=== PATIENT | female | born 1990 | race Caucasian/White ===

== ENCOUNTER 2023-02-01 10:49 | Outpatient (OUT) | payer MEDICARE, MEDICAID, SELFPAY ==
--- NOTE | 2023-02-01 11:24 | PM.CN ---
Consult Note: HPI Data of Consult Patient: known to practice within the last 3 years Consult date: 02/01/23 Requesting Physician: ISELA MCLEOD NP Primary Care Provider: ISELA MCLEOD NP Consult Narrative Reason for consult: low back pain Narrative: Margaret is here for a f/u of low back pain. Had PE in 12/24. She is on Eliquis. Pain is bilat lower back worse with movement and standing. No radiculopathy. No new sensorimotor sx or bowel or bladder issues. No medication SE. We discussed the RFA procedure to lower area than done before. She would like to proceed with this. cc:: CC: ISELA MCLEOD NP Review of Systems ROS Status of ROS 10 or more systems reviewed and unremarkable except as noted in history and below Musculoskeletal Reports: back pain and limited range of motion Exam Constitutional: Common normals: no apparent distress, average body habitus, oriented x3, no limitations, healthy appearing, alert and well nourished General appearance: cooperative and comfortable Orientation/consciousness: Yes awake, Yes oriented to person, Yes oriented to place and Yes oriented to time Neck & C-Spine: Common normals: full ROM General: normal visual inspection Respiratory: Common normals: normal respiratory effort, no retractions and no use of accessory muscles Effort & inspection: able to speak in complete sentences Back & Pelvis: Common normals: thoracic and lumbar spine normal to inspection and straight leg raise negative bilaterally Thoracic spine/upper back: normal to inspection Lumbar spine/lower back: normal to inspection, paraspinal muscle tenderness, paraspinal muscle spasm and straight leg raise negative bilaterally Extremity: Common normals: normal to inspection, full ROM and normal capillary refill General: normal exam except as noted Other: positive facet loading bilat, positive yue bilat, muscle strength 5/5 bilat with intact sensation Psych: Common normals: mental status grossly normal Skin: Common normals: no rashes or lesions noted Assessment and Plan Assessment and Plan (1) Lumbar spondylosis: Plan schedule dx MBB bilat lumbar L4/5, L5/S1
== END 2023-02-01 10:50 ==
PROVIDERS: PCP Nurse Practitioner; Visit Provider Nurse Practitioner
DX: M47.816 Spondylosis without myelopathy or radiculopathy, lumbar region (principal)
CPT/HCPCS: G0463

== ENCOUNTER 2023-02-26 12:00 | Outpatient (OUT) | payer MEDICARE, MEDICAID, SELFPAY ==
--- NOTE | 2023-02-26 12:49 | PM.CN ---
Consult Note: HPI Data of Consult Patient: known to practice within the last 3 years Consult date: 02/26/23 Requesting Physician: Yancy Cancino MD Primary Care Provider: Yancy Cancino MD Consult Narrative Reason for consult: Low back pain Narrative: this is a pleasant 32-year-old female who presents for assessment. She has persistence of axial low back pain that is worsened with standing and walking. She previously had been scheduled for diagnostic bilateral L3, L4, L5 medial branch blocks, but she had a scheduling conflict, so this has not yet been completed. She utilizes Huntington 5 mg twice a day when necessary, and she previously was on gabapentin, which was helpful. She engages in provider directed home exercises. She otherwise denies adverse medication side effects or loss of bowel or bladder control. cc:: CC: Yancy Cancino MD Review of Systems ROS Status of ROS 10 or more systems reviewed and unremarkable except as noted in history and below PFSH PFS Medical History Surgical History Social History Smoking status: Current every day smoker Meds Home Medications and Allergies Home Medications Medication Instructions Recorded Confirmed Type apixaban 5 mg tablet (Eliquis) 5 mg PO BID 02/01/23 02/01/23 History atomoxetine 60 mg capsule 60 mg PO QDAY 02/01/23 02/01/23 History cyclobenzaprine 10 mg tablet 10 mg PO BID 02/01/23 02/01/23 History duloxetine 60 mg capsule,delayed 60 mg PO QDAY 02/01/23 02/01/23 History release (Cymbalta) gabapentin 300 mg capsule 300 mg PO BID 02/01/23 02/01/23 History hydrocodone 5 mg-acetaminophen 325 1 tab PO BID PRN pain 02/01/23 02/01/23 History mg tablet isosorbide mononitrate 10 mg tablet 15 mg PO QDAY 02/01/23 02/01/23 History lamotrigine 25 mg tablet (Lamictal) 25 mg PO QDAY 02/01/23 02/01/23 History metoprolol tartrate 50 mg tablet 50 mg PO BID 02/01/23 02/01/23 History (Lopressor) omeprazole 20 mg capsule,delayed 20 mg PO QDAY 02/01/23 02/01/23 History release pantoprazole 40 mg tablet,delayed 40 mg PO QDAY 02/01/23 02/01/23 History release (Protonix) prazosin 1 mg capsule (Minipress) 1 mg PO QDAY 02/01/23 02/01/23 History rimegepant 75 mg disintegrating 75 mg PO QDAY PRN migraine headache 02/01/23 02/01/23 History tablet (Nurtec ODT) spironolactone 25 mg tablet 25 mg PO QDAY 02/01/23 02/01/23 History sumatriptan succinate 50 mg tablet See Rx Instructions PO .COMPLEX 02/01/23 02/01/23 History Allergies Allergy/AdvReac Type Severity Reaction Status Date / Time amoxicillin Allergy Severe Unknown Verified 02/01/23 13:14 cefaclor [From Ceclor] Allergy Severe Unknown Verified 02/01/23 13:14 ciprofloxacin [From Cipro] Allergy Severe Hives Verified 02/01/23 13:14 Estrogens Allergy Severe Unknown Verified 02/01/23 13:14 Sulfa (Sulfonamide Allergy Severe Hives Verified 02/01/23 13:14 Antibiotics) tetanus and diphtheria Allergy Severe Unknown Verified 02/01/23 13:14 toxoids Exam Constitutional Common normals: no apparent distress, average body habitus, oriented x3, no limitations, healthy appearing, alert and well nourished General appearance: cooperative and comfortable Orientation/consciousness: Yes awake, Yes oriented to person, Yes oriented to place and Yes oriented to time Neck & C-Spine Common normals: full ROM General: normal visual inspection Respiratory Common normals: normal respiratory effort, no retractions and no use of accessory muscles Effort & inspection: able to speak in complete sentences Back & Pelvis Common normals: thoracic and lumbar spine normal to inspection and straight leg raise negative bilaterally Thoracic spine/upper back: normal to inspection Lumbar spine/lower back: normal to inspection, paraspinal muscle tenderness, paraspinal muscle spasm and straight leg raise negative bilaterally Other: tenderness to palpation throughout the lumbar spine and paraspinal muscular trip. Pain is elicited with flexion, extension, and lateral rotation of the lumbar spine. Facet loading maneuvers are positive bilaterally. Coordination remains intact. Gait remains nonantalgic. Extremity Common normals: normal to inspection, full ROM and normal capillary refill General: normal exam except as noted Other: positive facet loading bilat, positive yue bilat, muscle strength 5/5 bilat with intact sensation Psych Common normals: mental status grossly normal Assessment and Plan Assessment and Plan (1) Lumbar spondylosis: Plan this is a pleasant 32-year-old female who presents for assessment. She notes persistence of pain throughout her axial low backk that is worsened with standing and walking. She was previously scheduled for lumbar medial branch blocks, and we discussed that she should continue with this procedure. She is in agreement with this plan. Medications were reviewed. I agreed to prescribe Huntington 5 mg twice a day when necessary, and I will restart her on gabapentin 300 mg 3 times a day. She expressed understanding. She'll follow up after the procedure is completed.
== END 2023-02-26 12:01 | disposition home or self-care (01) ==
LOC: PM 12:00
PROVIDERS: PCP Anesthesiology; Visit Provider Anesthesiology
DX: M47.816 Spondylosis without myelopathy or radiculopathy, lumbar region (principal)
CPT/HCPCS: G0463

== ENCOUNTER 2023-03-12 06:36 | Day surgery (SDC) | payer MEDICARE, MEDICAID, SELFPAY ==
[2023-03-12 07:18] LABS: HCG Qualitative NEGATIVE (NEGATIVE)
[2023-03-12 07:42] VITALS: BP 148/91; PULSE 92; RESP 16; TEMP 36.2; O2SAT 97
[2023-03-12] MEDS: BUPIVACAINE HCL 0.25% PF 25 MG/10 ML VIAL INJ (08:22)
[2023-03-12] MEDS: LIDOCAINE HCL 2% PF 100 MG/5 ML VIAL INJ (08:23)
[2023-03-12] MEDS: TRIAMCINOLONE ACETONIDE 40 MG/ML VIAL INJ (08:23)
--- NOTE | 2023-03-12 08:26 | W.PM.PROCNOT ---
Date of procedure: 03/12/23 Pre-op diagnosis: Lumbosacral spondylosis Post-op diagnosis: same Procedure: Procedure: Bilateral L4-5, L5-S1 medial branch block Medications: Bupivacaine 0.25% 4cc The patient was seen and examined in the preoperative holding area.? An informed consent was obtained and placed on the chart.? The patient was brought to the medical procedure unit and placed in the prone position.? A timeout was completed verifying correct patient, procedure site, positioning, plan, and special equipment.? Using aseptic technique, the needle was placed at left L4. Under direct fluoroscopic visualization a Quincke-tipped spinal needle was advanced to the junction of the superior articulating process with the transverse process at the designated medial branch segment.? Preceded by negative aspiration, the above-mentioned injectate was placed in 1 mL aliquots.? The procedure was repeated at left L5, S1.? The needle was removed and insertion site was covered. The same procedure, at the same levels, was completed on the right side. The patient was taken to the postprocedural recovery area and monitored for an appropriate length of time before found suitable for discharge in the company of a responsible adult. Anesthesia: None Surgeon: Yancy Cancino Pathology: none sent Condition: stable Disposition: no change
[2023-03-12 09:17] VITALS: BP 152/75; BP 154/81; PULSE 88; RESP 18; O2SAT 97; O2SAT 98
== END 2023-03-12 08:30 | disposition home or self-care (01) ==
LOC: SURGOUT 06:37
PROVIDERS: PCP Anesthesiology; Visit Provider Anesthesiology
DX: M47.816 Spondylosis without myelopathy or radiculopathy, lumbar region (principal); R73.03 Prediabetes; E55.9 Vitamin D deficiency, unspecified
CPT/HCPCS: 36415; 64493; 64494; 80053; 80061; 82306; 83036; 83735; 84703; 85025

== ENCOUNTER 2023-03-12 06:37 | Outpatient (OUT) | payer MEDICARE, MEDICAID, SELFPAY ==
[2023-03-12 07:37] LABS: Alanine Aminotransferase 25 U/L (14-59); Albumin Globulin Ratio 0.6; Albumin Level 2.7 g/dL (3.4-5.0); Alkaline Phosphatase 71 U/L (46-116); Anion Gap 10.5; Aspartate Amino Transferase 11 U/L (15-37); BUN Creatinine Ratio 9.4; Bilirubin Total 0.2 mg/dL (0.2-1.0); Calcium 8.4 mg/dL (8.5-10.1); Carbon Dioxide 28.3 mmol/L (21.0-32.0); Chloride 104 mmol/L (98-107); Estimated GFR (African America >60 (>=60); Estimated GFR (Non-African Ame >60 (>=60); Globulin 4.4 g/dL; Glucose 122 mg/dL (74-106); Potassium 3.8 mmol/L (3.5-5.1); Sodium 139 mmol/L (136-145); Total Protein 7.1 g/dL (6.4-8.2)
[2023-03-12 09:30] LABS: Estimated Average Glucose 114 mg/dL; Glycohemoglobin A1C 5.6 % (4.5-6.2)
[2023-03-12 11:24] LABS: Chol HDL Ratio 5.7; Cholesterol 172 mg/dL (<=200); HDL Cholesterol 30 mg/dL (40-60); Magnesium 1.9 mg/dL (1.8-2.4); Triglycerides 136 mg/dL (<=150); VLDL CHOLESTEROL 27.2 mg/dL
[2023-03-12 11:33] LABS: Basophils Percent Auto 0.5 % (0.2-2.0); Eosinophils Absolute Auto 0.2 10^3/uL (0.0-0.7); Eosinophils Percent Auto 2.8 % (0.9-7.0); Hematocrit 42.6 % (36.0-48.0); Hemoglobin 13.4 g/dL (12.0-16.0); Immature Granulocytes Abs Auto 0.04 10^3/uL (0.00-0.03); Immature Granulocytes Pct Auto 0.5 % (0.0-0.5); Lymphocytes Absolute Auto 1.8 10^3/uL (1.2-3.8); Lymphocytes Percent Auto 22.8 % (20.5-60.0); Mean Corpuscular HGB Conc 31.5 g/dL (29.9-35.2); Mean Corpuscular Volume 79.5 fL (81.0-99.0); Mean Platelet Volume 9.6 fL (9.5-13.5); Monocytes Absolute Auto 0.5 10^3/uL (0.3-0.8); Monocytes Percent Auto 5.8 % (1.7-12.0); Neutrophils Absolute Auto 5.4 10^3/uL (1.4-6.5); Neutrophils Percent Auto 67.6 % (43.0-75.0); Platelet Count 337 10^3/uL (150-450); Red Blood Count 5.36 10^6/uL (4.20-5.40); Red Cell Distribution Width 14.9 % (11.0-15.0); White Blood Count 7.9 10^3/uL (4.0-11.0)
== END 2023-03-12 06:38 | disposition home or self-care (01) ==
LOC: LAB 06:40
PROVIDERS: PCP Nurse Practitioner Primary Care; Visit Provider Nurse Practitioner Primary Care
DX: R73.03 Prediabetes (principal); E55.9 Vitamin D deficiency, unspecified
CPT/HCPCS: 36415; 80053; 80061; 82306; 83036; 83735; 85025

== ENCOUNTER 2023-03-22 12:22 | Outpatient (OUT) | payer MEDICARE, MEDICAID, SELFPAY ==
--- NOTE | 2023-03-22 12:25 | PM.CN ---
Consult Note: HPI Data of Consult Patient: known to practice within the last 3 years Consult date: 03/22/23 Requesting Physician: ISELA MCLEOD NP Primary Care Provider: CHERRI THOMPSON Consult Narrative Narrative: Patient is here for f/u of initial bilateral lumbar MBB L3,4,5 mejia 03/12/23. She had 100% relief for several hours after procedure and increased fx. She would like to proceed with second dx MBB of same area with eventual RFA. She also resumed gabapentin and feels this is helping. Also seeing PCP and working on weight loss. Has had 20 pound intentional weight loss so far. Pain is bilat lumbar area with no radicular sx . Denies adverse SE of medications. Medication regimen assists patient with being better able to perform ADLS. No new sensorimotor or bowel or bladder issues. cc:: CC: ISELA MCLEOD NP Review of Systems ROS Status of ROS 10 or more systems reviewed and unremarkable except as noted in history and below Musculoskeletal Reports: back pain PFSH PFSH Medical History Surgical History Social History Smoking status: Current every day smoker Meds Home Medications and Allergies Home Medications Medication Instructions Recorded Confirmed Type apixaban 5 mg tablet (Eliquis) 5 mg PO BID 02/01/23 03/12/23 History atomoxetine 60 mg capsule 60 mg PO QDAY 02/01/23 03/12/23 History cyclobenzaprine 10 mg tablet 10 mg PO BID 02/01/23 02/01/23 History duloxetine 60 mg capsule,delayed 60 mg PO QDAY 02/01/23 03/12/23 History release (Cymbalta) gabapentin 300 mg capsule 300 mg PO Q8H 02/01/23 02/26/23 History hydrocodone 5 mg-acetaminophen 325 1 tab PO BID PRN pain 02/01/23 03/12/23 History mg tablet isosorbide mononitrate 10 mg tablet 15 mg PO QDAY 02/01/23 03/12/23 History lamotrigine 25 mg tablet (Lamictal) 25 mg PO QDAY 02/01/23 03/12/23 History metoprolol tartrate 50 mg tablet 50 mg PO BID 02/01/23 03/12/23 History (Lopressor) omeprazole 20 mg capsule,delayed 20 mg PO QDAY 02/01/23 02/01/23 History release pantoprazole 40 mg tablet,delayed 40 mg PO QDAY 02/01/23 03/12/23 History release (Protonix) prazosin 1 mg capsule (Minipress) 1 mg PO QDAY 02/01/23 03/12/23 History rimegepant 75 mg disintegrating 75 mg PO QDAY PRN migraine headache 02/01/23 02/01/23 History tablet (Nurtec ODT) spironolactone 25 mg tablet 25 mg PO QDAY 02/01/23 03/12/23 History sumatriptan succinate 50 mg tablet See Rx Instructions PO .COMPLEX 02/01/23 03/12/23 History Allergies Allergy/AdvReac Type Severity Reaction Status Date / Time amoxicillin Allergy Severe Unknown Verified 02/01/23 13:14 cefaclor [From Ceclor] Allergy Severe Unknown Verified 02/01/23 13:14 ciprofloxacin [From Cipro] Allergy Severe Hives Verified 02/01/23 13:14 Estrogens Allergy Severe Unknown Verified 02/01/23 13:14 Sulfa (Sulfonamide Allergy Severe Hives Verified 02/01/23 13:14 Antibiotics) tetanus and diphtheria Allergy Severe Unknown Verified 02/01/23 13:14 toxoids Exam Constitutional Documenting provider has reviewed patient's vital signs: yes Common normals: no apparent distress, oriented x3, no limitations, healthy appearing, alert and well nourished General appearance: cooperative, comfortable and well developed Nutritional appearance: overweight Orientation/consciousness: Yes awake, Yes oriented to person, Yes oriented to place and Yes oriented to time HENMT Common normals: normocephalic and moist oral mucous membranes Respiratory Common normals: normal respiratory effort, no retractions and no use of accessory muscles Effort & inspection: able to speak in complete sentences and symmetric chest movement Back & Pelvis Lumbar spine/lower back: normal to inspection, ROM limited, pain with ROM, paraspinal muscle tenderness, paraspinal muscle spasm and straight leg raise negative bilaterally Other: positive lumbar facet loading pain bilat muscle strength 5/5 bilat with intact sensation bilat LE Extremity Common normals: normal to inspection, full ROM, normal capillary refill, no joint enlargement and no pedal edema Assessment and Plan Assessment and Plan (1) Lumbar spondylosis: (2) Muscle spasm: Plan schedule for second dx lumbar MBB bilat L3,4,5 under fluoroscopy with ultimate progression to thermal RFA
== END 2023-03-22 12:23 | disposition home or self-care (01) ==
LOC: PM 12:22
PROVIDERS: PCP Nurse Practitioner Primary Care; Visit Provider Nurse Practitioner
DX: M47.816 Spondylosis without myelopathy or radiculopathy, lumbar region (principal); M62.838 Other muscle spasm
CPT/HCPCS: G0463

== ENCOUNTER 2023-05-28 06:05 | Day surgery (SDC) | payer MEDICARE, MEDICAID, SELFPAY ==
[2023-05-28 06:56] VITALS: BP 140/83; PULSE 90; RESP 16; TEMP 36; O2SAT 97
[2023-05-28 07:34] LABS: HCG Qualitative NEGATIVE (NEGATIVE)
[2023-05-28] MEDS: TRIAMCINOLONE ACETONIDE 40 MG/ML VIAL INJ (07:49)
[2023-05-28] MEDS: BUPIVACAINE HCL 0.25% PF 25 MG/10 ML VIAL INJ (07:49)
[2023-05-28] MEDS: LIDOCAINE HCL 2% PF 100 MG/5 ML VIAL INJ (07:49)
[2023-05-28 07:51] VITALS: BP 131/74; BP 139/76; PULSE 80; PULSE 85; RESP 18; O2SAT 97; O2SAT 98
--- NOTE | 2023-05-28 07:52 | W.PM.PROCNOT ---
Date of procedure: 05/28/23 Pre-op diagnosis: lumbar spondylosis Post-op diagnosis: same as pre-op Procedure: Procedure: Bilateral L4-5, L5-S1 medial branch block (bilateral L3, 4, 5) Medications: Bupivacaine 0.25% 4cc The patient was seen and examined in the preoperative holding area.? An informed consent was obtained and placed on the chart.? The patient was brought to the medical procedure unit and placed in the prone position.? A timeout was completed verifying correct patient, procedure site, positioning, plan, and special equipment.? Using aseptic technique, the needle was placed at left L4. Under direct fluoroscopic visualization a Quincke-tipped spinal needle was advanced to the junction of the superior articulating process with the transverse process at the designated medial branch segment.? Preceded by negative aspiration, the above-mentioned injectate was placed in 1 mL aliquots.? The procedure was repeated at left L5, S1.? The needle was removed and insertion site was covered. The same procedure, at the same levels, was completed on the right side. The patient was taken to the postprocedural recovery area and monitored for an appropriate length of time before found suitable for discharge in the company of a responsible adult. Anesthesia: Local Surgeon: Yancy Cancino Pathology: none sent Condition: stable Disposition: no change
== END 2023-05-28 07:56 | disposition home or self-care (01) ==
PROVIDERS: PCP Nurse Practitioner Primary Care; Visit Provider Anesthesiology
DX: M47.816 Spondylosis without myelopathy or radiculopathy, lumbar region (principal)
CPT/HCPCS: 36415; 64493; 64494; 84703

== ENCOUNTER 2023-06-13 12:04 | Outpatient (OUT) | payer MEDICARE, MEDICAID, SELFPAY ==
--- NOTE | 2023-06-13 12:07 | P.CN_ITS ---
Consult Note: HPI Data of Consult Requesting Physician: Brenda Gonzalez NP Primary Care Provider: ABBY BYNUM APRN-[employer]ING [employer] Consult Narrative Reason for consult: f/u Narrative: Margaret Grullon a pleasant 32 year old female presents for evaluation and management of chronic low back pain. Patient recently underwent bilateral L4-5 L5-S1 (L3, 4, 5) MBB #2 with 80-90% pain relief and functional improvement immediately following and 5-6 hours after the procedure. Today rating pain 8- 9/10 in low back. Patient would like to discuss proceeding with thermal RFA of bilateral L4-5 L5-S1. cc:: CC: Brenda Gonzalez NP Review of Systems ROS Status of ROS 10 or more systems reviewed and unremarkable except as noted in history and below Musculoskeletal Reports: back pain PFSH PFSH Medical History Surgical History H/O partial thyroidectomy ?E89.0 - Postprocedural hypothyroidism (ICD-10) History of appendectomy ?Z90.49 - Acquired absence of other specified parts of digestive tract (ICD- 10) Hx of cholecystectomy ?Z90.49 - Acquired absence of other specified parts of digestive tract (ICD- 10) Hx of tonsillectomy ?Z90.89 - Acquired absence of other organs (ICD-10) [place] teeth extracted ?K08.409 - Partial loss of teeth, unspecified cause, unspecified class (ICD- 10) Social History Smoking status: Current every day smoker Meds Home Medications and Allergies Home Medications Medication Instructions Recorded Confirmed Type apixaban 5 mg tablet (Eliquis) 5 mg PO BID 02/01/23 05/28/23 History atomoxetine 60 mg capsule 60 mg PO QDAY 02/01/23 05/28/23 History cyclobenzaprine 10 mg tablet 10 mg PO BID 02/01/23 05/28/23 History duloxetine 60 mg capsule,delayed 60 mg PO QDAY 02/01/23 05/28/23 History release (Cymbalta) gabapentin 300 mg capsule 300 mg PO Q8H 02/01/23 05/28/23 History hydrocodone 5 mg-acetaminophen 325 1 tab PO BID PRN pain 02/01/23 05/28/23 History mg tablet isosorbide mononitrate 10 mg tablet 15 mg PO QDAY 02/01/23 05/28/23 History lamotrigine 25 mg tablet (Lamictal) 25 mg PO QDAY 02/01/23 05/28/23 History metoprolol tartrate 50 mg tablet 50 mg PO BID 02/01/23 05/28/23 History (Lopressor) omeprazole 20 mg capsule,delayed 20 mg PO QDAY 02/01/23 05/28/23 History release prazosin 1 mg capsule (Minipress) 1 mg PO QDAY 02/01/23 05/28/23 History rimegepant 75 mg disintegrating 75 mg PO QDAY PRN migraine headache 02/01/23 05/28/23 History tablet (Nurtec ODT) spironolactone 25 mg tablet 25 mg PO QDAY 02/01/23 05/28/23 History sumatriptan succinate 50 mg tablet See Rx Instructions PO .COMPLEX 02/01/23 05/28/23 History Allergies Allergy/AdvReac Type Severity Reaction Status Date / Time amoxicillin Allergy Severe Unknown Verified 02/01/23 13:14 cefaclor [From Ceclor] Allergy Severe Unknown Verified 02/01/23 13:14 ciprofloxacin [From Cipro] Allergy Severe Hives Verified 02/01/23 13:14 Estrogens Allergy Severe Unknown Verified 02/01/23 13:14 Sulfa (Sulfonamide Allergy Severe Hives Verified 02/01/23 13:14 Antibiotics) tetanus and diphtheria Allergy Severe Unknown Verified 02/01/23 13:14 toxoids Exam Constitutional Documenting provider has reviewed patient's vital signs: yes Common normals: no apparent distress, oriented x3, no limitations, healthy appearing, alert and well nourished General appearance: cooperative, comfortable and well developed Nutritional appearance: obese Orientation/consciousness: Yes awake, Yes oriented to person, Yes oriented to place and Yes oriented to time HENMT Common normals: normocephalic and moist oral mucous membranes Respiratory Common normals: normal respiratory effort, no retractions and no use of accessory muscles Effort & inspection: able to speak in complete sentences and symmetric chest movement Back & Pelvis Lumbar spine/lower back: normal to inspection, ROM limited, pain with ROM, paraspinal muscle tenderness, paraspinal muscle spasm and straight leg raise negative bilaterally Other: positive lumbar facet loading pain bilat muscle strength 5/5 bilat with intact sensation bilat LE Extremity Common normals: normal to inspection, full ROM, normal capillary refill, no joint enlargement and no pedal edema Assessment and Plan Assessment and Plan (1) Lumbar spondylosis: Assessment and Plan: The patient has had over 3 months of moderate to severe low back pain with functional impairment and inadequate response to conservative care including NSAIDS (unless there are contraindication such as concurrent blood thinners), multiple oral or topical pain medications, and home exercise program/physical therapy.? Patient has completed >6 weeks of guided home exercise program and/or formal physical therapy program without relief of their symptoms.? We discussed the risks and benefits of the procedure with the patient, and we are NOT planning on using sedation as outlined in the guidelines from Medicare unless there is a documented reason that sedation would be strongly recommended.?? The procedure will be completed with fluoroscopic guidance.? (2) Muscle spasm: Plan proceed with bilateral thermal L3,4,5 RFA under fluoroscopy continue HEP continue current medication regimen f/u 1 month after RFA
== END 2023-06-13 12:05 | disposition home or self-care (01) ==
LOC: PM 12:04
PROVIDERS: PCP Nurse Practitioner Primary Care; Visit Provider Nurse Practitioner
DX: M47.816 Spondylosis without myelopathy or radiculopathy, lumbar region (principal); M62.838 Other muscle spasm
CPT/HCPCS: G0463

== ENCOUNTER 2023-06-25 07:11 | Day surgery (SDC) | payer MEDICARE, MEDICAID, SELFPAY ==
[2023-06-25 07:34] LABS: HCG Qualitative NEGATIVE (NEGATIVE)
[2023-06-25 07:58] VITALS: BP 170/89; PULSE 99; RESP 16; TEMP 36.1; O2SAT 97
[2023-06-25 08:46] VITALS: BP 179/80; PULSE 88; RESP 16; O2SAT 98
[2023-06-25] MEDS: BUPIVACAINE HCL 0.25% PF 25 MG/10 ML VIAL INJ (08:51)
[2023-06-25] MEDS: LIDOCAINE HCL 2% 400 MG/20 ML MDV 15 ML INJ (08:51)
[2023-06-25] MEDS: TRIAMCINOLONE ACETONIDE 40 MG/ML VIAL INJ (08:52)
[2023-06-25 08:53] VITALS: BP 174/89; PULSE 88; RESP 18; O2SAT 96
--- NOTE | 2023-06-25 09:02 | P.ON_ITS ---
Date of procedure: 06/25/23 Pre-op diagnosis: Lumbar spondylosis Post-op diagnosis: same as pre-op Procedure: Procedure: Bilateral L4-5, L5-S1 (bilateral L3, 4, 5) radiofrequency ablation Medications: Bupivacaine 0.25% 6cc, lidocaine 2% 5cc, kenalog 80mg The patient was seen and examined in the preoperative holding area.? The site was marked.? Written informed consent was obtained and placed on the chart.? The patient was brought to the medical procedure unit and placed in the prone position.? A timeout was completed verifying correct patient, procedure, positioning, and special requirements.? The skin overlying the target points, the designated medial branch, were prepped and draped in the usual sterile fashion.? The target point was achieved with a 20-gauge 15 cm with a 10 mm curved active tip radiofrequency cannula under direct fluoroscopic visualization.? The needle was inserted at level L4 on the right side. Needle tip position was confirmed with lateral fluoroscopic position.? Motor stimulation was carried out at 2 Hz up to 5 volts with the absence of extremity activity.? This was repeated at level L5, S1 on right side.?? Sensory stimulation was carried out.? Concordant pain was realized at the above- mentioned sites.? Then radiofrequency lesioning was carried out times 90 seconds at 80 degrees times 2 lesions at each level.? The radiofrequency probe was removed prior to cannula removal.? The above-mentioned injectate was placed in 1 mL increments.? The needle was removed. The same procedure, with the same steps, was then completed on the left side at the same levels. Insertion sites were covered.? The patient was taken to the postoperative recovery area and monitored for an appropriate length of time before being found suitable for discharge in the company of a responsible adult. Anesthesia: Local Surgeon: Yancy Cancino Pathology: none sent Condition: stable Disposition: no change
== END 2023-06-25 09:05 | disposition home or self-care (01) ==
PROVIDERS: PCP Nurse Practitioner Primary Care; Visit Provider Anesthesiology
DX: M47.816 Spondylosis without myelopathy or radiculopathy, lumbar region (principal)
CPT/HCPCS: 36415; 64635; 64636; 84703; J1100

== ENCOUNTER 2023-08-02 14:58 | Outpatient (OUT) | payer MEDICARE, MEDICAID, SELFPAY ==
--- NOTE | 2023-08-02 15:23 | P.CN_ITS ---
Consult Note: HPI Data of Consult Patient: known to practice within the last 3 years Requesting Physician: Brenda Gonzalez NP Primary Care Provider: ABBY BYNUM APRN-DAVID Consult Narrative Reason for consult: f/u Narrative: Margaret Grullon a pleasant 32 year old female presents for evaluation and management of chronic low back pain. Patient recently underwent bilateral L4-5 L5-S1 (L3, 4, 5) thermal RFA with 60% ongoing pain relief. Continues to have muscle tightness and superficial pain in low back today 02/10. Patient has not been able to tolerate taking medications regularly due to ongoing stomach issues (nausea/vomiting/reflux) cc:: CC: Brenda Gonzalez NP Review of Systems ROS Status of ROS 10 or more systems reviewed and unremarkable except as noted in history and below Gastrointestinal Reports: nausea, vomiting and heartburn Musculoskeletal Reports: back pain and muscle cramps PFSH PFSH Medical History Surgical History H/O partial thyroidectomy ?E89.0 - Postprocedural hypothyroidism (ICD-10) History of appendectomy ?Z90.49 - Acquired absence of other specified parts of digestive tract (ICD- 10) Hx of cholecystectomy ?Z90.49 - Acquired absence of other specified parts of digestive tract (ICD- 10) Hx of tonsillectomy ?Z90.89 - Acquired absence of other organs (ICD-10) [place] teeth extracted ?K08.409 - Partial loss of teeth, unspecified cause, unspecified class (ICD- 10) Social History Smoking status: Current every day smoker Meds Home Medications and Allergies Home Medications Medication Instructions Recorded Confirmed Type apixaban 5 mg tablet (Eliquis) 5 mg PO BID 02/01/23 06/25/23 History atomoxetine 60 mg capsule 60 mg PO QDAY 02/01/23 06/25/23 History cyclobenzaprine 10 mg tablet 10 mg PO BID 02/01/23 06/25/23 History duloxetine 60 mg capsule,delayed 60 mg PO QDAY 02/01/23 06/25/23 History release (Cymbalta) gabapentin 300 mg capsule 300 mg PO Q8H 02/01/23 06/25/23 History hydrocodone 5 mg-acetaminophen 325 1 tab PO BID PRN pain 02/01/23 06/25/23 History mg tablet isosorbide mononitrate 10 mg tablet 15 mg PO QDAY 02/01/23 06/25/23 History lamotrigine 25 mg tablet (Lamictal) 25 mg PO QDAY 02/01/23 06/25/23 History metoprolol tartrate 50 mg tablet 50 mg PO BID 02/01/23 06/25/23 History (Lopressor) omeprazole 20 mg capsule,delayed 20 mg PO QDAY 02/01/23 06/25/23 History release prazosin 1 mg capsule (Minipress) 1 mg PO QDAY 02/01/23 06/25/23 History rimegepant 75 mg disintegrating 75 mg PO QDAY PRN migraine headache 02/01/23 06/25/23 History tablet (Nurtec ODT) spironolactone 25 mg tablet 25 mg PO QDAY 02/01/23 06/25/23 History sumatriptan succinate 50 mg tablet See Rx Instructions PO .COMPLEX 02/01/23 06/25/23 History Allergies Allergy/AdvReac Type Severity Reaction Status Date / Time amoxicillin Allergy Severe Unknown Verified 06/25/23 08:05 cefaclor [From Ceclor] Allergy Severe Unknown Verified 06/25/23 08:05 ciprofloxacin [From Cipro] Allergy Severe Hives Verified 06/25/23 08:05 Estrogens Allergy Severe Unknown Verified 06/25/23 08:05 Sulfa (Sulfonamide Allergy Severe Hives Verified 06/25/23 08:05 Antibiotics) tetanus and diphtheria Allergy Severe Unknown Verified 06/25/23 08:05 toxoids Exam Constitutional Documenting provider has reviewed patient's vital signs: yes Common normals: no apparent distress, oriented x3, no limitations, healthy appearing, alert and well nourished General appearance: cooperative, comfortable and well developed Nutritional appearance: obese Orientation/consciousness: Yes awake, Yes oriented to person, Yes oriented to place and Yes oriented to time HENMT Common normals: normocephalic and moist oral mucous membranes Respiratory Common normals: normal respiratory effort, no retractions and no use of accessory muscles Effort & inspection: able to speak in complete sentences and symmetric chest movement Back & Pelvis Lumbar spine/lower back: normal to inspection, ROM limited, pain with ROM, paraspinal muscle tenderness and straight leg raise negative bilaterally Other: positive lumbar facet loading pain bilat muscle strength 5/5 bilat with intact sensation bilat LE Extremity Common normals: normal to inspection, full ROM, normal capillary refill, no joint enlargement and no pedal edema Assessment and Plan Assessment and Plan (1) Lumbar spondylosis: (2) Muscle spasm: Plan continue current medications as tolerated continue HEP start tens unit to low back f/u with GI specialist for ongoing issues f/u 1 month
== END 2023-08-02 14:59 | disposition home or self-care (01) ==
LOC: PM 15:01
PROVIDERS: PCP Nurse Practitioner Primary Care; Visit Provider Nurse Practitioner
DX: M47.816 Spondylosis without myelopathy or radiculopathy, lumbar region (principal); M62.838 Other muscle spasm
CPT/HCPCS: G0463

== ENCOUNTER 2023-09-06 10:59 | Outpatient (OUT) | payer MEDICARE, MEDICAID, SELFPAY ==
--- OUTSIDE RECORDS SUMMARY | 2023-09-06 11:07 | XMS_ITS | CCD ---
Author Name Unknown Address [address] [place] [address] Organization [facility] Care Team Providers Care Hair Blender Name Role Phone Elizabeth Terrell Primary Care Provider SANTIAGO HOLGUIN Admitting Unavailable ELIZABETH TERRELL Referring Unavailable ELIZABETH TERRELL Primary Care Unavailable SANTIAGO HOLGUIN Attending Unavailable ELIZABETH TERRELL Primary Care Unavailable SANTIAGO HOLGUIN Attending Unavailable MD John Mack Attending Provider [phone] BRIAN Flanagan Primary Care Provider DO Dominique Garrison Attending Provider [phone] Mack, John Attending Unavailable Pam Flanagan Primary Care Unavailable Mack, John Admitting Unavailable Mack, John Attending Unavailable Mack, John Admitting Unavailable Pam Flanagan Primary Care Unavailable Mack, John Attending Unavailable Mack, John Admitting Unavailable Pam Flanagan Primary Care Unavailable Mack, John Attending Unavailable Mack, John Admitting Unavailable Pam Flanagan Primary Care Unavailable Mack, John Admitting Unavailable Mack, John Attending Unavailable Pam Flanagan Primary Care Unavailable Mack, John Attending Unavailable Pam Flanagan Primary Care Unavailable Mack, John Admitting Unavailable Dominique Garrison Attending Unavailable Dominique Garrison Admitting Unavailable Pam Flanagan Primary Care Unavailable Mack, John Attending Unavailable Mack, John Admitting Unavailable Pam Flanagan Primary Care Unavailable Mack, John Attending Unavailable Pam Flanagan Primary Care Unavailable Mack, John Admitting Unavailable [facility] Primary Care Unava ilmello KAPOOR ., DR KACEY Gray Admitting Unavailable ANTWON ., DR KACEY Gray Consulting Unavailable ANTWON ., DR KACEY Gray Attending Unavailable KAPOOR ., DR KACEY Gray Admitting Unavailable CERVANTES ., ACE Consulting Unavailable [facility] Unavailable KAPOOR ., DR KACEY Gray Attending Unavailable [facility] Unavailable CERVANTES ., ACE Consulting Unavailable KAPOOR ., DR KACEY Gray Admitting Unavailable [place] ., DR KACEY Gray Attending Unavailable SHAMMO, WICHITA Primary Care Unavailable LAKSHMIPATHY ., NARENDRANATH Attending Norma vailable LAKSHMIPATHY ., NARENDRANATH Admitting Norma vailable KAPOOR ., DR KACEY Gray Admitting Unavailable SHAMMO, NIKOLAS Primary Care Unavailable CERVANTES ., ACE Consulting Unavailable [place] ., DR KACEY Gray Attending Unavailable SHAMMO, NIKOLAS Admitting Unavailable SHAMMO, WICHITA Primary Care Unavailable SHAMMO, NIKOLAS Attending Unavailable [facility] Unava ilable CERVANTES ., ACE Attending Unavailable CERVANTES ., ACE Admitting Unavailable WEST, DR KATYA Rabago Consulting Unavailable CERVANTES ., ACE Consulting Unavailable SHAMMO, NIKOLAS Admitting Unavailable SHAMMO, NIKOLAS Primary Care Unavailable SHAMMO, NIKOLAS Consulting Unavailable SHAMMO, NIKOLAS Attending Unavailable SHAMMO, NIKOLAS Primary Care Unavailable [place], [place] Consulting Unavailable [place] Attending Unavailable [place] Admitting Unavailable SHAMMO, NIKOLAS Primary Care Unavailable TRAN, DR NATHAN Linda Consulting Unavailabl e TRAN, DR NATHAN Linda Attending Unavailabl e TRAN, DR NATHAN Linda Admitting Unavailabl e DIANN, DR SANIA Khanna Consulting Unavailable MICHELE ., DELONTE Attending Unavailable [facility] Unava ilable MICHELE ., DELONTE Admitting Unavailable RANI .CHINYERE Consulting Unavailabl e DEREK MIRELES Consulting Unavailable K[place]OR ., DR KACEY Gray Attending Unavailable [facility] Unava ilable CERVANTES ., ACE Consulting Unavailable [place] ., DR KACEY Gray Admitting Unavailable Barak CORTES, Yancy Cunningham Attending Unavailable Barak CORTES, Yancy Cunningham Attending Unavailable Barak CORTES, Yancy Cunningham Attending Unavailable Barak CORTES, Yancy Cunningham Attending Unavailable Allergies Allergy Classification Reported Allergen(s) Allergy Type Date of Onset Reaction(s) Facility (4 sources) Allopurinol; Translations: [ALLOPURINOL] Drug Allergy 05-12-20 [facility] (7 sources) Amoxicillin; Translations: [AMOXICILLIN] Drug Allergy 02-29-20 16 Hives [facility] (7 sources) Cefaclor; Translations: [CEFACLOR] Drug Allergy 04-28-20 13 Hives, Other (See Comments) [facility] (2 sources) Ciprofloxacin; Translations: [CIPROFLOXACIN] Drug Allergy 06-03-20 [facility] (4 sources) Estrogens; Translations: [ESTROGENS] Drug Allergy 01-29-20 15 Other (See Comments) [facility] (2 sources) Penicillins; Translations: [PENICILLINS] Propensity to adverse reactions to drug 02-15-20 13 Hives, Rash [facility] (2 sources) Sulfonamides (Antibiotic); Translations: [SULFA (SULFONAMIDE ANTIBIOTICS)] Propensity to adverse reactions to drug 06-03-20 [facility] (5 sources) Sulfamethoxazole Drug Allergy 02-01-20 22 [facility] (5 sources) Trimethoprim Drug Allergy 02-01-20 [facility] (5 sources) DPT Allergy to substance 02-01-20 Redness of Skin [facility] (5 sources) surgical kory Allergy to substance 02-01-20 [facility] (5 sources) hormones Propensity to adverse reactions 02-01-20 will cause blood clots [facility] (2 sources) Amoxicillin Drug Allergy [facility] (2 sources) Cefaclor Drug Allergy [facility] (2 sources) Ciprofloxacin Drug Allergy 09-03-19 [facility] (2 sources) Sulfonamides (Antibiotic) Drug allergy (disorder) 09-03-19 [facility] Medications Current Medications Medication Drug Class(es) Dates Sig (Normalized) Sig (Original) acetaminophen 325 mg / HYDROcodone bitartrate 5 mg oral tablet (20 sources) Opioid Agonist Start: 04-10-2022 take 1 tablet by mouth every six hours Hydrocodone-Aceta minophen Active 1 TAB PO Q6H 30 03April 10, 2022 Start: 04-10-2022 take 1 tablet by christina th every six hours Hydrocodone-Acetaminophen Active 1 TAB P O Q6H 28 April 10, 2022 Start: 04-10-2022 take 1 tablet by christina th every six hours Hydrocodone-Acetaminophen Active 1 TAB P O Q6H 30 03April 10, 2022 Start: 02-13-2022 End: 04-10-2022 take 1 tablet by mouth every six hours Hydrocodone-Acetaminophen Discontinued 1 TAB PO Q6H 30 03March 13, 2022 April 10, 2022 12:38pm Start: 01-31-2022 take 1 tablet by christina th twice daily Hydrocodone-Acetaminophen Active 1 TAB P O Twice daily January 30, 2022 11:00pm Start: 07-20-2020 take 1 tablet by christina th twice daily as needed HYDROcodone-acetaminophen (NORCO) 5-325 mg per tablet TAKE 1 TABLET BY MOUTH TWICE DAILY NEEDED MUST LAST 30 DAYS 0 07/20/2020 Active atomoxetine 60 mg oral capsule (5 sources) Norepinephrine Reuptake Inhibitor Start: 01-31-2022 take 60 mg by mouth once daily in the morning Atomoxetine Active 60 MG PO Every morning January 30, 2022 11:00pm baclofen 10 mg oral tablet (5 sources) gamma-Aminobutyric Acid-ergic Agonist Start: 01-31-2022 take 10 mg by mouth once daily at bedtime Baclofen Active 10 MG PO Daily at bedtime January 30, 2022 11:00pm cholecalciferol 0.025 mg oral tablet (6 sources) Vitamin D Start: 01-31-2022 take 1 tablet by mouth once daily Cholecalciferol (Vitamin D3) (Vitamin D3) 25 mcg (1,000 unit) Tablet Active 25 MCG PO Daily January 30, 2022 11:00pm Start: 08-02-2020 End: 08-02-2021 take 1 capsule by mouth once daily cholecalciferol, vitamin D3, 25 mcg (1,000 unit) capsule Take 1 (one) capsule (1,000 Units total) by mouth daily . 30 capsule 11 08/02/2020 08/02/2021 Active ferrous sulfate 325 mg oral tablet (5 sources) Start: 01-31-2022 take 1 tablet by mouth once daily Ferrous Sulfate (Iron) 325 mg (65 mg iron) Tablet Active 325 MG PO Daily January 30, 2022 11:00pm gabapentin 300 mg oral capsule (5 sources) Anti-epilepti c Agent Start: 01-31-2022 take 600 mg by mouth once daily at bedtime Gabapentin Active 600 MG PO Daily at bedtime January 30, 2022 11:00pm hydroCHLOROthiazide 25 mg oral tablet (6 sources) Thiazide Diuretic Start: 01-31-2022 take 25 mg by mouth once daily in the morning Hydrochlorothiazide Active 25 MG PO Every morning January 30, 2022 11:00pm take 1 tablet by mouth once poncho y hydroCHLOROthiazide (HYDRODIURIL) 25 MG tablet Take 25 mg by mouth daily . 0 Active hydrOXYzine pamoate 25 mg oral capsule (5 sources) Antihistamine Start: 01-31-2022 take 25 mg by mouth four times daily Hydroxyzine Pamoate Active 25 MG PO Four times daily January 30, 2022 11:00pm 24 hr isosorbide mononitrate 30 mg extended release oral tablet (6 sources) Nitrate Vasodilator Start: 01-31-2022 take 15 mg by mouth once daily in the morning Isosorbide Mononitrate Active 15 MG PO Every morning January 30, 2022 11:00pm Start: 06-01-2020 take 1 tablet by christina th once daily, then take 2 tablets by mouth every twenty-four hours isosorbide mononitrate (IMDUR) 30 MG 24 hr tablet Take 15 mg by mouth daily . 0 06/01/2020 Active lidocaine hydrochloride 30 mg/ml topical cream (1 source) Antiarrhythmic, Amide Local Anesthetic Start: 06-21-2018 lidocaine HCL 3 % Crea APPLY TO THE AFFECTED AREA(S) BY TOPICAL ROUTE 2 TIMES PER DAY . 0 06/21/2018 Active metoprolol tartrate 25 mg oral tablet (6 sources) beta-Adrenergic Senthil Start: 01-31-2022 take 25 mg by mouth twice daily Metoprolol Tartrate Active 25 MG PO Twice daily January 30, 2022 11:00pm Start: 07-31-2016 take 1 tablet by christina th twice daily metoprolol tartrate (LOPRESSOR) 25 MG tablet Take 25 mg by mouth 2 (two) times a day . 0 07/31/2016 Active omeprazole 20 mg delayed release oral capsule (5 sources) Proton Pump Inhibitor Start: 01-31-2022 take 20 mg by mouth once daily in the morning Omeprazole Active 20 MG PO Every morning January 30, 2022 11:00pm rivaroxaban 20 mg oral tablet (5 sources) Factor Xa Inhibitor Start: 01-31-2022 take 1 tablet by mouth once daily Rivaroxaban (Xarelto) 20 mg tablet Active 20 MG PO Daily January 30, 2022 11:00pm spironolactone 25 mg oral tablet (6 sources) Aldosterone Antagonist Start: 01-31-2022 take 25 mg by mouth once daily in the morning Spironolactone Active 25 MG PO Every morning January 30, 2022 11:00pm Start: 05-12-2020 take 1 tablet by christina th once daily spironolactone (ALDACTONE) 25 MG tablet Take 25 mg by mouth daily . 0 05/12/2020 Active sucralfate 1000 mg oral tablet (6 sources) Aluminum Complex Start: 01-31-2022 take 1 g by mouth twice daily Sucralfate Active 1 GM PO Twice daily January 30, 2022 11:00pm take 1 tablet by mouth four time s daily sucralfate (CARAFATE) 1 gram tablet Take 1 g by mouth 4 (four) times a day . 0 Active Problems Active Problems Problem Classification Problem Date Documented Date Episodic/Chronic Anxiety disorders (1 source) Anxiety disorder, unspecified; Translations: [ANXIETY DISORDER UNSPECIFIED] Onset: 11-24-19 Chronic Cardiac dysrhythmias (4 sources) Tachycardia, unspecified; Translations: [TACHYCARDIA UNSPECIFIED] Onset: 11-23-19 Episodic Coagulation and hemorrhagic disorders (1 source) Activated protein C resistance; Translations: [ACTIVATED PROTEIN C RESISTANCE] Onset: 11-24-19 Chronic Complications of surgical procedures or medical care (1 source) Postprocedural hypothyroidism; Translations: [POSTPROCEDURAL HYPOTHYROIDISM] Onset: 11-24-19 Chronic Esophageal disorders (1 source) Gastro-esophageal reflux disease without esophagitis; Translations: [GERD WITHOUT ESOPHAGITIS] Onset: 11-24-19 Chronic Essential hypertension (1 source) Essential (primary) hypertension; Translations: [ESSENTIAL PRIMARY HYPERTENSION] Onset: 11-24-19 Chronic Fluid and electrolyte disorders (1 source) Hypokalemia; Translations: [HYPOKALEMIA] Onset: 11-24-19 Episodic Headache; including migraine (4 sources) Headache; including migraine; Translations: [HEADACHE UNSPECIFIED] Onset: 09-26-19 Heart valve disorders (1 source) Nonrheumatic mitral (valve) insufficiency; Translations: [NONRHEUMATIC MITRAL INSUFFICIENCY] Onset: 09-28-19 Chronic Immunizations and screening for infectious disease (2 sources) Encounter for screening for other viral diseases; Translations: [Encounter for screening for human immunodeficiency virus [HIV]] Onset: 10-24-19 Episodic Malaise and fatigue (2 sources) Fatigue; Translations: [Chronic fatigue] Onset: 08-02-2008-02-2020 Episodic Mood disorders (1 source) Mood disorders; Translations: [DEPRESSION UNSPECIFIED] Onset: 09-28-19 Nutritional deficiencies (2 sources) Vitamin D deficiency; Translations: [Vitamin D insufficiency] Onset: 08-02-2008-02-2020 Chronic Other aftercare (1 source) Other senior living (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 therapy; Translations: [OTH [facility] CURRENT DRUG THERAPY] Onset: 11-24-19 Episodic Other aftercare (1 source) retirement (current) use of anticoagulants; Translations: [BLUEPRINTER CURRNT USE ANTICOAGULANTS] Onset: 11-24-19 Episodic Other diseases of veins and lymphatics (1 source) Venous insufficiency (chronic) (peripheral); Translations: [VENOUS INSUFF CHRONIC PERIPHERAL] Onset: 11-24-19 Episodic Other inflammatory condition of skin (1 source) Lupus erythematosus; Translations: [Lupus (HCC)] Chronic Other lower respiratory disease (1 source) Personal history of pneumonia (recurrent); Translations: [PERSONAL HX OF PNEUMONIA RECURRENT] Onset: 11-24-19 Episodic Other nervous system disorders (5 sources) Chronic pain syndrome; Translations: [CHRONIC PAIN SYNDROME] Onset: 03-09-20 Chronic Other nervous system disorders (1 source) Other chronic pain; Translations: [OTHER CHRONIC PAIN] Onset: 10-02-19 Chronic Other nervous system disorders (5 sources) Acute postoperative pain; Translations: [Other acute postprocedural pain] 02-13-2022 Episodic Other nutritional; endocrine; and metabolic disorders (2 sources) Body mass index 40+ - severely obese; Translations: [Morbid obesity with BMI of 50.0-59.9, adult] Onset: 08-02-2008-02-2020 Chronic Other nutritional; endocrine; and metabolic disorders (1 source) Methylenetetrahydrofolate reductase deficiency; Translations: [MTHFR DEFICIENCY] Onset: 11-24-19 Chronic Other screening for suspected conditions (not mental disorders or infectious disease) (3 sources) Encounter for screening for cardiovascular disorders; Translations: [Encounter for screening for nutritional disorder] Onset: 10-24-19 Episodic Other skin disorders (2 sources) Hidradenitis suppurativa; Translations: [Suppurative hidradenitis] Onset: 08-02-20 20 08-02-2020 Episodic Pulmonary heart disease (1 source) Personal history of pulmonary embolism; Translations: [PERSONAL HISTORY PULMONARY EMBOLISM] Onset: 11-24-19 Episodic Residual codes; unclassified (2 sources) Obstructive sleep apnea syndrome; Translations: [YULY (obstructive sleep apnea)] Onset: 08-02-2008-02-2020 Chronic Residual codes; unclassified (1 source) Sleep apnea, unspecified; Translations: [SLEEP APNEA UNSPECIFIED] Onset: 11-24-19 Chronic Residual codes; unclassified (1 source) Acquired absence of other specified parts of digestive tract; Translations: [ACQ ABSENCE OTH PART DIGESTV TRACT] Onset: 11-24-19 Episodic Residual codes; unclassified (5 sources) Other amnesia; Translations: [OTHER AMNESIA] Onset: 10-23-19 Episodic Screening and history of mental health and substance abuse codes (1 source) Personal history of nicotine dependence; Translations: [PERSONAL HISTORY OF NICOTINE DEPEND] Onset: 11-24-19 Episodic Spondylosis; intervertebral disc disorders; other back problems (1 source) Other spondylosis with radiculopathy, lumbar region; Translations: [OTH SPONDYLS RADICULOPATHY LUMB RGN] Onset: 06-05-20 Chronic Spondylosis; intervertebral disc disorders; other back problems (14 sources) Cervicalgia; Translations: [Radiculopathy, cervical region] Onset: 06-01-20 Episodic Thyroid disorders (1 source) Autoimmune thyroiditis; Translations: [AUTOIMMUNE THYROIDITIS] Onset: 11-24-19 Chronic Unclassified (1 source) G89.18 - Other acute postprocedural pain; Translations: [G89.18 - Other acute postprocedural pain] Onset: 03-13-20 Unclassified (1 source) LOW BACK PAIN, UNSPECIFIED; Translations: [LOW BACK PAIN, UNSPECIFIED] Onset: 11-07-19 Past or Other Problems Problem Classification Problem Date Documented Date Episodic/Chronic Other nervous system disorders (1 source) Other acute postprocedural pain; Translations: [Other acute postprocedural pain] Onset: 04-10-2022 Episodic Other non-traumatic joint disorders (5 sources) Pain in right hip; Translations: [PAIN IN RIGHT HIP] Onset: 06-05-2022 Episodic Other non-traumatic joint disorders (1 source) Pain in left hip; Translations: [PAIN IN LEFT HIP] Onset: 03-09-2022 Episodic Results Test Name Value Interpretation Reference Range Facility CBC AUTO DIFFon 11-22-2022 BASO # 0.0 103/ul Normal 0.0-0.1 [facility] Comment on above: Performed By: #### H H #### [facility] [address] [address] [address] Ron Sims Basophils/100 WBC (Bld) 0.3 % Normal 0.2-2.0 [facility] Comment on above: Performed By: #### H H #### [facility] [address] [address] [address] Ron Sims EO # 0.1 103/ul Normal 0.0-0.7 [facility] Comment on above: Performed By: #### H H #### [facility] [address] [address] [address] Ron Sims Eosinophils/100 WBC (Bld) 0.8 % Critically low 0.9-7.0 [facility] Comment on above: Performed By: #### H H #### [facility] [address] [address] [address] Ron Sims Erythrocyte distribution width (RBC) [Ratio] 13.5 % Normal 11.0-15.0 [facility] Comment on above: Performed By: #### H H #### [facility] [address] [address] [address] Ron Sims Hematocrit (Bld) [Volume fraction] 42.3 % Normal 36.0-48.0 [facility] Comment on above: Performed By: #### H H #### [facility] [address] [address] [address] Ron Sims Hemoglobin (Bld) [Mass/Vol] 13.9 g/dL Normal 12.0-16.0 [facility] Comment on above: Performed By: #### H H #### [facility] [address] [place] [address] Dr. Ron Sims IG # 0.08 10e3/ul Critically high 0.00-0.03 [facility] Comment on above: Performed By: #### H H #### [facility] [address] [place] [address] Dr. Ron Sims IG % 0.9 % Critically high 0.0-0.5 [facility] Comment on above: Performed By: #### H H #### [facility] [address] [place] [address] Dr. Ron Sims LYMPH # 0.8 103/ul Critically low 1.2-3.8 [facility] Comment on above: Performed By: #### H H #### [facility] [address] [place] [address] Dr. Ron Sims Lymphocytes/100 WBC (Bld) 9.4 % Critically low 20.5-60.0 [facility] Comment on above: Performed By: #### H H #### [facility] [address] [place] [address] Dr. Ron Sims MANUAL DIFF REQ NO Normal [facility] Comment on above: Performed By: #### H H #### [facility] [address] [place] [address] Dr. Ron Sims MCH (RBC) [Entitic mass] 26.8 pg Normal 26.7-34.0 [facility] Comment on above: Performed By: #### H H #### [facility] [address] [place] [address] Dr. Ron Sims MCHC (RBC) [Mass/Vol] 32.9 g/dL Normal 29.9-35.2 [facility] Comment on above: Performed By: #### H H #### [facility] [address] [place] [address] Dr. Ron Sims MCV (RBC) [Entitic vol] 81.7 fL Normal 81.0-99.0 [facility] Comment on above: Performed By: #### H H #### [facility] [address] [address] [address] Ron Sims MONO # 0.6 103/ul Normal 0.3-0.8 [facility] Comment on above: Performed By: #### H H #### [facility] [address] [address] [address] Ron Sims Monocytes/100 WBC (Bld) 6.3 % Normal 1.7-12.0 [facility] Comment on above: Performed By: #### H H #### [facility] [address] [address] [address] Ron Sims NEUT # 7.2 103/ul Critically high 1.4-6.5 [facility] Comment on above: Performed By: #### H H #### [facility] [address] [place] [address] Dr. Ron Sims Neutrophils/100 WBC (Bld) 82.3 % Critically high 43.0-75.0 [facility] Comment on above: Performed By: #### H H #### [facility] [address] [place] [address] Dr. Ron Sims Platelet mean volume (Bld) [Entitic vol] 8.6 fL Critically low 9.5-13.5 [facility] Comment on above: Performed By: #### H H #### [facility] [address] [address] [address] Ron Sims PLT 323 103/ul Normal 150-450 [facility] Comment on above: Performed By: #### H H #### [facility] [address] [address] [address] Ron Sims RBC 5.18 106/ul Normal 4.20-5.40 [facility] Comment on above: Performed By: #### H H #### [facility] [address] [address] [address] Ron Sims WBC 8.8 103/ul Normal 4.0-11.0 [facility] Comment on above: Performed By: #### H H #### [facility] [address] [place], [place] [address] Dr. Ron Sims CULTURE BLOODon 11-22-2022 Microscopic examination of blood, culture Culture Observations: NO GROWTH AT 5 DAYS. Normal [facility] Comment on above: Performed By: #### H IV12 #### [facility] [address] [place], [place] [address] Dr. Ron Sims ECHO LIMITED STUDYon 023 ECHO LIMITED STUDY Patient: MARGARET PRIETO Exam Date: 11/22/2022 : 1990 Gender:F Ordering : DR NATHAN MAYFIELD D.O. Admission #: [id number] Family : Order #: [id number] CLICK HERE TO VIEW EXAM ECHOCARDIOGRAM REPORT PROCEDURE: CARDIO PULMONARY ECHO LIMITED STUDY INDICATIONS: Pulmonary embolism, Evaluate right heart function COMPARISON: None. DESCRIPTION: Limited ECHOCARDIOGRAM Real-time transthoracic echocardiography with 2D and M-mode performed. QUALITY: Technical quality was limited. LEFT VENTRICLE: Global left ventricular systolic function is normal. LV EF: Normal left ventricular ejection fraction, (>55%). LEFT ATRIUM: Normal chamber size. RIGHT ATRIUM: Normal chamber size. Echogenic density seen within the right atrium likely represents a prominent Eustachian valve vs the posterior right atrial wall vs mass. RIGHT VENTRICLE: Normal chamber size. Normal right ventricular systolic function. TRICUSPID VALVE: Normal mobility and thickness. Normal with trivial regurgitation. No evidence of pulmonary hypertension. RVSP 11mmHg MITRAL VALVE: Normal mobility and thickness. AORTIC VALVE: Normal aortic valve. AORTIC ROOT: Normal diameter and appearance. PULMONIC VALVE: Poorly seen. PERICARDIUM: Anterior free space; trivial effusion versus fat pad. IVC: Not well visualized. CONCLUSION: Global left ventricular systolic function is normal; visually estimated ejection fraction is 60 to 65%. No significant wall motion abnormalities. The right ventricle normal in size and systolic function. Echogenic density seen in the right atrium likely representing a prominent Eustachian valve versus the posterior right atrial wall versus a mass. Further imaging (e.g FABIO, cardiac CT, CMR) as clinically appropriate is recommended. Anterior free space; trivial effusion versus fat pad. Adult Echocardiography Procedure Report Left Ventricle LVEDD (3.7 - 5.6 cm): 3.36 cm LVESD (2.2 - 4.0 cm): 2.27 cm LVIVS thickness (0.6 - 1.2 cm): 1.14 cm LVPW thickness (0.5 - 1.0 cm): 1.27 cm Left Ventricular Ejection Fraction: 61.99 %, 61.99 % Left Atrium Left Atrium Systolic Dimension: 3.74 cm Mitral Valve Right Ventricle RV Internal Diastolic Dimension: 2.54 cm Aorta AO Root Diam: 2.18 cm Aortic Valve Tricuspid Valve Peak Velocity (Regurgitant Flow): 1.33 m/s, 1.42 m/s Pulmonic Valve Right Atrium Dictated by: Dago Aldridge M.D. on 11/22/2022 at 14:49 Approved by: Dago Aldridge M.D. on 11/22/2022 at 14:54 Normal [facility] LACTATE/LACTIC ACIDon 2022 Lactate [Moles/Vol] 1.5 mmol/L Normal 0.4-2.0 [facility] Comment on above: Performed By: #### L ACT #### [facility] [address] [address] [address] Ron Sims Lactate [Moles/Vol] 2.6 mmol/L Critically high 0.4-2.0 [facility] Comment on above: Performed By: #### L ACT #### [facility] [address] [address] [address] Ron Sims PROF CHEM 8 (BAS METB)on Anion gap [Moles/Vol] 16.8 mmol/L Normal [facility] Comment on above: Performed By: #### H H #### [facility] [address] [address] [address] Ron Sims Calcium [Mass/Vol] 8.9 mg/dL Normal 8.5-10.1 [facility] Comment on above: Performed By: #### H H #### [facility] [address] [address] [address] Ron Sims Chloride [Moles/Vol] 94 mmol/L Critically low 98-107 [facility] Comment on above: Performed By: #### H H #### [facility] [address] [address] [address] Ron Sims CO2 [Moles/Vol] 25.3 mmol/L Normal 21.0-32.0 [facility] Comment on above: Performed By: #### H H #### [facility] [address] [address] [address] Ron Sims Creatinine [Mass/Vol] 0.88 mg/dL Normal 0.55-1.02 [facility] Comment on above: Performed By: #### H H #### [facility] [address] [address] [address] Ron Sims EGFR-AF MICRONESIAN >60 Normal >=60 [facility] Comment on above: Performed By: #### H H #### [facility] [address] [place] [address] Dr. Ron Sims EGFR-NON AF MICRONESIAN >60 Normal >=60 [facility] Comment on above: Performed By: #### H H #### [facility] [address] [address] [address] Ron Sims Glucose [Mass/Vol] 112 mg/dL Critically high 74-106 T [facility] Comment on above: Performed By: #### H H #### [facility] [address] [address] [address] Ron Sims Potassium [Moles/Vol] 3.1 mmol/L Critically low 3.5-5.1 [facility] Comment on above: Performed By: #### H H #### [facility] [address] [address] [address] Ron Sims Sodium [Moles/Vol] 133 mmol/L Critically low 136-145 [facility] Comment on above: Performed By: #### H H #### [facility] [address] [place] [address] Dr. Ron Sims Urea nitrogen [Mass/Vol] 12.0 mg/dL Normal 7.0-18.0 [facility] Comment on above: Performed By: #### H H #### [facility] [address] [place] [address] Dr. Ron Sims Urea nitrogen/Creatinine [Mass ratio] 13.6 mg/mg Normal [facility] Comment on above: Performed By: #### H H #### [facility] [address] [address] [address] Ron Sims PROTIMEon 11-22-2022 INR Coag (PPP) [Relative time] 2.20 {INR} Normal [facility] Comment on above: Performed By: #### P T, PTT #### [facility] [address] [address] [address] Ron Sims INR GUIDELINES SEE BELOW Normal [facility] Comment on above: Result Comment: MICHELINE RED INR: 2.0 - 3.0 CONDITIONS NOT LISTED BELOW 2.5 - 3.5 FOR PROSTHETIC HEART VALVE REPLACEMENT 2.5 - 3.5 RECURRENT THROMBOSIS Performed By: #### P T, PTT #### [facility] [address] [place] [address] Dr. Ron Sims PT Coag (PPP) [Time] 22.3 s Critically high 9.0-11.6 [facility] Comment on above: Performed By: #### P T, PTT #### [facility] [address] [place], [place] [id number] Dr. Ron Sims PTTon 11-22-2022 aPTT Coag (Bld) [Time] 48.2 s Critically high 22.3-36. 2 [facility] Comment on above: Performed By: #### P T, PTT #### [facility] [address] [place] [address] Dr. Ron Sims XR CHEST 1 Von 11-22-2022 XR CHEST 1 V EXAMINATION: XR CHES T 1 V HISTORY: SHORTNESS OF BREATH COMPARISON: XR abdomen with PA chest 02/07/2021 FINDINGS: LUNGS: Underexpanded lungs. Small patchy opacity within lateral right lung base. VASCULATURE: No increased pulmonary vasculature. PLEURA: No pneumothorax, effusion, or pleural thickening. CARDIAC: No cardiomegaly or cardiac silhouette abnormality. MEDIASTINUM: No visible mass or adenopathy. BONES: No fracture or visible bone lesion. OTHER: Negative. IMPRESSION: 1. Low lung volume examination with mild right basilar infiltrates suspected. Follow-up imaging to document clearing is recommended. Electronically authenticated by: SANIA TIDWELL Date: 2022-11-22 12:16 Normal [facility] POLINA EIA W/REFLEX 9 BIOMARKER Son 10-24-2022 POLINA Direct Negative Normal Negative [facility] Comment on above: Performed By: #### H IV12 #### [facility] [address] [address] [address] Ron Sims HEPATITIS C AB CASCADE TO QU ANT PCR GENOon 10-24-2022 HCV AB Non-Reactive Normal Non Reactive [facility] Comment on above: Performed By: #### H EPCASC #### [facility] [address] [address] [address] Ron Sims Interpretation: Comment Normal [facility] Comment on above: Result Comment: Not infected with HCV unless early or acute infection is suspected (which may be delayed in an immunocompromised individual), or other evidence exists to indicate HCV infection. Performed By: #### H EPCASC #### [facility] [address] [address] [address] Ron Sims HIV 1 AND 2 WITH REFLEXon HIV Screen 4th Generation wRfx Non-Reactive Normal Non Reactive [facility] Comment on above: Result Comment: HIV Negative HIV-1/HIV-2 antibodies and HIV-1 p24 antigen were NOT detected. There is no laboratory evidence of HIV infection. Performed By: #### H IV12 #### [facility] [address] [place] [address] Dr. Ron Sims CPKon 10-23-2022 CK [Catalytic activity/Vol] 36 U/L Normal 26-192 [facility] Comment on above: Performed By: #### H H #### [facility] [address] [place] [address] Dr. Ron Sims GLYCOHEMOGLOBIN A1Con 2022 ADA RECOMMENDATION SEE BELOW Normal [facility] Comment on above: Result Comment: ADA RECOMMENDED LIMIT 4.0 - 6.0 ADA THERAPEUTIC TARGET < 7.0 ACTION SUGGESTED > 7.0 Performed By: #### A 1C #### [facility] [address] [place] [address] Dr. Ron Sims Glucose [Mass/Vol] 111 mg/dL Normal [facility] Comment on above: Performed By: #### A 1C #### [facility] [address] [place] [address] Dr. Ron Sims HbA1c (Bld) [Mass fraction] 5.5 % Normal 4.5-6.2 [facility] Comment on above: Performed By: #### A 1C #### [facility] [address] [place] [address] Dr. Ron Sims HEMOGRAM AND PLATELon 2022 Hematocrit (Bld) [Volume fraction] 38.4 % Normal 36.0-48.0 [facility] Comment on above: Performed By: #### H H #### [facility] [address] [place] [address] Dr. Ron Sims Hemoglobin (Bld) [Mass/Vol] 12.6 g/dL Normal 12.0-16.0 [facility] Comment on above: Performed By: #### H H #### [facility] [address] [place] [address] Dr. Ron Sims MCH (RBC) [Entitic mass] 27.0 pg Normal 26.7-34.0 [facility] Comment on above: Performed By: #### H H #### [facility] [address] [place] [address] Dr. Ron Sims MCHC (RBC) [Mass/Vol] 32.8 g/dL Normal 29.9-35.2 [facility] Comment on above: Performed By: #### H H #### [facility] [address] [place] [address] Dr. Ron Sims MCV (RBC) [Entitic vol] 82.2 fL Normal 81.0-99.0 [facility] Comment on above: Performed By: #### H H #### [facility] [address] [place] [address] Dr. Ron Sims PLT 337 103/ul Normal 150-450 [facility] Comment on above: Performed By: #### H H #### [facility] [address] [address] [address] Ron Sims RBC 4.67 106/ul Normal 4.20-5.40 [facility] Comment on above: Performed By: #### H H #### [facility] [address] [place] [address] Dr. Ron Sims WBC 9.7 103/ul Normal 4.0-11.0 [facility] Comment on above: Performed By: #### H H #### [facility] [address] [place] [address] Dr. Ron Sims MYOGLOBINon 10-23-2022 NOEMI 51 ng/mL Normal 9-82 [facility] Comment on above: Performed By: #### H H #### [facility] [address] [place] [address] Dr. Ron Sims PROF 14(COMP METB)on 023 Albumin [Mass/Vol] 3.1 g/dL Critically low 3.4-5.0 [facility] Comment on above: Performed By: #### P T, PTT #### [facility] [address] [place] [address] Dr. Ron Sims Albumin/Globulin [Mass ratio] 0.7 {ratio} Normal [facility] Comment on above: Performed By: #### P T, PTT #### [facility] [address] [place] [address] Dr. Ron Sims ALP [Catalytic activity/Vol] 79 U/L Normal 46-116 [facility] Comment on above: Performed By: #### P T, PTT #### [facility] [address] [place] [address] Dr. Ron Sims ALT [Catalytic activity/Vol] 28 U/L Normal 14-59 [facility] Comment on above: Performed By: #### P T, PTT #### [facility] [address] [place] [address] Dr. Ron Sims Anion gap [Moles/Vol] 12.2 mmol/L Normal [facility] Comment on above: Performed By: #### P T, PTT #### [facility] [address] [address] [address] Ron Sims AST [Catalytic activity/Vol] 17 U/L Normal 15-37 [facility] Comment on above: Performed By: #### P T, PTT #### [facility] [address] [place] [address] Dr. Ron Sims Bilirubin [Mass/Vol] 0.4 mg/dL Normal 0.2-1.0 [facility] Comment on above: Performed By: #### P T, PTT #### [facility] [address] [place] [address] Dr. Ron Sims Calcium [Mass/Vol] 9.0 mg/dL Normal 8.5-10.1 [facility] Comment on above: Performed By: #### P T, PTT #### [facility] [address] [place] [address] Dr. Ron Sims Chloride [Moles/Vol] 101 mmol/L Normal 98-107 [facility] Comment on above: Performed By: #### P T, PTT #### [facility] [address] [place] [address] Dr. Ron Sims CO2 [Moles/Vol] 28.5 mmol/L Normal 21.0-32.0 [facility] Comment on above: Performed By: #### P T, PTT #### [facility] [address] [place] [address] Dr. Ron Sims Creatinine [Mass/Vol] 0.88 mg/dL Normal 0.55-1.02 [facility] Comment on above: Performed By: #### P T, PTT #### [facility] [address] [place] [address] Dr. Ron Sims EGFR-AF MICRONESIAN >60 Normal >=60 [facility] Comment on above: Performed By: #### P T, PTT #### [facility] [address] [place] [address] Dr. Ron Sims EGFR-NON AF MICRONESIAN >60 Normal >=60 [facility] Comment on above: Performed By: #### P T, PTT #### [facility] [address] [place] [address] Dr. Ron Sims Globulin (S) [Mass/Vol] 4.6 g/dL Normal [facility] Comment on above: Performed By: #### P T, PTT #### [facility] [address] [address] [address] Ron Sims Glucose [Mass/Vol] 96 mg/dL Normal 74-106 [facility] Comment on above: Performed By: #### P T, PTT #### [facility] [address] [place] [address] Dr. Ron Sims Potassium [Moles/Vol] 3.7 mmol/L Normal 3.5-5.1 [facility] Comment on above: Performed By: #### P T, PTT #### [facility] [address] [place] [address] Dr. Ron Sims Protein [Mass/Vol] 7.7 g/dL Normal 6.4-8.2 [facility] Comment on above: Performed By: #### P T, PTT #### [facility] [address] [place] [address] Dr. Ron Sims Sodium [Moles/Vol] 138 mmol/L Normal 136-145 [facility] Comment on above: Performed By: #### P T, PTT #### [facility] [address] [place] [address] Dr. Ron Sims Urea nitrogen [Mass/Vol] 12.0 mg/dL Normal 7.0-18.0 [facility] Comment on above: Performed By: #### P T, PTT #### [facility] [address] [place] [address] Dr. Ron Sims Urea nitrogen/Creatinine [Mass ratio] 13.6 mg/mg Normal [facility] Comment on above: Performed By: #### P T, PTT #### [facility] [address] [place] [address] Dr. Ron Sims TSHon 10-23-2022 TSH 2.891 uIU/mL Normal 0.358-3.740 [facility] Comment on above: Performed By: #### P T, PTT #### [facility] [address] [place] [address] Dr. Ron Sims VITAMIN B12on 10-23-2022 Cobalamin (Vitamin B12) [Mass/Vol] 618.0 pg/mL Normal 193.0-986.0 [facility] Comment on above: Performed By: #### H H #### [facility] [address] [place] [address] Dr. Ron Sims VITAMIN D 25 OHon 10-23-2022 VIT D 25-OH 18.0 ng/mL Normal [facility] Comment on above: Performed By: #### H H #### [facility] [address] [place] [address] Dr. Ron Sims VIT D RANGES SEE BELOW Normal [facility] Comment on above: Result Comment: <20 ng/mL Vit D deficient 20 - <30 ng/mL Vit D insufficient 30 - 100 ng/mL Vit D sufficient >100 ng/mL Potential Toxicity Performed By: #### H H #### [facility] [address] [place] [address] Dr. Ron Sims CBC AUTO DIFFon 09-26-2022 BASO # 0.0 103/ul Normal 0.0-0.1 [facility] Comment on above: Performed By: #### H H #### [facility] [address] [place] [address] Dr. Ron Sims Basophils/100 WBC (Bld) 0.5 % Normal 0.2-2.0 [facility] Comment on above: Performed By: #### H H #### [facility] [address] [place] [address] Dr. Ron Sims EO # 0.1 103/ul Normal 0.0-0.7 [facility] Comment on above: Performed By: #### H H #### [facility] [address] [place] [address] Dr. Ron Sims Eosinophils/100 WBC (Bld) 1.5 % Normal 0.9-7.0 [facility] Comment on above: Performed By: #### H H #### [facility] [address] [place] [address] Dr. Ron Sims Erythrocyte distribution width (RBC) [Ratio] 13.3 % Normal 11.0-15.0 [facility] Comment on above: Performed By: #### H H #### [facility] [address] [place] [address] Dr. Ron Sims Hematocrit (Bld) [Volume fraction] 41.3 % Normal 36.0-48.0 [facility] Comment on above: Performed By: #### H H #### [facility] [address] [place] [address] Dr. Ron Sims Hemoglobin (Bld) [Mass/Vol] 13.6 g/dL Normal 12.0-16.0 [facility] Comment on above: Performed By: #### H H #### [facility] [address] [place] [address] Dr. Ron Sims IG # 0.03 10e3/ul Normal 0.00-0.03 [facility] Comment on above: Performed By: #### H H #### [facility] [address] [place] [address] Dr. Ron Sims IG % 0.3 % Normal 0.0-0.5 [facility] Comment on above: Performed By: #### H H #### [facility] [address] [place] [address] Dr. Ron Sims LYMPH # 1.5 103/ul Normal 1.2-3.8 [facility] Comment on above: Performed By: #### H H #### [facility] [address] [place] [address] Dr. Ron Sims Lymphocytes/100 WBC (Bld) 16.9 % Critically low 20.5-60.0 [facility] Comment on above: Performed By: #### H H #### [facility] [address] [place] [address] Dr. Ron Sims MANUAL DIFF REQ NO Normal [facility] Comment on above: Performed By: #### H H #### [facility] [address] [place] [address] Dr. Ron Sims MCH (RBC) [Entitic mass] 27.7 pg Normal 26.7-34.0 [facility] Comment on above: Performed By: #### H H #### [facility] [address] [place] [address] Dr. Ron Sims MCHC (RBC) [Mass/Vol] 32.9 g/dL Normal 29.9-35.2 [facility] Comment on above: Performed By: #### H H #### [facility] [address] [place] [address] Dr. Ron Sims MCV (RBC) [Entitic vol] 84.1 fL Normal 81.0-99.0 [facility] Comment on above: Performed By: #### H H #### [facility] [address] [place] [address] Dr. Ron Sims MONO # 0.5 103/ul Normal 0.3-0.8 [facility] Comment on above: Performed By: #### H H #### [facility] [address] [place] [address] Dr. Ron Sims Monocytes/100 WBC (Bld) 5.4 % Normal 1.7-12.0 [facility] Comment on above: Performed By: #### H H #### [facility] [address] [place] [address] Dr. Ron Sims NEUT # 6.5 103/ul Normal 1.4-6.5 [facility] Comment on above: Performed By: #### H H #### [facility] [address] [place] [address] Dr. Ron Sims Neutrophils/100 WBC (Bld) 75.4 % Critically high 43.0-75.0 [facility] Comment on above: Performed By: #### H H #### [facility] [address] [place] [address] Dr. Ron Sims Platelet mean volume (Bld) [Entitic vol] 9.0 fL Critically low 9.5-13.5 [facility] Comment on above: Performed By: #### H H #### [facility] [address] [place] [address] Dr. Ron Sims PLT 261 103/ul Normal 150-450 [facility] Comment on above: Performed By: #### H H #### [facility] [address] [address] [address] Ron Sims RBC 4.91 106/ul Normal 4.20-5.40 [facility] Comment on above: Performed By: #### H H #### [facility] [address] [address] [address] Ron Sims WBC 8.7 103/ul Normal 4.0-11.0 [facility] Comment on above: Performed By: #### H H #### [facility] [address] [address] [address] Ron Sims CRPon 09-26-2022 CRP 0.4 mg/dL Normal <=1.0 [facility] Comment on above: Performed By: #### P T, PTT #### [facility] [address] [place] [address] HEAD WO CONon 09-26-2022 CT HEAD WO CON EXAMINATION: CT HEAD WO CON HISTORY: Headache. TECHNIQUE: Axial CT scans through the head were obtained without IV contrast administration. Dose reduction techniques were achieved by using: automated exposure control and/or adjustment of mA and /or kV according to patient size and/or use of iterative reconstruction technique. COMPARISON: None. FINDINGS: The cerebral hemispheres have normal white and montoya matter and corticomedullary differentiation. To the limit of CT, the posterior fossa appears unremarkable. The ventricular system and cortical sulci are normal for the patient's age. No area of abnormal mass-effect or edema or intracranial hemorrhage. The visualized orbits show no abnormal mass. The visualized paranasal sinuses show no air-fluid level. Mastoid air cells are clear. IMPRESSION: No acute intracranial process. Electronically authenticated by: DEREK MIRELES Date: 2022-09-26 20:09 Normal [facility] CTA HEAD WO W CONon 09-26-19 CTA HEAD WO W CON EXAMINATION: CTA HEA D WO W CON, CTA NECK WO W CON HISTORY: Headache for 3 weeks. COMPARISON: Head CT on 09/26/2022. TECHNIQUE: Following IV administration of iodinated contrast, axial CT scans of the head and neck were obtained. MPR and MIP images images were obtained. Carotid stenosis is based on NASCET criteria. Dose reduction techniques were achieved by using automated exposure control and/or adjustment of mA and/or kV according to patient size and/or use of iterative reconstruction technique. FINDINGS: CTA OF THE HEAD: No major branch occlusion or significant intracranial stenosis. No aneurysm. Dural venous sinuses are patent. CTA OF THE NECK: No abnormal soft tissue mass in the neck. Left thyroidectomy is shown. No adenopathy in the neck. The visualized lungs are clear. Osseous structures are intact. Aortic arch shows no aneurysm. The great vessels of the aortic arch show no significant stenosis. Vertebral arteries show no significant stenosis or dissection. Common carotids and internal carotids show no significant stenosis or dissection. IMPRESSION: No large vessel occlusion or significant intracranial stenosis. No aneurysm. Dural venous sinuses are patent. Carotids and vertebral arteries show no dissection or significant stenosis. Electronically authenticated by: DEREK MIRELES Date: 2022-09-26 21:26 Normal [facility] PROF CHEM 8 (BAS METB)on Anion gap [Moles/Vol] 11.2 mmol/L Normal [facility] Comment on above: Performed By: #### P T, PTT #### [facility] [address] [address] [address] Ron Sims Calcium [Mass/Vol] 9.1 mg/dL Normal 8.5-10.1 [facility] Comment on above: Performed By: #### P T, PTT #### [facility] [address] [address] [address] Ron Sims Chloride [Moles/Vol] 101 mmol/L Normal 98-107 [facility] Comment on above: Performed By: #### P T, PTT #### [facility] [address] [address] [address] Ron Sims CO2 [Moles/Vol] 28.0 mmol/L Normal 21.0-32.0 [facility] Comment on above: Performed By: #### P T, PTT #### [facility] [address] [address] [address] Ron Sims Creatinine [Mass/Vol] 0.85 mg/dL Normal 0.55-1.02 [facility] Comment on above: Performed By: #### P T, PTT #### [facility] [address] [address] [address] Ron Sims EGFR-AF MICRONESIAN >60 Normal >=60 [facility] Comment on above: Performed By: #### P T, PTT #### [facility] [address] [address] [address] Ron Sims EGFR-NON AF MICRONESIAN >60 Normal >=60 [facility] Comment on above: Performed By: #### P T, PTT #### [facility] [address] [address] [address] Ron Sims Glucose [Mass/Vol] 106 mg/dL Normal 74-106 [facility] Comment on above: Performed By: #### P T, PTT #### [facility] [address] [place] [address] Dr. Ron Sims Potassium [Moles/Vol] 4.2 mmol/L Normal 3.5-5.1 [facility] Comment on above: Performed By: #### P T, PTT #### [facility] [address] [address] [address] Ron Sims Sodium [Moles/Vol] 136 mmol/L Normal 136-145 [facility] Comment on above: Performed By: #### P T, PTT #### [facility] [address] [address] [address] Ron Sims Urea nitrogen [Mass/Vol] 15.0 mg/dL Normal 7.0-18.0 [facility] Comment on above: Performed By: #### P T, PTT #### [facility] [address] [address] [address] Ron Sims Urea nitrogen/Creatinine [Mass ratio] 17.6 mg/mg Normal [facility] Comment on above: Performed By: #### P T, PTT #### [facility] [address] [address] [address] Ron Sims SED RATE WESTERGRENon 2022 SED RATE 58 mm/hr Critically high <=20 [facility] Comment on above: Performed By: #### S EDR #### [facility] [address] [place], [place] [address] Dr. Ron Sims PREG HCG QUALon 09-05-2022 , QUAL Negative Normal NEGATIVE [facility] Comment on above: Performed By: #### P REG #### [facility] [address] [place], [place] [address] Dr. Ron Sims ABO and Rh group post transf usion reaction Nom (Bld)Ordered By: John Mack on 04-11-2022 Microscopic observation Gram stain Nom (Unsp spec) [facility] Aerobic Cultureon 04-10-2022 Aerobic Culture Result Tab Codes Rare Normal Skin Keerthi 2 Days Anaerobic Culture Results No Anaerobes Isolated 3 Days Gram Stain Result No Bacteria Seen PERFORMED BY: [place] [address] PATHOLOGIST TECHNICAL SOLUTION ARCHITECT JACQUIE CRABTREE M.D. Normal [facility] Comment on above: Performed By: #### A ERC #### [facility] [address] [place] [address] HCG ( test) IA.rapi d Ql (U)Ordered By: Katya Vasques on 04-10-2022 HCG ( test) Ql (U) Negative [facility] HCG,Qualitative Serumon HCG,Qualitative Serum Negative Normal [facility] Comment on above: Result Comment: PERF ORMED BY: [place] [address] PATHOLOGIST TECHNICAL SOLUTION ARCHITECT JACQUIE CRABTREE M.D. Performed By: #### U HCG #### [facility] [address] [place], [place] [id number] [place] COVID-19 FRMCon 04-06-2022 SARS-CoV-2 (COVID-19) RNA EVARISTO+probe Ql (Unsp spec) Negative Normal Negative [facility] Comment on above: Order Comment: Healt hcare Worker?: N Result Comment: Testing for SARS-CoV-2 by RT-PCR This test was developed and its performance characteristics determined by [employer] and validated at the [facility]. This test has not been FDA cleared or approved. This test has been authorized by FDA under an Emergency Use Authorization (EUA). This test has been validated in accordance with the FDA's Guidance Document (Policy for Diagnostics Testing in Laboratories Certified to Perform High Complexity Testing under CLIA prior to Emergency Use Authorization for Coronavirus Disease-2019 during the Public Health Emergency) issued on December 04, 2019. This test is only authorized for the duration of time the declaration that circumstances exist justifying the authorization of the emergency use of in vitro diagnostic tests for detection of SARS-CoV-2 virus and/or diagnosis of COVID-19 infection under section 564(b)(1) of the Act, 21 U.S.C. 360bbb-3(b)(1), unless the authorization is terminated or revoked sooner. PERFORMED BY: [place] [address] PATHOLOGIST TECHNICAL SOLUTION ARCHITECT JACQUIE CRABTREE M.D. Performed By: #### U HCG #### [address] COVID-19 Positive/NegativeOr dered By: John Mack on 04-06-2022 SARS-CoV-2 (COVID-19) N gene EVARISTO+probe Ql (Resp) Negative Negative [facility] Comment on above: Testing for SARS-CoV -2 by RT-PCR This test was developed and its performance characteristics determined by [employer] ([employer]) and validated at the [facility]. This test has not been FDA cleared or approved. This test has been authorized by FDA under an Emergency Use Authorization (EUA). This test has been validated in accordance with the FDA's Guidance Document (Policy for Diagnostics Testing in Laboratories Certified to Perform High Complexity Testing under CLIA prior to Emergency Use Authorization for Coronavirus Disease-2019 during the Public Health Emergency) issued on December 04, 2019. This test is only authorized for the duration of time the declaration that circumstances exist justifying the authorization of the emergency use of in vitro diagnostic tests for detection of SARS-CoV-2 virus and/or diagnosis of COVID-19 infection under section 564(b)(1) of the Act, 21 U.S.C. 360bbb-3(b)(1), unless the authorization is terminated or revoked sooner. Albumin [Mass/volume] in Ser um or PlasmaOrdered By: Dominique Garrison on 03-30-2022 Albumin [Mass/Vol] 3.1 g/dL 3.2-5.5 [facility] Basophils Auto (Bld) [#/Vol] Ordered By: Dominique Garrison on 03-30-2022 Basophils (Bld) [#/Vol] 0.1 10*3/uL 0.0-0.2 [facility] Basophils/100 WBC Auto (Bld) Ordered By: Dominique Garrison on 03-30-2022 Basophils/100 WBC (Bld) 0.6 % . [facility] Blood hemoglobin measurement (mass/volume)Ordered By: Dominique Garrison on 03-30-2022 Hemoglobin (Bld) [Mass/Vol] 13.3 g/dL 11.8-15.4 [facility] Blood leukocytes automated c ount (number/volume)Ordered By: Dominique Garrison on 03-30-2022 WBC (Bld) [#/Vol] 10.7 10*3/uL 4.5-11.0 [facility] Complete Blood Count Auto Di ffon 03-30-2022 Basophils (Bld) [#/Vol] 0.1 10*3/uL Normal 0.0-0.2 [facility] Comment on above: Result Comment: PERF ORMED BY: [place] [address] PATHOLOGIST TECHNICAL SOLUTION ARCHITECT JACQUIE CRABTREE M.D. Performed By: #### C BC, CMP, T SPOT TB #### [facility] [address] [place] [address] [place] #### HCVCASCADE, HBSAB, HBCAB #### [facility] , Basophils/100 WBC (Bld) 0.6 % Normal . [facility] Comment on above: Performed By: #### C BC, CMP, T SPOT TB #### [facility] [address] [place] [address] [place] #### HCVCASCADE, HBSAB, HBCAB #### [facility] , Eosinophils (Bld) [#/Vol] 0.2 10*3/uL Normal 0.0-0.45 [facility] Comment on above: Performed By: #### C BC, CMP, T SPOT TB #### [facility] [address] [place] [address] #### HCVCASCADE, HBSAB, HBCAB #### [facility] , Eosinophils/100 WBC (Bld) 1.5 % Normal . [facility] Comment on above: Performed By: #### C BC, CMP, T SPOT TB #### [facility] [address] [place] [address] #### HCVCASCADE, HBSAB, HBCAB #### [facility] , Erythrocyte distribution width (RBC) [Ratio] 14.2 % Normal 11.9-15.3 [facility] Comment on above: Performed By: #### C BC, CMP, T SPOT TB #### [address] #### HCVCASCADE, HBSAB, HBCAB #### [facility] , Hematocrit (Bld) [Volume fraction] 39.6 % Normal 34.0-46.4 [facility] Comment on above: Performed By: #### C BC, CMP, T SPOT TB #### [facility] [address] [place] [address] [place] #### HCVCASCADE, HBSAB, HBCAB #### [facility] , Hemoglobin (Bld) [Mass/Vol] 13.3 g/dL Normal 11.8-15.4 [facility] Comment on above: Performed By: #### C BC, CMP, T SPOT TB #### [facility] [address] [place] [address] [place] #### HCVCASCADE, HBSAB, HBCAB #### [facility] , Lymphocytes (Bld) [#/Vol] 1.7 10*3/uL Normal 1.00-4.8 [facility] Comment on above: Performed By: #### C BC, CMP, T SPOT TB #### [facility] [address] [place] [address] #### HCVCASCADE, HBSAB, HBCAB #### [facility] , Lymphocytes/100 WBC (Bld) 16.0 % Normal . [facility] Comment on above: Performed By: #### C BC, CMP, T SPOT TB #### [address] #### HCVCASCADE, HBSAB, HBCAB #### [facility] , MCH (RBC) [Entitic mass] 26.8 pg Normal 24.7-34.3 [facility] Comment on above: Performed By: #### C BC, CMP, T SPOT TB #### [address] #### HCVCASCADE, HBSAB, HBCAB #### [facility] , MCV (RBC) [Entitic vol] 79.6 fL Low 80-100 [facility] Comment on above: Performed By: #### C BC, CMP, T SPOT TB #### [address] #### HCVCASCADE, HBSAB, HBCAB #### [facility] , Mean Corpuscular HGB Conc 33.7 g/dL Normal 32.0-35.0 [facility] Comment on above: Performed By: #### C BC, CMP, T SPOT TB #### [facility] [address] [place] [address] #### HCVCASCADE, HBSAB, HBCAB #### [facility] , Monocytes (Bld) [#/Vol] 0.7 10*3/uL Normal 0.0-0.8 [facility] Comment on above: Performed By: #### C BC, CMP, T SPOT TB #### [facility] [address] [place] [address] #### HCVCASCADE, HBSAB, HBCAB #### [facility] , Monocytes/100 WBC (Bld) 6.4 % Normal . [facility] Comment on above: Performed By: #### C BC, CMP, T SPOT TB #### [facility] [address] [place] [address] [place] #### HCVCASCADE, HBSAB, HBCAB #### [facility] , Neutrophils (Bld) [#/Vol] 8.0 10*3/uL High 1.8-7.7 [facility] Comment on above: Performed By: #### C BC, CMP, T SPOT TB #### [facility] [address] [place] [address] #### HCVCASCADE, HBSAB, HBCAB #### [facility] , Neutrophils/100 WBC (Bld) 75.5 % Normal . [facility] Comment on above: Performed By: #### C BC, CMP, T SPOT TB #### [facility] [address] [place] [address] #### HCVCASCADE, HBSAB, HBCAB #### [facility] , Nucleated RBC/100 WBC (Bld) [Ratio] 0.1 % Normal 0-0.5 [facility] Comment on above: Performed By: #### C BC, CMP, T SPOT TB #### [facility] [address] [place] [address] [place] #### HCVCASCADE, HBSAB, HBCAB #### [facility] , Platelet mean volume (Bld) [Entitic vol] 7.3 fL Normal 6.3-10.7 [facility] Comment on above: Performed By: #### C BC, CMP, T SPOT TB #### [facility] [address] [place] [address] [place] #### HCVCASCADE, HBSAB, HBCAB #### [facility] , Platelets (Bld) [#/Vol] 376 10*3/uL Normal 150-450 [facility] Comment on above: Performed By: #### C BC, CMP, T SPOT TB #### [facility] [address] [place] [address] #### HCVCASCADE, HBSAB, HBCAB #### [facility] , RBC (Bld) [#/Vol] 4.97 10*6/uL Normal 3.60-5.00 [facility] Comment on above: Performed By: #### C BC, CMP, T SPOT TB #### [facility] [address] [place] [address] #### HCVCASCADE, HBSAB, HBCAB #### [facility] , WBC (Bld) [#/Vol] 10.7 10*3/uL Normal 4.5-11.0 [facility] Comment on above: Performed By: #### C BC, CMP, T SPOT TB #### [address] #### HCVCASCADE, HBSAB, HBCAB #### [facility] , Comprehensive Metabolic Pane carol 03-30-2022 Albumin [Mass/Vol] 3.1 g/dL Low 3.2-5.5 [facility] Comment on above: Performed By: #### U HCG #### [facility] [address] [place] [address] Albumin/Globulin [Mass ratio] 0.8 {ratio} Normal [facility] Comment on above: Performed By: #### U HCG #### [address] ALP [Catalytic activity/Vol] 66 U/L Normal 32-92 [facility] Comment on above: Result Comment: PERF ORMED BY: [place] [address] PATHOLOGIST TECHNICAL SOLUTION ARCHITECT JACQUIE CRABTREE M.D. Performed By: #### U HCG #### [facility] [address] [place] [address] [place] ALT [Catalytic activity/Vol] 24 U/L Normal 10-60 [facility] Comment on above: Performed By: #### U HCG #### [address] AST [Catalytic activity/Vol] 20 U/L Normal 10-42 [facility] Comment on above: Performed By: #### U HCG #### [address] Bilirubin [Mass/Vol] 0.5 mg/dL Normal 0.3-1.2 [facility] Comment on above: Performed By: #### U HCG #### [address] Calcium [Mass/Vol] 8.5 mg/dL Normal 8.2-10.2 [facility] Comment on above: Performed By: #### U HCG #### [address] Chloride [Moles/Vol] 105 mmol/L Normal 95-114 [facility] Comment on above: Performed By: #### U HCG #### [address] CO2 [Moles/Vol] 23.0 mmol/L Normal 22.0-30.0 [facility] Comment on above: Performed By: #### U HCG #### [facility] [address] [place] [address] Creatinine [Mass/Vol] 0.74 mg/dL Normal 0.44-1.03 [facility] Comment on above: Performed By: #### U HCG #### [facility] [address] [place] [address] [place] Estimated GFR ( Vinh > 60 Normal [facility] Comment on above: Result Comment: GFR estimated reference range: According to KDOQI guidelines, <60 ml/min/1.73m2 is sufficient to diagnose a patient with chronic kidney disease. Performed By: #### U HCG #### [address] [place] [address] [place] Estimated GFR (Non- Am > 60 Normal [facility] Comment on above: Performed By: #### U HCG #### [facility] [address] Globulin (S) [Mass/Vol] 4.1 g/dL Normal [facility] Comment on above: Performed By: #### U HCG #### [address] Glucose [Mass/Vol] 97 mg/dL Normal 70-100 [facility] Comment on above: Result Comment: [facility] Glucose Reference Range is dependent on time and content of last meal. Glucose of more than 200 mg/dL in a nonstressed, ambulatory subject supports the diagnosis of Diabetes Mellitus. ADA recommended reference range Performed By: #### U HCG #### [address] Potassium [Moles/Vol] 3.8 mmol/L Normal 3.5-5.1 [facility] Comment on above: Performed By: #### U HCG #### [place] [address] [place] Protein [Mass/Vol] 7.2 g/dL Normal 6.1-7.9 [facility] Comment on above: Performed By: #### U HCG #### [place] [address] [place] Sodium [Moles/Vol] 136 mmol/L Normal 136-146 [facility] Comment on above: Performed By: #### U HCG #### [place] [address] [place] Urea nitrogen [Mass/Vol] 9 mg/dL Normal 9-23 [facility] Comment on above: Performed By: #### U HCG #### [place] [address] [place] Creatinine and Glomerular fi ltration rate.predicted panel (S/P/Bld)Ordered By: Dominique Garrison on 03-30-2022 Creatinine [Mass/Vol] 0.74 mg/dL 0.44-1.03 [facility] Eosinophils Auto (Bld) [#/Vo l]Ordered By: Dominique Garrison on 03-30-2022 Eosinophils (Bld) [#/Vol] 0.2 10*3/uL 0.0-0.45 [facility] Eosinophils/100 WBC Auto (Bl d)Ordered By: Dominique Garrison on 03-30-2022 Eosinophils/100 WBC (Bld) 1.5 % . [facility] Erythrocyte distribution wid th Auto (RBC) [Ratio]Ordered By: Dominique Garrison on 03-30-2022 Erythrocyte distribution width (RBC) [Ratio] 14.2 % 11.9-15.3 [facility] Estimated glomerular filtrat ion rate (GFR) non- AmericanOrdered By: Dominique Garrison on 03-30-2022 GFR/1.73 sq M.predicted among non-blacks MDRD (S/P/Bld) [Vol rate/Area] > 60 mL/Min [facility] Globulin Calc (S) [Mass/Vol] Ordered By: Dominique Garrison on 03-30-2022 Globulin (S) [Mass/Vol] 4.1 g/dL [facility] HCV Antibody Cascadeon 03-30 Hepatitis C Virus Antibody 0.2 Normal 0.0-0.9 [facility] Comment on above: Performed By: #### U HCG #### [facility] [address] Interpretation Hepatitis C Normal . [facility] Comment on above: Result Comment: Nega tive Not infected with HCV, unless recent infection is suspected or other evidence exists to indicate HCV infection. Performed By: #### U HCG #### [facility] [address] [place] [address] [place] Hematocrit Auto (Bld) [Volum e fraction]Ordered By: Dominique Garrison on 03-30-2022 Hematocrit (Bld) [Volume fraction] 39.6 % 34.0-46.4 [facility] Hepatitis B Core Antibodyon 03-30-2022 Hepatitis B Core Antibody Negative Normal Negative [facility] Comment on above: Result Comment: Perf ormed at: - [facility] [place] [id number] Gear Technician: Tarun Almanzar PhD, Phone: [phone] PERFORMED BY: [place] [address] PATHOLOGIST TECHNICAL SOLUTION ARCHITECT JACQUIE CRABTREE M.D. Performed By: #### U HCG #### [address] Hepatitis B Surface Antibody on 03-30-2022 Hepatitis B Surface Antibody Reactive Normal . [facility] Comment on above: Result Comment: Non Reactive: Inconsistent with immunity, less than 10 mIU/mL Reactive: Consistent with immunity, greater than 9.9 mIU/mL Performed By: #### U HCG #### [address] Hepatitis C virus RNA [Units /volume] (viral load) in Serum or Plasma by EVARISTO with probOrdered By: Dominique Garrison on 03-30-2022 HCV RNA EVARISTO+probe Qn N/A [facility] Hepatitis C virus RNA [log u nits/volume] (viral load) in Serum or Plasma by EVARISTO withOrdered By: Dominique Garrison on 03-30-2022 HCV RNA EVARISTO+probe [Log units/Vol] N/A [facility] Laboratory - Hematology and Cell countsOrdered By: Dominique Garrison on 03-30-2022 Nucleated RBC/100 WBC (Bld) [Ratio] 0.1 % 0-0.5 [facility] Lymphocytes Auto (Bld) [#/Vo l]Ordered By: Dominique Garrison on 03-30-2022 Lymphocytes (Bld) [#/Vol] 1.7 10*3/uL 1.00-4.8 [facility] Lymphocytes/100 WBC Auto (Bl d)Ordered By: Dominique Garrison on 03-30-2022 Lymphocytes/100 WBC (Bld) 16.0 % . [facility] MCH Auto (RBC) [Entitic mass ]Ordered By: Dominique Garrison on 03-30-2022 MCH (RBC) [Entitic mass] 26.8 pg 24.7-34.3 [facility] MCHC Auto (RBC) [Mass/Vol]Or dered By: Dominique Garrison on 03-30-2022 MCHC (RBC) [Mass/Vol] 33.7 g/dL 32.0-35.0 [facility] MCV Auto (RBC) [Entitic vol] Ordered By: Dominique Bladimir on 03-30-2022 MCV (RBC) [Entitic vol] 79.6 fL 80-100 [facility] Monocytes Auto (Bld) [#/Vol] Ordered By: Dominique Garrison on 03-30-2022 Monocytes (Bld) [#/Vol] 0.7 10*3/uL 0.0-0.8 [facility] Monocytes/100 WBC Auto (Bld) Ordered By: Dominique Garrison on 03-30-2022 Monocytes/100 WBC (Bld) 6.4 % . [facility] Neutrophils Auto (Bld) [#/Vo l]Ordered By: Dominique Garrison on 03-30-2022 Neutrophils (Bld) [#/Vol] 8.0 10*3/uL 1.8-7.7 [facility] Neutrophils/100 WBC Auto (Bl d)Ordered By: Dominique Garrison on 03-30-2022 Neutrophils/100 WBC (Bld) 75.5 % . [facility] No Panel InformationOrdered By: Dominique Garrison on 03-30-2022 Estimated GFR () > 60 mL/Min [facility] Comment on above: GFR estimated refere nce range: According to KDOQI guidelines, <60 ml/min/1.73m2 is sufficient to diagnose a patient with chronic kidney disease. Hepatitis B Core Total Antibody Negative Negative [facility] Comment on above: Performed at: - [address] [id number] Gear Technician: Tarun Almanzar PhD, Phone: [phone] Hepatitis C Interpretation See comment . [facility] Comment on above: Negative Not infected with HCV, unless recent infection is suspected or other evidence exists to indicate HCV infection. Hepatitis C RNA Quantitative N/A [facility] Creatinine Clearance (Chem N/A [facility] TB Test (T-Spot) . [facility] Comment on above: See report. Scanned copy available in EMR. Platelet mean volume Auto (B ld) [Entitic vol]Ordered By: Dominique Garrison on 03-30-2022 Platelet mean volume (Bld) [Entitic vol] 7.3 fL 6.3-10.7 [facility] Platelets Auto (Bld) [#/Vol] Ordered By: Dominique Garrison on 03-30-2022 Platelets (Bld) [#/Vol] 376 10*3/uL 150-450 [facility] Protein [Mass/volume] in Ser um or PlasmaOrdered By: Dominique Grarison on 03-30-2022 Protein [Mass/Vol] 7.2 g/dL 6.1-7.9 [facility] RBC Auto (Bld) [#/Vol]Ordere d By: Dominique Garrison on 03-30-2022 RBC (Bld) [#/Vol] 4.97 10*6/uL 3.60-5.00 [facility] Serum hepatitis B virus surf mary antibody detectionOrdered By: Dominique Garrison on 03-30-2022 HBV surface Ab Ql (S) Reactive . [facility] Comment on above: Non Reactive: Incons istent with immunity, less than 10 mIU/mL Reactive: Consistent with immunity, greater than 9.9 mIU/mL Serum or plasma alanine block otransferase measurement without P-5'-P (enzymatic activiOrdered By: Dominique Garrison on 03-30-2022 ALT No additional P-5'-P [Catalytic activity/Vol] 24 U/L 10-60 [facility] Serum or plasma albumin/glob ulin mass ratioOrdered By: Dominique Garrison on 03-30-2022 Albumin/Globulin [Mass ratio] 0.8 {ratio} [facility] Serum or plasma alkaline james sphatase measurement (enzymatic activity/volume)Ordered By: Dominique Garrison on 03-30-2022 ALP [Catalytic activity/Vol] 66 U/L 32-92 [facility] Serum or plasma aspartate am inotransferase measurement (enzymatic activity/volume)Ordered By: Dominique Garrison on 03-30-2022 AST [Catalytic activity/Vol] 20 U/L 10-42 [facility] Serum or plasma calcium seema urement (mass/volume)Ordered By: Dominique Garrison on 03-30-2022 Calcium [Mass/Vol] 8.5 mg/dL 8.2-10.2 [facility] Serum or plasma chloride laura surement (moles/volume)Ordered By: Dominique Garrison on 03-30-2022 Chloride [Moles/Vol] 105 mmol/L 95-114 [facility] Serum or plasma glucose seema urement (mass/volume)Ordered By: Dominique Garrison on 03-30-2022 Glucose [Mass/Vol] 97 mg/dL 70-100 [facility] Comment on above: ADA recommended refe rence range Random Glucose Reference Range is dependent on time and content of last meal. Glucose of more than 200 mg/dL in a nonstressed, ambulatory subject supports the diagnosis of Diabetes Mellitus. Serum or plasma hepatitis C virus antibody signal/cutoff ratio by immunoassay (relatiOrdered By: Dominique Garrison on 03-30-2022 HCV Ab Signal/Cutoff IA [Rel units/Vol] 0.2 s/co ratio 0.0-0.9 [facility] Serum or plasma potassium me asurement (moles/volume)Ordered By: Dominique Garrison on 03-30-2022 Potassium [Moles/Vol] 3.8 mmol/L 3.5-5.1 [facility] Serum or plasma sodium measu rement (moles/volume)Ordered By: Dominique Garrison on 03-30-2022 Sodium [Moles/Vol] 136 mmol/L 136-146 [facility] Serum or plasma total biliru bin measurement (mass/volume)Ordered By: Dominique Garrison on 03-30-2022 Bilirubin [Mass/Vol] 0.5 mg/dL 0.3-1.2 [facility] Serum or plasma total carbon dioxide measurement (moles/volume)Ordered By: Dominique Garrison on 03-30-2022 CO2 [Moles/Vol] 23.0 mmol/L 22.0-30.0 [facility] Serum or plasma urea nitroge n measurement (mass/volume)Ordered By: Dominique Garrison on 03-30-2022 Urea nitrogen [Mass/Vol] 9 mg/dL 9- [facility] T SPOT TB TESTon 03-30-2022 T SPOT TB TEST . Normal [facility] Comment on above: Result Comment: See report. Scanned copy available in EMR. PERFORMED BY: [place] [address] PATHOLOGIST TECHNICAL SOLUTION ARCHITECT JACQUIE CRABTREE M.D. Performed By: #### U HCG #### [address] Bacteria identified Anaer cx Nom (Unsp spec)Ordered By: John Mack on 03-29-2022 Anaerobic Culture Prevotella bivia F [facility] Bacteria identified Aer cx N om (Unsp spec)Ordered By: John Mack on 03-15-2022 Aerobic Culture Strep. agalactiae Grp B [facility] ABO and Rh group post transf usion reaction Nom (Bld)Ordered By: John Mack on 03-14-2022 Microscopic observation Gram stain Nom (Unsp spec) [facility] ANTIMICROBIAL SUSCEPT-ANAERO BEon 03-13-2022 FINAL REPORT SEE NOTE Normal [facility] Comment on above: Order Comment: Speci men Type: MICROBIAL ISOLATE Ordering Facility: [facility] Address: [address] [place] [id number] Result Comment: Prev otella bivia Organism identified by client INTERPRETIVE INFORMATION: Anaerobe Susceptibility Panel Units = ug/mL ANAMIC Meropenem 0.12 None Ampicillin/Sulbactam 2/1 None Piperacillin/Tazobactam <=1/4 None Penicillin 16 None Metronidazole 4 None Clindamycin >=32 None Interpretive Information See Note At the present time there are no CLSI guidelines for performance and/or interpretation of susceptibility testing for anaerobes other than Bacteroides fragilis group by the broth microdilution method. Unable to provide interpretation for MARY values. Susceptibility performed by non-standardized methodology. Interpret results with caution. Performed by [facility], [address] [place] [address] [email or web address], J Carlos Huynh MD, PHD, Lab. Director Performed By: #### S USANA #### [employer] [facility] CLIA [id number] [address] [place] [address] Aerobic Cultureon 03-13-2022 Aerobic Culture Comment Right Labial Abscess ORGANISM: Strep. agalactiae Grp B (O:B) Quantity of Growth Moderate Growth Comment Right Labial Abscess ORGANISM: Prevotella bivia (O:PREBIV) Comments Sent to [facility] for Testing Quantity of Growth Moderate Growth PREVOTELLA BIVIA (A) Testing done at [facility] Organism sent to [facility] for susceptibililty testing. Minimum inhibitory concentration (ug/ml) Meropenem 0.12 Ampicillin/Sulbactam 2/1 Piperacillin/Tazobactam <=1/4 Penicillin 16 Metronidazole 4 Clindamycin >=32 Interpretive information: See Note Note: At the present time there are no CLSI guidelines for performance and/or interpretation of susceptibility testing for anaerobes other than Bacteroides fragilis group by the broth microdilution method. Unable to provide interpretation for the MARY values. Susceptibility performed by non-standardized methology. Interpret results with caution. Testing performed [facility] Comment Right Labial Abscess Gram Stain Result 4+ White Blood Cells Rare Gram Positive Cocci PERFORMED BY: [place] [address] PATHOLOGIST TECHNICAL SOLUTION ARCHITECT JACQUIE CRABTREE M.D. Normal [facility] Comment on above: Performed By: #### C OVID 19 [facility] #### [address] Bacterial susceptibility john el MARY (Isol)on 03-13-2022 BLACT Positive Normal [facility] Comment on above: Order Comment: Speci men Type: MICROBIAL ISOLATE Ordering Facility: [facility] Address: [address] [place] [address] Performed By: #### 5 0545-3 #### [facility] CLIA [id number] [address] [place], [place] [address] [place] [address] [place] CULTURE, ORGANISM MARY RESULT [id number] Abnormal [facility] Comment on above: Order Comment: Speci men Type: MICROBIAL ISOLATE Ordering Facility: [facility] Address: [address] [place] [address] Result Comment: Prev otella bivia Performed By: #### 5 0545-3 #### [facility] [facility] CLIA [id number] [address] [facility] [id number] [id number] [place] Basic Metabolic Panelon 07 Calcium [Mass/Vol] 8.9 mg/dL Normal 8.2-10.2 [facility] Comment on above: Performed By: #### B MP #### [facility] [address] [place] [address] [place] Chloride [Moles/Vol] 98 mmol/L Normal 95-114 [facility] Comment on above: Performed By: #### B MP #### [facility] [address] CO2 [Moles/Vol] 24.4 mmol/L Normal 22.0-30.0 [facility] Comment on above: Performed By: #### B MP #### [facility] [address] Creatinine [Mass/Vol] 0.77 mg/dL Normal 0.44-1.03 [facility] Comment on above: Performed By: #### B MP #### [facility] [address] [place] [address] [place] Creatinine Clr Calc Pharmacy 159.38 [facility] Comment on above: Result Comment: PERF ORMED BY: [place] [address] PATHOLOGIST TECHNICAL SOLUTION ARCHITECT JACQUIE CRABTREE M.D. Performed By: #### B MP #### [facility] [address] Estimated GFR ( Vinh > 60 [facility] Comment on above: Result Comment: GFR estimated reference range: According to KDOQI guidelines, <60 ml/min/1.73m2 is sufficient to diagnose a patient with chronic kidney disease. Performed By: #### B MP #### [facility] [address] Estimated GFR (Non- Am > 60 [facility] Comment on above: Performed By: #### B MP #### [facility] [address] Glucose [Mass/Vol] 95 mg/dL Normal 70-100 [facility] Comment on above: Result Comment: [place] Glucose Reference Range is dependent on time and content of last meal. Glucose of more than 200 mg/dL in a nonstressed, ambulatory subject supports the diagnosis of Diabetes Mellitus. ADA recommended reference range Performed By: #### B MP #### [facility] [address] [place] [id number] [place] Potassium [Moles/Vol] 3.8 mmol/L Normal 3.5-5.1 [facility] Comment on above: Performed By: #### B MP #### [facility] [address] [place] [address] [place] Sodium [Moles/Vol] 133 mmol/L Low 136-146 [facility] Comment on above: Performed By: #### B MP #### [facility] [address] [place] [address] [place] Urea nitrogen [Mass/Vol] 7 mg/dL Low 9-23 [facility] Comment on above: Performed By: #### B MP #### [facility] [address] [place] [address] [place] Creatinine and Glomerular fi ltration rate.predicted panel (S/P/Bld)Ordered By: KATYA SIMENTAL on 03-13-2022 Creatinine [Mass/Vol] 0.77 mg/dL 0.44-1.03 [facility] Estimated glomerular filtrat ion rate (GFR) non- AmericanOrdered By: KATYA SIMENTAL on 03-13-2022 GFR/1.73 sq M.predicted among non-blacks MDRD (S/P/Bld) [Vol rate/Area] > 60 mL/Min [facility] HCG ( test) IA.rapi d Ql (U)Ordered By: KATYA SIMENTAL on 03-13-2022 HCG ( test) Ql (U) Negative [facility] HCG,Urineon 03-13-2022 Beta HCG ( test) Ql (U) Negative Normal [facility] Comment on above: Result Comment: PERF ORMED BY: [facility] [address] [facility] [address] [place] [address] PATHOLOGIST TECHNICAL SOLUTION ARCHITECT JACQUIE CRABTREE M.D. Performed By: #### U HCG #### [facility] [address] Microorganism identified Cx Nom (Unsp spec)on 03-13-2022 CULTURE, ORGANISM ID ANAEROBE [id number] Abnormal [facility] Comment on above: Order Comment: Speci men Type: MICROBIAL ISOLATE Ordering Facility: [facility] Address: [address] [place], [place] [phone] Result Comment: Prev otella bivia Performed By: #### 1 1475-1 #### [facility] CLIA [id number] [address] [place] [address] [place] No Panel InformationOrdered By: KATYA SIMENTAL on 03-13-2022 Estimated GFR () > 60 mL/Min [facility] Comment on above: GFR estimated refere nce range: According to KDOQI guidelines, <60 ml/min/1.73m2 is sufficient to diagnose a patient with chronic kidney disease. Pharmacy Creatinine Clearance (Chem 159.38 [facility] Serum or plasma calcium seema urement (mass/volume)Ordered By: KATYA SIMENTAL on 03-13-2022 Calcium [Mass/Vol] 8.9 mg/dL 8.2-10.2 [facility] Serum or plasma chloride laura surement (moles/volume)Ordered By: KATYA SIMENTAL on 03-13-2022 Chloride [Moles/Vol] 98 mmol/L 95-114 [facility] Serum or plasma glucose seema urement (mass/volume)Ordered By: KATYA SIMENTAL on 03-13-2022 Glucose [Mass/Vol] 95 mg/dL 70-100 [facility] Comment on above: ADA recommended refe rence range Random Glucose Reference Range is dependent on time and content of last meal. Glucose of more than 200 mg/dL in a nonstressed, ambulatory subject supports the diagnosis of Diabetes Mellitus. Serum or plasma potassium me asurement (moles/volume)Ordered By: KATYA SIMENTAL on 03-13-2022 Potassium [Moles/Vol] 3.8 mmol/L 3.5-5.1 [facility] Serum or plasma sodium measu rement (moles/volume)Ordered By: KATYA SIMENTAL on 03-13-2022 Sodium [Moles/Vol] 133 mmol/L 136-146 [facility] Serum or plasma total carbon dioxide measurement (moles/volume)Ordered By: KATYA SIMENTAL on 03-13-2022 CO2 [Moles/Vol] 24.4 mmol/L 22.0-30.0 [facility] Serum or plasma urea nitroge n measurement (mass/volume)Ordered By: KATYA SIMENTAL on 03-13-2022 Urea nitrogen [Mass/Vol] 7 mg/dL - [facility] COVID-19 FRon 03-09-2022 SARS-CoV-2 (COVID-19) RNA EVARISTO+probe Ql (Unsp spec) Negative Normal Negative [facility] Comment on above: Order Comment: Healt hcare Worker?: N Result Comment: Testing for SARS-CoV-2 by RT-PCR This test was developed and its performance characteristics determined by [employer] ([employer]) and validated at the [facility]. This test has not been FDA cleared or approved. This test has been authorized by FDA under an Emergency Use Authorization (EUA). This test has been validated in accordance with the FDA's Guidance Document (Policy for Diagnostics Testing in Laboratories Certified to Perform High Complexity Testing under CLIA prior to Emergency Use Authorization for Coronavirus Disease-2019 during the Public Health Emergency) issued on December 04, 2019. This test is only authorized for the duration of time the declaration that circumstances exist justifying the authorization of the emergency use of in vitro diagnostic tests for detection of SARS-CoV-2 virus and/or diagnosis of COVID-19 infection under section 564(b)(1) of the Act, 21 U.S.C. 360bbb-3(b)(1), unless the authorization is terminated or revoked sooner. PERFORMED BY: [place] [address] PATHOLOGIST TECHNICAL SOLUTION ARCHITECT JACQUIE CRABTREE M.D. Performed By: #### C OVID 19 [facility] #### [address] COVID-19 Positive/NegativeOr dered By: John Mack on 03-09-2022 SARS-CoV-2 (COVID-19) N gene EVARISTO+probe Ql (Resp) Negative Negative [facility] Comment on above: Testing for SARS-CoV -2 by RT-PCR This test was developed and its performance characteristics determined by [employer] ([employer]) and validated at the [facility]. This test has not been FDA cleared or approved. This test has been authorized by FDA under an Emergency Use Authorization (EUA). This test has been validated in accordance with the FDA's Guidance Document (Policy for Diagnostics Testing in Laboratories Certified to Perform High Complexity Testing under CLIA prior to Emergency Use Authorization for Coronavirus Disease-2019 during the Public Health Emergency) issued on December 04, 2019. This test is only authorized for the duration of time the declaration that circumstances exist justifying the authorization of the emergency use of in vitro diagnostic tests for detection of SARS-CoV-2 virus and/or diagnosis of COVID-19 infection under section 564(b)(1) of the Act, 21 U.S.C. 360bbb-3(b)(1), unless the authorization is terminated or revoked sooner. Bacteria identified Anaer cx Nom (Unsp spec)Ordered By: John Mack on 02-28-2022 Anaerobic Culture Prevotella bivia F [facility] Bacteria identified Aer cx N om (Unsp spec)Ordered By: John Mack on 02-15-2022 Aerobic Culture Escherichia coli [facility] Aerobic Culture Strep. agalactiae Grp B [facility] ABO and Rh group post transf usion reaction Nom (Bld)Ordered By: John Mack on 02-14-2022 Microscopic observation Gram stain Nom (Unsp spec) [facility] ANTIMICROBIAL SUSCEPT-ANAERO BEon 02-13-2022 FINAL REPORT SEE NOTE Normal [facility] Comment on above: Order Comment: Speci men Type: MICROBIAL ISOLATE Ordering Facility: [facility] Address: [address] [place] [phone] Result Comment: Prev otella bivia Organism identified by client INTERPRETIVE INFORMATION: Anaerobe Susceptibility Panel Units = ug/mL ANAMIC Meropenem 0.06 None Ampicillin/Sulbactam 2/1 None Piperacillin/Tazobactam <=1/4 None Penicillin 8 None Metronidazole 4 None Clindamycin >=32 None Interpretive Information See Note At the present time there are no CLSI guidelines for performance and/or interpretation of susceptibility testing for anaerobes other than Bacteroides fragilis group by the broth microdilution method. Unable to provide interpretation for MARY values. Susceptibility performed by non-standardized methodology. Interpret results with caution. Performed by [facility], [address] [place] [address] [email or web address], Kaity Eckert MD, Lab. Director Performed By: #### S [facility] #### [facility] CLIA [id number] [address] [place] [address] Aerobic Cultureon 02-13-2022 Aerobic Culture Comment R LABIAL LES ION DEEP WOUND CULTURE Light Normal Skin Keerthi 2 Days Comment R LABIAL LESION DEEP WOUND CULTURE No Anaerobes Isolated 3 Days Comment R LABIAL LESION DEEP WOUND CULTURE Gram Stain Result 3+ White Blood Cells No Bacteria Seen PERFORMED BY: [place] [address] PATHOLOGIST TECHNICAL SOLUTION ARCHITECT JACQUIE CRABTREE M.D. [facility] Comment on above: Performed By: #### A ERC #### [address] Aerobic Culture Comment R PUBIS LESI ON DEEP WOUND CULTURE ORGANISM: Escherichia coli (O:ESCCOL) Quantity of Growth Light Growth ORGANISM: Strep. agalactiae Grp B (O:B) Quantity of Growth Rare Growth Comment R PUBIS LESION DEEP WOUND CULTURE ORGANISM: Prevotella bivia (O:PREBIV) Comments Sent to [facility] for Sensitivity Testing Quantity of Growth Moderate Growth Beta lactamase - Positive Minimum inhibitory concentration (ug/ml) Meropenem 0.06 None Ampicillin/Sulbactam 2/1 None Piperacillin/Tazobactam <=1/4 None Penicillin 8 None Metronidazole 4 None Clindamycin >=32 None Interpretive information: See Note Note: At the present time there are no CLSI guidelines for performance and/or interpretation of susceptibility testing for anaerobes other than Bacteroides fragilis group by the broth microdilution method. Unable to provide interpretation for the MARY values. Susceptibility performed by non-standardized methology. Interpret results with caution. Testing performed [facility] Laboratories Comment R PUBIS LESION DEEP WOUND CULTURE Gram Stain Result 1+ White Blood Cells No Bacteria Seen Aerobic MARY Charge (NUC86) -- SUSCEPTIBILITY - ORGANISM: O:ESCCOL ANTIBIOTIC INTERPRETATION MARY Amikacin S <16 Ampicillin R >16 Ampicillin/Sulbactam S <8/4 Aztreonam S <4 Cefazolin S <2 Cefepime S <2 Ceftazidime S <1 Ceftazidime/Avibactam S <8 Ceftriaxone S <1 Ciprofloxacin S <1 Ertapenem S <0.5 Gentamicin S <4 Levofloxacin S <2 Meropenem S <1 Piperacillin/Tazobactam S <16 Tetracycline S <4 Tigecycline S <2 Tobramycin S <4 Trimethoprim/Sulfametho xazole R >2/38 S = SUSCEPTIBLE I = INTERMEDIATE R = RESISTANT BLANK = DATA NOT AVAILABLE, OR DRUG NOT ADVISABLE OR TESTED R* = RESISTANCE DUE TO EXTENDED SPECTRUM BETA-LACTAMASES ESBL = EXTENDED SPECTRUM BETA-LACTAMASE TFG = THYMIDINE-DEPENDENT STRAIN TOVA = BETA-LACTAMASE POSITIVE IB = INDUCIBLE BETA-LACTAMASE. APPEARS IN PLACE OF 'S' WITH SPECIES KNOWN TO POSSESS INDUCIBLE BETA-LACTAMASES. POTENTIALLY THEY MAY BECOME RESISTANT TO ALL B-LACTAM DRUGS. PERFORMED BY: [place] [address] PATHOLOGIST TECHNICAL SOLUTION ARCHITECT JACQUIE CRABTREE M.D. Normal [facility] Comment on above: Performed By: #### U HCG #### [address] Bacterial susceptibility john el MARY (Isol)on 02-13-2022 BLACT Positive Normal [facility] Comment on above: Order Comment: Speci men Type: MICROBIAL ISOLATE Ordering Facility: [facility] Address: [address] [place] [phone] Performed By: #### 5 0545-3 #### [facility] CLIA [id number] [address] [place] [address] [place] CULTURE, ORGANISM MARY RESULT [id number] Abnormal [facility] Comment on above: Order Comment: Speci men Type: MICROBIAL ISOLATE Ordering Facility: [facility] Address: [address] [place], [place] [phone] Result Comment: Prev otella bivia Performed By: #### 5 0545-3 #### [facility] CLIA [id number] [address] [place] [address] [place] [id number] [place] HCG ( test) IA.rapi d Ql (U)Ordered By: Dillon Miranda on 02-13-2022 HCG ( test) Ql (U) Negative [facility] HCG,Urineon 02-13-2022 Beta HCG ( test) Ql (U) Negative Normal [facility] Comment on above: Result Comment: PERF ORMED BY: [place] [address] PATHOLOGIST TECHNICAL SOLUTION ARCHITECT JACQUIE CRABTREE M.D. Performed By: #### U HCG #### [address] 02-13-2022 L --- Specimen: [id number] Received: 02/14/22 Status: OSCAR Woody Num: [id number] Spec Type: Surgical Subm Dr: John Mack MD Tissues: A Debridement-Skin/Other Than Skin (RT PUBIS) B Debridement-Skin/Other Than Skin (LT LABIAL) C Debridement-Skin/Other Than Skin (RT LABIAL) D Debridement-Skin/Other Than Skin (RT ABDOMINAL WALL) Procedures: HE Stain/4, Gross/Micro L3/4 Patient Age/Sex Location Account Attending Physician Margaret Prieto /F [place] [id number] John Mack MD SPEC NUM: [id number] RECD: 02/14/22 STATUS: OSCAR ALEGRELasha NUM: [id number] DANIEL: 02/13/22-[address] [facility] [address]: John Mack MD ENTERED: 02/14/22-0753 [facility] DR: BRODY TYPE: Surgical DEPT: S ORDERED: HE Stain/4, Gross/Micro L3/4 ORDERED: HE Stain/4, Gross/Micro L3/4 Pathological Diagnosis A. Skin and soft tissue, right pubis, debridement: Soft tissue with acute inflammation and granular granulation tissue. Dermis with edema, hemorrhage and chronic acute inflammation. Skin with reactive squamous hyperplasia. B. Skin and soft tissue, left labia, debridement: Soft tissue with dense chronic acute inflammation. Overlying skin with reactive hyperplasia. C. Skin and soft tissue, right leg, debridement: Soft tissue with chronic acute inflammation, granulation tissue and abscess formation. Overlying skin with reactive squamous hyperplasia. D. Skin and soft tissue, right abdominal wall, debridement: Soft tissue with dense chronic acute inflammation. Overlying skin with focal ulceration, fibrinopurulent exudate, and reactive hyperplasia. Clinical Information Multiple leg and groin lesions, hidradenitis Specimen: [id number] Received: 02/14/22 Status: OSCAR Mckay Num: [id number] Spec Type: Surgical Subm Dr: John Mack MD Tissues: A Debridement-Skin/Other Than Skin (RT PUBIS) B Debridement-Skin/Other Than Skin (LT LABIAL) C Debridement-Skin/Other Than Skin (RT LABIAL) D Debridement-Skin/Other Than Skin (RT ABDOMINAL WALL) Procedures: HE Stain/4, Gross/Micro L3/4 Patient: Margaret Prieto [id number] (Continued) Specimen: [id number] Received: 02/14/22 (Continued) Signed (signature on file) Santi Nichols MD (Michelle) 02/15/22 1722 Specimen: [id number] Received: 02/14/22 Status: OSCAR Mckay Num: [id number] Spec Type: Surgical Subm Dr: John Mack MD Tissues: A Debridement-Skin/Other Than Skin (RT PUBIS) B Debridement-Skin/Other Than Skin (LT LABIAL) C Debridement-Skin/Other Than Skin (RT LABIAL) D Debridement-Skin/Other Than Skin (RT ABDOMINAL WALL) Procedures: HE Stain/4, Gross/Micro L3/4 Patient: Margaret Prieto [id number] (Continued) Specimen: [id number] Received: 02/14/22 (Continued) Gross Description A. Received in formalin labeled with the patient's name, number and right pubis products of debridement is a 1.9 x 0.9 cm herrera-montoya, slightly wrinkled skin ellipse excised to a maximum depth of 0.6 cm. Sectioning reveals herrera-montoya to hyperemic and rubbery cut surfaces. Entirely submitted in one cassette labeled A1. Type of Fixative: 10% Neutral Buffered Formalin (SM/YJ) B. Received in formalin labeled with the patient's name, number and left labial products of debridement left labial products of debridement are 2 unoriented montoya-herrera, wrinkled skin fragments that measure 2.4 cm and 3 cm. Sectioning reveals herrera, hyperemic, rubbery and fibrotic cut surfaces. Entirely submitted in one cassette labeled B1. Type of Fixative: 10% Neutral Buffered Formalin (SM/YJ) C. Received in formalin labeled with the patient's name, number and right labial products of debridement are 2 unoriented herrera-montoya, wrinkled skin fragments that measure 1.5 cm and 1.9 cm. Sectioning reveals herrera, rubbery to slightly hyperemic and fibrotic cut surfaces. Entirely submitted in one cassette labeled C1. Type of Fixative: 10% Neutral Buffered Formalin (SM/YJ) D. Received in formalin labeled with the patient's (more content not included)... Normal [facility] Microorganism identified Cx Nom (Unsp spec)on 02-13-2022 CULTURE, ORGANISM ID ANAEROBE [id number] Abnormal [facility] Comment on above: Order Comment: Speci men Type: MICROBIAL ISOLATE Ordering Facility: [facility] Address: [address] [place] [phone] Result Comment: Prev otella bivia Performed By: #### 1 1475-1 #### [facility] CLIA [id number] [address] [place] [address] [place] COVID-19 [facility] [place] SARS-CoV-2 (COVID-19) RNA EVARISTO+probe Ql (Unsp spec) Negative Normal Negative [facility] Comment on above: Order Comment: Healt hcare Worker?: N Result Comment: Testing for SARS-CoV-2 by RT-PCR This test was developed and its performance characteristics determined by [employer] ([employer]) and validated at the [facility]. This test has not been FDA cleared or approved. This test has been authorized by FDA under an Emergency Use Authorization (EUA). This test has been validated in accordance with the FDA's Guidance Document (Policy for Diagnostics Testing in Laboratories Certified to Perform High Complexity Testing under CLIA prior to Emergency Use Authorization for Coronavirus Disease-2019 during the Public Health Emergency) issued on December 04, 2019. This test is only authorized for the duration of time the declaration that circumstances exist justifying the authorization of the emergency use of in vitro diagnostic tests for detection of SARS-CoV-2 virus and/or diagnosis of COVID-19 infection under section 564(b)(1) of the Act, 21 U.S.C. 360bbb-3(b)(1), unless the authorization is terminated or revoked sooner. PERFORMED BY: [place] [address] PATHOLOGIST TECHNICAL SOLUTION ARCHITECT JACQUIE CRABTREE M.D. Performed By: #### C OVID 19 [facility] #### [address] COVID-19 Positive/NegativeOr dered By: John Mack on 02-09-2022 SARS-CoV-2 (COVID-19) N gene EVARISTO+probe Ql (Resp) Negative Negative [facility] Comment on above: Testing for SARS-CoV -2 by RT-PCR This test was developed and its performance characteristics determined by [employer] ([employer]) and validated at the [facility]. This test has not been FDA cleared or approved. This test has been authorized by FDA under an Emergency Use Authorization (EUA). This test has been validated in accordance with the FDA's Guidance Document (Policy for Diagnostics Testing in Laboratories Certified to Perform High Complexity Testing under CLIA prior to Emergency Use Authorization for Coronavirus Disease-2019 during the Public Health Emergency) issued on December 04, 2019. This test is only authorized for the duration of time the declaration that circumstances exist justifying the authorization of the emergency use of in vitro diagnostic tests for detection of SARS-CoV-2 virus and/or diagnosis of COVID-19 infection under section 564(b)(1) of the Act, 21 U.S.C. 360bbb-3(b)(1), unless the authorization is terminated or revoked sooner. Basic Metabolic Panelon 05-3 Calcium [Mass/Vol] 8.9 mg/dL Normal 8.2-10.2 [facility] Comment on above: Result Comment: PERF ORMED BY: [place] [address] PATHOLOGIST TECHNICAL SOLUTION ARCHITECT JACQUIE CRABTREE M.D. Performed By: #### C BC, BMP #### [facility] [address] [place] [address] [place] Chloride [Moles/Vol] 99 mmol/L Normal 95-114 [facility] Comment on above: Performed By: #### C BC, BMP #### [place] [address] [place] CO2 [Moles/Vol] 26.3 mmol/L Normal 22.0-30.0 [facility] Comment on above: Performed By: #### C BC, BMP #### [address] Creatinine [Mass/Vol] 0.77 mg/dL Normal 0.44-1.03 [facility] Comment on above: Performed By: #### C BC, BMP #### [place] [address] [place] Estimated GFR ( Vinh > 60 [facility] Comment on above: Result Comment: GFR estimated reference range: According to KDOQI guidelines, <60 ml/min/1.73m2 is sufficient to diagnose a patient with chronic kidney disease. Performed By: #### C BC, BMP #### [address] Estimated GFR (Non- Am > 60 Normal [facility] Comment on above: Performed By: #### C BC, BMP #### [place] [address] [place] Glucose [Mass/Vol] 100 mg/dL Normal 70-100 [facility] Comment on above: Result Comment: [place] Glucose Reference Range is dependent on time and content of last meal. Glucose of more than 200 mg/dL in a nonstressed, ambulatory subject supports the diagnosis of Diabetes Mellitus. ADA recommended reference range Performed By: #### C BC, BMP #### [place] [address] [place] Potassium [Moles/Vol] 3.8 mmol/L Normal 3.5-5.1 [facility] Comment on above: Performed By: #### C BC, BMP #### [address] Sodium [Moles/Vol] 137 mmol/L Normal 136-146 [facility] Comment on above: Performed By: #### C BC, BMP #### [address] Urea nitrogen [Mass/Vol] 11 mg/dL Normal 9-23 [facility] Comment on above: Performed By: #### C BC, BMP #### [address] Complete Blood Count Auto Di ffon 01-31-2022 Basophils (Bld) [#/Vol] 0.1 10*3/uL Normal 0.0-0.2 [facility] Comment on above: Result Comment: PERF ORMED BY: [place] [address] PATHOLOGIST TECHNICAL SOLUTION ARCHITECT JACQUIE CRABTREE M.D. Performed By: #### C BC, BMP #### [address] Basophils/100 WBC (Bld) 0.7 % Normal . [facility] Comment on above: Performed By: #### C BC, BMP #### [address] Eosinophils (Bld) [#/Vol] 0.3 10*3/uL Normal 0.0-0.45 [facility] Comment on above: Performed By: #### C BC, BMP #### [place] [address] [place] Eosinophils/100 WBC (Bld) 2.7 % Normal . [facility] Comment on above: Performed By: #### C BC, BMP #### [address] Erythrocyte distribution width (RBC) [Ratio] 14.3 % Normal 11.9-15.3 [facility] Comment on above: Performed By: #### C BC, BMP #### [facility] [address] Hematocrit (Bld) [Volume fraction] 41.9 % Normal 34.0-46.4 [facility] Comment on above: Performed By: #### C BC, BMP #### [facility] [address] Hemoglobin (Bld) [Mass/Vol] 13.9 g/dL Normal 11.8-15.4 [facility] Comment on above: Performed By: #### C BC, BMP #### [facility] [address] Lymphocytes (Bld) [#/Vol] 2.0 10*3/uL Normal 1.00-4.8 [facility] Comment on above: Performed By: #### C BC, BMP #### [address] Lymphocytes/100 WBC (Bld) 15.9 % Normal . [facility] Comment on above: Performed By: #### C BC, BMP #### [facility] [address] MCH (RBC) [Entitic mass] 26.4 pg Normal 24.7-34.3 [facility] Comment on above: Performed By: #### C BC, BMP #### [facility] [address] MCV (RBC) [Entitic vol] 79.5 fL Low 80-100 [facility] Comment on above: Performed By: #### C BC, BMP #### [facility] [address] Mean Corpuscular HGB Conc 33.2 g/dL Normal 32.0-35.0 [facility] Comment on above: Performed By: #### C BC, BMP #### [address] Monocytes (Bld) [#/Vol] 0.8 10*3/uL Normal 0.0-0.8 [facility] Comment on above: Performed By: #### C BC, BMP #### [facility] [address] [place] [id number] [place] Monocytes/100 WBC (Bld) 6.7 % Normal . [facility] Comment on above: Performed By: #### C BC, BMP #### [facility] [address] [place] [address] [place] Neutrophils (Bld) [#/Vol] 9.2 10*3/uL High 1.8-7.7 [facility] Comment on above: Performed By: #### C BC, BMP #### [facility] [address] [place] [id number] [place] Neutrophils/100 WBC (Bld) 74.0 % Normal . [facility] Comment on above: Performed By: #### C BC, BMP #### [facility] [address] [place] [id number] [place] Nucleated RBC/100 WBC (Bld) [Ratio] 0.0 % Normal 0-0.5 [facility] Comment on above: Performed By: #### C BC, BMP #### [facility] [address] [place] [id number] [place] Platelet mean volume (Bld) [Entitic vol] 6.9 fL Normal 6.3-10.7 [facility] Comment on above: Performed By: #### C BC, BMP #### [facility] [address] [place] [id number] [place] Platelets (Bld) [#/Vol] 363 10*3/uL Normal 150-450 [facility] Comment on above: Performed By: #### C BC, BMP #### [facility] [address] [place] [address] [place] RBC (Bld) [#/Vol] 5.26 10*6/uL High 3.60-5.00 [facility] Comment on above: Performed By: #### C BC, BMP #### [facility] [address] [place] [id number] [place] WBC (Bld) [#/Vol] 12.5 10*3/uL High 4.5-11.0 [facility] Comment on above: Performed By: #### C BC, BMP #### [address] ECG 12 lead ECGon 01-31-2022 ECG 12 lead ECG [facility] [place] [address] [place] [address] Electrocardiograph Report Signed Patient: Margaret Prieto MR#: [id number] : 1990 Acct:[id number] Age/Sex: 31 / F ADM Date: 01/31/22 Loc: PS Room: Type: [facility] Attending Dr: John Mack MD Ordering Provider: John Mack MD Date of Service: 01/31/22 ECG/ECG 12 lead ECG: surgery 02/13/22 Copies to: Test Reason : Blood Pressure : / mmHG Vent. Rate : 086 BPM Atrial Rate : 086 BPM P-R Int : 176 ms QRS Dur : 096 ms QT Int : 390 ms P-R-T Axes : 050 062 033 degrees QTc Int : 466 ms Normal sinus rhythm Normal ECG No previous ECGs available Confirmed by SUSANNA RUIZ DO ([id number]) on 01/31/2022 6:47:57 PM Referred By: ALBA MACK Electronically Signed By:SUSANNA RUIZ DO Transcribed By: SHUN Signed By Susanna Ruiz DO 01/31 1848 [facility] CNPAnisha 10-28-2021 CNPN Telephone (HEMTSA) MARGARET PRIETO ([id number]) 1990 F Date Time Provider Department 10/28/21 MARCIN ZAYAS During your visit today, we recorded the following information about you: Marcin Zayas RN 10/28/2021 3:14 PM Signed Patient calls to notify that she was diagnosed with multiple pulmonary emboli and a left leg DVT. Her PCP placed her on Xarelto, today is day 3 (15 mg twice daily), she notes terrible pain in her left leg with swelling from her knee to her foot. Margaret became tearful and overwhelmed as she mentions she has multiple medical problems ranging from new memory loss (MRI pending) Obesity, poor vasculature, and is currently being treated for over fifty wounds over her ABD/pelvis. She essentially bed bound. She would like your opinion. She said she had a physician in the past that told her she should be on Heparin drip if this happened again. Please advise LENA Yanez MD 10/28/2021 3:47 PM Signed A little difficult for me to do just because I haven't seen her in a year - but Xarelto would be a fine choice. I'm so sorry she's going through so much. Macrin Zayas RN 10/28/2021 4:19 PM Signed Patient aware. She will continue the Xarelto as ordered and appreciates your input Marcin Zayas RN Allergies As of Date: 10/28/2021 Noted Allergy Reaction BACTRIM (SULFAMETHOXAZOLE-TRIME TH*07/01/2018 16 - Unknown CECLOR (CEFACLOR) 07/01/2018 16 - Unknown ESTROGENS 07/01/2018 16 - Unknown PENICILLINS 07/01/2018 2 - Rash AMOXICILLIN 04/28/2013 4 - Hives Date Reviewed: 10/28/2020 Reviewed by: Sharif Sal - Fully Assessed Reason for Visit: Patient Update [1234] Patient Question [4277] Prescriptions as of 10/28/2021 - tetracycline (SUMYCIN) 500 mg cap TAKE 1 CAPSULE BY MOUTH EVERY 12 HOURS ON AN EMPTY STOMACH - sucralfate (CARAFATE) 1 gram tablet Take 1 g by mouth. - spironolactone (ALDACTONE) 25 mg tablet - isosorbide mononitrate ER (IMDUR) 30 mg 24 hr tablet TAKE 1 2 (ONE HALF) TABLET BY MOUTH ONCE DAILY - hydroCHLOROthiazide (HYDRODIURIL, ESIDRIX) 25 mg tablet Take 25 mg by mouth once daily. - J11-cgcverucihcw calcium-B6 (FOLTX) 2-1.13-25 mg tab Take 1 tablet by mouth once daily. - acetaminophen (TYLENOL) 325 mg cap Take by mouth. - ferrous sulfate 325 mg (65 mg iron) tablet Take 1 tablet by mouth twice daily. - buPROPion XL (WELLBUTRIN XL) 150 mg 24 hr tablet Take 150 mg by mouth. - cetirizine (ZYRTEC) 10 mg tablet Take 10 mg by mouth. - Cholecalciferol, Vitamin D3, 10,000 unit cap 10,000 unit oral capsule once weekly - doxycycline hyclate (VIBRAMYCIN) 100 mg capsule Take 100 mg by mouth. - escitalopram oxalate (LEXAPRO) 5 mg tablet - FLUoxetine HCl (PROZAC) 40 mg capsule TAKE ONE CAPSULE BY MOUTH ONCE DAILY - levothyroxine (SYNTHROID) 50 mcg tablet TAKE ONE TABLET BY MOUTH ONCE DAILY - Lidocaine HCl 3 % crea - lisinopril (ZESTRIL, PRINIVIL) 10 mg tablet - loratadine (CLARITIN) 10 mg tablet - metoprolol tartrate, short acting, (LOPRESSOR) 25 mg tablet Take 12.5 mg by mouth. - mupirocin (BACTROBAN) 2 % ointment Apply 1 application to affected area. - triamcinolone acetonide (KENALOG) 0.5 % cream - guaifenesin/pseudoephed rne HCl (GUAIFENESIN 600/PSE 120 ORAL) Take by mouth. - omeprazole (PRILOSEC) 20 mg capsule Take 20 mg by mouth once daily. Problem List As Of Date 10/28/2021 Noted Resolved Factor V Leiden (HCC) [D68.51] 07/04/2018 Encounter Status:Closed by MARCIN ZAYAS on 10/28/21 Normal [facility] Physician Referralon 022 Physician Referral [id number] 206 [id number] D:127 Normal [facility] Physician Referralon 021 Physician Referral [id number] 105 [id number] D:127 Normal [facility] Vital Signs Date Time Vital Sign Value Performing Clinician Facility 05-05-2022 09:25-0400 Body temperature 97.9 [degF] MD John Mack Work Phone: [facility] 05-05-2022 09:25-0400 Diastolic blood pressure 93 mm[Hg] MD John Mack Work Phone: [facility] 05-05-2022 09:25-0400 Heart rate 78 /min MD John Mack Work Phone: [facility] 05-05-2022 09:25-0400 Respiratory rate 18 /min MD John Mack Work Phone: [facility] 05-05-2022 09:25-0400 SaO2% (BldA) [Mass fraction] 99 % MD John Mack Work Phone: [facility] 05-05-2022 09:25-0400 Systolic blood pressure 156 mm[Hg] MD John Mack Work Phone: [facility] 05-05-2022 09:24-0400 Body height 165.1 cm MD John Mack Work Phone: [facility] 05-05-2022 09:24-0400 Body weight 155.9 kg MD John Mack Work Phone: [facility] 04-21-2022 09:29-0400 Body temperature 98.2 [degF] MD John Mack Work Phone: [facility] 04-21-2022 09:29-0400 Diastolic blood pressure 59 mm[Hg] MD John Mack Work Phone: [facility] 04-21-2022 09:29-0400 Heart rate 74 /min MD John Mack Work Phone: [facility] 04-21-2022 09:29-0400 Systolic blood pressure 141 mm[Hg] MD John Mcak Work Phone: [facility] 04-21-2022 08:29-0400 Body height 165.1 cm MD John Mack Work Phone: [facility] 04-21-2022 08:29-0400 Body weight 155 kg MD John Mack Work Phone: [facility] 04-10-2022 14:46-0400 Body height 165.1 cm MD John Mack Work Phone: [facility] 04-10-2022 14:46-0400 Body mass index (BMI) [Ratio] 55.4 kg/m2 MD John Mack Work Phone: [facility] 04-10-2022 14:46-0400 Body weight 151.04 kg MD John Mack Work Phone: [facility] 04-10-2022 14:25-0400 Diastolic blood pressure 69 mm[Hg] MD John Mack Work Phone: [facility] 04-10-2022 14:25-0400 Heart rate 80 /min MD John Mack Work Phone: [facility] 04-10-2022 14:25-0400 Respiratory rate 16 /min MD John Mack Work Phone: [facility] 04-10-2022 14:25-0400 SaO2% (BldA) [Mass fraction] 100 % MD John Mack Work Phone: [facility] 04-10-2022 14:25-0400 Systolic blood pressure 119 mm[Hg] MD John Mack Work Phone: [facility] 04-10-2022 14:10-0400 Inhaled oxygen flow rate 4 L/min MD John Mack Work Phone: [facility] 04-10-2022 11:36-0400 Body temperature 97.9 [degF] MD John Mack Work Phone: [facility] 03-13-2022 19:00-0400 Diastolic blood pressure 92 mm[Hg] MD John Mack Work Phone: [facility] 03-13-2022 19:00-0400 Heart rate 84 /min MD John Mack Work Phone: [facility] 03-13-2022 19:00-0400 Respiratory rate 16 /min MD John Mack Work Phone: [facility] 03-13-2022 19:00-0400 SaO2% (BldA) [Mass fraction] 98 % MD John Mack Work Phone: [facility] 03-13-2022 19:00-0400 Systolic blood pressure 148 mm[Hg] MD John Mack Work Phone: [facility] 03-13-2022 18:03-0400 Body temperature 98 [degF] MD John Mack Work Phone: [facility] 03-13-2022 17:33-0400 Inhaled oxygen flow rate 6 L/min MD John Mack Work Phone: [facility] 03-13-2022 17:13-0400 Body height 165.1 cm MD John Mack Work Phone: [facility] 03-13-2022 17:13-0400 Body mass index (BMI) [Ratio] 56.9 kg/m2 MD John Mack Work Phone: [facility] 03-13-2022 17:13-0400 Body weight 155.12 kg MD John Mack Work Phone: [facility] 02-13-2022 17:05-0400 Diastolic blood pressure 81 mm[Hg] MD John Mack Work Phone: [facility] 02-13-2022 17:05-0400 Heart rate 76 /min MD John Mack Work Phone: [facility] 02-13-2022 17:05-0400 Respiratory rate 16 /min MD John Mack Work Phone: [facility] 02-13-2022 17:05-0400 SaO2% (BldA) [Mass fraction] 94 % MD John Mack Work Phone: [facility] 02-13-2022 17:05-0400 Systolic blood pressure 131 mm[Hg] MD John Mack Work Phone: [facility] 02-13-2022 15:44-0400 Body height 165.1 cm MD John Mack Work Phone: [facility] 02-13-2022 15:44-0400 Body mass index (BMI) [Ratio] 56.5 kg/m2 MD John Mack Work Phone: [facility] 02-13-2022 15:44-0400 Body weight 154 kg MD John Mack Work Phone: [facility] 02-13-2022 12:20-0400 Body temperature 97.9 [degF] MD John Mack Work Phone: [facility] 08-02-2020 13:24-0500 BMI (Body Mass Index) 58.74 kg/m2 [facility] 08-02-2020 13:24-0500 Body Temperature 98.4 [degF] [facility] 08-02-2020 13:24-0500 Body weight 160.12 kg [facility] 08-02-2020 13:24-0500 BP Diastolic 91 mm[Hg] [facility] 08-02-2020 13:24-0500 BP Systolic 150 mm[Hg] [facility] 08-02-2020 13:24-0500 Height 165.1 cm [facility] 08-02-2020 13:24-0500 Pulse (Heart Rate) 91 /min [facility] 08-02-2020 13:24-0500 Pulse Oximetry 97 % [facility] Encounters Encounter Date Encounter Type Care Provider Facility Start: 06-25-2023 End: 06-26-2023 ambulatory Yancy Cancino MD Facility:[facility] Start: 05-28-2023 End: 05-29-2023 ambulatory Yancy Cancino MD Facility:[facility] Start: 03-12-2023 End: 03-13-2023 ambulatory Yancy Cancino MD Facility:[facility] Start: 02-26-2023 End: 02-27-2023 ambulatory Yancy Cancino MD Facility:[facility] Start: 02-01-2023 ambulatory NIKOLAS SHAMMO Facility:[facility] Start: 12-05-2022 ambulatory NIKOLAS SHAMMO Facility:[facility] Start: 11-22-2022 End: 11-22-2022 ambulatory NIKOLAS SHAMMO Facility:[facility] Start: 11-02-2022 End: 11-03-[address] KACEY KAPOOR . Facility:[facility] Start: 10-24-2022 Encounter for [facility] l [facility]: 10-23-[facility]22 End: 10-24-2022 Encounter for general adult medical examination without abnormal findings NIKOLAS SHAMMO Facility:[facility] Start: 10-23-2022 End: 10-24-2022 ambulatory NIKOLAS SHAMMO Facility:[facility] Start: 09-28-2022 End: 09-29-[address] KACEY KAPOOR . Facility:[facility] Start: 09-26-2022 End: 09-26-2022 ambulatory DELONTE BAUTISTA . Facility:[facility] Start: 09-05-2022 End: 09-05-2022 ambulatory [facility] Facility:[facility] Start: 06-05-2022 End: 06-06-2022 ambulatory [facility] Facility:[facility] Start: 06-01-2022 End: 06-02-[address] KACEY KAPOOR . Facility:[facility] Start: 05-05-2022 End: 05-05-2022 ambulatory John Mack Facility:[facility] Start: 05-05-2022 Registered Recurring MD John Mack Work Phone: [facility]Infusion Therapy - O/P Start: 04-10-2022 End: 04-10-2022 ambulatory John Mack Facility:[facility] Start: 04-10-2022 End: 04-10-2022 Admission to same day surgery center MD John Mack Work Phone: [facility] [place] Start: 04-06-2022 End: 04-06-2022 ambulatory John Mack Facility:[facility] Start: 04-06-2022 End: 04-06-2022 Patient encounter procedure MD John Mack Work Phone: [facility]Surgical Testing Start: 03-30-2022 End: 03-30-2022 ambulatory Dominique Garrison Facility:[facility] Start: 03-30-2022 End: 03-30-2022 Patient encounter procedure MD John Mack Work Phone: [facility] [place] Start: 03-13-2022 End: 03-13-2022 ambulatory John Mack Facility:[facility] Start: 03-13-2022 End: 03-13-2022 Admission to same day [facility] [place] Start: 03-09-2022 End: 03-09-2022 ambulatory John Mack Facility:[facility] Start: 03-09-2022 End: 03-09-2022 Patient encounter procedure MD John Mack Work Phone: [facility] Start: 03-01-2022 End: 03-02-2022 ambulatory PAM FLANAGAN Facility: Start: 02-13-2022 End: 02-13-2022 ambulatory John Mack Facility:[facility] Start: 02-13-2022 End: 02-13-2022 Admission to same day surgery center MD John Mack Work Phone: [facility] [place] Start: 02-09-2022 End: 02-09-2022 ambulatory John Mack Facility:[facility] Start: 02-09-2022 End: 02-09-2022 Patient encounter procedure MD John Mack Work Phone: [facility] Start: 01-31-2022 End: 01-31-2022 ambulatory John Mack Facility:[facility] Start: 08-02-2020 End: 08-02-2020 Patient encounter procedure SANTIAGO HOLGUIN [facility] Start: 08-02-2020 End: 08-02-2020 Office outpatient new 60 minutes [facility] Holguin Work Phone: [facility] Rheumatology Comment on above: Lupus (HCC) (Primary Dx); Suppurative hidradenitis; Chronic fatigue; YULY (obstructive sleep apnea); Vitamin D insufficiency; Morbid obesity with BMI of 50.0-59.9, adult (HCC) Start: 06-03-2020 Patient encounter procedure ELIZABETH TERRELL [facility] Procedures Date Procedure Procedure Detail Performing Clinician Start: 04-10-2022 OR Wound Debridement/I&D/Hydradeniti s (Right) MD John Mack Work Phone: Start: 03-13-2022 OR Wound Debridement/I&D/Hydradeniti s (Not Applicable) MD John Mack Work Phone: Start: 02-13-2022 OR Wound Debridement/I&D/Hydradeniti s (Bilateral) MD John Mack Work Phone: Aerobic microbial culture MD John Mack Work Phone: Aerobic microbial culture MD John Mack Work Phone: Aerobic microbial culture MD John Mack Work Phone: Anaerobic microbial culture MD John Mack Work Phone: Anaerobic microbial culture MD John Mack Work Phone: Anaerobic microbial culture MD John Mack Work Phone: Investigation of transfusion reaction MD John Makc Work Phone: Investigation of transfusion reaction MD John Mack Work Phone: Investigation of transfusion reaction MD John Mack Work Phone: Plan of Treatment Date Care Activity Detail Author Start: 05-03-2022 Registered Recurring Registered Recu [facility] - O/P Start: 04-21-2022 Registered Recurring Registered Recu [facility] - O/P Start: 04-10-2022 [facility] Work Phone: Start: 04-10-2022 [facility] Work Phone: Start: 04-10-2022 OR Wound Debridement/I&D/Hydraden itis (Right) OR Wound Debridement/I&D/Hydrad enitis (Right) [facility] Start: 04-10-2022 End: 04-10-2022 Admission to same day surgery center Departed Surgical Day Care [facility] [place] Start: 04-06-2022 End: 04-06-2022 Patient encounter procedure Departed Clinical [facility] Start: 03-13-2022 End: 03-13-2022 [facility] Work Phone: Start: 02-13-2022 End: 02-13-2022 [facility] Work Phone: Start: 05-04-2020 Influenza vaccinatio n given Sequential Influenza Vaccine (#1) [facility] Start: 06-10-2019 Tetanus vaccination Tetanus: Every 1 0yrs [facility] Start: 11-17-2007 Hepatitis C antibody , confirmatory test Hepatitis C Screening [facility] Start: 2004 HIV screening HIV Screening [facility] Start: 2001 Adolescent depressio n screening assessment Depression Screening (PHQ9) [facility] Start: 1992 History and physical examination, annual for health maintenance Wellness Visit [facility] Start: 1989 Screening for malign ant neoplasm of cervix Pap Smear [facility] Patient Education [facility] Work Phone: Patient referral [facility] Work Phone: Immunizations Immunization Date Immunization Notes Care Provider Harriet lao 06-10-2009 meningococcal polysa ccharide (groups A, C, Y and W-135) diphtheria toxoid conjugate vaccine (MCV4P) [facility] 06-10-2009 tetanus toxoid, redu iam diphtheria toxoid, and acellular pertussis vaccine, adsorbed [facility] 06-09-2009 influenza, seasonal, injectable [facility] 06-15-2005 influenza, seasonal, injectable [facility] 12-14-2003 hepatitis B vaccine, pediatric or pediatric/adolescent dosage [facility] 08-26-2003 hepatitis B vaccine, pediatric or pediatric/adolescent dosage [facility] 03-30-2003 hepatitis B vaccine, pediatric or pediatric/adolescent dosage [facility] 02-22-1996 diphtheria, tetanus toxoids and acellular pertussis vaccine [facility] 12-24-1995 measles, mumps and r ubella virus vaccine [facility] 12-24-1995 poliovirus vaccine, inactivated [facility] 05-14-1991 diphtheria, tetanus toxoids and acellular pertussis vaccine [facility] 05-14-1991 haemophilus influenz ae type b vaccine, conjugate unspecified formulation [facility] 05-14-1991 poliovirus vaccine, inactivated [facility] 02-26-1991 measles, mumps and r ubella virus vaccine [facility] 12-18-1990 haemophilus influenz ae type b vaccine, conjugate unspecified formulation [facility] 07-01-1990 diphtheria, tetanus toxoids and acellular pertussis vaccine [facility] 04-29-1990 diphtheria, tetanus toxoids and acellular pertussis vaccine [facility] 04-29-1990 poliovirus vaccine, inactivated [facility] 02-27-1990 diphtheria, tetanus toxoids and acellular pertussis vaccine [facility] 02-27-1990 poliovirus vaccine, inactivated [facility] Payers Date Payer Category Payer Medicaid 2022 Medicare 2020 Medicaid [place] [id number] 2020-Present [id number] 2019 Medicare MEDICARE MEDICAR E PART A & B [id number] 2019-Present [place] [id number] 1989 Unknown [id number] 1989 Unknown [id number] 2.16.840.1.222718.3.579.2.593 1989 Unknown [id number] 2.16.840.1.372736.3.579.2.593 1989 Unknown [id number] 2.16.840.1.020908.3.579.2.593 1989 Unknown [id number] 2.16.840.1.171529.3.579.2.593 1989 Unknown [id number] 2.16.840.1.793638.3.579.2.593 1989 Unknown [id number] 2.16.840.1.460263.3.579.2.593 1989 Unknown [id number] 2.16.840.1.151925.3.579.2.593 1989 Unknown [id number] 2.16.840.1.049410.3.579.2.593 1989 Unknown [id number] 2.16.840.1.931541.3.579.2.593 1989 Unknown [id number] 2.16.840.1.869008.3.579.2.593 1989 Unknown [id number] 2.16.840.1.960053.3.579.2.593 1989 Unknown [id number] 2.16.840.1.555003.3.579.2.593 1989 Unknown [id number] 2.16.840.1.971760.3.579.2.196 1989 Unknown [id number] 2.16.840.1.027189.3.579.2.196 1989 Unknown [id number] 2.16.840.1.296488.3.579.2.196 1989 Unknown [id number] 2.16.840.1.435891.3.579.2.196 1959 Medicaid [id number] 1960 Medicare [id number] 1960 Self-pay [id number] Unknown [id number] Social History Date Type Detail Facility Start: 08-02-2020 End: 04-10-2022 Tobacco smoking status NHIS Former smoker [facility] Start: 08-02-2020 Cigarettes smoked current (pack per day) - Reported [facility] Start: 08-02-2020 Tobacco use and exposure Never used [facility] Start: 08-02-2020 Alcohol intake Lifetime non-d fabiola (finding) [facility] Start: 06-03-2020 History SDOH Alcohol Frequency 1 [facility] Sex Assigned At Not on file [facility] Exposure to SARS-CoV -2 (event) Not sure [facility] Start: 1989 Sex Assigned At Female F [facility] Goals Date Patient Goal Desired Activity /State Consultation note 11-02-2022 Note Date & Type Note Facility 11-02-2022 Note CONSULTATION CONSULTATION DATE: 11/02/2022 HISTORY: This is a 31-year-old female who returns to the clinic for a six week follow up for polyarthralgia, headache and cervicalgia. She was last seen on 09/28/2022 and, at that time, I referred her to a new PCP, as she thought her current PCP, was not addressing all of her concerns. She did present with neck pain at that time, and the goal was to re-evaluate her cervicalgia at this appointment today. Since her last appointment, he has established as a new patient with Nikolas Kovacs as her PCP. He is currently doing a workup for possibly autoimmune diseases. Today, she is complaining of polyarthralgia; knees, hips, elbows and shoulders. She describes her pain as sharp and rates it 7/10. She does see [facility] for her headaches and they have recently changed her medication to Nurtec 75 mg every other day. She has noted an improvement in her pain and feels that her Flexeril 10 mg at h.s. greatly helped with that as well. Other medications include Brooklyn 5/325 b.i.d., sumatriptan, gabapentin 300 mg b.i.d. and duloxetine 60 mg daily. Patient's REVIEW OF SYSTEMS / PAST MEDICAL HISTORY / ALLERGIES and IMAGES have been reviewed and noted on the chart. PHYSICAL EXAM: VITAL SIGNS: Blood pressure is 144/93. Heart rate is 79. Temperature is 97.3. She is 5'5 and weighs 159 kg. GENERAL IMPRESSION: Pleasant, appropriate, in no acute distress. FOCUSED EXAM - NECK: Range of motion is functional in lateral rotation and flexion/extension. Mild reproduction of spinal axial pain upon compression of C5, C6, C7 facets bilaterally. No radiating pain below the shoulders. MUSCULOSKELETAL: Upper and lower extremities motor is 5/5 bilaterally. No muscle weakness noted. NEUROLOGICALLY: Patient is neurologically intact. Bilateral brachioradialis, patellar and Achilles reflexes are 2/2. DIAGNOSIS: Chronic pain syndrome, cervicalgia and chronic lower back pain. PLAN: Her Flexeril will be increased to 20 mg q.h.s. as patient feels this gives her the most pain relief. We will continue with her Brooklyn 5/325 b.i.d. Education was given regarding stretches and exercises, and she is to continue working with her PCP on a rheumatology workup. We will see her in three months' time to maintain her pain medications. Patient agrees with this plan. [facility] Consultation note 09-28-2022 Note Date & Type Note Facility 09-28-2022 Note CONSULTATION CONSULTATION DATE: 09/28/2022 HISTORY OF PRESENT ILLNESS: This is a 31-year-old female who returns to the clinic for increased pain and for a three month follow up. The patient had a lumbar epidural steroid injection completed on 09/05/2022 and states she had significant relief to her lower back. Three days after the procedure, the patient felt she was declining, began having right sided facial pain and headaches. She does have a history of migraines naratriptan. She is also under the care of a neurologist. The patient went to her PCP. He thought it was right sided TMJ flare up. She subsequently went to the ER after her pain started traveling down her neck. She had a CT scan with and without contrast which was negative for any pathology. She has been placed, per the ER, on muscle relaxers and an oral steroid pack. Since then, the pain has greatly improved and she rates it 4/10 and dull at this time. She is not complaining of back pain today. Current medications include baclofen 10 mg q.h.s., gabapentin, Brooklyn 5/325 b.i.d., duloxetine, Remicade and Xarelto. The patient does have a history of blood clots. Activities that aggravate the pain are standing, walking, stairs and bending. She does use heat which decreases her pain. Patient's REVIEW OF SYSTEMS / PAST MEDICAL HISTORY / ALLERGIES and IMAGES have been reviewed and noted on the chart. PHYSICAL EXAM: VITAL SIGNS: Blood pressure 171/92, heart rate is 86. Temperature is 97.8. She is 5'5 , weighs 163 kg. GENERAL IMPRESSION: Pleasant, appropriate, in no acute distress. FOCUSED EXAM - NECK: Range of motion is functional in lateral rotation and flexion/extension. Mild reproduction of spinal axial pain upon deep compression along the C5, C6 and C7 and T1 facets. Pain does not radiate below the shoulders. MUSCULOSKELETAL: Bilateral upper extremities with motor 5/5. No motor weakness noted. No muscle atrophy noted. NEUROLOGICAL: Patchy hypoesthesia to bilateral fingertips. Brachioradialis and triceps reflexes are +2. DIAGNOSIS: Cervicalgia and chronic lower back pain. PLAN: I did recommend the patient to a new primary care provider here locally. Seeing that she is on oral steroids at this time, that prevents us from moving forward with any future procedures. She will be brought back to the clinic in four weeks' time for re-evaluation for her cervical pain. Patient is in agreement to this, and all question were answered today. [facility] Clinical Note 06-05-2022 Note Date & Type Note Facility 06-05-2022 Note PROCEDURE: XR HIP RT 2 3V W PELVIS COMPARISON: None. HISTORY: Pain in right hip joint FINDINGS: BONES:No fracture, acute abnormality, or significant arthropathy. SOFT TISSUES:Negative. No visible soft tissue swelling. EFFUSION:None visible. OTHER: Negative. IMPRESSION: No acute abnormality Electronically authenticated by: KATYA BECK Date: 2022-06-05 16:27 [facility] Consultation note 06-01-2022 Note Date & Type Note Facility 06-01-2022 Note CONSULTATION CONSULTATION DATE: 06/01/2022 HISTORY OF PRESENT ILLNESS: This is a pleasant, 29-year-old female, returning to the clinic for a three month follow up for her chronic lower back pain and radicular pain. She was last seen on 03/01/2022 which, at that time, she described her pain as 8/10 and throbbing. Patient has had some medication adjustments since her last appointment. She has recently started Remicade infusions q. 6 weeks, with her next appointment being tomorrow. She is on Rexulti, Brooklyn 5/325 b.i.d., gabapentin 300 mg b.i.d., Cymbalta, Lamictal, baclofen and Xarelto. The patient has a history of DVT, ADHD and bipolar. She feels that her symptoms are mostly well managed. She is having increased lower back pain today. Her recent imaging shows that she does have a herniated disc at L5-S1. She is complaining of bilateral radicular pain, left side, to the level of the tibial tuberosity; right to her first three toes. The pain is aggravated by twisting, pushing, pulling, standing, walking and housework. She did have a radiofrequency ablation series that was completed in November 2021. She denies any vasomotor weakness or new pain pattern. Patient's REVIEW OF SYSTEMS / PAST MEDICAL HISTORY / ALLERGIES and IMAGES have been reviewed and they are noted on the chart. PHYSICAL EXAM: VITAL SIGNS: Blood pressure 153/99. Heart rate is 91. Temperature is 97.7. She is 5'5, weighs 159.4 kg. GENERAL IMPRESSION: Pleasant, appropriate, no acute distress. FOCUSED EXAM - BACK: Range of motion is functional in lateral rotation and flexion/extension. Paravertebral muscles are non-spasmodic and non-tender to palpation. No reproduction of spinal axial pain to compression along the posterior elements of the lumbar facets of L3, L4, L5. Edgardo's point minimally tender to the right with no referral to the hip or groin. MUSCULOSKELETAL: Motor is 4/5 bilaterally. Weakness noted to the right anterior tibialis. Extensors are intact. Muscle tone is adequate. Right hip tenderness along the posterior elements of the joint. Bursa non-tender to deep palpation. Range of motion with adduction and abduction and lateral raises is intact. NEUROLOGICAL: Patchy hypoesthesia bilaterally to L5-S1 dermatome, right to the level of the toes. +1 patellar reflexes bilaterally. DIAGNOSIS: Lumbar degenerative disc, lumbar spondylosis, right hip pain and lumbar radiculitis. PLAN: We will move forward to authorize a lumbar epidural steroid injection at the level of L4. Her last hip x-ray was two years ago; therefore, we will obtain a new right hip and pelvis x-ray. Vitamin importance was discussed and patient is to start a multivitamin daily. Patient will be brought back to the clinic post procedure. She agrees to move forward. [facility] Consultation note 03-01-2022 Note Date & Type Note Facility 03-01-2022 Note CONSULTATION CONSULTATION DATE: 03/02/2022 This is a 31-year-old female returning to the clinic for a 3-month follow-up for her chronic pain syndrome and chronic lower back pain and bilateral hips. The patient does have hidradenitis suppurativia and is currently under the care of Dr. Mack in the [facility] in [place]. She has been having increasing amounts of boils which are causing a lot of pain. He has recently removed four wounds and has one that is deeply patched. It was found that she had a massive infection and is currently on Levaquin and Flagyl. Dr. Mack has placed her on Brooklyn 5/325 b.i.d. which is the same medication dose and frequency as our prescription. The patient has put our prescription on hold and is using the wound clinic only at this time. She is currently working with a technical agronomist in [place] and considering Remicade infusions. The patient does have chronic back and hip pain she describes as a level 8 today. It is not just isolated to those areas, just all over body aches and pain. It is exaggerated by walking, standing, lying, evening hours and physical activity. She does use heat on her back in the evening which is beneficial. In addition to the Brooklyn, she takes gabapentin 300 mg b.i.d., Baclofen 10 mg q.h.s., Tylenol and Xarelto. She will occasionally take a Naprosyn as needed. REVIEW OF SYSTEMS, PAST MEDICAL HISTORY, ALLERGIES AND IMAGES: Have been reviewed and noted in the chart. PHYSICAL EXAM: VITAL SIGNS: Blood pressure 132/86, heart rate is 101, temperature is 97.7. Height is 5'5 , weighs 154 kg. GENERAL APPEARANCE: The patient is in moderate discomfort, is pleasant and appropriate. FOCUSED EXAM: BACK: Range of motion is guarded but functional in lateral rotation and flexion extension. Reproduction of the patient's pain pattern to direct compression along the lower lumbar facets of L4, L5 bilaterally. Pain does radiate across bilateral buttocks to her hips. Edgardo's point is mildly tender bilaterally with mildly positive Mecca's and compression test. MUSCULOSKELETAL: Motor is intact, 5 out of 5 strength bilaterally. Walks with an antalgic gait and is not using an assistive device. NEUROLOGICAL: Patchy hypesthesia noted along right L4-L5 dermatomes that extend below the knee. DIAGNOSIS: Chronic pain syndrome, lumbar radiculitis, bilateral hip pain and lumbar degenerative disk. PLAN: At this time interventional procedures for her back are on hold while she is currently undergoing antibiotic therapy for her wound infections. The patient is becoming tearful as we talk and it feels that she is just in an all-over flare-up of pain. She will be placed on a five-day course of 40 mg of prednisone. I encouraged her to discuss with Dr. Mack at [place] regarding continuing the Brooklyn for her. We will see her in three months' time unless otherwise indicated, or if she prefers to stick with Dr. Mack at this time, that is fine as well. The patient agrees with the plan of care. [facility] Signed and Approved by: ACE CERVANTES . 03/09/2022 10:22:00 [facility] Evaluation note Note Date & Type Note Facility Evaluation note No assessment information availa [facility] Work Phone: Instructions * Patient Instructions* Corine Best MA - 08/02/2020 1:49 PM EST YOU DO NOT HAVE LUPUS START CPAP LOSE WEIGHT TAKE VITAMIN D3 1,000 UNITS DAILY documented in this encounter History of Present Illness * Santiago Holguin MD - 08/02/2020 1:32 PM EST I had the pleasure of seeing Margaret Prieto in consultation at [facility] [address] [place] [phone] for evaluation of lupus Elizabeth Terrell MD;Elizabeth Terrell MD HISTORY OF PRESENT ILLNESS: Margaret Prieto is a 29 y.o. female who presents for evaluation of possible lupus or any other autoimmune disease. This became a concern as patient has had recurrent boils/? Hidradenitis suppurativa and she was also found to have an elevated sedimentation rate of 56, CRP only 1.9. Rest of the rheumatological labs are negative, POLINA AKIRA negative. Wants to make sure that her infection is not relatedto bad immune system. On further questioning she denies any alopecia oral ulcers uveitis Raynaud's malar rash or any other photosensitive rashes. She does complain of significant fatigue but has newly diagnosed obstructive sleep apnea for which she is awaiting a CPAP machine. She also has struggledwith severely morbid obesity with BMI approaching 60. She is not able to exercise much on account of frequent boils infections. She also reports anxiety. As far as the? Boils are concerned, on further questioning patient reveals she was given a diagnosis of hidradenitis suppurativa in 2009 by a surgeon who also tried Humira injections but they were not effective and she continues to have these issues. She has lesions in the axillary region but predominantly in the groins and the lower half of the abdomen. She is really depressed about the situation. She gets Brooklyn on a as needed basis for pain.. She was also found to have slightly low vitamin D level at 19 but not taking any supplementation. 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 HYDROcodone-acetaminophen (NORCO) 5-325 mg per tablet TAKE 1 TABLET BY MOUTH TWICE DAILY NEEDED MUST LAST 30 DAYS isosorbide mononitrate (IMDUR) 30 MG 24 hr tablet Take 15 mg by mouth daily . metoprolol tartrate (LOPRESSOR) 25 MG tablet Take 25 mg by mouth 2 (two) times a day . spironolactone (ALDACTONE) 25 MG tablet Take 25 mg by mouth daily . sucralfate (CARAFATE) 1 gram tablet Take 1 g by mouth 4 (four) times a day . lidocaine HCL 3 % Crea APPLY TO THE AFFECTED AREA(S) BY TOPICAL ROUTE 2 TIMES PER DAY . No current facility-administered medications for this visit. Past Medical History: She Past Medical History: Diagnosis Date Acute recurrent frontal sinusitis Anxiety Bronchitis Chest pain Chronic headaches Depression Edema External otitis Factor V deficiency ([facility]) Factor V Leiden mutation ([facility]) GERD (gastroesophageal reflux disease) Shalom's disease Hidradenitis Hidradenitis suppurativa History of DVT (deep vein thrombosis) Hypercholesteremia Hypertension Morbid obesity with BMI of 50.0-59.9, adult ([facility]) Osteoarthritis Palpitations Perineal abscess Pilonidal cyst Pneumonia Pulmonary embolism ([facility]) Sebaceous cyst Shortness of breath Skin ulcer of groin with fat layer exposed ([facility]) Tachycardia Thrombophilia ([facility]) Type 2 diabetes mellitus ([facility]) Past Surgical History: She Past Surgical History: Procedure Laterality Date APPENDECTOMY CHOLECYSTECTOMY COLONOSCOPY PILONIDAL CYST DRAINAGE THYROIDECTOMY TONSILECTOMY, ADENOIDECTOMY, BILATERAL MYRINGOTOMY AND TUBES WISDOM TOOTH EXTRACTION Family History: Her Family History Problem Relation Age of Onset Hypertension Mother Diabetes Mother Heart disease Mother Heart attack Mother Lupus Mother Hyperlipidemia Father Hypertension Father Hypothyroidism Father Heart disease Sister Thrombosis Brother Thrombosis Maternal Aunt Thrombosis Maternal Uncle Heart disease Maternal Uncle Heart attack Maternal Uncle Heart disease Paternal Grandmother Cancer Paternal Grandfather COLON Macular degeneration Paternal Grandfather Social History: She Social History Socioeconomic History Marital status: Single Spouse name: Not on file Number of children: Not on file Years of education: Not on file Highest education level: Not on file Occupational History Not on file Social Needs Financial resource strain: Not on file Food insecurity Worry: Not on file Inability: Not on file Transportation needs Medical: Not on file Non-medical: Not on file Tobacco Use Smoking status: Former Smoker Packs/day: 2.00 Smokeless tobacco: Never Used Substance and Sexual Activity Alcohol use: Never Frequency: Never Drug use: Never Sexual activity: Not on file Lifestyle Physical activity Days per week: Not on file Minutes per session: Not on file Stress: Not on file Relationships Social connections Talks on phone: Not on file Gets together: Not on file Attends mormonism service: Not on file Active member of club or organization: Not on file Attends meetings of clubs or organizations: Not on file Relationship status: Not on file Other Topics Concern Not on file Social History Narrative Not on file ROS, SEE ATTESTED STAFF NOTE BP (!) 150/91 Pulse 91 Temp 98.4 F (36.9 C) Ht 5' 5 Wt (!) 160.1 kg (353 lb) SpO2 97% BMI 58.74 kg/m General appearance: :well developed, well nourished, alert, oriented in no acute distress, anxious Head: Normocephalic, without obvious abnormality, atraumatic, No alopecia, No parotid gland enlargement Eyes: conjunctivae/corneas clear. PERRL, EOM's intact. ,no uveitis Throat: Lips, mucosa, and tongue normal. Teeth and gums normal. No oral ulcers, Normal salivary pool Neck: supple, symmetrical, no adenopathy and no thyromegaly , no tenderness/mass/nodules Back: no kyphosis present, no scoliosis present, range of motion normal , positive lumbar paravertebral muscle tenderness Lungs: clear to auscultation bilaterally, no rales or crackles, Heart: regular rate and rhythm, S1, S2 normal, no murmur, click, rub or gallop Abdomen: soft, non-tender. Bowel sounds normal. No masses, no hepatosplenomegaly Extremities: No clubbing cyanosis , 1+ pitting edema , no varicosities, stasis dermatitis Pulses: 2+ and symmetric Skin: Skin color, texture, turgor normal. Scattered nodules/boils with scarring in the inguinal region as well as lower half of the abdomen and a few lesions bilateral axillary region. Lymph nodes: Cervical, supraclavicular, and axillary nodes normal. Neurologic: Alert and oriented X 3, normal strength and tone.. Normal coordination and gait Musculoskeletal: Reveals normal range of motion in all the joints, minor knee crepitus, no obvious synovitis in any of the joints, no obvious joint deformities, no subluxation or ulnar deviation. Muscle strength is normal in all the muscle groups.Multiple tender points of FMS /absent REVIEW OF DATA: Labs dated May 26/2020, rheumatoid factor negative, antidsDNA antibody negative, SSA SSB antibody negative Qureshi antibody negative, FLAT POLISHER antibody negative, antihistone antibodies borderline positive at 1.0, serum protein electrophoresis fine, no M spike, serum immunoglobulins levels normal, POLINA negative. Electrolytes normal, CRP only 1.9, sedimentation rate high at 56, 25 hydroxy vitamin D level slightly low at 19 IMPRESSION/PLAN 1. Lupus (HCC), there is no evidence for this diagnosis, no evidence for rheumatoid arthritis, no evidence for mixed connective tissue disease patient reassured 2. Suppurative hidradenitis, suboptimally treated and with poor response patient has failed medicalmanagement. She is in discussion with surgery about surgical intervention. I agree with it Patient does not have any association with lupus but could be more of an auto inflammatory disease.Sed rate could be elevated because of this. We can also be due to morbid obesity 3. Chronic fatigue, appears to be multifactorial to include repeated infections obstructive sleep apnea vitamin D insufficiency along with diet and exercise on these underlying disorders need to be treated and addressed 4. YULY (obstructive sleep apnea), awaiting CPAP machine encouraged to use regularly as it can help improve fatigue due to improvement in oxygenation 5. Vitamin D insufficiency, not on treatment prescription for vitamin D3 1000 units daily provided 6. Morbid obesity with BMI of 50.0-59.9, adult (HCC), contributing to a lot of bodily symptoms dietand exercise emphasized Because autoimmune disease is associated with increased risk of atherosclerosis, recommend careful attention to blood pressure and lipid control. I recommend using the preventive guidelines established for people with diabetes. Return if symptoms worsen or fail to improve. Note was not shared with patient: Patient/Proxy specifically declined release of this note. Not on my chart Santiago Holguin MD Rheumatology Note: This dictation was generated using [employer] voice recognition software. Please excuse any grammatical or spelling errors that may have occurred using the system. A * Corine Best MA - 08/02/2020 1:25 PM EST RAPID3 Composite Score MDHAQ (0-10): 7.0 Patient pain VAS (0-10): 8.0 Patient global assessment VAS (0-10): 10.0 RAPID3 Total Score: 25.0 Remission: <3 Low Disease Activity: <6 Moderate Disease Activity: >=6 and <=12 High Disease Activity: >12 Review of Systems CONSTITUTIONAL: Fever yes Fatigue yes Abnormal weight loss/gain no HEENT: Change of Vision yes Dry eyes no Painful eye no Dry Mouth yes Mouth sores/lesions no Hair loss no Difficulty swallowing yes Scalp Tenderness yes Jaw Pain no Swollen glands no CVS: Chest pain/ discomfort yes Palpitations yes RESPIRATORY: Shortness of breath no Difficulty breathing no Cough no Edema yes : Blood in urine yes Painful urination yes GI: Change in stool yes Black stool no Visible blood in stool no Abdominal pain yes Heartburn yes NEURO: Convulsions no Headache yes Dizziness yes Weakness yes Numbness yes INTEGUMENTARY: Rash, generalized no Rash, facial no Finger pain with discoloration (Raynaud s)no Digital ulcers no HEMATOLOGY: Easy bruisability no PSYCH: Anxiety yes Depression yes Problems with social activities no I reviewed the ROS as documented By my staff above and agree Santiago Holguin MD Note was not shared with patient: Patient/Proxy specifically declined release of this note. Not on my chart documented in this encounter Assessments Diagnosis Lupus (HCC)- Primary Systemic lupus erythematosus Suppurative hidradenitis Hidradenitis Chronic fatigue Other malaise and fatigue YULY (obstructive sleep apnea) Obstructive sleep apnea (adult) (pediatric) Vitamin D insufficiency Morbid obesity with BMI of 50.0-59.9, adult (HCC) Advance Directives Documents on File Type Date Recorded Patient Drive Tester Expl anation Advance Directives and Livin g Will 08/02/2020 1:15 PM Advance Directive Response Recorded Date/ Time Advance Directives No April 17, 2022 12:06pm Summary Purpose Family History Relationship Condition Age at Onset Recorded Date/T jose father Hyperthyroidism Unknown Hypertension Unknown Not Specified Myocardial infarction Unknown Diabetes mellitus Unknown Gout Unknown Hypotension Unknown Methylenetetrahydrof olate reductase (MTHFR) gene mutation Unknown Schizophrenia Unknown brother Factor V Leiden mutation Unknown Chief Complaint and Reason for Visit Chief Complaint Lesions of Groin and Legs Lesions of Groin and Legs Abscess Abscess L73.2 Right Thigh Abscess Right Thigh Abscess Hidradenitis supprativa. Groin/Abdomen lesions Chief Complaint Lesions of Groin and Legs Lesions of Groin and Legs Abscess Abscess L73.2 Right Thigh Abscess Right Thigh Abscess Hidradenitis supprativa. Additional Source Comments Reason for Visit (unrecogniz ed section and content) Reason Comments Consult LUPUS Status Reason Specialty Diagnoses / Procedures Referred By Contact Referred To Contact Closed Rheumatology Diagnoses Lupus (HCC) Elizabeth Terrell MD [address] [place] [address] [place] [address] Santiago Holguin MD [facility] [place] [address] INFORMATION SOURCE (unrecogn ized section and content) DATE CREATED AUTHOR 08/02/2020 [facility] DATE CREATED AUTHOR AUTHOR'S ORGANIZ ATION 10/30/2021 [facility] DATE CREATED AUTHOR AUTHOR'S ORGANIZ ATION 04/05/2022 [facility] DATE CREATED AUTHOR AUTHOR'S ORGANIZ ATION 10/07/2022 [facility] DATE CREATED AUTHOR AUTHOR'S ORGANIZ ATION 12/07/2022 [facility] DATE CREATED AUTHOR AUTHOR'S ORGANIZ ATION 07/03/2023 [facility] Care Teams (unrecognized sec tion and content) Team Status: Inactive Member Role Status Dates Pam Flanagan PA-C Primary Care Provider Activ e John Mack MD Attending Provider Active Team Status: Active Member Role Status Dates Pam Flanagan PA-C Primary Care Provider Activ e John Mack MD Attending Provider Active Team Status: Inactive Member Role Status Dates John Mack MD Attending Provider Active Pam Flanagan PA-C Primary Care Provider Activ e Team Status: Active Member Role Status Dates Pam Flanagan PA-C Primary Care Provider Activ e Dominique Garrison DO Attending Provider Active Team Status: Inactive Member Role Status Dates Pam Flanagan PA-C Primary Care Provider Activ e Dominique Garrison DO Attending Provider Active Team Status: Active Member Role Status Dates Pam Flanagan PA-C Primary Care Provider Activ e Goals (unrecognized section and content) Goals may be documented in a n alternate section FOR RECORDS PERTAINING TO PATIENTS WHO ARE OR HAVE BEEN ENROLLED IN A CHEMICAL DEPENDENCY/SUBSTANCEABUSE PROGRAM, SOME INFORMATION MAY BE OMITTED. This clinical summary was aggregated from multiple sources. Caution should be exercised in using it in the provision of clinical care. This summary normalizes information from multiple sources, and as a consequence, information in this document may materially change the coding, format and clinical context of patient data. In addition, data may be omitted in some cases. CLINICAL DECISIONS SHOULD BE BASED ON THE PRIMARY CLINICAL RECORDS. [facility] [email or web address] [facility]. provides no warranty or guarantee of the accuracy or completeness of information in this document.
--- NOTE | 2023-09-06 11:36 | P.CN_ITS ---
Consult Note: HPI Data of Consult Patient: known to practice within the last 3 years Requesting Physician: Brenda Gonzalez NP Primary Care Provider: ABBY BYNUM APRN-CORPORATE COMPLIANCE OFFICER Consult Narrative Reason for consult: f/u Narrative: Margaret Grullon a pleasant 32 year old female presents for evaluation and management of chronic low back pain. Patient recently underwent bilateral L4-5 L5-S1 (L3, 4, 5) thermal RFA with 60% ongoing pain relief. Continues to have muscle tightness and superficial pain in low back today 02/10. cc:: CC: Brenda Gonzalez NP Review of Systems ROS Status of ROS 10 or more systems reviewed and unremark able except as noted in history and below Musculoskeletal Reports: back pain, extremity swelling, joint pain and muscle weakness PFSH PFSH Medical History Hidradenitis suppurativa ?L73.2 - Hidradenitis suppurativa (ICD-10) Abscess ?L02.91 - Cutaneous abscess, unspecified (ICD-10) Loud snoring ?R06.83 - Snoring (ICD-10) Sleep apnea ?G47.30 - Sleep apnea, unspecified (ICD-10) Osteoarthritis ?M19.90 - Unspecified osteoarthritis, unspecified site (ICD-10) Dm-Schlatter's disease ?M92.529 - Juvenile osteochondrosis of tibia tubercle, unspecified leg (ICD- 10) Anemia ?D64.9 - Anemia, unspecified (ICD-10) Heartburn ?R12 - Heartburn (ICD-10) Anxiety ?F41.9 - Anxiety disorder, unspecified (ICD-10) Acid reflux ?K21.9 - Gastro-esophageal reflux disease without esophagitis (ICD-10) Factor V Leiden ?D68.51 - Activated protein C resistance (ICD-10) 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 - Autoimmune thyroiditis (ICD-10) Pulmonary embolism ?I26.99 - Other pulmonary embolism without acute cor pulmonale (ICD-10) High cholesterol ?E78.00 - Pure hypercholesterolemia, unspecified (ICD-10) Hypertension ?I10 - Essential (primary) hypertension (ICD-10) Irregular heart beat ?I49.9 - Cardiac arrhythmia, unspecified (ICD-10) Chest pain ?R07.9 - Chest pain, unspecified (ICD-10) Surgical History Hx of cholecystectomy ?Z90.49 - Acquired absence of other specified parts of digestive tract (ICD- 10) H/O partial thyroidectomy ?E89.0 - Postprocedural hypothyroidism (ICD-10) [place] teeth extracted ?K08.409 - Partial loss of teeth, unspecified cause, unspecified class (ICD- 10) Hx of tonsillectomy ?Z90.89 - Acquired absence of other organs (ICD-10) History of appendectomy ?Z90.49 - Acquired absence of other specified parts of digestive tract (ICD- 10) Social History Smoking status: Current every day smoker Meds Home Medications and Allergies Home Medications Medication Instructions Recorded Confirmed Type apixaban 5 mg tablet (Eliquis) 5 mg PO BID 02/01/23 06/25/23 History atomoxetine 60 mg capsule 60 mg PO QDAY 02/01/23 06/25/23 History cyclobenzaprine 10 mg tablet 10 mg PO BID 02/01/23 06/25/23 History duloxetine 60 mg capsule,delayed 60 mg PO QDAY 02/01/23 06/25/23 History release (Cymbalta) gabapentin 300 mg capsule 300 mg PO Q8H 02/01/23 06/25/23 History hydrocodone 5 mg-acetaminophen 325 1 tab PO BID PRN pain 02/01/23 06/25/23 History mg tablet isosorbide mononitrate 10 mg tablet 15 mg PO QDAY 02/01/23 06/25/23 History lamotrigine 25 mg tablet (Lamictal) 25 mg PO QDAY 02/01/23 06/25/23 History metoprolol tartrate 50 mg tablet 50 mg PO BID 02/01/23 06/25/23 History (Lopressor) omeprazole 20 mg capsule,delayed 20 mg PO QDAY 02/01/23 06/25/23 History release prazosin 1 mg capsule (Minipress) 1 mg PO QDAY 02/01/23 06/25/23 History rimegepant 75 mg disintegrating 75 mg PO QDAY PRN migraine headache 02/01/23 06/25/23 History tablet (Nurtec ODT) spironolactone 25 mg tablet 25 mg PO QDAY 02/01/23 06/25/23 History sumatriptan succinate 50 mg tablet See Rx Instructions PO .COMPLEX 02/01/23 06/25/23 History Allergies Allergy/AdvReac Type Severity Reaction Status Date / Time amoxicillin Allergy Severe Unknown Verified 06/25/23 08:05 cefaclor [From Ceclor] Allergy Severe Unknown Verified 06/25/23 08:05 ciprofloxacin [From Cipro] Allergy Severe Hives Verified 06/25/23 08:05 Estrogens Allergy Severe Unknown Verified 06/25/23 08:05 Sulfa (Sulfonamide Allergy Severe Hives Verified 06/25/23 08:05 Antibiotics) tetanus and diphtheria Allergy Severe Unknown Verified 06/25/23 08:05 toxoids Exam Constitutional Documenting provider has reviewed patient's vital signs: yes Common normals: no apparent distress, oriented x3, no limitations, healthy appearing, alert and well nourished General appearance: cooperative, comfortable and well developed Nutritional appearance: obese Orientation/consciousness: Yes awake, Yes oriented to person, Yes oriented to place and Yes oriented to time HENMT Common normals: normocephalic and moist oral mucous membranes Respiratory Common normals: normal respiratory effort, no retractions and no use of accessory muscles Effort & inspection: able to speak in complete sentences and symmetric chest movement Back & Pelvis Lumbar spine/lower back: normal to inspection, ROM limited and pain with ROM Other: positive lumbar facet loading pain bilat muscle strength 5/5 bilat with intact sensation bilat LE Extremity Common normals: normal capillary refill and no joint enlargement General: edema Neuro Common normals: oriented x3, CN's II-XII intact bilaterally, moves all extremities, no focal motor deficits, no sensory deficits noted and deep tendon reflexes 2+ bilaterally Gait (neuro): antalgic Assessment and Plan Assessment and Plan (1) Lumbar stenosis with neurogenic claudication: (2) Muscle spasm: (3) Lumbar spondylosis: (4) Chronic prescription opiate use: Assessment and Plan: I feel these medications are improving the patient's quality of life and allow them to tolerate activities of daily living as well as participate in recreational activity.? The patient does not report intolerable side effects. The patient is NOT opioid naive and non-pharmacologic and non-opioid treatment has failed to significantly relieve the patient's pain and improve functionality. The patient has a diagnosis that is related to a somatic or visceral pain etiology. ? ?? I reviewed with the patient the potential risks and side effects with the use of? opioid medications including but not limited to respiratory depression,? sedation, and even . I verified the patient has access to naloxone should? these effects occur. I advised the patient to avoid the use of any other? sedation substances including alcohol, THC, and benzodiazepines while? taking opioid medications due to the risk of compounding side effects and? detrimental outcomes. I reviewed the FLIGHT ATTENDANT/INFLIGHT MANAGER, pain treatment agreement, urine? drug screen, and opioid start talking forms. The patient was advised to let? their family know they had Naloxone in case they would need to administer? the medication.? ?? A drug screen was completed within the last year, and no aberrancies were noted regarding their use of controlled substances. The patient understands they are subject to the terms and conditions of the pain contract that they have signed. ? ?? I have checked an [facility] report on this patient today and there are no aberran cies noted in the prescribing history.? Plan update lumbar MRI to evaluate for injection therapy. Last MRI from 2021. Patient continues to have low back pain with radiculopathy and NC unresponsive to HEP/PT and medication therapy patient was dismissed from [facility] where she sees numerous providers and is experiencing a decline in her health, we called her PCP office and she can be seen up until 09/29/23 and take classes to be reinstated as a patient. Patient verbalized understanding and will call PCP to be seen and evaluated continue current medications, tolerating well without side effects f/u after MRI
== END 2023-09-06 11:00 | disposition home or self-care (01) ==
PROVIDERS: PCP Nurse Practitioner Primary Care; Visit Provider Nurse Practitioner
DX: M48.062 Spinal stenosis, lumbar region with neurogenic claudication (principal); M62.838 Other muscle spasm; M47.816 Spondylosis without myelopathy or radiculopathy, lumbar region; Z79.891 Long term (current) use of opiate analgesic
CPT/HCPCS: G0463

== ENCOUNTER 2023-09-12 10:19 | Outpatient (OUT) | payer MEDICARE, MEDICAID, SELFPAY ==
--- NOTE | 2023-09-12 10:22 | MR_ITS ---
The [address] [address] Patient Name: TERESSA PRIETO MRN: [id number] date: 1990 Sex: F Assigned Patient Location: MRI Current Patient Location: MRI Accession/Order Number: [id number] Exam Date: 09/12/2023 11:00 Report Date: 09/12/2023 12:02 At the request of: MIRTHA CALZADA Procedure: MR lumbar spine wo con MRI LUMBAR SPINE WITHOUT CONTRAST: 09/12/2023 11:00 AM EST History:lumbar stenosis . Comparison: 10/05/2020 . Sequences per routine unenhanced protocol. STUDY QUALITY: Modest motion artifact on sagittal T2 STIR NUMBERING SCHEME: There is a transitional vertebra at the lumbosacral junction. This will be labeled as a partially lumbarized S1. This same numbering scheme was utilized on the prior study. OSSEOUS: No marrow edema. No compression deformity. SPINAL CANAL SIZE: Developmentally is average in size. LOWER THORACIC LEVELS: No central stenosis at T11-T12 T12-L1: No HNP or central stenosis. Moderate to significant facet DJD L1-2: No HNP or central stenosis. Facet tropism. Moderate to significant facet DJD L2-3: No HNP or central stenosis. Facet tropism. Moderate to significant facet DJD. L3-4: No HNP or central stenosis. Moderate to significant facet DJD. L4-5: No HNP or central stenosis. Moderate to significant facet DJD. L5-S1: Modest loss of disc space height far posteriorly. Again, loss of water signal within the disc. Broad-based spondylosis and disc bulge is again present. Superimposed right-sided disc extrusion superior to disc space level slightly asymmetrically effaces the partially tapered sac.. This is unchanged. Severe facet DJD with overgrowth is again demonstrated.. Posterior ligaments are not prominent. There is some prominence of the posterior epidural fat mid L5 level extending some extension to the disc space. There is a modest central stenosis which is unchanged. Right L5 foramen is again moderately to significantly narrowed by protruding disc material greater than facet overgrowth. Effacement of the right L5 root in its foramen is unchanged. Left L5 foramen is moderately narrowed by protruding disc material and facet overgrowth. No change. Left L5 root is again mildly effaced.. SPINAL CORD: No evidence of myelomalacia. No syrinx is evident. CONAL TIP: Using this numbering scheme is low-lying at mid to lower L2. There is no lipomatous thickening of the filum terminale EXTRASPINAL SOFT TISSUES: No acute finding OTHER: None MR/MR lumbar spine wo con IMPRESSION: 1. No interval change. 2. Numbering scheme as described. If desired, further evaluation of numbering scheme using a combination of overlapping AP and lateral T and L-spine films at/or direct counting under fluoroscopy. 3. A modest central stenosis from mid L5 through the L5-S1 interspace is unchanged. This is secondary to degenerative changes and some abundant posterior epidural fat primarily superior to the disc space level.. 4. Disc extrusion to the right of midline at L5-S1 is predominantly superior to disc space level. It is unchanged. 5. Compromises of the right greater than left L5 foramina are unchanged.. 6. Multilevel facet DJD greater than expected for age of 32. Electronically authenticated by: SUSANNA DUNLAP Date: 09/12/2023 12:02
--- OUTSIDE RECORDS SUMMARY | 2023-09-12 10:23 | XMS_ITS | CCD ---
Author Name Unknown Address [address] [place] [address] Organization [facility] Care Team Providers Care Snow Technician Name Role Phone Elizabeth Terrell Primary Care Provider SANTIAGO HOLGUIN Admitting Unavailable ELIZABETH TERRELL Referring Unavailable ELIZABETH TERRELL Primary Care Unavailable SANTIAGO HOLGUIN Attending Unavailable ELIZABETH TERRELL Primary Care Unavailable SANTIAGO HOLGUIN Attending Unavailable MD John Mack Attending Provider BRIAN Flanagan Primary Care Provider DO Dominique Garrison Attending Provider Amck, John Attending Unavailable Pam Flanagan Primary Care [...] Primary Care Unavailable Mack, John Admitting Unavailable [facility] Primary Care Unava ilmello KAPOOR ., DR KACEY Gray Admitting Unavailable ANTWON ., DR KACEY Gray Consulting Unavailable ANTWON ., DR KACEY Gray Attending Unavailable [place] ., DR KACEY Gray Admitting Unavailable CERVANTES ., ACE Consulting Unavailable [facility] Unavailable [place] ., DR KACEY Gray Attending Unavailable [facility] Unavailable CERVANTES ., ACE Consulting Unavailable [place] ., DR KACEY Gray Admitting Unavailable [place] ., DR KACEY Gray Attending Unavailable SHAMMO, GUAYNABO Primary Care Unavailable LAKSHMIPATHY ., NARENDRANATH Attending Norma vailable LAKSHMIPATHY ., NARENDRANATH Admitting Norma vailable [facility] ., DR KACEY Gray Admitting Unavailable SHAMMO, NIKOLAS Primary Care Unavailable CERVANTES ., ACE Consulting Unavailable [place] ., DR KACEY Gray Attending Unavailable SHAMMO, NIKOLAS Admitting Unavailable SHAMMO, GUAYNABO Primary Care Unavailable SHAMMO, NIKOLAS Attending Unavailable [facility] Unava ilable CERVANTES ., ACE Attending [...] Consulting Unavailable MICHELE ., DELONTE Attending Unavailable [facility] Unava ilable MICHELE ., DELONTE Admitting Unavailable RANI .CHINYERE Consulting Unavailabl e DEREK MIRELES Consulting Unavailable [facility] ., DR KACEY Gray Attending Unavailable [facility] Unava ilable CERVANTES ., ACE Consulting Unavailable [place] ., DR KACEY Gray Admitting Unavailable Barak CORTES, Yancy Cunningham Attending Unavailable Barak CORTES, Yancy Cunningham Attending Unavailable Barak CORTES, Yancy Cunningham Attending Unavailable Barak CORTES, Yancy Cunningham Attending Unavailable Allergies Allergy Classification Reported Allergen(s) Allergy Type Date of Onset Reaction(s) Facility (4 sources) Allopurinol; Translations: [ALLOPURINOL] Drug Allergy 05-12-20 [facility] (7 sources) Amoxicillin; Translations: [AMOXICILLIN] Drug Allergy 02-29-20 16 Hives [facility] (7 sources) Cefaclor; Translations: [CEFACLOR] Drug Allergy 04-28-20 13 Hives, Other (See Comments) [facility] (2 sources) Ciprofloxacin; Translations: [CIPROFLOXACIN] Drug Allergy 06-03-20 [facility] (4 sources) Estrogens; Translations: [ESTROGENS] Drug Allergy 01-29-20 15 Other (See Comments) [facility] (2 sources) Penicillins; Translations: [PENICILLINS] Propensity to adverse reactions to drug 02-15-20 13 Hives, Rash [facility] (2 sources) Sulfonamides (Antibiotic); Translations: [SULFA (SULFONAMIDE ANTIBIOTICS)] Propensity to adverse reactions to drug 06-03-20 [facility] (5 sources) Sulfamethoxazole Drug Allergy 02-01-20 22 [facility] (5 sources) Trimethoprim Drug Allergy 02-01-20 [facility] (5 sources) DPT Allergy to substance 02-01-20 Redness of Skin [facility] (5 sources) surgical kory Allergy to substance 02-01-20 [facility] (5 sources) hormones Propensity to adverse reactions 02-01-20 will cause blood clots [facility] (2 sources) Amoxicillin Drug Allergy [facility] (2 sources) Cefaclor Drug Allergy [facility] (2 sources) Ciprofloxacin Drug Allergy 09-03-19 [facility] (2 sources) Sulfonamides (Antibiotic) Drug allergy (disorder) 09-03-19 [facility] Medications Current Medications Medication Drug Class(es) [...] 08-02-2008-02-2020 Chronic Other aftercare (1 source) Other intermediate (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 therapy; Translations: [OTH SHIFT SUPERINTENDENT CAUSTIC CRESYLATE CURRENT DRUG THERAPY] Onset: 11-24-19 Episodic Other aftercare (1 source) snf (current) use of anticoagulants; Translations: [SHIFT SUPERINTENDENT CAUSTIC CRESYLATE CURRNT USE ANTICOAGULANTS] Onset: 11-24-19 Episodic Other [...] 11-22-2022 BASO # 0.0 103/ul Normal 0.0-0.1 [facility] Comment on above: Performed By: #### H H #### [facility] [address] [address] [address] Ron Sims Basophils/100 WBC (Bld) 0.3 % Normal 0.2-2.0 [facility] Comment on above: Performed By: #### H H #### [facility] [address] [address] [address] Ron Sims EO # 0.1 103/ul Normal 0.0-0.7 [facility] Comment on above: Performed By: #### H H #### [facility] [address] [address] [address] Ron Sims Eosinophils/100 WBC (Bld) 0.8 % Critically low 0.9-7.0 [facility] Comment on above: Performed By: #### H H #### [facility] [address] [address] [address] Ron Sims Erythrocyte distribution width (RBC) [Ratio] 13.5 % Normal 11.0-15.0 [facility] Comment on above: Performed By: #### H H #### [facility] [address] [address] [address] Ron Sims Hematocrit (Bld) [Volume fraction] 42.3 % Normal 36.0-48.0 [facility] Comment on above: Performed By: #### H H #### [facility] [address] [address] [address] Ron Sims Hemoglobin (Bld) [Mass/Vol] 13.9 g/dL Normal 12.0-16.0 [facility] Comment on above: Performed By: #### H H #### [facility] [address] [place] [address] Dr. Ron Sims IG # 0.08 10e3/ul Critically high 0.00-0.03 [facility] Comment on above: Performed By: #### H H #### [facility] [address] [place] [address] Dr. Ron Sims IG % 0.9 % Critically high 0.0-0.5 [facility] Comment on above: Performed By: #### H H #### [facility] [address] [place] [address] Dr. Ron Sims LYMPH # 0.8 103/ul Critically low 1.2-3.8 [facility] Comment on above: Performed By: #### H H #### [facility] [address] [place] [address] Dr. Ron Sims Lymphocytes/100 WBC (Bld) 9.4 % Critically low 20.5-60.0 [facility] Comment on above: Performed By: #### H H #### [facility] [address] [place] [address] Dr. Ron Sims MANUAL DIFF REQ NO Normal [facility] Comment on above: Performed By: #### H H #### [facility] [address] [place] [address] Dr. Ron Sims MCH (RBC) [Entitic mass] 26.8 pg Normal 26.7-34.0 [facility] Comment on above: Performed By: #### H H #### [facility] [address] [place] [address] Dr. Ron Sims MCHC (RBC) [Mass/Vol] 32.9 g/dL Normal 29.9-35.2 [facility] Comment on above: Performed By: #### H H #### [facility] [address] [place] [address] Dr. Ron Sims MCV (RBC) [Entitic vol] 81.7 fL Normal 81.0-99.0 [facility] Comment on above: Performed By: #### H H #### [facility] [address] [address] [address] Ron Sims MONO # 0.6 103/ul Normal 0.3-0.8 [facility] Comment on above: Performed By: #### H H #### [facility] [address] [address] [address] Ron Sims Monocytes/100 WBC (Bld) 6.3 % Normal 1.7-12.0 [facility] Comment on above: Performed By: #### H H #### [facility] [address] [address] [address] Ron Sims NEUT # 7.2 103/ul Critically high 1.4-6.5 [facility] Comment on above: Performed By: #### H H #### [facility] [address] [place] [address] Dr. Ron Sims Neutrophils/100 WBC (Bld) 82.3 % Critically high 43.0-75.0 [facility] Comment on above: Performed By: #### H H #### [facility] [address] [place] [address] Dr. Ron Sims Platelet mean volume (Bld) [Entitic vol] 8.6 fL Critically low 9.5-13.5 [facility] Comment on above: Performed By: #### H H #### [facility] [address] [address] [address] Ron Sims PLT 323 103/ul Normal 150-450 [facility] Comment on above: Performed By: #### H H #### [facility] [address] [address] [address] Ron Sims RBC 5.18 106/ul Normal 4.20-5.40 [facility] Comment on above: Performed By: #### H H #### [facility] [address] [address] [address] Ron Sims WBC 8.8 103/ul Normal 4.0-11.0 [facility] Comment on above: Performed By: #### H H #### [facility] [address], [place] [address] Dr. Ron Sims CULTURE BLOODon 11-22-2022 Microscopic examination of blood, culture Culture Observations: NO GROWTH AT 5 DAYS. Normal [facility] Comment on above: Performed By: #### H IV12 #### [facility] [address], [place] [address] Dr. Ron Sims ECHO LIMITED STUDYon 023 ECHO LIMITED STUDY Patient: MARGARET PRIETO Exam Date: 11/22/2022 : 1990 Gender:F Ordering : DR NATHAN MAYFIELD D.O. Admission #: [id number] Family : Order #: [id number] CLICK HERE TO VIEW EXAM ECHOCARDIOGRAM REPORT [...] Aldridge M.D. on 11/22/2022 at 14:54 Normal [facility] LACTATE/LACTIC ACIDon 2022 Lactate [Moles/Vol] 1.5 mmol/L Normal 0.4-2.0 [facility] Comment on above: Performed By: #### L ACT #### [facility] [address] [address] [address] Ron Sims Lactate [Moles/Vol] 2.6 mmol/L Critically high 0.4-2.0 [facility] Comment on above: Performed By: #### L ACT #### [facility] [address] [address] [address] Ron Sims PROF CHEM 8 (BAS METB)on Anion gap [Moles/Vol] 16.8 mmol/L Normal [facility] Comment on above: Performed By: #### H H #### [facility] [address] [address] [address] Ron Sims Calcium [Mass/Vol] 8.9 mg/dL Normal 8.5-10.1 [facility] Comment on above: Performed By: #### H H #### [facility] [address] [address] [address] Ron Sims Chloride [Moles/Vol] 94 mmol/L Critically low 98-107 [facility] Comment on above: Performed By: #### H H #### [facility] [address] [address] [address] Ron Sims CO2 [Moles/Vol] 25.3 mmol/L Normal 21.0-32.0 [facility] Comment on above: Performed By: #### H H #### [facility] [address] [address] [address] Ron Sims Creatinine [Mass/Vol] 0.88 mg/dL Normal 0.55-1.02 [facility] Comment on above: Performed By: #### H H #### [facility] [address] [address] [address] Ron Sims EGFR-AF ARMENIAN >60 Normal >=60 [facility] Comment on above: Performed By: #### H H #### [facility] [address] [place] [address] Dr. Ron Sims EGFR-NON AF ARMENIAN >60 Normal >=60 [facility] Comment on above: Performed By: #### H H #### [facility] [address] [address] [address] Ron Sims Glucose [Mass/Vol] 112 mg/dL Critically high 74-106 [facility] Comment on above: Performed By: #### H H #### [facility] [address] [address] [address] Ron Sims Potassium [Moles/Vol] 3.1 mmol/L Critically low 3.5-5.1 [facility] Comment on above: Performed By: #### H H #### [facility] [address] [address] [address] Ron Sims Sodium [Moles/Vol] 133 mmol/L Critically low 136-145 [facility] Comment on above: Performed By: #### H H #### [facility] [address] [place] [address] Dr. Ron Sims Urea nitrogen [Mass/Vol] 12.0 mg/dL Normal 7.0-18.0 [facility] Comment on above: Performed By: #### H H #### [facility] [address] [place] [address] Dr. Ron Sims Urea nitrogen/Creatinine [Mass ratio] 13.6 mg/mg Normal [facility] Comment on above: Performed By: #### H H #### [facility] [address] [address] [address] Ron Sims PROTIMEon 11-22-2022 INR Coag (PPP) [Relative time] 2.20 {INR} Normal [facility] Comment on above: Performed By: #### P T, PTT #### [facility] [address] [address] [address] Ron Sims INR GUIDELINES SEE BELOW Normal [facility] Comment on above: Result Comment: MICHELINE RED INR: 2.0 - 3.0 CONDITIONS NOT LISTED BELOW 2.5 - 3.5 FOR PROSTHETIC HEART VALVE REPLACEMENT 2.5 - 3.5 RECURRENT THROMBOSIS Performed By: #### P T, PTT #### [facility] [address] [place] [address] Dr. Ron Sims PT Coag (PPP) [Time] 22.3 s Critically high 9.0-11.6 [facility] Comment on above: Performed By: #### P T, PTT #### [facility] [address] [place], [place] [id number] Dr. Ron Sims PTTon 11-22-2022 aPTT Coag (Bld) [Time] 48.2 s Critically high 22.3-36. 2 [facility] Comment on above: Performed By: #### P T, PTT #### [facility] [address] [place] [address] Dr. Ron Sims XR CHEST 1 Von [...] by: SANIA TIDWELL Date: 2022-11-22 12:16 Normal [facility] POLINA EIA W/REFLEX 9 BIOMARKER Son 10-24-2022 POLINA Direct Negative Normal Negative [facility] Comment on above: Performed By: #### H IV12 #### [facility] [address] [address] [address] Ron Sims HEPATITIS C AB CASCADE TO QU ANT PCR GENOon 10-24-2022 HCV AB Non-Reactive Normal Non Reactive [facility] Comment on above: Performed By: #### H EPCASC #### [facility] [address] [address] [address] Ron Sims Interpretation: Comment Normal [facility] Comment on above: Result Comment: Not infected with HCV unless early or acute infection is suspected (which may be delayed in an immunocompromised individual), or other evidence exists to indicate HCV infection. Performed By: #### H EPCASC #### [facility] [address] [address] [address] Ron Sims HIV 1 AND 2 WITH REFLEXon HIV Screen 4th Generation wRfx Non-Reactive Normal Non Reactive [facility] Comment on above: Result Comment: HIV Negative HIV-1/HIV-2 antibodies and HIV-1 p24 antigen were NOT detected. There is no laboratory evidence of HIV infection. Performed By: #### H IV12 #### [facility] [address] [place] [address] Dr. Ron Sims CPKon 10-23-2022 CK [Catalytic activity/Vol] 36 U/L Normal 26-192 [facility] Comment on above: Performed By: #### H H #### [facility] [address] [place] [address] Dr. Ron Sims GLYCOHEMOGLOBIN A1Con 2022 ADA RECOMMENDATION SEE BELOW Normal [facility] Comment on above: Result Comment: ADA RECOMMENDED LIMIT 4.0 - 6.0 ADA THERAPEUTIC TARGET < 7.0 ACTION SUGGESTED > 7.0 Performed By: #### A 1C #### [facility] [address] [place] [address] Dr. Ron Sims Glucose [Mass/Vol] 111 mg/dL Normal [facility] Comment on above: Performed By: #### A 1C #### [facility] [address] [place] [address] Dr. Ron Sims HbA1c (Bld) [Mass fraction] 5.5 % Normal 4.5-6.2 [facility] Comment on above: Performed By: #### A 1C #### [facility] [address] [place] [address] Dr. Ron Sims HEMOGRAM AND PLATELon 2022 Hematocrit (Bld) [Volume fraction] 38.4 % Normal 36.0-48.0 [facility] Comment on above: Performed By: #### H H #### [facility] [address] [place] [address] Dr. Ron Sims Hemoglobin (Bld) [Mass/Vol] 12.6 g/dL Normal 12.0-16.0 [facility] Comment on above: Performed By: #### H H #### [facility] [address] [place] [address] Dr. Ron Sims MCH (RBC) [Entitic mass] 27.0 pg Normal 26.7-34.0 [facility] Comment on above: Performed By: #### H H #### [facility] [address] [place] [address] Dr. Ron Sims MCHC (RBC) [Mass/Vol] 32.8 g/dL Normal 29.9-35.2 [facility] Comment on above: Performed By: #### H H #### [facility] [address] [place] [address] Dr. Ron Sims MCV (RBC) [Entitic vol] 82.2 fL Normal 81.0-99.0 [facility] Comment on above: Performed By: #### H H #### [facility] [address] [place] [address] Dr. Ron Sims PLT 337 103/ul Normal 150-450 [facility] Comment on above: Performed By: #### H H #### [facility] [address] [address] [address] Ron Sims RBC 4.67 106/ul Normal 4.20-5.40 [facility] Comment on above: Performed By: #### H H #### [facility] [address] [place] [address] Dr. Ron Sims WBC 9.7 103/ul Normal 4.0-11.0 [facility] Comment on above: Performed By: #### H H #### [facility] [address] [place] [address] Dr. Ron Sims MYOGLOBINon 10-23-2022 NOEMI 51 ng/mL Normal 9-82 [facility] Comment on above: Performed By: #### H H #### [facility] [address] [place] [address] Dr. Ron Sims PROF 14(COMP METB)on 023 Albumin [Mass/Vol] 3.1 g/dL Critically low 3.4-5.0 [facility] Comment on above: Performed By: #### P T, PTT #### [facility] [address] [place] [address] Dr. Ron Sims Albumin/Globulin [Mass ratio] 0.7 {ratio} Normal [facility] Comment on above: Performed By: #### P T, PTT #### [facility] [address] [place] [address] Dr. Ron Sims ALP [Catalytic activity/Vol] 79 U/L Normal 46-116 [facility] Comment on above: Performed By: #### P T, PTT #### [facility] [address] [place] [address] Dr. Ron Sims ALT [Catalytic activity/Vol] 28 U/L Normal 14-59 [facility] Comment on above: Performed By: #### P T, PTT #### [facility] [address] [place] [address] Dr. Ron Sims Anion gap [Moles/Vol] 12.2 mmol/L Normal [facility] Comment on above: Performed By: #### P T, PTT #### [facility] [address] [address] [address] Ron Sims AST [Catalytic activity/Vol] 17 U/L Normal 15-37 [facility] Comment on above: Performed By: #### P T, PTT #### [facility] [address] [place] [address] Dr. Ron Sims Bilirubin [Mass/Vol] 0.4 mg/dL Normal 0.2-1.0 [facility] Comment on above: Performed By: #### P T, PTT #### [facility] [address] [place] [address] Dr. Ron Sims Calcium [Mass/Vol] 9.0 mg/dL Normal 8.5-10.1 [facility] Comment on above: Performed By: #### P T, PTT #### [facility] [address] [place] [address] Dr. Ron Sims Chloride [Moles/Vol] 101 mmol/L Normal 98-107 [facility] Comment on above: Performed By: #### P T, PTT #### [facility] [address] [place] [address] Dr. Ron Sims CO2 [Moles/Vol] 28.5 mmol/L Normal 21.0-32.0 [facility] Comment on above: Performed By: #### P T, PTT #### [facility] [address] [place] [address] Dr. Ron Sims Creatinine [Mass/Vol] 0.88 mg/dL Normal 0.55-1.02 [facility] Comment on above: Performed By: #### P T, PTT #### [facility] [address] [place] [address] Dr. Ron Sims EGFR-AF ARMENIAN >60 Normal >=60 [facility] Comment on above: Performed By: #### P T, PTT #### [facility] [address] [place] [address] Dr. Ron Sims EGFR-NON AF ARMENIAN >60 Normal >=60 [facility] Comment on above: Performed By: #### P T, PTT #### [facility] [address] [place] [address] Dr. Ron Sims Globulin (S) [Mass/Vol] 4.6 g/dL Normal [facility] Comment on above: Performed By: #### P T, PTT #### [facility] [address] [address] [address] Ron Sims Glucose [Mass/Vol] 96 mg/dL Normal 74-106 [facility] Comment on above: Performed By: #### P T, PTT #### [facility] [address] [place] [address] Dr. Ron Sims Potassium [Moles/Vol] 3.7 mmol/L Normal 3.5-5.1 [facility] Comment on above: Performed By: #### P T, PTT #### [facility] [address] [place] [address] Dr. Ron Sims Protein [Mass/Vol] 7.7 g/dL Normal 6.4-8.2 [facility] Comment on above: Performed By: #### P T, PTT #### [facility] [address] [place] [address] Dr. Ron Sims Sodium [Moles/Vol] 138 mmol/L Normal 136-145 [facility] Comment on above: Performed By: #### P T, PTT #### [facility] [address] [place] [address] Dr. Ron Sims Urea nitrogen [Mass/Vol] 12.0 mg/dL Normal 7.0-18.0 [facility] Comment on above: Performed By: #### P T, PTT #### [facility] [address] [place] [address] Dr. Ron Sims Urea nitrogen/Creatinine [Mass ratio] 13.6 mg/mg Normal [facility] Comment on above: Performed By: #### P T, PTT #### [facility] [address] [place] [address] Dr. Ron Sims TSHon 10-23-2022 TSH 2.891 uIU/mL Normal 0.358-3.740 [facility] Comment on above: Performed By: #### P T, PTT #### [facility] [address] [place] [address] Dr. Ron Sims VITAMIN B12on 10-23-2022 Cobalamin (Vitamin B12) [Mass/Vol] 618.0 pg/mL Normal 193.0-986.0 [facility] Comment on above: Performed By: #### H H #### [facility] [address] [place] [address] Dr. Ron Sims VITAMIN D 25 OHon 10-23-2022 VIT D 25-OH 18.0 ng/mL Normal [facility] Comment on above: Performed By: #### H H #### [facility] [address] [place] [address] Dr. Ron Sims VIT D RANGES SEE BELOW Normal [facility] Comment on above: Result Comment: <20 ng/mL Vit D deficient 20 - <30 ng/mL Vit D insufficient 30 - 100 ng/mL Vit D sufficient >100 ng/mL Potential Toxicity Performed By: #### H H #### [facility] [address] [place] [address] Dr. Ron Sims CBC AUTO DIFFon 09-26-2022 BASO # 0.0 103/ul Normal 0.0-0.1 [facility] Comment on above: Performed By: #### H H #### [facility] [address] [place] [address] Dr. Ron Sims Basophils/100 WBC (Bld) 0.5 % Normal 0.2-2.0 [facility] Comment on above: Performed By: #### H H #### [facility] [address] [place] [address] Dr. Ron Sims EO # 0.1 103/ul Normal 0.0-0.7 [facility] Comment on above: Performed By: #### H H #### [facility] [address] [place] [address] Dr. Ron Sims Eosinophils/100 WBC (Bld) 1.5 % Normal 0.9-7.0 [facility] Comment on above: Performed By: #### H H #### [facility] [address] [place] [address] Dr. Ron Sims Erythrocyte distribution width (RBC) [Ratio] 13.3 % Normal 11.0-15.0 [facility] Comment on above: Performed By: #### H H #### [facility] [address] [place] [address] Dr. Ron Sims Hematocrit (Bld) [Volume fraction] 41.3 % Normal 36.0-48.0 [facility] Comment on above: Performed By: #### H H #### [facility] [address] [place] [address] Dr. Ron Sims Hemoglobin (Bld) [Mass/Vol] 13.6 g/dL Normal 12.0-16.0 [facility] Comment on above: Performed By: #### H H #### [facility] [address] [place] [address] Dr. Ron Sims IG # 0.03 10e3/ul Normal 0.00-0.03 [facility] Comment on above: Performed By: #### H H #### [facility] [address] [place] [address] Dr. Ron Sims IG % 0.3 % Normal 0.0-0.5 [facility] Comment on above: Performed By: #### H H #### [facility] [address] [place] [address] Dr. Ron Sims LYMPH # 1.5 103/ul Normal 1.2-3.8 [facility] Comment on above: Performed By: #### H H #### [facility] [address] [place] [address] Dr. Ron Sims Lymphocytes/100 WBC (Bld) 16.9 % Critically low 20.5-60.0 [facility] Comment on above: Performed By: #### H H #### [facility] [address] [place] [address] Dr. Ron Sims MANUAL DIFF REQ NO Normal [facility] Comment on above: Performed By: #### H H #### [facility] [address] [place] [address] Dr. Ron Sims MCH (RBC) [Entitic mass] 27.7 pg Normal 26.7-34.0 [facility] Comment on above: Performed By: #### H H #### [facility] [address] [place] [address] Dr. Ron Sims MCHC (RBC) [Mass/Vol] 32.9 g/dL Normal 29.9-35.2 [facility] Comment on above: Performed By: #### H H #### [facility] [address] [place] [address] Dr. Ron Sims MCV (RBC) [Entitic vol] 84.1 fL Normal 81.0-99.0 [facility] Comment on above: Performed By: #### H H #### [facility] [address] [place] [address] Dr. Ron Sims MONO # 0.5 103/ul Normal 0.3-0.8 [facility] Comment on above: Performed By: #### H H #### [facility] [address] [place] [address] Dr. Ron Sims Monocytes/100 WBC (Bld) 5.4 % Normal 1.7-12.0 [facility] Comment on above: Performed By: #### H H #### [facility] [address] [place] [address] Dr. Ron Sims NEUT # 6.5 103/ul Normal 1.4-6.5 [facility] Comment on above: Performed By: #### H H #### [facility] [address] [place] [address] Dr. Ron Sims Neutrophils/100 WBC (Bld) 75.4 % Critically high 43.0-75.0 [facility] Comment on above: Performed By: #### H H #### [facility] [address] [place] [address] Dr. Ron Sims Platelet mean volume (Bld) [Entitic vol] 9.0 fL Critically low 9.5-13.5 [facility] Comment on above: Performed By: #### H H #### [facility] [address] [place] [address] Dr. Ron Sims PLT 261 103/ul Normal 150-450 [facility] Comment on above: Performed By: #### H H #### [facility] [address] [address] [address] Ron Sims RBC 4.91 106/ul Normal 4.20-5.40 [facility] Comment on above: Performed By: #### H H #### [facility] [address] [address] [address] Ron Sims WBC 8.7 103/ul Normal 4.0-11.0 [facility] Comment on above: Performed By: #### H H #### [facility] [address] [address] [address] Ron Sims CRPon 09-26-2022 CRP 0.4 mg/dL Normal <=1.0 [facility] Comment on above: Performed By: #### P T, PTT #### [facility] [address] [place] [address] HEAD WO CONon [...] by: DEREK MIRELES Date: 2022-09-26 20:09 Normal [facility] CTA HEAD WO W CONon 09-26-19 CTA [...] by: DEREK MIRELES Date: 2022-09-26 21:26 Normal [facility] PROF CHEM 8 (BAS METB)on Anion gap [Moles/Vol] 11.2 mmol/L Normal [facility] Comment on above: Performed By: #### P T, PTT #### [facility] [address] [address] [address] Ron Sims Calcium [Mass/Vol] 9.1 mg/dL Normal 8.5-10.1 [facility] Comment on above: Performed By: #### P T, PTT #### [facility] [address] [address] [address] Ron Sims Chloride [Moles/Vol] 101 mmol/L Normal 98-107 [facility] Comment on above: Performed By: #### P T, PTT #### [facility] [address] [address] [address] Ron Sims CO2 [Moles/Vol] 28.0 mmol/L Normal 21.0-32.0 [facility] Comment on above: Performed By: #### P T, PTT #### [facility] [address] [address] [address] Ron Sims Creatinine [Mass/Vol] 0.85 mg/dL Normal 0.55-1.02 [facility] Comment on above: Performed By: #### P T, PTT #### [facility] [address] [address] [address] Ron Sims EGFR-AF ARMENIAN >60 Normal >=60 [facility] Comment on above: Performed By: #### P T, PTT #### [facility] [address] [address] [address] Ron Sims EGFR-NON AF ARMENIAN >60 Normal >=60 [facility] Comment on above: Performed By: #### P T, PTT #### [facility] [address] [address] [address] Ron Sims Glucose [Mass/Vol] 106 mg/dL Normal 74-106 [facility] Comment on above: Performed By: #### P T, PTT #### [facility] [address] [place] [address] Dr. Ron Sims Potassium [Moles/Vol] 4.2 mmol/L Normal 3.5-5.1 [facility] Comment on above: Performed By: #### P T, PTT #### [facility] [address] [address] [address] Ron Sims Sodium [Moles/Vol] 136 mmol/L Normal 136-145 [facility] Comment on above: Performed By: #### P T, PTT #### [facility] [address] [address] [address] Ron Sims Urea nitrogen [Mass/Vol] 15.0 mg/dL Normal 7.0-18.0 [facility] Comment on above: Performed By: #### P T, PTT #### [facility] [address] [address] [address] Ron Sims Urea nitrogen/Creatinine [Mass ratio] 17.6 mg/mg Normal [facility] Comment on above: Performed By: #### P T, PTT #### [facility] [address] [address] [address] Ron Sims SED RATE WESTERGRENon 2022 SED RATE 58 mm/hr Critically high <=20 [facility] Comment on above: Performed By: #### S EDR #### [facility] [address] [place], [place] [address] Dr. Ron Sims PREG HCG QUALon 09-05-2022 , QUAL Negative Normal NEGATIVE [facility] Comment on above: Performed By: #### P REG #### [facility] [address] [place], [place] [address] Dr. Ron Sims ABO and Rh group post transf usion reaction Nom (Bld)Ordered By: John Mack on 04-11-2022 Microscopic observation Gram stain Nom (Unsp spec) [facility] Aerobic Cultureon 04-10-2022 Aerobic Culture Result Tab Codes Rare Normal Skin Keerthi 2 Days Anaerobic Culture Results No Anaerobes Isolated 3 Days Gram Stain Result No Bacteria Seen PERFORMED BY: [place] [address] PATHOLOGIST HEALTH PROMOTION SPECIALIST JACQUIE CRABTREE M.D. Normal [facility] Comment on above: Performed By: #### A ERC #### [facility] [address] [place] [address] HCG ( test) IA.rapi d Ql (U)Ordered By: Katya Vasques on 04-10-2022 HCG ( test) Ql (U) Negative [facility] HCG,Qualitative Serumon HCG,Qualitative Serum Negative Normal [facility] Comment on above: Result Comment: PERF ORMED BY: [place] [address] PATHOLOGIST HEALTH PROMOTION SPECIALIST JACQUIE CRABTREE M.D. Performed By: #### U HCG #### [facility] [address] [place], [place] [id number] [place] COVID-19 FRMCon 04-06-2022 SARS-CoV-2 (COVID-19) RNA EVARISTO+probe Ql (Unsp spec) Negative Normal Negative [facility] Comment on above: Order Comment: Healt hcare Worker?: N Result Comment: Testing for SARS-CoV-2 by RT-PCR This test was developed and its performance characteristics determined by [employer] and validated at the [facility]. This test has not been FDA cleared [...] is terminated or revoked sooner. PERFORMED BY: [place] [address] PATHOLOGIST HEALTH PROMOTION SPECIALIST JACQUIE CRABTREE M.D. Performed By: #### U HCG #### [address] COVID-19 Positive/NegativeOr dered By: John Mack on 04-06-2022 SARS-CoV-2 (COVID-19) N gene EVARISTO+probe Ql (Resp) Negative Negative [facility] Comment on above: Testing for SARS-CoV -2 by RT-PCR This test was developed and its performance characteristics determined by [employer] and validated at the [facility]. This test has not been FDA cleared [...] on 03-30-2022 Albumin [Mass/Vol] 3.1 g/dL 3.2-5.5 [facility] Basophils Auto (Bld) [#/Vol] Ordered By: Dominique Garrison on 03-30-2022 Basophils (Bld) [#/Vol] 0.1 10*3/uL 0.0-0.2 [facility] Basophils/100 WBC Auto (Bld) Ordered By: Dominique Garrison on 03-30-2022 Basophils/100 WBC (Bld) 0.6 % . [facility] Blood hemoglobin measurement (mass/volume)Ordered By: Dominique Garrison on 03-30-2022 Hemoglobin (Bld) [Mass/Vol] 13.3 g/dL 11.8-15.4 [facility] Blood leukocytes automated c ount (number/volume)Ordered By: Dominique Garrison on 03-30-2022 WBC (Bld) [#/Vol] 10.7 10*3/uL 4.5-11.0 [facility] Complete Blood Count Auto Di ffon 03-30-2022 Basophils (Bld) [#/Vol] 0.1 10*3/uL Normal 0.0-0.2 [facility] Comment on above: Result Comment: PERF ORMED BY: [place] [address] PATHOLOGIST HEALTH PROMOTION SPECIALIST JACQUIE CRABTREE M.D. Performed By: #### C BC, CMP, T SPOT TB #### [facility] [address] [place] [address] [place] #### HCVCASCADE, HBSAB, HBCAB #### [facility] , Basophils/100 WBC (Bld) 0.6 % Normal . [facility] Comment on above: Performed By: #### C BC, CMP, T SPOT TB #### [facility] [address] [place] [address] [place] #### HCVCASCADE, HBSAB, HBCAB #### [facility] , Eosinophils (Bld) [#/Vol] 0.2 10*3/uL Normal 0.0-0.45 [facility] Comment on above: Performed By: #### C BC, CMP, T SPOT TB #### [facility] [address] [place] [address] #### HCVCASCADE, HBSAB, HBCAB #### [facility] , Eosinophils/100 WBC (Bld) 1.5 % Normal . [facility] Comment on above: Performed By: #### C BC, CMP, T SPOT TB #### [facility] [address] [place] [address] #### HCVCASCADE, HBSAB, HBCAB #### [facility] , Erythrocyte distribution width (RBC) [Ratio] 14.2 % Normal 11.9-15.3 [facility] Comment on above: Performed By: #### C BC, CMP, T SPOT TB #### [address] #### HCVCASCADE, HBSAB, HBCAB #### [facility] , Hematocrit (Bld) [Volume fraction] 39.6 % Normal 34.0-46.4 [facility] Comment on above: Performed By: #### C BC, CMP, T SPOT TB #### [facility] [address] [place] [address] [place] #### HCVCASCADE, HBSAB, HBCAB #### [facility] , Hemoglobin (Bld) [Mass/Vol] 13.3 g/dL Normal 11.8-15.4 [facility] Comment on above: Performed By: #### C BC, CMP, T SPOT TB #### [facility] [address] [place] [address] [place] #### HCVCASCADE, HBSAB, HBCAB #### [facility] , Lymphocytes (Bld) [#/Vol] 1.7 10*3/uL Normal 1.00-4.8 [facility] Comment on above: Performed By: #### C BC, CMP, T SPOT TB #### [facility] [address] [place] [address] #### HCVCASCADE, HBSAB, HBCAB #### [facility] , Lymphocytes/100 WBC (Bld) 16.0 % Normal . [facility] Comment on above: Performed By: #### C BC, CMP, T SPOT TB #### [address] #### HCVCASCADE, HBSAB, HBCAB #### [facility] , MCH (RBC) [Entitic mass] 26.8 pg Normal 24.7-34.3 [facility] Comment on above: Performed By: #### C BC, CMP, T SPOT TB #### [address] #### HCVCASCADE, HBSAB, HBCAB #### [facility] , MCV (RBC) [Entitic vol] 79.6 fL Low 80-100 [facility] Comment on above: Performed By: #### C BC, CMP, T SPOT TB #### [address] #### HCVCASCADE, HBSAB, HBCAB #### [facility] , Mean Corpuscular HGB Conc 33.7 g/dL Normal 32.0-35.0 [facility] Comment on above: Performed By: #### C BC, CMP, T SPOT TB #### [facility] [address] [place] [address] #### HCVCASCADE, HBSAB, HBCAB #### [facility] , Monocytes (Bld) [#/Vol] 0.7 10*3/uL Normal 0.0-0.8 [facility] Comment on above: Performed By: #### C BC, CMP, T SPOT TB #### [facility] [address] [place] [address] #### HCVCASCADE, HBSAB, HBCAB #### [facility] , Monocytes/100 WBC (Bld) 6.4 % Normal . [facility] Comment on above: Performed By: #### C BC, CMP, T SPOT TB #### [facility] [address] [place] [address] [place] #### HCVCASCADE, HBSAB, HBCAB #### [facility] , Neutrophils (Bld) [#/Vol] 8.0 10*3/uL High 1.8-7.7 [facility] Comment on above: Performed By: #### C BC, CMP, T SPOT TB #### [facility] [address] [place] [address] #### HCVCASCADE, HBSAB, HBCAB #### [facility] , Neutrophils/100 WBC (Bld) 75.5 % Normal . [facility] Comment on above: Performed By: #### C BC, CMP, T SPOT TB #### [facility] [address] [place] [address] #### HCVCASCADE, HBSAB, HBCAB #### [facility] , Nucleated RBC/100 WBC (Bld) [Ratio] 0.1 % Normal 0-0.5 [facility] Comment on above: Performed By: #### C BC, CMP, T SPOT TB #### [facility] [address] [place] [address] [place] #### HCVCASCADE, HBSAB, HBCAB #### [facility] , Platelet mean volume (Bld) [Entitic vol] 7.3 fL Normal 6.3-10.7 [facility] Comment on above: Performed By: #### C BC, CMP, T SPOT TB #### [facility] [address] [place] [address] [place] #### HCVCASCADE, HBSAB, HBCAB #### [facility] , Platelets (Bld) [#/Vol] 376 10*3/uL Normal 150-450 [facility] Comment on above: Performed By: #### C BC, CMP, T SPOT TB #### [facility] [address] [place] [address] #### HCVCASCADE, HBSAB, HBCAB #### [facility] , RBC (Bld) [#/Vol] 4.97 10*6/uL Normal 3.60-5.00 [facility] Comment on above: Performed By: #### C BC, CMP, T SPOT TB #### [facility] [address] [place] [address] #### HCVCASCADE, HBSAB, HBCAB #### [facility] , WBC (Bld) [#/Vol] 10.7 10*3/uL Normal 4.5-11.0 [facility] Comment on above: Performed By: #### C BC, CMP, T SPOT TB #### [address] #### HCVCASCADE, HBSAB, HBCAB #### [facility] , Comprehensive Metabolic Pane carol 03-30-2022 Albumin [Mass/Vol] 3.1 g/dL Low 3.2-5.5 [facility] Comment on above: Performed By: #### U HCG #### [facility] [address] [place] [address] Albumin/Globulin [Mass ratio] 0.8 {ratio} Normal [facility] Comment on above: Performed By: #### U HCG #### [address] ALP [Catalytic activity/Vol] 66 U/L Normal 32-92 [facility] Comment on above: Result Comment: PERF ORMED BY: [place] [address] PATHOLOGIST HEALTH PROMOTION SPECIALIST JACQUIE CRABTREE M.D. Performed By: #### U HCG #### [facility] [address] [place] [address] [place] ALT [Catalytic activity/Vol] 24 U/L Normal 10-60 [facility] Comment on above: Performed By: #### U HCG #### [address] AST [Catalytic activity/Vol] 20 U/L Normal 10-42 [facility] Comment on above: Performed By: #### U HCG #### [address] Bilirubin [Mass/Vol] 0.5 mg/dL Normal 0.3-1.2 [facility] Comment on above: Performed By: #### U HCG #### [address] Calcium [Mass/Vol] 8.5 mg/dL Normal 8.2-10.2 [facility] Comment on above: Performed By: #### U HCG #### [address] Chloride [Moles/Vol] 105 mmol/L Normal 95-114 [facility] Comment on above: Performed By: #### U HCG #### [address] CO2 [Moles/Vol] 23.0 mmol/L Normal 22.0-30.0 [facility] Comment on above: Performed By: #### U HCG #### [facility] [address] [place] [address] Creatinine [Mass/Vol] 0.74 mg/dL Normal 0.44-1.03 [facility] Comment on above: Performed By: #### U HCG #### [facility] [address] [place] [address] [place] Estimated GFR ( Vinh > 60 Normal [facility] Comment on above: Result Comment: GFR estimated reference range: According to KDOQI guidelines, <60 ml/min/1.73m2 is sufficient to diagnose a patient with chronic kidney disease. Performed By: #### U HCG #### [address] [place] [address] [place] Estimated GFR (Non- Am > 60 Normal [facility] Comment on above: Performed By: #### U HCG #### [place] [address] Globulin (S) [Mass/Vol] 4.1 g/dL Normal [facility] Comment on above: Performed By: #### U HCG #### [address] Glucose [Mass/Vol] 97 mg/dL Normal 70-100 [facility] Comment on above: Result Comment: [facility] Glucose Reference Range is dependent on time and content of last meal. Glucose of more than 200 mg/dL in a nonstressed, ambulatory subject supports the diagnosis of Diabetes Mellitus. ADA recommended reference range Performed By: #### U HCG #### [address] Potassium [Moles/Vol] 3.8 mmol/L Normal 3.5-5.1 [facility] Comment on above: Performed By: #### U HCG #### [place] [address] [place] Protein [Mass/Vol] 7.2 g/dL Normal 6.1-7.9 [facility] Comment on above: Performed By: #### U HCG #### [place] [address] [place] Sodium [Moles/Vol] 136 mmol/L Normal 136-146 [facility] Comment on above: Performed By: #### U HCG #### [place] [address] [place] Urea nitrogen [Mass/Vol] 9 mg/dL Normal 9-23 [facility] Comment on above: Performed By: #### U HCG #### [place] [address] [place] Creatinine and Glomerular fi ltration rate.predicted panel (S/P/Bld)Ordered By: Dominique Garrison on 03-30-2022 Creatinine [Mass/Vol] 0.74 mg/dL 0.44-1.03 [facility] Eosinophils Auto (Bld) [#/Vo l]Ordered By: Dominique Garrison on 03-30-2022 Eosinophils (Bld) [#/Vol] 0.2 10*3/uL 0.0-0.45 [facility] Eosinophils/100 WBC Auto (Bl d)Ordered By: Dominique Garrison on 03-30-2022 Eosinophils/100 WBC (Bld) 1.5 % . [facility] Erythrocyte distribution wid th Auto (RBC) [Ratio]Ordered By: Dominique Garrison on 03-30-2022 Erythrocyte distribution width (RBC) [Ratio] 14.2 % 11.9-15.3 [facility] Estimated glomerular filtrat ion rate (GFR) non- AmericanOrdered By: Dominique Garrison on 03-30-2022 GFR/1.73 sq M.predicted among non-blacks MDRD (S/P/Bld) [Vol rate/Area] > 60 mL/Min [facility] Globulin Calc (S) [Mass/Vol] Ordered By: Dominique Garrison on 03-30-2022 Globulin (S) [Mass/Vol] 4.1 g/dL [facility] HCV Antibody Cascadeon 03-30 Hepatitis C Virus Antibody 0.2 Normal 0.0-0.9 [facility] Comment on above: Performed By: #### U HCG #### [facility] [address] Interpretation Hepatitis C Normal . [facility] Comment on above: Result Comment: Nega tive Not infected with HCV, unless recent infection is suspected or other evidence exists to indicate HCV infection. Performed By: #### U HCG #### [facility] [address] [place] [address] [place] Hematocrit Auto (Bld) [Volum e fraction]Ordered By: Dominique Garrison on 03-30-2022 Hematocrit (Bld) [Volume fraction] 39.6 % 34.0-46.4 [facility] Hepatitis B Core Antibodyon 03-30-2022 Hepatitis B Core Antibody Negative Normal Negative [facility] Comment on above: Result Comment: Perf ormed at: - [facility] [place] [id number] [employer]: Tarun Almanzra PhD, Phone: [phone] PERFORMED BY: [place] [address] PATHOLOGIST HEALTH PROMOTION SPECIALIST JACQUIE CRABTREE M.D. Performed By: #### U HCG #### [address] Hepatitis B Surface Antibody on 03-30-2022 Hepatitis B Surface Antibody Reactive Normal . [facility] Comment on above: Result Comment: Non Reactive: Inconsistent with immunity, less than 10 mIU/mL Reactive: Consistent with immunity, greater than 9.9 mIU/mL Performed By: #### U HCG #### [address] Hepatitis C virus RNA [Units /volume] (viral load) in Serum or Plasma by EVARISTO with probOrdered By: Dominique Garrison on 03-30-2022 HCV RNA EVARISTO+probe Qn N/A [facility] Hepatitis C virus RNA [log u nits/volume] (viral load) in Serum or Plasma by EVARISTO withOrdered By: Dominique Garrison on 03-30-2022 HCV RNA EVARISTO+probe [Log units/Vol] N/A [facility] Laboratory - Hematology and Cell countsOrdered By: Dominique Garrison on 03-30-2022 Nucleated RBC/100 WBC (Bld) [Ratio] 0.1 % 0-0.5 [facility] Lymphocytes Auto (Bld) [#/Vo l]Ordered By: Dominique Garrison on 03-30-2022 Lymphocytes (Bld) [#/Vol] 1.7 10*3/uL 1.00-4.8 [facility] Lymphocytes/100 WBC Auto (Bl d)Ordered By: Dominique Garrison on 03-30-2022 Lymphocytes/100 WBC (Bld) 16.0 % . [facility] MCH Auto (RBC) [Entitic mass ]Ordered By: Dominique Garrison on 03-30-2022 MCH (RBC) [Entitic mass] 26.8 pg 24.7-34.3 [facility] MCHC Auto (RBC) [Mass/Vol]Or dered By: Dominique Garrison on 03-30-2022 MCHC (RBC) [Mass/Vol] 33.7 g/dL 32.0-35.0 [facility] MCV Auto (RBC) [Entitic vol] Ordered By: Dominique Bladimir on 03-30-2022 MCV (RBC) [Entitic vol] 79.6 fL 80-100 [facility] Monocytes Auto (Bld) [#/Vol] Ordered By: Dominique Garrison on 03-30-2022 Monocytes (Bld) [#/Vol] 0.7 10*3/uL 0.0-0.8 [facility] Monocytes/100 WBC Auto (Bld) Ordered By: Dominique Garrison on 03-30-2022 Monocytes/100 WBC (Bld) 6.4 % . [facility] Neutrophils Auto (Bld) [#/Vo l]Ordered By: Dominique Garrison on 03-30-2022 Neutrophils (Bld) [#/Vol] 8.0 10*3/uL 1.8-7.7 [facility] Neutrophils/100 WBC Auto (Bl d)Ordered By: Dominique Garrison on 03-30-2022 Neutrophils/100 WBC (Bld) 75.5 % . [facility] No Panel InformationOrdered By: Dominique Garrison on 03-30-2022 Estimated GFR () > 60 mL/Min [facility] Comment on above: GFR estimated refere nce range: According to KDOQI guidelines, <60 ml/min/1.73m2 is sufficient to diagnose a patient with chronic kidney disease. Hepatitis B Core Total Antibody Negative Negative [facility] Comment on above: Performed at: - [address] [id number] [employer] Line: Tarun Almanzar PhD, Phone: [phone] Hepatitis C Interpretation See comment . [facility] Comment on above: Negative Not infected with HCV, unless recent infection is suspected or other evidence exists to indicate HCV infection. Hepatitis C RNA Quantitative N/A [facility] Creatinine Clearance (Chem N/A [facility] TB Test (T-Spot) . [facility] Comment on above: See report. Scanned copy available in EMR. Platelet mean volume Auto (B ld) [Entitic vol]Ordered By: Dominique Garrison on 03-30-2022 Platelet mean volume (Bld) [Entitic vol] 7.3 fL 6.3-10.7 [facility] Platelets Auto (Bld) [#/Vol] Ordered By: Dominique Garrison on 03-30-2022 Platelets (Bld) [#/Vol] 376 10*3/uL 150-450 [facility] Protein [Mass/volume] in Ser um or PlasmaOrdered By: Dominique Garrison on 03-30-2022 Protein [Mass/Vol] 7.2 g/dL 6.1-7.9 [facility] RBC Auto (Bld) [#/Vol]Ordere d By: Dominique Garrison on 03-30-2022 RBC (Bld) [#/Vol] 4.97 10*6/uL 3.60-5.00 [facility] Serum hepatitis B virus surf mary antibody detectionOrdered By: Dominique Garrison on 03-30-2022 HBV surface Ab Ql (S) Reactive . [facility] Comment on above: Non Reactive: Incons istent with immunity, less than 10 mIU/mL Reactive: Consistent with immunity, greater than 9.9 mIU/mL Serum or plasma alanine block otransferase measurement without P-5'-P (enzymatic activiOrdered By: Dominique Garrison on 03-30-2022 ALT No additional P-5'-P [Catalytic activity/Vol] 24 U/L 10-60 [facility] Serum or plasma albumin/glob ulin mass ratioOrdered By: Dominique Garrison on 03-30-2022 Albumin/Globulin [Mass ratio] 0.8 {ratio} [facility] Serum or plasma alkaline james sphatase measurement (enzymatic activity/volume)Ordered By: Dominique Garrison on 03-30-2022 ALP [Catalytic activity/Vol] 66 U/L 32-92 [facility] Serum or plasma aspartate am inotransferase measurement (enzymatic activity/volume)Ordered By: Dominique Garrison on 03-30-2022 AST [Catalytic activity/Vol] 20 U/L 10-42 [facility] Serum or plasma calcium seema urement (mass/volume)Ordered By: Dominique Garrison on 03-30-2022 Calcium [Mass/Vol] 8.5 mg/dL 8.2-10.2 [facility] Serum or plasma chloride laura surement (moles/volume)Ordered By: Dominique Garrison on 03-30-2022 Chloride [Moles/Vol] 105 mmol/L 95-114 [facility] Serum or plasma glucose seema urement (mass/volume)Ordered By: Dominique Garrison on 03-30-2022 Glucose [Mass/Vol] 97 mg/dL 70-100 [facility] Comment on above: ADA recommended refe rence range Random Glucose Reference Range is dependent on time and content of last meal. Glucose of more than 200 mg/dL in a nonstressed, ambulatory subject supports the diagnosis of Diabetes Mellitus. Serum or plasma hepatitis C virus antibody signal/cutoff ratio by immunoassay (relatiOrdered By: Dmoinique Garrison on 03-30-2022 HCV Ab Signal/Cutoff IA [Rel units/Vol] 0.2 s/co ratio 0.0-0.9 [facility] Serum or plasma potassium me asurement (moles/volume)Ordered By: Dominique Garrison on 03-30-2022 Potassium [Moles/Vol] 3.8 mmol/L 3.5-5.1 [facility] Serum or plasma sodium measu rement (moles/volume)Ordered By: Dominique Garrison on 03-30-2022 Sodium [Moles/Vol] 136 mmol/L 136-146 [facility] Serum or plasma total biliru bin measurement (mass/volume)Ordered By: Dominique Garrison on 03-30-2022 Bilirubin [Mass/Vol] 0.5 mg/dL 0.3-1.2 [facility] Serum or plasma total carbon dioxide measurement (moles/volume)Ordered By: Dominique Garrison on 03-30-2022 CO2 [Moles/Vol] 23.0 mmol/L 22.0-30.0 [facility] Serum or plasma urea nitroge n measurement (mass/volume)Ordered By: Dominique Garrison on 03-30-2022 Urea nitrogen [Mass/Vol] 9 mg/dL 9- [facility] T SPOT TB TESTon 03-30-2022 T SPOT TB TEST . Normal [facility] Comment on above: Result Comment: See report. Scanned copy available in EMR. PERFORMED BY: [place] [address] PATHOLOGIST HEALTH PROMOTION SPECIALIST JACQUIE CRABTREE M.D. Performed By: #### U HCG #### [address] Bacteria identified Anaer cx Nom (Unsp spec)Ordered By: John Mack on 03-29-2022 Anaerobic Culture Prevotella bivia F [facility] Bacteria identified Aer cx N om (Unsp spec)Ordered By: John Mack on 03-15-2022 Aerobic Culture Strep. agalactiae Grp B [facility] ABO and Rh group post transf usion reaction Nom (Bld)Ordered By: John Mack on 03-14-2022 Microscopic observation Gram stain Nom (Unsp spec) [facility] ANTIMICROBIAL SUSCEPT-ANAERO BEon 03-13-2022 FINAL REPORT SEE NOTE Normal [facility] Comment on above: Order Comment: Speci men Type: MICROBIAL ISOLATE Ordering Facility: [facility] Address: [address] [place] [phone] Result Comment: Prev otella bivia Organism identified [...] methodology. Interpret results with caution. Performed by [facility], [address] [place] [address] [email or web address], J Carlos Huynh MD, PHD, Lab. Director Performed By: #### S USANA #### [facility] CLIA [id number] [address] [place] [address] Aerobic Cultureon 03-13-2022 Aerobic Culture Comment Right Labial Abscess ORGANISM: Strep. agalactiae Grp B (O:B) Quantity of Growth Moderate Growth Comment Right Labial Abscess ORGANISM: Prevotella bivia (O:PREBIV) Comments Sent to [facility] for Testing Quantity of Growth Moderate Growth PREVOTELLA BIVIA (A) Testing done at [facility] Organism sent to [facility] for susceptibililty testing. Minimum inhibitory concentration [...] Cells Rare Gram Positive Cocci PERFORMED BY: [place] [address] PATHOLOGIST HEALTH PROMOTION SPECIALIST JACQUIE CRABTREE M.D. Normal [facility] Comment on above: Performed By: #### C OVID 19 [facility] #### [address] Bacterial susceptibility john el MARY (Isol)on 03-13-2022 BLACT Positive Normal [facility] Comment on above: Order Comment: Speci men Type: MICROBIAL ISOLATE Ordering Facility: [facility] Address: [address] [place] [address] Performed By: #### 5 0545-3 #### [facility] CLIA [id number] [address] [place], [place] [address] [address] [place] CULTURE, ORGANISM MARY RESULT [id number] Abnormal [facility] Comment on above: Order Comment: Speci men Type: MICROBIAL ISOLATE Ordering Facility: [facility] Address: [address] [place] [address] Result Comment: Prev otella bivia Performed By: #### 5 0545-3 #### [facility] CLIA [id number] [address] [facility] [id number] [id number] [place] Basic Metabolic Panelon 07 Calcium [Mass/Vol] 8.9 mg/dL Normal 8.2-10.2 [facility] Comment on above: Performed By: #### B MP #### [facility] [address] [place] [address] [place] Chloride [Moles/Vol] 98 mmol/L Normal 95-114 [facility] Comment on above: Performed By: #### B MP #### [place] [address] CO2 [Moles/Vol] 24.4 mmol/L Normal 22.0-30.0 [facility] Comment on above: Performed By: #### B MP #### [place] [address] Creatinine [Mass/Vol] 0.77 mg/dL Normal 0.44-1.03 [facility] Comment on above: Performed By: #### B MP #### [place] [address] [place] [address] [place] Creatinine Clr Calc Pharmacy 159.38 [facility] Comment on above: Result Comment: PERF ORMED BY: [place] [address] PATHOLOGIST HEALTH PROMOTION SPECIALIST JACQUIE CRABTREE M.D. Performed By: #### B MP #### [place] [address] Estimated GFR ( Vinh > 60 [facility] Comment on above: Result Comment: GFR estimated reference range: According to KDOQI guidelines, <60 ml/min/1.73m2 is sufficient to diagnose a patient with chronic kidney disease. Performed By: #### B MP #### [place] [address] Estimated GFR (Non- Am > 60 [facility] Comment on above: Performed By: #### B MP #### [place] [address] Glucose [Mass/Vol] 95 mg/dL Normal 70-100 [facility] Comment on above: Result Comment: [place] Glucose Reference Range is dependent on time and content of last meal. Glucose of more than 200 mg/dL in a nonstressed, ambulatory subject supports the diagnosis of Diabetes Mellitus. ADA recommended reference range Performed By: #### B MP #### [facility] [address] [place] [id number] [place] Potassium [Moles/Vol] 3.8 mmol/L Normal 3.5-5.1 [facility] Comment on above: Performed By: #### B MP #### [facility] [address] [place] [address] [place] Sodium [Moles/Vol] 133 mmol/L Low 136-146 [facility] Comment on above: Performed By: #### B MP #### [facility] [address] [place] [address] [place] Urea nitrogen [Mass/Vol] 7 mg/dL Low 9-23 [facility] Comment on above: Performed By: #### B MP #### [facility] [address] [place] [address] [place] Creatinine and Glomerular fi ltration rate.predicted panel (S/P/Bld)Ordered By: KATYA SIMENTAL on 03-13-2022 Creatinine [Mass/Vol] 0.77 mg/dL 0.44-1.03 [facility] Estimated glomerular filtrat ion rate (GFR) non- AmericanOrdered By: KATYA SIMENTAL on 03-13-2022 GFR/1.73 sq M.predicted among non-blacks MDRD (S/P/Bld) [Vol rate/Area] > 60 mL/Min [facility] HCG ( test) IA.rapi d Ql (U)Ordered By: KATYA SIMENTAL on 03-13-2022 HCG ( test) Ql (U) Negative [facility] HCG,Urineon 03-13-2022 Beta HCG ( test) Ql (U) Negative Normal [facility] Comment on above: Result Comment: PERF ORMED BY: [facility] [address] [facility] [address] PATHOLOGIST HEALTH PROMOTION SPECIALIST JACQUIE CRABTREE M.D. Performed By: #### U HCG #### [place] [address] Microorganism identified Cx Nom (Unsp spec)on 03-13-2022 CULTURE, ORGANISM ID ANAEROBE [id number] Abnormal [facility] Comment on above: Order Comment: Speci men Type: MICROBIAL ISOLATE Ordering Facility: [facility] Address: [address] [place], [place] [phone] Result Comment: Prev otella bivia Performed By: #### 1 1475-1 #### [facility] CLIA [id number] [address] [place] [address] [place] No Panel InformationOrdered By: KATYA SIMENTAL on 03-13-2022 Estimated GFR () > 60 mL/Min [facility] Comment on above: GFR estimated refere nce range: According to KDOQI guidelines, <60 ml/min/1.73m2 is sufficient to diagnose a patient with chronic kidney disease. Pharmacy Creatinine Clearance (Chem 159.38 [facility] Serum or plasma calcium seema urement (mass/volume)Ordered By: KATYA SIMENTAL on 03-13-2022 Calcium [Mass/Vol] 8.9 mg/dL 8.2-10.2 [facility] Serum or plasma chloride laura surement (moles/volume)Ordered By: KATYA SIMENTAL on 03-13-2022 Chloride [Moles/Vol] 98 mmol/L 95-114 [facility] Serum or plasma glucose seema urement (mass/volume)Ordered By: KATYA SIMENTAL on 03-13-2022 Glucose [Mass/Vol] 95 mg/dL 70-100 [facility] Comment on above: ADA recommended refe rence range Random Glucose Reference Range is dependent on time and content of last meal. Glucose of more than 200 mg/dL in a nonstressed, ambulatory subject supports the diagnosis of Diabetes Mellitus. Serum or plasma potassium me asurement (moles/volume)Ordered By: KATYA SIMENTAL on 03-13-2022 Potassium [Moles/Vol] 3.8 mmol/L 3.5-5.1 [facility] Serum or plasma sodium measu rement (moles/volume)Ordered By: KATYA SIMENTAL on 03-13-2022 Sodium [Moles/Vol] 133 mmol/L 136-146 [facility] Serum or plasma total carbon dioxide measurement (moles/volume)Ordered By: KATYA SIMENTAL on 03-13-2022 CO2 [Moles/Vol] 24.4 mmol/L 22.0-30.0 [facility] Serum or plasma urea nitroge n measurement (mass/volume)Ordered By: KATYA SIMENTAL on 03-13-2022 Urea nitrogen [Mass/Vol] 7 mg/dL - [facility] COVID-19 FRon 03-09-2022 SARS-CoV-2 (COVID-19) RNA EVARISTO+probe Ql (Unsp spec) Negative Normal Negative [facility] Comment on above: Order Comment: Healt hcare Worker?: N Result Comment: Testing for SARS-CoV-2 by RT-PCR This test was developed and its performance characteristics determined by [employer] and validated at the [facility]. This test has not been FDA cleared [...] is terminated or revoked sooner. PERFORMED BY: [place] [address] PATHOLOGIST HEALTH PROMOTION SPECIALIST JACQUIE CRABTREE M.D. Performed By: #### C OVID 19 [facility] #### [address] COVID-19 Positive/NegativeOr dered By: John Mack on 03-09-2022 SARS-CoV-2 (COVID-19) N gene EVARISTO+probe Ql (Resp) Negative Negative [facility] Comment on above: Testing for SARS-CoV -2 by RT-PCR This test was developed and its performance characteristics determined by [employer] and validated at the [facility]. This test has not been FDA cleared [...] on 02-28-2022 Anaerobic Culture Prevotella bivia F [facility] Bacteria identified Aer cx N om (Unsp spec)Ordered By: John Mack on 02-15-2022 Aerobic Culture Escherichia coli [facility] Aerobic Culture Strep. agalactiae Grp B [facility] ABO and Rh group post transf usion reaction Nom (Bld)Ordered By: John Mack on 02-14-2022 Microscopic observation Gram stain Nom (Unsp spec) [facility] ANTIMICROBIAL SUSCEPT-ANAERO BEon 02-13-2022 FINAL REPORT SEE NOTE Normal [facility] Comment on above: Order Comment: Speci men Type: MICROBIAL ISOLATE Ordering Facility: [facility] Address: [address] [place] [phone] Result Comment: Prev otella bivia Organism identified [...] methodology. Interpret results with caution. Performed by [facility], [address] [place] [address] www.[employer], Kaity Eckert MD, Lab. Director Performed By: #### S [facility] #### [employer] [facility] CLIA [id number] [address] [place] [address] Aerobic Cultureon 02-13-2022 Aerobic Culture Comment R LABIAL LES ION DEEP WOUND CULTURE Light Normal Skin Keerthi 2 Days Comment R LABIAL LESION DEEP WOUND CULTURE No Anaerobes Isolated 3 Days Comment R LABIAL LESION DEEP WOUND CULTURE Gram Stain Result 3+ White Blood Cells No Bacteria Seen PERFORMED BY: [place] [address] PATHOLOGIST HEALTH PROMOTION SPECIALIST JACQUIE CRABTREE M.D. [facility] Comment on above: Performed By: #### A ERC #### [address] Aerobic Culture Comment R PUBIS LESI ON DEEP WOUND CULTURE ORGANISM: Escherichia coli (O:ESCCOL) Quantity of Growth Light Growth ORGANISM: Strep. agalactiae Grp B (O:B) Quantity of Growth Rare Growth Comment R PUBIS LESION DEEP WOUND CULTURE ORGANISM: Prevotella bivia (O:PREBIV) Comments Sent to [facility] for Sensitivity Testing Quantity of Growth [...] methology. Interpret results with caution. Testing performed [facility] Comment R PUBIS LESION DEEP [...] RESISTANT TO ALL B-LACTAM DRUGS. PERFORMED BY: [place] [address] PATHOLOGIST HEALTH PROMOTION SPECIALIST JACQUIE CRABTREE M.D. Normal [facility] Comment on above: Performed By: #### U HCG #### [address] Bacterial susceptibility john el MARY (Isol)on 02-13-2022 BLACT Positive Normal [facility] Comment on above: Order Comment: Speci men Type: MICROBIAL ISOLATE Ordering Facility: [facility] Address: [address] [place] [phone] Performed By: #### 5 0545-3 #### [facility] CLIA [id number] [address] [place] [address] [place] CULTURE, ORGANISM MARY RESULT [id number] Abnormal [facility] Comment on above: Order Comment: Speci men Type: MICROBIAL ISOLATE Ordering Facility: [facility] Address: [address] [place], [place] [phone] Result Comment: Prev otella bivia Performed By: #### 5 0545-3 #### [facility] CLIA [id number] [address] [place] [address] [place] [id number] [place] HCG ( test) IA.rapi d Ql (U)Ordered By: Dillon Miranda on 02-13-2022 HCG ( test) Ql (U) Negative [facility] HCG,Urineon 02-13-2022 Beta HCG ( test) Ql (U) Negative Normal [facility] Comment on above: Result Comment: PERF ORMED BY: [place] [address] PATHOLOGIST HEALTH PROMOTION SPECIALIST JACQUIE CRABTREE M.D. Performed By: #### U HCG #### [address] 02-13-2022 L --- Specimen: [id number] Received: 02/14/22 Status: OSCAR Woody Num: [id number] Spec Type: Surgical Subm Dr: John Mack MD Tissues: A Debridement-Skin/Other Than Skin (RT PUBIS) B Debridement-Skin/Other Than Skin (LT LABIAL) C Debridement-Skin/Other Than Skin (RT LABIAL) D Debridement-Skin/Other Than Skin (RT ABDOMINAL WALL) Procedures: HE Stain/4, Gross/Micro L3/4 Patient Age/Sex Location Account Attending Physician Margaret Prieto /F CO [id number] John Mack MD SPEC NUM: [id number] RECD: 02/14/22 STATUS: OSCAR ALEGRELasha NUM: [id number] DANIEL: 02/13/22-[address] [place] [address]: John Mack MD ENTERED: 02/14/22-[address] [facility] [address]: BRODY TYPE: Surgical DEPT: S ORDERED: [...] Multiple leg and groin lesions, hidradenitis Specimen: [id number] Received: 02/14/22 Status: OSCAR Mckay Num: [id number] Spec Type: Surgical Subm Dr: John Mack MD Tissues: A Debridement-Skin/Other Than Skin (RT PUBIS) B Debridement-Skin/Other Than Skin (LT LABIAL) C Debridement-Skin/Other Than Skin (RT LABIAL) D Debridement-Skin/Other Than Skin (RT ABDOMINAL WALL) Procedures: HE Stain/4, Gross/Micro L3/4 Patient: Margaret Prieto [id number] (Continued) Specimen: [id number] Received: 02/14/22 (Continued) Signed (signature on file) Santi Nichols MD (Michelle) 02/15/22 1722 Specimen: [id number] Received: 02/14/22 Status: OSCAR Mckay Num: [id number] Spec Type: Surgical Subm Dr: John Mack MD Tissues: A Debridement-Skin/Other Than Skin (RT PUBIS) B Debridement-Skin/Other Than Skin (LT LABIAL) C Debridement-Skin/Other Than Skin (RT LABIAL) D Debridement-Skin/Other Than Skin (RT ABDOMINAL WALL) Procedures: HE Stain/4, Gross/Micro L3/4 Patient: Margaret Prieto [id number] (Continued) Specimen: [id number] Received: 02/14/22 (Continued) Gross Description A. Received [...] the patient's (more content not included)... Normal [facility] Microorganism identified Cx Nom (Unsp spec)on 02-13-2022 CULTURE, ORGANISM ID ANAEROBE [id number] Abnormal [facility] Comment on above: Order Comment: Speci men Type: MICROBIAL ISOLATE Ordering Facility: [facility] Address: [address] [place] [phone] Result Comment: Prev otella bivia Performed By: #### 1 1475-1 #### [facility] CLIA [id number] [address] [place] [address] [place] COVID[facility] SARS-CoV-2 (COVID-19) RNA EVARISTO+probe Ql (Unsp spec) Negative Normal Negative [facility] Comment on above: Order Comment: Healt hcare Worker?: N Result Comment: Testing for SARS-CoV-2 by RT-PCR This test was developed and its performance characteristics determined by [employer] and validated at the [facility]. This test has not been FDA cleared [...] is terminated or revoked sooner. PERFORMED BY: [place] [address] PATHOLOGIST HEALTH PROMOTION SPECIALIST JACQUIE CRABTREE M.D. Performed By: #### C OVID 19 [facility] #### [address] COVID-19 Positive/NegativeOr dered By: John Mack on 02-09-2022 SARS-CoV-2 (COVID-19) N gene EVARISTO+probe Ql (Resp) Negative Negative [facility] Comment on above: Testing for SARS-CoV -2 by RT-PCR This test was developed and its performance characteristics determined by [employer] and validated at the [facility]. This test has not been FDA cleared [...] 05-3 Calcium [Mass/Vol] 8.9 mg/dL Normal 8.2-10.2 [facility] Comment on above: Result Comment: PERF ORMED BY: [place] [address] PATHOLOGIST HEALTH PROMOTION SPECIALIST JACQUIE CRABTREE M.D. Performed By: #### C BC, BMP #### [place] [address] [place] [address] [place] Chloride [Moles/Vol] 99 mmol/L Normal 95-114 [facility] Comment on above: Performed By: #### C BC, BMP #### [place] [address] [place] CO2 [Moles/Vol] 26.3 mmol/L Normal 22.0-30.0 [facility] Comment on above: Performed By: #### C BC, BMP #### [address] Creatinine [Mass/Vol] 0.77 mg/dL Normal 0.44-1.03 [facility] Comment on above: Performed By: #### C BC, BMP #### [place] [address] [place] Estimated GFR ( Vinh > 60 [facility] Comment on above: Result Comment: GFR estimated reference range: According to KDOQI guidelines, <60 ml/min/1.73m2 is sufficient to diagnose a patient with chronic kidney disease. Performed By: #### C BC, BMP #### [address] Estimated GFR (Non- Am > 60 Normal [facility] Comment on above: Performed By: #### C BC, BMP #### [place] [address] [place] Glucose [Mass/Vol] 100 mg/dL Normal 70-100 [facility] Comment on above: Result Comment: [place] Glucose Reference Range is dependent on time and content of last meal. Glucose of more than 200 mg/dL in a nonstressed, ambulatory subject supports the diagnosis of Diabetes Mellitus. ADA recommended reference range Performed By: #### C BC, BMP #### [place] [address] [place] Potassium [Moles/Vol] 3.8 mmol/L Normal 3.5-5.1 [facility] Comment on above: Performed By: #### C BC, BMP #### [address] Sodium [Moles/Vol] 137 mmol/L Normal 136-146 [facility] Comment on above: Performed By: #### C BC, BMP #### [address] Urea nitrogen [Mass/Vol] 11 mg/dL Normal 9-23 [facility] Comment on above: Performed By: #### C BC, BMP #### [address] Complete Blood Count Auto Di ffon 01-31-2022 Basophils (Bld) [#/Vol] 0.1 10*3/uL Normal 0.0-0.2 [facility] Comment on above: Result Comment: PERF ORMED BY: [place] [address] PATHOLOGIST HEALTH PROMOTION SPECIALIST JACQUIE CRABTREE M.D. Performed By: #### C BC, BMP #### [address] Basophils/100 WBC (Bld) 0.7 % Normal . [facility] Comment on above: Performed By: #### C BC, BMP #### [address] Eosinophils (Bld) [#/Vol] 0.3 10*3/uL Normal 0.0-0.45 [facility] Comment on above: Performed By: #### C BC, BMP #### [place] [address] [place] Eosinophils/100 WBC (Bld) 2.7 % Normal . [facility] Comment on above: Performed By: #### C BC, BMP #### [address] Erythrocyte distribution width (RBC) [Ratio] 14.3 % Normal 11.9-15.3 [facility] Comment on above: Performed By: #### C BC, BMP #### [place] [address] Hematocrit (Bld) [Volume fraction] 41.9 % Normal 34.0-46.4 [facility] Comment on above: Performed By: #### C BC, BMP #### [place] [address] Hemoglobin (Bld) [Mass/Vol] 13.9 g/dL Normal 11.8-15.4 [facility] Comment on above: Performed By: #### C BC, BMP #### [place] [address] Lymphocytes (Bld) [#/Vol] 2.0 10*3/uL Normal 1.00-4.8 [facility] Comment on above: Performed By: #### C BC, BMP #### [address] Lymphocytes/100 WBC (Bld) 15.9 % Normal . [facility] Comment on above: Performed By: #### C BC, BMP #### [place] [address] MCH (RBC) [Entitic mass] 26.4 pg Normal 24.7-34.3 [facility] Comment on above: Performed By: #### C BC, BMP #### [place] [address] MCV (RBC) [Entitic vol] 79.5 fL Low 80-100 [facility] Comment on above: Performed By: #### C BC, BMP #### [place] [address] Mean Corpuscular HGB Conc 33.2 g/dL Normal 32.0-35.0 [facility] Comment on above: Performed By: #### C BC, BMP #### [address] Monocytes (Bld) [#/Vol] 0.8 10*3/uL Normal 0.0-0.8 [facility] Comment on above: Performed By: #### C BC, BMP #### [facility] [address] [place] [id number] [place] Monocytes/100 WBC (Bld) 6.7 % Normal . [facility] Comment on above: Performed By: #### C BC, BMP #### [facility] [address] [place] [address] [place] Neutrophils (Bld) [#/Vol] 9.2 10*3/uL High 1.8-7.7 [facility] Comment on above: Performed By: #### C BC, BMP #### [facility] [address] [place] [id number] [place] Neutrophils/100 WBC (Bld) 74.0 % Normal . [facility] Comment on above: Performed By: #### C BC, BMP #### [facility] [address] [place] [id number] [place] Nucleated RBC/100 WBC (Bld) [Ratio] 0.0 % Normal 0-0.5 [facility] Comment on above: Performed By: #### C BC, BMP #### [facility] [address] [place] [id number] [place] Platelet mean volume (Bld) [Entitic vol] 6.9 fL Normal 6.3-10.7 [facility] Comment on above: Performed By: #### C BC, BMP #### [facility] [address] [place] [id number] [place] Platelets (Bld) [#/Vol] 363 10*3/uL Normal 150-450 [facility] Comment on above: Performed By: #### C BC, BMP #### [facility] [address] [place] [address] [place] RBC (Bld) [#/Vol] 5.26 10*6/uL High 3.60-5.00 [facility] Comment on above: Performed By: #### C BC, BMP #### [facility] [address] [place] [id number] [place] WBC (Bld) [#/Vol] 12.5 10*3/uL High 4.5-11.0 [facility] Comment on above: Performed By: #### C BC, BMP #### [address] ECG 12 lead ECGon 01-31-2022 ECG 12 lead ECG [facility] [place] [address] [place] [address] Electrocardiograph Report Signed Patient: Margaret Prieto MR#: [id number] : 1990 Acct:[id number] Age/Sex: 31 / F ADM Date: 01/31/22 Loc: PS Room: Type: [facility] Attending Dr: John Mack MD Ordering Provider: [...] Signed By Susanna Ruiz DO 01/31 1848 [facility] CNPAnisha 10-28-2021 CNPN Telephone (HEMTSA) MARGARET PRIETO ([id number]) 1990 F Date Time Provider Department 10/28/21 [...] so sorry she's going through so much. Marcin Zayas RN 10/28/2021 4:19 PM Signed Patient [...] for Visit: Patient Update [1234] Patient Question [0547] Prescriptions as of 10/28/2021 - tetracycline (SUMYCIN) [...] 25 mg by mouth once daily. - O42-fkivngmonvtx calcium-B6 (FOLTX) 2-1.13-25 mg tab Take 1 [...] Status:Closed by MARCIN ZAYAS on 10/28/21 Normal [facility] Physician Referralon 022 Physician Referral [id number] 206 [id number] D:127 Normal [facility] Physician Referralon 021 Physician Referral [id number] 105 [id number] D:127 Normal [facility] Vital Signs Date Time Vital Sign Value Performing Clinician Facility 05-05-2022 09:25-0400 Body temperature 97.9 [degF] MD John Mack Work Phone: [facility] 05-05-2022 09:25-0400 Diastolic blood pressure 93 mm[Hg] MD John Mack Work Phone: [facility] 05-05-2022 09:25-0400 Heart rate 78 /min MD John Mack Work Phone: [facility] 05-05-2022 09:25-0400 Respiratory rate 18 /min MD John Mack Work Phone: [facility] 05-05-2022 09:25-0400 SaO2% (BldA) [Mass fraction] 99 % MD John Mack Work Phone: [facility] 05-05-2022 09:25-0400 Systolic blood pressure 156 mm[Hg] MD John Mack Work Phone: [facility] 05-05-2022 09:24-0400 Body height 165.1 cm MD John Mack Work Phone: [facility] 05-05-2022 09:24-0400 Body weight 155.9 kg MD John Mack Work Phone: [facility] 04-21-2022 09:29-0400 Body temperature 98.2 [degF] MD John Mack Work Phone: [facility] 04-21-2022 09:29-0400 Diastolic blood pressure 59 mm[Hg] MD John Mack Work Phone: [facility] 04-21-2022 09:29-0400 Heart rate 74 /min MD John Mack Work Phone: [facility] 04-21-2022 09:29-0400 Systolic blood pressure 141 mm[Hg] MD John Mack Work Phone: [facility] 04-21-2022 08:29-0400 Body height 165.1 cm MD John Mack Work Phone: [facility] 04-21-2022 08:29-0400 Body weight 155 kg MD John Mack Work Phone: [facility] 04-10-2022 14:46-0400 Body height 165.1 cm MD John Mack Work Phone: [facility] 04-10-2022 14:46-0400 Body mass index (BMI) [Ratio] 55.4 kg/m2 MD John Mack Work Phone: [facility] 04-10-2022 14:46-0400 Body weight 151.04 kg MD John Mack Work Phone: [facility] 04-10-2022 14:25-0400 Diastolic blood pressure 69 mm[Hg] MD John Mack Work Phone: [facility] 04-10-2022 14:25-0400 Heart rate 80 /min MD John Mack Work Phone: [facility] 04-10-2022 14:25-0400 Respiratory rate 16 /min MD John Mack Work Phone: [facility] 04-10-2022 14:25-0400 SaO2% (BldA) [Mass fraction] 100 % MD John Mack Work Phone: [facility] 04-10-2022 14:25-0400 Systolic blood pressure 119 mm[Hg] MD John Mack Work Phone: [facility] 04-10-2022 14:10-0400 Inhaled oxygen flow rate 4 L/min MD John Mack Work Phone: [facility] 04-10-2022 11:36-0400 Body temperature 97.9 [degF] MD John Mack Work Phone: [facility] 03-13-2022 19:00-0400 Diastolic blood pressure 92 mm[Hg] MD John Mack Work Phone: [facility] 03-13-2022 19:00-0400 Heart rate 84 /min MD John Mack Work Phone: [facility] 03-13-2022 19:00-0400 Respiratory rate 16 /min MD John Mack Work Phone: [facility] 03-13-2022 19:00-0400 SaO2% (BldA) [Mass fraction] 98 % MD John Mack Work Phone: [facility] 03-13-2022 19:00-0400 Systolic blood pressure 148 mm[Hg] MD John Mack Work Phone: [facility] 03-13-2022 18:03-0400 Body temperature 98 [degF] MD John Mack Work Phone: [facility] 03-13-2022 17:33-0400 Inhaled oxygen flow rate 6 L/min MD John Mack Work Phone: [facility] 03-13-2022 17:13-0400 Body height 165.1 cm MD John Mack Work Phone: [facility] 03-13-2022 17:13-0400 Body mass index (BMI) [Ratio] 56.9 kg/m2 MD John Mack Work Phone: [facility] 03-13-2022 17:13-0400 Body weight 155.12 kg MD John Mack Work Phone: [facility] 02-13-2022 17:05-0400 Diastolic blood pressure 81 mm[Hg] MD John Mack Work Phone: [facility] 02-13-2022 17:05-0400 Heart rate 76 /min MD John Mack Work Phone: [facility] 02-13-2022 17:05-0400 Respiratory rate 16 /min MD John Mack Work Phone: [facility] 02-13-2022 17:05-0400 SaO2% (BldA) [Mass fraction] 94 % MD John Mack Work Phone: [facility] 02-13-2022 17:05-0400 Systolic blood pressure 131 mm[Hg] MD John Mack Work Phone: [facility] 02-13-2022 15:44-0400 Body height 165.1 cm MD John Mack Work Phone: [facility] 02-13-2022 15:44-0400 Body mass index (BMI) [Ratio] 56.5 kg/m2 MD John Mack Work Phone: [facility] 02-13-2022 15:44-0400 Body weight 154 kg MD John Mack Work Phone: [facility] 02-13-2022 12:20-0400 Body temperature 97.9 [degF] MD John Mack Work Phone: [facility] 08-02-2020 13:24-0500 BMI (Body Mass Index) 58.74 kg/m2 [facility] 08-02-2020 13:24-0500 Body Temperature 98.4 [degF] [facility] 08-02-2020 13:24-0500 Body weight 160.12 kg [facility] 08-02-2020 13:24-0500 BP Diastolic 91 mm[Hg] [facility] 08-02-2020 13:24-0500 BP Systolic 150 mm[Hg] [facility] 08-02-2020 13:24-0500 Height 165.1 cm [facility] 08-02-2020 13:24-0500 Pulse (Heart Rate) 91 /min [facility] 08-02-2020 13:24-0500 Pulse Oximetry 97 % [facility] Encounters Encounter Date Encounter Type Care Provider Facility Start: 06-25-2023 End: 06-26-2023 ambulatory Yancy Cancino MD Facility:[facility] Start: 05-28-2023 End: 05-29-2023 ambulatory Yancy Cancino MD Facility:[facility] Start: 03-12-2023 End: 03-13-2023 ambulatory Yancy Cancino MD Facility:[facility] Start: 02-26-2023 End: 02-27-2023 ambulatory Yancy Cancino MD Facility:[facility] Start: 02-01-2023 ambulatory NIKOLAS SHAMMO Facility:[facility] Start: 12-05-2022 ambulatory NIKOLAS SHAMMO Facility:[facility] Start: 11-22-2022 End: 11-22-2022 ambulatory NIKOLAS SHAMMO Facility:[facility] Start: 11-02-2022 End: 11-03-[address] KACEY KAPOOR . Facility:[facility] Start: 10-24-2022 Encounter for genera l adult medical examination without abnormal [facility] Start: 10-23-2022 End: 10-24-2022 Encounter for general adult medical examination without abnormal findings NIKOLAS SHAMMO Facility:[facility] Start: 10-23-2022 End: 10-24-2022 ambulatory NIKOLAS SHAMMO Facility:[facility] Start: 09-28-2022 End: 09-29-[address] KACEY KPAOOR . Facility:[facility] Start: 09-26-2022 End: 09-26-2022 ambulatory DELONTE BAUTISTA . Facility:[facility] Start: 09-05-2022 End: 09-05-2022 ambulatory [facility] Facility:[facility] Start: 06-05-2022 End: 06-06-2022 ambulatory [facility] Facility:[facility] Start: 06-01-2022 End: 06-02-[address] KACEY KAPOOR . Facility:[facility] Start: 05-05-2022 End: 05-05-2022 ambulatory John Mack Facility:[facility] Start: 05-05-2022 Registered Recurring MD John Mack Work Phone: [place] Start: 04-10-2022 End: 04-10-2022 ambulatory John Mack Facility:[facility] Start: 04-10-2022 End: 04-10-2022 Admission to same day surgery center MD John Mack Work Phone: [place] [place] Start: 04-06-2022 End: 04-06-2022 ambulatory John Mack Facility:[facility] Start: 04-06-2022 End: 04-06-2022 Patient encounter procedure MD John Mack Work Phone: [place] Start: 03-30-2022 End: 03-30-2022 ambulatory Dominique Garrison Facility:[facility] Start: 03-30-2022 End: 03-30-2022 Patient encounter procedure MD John Mack Work Phone: [place] [place] Start: 03-13-2022 End: 03-13-2022 ambulatory John Mack Facility:[facility] Start: 03-13-2022 End: 03-13-2022 Admission to same day surgery center MD John Mack [facility] [place] Start: 03-09-2022 End: 03-09-2022 ambulatory John Mack Facility:[facility] Start: 03-09-2022 End: 03-09-2022 Patient encounter procedure MD John Mack Work Phone: [place] Start: 03-01-2022 End: 03-02-2022 ambulatory PAM FLANAGAN Facility: Start: 02-13-2022 End: 02-13-2022 ambulatory John Mack Facility:[facility] Start: 02-13-2022 End: 02-13-2022 Admission to same day surgery center MD John Mack Work Phone: [place] [place] Start: 02-09-2022 End: 02-09-2022 ambulatory John Mack Facility:[facility] Start: 02-09-2022 End: 02-09-2022 Patient encounter procedure MD John Mack Work Phone: [place] Start: 01-31-2022 End: 01-31-2022 ambulatory John Mack Facility:[facility] Start: 08-02-2020 End: 08-02-2020 Patient encounter procedure SANTIAGO HOLGUIN [facility] Start: 08-02-2020 End: 08-02-2020 Office outpatient new 60 minutes [facility] Holguin Work Phone: [facility] Rheumatology Comment on above: Lupus (HCC) (Primary Dx); Suppurative hidradenitis; Chronic fatigue; YULY (obstructive sleep apnea); Vitamin D insufficiency; Morbid obesity with BMI of 50.0-59.9, adult (HCC) Start: 06-03-2020 Patient encounter procedure ELIZABETH TERRELL [facility] Procedures Date Procedure Procedure Detail Performing [...] Author Start: 05-03-2022 Registered Recurring Registered Recu [facility] Start: 04-21-2022 Registered Recurring Registered Recu [facility] Start: 04-10-2022 [facility] Work Phone: Start: 04-10-2022 [facility] Work Phone: Start: 04-10-2022 OR Wound Debridement/I&D/Hydraden itis (Right) OR Wound Debridement/I&D/Hydrad enitis (Right) [facility] Start: 04-10-2022 End: 04-10-2022 Admission to same day surgery center Departed Surgical Day Care [place] [place] Start: 04-06-2022 End: 04-06-2022 Patient encounter procedure Departed Clinical [place] Start: 03-13-2022 End: 03-13-2022 [place] Work Phone: Start: 02-13-2022 End: 02-13-2022 [facility] Work Phone: Start: 05-04-2020 Influenza vaccinatio n given Sequential Influenza Vaccine (#1) [facility] Start: 06-10-2019 Tetanus vaccination Tetanus: Every 1 0yrs [facility] Start: 11-17-2007 Hepatitis C antibody , confirmatory test Hepatitis C Screening [facility] Start: 2004 HIV screening HIV Screening [facility] Start: 2001 Adolescent depressio n screening assessment Depression Screening (PHQ9) [facility] Start: 1992 History and physical examination, annual for health maintenance Wellness Visit [facility] Start: 1989 Screening for malign ant neoplasm of cervix Pap Smear [facility] Patient Education [facility] Work Phone: Patient referral [facility] Work Phone: Immunizations Immunization Date Immunization Notes Care Provider Harriet lao 06-10-2009 meningococcal polysa ccharide (groups A, C, Y and W-135) diphtheria toxoid conjugate vaccine (MCV4P) [facility] 06-10-2009 tetanus toxoid, redu iam diphtheria toxoid, and acellular pertussis vaccine, adsorbed [facility] 06-09-2009 influenza, seasonal, injectable [facility] 06-15-2005 influenza, seasonal, injectable [facility] 12-14-2003 hepatitis B vaccine, pediatric or pediatric/adolescent dosage [facility] 08-26-2003 hepatitis B vaccine, pediatric or pediatric/adolescent dosage [facility] 03-30-2003 hepatitis B vaccine, pediatric or pediatric/adolescent dosage [facility] 02-22-1996 diphtheria, tetanus toxoids and acellular pertussis vaccine [facility] 12-24-1995 measles, mumps and r ubella virus vaccine [facility] 12-24-1995 poliovirus vaccine, inactivated [facility] 05-14-1991 diphtheria, tetanus toxoids and acellular pertussis vaccine [facility] 05-14-1991 haemophilus influenz ae type b vaccine, conjugate unspecified formulation [facility] 05-14-1991 poliovirus vaccine, inactivated [facility] 02-26-1991 measles, mumps and r ubella virus vaccine [facility] 12-18-1990 haemophilus influenz ae type b vaccine, conjugate unspecified formulation [facility] 07-01-1990 diphtheria, tetanus toxoids and acellular pertussis vaccine [facility] 04-29-1990 diphtheria, tetanus toxoids and acellular pertussis vaccine [facility] 04-29-1990 poliovirus vaccine, inactivated [facility] 02-27-1990 diphtheria, tetanus toxoids and acellular pertussis vaccine [facility] 02-27-1990 poliovirus vaccine, inactivated [facility] Payers Date Payer Category Payer Medicaid 2022 Medicare 2020 Medicaid [place] [id number] 2020-Present [id number] 2019 Medicare MEDICARE MEDICAR E PART A & B [id number] 2019-Present [place] [id number] 1989 Unknown [id number] [id number] 1989 Unknown [id number] [id number]3 1989 Unknown [id number] 2.16.840.1.528047.3.579.2.593 1989 Unknown [id number] 2.16.840.1.923100.3.579.2.593 1989 Unknown [id number] 2.16.840.1.751380.3.579.2.593 1989 Unknown [id number] 2.16.840.1.127483.3.579.2.593 1989 Unknown [id number] 2.16.840.1.444819.3.579.2.593 1989 Unknown [id number] 2.16.840.1.084713.3.579.2.593 1989 Unknown [id number] 2.16.840.1.060325.3.579.2.593 1989 Unknown [id number] 2.16.840.1.077199.3.579.2.593 1989 Unknown [id number] 2.16.840.1.658797.3.579.2.593 1989 Unknown [id number] 2.16.840.1.337044.3.579.2.593 1989 Unknown [id number] 2.16.840.1.790194.3.579.2.593 1989 Unknown [id number] 2.16.840.1.895937.3.579.2.196 1989 Unknown [id number] 2.16.840.1.514856.3.579.2.196 1989 Unknown [id number] 2.16.840.1.414869.3.579.2.196 1989 Unknown [id number] 2.16.840.1.675848.3.579.2.196 1960 Medicaid [id number] 1960 Medicare [id number] 1960 Self-pay [id number] Unknown [id number] [id number] Social History Date Type Detail Facility Start: 08-02-2020 End: 04-10-2022 Tobacco smoking status NHIS Former smoker [facility] Start: 08-02-2020 Cigarettes smoked current (pack per day) - Reported [facility] Start: 08-02-2020 Tobacco use and exposure Never used [facility] Start: 08-02-2020 Alcohol intake Lifetime non-d fabiola (finding) [facility] Start: 06-03-2020 History SDOH Alcohol Frequency 1 [facility] Sex Assigned At Not on file [facility] Exposure to SARS-CoV -2 (event) Not sure [facility] Start: 1989 Sex Assigned At Female F [facility] Goals Date Patient Goal Desired Activity [...] with that as well. Other medications include Newton 5/325 b.i.d., sumatriptan, gabapentin 300 mg b.i.d. [...] pain relief. We will continue with her Newton 5/325 b.i.d. Education was given regarding stretches and exercises, and she is to continue working with her PCP on a rheumatology workup. We will see her in three months' time to maintain her pain medications. Patient agrees with this plan. [facility] Consultation note 09-28-2022 Note Date & Type [...] medications include baclofen 10 mg q.h.s., gabapentin, Newton 5/325 b.i.d., duloxetine, Remicade and Xarelto. The [...] and all question were answered today. [facility] Clinical Note 06-05-2022 Note Date & Type Note Facility 06-05-2022 Note PROCEDURE: XR HIP RT 2 3V W PELVIS COMPARISON: None. HISTORY: Pain in right hip joint FINDINGS: BONES:No fracture, acute abnormality, or significant arthropathy. SOFT TISSUES:Negative. No visible soft tissue swelling. EFFUSION:None visible. OTHER: Negative. IMPRESSION: No acute abnormality Electronically authenticated by: KATYA BECK Date: 2022-06-05 16:27 [facility] Consultation note 06-01-2022 Note Date & Type [...] appointment being tomorrow. She is on Rexulti, Newton 5/325 b.i.d., gabapentin 300 mg b.i.d., Cymbalta, [...] procedure. She agrees to move forward. [facility] Consultation note 03-01-2022 Note Date & Type Note Facility 03-01-2022 Note CONSULTATION CONSULTATION DATE: 03/02/2022 This is a 31-year-old female returning to the clinic for a 3-month follow-up for her chronic pain syndrome and chronic lower back pain and bilateral hips. The patient does have hidradenitis suppurativia and is currently under the care of Dr. Mack in the [facility] in [place]. She has been having increasing amounts of boils which are causing a lot of pain. He has recently removed four wounds and has one that is deeply patched. It was found that she had a massive infection and is currently on Levaquin and Flagyl. Dr. Mack has placed her on Newton 5/325 b.i.d. which is the same medication dose and frequency as our prescription. The patient has put our prescription on hold and is using the wound clinic only at this time. 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 The patient does [...] which is beneficial. In addition to the Newton, she takes gabapentin 300 mg b.i.d., Baclofen [...] her to discuss with Dr. Mack at [place] regarding continuing the Newton for her. We will see her in three months' time unless otherwise indicated, or if she prefers to stick with Dr. Mack at this time, that is fine as well. The patient agrees with the plan of care. [facility] Signed and Approved by: ACE CERVANTES . 03/09/2022 10:22:00 [facility] Evaluation note Note Date & Type Note Facility Evaluation note No assessment information availa [facility] Work Phone: Instructions * Patient Instructions* Corine Best MA - 08/02/2020 1:49 PM EST YOU DO NOT HAVE LUPUS START CPAP LOSE WEIGHT TAKE VITAMIN D3 1,000 UNITS DAILY documented in this encounter History of Present Illness * Santiago Holguin MD - 08/02/2020 1:32 PM EST I had the pleasure of seeing Margaret Prieto in consultation at [facility] [address] [place] [id number] for evaluation of lupus Elizabeth Terrell [...] really depressed about the situation. She gets Newton on a as needed basis for pain.. [...] Depression Edema External otitis Factor V deficiency ([facility]) Factor V Leiden mutation ([facility]) GERD (gastroesophageal reflux disease) Shalom's disease Hidradenitis Hidradenitis suppurativa History of DVT (deep vein thrombosis) Hypercholesteremia Hypertension Morbid obesity with BMI of 50.0-59.9, adult ([facility]) Osteoarthritis Palpitations Perineal abscess Pilonidal cyst Pneumonia Pulmonary embolism ([facility]) Sebaceous cyst Shortness of breath Skin ulcer of groin with fat layer exposed ([facility]) Tachycardia Thrombophilia ([facility]) Type 2 diabetes mellitus ([facility]) Past Surgical History: She Past Surgical History: [...] file Gets together: Not on file Attends jain service: Not on file Active member of [...] antidsDNA antibody negative, SSA SSB antibody negative Qurehsi antibody negative, ENVIRONMENT COORDINATOR antibody negative, antihistone antibodies borderline positive at [...] Rheumatology Note: This dictation was generated using [employer] voice recognition software. 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 Advance Directives and Livin g [...] Diagnoses Lupus (HCC) Elizabeth Terrell MD [address] [facility] [address] [place] [address] Santiago Holguin MD [facility] [place] [address] INFORMATION SOURCE (unrecogn ized section and content) DATE CREATED AUTHOR 08/02/2020 [facility] DATE CREATED AUTHOR AUTHOR'S ORGANIZ ATION 10/30/2021 [facility] DATE CREATED AUTHOR AUTHOR'S ORGANIZ ATION 04/05/2022 [facility] DATE CREATED AUTHOR AUTHOR'S ORGANIZ ATION 10/07/2022 [facility] DATE CREATED AUTHOR AUTHOR'S ORGANIZ ATION 12/07/2022 [facility] DATE CREATED AUTHOR AUTHOR'S ORGANIZ ATION 07/03/2023 [facility] Care Teams (unrecognized sec tion and [...] BE BASED ON THE PRIMARY CLINICAL RECORDS. [facility] [employer] [facility] provides no warranty or guarantee of the accuracy or completeness of information in this document.
== END 2023-09-12 10:20 | disposition home or self-care (01) ==
LOC: MRI 10:19
PROVIDERS: PCP Nurse Practitioner Primary Care; Visit Provider Nurse Practitioner
DX: M48.061 Spinal stenosis, lumbar region without neurogenic claudication (principal)
CPT/HCPCS: 72148

== ENCOUNTER 2024-02-29 08:29 | Outpatient (OUT) | payer MEDICARE, MEDICAID, SELFPAY ==
--- NOTE | 2024-02-29 | US_ITS ---
The [address] [address] Patient Name: TERESSA PRIETO MRN: [id number] date: 1990 Sex: F Assigned Patient Location: US Current Patient Location: US Accession/Order Number: [id number] Exam Date: 02/29/2024 08:45 Report Date: 02/29/2024 09:36 At the request of: TREVOR JIMENEZ Procedure: US pelvis w/ transvaginal EXAMINATION: US pelvis w/ transvaginal HISTORY: PCOS COMPARISON: No relevant comparison available. FINDINGS: Transabdominal and transvaginal images The uterus is normal in size, contour and echotexture measuring 8.8 x 5.3 x 4.8 cm. No focal myometrial mass. The endometrium measures 10.3 mm, normal The right ovary is normal measuring 2.7 x 2.8 x 1.6 cm. Normal color Doppler flow The left ovary is normal measuring 2.6 x 2.0 x 1.5 cm. Normal color Doppler flow US/US pelvis w/ transvaginal IMPRESSION: Unremarkable exam. No evidence of polycystic ovarian morphology Electronically authenticated by: KATYA BECK Date: 02/29/2024 09:36
--- OUTSIDE RECORDS SUMMARY | 2024-02-29 08:50 | XMS_ITS | CCD ---
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 Name Role Phone Elizabeth Oneill Primary Care Provider [phone] SANTIAGO SHELL Admitting Unavailable ELIZABETH ONEILL Referring Unavailable ELIZABETH ONEILL Primary Care Unavailable SANTIAGO SHELL Attending Unavailable ELIZABETH ONEILL Primary Care Unavailable SANTIAGO SHELL Attending Unavailable MD John Carlson Attending Provider BRIAN Flanagan Primary Care Provider DO Dominique Garrison Attending Provider Carlson, John Attending Unavailable Pam Flanagan Primary Care Unavailable Carlson, John Admitting Unavailable Carlson, John Attending Unavailable Carlson, John Admitting Unavailable Pam Flanagan Primary Care Unavailable Carlson, John Attending Unavailable Carlson, John Admitting Unavailable Pam Flanagan Primary Care Unavailable Carlson, John Attending Unavailable Carlson, John Admitting Unavailable Pam Flanagan Primary Care Unavailable Carlson, John Admitting Unavailable Carlson, John Attending Unavailable Pam Flanagan Primary Care Unavailable Carlson, John Attending Unavailable Pam Flanagan Primary Care Unavailable Carlson, John Admitting Unavailable Dominique Garrison Attending Unavailable Dominique Garrison Admitting Unavailable Pam Flanagan Primary Care Unavailable Carlson, John Attending Unavailable Carlson, John Admitting Unavailable Pam Flanagan Primary Care Unavailable Carlson, John Attending Unavailable Pam Flanagan Primary Care Unavailable Carlson, John Admitting Unavailable [facility] Primary Care Unava ilmello KAPOOR ., DR KACEY Gray Admitting Unavailable ANTWON ., DR KACEY Gray Consulting Unavailable ANTWON ., DR KACEY Gray Attending Unavailable KAPOOR ., DR KACEY Gray Admitting Unavailable CERVANTES ., ACE Consulting Unavailable [facility] Unavailable KAPOOR ., DR KACEY Gray Attending Unavailable [facility] Unavailable CERVANTES ., ACE Consulting Unavailable KAPOOR ., DR KACEY Gray Admitting Unavailable KAPOOR ., DR KACEY Gray Attending Unavailable SHAMMO, [place] Primary Care Unavailable LAKSHMIPATHY ., NARENDRANATH Attending Norma vailable LAKSHMIPATHY ., NARENDMICHAELATH Admitting Norma vailable KAPOOR ., DR KACEY Gray Admitting Unavailable SHAMMO, NIKOLAS Primary Care Unavailable CERVANTES ., ACE Consulting Unavailable K[place]OOR ., DR KACEY Gray Attending Unavailable SHAMMO, NIKOLAS Admitting Unavailable SHAMMO, NIKOLAS Primary Care Unavailable SHAMMO, NIKOLAS Attending Unavailable [facility] Care Unava ilable CERVANTES ., ACE Attending Unavailable [...] Consulting Unavailable MICHELE ., DELONTE Attending Unavailable [facility] Primary Care Unava ilable MICHELE ., DELONTE Admitting Unavailable RANI .CHINYERE Consulting Unavailabl e DEREK MIRELES Consulting Unavailable KAPOOR ., DR KACEY Gray Attending Unavailable [facility] Care Unava ilable CERVANTES ., ACE Consulting Unavailable [place]OOR ., DR KACYE Gray Admitting Unavailable Barak CORTES, Yancy Cunningham Attending Unavailable Barak CORTES, Yancy Cunningham Attending Unavailable Barak CORTES, Yancy Cunningham Attending Unavailable Barak CORTES, Yancy Cunningham Attending Unavailable [facility] Provider CORINE CATHERINE Referring Unavailable THACKER, HARLEY Primary Care Unavailable Thacker, Harley Primary Care Provider THACKER, HARLEY Primary Care Unavailable THACKER, HARLEY Referring Unavailable ABHYANKAR SHARIF Attending Unavailable ABHYANKAR, SHARIF Attending Unavailable ABHYANKAR, SHARIF Referring Unavailable THACKER, HARLEY Primary Care Unavailable THACKER, HARLEY Primary Care Unavailable STEPHANI LUCAS Referring Unavai lable THACKER, HARLEY Primary Care Unavailable THACKER, HARLEY Primary Care Unavailable THACKER, HARLEY Referring Unavailable THACKER, HARLEY Primary Care Unavailable KATYA DENISE Attending Unavailable KATYA DENISE Referring Unavailable THACKER, HARLEY Primary Care Unavailable KATYA DENISE Referring Unavailable THACKER, HARLEY Primary Care Unavailable THACKER, HARLEY Referring Unavailable THACKER, HARLEY Primary Care Unavailable THACKER, HARLEY Referring Unavailable THACKER, HARLEY Primary Care Unavailable PAM MITTAL Attending Unavailable THACKER, HARLEY Referring Unavailable THACKER, HARLEY Primary Care Unavailable THACKER, HARLEY Referring Unavailable THACKER, HARLEY Primary Care Unavailable THACKER, HARLEY Referring Unavailable THACKER, HARLEY Primary Care Unavailable THACKER, HARLEY Referring Unavailable THACKER, HARLEY Primary Care Unavailable COLLINS MEJIA Admitting Unavailable COLLINS MEJIA Attending Unavailable COLLINS MEJIA Referring Unavailable THACKER, HARLEY Primary Care Unavailable COLLINS MEJIA Attending Unavailable COLLINS MEJIA Referring Unavailable THACKER, HARLEY Primary Care Unavailable MAYRA RAYA Attending Unavailable THACKER, HARLEY Primary Care Unavailable THACKER, HARLEY Referring Unavailable THACKER, HARLEY Primary Care Unavailable TALEBJOSED Attending Unavailable TALEB, MOHAMMAD Referring Unavailable THACKER, HARLEY Primary Care Unavailable CORINE CATHERINE Attending Unavailable THACKER, HARLEY Referring Unavailable THACKER, HARLEY Primary Care Unavailable CLARIBEL OLSON Attending Unavailable THACKER, HARLEY Referring Unavailable THACKER, HARLEY Primary Care Unavailable THACKER, HARLEY Attending Unavailable THACKER, HARLEY Referring Unavailable THACKER, HARLEY Primary Care Unavailable WHITNEY, CLARIBEL Attending Unavailable THACKER, HARLEY Referring Unavailable THACKER, HARLEY Primary Care Unavailable MI, YASHIRA M Attending Unavailable THACKER, HARLEY Referring Unavailable THACKER, HARLEY Primary Care Unavailable THACKER, HARLEY Attending Unavailable THACKER, HARLEY Referring Unavailable THACKER, HARLEY Primary Care Unavailable THACKER, HARLEY Attending Unavailable SHAMMO, NIKOLAS Referring Unavailable THACKER, HARLEY Primary Care Unavailable MI, YASHIRA M Attending Unavailable THACKER, HARLEY Referring Unavailable THACKER, HARLEY Primary Care Unavailable WHITNEY, CLARIBEL Attending Unavailable THACKER, HARLEY Referring Unavailable THACKER, HARLEY Primary Care Unavailable WHITNEY, CLARIBEL Attending Unavailable THACKER, HARLEY Referring Unavailable THACKER, HARLEY Primary Care Unavailable WHITNEY, CLARIBEL Attending Unavailable THACKER, HARLEY Referring Unavailable THACKER, HARLEY Primary Care Unavailable WHITNEY, CLARIBEL Attending Unavailable THACKER, HARLEY Referring Unavailable THACKER, HARLEY Primary Care Unavailable WHITNEY, CLARIBEL Attending Unavailable THACKER, HARLEY Referring Unavailable THACKER, HARLEY Primary Care Unavailable WHITNEY, CLARIBEL Attending Unavailable THACKER, HARLEY Referring Unavailable THACKER, HARLEY Primary Care Unavailable TREVOR JIMENEZ Attending Unavailable Allergies Allergy Classification Reported Allergen(s) Allergy Type Date of Onset Reaction(s) Facility (12 sources) Allopurinol; Translations: [ALLOPURINOL] Drug Allergy 05-12-20 20 [facility] (20 sources) Amoxicillin; Translations: [AMOXICILLIN] Drug Allergy 04-28-20 13 [facility] (20 sources) Cefaclor; Translations: [CEFACLOR] Drug Allergy 04-28-20 13 Hives, Other (See Comments), Rash, Unknown [facility] (20 sources) Ciprofloxacin; Translations: [CIPROFLOXACIN] Drug Allergy 09-03-19 20 [facility] (20 sources) Estrogens; Translations: [ESTROGENS] Drug Allergy 01-29-20 15 Other (See Comments), Unknown [facility] (20 sources) Penicillins; Translations: [PENICILLINS] Propensity to adverse reactions to drug 02-15-20 13 Hives, Rash [facility] (20 sources) Sulfonamides (Antibiotic); Translations: [SULFA (SULFONAMIDE ANTIBIOTICS)] Propensity to adverse reactions to drug 09-03-19 [facility] (5 sources) Sulfamethoxazole Drug Allergy 02-01-20 [facility] (9 sources) Trimethoprim; Translations: [TRIMETHOPRIM] Drug Allergy 02-01-20 [facility] (5 sources) DPT Allergy to substance 02-01-20 Redness of Skin [facility] (5 sources) surgical kory Allergy to substance 02-01-20 [facility] (5 sources) hormones Propensity to adverse reactions 02-01-20 will cause blood clots [facility] (2 sources) Amoxicillin Drug Allergy [facility] (2 sources) Cefaclor Drug Allergy [facility] (2 sources) Ciprofloxacin Drug Allergy 09-03-19 [facility] (2 sources) Sulfonamides (Antibiotic) Drug allergy (disorder) 09-03-19 [facility] (20 sources) Cephalosporins (Antibiotic); Translations: [CEPHALOSPORINS] Propensity to adverse reactions to drug 06-13-20 22 [facility] (20 sources) Sulfamethoxazole / Trimethoprim; Translations: [SULFAMETHOXAZOLE-T RIMETHOPRIM] Drug Allergy 06-16-20 16 Rash, Unknown [facility] (20 sources) Diphtheria,Pertussi s,Tetanus; Translations: [DIPHTHERIA,PERTUSS IS,TETANUS] Propensity to adverse reactions to drug 04-28-20 13 [facility] (20 sources) Other; Translations: [OTHER] Propensity to adverse reactions 02-29-20 16 Rash [facility] (20 sources) Pertussis Vaccines; Translations: [PERTUSSIS VACCINES] Propensity to adverse reactions to drug 04-24-20 18 Unknown [facility] (20 sources) Tetanus Vaccines And Toxoid; Translations: [TETANUS VACCINES AND TOXOID] Propensity to adverse reactions to drug 02-29-20 16 [facility] (4 sources) Tetanus And Diphtheria Toxoids; Translations: [TETANUS AND DIPHTHERIA TOXOIDS] Drug Allergy 06-25-20 23 Unknown [facility] Medications Current Medications Medication Drug Class(es) Dates [...] O Q6H 30 03April 10, 2022 Start: 04-10-2022 [...] MUST LAST 30 DAYS 0 07/20/2020 Active End: 11-28-2023 take 1 tablet by mouth once HYDROcodone-acetaminophen (NORCO) 5-325 mg per tablet Take 1 tablet by mouth. 0 Active Comment on above: Take 1 tablet by christina th. atomoxetine 60 mg oral capsule (20 sources) Norepinephrine Reuptake Inhibitor Start: End: take 60 mg by mouth once daily in the morning Atomoxetine Active 60 MG PO Every morning January 30, 2022 11:00pm Comment on above: Take 60 mg by mouth. baclofen 10 mg oral tablet (5 sources) gamma-Aminobutyric Acid-ergic Agonist Start: take 10 mg by mouth once daily at bedtime Baclofen Active 10 MG PO Daily at bedtime January 30, 2022 11:00pm cholecalciferol 0.025 mg oral tablet (9 sources) Vitamin D Start: take 1 tablet by mouth once daily Cholecalciferol (Vitamin D3) (Vitamin D3) 25 mcg (1,000 unit) Tablet Active 25 MCG PO Daily January 30, 2022 11:00pm Start: 08-02-2020 End: 08-02-2021 take 1 capsule by mouth once daily cholecalciferol, vitamin D3, 25 mcg (1,000 unit) capsule Take 1 (one) capsule (1,000 Units total) by mouth daily . 30 capsule 11 08/02/2020 08/02/2021 Active Start: 10-19-2017 Cholecalcifero l, Vitamin D3, 10,000 unit cap Start: 10-19-2017 take 1 capsule by mo [facility] every week Cholecalciferol, Vitamin D3, 10,000 unit cap 10,000 unit oral capsule once weekly 0 10/19/2017 Active Comment on above: 10,000 unit oral cap kyaw once weekly ferrous sulfate 325 mg oral tablet (20 sources) Start: 01-31-2022 End: 11-28-2023 take 1 tablet by mouth once daily Ferrous Sulfate (Iron) 325 mg (65 mg iron) Tablet Active 325 MG PO Daily January 30, 2022 11:00pm Start: 10-29-2019 take 1 tablet by christina twice daily ferrous sulfate 325 mg (65 mg iron) tablet Take 1 tablet by mouth twice daily. 60 tablet 5 10/29/2019 Active Comment on above: Take 1 tablet by christina twice daily. folic acid 2.5 mg / vitamin b12 2 mg / vitamin b6 25 mg oral tablet (4 sources) Vitamin B12 Start: 12-20-2023 End: 12-14-2024 take 1 tablet by mouth once daily folic acid-Vit B6-Vit B12 (FOLTX) 2.5-25-2 mg tab Indications: MTHFR mutation Take 1 tablet by mouth once daily. 90 tablet 3 12/20/2023 12/14/2024 Active Start: 10-28-2020 End: 12-20-2023 G80-hoympfkavdbx calcium-B6 (FOLTX) 2-1.13-25 mg tab Indications: Factor V Leiden (HCC) Take 1 tablet by mouth once daily. 90 tablet 3 10/28/2020 12/20/2023 Discontinued Start: 10-28-2020 E81-cabrbhavic te calcium-B6 (FOLTX) 2-1.13-25 mg tab Indications: Factor V Leiden (HCC) Take 1 tablet by mouth once daily. 90 tablet 3 10/28/2020 Active Comment on above: Take 1 tablet by christina th once daily. 0.8 ml fondaparinux sodium 12.5 mg/ml prefilled syringe (1 source) Factor Xa Inhibitor Start: 2023 End: 2023 inject 0.8 mL by subcutaneous injection every twenty-four hours fondaparinux (ARIXTRA) 10 mg/0.8 mL syrg Indications: Factor V Leiden (HCC) , MTHFR mutation , Primary hypercoagulable state (HCC) Inject 0.8 mL subcutaneously every 24 hours. 24 mL 3 12/20/2023 04/18/2024 Active Comment on above: Inject 0.8 mL subcut aneously every 24 hours. gabapentin 300 mg oral capsule (8 sources) Anti-epileptic Agent Start: 2021 take 600 mg by mouth once daily at bedtime Gabapentin Active 600 MG PO Daily at bedtime January 30, 2022 11:00pm End: 10-08-2023 gabapentin (NEURONTIN) 300 m g capsule Take 300 mg by mouth. 0 Active Comment on above: Take 300 mg by mouth . lamoTRIgine 25 mg oral tablet (18 sources) Mood Stabilizer, Anti-epileptic Agent Start: 04-13-2022 End: 10-18-2024 lamoTRIgine (LAMICTAL) 25 mg tablet Take 50 mg by mouth. 0 04/13/2022 10/18/2024 Active Start: 04-13-2022 End: 10-19-2023 take 1 tablet by mouth in the morning, then take 1 tablet by mouth at bedtime lamoTRIgine (LaMICtal) 25 mg tablet Take 1 tablet (25 mg total) by mouth in the morning and 1 tablet (25 mg total) before bedtime. 0 04/13/2022 10/19/2023 Discontinued (Dose adjustment) Comment on above: Take 50 mg by mouth. melatonin 10 mg oral tablet (5 sources) take 1 tablet by mouth in the morning melatonin 10 mg tablet Take 10 mg by mouth in the morning. 0 Active omeprazole 20 mg delayed release oral capsule (18 sources) Proton Pump Inhibitor Start: 2 End: take 20 mg by mouth once daily in the morning Omeprazole Active 20 MG PO Every morning January 30, 2022 11:00pm Comment on above: Take 20 mg by mouth once daily. rivaroxaban 20 mg oral tablet (5 sources) Factor Xa Inhibitor Start: 2 take 1 tablet by mouth once daily Rivaroxaban (Xarelto) 20 mg tablet Active 20 MG PO Daily January 30, 2022 11:00pm sucralfate 1000 mg oral tablet (9 sources) Aluminum Complex Start: 2 take 1 g by mouth twice daily Sucralfate Active 1 GM PO Twice daily January 30, 2022 11:00pm take 1 tablet by mouth four time s daily sucralfate (CARAFATE) 1 gram tablet Take 1 g by mouth 4 (four) times a day . 0 Active Comment on above: Take 1 g by mouth. Completed/Discontinued Medications Medication Drug Class(es) Dates Sig (Normalized) Sig (Original) acetaminophen 325 mg oral capsule (3 sources) acetaminophen (TYLENOL) 325 mg cap Take by mouth. 0 Active Comment on above: Take by mouth. apixaban 5 mg oral tablet (18 sources) Factor Xa Inhibitor Start: 12-29-2022 End: 12-20-2023 apixaban (ELIQUIS) 5 mg tab(s) Take 5 mg by mouth. 0 12/29/2022 12/20/2023 Discontinued Comment on above: Take 5 mg by mouth. ARIPiprazole 10 mg oral tablet (18 sources) Atypical Antipsychotic Start: 10-19-2023 End: 11-28-2023 take 1 tablet by mouth in the morning ARIPiprazole (ABILIFY) 10 mg tablet Take 1 tablet (10 mg total) by mouth in the morning. 30 tablet 1 10/19/2023 11/28/2023 Discontinued Start: 05-29-2022 End: 10-19-2023 ARIPiprazole (ABILIFY) 5 mg tablet Take 5 mg by mouth. 0 10/19/2023 Active Comment on above: Take 10 mg by mouth. Take 5 mg by mouth. 24 hr buPROPion hydrochloride 150 mg extended release oral tablet (3 sources) Aminoketone Start : 05-03 take 1 tablet by mouth every twenty-four hours buPROPion XL (WELLBUTRIN XL) 150 mg 24 hr tablet Take 150 mg by mouth. 0 05/03/2017 Active Comment on above: Take 150 mg by mouth . busPIRone hydrochloride 15 mg oral tablet (2 sources) Start : 04-16 busPIRone (BUSPAR) 15 mg tablet cetirizine hydrochloride 10 mg oral tablet (3 sources) Histamine-1 Receptor Antagonist Start : 01-20 cetirizine (ZYRTEC) 10 mg tablet Take 10 mg by mouth. 0 01/21/2016 Active Comment on above: Take 10 mg by mouth. cyclobenzaprine (2 sources) Muscle Relaxant Start : 02-01 cyclobenzaprine HCl (CYCLOBENZAPRINE ORAL) Take by mouth. 0 02/01/2023 Active Comment on above: Take by mouth. doxycycline hyclate 100 mg oral capsule (3 sources) Tetracycline-class Drug Start : 04-24 doxycycline hyclate (VIBRAMYCIN) 100 mg capsule Take 100 mg by mouth. 0 04/24/2018 Active Comment on above: Take 100 mg by mouth . DULoxetine 60 mg delayed release oral capsule (17 sources) Serotonin and Norepinephrine Reuptake Inhibitor Start : 05-29 End: 11-27 DULoxetine (CYMBALTA) 60 mg capsule Take 60 mg by mouth. 0 05/29/2022 Active Comment on above: Take 60 mg by mouth. escitalopram 5 mg oral tablet (3 sources) Serotonin Reuptake Inhibitor Start : 06-13 escitalopram oxalate (LEXAPRO) 5 mg tablet esomeprazole 20 mg granules for oral suspension (12 sources) Proton Pump Inhibitor Start : 11-13 Esomeprazole Magnesium 20 mg packet Take 40 mg by mouth. 0 11/14/2023 Active Comment on above: Take 40 mg by mouth. FLUoxetine 40 mg oral capsule (3 sources) Serotonin Reuptake Inhibitor Start : 06-16 FLUoxetine HCl (PROZAC) 40 mg capsule Comment on above: TAKE ONE CAPSULE BY MOUTH ONCE DAILY guaifenesin/pseudoephedrn e HCl (GUAIFENESIN 600/PSE 120 ORAL) (3 sources) guaifenesin/pseu doephedr ne HCl (GUAIFENESIN 600/PSE 120 ORAL) Take by mouth. 0 Active Comment on above: Take by mouth. hydroCHLOROthiazide 25 mg oral tablet (20 sources) Thiazide Diuretic Start : 10-11 End: 11-27 take 1 tablet by mouth once daily hydroCHLOROthiazide (HYDRODIURIL, ESIDRIX) 25 mg tablet Take 25 mg by mouth once daily. 0 10/11/2020 Active take 1 tablet by mouth once poncho y hydroCHLOROthiazide (HYDRODIURIL) 25 MG tablet Take 25 mg by mouth daily . 0 Active Comment on above: Take 25 mg by mouth once daily. hydrOXYzine pamoate 50 mg oral capsule (20 sources) Antihistamine Start: 05-27-2022 End: 11-28-2023 hydrOXYzine pamoate (VISTARIL) 50 mg capsule Take 50 mg by mouth. 0 05/27/2022 Active Start: 01-31-2022 take 25 mg by mouth four times daily Hydroxyzine Pamoate Active 25 MG PO Four times daily January 30, 2022 11:00pm Comment on above: Take 50 mg by mouth. 24 hr isosorbide mononitrate 30 mg extended release oral tablet (10 sources) Nitrate Vasodilator Start: 09-01-2020 isosorbide mononitrate ER (IMDUR) 30 mg 24 hr tablet Start: 09-01-2020 take 15 mg by mouth once daily in the morning Isosorbide Mononitrate Active 15 MG PO Every morning January 30, 2022 11:00pm Start: 06-01-2020 take 1 tablet by christina th once daily, then take 2 tablets by mouth every twenty-four hours isosorbide mononitrate (IMDUR) 30 MG 24 hr tablet Take 15 mg by mouth daily . 0 06/01/2020 Active End: 10-08-2023 take 0.5 tablet by mouth once daily isosorbide mononitrate (IMDUR) 30 mg 24 hr tablet Take 0.5 tablets (15 mg total) by mouth daily. 0 10/08/2023 Discontinued (Therapy completed) Comment on above: TAKE 1 2 (ONE HALF) TABLET BY MOUTH ONCE DAILY lansoprazole 3 mg/mL in sodium bicarbonate (1 source) Start: 11-14-19 End: 11-14-19 24 take 10 mL by mouth in the morning lansoprazole 3 mg/mL in sodium bicarbonate Take 10 mL (30 mg total) by mouth in the morning. 300 mL 2 11/14/2023 11/14/2023 Discontinued (Alternate therapy) levothyroxine sodium 0.05 mg oral tablet (3 sources) l-Thyroxine Start: 08-14-20 16 levothyroxine (SYNTHROID) 50 mcg tablet Comment on above: TAKE ONE TABLET BY M OUTH ONCE DAILY lidocaine hydrochloride 30 mg/ml topical cream (4 sources) Antiarrhythmic, Amide Local Anesthetic Start: 06-21-20 Lidocaine HCl 3 % crea Start: 06-21-2018 lidocaine HCL 3 % Crea APPLY TO THE AFFECTED AREA(S) BY TOPICAL ROUTE 2 TIMES PER DAY . 0 06/21/2018 Active 3 ml liraglutide 6 mg/ml pen injector (18 sources) GLP-1 Receptor Agonist Start: 10-13-2023 End: 11-28-2023 liraglutide (VICTOZA 2-ALFIE) 0.6 mg/0.1 mL (18 mg/3 mL) pen injector Indications: History of insulin resistance , Prediabetes Inject 0.1 mL (0.6 mg total) under the skin in the morning. 3 mL 1 10/13/2023 11/28/2023 Discontinued Start: 03-14-2023 liraglutide (V ICTOZA) 0.6 mg/ 0.1 ml subcutaneous pen injector Inject 0.6 mg subcutaneously. 0 03/14/2023 Active Start: 03-14-2023 End: 10-13-2023 liraglutide (VICTOZA 2-ALFIE) 0.6 mg/0.1 mL (18 mg/3 mL) pen injector Inject 0.3 mL (1.8 mg total) under the skin in the morning. 0 03/14/2023 10/13/2023 Discontinued (Reorder) Comment on above: Inject 0.6 mg subcut aneously. lisinopril 10 mg oral tablet (3 sources) Angiotensin Converting Enzyme Inhibitor Start: lisinopril (ZESTRIL, PRINIVIL) 10 mg tablet loratadine 10 mg oral tablet (3 sources) Start: loratadine (CLARITIN) 10 mg tablet metoclopramide 10 mg oral tablet (1 source) Dopamine-2 Receptor Antagonist Start: metoclopramide HCl (REGLAN) 10 mg tablet metoprolol tartrate 50 mg oral tablet (20 sources) beta-Adrenergic Senthil Start: End: take 1 tablet by mouth in the morning, then take 1 tablet by mouth at bedtime metoprolol tartrate (LOPRESSOR) 50 mg tablet Indications: Essential hypertension Take 1 tablet (50 mg total) by mouth in the morning and 1 tablet (50 mg total) before bedtime. 180 tablet 1 10/09/2022 11/28/2023 Discontinued Start: 01-31-2022 take 25 mg by mouth twice poncho y Metoprolol Tartrate Active 25 MG PO Twice daily January 30, 2022 11:00pm Start: 07-31-2016 metoprolol tar trate, short acting, (LOPRESSOR) 25 mg tablet Take 12.5 mg by mouth. 0 07/31/2016 Active Start: 07-31-2016 take 1 tablet by christina th twice daily metoprolol tartrate (LOPRESSOR) 25 MG tablet Take 25 mg by mouth 2 (two) times a day . 0 07/31/2016 Active Comment on above: Take 12.5 mg by mout h. mupirocin 0.02 mg/mg topical ointment (3 sources) RNA Synthetase Inhibitor Antibacterial Start: 03-14-2017 mupirocin (BACTROBAN) 2 % ointment Apply 1 application to affected area. 0 03/14/2017 Active Comment on above: Apply 1 application to affected area. prazosin 2 mg oral capsule (18 sources) alpha-Adrenergic Senthil Start: 10-19-2023 End: 11-28-2023 prazosin (MINIPRESS) 2 mg cap Take 2 mg by mouth. 0 10/19/2023 Active Start: 05-29-2022 End: 10-19-2023 take 1 capsule by mouth once daily at bedtime prazosin (MINIPRESS) 1 mg capsule Take 1 capsule (1 mg total) by mouth once daily at bedtime. 0 05/29/2022 10/19/2023 Discontinued (Dose adjustment) Comment on above: Take 2 mg by mouth. rimegepant 75 mg disintegrating oral tablet (9 sources) Start: 04-04-2022 End: 11-07-2023 NURTEC ODT 75 mg disintegrating tablet spironolactone 25 mg oral tablet (20 sources) Aldosterone Antagonist Start: 05-12-2020 End: 11-28-2023 spironolactone (ALDACTONE) 25 mg tablet SUMAtriptan 50 mg oral tablet (1 source) Serotonin-1b and Serotonin-1d Receptor Agonist Start: 03-24-2022 End: 10-13-2023 SUMAtriptan (IMITREX) 50 mg tablet Take 1 tablet (50 mg total) by mouth as needed for migraine. 0 03/24/2022 10/13/2023 Discontinued (Therapy completed) tetracycline hydrochloride 500 mg oral capsule (3 sources) Tetracycline-class Antimicrobial Start: 09-29-2020 tetracycline (SUMYCIN) 500 mg cap Comment on above: TAKE 1 CAPSULE BY [facility] EVERY 12 HOURS ON AN EMPTY STOMACH triamcinolone acetonide 5 mg/ml topical cream (3 sources) Corticosteroid Start: 04-03-2017 triamcinolone acetonide (KENALOG) 0.5 % cream Problems Active Problems Problem Classification Problem Date Documented Date Episodic/Chronic Anxiety disorders (20 sources) Anxiety disorder, unspecified; Translations: [Mixed anxiety and depressive disorder] Onset: 015 03-14-2017 Chronic Attention-deficit, conduct, and disruptive behavior disorders (2 sources) Attention deficit hyperactivity disorder, combined type; Translations: [Attention-deficit hyperactivity disorder, combined type] 10-19-2023 Chronic Attention-deficit, conduct, and disruptive behavior disorders (1 source) Attention-deficit hyperactivity disorder, combined type; Translations: [Attention-deficit hyperactivity disorder, combined type] Onset: Chronic Coagulation and hemorrhagic disorders (20 sources) Activated protein C resistance; Translations: [Heterozygous Factor V Leiden mutation] Onset: 013 Resolve d: 023 10-08-2023 Chronic Complications of surgical procedures or medical care (19 sources) Postprocedural hypothyroidism; Translations: [History of subtotal thyroidectomy] Onset: 015 01-13-2022 Chronic Deficiency and other anemia (2 sources) Iron deficiency anemia; Translations: [Iron deficiency anemia, unspecified] 11-29-2023 Episodic Diabetes mellitus without complication (20 sources) Diabetes mellitus; Translations: [Type 2 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 complications] Onset: 022 01-13-2022 Chronic Esophageal disorders (20 sources) Gastro-esophageal reflux disease without esophagitis; Translations: [Gastroesophageal reflux disease] Onset: 017 10-08-2023 Chronic Essential hypertension (20 sources) Essential (primary) hypertension; Translations: [Essential hypertension] Onset: 07-08-0411-24-2022 Chronic Fluid and electrolyte disorders (1 source) Hypokalemia; Translations: [HYPOKALEMIA] Onset: Episodic Gastrointestinal hemorrhage (1 source) Gastrointestinal hemorrhage; Translations: [Gastrointestinal hemorrhage, unspecified] 11-29-2023 Episodic Headache; including migraine (2 sources) Migraine without aura, not refractory ; Translations: [Migraine without aura, not intractable, without status migrainosus] Onset: 10-08-2023 Chronic Headache; including migraine (4 sources) Headache; including migraine; Translations: [HEADACHE UNSPECIFIED] Onset: Heart valve disorders (1 source) Nonrheumatic mitral (valve) insufficiency; Translations: [NONRHEUMATIC MITRAL INSUFFICIENCY] Onset: Chronic Immunizations and screening for infectious disease (2 sources) Encounter for screening for other viral diseases; Translations: [Encounter for screening for human immunodeficiency virus [HIV]] Onset: Episodic Mood disorders (20 sources) Bipolar I disorder; Translations: [Bipolar disorder, unspecified] Onset: 10-08-2023 Chronic Nutritional deficiencies (20 sources) Vitamin D deficiency; Translations: [Vitamin D deficiency, unspecified] Onset: 017 08-02-2020 Chronic Other aftercare (1 source) Other half-way (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 therapy; Translations: [OTH RETREAD BUILDER CURRENT DRUG THERAPY] Onset: Episodic Other aftercare (1 source) 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; Translations: [DETENTION CURRNT USE ANTICOAGULANTS] Onset: Episodic Other and ill-defined heart disease (1 source) Mass of thoracic structure; Translations: [Other ill-defined heart diseases] 11-14-2023 Chronic Other and ill-defined heart disease (2 sources) Other ill-defined heart diseases; Translations: [Other ill-defined heart diseases] Onset: Chronic Other diseases of veins and lymphatics (1 source) Venous insufficiency (chronic) (peripheral); Translations: [VENOUS INSUFF CHRONIC PERIPHERAL] Onset: Episodic Other inflammatory condition of skin (1 source) Lupus erythematosus; Translations: [Lupus (HCC)] Chronic Other lower respiratory disease (1 source) Personal history of pneumonia (recurrent); Translations: [PERSONAL HX OF PNEUMONIA RECURRENT] Onset: Episodic Other lower respiratory disease (1 source) Dyspnea; Translations: [Shortness of breath] 11-14-2023 Episodic Other nervous system disorders (5 sources) Chronic pain syndrome; Translations: [CHRONIC PAIN SYNDROME] Onset: Chronic Other nervous system disorders (1 source) Other chronic pain; Translations: [OTHER CHRONIC PAIN] Onset: Chronic Other nervous system disorders (18 sources) Chronic pain; Translations: [Other chronic pain] Onset: 021 01-13-2022 Chronic Other nervous system disorders (5 sources) Acute postoperative pain; Translations: [Other acute postprocedural pain] 02-13-2022 Episodic Other nutritional; endocrine; and metabolic disorders (20 sources) Body mass index 40+ - severely obese; Translations: [Morbid (severe) obesity due to excess calories] Onset: 015 08-02-2020 Chronic Other nutritional; endocrine; and metabolic disorders (3 sources) Methylenetetrahydrofolate reductase deficiency; Translations: [MTHFR DEFICIENCY] Onset: Chronic Other nutritional; endocrine; and metabolic disorders (20 sources) Methylene THF reductase deficiency AND homocystinuria; Translations: [Methylenetetrahydrofolate reductase deficiency] Onset: 017 10-08-2023 Chronic Other nutritional; endocrine; and metabolic disorders (19 sources) Insulin resistance; Translations: [Insulin resistance] Onset: 014 10-08-2023 Chronic Other nutritional; endocrine; and metabolic disorders (18 sources) Metabolic disease; Translations: [Metabolic disorder, unspecified] Onset: 014 03-14-2017 Chronic Other nutritional; endocrine; and metabolic disorders (2 sources) Morbid obesity; Translations: [Morbid (severe) obesity due to excess calories] 11-07-2023 Chronic Other nutritional; endocrine; and metabolic disorders (2 sources) Homocystinuria; Translations: [Homocystinuria] Onset: Chronic Other nutritional; endocrine; and metabolic disorders (1 source) Body mass index (BMI) 60.0-69.9, adult; Translations: [Body mass index (BMI) 60.0-69.9, adult] Onset: Chronic Other nutritional; endocrine; and metabolic disorders (1 source) Morbid (severe) obesity due to excess calories; Translations: [Morbid (severe) obesity due to excess calories] Onset: Chronic Other nutritional; endocrine; and metabolic disorders (2 sources) H/O: endocrine disorder; Translations: [Personal history of other endocrine, nutritional and metabolic disease] 10-08-2023 Episodic Other screening for suspected conditions (not mental disorders or infectious disease) (10 sources) Encounter for screening for cardiovascular disorders; Translations: [Encounter for screening for nutritional disorder] Onset: 11-13-2023 Episodic Other skin disorders (20 sources) Hidradenitis suppurativa; Translations: [Hidradenitis suppurativa] Onset: 014 08-02-2020 Episodic Residual codes; unclassified (20 sources) Obstructive sleep apnea syndrome; Translations: [Obstructive sleep apnea (adult) (pediatric)] Onset: 020 08-02-2020 Chronic Residual codes; unclassified (1 source) Sleep apnea, unspecified; Translations: [SLEEP APNEA UNSPECIFIED] Onset: Chronic Residual codes; unclassified (1 source) Acquired absence of other specified parts of digestive tract; Translations: [ACQ ABSENCE OTH PART DIGESTV TRACT] Onset: Episodic Residual codes; unclassified (5 sources) Other amnesia; Translations: [OTHER AMNESIA] Onset: Episodic Residual codes; unclassified (20 sources) Hereditary disorder of endocrine system; Translations: [Genetic susceptibility to other disease] Onset: Resolve d: 017 03-15-2017 Episodic Screening and history of mental health and substance abuse codes (1 source) Personal history of nicotine dependence; Translations: [PERSONAL HISTORY OF NICOTINE DEPEND] Onset: Episodic Spondylosis; intervertebral disc disorders; other back problems (19 sources) Other spondylosis with radiculopathy, lumbar region; Translations: [Spondylosis] Onset: 01-13-2022 Chronic Spondylosis; intervertebral disc disorders; other back problems (14 sources) Cervicalgia; Translations: [Radiculopathy, cervical region] Onset: Episodic Thyroid disorders (20 sources) Autoimmune thyroiditis; Translations: [Autoimmune thyroiditis] Onset: 014 Resolve d: 017 03-14-2017 Chronic Unclassified (1 source) G89.18 - Other acute postprocedural pain; Translations: [G89.18 - Other acute postprocedural pain] Onset: 022 Unclassified (1 source) LOW BACK PAIN, UNSPECIFIED; Translations: [LOW BACK PAIN, UNSPECIFIED] Onset: 023 Unclassified (1 source) gastroesophageal reflux, nausea, vomiting Onset: 024 Unclassified (1 source) wellness Onset: 024 Unclassified (1 source) Pre-op Exam Onset: 024 Unclassified (1 source) New Patient Onset: 024 Unclassified (1 source) Insulin resistance, unspecified; Translations: [Insulin resistance, unspecified] Onset: 022 Unclassified (1 source) Establish Care Onset: 024 Past or Other Problems Problem Classification Problem Date Documented Da te Episodic/Chronic Administrative/social admission (18 sources) Referral statuses; Translations: [Persons encountering health services in other specified circumstances] Onset: 08-23-2017 08-23-2017 Episodic Cardiac dysrhythmias (20 sources) Tachycardia, unspecified; Translations: [Tachycardia] Onset: 04-09-2015 Episodic Diabetes mellitus without complication (19 sources) Prediabetes; Translations: [Prediabetes] Onset: 01-21-2016 10-08-2023 Episodic Inflammatory diseases of female pelvic organs (18 sources) Bacterial vaginosis; Translations: [Acute vaginitis] Onset: 07-11-2017 07-11-2017 Episodic Malaise and fatigue (20 sources) Fatigue; Translations: [Other fatigue] Onset: 03-14-2017 08-02-2020 Episodic Mood disorders (19 sources) Mood disorders; Translations: [DEPRESSION UNSPECIFIED] Onset: 09-28-2022 10-08-2023 Nausea and vomiting (4 sources) Nausea and vomiting; Translations: [Nausea with vomiting, unspecified] Onset: 11-07-2023 10-08-2023 Episodic Nonspecific chest pain (3 sources) Chest discomfort; Translations: [Other chest pain] Onset: 11-14-2023 11-14-2023 Episodic Other female genital disorders (18 sources) Vaginal odor; Translations: [Other specified noninflammatory disorders of vagina] Onset: 07-11-2017 07-11-2017 Episodic Other gastrointestinal disorders (19 sources) Diarrhea; Translations: [Diarrhea, unspecified] Onset: 02-15-2021 01-13-2022 Episodic Other gastrointestinal disorders (2 sources) Diarrhea, unspecified; Translations: [Diarrhea, unspecified] Onset: 01-13-2022 Episodic Other gastrointestinal disorders (1 source) Heartburn Onset: 11-07-2023 Episodic Other lower respiratory disease (2 sources) Shortness of breath; Translations: [Shortness of breath] Onset: 11-14-2023 Episodic Other nervous system disorders (1 source) Other acute postprocedural pain; Translations: [Other acute postprocedural pain] Onset: 04-10-2022 Episodic Other non-traumatic joint disorders (5 sources) Pain in right hip; Translations: [PAIN IN RIGHT HIP] Onset: 06-05-2022 Episodic Other non-traumatic joint disorders (1 source) Pain in left hip; Translations: [PAIN IN LEFT HIP] Onset: 03-09-2022 Episodic Other nutritional; endocrine; and metabolic disorders (18 sources) History of diabetes mellitus type 2; Translations: [Personal history of other endocrine, nutritional and metabolic disease] Onset: 03-15-2017 03-15-2017 Episodic Other nutritional; endocrine; and metabolic disorders (18 sources) H/O: thyroid disorder; Translations: [Personal history of other endocrine, nutritional and metabolic disease] Onset: 09-13-2017 09-13-2017 Episodic Other nutritional; endocrine; and metabolic disorders (1 source) Personal history of other endocrine, nutritional and metabolic disease; Translations: [Personal history of other endocrine, nutritional and metabolic disease] Onset: 10-08-2023 Episodic Other skin disorders (2 sources) Hidradenitis suppurativa; Translations: [Hidradenitis suppurativa] Onset: 01-13-2022 Episodic Other upper respiratory disease (18 sources) Hoarse; Translations: [Dysphonia] Onset: 09-25-2018 09-25-2018 Episodic Other upper respiratory infections (20 sources) Sore throat symptom; Translations: [Acute pharyngitis, unspecified] Onset: 07-11-2017 07-11-2017 Episodic Otitis media and related conditions (18 sources) Otitis media; Translations: [Unspecified nonsuppurative otitis media, bilateral] Onset: 07-11-2017 07-11-2017 Episodic Phlebitis; thrombophlebitis and thromboembolism (20 sources) H/O: Deep vein thrombosis; Translations: [Personal history of other venous thrombosis and embolism] Onset: 01-04-2023 10-08-2023 Episodic Pneumonia (except that caused by tuberculosis or sexually transmitted disease) (20 sources) Community acquired pneumonia; Translations: [Pneumonia, unspecified organism] Onset: 11-23-2022 11-23-2022 Episodic Pulmonary heart disease (20 sources) Personal history of pulmonary embolism; Translations: [Pulmonary thromboembolism] Onset: Resolved: 01-04-2023 10-08-2023 Episodic Residual codes; unclassified (1 source) Personal history of other specified conditions; Translations: [Personal history of other specified conditions] Onset: 10-08-2023 Episodic Skin and subcutaneous tissue infections (20 sources) Abscess of groin; Translations: [Cutaneous abscess of groin] Onset: 03-14-2017 Resolved: 05-03-2017 05-03-2017 Episodic Urinary tract infections (18 sources) Acute cystitis; Translations: [Acute cystitis without hematuria] Onset: 04-01-2017 Resolved: 05-03-2017 05-03-2017 Episodic Viral infection (18 sources) Disease caused by 2019-nCoV; Translations: [COVID-19] Onset: 07-01-2021 01-13-2022 Episodic Results Test Name Value Interpretation Reference Range Facility BLOOD TB SCREENon 12-20-2023 M. tuberculosis tuberculin stim IFN-g Ql (Bld) Negative Normal [facility] Comment on above: Order Comment: Speci men Type: BLOOD SPECIMEN Ordering Facility: [facility] Address: [address] [place] [id number] Performed By: #### 2 276-4, 2132-9, 71346-0, 2284-8 #### [facility] CLIA [id number] [address] [place] [address] [place] MITOGEN MINUS NIL >9.99 Normal >=0.50 [facility] Comment on above: Order Comment: Speci men Type: BLOOD SPECIMEN Ordering Facility: [facility] Address: [address] [place] [address] Performed By: #### 2 276-4, 2131-9, 53606-0, 2283-8 #### [facility] CLIA [id number] [address] [place] [address] [place] TB GAMMA INTERPRETATION Infection with M. tuberculosis complex is unlikely. If latent tuberculosis infection is highly suspected, a negative result does not rule out the infection. Specimens from immunocompromised patients and those <5 years of age may show false negative results. In case of a contact investigation, please repeat 8-12 weeks after a known exposure. Normal [facility] Comment on above: Order Comment: Brodyi gilberto Type: BLOOD SPECIMEN Ordering Facility: [facility] Address: [address] [place] [address] Performed By: #### 2 276-4, 2131-9, 13136-7, 2283-8 #### [facility] CLIA [id number] [address] [place] [address] [place] TB NIL 0.01 IU/mL Normal <=8.00 [facility] Comment on above: Order Comment: Speci men Type: BLOOD SPECIMEN Ordering Facility: [facility] Address: [address] [place] [address] Performed By: #### 2 276-4, 2131-9, 07148-7, 2283-8 #### [facility] CLIA [id number] [address] [place] [address] [place] TB1 AG MINUS NIL 0.00 IU/mL Normal <0.35 [facility] Comment on above: Order Comment: Speci men Type: BLOOD SPECIMEN Ordering Facility: [facility] Address: [address] [place] [address] Performed By: #### 2 276-4, 2132-9, 02233-0, 8 #### [facility] CLIA [id number] [address] [place] [address] [place] TB2 AG MINUS NIL 0.00 IU/mL Normal <0.35 [facility] Comment on above: Order Comment: Speci men Type: BLOOD SPECIMEN Ordering Facility: [facility] Address: [address] [place] [address] Performed By: #### 2 276-4, 2131-9, 55217-4, 8 #### [facility] CLIA [id number] [address] [place] [address] [place] CBC W Auto Differential pane l (Bld)on 12-20-2023 Basophils (Bld) [#/Vol] 0.05 10*3/uL Normal <0.11 [facility] Comment on above: Order Comment: Speci men Type: BLOOD SPECIMEN Ordering Facility: [facility] Address: [address] [place] [address] Performed By: #### 2 276-4, 9, 04327-3, 8 #### [facility] CLIA [id number] [address] [place] [address] [place] Basophils/100 WBC (Bld) 0.5 % Normal [facility] Comment on above: Order Comment: Speci men Type: BLOOD SPECIMEN Ordering Facility: [facility] Address: [address] [place] [address] Performed By: #### 2 276-4, 2131-9, 30102-3, 8 #### [facility] CLIA [id number] [address] [place] [address] [place] Differential cell count method Nom (Bld) Auto Normal [facility] Comment on above: Order Comment: Speci men Type: BLOOD SPECIMEN Ordering Facility: [facility] Address: [address] [place] [address] Performed By: #### 2 276-4, 2131-9, 17970-1, 2284-8 #### [facility] CLIA [id number] [address] [place] [address] [place] Eosinophils (Bld) [#/Vol] 0.26 10*3/uL Normal <0.46 [facility] Comment on above: Order Comment: Speci men Type: BLOOD SPECIMEN Ordering Facility: [facility] Address: [address] [place] [address] Performed By: #### 2 276-4, 2131-9, 29041-4, 2284-8 #### [facility] CLIA [id number] [address] [place] [address] [place] Eosinophils/100 WBC (Bld) 2.6 % Normal [facility] Comment on above: Order Comment: Speci men Type: BLOOD SPECIMEN Ordering Facility: [facility] Address: [address] [place] [address] Performed By: #### 2 276-4, 2131-9, 69064-1, 2284-8 #### [facility] CLIA [id number] [address] [place] [address] [place] Erythrocyte distribution width (RBC) [Ratio] 14.6 % Normal 11.5-15.0 [facility] Comment on above: Order Comment: Speci men Type: BLOOD SPECIMEN Ordering Facility: [facility] Address: [address] [place] [address] Performed By: #### 2 276-4, 2131-9, 60034-2, 2284-8 #### [facility] CLIA [id number] [address] [place] [address] [place] Hematocrit (Bld) [Volume fraction] 40.9 % Normal 36.0-46.0 [facility] Comment on above: Order Comment: Speci men Type: BLOOD SPECIMEN Ordering Facility: [facility] Address: [address] [place] [address] Performed By: #### 2 276-4, 2131-9, 47436-6, 2284-8 #### [facility] CLIA [id number] [address] [place] [address] [place] Hemoglobin (Bld) [Mass/Vol] 13.1 g/dL Normal 11.5-15.5 [facility] Comment on above: Order Comment: Speci men Type: BLOOD SPECIMEN Ordering Facility: [facility] Address: [address] [place] [address] Performed By: #### 2 276-4, 2131-9, 42016-3, 2284-8 #### [facility] CLIA [id number] [address] [place] [address] [place] Immature granulocytes (Bld) [#/Vol] 0.04 10*3/uL Normal <0.10 [facility] Comment on above: Order Comment: Speci men Type: BLOOD SPECIMEN Ordering Facility: [facility] Address: [address] [place] [address] Performed By: #### 2 276-4, 2131-9, 48639-6, 4-8 #### [facility] CLIA [id number] [address] [place] [address] [place] Immature granulocytes/100 WBC (Bld) 0.4 % Normal [facility] Comment on above: Order Comment: Speci men Type: BLOOD SPECIMEN Ordering Facility: [facility] Address: [address] [place] [address] Performed By: #### 2 276-4, 2131-9, 54475-1, 2284-8 #### [facility] CLIA [id number] [address] [place] [address] [place] Lymphocytes (Bld) [#/Vol] 1.75 10*3/uL Normal 1.00-4.00 [facility] Comment on above: Order Comment: Speci men Type: BLOOD SPECIMEN Ordering Facility: [facility] Address: [address] [place] [address] Performed By: #### 2 276-4, 2131-9, 31822-4, 2283-8 #### [facility] CLIA [id number] [address] [place] [address] [place] Lymphocytes/100 WBC (Bld) 17.4 % Normal [facility] Comment on above: Order Comment: Speci men Type: BLOOD SPECIMEN Ordering Facility: [facility] Address: [address] [place] [address] Performed By: #### 2 276-4, 2131-9, 08354-8, 2283-8 #### [facility] CLIA [id number] [address] [place] [address] [place] MCH (RBC) [Entitic mass] 25.6 pg Low 26.0-34.0 [facility] Comment on above: Order Comment: Speci men Type: BLOOD SPECIMEN Ordering Facility: [facility] Address: [address] [place] [address] Performed By: #### 2 276-4, 2131-9, 97884-0, 2283-8 #### [facility] CLIA [id number] [address] [place] [address] [place] MCHC (RBC) [Mass/Vol] 32.0 g/dL Normal 30.5-36.0 [facility] Comment on above: Order Comment: Speci men Type: BLOOD SPECIMEN Ordering Facility: [facility] Address: [address] [place] [address] Performed By: #### 2 276-4, 2131-9, 17971-2, 2283-8 #### [facility] CLIA [id number] [address] [place] [address] [place] MCV (RBC) [Entitic vol] 79.9 fL Low 80.0-100.0 [facility] Comment on above: Order Comment: Speci men Type: BLOOD SPECIMEN Ordering Facility: [facility] Address: [address] [place], [place] [id number] Performed By: #### 2 276-4, 2131-9, 13929-5, 228-8 #### [facility] CLIA [id number] [address] [place], [place] [id number] [place] Monocytes (Bld) [#/Vol] 0.57 10*3/uL Normal <0.87 [facility] Comment on above: Order Comment: Speci men Type: BLOOD SPECIMEN Ordering Facility: [facility] Address: [address] [place] [address] Performed By: #### 2 276-4, 2131-9, 13448-5, 2283-8 #### [facility] CLIA [id number] [address] [place] [address] [place] Monocytes/100 WBC (Bld) 5.7 % Normal [facility] Comment on above: Order Comment: Speci men Type: BLOOD SPECIMEN Ordering Facility: [facility] Address: [address] [place] [address] Performed By: #### 2 276-4, 2131-9, 29241-6, 2283-8 #### [facility] CLIA [id number] [address] [place] [address] [place] Neutrophils (Bld) [#/Vol] 7.41 10*3/uL Normal 1.45-7.50 [facility] Comment on above: Order Comment: Speci men Type: BLOOD SPECIMEN Ordering Facility: [facility] Address: [address] [place] [address] Performed By: #### 2 276-4, 2131-9, 07450-9, 2283-8 #### [facility] CLIA [id number] [address] [place] [address] [place] Neutrophils/100 WBC (Bld) 73.4 % Normal [facility] Comment on above: Order Comment: Speci men Type: BLOOD SPECIMEN Ordering Facility: [facility] Address: [address] [place] [address] Performed By: #### 2 276-4, 2131-9, 30694-8, 2284-8 #### [facility] CLIA [id number] [address] [place] [address] [place] Nucleated RBC (Bld) [#/Vol] 10*3/uL Normal <0.01 [facility] Comment on above: Order Comment: Speci men Type: BLOOD SPECIMEN Ordering Facility: [facility] Address: [address] [place] [address] Performed By: #### 2 276-4, 2131-9, 31816-3, 2283-8 #### [facility] CLIA [id number] [address] [place] [address] [place] Nucleated RBC/100 WBC (Bld) [Ratio] 0.0 /100 WBC Normal [facility] Comment on above: Order Comment: Speci men Type: BLOOD SPECIMEN Ordering Facility: [facility] Address: [address] [place] [address] Performed By: #### 2 276-4, 2131-9, 28894-0, 2283-8 #### [facility] CLIA [id number] [address] [place] [address] [place] Platelet mean volume (Bld) [Entitic vol] 8.8 fL Low 9.0-12.7 [facility] Comment on above: Order Comment: Speci men Type: BLOOD SPECIMEN Ordering Facility: [facility] Address: [address] [place] [address] Performed By: #### 2 276-4, 2131-9, 70436-8, 2283-8 #### [facility] CLIA [id number] [address] [place] [address] [place] Platelets (Bld) [#/Vol] 327 10*3/uL Normal 150-400 [facility] Comment on above: Order Comment: Speci men Type: BLOOD SPECIMEN Ordering Facility: [facility] Address: [address] [place] [address] Performed By: #### 2 276-4, 2131-9, 68446-7, 2284-8 #### [facility] CLIA [id number] [address] [place] [address] [place] RBC (Bld) [#/Vol] 5.12 10*6/uL Normal 3.90-5.20 [facility] Comment on above: Order Comment: Brodyi gilberto Type: BLOOD SPECIMEN Ordering Facility: [facility] Address: [address] [place] [address] Performed By: #### 2 276-4, 2131-9, 00525-2, 2284-8 #### [facility] CLIA [id number] [address] [place] [address] [place] WBC (Bld) [#/Vol] 10.08 10*3/uL Normal 3.70-11.00 [facility] Comment on above: Order Comment: Nima macias Type: BLOOD SPECIMEN Ordering Facility: [facility] Address: [address] [place] [address] Performed By: #### 2 276-4, 2131-9, 70418-3, 2284-8 #### [facility] CLIA [id number] [address] [place] [address] [place] CNOVSPon 12-20-2023 CNOVSP Visit (SP) Office (HEMASA) ---- MARGARET PRIETO ([id number]) 1990 F Date Time Provider Department 12/20/23 10:00 AM ABHYANKAR, SHARIF HEMASA During your visit today, we recorded the following information about you: Temperature Pulse Respiration Blood pressure 97.7 degrees 98/minute 16/minute 154/90 Weight 171.1 kg Sharif Joseph MD 12/22/2023 6:44 AM Signed NAME: Margaret Prieto CLINIC NO.: [id number] DATE OF SERVICE: December 20, 2023 (Jonelle) Some elements in this clinic note that are critical to medical decision making have been carefully reviewed and included from a prior clinic note dated: November 29, 2023 (Jonelle) Referring Provider: Harley Thacker APRN-UNHAIRING MACHINE OPERATOR Additional Clinicians involved in Margaret Prieto's care: DIAGNOSIS: Hypercoag state. ASSESSMENT: Pulmonary embolus - semi-provoked - few weeks after cholecystectomy in a period. Very strong family history with Leiden factor V heterozygosity. Stopped her blood thinner in September 2017 Recommended lifelong in July 2018. Patient continued through summer and stopped secondary to multiple other issues including multiple medications and bleeding complications of hidradenitis and personal issues Considering severe obesity and hidradenitis which had been very limiting to her quality of life I had offered her referral to consider for gastric bypass surgery. Likely iron deficiency based on microcytosis. Her ferrous sulfate 325 mg by mouth every other day. In late November 2023, she returned more than 3 years later to re-establish care. She had been off of her anticoagulation despite prior recommendations for life-long anticoagulation and also did not improve any mitigating factors (weight and sleep apnea). However, she is being investigated for GI loss of blood and had endoscopy completed recently (December 2023), which was benign. She is therefore, safe to resume anticoagulation with Arixtra. PLAN: RTC in 3 months Labs same day Start Arixtra 10mg daily Resume Foltx Resume iron tablets ___- HPI: CASE HISTORY: Reverse Chronological Order 12/10/2023 - Endoscopy: Antrum biopsy: - Fragments of gastric mucosa with no significant histopathologic abnormality Distal esophagus biopsy: - Fragment of gastric mucosa with reactive changes suggestive of mild chronic reflux-related changes - Squamous mucosa, dysplasia, or intestinal metaplasia is not identified 2023 - CTA Chest: Normal CTA chest. Resolution of the bilateral lower lobe pulmonary emboli described on the previous examination dated 11/23/2022. 11/23/2022 - CTA Chest: Almost complete resolution of right lower lobe and left lower lobe subsegmental pulmonary emboli since 11/11/2022. There is no new pulmonary embolus. Interval development of large area of airspace disease with air bronchograms in the right lower lobe may be pulmonary infarct. Due to development of small right hilar lymph nodes, an infectious etiology, such as pneumonia, cannot be excluded. Please correlate clinically 11/13/2022 - ECHO: LVEF: 60-65% 11/11/2022 - CTA Chest: Acute pulmonary emboli as described. No right heart strain. Small left pleural effusion. 11/11/2022-11/19/19 - Admitted for pulmonary embolism 10/30/2021 - [facility] RIGHT: NO EVIDENCE of deep or superficial vein thrombosis of the lower extremity. LEFT: ACUTE deep tibioperoneal vein thrombosis (DVT). NO EVIDENCE of superficial vein thrombosis of the lower extremity. 08/29/2021 - [facility] BILATERAL: NO EVIDENCE of deep vein thrombosis (DVT) of the lower extremity. 2014 - Pulmonary embolism Updated Visit, December 20, 2023: Margaret returns today. EGD on 12/09 revealed benign findings. She endorses abnormal coughing, so will be following with pulmonology. She will be starting on Cosentyx for hidradenitis. Stop Eliquis, start Arixtra. I would also like her to resume Foltx and iron tablets. Updated Visit, November 29, 2023: Reestablish Care Margaret Prieto presents today to reestablish her care. She is a 33 year old female who has a prior history of heterozygous Factor V Leiden mutation and MTHFR mutation. She denies current clots. She has been having difficulty taking oral medications due to a burning sensation so she is not currently taking a blood thinner. She would like to start on an anticoagulation injection, instead of an oral medication. Her ankles are swollen bilaterally. Reports a having a headache for about a week - likely related to her blood pressure. She has not been using her CPAP due to claustrophobia. She also reports a worsening cough. From my perspective she is safe to proceed with scopes. After scopes, we will consider anticoagulation injecti (more content not included)... Normal [facility] Comprehensive metabolic 2000 panelon 12-20-2023 Albumin [Mass/Vol] 3.7 g/dL Low 3.9-4.9 [facility] Comment on above: Order Comment: Speci men Type: BLOOD SPECIMEN Ordering Facility: [facility] Address: [address] [place] [address] Performed By: #### 2 276-4, 2131-9, 54382-2, 2283-8 #### [facility] CLIA [id number] [address] [place] [address] [place] ALP [Catalytic activity/Vol] 85 U/L Normal 34-123 [facility] Comment on above: Order Comment: Speci men Type: BLOOD SPECIMEN Ordering Facility: [facility] Address: [address] [place] [address] Performed By: #### 2 276-4, 2131-9, 63594-0, 2283-8 #### [facility] CLIA [id number] [address] [place] [address] [place] ALT [Catalytic activity/Vol] 30 U/L Normal 7-38 [facility] Comment on above: Order Comment: Speci men Type: BLOOD SPECIMEN Ordering Facility: [facility] Address: [address] [place] [address] Performed By: #### 2 276-4, 2131-9, 69199-3, 2283-8 #### [facility] CLIA [id number] [address] [place] [address] [place] Anion gap [Moles/Vol] 13 mmol/L Normal 9-18 [facility] Comment on above: Order Comment: Speci men Type: BLOOD SPECIMEN Ordering Facility: [facility] Address: [address] [place] [address] Performed By: #### 2 276-4, 2131-9, 40107-9, 2284-8 #### [facility] CLIA [id number] [address] [place] [address] [place] AST [Catalytic activity/Vol] 18 U/L Normal 13-35 [facility] Comment on above: Order Comment: Speci men Type: BLOOD SPECIMEN Ordering Facility: [facility] Address: [address] [place] [address] Performed By: #### 2 276-4, 2131-9, 60729-8, 2283-8 #### [facility] CLIA [id number] [address] [place] [address] [place] Bilirubin [Mass/Vol] 0.3 mg/dL Normal 0.2-1.3 [facility] Comment on above: Order Comment: Speci men Type: BLOOD SPECIMEN Ordering Facility: [facility] Address: [address] [place] [address] Performed By: #### 2 276-4, 2131-9, 84698-8, 2283-8 #### [facility] CLIA [id number] [address] [place] [address] [place] Calcium [Mass/Vol] 9.4 mg/dL Normal 8.5-10.2 [facility] Comment on above: Order Comment: Speci men Type: BLOOD SPECIMEN Ordering Facility: [facility] Address: [address] [place] [address] Performed By: #### 2 276-4, 2131-9, 57918-5, 2283-8 #### [facility] CLIA [id number] [address] [place] [address] [place] Chloride [Moles/Vol] 106 mmol/L High 97-105 [facility] Comment on above: Order Comment: Speci men Type: BLOOD SPECIMEN Ordering Facility: [facility] Address: [address] [place], [place] [address] Performed By: #### 2 276-4, 2131-9, 92866-0, 2283-8 #### [facility] CLIA [id number] [address] [place], [place] [address] [place] CO2 [Moles/Vol] 23 mmol/L Normal 22-30 [facility] Comment on above: Order Comment: Speci men Type: BLOOD SPECIMEN Ordering Facility: [facility] Address: [address] [place] [address] Performed By: #### 2 276-4, 2131-9, 50236-5, 2283-8 #### [facility] CLIA [id number] [address] [place] [address] [place] Creatinine [Mass/Vol] 0.81 mg/dL Normal 0.58-0.96 [facility] Comment on above: Order Comment: Speci men Type: BLOOD SPECIMEN Ordering Facility: [facility] Address: [address] [place] [address] Performed By: #### 2 276-4, 9, 16341-0, 8 #### [facility] CLIA [id number] [address] [place] [address] [place] Creatinine and Glomerular filtration rate.predicted panel (S/P/Bld) 98 mL/min/1.73m??? Normal >=[address] [facility] Comment on above: Order Comment: Speci men Type: BLOOD SPECIMEN Ordering Facility: [facility] Address: [address] [place] [address] Result Comment: Faye mated Glomerular Filtration Rate (eGFR) is calculated using the 2020 CKD-EPI creatinine equation. This equation utilizes serum creatinine, sex, and age as parameters. The creatinine assay has traceable calibration to isotope dilution-mass spectrometry. Refer to KDIGO guidelines for clinical interpretation. In patients with unstable renal function, e.g. those with acute kidney injury, the eGFR may not accurately reflect actual GFR. Performed By: #### 2 276-4, 2131-9, 58463-8, 8 #### [facility] CLIA [id number] [address] [place] [address] [place] Glucose [Mass/Vol] 114 mg/dL High 74-99 [facility] Comment on above: Order Comment: Speci men Type: BLOOD SPECIMEN Ordering Facility: [facility] Address: [address] [place] [address] Result Comment: The [place] Diabetes Association (ADA) provides guidance for cutoff values for fasting glucose and random glucose. The ADA defines fasting as no caloric intake for at least 8 hours. Fasting plasma glucose results between 100 to 125 mg/dL indicate increased risk for diabetes (prediabetes). Fasting plasma glucose results greater than or equal to 126 mg/dL meet the criteria for diagnosis of diabetes. In the absence of unequivocal hyperglycemia, results should be confirmed by repeat testing. In a patient with classic symptoms of hyperglycemia or hyperglycemic crisis, random plasma glucose results greater than or equal to 200 mg/dL meet the criteria for diagnosis of diabetes. Reference: Standards of Medical Care in Diabetes 2016, [place] Diabetes Association. Diabetes Care. 2016.39(Suppl 1). Performed By: #### 2 276-4, 2131-9, 58431-7, 8 #### [facility] CLIA [id number] [address] [place] [address] [place] Potassium [Moles/Vol] 4.3 mmol/L Normal 3.7-5.1 [facility] Comment on above: Order Comment: Speci men Type: BLOOD SPECIMEN Ordering Facility: [facility] Address: [address] [place] [address] Performed By: #### 2 276-4, 2131-9, 05811-0, 2284-04 #### [facility] CLIA [id number] [address] [place] [address] [place] Protein [Mass/Vol] 7.9 g/dL Normal 6.3-8.0 [facility] Comment on above: Order Comment: Speci men Type: BLOOD SPECIMEN Ordering Facility: [facility] Address: [address] [place] [address] Performed By: #### 2 276-4, 2131-9, 93953-0, 2283-8 #### [facility] CLIA [id number] [address] [place] [address] [place] Sodium [Moles/Vol] 142 mmol/L Normal 136-144 [facility] Comment on above: Order Comment: Speci men Type: BLOOD SPECIMEN Ordering Facility: [facility] Address: [address] [place] [address] Performed By: #### 2 276-4, 2131-9, 58518-1, 2283-8 #### [facility] CLIA [id number] [address] [place] [address] [place] Urea nitrogen [Mass/Vol] 13 mg/dL Normal 7-21 [facility] Comment on above: Order Comment: Speci men Type: BLOOD SPECIMEN Ordering Facility: [facility] Address: [address] [place] [address] Performed By: #### 2 276-4, 2131-9, 65957-0, 8 #### [facility] CLIA [id number] [address] [place] [address] [place] Ferritin SerPl-mCncon 2023 Ferritin [Mass/Vol] 63.7 ng/mL Normal 14.7-205.1 [facility] Comment on above: Order Comment: Speci men Type: BLOOD SPECIMEN Ordering Facility: [facility] Address: [address] [place] [address] Performed By: #### 2 4331-1 #### [facility] CLIA [id number] [address] [place] [address] [place] [facility] CLIA [id number] [address] [place] [address] #### 2276-4, 33869-2 #### [facility] CLIA [id number] [address] [place] [address] [place] Folate SerPl-mCncon 12-20-19 Folate [Mass/Vol] 13.9 ng/mL Normal >4.7 [facility] Comment on above: Order Comment: Speci men Type: BLOOD SPECIMEN Ordering Facility: [facility] Address: [address] [place] [address] Performed By: #### 2 132-9, 2284-8 #### [facility] CLIA [id number] [address] [place] [address] [place] HBV surface Ag Ser Qlon 12-02 HBV surface Ag Ql (S) Negative Normal Negative [facility] Comment on above: Order Comment: Speci men Type: BLOOD SPECIMEN Ordering Facility: [facility] Address: [address] [place] [address] Performed By: #### 2 276-4, 2132-9, 11425-4, 2284-8 #### [facility] [place] [id number] [address] [place] [address] [place] HCV Ab Ser Qlon 12-20-2023 HCV Ab Ql (S) Negative Normal Negative [facility] Comment on above: Order Comment: Speci gilberto Type: BLOOD SPECIMEN Ordering Facility: [facility] Address: [address] [place] [address], [address], [place] [address] Result Comment: The result suggests no evidence of active infection with Hepatitis C virus. Should recent infection be suspected, repeat testing may be considered 4-6 weeks after this draw. Performed By: #### 1 6128-1 #### [facility] CLIA [id number] [address] [place] [address] [place] Hcys SerPl-sCncon 12-20-2023 Homocysteine [Moles/Vol] 7.4 umol/L Normal <15.1 [facility] Comment on above: Order Comment: Speci men Type: BLOOD SPECIMEN Ordering Facility: [facility] Address: [address] [place] [address] Performed By: #### 2 276-4, 2132-9, 28814-3, 2284-8 #### [facility] CLIA [id number] [address] [place] [address] [place] Iron and Iron binding capaci ty panelon 12-20-2023 Iron [Mass/Vol] 35 ug/dL Low 41-186 [facility] Comment on above: Order Comment: Speci men Type: BLOOD SPECIMEN Ordering Facility: [facility] Address: [address] [place] [address] Performed By: #### 2 4331-1 #### [facility] CLIA [id number] [address] [place] [address] [place] [facility] CLIA [id number] [address] [place] [address] #### 2276-4, 39959-6 #### [facility] CLIA [id number] [address] [place] [address] [place] Iron binding capacity [Mass/Vol] 339 ug/dL Normal 232-386 [facility] Comment on above: Order Comment: Speci men Type: BLOOD SPECIMEN Ordering Facility: [facility] Address: [address] [place] [address] Performed By: #### 2 4331-1 #### [facility] CLIA [id number] [address] [place] [address] [place] [facility] CLIA [id number] [address] [place] [address] #### 2276-4, 69042-7 #### [facility] CLIA [id number] [address] [place] [address] [place] Iron/TIBC [Molar ratio] 10.3 % Low 15.0-57.0 [facility] Comment on above: Order Comment: Speci men Type: BLOOD SPECIMEN Ordering Facility: [facility] Address: [address] [place], [place] [address] Performed By: #### 2 4331-1 #### [facility] CLIA [id number] [address] [place] [address] [facility] CLIA [id number] [address] [place] [address] #### 2276-4, 86935-4 #### [facility] CLIA [id number] [address] [place] [address] [place] Lipid 1996 panelon 4 Cholesterol [Mass/Vol] 173 mg/dL Normal <200 [facility] Comment on above: Order Comment: Speci men Type: BLOOD SPECIMEN [facility]ing [facility] Address: [address] [place] [address], [address], [place] [address] Result Comment: <200 mg/dL, Desirable 200-239 mg/dL, Borderline high >239 mg/dL, High Performed By: #### 2 4331-1 #### [facility] CLIA [id number] [address] [place] [address] OF [facility] CLIA [id number] [address] [place] [address] #### 2276-4, 65592-0 #### [facility] CLIA [id number] [address] [place] [address] [place] Cholesterol in HDL [Mass/Vol] 32 mg/dL Low >39 [facility] Comment on above: Order Comment: Speci men Type: BLOOD SPECIMEN Ordering Facility: [facility] Address: [address] [facility], [address], [place] [address] Result Comment: 40-5 9 mg/dL, Acceptable >59 mg/dL, High: Negative risk factor for coronary heart disease <40 mg/dL, Low: Positive risk factor for coronary heart disease Performed By: #### 2 4331-1 #### [facility] CLIA [id number] [facility] [address] [facility] CLIA [id number] [address] [place] [address] #### 2276-4, 67999-3 #### [facility] CLIA [id number] [address] [place] [address] Cholesterol in LDL [Mass/Vol] 116 mg/dL High <100 [facility] Comment on above: Order Comment: Speci men Type: BLOOD SPECIMEN Ordering Facility: [facility] Address: [address] [place] [address], [address], [place] [address] Result Comment: <100 mg/dL, Optimal 100-129 mg/dL, Near optimal/above optimal 130-159 mg/dL, Borderline high 160-189 mg/dL, High >189 mg/dL, Very high Secondary prevention optimal LDL Cholesterol levels are recommended to be < 70 mg/dL Performed By: #### 2 4331-1 #### [facility] CLIA [id number] [address] [place] [address] LAB CLIA [id number] [address] [place] [address] #### 2276-4, 94594-5 #### [facility] CLIA [id number] [address] [place] [address] Cholesterol in LDL/Cholesterol in HDL [Mass ratio] 3.63 {ratio} High <2.54 [facility] Comment on above: Order Comment: Nima macias Type: BLOOD SPECIMEN Ordering Facility: [facility] Address: [address] [place] [address], [address], [place] [address] Result Comment: Refe rence: 1. National Cholesterol Education Program ATP III Guideline At-A-Glance Quick Desk Reference: National Heart, Lung, and Blood [place]. National Institutes of Health. 2001: NIH Publication No. 01-3305. 2. An International Atherosclerosis Society position paper: global recommendations for the management of dyslipidemia: executive summary, Atherosclerosis. 2014: 232(2):410-413. Performed By: #### 2 4331-1 #### [facility] CLIA [id number] [address] [facility] CLIA [id number] [address] [place] [address] #### 2276-4, 58242-1 #### [facility] CLIA [id number] [address] [place], [place] [address] [place] Cholesterol in VLDL [Mass/Vol] 25 mg/dL Normal <30 [facility] Comment on above: Order Comment: Speci gilberto Type: BLOOD SPECIMEN Ordering Facility: [facility] Address: [address] [place] [address], [address], [place] [id number] Performed By: #### 2 4331-1 #### [facility] CLIA [id number] [address] [facility] CLIA [id number] [address] [place] [address] #### 2276-4, 90140-2 #### [facility] CLIA [id number] [address] [place] [address] [place] Cholesterol non HDL [Mass/Vol] 141 mg/dL High <130 [facility] Comment on above: Order Comment: Nima macias Type: BLOOD SPECIMEN Ordering Facility: [facility] Address: [address] [place] [address], [address], [place] [id number] Result Comment: <130 mg/dL, Optimal 130-159 mg/dL, Near optimal/above optimal 160-189 mg/dL, Borderline high 190-219 mg/dL, High >219 mg/dL, Very high Secondary prevention optimal non HDL Cholesterol levels are recommended to be <100 mg/dL Performed By: #### 2 4331-1 #### [facility] CLIA [id number] [address] [place] [address] [place] [facility] CLIA [id number] [address] [place] [address] #### 2276-4, 01974-8 #### [facility] CLIA [id number] [address] [place] [address] [place] Cholesterol.total/Cho lesterol in HDL [Mass ratio] 5.41 {ratio} High <5.10 [facility] Comment on above: Order Comment: Speci men Type: BLOOD SPECIMEN Ordering Facility: [facility] Address: [address] [place] [address], [address] [place] [address] Performed By: #### 2 4331-1 #### [facility] CLIA [id number] [address] [place] [address] [place] [facility] CLIA [id number] [address] [place] [address] #### 2276-4, 53415-3 #### [facility] CLIA [id number] [address] [place] [address] [place] FASTING TIME 12 hrs [facility] Comment on above: Order Comment: Speci men Type: BLOOD SPECIMEN Ordering Facility: [facility] Address: [address] [place] [address], [address] [address] Performed By: #### 2 4331-1 #### [facility] CLIA [id number] [address] [place] [address] [place] [facility] CLIA [id number] [address] [place] [address] #### 2276-4, 18126-8 #### [facility] CLIA [id number] [address] [place] [address] [place] Triglyceride [Mass/Vol] 126 mg/dL Normal <150 [facility] Comment on above: Order Comment: Speci men Type: BLOOD SPECIMEN Ordering Facility: [facility] Address: [address] [place] [address], [address], [place] [id number] Result Comment: <150 mg/dL, Normal 150-199 mg/dL, Borderline high 200-499 mg/dL, High >499 mg/dL, Very high Performed By: #### 2 4331-1 #### [facility] CLIA [id number] [address] [place] [address] [place] [facility] CLIA [id number] [address] [place] [address] #### 2276-4, 17780-7 #### [facility] CLIA [id number] [address] [place] [address] [place] Vit B12 [facility] 024 Cobalamin (Vitamin B12) [Mass/Vol] 738 pg/mL Normal 232-1245 [facility] Comment on above: Order Comment: Speci men Type: BLOOD SPECIMEN Ordering Facility: [facility] Address: [address] [place] [address] Performed By: #### 2 132-9, 2284-8 #### [facility] CLIA [id number] [address] [place] [address] [place] XR CHEST 2 VWSon 12-12-2023 XR CHEST 2 VWS XR CHEST 2 VWS PA and lateral chest: HISTORY: Shortness of breath. 2 views of the chest are obtained. Lungs are clear. There is no consolidation or effusion. No pneumothorax. Osseous appear intact. Cardiac and mediastinal contours are unremarkable. IMPRESSION: No acute findings. 4 Finalized by Tarun Rodríguez MD on 12/12/2023 2:25 PM Normal [facility] H PYLORI SCREENon 12-10-2023 H. pylori Org specific cx Ql (Roland fld) Negative Normal NEG [facility] Comment on above: Performed By: #### 4 4015-6 #### [facility] ([id number]) [address] [place] [address], [address] [place] [address] HCG ( test) Ql (U)o n 12-10-2023 Beta HCG ( test) Ql (U) Negative Normal NEG [facility] Comment on above: Performed By: #### P INR, 64396-6 #### [facility] ([id number]) [address] [facility], [place] [address] #### BMP #### [facility] ([id number]) [address] [place] [address], [address] [place] [address] Surgical Pathologyon 024 Surgical Pathology Normal [facility] Comment on above: Result Comment: [facility] [address] [place] [address] Surgical Pathology Consultation Patient Name:MARGARET PRIETO:1990 (Age: 33)Gender:FTaken:4Reported:12/18/2023hysician(s):Collins Mejia D.O. ([phone])Copy To: Rec. #:[id number]: #[id number] Final Pathologic Diagnosis 1. Antrum biopsy: Fragments of gastric mucosa with no significant histopathologic abnormality 2. Distal esophagus biopsy: Fragment of gastric cardia mucosa with reactive changes suggestive of mild chronic reflux-related changes Squamous mucosa, dysplasia or intestinal metaplasia is not identified Report Electronically Signed Out jossk/12/18/2023Halina Fraga MD Interpretation performed at [facility], [address] [place] [address], License number: [id number]. Clinical History Gastroesophageal reflux, nausea, vomiting. Gross Description 1. Received in formalin labeled, MORHART, antrum are 2 pale-herrera delicate soft tissue fragments, each 0.4 cm in greatest dimension. The specimens are filtered and submitted in a single cassette. (1, ns, [id number], m4) TB 2. Received in formalin labeled, CONNER, distal esophagus is a pale-herrera delicate soft tissue bit, 0.3 cm in greatest dimension. The specimen is filtered and submitted in a single cassette. (1, ns, [id number], m4) TB tgb/12/11/2023NSK Specimen(s) Received 1: Antrum biopsy 2: Distal esophagus biopsy Fee Codes(s): 1; 88535 2; 02692 Cytologyon 12-07-2023 Cytology Normal [facility] Comment on above: Result Comment: [facility] [employer] [facility] [address] [place] [address] Gynecologic Cytology Consultation Patient Name:MARGARET PRIETO:1990 (Age: 33)Gender:FTaken:4Reported:4Physician(s):Milady CarrenoNMichellePMichelle ([phone])Copy To: Rec. #:[id number]: #[id number] Final Cytologic Interpretation ThinPrep Pap Test (Vaginal/Cervical): Satisfactory for evaluation. A transformazion zone component is not identified via imaging-assisted review, using [employer] Thin Prep Imaging System, within 22 microscopic chan of view. NEGATIVE FOR INTRAEPITHELIAL LESION OR MALIGNANCY. [facility] [place] Interpretation performed at [facility], [address] [place] [address], License number: [id number]. 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) Fee Code(s): G0145 HGB A1C (GLYCO-HGB)on 2023 Glucose [Mass/Vol] 123 mg/dL Normal [facility] Comment on above: Performed By: #### T SHR #### [facility] ([id number]) [address] [place] [address], [address] [place] [address] HbA1c (Bld) [Mass fraction] 5.9 % High 4.4-5.6 [facility] Comment on above: Result Comment: NOTE ADA Guidelines Result HgbA1c Normal : less than 5.7 % Prediabetes : 5.7 % to 6.4 % Diabetes : > 6.4 % Use with caution in patients with abnormal hemoglobin variants as the half-life of red blood cells and in vivo glycation rates are affected. Performed By: #### T SHR #### [facility] ([id number]) [address] [place] [address], [address] [place] [address] HIGH RISK HPV W/GENOon 12-06 HPV 31+33+35+39+45+51+52+ 56+58+59+66+68 DNA EVARISTO+probe Ql (Cvx) HPV SPECIMEN TYPE ThinPrep HPV 16 Negative (qualifier value) HPV 18 Negative (qualifier value) OTHER HIGH RISK HPV Negative (qualifier value) HPV types 31,33,35,39,45,52,5 6,58,59,66 and 68 DNA were undetectable. Normal [facility] Comment on above: Performed By: #### 7 1431-1 #### [facility] ([id number]) [address] [place] [address], [place] [address] [facility] ([id number]) [address] [place] [address], [address] [place] [address] Hemoglobin A1con 12-07-2023 Average glucose Estimated from glycated hemoglobin (Bld) [Mass/Vol] 123 mg/dL [facility] HbA1c (Bld) [Mass fraction] 5.9 % High 4.4 - 5.6 % [facility] Comment on above: NOTE ADA Guidelines Result HgbA1c Normal : less than 5.7 % Prediabetes : 5.7 % to 6.4 % Diabetes : > 6.4 % Use with caution in patients with abnormal hemoglobin variants as the half-life of red blood cells and in vivo glycation rates are affected. Interpretation and review of laboratory results Abnormal [facility] TSH WITH REFLEXon 12-07-2023 TSH 3.01 uIU/mL Normal 0.49-4.67 [facility] Comment on above: Performed By: #### T [facility] #### [facility] ([id number]) [address] [place] [address] TSH with Reflexon 12-07-2023 TSH Qn 3.01 m[IU]/L [facility] FERRITIN BLDon 11-30-2023 Ferritin [Mass/Vol] 72.5 ng/mL 14.7 - 2 05.1 ng/mL [facility] FOLATE SERUMon 11-30-2023 Folate [Mass/Vol] 12.6 ng/mL >4.7 ng/mL [facility] Iron and Iron binding capaci ty panelon 11-30-2023 Iron [Mass/Vol] 34 ug/dL Low 41 - 186 ug/dL [facility] Iron binding capacity [Mass/Vol] 375 ug/dL 232 - 386 ug/dL [facility] Iron/TIBC [Molar ratio] 9.1 % Low 15.0 - 57.0 % [facility] VITAMIN B12 BLOODon 11-30-19 Cobalamin (Vitamin B12) [Mass/Vol] 740 pg/mL 232 - 1,245 pg/mL [facility] CBC W Auto Differential pane l (Bld)on 11-29-2023 Basophils (Bld) [#/Vol] 0.06 10*3/uL Normal <0.11 [facility] Comment on above: Order Comment: Speci men Type: BLOOD SPECIMEN Ordering Facility: [facility] Address: [address] [place] [address] Performed By: #### 2 276-4, 2132-9, 68134-6, 8 #### [facility] CLIA [id number] [address] [place] [address] [place] Basophils/100 WBC (Bld) 0.5 % Normal [facility] Comment on above: Order Comment: Speci men Type: BLOOD SPECIMEN Ordering Facility: [facility] Address: [address] [place] [address] Performed By: #### 2 276-4, 9, 64977-8, 2284-04 #### [facility] CLIA [id number] [address] [place] [address] [place] Differential cell count method Nom (Bld) Auto Normal [facility] Comment on above: Order Comment: Speci men Type: BLOOD SPECIMEN Ordering Facility: [facility] Address: [address] [place] [address] Performed By: #### 2 276-4, 9, 49719-6, 2284-04 #### [facility] CLIA [id number] [address] [place] [address] [place] Eosinophils (Bld) [#/Vol] 0.30 10*3/uL Normal <0.46 [facility] Comment on above: Order Comment: Speci men Type: BLOOD SPECIMEN Ordering Facility: [facility] Address: [address] [place] [address] Performed By: #### 2 276-4, 9, 64517-6, 2284-04 #### [facility] CLIA [id number] [address] [place] [address] [place] Eosinophils/100 WBC (Bld) 2.4 % Normal [facility] Comment on above: Order Comment: Speci men Type: BLOOD SPECIMEN Ordering Facility: [facility] Address: [address] [place] [address] Performed By: #### 2 276-4, 2131-9, 61930-5, 8 #### [facility] CLIA [id number] [address] [place] [address] [place] Erythrocyte distribution width (RBC) [Ratio] 14.7 % Normal 11.5-15.0 [facility] Comment on above: Order Comment: Speci men Type: BLOOD SPECIMEN Ordering Facility: [facility] Address: [address] [place] [address] Performed By: #### 2 276-4, 2131-9, 63809-9, 2283-8 #### [facility] CLIA [id number] [address] [place] [address] [place] Hematocrit (Bld) [Volume fraction] 41.9 % Normal 36.0-46.0 [facility] Comment on above: Order Comment: Speci men Type: BLOOD SPECIMEN Ordering Facility: [facility] Address: [address] [place] [address] Performed By: #### 2 276-4, 2131-9, 83929-5, 2283-8 #### [facility] CLIA [id number] [address] [place] [address] [place] Hemoglobin (Bld) [Mass/Vol] 13.6 g/dL Normal 11.5-15.5 [facility] Comment on above: Order Comment: Speci men Type: BLOOD SPECIMEN Ordering Facility: [facility] Address: [address] [place] [address] Performed By: #### 2 276-4, 2131-9, 43748-9, 2283-8 #### [facility] CLIA [id number] [address] [place] [address] [place] Immature granulocytes (Bld) [#/Vol] 0.05 10*3/uL Normal <0.10 [facility] Comment on above: Order Comment: Speci men Type: BLOOD SPECIMEN Ordering Facility: [facility] Address: [address] [place] [address] Performed By: #### 2 276-4, 2131-9, 36420-7, 8 #### [facility] CLIA [id number] [address] [place] [address] [place] Immature granulocytes/100 WBC (Bld) 0.4 % Normal [facility] Comment on above: Order Comment: Speci men Type: BLOOD SPECIMEN Ordering Facility: [facility] Address: [address] [place] [address] Performed By: #### 2 276-4, 2131-9, 22427-5, 8 #### [facility] CLIA [id number] [address] [place] [address] [place] Lymphocytes (Bld) [#/Vol] 1.86 10*3/uL Normal 1.00-4.00 [facility] Comment on above: Order Comment: Speci men Type: BLOOD SPECIMEN Ordering Facility: [facility] Address: [address] [place] [address] Performed By: #### 2 276-4, 2131-9, 75427-5, 8 #### [facility] CLIA [id number] [address] [place] [address] [place] Lymphocytes/100 WBC (Bld) 15.1 % Normal [facility] Comment on above: Order Comment: Speci men Type: BLOOD SPECIMEN Ordering Facility: [facility] Address: [address] [place] [address] Performed By: #### 2 276-4, 2131-9, 44785-5, 2284-04 #### [facility] CLIA [id number] [address] [place], [place] [address] [place] MCH (RBC) [Entitic mass] 25.9 pg Low 26.0-34.0 [facility] Comment on above: Order Comment: Speci men Type: BLOOD SPECIMEN Ordering Facility: [facility] Address: [address] [place] [address] Performed By: #### 2 276-4, 2131-9, 70819-1, 8 #### [facility] CLIA [id number] [address] [place], [place] [address] [place] MCHC (RBC) [Mass/Vol] 32.5 g/dL Normal 30.5-36.0 [facility] Comment on above: Order Comment: Speci men Type: BLOOD SPECIMEN Ordering Facility: [facility] Address: [address] [place] [address] Performed By: #### 2 276-4, 9, 15053-6, 2284-04 #### [facility] CLIA [id number] [address] [place] [address] [place] MCV (RBC) [Entitic vol] 79.8 fL Low 80.0-100.0 [facility] Comment on above: Order Comment: Speci men Type: BLOOD SPECIMEN Ordering Facility: [facility] Address: [address] [place] [address] Performed By: #### 2 276-4, 9, 39559-0, 8 #### [facility] CLIA [id number] [address] [place] [address] [place] Monocytes (Bld) [#/Vol] 0.74 10*3/uL Normal <0.87 [facility] Comment on above: Order Comment: Speci men Type: BLOOD SPECIMEN Ordering Facility: [facility] Address: [address] [place] [address] Performed By: #### 2 276-4, 9, 05913-4, 8 #### [facility] CLIA [id number] [address] [place] [address] [place] Monocytes/100 WBC (Bld) 6.0 % Normal [facility] Comment on above: Order Comment: Speci men Type: BLOOD SPECIMEN Ordering Facility: [facility] Address: [address] [place] [address] Performed By: #### 2 276-4, 2131-9, 95116-4, 8 #### [facility] CLIA [id number] [address] [place] [address] [place] Neutrophils (Bld) [#/Vol] 9.33 10*3/uL High 1.45-7.50 [facility] Comment on above: Order Comment: Speci men Type: BLOOD SPECIMEN Ordering Facility: [facility] Address: [address] [place] [address] Performed By: #### 2 276-4, 9, 45716-1, 8 #### [facility] CLIA [id number] [address] [place] [address] [place] Neutrophils/100 WBC (Bld) 75.6 % Normal [facility] Comment on above: Order Comment: Speci men Type: BLOOD SPECIMEN Ordering Facility: [facility] Address: [address] [place] [address] Performed By: #### 2 276-4, 9, 64687-0, 2284-04 #### [facility] CLIA [id number] [address] [place] [address] [place] Nucleated RBC (Bld) [#/Vol] 10*3/uL Normal <0.01 [facility] Comment on above: Order Comment: Speci men Type: BLOOD SPECIMEN Ordering Facility: [facility] Address: [address] [place] [address] Performed By: #### 2 276-4, 9, 43386-6, 2284-04 #### [facility] CLIA [id number] [address] [place] [address] [place] Nucleated RBC/100 WBC (Bld) [Ratio] 0.0 /100 WBC Normal [facility] Comment on above: Order Comment: Speci men Type: BLOOD SPECIMEN Ordering Facility: [facility] Address: [address] [place] [address] Performed By: #### 2 276-4, 9, 20983-3, 2283-8 #### [facility] CLIA [id number] [address] [place] [address] [place] Platelet mean volume (Bld) [Entitic vol] 8.9 fL Low 9.0-12.7 [facility] Comment on above: Order Comment: Speci men Type: BLOOD SPECIMEN Ordering Facility: [facility] Address: [address] [place] [address] Performed By: #### 2 276-4, 2131-9, 75515-5, 2283-8 #### [facility] CLIA [id number] [address] [place] [address] [place] Platelets (Bld) [#/Vol] 387 10*3/uL Normal 150-400 [facility] Comment on above: Order Comment: Speci men Type: BLOOD SPECIMEN Ordering Facility: [facility] Address: [address] [place] [address] Performed By: #### 2 276-4, 2131-9, 64254-5, 2283-8 #### [facility] CLIA [id number] [address] [place] [address] [place] RBC (Bld) [#/Vol] 5.25 10*6/uL High 3.90-5.20 [facility] Comment on above: Order Comment: Speci men Type: BLOOD SPECIMEN Ordering Facility: [facility] Address: [address] [place] [address] Performed By: #### 2 276-4, 2131-9, 57106-4, 2283-8 #### [facility] CLIA [id number] [address] [place] [address] [place] WBC (Bld) [#/Vol] 12.34 10*3/uL High 3.70-11.00 [facility] Comment on above: Order Comment: Speci men Type: BLOOD SPECIMEN Ordering Facility: [facility] Address: [address] [place] [address] Performed By: #### 2 276-4, 2132-9, 66198-0, 2284-8 #### [facility] CLIA [id number] [address] [place] [address] [place] Basophils (Bld) [#/Vol] 0.06 10*3/uL <0.11 k/uL [facility] Basophils/100 WBC (Bld) 0.5 % [facility] Differential cell count method Nom (Bld) Auto [facility] Eosinophils (Bld) [#/Vol] 0.30 10*3/uL <0.46 k/uL [facility] Eosinophils/100 WBC (Bld) 2.4 % [facility] Erythrocyte distribution width (RBC) [Ratio] 14.7 % 11.5 - 15.0 % [facility] Hematocrit (Bld) [Volume fraction] 41.9 % 36.0 - 46.0 % [facility] ic Hemoglobin (Bld) [Mass/Vol] 13.6 g/dL 11.5 - 15.5 g/dL [facility] Immature granulocytes (Bld) [#/Vol] 0.05 10*3/uL <0.10 k/uL [facility] Immature granulocytes/100 WBC (Bld) 0.4 % [facility] Lymphocytes (Bld) [#/Vol] 1.86 10*3/uL 1.00 - 4.00 k/uL [facility] Lymphocytes/100 WBC (Bld) 15.1 % [facility] MCH (RBC) [Entitic mass] 25.9 pg Low 26.0 - 34.0 pg [facility] MCHC (RBC) [Mass/Vol] 32.5 g/dL 30.5 - 36.0 g/dL [facility] MCV (RBC) [Entitic vol] 79.8 fL Low 80.0 - 100.0 fL [facility] Monocytes (Bld) [#/Vol] 0.74 10*3/uL <0.87 k/uL [facility] Monocytes/100 WBC (Bld) 6.0 % [facility] Neutrophils (Bld) [#/Vol] 9.33 10*3/uL High 1.45 - 7.50 k/uL [facility] Neutrophils/100 WBC (Bld) 75.6 % [facility] Nucleated RBC (Bld) [#/Vol] <0.01 k/uL [facility] Nucleated RBC/100 WBC (Bld) [Ratio] 0.0 /100 WBC [facility] Platelet mean volume (Bld) [Entitic vol] 8.9 fL Low 9.0 - 12.7 fL [facility] inic Platelets (Bld) [#/Vol] 387 10*3/uL 150 - 400 k/uL [facility] RBC (Bld) [#/Vol] 5.25 10*6/uL High 3.90 - 5.2 0 m/uL [facility] WBC (Bld) [#/Vol] 12.34 10*3/uL High 3.70 - 11 .00 k/uL [facility] CNOVSPon 11-29-2023 CNOVSP Visit (SP) Office ([place]) ---- CARLMARGARET Arrieta ([id number]) 1990 F Date Time Provider Department 11/29/23 11:15 AM SHARIF JOSEPH During your visit today, we recorded the following information about you: Temperature Pulse Respiration Blood pressure 97.6 degrees 98/minute 16/minute 159/100 Weight Height 172.8 kg 1.651 m Sharif Joseph MD 12/05/2023 9:50 AM Signed NAME: Margaret Prieto [facility] NO.: [id number] DATE OF SERVICE: November 29, 2023 (Jonelle) Referring Provider: CHERRI Pelaez Consultation requested by CHERRI Pelaez for an opinion regarding Ms. Margaret Prieto, and my final recommendations will be communicated back to the requesting physician by way of shared medical record or letter via US mail. Additional Clinicians involved in Margaret Prieto's care: DIAGNOSIS: ASSESSMENT: Pulmonary embolus - semi-provoked - few weeks after cholecystectomy in a period. Very strong family history with Leiden factor V heterozygosity. Stopped her blood thinner in September 2017 Recommended lifelong in July 2018. Patient continued through summer and stopped secondary to multiple other issues including multiple medications and bleeding complications of hidradenitis and personal issues Considering severe obesity and hidradenitis which had been very limiting to her quality of life I had offered her referral to consider for gastric bypass surgery. Likely iron deficiency based on microcytosis. Her ferrous sulfate 325 mg by mouth every other day. She returns more than 3 years later to re-establish care. PLAN: Labs today RTC after endoscopy which I agree is appropriate at this time, especially while she is off of blood thinners Clear from my perspective to proceed with endoscopy with Dr. Mejia At return, repeat labs and will discuss resuming Foltx and resuming anticoagulation (will consider Arixtra 10mg daily) ___- HPI: CASE HISTORY: Reverse Chronological Order 2023 - CTA Chest: Normal CTA chest. Resolution of the bilateral lower lobe pulmonary emboli described on the previous examination dated 11/23/2022. 11/23/2022 - CTA Chest: Almost complete resolution of right lower lobe and left lower lobe subsegmental pulmonary emboli since 11/11/2022. There is no new pulmonary embolus. Interval development of large area of airspace disease with air bronchograms in the right lower lobe may be pulmonary infarct. Due to development of small right hilar lymph nodes, an infectious etiology, such as pneumonia, cannot be excluded. Please correlate clinically 11/13/2022 - ECHO: LVEF: 60-65% 11/11/2022 - CTA Chest: Acute pulmonary emboli as described. No right heart strain. Small left pleural effusion. 11/11/2022-11/19/19 23 - Admitted for pulmonary embolism 10/30/2021 - [facility] Ven[facility] RIGHT: NO EVIDENCE of deep or superficial vein thrombosis of the lower extremity. LEFT: ACUTE deep tibioperoneal vein thrombosis (DVT). NO EVIDENCE of superficial vein thrombosis of the lower extremity. 08/29/2021 - [facility] BILATERAL: NO EVIDENCE of deep vein thrombosis (DVT) of the lower extremity. 2014 - Pulmonary embolism Updated Visit, November 29, 2023: Reestablish Care Margaret Prieto presents today to reestablish her care. She is a 33 year old female who has a prior history of heterozygous Factor V Leiden mutation and MTHFR mutation. She denies current clots. She has been having difficulty taking oral medications due to a burning sensation so she is not currently taking a blood thinner. She would like to start on an anticoagulation injection, instead of an oral medication. Her ankles are swollen bilaterally. Reports a having a headache for about a week - likely related to her blood pressure. She has not been using her CPAP due to claustrophobia. She also reports a worsening cough. From my perspective she is safe to proceed with scopes. After scopes, we will consider anticoagulation injections with Arixtra and Foltx. From [facility] Progress Note on 11/14/2023: Assessment/Plan: Previous results reviewed, including ECHO from 11/13/2022 and 11/23/2023 from [facility] which states -Echogenic density seen wihin the right atrium, likely represents a prominent Eustachian valve vs. Posterior right atrial wall vs. Mass. This has not been re-evaluated. ECHO ordered. Also, CTA chest ordered d/t this abnormal ECHO stating possible mass. Margaret also has hx of PE, and reports she has occasional chest heaviness and shortness of breath. She also has not been on anticoagulation and has not followed with hematology. Recent labs completed 11/09/2023 ordered by anesthesiology- CBC, INR/PT, APTT- WNL. Chest Xray orde (more content not included)... Normal [facility] Comprehensive metabolic 2000 panelon 11-29-2023 Albumin [Mass/Vol] 3.8 g/dL Low 3.9-4.9 [facility] Comment on above: Order Comment: Speci men Type: BLOOD SPECIMEN Ordering Facility: [facility] Address: [facility] [place] [address] Performed By: #### 2 276-4, 2314-9, 37694-4, 2283-8 #### [facility] CLIA [id number] [address] [place] [address] [place] ALP [Catalytic activity/Vol] 91 U/L Normal 34-123 [facility] Comment on above: Order Comment: Speci men Type: BLOOD SPECIMEN Ordering Facility: [facility] Address: [address] [place] [address] Performed By: #### 2 276-4, 9, 37961-6, 8 #### [facility] CLIA [id number] [address] [place] [address] [place] ALT [Catalytic activity/Vol] 22 U/L Normal 7-38 [facility] Comment on above: Order Comment: Speci men Type: BLOOD SPECIMEN Ordering Facility: [facility] Address: [address] [place] [address] Performed By: #### 2 276-4, 9, 49909-9, 8 #### [facility] CLIA [id number] [address] [place] [address] [place] Anion gap [Moles/Vol] 11 mmol/L Normal 9-18 [facility] Comment on above: Order Comment: Speci men Type: BLOOD SPECIMEN Ordering Facility: [facility] Address: [address] [place] [address] Performed By: #### 2 276-4, 9, 45809-5, 8 #### [facility] CLIA [id number] [address] [place] [address] [place] AST [Catalytic activity/Vol] 17 U/L Normal 13-35 [facility] Comment on above: Order Comment: Speci men Type: BLOOD SPECIMEN Ordering Facility: [facility] Address: [address] [place] [address] Performed By: #### 2 276-4, 2131-9, 71835-1, 2284-8 #### [facility] CLIA [id number] [address] [place] [address] [place] Bilirubin [Mass/Vol] 0.3 mg/dL Normal 0.2-1.3 [facility] Comment on above: Order Comment: Speci men Type: BLOOD SPECIMEN Ordering Facility: [facility] Address: [address] [place] [address] Performed By: #### 2 276-4, 9, 50639-6, 8 #### [facility] CLIA [id number] [address] [place] [address] [place] Calcium [Mass/Vol] 9.4 mg/dL Normal 8.5-10.2 [facility] Comment on above: Order Comment: Speci men Type: BLOOD SPECIMEN Ordering Facility: [facility] Address: [address] [place] [address] Performed By: #### 2 276-4, 9, 11652-7, 8 #### [facility] CLIA [id number] [address] [place] [address] [place] Chloride [Moles/Vol] 105 mmol/L Normal 97-105 [facility] Comment on above: Order Comment: Speci men Type: BLOOD SPECIMEN Ordering Facility: [facility] Address: [address] [place] [address] Performed By: #### 2 276-4, 9, 50355-0, 8 #### [facility] CLIA [id number] [address] [place] [address] [place] CO2 [Moles/Vol] 24 mmol/L Normal 22-30 [facility] Comment on above: Order Comment: Speci men Type: BLOOD SPECIMEN Ordering Facility: [facility] Address: [address] [place] [address] Performed By: #### 2 276-4, 2131-9, 77808-7, 2284-8 #### [facility] CLIA [id number] [address] [place], [place] [address] [place] Creatinine [Mass/Vol] 0.83 mg/dL Normal 0.58-0.96 [facility] Comment on above: Order Comment: Nima macias Type: BLOOD SPECIMEN Ordering Facility: [facility] Address: [address] [place] [address] Performed By: #### 2 276-4, 2131-9, 60897-4, 8 #### [facility] CLIA [id number] [address] [place] [address] [place] Creatinine and Glomerular filtration rate.predicted panel (S/P/Bld) 95 mL/min/1.73m??? Normal >=[address] [facility] Comment on above: Order Comment: Nima macias Type: BLOOD SPECIMEN Ordering Facility: [facility] Address: [address] [place] [address] Result Comment: Faye mated Glomerular Filtration Rate (eGFR) is calculated using the 2020 CKD-EPI creatinine equation. This equation utilizes serum creatinine, sex, and age as parameters. The creatinine assay has traceable calibration to isotope dilution-mass spectrometry. Refer to KDIGO guidelines for clinical interpretation. In patients with unstable renal function, e.g. those with acute kidney injury, the eGFR may not accurately reflect actual GFR. Performed By: #### 2 276-4, 2131-9, 69753-2, 8 #### [facility] CLIA [id number] [address] [place], [place] [address] [place] Glucose [Mass/Vol] 117 mg/dL High 74-99 [facility] Comment on above: Order Comment: Nima macias Type: BLOOD SPECIMEN Ordering Facility: [facility] Address: [address] [place] [address] Result Comment: The [place] Diabetes Association (ADA) provides guidance for cutoff values for fasting glucose and random glucose. The ADA defines fasting as no caloric intake for at least 8 hours. Fasting plasma glucose results between 100 to 125 mg/dL indicate increased risk for diabetes (prediabetes). Fasting plasma glucose results greater than or equal to 126 mg/dL meet the criteria for diagnosis of diabetes. In the absence of unequivocal hyperglycemia, results should be confirmed by repeat testing. In a patient with classic symptoms of hyperglycemia or hyperglycemic crisis, random plasma glucose results greater than or equal to 200 mg/dL meet the criteria for diagnosis of diabetes. Reference: Standards of Medical Care in Diabetes 2016, [place] [employer] Association. Diabetes Care. 2016.39(Suppl 1). Performed By: #### 2 276-4, 9, 81451-5, 2284-04 #### [facility] CLIA [id number] [address] [place] [address] [place] Potassium [Moles/Vol] 4.4 mmol/L Normal 3.7-5.1 [facility] Comment on above: Order Comment: Nima macias Type: BLOOD SPECIMEN Ordering Facility: [facility] Address: [address] [place] [address] Performed By: #### 2 276-4, 9, 95998-1, 2284-04 #### [facility] CLIA [id number] [address] [place] [address] [place] Protein [Mass/Vol] 8.1 g/dL High 6.3-8.0 [facility] Comment on above: Order Comment: Nima macias Type: BLOOD SPECIMEN Ordering Facility: [facility] Address: [address] [place] [address] Performed By: #### 2 276-4, 9, 26654-0, 2284-04 #### [facility] CLIA [id number] [address] [place] [address] [place] Sodium [Moles/Vol] 140 mmol/L Normal 136-144 [facility] Comment on above: Order Comment: Brodyi men Type: BLOOD SPECIMEN Ordering Facility: [facility] Address: [address] [place] [address] Performed By: #### 2 276-4, 9, 42990-9, 8 #### [facility] CLIA [id number] [address] [place] [address] [place] Urea nitrogen [Mass/Vol] 10 mg/dL Normal 7-21 [facility] Comment on above: Order Comment: Speci men Type: BLOOD SPECIMEN Ordering Facility: [facility] Address: [address] [place] [address] Performed By: #### 2 276-4, 2132-9, 50192-4, 8 #### [facility] CLIA [id number] [address] [place] [address] [place] Albumin [Mass/Vol] 3.8 g/dL Low 3.9 - 4.9 g/dL [facility] ALP [Catalytic activity/Vol] 91 U/L 34 - 123 U/L [facility] ALT [Catalytic activity/Vol] 22 U/L 7 - 38 U/L [facility] Anion gap [Moles/Vol] 11 mmol/L 9 - 18 mmol/L [facility] AST [Catalytic activity/Vol] 17 U/L 13 - 35 U/L [facility] Bilirubin [Mass/Vol] 0.3 mg/dL 0.2 - 1 .3 mg/dL [facility] Calcium [Mass/Vol] 9.4 mg/dL 8.5 - 10. 2 mg/dL [facility] Chloride [Moles/Vol] 105 mmol/L 97 - 10 5 mmol/L [facility] CO2 [Moles/Vol] 24 mmol/L 22 - 30 mmol/L [facility] Creatinine [Mass/Vol] 0.83 mg/dL 0.58 - 0.96 mg/dL [facility] Estimated Glomerular Filtration Rate 95 mL/min/1.73m >=60 mL/min/1.73m [facility] Glucose [Mass/Vol] 117 mg/dL High 74 - 99 mg/dL [facility] Potassium [Moles/Vol] 4.4 mmol/L 3.7 - 5.1 mmol/L [facility] Protein [Mass/Vol] 8.1 g/dL High 6.3 - 8.0 g/dL [facility] Sodium [Moles/Vol] 140 mmol/L 136 - 144 mmol/L [facility] Urea nitrogen [Mass/Vol] 10 mg/dL 7 - 21 mg/dL [facility] Ferritin [Mass/Vol] 72.5 ng/mL Normal 14.7-205.1 [facility] Comment on above: Order Comment: Speci men Type: BLOOD SPECIMEN Ordering Facility: [facility] Address: [address] [place] [address] Performed By: #### 2 276-4, 2131-9, 29037-9, 2283-8 #### [facility] CLIA [id number] [address] [place] [address] [place] [facility] Folate [Mass/Vol] 12.6 ng/mL Normal >4.7 [facility] Comment on above: Order Comment: Speci men Type: BLOOD SPECIMEN Ordering Facility: [facility] Address: [address] [place] [address] Performed By: #### 2 276-4, 2131-9, 20671-3, 2283-8 #### [facility] CLIA [id number] [address] [place] [address] [place] Iron and Iron binding capaci panelon 11-29-2023 Iron [Mass/Vol] 34 ug/dL Low 41-186 [facility] Comment on above: Order Comment: Speci men Type: BLOOD SPECIMEN Ordering Facility: [facility] Address: [address] [place] [address] Performed By: #### 2 276-4, 2131-9, 46948-2, 2283-8 #### [facility] CLIA [id number] [address] [place] [address] [place] Iron binding capacity [Mass/Vol] 375 ug/dL Normal 232-386 [facility] Comment on above: Order Comment: Speci men Type: BLOOD SPECIMEN Ordering Facility: [facility] Address: [address] [place] [address] Performed By: #### 2 276-4, 2132-9, 78791-2, 2284-8 #### [facility] CLIA [id number] [address] [place] [address] [place] Iron/TIBC [Molar ratio] 9.1 % Low 15.0-57.0 [facility] Comment on above: Order Comment: Speci men Type: BLOOD SPECIMEN Ordering Facility: [facility] Address: [address] [place] [address] Performed By: #### 2 276-4, 2132-9, 00313-4, 2283-8 #### [facility] CLIA [id number] [address] [place] [address] [place] Vit B12 SerPl-ncon 28-2 024 Cobalamin (Vitamin B12) [Mass/Vol] 740 pg/mL Normal 232-1245 [facility] Comment on above: Order Comment: Speci men Type: BLOOD SPECIMEN Ordering Facility: [facility] Address: [address] [place] [address] Performed By: #### 2 276-4, 2131-9, 24499-1, 2283-8 #### [facility] CLIA [id number] [address] [place] [address] [place] CTA CHESTon 11-18-[address] CTA CHEST Clinical history: Pulmonary embolism. Vascular mass. Technique: CT angiography of the pulmonary arteries was performed following the intravenous administration of contrast material. Multidetector CT angiogram performed through the pulmonary arteries without complication, including source images and maximum intensity projection 3-D images displayed and reviewed on a PACS workstation by the radiologist. Automated exposure control was utilized. Comparison: 11/23/2022 Findings: The bilateral lower lobe pulmonary emboli seen on the previous examination are no longer demonstrated. Currently, no acute pulmonary emboli are seen. The thoracic aorta is normal in caliber throughout its course. No hilar or mediastinal masses or adenopathy are seen. The right lower lobe atelectasis seen on the previous examination is no longer demonstrated. There is minimal left basilar atelectasis. The lung chan are otherwise clear for an active process. Impression: Normal CTA chest. Resolution of the bilateral lower lobe pulmonary emboli described on the previous examination dated 11/23/2022. All CT scans at this facility use dose modulation, iterative reconstruction, and/or weight based dosing when appropriate to reduce radiation dose to as low as reasonably achievable 2 Finalized by Katya Perry MD on 11/18/2023 10:30 AM Normal [facility] XR CHEST 2 VWSon 11-15-2023 XR CHEST 2 VWS XR CHEST 2 VWS PA and lateral chest: HISTORY: Preoperative exam. Anesthesia clearance. 2 views of the chest were obtained. Cardiac and mediastinal contours are within normal limits. Lungs are clear. There is no vascular congestion, effusion, or pneumothorax. Osseous structures appear intact. IMPRESSION: No acute findings. 4 Finalized by Tarun Rodríguez MD on 11/15/2023 9:26 AM Normal [facility] APTTon 11-09-2023 aPTT Coag (PPP) [Time] 30 s [facility] Comment on above: NEW REFERENCE RANGE BASIC METABOLIC PANLon 11-08 Anion gap [Moles/Vol] 9 mmol/L Normal 5-15 [facility] Comment on above: Performed By: #### P INR, 15207-9 #### [facility] ([id number]) [address] [place] [address] #### BMP #### [facility] ([id number]) [address], [address] [place] [address] Calcium [Mass/Vol] 8.8 mg/dL Normal 8.5-10.5 [facility] Comment on above: Performed By: #### P INR, 73594-3 #### [facility] ([id number]) [address] [place] [address] #### BMP #### [facility] ([id number]) [address], [address] [place] [address] Chloride [Moles/Vol] 103 mmol/L Normal 98-109 [facility] Comment on above: Performed By: #### P INR, 35456-5 #### [facility] ([id number]) [address] [place] [address] #### BMP #### [facility] ([id number]) [address] [place] [address] CO2 [Moles/Vol] 27 mmol/L Normal 22-32 [facility] Comment on above: Performed By: #### P INR, 03932-6 #### [facility] ([id number]) [address] [place] [address] #### BMP #### [facility] ([id number]) [address] [place] [address] Creatinine [Mass/Vol] 0.70 mg/dL Normal 0.40-1.00 [facility] Comment on above: Result Comment: METH OD TRACEABLE TO IDMS STANDARD Performed By: #### P INR, 39101-7 #### [facility] ([id number]) [address] [place] [address] #### BMP #### [facility] ([id number]) [address], [address] [place] [address] eGFR (CKD-EPI) NON-RACE DEPENDENT >90 Normal >59 [facility] Comment on above: Result Comment: Reported eGFR is based on the CKD-EPI 2020 equation that does not use a race coefficient. Performed By: #### P INR, 43370-9 #### [facility] ([id number]) [address] [place] [address] #### BMP #### [facility] ([id number]) [address] [place] [address] Glucose [Mass/Vol] 116 mg/dL High 65-99 [facility] Comment on above: Performed By: #### P INR, 69930-8 #### [facility] ([id number]) [address] [place] [address] #### BMP #### [facility] ([id number]) [address] [place] [address] Potassium [Moles/Vol] 3.9 mmol/L Normal 3.5-5.0 [facility] Comment on above: Performed By: #### P INR, 49742-0 #### [facility] ([id number]) [address] [place] [address] #### BMP #### [facility] ([id number]) [address] [place] [address] Sodium [Moles/Vol] 139 mmol/L Normal 134-146 [facility] Comment on above: Performed By: #### P INR, 38383-0 #### [facility] ([id number]) [address] [place] [address] #### BMP #### [facility] ([id number]) [address] [place] [address] Urea nitrogen [Mass/Vol] 13 mg/dL Normal 5-23 [facility] Comment on above: Performed By: #### P INR, 58557-7 #### [facility] ([id number]) [address] [place] [address] #### BMP #### [facility] ([id number]) [address] [place] [address] Basic Metabolic Panelon 03-0 Anion gap [Moles/Vol] 9 mmol/L 5 - 15 mmol/L [facility] Calcium [Mass/Vol] 8.8 mg/dL 8.5 - 10. 5 mg/dL [facility] Chloride [Moles/Vol] 103 mmol/L 98 - 10 9 mmol/L [facility] CO2 [Moles/Vol] 27 mmol/L 22 - 32 mmol/L [facility] Creatinine [Mass/Vol] 0.70 mg/dL 0.40 - 1.00 mg/dL [facility] Comment on above: METHOD TRACEABLE TO IDUT STANDARD eGFR (CKD-EPI)non-race dependent - PINF [facility] Comment on above: Reported eGFR is based on the CKD-EPI 2020 equation that does not use a race coefficient. Glucose [Mass/Vol] 116 mg/dL High 65 - 99 mg/dL [facility] Interpretation and review of laboratory results Abnormal [facility] Potassium [Moles/Vol] 3.9 mmol/L 3.5 - 5.0 mmol/L [facility] Sodium [Moles/Vol] 139 mmol/L 134 - 146 mmol/L [facility] Urea nitrogen [Mass/Vol] 13 mg/dL 5 - 23 mg/dL [facility] ECG 12 leadon 11-09-2023 TRACEMASTERVUE [facility] No Panel Informationon 11-08 [facility] PROTIME AND INRon 11-09-2023 INR Coag (PPP) [Relative time] 1.0 {INR} Normal 0.8-1.1 [facility] Comment on above: Performed By: #### P INR, 34186-6 #### [facility] ([id number]) [address] [place] [address] #### BMP #### [facility] ([id number]) [address] [place] [address] PT Coag (PPP) [Time] 12.2 s Normal 9.8-13.2 [facility] Comment on above: Result Comment: NEW REFERENCE RANGE Performed By: #### P INR, 76069-1 #### [facility] ([id number]) [address] [place] [address] #### BMP #### [facility] ([id number]) [address], [address] [place] [address] Protime & INRon 11-09-2023 INR Coag (PPP) [Relative time] 1.0 {INR} [facility] PT Coag (PPP) [Time] 12.2 s [facility] Comment on above: NEW REFERENCE RANGE aPTT Coag (PPP) [Time]on aPTT Coag (Bld) [Time] 30 s Normal 26-37 [facility] Comment on above: Result Comment: NEW REFERENCE RANGE Performed By: #### P INR, 86915-8 #### [facility] ([id number]) [address] [place] [address], [place] [address] #### BMP #### [facility] ([id number]) [address], [address] [place] [address] C. difficile toxin genes EVARISTO +probe Ql (Stl)on 11-08-2023 [facility] Gastrointestinal pathogens D NA and RNA panel EVARISTO+non-probe (Stl)on 11-08-2023 Adenovirus 40+41 DNA EVARISTO+non-probe Ql (Stl) Not detected Not Detected^Not Detected [facility] Astrovirus subtypes 1-8 RNA EVARISTO+non-probe Ql (Stl) Not detected Not Detected^Not Detected [facility] C. cayetanensis DNA EVARISTO+non-probe Ql (Stl) Not detected Not Detected^Not Detected [facility] C. coli+jejuni+upsaliens is DNA EVARISTO+non-probe Ql (Stl) Not detected Not Detected^Not Detected [facility] Cryptosporidium sp DNA EVARISTO+non-probe Ql (Stl) Not detected Not Detected^Not Detected [facility] E. coli enteroaggregative Jeevan plasmid aggR+aatA genes EVARISTO+non-probe Ql (Stl) Not detected Not Detected^Not Detected [facility] E. coli enteropathogenic eae gene EVARISTO+non-probe Ql (Stl) Not detected Not Detected^Not Detected [facility] E. coli enterotoxigenic ltA+st1a+st1b genes EVARISTO+non-probe Ql (Stl) Not detected Not Detected^Not Detected [facility] E. coli stx1+stx2 genes EVARISTO+non-probe Ql (Stl) Not detected Not Detected^Not Detected [facility] E. histolytica DNA EVARISTO+non-probe Ql (Stl) Not detected Not Detected^Not Detected [facility] G. lamblia DNA EVARISTO+non-probe Ql (Stl) Not detected Not Detected^Not Detected [facility] Norovirus genogroup I+II RNA EVARISTO+non-probe Ql (Stl) Not detected Not Detected^Not Detected [facility] P. shigelloides DNA EVARISTO+non-probe Ql (Stl) Not detected Not Detected^Not Detected [facility] Rotavirus A RNA EVARISTO+non-probe Ql (Stl) Not detected Not Detected^Not Detected [facility] S. enterica+bongori DNA EVARISTO+non-probe Ql (Stl) Not detected Not Detected^Not Detected [facility] Sapovirus genogroups I+II+IV+V RNA EVARISTO+non-probe Ql (Stl) Not detected Not Detected^Not Detected [facility] Shigella species+EIEC invasion plasmid antigen H ipaH gene EVARISTO+non-probe Ql (Stl) Not detected Not Detected^Not Detected [facility] Specimen source Nom (Body fld) STOOL [facility] V. cholerae DNA EVARISTO+non-probe Ql (Stl) Not detected Not Detected^Not Detected [facility] V. cholerae+parahaemolyt icus+vulnificus DNA EVARISTO+non-probe Ql (Stl) Not detected Not Detected^Not Detected [facility] Y. enterocolitica DNA EVARISTO+non-probe Ql (Stl) Not detected Not Detected^Not Detected [facility] - Microbiology an d Antimicrobial susceptibilityon 11-08-2023 C. difficile toxin genes EVARISTO+probe Ql (Stl) Negative Presumptive Negative^Pres umptive Negative [facility] C DIFFICILE BY PCRon 024 C. difficile toxin genes EVARISTO+probe Ql (Stl) TOXIGENIC C DIFF Negative (qualifier value) 027 NAP1 Negative (qualifier value) Normal PRNEG [facility] Comment on above: Performed By: #### 5 4067-4, 98093-3, 89629-1 #### [facility] ([id number]) [address] [place] [address], [address] [place] [address] Calprotectin (Stl) [Mass/Mas s]on 11-07-2023 CALPROTECTIN STOOL See Below Normal [facility] Comment on above: Result Comment: NOTE TEST RESULT FLAG UNIT REF.RANGE ------ CALPROTECTIN, FECAL QUANTITATIVE 11.9 ug/g <50 CALPROTECTIN, FECAL INTERP Normal Normal On January 23, 2023, [facility] [employer] implemented a new fecal calprotectin method, the [employer] Calprotectin assay. For assistance with interpretation of results in patients undergoing serial monitoring, contact Client Services at [phone] or [phone] to discuss options, preferably within 7 days of issuing this report. Interpretation: <50.0 ug/g: Normal 50.0 ug/g - 120.0 ug/g: Borderline elevated. Re-evaluation in 4-6 weeks is recommended if clinically indicated. >120.0 ug/g: Elevated Test Performed By: [facility] [employer] [address] [place] [address] Cable Installer Repairer: John Kaiser III, M.D. CLLUCY #[id number] Performed By: #### 5 4067-4, 53962-5, 42976-0 #### [facility] ([id number]) [address] [place] [address], [address] [place] [address] GI PANELon 11-07-2023 Gastrointestinal pathogens DNA and RNA panel EVARISTO+non-probe (Stl) SPECIMEN SOURCE STOOL CAMPYLOBACTER Not detected (qualifier value) PLESIOMONAS Not detected (qualifier value) SALMONELLA Not detected (qualifier value) VIBRIO Not detected (qualifier value) VIBRIO CHOLERAE Not detected (qualifier value) Y. ENTEROCOLITICA Not detected (qualifier value) AGGREGATIVE E COLI Not detected (qualifier value) PATHOGENIC E COLI Not detected (qualifier value) TOXIGENIC E COLI Not detected (qualifier value) SHIGA TOXIN E COLI Not detected (qualifier value) SHIGELLA-E COLI Not detected (qualifier value) CRYPTOSPORIDIUM Not detected (qualifier value) CYCLOSPORA Not detected (qualifier value) E HISTOLYTICA Not detected (qualifier value) GIARDIA LAMBLIA Not detected (qualifier value) ADENOVIRUS Not detected (qualifier value) ASTROVIRUS Not detected (qualifier value) NOROVIRUS Not detected (qualifier value) ROTAVIRUS A Not detected (qualifier value) SAPOVIRUS Not detected (qualifier value) Normal NDET [facility] Comment on above: Performed By: #### 5 4067-4, 24998-7, 30380-8 #### [facility] ([id number]) [address] [place] [address], [address] [place] [address] POCT Glucose Fingerstickon 0 10-08-2023 Glucose [Mass/Vol] 119 mg/dL Abnormal 65 - 99 mg/dL [facility] Interpretation and review of laboratory results Abnormal [facility] CBC AUTO DIFFon 11-22-2022 BASO # 0.0 103/ul Normal 0.0-0.1 [facility] Comment on above: Performed By: #### H H #### [facility] [address] [place] [address] Dr. Ron Sims Basophils/100 WBC (Bld) 0.3 % Normal 0.2-2.0 [facility] Comment on above: Performed By: #### H H #### [facility] [address] [address] [address] Ron Sims EO # 0.1 103/ul Normal 0.0-0.7 [facility] Comment on above: Performed By: #### H H #### [facility] [address] [place] [address] Dr. Ron Sims Eosinophils/100 WBC (Bld) 0.8 % Critically low 0.9-7.0 [facility] Comment on above: Performed By: #### H H #### [facility] [address] [address] [address] Ron Sims Erythrocyte distribution width (RBC) [Ratio] 13.5 % Normal 11.0-15.0 [facility] Comment on above: Performed By: #### H H #### [facility] [address] [address] [address] Ron Sims Hematocrit (Bld) [Volume fraction] 42.3 % Normal 36.0-48.0 [facility] Comment on above: Performed By: #### H H #### [facility] [address] [address] [address] Ron Sims Hemoglobin (Bld) [Mass/Vol] 13.9 g/dL Normal 12.0-16.0 [facility] Comment on above: Performed By: #### H H #### [facility] [address] [address] [address] Ron Sims IG # 0.08 10e3/ul Critically high 0.00-0.[address] [facility] Comment on above: Performed By: #### H H #### [facility] [address] [address] [address] Ron Sims IG % 0.9 % Critically high 0.0-0.5 [facility] Comment on above: Performed By: #### H H #### [facility] [address] [address] [address] Ron Sims LYMPH # 0.8 103/ul Critically low 1.2-3.8 [facility] Comment on above: Performed By: #### H H #### [facility] [address] [address] [address] Ron Sims Lymphocytes/100 WBC (Bld) 9.4 % Critically low 20.5-60.0 [facility] Comment on above: Performed By: #### H H #### [facility] [address] [address] [address] Ron Sims MANUAL DIFF REQ NO Normal [facility] Comment on above: Performed By: #### H H #### [facility] [address] [address] [address] Ron Sims MCH (RBC) [Entitic mass] 26.8 pg Normal 26.7-34.0 [facility] Comment on above: Performed By: #### H H #### [facility] [address] [address] [address] Ron Sims MCHC (RBC) [Mass/Vol] 32.9 g/dL Normal 29.9-35.2 [facility] Comment on above: Performed By: #### H H #### [facility] [address] [address] [address] Ron Sims MCV (RBC) [Entitic vol] 81.7 fL Normal 81.0-99.0 [facility] Comment on above: Performed By: #### H H #### [facility] [address] [place] [address] Dr. Ron Sims MONO # 0.6 103/ul Normal 0.3-0.8 [facility] Comment on above: Performed By: #### H H #### [facility] [address] [place] [address] Dr. Ron Sims Monocytes/100 WBC (Bld) 6.3 % Normal 1.7-12.0 [facility] Comment on above: Performed By: #### H H #### [facility] [address] [place] [address] Dr. Ron Sims NEUT # 7.2 103/ul Critically high 1.4-6.5 [facility] Comment on above: Performed By: #### H H #### [facility] [address] [place] [address] Dr. Ron Sims Neutrophils/100 WBC (Bld) 82.3 % Critically high 43.0-75.0 [facility] Comment on above: Performed By: #### H H #### [facility] [address] [place] [address] Dr. Ron Sims Platelet mean volume (Bld) [Entitic vol] 8.6 fL Critically low 9.5-13.5 [facility] Comment on above: Performed By: #### H H #### [facility] [address] [place], [place] [address] Dr. Ron Sims PLT 323 103/ul Normal 150-450 [facility] Comment on above: Performed By: #### H H #### [facility] [id number] Ron Sims RBC 5.18 106/ul Normal 4.20-5.40 [facility] Comment on above: Performed By: #### H H #### [facility] [address] [address] [address] Ron Sims WBC 8.8 103/ul Normal 4.0-11.0 [facility] Comment on above: Performed By: #### H H #### [facility] [address] [address] [address] Ron Sims CULTURE BLOODon 11-22-2022 Microscopic examination of blood, culture Culture Observations: NO GROWTH AT 5 DAYS. Normal [facility] Comment on above: Performed By: #### H IV12 #### [facility] [address] [address] [address] Ron Sims ECHO LIMITED STUDYon 023 ECHO LIMITED STUDY Patient: MARGARET PRIETO Exam Date: 11/22/2022 : 1990 Gender:F Ordering : DR NATHAN MAYFIELD D.O. Admission #: [id number] Family : Order #: [id number] CLICK HERE TO VIEW EXAM ECHOCARDIOGRAM REPORT [...] Aldridge M.D. on 11/22/2022 at 14:54 Normal [facility] LACTATE/LACTIC ACIDon 2022 Lactate [Moles/Vol] 1.5 mmol/L Normal 0.4-2.0 [facility] Comment on above: Performed By: #### L ACT #### [facility] [address] [address] [address] Ron Sims Lactate [Moles/Vol] 2.6 mmol/L Critically high 0.4-2.0 [facility] Comment on above: Performed By: #### L ACT #### [facility] [address] [address] [address] Ron Sims PROF CHEM 8 (BAS METB)on Anion gap [Moles/Vol] 16.8 mmol/L Normal [facility] Comment on above: Performed By: #### H H #### [facility] [address] [address] [address] Ron Sims Calcium [Mass/Vol] 8.9 mg/dL Normal 8.5-10.1 [facility] Comment on above: Performed By: #### H H #### [facility] [address] [address] [address] Ron Sims Chloride [Moles/Vol] 94 mmol/L Critically low 98-107 [facility] Comment on above: Performed By: #### H H #### [facility] [address] [place] [address] Dr. Ron Sims CO2 [Moles/Vol] 25.3 mmol/L Normal 21.0-32.0 [facility] Comment on above: Performed By: #### H H #### [facility] [address] [place] [address] Dr. Ron Sims Creatinine [Mass/Vol] 0.88 mg/dL Normal 0.55-1.02 [facility] Comment on above: Performed By: #### H H #### [facility] [address] [place] [address] Dr. Ron Sims EGFR-AF BERMUDIAN >60 Normal >=60 [facility] Comment on above: Performed By: #### H H #### [facility] [address] [address] [address] Ron Sims EGFR-NON AF BERMUDIAN >60 Normal >=60 [facility] Comment on above: Performed By: #### H H #### [facility] [address] [address] [address] Ron Sims Glucose [Mass/Vol] 112 mg/dL Critically high 74-106 [facility] Comment on above: Performed By: #### H H #### [facility] [address] [place] [address] Dr. Ron Sims Potassium [Moles/Vol] 3.1 mmol/L Critically low 3.5-5.1 [facility] Comment on above: Performed By: #### H H #### [facility] [address] [place] [address] Dr. Ron Sims Sodium [Moles/Vol] 133 mmol/L Critically low 136-145 [facility] Comment on above: Performed By: #### H H #### [facility] [address] [place] [address] Dr. Ron Sims Urea nitrogen [Mass/Vol] 12.0 mg/dL Normal 7.0-18.0 [facility] Comment on above: Performed By: #### H H #### [facility] [address] [place] [address] Dr. Ron Sims Urea nitrogen/Creatinine [Mass ratio] 13.6 mg/mg Normal [facility] Comment on above: Performed By: #### H H #### [facility] [address] [place] [address] Dr. Ron Sims PROTIMEon 11-22-2022 INR Coag (PPP) [Relative time] 2.20 {INR} Normal [facility] Comment on above: Performed By: #### P T, PTT #### [facility] [address] [place] [address] Dr. Ron Sims INR GUIDELINES SEE BELOW Normal [facility] Comment on above: Result Comment: MICHELINE RED INR: 2.0 - 3.0 CONDITIONS NOT LISTED BELOW 2.5 - 3.5 FOR PROSTHETIC HEART VALVE REPLACEMENT 2.5 - 3.5 RECURRENT THROMBOSIS Performed By: #### P T, PTT #### [facility] [address] [place] [address] Dr. Ron Sims PT Coag (PPP) [Time] 22.3 s Critically high 9.0-11.6 [facility] Comment on above: Performed By: #### P T, PTT #### [facility] [address] [place] [address] Dr. Ron Sims PTTon 11-22-2022 aPTT Coag (Bld) [Time] 48.2 s Critically high 22.3-36.2 [facility] Comment on above: Performed By: #### P T, PTT #### [facility] [address] [address] [address] Ron Sims XR CHEST 1 Von 11-22-2022 XR CHEST 1 V EXAMINATION: XR CHEST 1 V HISTORY: SHORTNESS OF BREATH COMPARISON: [...] by: SANIA TIDWELL Date: 2022-11-22 12:16 Normal [facility] POLINA EIA W/REFLEX 9 BIOMARKER Son 10-24-2022 POLINA Direct Negative Normal Negative [facility] Comment on above: Performed By: #### H IV12 #### [facility] [address] [address] [address] Ron Sims HEPATITIS C AB CASCADE TO QU ANT PCR GENOon 10-24-2022 HCV AB Non-Reactive Normal Non Reactive [facility] Comment on above: Performed By: #### H EPCASC #### [facility] [address] [address] [address] Ron Sims Interpretation: Comment Normal [facility] Comment on above: Result Comment: Not infected with HCV unless early or acute infection is suspected (which may be delayed in an immunocompromised individual), or other evidence exists to indicate HCV infection. Performed By: #### H EPCASC #### [facility] [address] [address] [address] Ron Sims HIV 1 AND 2 WITH REFLEXon HIV Screen 4th Generation wRfx Non-Reactive Normal Non Reactive [facility] Comment on above: Result Comment: HIV Negative HIV-1/HIV-2 antibodies and HIV-1 p24 antigen were NOT detected. There is no laboratory evidence of HIV infection. Performed By: #### H IV12 #### [facility] [address] [place] [address] Dr. Ron Sims CPKon 10-23-2022 CK [Catalytic activity/Vol] 36 U/L Normal 26-192 [facility] Comment on above: Performed By: #### H H #### [facility] [address] [place] [address] Dr. Ron Sims GLYCOHEMOGLOBIN A1Con 2022 ADA RECOMMENDATION SEE BELOW Normal [facility] Comment on above: Result Comment: ADA RECOMMENDED LIMIT 4.0 - 6.0 ADA THERAPEUTIC TARGET < 7.0 ACTION SUGGESTED > 7.0 Performed By: #### A 1C #### [facility] [address] [place] [address] Dr. Ron Sims Glucose [Mass/Vol] 111 mg/dL Normal [facility] Comment on above: Performed By: #### A 1C #### [facility] [address] [place] [address] Dr. Ron Sims HbA1c (Bld) [Mass fraction] 5.5 % Normal 4.5-6.2 [facility] Comment on above: Performed By: #### A 1C #### [facility] [address] [place] [address] Dr. Ron Sims HEMOGRAM AND PLATELon 2022 Hematocrit (Bld) [Volume fraction] 38.4 % Normal 36.0-48.0 [facility] Comment on above: Performed By: #### H H #### [facility] [address] [place] [address] Dr. Ron Sims Hemoglobin (Bld) [Mass/Vol] 12.6 g/dL Normal 12.0-16.0 [facility] Comment on above: Performed By: #### H H #### [facility] [address] [place] [address] Dr. Ron Sims MCH (RBC) [Entitic mass] 27.0 pg Normal 26.7-34.0 [facility] Comment on above: Performed By: #### H H #### [facility] [address] [place] [address] Dr. Ron Sims MCHC (RBC) [Mass/Vol] 32.8 g/dL Normal 29.9-35.2 [facility] Comment on above: Performed By: #### H H #### [facility] [address] [place] [address] Dr. Ron Sims MCV (RBC) [Entitic vol] 82.2 fL Normal 81.0-99.0 [facility] Comment on above: Performed By: #### H H #### [facility] [address] [place] [address] Dr. Ron Sims PLT 337 103/ul Normal 150-450 [facility] Comment on above: Performed By: #### H H #### [facility] [address] [place] [address] Dr. Ron Sims RBC 4.67 106/ul Normal 4.20-5.40 [facility] Comment on above: Performed By: #### H H #### [facility] [address] [place] [address] Dr. Ron Sims WBC 9.7 103/ul Normal 4.0-11.0 [facility] Comment on above: Performed By: #### H H #### [facility] [address] [place] [address] Dr. Ron Sims MYOGLOBINon 10-23-2022 NOEMI 51 ng/mL Normal 9-82 [facility] Comment on above: Performed By: #### H H #### [facility] [address] [place] [address] Dr. Rno Sims PROF 14(COMP METB)on 023 Albumin [Mass/Vol] 3.1 g/dL Critically low 3.4-5.0 [facility] Comment on above: Performed By: #### P T, PTT #### [facility] [address] [place] [address] Dr. Ron Sims Albumin/Globulin [Mass ratio] 0.7 {ratio} Normal [facility] Comment on above: Performed By: #### P T, PTT #### [facility] [address] [place] [address] Dr. Ron Sims ALP [Catalytic activity/Vol] 79 U/L Normal 46-116 [facility] Comment on above: Performed By: #### P T, PTT #### [facility] [address] [address] [address] Ron Sims ALT [Catalytic activity/Vol] 28 U/L Normal 14-59 [facility] Comment on above: Performed By: #### P T, PTT #### [facility] [address] [address] [address] Ron Sims Anion gap [Moles/Vol] 12.2 mmol/L Normal [facility] Comment on above: Performed By: #### P T, PTT #### [facility] [address] [place] [address] Dr. Ron Sims AST [Catalytic activity/Vol] 17 U/L Normal 15-37 [facility] Comment on above: Performed By: #### P T, PTT #### [facility] [address] [address] [address] Ron Sims Bilirubin [Mass/Vol] 0.4 mg/dL Normal 0.2-1.0 [facility] Comment on above: Performed By: #### P T, PTT #### [facility] [address] [place] [address] Dr. Ron Sims Calcium [Mass/Vol] 9.0 mg/dL Normal 8.5-10.1 [facility] Comment on above: Performed By: #### P T, PTT #### [facility] [address] [address] [address] Ron Sims Chloride [Moles/Vol] 101 mmol/L Normal 98-107 [facility] Comment on above: Performed By: #### P T, PTT #### [facility] [address] [address] [address] Ron Sims CO2 [Moles/Vol] 28.5 mmol/L Normal 21.0-32.0 [facility] Comment on above: Performed By: #### P T, PTT #### [facility] [address] [place] [address] Dr. Ron Sims Creatinine [Mass/Vol] 0.88 mg/dL Normal 0.55-1.02 [facility] Comment on above: Performed By: #### P T, PTT #### [facility] [address] [place] [address] Dr. Ron Sims EGFR-AF BERMUDIAN >60 Normal >=60 [facility] Comment on above: Performed By: #### P T, PTT #### [facility] [address] [address] [address] Ron Sims EGFR-NON AF BERMUDIAN >60 Normal >=60 [facility] Comment on above: Performed By: #### P T, PTT #### [facility] [address] [place] [address] Dr. Ron Sims Globulin (S) [Mass/Vol] 4.6 g/dL Normal [facility] Comment on above: Performed By: #### P T, PTT #### [facility] [address] [place] [address] Dr. Ron Sims Glucose [Mass/Vol] 96 mg/dL Normal 74-106 [facility] Comment on above: Performed By: #### P T, PTT #### [facility] [address] [place] [address] Dr. Ron Sims Potassium [Moles/Vol] 3.7 mmol/L Normal 3.5-5.1 [facility] Comment on above: Performed By: #### P T, PTT #### [facility] [address] [place] [address] Dr. Ron Sims Protein [Mass/Vol] 7.7 g/dL Normal 6.4-8.2 [facility] Comment on above: Performed By: #### P T, PTT #### [facility] [address] [place] [address] Dr. Ron Sims Sodium [Moles/Vol] 138 mmol/L Normal 136-145 [facility] Comment on above: Performed By: #### P T, PTT #### [facility] [address] [place] [address] Dr. Ron Sims Urea nitrogen [Mass/Vol] 12.0 mg/dL Normal 7.0-18.0 [facility] Comment on above: Performed By: #### P T, PTT #### [facility] [address] [place] [address] Dr. Ron Sims Urea nitrogen/Creatinine [Mass ratio] 13.6 mg/mg Normal [facility] Comment on above: Performed By: #### P T, PTT #### [facility] [address] [place] [address] Dr. Ron Sims TSHon 10-23-2022 TSH 2.891 uIU/mL Normal 0.358-3.740 [facility] Comment on above: Performed By: #### P T, PTT #### [facility] [address] [place] [address] Dr. Ron Sims VITAMIN B12on 10-23-2022 Cobalamin (Vitamin B12) [Mass/Vol] 618.0 pg/mL Normal 193.0-986.0 [facility] Comment on above: Performed By: #### H H #### [facility] [address] [place] [address] Dr. Ron Sims VITAMIN D 25 OHon 10-23-2022 VIT D 25-OH 18.0 ng/mL Normal [facility] Comment on above: Performed By: #### H H #### [facility] [address] [place] [address] Dr. Ron Sims VIT D RANGES SEE BELOW Normal [facility] Comment on above: Result Comment: <20 ng/mL Vit D deficient 20 - <30 ng/mL Vit D insufficient 30 - 100 ng/mL Vit D sufficient >100 ng/mL Potential Toxicity Performed By: #### H H #### [facility] [address] [place] [address] Dr. Ron Sims CBC AUTO DIFFon 09-26-2022 BASO # 0.0 103/ul Normal 0.0-0.1 [facility] Comment on above: Performed By: #### H H #### [facility] [address] [place] [address] Dr. Ron Sims Basophils/100 WBC (Bld) 0.5 % Normal 0.2-2.0 [facility] Comment on above: Performed By: #### H H #### [facility] [address] [place] [address] Dr. Ron Sims EO # 0.1 103/ul Normal 0.0-0.7 [facility] Comment on above: Performed By: #### H H #### [facility] [address] [place] [address] Dr. Ron Sims Eosinophils/100 WBC (Bld) 1.5 % Normal 0.9-7.0 [facility] Comment on above: Performed By: #### H H #### [facility] [address] [place] [address] Dr. Ron Sims Erythrocyte distribution width (RBC) [Ratio] 13.3 % Normal 11.0-15.0 [facility] Comment on above: Performed By: #### H H #### [facility] [address] [place] [address] Dr. Ron Sims Hematocrit (Bld) [Volume fraction] 41.3 % Normal 36.0-48.0 [facility] Comment on above: Performed By: #### H H #### [facility] [address] [place] [address] Dr. Ron Sims Hemoglobin (Bld) [Mass/Vol] 13.6 g/dL Normal 12.0-16.0 [facility] Comment on above: Performed By: #### H H #### [facility] [address] [place] [address] Dr. Ron Sims IG # 0.03 10e3/ul Normal 0.00-0.03 [facility] Comment on above: Performed By: #### H H #### [facility] [address] [place] [address] Dr. Ron Sims IG % 0.3 % Normal 0.0-0.5 [facility] Comment on above: Performed By: #### H H #### [facility] [address] [place] [address] Dr. Ron Sims LYMPH # 1.5 103/ul Normal 1.2-3.8 [facility] Comment on above: Performed By: #### H H #### [facility] [address] [place] [address] Dr. Ron Sims Lymphocytes/100 WBC (Bld) 16.9 % Critically low 20.5-60.0 [facility] Comment on above: Performed By: #### H H #### [facility] [address] [place] [address] Dr. Ron Sims MANUAL DIFF REQ NO Normal [facility] Comment on above: Performed By: #### H H #### [facility] [address] [place] [address] Dr. Ron Sims MCH (RBC) [Entitic mass] 27.7 pg Normal 26.7-34.0 [facility] Comment on above: Performed By: #### H H #### [facility] [address] [place] [address] Dr. Ron Sims MCHC (RBC) [Mass/Vol] 32.9 g/dL Normal 29.9-35.2 [facility] Comment on above: Performed By: #### H H #### [facility] [address] [place] [address] Dr. Ron Sims MCV (RBC) [Entitic vol] 84.1 fL Normal 81.0-99.0 [facility] Comment on above: Performed By: #### H H #### [facility] [address] [place] [address] Dr. Ron Sims MONO # 0.5 103/ul Normal 0.3-0.8 [facility] Comment on above: Performed By: #### H H #### [facility] [address] [place] [address] Dr. Ron Sims Monocytes/100 WBC (Bld) 5.4 % Normal 1.7-12.0 [facility] Comment on above: Performed By: #### H H #### [facility] [address] [place] [address] Dr. Ron Sims NEUT # 6.5 103/ul Normal 1.4-6.5 [facility] Comment on above: Performed By: #### H H #### [facility] [address] [address] [address] Ron Sims Neutrophils/100 WBC (Bld) 75.4 % Critically high 43.0-75.0 [facility] Comment on above: Performed By: #### H H #### [facility] [address] [place] [address] Dr. Ron Sims Platelet mean volume (Bld) [Entitic vol] 9.0 fL Critically low 9.5-13.5 [facility] Comment on above: Performed By: #### H H #### [facility] [address] [place] [address] Dr. Ron Sims PLT 261 103/ul Normal 150-450 [facility] Comment on above: Performed By: #### H H #### [facility] [address] [place] [address] Dr. Ron Sims RBC 4.91 106/ul Normal 4.20-5.40 [facility] Comment on above: Performed By: #### H H #### [facility] [address] [place] [address] Dr. Ron Sims WBC 8.7 103/ul Normal 4.0-11.0 [facility] Comment on above: Performed By: #### H H #### [facility] [address] [place] [address] Dr. Ron Sims CRPon 09-26-2022 CRP 0.4 mg/dL Normal <=1.0 [facility] Comment on above: Performed By: #### P T, PTT #### [facility] [address] [place] [address] HEAD WO CONon [...] by: DEREK MIRELES Date: 2022-09-26 20:09 Normal [facility] CTA HEAD WO W CONon 09-26-19 23 CTA HEAD WO W CON EXAMINATION: CTA HEAD WO W CON, CTA NECK WO W [...] by: DEREK MIRELES Date: 2022-09-26 21:26 Normal [facility] PROF CHEM 8 (BAS METB)on Anion gap [Moles/Vol] 11.2 mmol/L Normal [facility] Comment on above: Performed By: #### P T, PTT #### [facility] [address] [place] [address] Dr. Ron Sims Calcium [Mass/Vol] 9.1 mg/dL Normal 8.5-10.1 [facility] Comment on above: Performed By: #### P T, PTT #### [facility] [address] [address] [address] Ron Sims Chloride [Moles/Vol] 101 mmol/L Normal 98-107 [facility] Comment on above: Performed By: #### P T, PTT #### [facility] [address] [address] [address] Ron Sims CO2 [Moles/Vol] 28.0 mmol/L Normal 21.0-32.0 [facility] Comment on above: Performed By: #### P T, PTT #### [facility] [address] [address] [address] Ron Sims Creatinine [Mass/Vol] 0.85 mg/dL Normal 0.55-1.02 [facility] Comment on above: Performed By: #### P T, PTT #### [facility] [address] [place] [address] Dr. Ron Sims EGFR-AF BERMUDIAN >60 Normal >=60 [facility] Comment on above: Performed By: #### P T, PTT #### [facility] [address] [address] [address] Ron Sims EGFR-NON AF BERMUDIAN >60 Normal >=60 [facility] Comment on above: Performed By: #### P T, PTT #### [facility] [address] [place] [address] Dr. Ron Sims Glucose [Mass/Vol] 106 mg/dL Normal 74-106 [facility] Comment on above: Performed By: #### P T, PTT #### [facility] [address] [address] [address] Ron Sims Potassium [Moles/Vol] 4.2 mmol/L Normal 3.5-5.1 [facility] Comment on above: Performed By: #### P T, PTT #### [facility] [address] [address] [address] Ron Sims Sodium [Moles/Vol] 136 mmol/L Normal 136-145 [facility] Comment on above: Performed By: #### P T, PTT #### [facility] [address] [address] [address] Ron Sims Urea nitrogen [Mass/Vol] 15.0 mg/dL Normal 7.0-18.0 [facility] Comment on above: Performed By: #### P T, PTT #### [facility] [address] [address] [address] Ron Sims Urea nitrogen/Creatinine [Mass ratio] 17.6 mg/mg Normal [facility] Comment on above: Performed By: #### P T, PTT #### [facility] [address] [address] [address] Ron Sims SED RATE [place] 2022 SED RATE 58 mm/hr Critically high <=20 [facility] Comment on above: Performed By: #### S EDR #### [facility] [address] [place] [address] Dr. Ron Sims PREG HCG QUALon 09-05-2022 , QUAL Negative Normal NEGATIVE [facility] Comment on above: Performed By: #### P REG #### [facility] [address] [place] [address] Dr. Ron Sims ABO and Rh group post transf usion reaction Nom (Bld)Ordered By: John Carlson on 04-11-2022 Microscopic observation Gram stain Nom (Unsp spec) [facility] Aerobic Cultureon 04-10-2022 Aerobic Culture Result Tab Codes Rare Normal Skin Keerthi 2 Days Anaerobic Culture Results No Anaerobes Isolated 3 Days Gram Stain Result No Bacteria Seen PERFORMED BY: [place] [address] PATHOLOGIST PLASMA CUTTING MACHINE OPERATOR JACQUIE CRABTREE M.D. Normal [facility] Comment on above: Performed By: #### A ERC #### [place] [address] [place] HCG ( test) IAsusyi d Ql (U)Ordered By: Katya Vasques on 04-10-2022 HCG ( test) Ql (U) Negative [facility] HCG,Qualitative Serumon HCG,Qualitative Serum Negative Normal [facility] Comment on above: Result Comment: PERF ORMED BY: [place] [address] PATHOLOGIST PLASMA CUTTING MACHINE OPERATOR JACQUIE CRABTREE M.D. Performed By: #### U HCG #### [address] [place] [id number] [facility] COVID-19 FRMCon 04-06-2022 SARS-CoV-2 (COVID-19) RNA EVARISTO+probe Ql (Unsp spec) Negative Normal Negative [facility] Comment on above: Order Comment: Healt hcare Worker?: N Result Comment: Testing for SARS-CoV-2 by RT-PCR This test was developed and its performance characteristics determined by [employer]) and validated at the [facility]. This test has not been FDA [...] is terminated or revoked sooner. PERFORMED BY: [place] [address] PATHOLOGIST PLASMA CUTTING MACHINE OPERATOR JACQUIE CRABTREE M.D. Performed By: #### U HCG #### [facility] [address] [place] [id number] [facility] COVID-19 Positive/NegativeOr dered By: John Carlson on 04-06-2022 SARS-CoV-2 (COVID-19) N gene EVARISTO+probe Ql (Resp) Negative Negative [facility] Comment on above: Testing for SARS-CoV -2 by RT-PCR This test was developed and its performance characteristics determined by [employer] ([employer]) and validated at the [facility]. This test has not been FDA [...] on 03-30-2022 Albumin [Mass/Vol] 3.1 g/dL 3.2-5.5 [facility] Basophils Auto (Bld) [#/Vol] Ordered By: Dominique Garrison on 03-30-2022 Basophils (Bld) [#/Vol] 0.1 10*3/uL 0.0-0.2 [facility] Basophils/100 WBC Auto (Bld) Ordered By: Dominique Garrison on 03-30-2022 Basophils/100 WBC (Bld) 0.6 % . [facility] Blood hemoglobin measurement (mass/volume)Ordered By: Dominique Garrison on 03-30-2022 Hemoglobin (Bld) [Mass/Vol] 13.3 g/dL 11.8-15.4 [facility] Blood leukocytes automated c ount (number/volume)Ordered By: Dominique Garrison on 03-30-2022 WBC (Bld) [#/Vol] 10.7 10*3/uL 4.5-11.0 [facility] Complete Blood Count Auto Di ffon 03-30-2022 Basophils (Bld) [#/Vol] 0.1 10*3/uL Normal 0.0-0.2 [facility] Comment on above: Result Comment: PERF ORMED BY: [facility] [place] [address] PATHOLOGIST PLASMA CUTTING MACHINE OPERATOR JACQUIE CRABTREE M.D. Performed By: #### C BC, CMP, T SPOT TB #### [address] #### HCVCASCADE, HBSAB, HBCAB #### [facility] , Basophils/100 WBC (Bld) 0.6 % Normal . [facility] Comment on above: Performed By: #### C BC, CMP, T SPOT TB #### [address] #### HCVCASCADE, HBSAB, HBCAB #### [facility] , Eosinophils (Bld) [#/Vol] 0.2 10*3/uL Normal 0.0-0.45 [facility] Comment on above: Performed By: #### C BC, CMP, T SPOT TB #### [address] #### HCVCASCADE, HBSAB, HBCAB #### [facility] , Eosinophils/100 WBC (Bld) 1.5 % Normal . [facility] Comment on above: Performed By: #### C BC, CMP, T SPOT TB #### [address] #### HCVCASCADE, HBSAB, HBCAB #### [facility] , Erythrocyte distribution width (RBC) [Ratio] 14.2 % Normal 11.9-15.3 [facility] Comment on above: Performed By: #### C BC, CMP, T SPOT TB #### [address] #### HCVCASCADE, HBSAB, HBCAB #### [facility] , Hematocrit (Bld) [Volume fraction] 39.6 % Normal 34.0-46.4 [facility] Comment on above: Performed By: #### C BC, CMP, T SPOT TB #### [facility] [address] [place] [address] [place] #### HCVCASCADE, HBSAB, HBCAB #### [facility] , Hemoglobin (Bld) [Mass/Vol] 13.3 g/dL Normal 11.8-15.4 [facility] Comment on above: Performed By: #### C BC, CMP, T SPOT TB #### [facility] [address] [place] [address] #### HCVCASCADE, HBSAB, HBCAB #### [facility] , Lymphocytes (Bld) [#/Vol] 1.7 10*3/uL Normal 1.00-4.8 [facility] Comment on above: Performed By: #### C BC, CMP, T SPOT TB #### [address] #### HCVCASCADE, HBSAB, HBCAB #### [facility] , Lymphocytes/100 WBC (Bld) 16.0 % Normal . [facility] Comment on above: Performed By: #### C BC, CMP, T SPOT TB #### [address] #### HCVCASCADE, HBSAB, HBCAB #### [facility] , MCH (RBC) [Entitic mass] 26.8 pg Normal 24.7-34.3 [facility] Comment on above: Performed By: #### C BC, CMP, T SPOT TB #### [address] #### HCVCASCADE, HBSAB, HBCAB #### [facility] , MCV (RBC) [Entitic vol] 79.6 fL Low 80-100 [facility] Comment on above: Performed By: #### C BC, CMP, T SPOT TB #### [place] [address] [place] #### HCVCASCADE, HBSAB, HBCAB #### [facility] , Mean Corpuscular HGB Conc 33.7 g/dL Normal 32.0-35.0 [facility] Comment on above: Performed By: #### C BC, CMP, T SPOT TB #### [facility] [address] [place] [address] #### HCVCASCADE, HBSAB, HBCAB #### [facility] , Monocytes (Bld) [#/Vol] 0.7 10*3/uL Normal 0.0-0.8 [facility] Comment on above: Performed By: #### C BC, CMP, T SPOT TB #### [facility] [address] [place] [address] #### HCVCASCADE, HBSAB, HBCAB #### [facility] , Monocytes/100 WBC (Bld) 6.4 % Normal . [facility] Comment on above: Performed By: #### C BC, CMP, T SPOT TB #### [facility] [address] [place] [address] #### HCVCASCADE, HBSAB, HBCAB #### [facility] , Neutrophils (Bld) [#/Vol] 8.0 10*3/uL High 1.8-7.7 [facility] Comment on above: Performed By: #### C BC, CMP, T SPOT TB #### [facility] [address] [place] [address] [place] #### HCVCASCADE, HBSAB, HBCAB #### [facility] , Neutrophils/100 WBC (Bld) 75.5 % Normal . [facility] Comment on above: Performed By: #### C BC, CMP, T SPOT TB #### [facility] [address] [place] [address] [place] #### HCVCASCADE, HBSAB, HBCAB #### [facility] , Nucleated RBC/100 WBC (Bld) [Ratio] 0.1 % Normal 0-0.5 [facility] Comment on above: Performed By: #### C BC, CMP, T SPOT TB #### [facility] [address] [place] [address] #### HCVCASCADE, HBSAB, HBCAB #### [facility] , Platelet mean volume (Bld) [Entitic vol] 7.3 fL Normal 6.3-10.7 [facility] Comment on above: Performed By: #### C BC, CMP, T SPOT TB #### [address] #### HCVCASCADE, HBSAB, HBCAB #### [facility] , Platelets (Bld) [#/Vol] 376 10*3/uL Normal 150-450 [facility] Comment on above: Performed By: #### C BC, CMP, T SPOT TB #### [address] #### HCVCASCADE, HBSAB, HBCAB #### [facility] , RBC (Bld) [#/Vol] 4.97 10*6/uL Normal 3.60-5.00 [facility] Comment on above: Performed By: #### C BC, CMP, T SPOT TB #### [address] #### HCVCASCADE, HBSAB, HBCAB #### [facility] , WBC (Bld) [#/Vol] 10.7 10*3/uL Normal 4.5-11.0 [facility] Comment on above: Performed By: #### C BC, CMP, T SPOT TB #### [address] #### HCVCASCADE, HBSAB, HBCAB #### [facility] , Comprehensive Metabolic Pane mikey 03-30-2022 Albumin [Mass/Vol] 3.1 g/dL Low 3.2-5.5 [facility] Comment on above: Performed By: #### U HCG #### [facility] [address] [place] [address] Albumin/Globulin [Mass ratio] 0.8 {ratio} Normal [facility] Comment on above: Performed By: #### U HCG #### [address] ALP [Catalytic activity/Vol] 66 U/L Normal 32-92 [facility] Comment on above: Result Comment: PERF ORMED BY: [place] [address] PATHOLOGIST PLASMA CUTTING MACHINE OPERATOR JACQUIE CRABTREE M.D. Performed By: #### U HCG #### [address] ALT [Catalytic activity/Vol] 24 U/L Normal 10-60 [facility] Comment on above: Performed By: #### U HCG #### [facility] [address] [place] [address] AST [Catalytic activity/Vol] 20 U/L Normal 10-42 [facility] Comment on above: Performed By: #### U HCG #### [facility] [address] [place] [address] Bilirubin [Mass/Vol] 0.5 mg/dL Normal 0.3-1.2 [facility] Comment on above: Performed By: #### U HCG #### [facility] [address] [place] [address] [place] Calcium [Mass/Vol] 8.5 mg/dL Normal 8.2-10.2 [facility] Comment on above: Performed By: #### U HCG #### [facility] [address] [place] [address] [place] Chloride [Moles/Vol] 105 mmol/L Normal 95-114 [facility] Comment on above: Performed By: #### U HCG #### [facility] [address] [place] [address] [place] CO2 [Moles/Vol] 23.0 mmol/L Normal 22.0-30.0 [facility] Comment on above: Performed By: #### U HCG #### [address] Creatinine [Mass/Vol] 0.74 mg/dL Normal 0.44-1.03 [facility] Comment on above: Performed By: #### U HCG #### [address] Estimated GFR ( Vinh > 60 Normal [facility] Comment on above: Result Comment: GFR estimated reference range: According to KDOQI guidelines, <60 ml/min/1.73m2 is sufficient to diagnose a patient with chronic kidney disease. Performed By: #### U HCG #### [address] Estimated GFR (Non- Am > 60 Normal [facility] Comment on above: Performed By: #### U HCG #### [address] Globulin (S) [Mass/Vol] 4.1 g/dL Normal [facility] Comment on above: Performed By: #### U HCG #### [address] Glucose [Mass/Vol] 97 mg/dL Normal 70-100 [facility] Comment on above: Result Comment: [place] Glucose Reference Range is dependent on time and content of last meal. Glucose of more than 200 mg/dL in a nonstressed, ambulatory subject supports the diagnosis of Diabetes Mellitus. ADA recommended reference range Performed By: #### U HCG #### [address] Potassium [Moles/Vol] 3.8 mmol/L Normal 3.5-5.1 [facility] Comment on above: Performed By: #### U HCG #### [address] Protein [Mass/Vol] 7.2 g/dL Normal 6.1-7.9 [facility] Comment on above: Performed By: #### U HCG #### [address] [place] [address] [place] Sodium [Moles/Vol] 136 mmol/L Normal 136-146 [facility] Comment on above: Performed By: #### U HCG #### [facility] [address] [place] [address] [place] Urea nitrogen [Mass/Vol] 9 mg/dL Normal 9-23 [facility] Comment on above: Performed By: #### U HCG #### [facility] [address] Creatinine and Glomerular fi ltration rate.predicted panel (S/P/Bld)Ordered By: Dominique Garrison on 03-30-2022 Creatinine [Mass/Vol] 0.74 mg/dL 0.44-1.03 [facility] Eosinophils Auto (Bld) [#/Vo l]Ordered By: Dominique Garrison on 03-30-2022 Eosinophils (Bld) [#/Vol] 0.2 10*3/uL 0.0-0.45 [facility] Eosinophils/100 WBC Auto (Bl d)Ordered By: Dominique Garrison on 03-30-2022 Eosinophils/100 WBC (Bld) 1.5 % . [facility] Erythrocyte distribution wid th Auto (RBC) [Ratio]Ordered By: Dominique Garrison on 03-30-2022 Erythrocyte distribution width (RBC) [Ratio] 14.2 % 11.9-15.3 [facility] Estimated glomerular filtrat ion rate (GFR) non- AmericanOrdered By: Dominique Garrison on 03-30-2022 GFR/1.73 sq M.predicted among non-blacks MDRD (S/P/Bld) [Vol rate/Area] > 60 mL/Min [facility] Globulin Calc (S) [Mass/Vol] Ordered By: Dominique Garrison on 03-30-2022 Globulin (S) [Mass/Vol] 4.1 g/dL [facility] HCV Antibody Cascadeon 03-30 Hepatitis C Virus Antibody 0.2 Normal 0.0-0.9 [facility] Comment on above: Performed By: #### U HCG #### [facility] [address] Interpretation Hepatitis C Normal . [facility] Comment on above: Result Comment: Adan colunga Not infected with HCV, unless recent infection is suspected or other evidence exists to indicate HCV infection. Performed By: #### U HCG #### [address] Hematocrit Auto (Bld) [Volum e fraction]Ordered By: Dominique Garrison on 03-30-2022 Hematocrit (Bld) [Volume fraction] 39.6 % 34.0-46.4 [facility] Hepatitis B Core Antibodyon 03-30-2022 Hepatitis B Core Antibody Negative Normal Negative [facility] Comment on above: Result Comment: Perf ormed at: - [facility] [address] [id number] Auto Mechanic Apprentice: Tarun Almanzar PhD, Phone: [phone] PERFORMED BY: [place] [address] PATHOLOGIST PLASMA CUTTING MACHINE OPERATOR JACQUIE CRABTREE M.D. Performed By: #### U HCG #### [address] Hepatitis B Surface Antibody on 03-30-2022 Hepatitis B Surface Antibody Reactive Normal . [facility] Comment on above: Result Comment: Non Reactive: Inconsistent with immunity, less than 10 mIU/mL Reactive: Consistent with immunity, greater than 9.9 mIU/mL Performed By: #### U HCG #### [address] Hepatitis C virus RNA [Units /volume] (viral load) in Serum or Plasma by EVARISTO with probOrdered By: Dominique Garrison on 03-30-2022 HCV RNA EVARISTO+probe Qn N/A [facility] Hepatitis C virus RNA [log u nits/volume] (viral load) in Serum or Plasma by EVARISTO withOrdered By: Dominique Garrison on 03-30-2022 HCV RNA EVARISTO+probe [Log units/Vol] N/A [facility] - Hematology and Cell countsOrdered By: Dominique Garrison on 03-30-2022 Nucleated RBC/100 WBC (Bld) [Ratio] 0.1 % 0-0.5 [facility] Lymphocytes Auto (Bld) [#/Vo l]Ordered By: Dominique Garrison on 03-30-2022 Lymphocytes (Bld) [#/Vol] 1.7 10*3/uL 1.00-4.8 [facility] Lymphocytes/100 WBC Auto (Bl d)Ordered By: Dominique Garrison on 03-30-2022 Lymphocytes/100 WBC (Bld) 16.0 % . [facility] MCH Auto (RBC) [Entitic mass ]Ordered By: Dominique Garrison on 03-30-2022 MCH (RBC) [Entitic mass] 26.8 pg 24.7-34.3 [facility] MCHC Auto (RBC) [Mass/Vol]Or dered By: Dominique Garrison on 03-30-2022 MCHC (RBC) [Mass/Vol] 33.7 g/dL 32.0-35.0 [facility] MCV Auto (RBC) [Entitic vol] Ordered By: Dominique Garrison on 03-30-2022 MCV (RBC) [Entitic vol] 79.6 fL 80-100 [facility] Monocytes Auto (Bld) [#/Vol] Ordered By: Dominique Garrison on 03-30-2022 Monocytes (Bld) [#/Vol] 0.7 10*3/uL 0.0-0.8 [facility] Monocytes/100 WBC Auto (Bld) Ordered By: Dominique Garrison on 03-30-2022 Monocytes/100 WBC (Bld) 6.4 % . [facility] Neutrophils Auto (Bld) [#/Vo l]Ordered By: Dominique Garrison on 03-30-2022 Neutrophils (Bld) [#/Vol] 8.0 10*3/uL 1.8-7.7 [facility] Neutrophils/100 WBC Auto (Bl d)Ordered By: Dominique Garrison on 03-30-2022 Neutrophils/100 WBC (Bld) 75.5 % . [facility] No Panel InformationOrdered By: Dominique Garrison on 03-30-2022 Estimated GFR () > 60 mL/Min [facility] Comment on above: GFR estimated refere nce range: According to KDOQI guidelines, <60 ml/min/1.73m2 is sufficient to diagnose a patient with chronic kidney disease. Hepatitis B Core Total Antibody Negative Negative [facility] Comment on above: Performed at: [address] [id number] [employer] Apprentice: Tarun Almanzar PhD, Phone: [phone] Hepatitis C Interpretation See comment . [facility] Comment on above: Negative Not infected with HCV, unless recent infection is suspected or other evidence exists to indicate HCV infection. Hepatitis C RNA Quantitative N/A [facility] Creatinine Clearance (Chem N/A [facility] TB Test (T-Spot) . [facility] Comment on above: See report. Scanned copy available in EMR. Platelet mean volume Auto (B ld) [Entitic vol]Ordered By: Dominique Garrison on 03-30-2022 Platelet mean volume (Bld) [Entitic vol] 7.3 fL 6.3-10.7 [facility] Platelets Auto (Bld) [#/Vol] Ordered By: Dominique Garrison on 03-30-2022 Platelets (Bld) [#/Vol] 376 10*3/uL 150-450 [facility] Protein [Mass/volume] in Ser um or PlasmaOrdered By: Dominique Garrison on 03-30-2022 Protein [Mass/Vol] 7.2 g/dL 6.1-7.9 [facility] RBC Auto (Bld) [#/Vol]Ordere d By: Dominique Garrison on 03-30-2022 RBC (Bld) [#/Vol] 4.97 10*6/uL 3.60-5.00 [facility] Serum hepatitis B virus surf mary antibody detectionOrdered By: Dominique Garrison on 03-30-2022 HBV surface Ab Ql (S) Reactive . [facility] Comment on above: Non Reactive: Incons istent with immunity, less than 10 mIU/mL Reactive: Consistent with immunity, greater than 9.9 mIU/mL Serum or plasma alanine block otransferase measurement without P-5'-P (enzymatic activiOrdered By: Dominique Garrison on 03-30-2022 ALT No additional P-5'-P [Catalytic activity/Vol] 24 U/L 10-60 [facility] Serum or plasma albumin/glob ulin mass ratioOrdered By: Dominique Garrison on 03-30-2022 Albumin/Globulin [Mass ratio] 0.8 {ratio} [facility] Serum or plasma alkaline james sphatase measurement (enzymatic activity/volume)Ordered By: Dominique Garrison on 03-30-2022 ALP [Catalytic activity/Vol] 66 U/L 32-92 [facility] Serum or plasma aspartate am inotransferase measurement (enzymatic activity/volume)Ordered By: Dominique Garrison on 03-30-2022 AST [Catalytic activity/Vol] 20 U/L 10-42 [facility] Serum or plasma calcium seema urement (mass/volume)Ordered By: Dominique Garrison on 03-30-2022 Calcium [Mass/Vol] 8.5 mg/dL 8.2-10.2 [facility] Serum or plasma chloride laura surement (moles/volume)Ordered By: Dominique Garrison on 03-30-2022 Chloride [Moles/Vol] 105 mmol/L 95-114 [facility] Serum or plasma glucose seema urement (mass/volume)Ordered By: Dominique Garrison on 03-30-2022 Glucose [Mass/Vol] 97 mg/dL 70-100 [facility] Comment on above: ADA recommended refe [...] IA [Rel units/Vol] 0.2 s/co ratio 0.0-0.9 [facility] Serum or plasma potassium me asurement (moles/volume)Ordered By: Dominique Garrison on 03-30-2022 Potassium [Moles/Vol] 3.8 mmol/L 3.5-5.1 [facility] Serum or plasma sodium measu rement (moles/volume)Ordered By: Dominique Garrison on 03-30-2022 Sodium [Moles/Vol] 136 mmol/L 136-146 [facility] Serum or plasma total biliru bin measurement (mass/volume)Ordered By: Dominique Henry on 03-30-2022 Bilirubin [Mass/Vol] 0.5 mg/dL 0.3-1.2 [facility] Serum or plasma total carbon dioxide measurement (moles/volume)Ordered By: Dominique Garrison on 03-30-2022 CO2 [Moles/Vol] 23.0 mmol/L 22.0-30.0 [facility] Serum or plasma urea nitroge n measurement (mass/volume)Ordered By: Dominique Garrison on 03-30-2022 Urea nitrogen [Mass/Vol] 9 mg/dL 05-26 [facility] T SPOT TB TESTon 03-30-2022 T SPOT TB TEST . Normal [facility] Comment on above: Result Comment: See report. Scanned copy available in EMR. PERFORMED BY: [place] [address] PATHOLOGIST PLASMA CUTTING MACHINE OPERATOR JACQUIE CRABTREE M.D. Performed By: #### U HCG #### [facility] [address] [place] [address] Bacteria identified Anaer cx Nom (Unsp spec)Ordered By: John Carlson on 03-29-2022 Anaerobic Culture Prevotella bivia F [facility] Bacteria identified Aer cx N om (Unsp spec)Ordered By: John Carlson on 03-15-2022 Aerobic Culture Strep. agalactiae Grp B [facility] ABO and Rh group post transf usion reaction Nom (Bld)Ordered By: John Carlson on 03-14-2022 Microscopic observation Gram stain Nom (Unsp spec) [facility] Aerobic Cultureon 03-13-2022 Aerobic Culture Comment Right Labial Abscess ORGANISM: Strep. agalactiae Grp B (O:B) Quantity of Growth Moderate Growth Comment Right Labial Abscess ORGANISM: Prevotella bivia (O:PREBIV) Comments Sent to [facility] for Testing Quantity of Growth Moderate Growth PREVOTELLA BIVIA (A) Testing done at [facility] Organism sent to [facility] for susceptibililty testing. Minimum inhibitory concentration (ug/ml) Meropenem 0.12 Ampicillin/Sulbacta m 2/1 Piperacillin/Tazoba ctam <=1/4 Penicillin 16 Metronidazole 4 Clindamycin >=32 Interpretive information: See Note Note: At the present time there are no CLSI guidelines for performance and/or interpretation of susceptibility testing for anaerobes other than Bacteroides fragilis group by the broth microdilution method. Unable to provide interpretation for the MARY values. Susceptibility performed by non-standardized methology. Interpret results with caution. Testing performed [facility] [employer] Comment Right Labial Abscess Gram Stain Result 4+ White Blood Cells Rare Gram Positive Cocci PERFORMED BY: [place] [address] PATHOLOGIST PLASMA CUTTING MACHINE OPERATOR JACQUIE CRABTREE M.D. [facility] Comment on above: Performed By: #### C OVID 19 [facility] #### [address] Basic Metabolic Panelon 03-03 Calcium [Mass/Vol] 8.9 mg/dL Normal 8.2-10.2 [facility] Comment on above: Performed By: #### B MP #### [facility] [address] [place] [address] [place] Chloride [Moles/Vol] 98 mmol/L Normal 95-114 [facility] Comment on above: Performed By: #### B MP #### [address] CO2 [Moles/Vol] 24.4 mmol/L Normal 22.0-30.0 [facility] Comment on above: Performed By: #### B MP #### [place] [id number] [facility] Creatinine [Mass/Vol] 0.77 mg/dL Normal 0.44-1.03 [facility] Comment on above: Performed By: #### B MP #### [place] [address] [place] Creatinine Clr Calc Pharmacy 159.38 [facility] Comment on above: Result Comment: PERF ORMED BY: [place] [address] PATHOLOGIST PLASMA CUTTING MACHINE OPERATOR JACQUIE CRABTREE M.D. Performed By: #### B MP #### [address] Estimated GFR ( Vinh > 60 Normal [facility] Comment on above: Result Comment: GFR estimated reference range: According to KDOQI guidelines, <60 ml/min/1.73m2 is sufficient to diagnose a patient with chronic kidney disease. Performed By: #### B MP #### [facility] [address] [place] [address] [place] Estimated GFR (Non- Am > 60 Normal [facility] Comment on above: Performed By: #### B MP #### [address] Glucose [Mass/Vol] 95 mg/dL Normal 70-100 [facility] Comment on above: Result Comment: [place] Glucose Reference Range is dependent on time and content of last meal. Glucose of more than 200 mg/dL in a nonstressed, ambulatory subject supports the diagnosis of Diabetes Mellitus. ADA recommended reference range Performed By: #### B MP #### [address] Potassium [Moles/Vol] 3.8 mmol/L Normal 3.5-5.1 [facility] Comment on above: Performed By: #### B MP #### [place] [address] [place] Sodium [Moles/Vol] 133 mmol/L Low 136-146 [facility] Comment on above: Performed By: #### B MP #### [place] [address] [place] Urea nitrogen [Mass/Vol] 7 mg/dL Low 9-23 [facility] Comment on above: Performed By: #### B MP #### [place] [address] [place] Creatinine and Glomerular fi ltration rate.predicted panel (S/P/Bld)Ordered By: KATYA SIMENTAL on 03-13-2022 Creatinine [Mass/Vol] 0.77 mg/dL 0.44-1.03 [facility] Estimated glomerular filtrat ion rate (GFR) non- AmericanOrdered By: KATYA SIMENTAL on 03-13-2022 GFR/1.73 sq M.predicted among non-blacks MDRD (S/P/Bld) [Vol rate/Area] > 60 mL/Min [facility] HCG ( test) IA.rapi d Ql (U)Ordered By: KATYA SIMENTAL on 03-13-2022 HCG ( test) Ql (U) Negative [facility] HCG,Urineon 03-13-2022 Beta HCG ( test) Ql (U) Negative Normal [facility] Comment on above: Result Comment: PERF ORMED BY: [place] [address] PATHOLOGIST PLASMA CUTTING MACHINE OPERATOR JACQUIE CRABTREE M.D. Performed By: #### U HCG #### [address] No Panel InformationOrdered By: KATYA SIMENTAL on 03-13-2022 Estimated GFR () > 60 mL/Min [facility] Comment on above: GFR estimated refere nce range: According to KDOQI guidelines, <60 ml/min/1.73m2 is sufficient to diagnose a patient with chronic kidney disease. Pharmacy Creatinine Clearance (Chem 159.38 [facility] Serum or plasma calcium semea urement (mass/volume)Ordered By: KATYA SIMENTAL on 03-13-2022 Calcium [Mass/Vol] 8.9 mg/dL 8.2-10.2 [facility] Serum or plasma chloride laura surement (moles/volume)Ordered By: KATYA SIMENTAL on 03-13-2022 Chloride [Moles/Vol] 98 mmol/L 95-114 [facility] Serum or plasma glucose seema urement (mass/volume)Ordered By: KATYA SIMENTAL on 03-13-2022 Glucose [Mass/Vol] 95 mg/dL 70-100 [facility] Comment on above: ADA recommended refe rence range Random Glucose Reference Range is dependent on time and content of last meal. Glucose of more than 200 mg/dL in a nonstressed, ambulatory subject supports the diagnosis of Diabetes Mellitus. Serum or plasma potassium me asurement (moles/volume)Ordered By: KATYA SIMENTAL on 03-13-2022 Potassium [Moles/Vol] 3.8 mmol/L 3.5-5.1 [facility] Serum or plasma sodium measu rement (moles/volume)Ordered By: KATYA SIMENTAL on 03-13-2022 Sodium [Moles/Vol] 133 mmol/L 136-146 [facility] Serum or plasma total carbon dioxide measurement (moles/volume)Ordered By: KATYA SIMENTAL on 03-13-2022 CO2 [Moles/Vol] 24.4 mmol/L 22.0-30.0 [facility] Serum or plasma urea nitroge n measurement (mass/volume)Ordered By: KATYA SIMENTAL on 03-13-2022 Urea nitrogen [Mass/Vol] 7 mg/dL 9- [facility] COVID-19 FRon 03-09-2022 SARS-CoV-2 (COVID-19) RNA EVARISTO+probe Ql (Unsp spec) Negative Normal Negative [facility] Comment on above: Order Comment: Healt hcare Worker?: N Result Comment: Testing for SARS-CoV-2 by RT-PCR This test was developed and its performance characteristics determined by [employer] ([employer]) and validated at the [facility]. This test has not been FDA [...] is terminated or revoked sooner. PERFORMED BY: [facility] Aw[place] [address] PATHOLOGIST PLASMA CUTTING MACHINE OPERATOR JACQUIE CRABTREE M.D. Performed By: #### C OVID 19 [facility] #### [facility] [address] [place] [id number] [facility] COVID-19 Positive/NegativeOr dered By: John Carlson on 03-09-2022 SARS-CoV-2 (COVID-19) N gene EVARISTO+probe Ql (Resp) Negative Negative [facility] Comment on above: Testing for SARS-CoV -2 by RT-PCR This test was developed and its performance characteristics determined by [employer] ([employer]) and validated at the [facility]. This test has not been FDA [...] Anaer cx Nom (Unsp spec)Ordered By: John Carlson on 02-28-2022 Anaerobic Culture Prevotella bivia F [facility] Bacteria identified Aer cx N om (Unsp spec)Ordered By: John Carlson on 02-15-2022 Aerobic Culture Escherichia coli [facility] Aerobic Culture Strep. agalactiae Grp B [facility] ABO and Rh group post transf usion reaction Nom (Bld)Ordered By: John Carlson on 02-14-2022 Microscopic observation Gram stain Nom (Unsp spec) [facility] Aerobic Cultureon 02-13-2022 Aerobic Culture Comment R LABIAL LESION DEEP WOUND CULTURE Light Normal Skin Keerthi 2 Days Comment R LABIAL LESION DEEP WOUND CULTURE No Anaerobes Isolated 3 Days Comment R LABIAL LESION DEEP WOUND CULTURE Gram Stain Result 3+ White Blood Cells No Bacteria Seen PERFORMED BY: [facility] [address] [place] [address] PATHOLOGIST PLASMA CUTTING MACHINE OPERATOR JACQUIE CRABTREE M.D. [facility] Comment on above: Performed By: #### A ERC #### [facility] [address] Aerobic Culture Comment R PUBIS LESION DEEP WOUND CULTURE ORGANISM: Escherichia coli (O:ESCCOL) Quantity of Growth Light Growth ORGANISM: Strep. agalactiae Grp B (O:B) Quantity of Growth Rare Growth Comment R PUBIS LESION DEEP WOUND CULTURE ORGANISM: Prevotella bivia (O:PREBIV) Comments Sent to [facility] for Sensitivity Testing Quantity of Growth Moderate Growth Beta lactamase - Positive Minimum inhibitory concentration (ug/ml) Meropenem 0.06 None Ampicillin/Sulbacta m 2/1 None Piperacillin/Tazoba ctam <=1/4 None Penicillin 8 None Metronidazole 4 [...] with caution. Testing performed [facility] Comment R PUBIS LESION DEEP WOUND CULTURE Gram Stain Result 1+ White Blood Cells No Bacteria Seen Aerobic MARY Charge (NUC86) ------ SUSCEPTIBILITY ----- ORGANISM: O:ESCCOL ANTIBIOTIC INTERPRETATION MRAY Amikacin S <16 Ampicillin R >16 Ampicillin/Sulbacta m S <8/4 Aztreonam S <4 Cefazolin S <2 Cefepime S <2 Ceftazidime S <1 Ceftazidime/Avibact am S <8 Ceftriaxone S <1 Ciprofloxacin S <1 Ertapenem S <0.5 Gentamicin S <4 Levofloxacin S <2 Meropenem S <1 Piperacillin/Tazoba ctam S <16 Tetracycline S <4 Tigecycline S <2 Tobramycin S <4 Trimethoprim/Sulfam ethoxazole R > S = SUSCEPTIBLE I = INTERMEDIATE R [...] RESISTANT TO ALL B-LACTAM DRUGS. PERFORMED BY: [place] [address] PATHOLOGIST PLASMA CUTTING MACHINE OPERATOR JACQUIE CRABTREE M.D. Normal [facility] Comment on above: Performed By: #### U HCG #### [facility] [address] [place] [address] HCG ( test) IA.rapi d Ql (U)Ordered By: Dillon Miranda on 02-13-2022 HCG ( test) Ql (U) Negative [facility] HCG,Urineon 02-13-2022 Beta HCG ( test) Ql (U) Negative Normal [facility] Comment on above: Result Comment: PERF ORMED BY: [place] [address] PATHOLOGIST PLASMA CUTTING MACHINE OPERATOR JACQUIE CRABTREE M.D. Performed By: #### U HCG #### [place] [id number] [facility] Mikey 02-13-2022 L Specimen: [id number] Received: 02/14/22 Status: OSCAR [place] Num: [id number] Spec Type: Surgical Subm Dr: John Carlson MD Tissues: A Debridement-Skin/Ot her Than Skin (RT PUBIS) B Debridement-Skin/Ot her Than Skin (LT LABIAL) C Debridement-Skin/Ot her Than Skin (RT LABIAL) D Debridement-Skin/Ot her Than Skin (RT ABDOMINAL WALL) Procedures: HE Stain/4, Gross/Micro L3/4 Patient Age/Sex Location Account Attending Physician Margaret Prieto 31/F [place] [id number] John Carlson MD SPEC NUM: [id number] RECD: 02/14/22 STATUS: OSCAR REJI NUM: [id number] DANIEL: 02/13/22-[address] [facility] [address]: John Carlson MD ENTERED: 02/14/[address] [facility] [address]: BRODY TYPE: Surgical DEPT: S [...] Multiple leg and groin lesions, hidradenitis Specimen: [id number] Received: 02/14/22 Status: OSCAR [place] Num: [id number] Spec Type: Surgical Subm Dr: John Carlson MD Tissues: A Debridement-Skin/Ot her Than Skin (RT PUBIS) B Debridement-Skin/Ot her Than Skin (LT LABIAL) C Debridement-Skin/Ot her Than Skin (RT LABIAL) D Debridement-Skin/Ot her Than Skin (RT ABDOMINAL WALL) Procedures: HE Stain/4, Gross/Micro L3/4 Patient: Margaret Prieto [id number] (Continued) Specimen: [id number] Received: 02/14/22 (Continued) Signed (signatur e on file) Santi Nichols MD (Michelle) 02/15/22 1722 Specimen: Received: 02/14/22 Status: OSCAR [place] Num: [id number] Spec Type: Surgical Subm Dr: John Carlson MD Tissues: A Debridement-Skin/Ot her Than Skin (RT PUBIS) B Debridement-Skin/Ot her Than Skin (LT LABIAL) C Debridement-Skin/Ot her Than Skin (RT LABIAL) D Debridement-Skin/Ot her Than Skin (RT ABDOMINAL WALL) Procedures: HE Stain/4, Gross/Micro L3/4 Patient: CarlmeenakshiMargaret [id number] (Continued) Specimen: Received: 02/14/22 (Continued) Gross Description A. Received [...] the patient's (more content not included)... Normal [facility] SARS-CoV-2 (COVID-19) RNA EVARISTO+probe Ql (Unsp spec) Negative Normal Negative [facility] Comment on above: Order Comment: Healt hcare Worker?: N Result Comment: Testing for SARS-CoV-2 by RT-PCR This test was developed and its performance characteristics determined by [employer] ([employer]) and validated at the [facility]. This test has not been FDA [...] is terminated or revoked sooner. PERFORMED BY: [place] [id number] PATHOLOGIST PLASMA CUTTING MACHINE OPERATOR JACQUIE CRABTREE M.D. Performed By: #### C OVID 19 [facility] #### [address] COVID-19 Positive/NegativeOr dered By: John Carlson on 02-09-2022 SARS-CoV-2 (COVID-19) N gene EVARISTO+probe Ql (Resp) Negative Negative [facility] Comment on above: Testing for SARS-CoV -2 by RT-PCR This test was developed and its performance characteristics determined by [employer] ([employer]) and validated at the [facility]. This test has not been FDA [...] terminated or revoked sooner. Basic Metabolic Panelon 01-03 Calcium [Mass/Vol] 8.9 mg/dL Normal 8.2-10.2 [facility] Comment on above: Result Comment: PERF ORMED BY: [address] [id number] PATHOLOGIST PLASMA CUTTING MACHINE OPERATOR JACQUIE CRABTREE M.D. Performed By: #### C , [facility] #### [place] [id number] [place] Chloride [Moles/Vol] 99 mmol/L Normal 95-114 [facility] Comment on above: Performed By: #### C BC, BMP #### [facility] [address] CO2 [Moles/Vol] 26.3 mmol/L Normal 22.0-30.0 [facility] Comment on above: Performed By: #### C BC, BMP #### [address] Creatinine [Mass/Vol] 0.77 mg/dL Normal 0.44-1.03 [facility] Comment on above: Performed By: #### C BC, BMP #### [address] Estimated GFR ( Vinh > 60 [facility] Comment on above: Result Comment: GFR estimated reference range: According to KDOQI guidelines, <60 ml/min/1.73m2 is sufficient to diagnose a patient with chronic kidney disease. Performed By: #### C BC, BMP #### [address] Estimated GFR (Non- Am > 60 [facility] Comment on above: Performed By: #### C BC, BMP #### [address] Glucose [Mass/Vol] 100 mg/dL Normal 70-100 [facility] Comment on above: Result Comment: [place] Glucose Reference Range is dependent on time and content of last meal. Glucose of more than 200 mg/dL in a nonstressed, ambulatory subject supports the diagnosis of Diabetes Mellitus. ADA recommended reference range Performed By: #### C BC, BMP #### [address] Potassium [Moles/Vol] 3.8 mmol/L Normal 3.5-5.1 [facility] Comment on above: Performed By: #### C BC, BMP #### [place] [address] [place] Sodium [Moles/Vol] 137 mmol/L Normal 136-146 [facility] Comment on above: Performed By: #### C BC, BMP #### [facility] [address] Urea nitrogen [Mass/Vol] 11 mg/dL Normal 9-23 [facility] Comment on above: Performed By: #### C BC, BMP #### [facility] [address] Complete Blood Count Auto Di ffon 01-31-2022 Basophils (Bld) [#/Vol] 0.1 10*3/uL Normal 0.0-0.2 [facility] Comment on above: Result Comment: PERF ORMED BY: [place] [address] PATHOLOGIST PLASMA CUTTING MACHINE OPERATOR JACQUIE CRABTREE M.D. Performed By: #### C BC, BMP #### [address] Basophils/100 WBC (Bld) 0.7 % Normal . [facility] Comment on above: Performed By: #### C BC, BMP #### [facility] [address] Eosinophils (Bld) [#/Vol] 0.3 10*3/uL Normal 0.0-0.45 [facility] Comment on above: Performed By: #### C BC, BMP #### [address] Eosinophils/100 WBC (Bld) 2.7 % Normal . [facility] Comment on above: Performed By: #### C BC, BMP #### [address] Erythrocyte distribution width (RBC) [Ratio] 14.3 % Normal 11.9-15.3 [facility] Comment on above: Performed By: #### C BC, BMP #### [address] Hematocrit (Bld) [Volume fraction] 41.9 % Normal 34.0-46.4 [facility] Comment on above: Performed By: #### C BC, BMP #### [facility] [address] [place] [address] [place] Hemoglobin (Bld) [Mass/Vol] 13.9 g/dL Normal 11.8-15.4 [facility] Comment on above: Performed By: #### C BC, BMP #### [facility] [address] Lymphocytes (Bld) [#/Vol] 2.0 10*3/uL Normal 1.00-4.8 [facility] Comment on above: Performed By: #### C BC, BMP #### [facility] [address] Lymphocytes/100 WBC (Bld) 15.9 % Normal . [facility] Comment on above: Performed By: #### C BC, BMP #### [facility] [address] MCH (RBC) [Entitic mass] 26.4 pg Normal 24.7-34.3 [facility] Comment on above: Performed By: #### C BC, BMP #### [address] MCV (RBC) [Entitic vol] 79.5 fL Low 80-100 [facility] Comment on above: Performed By: #### C BC, BMP #### [address] Mean Corpuscular HGB Conc 33.2 g/dL Normal 32.0-35.0 [facility] Comment on above: Performed By: #### C BC, BMP #### [facility] [address] [place] [address] [place] Monocytes (Bld) [#/Vol] 0.8 10*3/uL Normal 0.0-0.8 [facility] Comment on above: Performed By: #### C BC, BMP #### [facility] [address] [place] [address] [place] Monocytes/100 WBC (Bld) 6.7 % Normal . [facility] Comment on above: Performed By: #### C BC, BMP #### [facility] [address] [place] [address] [place] Neutrophils (Bld) [#/Vol] 9.2 10*3/uL High 1.8-7.7 [facility] Comment on above: Performed By: #### C BC, BMP #### [facility] [address] [place] [id number] [place] Neutrophils/100 WBC (Bld) 74.0 % Normal . [facility] Comment on above: Performed By: #### C FABY, BMP #### [facility] [address] [place] [address] [place] Nucleated RBC/100 WBC (Bld) [Ratio] 0.0 % Normal 0-0.5 [facility] Comment on above: Performed By: #### C FABY, BMP #### [facility] [address] Platelet mean volume (Bld) [Entitic vol] 6.9 fL Normal 6.3-10.7 [facility] Comment on above: Performed By: #### C FABY, BMP #### [facility] [address] [place] [address] [place] Platelets (Bld) [#/Vol] 363 10*3/uL Normal 150-450 [facility] Comment on above: Performed By: #### C BC, BMP #### [facility] [address] [place] [address] [place] RBC (Bld) [#/Vol] 5.26 10*6/uL High 3.60-5.00 [facility] Comment on above: Performed By: #### C BC, BMP #### [facility] [address] [place] [address] [place] WBC (Bld) [#/Vol] 12.5 10*3/uL High 4.5-11.0 [facility] Comment on above: Performed By: #### C BC, BMP #### [facility] [address] [place] [address] [place] ECG 12 lead ECGon 01-31-2022 ECG 12 lead ECG [facility] [place] [address] [place] [address] Electrocardiograph Report Signed Patient: Margaret Prieto MR#: [id number] : 1990 Acct:[id number] Age/Sex: 31 / F ADM Date: 01/31/22 Loc: [place] Room: Type: [facility] Attending Dr: John Carlson MD Ordering Provider: John Carlson MD Date of Service: 01/31/22 ECG/ECG 12 [...] on 01/31/2022 6:47:57 PM Referred By: ALBA CARLSON Electronically Signed By:SUSANNA RUIZ DO Transcribed By: MUS Signed By uSsanna Ruiz DO 01/31 1848 Normal [facility] Physician Referralon 022 Physician Referral [id number]:127 Normal [facility] Physician Referralon 021 Physician Referral [id number]:127 Normal [facility] Vital Signs Date Time Vital Sign Value Performing Clinician Facility 12-20-2023 10:16040 Body temperature 97.7 [degF] Sharif Joseph MD Work Phone: [facility] 12-20-2023 10:16-040 Body weight 171.1 kg Sharif Joseph MD Work Phone: [facility] 12-20-2023 10:16-0400 Diastolic blood pressure 90 mm[Hg] Sharif Joseph MD Work Phone: [facility] 12-20-2023 10:16-0400 Heart rate 98 /min Sharif Joseph MD Work Phone: [facility] 12-20-2023 10:16-0400 Respiratory rate 16 /min Sharif Joseph MD Work Phone: [facility] 12-20-2023 10:16-0400 SaO2% (BldA) [Mass fraction] 97 % Sharif Joseph MD Work Phone: [facility] 12-20-2023 10:16-0400 Systolic blood pressure 154 mm[Hg] Sharif Joseph MD Work Phone: [facility] 12-07-2023 11:05-0400 Body height 165.1 cm Harley Thacker ELECTRICIAN AIRCRAFT-UNHAIRING MACHINE OPERATOR Work Phone: [facility] 12-07-2023 11:05-0400 Body mass index (BMI) [Ratio] 64.23 kg/m2 Harley Thacker ELECTRICIAN AIRCRAFT-UNHAIRING MACHINE OPERATOR Work Phone: [facility] 12-07-2023 11:05-0400 Body temperature 98.01 [degF] Harley Thacker ELECTRICIAN AIRCRAFT-UNHAIRING MACHINE OPERATOR Work Phone: [facility] 12-07-2023 11:05-0400 Body weight 175.09 kg Harley Thacker ELECTRICIAN AIRCRAFT-UNHAIRING MACHINE OPERATOR Work Phone: [facility] 12-07-2023 11:05-0400 Diastolic blood pressure 76 mm[Hg] Harley Thacker ELECTRICIAN AIRCRAFT-UNHAIRING MACHINE OPERATOR Work Phone: [facility] 12-07-2023 11:05-0400 Heart rate 97 /min Harley Thacker ELECTRICIAN AIRCRAFT-UNHAIRING MACHINE OPERATOR Work Phone: [facility] 12-07-2023 11:05-0400 SaO2% (BldA) [Mass fraction] 94 % Harley Thacker ELECTRICIAN AIRCRAFT-UNHAIRING MACHINE OPERATOR Work Phone: [facility] 12-07-2023 11:05-0400 Systolic blood pressure 136 mm[Hg] Harley Thacker ELECTRICIAN AIRCRAFT-UNHAIRING MACHINE OPERATOR Work Phone: [facility] 11-29-2023 10:42-0400 Body height 165.1 cm Sharif Joseph MD Work Phone: [facility] 11-29-2023 10:42-0400 Body temperature 97.59 [degF] Sharif Joseph MD Work Phone: [facility] 11-29-2023 10:42-0400 Body weight 172.8 kg Sharif Joseph MD Work Phone: [facility] 11-29-2023 10:42-0400 Diastolic blood pressure 100 mm[Hg] Sharif Joseph MD Work Phone: [facility] 11-29-2023 10:42-0400 Heart rate 98 /min Sharif Joseph MD Work Phone: [facility] 11-29-2023 10:42-0400 Respiratory rate 16 /min Sharif Joseph MD Work Phone: [facility] 11-29-2023 10:42-0400 SaO2% (BldA) [Mass fraction] 98 % Sharif Joseph MD Work Phone: [facility] 11-29-2023 10:42-0400 Systolic blood pressure 159 mm[Hg] Sharif Joseph MD Work Phone: [facility] 11-28-2023 09:58-0400 Body height 165.1 cm Pam Mittal MD Work Phone: [facility] 11-28-2023 09:58-0400 Body mass index (BMI) [Ratio] 63.73 kg/m2 Pam Mittal MD Work Phone: [facility] 11-28-2023 09:58-0400 Body weight 173.73 kg Pam Mittal MD Work Phone: [facility] 11-28-2023 09:58-0400 Diastolic blood pressure 96 mm[Hg] Pam Mittal MD Work Phone: [facility] 11-28-2023 09:58-0400 Heart rate 95 /min Pam Mittal MD Work Phone: [facility] 11-28-2023 09:58-0400 SaO2% (BldA) [Mass fraction] 98 % Pam Mittal MD Work Phone: [facility] 11-28-2023 09:58-0400 Systolic blood pressure 140 mm[Hg] Pam Mittal MD Work Phone: [facility] 11-14-2023 15:25-0400 Body height 165.1 cm Harley Thacker ELECTRICIAN AIRCRAFT-UNHAIRING MACHINE OPERATOR Work Phone: [facility] 11-14-2023 15:25-0400 Body mass index (BMI) [Ratio] 63.5 kg/m2 Harley Thacker ELECTRICIAN AIRCRAFT-UNHAIRING MACHINE OPERATOR Work Phone: [facility] 11-14-2023 15:25-0400 Body temperature 98.6 [degF] Harley Thacker ELECTRICIAN AIRCRAFT-UNHAIRING MACHINE OPERATOR Work Phone: [facility] 11-14-2023 15:25-0400 Body weight 173.09 kg Harley Thacker ELECTRICIAN AIRCRAFT-UNHAIRING MACHINE OPERATOR Work Phone: [facility] 11-14-2023 15:25-0400 Diastolic blood pressure 80 mm[Hg] Harley Thacker ELECTRICIAN AIRCRAFT-UNHAIRING MACHINE OPERATOR Work Phone: [facility] 11-14-2023 15:25-0400 Heart rate 98 /min Harley Thacker ELECTRICIAN AIRCRAFT-UNHAIRING MACHINE OPERATOR Work Phone: [facility] 11-14-2023 15:25-0400 SaO2% (BldA) [Mass fraction] 97 % Harley Thacker ELECTRICIAN AIRCRAFT-UNHAIRING MACHINE OPERATOR Work Phone: [facility] 11-14-2023 15:25-0400 Systolic blood pressure 132 mm[Hg] Harley Thacker ELECTRICIAN AIRCRAFT-UNHAIRING MACHINE OPERATOR Work Phone: [facility] 11-07-2023 10:01-0500 Body height 165.1 cm Corine Catherine ELECTRICIAN AIRCRAFT-UNHAIRING MACHINE OPERATOR Work Phone: [facility] 11-07-2023 10:01-0500 Body mass index (BMI) [Ratio] 63.77 kg/m2 Corine Catherine ELECTRICIAN AIRCRAFT-UNHAIRING MACHINE OPERATOR Work Phone: [facility] 11-07-2023 10:01-0500 Body weight 173.82 kg Corine Catherine ELECTR[employer]IAN [employer]FT-UNHAIRING MACHINE OPERATOR Work Phone: [facility] 11-07-2023 10:01-0500 Diastolic blood pressure 89 mm[Hg] Corine Catherine ELECTRICIAN AIRCRAFT-UNHAIRING MACHINE OPERATOR Work Phone: [facility] 11-07-2023 10:01-0500 Heart rate 95 /min Corine Catherine ELECTRICIAN [employer]UNHAIRING MACHINE OPERATOR Work Phone: [facility] [facility] 11-07-2023 10:01-0500 Systolic blood pressure 175 mm[Hg] Corine Catherine ELECTRICIAN AIRCRAFT-UNHAIRING MACHINE OPERATOR Work Phone: [facility] 10-19-2023 10:15-0500 Body mass index (BMI) [Ratio] 63.5 kg/m2 Yashira Mi [employer]IAN AIRCRAFT-UNHAIRING MACHINE OPERATOR Work Phone: [facility] 10-19-2023 10:15-0500 Body weight 173.09 kg Yashira Mi E[employer]IAN AIRCRAFT-UNHAIRING MACHINE OPERATOR Work Phone: [facility] 10-19-2023 10:15-0500 Diastolic blood pressure 96 mm[Hg] Yashira Mi ELECTR[employer]IAN AIRCRAFT-UNHAIRING MACHINE OPERATOR Work Phone: [facility] 10-19-2023 10:15-0500 Heart rate 82 /min Yashira Mi ELECTRICIAN AIRCRAFT-UNHAIRING MACHINE OPERATOR Work Phone: [facility] 10-19-2023 10:15-0500 Systolic blood pressure 142 mm[Hg] Yashira Mi ELECTRICIAN AIRCRAFT-UNHAIRING MACHINE OPERATOR Work Phone: [facility] 10-08-2023 09:12-0500 Body height 165.1 cm Harley Thacker ELECTRICIAN AIRCRAFT-UNHAIRING MACHINE OPERATOR Work Phone: [facility] 10-08-2023 09:12-0500 Body mass index (BMI) [Ratio] 63.24 kg/m2 Harley Thacker ELECTRICIAN AIRCRAFT-UNHAIRING MACHINE OPERATOR Work Phone: [facility] 10-08-2023 09:12-0500 Body temperature 98.01 [degF] Harley Thacker ELECTRICIAN AIRCRAFT-UNHAIRING MACHINE OPERATOR Work Phone: [facility] 10-08-2023 09:12-0500 Body weight 172.37 kg Harley Thacker ELECTRICIAN AIRCRAFT-UNHAIRING MACHINE OPERATOR Work Phone: [facility] 10-08-2023 09:12-0500 Diastolic blood pressure 90 mm[Hg] Harley Thacker ELECTRICIAN AIRCRAFT-UNHAIRING MACHINE OPERATOR Work Phone: [facility] 10-08-2023 09:12-0500 Heart rate 86 /min Harley Thacker ELECTRICIAN AIRCRAFT-UNHAIRING MACHINE OPERATOR Work Phone: [facility] 10-08-2023 09:12-0500 SaO2% (BldA) [Mass fraction] 97 % Harley Thacker ELECTRICIAN AIRCRAFT-UNHAIRING MACHINE OPERATOR Work Phone: [facility] 10-08-2023 09:12-0500 Systolic blood pressure 132 mm[Hg] Harley Thacker ELECTRICIAN AIRCRAFT-UNHAIRING MACHINE OPERATOR Work Phone: [facility] 05-05-2022 09:25-0400 Body temperature 97.9 [degF] MD John Carlson Work Phone: [facility] 05-05-2022 09:25-0400 Diastolic blood pressure 93 mm[Hg] MD John Carlson Work Phone: [facility] 05-05-2022 09:25-0400 Heart rate 78 /min MD John Carlson Work Phone: [facility] 05-05-2022 09:25-0400 Respiratory rate 18 /min MD John Carlson Work Phone: [facility] 05-05-2022 09:25-0400 SaO2% (BldA) [Mass fraction] 99 % MD John Carlson Work Phone: [facility] 05-05-2022 09:25-0400 Systolic blood pressure 156 mm[Hg] MD John Carlson Work Phone: [facility] 05-05-2022 09:24-0400 Body height 165.1 cm MD John Carlson Work Phone: [facility] 05-05-2022 09:24-0400 Body weight 155.9 kg MD John Carlson Work Phone: [facility] 04-21-2022 09:29-0400 Body temperature 98.2 [degF] MD John Carlson Work Phone: [facility] 04-21-2022 09:29-0400 Diastolic blood pressure 59 mm[Hg] MD John Carlson Work Phone: [facility] 04-21-2022 09:29-0400 Heart rate 74 /min MD John Carlson Work Phone: [facility] 04-21-2022 09:29-0400 Systolic blood pressure 141 mm[Hg] MD John Carlson Work Phone: [facility] 04-21-2022 08:29-0400 Body height 165.1 cm MD John Carlson Work Phone: [facility] 04-21-2022 08:29-0400 Body weight 155 kg MD John Carlson Work Phone: [facility] 04-10-2022 14:46-0400 Body height 165.1 cm MD John Carlson Work Phone: [facility] 04-10-2022 14:46-0400 Body mass index (BMI) [Ratio] 55.4 kg/m2 MD John Carlson Work Phone: [facility] 04-10-2022 14:46-0400 Body weight 151.04 kg MD John Carlson Work Phone: [facility] 04-10-2022 14:25-0400 Diastolic blood pressure 69 mm[Hg] MD John Carlson Work Phone: [facility] 04-10-2022 14:25-0400 Heart rate 80 /min MD John Carlson Work Phone: [facility] 04-10-2022 14:25-0400 Respiratory rate 16 /min MD John Carlson Work Phone: [facility] 04-10-2022 14:25-0400 SaO2% (BldA) [Mass fraction] 100 % MD John Carlson Work Phone: [facility] 04-10-2022 14:25-0400 Systolic blood pressure 119 mm[Hg] MD John Carlson Work Phone: [facility] 04-10-2022 14:10-0400 Inhaled oxygen flow rate 4 L/min MD John Carlson Work Phone: [facility] 04-10-2022 11:36-0400 Body temperature 97.9 [degF] MD John Carlson Work Phone: [facility] 03-13-2022 19:00-0400 Diastolic blood pressure 92 mm[Hg] MD John Carlson Work Phone: [facility] 03-13-2022 19:00-0400 Heart rate 84 /min MD John Carlson Work Phone: [facility] 03-13-2022 19:00-0400 Respiratory rate 16 /min MD John Carlson Work Phone: [facility] 03-13-2022 19:00-0400 SaO2% (BldA) [Mass fraction] 98 % MD John Carlson Work Phone: [facility] 03-13-2022 19:00-0400 Systolic blood pressure 148 mm[Hg] MD John Carlson Work Phone: [facility] 03-13-2022 18:03-0400 Body temperature 98 [degF] MD John Carlson Work Phone: [facility] 03-13-2022 17:33-0400 Inhaled oxygen flow rate 6 L/min MD John Carlson Work Phone: [facility] 03-13-2022 17:13-0400 Body height 165.1 cm MD John Carlson Work Phone: [facility] 03-13-2022 17:13-0400 Body mass index (BMI) [Ratio] 56.9 kg/m2 MD John Carlson Work Phone: [facility] 03-13-2022 17:13-0400 Body weight 155.12 kg MD John Carlson Work Phone: [facility] 02-13-2022 17:05-0400 Diastolic blood pressure 81 mm[Hg] MD John Carlson Work Phone: [facility] 02-13-2022 17:05-0400 Heart rate 76 /min MD John Carlson Work Phone: [facility] 02-13-2022 17:05-0400 Respiratory rate 16 /min MD John Carlson Work Phone: [facility] 02-13-2022 17:05-0400 SaO2% (BldA) [Mass fraction] 94 % MD John Carlson Work Phone: [facility] 02-13-2022 17:05-0400 Systolic blood pressure 131 mm[Hg] MD John Carlson Work Phone: [facility] 02-13-2022 15:44-0400 Body height 165.1 cm MD John Carlson Work Phone: [facility] 02-13-2022 15:44-0400 Body mass index (BMI) [Ratio] 56.5 kg/m2 MD oJhn Carlson Work Phone: [facility] 02-13-2022 15:44-0400 Body weight 154 kg MD John Carlson Work Phone: [facility] 02-13-2022 12:20-0400 Body temperature 97.9 [degF] MD John Carlson Work Phone: [facility] 08-02-2020 13:24-0500 BMI (Body Mass Index) 58.74 kg/m2 [facility] 08-02-2020 13:24-0500 Body Temperature 98.4 [degF] [facility] 08-02-2020 13:24-0500 Body weight 160.12 kg [facility] 08-02-2020 13:24-0500 BP Diastolic 91 mm[Hg] [facility] 08-02-2020 13:24-0500 BP Systolic 150 mm[Hg] [facility] 08-02-2020 13:24-0500 Height 165.1 cm [facility] 08-02-2020 13:24-0500 Pulse (Heart Rate) 91 /min [facility] 08-02-2020 13:24-0500 Pulse Oximetry 97 % [facility] Encounters Encounter Date Encounter Type Care Provider Facility Start: 02-27-2024 End: 02-27-2024 ambulatory TREVOR JIMENEZ Not Available Start: 02-13-2024 End: 02-13-2024 ambulatory [facility] Start: 01-23-2024 End: 01-23-2024 ambulatory [facility] Start: 01-10-2024 End: 01-10-2024 ambulatory [facility] Start: 12-25-2023 End: 12-25-2023 ambulatory [facility] Start: 12-20-2023 End: 12-20-2023 ambulatory SHARIF JOSEPH Facility:[facility] Start: 12-20-2023 End: 12-20-2023 Office outpatient visit 25 minutes Sharif Joseph MD Work Phone: Hematology/Oncology Comment on above: Primary hypercoagula ble state (HCC) (Primary Dx); Factor V Leiden (HCC); MTHFR mutation; Iron deficiency anemia, unspecified iron deficiency anemia type; Factor V deficiency (HCC) Start: 12-12-2023 End: 12-13-2023 ambulatory [facility] ERBing [facility] Start: 12-12-2023 End: 12-12-2023 ambulatory [facility] Start: 12-11-2023 End: 12-11-2023 ambulatory [facility] Start: 12-11-2023 End: 12-11-2023 Evaluation and management of inpatient MAYRA Smart RAYA [facility] Start: 12-10-2023 End: 12-11-2023 [facility] Start: 12-07-2023 End: 12-08-2023 ambulatory [facility] Start: 12-07-2023 Encounter for genera l adult medical examination without abnormal findings [facility] Start: 12-07-2023 End: 12-07-2023 Patient encounter status Harley Bettencourtjas ELECTRICIAN AIRCRAFT-UNHAIRING MACHINE OPERATOR Work Phone: [email or web address] Work Phone: Start: 12-07-2023 End: 12-07-2023 Periodic preventive med est patient 18-39 yrs Harley Thacker ELECTRICIAN AIRCRAFT-UNHAIRING MACHINE OPERATOR Work Phone: [facility] Comment on above: Wellness examination (Primary Dx); Shalom's disease; Controlled type 2 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 complication, without long-term current use of insulin ([facility]-HCC); Encounter for Papanicolaou smear for cervical cancer screening; Hidradenitis suppurativa Start: 12-07-2023 End: 12-07-2023 ambulatory [facility] Start: 12-07-2023 Encounter for genera l adult medical examination without abnormal findings [facility] Start: 12-07-2023 End: 12-07-2023 ambulatory [facility] Start: 12-06-2023 Orders Only Harley Bettencourtja nikki ELECTRICIAN AIRCRAFT-UNHAIRING MACHINE OPERATOR Work Phone: [facility] Start: 12-05-2023 End: 12-05-2023 ambulatory [facility] Pat Phone Call Provider 1 [facility] - Pre Ad[facility] Start: 12-03-2023 Telephone encounter Gwen Peterson [facility] Start: 11-29-2023 End: 11-29-2023 ambulatory [facility] Facility:[facility] Start: 11-29-2023 End: 11-29-2023 Office outpatient new 45 minutes Sharif Joseph MD Work Phone: Hematology/Oncology Comment on above: Factor V Leiden (HCC ) (Primary Dx); Gastrointestinal hemorrhage, unspecified gastrointestinal hemorrhage type; Iron deficiency anemia, unspecified iron deficiency anemia type; MTHFR mutation; Primary hypercoagulable state (HCC); History of pulmonary embolism Start: 11-28-2023 End: 11-28-2023 ambulatory PAM MITTAL [facility] Start: 11-28-2023 End: 11-28-2023 Office outpatient visit 15 minutes Pam Mittal MD Work Phone: [facility] Comment on above: Essential hypertensi on (Primary Dx) Start: 11-27-2023 Chart abstracting Sharif clarke MD Work Phone: Hematology/Oncology Start: 11-27-2023 Telephone encounter Claribel Myers CMA [facility] Start: 11-27-2023 End: 11-27-2023 Office outpatient visit 15 minutes Yashira M Mi ELECTRICIAN AIRCRAFT-UNHAIRING MACHINE OPERATOR Work Phone: [facility] Comment on above: Bipolar depression ( [facility]-HCC) (Primary Dx); Post traumatic stress disorder (PTSD); Generalized anxiety disorder; Attention deficit hyperactivity disorder, combined type Start: 11-27-2023 End: 11-27-2023 ambulatory [facility] Start: 11-27-2023 End: 11-27-2023 ambulatory [facility] Start: 11-15-2023 End: 2023 ambulatory [facility] Start: 11-14-2023 End: 11-14-2023 ambulatory [facility] Start: 11-14-2023 Encounter for other preprocedural examination [facility] Start: 11-14-2023 End: 11-14-2023 Office outpatient visit 15 minutes [facility] ELECTRICIAN AIRCRAFT-UNHAIRING MACHINE OPERATOR Work Phone: [facility] Comment on above: Preoperative clearan ce (Primary Dx); Abnormal echocardiogram; History of DVT (deep vein thrombosis); History of pulmonary embolism; Factor 5 Leiden mutation, heterozygous ([facility]-HCC); 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 ([facility]-HCC); Chest discomfort; Shortness of breath; Atrial mass; Gastroesophageal reflux disease, unspecified whether esophagitis present Start: 11-14-2023 End: 11-14-2023 Preoperative state [facility] ELECTRICIAN AIRCRAFT-UNHAIRING MACHINE OPERATOR Work Phone: [facility] [employer] Work Phone: Start: 11-14-2023 End: 11-14-2023 ambulatory [facility] Start: 11-12-2023 Telephone encounter Bruna Plasencia CMA [facility] Start: 11-09-2023 End: 11-10-2023 ambulatory KATYA DENISE [facility] Start: 11-09-2023 Encounter for other preprocedural examination [facility] Start: 11-09-2023 End: 11-09-2023 Patient encounter procedure [facility] Pre-Admission Testing 1 [facility] - Pre Ad[facility] Comment on above: Preop examination (P rimary Dx); MTHFR (methylene THF reductase) deficiency and homocystinuria ([facility]-HCC); BMI 60.0-69.9, adult ([facility]-HCC); Hypertension, unspecified type; Blood clotting disorder ([facility]-H[facility]) Start: 11-09-2023 End: 11-09-2023 Preprocedural examination done [facility] 1 [facility] Start: 11-08-2023 End: 11-08-2023 ambulatory [facility] Start: 11-07-2023 End: 11-07-2023 Office outpatient new 45 minutes Corine Dunlap Catherine ELECTRICIAN AIRCRAFT-UNHAIRING MACHINE OPERATOR Work Phone: [facility] Comment on above: Gastroesophageal ref lux disease, unspecified whether esophagitis present (Primary Dx); Nausea and vomiting, unspecified vomiting type; Diarrhea, unspecified type; Morbid obesity ([facility]) Start: 11-07-2023 End: 11-07-2023 ambulatory [facility] Start: 10-30-2023 End: 10-30-2023 ambulatory [facility] Start: 10-23-2023 Refill Susana Rizvi [facility] Start: 10-22-2023 Telephone encounter [facility] Start: 10-19-2023 End: 10-19-2023 ambulatory YASHIRA MI [facility] Start: 10-08-2023 End: 10-08-2023 Office outpatient new 45 minutes Harley Thacker ELECTRICIAN AIRCRAFTAlandia Communication SystemsUNHAIRING MACHINE OPERATOR Work Phone: [facility] Comment on above: PE (pulmonary thromb oembolism) ([facility]-HCC) (Primary Dx); History of pulmonary embolism; History of DVT (deep vein thrombosis); Factor 5 Leiden mutation, heterozygous ([facility]-H[facility]); 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 ([facility]-HCC); Bipolar 1 disorder ([facility]); Insulin resistance; History of prediabetes; History of insulin resistance; Gastroesophageal reflux disease, unspecified whether esophagitis present; Nausea and vomiting, unspecified vomiting type; Hidradenitis suppurativa; Migraine without aura and without status migrainosus, not intractable; Prediabetes Start: 10-08-2023 End: 10-08-2023 ambulatory [facility] Start: 06-25-2023 End: 06-26-2023 ambulatory Yancy Cancino MD Facility:[facility] Start: 05-28-2023 End: 05-29-2023 ambulatory Yancy Cancino MD Facility:[facility] Start: 03-12-2023 End: 03-13-2023 ambulatory Yancy Cancino MD Facility:[facility] Start: 02-26-2023 End: 02-27-2023 ambulatory Yancy Cancino MD Facility:[facility] Start: 02-01-2023 ambulatory NIKOLAS SHAMMO Facility:[facility] Start: 12-05-2022 ambulatory NIKOLAS SHAMMO Facility:[facility] Start: 11-22-2022 End: 11-22-2022 ambulatory NIKOLAS SHAMMO Facility:[facility] Start: 11-02-2022 End: 11-03-[address] KACEY KAPOOR . Facility:[facility] Start: 10-24-2022 Encounter for genera l adult medical examination [facility] Start: 10-23-2022 End: 10-24-2022 Encounter for general adult medical examination without abnormal findings NIKOLAS SHAMMO Facility:[facility] Start: 10-23-2022 End: 10-24-2022 ambulatory NIKOLAS SHAMMO Facility:[facility] Start: 09-28-2022 End: 09-29-[address] KACEY KAPOOR . Facility:[facility] Start: 09-26-2022 End: 09-26-2022 ambulatory DELONTE BAUTISTA . Facility:[facility] Start: 09-05-2022 End: 09-05-2022 ambulatory [facility] Facility:[facility] Start: 06-05-2022 End: 06-06-2022 ambulatory [facility] Facility:[facility] Start: 06-01-2022 End: 06-02-[address] KACEY Martinez Facility:[facility] Start: 05-05-2022 End: 05-05-2022 ambulatory John Carlson Facility:[facility] Start: 05-05-2022 Registered Recurring MD John Carlson Work Phone: [facility] - [facility]/P Start: 04-10-2022 End: 04-10-2022 ambulatory John Carlson Facility:[facility] Start: 04-10-2022 End: 04-10-2022 Admission to same day surgery center MD John Carlson Work Phone: [facility] [place] Start: 04-06-2022 End: 04-06-2022 ambulatory John Cralson Facility:[facility] Start: 04-06-2022 End: 04-06-2022 Patient encounter procedure MD John Carlson Work Phone: [facility]sk[facility] Testing Start: 03-30-2022 End: 03-30-2022 ambulatory Dominique Garrison Facility:[facility] Start: 03-30-2022 End: 03-30-2022 Patient encounter procedure MD John Carlson Work Phone: [facility] [place] Start: 03-13-2022 End: 03-13-2022 ambulatory John Carlson Facility:[facility] Start: 03-13-2022 End: 03-13-2022 Admission to same day surgery center MD John Carlson Work Phone: [facility] [place] Start: 03-09-2022 End: 03-09-2022 ambulatory John Carlson Facility:[facility] Start: 03-09-2022 End: 03-09-2022 Patient encounter procedure MD John Carlson Work Phone: [facility] [employer] Testing Start: 03-01-2022 End: 03-02-2022 ambulatory PAM FLANAGAN Facility: Start: 02-13-2022 End: 02-13-2022 ambulatory John Carlson Facility:[facility] Start: 02-13-2022 End: 02-13-2022 Admission to same day surgery center MD John Carlson Work Phone: [facility] [place] Start: 02-09-2022 End: 02-09-2022 ambulatory John Carlson Facility:[facility] Start: 02-09-2022 End: 02-09-2022 Patient encounter procedure MD John Carlson Work Phone: [facility] Start: 01-31-2022 End: 01-31-2022 ambulatory John Carlson Facility:[facility] Start: 08-02-2020 End: 08-02-2020 Patient encounter procedure SANTIAGO SHELL [facility] Start: 08-02-2020 End: 08-02-2020 Office outpatient new 60 minutes Santiago Shell Work Phone: [facility] Rheumat[facility] Comment on above: Lupus (HCC) (Primary Dx); Suppurative hidradenitis; Chronic fatigue; YULY (obstructive sleep apnea); Vitamin D insufficiency; Morbid obesity with BMI of 50.0-59.9, adult (HCC) Start: 06-03-2020 Patient encounter procedure ELIZABETH MAI [facility] Procedures Date Procedure Procedure Detail Performing Clinician Start: 11-28-2023 Follow-up visit Follow-up PAM MITTAL Start: 11-27-2023 End: 11-27-2023 Psychotherapy w/patient 60 minutes Generalized anxiety disorder Claribel ZARATE Work Phone: Comment on above: Generalized anxiety disorder (Primary Dx) Start: 11-14-2023 End: 11-14-2023 Psychotherapy w/patient 60 minutes Post traumatic stress disorder (PTSD) Claribel ZARATE Work Phone: Comment on above: Post traumatic stres s disorder (PTSD) (Primary Dx); Generalized anxiety disorder Start: 10-30-2023 End: 10-30-2023 Psychiatric diagnostic evaluation Post traumatic stress disorder (PTSD) Claribel ZARATE Work Phone: Comment on above: Post traumatic stres s disorder (PTSD) (Primary Dx) Start: 10-19-2023 End: 10-19-2023 Psychiatric diagnostic eval w/medical services Bipolar depression ([facility]-HCC) Yashira Mi ELECTRICIAN AIRCRAFT-UNHAIRING MACHINE OPERATOR Work Phone: Comment on above: Generalized anxiety disorder (Primary Dx); Bipolar depression ([facility]-HCC); Post traumatic stress disorder (PTSD); Attention deficit hyperactivity disorder, combined type Start: 10-08-2023 Gluc bld gluc mntr d ev cleared fda spec home use Harley Thacker ELECTRICIAN AIRCRAFTAlandia Communication SystemsUNHAIRING MACHINE OPERATOR Work Phone: Start: 10-08-2023 Adult depression screening assessment Harley Thacker ELECTRICIAN AIRCRAFTAlandia Communication SystemsUNHAIRING MACHINE OPERATOR Work Phone: Start: 04-10-2022 OR Wound Debridement/I&D/Hydraden itis (Right) MD John Carlson Work Phone: Start: 03-13-2022 OR Wound Debridement/I&D/Hydraden itis (Not Applicable) MD John Carlson Work Phone: Start: 02-13-2022 OR Wound Debridement/I&D/Hydraden itis (Bilateral) MD John Carlson Work Phone: Aerobic microbial culture MD John Carlson Work Phone: Aerobic microbial culture MD John Carlson Work Phone: Aerobic microbial culture MD John Carlson Work Phone: Anaerobic microbial culture MD John Carlson Work Phone: Anaerobic microbial culture MD John Carlson Work Phone: Anaerobic microbial culture MD John Carlson Work Phone: Investigation of transfusion reaction MD John Carlson Work Phone: Investigation of transfusion reaction MD John Carlson Work Phone: Investigation of transfusion reaction MD John Carlson Work Phone: Plan of Treatment Date Care Activity Detail Author Start: 12-06-2024 Adult BMI Screening Adult BMI Screening [facility] Start: 12-06-2024 Diabetic foot examination Diabetic Foot Exam [facility] Start: 12-06-2024 Tobacco Screening Tobacco Screening [facility] Start: 11-27-2024 Adult BMI Screening Adult BMI Screening [facility] Start: 11-27-2024 Tobacco Screening Tobacco Screening [facility] Start: 11-13-2024 Adult BMI Screening Adult BMI Screening [facility] Start: 11-13-2024 Tobacco Screening Tobacco Screening [facility] Start: 11-11-2024 Tobacco Screening Tobacco Screening [facility] Start: 11-08-2024 Tobacco Screening Tobacco Screening [facility] Start: 11-06-2024 Adult BMI Screening Adult BMI Screening [facility] Start: 11-06-2024 Tobacco Screening Tobacco Screening [facility] Start: 10-19-2024 Adult BMI Screening Adult BMI Screening [facility] Start: 10-19-2024 Tobacco Screening Tobacco Screening [facility] Start: 10-08-2024 Adult BMI Screening Adult BMI Screening [facility] Start: 10-08-2024 Depression Screening Depression Screening [facility] Start: 10-08-2024 Tobacco Screening Tobacco Screening [facility] Start: 05-04-2024 Influenza vaccination [facility] Start: 03-20-2024 End: 12-19-2024 CBC W Auto Differential panel - Blood COMPLETE BLOOD COUNT AND DIFFERENTIAL Lab Routine Factor V Leiden (HCC) MTHFR mutation Primary hypercoagulable state (HCC) Iron deficiency anemia, unspecified iron deficiency anemia type Expected: 03/20/2024 (Approximate), Expires: 12/19/2024 [facility] Work Phone: Comment on above: Expected: 03/20/2024 (Approximate), Expi res: 12/19/2024 Start: 03-20-2024 End: 12-19-2024 Cobalamin (Vitamin B12) [Mass/volume] in Serum or Plasma VITAMIN B12 Lab Routine Factor V Leiden (HCC) MTHFR mutation Primary hypercoagulable state (HCC) Iron deficiency anemia, unspecified iron deficiency anemia type Expected: 03/20/2024 (Approximate), Expires: 12/19/2024 [facility] Work Phone: Comment on above: Expected: 03/20/2024 (Approximate), Expi res: 12/19/2024 Start: 03-20-2024 End: 12-19-2024 Comprehensive metabolic 2000 panel - Serum or Plasma COMPREHENSIVE METABOLIC PANEL Lab Routine Factor V Leiden (HCC) MTHFR mutation Primary hypercoagulable state (HCC) Iron deficiency anemia, unspecified iron deficiency anemia type Expected: 03/20/2024 (Approximate), Expires: 12/19/2024 [facility] Work Phone: Comment on above: Expected: 03/20/2024 (Approximate), Expi res: 12/19/2024 Start: 03-20-2024 End: 12-19-2024 Ferritin [Mass/volume] in Serum or Plasma FERRITIN Lab Routine Factor V Leiden (HCC) MTHFR mutation Primary hypercoagulable state (HCC) Iron deficiency anemia, unspecified iron deficiency anemia type Expected: 03/20/2024 (Approximate), Expires: 12/19/2024 [facility] Work Phone: Comment on above: Expected: 03/20/2024 (Approximate), Expi res: 12/19/2024 Start: 03-20-2024 End: 12-19-2024 Folate [Mass/volume] in Serum or Plasma FOLATE, SERUM Lab Routine Factor V Leiden (HCC) MTHFR mutation Primary hypercoagulable state (HCC) Iron deficiency anemia, unspecified iron deficiency anemia type Expected: 03/20/2024 (Approximate), Expires: 12/19/2024 [facility] Work Phone: Comment on above: Expected: 03/20/2024 (Approximate), Expi res: 12/19/2024 Start: 03-20-2024 End: 12-19-2024 Iron and Iron binding capacity panel - Serum or Plasma IRON AND TIBC Lab Routine Factor V Leiden (HCC) MTHFR mutation Primary hypercoagulable state (HCC) Iron deficiency anemia, unspecified iron deficiency anemia type Expected: 03/20/2024 (Approximate), Expires: 12/19/2024 [facility] Work Phone: Comment on above: Expected: 03/20/2024 (Approximate), Expi res: 12/19/2024 Start: 01-02-2024 End: 04-02-2024 Homocysteine [Moles/volume] in Serum or Plasma HOMOCYSTEINE Lab Routine Factor V Leiden (HCC) Gastrointestinal hemorrhage, unspecified gastrointestinal hemorrhage type Iron deficiency anemia, unspecified iron deficiency anemia type MTHFR mutation Primary hypercoagulable state (HCC) History of pulmonary embolism Expected: 01/02/2024 (Approximate), Expires: 04/02/2024 [facility] Work Phone: Comment on above: Expected: 01/02/2024 (Approximate), Expi res: 04/02/2024 Start: 12-25-2023 End: 12-25-2023 Patient encounter procedure 12/25/2023 9:30 AM EDT Off ice Visit [facility] [address] [place] [address] Claribel Olson LISW [address] [place] [address] [facility] Start: 12-12-2023 End: 12-12-2023 Patient encounter procedure 12/12/2023 9:30 AM EDT Appointment [facility] [address] [place] [address] [facility] Start: 12-11-2023 End: 12-11-2023 Patient encounter procedure 12/11/2023 9:30 AM EDT Off ice Visit [facility] [address] [place] [address] Claribel Olson LISW [address] [place] [address] [facility] Start: 12-10-2023 End: 12-10-2023 Admission to same day surgery center 12/10/2023 12:30 PM EDT - 12/10/2023 1:00 PM EDT Surgery [facility] [address] [place] [phone] Collins Mejia, DO [address] [place], [place] [id number] ESOPHAGOGASTRODUODENOSCOPY DIAGNOSTIC [87783 (CPT )] [facility] Comment on above: ESOPHAGOGASTRODUODENOSCOPY DIAGNOSTIC [4 3235 (CPT )] Start: 12-10-2023 End: 12-10-2023 Esophagogastroduodenoscopy transoral diagnostic ESOPHAGOGASTRODUODENOSCOPY DIAGNOSTIC gastroesophageal reflux, nausea, vomiting 12/10/2023 12:30 PM EDT [facility] Start: 12-10-2023 Subsequent hospital visit by physician 12/10/2023 12:30 PM EDT Hospital Encounter [facility] [address] [place] [address] [phone] Collins Mejia, DO [address] [place], [place] [phone] [facility] Start: 12-10-2023 End: 12-10-2023 Admission to same day surgery center 12/10/2023 7:30 AM EDT - 12/10/2023 8:00 AM EDT Surgery [facility] [address] [place] [address] Collins Mejia, DO [address] [place], [place] [id number] ESOPHAGOGASTRODUODENOSCOPY DIAGNOSTIC [39485 (CPT )] [facility] Comment on above: ESOPHAGOGASTRODUODENOSCOPY DIAGNOSTIC [4 3235 (CPT )] Start: 12-10-2023 End: 12-10-2023 Esophagogastroduodenoscopy transoral diagnostic ESOPHAGOGASTRODUODENOSCOPY DIAGNOSTIC gastroesophageal reflux, nausea, vomiting 12/10/2023 7:30 AM EDT [facility] Start: 12-10-2023 Subsequent hospital visit by physician 12/10/2023 7:30 AM EDT Hospital Encounter [facility] [address] [place] [phone] Collins Mejia DO [address] [place] [address] [facility] Start: 12-07-2023 End: 12-07-2023 Patient encounter procedure 12/07/2023 11:00 AM EDT Office Visit [facility] [address] [place] [address] [place] [address] Harley Thacker APRN-UNHAIRING MACHINE OPERATOR [address] [place] [address], [facility] [address] [facility] Start: 11-28-2023 End: 11-28-2023 Patient encounter procedure 11/28/2023 10:15 AM EDT Office Visit [facility] [address] [phone] Pam Mittal MD [address] [place] [address] [facility] Start: 11-27-2023 End: 11-27-2023 Patient encounter procedure [facility] Start: 11-21-2023 End: 11-12-2024 Echo complete W/O contrast Echo complete W/O contrast Echocardiography Routine Preoperative clearance Abnormal echocardiogram History of pulmonary embolism Atrial mass Expected: 11/21/2023 (Approximate), Expires: 11/12/2024 [facility] Comment on above: Expected: 11/21/2023 (Approximate), Expi res: 11/12/2024 Start: 11-19-2023 End: 11-19-2023 Admission to same day surgery center 11/19/2023 12:15 PM EDT - 11/19/2023 12:45 PM EDT Surgery [facility] [address] [place] [phone] Collins Mejia, DO [address] [place] [address] ESOPHAGOGASTRODUODENOSCOPY DIAGNOSTIC [44950 (CPT )] [facility] Comment on above: ESOPHAGOGASTRODUODENOSCOPY DIAGNOSTIC [4 3235 (CPT )] Start: 11-19-2023 End: 11-19-2023 Anesthesia consultation 11/19/2023 12:15 PM EDT Anesthesia Event [facility] [address] [facility] [phone] Mayra Raya, DO [address] [facility], [place] [id number] [facility] Start: 11-19-2023 End: 11-19-2023 Esophagogastroduodenoscopy transoral diagnostic ESOPHAGOGASTRODUODENOSCOPY DIAGNOSTIC gastroesophageal reflux, nausea, vomiting 11/19/2023 12:15 PM EDT [facility] Start: 11-19-2023 Subsequent hospital visit by physician [facility] Start: 11-15-2023 End: 11-12-2024 XR Chest PA and Lateral X-ray chest 2 views Imaging Routine Preoperative clearance Expected: 11/15/2023 (Approximate), Expires: 11/12/2024 [employer] Work Phone: Comment on above: Expected: 11/15/2023 (Approximate), Expi res: 11/12/2024 Start: 11-15-2023 End: 11-15-2023 Patient encounter procedure 11/15/2023 10:30 AM EDT Appointment [facility] [address] [place] [phone] [facility] Start: 11-14-2023 End: 11-14-2023 Patient encounter procedure 11/14/2023 3:15 PM EDT Off ice Visit [facility] [address] 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 [address] [place] [address] Claribel Olson LISW [address] [place] [address] [facility] Start: 11-09-2023 End: 11-09-2023 Patient encounter procedure 11/09/2023 9:45 AM EST Procedure visit [facility] - Pre Admit [address] [place] [phone] [facility] Start: 11-07-2023 End: 11-07-2023 Anesthesia consultation 11/07/2023 11:59 PM EST Anesthesia Event [facility] [address] [facility] [phone] Mayra Raya, DO [address] [place] [address] [facility] Start: 11-07-2023 End: 11-07-2023 Patient encounter procedure 11/07/2023 10:00 AM EST Office Visit [facility] [address] [place] [address] Corine Catherine, ELECTRICIAN AIRCRAFT-UNHAIRING MACHINE OPERATOR [address] [place] [address] [facility] Start: 10-30-2023 End: 10-30-2023 Patient encounter procedure 10/30/2023 9:30 AM EST Off ice Visit [facility] [address] [place] [phone] Claribel Olson LISW [address] [place] [address] [facility] Start: 10-19-2023 End: 10-19-2023 Patient encounter procedure 10/19/2023 10:00 AM EST Office Visit [facility] [address] [place] [phone] Yashira Mi, ELECTRICIAN AIRCRAFT-UNHAIRING MACHINE OPERATOR [address] [place] [address] [facility] Start: 09-03-2023 Behavioral Health Screening Behavioral Health Screening [facility] Start: 09-03-2023 Depression Assessment Depression Assessment [facility] Start: 05-04-2023 Covid-19 Vaccine () Covid-19 Vaccine () [facility] Start: 05-04-2023 Influenza vaccination [facility] Start: 05-03-2022 Registered Recurring Registered Recurring [facility]Infusion Therapy - O/P Start: 04-21-2022 Registered Recurring Registered Recurring [facility]-Infusion Therapy - O/P Start: 04-10-2022 [facility] Work Phone: Start: 04-10-2022 [facility] Work Phone: Start: 04-10-2022 OR Wound Debridement/I&D/Hydradenitis (Right) OR Wound Debridement/I&D/Hydradenitis (Right) [facility] Start: 04-10-2022 End: 04-10-2022 Admission to same day surgery center Departed Surgical Day Care [facility] [place] Start: 04-06-2022 End: 04-06-2022 Patient encounter procedure Departed Clinical [facility]-Pre-Surgical Testing Start: 03-13-2022 End: 03-13-2022 [facility] Work Phone: Start: 02-13-2022 End: 02-13-2022 [facility] Work Phone: Start: 05-04-2020 Influenza vaccination given Sequential Influenza Vacci ne (#1) [facility] Start: 11-17-2019 Screening for malignant neoplasm of cervix HPV Testing [facility] Start: 09-03-2019 DTaP,Tdap and Td Vaccines (8 - Td or Tdap) DTaP,Tdap and Td Vaccines (8 - Td or Tdap) [facility] Start: 09-03-2019 Urine microalbumin profile DTaP,Tdap,Td Vaccine (8 - T d or Tdap) [facility] Start: 06-10-2019 Tetanus vaccination Tetanus: Every 10yrs [facility] Start: 2010 Screening for malignant neoplasm of cervix [facility] Start: 11-17-2007 Adult BMI Follow Up Plan Adult BMI Follow Up Plan [facility] Start: 11-17-2007 Hepatitis C antibody, confirmatory test Hepatitis C Screening [facility] Start: 11-17-2007 Hepatitis C screening Hepatitis C Screening [facility] Start: 11-17-2007 HIV screening HIV Screening [facility] Start: 2004 HIV screening HIV Screening [facility] Start: 2001 Adolescent depression screening assessment Depression Screening (PHQ9) [facility] Start: 1992 History and physical examination, annual for health maintenance Wellness Visit [facility] Start: 1989 Glaucoma screening Diabetic Ophthalmology Exam [employer] [facility] Start: 1989 Screening for malignant neoplasm of cervix Pap Smear [facility] Calprotectin [Mass/m ass] in Stool Calprotectin stool Lab Routine Diarrhea, unspecified type 11/07/2023 10:[address] [facility] [employer] [facility] End: 11-06-2024 Calprotectin stool Calprotectin stool Lab Routine Diarrhea, unspecified type 1 Occurrences starting 11/07/2023 until 11/06/2024 [facility] Comment on above: 1 Occurrences starting 11/07/2023 until 11/06/2024 End: 11-28-2024 CBC W Auto Differential panel - Blood CBC + DIFF Lab Routine Factor V Leiden (HCC) Gastrointestinal hemorrhage, unspecified gastrointestinal hemorrhage type Iron deficiency anemia, unspecified iron deficiency anemia type Every 3 weeks for 6 Occurrences starting 11/29/2023 until 11/28/2024 [facility] Work Phone: Comment on above: Every 3 weeks for 6 Occurrences starting 11/29/2023 until 11/28/2024 End: 11-28-2024 Cobalamin (Vitamin B12) [Mass/volume] in Serum or Plasma VITAMIN B12 BLOOD Lab Routine Factor V Leiden (HCC) Gastrointestinal hemorrhage, unspecified gastrointestinal hemorrhage type Iron deficiency anemia, unspecified iron deficiency anemia type Every 3 weeks for 6 Occurrences starting 11/29/2023 until 11/28/2024 [facility] Work Phone: Comment on above: Every 3 weeks for 6 Occurrences starting 11/29/2023 until 11/28/2024 End: 11-28-2024 Comprehensive metabolic 2000 panel - Serum or Plasma COMP METABOLIC PANEL Lab Routine Factor V Leiden (HCC) Gastrointestinal hemorrhage, unspecified gastrointestinal hemorrhage type Iron deficiency anemia, unspecified iron deficiency anemia type Every 3 weeks for 6 Occurrences starting 11/29/2023 until 11/28/2024 [facility] Work Phone: Comment on above: Every 3 weeks for 6 Occurrences starting 11/29/2023 until 11/28/2024 End: 12-06-2024 Cytopathology procedure, preparation of smear, genital source Pap Smear Pathology and Cytology Routine Wellness examination Encounter for Papanicolaou smear for cervical cancer screening 1 Occurrences starting 12/07/2023 until 12/06/2024 [employer] Work Phone: Comment on above: 1 Occurrences starting 12/07/2023 until 12/06/2024 End: 11-06-2024 Esophagogastroduodenoscopy EGD GI Routine Gastroesophageal reflux disease, unspecified whether esophagitis present Nausea and vomiting, unspecified vomiting type 1 Occurrences starting 11/07/2023 until 11/06/2024 [employer] Work Phone: Comment on above: 1 Occurrences starting 11/07/2023 until 11/06/2024 Esophagogastroduoden oscopy transoral diagnostic ESOPHAGOGASTRODUODENOSCOPY DIAGNOSTIC gastroesophageal reflux, nausea, [facility] End: 11-28-2024 Ferritin [Mass/volume] in Serum or Plasma FERRITIN BLD Lab Routine Factor V Leiden (HCC) Gastrointestinal hemorrhage, unspecified gastrointestinal hemorrhage type Iron deficiency anemia, unspecified iron deficiency anemia type Every 3 weeks for 6 Occurrences starting 11/29/2023 until 11/28/2024 [facility] Work Phone: Comment on above: Every 3 weeks for 6 Occurrences starting 11/29/2023 until 11/28/2024 End: 11-28-2024 Folate [Mass/volume] in Serum or Plasma FOLATE SERUM Lab Routine Factor V Leiden (HCC) Gastrointestinal hemorrhage, unspecified gastrointestinal hemorrhage type Iron deficiency anemia, unspecified iron deficiency anemia type Every 3 weeks for 6 Occurrences starting 11/29/2023 until 11/28/2024 [facility] Work Phone: Comment on above: Every 3 weeks for 6 Occurrences starting 11/29/2023 until 11/28/2024 End: 12-06-2024 High risk HPV w/yoshi High risk HPV w/yoshi Lab Routine Wellness examination Encounter for Papanicolaou smear for cervical cancer screening 1 Occurrences starting 12/07/2023 until 12/06/2024 [employer] Comment on above: 1 Occurrences starting 12/07/2023 until 12/06/2024 End: 11-28-2024 Iron and Iron binding capacity panel - Serum or Plasma IRON + TIBC Lab Routine Factor V Leiden (HCC) Gastrointestinal hemorrhage, unspecified gastrointestinal hemorrhage type Iron deficiency anemia, unspecified iron deficiency anemia type Every 3 weeks for 6 Occurrences starting 11/29/2023 until 11/28/2024 [facility] Work Phone: Comment on above: Every 3 weeks for 6 Occurrences starting 11/29/2023 until 11/28/2024 Patient Education [facility] Work Phone: Patient referral [facility] Work Phone: [facility] Immunizations Immunization Date Immunization Notes Care Provider Harriet lao 06-15-2014 influenza, seasonal, injectable Harley Thacker ELECTRICIAN AIRCRAFT-UNHAIRING MACHINE OPERATOR Work Phone: [facility] 06-15-2014 influenza virus vacc ine, unspecified formulation Harley Thacker ELECTRICIAN AIRCRAFT-UNHAIRING MACHINE OPERATOR Work Phone: [facility] 09-03-2009 diphtheria and tetan us toxoids, adsorbed for pediatric use Harley Thacker ELECTRICIAN AIRCRAFT-UNHAIRING MACHINE OPERATOR Work Phone: [facility] 06-10-2009 meningococcal polysaccharide (groups A, C, Y and W-135) diphtheria toxoid conjugate vaccine ([id number]) [facility] 06-10-2009 tetanus toxoid, redu iam diphtheria toxoid, and acellular pertussis vaccine, adsorbed [facility] 06-09-2009 influenza virus vacc ine, whole virus Harley Thacker ELECTRICIAN AIRCRAFT-UNHAIRING MACHINE OPERATOR Work Phone: [facility] 06-09-2009 influenza, seasonal, injectable [facility] 06-15-2005 influenza virus vacc ine, whole virus Harley Thacker ELECTRICIAN AIRCRAFT-UNHAIRING MACHINE OPERATOR Work Phone: [facility] 06-15-2005 influenza, seasonal, injectable [facility] 12-14-2003 hepatitis B vaccine, pediatric or pediatric/adolescent dosage [facility] 12-14-2003 hepatitis B vaccine, unspecified formulation Sharif Joseph MD Work Phone: [facility] 08-26-2003 hepatitis B vaccine, pediatric or pediatric/adolescent dosage [facility] 08-26-2003 hepatitis B vaccine, unspecified formulation Sharif Joseph MD Work Phone: [facility] 03-30-2003 hepatitis B vaccine, pediatric or pediatric/adolescent dosage [facility] 03-30-2003 hepatitis B vaccine, unspecified formulation Sharif Joseph MD Work Phone: [facility] 02-22-1996 diphtheria, tetanus toxoids and acellular pertussis vaccine [facility] 02-22-1996 diphtheria, tetanus toxoids and acellular pertussis vaccine, unspecified formulation Harley Thacker ELECTRICIAN AIRCRAFT-UNHAIRING MACHINE OPERATOR Work Phone: [facility] 12-24-1995 measles, mumps and rubella virus vaccine [facility] 12-24-1995 poliovirus vaccine, inactivated [facility] 12-24-1995 trivalent poliovirus vaccine, live, oral Harley Thacker ELECTRICIAN AIRCRAFT-UNHAIRING MACHINE OPERATOR Work Phone: [facility] 05-14-1991 diphtheria, tetanus toxoids and acellular pertussis vaccine [facility] 05-14-1991 diphtheria, tetanus toxoids and pertussis vaccine Harley Thacker ELECTRICIAN AIRCRAFT-UNHAIRING MACHINE OPERATOR Work Phone: [facility] 05-14-1991 haemophilus influenz ae type b vaccine, conjugate unspecified formulation [facility] 05-14-1991 poliovirus vaccine, inactivated [facility] 05-14-1991 trivalent poliovirus vaccine, live, oral Harley Thacker ELECTRICIAN AIRCRAFT-UNHAIRING MACHINE OPERATOR Work Phone: [facility] 02-26-1991 measles, mumps and rubella virus vaccine [facility] 12-18-1990 haemophilus influenz ae type b vaccine, conjugate unspecified formulation [facility] 07-01-1990 diphtheria, tetanus toxoids and acellular pertussis vaccine [facility] 07-01-1990 diphtheria, tetanus toxoids and pertussis vaccine Harley Thacker ELECTRICIAN AIRCRAFT-UNHAIRING MACHINE OPERATOR Work Phone: [facility] 04-29-1990 diphtheria, tetanus toxoids and acellular pertussis vaccine [facility] 04-29-1990 diphtheria, tetanus toxoids and pertussis vaccine Harley Thacker ELECTRICIAN AIRCRAFT-UNHAIRING MACHINE OPERATOR Work Phone: [facility] 04-29-1990 poliovirus vaccine, inactivated [facility] 04-29-1990 trivalent poliovirus vaccine, live, oral Harley Thacker ELECTRICIAN AIRCRAFT-UNHAIRING MACHINE OPERATOR Work Phone: [facility] 02-27-1990 diphtheria, tetanus toxoids and acellular pertussis vaccine [facility] 02-27-1990 diphtheria, tetanus toxoids and pertussis vaccine Harley Thacker ELECTRICIAN AIRCRAFT-UNHAIRING MACHINE OPERATOR Work Phone: [facility] 02-27-1990 poliovirus vaccine, inactivated [facility] 02-27-1990 trivalent poliovirus vaccine, live, oral Harley Thacker ELECTRICIAN AIRCRAFT-UNHAIRING MACHINE OPERATOR Work Phone: [facility] Payers Date Payer Category Payer Medicaid [place] [id number] 2020-Present [id number] 2019 Medicaid 2019 Medicare MEDICARE MEDICAR E PART A & B [id number] 2019-Present [place] [id number] 2019 Medicare 1989 Unknown [id number] 2.16.840.1.920256.3.579.2.903 1989 Unknown [id number] 2.16.840.1.869101.3.579.2.593 1989 Unknown [id number] 2.16.840.1.111872.3.579.2.593 1989 Unknown [id number] 2.16.840.1.874761.3.579.2.593 1989 Unknown [id number] 2.16.840.1.209543.3.579.2.593 1989 Unknown [id number] 2.16.840.1.707001.3.579.2.593 1989 Unknown [id number] 2.16.840.1.629771.3.579.2.593 1989 Unknown [id number] 2.16.840.1.319661.3.579.2.593 1989 Unknown [id number] 2.16.840.1.189122.3.579.2.593 1989 Unknown [id number] 2.16.840.1.608471.3.579.2.593 1989 Unknown [id number] 2.16.840.1.791700.3.579.2.593 1989 Unknown [id number] 2.16.840.1.255001.3.579.2.593 1989 Unknown [id number] 2.16.840.1.262290.3.579.2.593 1989 Unknown [id number] 2.16.840.1.689127.3.579.2.196 1989 Unknown [id number] 2.16.840.1.401981.3.579.2.196 1989 Unknown [id number] 2.16.840.1.930459.3.579.2.196 1989 Unknown [id number] 2.16.840.1.928336.3.579.2.196 1989 Unknown [id number] 2.16.840.1.330911.3.579.2.1285 1989 Unknown [id number] 2.16.840.1.639921.3.579.2.1285 1989 Unknown [id number] 2.16.840.1.910959.3.579.2.1285 1989 Unknown [id number] 2.16.840.1.021606.3.579.2.1285 1989 Unknown [id number] 2.16.840.1.830306.3.579.2.1285 1989 Unknown [id number] 2.16.840.1.188671.3.579.2.1285 1989 Unknown [id number] 2.16.840.1.555448.3.579.2.1285 1989 Unknown [id number] 2.16.840.1.492842.3.579.2.1285 1989 Unknown [id number] 2.16.840.1.465867.3.579.2.1285 1989 Unknown [id number] 2.16.840.1.879413.3.579.2.1285 1989 Unknown [id number] 2.16.840.1.982787.3.579.2.1285 1989 Unknown [id number] [id number] 1989 Unknown [id number] 2.16.840.1.101118.3.579.2.1285 1989 Unknown [id number] 2.16.840.1.202255.3.579.2.1285 1989 Unknown [id number] 2.16.840.1.347671.3.579.2.1285 1989 Unknown [id number] 2.16.840.1.789095.3.579.2.1285 1989 Unknown [id number] 2.16.840.1.148976.3.579.2.1285 1989 Unknown [id number] 2.16.840.1.144683.3.579.2.1285 1989 Unknown [id number] 2.16.840.1.659137.3.579.2.1285 1989 Unknown [id number] 2.16.840.1.865284.3.579.2.1285 1989 Unknown [id number] 2.16.840.1.113984.3.579.2.1285 1989 Unknown [id number] 2.16.840.1.407240.3.579.2.1285 1989 Unknown [id number] 2.16.840.1.673676.3.579.2.1285 1989 Unknown [id number] 2.16.840.1.458994.3.579.2.1285 1989 Unknown [id number] 2.16.840.1.190031.3.579.2.1285 1989 Unknown [id number] 2.16.840.1.523069.3.579.2.1285 1989 Unknown [id number] 2.16.840.1.362273.3.579.2.1285 1989 Unknown [id number] 2.16.840.1.960182.3.579.2.1285 1989 Unknown [id number] 2.16.840.1.037748.3.579.2.1285 1989 Unknown [id number] 2.16.840.1.747108.3.579.2.1285 1989 Unknown [id number] 2.16.840.1.144366.3.579.2.1259 1960 Medicaid [id number] 1960 Medicare [id number] 1960 Self-pay [id number] Unknown [id number] [id number]1 Social History Date Type Detail Facility Start: 08-02-2020 End: 11-27-2023 Tobacco smoking status NHIS Former smoker [facility] Start: 08-02-2020 End: 11-29-2023 Cigarettes smoked current (pack per day) - Reported [facility] Start: 08-02-2020 End: 11-27-2023 Tobacco use and exposure Never used [facility] Start: 08-02-2020 Alcohol intake Lifetime non-drinker (finding) [facility] Start: 06-03-2020 History SDOH Alcohol Frequency 1 [facility] Start: 1990 Sex Assigned At Not on file [facility] Exposure to SARS-CoV -2 (event) Not sure [facility] Start: 1990 Sex Assigned At Female [facility] End: 09-03-2013 History of tobacco use Current smoker [facility] End: 09-03-2013 History of tobacco use Cigarette Smoker [facility] Start: 10-13-2023 End: 11-27-2023 Alcohol intake Current non-drinker of alcohol (finding) [facility] Start: 10-08-2023 End: 11-29-2023 Tobacco use panel [facility] How hard is it for y ou to pay for the very basics like food, housing, medical care, and heating Somewhat hard [facility] Adolescent depressio n screening assessment 14 [facility] Start: 11-11-2022 Gender identity Identifies as female gender (finding) [facility] Start: 11-11-2022 Sexual orientation Heterosexual (finding) [facility] History of tobacco use Passive smoker [facility] Goals Date Patient Goal Desired Activity /State Clinical Notes 03-01-2022 to 12-20-2023 Patient InstructionsAbSharif vides MD - 12/20/2023 10:00 AM CHERRI Pizarro - 12/07/2023 11:00 AM EDTPerioperative Nursing Note - Berkley Lake RN - 12/05/2023 2:30 PM EDT Note Date & Type Note Facility 12-20-2023 Note HNO ID: [id number] Author: SHARIF JOSEPH MD Service: ? Author Type: Physician Type: Progress Notes Filed: 12/22/2023 06:44 Note Text: NAME: Margaret Prieto CLINIC NO.: [id number] DATE OF SERVICE: December 20, 2023 (angelikasc) Some elements in this clinic note that are critical to medical decision making have been carefully reviewed and included from a prior clinic note dated: November 29, 2023 (Jonelle) Referring Provider: Harley Thacker APRN-UNHAIRING MACHINE OPERATOR Additional Clinicians involved in Margaret Prieto's care: DIAGNOSIS: Hypercoag state. ASSESSMENT: Pulmonary embolus - semi-provoked - few weeks after cholecystectomy in a period. Very strong family history with Leiden factor V heterozygosity. Stopped her blood thinner in September 2017 Recommended lifelong in July 2018. Patient continued through summer and stopped secondary to multiple other issues including multiple medications and bleeding complications of hidradenitis and personal issues Considering severe obesity and hidradenitis which had been very limiting to her quality of life I had offered her referral to consider for gastric bypass surgery. Likely iron deficiency based on microcytosis. Her ferrous sulfate 325 mg by mouth every other day. In late November 2023, she returned more than 3 years later to re-establish care. She had been off of her anticoagulation despite prior recommendations for life-long anticoagulation and also did not improve any mitigating factors (weight and sleep apnea). However, she is being investigated for GI loss of blood and had endoscopy completed recently (December 2023), which was benign. She is therefore, safe to resume anticoagulation with Arixtra. PLAN: RTC in 3 months Labs same day Start Arixtra 10mg daily Resume Foltx Resume iron tablets HPI: CASE HISTORY: Reverse Chronological Order 12/10/2023 - Endoscopy: Antrum biopsy: - Fragments of gastric mucosa with no significant histopathologic abnormality Distal esophagus biopsy: - Fragment of gastric mucosa with reactive changes suggestive of mild chronic reflux-related changes - Squamous mucosa, dysplasia, or intestinal metaplasia is not identified 2023 - CTA Chest: Normal CTA chest. Resolution of the bilateral lower lobe pulmonary emboli described on the previous examination dated 11/23/2022. 11/23/2022 - CTA Chest: Almost complete resolution of right lower lobe and left lower lobe subsegmental pulmonary emboli since 11/11/2022. There is no new pulmonary embolus. Interval development of large area of airspace disease with air bronchograms in the right lower lobe may be pulmonary infarct. Due to development of small right hilar lymph nodes, an infectious etiology, such as pneumonia, cannot be excluded. Please correlate clinically 11/13/2022 - ECHO: LVEF: 60-65% 11/11/2022 - CTA Chest: Acute pulmonary emboli as described. No right heart strain. Small left pleural effusion. 11/11/2022-11/18/2022 - Admitted for pulmonary embolism 10/30/2021 - US Venous Incompetency [facility] RIGHT: NO EVIDENCE of deep or superficial vein thrombosis of the lower extremity. LEFT: ACUTE deep tibioperoneal vein thrombosis (DVT). NO EVIDENCE of superficial vein thrombosis of the lower extremity. 08/29/2021 - US Venous Incompetency [facility] BILATERAL: NO EVIDENCE of deep vein thrombosis (DVT) of the lower extremity. 2014 - Pulmonary embolism Updated Visit, December 20, 2023: Margaret returns today. EGD on 12/09 revealed benign findings. She endorses abnormal coughing, so will be following with pulmonology. She will be starting on Cosentyx for hidradenitis. Stop Eliquis, start Arixtra. I would also like her to resume Foltx and iron tablets. Updated Visit, November 29, 2023: Reestablish Care Margaret Prieto presents today to reestablish her care. She is a 33 year old female who has a prior history of heterozygous Factor V Leiden mutation and MTHFR mutation. She denies current clots. She has been having difficulty taking oral medications due to a burning sensation so she is not currently taking a blood thinner. She would like to start on an anticoagulation injection, instead of an oral medication. Her ankles are swollen bilaterally. Reports a having a headache for about a week - likely related to her blood pressure. She has not been using her CPAP due to claustrophobia. She also reports a worsening cough. From my perspective she is safe to proceed with scopes. After scopes, we will consider anticoagulation injections with Arixtra and Foltx. From Harley Thacker's Progress Note on 11/14/2023: Assessment/Plan: Previous results reviewed, including ECHO from 11/13/2022 and 11/23/2023 from [facility] which states -Echogenic density seen wihin the right atrium, likely represents a prominent Eustachian valve (more content not included)... [facility] 12-20-2023 Instructions Harley Toro - 12/20/2023 10:37 AM EDT RTC in 3 months Labs same day Start Arixtra 10mg daily Resume Foltx Resume iron tablets documented in this encounter [facility] 12-20-2023 History of Present illness Narrative Images from the original note were not included. NAME: Margaret Prieto [facility] NO.: [id number] DATE OF SERVICE: December 20, 2023 ([facility]) Some elements in this clinic note that are critical to medical decision making have been carefully reviewed and included from a prior clinic note dated: November 29, 2023 (Jonelle) Referring Provider: Harley Thacker APRN-UNHAIRING MACHINE OPERATOR Additional Clinicians involved in Margaret Prieto's care: DIAGNOSIS: Hypercoag state. ASSESSMENT: Pulmonary embolus - semi-provoked - few weeks after cholecystectomy in a period. Very strong family history with Leiden factor V heterozygosity. Stopped her blood thinner in September 2017 Recommended lifelong in July 2018. Patient continued through summer and stopped secondary to multiple other issues including multiple medications and bleeding complications of hidradenitis and personal issues Considering severe obesity and hidradenitis which had been very limiting to her quality of life I had offered her referral to consider for gastric bypass surgery. Likely iron deficiency based on microcytosis. Her ferrous sulfate 325 mg by mouth every other day. In late November 2023, she returned more than 3 years later to re-establish care. She had been off of her anticoagulation despite prior recommendations for life-long anticoagulation and also did not improve any mitigating factors (weight and sleep apnea). However, she is being investigated for GI loss of blood and had endoscopy completed recently (December 2023), which was benign. She is therefore, safe to resume anticoagulation with Arixtra. PLAN: RTC in 3 months Labs same day Start Arixtra 10mg daily Resume Foltx Resume iron tablets HPI: CASE HISTORY: Reverse Chronological Order 12/10/2023 - Endoscopy: Antrum biopsy: - Fragments of gastric mucosa with no significant histopathologic abnormality Distal esophagus biopsy: - Fragment of gastric mucosa with reactive changes suggestive of mild chronic reflux-related changes - Squamous mucosa, dysplasia, or intestinal metaplasia is not identified 2023 - CTA Chest: Normal CTA chest. Resolution of the bilateral lower lobe pulmonary emboli described on the previous examination dated 11/23/2022. 11/23/2022 - CTA Chest: Almost complete resolution of right lower lobe and left lower lobe subsegmental pulmonary emboli since 11/11/2022. There is no new pulmonary embolus. Interval development of large area of airspace disease with air bronchograms in the right lower lobe may be pulmonary infarct. Due to development of small right hilar lymph nodes, an infectious etiology, such as pneumonia, cannot be excluded. Please correlate clinically 11/13/2022 - ECHO: LVEF: 60-65% 11/11/2022 - CTA Chest: Acute pulmonary emboli as described. No right heart strain. Small left pleural effusion. 11/11/2022-11/18/2022 - Admitted for pulmonary embolism 10/30/2021 - US Venous Incompetency [facility] RIGHT: NO EVIDENCE of deep or superficial vein thrombosis of the lower extremity. LEFT: ACUTE deep tibioperoneal vein thrombosis (DVT). NO EVIDENCE of superficial vein thrombosis of the lower extremity. 08/29/2021 - US Venous Incompetency [facility] BILATERAL: NO EVIDENCE of deep vein thrombosis (DVT) of the lower extremity. 2014 - Pulmonary embolism Updated Visit, December 20, 2023: Margaret returns today. EGD on 12/09 revealed benign findings. She endorses abnormal coughing, so will be following with pulmonology. She will be starting on Cosentyx for hidradenitis. Stop Eliquis, start Arixtra. I would also like her to resume Foltx and iron tablets. Updated Visit, November 29, 2023: Reestablish Care Margaret Prieto presents today to reestablish her care. She is a 33 year old female who has a prior history of heterozygous Factor V Leiden mutation and MTHFR mutation. She denies current clots. She has been having difficulty taking oral medications due to a burning sensation so she is not currently taking a blood thinner. She would like to start on an anticoagulation injection, instead of an oral medication. Her ankles are swollen bilaterally. Reports a having a headache for about a week - likely related to her blood pressure. She has not been using her CPAP due to claustrophobia. She also reports a worsening cough. From my perspective she is safe to proceed with scopes. After scopes, we will consider anticoagulation injections with Arixtra and Foltx. From Harley Thacker's Progress Note on 11/14/2023: Assessment/Plan: Previous results reviewed, including ECHO from 11/13/2022 and 11/23/2023 from [facility] which states -Echogenic density seen wihin the right atrium, likely represents a prominent Eustachian valve vs. Posterior right atrial wall vs. Mass. This has not been re-evaluated. ECHO ordered. Also, CTA chest ordered d/t this abnormal ECHO stating possible mass. Margaret also has hx of PE, and reports she has occasional chest heaviness and shortness of breath. She also has not been on anticoagulation and has not followed with hematology. Recent labs completed 11/09/2023 ordered by anesthesiology- CBC, INR/PT, APTT- WNL. Chest Xray ordered as well for surgical clearance. Pending Chest xray, ECHO, and cardiology input and hematology anticoagulation recommendations. Margaret cannot be cleared for procedure at this time. Patient encouraged to follow up with hematology for Factor 5 Leidien mutation, MTHFR mutation and follow up with cardiology for hx of PE, recurrent DVT, and possible abnormal ECHO. Updated Visit, October 28, 2020: Margaret is 29 yo and presents in transition of care as her previous oncologist had left. She complains of right leg pain. Hidradenitis supurtiva is controlled but still irritating. Not on anticoag for THFR also not on foltx Heterozygous FVL - Had heart problems last year - she is being followed by PCP and Cardiology. Trying to lose weight - Updated Visit, October 29, 2019: with Dr. Peoples Had 1 episode of pneumonia this year and her INR was out of the normal range at the time. She was on Xarelto. She quit sometime in the summer. She has a history of hidradenitis and currently trying to get this under better control he had a golf ball sized wounds in her groin also in legs under her armpit. Initial Visit, July 04, 2018: with Dr. Peoples She has heavy periods anyway. Prior History by Dr. Peoples: Past medical history includes hypothyroidism, history of partial thyroidectomy, Leiden factor V. Also HIDRADadenitis, hypertension, depression, anxiety. Outpatient medications include omeprazole. No history of clotting prior to her first . She had very high risk family history and was placed on lovenox for most of her , partly because of her own insistence. She had extensive testing at that time and confirmed Leiden V heterozygosity. uneventful, she was transitioned to heparin in 3rd trimester. In 2012 she had normal TSH, protein S, protein C, MT HFR, anticardiolipin antibodies, lupus anticoagulant, dilute Thierry viper venom, homocystine, Antithrombin III, Protein S, Protein S antigen. Prothrombin mutation was negative. Leiden factor V was heterozygous.She had some extra bleeding at 10/14/2013 but otherwise uneventful. Discharged and 2 or 3 mos later went back in with abd pain determined to be cholecystitis. Her cholecystectomy went ok but a few weeks later noted shortness of breath and chest pain, mostly in L side. She had a few ER visits before diagnosed with PE. She was placed on coumadin for about 2 years. In 2016 she was changed to xarelto per her request. She has previously seen Dr. Ashley carlson [facility]. She has been on Xarelto since April 2017. She stopped her xarelto in about Sep 2017 on her own without her physician recommendation. She did this after a conversation with a pharmacist made her nervous to continue this medication. She is going to consider starting Humira for Hiradenitis from [facility]. A CTA of the chest from February 2016 shows no findings to suggest pulmonary emboli. Possibility of pneumonia. Allergic to amoxicillin, estrogens, Bactrim, Her younger brother also had a massive pulmonary embolus. Mother had two miscarriages and multiple heart attaches. She has a half sister without clotting history. Father has no history of clotting, is hemophiliac. REVIEW OF SYSTEMS Per HPI and otherwise negative by full review of organ systems. ECOG PERFORMANCE STATUS: 0 PHYSICAL EXAMINATION: Vitals: BP 154/90 Pulse 98 Temp (Src) 97.7 (Temporal) Resp 16 Wt 377 lb 3.3 oz (171.1kg) SpO2 97% Body surface area is 2.8 meters squared. Exam limited to gross visualization where appropriate. obese Gen.: This is an age-appropriate patient in no acute distress. Head: Appears atraumatic with no visible lesions. Eyes: Pupils equally round and reactive to light, extraocular muscles are intact. Neck: Supple. Respiratory: Appears to be respiring comfortably. Neurologic: Nonfocal to gross visualization. Alert and oriented 3. Psychiatric: No evidence of inappropriate anxiety or depression. Skin: Visible areas of skin without rash, lesions, wounds or petechiae. Extremities: Ankles swollen bilaterally. ALLERGIES: ALLERGIES Allergen Reactions Ciprofloxacin Hives Other Reaction(s): Unknown Sulfa (Sulfonamide * Hives Other Reaction(s): Unknown Tetanus And Diphthe* Unknown Bactrim [Sulfametho* Unknown Ceclor [Cefaclor] Unknown Estrogens Unknown Penicillins Rash Pertussis Vaccines Unknown Other Reaction(s): Unknown Trimethoprim Hives Amoxicillin Hives MEDICATIONS: metoclopramide HCl (REGLAN) 10 mg tablet Esomeprazole Magnesium 20 mg packet Take 40 mg by mouth. fondaparinux (ARIXTRA) 10 mg/0.8 mL syrg Inject 0.8 mL subcutaneously every 24 hours. folic acid-Vit B6-Vit B12 (FOLTX) 2.5-25-2 mg tab Take 1 tablet by mouth once daily. NURTEC ODT 75 mg disintegrating tablet busPIRone (BUSPAR) 15 mg tablet gabapentin (NEURONTIN) 300 mg capsule Take 300 mg by mouth. cyclobenzaprine HCl (CYCLOBENZAPRINE ORAL) Take by mouth. ARIPiprazole (ABILIFY) 5 mg tablet Take 5 mg by mouth. atomoxetine (STRATTERA) 60 mg capsule Take 60 mg by mouth. DULoxetine (CYMBALTA) 60 mg capsule Take 60 mg by mouth. HYDROcodone-acetaminophen (NORCO) 5-325 mg per tablet Take 1 tablet by mouth. hydrOXYzine pamoate (VISTARIL) 50 mg capsule Take 50 mg by mouth. lamoTRIgine (LAMICTAL) 25 mg tablet Take 50 mg by mouth. liraglutide (VICTOZA) 0.6 mg/ 0.1 ml subcutaneous pen injector Inject 0.6 mg subcutaneously. prazosin (MINIPRESS) 2 mg cap Take 2 mg by mouth. tetracycline (SUMYCIN) 500 mg cap sucralfate (CARAFATE) 1 gram tablet Take 1 g by mouth. spironolactone (ALDACTONE) 25 mg tablet isosorbide mononitrate ER (IMDUR) 30 mg 24 hr tablet hydroCHLOROthiazide (HYDRODIURIL, ESIDRIX) 25 mg tablet Take 25 mg by mouth once daily. acetaminophen (TYLENOL) 325 mg cap Take by mouth. ferrous sulfate 325 mg (65 mg iron) tablet Take 1 tablet by mouth twice daily. buPROPion XL (WELLBUTRIN XL) 150 mg 24 hr tablet Take 150 mg by mouth. cetirizine (ZYRTEC) 10 mg tablet Take 10 mg by mouth. Cholecalciferol, Vitamin D3, 10,000 unit cap doxycycline hyclate (VIBRAMYCIN) 100 mg capsule Take 100 mg by mouth. escitalopram oxalate (LEXAPRO) 5 mg tablet FLUoxetine HCl (PROZAC) 40 mg capsule levothyroxine (SYNTHROID) 50 mcg tablet Lidocaine HCl 3 % crea lisinopril (ZESTRIL, PRINIVIL) 10 mg tablet loratadine (CLARITIN) 10 mg tablet metoprolol tartrate, short acting, (LOPRESSOR) 25 mg tablet Take 12.5 mg by mouth. mupirocin (BACTROBAN) 2 % ointment Apply 1 application to affected area. triamcinolone acetonide (KENALOG) 0.5 % cream guaifenesin/pseudoephedrne HCl (GUAIFENESIN 600/PSE 120 ORAL) Take by mouth. omeprazole (PRILOSEC) 20 mg capsule Take 20 mg by mouth once daily. LABORATORY VALUES: WBC (k/uL) Date Value 12/20/2023 10.08 RBC (m/uL) Date Value 12/20/2023 5.12 Hemoglobin (g/dL) Date Value 12/20/2023 13.1 Hematocrit (%) Date Value 12/20/2023 40.9 MCV (fL) Date Value 12/20/2023 79.9 (L) MCH (pg) Date Value 12/20/2023 25.6 (L) MCHC (g/dL) Date Value 12/20/2023 32.0 RDW-CV (%) Date Value 12/20/2023 14.6 Platelet Count (k/uL) Date Value 12/20/2023 327 MPV (fL) Date Value 12/20/2023 8.8 (L) Glucose (mg/dL) Date Value 12/20/2023 114 (H) BUN (mg/dL) Date Value 12/20/2023 13 Creatinine (mg/dL) Date Value 12/20/2023 0.81 Sodium (mmol/L) Date Value 12/20/2023 142 Potassium (mmol/L) Date Value 12/20/2023 4.3 Chloride (mmol/L) Date Value 12/20/2023 106 (H) CO2 (mmol/L) Date Value 12/20/2023 23 Protein, Total (g/dL) Date Value 12/20/2023 7.9 Albumin (g/dL) Date Value 12/20/2023 3.7 (L) Calcium, Total (mg/dL) Date Value 12/20/2023 9.4 Alkaline Phosphatase (U/L) Date Value 12/20/2023 85 Bilirubin, Total (mg/dL) Date Value 12/20/2023 0.3 AST (U/L) Date Value 12/20/2023 18 ALT (U/L) Date Value 12/20/2023 30 Cholesterol, Total (mg/dL) Date Value 12/20/2023 173 Triglyceride (mg/dL) Date Value 12/20/2023 126 DIAGNOSIS: (D68.59) Primary hypercoagulable state (HCC) (primary encounter diagnosis) Plan: fondaparinux (ARIXTRA) 10 mg/0.8 mL syrg, COMPLETE BLOOD COUNT AND DIFFERENTIAL, COMPREHENSIVE METABOLIC PANEL, IRON AND TIBC, FERRITIN, VITAMIN B12, FOLATE, SERUM (D68.51) Factor V Leiden (HCC) Plan: fondaparinux (ARIXTRA) 10 mg/0.8 mL syrg, COMPLETE BLOOD COUNT AND DIFFERENTIAL, COMPREHENSIVE METABOLIC PANEL, IRON AND TIBC, FERRITIN, VITAMIN B12, FOLATE, SERUM (Z15.89) MTHFR mutation Plan: fondaparinux (ARIXTRA) 10 mg/0.8 mL syrg, folic acid-Vit B6-Vit B12 (FOLTX) 2.5-25-2 mg tab, COMPLETE BLOOD COUNT AND DIFFERENTIAL, COMPREHENSIVE METABOLIC PANEL, IRON AND TIBC, FERRITIN, VITAMIN B12, FOLATE, SERUM (D50.9) Iron deficiency anemia, unspecified iron deficiency anemia type Plan: COMPLETE BLOOD COUNT AND DIFFERENTIAL, COMPREHENSIVE METABOLIC PANEL, IRON AND TIBC, FERRITIN, VITAMIN B12, FOLATE, SERUM PAST MEDICAL HISTORY Diagnosis Date Anemia Anxiety Arthritis Autoimmune thyroiditis Bipolar affective disorder (HCC) Depression Factor V deficiency (HCC) GERD (gastroesophageal reflux disease) Shalom's disease History of DVT (deep vein thrombosis) Hypercholesterolemia Hypertension Hypothyroidism 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) YULY (obstructive sleep apnea) PTSD (post-traumatic stress disorder) Pulmonary embolism (HCC) Tachycardia Thyroid disease PAST SURGICAL HISTORY Procedure Laterality Date APPENDECTOMY HX CHOLECYSTECTOMY HX COLONOSCOPY PILONIDAL CYST/SINUS EXCISION THYROIDECTOMY TOTAL/COMPLETE TONSILLECTOMY HX Social History Tobacco Use Smoking status: Former Packs/day: 2 Types: Cigarettes Passive exposure: Past Smokeless tobacco: Never Substance Use Topics Alcohol use: No Drug use: No FAMILY HISTORY Problem Relation Age of Onset Diabetes Mother Hypertension Mother other (Factor V Leiden) Mother Clotting Disorder Mother Hyperlipidemia Father Hypertension Father other (Hemophilia) Father Heart disease Sister other (other) Brother Diabetes Maternal Grandfather Colon Cancer Paternal Grandfather I spent a total of 30 minutes on the date of the service which included preparing to see the patient, [id number] patient care, completing clinical documentation, obtaining and/or reviewing separately obtained history, performing a medically appropriate examination, counseling and educating the patient/family/caregiver, ordering medications, tests, or procedures, independently interpreting results (not separately reported), communicating results to the patient/family/caregiver, and care coordination (not separately reported). Sharif Joseph MD, CPE [facility] On[facility] Provided at: [place], [place] Scribe Attestation: This note was scribed by Harley Toro on December 20, 2023 under the direction and supervision of Dr. Sharif Joseph. I attest that all of the information documented is correct to the best of my knowledge. Provider Attestation: I, Sharif Joseph MD, attest that all information documented by the above scribe is correct, and was supervised by me and under my direction. CC: Harley Thacker [address] [facility] 1 [facility] [id number] documented in this encounter [facility] 12-07-2023 History of Present illness Narrative Images from the original note were not included. Subjective Patient ID: Margaret Prieto is a 33 y.o. female. REBECA Robles presents to the office today for wellness with PAP. She reports it has been a long time since last PAP and she is overdue. She reports she has had a history of abnormal PAP in the past, but repeat PAP was normal. She has EGD scheduled for Saturday 12/[address] Mejia. She has been cleared by cardiology and hematology. She followed with [facility] hematology and reports although she was recommended in July 2018 for lifelong anticoagulation, she stopped medication on her own. However, they feel it is acceptable for her to continue without anticoagulation medication at this time to allow her to have EGD. She will return to hematology after EGD and discuss resuming of anticoagulation. Margaret denies chest pain, shortness of breath, blood in urine or stool, fever, myalgias. She reports her hidradenitis suppurativa is exacerbated at this time and she has multiple boils all over that are painful. She reports she has appointment with dermatology next Sunday. She reports she finished menstrual cycle 3 days ago. The following portions of the patient's history were reviewed and updated as appropriate: allergies, current medications, past family history, past medical history, past social history, past surgical history, problem list, and medication reconciliation was completed including current medication and post discharge medication. Review of Systems Constitutional: Negative for chills, diaphoresis, fatigue, fever and unexpected weight change. HENT: Negative. Respiratory: Negative for choking, shortness of breath and wheezing. Cardiovascular: Negative for chest pain, palpitations and leg swelling. Gastrointestinal: Positive for diarrhea, nausea and vomiting. Negative for blood in stool and constipation. Genitourinary: Negative for dysuria and hematuria. Musculoskeletal: Positive for arthralgias and back pain. Following with pain management Skin: Multiple Boils Neurological: Positive for numbness and headaches. Negative for dizziness, syncope, weakness and light-headedness. Numbness down bilateral lower extremities D/t pinched nerves Psychiatric/Behavioral: Negative for self-injury and suicidal ideas. The patient is nervous/anxious. Objective Physical Exam Vitals and nursing note reviewed. Exam conducted with a infant caregiver present (susana BARRIOS). Constitutional: General: She is not in acute distress. Appearance: Normal appearance. She is well-developed. She is not ill-appearing. HENT: Head: Normocephalic and atraumatic. Right Ear: External ear normal. Left Ear: External ear normal. Nose: Nose normal. Mouth/Throat: Mouth: Mucous membranes are moist. Pharynx: Oropharynx is clear. Eyes: Extraocular Movements: Extraocular movements intact. Conjunctiva/sclera: Conjunctivae normal. Pupils: Pupils are equal, round, and reactive to light. Neck: Vascular: No carotid bruit. Cardiovascular: Rate and Rhythm: Normal rate and regular rhythm. Pulses: Dorsalis pedis pulses are 2+ on the right side and 2+ on the left side. Heart sounds: Normal heart sounds. No murmur heard. Pulmonary: Effort: Pulmonary effort is normal. No respiratory distress. Breath sounds: Normal breath sounds. No stridor. No wheezing, rhonchi or rales. Chest: Chest wall: No mass, lacerations, deformity, swelling, tenderness, crepitus or edema. There is no dullness to percussion. Breasts: Right: Normal. No swelling, bleeding, inverted nipple, mass, nipple discharge, skin change or tenderness. Left: Normal. No swelling, bleeding, inverted nipple, mass, nipple discharge, skin change or tenderness. Abdominal: General: Bowel sounds are normal. Palpations: Abdomen is soft. Genitourinary: Exam position: Lithotomy position. Comments: She has excoriation to vaginal area. Polyp was visualized in vaginal canal, on left side. She has boils from HS. Musculoskeletal: General: Normal range of motion. Cervical back: Normal range of motion and neck supple. No rigidity or tenderness. Right lower le+ Edema present. Left lower le+ Edema present. Feet: Right foot: Protective Sensation: 8 sites tested. 8 sites sensed. Left foot: Protective Sensation: 8 sites tested. 8 sites sensed. Lymphadenopathy: Cervical: No cervical adenopathy. Upper Body: Right upper body: No supraclavicular, axillary or pectoral adenopathy. Left upper body: No supraclavicular, axillary or pectoral adenopathy. Skin: General: Skin is warm and dry. Capillary Refill: Capillary refill takes less than 2 seconds. Findings: No rash. Neurological: Mental Status: She is alert and oriented to person, place, and time. Motor: No weakness. Gait: Gait normal. Psychiatric: Behavior: Behavior normal. Thought Content: Thought content normal. Diabetic foot exam: Left: Filament test present Right: Filament test present Assessment/Plan PAP completed today and polyp was visible in vaginal canal. Discussed with patient if she would like polyp removed she will need to follow with women's health. Discussed with patient if PAP returns abnormal, I will have to send referral to women's health. Manual breast exam completed today and is normal. Diabetic foot exam completed today and is normal. She has had multiple labs completed, but she is due for TSH and HgbA1c, ordered. She is due for eye exam, she will schedule. Dentist exam is due, she will schedule. She will keep specialist appointments, cardiology, hematology, dermatology, and pain management. She has EGD to be completed on Sunday. She has been cleared by cardiology and hematology. I will clear her as well. FU 3 months for DM and to follow up on GERD symptoms and see if she is ready to restart oral medications. Margaret was seen today for wellness. Diagnoses and all orders for this visit: Wellness examination - TSH with Reflex; Future - Hemoglobin A1c; Future - Pap Smear; Future - High risk HPV w/yoshi; Future Shalom's disease - TSH with Reflex; Future Controlled type 2 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 complication, without long-term current use of insulin ([facility]) - Hemoglobin A1c; Future - Diabetic foot exam performed Encounter for Papanicolaou smear for cervical cancer screening - Pap Smear; Future - High risk HPV w/yoshi; Future Hidradenitis suppurativa Harley Mirandas, [employer]LECT[employer]IAN [employer]CRAFT[employer]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 Bring a photo ID and your insurance card with you the day of surgery. You will check in at the main lobby of the [facility]- registration desk is straight ahead as soon as you walk in. Tell them you are here for surgery. 2. If you have a Living Will/Durable Power of Stage Electrician Helper for Health Care that is not on file here, please bring a copy the day of surgery. 3. Please shower/bathe the night before surgery with the provided soap or wipes. Do not shower the morning of surgery- you will do use wipes when you arrive here at the hospital before getting into your surgical gown. Do not shave the area of your procedure for 2 days prior to your surgery. 4. NO powder, lotion, perfume/cologne, aftershave, make-up, deodorant, or hair products after you have bathed. 5. NO nail equatorial guinean/acrylic on at least one finger. If you are having a hand, wrist or foot surgery then all nail equatorial guinean and artificial/acrylic nails must be removed from that hand or foot. 6. Avoid ALL Aspirin and non-steroidal anti-inflammatory drugs and certain vitamins (Ibuprofen, Advil, Aleve, Excedrin, Meloxicam, Celebrex, fish/krill oil, etc.) for 7 days prior to surgery as instructed by your surgeon and/or your prescribing doctor. Tylenol IS ALLOWED. If you are on Ticlid, Xarelto, Eliquis, Pradaxa, Plavix or Coumadin, please check with your prescribing doctor for instructions for when to stop them. 7. If you use an inhaler, continue to use it routinely. 8. Nothing to eat or drink (not even water, gum, mints, or hard candy!) AFTER midnight prior to your surgery. 9. Take only medications that you are instructed to on the morning of surgery with a TINY SIP OF WATER. 10. Choose a responsible adult that will be able to drive you home when you are discharged from your hospital stay for your surgery and can stay with you in your home for 24 hours after your procedure. You must NOT drive any vehicle or operate any machinery for 24 hours after surgery. 11. When you dress for your appointment, please wear loose fitting clothing that is appropriate to accommodate your surgical area procedure. BRING WITH YOU ANY DEVICES YOU MAY NEED: ROXANNE hose, ice machine, sling/swath, brace or special shoe, oversized zip-up or button up shirt, CPAP machine if staying overnight. 12. Do NOT wear jewelry, watches, or any piercings or metal for surgery- leave these valuables and money at home. 13. Do NOT wear contact lenses for surgery- glasses are okay if needed. 14. The anesthesiologist will talk with you the day of surgery and will ask you to sign a Consent Form. 15. Refrain from smoking or any type of tobacco use for at least 8 hours and marijuana for 24 hours prior to arrival for your surgery. 16. If a GREEN BLOOD band is given to you, please bring it with you for the day of surgery. 17. Notify your surgeon if you develop any illness before your surgery. 18. If you are staying overnight, please DO NOT BRING your home medications with you. 19. If you have any questions prior to surgery, please call the Preadmission Testing office at [phone], Mon.-Fri. 7 a.m.-3 p.m. Leave a voicemail if needed. Pre-Surgery Instructions: Medication Instructions esomeprazole (NexIUM) 20 mg packet Take last dose day before procedure melatonin 10 mg tablet Take last dose day before procedure documented in this encounter [facility] 12-05-2023 Nurse Note Preoperative Education Checklist- General Surgery date: 12/10/23 Surgery time: 1230 Arrival time: 1030 1. Bring a photo ID and your insurance card with you the day of surgery. You will check in at the main lobby of the [facility]- registration desk is straight ahead as soon as you walk in. Tell them you are here for surgery. 2. If you have a Living Will/Durable Power of Stage Electrician Helper for Health Care that is not on file here, please bring a copy the day of surgery. 3. Please shower/bathe the night before surgery with the provided soap or wipes. Do not shower the morning of surgery- you will do use wipes when you arrive here at the hospital before getting into your surgical gown. Do not shave the area of your procedure for 2 days prior to your surgery. 4. NO powder, lotion, perfume/cologne, aftershave, make-up, deodorant, or hair products after you have bathed. 5. NO nail equatorial guinean/acrylic on at least one finger. If you are having a hand, wrist or foot surgery then all nail equatorial guinean and artificial/acrylic nails must be removed from that hand or foot. 6. Avoid ALL Aspirin and non-steroidal anti-inflammatory drugs and certain vitamins (Ibuprofen, Advil, Aleve, Excedrin, Meloxicam, Celebrex, fish/krill oil, etc.) for 7 days prior to surgery as instructed by your surgeon and/or your prescribing doctor. Tylenol IS ALLOWED. If you are on Ticlid, Xarelto, Eliquis, Pradaxa, Plavix or Coumadin, please check with your prescribing doctor for instructions for when to stop them. 7. If you use an inhaler, continue to use it routinely. 8. Nothing to eat or drink (not even water, gum, mints, or hard candy!) AFTER midnight prior to your surgery. 9. Take only medications that you are instructed to on the morning of surgery with a TINY SIP OF WATER. 10. Choose a responsible adult that will be able to drive you home when you are discharged from your hospital stay for your surgery and can stay with you in your home for 24 hours after your procedure. You must NOT drive any vehicle or operate any machinery for 24 hours after surgery. 11. When you dress for your appointment, please wear loose fitting clothing that is appropriate to accommodate your surgical area procedure. BRING WITH YOU ANY DEVICES YOU MAY NEED: ROXANNE hose, ice machine, sling/swath, brace or special shoe, oversized zip-up or button up shirt, CPAP machine if staying overnight. 12. Do NOT wear jewelry, watches, or any piercings or metal for surgery- leave these valuables and money at home. 13. Do NOT wear contact lenses for surgery- glasses are okay if needed. 14. The anesthesiologist will talk with you the day of surgery and will ask you to sign a Consent Form. 15. Refrain from smoking or any type of tobacco use for at least 8 hours and marijuana for 24 hours prior to arrival for your surgery. 16. If a GREEN BLOOD band is given to you, please bring it with you for the day of surgery. 17. Notify your surgeon if you develop any illness before your surgery. 18. If you are staying overnight, please DO NOT BRING your home medications with you. 19. If you have any questions prior to surgery, please call the Preadmission Testing office at [phone], Mon.-Fri. 7 a.m.-3 p.m. Leave a voicemail if needed. Pre-Surgery Instructions: Medication Instructions esomeprazole (NexIUM) 20 mg packet Take last dose day before procedure melatonin 10 mg tablet Take last dose day before procedure [facility]23 Miscellaneous Notes I called Margaret but couldn't leave a voicemail - it's full. I called her emergency contact and left a message to contact her to call me to schedule her EGD. The medical clearance was received by cardiac / Dr. Mittal. Margaret returned by call & was scheduled on 12/10/23 for an EGD. documented [facility] 12-03-2023 Telephone encounter Note I called Margaret but couldn't leave a voicemail - it's full. I called her emergency contact and left a message to contact her to call me to schedule her EGD. The medical clearance was received by cardiac / Dr. Mittal. [facility] 12-03-2023 Telephone encounter Note Margaret returned by call & was scheduled on 12/10/23 for an EGD. [facility] 11-29-2023 Note HNO ID: [id number] Author: SHARIF JOSEPH MD Service: ? Author Type: Physician Type: Progress Notes Filed: 12/05/2023 09:50 Note Text: NAME: Margaret Prieto CLINIC NO.: [id number] DATE OF SERVICE: November 29, 2023 ([place]elle) Referring Provider: CHERRI Pelaez Consultation requested by CHERRI Pelaez for an opinion regarding Ms. Margaret Prieto, and my final recommendations will be communicated back to the requesting physician by way of shared medical record or letter via [place] mail. Additional Clinicians involved in Margaret Prieto's care: DIAGNOSIS: ASSESSMENT: Pulmonary embolus - semi-provoked - few weeks after cholecystectomy in a period. Very strong family history with Leiden factor V heterozygosity. Stopped her blood thinner in September 2017 Recommended lifelong in July 2018. Patient continued through summer and stopped secondary to multiple other issues including multiple medications and bleeding complications of hidradenitis and personal issues Considering severe obesity and hidradenitis which had been very limiting to her quality of life I had offered her referral to consider for gastric bypass surgery. Likely iron deficiency based on microcytosis. Her ferrous sulfate 325 mg by mouth every other day. She returns more than 3 years later to re-establish care. PLAN: Labs today RTC after endoscopy which I agree is appropriate at this time, especially while she is off of blood thinners Clear from my perspective to proceed with endoscopy with Dr. Mejia At return, repeat labs and will discuss resuming Foltx and resuming anticoagulation (will consider Arixtra 10mg daily) HPI: CASE HISTORY: Reverse Chronological Order 2023 - CTA Chest: Normal CTA chest. Resolution of the bilateral lower lobe pulmonary emboli described on the previous examination dated 11/23/2022. 11/23/2022 - CTA Chest: Almost complete resolution of right lower lobe and left lower lobe subsegmental pulmonary emboli since 11/11/2022. There is no new pulmonary embolus. Interval development of large area of airspace disease with air bronchograms in the right lower lobe may be pulmonary infarct. Due to development of small right hilar lymph nodes, an infectious etiology, such as pneumonia, cannot be excluded. Please correlate clinically 11/13/2022 - ECHO: LVEF: 60-65% 11/11/2022 - CTA Chest: Acute pulmonary emboli as described. No right heart strain. Small left pleural effusion. 11/11/2022-11/18/2022 - Admitted for pulmonary embolism 10/30/2021 - [facility] Venous Incomp[facility]ency [facility] RIGHT: NO EVIDENCE of deep or superficial vein thrombosis of the lower extremity. LEFT: ACUTE deep tibioperoneal vein thrombosis (DVT). NO EVIDENCE of superficial vein thrombosis of the lower extremity. 08/29/2021 - [facility] Ven[facility] Incomp[facility] BILATERAL: NO EVIDENCE of deep vein thrombosis (DVT) of the lower extremity. 2013 - Pulmonary embolism Updated Visit, November 29, 2023: Reestablish Care Margaret Prieto presents today to reestablish her care. She is a 33 year old female who has a prior history of heterozygous Factor V Leiden mutation and MTHFR mutation. She denies current clots. She has been having difficulty taking oral medications due to a burning sensation so she is not currently taking a blood thinner. She would like to start on an anticoagulation injection, instead of an oral medication. Her ankles are swollen bilaterally. Reports a having a headache for about a week - likely related to her blood pressure. She has not been using her CPAP due to claustrophobia. She also reports a worsening cough. From my perspective she is safe to proceed with scopes. After scopes, we will consider anticoagulation injections with Arixtra and Foltx. From Harley Thacker's Progress Note on 11/14/2023: Assessment/Plan: Previous results reviewed, including ECHO from 11/13/2022 and 11/23/2023 from [facility] which states -Echogenic density seen wihin the right atrium, likely represents a prominent Eustachian valve vs. Posterior right atrial wall vs. Mass. This has not been re-evaluated. ECHO ordered. Also, CTA chest ordered d/t this abnormal ECHO stating possible mass. Margaret also has hx of PE, and reports she has occasional chest heaviness and shortness of breath. She also has not been on anticoagulation and has not followed with hematology. Recent labs completed 11/09/2023 ordered by anesthesiology- CBC, INR/PT, APTT- WNL. Chest Xray ordered as well for surgical clearance. Pending Chest xray, ECHO, and cardiology input and hematology anticoagulation recommendations. Margaret cannot be cleared for procedure at this time. Patient encouraged to follow up with hematology for Factor 5 Leidien mutation, MTHFR mutation and follow up with cardiology for hx (more content not included)... [facility] 11-29-2023 Instructions Harley Toro - 11/29/2023 11:51 AM EDT Labs today RTC after endoscopy which I agree is appropriate at this time, especially while she is off of blood thinners Clear from my perspective to proceed with endoscopy with Dr. Mejia At return, repeat labs and will discuss resuming Foltx and resuming anticoagulation (will consider Arixtra 10mg daily) documented in this encounter [facility] 11-29-2023 History of Present illness Narrative Images from the original note were not included. NAME: Margaret Prieto [facility] NO.: [id number] DATE OF SERVICE: November 29, 2023 ([place]) Referring Provider: CHERRI Pelaez Consultation requested by CHERRI Pelaez for an opinion regarding Ms. Margaret Prieto, and my final recommendations will be communicated back to the requesting physician by way of shared medical record or letter via [place] mail. Additional Clinicians involved in Margaret Prieto's care: DIAGNOSIS: ASSESSMENT: Pulmonary embolus - semi-provoked - few weeks after cholecystectomy in a period. Very strong family history with Leiden factor V heterozygosity. Stopped her blood thinner in September 2017 Recommended lifelong in July 2018. Patient continued through summer and stopped secondary to multiple other issues including multiple medications and bleeding complications of hidradenitis and personal issues Considering severe obesity and hidradenitis which had been very limiting to her quality of life I had offered her referral to consider for gastric bypass surgery. Likely iron deficiency based on microcytosis. Her ferrous sulfate 325 mg by mouth every other day. She returns more than 3 years later to re-establish care. PLAN: Labs today RTC after endoscopy which I agree is appropriate at this time, especially while she is off of blood thinners Clear from my perspective to proceed with endoscopy with Dr. Mejia At return, repeat labs and will discuss resuming Foltx and resuming anticoagulation (will consider Arixtra 10mg daily) HPI: CASE HISTORY: Reverse Chronological Order 2023 - CTA Chest: Normal CTA chest. Resolution of the bilateral lower lobe pulmonary emboli described on the previous examination dated 11/23/2022. 11/23/2022 - CTA Chest: Almost complete resolution of right lower lobe and left lower lobe subsegmental pulmonary emboli since 11/11/2022. There is no new pulmonary embolus. Interval development of large area of airspace disease with air bronchograms in the right lower lobe may be pulmonary infarct. Due to development of small right hilar lymph nodes, an infectious etiology, such as pneumonia, cannot be excluded. Please correlate clinically 11/13/2022 - ECHO: LVEF: 60-65% 11/11/2022 - CTA Chest: Acute pulmonary emboli as described. No right heart strain. Small left pleural effusion. 11/11/2022-11/18/2022 - Admitted for pulmonary embolism 10/30/2021 - [facility] Venous Incompetency [facility] RIGHT: NO EVIDENCE of deep or superficial vein thrombosis of the lower extremity. LEFT: ACUTE deep tibioperoneal vein thrombosis (DVT). NO EVIDENCE of superficial vein thrombosis of the lower extremity. 08/29/2021 - [facility] Venous Incompetency [facility] BILATERAL: NO EVIDENCE of deep vein thrombosis (DVT) of the lower extremity. 2013 - Pulmonary embolism Updated Visit, November 29, 2023: Reestablish Care Margaret Prieto presents today to reestablish her care. She is a 33 year old female who has a prior history of heterozygous Factor V Leiden mutation and MTHFR mutation. She denies current clots. She has been having difficulty taking oral medications due to a burning sensation so she is not currently taking a blood thinner. She would like to start on an anticoagulation injection, instead of an oral medication. Her ankles are swollen bilaterally. Reports a having a headache for about a week - likely related to her blood pressure. She has not been using her CPAP due to claustrophobia. She also reports a worsening cough. From my perspective she is safe to proceed with scopes. After scopes, we will consider anticoagulation injections with Arixtra and Foltx. From Harley Thacker's Progress Note on 11/14/2023: Assessment/Plan: Previous results reviewed, including ECHO from 11/13/2022 and 11/23/2023 from [facility] which states -Echogenic density seen wihin the right atrium, likely represents a prominent Eustachian valve vs. Posterior right atrial wall vs. Mass. This has not been re-evaluated. ECHO ordered. Also, CTA chest ordered d/t this abnormal ECHO stating possible mass. Margaret also has hx of PE, and reports she has occasional chest heaviness and shortness of breath. She also has not been on anticoagulation and has not followed with hematology. Recent labs completed 11/09/2023 ordered by anesthesiology- CBC, INR/PT, APTT- WNL. Chest Xray ordered as well for surgical clearance. Pending Chest xray, ECHO, and cardiology input and hematology anticoagulation recommendations. Margaret cannot be cleared for procedure at this time. Patient encouraged to follow up with hematology for Factor 5 Leidien mutation, MTHFR mutation and follow up with cardiology for hx of PE, recurrent DVT, and possible abnormal ECHO. Updated Visit, October 28, 2020: Margaret is 29 yo and presents in transition of care as her previous oncologist had left. She complains of right leg pain. Hidradenitis supurtiva is controlled but still irritating. Not on anticoag for THFR also not on foltx Heterozygous FVL - Had heart problems last year - she is being followed by PCP and Cardiology. Trying to lose weight - Updated Visit, October 29, 2019: with Dr. Peoples Had 1 episode of pneumonia this year and her INR was out of the normal range at the time. She was on Xarelto. She quit sometime in the summer. She has a history of hidradenitis and currently trying to get this under better control he had a golf ball sized wounds in her groin also in legs under her armpit. Initial Visit, July 04, 2018: with Dr. Peoples She has heavy periods anyway. Prior History by Dr. Peoples: Past medical history includes hypothyroidism, history of partial thyroidectomy, Leiden factor V. Also HIDRADadenitis, hypertension, depression, anxiety. Outpatient medications include omeprazole. No history of clotting prior to her first . She had very high risk family history and was placed on lovenox for most of her , partly because of her own insistence. She had extensive testing at that time and confirmed Leiden V heterozygosity. uneventful, she was transitioned to heparin in 3rd trimester. In 2012 she had normal TSH, protein S, protein C, MT HFR, anticardiolipin antibodies, lupus anticoagulant, dilute Thierry viper venom, homocystine, Antithrombin III, Protein S, Protein S antigen. Prothrombin mutation was negative. Leiden factor V was heterozygous.She had some extra bleeding at 10/14/2013 but otherwise uneventful. Discharged and 2 or 3 mos later went back in with abd pain determined to be cholecystitis. Her cholecystectomy went ok but a few weeks later noted shortness of breath and chest pain, mostly in L side. She had a few ER visits before diagnosed with PE. She was placed on coumadin for about 2 years. In 2016 she was changed to xarelto per her request. She has previously seen Dr. Ashley toribio. She has been on Xarelto since April 2017. She stopped her xarelto in about Sep 2017 on her own without her physician recommendation. She did this after a conversation with a pharmacist made her nervous to continue this medication. She is going to consider starting Humira for Hiradenitis from [facility]. A CTA of the chest from February 2016 shows no findings to suggest pulmonary emboli. Possibility of pneumonia. Allergic to amoxicillin, estrogens, Bactrim, Her younger brother also had a massive pulmonary embolus. Mother had two miscarriages and multiple heart attaches. She has a half sister without clotting history. Father has no history of clotting, is hemophiliac. REVIEW OF SYSTEMS Per HPI and otherwise negative by full review of organ systems. ECOG PERFORMANCE STATUS: 0 PHYSICAL EXAMINATION: Vitals: BP 159/100 Pulse 98 Temp (Src) 97.6 (Temporal) Resp 16 Ht 5' 5 (1.65m) Wt 380 lb 15.3 oz (172.8kg) SpO2 98% BMI 63.39 kg/(m^2). Body surface area is 2.82 meters squared. Exam limited to gross visualization where appropriate. obese Gen.: This is an age-appropriate patient in no acute distress. Head: Appears atraumatic with no visible lesions. Eyes: Pupils equally round and reactive to light, extraocular muscles are intact. Neck: Supple. Respiratory: Appears to be respiring comfortably. Neurologic: Nonfocal to gross visualization. Alert and oriented 3. Psychiatric: No evidence of inappropriate anxiety or depression. Skin: Visible areas of skin without rash, lesions, wounds or petechiae. Extremities: Ankles swollen bilaterally. ALLERGIES: ALLERGIES Allergen Reactions Ciprofloxacin Hives Other Reaction(s): Unknown Sulfa (Sulfonamide * Hives Other Reaction(s): Unknown Tetanus And Diphthe* Unknown Bactrim [Sulfametho* Unknown Ceclor [Cefaclor] Unknown Estrogens Unknown Penicillins Rash Pertussis Vaccines Unknown Other Reaction(s): Unknown Trimethoprim Hives Amoxicillin Hives MEDICATIONS: busPIRone (BUSPAR) 15 mg tablet cyclobenzaprine HCl (CYCLOBENZAPRINE ORAL) Take by mouth. NURTEC ODT 75 mg disintegrating tablet gabapentin (NEURONTIN) 300 mg capsule Take 300 mg by mouth. apixaban (ELIQUIS) 5 mg tab(s) Take 5 mg by mouth. ARIPiprazole (ABILIFY) 5 mg tablet Take 5 mg by mouth. atomoxetine (STRATTERA) 60 mg capsule Take 60 mg by mouth. DULoxetine (CYMBALTA) 60 mg capsule Take 60 mg by mouth. Esomeprazole Magnesium 20 mg packet Take 40 mg by mouth. HYDROcodone-acetaminophen (NORCO) 5-325 mg per tablet Take 1 tablet by mouth. hydrOXYzine pamoate (VISTARIL) 50 mg capsule Take 50 mg by mouth. lamoTRIgine (LAMICTAL) 25 mg tablet Take 50 mg by mouth. liraglutide (VICTOZA) 0.6 mg/ 0.1 ml subcutaneous pen injector Inject 0.6 mg subcutaneously. prazosin (MINIPRESS) 2 mg cap Take 2 mg by mouth. tetracycline (SUMYCIN) 500 mg cap sucralfate (CARAFATE) 1 gram tablet Take 1 g by mouth. spironolactone (ALDACTONE) 25 mg tablet isosorbide mononitrate ER (IMDUR) 30 mg 24 hr tablet hydroCHLOROthiazide (HYDRODIURIL, ESIDRIX) 25 mg tablet Take 25 mg by mouth once daily. [id number] calcium-B6 (FOLTX) 2-1.13-25 mg tab Take 1 tablet by mouth once daily. acetaminophen (TYLENOL) 325 mg cap Take by mouth. ferrous sulfate 325 mg (65 mg iron) tablet Take 1 tablet by mouth twice daily. buPROPion XL (WELLBUTRIN XL) 150 mg 24 hr tablet Take 150 mg by mouth. cetirizine (ZYRTEC) 10 mg tablet Take 10 mg by mouth. Cholecalciferol, Vitamin D3, 10,000 unit cap doxycycline hyclate (VIBRAMYCIN) 100 mg capsule Take 100 mg by mouth. escitalopram oxalate (LEXAPRO) 5 mg tablet FLUoxetine HCl (PROZAC) 40 mg capsule levothyroxine (SYNTHROID) 50 mcg tablet Lidocaine HCl 3 % crea lisinopril (ZESTRIL, PRINIVIL) 10 mg tablet loratadine (CLARITIN) 10 mg tablet metoprolol tartrate, short acting, (LOPRESSOR) 25 mg tablet Take 12.5 mg by mouth. mupirocin (BACTROBAN) 2 % ointment Apply 1 application to affected area. triamcinolone acetonide (KENALOG) 0.5 % cream guaifenesin/pseudoephedrne HCl (GUAIFENESIN 600/PSE 120 ORAL) Take by mouth. omeprazole (PRILOSEC) 20 mg capsule Take 20 mg by mouth once daily. LABORATORY VALUES: WBC (k/uL) Date Value 11/29/2023 12.34 (H) RBC (m/uL) Date Value 11/29/2023 5.25 (H) Hemoglobin (g/dL) Date Value 11/29/2023 13.6 Hematocrit (%) Date Value 11/29/2023 41.9 MCV (fL) Date Value 11/29/2023 79.8 (L) MCH (pg) Date Value 11/29/2023 25.9 (L) MCHC (g/dL) Date Value 11/29/2023 32.5 RDW-CV (%) Date Value 11/29/2023 14.7 Platelet Count (k/uL) Date Value 11/29/2023 387 MPV (fL) Date Value 11/29/2023 8.9 (L) Glucose (mg/dL) Date Value 11/29/2023 117 (H) BUN (mg/dL) Date Value 11/29/2023 10 Creatinine (mg/dL) Date Value 11/29/2023 0.83 Sodium (mmol/L) Date Value 11/29/2023 140 Potassium (mmol/L) Date Value 11/29/2023 4.4 Chloride (mmol/L) Date Value 11/29/2023 105 CO2 (mmol/L) Date Value 11/29/2023 24 Protein, Total (g/dL) Date Value 11/29/2023 8.1 (H) Albumin (g/dL) Date Value 11/29/2023 3.8 (L) Calcium, Total (mg/dL) Date Value 11/29/2023 9.4 Alkaline Phosphatase (U/L) Date Value 11/29/2023 91 Bilirubin, Total (mg/dL) Date Value 11/29/2023 0.3 AST (U/L) Date Value 11/29/2023 17 ALT (U/L) Date Value 11/29/2023 22 DIAGNOSIS: (D68.51) Factor V Leiden (HCC) (primary encounter diagnosis) Plan: CBC + DIFF, COMP METABOLIC PANEL, IRON + TIBC, FERRITIN BLD, VITAMIN B12 BLOOD, FOLATE SERUM, CBC + DIFF, COMP METABOLIC PANEL, IRON + TIBC, FERRITIN BLD, VITAMIN B12 BLOOD, FOLATE SERUM, HOMOCYSTEINE (K92.2) Gastrointestinal hemorrhage, unspecified gastrointestinal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 anxiety from a 8 to a 3, with 10 as the highest form of anxiety Tools: CBT and ACT in order to reframe cognitive processes, accept emotional experiences, and find a balance between the two for functional improvement. Summary of Session: Client presents with appropriate affect. Therapist had client review since last appointment and identify feelings they have experienced. Therapist helped client process through these feelings and the events that caused them. Client reports ongoing chronic health problems which negatively affect her anxiety and depression. Support provided. Client has started reviewing therapeutic assignments and plans to continue to work on them. Therapist and client discussed healthy boundaries, coping strategies, and self-care to promote their emotional wellbeing. Therapist provided client with curiosity questioning, active listening, validation and empathy throughout session. Goals worked on this session: To decrease anxiety Interventions Used: Acceptance and Commitment Therapy (ACT) to provide client with a safe space to express and process emotions. help client process feelings and the events that caused them. Client Progress: improving as evidenced by Client working on therapeutic assignments between sessions. MSE: Client denied current thoughts, plans, or intent to harm self or others. Affective: Predominant Mood: Pleasant and Calm Range of Affect: Congruent Behavioral: Appearance: Neat Movement/Behavior: Unremarkable Speech: Understandable Attention/Manner: Attentive, Cooperative, and Open Cognitive: Thought Process: Coherent Orientation: Person, Place, Time, and Event Memory: Adequate Judgment/Insight: Denies problems Diagnosis/problem addressed at this session: ICD-10-CM 1. Generalized anxiety disorder F41.1 Medication Compliant: not taking medications as prescribed as she states all medications are upsetting her stomach. She is following up with specialist to address stomach concerns. Plan: Client will be seen for a follow up session on 12/11/23. Electronic Signature: ELLIOT Baxter documented in this encounter [facility] 11-27-2023 Progress note Formatting of t his note is different from the original. Outpatient Behavioral Health Progress Note Start Time: 835am Stop Time: 934am Minutes: 59 Type of session: individual Client Location: Home Video Visit Consent Statement: I discussed risks, benefits, and alternatives of a real-time synchronous audiovisual consultation with the patient (and any accompanying persons) including the risks that the patient's personal health details and medical records will be discussed over real-time, synchronous, interactive video/audio/telecommunication technology, the visit will not be recorded without the express consent of both the provider and the patient, and that there are some limitations compared to [id number] evaluations. Problem Statement #1: Anxiety Goal: To decrease anxiety Objective: through coping, behavioral activation, and reframing their thoughts Measure: as evidenced by decreasing their anxiety from a 8 to a 3, with 10 as the highest form of anxiety Tools: CBT and ACT in order to reframe cognitive processes, accept emotional experiences, and find a balance between the two for functional improvement. Summary of Session: Client presents with appropriate affect. Therapist had client review since last appointment and identify feelings they have experienced. Therapist helped client process through these feelings and the events that caused them. Client reports ongoing chronic health problems which negatively affect her anxiety and depression. Support provided. Client has started reviewing therapeutic assignments and plans to continue to work on them. Therapist and client discussed healthy boundaries, coping strategies, and self-care to promote their emotional wellbeing. Therapist provided client with curiosity questioning, active listening, validation and empathy throughout session. Goals worked on this session: To decrease anxiety Interventions Used: Acceptance and Commitment Therapy (ACT) to provide client with a safe space to express and process emotions. help client process feelings and the events that caused them. Client Progress: improving as evidenced by Client working on therapeutic assignments between sessions. MSE: Client denied current thoughts, plans, or intent to harm self or others. Affective: Predominant Mood: Pleasant and Calm Range of Affect: Congruent Behavioral: Appearance: Neat Movement/Behavior: Unremarkable Speech: Understandable Attention/Manner: Attentive, Cooperative, and Open Cognitive: Thought Process: Coherent Orientation: Person, Place, Time, and Event Memory: Adequate Judgment/Insight: Denies problems Diagnosis/problem addressed at this session: ICD-10-CM 1. Generalized anxiety disorder F41.1 Medication Compliant: not taking medications as prescribed as she states all medications are upsetting her stomach. She is following up with specialist to address stomach concerns. Plan: Client will be seen for a follow up session on 12/11/23. Electronic Signature: ELLIOT Baxter [facility] 11-14-2023 History of Present illness Narrative Subjective Patient ID: Margaret Prieto is a 32 y.o. female. HPI Patient is scheduled to have EGD done on 11/19/[address] Mejia and is presenting to the office today for surgical clearance. 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 She followed with hematology in the past, but states that they attempted to stop her eliquis in the past, and DVT would reoccur. Referral was placed to hematology at last visit, however she has not followed with hematology, but she has not been taking the eliquis d/t GI distress. New referral sent today at patient request for Hematology at [facility] locally. She also has history of tachycardia, hypertension, YULY, prediabetes, autoimmune thyroiditis, anemia, and pneumonia in which she was to follow with pulmonology. She has not had follow up. Encouraged to do so. Recent labs completed 11/09/2023 ordered by anesthesiology- CBC, INR/PT, APTT- WNL Echo 11/13/2022- EF 60-65%, There is mild concentric increased wall thickness/hypertrophy. Otherwise normal. Upon review of echocardiogram done in November [address] Sinclair noticed that she had a reverberation artifact in her left atrium, no obvious masses noted. However, patient reported having an echo done prior to visit 01/2023 at [facility] was told that she has a mass in her left atrium. Dr. Nascimento recommended possible repeat ECHO. She is due for cardiology FU in 01/2024. ECHO 11/23/2023- EF 60-65%- Echogenic density seen wihin the right atrium, likely represents a prominent Eustachian valve vs. Posterior right atrial wall vs. Mass. EKG 11/09/2023- NSR- with borderline T abnormality in anterior leads. Follow-up ECHO ordered to update patient current cardiovascular status. Follow-up with Cardiology on 11/28/23. PFT 11/2022- Normal spirometry without any significant obstructive or restrictive impairment. Lung volumes are normal. Isolated mild reduction in gas transfer may be related to underlying anemia, pulmonary vascular disease, pulmonary hypertension, interstitial lung disease. Patient reports occasional black, tarry stools and vomiting blood due to possible gastrointestinal ulcer. However, she admits this is not actively occurring. She reports this has occurred in the past. She reports recent stool study was negative for blood. Discussed liquid PPI with patient as she states she is unable to tolerate any pills at this time, patient agreeable to take. Margaret reports a productive cough upon waking every morning accompanied with chest discomfort. She reports she has not taken her medications for the past 6 months due to dysphagia and inability to tolerate medications d/t GI upset. She reports some shortness of breath as well, and wonders if she could have another PE, as she has not been on blood thinner in about 5-6 months. Patient follows with Yashira Mi CNP from Psychiatry, next appointment on 11/27/23. Patient also has counseling every 2 weeks. For mental health, as she understands she has been going through a lot of increased stress. The following portions of the patient's history were reviewed and updated as appropriate: allergies, current medications, past family history, past medical history, past social history, past surgical history, problem list, and medication reconciliation was completed including current medication and post discharge medication. Review of Systems Constitutional: Positive for fatigue and unexpected weight change. Negative for chills, diaphoresis and fever. Gaining weight HENT: Positive for sore throat, trouble swallowing and voice change. Eyes: Negative. Respiratory: Positive for chest tightness and shortness of breath. pain to right and left lower lung Cardiovascular: Positive for chest pain. Chest lauren, heaviness Gastrointestinal: Positive for abdominal pain, blood in stool, constipation and diarrhea. Epigastric burning, and pain to right and left lower lungs. Not currently having black tarry stools. Not currently vomiting blood, but states she has. She reports eating anything, even taking liquids, she has trouble swallowing. She reports she cannot tolerate pills at this time and therefore has not been taking any medications. She reports she has had blood in her stools, but reports it may be due to hemorrhoids or boil to rectum. Endocrine: Negative. Genitourinary: Negative. Musculoskeletal: Negative. Skin: Boils from HS Allergic/Immunologic: Negative. Neurological: Negative. Hematological: Negative. Psychiatric/Behavioral: Positive for sleep disturbance. Negative for self-injury and suicidal ideas. Objective Physical Exam Vitals and nursing note reviewed. Exam conducted with a infant caregiver present. Constitutional: Appearance: Normal appearance. HENT: Head: Normocephalic and atraumatic. Right Ear: Tympanic membrane, ear canal and external ear normal. Left Ear: Tympanic membrane, ear canal and external ear normal. Nose: Nose normal. Mouth/Throat: Mouth: Mucous membranes are moist. Pharynx: Oropharynx is clear. Eyes: Extraocular Movements: Extraocular movements intact. Conjunctiva/sclera: Conjunctivae normal. Pupils: Pupils are equal, round, and reactive to light. Cardiovascular: Rate and Rhythm: Normal rate and regular rhythm. Pulses: Normal pulses. Heart sounds: Normal heart sounds. Pulmonary: Effort: Pulmonary effort is normal. Breath sounds: Normal breath sounds. Abdominal: General: Abdomen is flat. Palpations: Abdomen is soft. Musculoskeletal: General: Normal range of motion. Cervical back: Normal range of motion and neck supple. Skin: General: Skin is warm and dry. Capillary Refill: Capillary refill takes less than 2 seconds. Neurological: General: No focal deficit present. Mental Status: She is alert and oriented to person, place, and time. Psychiatric: Mood and Affect: Mood normal. Behavior: Behavior normal. Thought Content: Thought content normal. Judgment: Judgment normal. Assessment/Plan Previous results reviewed, including ECHO from 11/13/2022 and 11/23/2023 from [facility] which states -Echogenic density seen wihin the right atrium, likely represents a prominent Eustachian valve vs. Posterior right atrial wall vs. Mass. This has not been re-evaluated. ECHO ordered. Also, CTA chest ordered d/t this abnormal ECHO stating possible mass. Margaret also has hx of PE, and reports she has occasional chest heaviness and shortness of breath. She also has not been on anticoagulation and has not followed with hematology. Recent labs completed 11/09/2023 ordered by anesthesiology- CBC, INR/PT, APTT- WNL. Chest Xray ordered as well for surgical clearance. Pending Chest xray, ECHO, and cardiology input and hematology anticoagulation recommendations. Margaret cannot be cleared for procedure at this time. Patient encouraged to follow up with hematology for Factor 5 Leidien mutation, MTHFR mutation and follow up with cardiology for hx of PE, recurrent DVT, and possible abnormal ECHO. 1.) Hematology consult placed at [facility] per pt request. 2.) Encouraged to follow up with sleep medicine for YULY. 3.) keep cardiology FU 4.)Follow-up ECHO order placed. 5.) CT Angiogram Chest order placed. 6.) X-Ray Chest ordered. 7.) liquid PPI sent since she is unable to tolerate pills for GERD symptoms in the meantime. 8.) she will need new pre-operative exam after she follows with specialists. 9.) Keep specialist appointments. Margaret was seen today for pre-op exam. Diagnoses and all orders for this visit: Preoperative clearance - X-ray chest 2 views; Future - Echo complete W/O contrast; Future Abnormal echocardiogram - Echo complete W/O contrast; Future - CT angiogram chest; Future History of DVT (deep vein thrombosis) - Ambulatory referral to Hematology (Non-[facility]); Future - CT angiogram chest; Future History of pulmonary embolism - Echo complete W/O contrast; Future - Ambulatory referral to Hematology (Non-[facility]); Future - CT angiogram chest; Future Factor 5 Leiden mutation, heterozygous (CMS-HCC) - Ambulatory referral to Hematology (Non-[facility]); Future - CT angiogram chest; Future 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 CHERRI Pelaez 11/14/23 [id number] CHERRI Pelaez 11/14/23 [id number] documented in this encounter [facility] YouTube [facility] 11-14-2023 Miscellaneous Notes Outpatient Behavioral Health Progress Note Start Time: 934am Stop Time: 1030am Minutes: 56 Type of session: individual Client Location: Home Video Visit Consent Statement: I discussed risks, benefits, and alternatives of a real-time synchronous audiovisual consultation with the patient (and any accompanying persons) including the risks that the patient's personal health details and medical records will be discussed over real-time, synchronous, interactive video/audio/telecommunication technology, the visit will not be recorded without the express consent of both the provider and the patient, and that there are some limitations compared to [id number] evaluations. Problem Statement #1: Anxiety Goal: To decrease anxiety Objective: through coping, behavioral activation, and reframing their thoughts Measure: as evidenced by decreasing their anxiety from a 8 to a 3, with 10 as the highest form of anxiety Tools: CBT and ACT in order to reframe cognitive processes, accept emotional experiences, and find a balance between the two for functional improvement. Summary of Session: Therapist used principles of motivational interviewing to assist client in identifying their personal strengths and coping skills while empowering client to make positive changes in their life. Client participated in the development of initial treatment plan. Therapist and client discussed history of mood presentation, triggers to worsening mood symptoms. Client reports current anxiety is a 7/8 out of 10 with 10 being the highest. Client reports she worries about her children, her health and relationship. Client interested in therapeutic assignments to work on between sessions. Homework provided including psycho education on ACT (Acceptance and Commitment Therapy). Therapist provided therapeutic assignments via [employer] for Client to review. Goals worked on this session: To decrease anxiety Interventions Used: Acceptance and Commitment Therapy (ACT) and Motivational Interviewing to provide client with psycho education. provide active listening, mirroring and validation. Client Progress: improving as evidenced by Client open to psychoeducation and therapeutic assignments between sessions. MSE: Client denied current thoughts, plans, or intent to harm self or others. Affective: Predominant Mood: Pleasant and Calm Range of Affect: Congruent Behavioral: Appearance: Neat Movement/Behavior: Unremarkable Speech: Understandable Attention/Manner: Attentive, Cooperative, and Open Cognitive: Thought Process: Coherent Orientation: Person, Place, Time, and Event Memory: Adequate Judgment/Insight: Denies problems Diagnosis/problem addressed at this session: ICD-10-CM 1. Post traumatic stress disorder (PTSD) F43.10 2. Generalized anxiety disorder F41.1 Medication Compliant: not taking medications as prescribed as she states all medications are upsetting her stomach. She is following up with specialist to address stomach concerns. Plan: Client will be seen for a follow up session on 11/27/23. Electronic Signature: ELLIOT Baxter documented in this encounter [facility] 11-14-2023 Progress note Formatting of t his note is different from the original. Outpatient Behavioral Health Progress Note Start Time: 934am Stop Time: 1030am Minutes: 56 Type of session: individual Client Location: Home Video Visit Consent Statement: I discussed risks, benefits, and alternatives of a real-time synchronous audiovisual consultation with the patient (and any accompanying persons) including the risks that the patient's personal health details and medical records will be discussed over real-time, synchronous, interactive video/audio/telecommunication technology, the visit will not be recorded without the express consent of both the provider and the patient, and that there are some limitations compared to [id number] evaluations. Problem Statement #1: Anxiety Goal: To decrease anxiety Objective: through coping, behavioral activation, and reframing their thoughts Measure: as evidenced by decreasing their anxiety from a 8 to a 3, with 10 as the highest form of anxiety Tools: CBT and ACT in order to reframe cognitive processes, accept emotional experiences, and find a balance between the two for functional improvement. Summary of Session: Therapist used principles of motivational interviewing to assist client in identifying their personal strengths and coping skills while empowering client to make positive changes in their life. Client participated in the development of initial treatment plan. Therapist and client discussed history of mood presentation, triggers to worsening mood symptoms. Client reports current anxiety is a 7/8 out of 10 with 10 being the highest. Client reports she worries about her children, her health and relationship. Client interested in therapeutic assignments to work on between sessions. Homework provided including psycho education on ACT (Acceptance and Commitment Therapy). Therapist provided therapeutic assignments via [employer] for Client to review. Goals worked on this session: To decrease anxiety Interventions Used: Acceptance and Commitment Therapy (ACT) and Motivational Interviewing to provide client with psycho education. provide active listening, mirroring and validation. Client Progress: improving as evidenced by Client open to psychoeducation and therapeutic assignments between sessions. MSE: Client denied current thoughts, plans, or intent to harm self or others. Affective: Predominant Mood: Pleasant and Calm Range of Affect: Congruent Behavioral: Appearance: Neat Movement/Behavior: Unremarkable Speech: Understandable Attention/Manner: Attentive, Cooperative, and Open Cognitive: Thought Process: Coherent Orientation: Person, Place, Time, and Event Memory: Adequate Judgment/Insight: Denies problems Diagnosis/problem addressed at this session: ICD-10-CM 1. Post traumatic stress disorder (PTSD) F43.10 2. Generalized anxiety disorder F41.1 Medication Compliant: not taking medications as prescribed as she states all medications are upsetting her stomach. She is following up with specialist to address stomach concerns. Plan: Client will be seen for a follow up session on 11/27/23. Electronic Signature: ELLIOT Baxter [facility] YouTube [facility] 11-12-2023 Miscellaneous Notes ----- Message from CHERRI Sandoval sent at 11/12/2023 12:41 PM EDT ----- Regarding: Results Please let patient know all stool tests were negative. There is no infection or inflammation in her intestines. Have her incorporate more fiber into her diet and take a fiber supplement OTC. Thank you, Corine ----- Message ----- From: Interface - Lab Results/Orders In Sent: 11/08/2023 12:29 AM EDT To: CHERRI Sandoval Spoke with patient regarding stool culture results. Patient verbally understood with no further questions. documented in this encounter [facility] 11-12-2023 Telephone encounter Note ----- Message from CHERRI Sandoval sent at 11/12/2023 12:41 PM EDT ----- Regarding: Results Please let patient know all stool tests were negative. There is no infection or inflammation in her intestines. Have her incorporate more fiber into her diet and take a fiber supplement OTC. Thank you, Corine ----- Message ----- From: Interface - Lab Results/Orders In Sent: 11/08/2023 12:29 AM EDT To: CHERRI Sandoval [facility] 11-12-2023 Telephone encounter Note Spoke with patient regarding stool culture results. Patient verbally understood with no further questions. [facility] 11-09-2023 Nurse Note Pt states during PAT appointment that she has been off of her blood thinner for a couple months due to the nausea/vomiting issues she's been having. She states that Dr. Rivera is unaware of her being off meds. Anesthesia requesting hematology clearance for EGD due to lapse in anticoagulants. [facility] 11-09-2023 Miscellaneous Notes Pt states during PAT appointment that she has been off of her blood thinner for a couple months due to the nausea/vomiting issues she's been having. She states that Dr. Rivera is unaware of her being off meds. Anesthesia requesting hematology clearance for EGD due to lapse in anticoagulants. Dr. Denise in to assess patient during PAT appointment. documented in this encounter [facility] 11-09-[address] Denise in to assess patient during PAT appointment. [facility] 11-09-2023 Instructions Laine Carroll RN - 11/09/2023 9:45 AM EST Preoperative Education Checklist- General Surgery date: 11/19/23 Surgery time: 1215p Arrival time: 1015a 1. Bring a photo ID and your insurance card with you the day of surgery. You will check in at the main lobby of the [facility]- registration desk is straight ahead as soon as you walk in. Tell them you are here for surgery. 2. If you have a Living Will/Durable Power of Stage Electrician Helper for Health Care that is not on file here, please bring a copy the day of surgery. 3. Please shower/bathe the night before surgery with the provided soap or wipes. Do not shower the morning of surgery- you will do use wipes when you arrive here at the hospital before getting into your surgical gown. Do not shave the area of your procedure for 2 days prior to your surgery. 4. NO powder, lotion, perfume/cologne, aftershave, make-up, deodorant, or hair products after you have bathed. 5. NO nail equatorial guinean/acrylic on at least one finger. If you are having a hand, wrist or foot surgery then all nail equatorial guinean and artificial/acrylic nails must be removed from that hand or foot. 6. Avoid ALL Aspirin and non-steroidal anti-inflammatory drugs and certain vitamins (Ibuprofen, Advil, Aleve, Excedrin, Meloxicam, Celebrex, fish/krill oil, etc.) for 7 days prior to surgery as instructed by your surgeon and/or your prescribing doctor. Tylenol IS ALLOWED. If you are on Ticlid, Xarelto, Eliquis, Pradaxa, Plavix or Coumadin, please check with your prescribing doctor for instructions for when to stop them. 7. If you use an inhaler, continue to use it routinely. 8. Nothing to eat or drink (not even water, gum, mints, or hard candy!) AFTER midnight prior to your surgery. 9. Take only medications that you are instructed to on the morning of surgery with a TINY SIP OF WATER. 10. Choose a responsible adult that will be able to drive you home when you are discharged from your hospital stay for your surgery and can stay with you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 Paternal Grandfather The following portions of the patient's history were reviewed and updated as appropriate: allergies, current medications, past family history, past medical history, past social history, past surgical history, and problem list. Review of Systems Constitutional: Negative for chills, diaphoresis, fatigue, fever and unexpected weight change. HENT: Negative. Respiratory: Negative for choking, shortness of breath and wheezing. Cardiovascular: Negative for chest pain, palpitations and leg swelling. Gastrointestinal: Positive for diarrhea, nausea and vomiting. Negative for blood in stool and constipation. Genitourinary: Negative for dysuria and hematuria. Musculoskeletal: Positive for arthralgias and back pain. Skin: Boils Neurological: Positive for headaches. Negative for dizziness, syncope, weakness and light-headedness. Psychiatric/Behavioral: Negative for self-injury and suicidal ideas. The patient is nervous/anxious. Objective Physical Exam Vitals and nursing note reviewed. Constitutional: General: She is not in acute distress. Appearance: Normal appearance. She is well-developed. She is not ill-appearing. HENT: Head: Normocephalic and atraumatic. Right Ear: External ear normal. Left Ear: External ear normal. Nose: Nose normal. Mouth/Throat: Mouth: Mucous membranes are moist. Pharynx: Oropharynx is clear. Eyes: Extraocular Movements: Extraocular movements intact. Conjunctiva/sclera: Conjunctivae normal. Pupils: Pupils are equal, round, and reactive to light. Neck: Vascular: No carotid bruit. Cardiovascular: Rate and Rhythm: Normal rate and regular rhythm. Heart sounds: Normal heart sounds. No murmur heard. Pulmonary: Effort: Pulmonary effort is normal. Breath sounds: Normal breath sounds. Abdominal: General: Bowel sounds are normal. Palpations: Abdomen is soft. Musculoskeletal: General: Normal range of motion. Cervical back: Normal range of motion and neck supple. No rigidity or tenderness. Right lower le+ Edema present. Left lower le+ Edema present. Lymphadenopathy: Cervical: No cervical adenopathy. Skin: General: Skin is warm and dry. Capillary Refill: Capillary refill takes less than 2 seconds. Findings: No rash. Neurological: Mental Status: She is alert and oriented to person, place, and time. Motor: No weakness. Gait: Gait normal. Psychiatric: Behavior: Behavior normal. Thought Content: Thought content normal. Assessment/Plan Sign release of records- Collins Stein, for EGD. I think she would benefit to have referral to have repeat EGD. Referral to psychiatry for management of bipolar. Referral to dermatology for hydradenitis suppurativa. Referral to hematology for management of anticoagulant for history of Factor 5 Leiden mutation, PE, and DVT. Refill on eliquis today. Last labs completed about a year ago. She would like Victoza, she has not been checking BS, check random glucose today. Restart medications. She is due for wellness. Closely monitor GERD, migraines, glucose, hypertension, anticoagulant. Please keep FU with specialists. If we cannot keep migraines under control, we will refer her back to neurology. Margaret was seen today for establish care. 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 ([facility]) - [facility] [place] [place]; Future Bipolar 1 disorder ([facility]) - Ambulatory referral to Psychiatry; Future Insulin resistance - Cancel: Glucose random or fasting; Future - POCT Glucose Fingerstick History of prediabetes - Cancel: Glucose random or fasting; Future History of insulin resistance - Cancel: Glucose random or fasting; Future - liraglutide (VICTOZA 2-ALFIE) 0.6 mg/0.1 mL (18 mg/3 mL) pen injector; Inject 0.1 mL (0.6 mg total) under the skin in the morning. Gastroesophageal reflux disease, unspecified whether esophagitis present - [facility] [place], [place]; Future Nausea and vomiting, unspecified vomiting type - [place], [place]; Future Hidradenitis suppurativa - Ambulatory referral to Dermatology; Future Migraine without aura and without status migrainosus, not intractable - [facility] ODT 75 mg tablet,disintegrating; Dissolve 75 mg on tongue every other day for 30 days. Prediabetes - Cancel: Glucose random or fasting; Future - POCT Glucose Fingerstick - liraglutide (VICTOZA 2-ALFIE) 0.6 mg/0.1 mL (18 mg/3 mL) pen injector; Inject 0.1 mL (0.6 mg total) under the skin in the morning. Other orders - apixaban (ELIQUIS) 5 mg tablet; Take 1 tablet (5 mg total) by mouth in the morning and 1 tablet (5 mg total) before bedtime. - spironolactone (ALDACTONE) 25 mg tablet; Take 1 tablet (25 mg total) by mouth in the morning. - hydroCHLOROthiazide (HYDRODIURIL) 25 mg tablet; Take 1 tablet (25 mg total) by mouth daily. CHERRI Pelaez 10/13/232021 documented in this encounter [facility] 11-02-2022 Note CONSULTATION CONSULTATION DATE: 11/02/2022 HISTORY: [...] with that as well. Other medications include Hillview 5/325 b.i.d., sumatriptan, gabapentin 300 mg b.i.d. [...] pain relief. We will continue with her Hillview 5/325 b.i.d. Education was given regarding stretches and exercises, and she is to continue working with her PCP on a rheumatology workup. We will see her in three months' time to maintain her pain medications. Patient agrees with this plan. [facility] 09-28-2022 Note CONSULTATION CONSULTATION DATE: 09/28/2022 HISTORY [...] medications include baclofen 10 mg q.h.s., gabapentin, Hillview 5/325 b.i.d., duloxetine, Remicade and Xarelto. The [...] and all question were answered today. [facility] 06-05-2022 Note PROCEDURE: XR HIP RT 2 3V W PELVIS COMPARISON: None. HISTORY: Pain in right hip joint FINDINGS: BONES:No fracture, acute abnormality, or significant arthropathy. SOFT TISSUES:Negative. No visible soft tissue swelling. EFFUSION:None visible. OTHER: Negative. IMPRESSION: No acute abnormality Electronically authenticated by: KATYA BECK Date: 2022-06-05 16:27 [facility] 06-01-2022 Note CONSULTATION CONSULTATION DATE: 06/01/2022 HISTORY [...] appointment being tomorrow. She is on Rexulti, Hillview 5/325 b.i.d., gabapentin 300 mg b.i.d., Cymbalta, [...] procedure. She agrees to move forward. [facility] 03-01-2022 Note CONSULTATION CONSULTATION DATE: 03/02/2022 This is a 31-year-old female returning to the clinic for a 3-month follow-up for her chronic pain syndrome and chronic lower back pain and bilateral hips. The patient does have hidradenitis suppurativia and is currently under the care of Dr. Carlson in the [facility] in [place]. She has been having increasing amounts of boils which are causing a lot of pain. He has recently removed four wounds and has one that is deeply patched. It was found that she had a massive infection and is currently on Levaquin and Flagyl. Dr. Carlson has placed her on Hillview 5/325 b.i.d. which is the same medication dose and frequency as our prescription. The patient has put our prescription on hold and is using the wound clinic only at this time. She is currently working with a computer designer in [place] and considering Remicade infusions. The patient does [...] which is beneficial. In addition to the Hillview, she takes gabapentin 300 mg b.i.d., Baclofen [...] I encouraged her to discuss with Dr. Carlson at [place] regarding continuing the Hillview for her. We will see her in three months' time unless otherwise indicated, or if she prefers to stick with Dr. Carlson at this time, that is fine as well. The patient agrees with the plan of care. [facility] Signed and Approved by: ACE CERVANTES . 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 ([facility]) Bipolar 1 disorder ([facility]) Insulin resistance Other abnormal glucose History of prediabetes History of insulin resistance Gastroesophageal reflux disease, unspecified whether esophagitis present Nausea and vomiting, unspecified vomiting type Hidradenitis suppurativa Hidradenitis Migraine without aura and without status migrainosus, not intractable Prediabetes Other abnormal glucose documented in this encounter [facility]* Diagnosis Generalized anxiety disorder- Primary Bipolar depression ([facility]) Bipolar I disorder, most recent episode (or current) depressed, unspecified Post traumatic stress disorder (PTSD) Attention deficit hyperactivity disorder, combined type Attention deficit disorder with hyperactivity [facility] Diagnosis Post traumatic stress disorder (PTSD)- Primary [facility] this [facility] Diagnosis Gastroesophageal reflux disease, unspecified whether esophagitis present- Primary Nausea and vomiting, unspecified vomiting type Diarrhea, unspecified type Morbid obesity ([facility]) Morbid obesity Preop examination- Primary Unspecified pre-operative examination MTHFR (methylene THF reductase) deficiency and homocystinuria ([facility]) Disturbances of sulphur-bearing amino-acid metabolism BMI 60.0-69.9, adult ([facility]) Hypertension, unspecified type Blood clotting disorder ([facility]) Other and unspecified coagulation defects documented in this encounter [facility]* Diagnosis Preop examination- Primary Unspecified pre-operative examination MTHFR (methylene THF reductase) deficiency and homocystinuria ([facility]) Disturbances of sulphur-bearing amino-acid metabolism BMI 60.0-69.9, adult ([facility]) Hypertension, unspecified type Blood clotting disorder ([facility]) Other and unspecified coagulation defects Preop examination Unspecified pre-operative examination MTHFR (methylene THF reductase) deficiency and homocystinuria ([facility]) Disturbances of sulphur-bearing amino-acid metabolism BMI 60.0-69.9, adult ([facility]) Hypertension, unspecified type documented in this encounter [facility]* Diagnosis Preoperative clearance- Primary Unspecified pre-operative examination Abnormal echocardiogram Nonspecific (abnormal) findings on radiological and other examination of other intrathoracic organs History of DVT (deep vein thrombosis) History of pulmonary embolism Personal history of venous thrombosis and embolism Factor 5 Leiden mutation, heterozygous ([facility]) 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 ([facility]) Chest discomfort Other chest pain Shortness of breath Atrial mass Swelling, mass, or lump in chest Gastroesophageal reflux disease, unspecified whether esophagitis present documented in this encounter [facility] Diagnosis Post traumatic stress disorder (PTSD)- Primary Generalized anxiety disorder documented in this encounter [facility]* Diagnosis Bipolar depression ([facility])- Primary Bipolar I disorder, most recent episode (or current) depressed, unspecified Post traumatic stress disorder (PTSD) Generalized anxiety disorder Attention deficit hyperactivity disorder, combined type Attention deficit disorder with hyperactivity documented in this encounter [facility] System[facility]* Diagnosis Generalized anxiety disorder- Primary documented in this encounter [facility] System[facility] note* Diagnosis Essential hypertension- Primary Unspecified essential hypertension documented in this encounter [facility] System[facility]* Diagnosis Factor V Leiden (HCC)- Primary Primary hypercoagulable state Gastrointestinal hemorrhage, unspecified gastrointestinal hemorrhage type Iron deficiency anemia, unspecified iron deficiency anemia type MTHFR mutation Disturbances of sulphur-bearing amino-acid metabolism Primary hypercoagulable state (HCC) Primary hypercoagulable state History of pulmonary embolism Personal history of pulmonary embolism documented [facility] this encounter [facility] Diagnosis Wellness examination- Primary Shalom's disease Chronic lymphocytic thyroiditis Controlled type 2 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 complication, without long-term current use of insulin ([facility]) Encounter for Papanicolaou smear for cervical cancer screening Hidradenitis suppurativa Hidradenitis documented in this encounter [facility]* Diagnosis Primary hypercoagulable state (HCC)- Primary Primary hypercoagulable state Factor V Leiden (HCC) Primary hypercoagulable state MTHFR mutation Disturbances of sulphur-bearing amino-acid metabolism Iron deficiency anemia, unspecified iron deficiency anemia type 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 * Bleeding Precautions (Yoruba) documented in [facility] SystemInstructionsNot on file documented in this encounterProMedica Health SystemInstructionsNot on file documented in this encounterProMedica Health SystemInstructionsNot on file documented in this encounterProMedica Health SystemInstructionsNot on file documented in this encounterProMedica Health SystemInstructionsNot on file documented in this encounterProMedica Health SystemInstructionsNot on file documented in this encounterProMedica Health SystemInstructionsNot on file documented in this encounterProMedide Health SystemInstructionsNot on file documented in this encounterProMedica Health SystemInstructionsNot on file documented in this encounterProMediEli Nutrition Health SystemInstructionsNot on file documented in this encounterProMediEli Nutrition Health SystemInstructionsNot on file documented in this encounterProWood [facility] [email or web address] SystemInstructionsNot on file documented in this encounterProWood County [email or web address] System Instructions * Patient Instructions* Corine Best MA - 08/02/2020 1:49 PM EST YOU DO NOT HAVE LUPUS START CPAP LOSE WEIGHT TAKE VITAMIN D3 1,000 UNITS DAILY documented in this encounter History of Present Illness * Santiago Shell MD - 08/02/2020 1:32 PM EST I had the pleasure of seeing Margaret Prieto in consultation at [facility] [address] [place] [phone] for evaluation of lupus Elizabeth Oneill MD;Elizabeth Oneill MD HISTORY OF PRESENT ILLNESS: Margaret Prieto [...] really depressed about the situation. She gets [facility] on a as needed basis for pain.. [...] Depression Edema External otitis Factor V deficiency (HCC) Factor V Leiden mutation (HCC) GERD (gastroesophageal reflux disease) Shalom's disease Hidradenitis Hidradenitis suppurativa History of DVT (deep vein thrombosis) Hypercholesteremia Hypertension Morbid obesity with BMI of 50.0-59.9, adult (HCC) Osteoarthritis Palpitations Perineal abscess Pilonidal cyst Pneumonia Pulmonary embolism (HCC) Sebaceous cyst Shortness of breath Skin ulcer of groin with fat layer exposed (HCC) Tachycardia Thrombophilia (HCC) Type 2 diabetes mellitus (HCC) Past Surgical History: She Past Surgical History: [...] file Gets together: Not on file Attends buddhist service: Not on file Active member of [...] SSA SSB antibody negative Qureshi antibody negative, [employer] antibody negative, antihistone antibodies borderline positive at [...] this note. Not on my chart Santiago Shell MD Rheumatology Note: This dictation was generated using [employer] voice recognition software. Please excuse any grammatical or spelling errors that may have occurred using the system. * Corine Best MA - 08/02/2020 1:25 [...] By my staff above and agree Santiago Shell MD Note was not shared with patient: Patient/Proxy specifically declined release of this note. 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 Advance Directives and Livin g Will 08/02/2020 1:15 PM Advance Directive Response Recorded Date/ Time Advance Directives No April 17, 2022 12:06pm Latest Code Status on File Code Status Date Activated Date Inactivated Comments Full Code 11/23/2022 7:38 PM 11/27/2022 6:48 PM Code Status History Code Status Date Activated Date Inactivated Comments Full Code 11/11/2022 7:59 PM 11/18/2022 12:49 PM Full Code 10/28/2021 10:56 PM 10/31/2021 1:52 PM Latest Code Status on File Code Status Date Activated Date Inactivated Comments Full Code 11/23/2022 7:38 PM 11/27/2022 6:48 PM Code Status History Code Status Date Activated Date Inactivated Comments Full Code 11/11/2022 7:59 PM 11/18/2022 12:49 PM Full Code 10/28/2021 10:56 PM 10/31/2021 1:52 PM Summary Purpose Family History No Family History Records Found Relationship Condition Age at Onset Recorded Date/T [...] Thigh Abscess Right Thigh Abscess Hidradenitis supprativa. Reason for Referral Specialty Diagnoses / Procedures Referred By Toyin t Referred To Contact Diagnoses Migraine without aura and without status migrainosus, not intractable Selena Thackerra [facility] [address] [place] [phone] Referral ID Status Reason Start Date Expiration Date Visits Re quested Visits Authorized [id number] Closed 1 1 Specialty Diagnoses / Procedures Referred By Contac t Referred To Contact Dermatology Diagnoses Hidradenitis suppurativa Uyen Thackerdenver [facility] [address] [place] [phone] Stephani Lucas MD [address], [address] [address] Referral ID Status Reason Start Date Expiration Date Visits Requested Visits Authorized [id number] Pending Review Specialty Services Required 10/08/2023 10/07/2024 1 1 Specialty Diagnoses / Procedures Referred By Contac t Referred To Contact General Surgery Diagnoses Gastroesophageal reflux disease, unspecified whether esophagitis present Nausea and vomiting, unspecified vomiting type ThackerHarley hinton [facility] [address] [place] [phone] [facility] Gen Surg Grillis Stuart [address] [place] [address] Referral ID Status Reason Start Date Expiration Date Visits Requested Visits Authorized [id number] Authorized Specialty Services Required 10/08/2023 10/07/2024 1 1 Specialty Diagnoses / Procedures Referred By Contac t Referred To Contact Psychiatry Diagnoses Bipolar 1 disorder ([facility]) ThackerHarley hinton [facility] [address] [place] [phone] Yashira Mi, ELECTRICIAN AIRCRAFT-UNHAIRING MACHINE OPERATOR [address] [facility] [address] [place] [address] Referral ID Status Reason Start Date Expiration Date Visits Requested Visits Authorized [id number] Pending Review Specialty Services Required 10/08/2023 10/07/2024 1 1 Specialty Diagnoses / Procedures Referred By Contac t Referred To Contact Medical Oncology / Hematology and Oncology Diagnoses History of pulmonary embolism History of DVT (deep vein thrombosis) Factor 5 Leiden mutation, heterozygous ([facility]) 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) Harley Thacker [facility] [address] [place] [phone] [facility] Hem Onc [address] [place] [address] Referral ID Status Reason Start Date Expiration Date Visits Requested Visits Authorized [id number] Pending Review Specialty Services Required 10/08/2023 10/07/2024 1 1 Specialty Diagnoses / Procedures Referred By Contac t Referred To Contact Diagnoses Preop examination MTHFR (methylene THF reductase) deficiency and homocystinuria (CMS-HCC) BMI 60.0-69.9, adult (CMS-HCC) Hypertension, unspecified type Procedures ECG 12 lead Katya Denise MD [address] [place] [address] Referral ID Status Reason Start Date Expiration Date V isits Requested Visits Authorized [id number] Pending Review 11/07/2023 11/06/2024 1 1 Specialty Diagnoses / Procedures Referred By Contac t Referred To Contact Radiology Diagnoses Abnormal echocardiogram History of DVT (deep vein thrombosis) History of pulmonary embolism Factor 5 Leiden mutation, heterozygous (CMS-HCC) 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) Chest discomfort Shortness of breath Atrial mass Procedures CT angiogram chest Harley Thacker APRN-[facility] [address] [place] [phone] Referral ID Status Reason Start Date Expiration Date V isits Requested Visits Authorized [id number] Pending Review 11/14/2023 11/13/2024 1 1 Specialty Diagnoses / Procedures Referred By Contac t Referred To Contact Hematology Diagnoses History of DVT (deep vein thrombosis) History of pulmonary embolism Factor 5 Leiden mutation, heterozygous ([facility]) 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 ([facility]) Harley Thacker APRN-UNHAIRING MACHINE OPERATOR [address] [place] [phone] Sharif Joseph MD [address] [place] [address] [place] [address] Referral ID Status Reason Start Date Expiration Date Visits Requested Visits Authorized [id number] Pending Review Specialty Services Required 11/14/2023 11/13/2024 1 1 Specialty Diagnoses / Procedures Referred By Contac t Referred To Contact Diagnoses Preoperative clearance Abnormal echocardiogram History of pulmonary embolism Atrial mass Procedures Echo complete W/O contrast Harley Thacker [facility] [address] [place] [phone] [facility] [address] [place] [address] Phone: [phone] Referral ID Status Reason Start Date Expiration Date V isits Requested Visits Authorized [id number] Pending Review 11/14/2023 11/13/2024 1 1 Additional Source Comments Reason for Visit (unrecogniz ed section and content) Reason Comments Consult LUPUS Status Reason Specialty Diagnoses / Procedures Referred By Contact Referred To Contact Closed Rheumatology Diagnoses Lupus ([facility]) Elizabeth Oneill MD [address] [facility] [place] [address] [place] [address] Santiago Shell MD [address] [place] [phone] Reason Comments Establish Care Reason Comments New Patient Specialty Diagnoses / Procedures Referred By Contac t Referred To Contact Psychiatry Diagnoses Bipolar 1 disorder ([facility]) Harley Thacker APRN-UNHAIRING MACHINE OPERATOR [address] [place] [phone] Yashira Mi, ELECTRICIAN AIRCRAFT-UNHAIRING MACHINE OPERATOR [address] [facility] [address] [place] [address] Referral ID Status Reason Start Date Expiration Date Visits Requested Visits Authorized [id number] Pending Review Specialty Services Required 10/08/2023 10/07/2024 1 1 Reason Onset Date Comments Med Refill 10/23/2023 Reason Comments Heartburn GERD, vomiting, diar luis, blood in stool, nausea, referred by Harley Thacker CNP Specialty Diagnoses / Procedures Referred By Toyin arrieta Referred To Contact General Surgery Diagnoses Gastroesophageal reflux disease, unspecified whether esophagitis present Nausea and vomiting, unspecified vomiting type Harley Thacker APRN-[facility] [address] [place], [place] [address] [place] [address] [facility] Gen Surg Grillis Stuart [address] [place] [address] Referral ID Status Reason Start Date Expiration Date V isits Requested Visits Authorized [id number] Closed Specialty Services Required 10/08/2023 10/07/2024 1 1 Reason Comments Pre-op Exam Surgery scheduled fo r November 19, 2023. Reason Comments PTSD Reason Comments Anxiety Reason Comments Follow-up EST PT F/U EARLY SWE LLING, COUGH SCHED VIA MY CHART L/S MS Reason Comments wellness INFORMATION SOURCE (unrecogn ized section and content) DATE CREATED AUTHOR 08/02/2020 [facility] DATE CREATED AUTHOR AUTHOR'S ORGANIZ ATION 10/30/2021 [facility] DATE CREATED AUTHOR AUTHOR'S ORGANIZ ATION 10/07/2022 [facility] DATE CREATED AUTHOR AUTHOR'S ORGANIZ ATION 12/07/2022 [facility] DATE CREATED AUTHOR AUTHOR'S ORGANIZ ATION 07/03/2023 [facility] DATE CREATED AUTHOR AUTHOR'S ORGANIZ ATION 11/11/2023 [facility] DATE CREATED AUTHOR AUTHOR'S ORGANIZ ATION 12/23/2023 [facility] DATE CREATED AUTHOR AUTHOR'S ORGANIZ ATION 12/25/2023 [facility] DATE CREATED AUTHOR AUTHOR'S ORGANIZ ATION 02/14/2024 [facility] DATE CREATED AUTHOR AUTHOR'S ORGANIZ ATION 02/28/2024 [facility] EPIC Care Teams (unrecognized sec tion and content) Team Status: Inactive Member Role Status Dates Pam Flanagan PA-C Primary Care Provider Activ e John Carlson MD Attending Provider Active Team Status: Active Member Role Status Dates Pam Flanagan PA-C Primary Care Provider Activ e John Carlson MD Attending Provider Active Team Status: Inactive Member Role Status Dates John Carlson MD Attending Provider Active Pam Flanagan PA-C [...] Flanagan PA-C Primary Care Provider Activ e Hot Stick Worker Relationship Specialty Start Date End Date Harley Thacker APRN-CNP [address] [place] [address] [place] [phone] PCP - General Nurse Practitioner 10/08/23 Nikolas Parrish CNP Nurse Practitioner Family Medicine 11/24/22 Hot Stick Worker Relationship Specialty Start Date End Date Harley Thacker APRN-CNP [address] [place] [address] [place] [phone] PCP - General Nurse Practitioner 10/08/23 Nikolas Parrish CNP Nurse Practitioner Family Medicine 11/24/22 Hot Stick Worker Relationship Specialty Start Date End Date Harley Thacker APRN-CNP [address] [place] [address] [place] [phone] PCP - General Nurse Practitioner 10/08/23 Nikolaskurt Acunao UNHAIRING MACHINE OPERATOR Nurse Practitioner Family Medicine 11/24/22 Hot Stick Worker Relationship Specialty Start Date End Date Harley Thacker APRN-UNHAIRING MACHINE OPERATOR [address] [place] [address], [facility] Bing [facility] [place] [phone] PCP - General Nurse Practitioner 10/08/23 Nikolas Shamo UNHAIRING MACHINE OPERATOR Nurse Practitioner Family Medicine 11/24/22 Hot Stick Worker Relationship Specialty Start Date End Date Harley Thacker APRN-UNHAIRING MACHINE OPERATOR [address] [place] [address], [facility] [place] [phone] PCP - General Nurse Practitioner 10/08/23 Nikolaskurt Acunao UNHAIRING MACHINE OPERATOR Nurse Practitioner Family Medicine 11/24/22 Hot Stick Worker Relationship Specialty Start Date End Date Harley Thacker APRN-UNHAIRING MACHINE OPERATOR [address] [place] [address], [facility] [place] [phone] PCP - General Nurse Practitioner 10/08/23 Nikolasukrt Acunao UNHAIRING MACHINE OPERATOR Nurse Practitioner Family Medicine 11/24/22 Hot Stick Worker Relationship Specialty Start Date End Date Harley Thacker ELECTRICIAN AIRCRAFT-UNHAIRING MACHINE OPERATOR [address] [place] [address], [facility] [place] [phone] PCP - General Nurse Practitioner 10/08/23 Nikolaskurt Acunao UNHAIRING MACHINE OPERATOR Nurse Practitioner Family Medicine 11/24/22 Hot Stick Worker Relationship Specialty Start Date End Date Harley Thacker APRN-UNHAIRING MACHINE OPERATOR [address] [place] [address], [place] [phone] PCP - General Nurse Practitioner 10/08/23 Nikolas Shamo UNHAIRING MACHINE OPERATOR Nurse Practitioner Family Medicine 11/24/22 Hot Stick Worker Relationship Specialty Start Date End Date Harley Thacker APRN-UNHAIRING MACHINE OPERATOR [address] [place] [phone] PCP - General Nurse Practitioner 10/08/23 Nikolas Parrish UNHAIRING MACHINE OPERATOR Nurse Practitioner Family Medicine 11/24/22 Hot Stick Worker Relationship Specialty Start Date End Date Harley ThackerRICKYN-UNHAIRING MACHINE OPERATOR [address] [place] [address], [place] [phone] PCP - General Nurse Practitioner 10/08/23 Nikolas Parrish UNHAIRING MACHINE OPERATOR Nurse Practitioner Family Medicine 11/24/22 Hot Stick Worker Relationship Specialty Start Date End Date ThackerHarley hinton [address] [address] PCP - General Family Medicine 11/16/23 Hot Stick Worker Relationship Specialty Start Date End Date Thacker HarleyRICKYN-[facility] [address] [place] [address], [place] [phone] PCP - General Nurse Practitioner 10/08/23 Nikolas Parrish CNP Nurse Practitioner Family Medicine 11/24/22 Hot Stick Worker Relationship Specialty Start Date End Date Harley Thacker [address] [address] PCP - General Family Medicine 11/16/23 Hot Stick Worker Relationship Specialty Start Date End Date ThackerHarley APRN-UNHAIRING MACHINE OPERATOR [address] [place] [phone] PCP - General Nurse Practitioner 10/08/23 Nikolas Parrish UNHAIRING MACHINE OPERATOR Nurse Practitioner Family Medicine 11/24/22 Hot Stick Worker Relationship Specialty Start Date End Date Harley Thacker APRN-UNHAIRING MACHINE OPERATOR [address] [place], [facility] [address] [facility] [phone] PCP - General Nurse Practitioner 10/08/23 Nikolaskurt Acunajolene UNHAIRING MACHINE OPERATOR Nurse Practitioner Family Medicine 11/24/22 Hot Stick Worker Relationship Specialty Start Date End Date Harley Thacker APRN-UNHAIRING MACHINE OPERATOR [address] [place], [facility] [place] [phone] PCP - General Nurse Practitioner 10/08/23 Nikolas Acunajolene UNHAIRING MACHINE OPERATOR Nurse Practitioner Family Medicine 11/24/22 Hot Stick Worker Relationship Specialty Start Date End Date Harley Thacker [address] [facility] [address] [place], [place] [phone] PCP - General Family Medicine 11/16/23 Goals (unrecognized section and content) Goals may be documented in a n alternate sectionNot on filedocumented as of this encounterNot on filedocumented as of this encounterNot on filedocumented as of this encounterNot on filedocumented as of this encounterNot on filedocumented as of this encounterNot on filedocumented as of this encounterNot on filedocumented as of this encounterNot on filedocumented as of this encounterNot on filedocumented as of this encounterNot on filedocumented as of this encounterNot on filedocumented as of this encounterNot on filedocumented as of this encounterNot on filedocumented as of this encounterNot on filedocumented as of this encounterNot on filedocumented as of this encounterNot on filedocumented as of this encounterNot on filedocumented as of this encounterNot on filedocumented as of this encounter Source Comments (unrecognize d section and content) In the event this informatio n is protected by the Federal Confidentiality of Alcohol and Drug Abuse Patient Records regulations: The Federal rules restrict any use of the information to criminally investigate or prosecute any alcohol or drug abuse patient.[facility] the event this information is protected by the Federal Confidentiality of Alcohol and Drug Abuse Patient Records regulations: The Federal rules restrict any use of the information to criminally investigate or prosecute any alcohol or drug abuse patient.[facility] HospitalIn the event this information is protected by the Federal Confidentiality of Alcohol and Drug Abuse Patient Records regulations: The Federal rules restrict any use of the information to criminally investigate or prosecute any alcohol or drug abuse patient.[facility] FOR RECORDS PERTAINING TO PATIENTS WHO ARE [...] BE BASED ON THE PRIMARY CLINICAL RECORDS. [facility]. provides no warranty or guarantee of the accuracy or completeness of information in this document.
[2024-02-29 09:56] LABS: Estimated Average Glucose 117 mg/dL; Glycohemoglobin A1C 5.7 % (4.5-6.2)
[2024-02-29 10:05] LABS: Basophils Absolute Auto 0.1 10^3/uL (0.0-0.1); Basophils Percent Auto 0.6 % (0.2-2.0); Eosinophils Absolute Auto 0.3 10^3/uL (0.0-0.7); Eosinophils Percent Auto 2.3 % (0.9-7.0); Hematocrit 41.2 % (36.0-48.0); Immature Granulocytes Abs Auto 0.06 10^3/uL (0.00-0.03); Immature Granulocytes Pct Auto 0.5 % (0.0-0.5); Lymphocytes Absolute Auto 2.1 10^3/uL (1.2-3.8); Lymphocytes Percent Auto 16.9 % (20.5-60.0); Mean Corpuscular HGB Conc 31.6 g/dL (29.9-35.2); Mean Corpuscular Hemoglobin 25.5 pg (26.7-34.0); Mean Corpuscular Volume 80.9 fL (81.0-99.0); Mean Platelet Volume 9.3 fL (9.5-13.5); Monocytes Absolute Auto 0.8 10^3/uL (0.3-0.8); Monocytes Percent Auto 6.2 % (1.7-12.0); Neutrophils Percent Auto 73.5 % (43.0-75.0); Platelet Count 356 10^3/uL (150-450); Red Blood Count 5.09 10^6/uL (4.20-5.40); Red Cell Distribution Width 14.6 % (11.0-15.0); White Blood Count 12.2 10^3/uL (4.0-11.0)
[2024-02-29 11:12] LABS: Thyroid Stimulating Hormone 8.498 uIU/mL (0.358-3.740)
[2024-02-29 11:15] LABS: HCG Quantitative <1 mIU/mL
[2024-02-29 11:33] LABS: Free T4 1.07 ng/dL (0.76-1.46)
[2024-03-01 04:07] LABS: DHEA-Sulfate 28.1 ug/dL (84.8-378.0); FSH 6.4 mIU/mL (.); Luteinizing Hormone(LH) 19.1 mIU/mL (.)
== END 2024-02-29 08:30 | disposition home or self-care (01) ==
LOC: US 08:32
PROVIDERS: PCP Nurse Practitioner Primary Care; Visit Provider Obstetrics & Gynecology
DX: E28.2 Polycystic ovarian syndrome (principal); N92.0 Excessive and frequent menstruation with regular cycle; L73.2 Hidradenitis suppurativa
CPT/HCPCS: 36415; 76830; 76856; 82626; 82627; 83001; 83002; 83036; 84439; 84443; 84702; 85025

== ENCOUNTER 2024-03-10 12:42 | Outpatient (OUT) | payer MEDICARE, MEDICAID, SELFPAY ==
--- NOTE | 2024-03-10 13:20 | PM.CN ---
Consult Note: HPI Data of Consult Patient: known to practice within the last 3 years Consult date: 03/10/24 Requesting Physician: Yancy Cancino MD Primary Care Provider: Nikolas Kovacs NP Consult Narrative Reason for consult: low back, bilateral leg pain Narrative: 33yof who presents for assessment. continues to have worsening low back and bilateral leg pain and weakness. imaging reviewed, which is significant for multilevel stenosis, worst noted at l5-s1. continues to engage in a series of provider directed home exercises, which have not helped >6 weeks. uses norco, gabapentin, flexeril. denies adverse med side effects, though does note norco makes her sleepy. cc:: CC: Yancy Cancino MD Review of Systems ROS Status of ROS 10 or more systems reviewed and unremarkable except as noted in history and below [facility] Medical History Hidradenitis suppurativa ?L73.2 - Hidradenitis suppurativa (ICD-10) Abscess ?L02.91 - Cutaneous abscess, unspecified (ICD-10) Loud snoring ?R06.83 - Snoring (ICD-10) Sleep apnea ?G47.30 - Sleep apnea, unspecified (ICD-10) Osteoarthritis ?M19.90 - Unspecified osteoarthritis, unspecified site (ICD-10) [place]-Schlatter's disease ?M92.529 - Juvenile osteochondrosis of tibia tubercle, unspecified leg (ICD-10) Anemia ?D64.9 - Anemia, unspecified (ICD-10) Heartburn ?R12 - Heartburn (ICD-10) Anxiety ?F41.9 - Anxiety disorder, unspecified (ICD-10) Acid reflux ?K21.9 - Gastro-esophageal reflux disease without esophagitis (ICD-10) Factor V Leiden ?D68.51 - Activated protein C resistance (ICD-10) 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 - Autoimmune thyroiditis (ICD-10) Pulmonary embolism ?I26.99 - Other pulmonary embolism without acute cor pulmonale (ICD-10) High cholesterol ?E78.00 - Pure hypercholesterolemia, unspecified (ICD-10) Hypertension ?I10 - Essential (primary) hypertension (ICD-10) Irregular heart beat ?I49.9 - Cardiac arrhythmia, unspecified (ICD-10) Chest pain ?R07.9 - Chest pain, unspecified (ICD-10) Surgical History Hx of cholecystectomy ?Z90.49 - Acquired absence of other specified parts of digestive tract (ICD-10) H/O partial thyroidectomy ?E89.0 - Postprocedural hypothyroidism (ICD-10) [place] teeth extracted ?K08.409 - Partial loss of teeth, unspecified cause, unspecified class (ICD-10) Hx of tonsillectomy ?Z90.89 - Acquired absence of other organs (ICD-10) History of appendectomy ?Z90.49 - Acquired absence of other specified parts of digestive tract (ICD-10) Social History Smoking status: Current every day smoker Meds Home Medications and Allergies Home Medications ?Medication ?Instructions ?Recorded ?Confirmed ?Type atomoxetine 60 mg capsule 60 mg PO QDAY 02/01/23 06/25/23 History cyclobenzaprine 10 mg tablet 10 mg PO BID 02/01/23 06/25/23 History duloxetine 60 mg capsule,delayed 60 mg PO QDAY 02/01/23 06/25/23 History release (Cymbalta) gabapentin 300 mg capsule 300 mg PO Q8H 02/01/23 06/25/23 History isosorbide mononitrate 10 mg tablet 15 mg PO QDAY 02/01/23 06/25/23 History lamotrigine 25 mg tablet (Lamictal) 25 mg PO QDAY 02/01/23 06/25/23 History metoprolol tartrate 50 mg tablet 50 mg PO BID 02/01/23 06/25/23 History (Lopressor) omeprazole 20 mg capsule,delayed 20 mg PO QDAY 02/01/23 06/25/23 History release prazosin 1 mg capsule (Minipress) 1 mg PO QDAY 02/01/23 06/25/23 History rimegepant 75 mg disintegrating 75 mg PO QDAY PRN migraine headache 02/01/23 06/25/23 History tablet (Nurtec ODT) spironolactone 25 mg tablet 25 mg PO QDAY 02/01/23 06/25/23 History sumatriptan succinate 50 mg tablet See Rx Instructions PO .COMPLEX 02/01/23 06/25/23 History Allergies Allergy/AdvReac Type Severity Reaction Status Date / Time amoxicillin Allergy Severe Unknown Verified 06/25/23 08:05 cefaclor [From Ceclor] Allergy Severe Unknown Verified 06/25/23 08:05 ciprofloxacin [From Cipro] Allergy Severe Hives Verified 06/25/23 08:05 Estrogens Allergy Severe Unknown Verified 06/25/23 08:05 Sulfa (Sulfonamide Allergy Severe Hives Verified 06/25/23 08:05 Antibiotics) tetanus and diphtheria Allergy Severe Unknown Verified 06/25/23 08:05 toxoids Exam Narrative Exam Narrative: Psych-alert and oriented x 3. Attentive and appropriate, constitutionally normal, displays normal mood and affect per situation. There are no obvious deficits in memory, reasoning, or intellect.? Skin-no obvious rashes, bruising, erythema noted to the patient's area of pain.? Extremities- extremities are warm with minimal edema and palpable pulses. Lumbar-tenderness to palpation noted in the lumbar spine and paraspinal musculature. Pain is elicited with flexion, extension, and lateral rotation of the lumbar spine. Range of motion is diminished with these motions. Facet loading maneuvers are positive. Strength-noted to be unremarkable with the exception of decreased strength rated at 4 out of 5 in bilateral quadriceps femoris, anterior tibialis. Sensory-no notable sensory deficits in the bilateral lower extremities to touch or pinprick in all dermatomal distributions with the exception to decreased sensation to the bilateral L4, 5 dermatomal distribution Coordination remains intact.? Gait remains non-antalgic. Assessment and Plan Assessment and Plan (1) Lumbar stenosis with neurogenic claudication: (2) Lumbar spondylosis: Plan 33yof who presents for assessment. failed conservative measures, as noted. imaging reviewed, as noted. given symptoms and imaging, prudent to attempt bilateral l5-s1 transforaminal epidural steroid injection under fluoroscopic guidance. she is in agreement. meds reviewed. will discontinue norco and trial t#3 bid prn. also refilled flexeril 10mg bid prn. follow up after procedure.
== END 2024-03-10 12:43 | disposition home or self-care (01) ==
PROVIDERS: PCP Nurse Practitioner Primary Care; Visit Provider Anesthesiology
DX: M48.062 Spinal stenosis, lumbar region with neurogenic claudication (principal); M47.816 Spondylosis without myelopathy or radiculopathy, lumbar region
CPT/HCPCS: G0463

== ENCOUNTER 2024-03-24 08:59 | Day surgery (SDC) | payer MEDICARE, MEDICAID, SELFPAY ==
[2024-03-24 09:32] LABS: HCG Qualitative NEGATIVE (NEGATIVE); Internal Control Within Normal Limits
[2024-03-24 10:28] VITALS: BP 144/91; PULSE 88; TEMP 36.6; O2SAT 100
[2024-03-24 10:59] VITALS: BP 151/72; BP 162/78; PULSE 89; PULSE 94; O2SAT 96; O2SAT 97
--- NOTE | 2024-03-24 11:04 | W.PM.PROCNOT ---
Date of procedure: 03/24/24 Pre-op diagnosis: Pain due to lumbar stenosis with neurogenic claudication Post-op diagnosis: same as pre-op Procedure: Procedure: Bilateral L5 selective nerve root block Medications: Bupivacaine 0.25% 2cc, lidocaine 2% 1cc, kenalog 80mg The patient was seen and examined in the preoperative holding area.? Informed consent was obtained and placed on the chart.? Patient was brought to the medical procedure unit and placed in the prone position where a timeout was completed verifying the correct patient, procedure site, position, and planned special equipment using sterile aseptic technique.? Under direct fluoroscopic visualization a 25-gauge Quincke tipped spinal needle was advanced at level left L5-S1 to the designated neural foramen where contrast dye was injected to show adequate spread.? There was no evidence of vascular or adverse uptake.? Epidural spread was appreciated.? The above-mentioned injectate was then placed in a 1.5 mL aliquot preceded by negative aspiration.? The needle was removed. The same procedure, at the same level, was completed on the opposite side. ? Patient was taken to the postprocedural recovery area and monitored for an appropriate length of time before found suitable for discharge in the accompaniment of a responsible adult. Anesthesia: Local Surgeon: Yancy Cancino Pathology: none sent Condition: stable Disposition: no change
[2024-03-24] MEDS: BUPIVACAINE HCL 0.25% PF 25 MG/10 ML VIAL INJ (11:05)
[2024-03-24] MEDS: 0.9 % SODIUM CHLORIDE 10 ML SYRINGE - SALINE FLUSH INJ (11:05)
[2024-03-24] MEDS: IOHEXOL 240 MG/ML - 10 ML VIAL 24 MG INJ (11:06)
[2024-03-24] MEDS: TRIAMCINOLONE ACETONIDE 40 MG/ML VIAL 80 MG INJ (11:06)
[2024-03-24] MEDS: LIDOCAINE HCL 2% 400 MG/20 ML MDV 3 ML INJ (11:06)
== END 2024-03-24 11:49 | disposition home or self-care (01) ==
PROVIDERS: PCP Nurse Practitioner Primary Care; Visit Provider Anesthesiology
DX: M48.062 Spinal stenosis, lumbar region with neurogenic claudication (principal); R52 Pain, unspecified
CPT/HCPCS: 36415; 64483; 84703; J0665; J3301; Q9966

== ENCOUNTER 2024-04-03 13:22 | Outpatient (OUT) | payer MEDICARE, MEDICAID, SELFPAY ==
--- OUTSIDE RECORDS SUMMARY | 2024-04-03 13:37 | XMS_ITS | CCD ---
Author Organization [facility] Care Team Providers Care Food Service Steward Name Role Phone Mai Elizabeth Primary Care Provider [phone] SANTIAGO SHELL Admitting Unavailable SHEMARTrev ELIZABETH Referring Unavailable SHEMARTrev ELIZABETH Primary Care Unavailable SANTIAGO SHELL Attending Unavailable MAI ELIZABETH Primary Care Unavailable SANTIAGO SHELL Attending Unavailable MD John Carlson Attending Provider BRIAN Flanagan Primary Care Provider DO Dominique Garrison Attending Provider Carlson, John Attending Unavailable Pam Flanagan Primary Care Unavailable Carlson, John Admitting Unavailable Carlson, John Attending Unavailable Carlson, John Admitting Unavailable Pam Flanagan Juan Primary Care Unavailable Carlson, John Attending Unavailable Carlson, John Admitting Unavailable Pam Flanagan Juan Primary Care Unavailable Carlson, John Attending Unavailable [...] Care Unavailable Carlson, John Attending Unavailable Pam Flanaganw Primary Care Unavailable Carlson, John Admitting Unavailable [facility] Primary Care Unava ilable ANTWON ., DR KACEY Jordan Admitting Unavailable ANTWON ., DR KACEY Jordan Consulting Unavailable ANTWON ., DR KACEY Jordan Attending Unavailable KAPOOR ., DR KACEY Joradn Admitting Unavailable CERVANTES ., ACE Consulting Unavailable PSYCH[facility]ATRIC Primary Care Unavailable KAPOOR ., DR KACEY Jordan Attending Unavailable [facility] Unavailable CERVANTES ., ACE Consulting Unavailable KAPOOR ., DR KACEY Jordan Admitting Unavailable KAPOOR ., DR KACEY Jordan Attending Unavailable SHAMMO, [place] Primary Care Unavailable LAKSHMIPATHY ., NARSAMMATH Attending Norma vailable LAKSHMIPATHY ., NETTE Admitting Norma vailable KAPOOR ., DR KACEY Jordan Admitting Unavailable SHAMMO, NIKOLAS Primary Care Unavailable CERVANTES ., ACE Consulting Unavailable KAPOOR ., DR KACEY Jordan Attending Unavailable SHAMMO, NIKOLAS Admitting Unavailable SHAMMO, [place] Primary Care Unavailable SHAMMO, NIKOLAS Attending Unavailable [facility] Unava ilable CERVANTES ., ACE Attending [...] TRAN, DR NATHAN Linda Admitting Unavailabl e SAEEBATILIO, DR SANIA Khanna Consulting Unavailable MICHELE ., DELONTE Attending Unavailable [facility] Unava ilable MICHELE ., DELONTE Admitting Unavailable RANI ., CHINYERE MONSALVE Consulting Unavailabl e DEREK MIRELES Consulting Unavailable KAPOOR ., DR KACEY Jordan Attending Unavailable [facility] Primary Care Unava ilable CERVANTES ., ACE Consulting Unavailable KAPOOR ., DR KACEY Jordan Admitting Unavailable [facility] Provider CORINE CATHERINE Referring Unavailable [facility] Primary Care Unavailable [facility] Primary Care Provider [facility] Primary Care Unavailable [facility] Referring Unavailable ABHYANKARBRIGETTEEK Attending Unavailable ABHYANKAR, SHARIF Attending Unavailable ABHYANKAR, [...] Referring Unavailable THACKER, HARLEY Primary Care Unavailable MATTHEW PITTMAN Attending Unavailable FAHADEBMATTHEW Referring Unavailable THACKER, HARLEY Primary Care Unavailable TREVOR JIMENEZ Attending Unavailable Thacker [facility], Harley Billie Primary Care Provid er CORINE CATHERINE Attending Unavailable THACKER, HARLEY Referring [...] Referring Unavailable THACKER, HARLEY Primary Care Unavailable Giedraitis MD, Andrius Vytautkurt Attending Unavailable Giedraitis MD, Andrius Vytautas Attending Unavailable Giedraitis MD, Andrius Vytautas Attending Unavailable Giedraitis MD, Andrius Vytautas Attending Unavailable Allergies Allergy Classification Reported Allergen(s) Allergy Type Date of Onset Reaction(s) Facility (12 sources) Allopurinol; Translations: [ALLOPURINOL] Drug Allergy 05-12-20 [facility] (20 sources) Amoxicillin; Translations: [AMOXICILLIN] Drug Allergy 04-28-20 13 [facility] (20 sources) Cefaclor; Translations: [CEFACLOR] Drug Allergy 04-28-20 13 Hives, Other (See Comments), Rash, Unknown [facility] (20 sources) Ciprofloxacin; Translations: [CIPROFLOXACIN] Drug Allergy 09-03-19 20 [facility] (20 sources) Estrogens; Translations: [ESTROGENS] Drug Allergy 01-29-20 15 Other (See Comments), Unknown [facility] (20 sources) Penicillins; Translations: [PENICILLINS] Propensity to adverse reactions to drug 02-15-20 13 Hives, Rash [facility] (20 sources) Sulfonamides (Antibiotic); Translations: [SULFA (SULFONAMIDE ANTIBIOTICS)] Propensity to adverse reactions to drug 09-03-19 [facility] (5 sources) Sulfamethoxazole Drug Allergy 02-01-20 [facility] (11 sources) Trimethoprim; Translations: [TRIMETHOPRIM] Drug Allergy 02-01-20 [facility] (5 sources) DPT Allergy to substance 02-01-20 Redness of Skin [facility] (5 sources) surgical kory Allergy to substance 02-01-20 [facility] (5 sources) hormones Propensity to adverse reactions 02-01-20 will cause blood clots [facility] (2 sources) Amoxicillin Drug Allergy [facility] (2 sources) Cefaclor Drug Allergy [facility] (2 sources) Ciprofloxacin Drug Allergy 09-03-19 [facility] (2 sources) Sulfonamides (Antibiotic) Drug allergy (disorder) 09-03-19 [facility] (20 sources) Cephalosporins (Antibiotic); Translations: [CEPHALOSPORINS] Propensity to adverse reactions to drug 06-13-20 [facility] (20 sources) Sulfamethoxazole / Trimethoprim; Translations: [SULFAMETHOXAZOLE-T RIMETHOPRIM] Drug Allergy 06-16-20 16 Rash, Unknown [facility] (20 sources) Diphtheria,Pertussi s,Tetanus; Translations: [DIPHTHERIA,PERTUSS IS,TETANUS] Propensity to adverse reactions to drug 04-28-20 13 [facility] (20 sources) Other; Translations: [OTHER] Propensity to adverse reactions 02-29-20 16 Rash [facility] (20 sources) Pertussis Vaccines; Translations: [PERTUSSIS VACCINES] Propensity to adverse reactions to drug 04-24-20 18 Unknown [facility] (20 sources) Tetanus Vaccines And Toxoid; Translations: [TETANUS VACCINES AND TOXOID] Propensity to adverse reactions to drug 02-29-20 16 [employer] (6 sources) Tetanus And Diphtheria Toxoids; Translations: [TETANUS AND DIPHTHERIA TOXOIDS] Drug Allergy 06-25-20 23 Unknown [facility] Medications Current Medications Medication Drug Class(es) Dates Sig (Normalized) Sig (Original) acetaminophen 325 mg oral capsule (5 sources) acetaminophen (TYLENOL) 325 mg cap Take by mouth. 0 Active Comment on above: Take by mouth. acetaminophen 325 mg / HYDROcodone bitartrate 5 mg oral tablet (20 sources) Opioid Agonist Start: 04-10-2022 take 1 tablet by mouth every six hours Hydrocodone-Acetami nophen Active 1 TAB PO Q6H 28 April 10, 2022 Start: 04-10-2022 take 1 tablet by christina th every six hours Hydrocodone-Acetaminophen Active 1 TAB P O Q6H 28 April 10, 2022 Start: 04-10-2022 take 1 tablet by christina th every six hours Hydrocodone-Acetaminophen Active 1 TAB P O Q6H 28 April 10, 2022 Start: 02-13-2022 End: 04-10-2022 take 1 tablet by mouth every six hours Hydrocodone-Acetaminophen Discontinued 1 TAB PO Q6H 28 March 13, 2022 April 10, 2022 12:38pm Start: [...] above: Take 1 tablet by christina th. ARIPiprazole 5 mg oral tablet (20 sources) Atypical Antipsychotic Start: 10-19-19 End: 11-28-19 take 1 tablet by mouth in the morning ARIPiprazole (ABILIFY) 10 mg tablet Take 1 tablet (10 mg total) by mouth in the morning. 30 tablet 1 10/19/2023 11/28/2023 Discontinued Start: 05-29-2022 End: 10-19-2023 ARIPiprazole (ABILIFY) 5 mg tablet Take 5 mg by mouth. 0 10/19/2023 Active Comment on above: Take 10 mg by mouth. Take 5 mg by mouth. atomoxetine 60 mg oral capsule (20 sources) Norepinephrine Reuptake Inhibitor Start: End: 024 take 60 mg by mouth once daily in the morning Atomoxetine Active 60 MG PO Every morning January 30, 2022 11:00pm Comment on above: Take 60 mg by mouth. baclofen 10 mg oral tablet (5 sources) gamma-Aminobutyric Acid-ergic Agonist Start: take 10 mg by mouth once daily at bedtime Baclofen Active 10 MG PO Daily at bedtime January 30, 2022 11:00pm 24 hr buPROPion hydrochloride 150 mg extended release oral tablet (5 sources) Aminoketone Start: take 1 tablet by mouth every twenty-four hours buPROPion XL (WELLBUTRIN XL) 150 mg 24 hr tablet Take 150 mg by mouth. 0 05/03/2017 Active Comment on above: Take 150 mg by mouth . busPIRone hydrochloride 15 mg oral tablet (4 sources) Start: 023 busPIRone (BUSPAR) 15 mg tablet cetirizine hydrochloride 10 mg oral tablet (5 sources) Histamine-1 Receptor Antagonist Start: 016 cetirizine (ZYRTEC) 10 mg tablet Take 10 mg by mouth. 0 01/21/2016 Active Comment on above: Take 10 mg by mouth. cholecalciferol 0.025 mg oral tablet (11 sources) Vitamin D Start: take 1 tablet [...] cap Start: 10-19-2017 [facility] Cholecalciferol, Vitamin D3, 10,000 unit cap 10,000 unit oral capsule once weekly 0 10/19/2017 Active Comment on above: 10,000 unit oral cap kyaw once weekly cyclobenzaprine (4 sources) Muscle Relaxant Start: 023 cyclobenzaprine HCl (CYCLOBENZAPRINE ORAL) Take by mouth. 0 02/01/2023 Active Comment on above: Take by mouth. doxycycline hyclate 100 mg oral capsule (5 sources) Tetracycline-class Drug Start: doxycycline hyclate (VIBRAMYCIN) 100 mg capsule Take 100 mg by mouth. 0 04/24/2018 Active Comment on above: Take 100 mg by mouth . DULoxetine 60 mg delayed release oral capsule (19 sources) Serotonin and Norepinephrine Reuptake Inhibitor Start: End: DULoxetine (CYMBALTA) 60 mg capsule Take 60 mg by mouth. 0 05/29/2022 Active Comment on above: Take 60 mg by mouth. escitalopram 5 mg oral tablet (5 sources) Serotonin Reuptake Inhibitor Start: escitalopram oxalate (LEXAPRO) 5 mg tablet esomeprazole 20 mg granules for oral suspension (14 sources) Proton Pump Inhibitor Start: Esomeprazole Magnesium 20 mg packet Take 40 mg by mouth. 0 11/14/2023 Active Comment on above: Take 40 mg by mouth. ferrous sulfate 325 mg oral tablet (20 sources) Start: End: take 1 tablet by mouth once daily Ferrous Sulfate (Iron) 325 mg (65 mg iron) Tablet Active 325 MG PO Daily January 30, 2022 11:00pm Start: 10-29-2019 [facility] ferrous sulfate 325 mg (65 mg iron) tablet Take 1 tablet by mouth twice daily. 60 tablet 5 10/29/2019 Active Comment on above: Take [address] [facility] twice daily. FLUoxetine 40 mg oral capsule (5 sources) Serotonin Reuptake Inhibitor Start: 06-16-2016 FLUoxetine HCl (PROZAC) 40 mg capsule Comment on above: TAKE ONE CAPSULE BY MOUTH ONCE DAILY folic acid 2.5 mg / vitamin b12 2 mg / vitamin b6 25 mg oral tablet (6 sources) Vitamin B12 Start: 12-20-2023 End: 12-14-2024 take 1 tablet by mouth once daily folic acid-Vit B6-Vit B12 (FOLTX) 2.5-25-2 mg tab Indications: MTHFR mutation Take 1 tablet by mouth once daily. 90 tablet 3 12/20/2023 12/14/2024 Active Start: 10-28-2020 End: 12-20-2023 [id number] calcium-B6 (FOLTX) 2-1.13-25 mg tab Indications: Factor V Leiden (HCC) Take 1 tablet by mouth once daily. 90 tablet 3 10/28/2020 12/20/2023 Discontinued Start: 10-28-2020 [id number]-oblvvbgmop te calcium-B6 (FOLTX) 2-1.13-25 mg tab Indications: Factor V Leiden (HCC) Take 1 tablet by mouth once daily. 90 tablet 3 10/28/2020 Active Comment on above: Take 1 tablet by christina th once daily. 0.8 ml fondaparinux sodium 12.5 mg/ml prefilled syringe (3 sources) Factor Xa Inhibitor Start: 2023 End: 2023 [...] 24 hours. gabapentin 300 mg oral capsule (10 sources) Anti-epileptic Agent Start: 2021 take 600 mg by mouth once daily at bedtime Gabapentin Active 600 MG PO Daily at bedtime January 30, 2022 11:00pm End: 10-08-2023 gabapentin (NEURONTIN) 300 m g capsule Take 300 mg by mouth. 0 Active Comment on above: Take 300 mg by mouth . guaifenesin/pseudoephedrne HCl (GUAIFENESIN 600/PSE 120 ORAL) (5 sources) guaifenesin/pseu doephedrn e HCl (GUAIFENESIN 600/PSE 120 ORAL) Take by mouth. 0 Active Comment on above: Take by mouth. hydroCHLOROthiazide 25 mg oral tablet (20 sources) Thiazide Diuretic Start: End: take 1 tablet by mouth once daily [...] mononitrate 30 mg extended release oral tablet (12 sources) Nitrate Vasodilator Start: 09-01-2020 isosorbide mononitrate [...] (ONE HALF) TABLET BY MOUTH ONCE DAILY lamoTRIgine 25 mg oral tablet (20 sources) Mood Stabilizer, Anti-epileptic Agent Start: 04-13-2022 [...] on above: Take 50 mg by mouth. levothyroxine sodium 0.05 mg oral tablet (5 sources) l-Thyroxine Start: 08-14-2016 levothyroxine (SYNTHROID) 50 mcg tablet Comment on above: TAKE ONE TABLET BY M OUTH ONCE DAILY lidocaine hydrochloride 30 mg/ml topical cream (6 sources) Antiarrhythmic, Amide Local Anesthetic Start: 06-21-2018 Lidocaine HCl 3 % crea Start: 06-21-2018 lidocaine HCL 3 % Crea APPLY TO THE AFFECTED AREA(S) BY TOPICAL ROUTE 2 TIMES PER DAY . 0 06/21/2018 Active lisinopril 10 mg oral tablet (5 sources) Angiotensin Converting Enzyme Inhibitor Start: 06-13-2018 lisinopril (ZESTRIL, PRINIVIL) 10 mg tablet loratadine 10 mg oral tablet (5 sources) Start: 04-25-2018 loratadine (CLARITIN) 10 mg tablet melatonin 10 mg oral tablet (5 sources) take 1 tablet by mouth in the morning melatonin 10 mg tablet Take 10 mg by mouth in the morning. 0 Active metoclopramide 10 mg oral tablet (3 sources) Dopamine-2 Receptor Antagonist Start: 12-10-2023 metoclopramide HCl (REGLAN) 10 mg tablet mupirocin 0.02 mg/mg topical ointment (5 sources) RNA Synthetase Inhibitor Antibacterial Start: 03-14-2017 mupirocin (BACTROBAN) 2 % ointment Apply 1 application to affected area. 0 03/14/2017 Active Comment on above: Apply 1 application to affected area. omeprazole 20 mg delayed release oral capsule (20 sources) Proton Pump Inhibitor Start: 01-31-2022 End: 11-14-2023 take 20 mg by mouth once daily in the morning Omeprazole Active 20 MG PO Every morning January 30, 2022 11:00pm Comment on above: Take 20 mg by mouth once daily. prazosin 2 mg oral capsule (20 sources) alpha-Adrenergic Senthil Start: 10-19-2023 End: 11-28-2023 [...] mouth. rimegepant 75 mg disintegrating oral tablet (11 sources) Start: 04-04-20 End: 11-07-19 NURTEC ODT 75 mg disintegrating tablet rivaroxaban 20 mg oral tablet (5 sources) Factor Xa Inhibitor Start: 02-01-20 take 1 tablet by mouth once daily Rivaroxaban (Xarelto) 20 mg tablet Active 20 MG PO Daily January 30, 2022 11:00pm spironolactone 25 mg oral tablet (20 sources) Aldosterone Antagonist Start: 05-12-20 End: 11-28-19 spironolactone (ALDACTONE) 25 mg tablet sucralfate 1000 mg oral tablet (11 sources) Aluminum Complex Start: 02-01-20 take 1 g by mouth twice daily Sucralfate Active 1 GM PO Twice daily January 30, 2022 11:00pm take 1 tablet by mouth four time s daily sucralfate (CARAFATE) 1 gram tablet Take 1 g by mouth 4 (four) times a day . 0 Active Comment on above: Take 1 g by mouth. tetracycline hydrochloride 500 mg oral capsule (5 sources) Tetracycline-class Antimicrobial Start: 09-29-2020 tetracycline (SUMYCIN) 500 mg cap Comment on above: TAKE 1 CAPSULE BY [facility] EVERY 12 HOURS ON AN EMPTY STOMACH triamcinolone acetonide 5 mg/ml topical cream (5 sources) Corticosteroid Start: 04-03-2017 triamcinolone acetonide (KENALOG) 0.5 % cream Completed/Discontinued Medications Medication Drug Class(es) Dates Sig (Normalized) Sig (Original) apixaban 5 mg oral tablet (18 sources) Factor Xa Inhibitor Start: 12-29-2022 End: 12-20-2023 apixaban (ELIQUIS) 5 mg tab(s) Take 5 mg by mouth. 0 12/29/2022 12/20/2023 Discontinued Comment on above: Take 5 mg by mouth. lansoprazole 3 mg/mL in sodium bicarbonate (1 source) Start: 11-14-2023 End: 11-14-2023 take 10 mL by mouth in the morning lansoprazole 3 mg/mL in sodium bicarbonate Take 10 mL (30 mg total) by mouth in the morning. 300 mL 2 11/14/2023 11/14/2023 Discontinued (Alternate therapy) 3 ml liraglutide 6 mg/ml pen injector (20 sources) GLP-1 Receptor Agonist Start: 10-13-2023 End: [...] on above: Inject 0.6 mg subcut aneously. metoprolol tartrate 50 mg oral tablet (20 sources) beta-Adrenergic Senthil Start: 10-09-19 End: 11-28-19 take 1 tablet by mouth in the [...] above: Take 12.5 mg by mout h. SUMAtriptan 50 mg oral tablet (1 source) Serotonin-1b and Serotonin-1d Receptor Agonist Start: 03-24-2022 End: 10-13-2023 SUMAtriptan (IMITREX) 50 mg tablet Take 1 tablet (50 mg total) by mouth as needed for migraine. 0 03/24/2022 10/13/2023 Discontinued (Therapy completed) Problems Active Problems Problem Classification Problem Date [...] Translations: [Attention-deficit hyperactivity disorder, combined type] Onset: 024 Chronic Coagulation and hemorrhagic disorders (20 sources) [...] without esophagitis; Translations: [Gastroesophageal reflux disease] Onset: 10-08-2023 Chronic Essential hypertension (20 sources) Essential (primary) hypertension; Translations: [Essential hypertension] Onset: 11-24-2022 Chronic Fluid and electrolyte disorders (1 source) [...] deficiency; Translations: [Vitamin D deficiency, unspecified] Onset: 08-02-2020 Chronic Other aftercare (1 source) 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 child welfare consultant (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 therapy; Translations: [OTH MEDICATION RECONCILIATION TECHNICIAN CURRENT DRUG THERAPY] Onset: Episodic Other aftercare (1 source) [facility] (current) use of anticoagulants; Translations: [GROUP HOME CURRNT USE ANTICOAGULANTS] Onset: Episodic Other and ill-defined heart disease (1 source) Mass of thoracic structure; Translations: [Other ill-defined heart diseases] 11-14-2023 Chronic Other and ill-defined heart disease (2 sources) Other ill-defined heart diseases; Translations: [Other ill-defined heart diseases] Onset: 03-13-2 024 Chronic Other diseases of veins and lymphatics [...] nutritional and metabolic disease] 10-08-2023 Episodic Other skin disorders (20 sources) Hidradenitis [...] Translations: [Genetic susceptibility to other disease] Onset: 017 Resolve d: 017 03-15-2017 Episodic Screening and history of mental health and substance abuse codes (1 source) Personal history of nicotine dependence; Translations: [PERSONAL HISTORY OF NICOTINE DEPEND] Onset: Episodic Spondylosis; intervertebral disc disorders; other back problems (19 sources) Other spondylosis with radiculopathy, lumbar region; Translations: [Spondylosis] Onset: 021 01-13-2022 Chronic Spondylosis; intervertebral disc disorders; other [...] and metabolic disease] Onset: 10-08-2023 Episodic Other screening for suspected conditions (not mental disorders or infectious disease) (10 sources) Encounter for screening for cardiovascular disorders; Translations: [Encounter for screening for nutritional disorder] Onset: 10-24-2022 11-13-2023 Episodic Other skin disorders (2 sources) Hidradenitis [...] tuberculin stim IFN-g Ql (Bld) Negative Normal [facility] Comment on above: Order Comment: Speci men Type: BLOOD SPECIMEN Ordering Facility: [facility] Address: [address] [place] [address] Performed By: #### 2 276-4, 2131-9, 01954-4, 2283-8 #### [facility] CLIA [id number] [address] [place] [address] [place] MITOGEN MINUS NIL >9.99 Normal >=0.50 [facility] Comment on above: Order Comment: Speci men Type: BLOOD SPECIMEN Ordering Facility: [facility] Address: [address] [place] [address] Performed By: #### 2 276-4, 9, 23281-3, 8 #### [facility] CLIA [id number] [address] [place] [address] [place] TB GAMMA INTERPRETATION Infection with M. tuberculosis complex is unlikely. If latent tuberculosis infection is highly suspected, a negative result does not rule out the infection. Specimens from immunocompromised patients and those <5 years of age may show false negative results. In case of a contact investigation, please repeat 8-12 weeks after a known exposure. Normal [facility] Comment on above: Order Comment: Husseini gilberto Type: BLOOD SPECIMEN Ordering Facility: [facility] Address: [address] [place] [address] Performed By: #### 2 276-4, 9, 07352-4, 8 #### [facility] CLIA [id number] [address] [place] [address] [place] TB NIL 0.01 IU/mL Normal <=8.00 [facility] Comment on above: Order Comment: Husseini men Type: BLOOD SPECIMEN Ordering Facility: [facility] Address: [address] [place] [address] Performed By: #### 2 276-4, 2131-9, 13593-9, 2283-8 #### [facility] CLIA [id number] [address] [place] [address] [place] TB1 AG MINUS NIL 0.00 IU/mL Normal <0.35 [facility] Comment on above: Order Comment: Speci men Type: BLOOD SPECIMEN Ordering Facility: [facility] Address: [address] [place] [address] Performed By: #### 2 276-4, 2131-9, 53823-9, 2283-8 #### [facility] CLIA [id number] [address] [place] [address] [place] TB2 AG MINUS NIL 0.00 IU/mL Normal <0.35 [facility] Comment on above: Order Comment: Speci men Type: BLOOD SPECIMEN Ordering Facility: [facility] Address: [address] [place] [address] Performed By: #### 2 276-4, 9, 49704-6, 8 #### [facility] CLIA [id number] [address] [place] [address] [place] CBC W Auto Differential pane l (Bld)on 12-20-2023 Basophils (Bld) [#/Vol] 0.05 10*3/uL Normal <0.11 [facility] Comment on above: Order Comment: Speci men Type: BLOOD SPECIMEN Ordering Facility: [facility] Address: [address] [place] [address] Performed By: #### 2 276-4, 9, 59100-7, 8 #### [facility] CLIA [id number] [address] [place] [address] [place] Basophils/100 WBC (Bld) 0.5 % Normal [facility] Comment on above: Order Comment: Speci men Type: BLOOD SPECIMEN Ordering Facility: [facility] Address: [address] [place] [address] Performed By: #### 2 276-4, 2131-9, 09259-3, 2283-8 #### [facility] CLIA [id number] [address] [place] [address] [place] Differential cell count method Nom (Bld) Auto Normal [facility] Comment on above: Order Comment: Speci men Type: BLOOD SPECIMEN Ordering Facility: [facility] Address: [address] [place] [address] Performed By: #### 2 276-4, 2131-9, 85095-3, 2283-8 #### [facility] CLIA [id number] [address] [place] [address] [place] Eosinophils (Bld) [#/Vol] 0.26 10*3/uL Normal <0.46 [facility] Comment on above: Order Comment: Speci men Type: BLOOD SPECIMEN Ordering Facility: [facility] Address: [address] [place] [address] Performed By: #### 2 276-4, 2131-9, 43572-3, 2283-8 #### [facility] CLIA [id number] [address] [place] [address] [place] Eosinophils/100 WBC (Bld) 2.6 % Normal [facility] Comment on above: Order Comment: Speci men Type: BLOOD SPECIMEN Ordering Facility: [facility] Address: [address] [place] [address] Performed By: #### 2 276-4, 2131-9, 04749-0, 2283-8 #### [facility] CLIA [id number] [address] [place] [address] [place] Erythrocyte distribution width (RBC) [Ratio] 14.6 % Normal 11.5-15.0 [facility] Comment on above: Order Comment: Speci men Type: BLOOD SPECIMEN Ordering Facility: [facility] Address: [address] [place] [address] Performed By: #### 2 276-4, 2131-9, 66014-4, 228-8 #### [facility] CLIA [id number] [address] [place] [address] [place] Hematocrit (Bld) [Volume fraction] 40.9 % Normal 36.0-46.0 [facility] Comment on above: Order Comment: Speci men Type: BLOOD SPECIMEN Ordering Facility: [facility] Address: [address] [place] [address] Performed By: #### 2 276-4, 2131-9, 31200-6, 2283-8 #### [facility] CLIA [id number] [address] [place] [address] [place] Hemoglobin (Bld) [Mass/Vol] 13.1 g/dL Normal 11.5-15.5 [facility] Comment on above: Order Comment: Speci men Type: BLOOD SPECIMEN Ordering Facility: [facility] Address: [address] [place] [address] Performed By: #### 2 276-4, 2131-9, 55060-1, 2283-8 #### [facility] CLIA [id number] [address] [place] [address] [place] Immature granulocytes (Bld) [#/Vol] 0.04 10*3/uL Normal <0.10 [facility] Comment on above: Order Comment: Speci men Type: BLOOD SPECIMEN Ordering Facility: [facility] Address: [address] [place] [address] Performed By: #### 2 276-4, 2131-9, 74255-0, 2283-8 #### [facility] CLIA [id number] [address] [place] [address] [place] Immature granulocytes/100 WBC (Bld) 0.4 % Normal [facility] Comment on above: Order Comment: Speci men Type: BLOOD SPECIMEN Ordering Facility: [facility] Address: [address] [place] [address] Performed By: #### 2 276-4, 2131-9, 24381-2, 2283-8 #### [facility] CLIA [id number] [address] [place] [address] [place] Lymphocytes (Bld) [#/Vol] 1.75 10*3/uL Normal 1.00-4.00 [facility] Comment on above: Order Comment: Speci men Type: BLOOD SPECIMEN Ordering Facility: [facility] Address: [address] [place] [address] Performed By: #### 2 276-4, 2131-9, 51548-1, 2283-8 #### [facility] CLIA [id number] [address] [place] [address] [place] Lymphocytes/100 WBC (Bld) 17.4 % Normal [facility] Comment on above: Order Comment: Speci men Type: BLOOD SPECIMEN Ordering Facility: [facility] Address: [address] [place] [address] Performed By: #### 2 276-4, 2131-9, 68164-1, 2283-8 #### [facility] CLIA [id number] [address] [place] [address] [place] MCH (RBC) [Entitic mass] 25.6 pg Low 26.0-34.0 [facility] Comment on above: Order Comment: Speci men Type: BLOOD SPECIMEN Ordering Facility: [facility] Address: [address] [place] [address] Performed By: #### 2 276-4, 9, 99866-5, 2283-8 #### [facility] CLIA [id number] [address] [place], [place] [address] [place] MCHC (RBC) [Mass/Vol] 32.0 g/dL Normal 30.5-36.0 [facility] Comment on above: Order Comment: Speci men Type: BLOOD SPECIMEN Ordering Facility: [facility] Address: [address] [place] [address] Performed By: #### 2 276-4, 2131-9, 41054-4, 2283-8 #### [facility] CLIA [id number] [address] [place] [address] [place] MCV (RBC) [Entitic vol] 79.9 fL Low 80.0-100.0 [facility] Comment on above: Order Comment: Speci men Type: BLOOD SPECIMEN Ordering Facility: [facility] Address: [address] [place] [address] Performed By: #### 2 276-4, 2131-9, 67589-7, 2283-8 #### [facility] CLIA [id number] [address] [place] [address] [place] Monocytes (Bld) [#/Vol] 0.57 10*3/uL Normal <0.87 [facility] Comment on above: Order Comment: Speci men Type: BLOOD SPECIMEN Ordering Facility: [facility] Address: [address] [place] [address] Performed By: #### 2 276-4, 2131-9, 89937-7, 2283-8 #### [facility] CLIA [id number] [address] [place] [address] [place] Monocytes/100 WBC (Bld) 5.7 % Normal [facility] Comment on above: Order Comment: Speci men Type: BLOOD SPECIMEN Ordering Facility: [facility] Address: [address] [place] [address] Performed By: #### 2 276-4, 2131-9, 68049-2, 2283-8 #### [facility] CLIA [id number] [address] [place] [address] [place] Neutrophils (Bld) [#/Vol] 7.41 10*3/uL Normal 1.45-7.50 [facility] Comment on above: Order Comment: Speci men Type: BLOOD SPECIMEN Ordering Facility: [facility] Address: [address] [place] [address] Performed By: #### 2 276-4, 2131-9, 28028-1, 2283-8 #### [facility] CLIA [id number] [address] [place] [address] [place] Neutrophils/100 WBC (Bld) 73.4 % Normal [facility] Comment on above: Order Comment: Speci men Type: BLOOD SPECIMEN Ordering Facility: [facility] Address: [address] [place] [address] Performed By: #### 2 276-4, 2132-9, 35923-6, 2283-8 #### [facility] CLIA [id number] [address] [place] [address] [place] Nucleated RBC (Bld) [#/Vol] 10*3/uL Normal <0.01 [facility] Comment on above: Order Comment: Speci men Type: BLOOD SPECIMEN Ordering Facility: [facility] Address: [address] [place] [address] Performed By: #### 2 276-4, 2131-9, 98491-5, 2283-8 #### [facility] CLIA [id number] [address] [place] [address] [place] Nucleated RBC/100 WBC (Bld) [Ratio] 0.0 /100 WBC Normal [facility] Comment on above: Order Comment: Speci men Type: BLOOD SPECIMEN Ordering Facility: [facility] Address: [address] [place] [address] Performed By: #### 2 276-4, 2131-9, 20559-4, 2283-8 #### [facility] CLIA [id number] [address] [place], [place] [address] [place] Platelet mean volume (Bld) [Entitic vol] 8.8 fL Low 9.0-12.7 [facility] Comment on above: Order Comment: Speci men Type: BLOOD SPECIMEN Ordering Facility: [facility] Address: [address] [place] [address] Performed By: #### 2 276-4, 2131-9, 77932-6, 2283-8 #### [facility] CLIA [id number] [address] [place] [address] [place] Platelets (Bld) [#/Vol] 327 10*3/uL Normal 150-400 [facility] Comment on above: Order Comment: Speci men Type: BLOOD SPECIMEN Ordering Facility: [facility] Address: [address] [place] [address] Performed By: #### 2 276-4, 2132-9, 46141-4, 2284-8 #### [facility] CLIA [id number] [address] [place] [address] [place] RBC (Bld) [#/Vol] 5.12 10*6/uL Normal 3.90-5.20 [facility] Comment on above: Order Comment: Speci men Type: BLOOD SPECIMEN Ordering Facility: [facility] Address: [address] [place] [address] Performed By: #### 2 276-4, 2132-9, 26280-2, 2284-8 #### [facility] CLIA [id number] [address] [place] [address] [place] WBC (Bld) [#/Vol] 10.08 10*3/uL Normal 3.70-11.00 [facility] Comment on above: Order Comment: Speci men Type: BLOOD SPECIMEN Ordering Facility: [facility] Address: [address] [place] [address] Performed By: #### 2 276-4, 2132-9, 75904-2, 2284-8 #### [facility] CLIA [id number] [address] [place] [address] [place] CNOVSPon 12-20-2023 CNOVSP Visit (SP) Office ([place]) ---- MARGARET PRIETO ([id number]) 1990 F Date Time Provider Department 12/20/23 10:00 AM SHARIF JOSEPH During your visit today, we recorded the following information about you: Temperature Pulse Respiration Blood pressure 97.7 degrees 98/minute 16/minute 154/90 Weight 171.1 kg Sharif Joseph MD 12/22/2023 6:44 AM Signed NAME: Margaret Prieto CLINIC NO.: [id number] DATE OF SERVICE: December 20, 2023 (Jonelle) Some elements in this clinic note that are critical to medical decision making have been carefully reviewed and included from a prior clinic note dated: November 29, 2023 (Jonelle) Referring Provider: Harley Thacker APRN-LINKING MACHINE OPERATOR Additional Clinicians involved in Margaret [...] anticoagulation injecti (more content not included)... Normal [facility] Comprehensive metabolic 2000 panelon 12-20-2023 Albumin [Mass/Vol] 3.7 g/dL Low 3.9-4.9 [facility] Comment on above: Order Comment: Speci men Type: BLOOD SPECIMEN Ordering Facility: [facility] Address: [address] [place] [address] Performed By: #### 2 276-4, 9, 17885-2, 8 #### [facility] CLIA [id number] [address] [place] [address] [place] ALP [Catalytic activity/Vol] 85 U/L Normal 34-123 [facility] Comment on above: Order Comment: Speci men Type: BLOOD SPECIMEN Ordering Facility: [facility] Address: [address] [place] [address] Performed By: #### 2 276-4, 9, 62738-0, 8 #### [facility] CLIA [id number] [address] [place] [address] [place] ALT [Catalytic activity/Vol] 30 U/L Normal 7-38 [facility] Comment on above: Order Comment: Speci men Type: BLOOD SPECIMEN Ordering Facility: [facility] Address: [address] [place] [address] Performed By: #### 2 276-4, 2131-9, 86867-8, 8 #### [facility] CLIA [id number] [address] [place], [place] [address] [place] Anion gap [Moles/Vol] 13 mmol/L Normal 9-18 [facility] Comment on above: Order Comment: Speci men Type: BLOOD SPECIMEN Ordering Facility: [facility] Address: [address] [place] [address] Performed By: #### 2 276-4, 2131-9, 84311-2, 228-8 #### [facility] CLIA [id number] [address] [place] [address] [place] AST [Catalytic activity/Vol] 18 U/L Normal 13-35 [facility] Comment on above: Order Comment: Speci men Type: BLOOD SPECIMEN Ordering Facility: [facility] Address: [address] [place] [address] Performed By: #### 2 276-4, 2131-9, 29825-6, 2283-8 #### [facility] CLIA [id number] [address] [place] [address] [place] Bilirubin [Mass/Vol] 0.3 mg/dL Normal 0.2-1.3 [facility] Comment on above: Order Comment: Speci men Type: BLOOD SPECIMEN Ordering Facility: [facility] Address: [address] [place] [address] Performed By: #### 2 276-4, 2131-9, 88531-5, 2283-8 #### [facility] CLIA [id number] [address] [place], [place] [address] [place] Calcium [Mass/Vol] 9.4 mg/dL Normal 8.5-10.2 [facility] Comment on above: Order Comment: Speci men Type: BLOOD SPECIMEN Ordering Facility: [facility] Address: [address] [place] [address] Performed By: #### 2 276-4, 2131-9, 97297-8, 2283-8 #### [facility] CLIA [id number] [address] [place] [address] [place] Chloride [Moles/Vol] 106 mmol/L High 97-105 [facility] Comment on above: Order Comment: Speci men Type: BLOOD SPECIMEN Ordering Facility: [facility] Address: [address] [place] [address] Performed By: #### 2 276-4, 2131-9, 36180-1, 2284-8 #### [facility] CLIA [id number] [address] [place] [address] [place] CO2 [Moles/Vol] 23 mmol/L Normal 22-30 [facility] Comment on above: Order Comment: Speci men Type: BLOOD SPECIMEN Ordering Facility: [facility] Address: [address] [place] [address] Performed By: #### 2 276-4, 2131-9, 07869-7, 2284-8 #### [facility] CLIA [id number] [address] [place] [address] [place] Creatinine [Mass/Vol] 0.81 mg/dL Normal 0.58-0.96 [facility] Comment on above: Order Comment: Speci men Type: BLOOD SPECIMEN Ordering Facility: [facility] Address: [address] [place] [address] Performed By: #### 2 276-4, 2131-9, 19515-2, 2284-8 #### [facility] CLIA [id number] [address] [place] [address] [place] Creatinine and Glomerular filtration rate.predicted panel (S/P/Bld) 98 mL/min/1.73m??? Normal >=60 [facility] Comment on above: Order Comment: Speci men Type: BLOOD SPECIMEN Ordering Facility: [facility] Address: [address] [place] [address] Result Comment: Faye mated Glomerular Filtration Rate [...] actual GFR. Performed By: #### 2 276-4, 9, 11440-6, 8 #### [facility] CLIA [id number] [address] [place] [address] [place] Glucose [Mass/Vol] 114 mg/dL High 74-99 [facility] Comment on above: Order Comment: Nima macias Type: BLOOD SPECIMEN Ordering Facility: [facility] Address: [address] [place] [address] Result Comment: The Stateless Diabetes Association (ADA) provides guidance for cutoff [...] Standards of Medical Care in Diabetes 2016, Stateless Diabetes Association. Diabetes Care. 2016.39(Suppl 1). Performed By: #### 2 276-4, 9, 01147-8, 2284-04 #### [facility] CLIA [id number] [address] [place] [address] [place] Potassium [Moles/Vol] 4.3 mmol/L Normal 3.7-5.1 [facility] Comment on above: Order Comment: Nima macias Type: BLOOD SPECIMEN Ordering Facility: [facility] Address: [address] [address] Performed By: #### 2 276-4, 9, 40899-4, 2284-04 #### [facility] CLIA [id number] [address] [place] [address] [place] Protein [Mass/Vol] 7.9 g/dL Normal 6.3-8.0 [facility] Comment on above: Order Comment: Speci men Type: BLOOD SPECIMEN Ordering Facility: [facility] Address: [address] [place] [address] Performed By: #### 2 276-4, 2131-9, 50566-5, 2284-8 #### [facility] CLIA [id number] [address] [place] [address] [place] Sodium [Moles/Vol] 142 mmol/L Normal 136-144 [facility] Comment on above: Order Comment: Speci men Type: BLOOD SPECIMEN Ordering Facility: [facility] Address: [address] [place] [address] Performed By: #### 2 276-4, 2131-9, 49087-6, 4-8 #### [facility] CLIA [id number] [address] [place] [address] [place] Urea nitrogen [Mass/Vol] 13 mg/dL Normal 7-21 [facility] Comment on above: Order Comment: Speci men Type: BLOOD SPECIMEN Ordering Facility: [facility] Address: [address] [place] [address] Performed By: #### 2 276-4, 2131-9, 69601-2, 2284-8 #### [facility] CLIA [id number] [address] [place], [place] [address] [place] Ferritin SerPl-mCncon 2023 Ferritin [Mass/Vol] 63.7 ng/mL Normal 14.7-205.1 [facility] Comment on above: Order Comment: Speci men Type: BLOOD SPECIMEN Ordering Facility: [facility] Address: [address] [place] [address] Performed By: #### 2 4331-1 #### [facility] CLIA [id number] [address] [place] [address] [place] [facility] CLIA [id number] [address] [place] [address] #### 2276-4, 91993-1 #### [facility] CLIA [id number] [address] [place] [address] [place] Folate SerPl-mCncon 12-20-19 24 Folate [Mass/Vol] 13.9 ng/mL Normal >4.7 [facility] Comment on above: Order Comment: Speci men Type: BLOOD SPECIMEN Ordering Facility: [facility] Address: [address] [place] [address] Performed By: #### 2 132-9, 2284-8 #### [facility] CLIA [id number] [address] [place] [address] [place] HBV surface Ag Ser Qlon 12-02 HBV surface Ag Ql (S) Negative Normal Negative [facility] Comment on above: Order Comment: Speci men Type: BLOOD SPECIMEN Ordering Facility: [facility] Address: [address] [place] [address] Performed By: #### 2 276-4, 2132-9, 06860-9, 2284-8 #### [facility] CLIA [id number] [address] [place] [address] [place] HCV Ab Ser Qlon 12-20-2023 HCV Ab Ql (S) Negative Normal Negative [facility] Comment on above: Order Comment: Speci men Type: BLOOD SPECIMEN Ordering Facility: [facility] Address: [address] [place] [address], [address], [place] [address] Result Comment: The result suggests no evidence of active infection with Hepatitis C virus. Should recent infection be suspected, repeat testing may be considered 4-6 weeks after this draw. Performed By: #### 1 6128-1 #### [facility] CLIA [id number] [address] [place] [address] [place] Hcys SerPl-sCncon 12-20-2023 Homocysteine [Moles/Vol] 7.4 umol/L Normal <15.1 [facility] Comment on above: Order Comment: Speci men Type: BLOOD SPECIMEN Ordering Facility: [facility] Address: [address] [place] [address] Performed By: #### 2 276-4, 2132-9, 28777-2, 2284-8 #### [facility] CLIA [id number] [address] [place] [address] [place] Iron and Iron binding capaci ty panelon 12-20-2023 Iron [Mass/Vol] 35 ug/dL Low 41-186 [facility] Comment on above: Order Comment: Speci men Type: BLOOD SPECIMEN Ordering Facility: [facility] Address: [address] [place] [address] Performed By: #### 2 4331-1 #### [facility] CLIA [id number] [address] [place] [address] [place] [facility] CLIA [id number] [address] [place] [address] #### 2276-4, 38686-3 #### [facility] CLIA [id number] [address] [place] [address] [place] Iron binding capacity [Mass/Vol] 339 ug/dL Normal 232-386 [facility] Comment on above: Order Comment: Speci men Type: BLOOD SPECIMEN Ordering Facility: [facility] Address: [address] [place] [address] Performed By: #### 2 4331-1 #### [facility] CLIA [id number] [address] [place] [address] [place] [facility] CLIA [id number] [address] [place] [address] #### 2276-4, 19783-7 #### [facility] CLIA [id number] [address] [place] [address] [place] Iron/TIBC [Molar ratio] 10.3 % Low 15.0-57.0 [facility] Comment on above: Order Comment: Speci men Type: BLOOD SPECIMEN Ordering Facility: [facility] Address: [address] [place] [address] Performed By: #### 2 4331-1 #### [facility] CLIA [id number] [address] [place] [address] [place] [facility] CLIA [id number] [address] [place] [address] #### 2276-4, 44857-0 #### [facility] CLIA [id number] [address] [place] [address] [place] Lipid 1996 panelon 4 Cholesterol [Mass/Vol] 173 mg/dL Normal <200 [facility] Comment on above: Order Comment: Speci men Type: BLOOD SPECIMEN Ordering Facility: [facility] Address: [address] [place] [address], [address], [place] [id number] Result Comment: <200 mg/dL, Desirable 200-239 mg/dL, Borderline high >239 mg/dL, High Performed By: #### 2 4331-1 #### [facility] CLIA [id number] [address] [place] [address] [place] [facility] CLIA [id number] [address] [place] [address] #### 2276-4, 14070-8 #### [facility] CLIA [id number] [address] [place] [address] [place] Cholesterol in HDL [Mass/Vol] 32 mg/dL Low >39 [facility] Comment on above: Order Comment: Speci men Type: BLOOD SPECIMEN Ordering Facility: [facility] Address: [address] [place] [address], [address], [place] [id number] Result Comment: 40-5 9 mg/dL, Acceptable >59 mg/dL, High: Negative risk factor for coronary heart disease <40 mg/dL, Low: Positive risk factor for coronary heart disease Performed By: #### 2 4331-1 #### [facility] CLIA [id number] [address] [place] [address] LAB CLIA [id number] [address] [place] [address] #### 2276-4, 34384-5 #### [facility] CLIA [id number] [address] [place] [address] [place] Cholesterol in LDL [Mass/Vol] 116 mg/dL High <100 [facility] Comment on above: Order Comment: Nima men Type: BLOOD SPECIMEN [facility] Address: [address] [place] [address], [address] [address] Result Comment: <100 mg/dL, Optimal 100-129 mg/dL, Near optimal/above optimal 130-159 mg/dL, Borderline high 160-189 mg/dL, High >189 mg/dL, Very high Secondary prevention optimal LDL Cholesterol levels are recommended to be < 70 mg/dL Performed By: #### 2 4331-1 #### [facility] CLIA [id number] [address] [place] [address] [facility] CLIA [id number] [address] [place] [address] #### 2276-4, [id number] #### [facility] CLIA [id number] [address] [place] [address] [place] Cholesterol in LDL/Cholesterol in HDL [Mass ratio] 3.63 {ratio} High <2.54 [facility] Comment on above: Order Comment: Nima men Type: BLOOD SPECIMEN Ordering Facility: Dermatology [facility] Address: [address] [place] [address], [address], [place] [address] Result Comment: Radha alvarez: 1. National Cholesterol Education Program ATP III Guideline At-A-Glance Quick Desk Reference: National Heart, Lung, and Blood Melissa. National Institutes of Health. 2001: NIH Publication No. 01-3305. 2. An International Atherosclerosis Society position paper: global recommendations for the management of dyslipidemia: executive summary, Atherosclerosis. 2014: 232(2):410-413. Performed By: #### 2 4331-1 #### [facility] CLIA [id number] 9500 [facility] [address] [facility] CLIA [id number] [address] [place] [address] #### 2276-4, 09984-3 #### [facility] CLIA [id number] [address] [place], [place] [address] [address] [place] Cholesterol in VLDL [Mass/Vol] 25 mg/dL Normal <30 [facility] Comment on above: Order Comment: Speci men Type: BLOOD SPECIMEN Ordering Facility: Dermatology [facility] Address: [address] [place] [address], [address], [place] [id number] Performed By: #### 2 4331-1 #### [facility] CLIA [id number] [address] [facility] CLIA [id number] [address] [place] [address] #### 2276-4, 51091-0 #### [facility] CLIA [id number] [address] [place] [address] [place] Cholesterol non HDL [Mass/Vol] 141 mg/dL High <130 [facility] Comment on above: Order Comment: Speci men Type: BLOOD SPECIMEN Ordering Facility: Dermatology [facility] Address: [address] [place] [address], [address], [place] [id number] Result Comment: <130 mg/dL, Optimal 130-159 mg/dL, Near optimal/above optimal 160-189 mg/dL, Borderline high 190-219 mg/dL, High >219 mg/dL, Very high Secondary prevention optimal non HDL Cholesterol levels are recommended to be <100 mg/dL Performed By: #### 2 4331-1 #### [facility] CLIA [id number] [facility] [place] [address] [place] [facility] CLIA [id number] [address] [place] [address] #### 2276-4, 49449-4 #### [facility] CLIA [id number] [address] [place] [address] [place] Cholesterol.total/Cho lesterol in HDL [Mass ratio] 5.41 {ratio} High <5.10 [facility] Comment on above: Order Comment: Speci men Type: BLOOD SPECIMEN Ordering Facility: Dermatology [facility] Address: [address] [place] [address], [address], [place] [address] Performed By: #### 2 4331-1 #### [facility] CLIA [id number] [address] [place] [address] OF [facility] CLIA [id number] [address] [place] [address] #### 2276-4, 28259-7 #### [facility] CLIA [id number] [address] [place] [address] [place] FASTING TIME 12 hrs Normal [facility] Comment on above: Order Comment: Speci men Type: BLOOD SPECIMEN Ordering Facility: Dermatology [facility] Address: [address] [place] [address], [address], [place] [phone] Performed By: #### 2 4331-1 #### [facility] CLIA [id number] [address] [place] [address] [place] [facility] CLIA [id number] [address] [place] [address] #### 2276-4, 73649-2 #### [facility] CLIA [id number] [address] [place] [address] [place] Triglyceride [Mass/Vol] 126 mg/dL Normal <150 [facility] Comment on above: Order Comment: Speci men Type: BLOOD SPECIMEN Ordering Facility: Dermatology [facility] Address: [address] [place] [address], [address], [place] [address] Result Comment: <150 mg/dL, Normal 150-199 mg/dL, Borderline high 200-499 mg/dL, High >499 mg/dL, Very high Performed By: #### 2 4331-1 #### [facility] CLIA [id number] [address] [place] [address] [place] [facility] CLIA [id number] [address] [place] [address] #### 2276-4, 66212-2 #### [facility] CLIA [id number] [address] [place] [address] [place] Vit B12 [facility] 024 Cobalamin (Vitamin B12) [Mass/Vol] 738 pg/mL Normal 232-1245 [facility] Comment on above: Order Comment: Speci men Type: BLOOD SPECIMEN Ordering Facility: [facility] Address: [address] [place] [address] Performed By: #### 2 132-9, 2284-8 #### [facility] CLIA [id number] [address] [place] [address] [place] X[place] CHEST 2 [...] Rodríguez MD on 12/12/2023 2:25 PM Normal [facility] H PYLORI SCREENon 12-10-2023 H. pylori Org specific cx Ql (Roland fld) Negative Normal NEG [facility] Comment on above: Performed By: #### 4 4015-6 #### [facility] ([id number]) [address] [place] [address], [address] [place] [address] HCG ( test) Ql (U)o n 12-10-2023 Beta HCG ( test) Ql (U) Negative Normal NEG [facility] Comment on above: Performed By: #### P INR, 30915-4 #### [facility] ([id number]) [address] [place] [address], [place] [address] #### BMP #### [facility] ([id number]) [address] [place] [address], [address] [place] [address] Surgical Pathologyon 024 Surgical Pathology Normal [facility] Comment on above: Result Comment: [facility] [address] [place] [address] Surgical Pathology Consultation Patient Name:MARGARET PRIETO:1990 (Age: 33)Gender:FTaken:4Reported:12/18/2023hysician(s):Collins Mejia D.O. ([phone])Copy To: Rec. #:[id number]: #[id number] Final Pathologic Diagnosis 1. Antrum biopsy: Fragments of gastric mucosa with no significant histopathologic abnormality 2. Distal esophagus biopsy: Fragment of gastric cardia mucosa with reactive changes suggestive of mild chronic reflux-related changes Squamous mucosa, dysplasia or intestinal metaplasia is not identified Report Electronically Signed Out jossk/12/18/2023Halina Fraga MD Interpretation performed at [facility], [address] [place] [address], License number: [id number]. Clinical History Gastroesophageal reflux, nausea, vomiting. Gross Description 1. Received in formalin labeled, BRIANHART, antrum are 2 pale-herrera delicate soft tissue fragments, each 0.4 cm in greatest dimension. The specimens are filtered and submitted in a single cassette. (1, ns, [id number], m4) TB 2. Received in formalin labeled, MORHART, distal esophagus is a pale-herrera delicate soft tissue bit, 0.3 cm in greatest dimension. The specimen is filtered and submitted in a single cassette. (1, ns, [id number], m4) TB tgb/12/11/2023NSK Specimen(s) Received 1: Antrum biopsy 2: Distal esophagus biopsy Fee Codes(s): 1; 38247 2; 77559 Cytologyon 12-07-2023 Cytology Normal [facility] Comment on above: Result Comment: [facility] [address] [place] [address] Gynecologic Cytology Consultation Patient Name:MARGARET PRIETO:1990 (Age: 33)Gender:FTaken:4Reported:4Physician(s):Brandon Thacker C.N.P. ([phone])Copy To: Rec. #:[id number]: #[id number] Final Cytologic Interpretation ThinPrep Pap Test (Vaginal/Cervical): Satisfactory for evaluation. A transformazion zone component is not identified via imaging-assisted review, using Lingua.ly Thin Prep Imaging System, within 22 microscopic chan of view. NEGATIVE FOR INTRAEPITHELIAL LESION OR MALIGNANCY. [facility]/12/24/2023 [place]ation [place] [address], License number: [id number]. 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 ([employer] AND POWERPLANT MECH[employer]IC) Fee Code(s): G0145 HGB A1C (GLYCO-HGB)on 2023 Glucose [Mass/Vol] 123 mg/dL Normal [facility] Comment on above: Performed By: #### T SHR #### [facility] ([id number]) [address] [place] [address], [address] [place] [address] HbA1c (Bld) [Mass fraction] 5.9 % High 4.4-5.6 [facility] Comment on above: Result Comment: NOTE ADA Guidelines Result HgbA1c Normal : less than 5.7 % Prediabetes : 5.7 % to 6.4 % Diabetes : > 6.4 % Use with caution in patients with abnormal hemoglobin variants as the half-life of red blood cells and in vivo glycation rates are affected. Performed By: #### T SHR #### [facility] ([id number]) [address] [place] [address], [address] [address] HIGH RISK HPV W/GENOon 12-06 HPV 31+33+35+39+45+51+52+ 56+58+59+66+68 DNA EVARISTO+probe Ql (Cvx) HPV SPECIMEN TYPE ThinPrep HPV 16 Negative (qualifier value) HPV 18 Negative (qualifier value) OTHER HIGH RISK HPV Negative (qualifier value) HPV types 31,33,35,39,45,52,5 6,58,59,66 and 68 DNA were undetectable. Normal [facility] Comment on above: Performed By: #### 7 1431-1 #### [facility] ([id number]) [address] [place] [address], [place] [address] [facility] ([id number]) [address] [place] [address], [address] [place] [address] Hemoglobin A1con 12-07-2023 Average glucose Estimated from glycated hemoglobin (Bld) [Mass/Vol] 123 mg/dL [facility] HbA1c (Bld) [Mass fraction] 5.9 % High 4.4 - 5.6 % [facility] Comment on above: NOTE ADA Guidelines Result HgbA1c Normal : less than 5.7 % Prediabetes : 5.7 % to 6.4 % Diabetes : > 6.4 % Use with caution in patients with abnormal hemoglobin variants as the half-life of red blood cells and in vivo glycation rates are affected. Interpretation and review of laboratory results Abnormal [facility] TSH WITH REFLEXon 12-07-2023 TSH 3.01 uIU/mL Normal 0.49-4.67 [facility] Comment on above: Performed By: #### T SHR #### [facility] ([id number]) [address] [facility], [address] [place] [address] TSH with Reflexon 12-07-2023 TSH Qn 3.01 m[IU]/L [facility] FERRITIN BLDon 11-30-2023 Ferritin [Mass/Vol] 72.5 ng/mL 14.7 - 2 05.1 ng/mL [facility] FOLATE SERUMon 11-30-2023 Folate [Mass/Vol] 12.6 ng/mL >4.7 ng/mL [facility] Iron and Iron binding capaci ty panelon 11-30-2023 Iron [Mass/Vol] 34 ug/dL Low 41 - 186 ug/dL [facility] Iron binding capacity [Mass/Vol] 375 ug/dL 232 - 386 ug/dL [facility] Iron/TIBC [Molar ratio] 9.1 % Low 15.0 - 57.0 % [facility] VITAMIN B12 BLOODon 11-30-19 Cobalamin (Vitamin B12) [Mass/Vol] 740 pg/mL 232 - 1,245 pg/mL [facility] CBC W Auto Differential pane l (Bld)on 11-29-2023 Basophils (Bld) [#/Vol] 0.06 10*3/uL Normal <0.11 [facility] Comment on above: Order Comment: Speci men Type: BLOOD SPECIMEN Ordering Facility: [facility] Address: [address] [place] [address] Performed By: #### 2 276-4, 9, 66432-5, 2284-04 #### [facility] CLIA [id number] [address] [place] [address] [place] Basophils/100 WBC (Bld) 0.5 % Normal [facility] Comment on above: Order Comment: Speci men Type: BLOOD SPECIMEN Ordering Facility: [facility] Address: [address] [place] [address] Performed By: #### 2 276-4, 2132-05, 82253-7, 2284-04 #### [facility] CLIA [id number] [address] [place] [address] [place] Differential cell count method Nom (Bld) Auto Normal [facility] Comment on above: Order Comment: Speci men Type: BLOOD SPECIMEN Ordering Facility: [facility] Address: [address] [place] [address] Performed By: #### 2 276-4, 2132-05, 86593-9, 2284-04 #### [facility] CLIA [id number] [address] [place] [address] [place] Eosinophils (Bld) [#/Vol] 0.30 10*3/uL Normal <0.46 [facility] Comment on above: Order Comment: Speci men Type: BLOOD SPECIMEN Ordering Facility: [facility] Address: [address] [place] [address] Performed By: #### 2 276-4, 2132-05, 95372-9, 2284-04 #### [facility] CLIA [id number] [address] [place] [address] [place] Eosinophils/100 WBC (Bld) 2.4 % Normal [facility] Comment on above: Order Comment: Speci men Type: BLOOD SPECIMEN Ordering Facility: [facility] Address: [address] [place] [address] Performed By: #### 2 276-4, 9, 75507-1, 8 #### [facility] CLIA [id number] [address] [place] [address] [place] Erythrocyte distribution width (RBC) [Ratio] 14.7 % Normal 11.5-15.0 [facility] Comment on above: Order Comment: Speci men Type: BLOOD SPECIMEN Ordering Facility: [facility] Address: [address] [place] [address] Performed By: #### 2 276-4, 2131-9, 36017-0, 8 #### [facility] CLIA [id number] [address] [place] [address] [place] Hematocrit (Bld) [Volume fraction] 41.9 % Normal 36.0-46.0 [facility] Comment on above: Order Comment: Speci men Type: BLOOD SPECIMEN Ordering Facility: [facility] Address: [address] [place] [address] Performed By: #### 2 276-4, 9, 56398-5, 8 #### [facility] CLIA [id number] [address] [place] [address] [place] Hemoglobin (Bld) [Mass/Vol] 13.6 g/dL Normal 11.5-15.5 [facility] Comment on above: Order Comment: Speci men Type: BLOOD SPECIMEN Ordering Facility: [facility] Address: [address] [place] [address] Performed By: #### 2 276-4, 2131-9, 01004-2, 8 #### [facility] CLIA [id number] [address] [place] [address] [place] Immature granulocytes (Bld) [#/Vol] 0.05 10*3/uL Normal <0.10 [facility] Comment on above: Order Comment: Speci men Type: BLOOD SPECIMEN Ordering Facility: [facility] Address: [address] [place] [address] Performed By: #### 2 276-4, 2132-05, 64792-5, 2284-04 #### [facility] CLIA [id number] [address] [place] [address] [place] Immature granulocytes/100 WBC (Bld) 0.4 % Normal [facility] Comment on above: Order Comment: Speci men Type: BLOOD SPECIMEN Ordering Facility: [facility] Address: [address] [place] [address] Performed By: #### 2 276-4, 2132-05, 75922-2, 2284-04 #### [facility] CLIA [id number] [address] [place] [address] [place] Lymphocytes (Bld) [#/Vol] 1.86 10*3/uL Normal 1.00-4.00 [facility] Comment on above: Order Comment: Speci men Type: BLOOD SPECIMEN Ordering Facility: [facility] Address: [address] [place] [address] Performed By: #### 2 276-4, 2132-05, 76614-9, 2284-04 #### [facility] CLIA [id number] [address] [place] [address] [place] Lymphocytes/100 WBC (Bld) 15.1 % Normal [facility] Comment on above: Order Comment: Speci men Type: BLOOD SPECIMEN Ordering Facility: [facility] Address: [address] [place] [address] Performed By: #### 2 276-4, 9, 99342-9, 2284-04 #### [facility] CLIA [id number] [address] [place] [address] [place] MCH (RBC) [Entitic mass] 25.9 pg Low 26.0-34.0 [facility] Comment on above: Order Comment: Speci men Type: BLOOD SPECIMEN Ordering Facility: [facility] Address: [address] [place] [address] Performed By: #### 2 276-4, 9, 76192-8, 8 #### [facility] CLIA [id number] [address] [place] [address] [place] MCHC (RBC) [Mass/Vol] 32.5 g/dL Normal 30.5-36.0 [facility] Comment on above: Order Comment: Speci men Type: BLOOD SPECIMEN Ordering Facility: [facility] Address: [address] [place] [address] Performed By: #### 2 276-4, 9, 97108-2, 8 #### [facility] CLIA [id number] [address] [place] [address] [place] MCV (RBC) [Entitic vol] 79.8 fL Low 80.0-100.0 [facility] Comment on above: Order Comment: Speci men Type: BLOOD SPECIMEN Ordering Facility: [facility] Address: [address] [place] [address] Performed By: #### 2 276-4, 9, 61801-0, 8 #### [facility] CLIA [id number] [address] [place] [address] [place] Monocytes (Bld) [#/Vol] 0.74 10*3/uL Normal <0.87 [facility] Comment on above: Order Comment: Speci men Type: BLOOD SPECIMEN Ordering Facility: [facility] Address: [address] [place] [address] Performed By: #### 2 276-4, 2131-9, 36330-3, 2284-04 #### [facility] CLIA [id number] [address] [place] [address] [place] Monocytes/100 WBC (Bld) 6.0 % Normal [facility] Comment on above: Order Comment: Speci men Type: BLOOD SPECIMEN Ordering Facility: [facility] Address: [address] [place] [address] Performed By: #### 2 276-4, 9, 74399-4, 8 #### [facility] CLIA [id number] [address] [place] [address] [place] Neutrophils (Bld) [#/Vol] 9.33 10*3/uL High 1.45-7.50 [facility] Comment on above: Order Comment: Speci men Type: BLOOD SPECIMEN Ordering Facility: [facility] Address: [address] [place] [address] Performed By: #### 2 276-4, 9, 20257-8, 8 #### [facility] CLIA [id number] [address] [place] [address] [place] Neutrophils/100 WBC (Bld) 75.6 % Normal [facility] Comment on above: Order Comment: Speci men Type: BLOOD SPECIMEN Ordering Facility: [facility] Address: [address] [place] [address] Performed By: #### 2 276-4, 9, 68086-7, 8 #### [facility] CLIA [id number] [address] [place] [address] [place] Nucleated RBC (Bld) [#/Vol] 10*3/uL Normal <0.01 [facility] Comment on above: Order Comment: Speci men Type: BLOOD SPECIMEN Ordering Facility: [facility] Address: [address] [place] [address] Performed By: #### 2 276-4, 9, 40060-2, 8 #### [facility] CLIA [id number] [address] [place] [address] [place] Nucleated RBC/100 WBC (Bld) [Ratio] 0.0 /100 WBC Normal [facility] Comment on above: Order Comment: Speci men Type: BLOOD SPECIMEN Ordering Facility: [facility] Address: [address] [place] [address] Performed By: #### 2 276-4, 2131-9, 59862-9, 228-8 #### [facility] CLIA [id number] [address] [place] [address] [place] Platelet mean volume (Bld) [Entitic vol] 8.9 fL Low 9.0-12.7 [facility] Comment on above: Order Comment: Speci men Type: BLOOD SPECIMEN Ordering Facility: [facility] Address: [address] [place] [address] Performed By: #### 2 276-4, 2131-9, 02997-7, 2283-8 #### [facility] CLIA [id number] [address] [place] [address] [place] Platelets (Bld) [#/Vol] 387 10*3/uL Normal 150-400 [facility] Comment on above: Order Comment: Speci men Type: BLOOD SPECIMEN Ordering Facility: [facility] Address: [address] [place] [address] Performed By: #### 2 276-4, 2131-9, 64509-8, 2283-8 #### [facility] CLIA [id number] [address] [place] [address] [place] RBC (Bld) [#/Vol] 5.25 10*6/uL High 3.90-5.20 [facility] Comment on above: Order Comment: Speci men Type: BLOOD SPECIMEN Ordering Facility: [facility] Address: [address] [place] [address] Performed By: #### 2 276-4, 2131-9, 14417-6, 228-8 #### [facility] CLIA [id number] [address] [id number] [address] [place] WBC (Bld) [#/Vol] 12.34 10*3/uL High 3.70-11.00 [facility] Comment on above: Order Comment: Speci men Type: BLOOD SPECIMEN Ordering Facility: [facility] Address: [address] [place] [address] Performed By: #### 2 276-4, 2132-9, 30000-8, 2284-8 #### [facility] CLIA [id number] [address] [place], [place] [address] [place] [address] [place] Basophils (Bld) [#/Vol] 0.06 10*3/uL <0.11 k/uL [facility] Basophils/100 WBC (Bld) 0.5 % [facility] Differential cell count method Nom (Bld) Auto [facility] Eosinophils (Bld) [#/Vol] 0.30 10*3/uL <0.46 k/uL [facility] Eosinophils/100 WBC (Bld) 2.4 % [facility] Erythrocyte distribution width (RBC) [Ratio] 14.7 % 11.5 - 15.0 % [facility] Hematocrit (Bld) [Volume fraction] 41.9 % 36.0 - 46.0 % [facility] ic Hemoglobin (Bld) [Mass/Vol] 13.6 g/dL 11.5 - 15.5 g/dL [facility] Immature granulocytes (Bld) [#/Vol] 0.05 10*3/uL <0.10 k/uL [facility] Immature granulocytes/100 WBC (Bld) 0.4 % [facility] Lymphocytes (Bld) [#/Vol] 1.86 10*3/uL 1.00 - 4.00 k/uL [facility] Lymphocytes/100 WBC (Bld) 15.1 % [facility] MCH (RBC) [Entitic mass] 25.9 pg Low 26.0 - 34.0 pg [facility] MCHC (RBC) [Mass/Vol] 32.5 g/dL 30.5 - 36.0 g/dL [facility] MCV (RBC) [Entitic vol] 79.8 fL Low 80.0 - 100.0 fL [facility] Monocytes (Bld) [#/Vol] 0.74 10*3/uL <0.87 k/uL [facility] Monocytes/100 WBC (Bld) 6.0 % [facility] Neutrophils (Bld) [#/Vol] 9.33 10*3/uL High 1.45 - 7.50 k/uL [facility] Neutrophils/100 WBC (Bld) 75.6 % [facility] Nucleated RBC (Bld) [#/Vol] <0.01 k/uL [facility] Nucleated RBC/100 WBC (Bld) [Ratio] 0.0 /100 WBC [facility] Platelet mean volume (Bld) [Entitic vol] 8.9 fL Low 9.0 - 12.7 fL [facility] inic Platelets (Bld) [#/Vol] 387 10*3/uL 150 - 400 k/uL [facility] RBC (Bld) [#/Vol] 5.25 10*6/uL High 3.90 - 5.2 0 m/uL [facility] WBC (Bld) [#/Vol] 12.34 10*3/uL High 3.70 - 11 .00 k/uL [facility] CNOVSPon 11-29-2023 CNOVSP Visit (SP) Office ([place]) ---- MARGARET PRIETO ([id number]) 1990 F Date Time Provider Department 11/29/23 11:15 AM SHARIF JOSEPH During your visit today, we recorded the following information about you: Temperature Pulse Respiration Blood pressure 97.6 degrees 98/minute 16/minute 159/100 Weight Height 172.8 kg 1.651 m Sharif Joseph MD 12/05/2023 9:50 AM Signed NAME: Margaret Prieto CLINIC NO.: [id number] DATE OF SERVICE: November 29, 2023 ([facility]) Referring Provider: CHERRI Pelaez Consultation requested by CHERRI Pelaez for an opinion regarding Ms. Margaret Morhart, and my final recommendations will be communicated [...] including ECHO from 11/13/2022 and 11/23/2023 from [facility] which states -Echogenic density seen wihin the [...] Xray orde (more content not included)... Normal [facility] Comprehensive metabolic 2000 panelon 11-29-2023 Albumin [Mass/Vol] 3.8 g/dL Low 3.9-4.9 [facility] Comment on above: Order Comment: Speci men Type: BLOOD SPECIMEN Ordering Facility: [facility] Address: [address] [place] [address] Performed By: #### 2 276-4, 9, 84975-6, 8 #### [facility] CLIA [id number] [address] [place] [address] [place] ALP [Catalytic activity/Vol] 91 U/L Normal 34-123 [facility] Comment on above: Order Comment: Speci men Type: BLOOD SPECIMEN Ordering Facility: [facility] Address: [address] [place] [address] Performed By: #### 2 276-4, 9, 30533-6, 8 #### [facility] CLIA [id number] [address] [place] [address] [place] ALT [Catalytic activity/Vol] 22 U/L Normal 7-38 [facility] Comment on above: Order Comment: Speci men Type: BLOOD SPECIMEN Ordering Facility: [facility] Address: [address] [place] [address] Performed By: #### 2 276-4, 2131-9, 25687-7, 8 #### [facility] CLIA [id number] [address] [place] [address] [place] Anion gap [Moles/Vol] 11 mmol/L Normal 9-18 [facility] Comment on above: Order Comment: Speci men Type: BLOOD SPECIMEN Ordering Facility: [facility] Address: [address] [place] [address] Performed By: #### 2 276-4, 2131-9, 69907-8, 2283-8 #### [facility] CLIA [id number] [address] [place] [address] [place] AST [Catalytic activity/Vol] 17 U/L Normal 13-35 [facility] Comment on above: Order Comment: Speci men Type: BLOOD SPECIMEN Ordering Facility: [facility] Address: [address] [place] [address] Performed By: #### 2 276-4, 9, 25839-3, 8 #### [facility] CLIA [id number] [address] [place] [address] [place] Bilirubin [Mass/Vol] 0.3 mg/dL Normal 0.2-1.3 [facility] Comment on above: Order Comment: Speci men Type: BLOOD SPECIMEN Ordering Facility: [facility] Address: [address] [place] [address] Performed By: #### 2 276-4, 9, 96614-4, 8 #### [facility] CLIA [id number] [address] [place] [address] [place] Calcium [Mass/Vol] 9.4 mg/dL Normal 8.5-10.2 [facility] Comment on above: Order Comment: Speci men Type: BLOOD SPECIMEN Ordering Facility: [facility] Address: [address] [place] [address] Performed By: #### 2 276-4, 9, 08925-3, 8 #### [facility] CLIA [id number] [address] [place] [address] [place] Chloride [Moles/Vol] 105 mmol/L Normal 97-105 [facility] Comment on above: Order Comment: Speci men Type: BLOOD SPECIMEN Ordering Facility: [facility] Address: [address] [place] [address] Performed By: #### 2 276-4, 9, 58410-6, 8 #### [facility] CLIA [id number] [address] [place] [address] [place] CO2 [Moles/Vol] 24 mmol/L Normal 22-30 [facility] Comment on above: Order Comment: Nima macais Type: BLOOD SPECIMEN Ordering Facility: [facility] Address: [address] [place] [address] Performed By: #### 2 276-4, 9, 71275-9, 8 #### [facility] CLIA [id number] [address] [place] [address] [place] Creatinine [Mass/Vol] 0.83 mg/dL Normal 0.58-0.96 [facility] Comment on above: Order Comment: Husseini men Type: BLOOD SPECIMEN Ordering Facility: [facility] Address: [address] [place] [address] Performed By: #### 2 276-4, 9, 44260-2, 2284-04 #### [facility] CLIA [id number] [address] [place] [address] [place] Creatinine and Glomerular filtration rate.predicted panel (S/P/Bld) 95 mL/min/1.73m??? Normal >=60 [facility] Comment on above: Order Comment: Nima macias Type: BLOOD SPECIMEN Ordering Facility: [facility] Address: [address] [place] [address] Result Comment: Faye mated Glomerular Filtration Rate [...] GFR. Performed By: #### 2 276-4, 2131-9, 84426-5, 2284-04 #### [facility] CLIA [id number] [address] [place] [address] [place] Glucose [Mass/Vol] 117 mg/dL High 74-99 [facility] Comment on above: Order Comment: Nima macias Type: BLOOD SPECIMEN Ordering Facility: [facility] Address: [address] [place] [address] Result Comment: The Stateless Diabetes Association (ADA) provides guidance for cutoff [...] Standards of Medical Care in Diabetes 2016, Stateless Diabetes Association. Diabetes Care. 2016.39(Suppl 1). Performed By: #### 2 276-4, 9, 03113-2, 2284-04 #### [facility] CLIA [id number] [address] [place] [address] [place] Potassium [Moles/Vol] 4.4 mmol/L Normal 3.7-5.1 [facility] Comment on above: Order Comment: Speci men Type: BLOOD SPECIMEN Ordering Facility: [facility] Address: [address] [place] [address] Performed By: #### 2 276-4, 2132-05, 46984-6, 2284-04 #### [facility] CLIA [id number] [address] [place] [address] [place] Protein [Mass/Vol] 8.1 g/dL High 6.3-8.0 [facility] Comment on above: Order Comment: Speci men Type: BLOOD SPECIMEN Ordering Facility: [facility] Address: [address] [place] [address] Performed By: #### 2 276-4, 9, 15584-0, 2284-04 #### [facility] CLIA [id number] [address] [place] [address] [place] Sodium [Moles/Vol] 140 mmol/L Normal 136-144 [facility] Comment on above: Order Comment: Speci men Type: BLOOD SPECIMEN Ordering Facility: [facility] Address: [address] [place] [address] Performed By: #### 2 276-4, 2-9, 91862-0, 2284-8 #### [facility] CLIA [id number] [address] [place] [address] [place] Urea nitrogen [Mass/Vol] 10 mg/dL Normal 7-21 [facility] Comment on above: Order Comment: Speci men Type: BLOOD SPECIMEN Ordering Facility: [facility] Address: [address] [place] [address] Performed By: #### 2 276-4, 2131-9, 61008-3, 2284-8 #### [facility] CLIA [id number] [address] [place] [address] [place] Albumin [Mass/Vol] 3.8 g/dL Low 3.9 - 4.9 g/dL [facility] ALP [Catalytic activity/Vol] 91 U/L 34 - 123 U/L [facility] ALT [Catalytic activity/Vol] 22 U/L 7 - 38 U/L [facility] Anion gap [Moles/Vol] 11 mmol/L 9 - 18 mmol/L [facility] AST [Catalytic activity/Vol] 17 U/L 13 - 35 U/L [facility] Bilirubin [Mass/Vol] 0.3 mg/dL 0.2 - 1 .3 mg/dL [facility] Calcium [Mass/Vol] 9.4 mg/dL 8.5 - 10. 2 mg/dL [facility] Chloride [Moles/Vol] 105 mmol/L 97 - 10 5 mmol/L [facility] CO2 [Moles/Vol] 24 mmol/L 22 - 30 mmol/L [facility] Creatinine [Mass/Vol] 0.83 mg/dL 0.58 - 0.96 mg/dL [facility] Estimated Glomerular Filtration Rate 95 mL/min/1.73m >=60 mL/min/1.73m [facility] Glucose [Mass/Vol] 117 mg/dL High 74 - 99 mg/dL [facility] Potassium [Moles/Vol] 4.4 mmol/L 3.7 - 5.1 mmol/L [facility] Protein [Mass/Vol] 8.1 g/dL High 6.3 - 8.0 g/dL [facility] Sodium [Moles/Vol] 140 mmol/L 136 - 144 mmol/L [facility] Urea nitrogen [Mass/Vol] 10 mg/dL 7 - 21 mg/dL [facility] Ferritin SerPl-ncon 2023 Ferritin [Mass/Vol] 72.5 ng/mL Normal 14.7-205.1 [facility] Comment on above: Order Comment: Speci men Type: BLOOD SPECIMEN Ordering Facility: [facility] Address: [address] [place] [address] Performed By: #### 2 276-4, 2131-9, 88942-1, 2283-8 #### [facility] CLIA [id number] [address] [place] [address] [place] Folate [facility] Folate [Mass/Vol] 12.6 ng/mL Normal >4.7 [facility] Comment on above: Order Comment: Speci men Type: BLOOD SPECIMEN Ordering Facility: [facility] Address: [address] [place] [address] Performed By: #### 2 276-4, 2131-9, 65941-9, 2283-8 #### [facility] CLIA [id number] [address] [place] [address] [place] Iron and Iron binding capaci ty panelon 11-29-2023 Iron [Mass/Vol] 34 ug/dL Low 41-186 [facility] Comment on above: Order Comment: Speci men Type: BLOOD SPECIMEN Ordering Facility: [facility] Address: [address] [place] [address] Performed By: #### 2 276-4, 2131-9, 08479-7, 228-8 #### [facility] CLIA [id number] [address] [place], [place] [address] [place] Iron binding capacity [Mass/Vol] 375 ug/dL Normal 232-386 [facility] Comment on above: Order Comment: Nima macias Type: BLOOD SPECIMEN Ordering Facility: [facility] Address: [address] [place] [address] Performed By: #### 2 276-4, 2-9, 82316-0, 2283-8 #### [facility] CLIA [id number] [address] [place] [address] [place] Iron/TIBC [Molar ratio] 9.1 % Low 15.0-57.0 [facility] Comment on above: Order Comment: Nima macias Type: BLOOD SPECIMEN Ordering Facility: [facility] Address: [address] [place] [address] Performed By: #### 2 276-4, 2131-9, 36092-0, 2283-8 #### [facility] CLIA [id number] [address] [place] [address] [place] Vit B12 [facility] 024 Cobalamin (Vitamin B12) [Mass/Vol] 740 pg/mL Normal 232-1245 [facility] Comment on above: Order Comment: Nima macias Type: BLOOD SPECIMEN Ordering Facility: [facility] Address: [address] [place] [address] Performed By: #### 2 276-4, 2131-9, 22968-4, 2283-8 #### [facility] CLIA [id number] [address] [place] [address] [place] CTA CHESTon [...] Perry MD on 11/18/2023 10:30 AM Normal [facility] XR CHEST 2 VWSon 11-15-2023 XR [...] Rodríguez MD on 11/15/2023 9:26 AM Normal [facility] APTTon 11-09-2023 aPTT Coag (PPP) [Time] 30 s [facility] Comment on above: NEW REFERENCE RANGE BASIC METABOLIC PANLon 11-08 Anion gap [Moles/Vol] 9 mmol/L Normal 5-15 [facility] Comment on above: Performed By: #### P INR, 36811-0 #### [facility] ([id number]) [address], [place] [address] #### BMP #### [facility] ([id number]) [address] [place] [address], [address] [place] [address] Calcium [Mass/Vol] 8.8 mg/dL Normal 8.5-10.5 [facility] Comment on above: Performed By: #### P INR, 24988-0 #### [facility] ([id number]) [address] [place] [address] #### BMP #### [facility] ([id number]) [address], [address] [place] [address] Chloride [Moles/Vol] 103 mmol/L Normal 98-109 [facility] Comment on above: Performed By: #### P INR, 63244-9 #### [facility] ([id number]) [address] [place] [address] #### BMP #### [facility] ([id number]) [address] [address], [address] [place] [address] CO2 [Moles/Vol] 27 mmol/L Normal 22-32 [facility] Comment on above: Performed By: #### P INR, 74674-4 #### [facility] ([id number]) [address] [place] [address] #### BMP #### [facility] ([id number]) [address], [address] [place] [address] Creatinine [Mass/Vol] 0.70 mg/dL Normal 0.40-1.00 [facility] Comment on above: Result Comment: METH OD TRACEABLE TO IDMS STANDARD Performed By: #### P INR, 46193-2 #### [facility] ([id number]) [address] [place] [address] #### BMP #### [facility] ([id number]) [address], [address] [place] [address] eGFR (CKD-EPI) NON-RACE DEPENDENT >90 Normal >59 [facility] Comment on above: Result Comment: Reported eGFR is based on the CKD-EPI 2020 equation that does not use a race coefficient. Performed By: #### P INR, 49774-2 #### [facility] ([id number]) [address] [place] [address] #### BMP #### [facility] ([id number]) [address], [address] [place] [address] Glucose [Mass/Vol] 116 mg/dL High 65-99 [facility] Comment on above: Performed By: #### P INR, 08071-4 #### [facility] ([id number]) [address] [place] [address] #### BMP #### [facility] ([id number]) [address] [place] [address] Potassium [Moles/Vol] 3.9 mmol/L Normal 3.5-5.0 [facility] Comment on above: Performed By: #### P INR, 97350-9 #### [facility] ([id number]) [address] [place] [address] #### BMP #### [facility] ([id number]) [address], [address] [place] [address] Sodium [Moles/Vol] 139 mmol/L Normal 134-146 [facility] Comment on above: Performed By: #### P INR, 34407-6 #### [facility] ([id number]) [address] [place] [address] #### BMP #### [facility] ([id number]) [address], [address] [place] [address] Urea nitrogen [Mass/Vol] 13 mg/dL Normal 5-23 [facility] Comment on above: Performed By: #### P INR, 02050-5 #### [facility] ([id number]) [address] [place] [address] #### BMP #### [facility] ([id number]) [address] [place] [address] Basic Metabolic Panelon 03- Anion gap [Moles/Vol] 9 mmol/L 5 - 15 mmol/L [facility] Calcium [Mass/Vol] 8.8 mg/dL 8.5 - 10. 5 mg/dL [facility] Chloride [Moles/Vol] 103 mmol/L 98 - 10 9 mmol/L [facility] CO2 [Moles/Vol] 27 mmol/L 22 - 32 mmol/L [facility] Creatinine [Mass/Vol] 0.70 mg/dL 0.40 - 1.00 mg/dL [facility] Comment on above: METHOD TRACEABLE TO IDCA STANDARD eGFR (CKD-EPI)non-race dependent - PINF [facility] Comment on above: Reported eGFR is based on the CKD-EPI 2020 equation that does not use a race coefficient. Glucose [Mass/Vol] 116 mg/dL High 65 - 99 mg/dL [facility] Interpretation and review of laboratory results Abnormal [facility] Potassium [Moles/Vol] 3.9 mmol/L 3.5 - 5.0 mmol/L [facility] Sodium [Moles/Vol] 139 mmol/L 134 - 146 mmol/L [facility] Urea nitrogen [Mass/Vol] 13 mg/dL 5 - 23 mg/dL [facility] ECG 12 leadon 11-09-2023 TRACEMASTERVUE [facility] No Panel Informationon 11-08 [facility] PROTIME AND INRon 11-09-2023 INR Coag (PPP) [Relative time] 1.0 {INR} Normal 0.8-1.1 [facility] Comment on above: Performed By: #### P INR, 99597-1 #### [facility] ([id number]) [address] [place] [address], [place] [address] #### BMP #### [facility] ([id number]) [address], [address] [place] [address] PT Coag (PPP) [Time] 12.2 s Normal 9.8-13.2 [facility] Comment on above: Result Comment: NEW REFERENCE RANGE Performed By: #### P INR, 78906-1 #### [facility] ([id number]) [address] [place] [address] #### BMP #### [facility] ([id number]) [address], [address] [place] [address] Protime & INRon 11-09-2023 INR Coag (PPP) [Relative time] 1.0 {INR} [facility] PT Coag (PPP) [Time] 12.2 s [facility] Comment on above: NEW REFERENCE RANGE aPTT Coag (PPP) [Time]on aPTT Coag (Bld) [Time] 30 s Normal 26-37 [facility] Comment on above: Result Comment: NEW REFERENCE RANGE Performed By: #### P INR, 44451-1 #### [facility] ([id number]) [address] [place] [address] #### BMP #### [facility] ([id number]) [address], [address] [place] [address] C. difficile toxin genes EVARISTO +probe Ql (Stl)on 11-08-2023 [facility] Gastrointestinal pathogens D NA and RNA panel EVARISTO+non-probe (Stl)on 11-08-2023 Adenovirus 40+41 DNA EVARISTO+non-probe Ql (Stl) Not detected Not Detected^Not Detected [facility] Astrovirus subtypes 1-8 RNA EVARISTO+non-probe Ql (Stl) Not detected Not Detected^Not Detected [facility] C. cayetanensis DNA EVARISTO+non-probe Ql (Stl) Not detected Not Detected^Not Detected [facility] C. coli+jejuni+upsaliens is DNA EVARISTO+non-probe Ql (Stl) Not detected Not Detected^Not Detected [facility] Cryptosporidium sp DNA EVARISTO+non-probe Ql (Stl) Not detected Not Detected^Not Detected [facility] E. coli enteroaggregative Jeevan plasmid aggR+aatA genes EVARISTO+non-probe Ql (Stl) Not detected Not Detected^Not Detected [facility] E. coli enteropathogenic eae gene EVARISTO+non-probe Ql (Stl) Not detected Not Detected^Not Detected [facility] E. coli enterotoxigenic ltA+st1a+st1b genes EVARISTO+non-probe Ql (Stl) Not detected Not Detected^Not Detected [facility] E. coli stx1+stx2 genes EVARISTO+non-probe Ql (Stl) Not detected Not Detected^Not Detected [facility] E. histolytica DNA EVARISTO+non-probe Ql (Stl) Not detected Not Detected^Not Detected [facility] G. lamblia DNA EVARISTO+non-probe Ql (Stl) Not detected Not Detected^Not Detected [facility] Norovirus genogroup I+II RNA EVARISTO+non-probe Ql (Stl) Not detected Not Detected^Not Detected [facility] P. shigelloides DNA EVARISTO+non-probe Ql (Stl) Not detected Not Detected^Not Detected [facility] Rotavirus A RNA EVARISTO+non-probe Ql (Stl) Not detected Not Detected^Not Detected [facility] S. enterica+bongori DNA EVARISTO+non-probe Ql (Stl) Not detected Not Detected^Not Detected [facility] Sapovirus genogroups I+II+IV+V RNA EVARISTO+non-probe Ql (Stl) Not detected Not Detected^Not Detected [facility] Shigella species+EIEC invasion plasmid antigen H ipaH gene EVARISTO+non-probe Ql (Stl) Not detected Not Detected^Not Detected [facility] Specimen source Nom (Body fld) STOOL [facility] V. cholerae DNA EVARISTO+non-probe Ql (Stl) Not detected Not Detected^Not Detected [facility] V. cholerae+parahaemolyt icus+vulnificus DNA EVARISTO+non-probe Ql (Stl) Not detected Not Detected^Not Detected [facility] Y. enterocolitica DNA EVARISTO+non-probe Ql (Stl) Not detected Not Detected^Not Detected [facility] - Microbiology an d Antimicrobial susceptibilityon 11-08-2023 C. difficile toxin genes EVARISTO+probe Ql (Stl) Negative Presumptive Negative^Pres umptive Negative [facility] C DIFFICILE BY PCRon 024 C. difficile toxin genes EVARISTO+probe Ql (Stl) TOXIGENIC C DIFF Negative (qualifier value) 027 NAP1 Negative (qualifier value) Normal PRNEG [facility] Comment on above: Performed By: #### 5 4067-4, 99425-5, 06303-0 #### [facility] ([id number]) [address] [place] [address], [address] [place] [address] Calprotectin (Stl) [Mass/Mas s]on 11-07-2023 CALPROTECTIN STOOL See Below Normal [facility] Comment on above: Result Comment: NOTE TEST RESULT FLAG UNIT REF.RANGE ------ CALPROTECTIN, FECAL QUANTITATIVE 11.9 ug/g <50 CALPROTECTIN, FECAL INTERP Normal Normal On January 23, 2023, [facility] implemented a new fecal calprotectin method, the [employer] Calprotectin assay. For assistance with interpretation of results in patients undergoing serial monitoring, contact Client Services at [phone] or [phone] to discuss options, preferably within 7 days of issuing this report. Interpretation: <50.0 ug/g: Normal 50.0 ug/g - 120.0 ug/g: Borderline elevated. Re-evaluation in 4-6 weeks is recommended if clinically indicated. >120.0 ug/g: Elevated Test Performed By: [facility] [address] [place] [address] Saloon Keeper: Britney Herrera III #[id number] Performed By: #### 5 4067-4, 49398-4, 41323-4 #### [facility] ([id number]) [address] [place] [address], [address] [place] [address] GI PANELon 11-07-2023 Gastrointestinal pathogens DNA and [...] SAPOVIRUS Not detected (qualifier value) Normal NDET [facility] Comment on above: Performed By: #### 5 4067-4, 19525-4, 26723-8 #### [facility] ([id number]) [address] [place] [address], [address] [place] [address] POCT Glucose Fingerstickon 0 10-08-2023 Glucose [Mass/Vol] 119 mg/dL Abnormal 65 - 99 mg/dL [facility] Interpretation and review of laboratory results Abnormal [facility] CBC AUTO DIFFon 11-22-2022 BASO # 0.0 103/ul Normal 0.0-0.1 [facility] Comment on above: Performed By: #### H H #### [facility] [address] [address] Dr. Ron Sims Basophils/100 WBC (Bld) 0.3 % Normal 0.2-2.0 [facility] Comment on above: Performed By: #### H H #### [facility] [address] [address] [address] Ron Sims EO # 0.1 103/ul Normal 0.0-0.7 [facility] Comment on above: Performed By: #### H H #### [facility] [address] [address] [address] Ron Sims Eosinophils/100 WBC (Bld) 0.8 % Critically low 0.9-7.0 [facility] Comment on above: Performed By: #### H H #### [facility] [address] [address] [address] Ron Sims Erythrocyte distribution width (RBC) [Ratio] 13.5 % Normal 11.0-15.0 [facility] Comment on above: Performed By: #### H H #### [facility] [address] [address] [address] Ron Sims Hematocrit (Bld) [Volume fraction] 42.3 % Normal 36.0-48.0 [facility] Comment on above: Performed By: #### H H #### [facility] [address] [place] [address] Dr. Ron Sims Hemoglobin (Bld) [Mass/Vol] 13.9 g/dL Normal 12.0-16.0 [facility] Comment on above: Performed By: #### H H #### [facility] [address] [address] [address] Ron Sims IG # 0.08 10e3/ul Critically high 0.00-0.03 [facility] Comment on above: Performed By: #### H H #### [facility] [address] [address] [address] Ron Sims IG % 0.9 % Critically high 0.0-0.5 [facility] Comment on above: Performed By: #### H H #### [facility] [address] [address] [address] Ron Sims LYMPH # 0.8 103/ul Critically low 1.2-3.8 [facility] Comment on above: Performed By: #### H H #### [facility] [address] [place] [address] Dr. Ron Sims Lymphocytes/100 WBC (Bld) 9.4 % Critically low 20.5-60.0 [facility] Comment on above: Performed By: #### H H #### [facility] [address] [address] [address] Ron Sims MANUAL DIFF REQ NO Normal [facility] Comment on above: Performed By: #### H H #### [facility] [address] [address] [address] Ron Sims MCH (RBC) [Entitic mass] 26.8 pg Normal 26.7-34.0 [facility] Comment on above: Performed By: #### H H #### [facility] [address] [place] [address] Dr. Ron Sims MCHC (RBC) [Mass/Vol] 32.9 g/dL Normal 29.9-35.2 [facility] Comment on above: Performed By: #### H H #### [facility] [address] [place] [address] Dr. Ron Sims MCV (RBC) [Entitic vol] 81.7 fL Normal 81.0-99.0 [facility] Comment on above: Performed By: #### H H #### [facility] [address] [place] [address] Dr. Ron Sims MONO # 0.6 103/ul Normal 0.3-0.8 [facility] Comment on above: Performed By: #### H H #### [facility] [address] [place] [address] Dr. Ron Sims Monocytes/100 WBC (Bld) 6.3 % Normal 1.7-12.0 [facility] Comment on above: Performed By: #### H H #### [facility] [address] [place] [address] Dr. Ron Sims NEUT # 7.2 103/ul Critically high 1.4-6.5 [facility] Comment on above: Performed By: #### H H #### [facility] [address] [place] [address] Dr. Ron Sims Neutrophils/100 WBC (Bld) 82.3 % Critically high 43.0-75.0 [facility] Comment on above: Performed By: #### H H #### [facility] [address] [address] [address] Ron Sims Platelet mean volume (Bld) [Entitic vol] 8.6 fL Critically low 9.5-13.5 [facility] Comment on above: Performed By: #### H H #### [facility] [address] [address] [address] Ron Sims PLT 323 103/ul Normal 150-450 [facility] Comment on above: Performed By: #### H H #### [facility] [address] [address] [address] Ron Sims RBC 5.18 106/ul Normal 4.20-5.40 [facility] Comment on above: Performed By: #### H H #### [facility] [address] [address] [address] Ron Sims WBC 8.8 103/ul Normal 4.0-11.0 [facility] Comment on above: Performed By: #### H H #### [facility] [address] [address] [address] Ron Sims CULTURE BLOODon 11-22-2022 Microscopic examination of blood, culture Culture Observations: NO GROWTH AT 5 DAYS. Normal [facility] Comment on above: Performed By: #### H IV12 #### [facility] [address] [address] [address] Ron Sims ECHO LIMITED STUDYon 023 ECHO LIMITED STUDY Patient: MARGARET PRIETO Exam Date: 11/22/2022 : 1990 Gender:F Ordering : DR NATHAN MAYFIELD D.O. Admission #: [id number] Family : Order #: [id number] CLICK HERE TO VIEW EXAM ECHOCARDIOGRAM REPORT [...] M.D. on 11/22/2022 at 14:54 Normal [facility] LACTATE/LACTIC ACIDon 2022 Lactate [Moles/Vol] 1.5 mmol/L Normal 0.4-2.0 [facility] Comment on above: Performed By: #### L ACT #### [facility] [address] [place] [address] Dr. Ron Sims Lactate [Moles/Vol] 2.6 mmol/L Critically high 0.4-2.0 [facility] Comment on above: Performed By: #### L ACT #### [facility] [address] [place] [address] Dr. Ron Sims PROF CHEM 8 (BAS METB)on Anion gap [Moles/Vol] 16.8 mmol/L Normal [facility] Comment on above: Performed By: #### H H #### [facility] [address] [place] [address] Dr. Ron Sims Calcium [Mass/Vol] 8.9 mg/dL Normal 8.5-10.1 [facility] Comment on above: Performed By: #### H H #### [facility] [address] [place] [address] Dr. Ron Sims Chloride [Moles/Vol] 94 mmol/L Critically low 98-107 [facility] Comment on above: Performed By: #### H H #### [facility] [address] [place] [address] Dr. Ron Sims CO2 [Moles/Vol] 25.3 mmol/L Normal 21.0-32.0 [facility] Comment on above: Performed By: #### H H #### [facility] [address] [place] [address] Dr. Ron Sims Creatinine [Mass/Vol] 0.88 mg/dL Normal 0.55-1.02 [facility] Comment on above: Performed By: #### H H #### [facility] [address] [place] [address] Dr. Ron Sims EGFR-AF ARGENTINE >60 Normal >=60 [facility] Comment on above: Performed By: #### H H #### [facility] [address] [place] [address] Dr. Ron Sims EGFR-NON AF ARGENTINE >60 Normal >=60 [facility] Comment on above: Performed By: #### H H #### [facility] [address] [place] [address] Dr. Ron Sims Glucose [Mass/Vol] 112 mg/dL Critically high 74-106 [facility] Comment on above: Performed By: #### H H #### [facility] [address] [place] [address] Dr. Ron Sims Potassium [Moles/Vol] 3.1 mmol/L Critically low 3.5-5.1 [facility] Comment on above: Performed By: #### H H #### [facility] [address] [place] [address] Dr. Ron Sims Sodium [Moles/Vol] 133 mmol/L Critically low 136-145 [facility] Comment on above: Performed By: #### H H #### [facility] [address] [place] [address] Dr. Ron Sims Urea nitrogen [Mass/Vol] 12.0 mg/dL Normal 7.0-18.0 [facility] Comment on above: Performed By: #### H H #### [facility] [address] [place] [address] Dr. Ron Sims Urea nitrogen/Creatinine [Mass ratio] 13.6 mg/mg Normal [facility] Comment on above: Performed By: #### H H #### [facility] [address] [place] [address] Dr. Ron Sims PROTIMEon 11-22-2022 INR Coag (PPP) [Relative time] 2.20 {INR} Normal [facility] Comment on above: Performed By: #### P T, PTT #### [facility] [address] [place] [address] Dr. Ron Sims INR GUIDELINES SEE BELOW Normal [facility] Comment on above: Result Comment: MICHELINE RED INR: 2.0 - 3.0 CONDITIONS NOT LISTED BELOW 2.5 - 3.5 FOR PROSTHETIC HEART VALVE REPLACEMENT 2.5 - 3.5 RECURRENT THROMBOSIS Performed By: #### P T, PTT #### [facility] [address] [place] [address] Dr. Ron Sims PT Coag (PPP) [Time] 22.3 s Critically high 9.0-11.6 [facility] Comment on above: Performed By: #### P T, PTT #### [facility] [address] [address] [address] Ron Sims PTTon 11-22-2022 aPTT Coag (Bld) [Time] 48.2 s Critically high 22.3-36.2 [facility] Comment on above: Performed By: #### P T, PTT #### [facility] [address] [address] [address] Ron Sims XR CHEST 1 Von [...] SANIA TIDWELL Date: 2022-11-22 12:16 Normal [facility] POLINA EIA W/REFLEX 9 BIOMARKER Son 10-24-2022 POLINA Direct Negative Normal Negative [facility] Comment on above: Performed By: #### H IV12 #### [facility] [address] [address] [address] Ron Sims HEPATITIS C AB CASCADE TO QU ANT PCR GENOon 10-24-2022 HCV AB Non-Reactive Normal Non Reactive [facility] Comment on above: Performed By: #### H EPCASC #### [facility] [address] [address] [address] Ron Sims Interpretation: Comment Normal [facility] Comment on above: Result Comment: Not infected with HCV unless early or acute infection is suspected (which may be delayed in an immunocompromised individual), or other evidence exists to indicate HCV infection. Performed By: #### H EPCASC #### [facility] [address] [address] [address] Ron Sims HIV 1 AND 2 WITH REFLEXon HIV Screen 4th Generation wRfx Non-Reactive Normal Non Reactive [facility] Comment on above: Result Comment: HIV Negative HIV-1/HIV-2 antibodies and HIV-1 p24 antigen were NOT detected. There is no laboratory evidence of HIV infection. Performed By: #### H IV12 #### [facility] [address] [place] [address] Dr. Ron Sims CPKon 10-23-2022 CK [Catalytic activity/Vol] 36 U/L Normal 26-192 [facility] Comment on above: Performed By: #### H H #### [facility] [address] [place] [address] Dr. Ron Sims GLYCOHEMOGLOBIN A1Con 2022 ADA RECOMMENDATION SEE BELOW Normal [facility] Comment on above: Result Comment: ADA RECOMMENDED LIMIT 4.0 - 6.0 ADA THERAPEUTIC TARGET < 7.0 ACTION SUGGESTED > 7.0 Performed By: #### A 1C #### [facility] [address] [place] [address] Dr. Ron Sims Glucose [Mass/Vol] 111 mg/dL Normal [facility] Comment on above: Performed By: #### A 1C #### [facility] [address] [place] [address] Dr. Ron Sims HbA1c (Bld) [Mass fraction] 5.5 % Normal 4.5-6.2 [facility] Comment on above: Performed By: #### A 1C #### [facility] [address] [place] [address] Dr. Ron Sims HEMOGRAM AND PLATELon 2022 Hematocrit (Bld) [Volume fraction] 38.4 % Normal 36.0-48.0 [facility] Comment on above: Performed By: #### H H #### [facility] [address] [place] [address] Dr. Ron Sims Hemoglobin (Bld) [Mass/Vol] 12.6 g/dL Normal 12.0-16.0 [facility] Comment on above: Performed By: #### H H #### [facility] [address] [place] [address] Dr. Ron Sims MCH (RBC) [Entitic mass] 27.0 pg Normal 26.7-34.0 [facility] Comment on above: Performed By: #### H H #### [facility] [address] [place] [address] Dr. Ron Sims MCHC (RBC) [Mass/Vol] 32.8 g/dL Normal 29.9-35.2 [facility] Comment on above: Performed By: #### H H #### [facility] [address] [place] [address] Dr. Ron Sims MCV (RBC) [Entitic vol] 82.2 fL Normal 81.0-99.0 [facility] Comment on above: Performed By: #### H H #### [facility] [address] [place] [address] Dr. Ron Sims PLT 337 103/ul Normal 150-450 [facility] Comment on above: Performed By: #### H H #### [facility] [address] [place] [address] Dr. Ron Sims RBC 4.67 106/ul Normal 4.20-5.40 [facility] Comment on above: Performed By: #### H H #### [facility] [address] [place] [address] Dr. Ron Sims WBC 9.7 103/ul Normal 4.0-11.0 [facility] Comment on above: Performed By: #### H H #### [facility] [address] [place] [address] Dr. Ron Sims MYOGLOBINon 10-23-2022 NOEMI 51 ng/mL Normal 9-82 [facility] Comment on above: Performed By: #### H H #### [facility] [address] [place] [address] Dr. Ron Sims PROF 14(COMP METB)on 023 Albumin [Mass/Vol] 3.1 g/dL Critically low 3.4-5.0 [facility] Comment on above: Performed By: #### P T, PTT #### [facility] [address] [place] [address] Dr. Ron Sims Albumin/Globulin [Mass ratio] 0.7 {ratio} Normal [facility] Comment on above: Performed By: #### P T, PTT #### [facility] [address] [place] [address] Dr. Ron Sims ALP [Catalytic activity/Vol] 79 U/L Normal 46-116 [facility] Comment on above: Performed By: #### P T, PTT #### [facility] [address] [place] [address] Dr. Ron Sims ALT [Catalytic activity/Vol] 28 U/L Normal 14-59 [facility] Comment on above: Performed By: #### P T, PTT #### [facility] [address] [place] [address] Dr. Ron Sims Anion gap [Moles/Vol] 12.2 mmol/L Normal [facility] Comment on above: Performed By: #### P T, PTT #### [facility] [address] [place] [address] Dr. Ron Sims AST [Catalytic activity/Vol] 17 U/L Normal 15-37 [facility] Comment on above: Performed By: #### P T, PTT #### [facility] [address] [place] [address] Dr. Ron Sims Bilirubin [Mass/Vol] 0.4 mg/dL Normal 0.2-1.0 [facility] Comment on above: Performed By: #### P T, PTT #### [facility] [address] [place] [address] Dr. Ron Sims Calcium [Mass/Vol] 9.0 mg/dL Normal 8.5-10.1 [facility] Comment on above: Performed By: #### P T, PTT #### [facility] [address] [place] [address] Dr. Ron Sims Chloride [Moles/Vol] 101 mmol/L Normal 98-107 [facility] Comment on above: Performed By: #### P T, PTT #### [facility] [address] [place] [address] Dr. Ron Sims CO2 [Moles/Vol] 28.5 mmol/L Normal 21.0-32.0 [facility] Comment on above: Performed By: #### P T, PTT #### [facility] [address] [place] [address] Dr. Ron Sims Creatinine [Mass/Vol] 0.88 mg/dL Normal 0.55-1.02 [facility] Comment on above: Performed By: #### P T, PTT #### [facility] [address] [place] [address] Dr. Ron Sims EGFR-AF ARGENTINE >60 Normal >=60 [facility] Comment on above: Performed By: #### P T, PTT #### [facility] [address] [place] [address] Dr. Ron Sims EGFR-NON AF ARGENTINE >60 Normal >=60 [facility] Comment on above: Performed By: #### P T, PTT #### [facility] [address] [place] [address] Dr. Ron Sims Globulin (S) [Mass/Vol] 4.6 g/dL Normal [facility] Comment on above: Performed By: #### P T, PTT #### [facility] [address] [place] [address] Dr. Ron Sims Glucose [Mass/Vol] 96 mg/dL Normal 74-106 [facility] Comment on above: Performed By: #### P T, PTT #### [facility] [address] [place] [address] Dr. Ron Sims Potassium [Moles/Vol] 3.7 mmol/L Normal 3.5-5.1 [facility] Comment on above: Performed By: #### P T, PTT #### [facility] [address] [place] [address] Dr. Ron Sims Protein [Mass/Vol] 7.7 g/dL Normal 6.4-8.2 [facility] Comment on above: Performed By: #### P T, PTT #### [facility] [address] [place] [address] Dr. Ron Sims Sodium [Moles/Vol] 138 mmol/L Normal 136-145 [facility] Comment on above: Performed By: #### P T, PTT #### [facility] [address] [place] [address] Dr. Ron Sims Urea nitrogen [Mass/Vol] 12.0 mg/dL Normal 7.0-18.0 [facility] Comment on above: Performed By: #### P T, PTT #### [facility] [address] [place] [address] Dr. Ron Sims Urea nitrogen/Creatinine [Mass ratio] 13.6 mg/mg Normal [facility] Comment on above: Performed By: #### P T, PTT #### [facility] [address] [place] [address] Dr. Ron Sims TSHon 10-23-2022 TSH 2.891 uIU/mL Normal 0.358-3.740 [facility] Comment on above: Performed By: #### P T, PTT #### [facility] [address] [place] [address] Dr. Ron Sims VITAMIN B12on 10-23-2022 Cobalamin (Vitamin B12) [Mass/Vol] 618.0 pg/mL Normal 193.0-986.0 [facility] Comment on above: Performed By: #### H H #### [facility] [address] [place] [address] Dr. Ron Sims VITAMIN D 25 OHon 10-23-2022 VIT D 25-OH 18.0 ng/mL Normal [facility] Comment on above: Performed By: #### H H #### [facility] [address] [place] [address] Dr. Ron Sims VIT D RANGES SEE BELOW Normal [facility] Comment on above: Result Comment: <20 ng/mL Vit D deficient 20 - <30 ng/mL Vit D insufficient 30 - 100 ng/mL Vit D sufficient >100 ng/mL Potential Toxicity Performed By: #### H H #### [facility] [address] [place] [address] Dr. Ron Sims CBC AUTO DIFFon 09-26-2022 BASO # 0.0 103/ul Normal 0.0-0.1 [facility] Comment on above: Performed By: #### H H #### [facility] [address] [place] [address] Dr. Ron Sims Basophils/100 WBC (Bld) 0.5 % Normal 0.2-2.0 [facility] Comment on above: Performed By: #### H H #### [facility] [address] [place] [address] Dr. Ron Sims EO # 0.1 103/ul Normal 0.0-0.7 [facility] Comment on above: Performed By: #### H H #### [facility] [address] [place] [address] Dr. Ron Sims Eosinophils/100 WBC (Bld) 1.5 % Normal 0.9-7.0 [facility] Comment on above: Performed By: #### H H #### [facility] [address] [place] [address] Dr. Ron Sims Erythrocyte distribution width (RBC) [Ratio] 13.3 % Normal 11.0-15.0 [facility] Comment on above: Performed By: #### H H #### [facility] [address] [place] [address] Dr. Ron Sims Hematocrit (Bld) [Volume fraction] 41.3 % Normal 36.0-48.0 [facility] Comment on above: Performed By: #### H H #### [facility] [address] [place] [address] Dr. Ron Sims Hemoglobin (Bld) [Mass/Vol] 13.6 g/dL Normal 12.0-16.0 [facility] Comment on above: Performed By: #### H H #### [facility] [address] [place] [address] Dr. Ron Sims IG # 0.03 10e3/ul Normal 0.00-0.03 [facility] Comment on above: Performed By: #### H H #### [facility] [address] [place] [address] Dr. Ron Sims IG % 0.3 % Normal 0.0-0.5 [facility] Comment on above: Performed By: #### H H #### [facility] [address] [place] [address] Dr. Ron Sims LYMPH # 1.5 103/ul Normal 1.2-3.8 [facility] Comment on above: Performed By: #### H H #### [facility] [address] [place] [address] Dr. Ron Sims Lymphocytes/100 WBC (Bld) 16.9 % Critically low 20.5-60.0 [facility] Comment on above: Performed By: #### H H #### [facility] [address] [place] [address] Dr. Ron Sims MANUAL DIFF REQ NO Normal [facility] Comment on above: Performed By: #### H H #### [facility] [address] [place] [address] Dr. Ron Sims MCH (RBC) [Entitic mass] 27.7 pg Normal 26.7-34.0 [facility] Comment on above: Performed By: #### H H #### [facility] [address] [place] [address] Dr. Ron Sims MCHC (RBC) [Mass/Vol] 32.9 g/dL Normal 29.9-35.2 [facility] Comment on above: Performed By: #### H H #### [facility] [address] [place] [address] Dr. Ron Sims MCV (RBC) [Entitic vol] 84.1 fL Normal 81.0-99.0 [facility] Comment on above: Performed By: #### H H #### [facility] [address] [place] [address] Dr. Ron Sims MONO # 0.5 103/ul Normal 0.3-0.8 [facility] Comment on above: Performed By: #### H H #### [facility] [address] [place] [address] Dr. Ron Sims Monocytes/100 WBC (Bld) 5.4 % Normal 1.7-12.0 [facility] Comment on above: Performed By: #### H H #### [facility] [address] [place] [address] Dr. Ron Sims NEUT # 6.5 103/ul Normal 1.4-6.5 [facility] Comment on above: Performed By: #### H H #### [facility] [address] [place] [address] Dr. Ron Sims Neutrophils/100 WBC (Bld) 75.4 % Critically high 43.0-75.0 [facility] Comment on above: Performed By: #### H H #### [facility] [address] [place] [address] Dr. Ron Sims Platelet mean volume (Bld) [Entitic vol] 9.0 fL Critically low 9.5-13.5 [facility] Comment on above: Performed By: #### H H #### [facility] [address] [place] [address] Dr. Ron Sims PLT 261 103/ul Normal 150-450 [facility] Comment on above: Performed By: #### H H #### [facility] [address] [place] [address] Dr. Ron Sims RBC 4.91 106/ul Normal 4.20-5.40 [facility] Comment on above: Performed By: #### H H #### [facility] [address] [place] [address] Dr. Ron Sims WBC 8.7 103/ul Normal 4.0-11.0 [facility] Comment on above: Performed By: #### H H #### [facility] [address] [place] [address] Dr. Ron Sims CRPon 09-26-2022 CRP 0.4 mg/dL Normal <=1.0 [facility] Comment on above: Performed By: #### P T, PTT #### [facility] [address] [place] [address] HEAD WO CONon [...] by: DEREK MIRELES Date: 2022-09-26 20:09 Normal [facility] CTA HEAD WO W CONon 09-26-19 [...] by: DEREK MIRELES Date: 2022-09-26 21:26 Normal [facility] PROF CHEM 8 (BAS METB)on Anion gap [Moles/Vol] 11.2 mmol/L Normal [facility] Comment on above: Performed By: #### P T, PTT #### [facility] [address] [address] [address] Ron Sims Calcium [Mass/Vol] 9.1 mg/dL Normal 8.5-10.1 [facility] Comment on above: Performed By: #### P T, PTT #### [facility] [address] [address] [address] Ron Sims Chloride [Moles/Vol] 101 mmol/L Normal 98-107 [facility] Comment on above: Performed By: #### P T, PTT #### [facility] [address] [address] [address] Ron Sims CO2 [Moles/Vol] 28.0 mmol/L Normal 21.0-32.0 [facility] Comment on above: Performed By: #### P T, PTT #### [facility] [address] [place] [address] Dr. Ron Sims Creatinine [Mass/Vol] 0.85 mg/dL Normal 0.55-1.02 [facility] Comment on above: Performed By: #### P T, PTT #### [facility] [address] [address] [address] Ron Sims EGFR-AF ARGENTINE >60 Normal >=60 [facility] Comment on above: Performed By: #### P T, PTT #### [facility] [address] [address] [address] Ron Sims EGFR-NON AF ARGENTINE >60 Normal >=60 [facility] Comment on above: Performed By: #### P T, PTT #### [facility] [address] [address] [address] Ron Sims Glucose [Mass/Vol] 106 mg/dL Normal 74-106 [facility] Comment on above: Performed By: #### P T, PTT #### [facility] [address] [address] [address] Ron Sims Potassium [Moles/Vol] 4.2 mmol/L Normal 3.5-5.1 [facility] Comment on above: Performed By: #### P T, PTT #### [facility] [address] [address] [address] Ron Sims Sodium [Moles/Vol] 136 mmol/L Normal 136-145 [facility] Comment on above: Performed By: #### P T, PTT #### [facility] [address] [address] [address] Ron Sims Urea nitrogen [Mass/Vol] 15.0 mg/dL Normal 7.0-18.0 [facility] Comment on above: Performed By: #### P T, PTT #### [facility] [address] [address] [address] Ron Sims Urea nitrogen/Creatinine [Mass ratio] 17.6 mg/mg Normal [facility] Comment on above: Performed By: #### P T, PTT #### [facility] [address] [address] [address] [facility] mm/hr Critically high <=20 [facility] Comment on above: Performed By: #### S EDR #### [facility] [address] [address] [address] Ron Sims PREG HCG QUALon 09-05-2022 , QUAL Negative Normal NEGATIVE [facility] Comment on above: Performed By: #### P REG #### [facility] [address] [address] [address] Ron Sims ABO and Rh group post transf usion reaction Nom (Bld)Ordered By: John Carlson on 04-11-2022 Microscopic observation Gram stain Nom (Unsp spec) [facility] Aerobic Cultureon 04-10-2022 Aerobic Culture Result Tab Codes Rare Normal Skin Keerthi 2 Days Anaerobic Culture Results No Anaerobes Isolated 3 Days Gram Stain Result No Bacteria Seen PERFORMED BY: [place] [address] PATHOLOGIST [employer] JACQUIE CRABTREE M.D. Normal [facility] Comment on above: Performed By: #### A ERC #### [address] HCG ( test) IA.rapi d Ql (U)Ordered By: Katya Vasques on 04-10-2022 HCG ( test) Ql (U) Negative [facility] HCG,Qualitative Serumon HCG,Qualitative Serum Negative Normal [facility] Comment on above: Result Comment: PERF ORMED BY: [place] [address] PATHOLOGIST [employer] JACQUIE CRABTREE M.D. Performed By: #### U HCG #### [facility] [address] [place], [place] [id number] [facility] COVID-19 FRMCon 04-06-2022 SARS-CoV-2 (COVID-19) RNA EVARISTO+probe Ql (Unsp spec) Negative Normal Negative [facility] Comment on above: Order Comment: Healt hcare Worker?: N Result Comment: Testing for SARS-CoV-2 by RT-PCR This test was developed and its performance characteristics determined by [employer] ([employer]) and validated at the [facility]. This test has not been FDA [...] is terminated or revoked sooner. PERFORMED BY: [place] [address] PATHOLOGIST [employer]EM[employer] JACQUIE CRABTREE M.D. Performed By: #### U HCG #### [address] [address] [facility] COVID-19 Positive/NegativeOr dered By: John Carlson on 04-06-2022 SARS-CoV-2 (COVID-19) N gene EVARISTO+probe Ql (Resp) Negative Negative [facility] Comment on above: Testing for SARS-CoV -2 by RT-PCR This test was developed and its performance characteristics determined by [employer] ([employer]) and validated at the [facility]. This test has not been FDA [...] on 03-30-2022 Albumin [Mass/Vol] 3.1 g/dL 3.2-5.5 [facility] Basophils Auto (Bld) [#/Vol] Ordered By: Dominique Garrison on 03-30-2022 Basophils (Bld) [#/Vol] 0.1 10*3/uL 0.0-0.2 [facility] Basophils/100 WBC Auto (Bld) Ordered By: Dominique Garrison on 03-30-2022 Basophils/100 WBC (Bld) 0.6 % . [facility] Blood hemoglobin measurement (mass/volume)Ordered By: Dominique Garrison on 03-30-2022 Hemoglobin (Bld) [Mass/Vol] 13.3 g/dL 11.8-15.4 [facility] Blood leukocytes automated c ount (number/volume)Ordered By: Dominique Garrison on 03-30-2022 WBC (Bld) [#/Vol] 10.7 10*3/uL 4.5-11.0 [facility] Complete Blood Count Auto Di ffon 03-30-2022 Basophils (Bld) [#/Vol] 0.1 10*3/uL Normal 0.0-0.2 [facility] Comment on above: Result Comment: PERF ORMED BY: [place] [address] PATHOLOGIST [employer] JACQUIE CRABTREE M.D. Performed By: #### C BC, CMP, T SPOT TB #### [address] #### HCVCASCADE, HBSAB, HBCAB #### [facility] , Basophils/100 WBC (Bld) 0.6 % Normal . [facility] Comment on above: Performed By: #### C BC, CMP, T SPOT TB #### [address] #### HCVCASCADE, HBSAB, HBCAB #### [facility] , Eosinophils (Bld) [#/Vol] 0.2 10*3/uL Normal 0.0-0.45 [facility] Comment on above: Performed By: #### C BC, CMP, T SPOT TB #### [address] #### HCVCASCADE, HBSAB, HBCAB #### [facility] , Eosinophils/100 WBC (Bld) 1.5 % Normal . [facility] Comment on above: Performed By: #### C BC, CMP, T SPOT TB #### [place] [address] [place] #### HCVCASCADE, HBSAB, HBCAB #### [facility] , Erythrocyte distribution width (RBC) [Ratio] 14.2 % Normal 11.9-15.3 [facility] Comment on above: Performed By: #### C BC, CMP, T SPOT TB #### [place] [address] [place] #### HCVCASCADE, HBSAB, HBCAB #### [facility] , Hematocrit (Bld) [Volume fraction] 39.6 % Normal 34.0-46.4 [facility] Comment on above: Performed By: #### C BC, CMP, T SPOT TB #### [address] #### HCVCASCADE, HBSAB, HBCAB #### [facility] , Hemoglobin (Bld) [Mass/Vol] 13.3 g/dL Normal 11.8-15.4 [facility] Comment on above: Performed By: #### C BC, CMP, T SPOT TB #### [address] #### HCVCASCADE, HBSAB, HBCAB #### [facility] , Lymphocytes (Bld) [#/Vol] 1.7 10*3/uL Normal 1.00-4.8 [facility] Comment on above: Performed By: #### C BC, CMP, T SPOT TB #### [address] #### HCVCASCADE, HBSAB, HBCAB #### [facility] , Lymphocytes/100 WBC (Bld) 16.0 % Normal . [facility] Comment on above: Performed By: #### C BC, CMP, T SPOT TB #### [facility] [address] [place] [address] #### HCVCASCADE, HBSAB, HBCAB #### [facility] , MCH (RBC) [Entitic mass] 26.8 pg Normal 24.7-34.3 [facility] Comment on above: Performed By: #### C BC, CMP, T SPOT TB #### [address] #### HCVCASCADE, HBSAB, HBCAB #### [facility] , MCV (RBC) [Entitic vol] 79.6 fL Low 80-100 [facility] Comment on above: Performed By: #### C BC, CMP, T SPOT TB #### [facility] [address] [place] [address] [place] #### HCVCASCADE, HBSAB, HBCAB #### [facility] , Mean Corpuscular HGB Conc 33.7 g/dL Normal 32.0-35.0 [facility] Comment on above: Performed By: #### C BC, CMP, T SPOT TB #### [facility] [address] [place] [address] #### HCVCASCADE, HBSAB, HBCAB #### [facility] , Monocytes (Bld) [#/Vol] 0.7 10*3/uL Normal 0.0-0.8 [facility] Comment on above: Performed By: #### C BC, CMP, T SPOT TB #### [address] #### HCVCASCADE, HBSAB, HBCAB #### [facility] , Monocytes/100 WBC (Bld) 6.4 % Normal . [facility] Comment on above: Performed By: #### C BC, CMP, T SPOT TB #### [address] #### HCVCASCADE, HBSAB, HBCAB #### [facility] , Neutrophils (Bld) [#/Vol] 8.0 10*3/uL High 1.8-7.7 [facility] Comment on above: Performed By: #### C BC, CMP, T SPOT TB #### [facility] [address] [place] [address] [place] #### HCVCASCADE, HBSAB, HBCAB #### [facility] , Neutrophils/100 WBC (Bld) 75.5 % Normal . [facility] Comment on above: Performed By: #### C BC, CMP, T SPOT TB #### [facility] [address] [place] [address] #### HCVCASCADE, HBSAB, HBCAB #### [facility] , Nucleated RBC/100 WBC (Bld) [Ratio] 0.1 % Normal 0-0.5 [facility] Comment on above: Performed By: #### C BC, CMP, T SPOT TB #### [facility] [address] [place] [address] #### HCVCASCADE, HBSAB, HBCAB #### [facility] , Platelet mean volume (Bld) [Entitic vol] 7.3 fL Normal 6.3-10.7 [facility] Comment on above: Performed By: #### C BC, CMP, T SPOT TB #### [address] #### HCVCASCADE, HBSAB, HBCAB #### [facility] , Platelets (Bld) [#/Vol] 376 10*3/uL Normal 150-450 [facility] Comment on above: Performed By: #### C BC, CMP, T SPOT TB #### [address] #### HCVCASCADE, HBSAB, HBCAB #### [facility] , RBC (Bld) [#/Vol] 4.97 10*6/uL Normal 3.60-5.00 [facility] Comment on above: Performed By: #### C BC, CMP, T SPOT TB #### [place] [address] [place] #### HCVCASCADE, HBSAB, HBCAB #### [facility] , WBC (Bld) [#/Vol] 10.7 10*3/uL Normal 4.5-11.0 [facility] Comment on above: Performed By: #### C BC, CMP, T SPOT TB #### [facility] [address] [place] [address] #### HCVCASCADE, HBSAB, HBCAB #### [facility] , Comprehensive Metabolic Pane mikey 03-30-2022 Albumin [Mass/Vol] 3.1 g/dL Low 3.2-5.5 [facility] Comment on above: Performed By: #### U HCG #### [facility] [address] [place] [address] Albumin/Globulin [Mass ratio] 0.8 {ratio} Normal [facility] Comment on above: Performed By: #### U HCG #### [address] ALP [Catalytic activity/Vol] 66 U/L Normal 32-92 [facility] Comment on above: Result Comment: PERF ORMED BY: [place] [address] PATHOLOGIST [employer] JACQUIE CRABTREE M.D. Performed By: #### U HCG #### [address] ALT [Catalytic activity/Vol] 24 U/L Normal 10-60 [facility] Comment on above: Performed By: #### U HCG #### [address] AST [Catalytic activity/Vol] 20 U/L Normal 10-42 [facility] Comment on above: Performed By: #### U HCG #### [facility] [address] [place] [address] [place] Bilirubin [Mass/Vol] 0.5 mg/dL Normal 0.3-1.2 [facility] Comment on above: Performed By: #### U HCG #### [facility] [address] [place] [address] [place] Calcium [Mass/Vol] 8.5 mg/dL Normal 8.2-10.2 [facility] Comment on above: Performed By: #### U HCG #### [facility] [address] [place] [address] [place] Chloride [Moles/Vol] 105 mmol/L Normal 95-114 [facility] Comment on above: Performed By: #### U HCG #### [facility] [address] CO2 [Moles/Vol] 23.0 mmol/L Normal 22.0-30.0 [facility] Comment on above: Performed By: #### U HCG #### [facility] [address] Creatinine [Mass/Vol] 0.74 mg/dL Normal 0.44-1.03 [facility] Comment on above: Performed By: #### U HCG #### [address] Estimated GFR ( Vinh > 60 [facility] Comment on above: Result Comment: GFR estimated reference range: According to KDOQI guidelines, <60 ml/min/1.73m2 is sufficient to diagnose a patient with chronic kidney disease. Performed By: #### U HCG #### [address] Estimated GFR (Non- Am > 60 [facility] Comment on above: Performed By: #### U HCG #### [address] Globulin (S) [Mass/Vol] 4.1 g/dL Normal [facility] Comment on above: Performed By: #### U HCG #### [address] Glucose [Mass/Vol] 97 mg/dL Normal 70-100 [facility] Comment on above: Result Comment: [place] Glucose Reference Range is dependent on time and content of last meal. Glucose of more than 200 mg/dL in a nonstressed, ambulatory subject supports the diagnosis of Diabetes Mellitus. ADA recommended reference range Performed By: #### U HCG #### [address] Potassium [Moles/Vol] 3.8 mmol/L Normal 3.5-5.1 [facility] Comment on above: Performed By: #### U HCG #### [facility] [address] [place] [address] [place] Protein [Mass/Vol] 7.2 g/dL Normal 6.1-7.9 [facility] Comment on above: Performed By: #### U HCG #### [facility] [address] [place] [address] [place] Sodium [Moles/Vol] 136 mmol/L Normal 136-146 [facility] Comment on above: Performed By: #### U HCG #### [facility] [address] [place] [address] [place] Urea nitrogen [Mass/Vol] 9 mg/dL Normal 9-23 [facility] Comment on above: Performed By: #### U HCG #### [facility] [address] [place] [address] [place] Creatinine and Glomerular fi ltration rate.predicted panel (S/P/Bld)Ordered By: Dominique Garrison on 03-30-2022 Creatinine [Mass/Vol] 0.74 mg/dL 0.44-1.03 [facility] Eosinophils Auto (Bld) [#/Vo l]Ordered By: Dominique Garrison on 03-30-2022 Eosinophils (Bld) [#/Vol] 0.2 10*3/uL 0.0-0.45 [facility] Eosinophils/100 WBC Auto (Bl d)Ordered By: Dominique Garrison on 03-30-2022 Eosinophils/100 WBC (Bld) 1.5 % . [facility] Erythrocyte distribution wid th Auto (RBC) [Ratio]Ordered By: Dominique Garrison on 03-30-2022 Erythrocyte distribution width (RBC) [Ratio] 14.2 % 11.9-15.3 [facility] Estimated glomerular filtrat ion rate (GFR) non- AmericanOrdered By: Dominique Garrison on 03-30-2022 GFR/1.73 sq M.predicted among non-blacks MDRD (S/P/Bld) [Vol rate/Area] > 60 mL/Min [facility] Globulin Calc (S) [Mass/Vol] Ordered By: Domiinque Garrison on 03-30-2022 Globulin (S) [Mass/Vol] 4.1 g/dL [facility] HCV Antibody Cascadeon 03-30 Hepatitis C Virus Antibody 0.2 Normal 0.0-0.9 [facility] Comment on above: Performed By: #### U HCG #### [address] Interpretation Hepatitis C Normal . [facility] Comment on above: Result Comment: Nega tive Not infected with HCV, unless recent infection is suspected or other evidence exists to indicate HCV infection. Performed By: #### U HCG #### [address] Hematocrit Auto (Bld) [Volum e fraction]Ordered By: Dominique Garrison on 03-30-2022 Hematocrit (Bld) [Volume fraction] 39.6 % 34.0-46.4 [facility] Hepatitis B Core Antibodyon 03-30-2022 Hepatitis B Core Antibody Negative Normal Negative [facility] Comment on above: Result Comment: Perf ormed at: CB - [facility] [address] [id number] Behavioral Therapy Coordinator: Tarun Almanzar PhD, Phone: [phone] PERFORMED BY: [place] [address] PATHOLOGIST [employer] JACQUIE CRABTREE M.D. Performed By: #### U HCG #### [address] Hepatitis B Surface Antibody on 03-30-2022 Hepatitis B Surface Antibody Reactive Normal . [facility] Comment on above: Result Comment: Non Reactive: Inconsistent with immunity, less than 10 mIU/mL Reactive: Consistent with immunity, greater than 9.9 mIU/mL Performed By: #### U HCG #### [address] Hepatitis C virus RNA [Units /volume] (viral load) in Serum or Plasma by EVARISTO with probOrdered By: Dominique Garrison on 03-30-2022 HCV RNA EVARISTO+probe Qn N/A [facility] Hepatitis C virus RNA [log u nits/volume] (viral load) in Serum or Plasma by EVARISTO withOrdered By: Dominique Garrison on 03-30-2022 HCV RNA EVARISTO+probe [Log units/Vol] N/A [facility] - Hematology and Cell countsOrdered By: Dominique Garrison on 03-30-2022 Nucleated RBC/100 WBC (Bld) [Ratio] 0.1 % 0-0.5 [facility] Lymphocytes Auto (Bld) [#/Vo l]Ordered By: Dominique Garrison on 03-30-2022 Lymphocytes (Bld) [#/Vol] 1.7 10*3/uL 1.00-4.8 [facility] Lymphocytes/100 WBC Auto (Bl d)Ordered By: Dominique Garrison on 03-30-2022 Lymphocytes/100 WBC (Bld) 16.0 % . [facility] MCH Auto (RBC) [Entitic mass ]Ordered By: Dominique Garrison on 03-30-2022 MCH (RBC) [Entitic mass] 26.8 pg 24.7-34.3 [facility] MCHC Auto (RBC) [Mass/Vol]Or dered By: Dominique Garrison on 03-30-2022 MCHC (RBC) [Mass/Vol] 33.7 g/dL 32.0-35.0 [facility] MCV Auto (RBC) [Entitic vol] Ordered By: Dominique Garrison on 03-30-2022 MCV (RBC) [Entitic vol] 79.6 fL 80-100 [facility] Monocytes Auto (Bld) [#/Vol] Ordered By: Dominique Garrison on 03-30-2022 Monocytes (Bld) [#/Vol] 0.7 10*3/uL 0.0-0.8 [facility] Monocytes/100 WBC Auto (Bld) Ordered By: Dominique Garrison on 03-30-2022 Monocytes/100 WBC (Bld) 6.4 % . [facility] Neutrophils Auto (Bld) [#/Vo l]Ordered By: Dominique Garrison on 03-30-2022 Neutrophils (Bld) [#/Vol] 8.0 10*3/uL 1.8-7.7 [facility] Neutrophils/100 WBC Auto (Bl d)Ordered By: Dominique Garrison on 03-30-2022 Neutrophils/100 WBC (Bld) 75.5 % . [facility] No Panel InformationOrdered By: Dominique Garrison on 03-30-2022 Estimated GFR () > 60 mL/Min [facility] Comment on above: GFR estimated refere nce range: According to KDOQI guidelines, <60 ml/min/1.73m2 is sufficient to diagnose a patient with chronic kidney disease. Hepatitis B Core Total Antibody Negative Negative [facility] Comment on above: Performed at: [address] [id number] Behavioral Therapy Coordinator: Tarun Almanzar PhD, Phone: [phone] Hepatitis C Interpretation See comment . [facility] Comment on above: Negative Not infected with HCV, unless recent infection is suspected or other evidence exists to indicate HCV infection. Hepatitis C RNA Quantitative N/A [facility] Creatinine Clearance (Chem N/A [facility] TB Test (T-Spot) . [facility] Comment on above: See report. Scanned copy available in EMR. Platelet mean volume Auto (B ld) [Entitic vol]Ordered By: Dominique Garrison on 03-30-2022 Platelet mean volume (Bld) [Entitic vol] 7.3 fL 6.3-10.7 [facility] Platelets Auto (Bld) [#/Vol] Ordered By: Dominique Garrison on 03-30-2022 Platelets (Bld) [#/Vol] 376 10*3/uL 150-450 [facility] Protein [Mass/volume] in Ser um or PlasmaOrdered By: Dominique Garrison on 03-30-2022 Protein [Mass/Vol] 7.2 g/dL 6.1-7.9 [facility] RBC Auto (Bld) [#/Vol]Ordere d By: Dominique Garrison on 03-30-2022 RBC (Bld) [#/Vol] 4.97 10*6/uL 3.60-5.00 [facility] Serum hepatitis B virus surf mary antibody detectionOrdered By: Dominique Garrison on 03-30-2022 HBV surface Ab Ql (S) Reactive . [facility] Comment on above: Non Reactive: Incons istent with immunity, less than 10 mIU/mL Reactive: Consistent with immunity, greater than 9.9 mIU/mL Serum or plasma alanine block otransferase measurement without P-5'-P (enzymatic activiOrdered By: Dominique Garrison on 03-30-2022 ALT No additional P-5'-P [Catalytic activity/Vol] 24 U/L 10-60 [facility] Serum or plasma albumin/glob ulin mass ratioOrdered By: Dominique Garrison on 03-30-2022 Albumin/Globulin [Mass ratio] 0.8 {ratio} [facility] Serum or plasma alkaline james sphatase measurement (enzymatic activity/volume)Ordered By: Dominique Garrison on 03-30-2022 ALP [Catalytic activity/Vol] 66 U/L 32-92 [facility] Serum or plasma aspartate am inotransferase measurement (enzymatic activity/volume)Ordered By: Dominique Garrison on 03-30-2022 AST [Catalytic activity/Vol] 20 U/L 10-42 [facility] Serum or plasma calcium seema urement (mass/volume)Ordered By: Dominique Garrison on 03-30-2022 Calcium [Mass/Vol] 8.5 mg/dL 8.2-10.2 [facility] Serum or plasma chloride laura surement (moles/volume)Ordered By: Dominique Garrison on 03-30-2022 Chloride [Moles/Vol] 105 mmol/L 95-114 [facility] Serum or plasma glucose seema urement (mass/volume)Ordered By: Dominique Garrison on 03-30-2022 Glucose [Mass/Vol] 97 mg/dL 70-100 [facility] Comment on above: ADA recommended refe [...] IA [Rel units/Vol] 0.2 s/co ratio 0.0-0.9 [facility] Serum or plasma potassium me asurement (moles/volume)Ordered By: Dominique Garrison on 03-30-2022 Potassium [Moles/Vol] 3.8 mmol/L 3.5-5.1 [facility] Serum or plasma sodium measu rement (moles/volume)Ordered By: Dominique Garrison on 03-30-2022 Sodium [Moles/Vol] 136 mmol/L 136-146 [facility] Serum or plasma total biliru bin measurement (mass/volume)Ordered By: Dominique Bladimir on 03-30-2022 Bilirubin [Mass/Vol] 0.5 mg/dL 0.3-1.2 [facility] Serum or plasma total carbon dioxide measurement (moles/volume)Ordered By: Dominique Garrison on 03-30-2022 CO2 [Moles/Vol] 23.0 mmol/L 22.0-30.0 [facility] Serum or plasma urea nitroge n measurement (mass/volume)Ordered By: Dominique Garrison on 03-30-2022 Urea nitrogen [Mass/Vol] 9 mg/dL 9- [facility] T SPOT TB TESTon 03-30-2022 T SPOT TB TEST . Normal [facility] Comment on above: Result Comment: See report. Scanned copy available in EMR. PERFORMED BY: [place] [address] PATHOLOGIST [employer] JACQUIE CRABTREE M.D. Performed By: #### U HCG #### [address] Bacteria identified Anaer cx Nom (Unsp spec)Ordered By: John Carlson on 03-29-2022 Anaerobic Culture Prevotella bivia F [facility] Bacteria identified Aer cx N om (Unsp spec)Ordered By: John Carlson on 03-15-2022 Aerobic Culture Strep. agalactiae Grp B [facility] ABO and Rh group post transf usion reaction Nom (Bld)Ordered By: John Carlson on 03-14-2022 Microscopic observation Gram stain Nom (Unsp spec) [facility] Aerobic Cultureon 03-13-2022 Aerobic Culture Comment Right Labial Abscess ORGANISM: Strep. agalactiae Grp B (O:B) Quantity of Growth Moderate Growth Comment Right Labial Abscess ORGANISM: Prevotella bivia (O:PREBIV) Comments Sent to [facility] for Testing Quantity of Growth Moderate Growth PREVOTELLA BIVIA (A) [facility] [facility] sent to [facility] for susceptibililty testing. Minimum inhibitory concentration (ug/ml) [...] methology. Interpret results with caution. Testing performed [facility] Comment Right Labial Abscess Gram Stain Result 4+ White Blood Cells Rare Gram Positive Cocci PERFORMED BY: [place] [address] PATHOLOGIST COLLECTION SYSTEMS FOREMAN JACQUIE CRABTREE M.D. Normal [facility] Comment on above: Performed By: #### C OVID 19 [facility] #### [facility] [address] Basic Metabolic Panelon 07- Calcium [Mass/Vol] 8.9 mg/dL Normal 8.2-10.2 [facility] Comment on above: Performed By: #### B MP #### [facility] [address] [place] [address] [place] Chloride [Moles/Vol] 98 mmol/L Normal 95-114 [facility] Comment on above: Performed By: #### B MP #### [facility] [address] [place] [address] [place] CO2 [Moles/Vol] 24.4 mmol/L Normal 22.0-30.0 [facility] Comment on above: Performed By: #### B MP #### [facility] [address] [place] [address] [place] Creatinine [Mass/Vol] 0.77 mg/dL Normal 0.44-1.03 [facility] Comment on above: Performed By: #### B MP #### [place] [address] [place] Creatinine Clr Calc Pharmacy 159.38 [facility] Comment on above: Result Comment: PERF ORMED BY: [place] [address] PATHOLOGIST COLLECTION SYSTEMS FOREMAN JACQUIE CRABTREE M.D. Performed By: #### B MP #### [address] Estimated GFR ( Vinh > 60 [facility] Comment on above: Result Comment: GFR estimated reference range: According to KDOQI guidelines, <60 ml/min/1.73m2 is sufficient to diagnose a patient with chronic kidney disease. Performed By: #### B MP #### [address] Estimated GFR (Non- Am > 60 [facility] Comment on above: Performed By: #### B MP #### [address] Glucose [Mass/Vol] 95 mg/dL Normal 70-100 [facility] Comment on above: Result Comment: [place] Glucose Reference Range is dependent on time and content of last meal. Glucose of more than 200 mg/dL in a nonstressed, ambulatory subject supports the diagnosis of Diabetes Mellitus. ADA recommended reference range Performed By: #### B MP #### [address] Potassium [Moles/Vol] 3.8 mmol/L Normal 3.5-5.1 [facility] Comment on above: Performed By: #### B MP #### [place] [address] [place] Sodium [Moles/Vol] 133 mmol/L Low 136-146 [facility] Comment on above: Performed By: #### B MP #### [address] Urea nitrogen [Mass/Vol] 7 mg/dL Low 9-23 [facility] Comment on above: Performed By: #### B MP #### [facility] [address] Creatinine and Glomerular fi ltration rate.predicted panel (S/P/Bld)Ordered By: KATYA SIMENTAL on 03-13-2022 Creatinine [Mass/Vol] 0.77 mg/dL 0.44-1.03 [facility] Estimated glomerular filtrat ion rate (GFR) non- AmericanOrdered By: KATYA SIMENTAL on 03-13-2022 GFR/1.73 sq M.predicted among non-blacks MDRD (S/P/Bld) [Vol rate/Area] > 60 mL/Min [facility] HCG ( test) IA.rapi d Ql (U)Ordered By: KATYA SIMENTAL on 03-13-2022 HCG ( test) Ql (U) Negative [facility] HCG,Urineon 03-13-2022 Beta HCG ( test) Ql (U) Negative Normal [facility] Comment on above: Result Comment: PERF ORMED BY: [place] [address] PATHOLOGIST COLLECTION SYSTEMS FOREMAN JACQUIE CRABTREE M.D. Performed By: #### U HCG #### [facility] [address] [place] [address] No Panel InformationOrdered By: KATYA SIMENTAL on 03-13-2022 Estimated GFR () > 60 mL/Min [facility] Comment on above: GFR estimated refere nce range: According to KDOQI guidelines, <60 ml/min/1.73m2 is sufficient to diagnose a patient with chronic kidney disease. Pharmacy Creatinine Clearance (Chem 159.38 [facility] Serum or plasma calcium seema urement (mass/volume)Ordered By: KATYA SIMENTAL on 03-13-2022 Calcium [Mass/Vol] 8.9 mg/dL 8.2-10.2 [facility] Serum or plasma chloride laura surement (moles/volume)Ordered By: KATYA SIMENTAL on 03-13-2022 Chloride [Moles/Vol] 98 mmol/L 95-114 [facility] Serum or plasma glucose seema urement (mass/volume)Ordered By: KATYA SIMENTAL on 03-13-2022 Glucose [Mass/Vol] 95 mg/dL 70-100 [facility] Comment on above: ADA recommended refe rence range Random Glucose Reference Range is dependent on time and content of last meal. Glucose of more than 200 mg/dL in a nonstressed, ambulatory subject supports the diagnosis of Diabetes Mellitus. Serum or plasma potassium me asurement (moles/volume)Ordered By: KATYA SIMENTAL on 03-13-2022 Potassium [Moles/Vol] 3.8 mmol/L 3.5-5.1 [facility] Serum or plasma sodium measu rement (moles/volume)Ordered By: KATYA SIMENTAL on 03-13-2022 Sodium [Moles/Vol] 133 mmol/L 136-146 [facility] Serum or plasma total carbon dioxide measurement (moles/volume)Ordered By: KATYA SIMENTAL on 03-13-2022 CO2 [Moles/Vol] 24.4 mmol/L 22.0-30.0 [facility] Serum or plasma urea nitroge n measurement (mass/volume)Ordered By: KATYA SIMENTAL on 03-13-2022 Urea nitrogen [Mass/Vol] 7 mg/dL 9- [facility] COVID-19 FRMCon 03-09-2022 SARS-CoV-2 (COVID-19) RNA EVARISTO+probe Ql (Unsp spec) Negative Normal Negative [facility] Comment on above: Order Comment: Healt hcare Worker?: N Result Comment: Testing for SARS-CoV-2 by RT-PCR This test was developed and its performance characteristics determined by [employer], [employer] ([employer]) and validated at the [facility]. This test has not been FDA [...] is terminated or revoked sooner. PERFORMED BY: [place] [address] PATHOLOGIST COLLECTION SYSTEMS FOREMAN JACQUIE CRABTREE M.D. Performed By: #### C OVID 19 [facility] #### [address] COVID-19 Positive/NegativeOr dered By: John Carlson on 03-09-2022 SARS-CoV-2 (COVID-19) N gene EVARISTO+probe Ql (Resp) Negative Negative [facility] Comment on above: Testing for SARS-CoV -2 by RT-PCR This test was developed and its performance characteristics determined by [employer] ([employer]) and validated at the [facility]. This test has not been FDA [...] on 02-28-2022 Anaerobic Culture Prevotella bivia F [facility] Bacteria identified Aer cx N om (Unsp spec)Ordered By: John Carlson on 02-15-2022 Aerobic Culture Escherichia coli Fir [facility] Aerobic Culture Strep. agalactiae Grp B [facility] ABO and Rh group post transf usion reaction Nom (Bld)Ordered By: John Carlson on 02-14-2022 Microscopic observation Gram stain Nom (Unsp spec) [facility] Aerobic Cultureon 02-13-2022 Aerobic Culture Comment R LABIAL LESION DEEP WOUND CULTURE Light Normal Skin Keerthi 2 Days Comment R LABIAL LESION DEEP WOUND CULTURE No Anaerobes Isolated 3 Days Comment R LABIAL LESION DEEP WOUND CULTURE Gram Stain Result 3+ White Blood Cells No Bacteria Seen PERFORMED BY: [facility] [address] [place] [address] PATHOLOGIST COLLECTION SYSTEMS FOREMAN JAQCUIE CRABTREE M.D. Normal [facility] Comment on above: Performed By: #### A ERC #### [facility] [address] Aerobic Culture Comment R PUBIS LESION DEEP WOUND CULTURE ORGANISM: Escherichia coli (O:ESCCOL) Quantity of Growth Light Growth ORGANISM: Strep. agalactiae Grp B (O:B) Quantity of Growth Rare Growth Comment R PUBIS LESION DEEP WOUND CULTURE ORGANISM: Prevotella bivia (O:PREBIV) Comments Sent to [facility] for Sensitivity Testing Quantity of Growth Moderate [...] ------ SUSCEPTIBILITY ----- ORGANISM: O:ESCCOL ANTIBIOTIC INTERPRETATION MARY Amikacin S <16 Ampicillin R >16 Ampicillin/Sulbacta [...] RESISTANT TO ALL B-LACTAM DRUGS. PERFORMED BY: [place] [address] PATHOLOGIST COLLECTION SYSTEMS FOREMAN JACQUIE CRABTREE M.D. Normal [facility] Comment on above: Performed By: #### U HCG #### [facility] [address] [place] [address] HCG ( test) IA.rapi d Ql (U)Ordered By: Dillon Miranda on 02-13-2022 HCG ( test) Ql (U) Negative [facility] HCG,Urineon 02-13-2022 Beta HCG ( test) Ql (U) Negative [facility] Comment on above: Result Comment: PERF ORMED BY: [place] [address] PATHOLOGIST COLLECTION SYSTEMS FOREMAN JACQUIE CRABTREE M.D. Performed By: #### U HCG #### [facility] [address] [place], [place] [id number] [place] Mikey 02-13-2022 L Specimen: [id number] Received: 02/14/22 Status: OSCAR Mendoza Num: [id number] Spec Type: Surgical Subm Dr: John Carlson MD Tissues: A Debridement-Skin/Ot her Than Skin (RT PUBIS) B Debridement-Skin/Ot her Than Skin (LT LABIAL) C Debridement-Skin/Ot her Than Skin (RT LABIAL) D Debridement-Skin/Ot her Than Skin (RT ABDOMINAL WALL) Procedures: HE Stain/4, Gross/Micro L3/4 Patient Age/Sex Location Account Attending Physician Margaret Prieto 31/F [place] [id number] John Carlson MD SPEC NUM: [id number] RECD: 02/14/22 STATUS: OSCAR MENDOZA NUM: [id number] DANIEL: 02/13/22-[address]: John Carlson MD ENTERED: 02/14/22-[address]: SPEC TYPE: Surgical DEPT: S ORDERED: HE Stain/4, [...] Multiple leg and groin lesions, hidradenitis Specimen: [id number] Received: 02/14/22 Status: OSCAR Mendoza Num: [id number] Spec Type: Surgical Subm Dr: John Carlson MD Tissues: A Debridement-Skin/Ot her Than Skin (RT PUBIS) B Debridement-Skin/Ot her Than Skin (LT LABIAL) C Debridement-Skin/Ot her Than Skin (RT LABIAL) D Debridement-Skin/Ot her Than Skin (RT ABDOMINAL WALL) Procedures: HE Stain/4, Gross/Micro L3/4 Patient: Margaret Prieto [id number] (Continued) Specimen: [id number] Received: 02/14/22 (Continued) Signed (signatur e on file) Santi Nichols MD (Michelle) 02/15/22 1722 Specimen: [id number] Received: 02/14/22 Status: OSCAR Woody Num: [id number] Spec Type: Surgical Subm Dr: John Carlson MD Tissues: A Debridement-Skin/Ot her Than Skin (RT PUBIS) B Debridement-Skin/Ot her Than Skin (LT LABIAL) C Debridement-Skin/Ot her Than Skin (RT LABIAL) D Debridement-Skin/Ot her Than Skin (RT ABDOMINAL WALL) Procedures: STEPHON Stain/4, Gross/Micro L3/4 Patient: Margaret Prieto [id number] (Continued) Specimen: [id number] Received: 02/14/22 (Continued) Gross Description A. Received [...] the patient's (more content not included)... Normal [facility] SARS-CoV-2 (COVID-19) RNA EVARISTO+probe Ql (Unsp spec) Negative Normal Negative [facility] Comment on above: Order Comment: Healt hcare Worker?: N Result Comment: Testing for SARS-CoV-2 by RT-PCR This test was developed and its performance characteristics determined by [employer] ([employer]) and validated at the [facility]. This test has not been FDA [...] is terminated or revoked sooner. PERFORMED BY: [place] [address] PATHOLOGIST COLLECTION SYSTEMS FOREMAN JACQUIE CRABTREE M.D. Performed By: #### C OVID 19 [facility] #### [address] COVID-19 Positive/NegativeOr dered By: John Carlson on 02-09-2022 SARS-CoV-2 (COVID-19) N gene EVARISTO+probe Ql (Resp) Negative Negative [facility] Comment on above: Testing for SARS-CoV -2 by RT-PCR This test was developed and its performance characteristics determined by [employer] ([employer]) and validated at the [facility]. This test has not been FDA [...] 05-3 Calcium [Mass/Vol] 8.9 mg/dL Normal 8.2-10.2 [facility] Comment on above: Result Comment: PERF ORMED BY: [place] [address] PATHOLOGIST COLLECTION SYSTEMS FOREMAN JACQUIE CRABTREE M.D. Performed By: #### C BC, BMP #### [place] [address] [place] Chloride [Moles/Vol] 99 mmol/L Normal 95-114 [facility] Comment on above: Performed By: #### C BC, BMP #### [place] [address] [place] CO2 [Moles/Vol] 26.3 mmol/L Normal 22.0-30.0 [facility] Comment on above: Performed By: #### C BC, BMP #### [address] Creatinine [Mass/Vol] 0.77 mg/dL Normal 0.44-1.03 [facility] Comment on above: Performed By: #### C BC, BMP #### [place] [address] [place] Estimated GFR ( Vinh > 60 [facility] Comment on above: Result Comment: GFR estimated reference range: According to KDOQI guidelines, <60 ml/min/1.73m2 is sufficient to diagnose a patient with chronic kidney disease. Performed By: #### C BC, BMP #### [address] Estimated GFR (Non- Am > 60 [facility] Comment on above: Performed By: #### C BC, BMP #### [place] [address] [place] Glucose [Mass/Vol] 100 mg/dL Normal 70-100 [facility] Comment on above: Result Comment: [place] Glucose Reference Range is dependent on time and content of last meal. Glucose of more than 200 mg/dL in a nonstressed, ambulatory subject supports the diagnosis of Diabetes Mellitus. ADA recommended reference range Performed By: #### C BC, BMP #### [place] [address] [place] Potassium [Moles/Vol] 3.8 mmol/L Normal 3.5-5.1 [facility] Comment on above: Performed By: #### C BC, BMP #### [address] Sodium [Moles/Vol] 137 mmol/L Normal 136-146 [facility] Comment on above: Performed By: #### C BC, BMP #### [address] Urea nitrogen [Mass/Vol] 11 mg/dL Normal 9-23 [facility] Comment on above: Performed By: #### C BC, BMP #### [address] Complete Blood Count Auto Di ffon 01-31-2022 Basophils (Bld) [#/Vol] 0.1 10*3/uL Normal 0.0-0.2 [facility] Comment on above: Result Comment: PERF ORMED BY: [place] [address] PATHOLOGIST COLLECTION SYSTEMS FOREMAN JACQUIE CRABTREE M.D. Performed By: #### C BC, BMP #### [address] Basophils/100 WBC (Bld) 0.7 % Normal . [facility] Comment on above: Performed By: #### C BC, BMP #### [place] [address] [place] Eosinophils (Bld) [#/Vol] 0.3 10*3/uL Normal 0.0-0.45 [facility] Comment on above: Performed By: #### C BC, BMP #### [place] [address] [place] Eosinophils/100 WBC (Bld) 2.7 % Normal . [facility] Comment on above: Performed By: #### C BC, BMP #### [address] Erythrocyte distribution width (RBC) [Ratio] 14.3 % Normal 11.9-15.3 [facility] Comment on above: Performed By: #### C BC, BMP #### [facility] [address] Hematocrit (Bld) [Volume fraction] 41.9 % Normal 34.0-46.4 [facility] Comment on above: Performed By: #### C BC, BMP #### [facility] [address] Hemoglobin (Bld) [Mass/Vol] 13.9 g/dL Normal 11.8-15.4 [facility] Comment on above: Performed By: #### C BC, BMP #### [facility] [address] Lymphocytes (Bld) [#/Vol] 2.0 10*3/uL Normal 1.00-4.8 [facility] Comment on above: Performed By: #### C BC, BMP #### [facility] [address] Lymphocytes/100 WBC (Bld) 15.9 % Normal . [facility] Comment on above: Performed By: #### C BC, BMP #### [facility] [address] MCH (RBC) [Entitic mass] 26.4 pg Normal 24.7-34.3 [facility] Comment on above: Performed By: #### C BC, BMP #### [facility] [address] MCV (RBC) [Entitic vol] 79.5 fL Low 80-100 [facility] Comment on above: Performed By: #### C BC, BMP #### [facility] [address] Mean Corpuscular HGB Conc 33.2 g/dL Normal 32.0-35.0 [facility] Comment on above: Performed By: #### C BC, BMP #### [facility] [address] Monocytes (Bld) [#/Vol] 0.8 10*3/uL Normal 0.0-0.8 [facility] Comment on above: Performed By: #### C BC, BMP #### [facility] [address] [place] [id number] [place] Monocytes/100 WBC (Bld) 6.7 % Normal . [facility] Comment on above: Performed By: #### C BC, BMP #### [facility] [address] [place] [address] [place] Neutrophils (Bld) [#/Vol] 9.2 10*3/uL High 1.8-7.7 [facility] Comment on above: Performed By: #### C BC, BMP #### [facility] [address] [place] [address] [place] Neutrophils/100 WBC (Bld) 74.0 % Normal . [facility] Comment on above: Performed By: #### C BC, BMP #### [facility] [address] [place] [id number] [place] Nucleated RBC/100 WBC (Bld) [Ratio] 0.0 % Normal 0-0.5 [facility] Comment on above: Performed By: #### C BC, BMP #### [facility] [address] [place] [id number] [place] Platelet mean volume (Bld) [Entitic vol] 6.9 fL Normal 6.3-10.7 [facility] Comment on above: Performed By: #### C BC, BMP #### [facility] [address] [place] [address] [place] Platelets (Bld) [#/Vol] 363 10*3/uL Normal 150-450 [facility] Comment on above: Performed By: #### C BC, BMP #### [facility] [address] [place] [address] [place] RBC (Bld) [#/Vol] 5.26 10*6/uL High 3.60-5.00 [facility] Comment on above: Performed By: #### C BC, BMP #### [facility] [address] [place] [id number] [place] WBC (Bld) [#/Vol] 12.5 10*3/uL High 4.5-11.0 [facility] Comment on above: Performed By: #### C BC, BMP #### [facility] [address] ECG 12 lead ECGon 01-31-2022 ECG 12 lead ECG [facility] [place] [address] [place] [address] Electrocardiograph Report Signed Patient: Margaret Prieto MR#: [id number] : 1990 Acct:[id number] Age/Sex: 31 / F ADM Date: 01/31/22 Loc: PS Room: Type: [facility] Attending Dr: John Carlson MD Ordering Provider: [...] Signed By Susanna Ruiz DO 01/31 1848 [facility] Physician Referralon 022 Physician Referral [id number]:127 Normal [facility] Physician Referralon 021 Physician Referral [id number]:127 Normal [facility] Vital Signs Date Time Vital Sign Value Performing Clinician Facility 12-20-2023 10:16040 Body temperature 97.7 [degF] Sharif Joseph MD Work Phone: [facility] 12-20-2023 10:16040 Body weight 171.1 kg Sharif Joseph MD Work Phone: [facility] 12-20-2023 10:16-0400 Diastolic blood pressure 90 mm[Hg] Sharif Joseph MD Work Phone: [facility] 12-20-2023 10:16-0400 Heart rate 98 /min Sharif Joseph MD Work Phone: [facility] 12-20-2023 10:16-0400 Respiratory rate 16 /min Sharif Joseph MD Work Phone: [facility] 12-20-2023 10:16-0400 SaO2% (BldA) [Mass fraction] 97 % Sharif Joseph MD Work Phone: [facility] 12-20-2023 10:16-0400 Systolic blood pressure 154 mm[Hg] Sharif Joseph MD Work Phone: [facility] 12-07-2023 11:05-0400 Body height 165.1 cm Harley Thacker RUG INSPECTOR-LINKING MACHINE OPERATOR Work Phone: [facility] 12-07-2023 11:05-0400 Body mass index (BMI) [Ratio] 64.23 kg/m2 Harley Thacker RUG INSPECTOR-LINKING MACHINE OPERATOR Work Phone: [facility] 12-07-2023 11:05-0400 Body temperature 98.01 [degF] Harley Thacker RUG INSPECTOR-LINKING MACHINE OPERATOR Work Phone: [facility] 12-07-2023 11:05-0400 Body weight 175.09 kg Harley Thacker RUG INSPECTOR-LINKING MACHINE OPERATOR Work Phone: [facility] 12-07-2023 11:05-0400 Diastolic blood pressure 76 mm[Hg] Harley Thacker RUG INSPECTOR-LINKING MACHINE OPERATOR Work Phone: [facility] 12-07-2023 11:05-0400 Heart rate 97 /min Harley Thacker RUG INSPECTOR-LINKING MACHINE OPERATOR Work Phone: [facility] 12-07-2023 11:05-0400 SaO2% (BldA) [Mass fraction] 94 % Harley Thacker RUG INSPECTOR-LINKING MACHINE OPERATOR Work Phone: [facility] 12-07-2023 11:05-0400 Systolic blood pressure 136 mm[Hg] Harley Thacker RUG INSPECTOR-LINKING MACHINE OPERATOR Work Phone: [facility] 11-29-2023 10:42-0400 Body height 165.1 cm Sharif Joseph MD Work Phone: [facility] 11-29-2023 10:42-0400 Body temperature 97.59 [degF] Sharif Joseph MD Work Phone: [facility] 11-29-2023 10:42-0400 Body weight 172.8 kg Sharif Joseph MD Work Phone: [facility] 11-29-2023 10:42-0400 Diastolic blood pressure 100 mm[Hg] Sharif Joseph MD Work Phone: [facility] 11-29-2023 10:42-0400 Heart rate 98 /min Sharif Joseph MD Work Phone: [facility] 11-29-2023 10:42-0400 Respiratory rate 16 /min Sharif Joseph MD Work Phone: [facility] 11-29-2023 10:42-0400 SaO2% (BldA) [Mass fraction] 98 % Sharif Joseph MD Work Phone: [facility] 11-29-2023 10:42-0400 Systolic blood pressure 159 mm[Hg] Sharif Joseph MD Work Phone: [facility] 11-28-2023 09:58-0400 Body height 165.1 cm Pam Mittal MD Work Phone: [facility] 11-28-2023 09:58-0400 Body mass index (BMI) [Ratio] 63.73 kg/m2 Pam Mittal MD Work Phone: [facility] 11-28-2023 09:58-0400 Body weight 173.73 kg Pam Mittal MD Work Phone: [facility] 11-28-2023 09:58-0400 Diastolic blood pressure 96 mm[Hg] Pam Mittal MD Work Phone: [facility] 11-28-2023 09:58-0400 Heart rate 95 /min Pam Mittal MD Work Phone: [facility] 11-28-2023 09:58-0400 SaO2% (BldA) [Mass fraction] 98 % Pam Mittal MD Work Phone: [facility] 11-28-2023 09:58-0400 Systolic blood pressure 140 mm[Hg] Pam Mittal MD Work Phone: [facility] 11-14-2023 15:25-0400 Body height 165.1 cm Harley Thacker RUG INSPECTOR-LINKING MACHINE OPERATOR Work Phone: [facility] 11-14-2023 15:25-0400 Body mass index (BMI) [Ratio] 63.5 kg/m2 Harley Thacker RUG INSPECTOR-LINKING MACHINE OPERATOR Work Phone: [facility] 11-14-2023 15:25-0400 Body temperature 98.6 [degF] Harley Thacker RUG INSPECTOR-LINKING MACHINE OPERATOR Work Phone: [facility] 11-14-2023 15:25-0400 Body weight 173.09 kg Harley Thacker RUG INSPECTOR-LINKING MACHINE OPERATOR Work Phone: [facility] 11-14-2023 15:25-0400 Diastolic blood pressure 80 mm[Hg] Harley Thacker RUG INSPECTOR-LINKING MACHINE OPERATOR Work Phone: [facility] 11-14-2023 15:25-0400 Heart rate 98 /min Harley Thacker RUG INSPECTOR-LINKING MACHINE OPERATOR Work Phone: [facility] 11-14-2023 15:25-0400 SaO2% (BldA) [Mass fraction] 97 % Harley Thacker RUG INSPECTOR-LINKING MACHINE OPERATOR Work Phone: [facility] 11-14-2023 15:25-0400 Systolic blood pressure 132 mm[Hg] Harley Thacker RUG INSPECTOR-LINKING MACHINE OPERATOR Work Phone: [facility] 11-07-2023 10:01-0500 Body height 165.1 cm Corine Catherine RUG INSPECTOR-LINKING MACHINE OPERATOR Work Phone: [facility] 11-07-2023 10:01-0500 Body mass index (BMI) [Ratio] 63.77 kg/m2 Corine Catherine RUG INSPECTOR-LINKING MACHINE OPERATOR Work Phone: [facility] 11-07-2023 10:01-0500 Body weight 173.82 kg Corine Catherine RUG INSPECTOR-LINKING MACHINE OPERATOR Work Phone: [facility] 11-07-2023 10:01-0500 Diastolic blood pressure 89 mm[Hg] Corine Catherine RUG INSPECTOR-LINKING MACHINE OPERATOR Work Phone: [facility] 11-07-2023 10:01-0500 Heart rate 95 /min Corine Catherine RUG INSPECTOR-LINKING MACHINE OPERATOR Work Phone: [facility] 11-07-2023 10:01-0500 Systolic blood pressure 175 mm[Hg] Corine Catherine RUG INSPECTOR-LINKING MACHINE OPERATOR Work Phone: [facility] 10-19-2023 10:15-0500 Body mass index (BMI) [Ratio] 63.5 kg/m2 Yashira Mi RUG INSPECTOR-LINKING MACHINE OPERATOR Work Phone: [facility] 10-19-2023 10:15-0500 Body weight 173.09 kg Yashira Mi RUG INSPECTOR-LINKING MACHINE OPERATOR Work Phone: [facility] 10-19-2023 10:15-0500 Diastolic blood pressure 96 mm[Hg] Yashira Mi RUG INSPECTOR-LINKING MACHINE OPERATOR Work Phone: [facility] 10-19-2023 10:15-0500 Heart rate 82 /min Yashira Mi RUG INSPECTOR-LINKING MACHINE OPERATOR Work Phone: [facility] 10-19-2023 10:15-0500 Systolic blood pressure 142 mm[Hg] Yashira Mi RUG INSPECTOR-LINKING MACHINE OPERATOR Work Phone: [facility] 10-08-2023 09:12-0500 Body height 165.1 cm Harley Thacker RUG INSPECTOR-LINKING MACHINE OPERATOR Work Phone: [facility] 10-08-2023 09:12-0500 Body mass index (BMI) [Ratio] 63.24 kg/m2 Harley Thacker RUG INSPECTOR-LINKING MACHINE OPERATOR Work Phone: [facility] 10-08-2023 09:12-0500 Body temperature 98.01 [degF] Harley Thacker RUG INSPECTOR-LINKING MACHINE OPERATOR Work Phone: [facility] 10-08-2023 09:12-0500 Body weight 172.37 kg Harley Thacker RUG INSPECTOR-LINKING MACHINE OPERATOR Work Phone: [facility] 10-08-2023 09:12-0500 Diastolic blood pressure 90 mm[Hg] Harley Thacker RUG INSPECTOR-LINKING MACHINE OPERATOR Work Phone: [facility] 10-08-2023 09:12-0500 Heart rate 86 /min Harley Thacker RUG INSPECTOR-LINKING MACHINE OPERATOR Work Phone: [facility] 10-08-2023 09:12-0500 SaO2% (BldA) [Mass fraction] 97 % Harley Thacker RUG INSPECTOR-LINKING MACHINE OPERATOR Work Phone: [facility] 10-08-2023 09:12-0500 Systolic blood pressure 132 mm[Hg] Harley Thacker RUG INSPECTOR-LINKING MACHINE OPERATOR Work Phone: [facility] 05-05-2022 09:25-0400 Body temperature 97.9 [degF] MD John Carlson Work Phone: [facility] 05-05-2022 09:25-0400 Diastolic blood pressure 93 mm[Hg] MD John Carlson Work Phone: [facility] 05-05-2022 09:25-0400 Heart rate 78 /min MD John Carlson Work Phone: [facility] 05-05-2022 09:25-0400 Respiratory rate 18 /min MD John Carlson Work Phone: [facility] 05-05-2022 09:25-0400 SaO2% (BldA) [Mass fraction] 99 % MD John Carlson Work Phone: [facility] 05-05-2022 09:25-0400 Systolic blood pressure 156 mm[Hg] MD John Carlson Work Phone: [facility] 05-05-2022 09:24-0400 Body height 165.1 cm MD John aCrlson Work Phone: [facility] 05-05-2022 09:24-0400 Body weight 155.9 kg MD John Carlson Work Phone: [facility] 04-21-2022 09:29-0400 Body temperature 98.2 [degF] MD John Carlson Work Phone: [facility] 04-21-2022 09:29-0400 Diastolic blood pressure 59 mm[Hg] MD John Carlson Work Phone: [facility] 04-21-2022 09:29-0400 Heart rate 74 /min MD John Carlson Work Phone: [facility] 04-21-2022 09:29-0400 Systolic blood pressure 141 mm[Hg] MD John Carlson Work Phone: [facility] 04-21-2022 08:29-0400 Body height 165.1 cm MD John Carlson Work Phone: [facility] 04-21-2022 08:29-0400 Body weight 155 kg MD John Carlson Work Phone: [facility] 04-10-2022 14:46-0400 Body height 165.1 cm MD John Carlson Work Phone: [facility] 04-10-2022 14:46-0400 Body mass index (BMI) [Ratio] 55.4 kg/m2 MD John Carlson Work Phone: [facility] 04-10-2022 14:46-0400 Body weight 151.04 kg MD John Carlson Work Phone: [facility] 04-10-2022 14:25-0400 Diastolic blood pressure 69 mm[Hg] MD John Carlson Work Phone: [facility] 04-10-2022 14:25-0400 Heart rate 80 /min MD John Carlson Work Phone: [facility] 04-10-2022 14:25-0400 Respiratory rate 16 /min MD John Carlson Work Phone: [facility] 04-10-2022 14:25-0400 SaO2% (BldA) [Mass fraction] 100 % MD John Carlson Work Phone: [facility] 04-10-2022 14:25-0400 Systolic blood pressure 119 mm[Hg] MD John Carlson Work Phone: [facility] 04-10-2022 14:10-0400 Inhaled oxygen flow rate 4 L/min MD John Carlson Work Phone: [facility] 04-10-2022 11:36-0400 Body temperature 97.9 [degF] MD John Carlson Work Phone: [facility] 03-13-2022 19:00-0400 Diastolic blood pressure 92 mm[Hg] MD John Carlson Work Phone: [facility] 03-13-2022 19:00-0400 Heart rate 84 /min MD John Carlson Work Phone: [facility] 03-13-2022 19:00-0400 Respiratory rate 16 /min MD John Carlson Work Phone: [facility] 03-13-2022 19:00-0400 SaO2% (BldA) [Mass fraction] 98 % MD John Carlson Work Phone: [facility] 03-13-2022 19:00-0400 Systolic blood pressure 148 mm[Hg] MD John Carlson Work Phone: [facility] 03-13-2022 18:03-0400 Body temperature 98 [degF] MD John Carlson Work Phone: [facility] 03-13-2022 17:33-0400 Inhaled oxygen flow rate 6 L/min MD John Carlson Work Phone: [facility] 03-13-2022 17:13-0400 Body height 165.1 cm MD John Carlson Work Phone: [facility] 03-13-2022 17:13-0400 Body mass index (BMI) [Ratio] 56.9 kg/m2 MD John Carlson Work Phone: [facility] 03-13-2022 17:13-0400 Body weight 155.12 kg MD John Carlson Work Phone: [facility] 02-13-2022 17:05-0400 Diastolic blood pressure 81 mm[Hg] MD John Carlson Work Phone: [facility] 02-13-2022 17:05-0400 Heart rate 76 /min MD John Carlson Work Phone: [facility] 02-13-2022 17:05-0400 Respiratory rate 16 /min MD John Carlson Work Phone: [facility] 02-13-2022 17:05-0400 SaO2% (BldA) [Mass fraction] 94 % MD John Carlson Work Phone: [facility] 02-13-2022 17:05-0400 Systolic blood pressure 131 mm[Hg] MD John Carlson Work Phone: [facility] 02-13-2022 15:44-0400 Body height 165.1 cm MD John Carlson Work Phone: [facility] 02-13-2022 15:44-0400 Body mass index (BMI) [Ratio] 56.5 kg/m2 MD John Carlson Work Phone: [facility] 02-13-2022 15:44-0400 Body weight 154 kg MD John Carlson Work Phone: [facility] 02-13-2022 12:20-0400 Body temperature 97.9 [degF] MD John Carlson Work Phone: [facility] 08-02-2020 13:24-0500 BMI (Body Mass Index) 58.74 kg/m2 [facility] 08-02-2020 13:24-0500 Body Temperature 98.4 [degF] [facility] 08-02-2020 13:24-0500 Body weight 160.12 kg [facility] 08-02-2020 13:24-0500 BP Diastolic 91 mm[Hg] [facility] 08-02-2020 13:24-0500 BP Systolic 150 mm[Hg] [facility] 08-02-2020 13:24-0500 Height 165.1 cm [facility] 08-02-2020 13:24-0500 Pulse (Heart Rate) 91 /min [facility] 08-02-2020 13:24-0500 Pulse Oximetry 97 % [facility] Encounters Encounter Date Encounter Type Care Provider Facility Start: 04-01-2024 ambulatory Sharif khanna MD Work Phone: Hematology/Oncology Comment on above: Hidradenitis support efren Start: 03-26-2024 End: 03-26-2024 ambulatory [facility] Start: 03-24-2024 End: 03-24-2024 ambulatory Yancy Cancino MD Facility:[facility] Start: 03-20-2024 ambulatory Sharif khanna MD Work Phone: Hematology/Oncology Comment on above: Victolauren and diamondxtra Start: 03-12-2024 End: 03-12-2024 ambulatory [facility] Start: 03-10-2024 End: 03-10-2024 ambulatory Yancy Cancino MD Facility:[facility] Start: 02-27-2024 End: 02-27-2024 ambulatory TREVOR JIMENEZ Not Available Start: 02-13-2024 End: 02-13-2024 ambulatory [facility] Start: 01-23-2024 End: 01-23-2024 ambulatory [facility] Start: 01-10-2024 End: 01-10-2024 ambulatory [facility] Start: 12-25-2023 End: 12-25-2023 ambulatory [facility] Start: 12-20-2023 End: 12-20-2023 ambulatory SHARIF JOSEPH Facility:[facility] Start: 12-20-2023 End: 12-20-2023 Office outpatient visit 25 minutes Sharif Joseph MD Work Phone: Hematology/Oncology Comment on above: Primary hypercoagula ble state (HCC) (Primary Dx); Factor V Leiden (HCC); MTHFR mutation; Iron deficiency anemia, unspecified iron deficiency anemia type; Factor V deficiency (HCC) Start: 12-12-2023 End: 12-13-2023 ambulatory [facility] Start: 12-12-2023 End: 12-12-2023 ambulatory [facility] Start: 12-11-2023 End: 12-11-2023 ambulatory CLARIBEL OLSON [facility] Start: 12-11-2023 End: 12-11-2023 Evaluation and management of inpatient MAYRA RAYA [facility] Start: 12-10-2023 End: 12-11-2023 Evaluation and management of inpatient COLLINS MEJIA [facility] Start: 12-07-2023 End: 12-08-2023 ambulatory [facility] Start: 12-07-2023 Encounter for genera l adult medical examination without abnormal findings [facility] Start: 12-07-2023 End: 12-07-2023 Patient encounter status Harley Thacker RUG INSPECTOR-LINKING MACHINE OPERATOR Work Phone: [facility] Work Phone: Start: 12-07-2023 End: 12-07-2023 Periodic preventive med est patient 18-39 yrs Harley Thacker RUG INSPECTOR-LINKING MACHINE OPERATOR Work Phone: [facility] Comment on above: Wellness examination (Primary Dx); Shalom's disease; Controlled type 2 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 complication, without long-term current use of insulin ([facility]); Encounter for Papanicolaou smear for cervical cancer screening; Hidradenitis suppurativa Start: 12-07-2023 End: 12-07-2023 ambulatory [facility] Start: 12-07-2023 Encounter for genera l adult medical examination without abnormal findings [facility] Start: 12-07-2023 End: 12-07-2023 ambulatory [facility] Start: 12-06-2023 Orders Only Harley jordan RUG INSPECTOR-LINKING MACHINE OPERATOR Work Phone: [facility] Start: 12-05-2023 End: 12-05-2023 ambulatory [facility] Pat Phone Call Provider [facility] Start: 12-03-2023 Telephone encounter Gwen Peterson [facility] Start: 11-29-2023 End: 11-29-2023 ambulatory [facility] Facility:[facility] Start: 11-29-2023 End: 11-29-2023 Office outpatient new 45 minutes Sharif Joseph MD Work Phone: Hematology/Oncology Comment on above: Factor V Leiden (HCC ) (Primary Dx); Gastrointestinal hemorrhage, unspecified gastrointestinal hemorrhage type; Iron deficiency anemia, unspecified iron deficiency anemia type; MTHFR mutation; Primary hypercoagulable state (HCC); History of pulmonary embolism Start: 11-28-2023 End: 11-28-2023 ambulatory [facility] Start: 11-28-2023 End: 11-28-2023 Office outpatient visit 15 minutes Pam Mittal MD Work Phone: [facility] Comment on above: Essential hypertensi on (Primary Dx) Start: 11-27-2023 Chart abstracting Sharif clarke MD Work Phone: Hematology/Oncology Start: 11-27-2023 Telephone encounter Claribel Myers [facility] Start: 11-27-2023 End: 11-27-2023 Office outpatient visit 15 minutes Yashira [facility] RUG INSPECTOR-LINKING MACHINE OPERATOR Work Phone: [facility] Comment on above: Bipolar depression ( CMS-HCC) (Primary Dx); Post traumatic stress disorder (PTSD); Generalized anxiety disorder; Attention deficit hyperactivity disorder, combined type Start: 11-27-2023 End: 11-27-2023 ambulatory [facility] Start: 11-27-2023 End: 11-27-2023 ambulatory [facility] WHITNEY [facility] Start: 11-15-2023 End: 2023 ambulatory [facility] Start: 11-14-2023 End: 11-14-2023 ambulatory [facility] Start: 11-14-2023 Encounter for other preprocedural examination [facility] Start: 11-14-2023 End: 11-14-2023 Office outpatient visit 15 minutes Harley Bettencourtjas RUG INSPECTORLegalJump Work Phone: [facility] Family Medicine Comment on above: Preoperative clearan ce (Primary Dx); Abnormal echocardiogram; History of DVT (deep vein thrombosis); History of pulmonary embolism; Factor 5 Leiden mutation, heterozygous ([facility]); 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 ([facility]); Chest discomfort; Shortness of breath; Atrial mass; Gastroesophageal reflux disease, unspecified whether esophagitis present Start: 11-14-2023 End: 11-14-2023 Preoperative state [facility] RUG INSPECTORLegalJump Work Phone: [facility] Work Phone: Start: 11-14-2023 End: 11-14-2023 ambulatory [facility] Start: 11-12-2023 Telephone encounter Bruna Plasencia CMA [facility] General [facility] Start: 11-09-2023 End: 11-10-2023 ambulatory KATYA DENISE [facility] Start: 11-09-2023 Encounter for other preprocedural examination [facility] Start: 11-09-2023 End: 11-09-2023 Patient encounter procedure [facility] Pre-Admission Testing [facility] Pre [facility] Comment on above: Preop examination (P rimary Dx); MTHFR (methylene THF reductase) deficiency and homocystinuria ([facility]); BMI 60.0-69.9, adult ([facility]); Hypertension, unspecified type; Blood clotting disorder ([facility]) Start: 11-09-2023 End: 11-09-2023 Preprocedural examination done [facility] 1 [facility] Kymab [facility] Start: 11-08-2023 End: 11-08-2023 ambulatory [facility] Start: 11-07-2023 End: 11-07-2023 Office outpatient new 45 minutes Corine Catherine RUG INSPECTORLegalJump Work Phone: [facility] General Surgery Comment on above: Gastroesophageal ref lux disease, unspecified whether esophagitis present (Primary Dx); Nausea and vomiting, unspecified vomiting type; Diarrhea, unspecified type; Morbid obesity ([facility]) Start: 11-07-2023 End: 11-07-2023 ambulatory CORINE CATHERINE [facility] Start: 10-30-2023 End: 10-30-2023 ambulatory CLARIBEL OLSON [facility] Start: 10-23-2023 Refill Susana Rizvi [facility] Family [facility] Start: 10-22-2023 Telephone encounter Lauryn Fry [facility] Start: 10-19-2023 End: 10-19-2023 ambulatory YASHIRA MI [facility] Start: 10-08-2023 End: 10-08-2023 Office outpatient new 45 minutes Harley Thacker APRN-LINKING MACHINE OPERATOR Work Phone: [facility] Comment on above: PE (pulmonary thromb oembolism) ([facility]) (Primary Dx); History of pulmonary embolism; History of DVT (deep vein thrombosis); Factor 5 Leiden mutation, heterozygous ([facility]); 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 ([facility]); Bipolar 1 disorder ([facility]); Insulin resistance; History of prediabetes; History of insulin resistance; Gastroesophageal reflux disease, unspecified whether esophagitis present; Nausea and vomiting, unspecified vomiting type; Hidradenitis suppurativa; Migraine without aura and without status migrainosus, not intractable; Prediabetes Start: 10-08-2023 End: 10-08-2023 ambulatory [facility] Start: 06-25-2023 End: 06-25-2023 ambulatory Yancy Cancino MD Facility:[facility] Start: 05-28-2023 End: 05-28-2023 ambulatory Yancy Cancino MD Facility:[facility] Start: 02-01-2023 ambulatory NIKOLAS SHAMMO Facility:[facility] Start: 12-05-2022 ambulatory NIKOLAS SHAMMO Facility:[facility] Start: 11-22-2022 End: 11-22-2022 ambulatory NIKOLAS SHAMMO Facility: Start: 11-02-2022 End: 11-03-[address] KACEY KAPOOR . Facility:[facility] Start: 10-24-2022 Encounter for genera l adult medical examination without abnormal findings NIKOLAS KOVACS [facility] Start: 10-23-2022 End: 10-24-2022 Encounter for general adult medical examination without abnormal findings NIKOLAS KOVACS Facility:[facility] Start: 10-23-2022 End: 10-24-2022 ambulatory NIKOLAS KOVACS Facility:[facility] Start: 09-28-2022 End: 09-29-[address] KACEY KAPOOR . Facility:[facility] Start: 09-26-2022 End: 09-26-2022 ambulatory DELONTE BAUTISTA . Facility:[facility] Start: 09-05-2022 End: 09-05-2022 ambulatory [facility] BY [facility] Facility:[facility] Start: 06-05-2022 End: 06-06-2022 ambulatory REPLACED BY [facility] Facility:[facility] Start: 06-01-2022 End: 06-02-[address] KACEY KAPOOR . Facility:[facility] Start: 05-05-2022 End: 05-05-2022 ambulatory John Carlson Facility:[facility] Start: 05-05-2022 Registered Recurring MD John Carlson Work Phone: [facility] Start: 04-10-2022 End: 04-10-2022 ambulatory John Carlson Facility:[facility] Start: 04-10-2022 End: 04-10-2022 Admission to same day surgery center MD John Carlson Work Phone: [facility] [place] Start: 04-06-2022 End: 04-06-2022 ambulatory John Carlson Facility:[facility] Start: 04-06-2022 End: 04-06-2022 Patient encounter procedure MD John Carlson Work Phone: [facility] Start: 03-30-2022 End: 03-30-2022 ambulatory Dominique Garrison Facility:[facility] Start: 03-30-2022 End: 03-30-2022 Patient encounter procedure MD John Carlson Work Phone: [facility] [place] Start: 03-13-2022 End: 03-13-2022 ambulatory John Carlson Facility:[facility] Start: 03-13-2022 End: 03-13-2022 Admission to same day surgery center MD John Carlson Work Phone: [facility] [place] Start: 03-09-2022 End: 03-09-2022 ambulatory John Carlson Facility:[facility] Start: 03-09-2022 End: 03-09-2022 Patient encounter procedure MD John Carlson Work Phone: [facility] Start: 03-01-2022 End: 03-02-2022 ambulatory PAM FLANAGAN Facility: Start: 02-13-2022 End: 02-13-2022 ambulatory John Carlson Facility:[facility] Start: 02-13-2022 End: 02-13-2022 Admission to same day surgery center MD John Carlson Work Phone: [facility] [place] Start: 02-09-2022 End: 02-09-2022 ambulatory John Carlson Facility:[facility] Start: 02-09-2022 End: 02-09-2022 Patient encounter procedure MD John Carlson Work Phone: [facility] Start: 01-31-2022 End: 01-31-2022 ambulatory John Carlson Facility:[facility] Start: 08-02-2020 End: 08-02-2020 Patient encounter procedure SANTIAGO SHELL [facility] Start: 08-02-2020 End: 08-02-2020 Office outpatient new 60 minutes [facility] Sumaya Work Phone: [facility] Comment on above: Lupus (HCC) (Primary Dx); Suppurative hidradenitis; Chronic fatigue; YULY (obstructive sleep apnea); Vitamin D insufficiency; Morbid obesity with BMI of 50.0-59.9, adult (HCC) Start: 06-03-2020 Patient encounter procedure ELIZABETH ONEILL [facility] Procedures Date Procedure Procedure Detail Performing Clinician Start: 11-28-2023 Follow-up visit Follow-up PAM MITTAL Start: 11-27-2023 End: 11-27-2023 Psychotherapy w/patient 60 minutes Generalized anxiety disorder Claribelbarbie KUMARW Work Phone: Comment on above: Generalized anxiety disorder (Primary Dx) Start: 11-14-2023 End: 11-14-2023 Psychotherapy w/patient 60 minutes Post traumatic stress disorder (PTSD) Claribel Olson anchor.travel Work Phone: Comment on above: Post traumatic stres s disorder (PTSD) (Primary Dx); Generalized anxiety disorder Start: 10-30-2023 End: 10-30-2023 Psychiatric diagnostic evaluation Post traumatic stress disorder (PTSD) Claribel Reed [employer] Work Phone: Comment on above: Post traumatic stres s disorder (PTSD) (Primary Dx) Start: 10-19-2023 End: 10-19-2023 Psychiatric diagnostic eval w/medical services Bipolar depression ([facility]) Yashira Mi RUG INSPECTOR-LINKING MACHINE OPERATOR Work Phone: Comment on above: Generalized anxiety disorder (Primary Dx); Bipolar depression ([facility]); Post traumatic stress disorder (PTSD); Attention deficit hyperactivity disorder, combined type Start: 10-08-2023 Gluc bld gluc mntr d ev cleared fda spec home use Harley Thacker RUG INSPECTOR-LINKING MACHINE OPERATOR Work Phone: Start: 10-08-2023 Adult depression screening assessment Harley Thacker RUG INSPECTOR-LINKING MACHINE OPERATOR Work Phone: Start: 04-10-2022 OR [...] 12-06-2024 Adult BMI Screening Adult BMI Screening [facility] Start: 12-06-2024 Diabetic foot examination Diabetic Foot Exam [facility] Start: 12-06-2024 Tobacco Screening Tobacco Screening [facility] Start: 11-27-2024 Adult BMI Screening Adult BMI Screening [facility] Start: 11-27-2024 Tobacco Screening Tobacco Screening [facility] Start: 11-13-2024 Adult BMI Screening Adult BMI Screening [facility] Start: 11-13-2024 Tobacco Screening Tobacco Screening [facility] Start: 11-11-2024 Tobacco Screening Tobacco Screening [facility] Start: 11-08-2024 Tobacco Screening Tobacco Screening [facility] Start: 11-06-2024 Adult BMI Screening Adult BMI Screening [facility] Start: 11-06-2024 Tobacco Screening Tobacco Screening [facility] Start: 10-19-2024 Adult BMI Screening Adult BMI Screening [facility] Start: 10-19-2024 Tobacco Screening Tobacco Screening [facility] Start: 10-08-2024 Adult BMI Screening Adult BMI Screening [facility] Start: 10-08-2024 Depression Screening Depression Screening [facility] Start: 10-08-2024 Tobacco Screening Tobacco Screening [facility] Start: 05-04-2024 Influenza vaccination [facility] Start: 04-18-2024 End: 04-18-2024 Follow-up encounter 04/18/2024 11:30 AM EDT [place] ([place]) Office Hematology/Oncology [address] [place] [address] Sharif Joseph MD [address] [place] [address] 3 month follow up lab Hematology/Oncolo gy Comment on above: 3 month follow up lab Start: 04-18-2024 End: 04-18-2024 Patient encounter procedure 04/18/2024 11:15 AM EDT Office Visit [facility] [address] [place] [address] 3 month follow up lab [facility] Comment on above: 3 month follow up lab Start: 03-20-2024 End: 12-19-2024 CBC W Auto Differential panel - Blood COMPLETE BLOOD COUNT AND DIFFERENTIAL Lab Routine Factor V Leiden (HCC) MTHFR mutation Primary hypercoagulable state (HCC) Iron deficiency anemia, unspecified iron deficiency anemia type Expected: 03/20/2024 (Approximate), Expires: 12/19/2024 [facility] Work Phone: Comment on above: Expected: 03/20/2024 (Approximate), Expi res: 12/19/2024 Start: 03-20-2024 End: 12-19-2024 Cobalamin (Vitamin B12) [Mass/volume] in Serum or Plasma VITAMIN B12 Lab Routine Factor V Leiden (HCC) MTHFR mutation Primary hypercoagulable state (HCC) Iron deficiency anemia, unspecified iron deficiency anemia type Expected: 03/20/2024 (Approximate), Expires: 12/19/2024 [facility] [facility] Work Phone: Comment on above: Expected: 03/20/2024 (Approximate), Expi res: 12/19/2024 Start: 03-20-2024 End: 12-19-2024 Comprehensive metabolic 2000 panel - Serum or Plasma COMPREHENSIVE METABOLIC PANEL Lab Routine Factor V Leiden (HCC) MTHFR mutation Primary hypercoagulable state (HCC) Iron deficiency anemia, unspecified iron deficiency anemia type Expected: 03/20/2024 (Approximate), Expires: 12/19/2024 [facility] Work Phone: Comment on above: Expected: 03/20/2024 (Approximate), Expi res: 12/19/2024 Start: 03-20-2024 End: 12-19-2024 Ferritin [Mass/volume] in Serum or Plasma FERRITIN Lab Routine Factor V Leiden (HCC) MTHFR mutation Primary hypercoagulable state (HCC) Iron deficiency anemia, unspecified iron deficiency anemia type Expected: 03/20/2024 (Approximate), Expires: 12/19/2024 [facility] Work Phone: Comment on above: Expected: 03/20/2024 (Approximate), Expi res: 12/19/2024 Start: 03-20-2024 End: 12-19-2024 Folate [Mass/volume] in Serum or Plasma FOLATE, SERUM Lab Routine Factor V Leiden (HCC) MTHFR mutation Primary hypercoagulable state (HCC) Iron deficiency anemia, unspecified iron deficiency anemia type Expected: 03/20/2024 (Approximate), Expires: 12/19/2024 [facility] Work Phone: Comment on above: Expected: 03/20/2024 (Approximate), Expi res: 12/19/2024 Start: 03-20-2024 End: 12-19-2024 Iron and Iron binding capacity panel - Serum or Plasma IRON AND TIBC Lab Routine Factor V Leiden (HCC) MTHFR mutation Primary hypercoagulable state (HCC) Iron deficiency anemia, unspecified iron deficiency anemia type Expected: 03/20/2024 (Approximate), Expires: 12/19/2024 [facility] Work Phone: Comment on above: Expected: 03/20/2024 (Approximate), Expi res: 12/19/2024 Start: 01-02-2024 End: 04-02-2024 Homocysteine [Moles/volume] in Serum or Plasma HOMOCYSTEINE Lab Routine Factor V Leiden (HCC) Gastrointestinal hemorrhage, unspecified gastrointestinal hemorrhage type Iron deficiency anemia, unspecified iron deficiency anemia type MTHFR mutation Primary hypercoagulable state (HCC) History of pulmonary embolism Expected: 01/02/2024 (Approximate), Expires: 04/02/2024 [facility] Work Phone: Comment on above: Expected: 01/02/2024 (Approximate), Expi res: 04/02/2024 Start: 12-25-2023 End: 12-25-2023 Patient encounter procedure 12/25/2023 9:30 AM EDT Off ice Visit [facility] [address] [place] [phone] Claribel Olson LISW [address] [place] [address] [facility] Start: 12-12-2023 End: 12-12-2023 Patient encounter procedure 12/12/2023 9:30 AM EDT Appointment [facility] [address] [place] [phone] [facility] Start: 12-11-2023 End: 12-11-2023 Patient encounter procedure 12/11/2023 9:30 AM EDT Off [facility] Visit [facility] [address] [phone] Claribel Olson LISW [address] [place] [phone] [facility] Start: 12-10-2023 End: 12-10-2023 Admission to same day surgery center 12/10/2023 12:30 PM EDT - 12/10/2023 1:00 PM EDT Surgery [facility] [address] [place] [phone] Collins Mejia, [address] [place] [address] [id number] ESOPHAGOGASTRODUODENOSCOPY DIAGNOSTIC [79763 (CPT )] [facility] Comment on above: ESOPHAGOGASTRODUODENOSCOPY DIAGNOSTIC [4 3235 (CPT )] Start: 12-10-2023 End: 12-10-2023 Esophagogastroduodenoscopy transoral diagnostic ESOPHAGOGASTRODUODENOSCOPY DIAGNOSTIC gastroesophageal reflux, nausea, vomiting 12/10/2023 12:30 PM EDT [facility] Start: 12-10-2023 Subsequent hospital visit by physician 12/10/2023 12:30 PM EDT Hospital Encounter [facility] [address] [place] [phone] Collins Mejia, DO [address] [place] [address] [phone] [facility] Start: 12-10-2023 End: 12-10-2023 Admission to same day surgery center 12/10/2023 7:30 AM EDT - 12/10/2023 8:00 AM EDT Surgery [facility] [address] [place] [phone] Collins Mejia, DO [address] [place] [address] [phone] ESOPHAGOGASTRODUODENOSCOPY DIAGNOSTIC [65091 (CPT )] [facility] Comment on above: ESOPHAGOGASTRODUODENOSCOPY DIAGNOSTIC [4 3235 (CPT )] Start: 12-10-2023 End: 12-10-2023 Esophagogastroduodenoscopy transoral diagnostic ESOPHAGOGASTRODUODENOSCOPY DIAGNOSTIC gastroesophageal reflux, nausea, vomiting 12/10/2023 7:30 AM EDT [facility] Start: 12-10-2023 Subsequent hospital visit by physician 12/10/2023 7:30 AM EDT Hospital Encounter [facility] [address] [place] [phone] Collins Mejia, DO [address] [place], [place] [phone] [facility] Start: 12-07-2023 End: 12-07-2023 Patient encounter procedure 12/07/2023 11:00 AM EDT Office Visit [facility] [address] [place] [address] [phone] Harley Thacker, RUG INSPECTOR-LINKING MACHINE OPERATOR [address], [place] [phone] [facility] Start: 11-28-2023 End: 11-28-2023 Patient encounter procedure 11/28/2023 10:15 AM EDT Office Visit [facility] [address] [phone] Pam Mittal MD [address] [place] [facility] [place] [phone] [facility] Start: 11-27-2023 End: 11-27-2023 Patient encounter procedure [facility] Start: 11-21-2023 End: 11-12-2024 Echo complete W/O contrast Echo complete W/O contrast Echocardiography Routine Preoperative clearance Abnormal echocardiogram History of pulmonary embolism Atrial mass Expected: 11/21/2023 (Approximate), Expires: 11/12/2024 [facility] Comment on above: Expected: 11/21/2023 (Approximate), Expi res: 11/12/2024 Start: 11-19-2023 End: 11-19-2023 Admission to same day surgery center 11/19/2023 12:15 PM EDT - 11/19/2023 12:45 PM EDT Surgery [facility] [address] [place] [address] Collins Mejia, [address] [place] [address] ESOPHAGOGASTRODUODENOSCOPY DIAGNOSTIC [74936 (CPT )] [facility] Comment on above: ESOPHAGOGASTRODUODENOSCOPY DIAGNOSTIC [4 7276 (CPT )] Start: 11-19-2023 End: 11-19-2023 Anesthesia consultation 11/19/2023 12:15 PM EDT Anesthesia Event [facility] [address] [facility] [place] [address] Mayra Raya, DO [address] [place] [address] [facility] Start: 11-19-2023 End: 11-19-2023 Esophagogastroduodenoscopy transoral diagnostic ESOPHAGOGASTRODUODENOSCOPY DIAGNOSTIC gastroesophageal reflux, nausea, vomiting 11/19/2023 12:15 PM EDT [facility] Start: 11-19-2023 Subsequent hospital visit by physician [facility] Start: 11-15-2023 End: 11-12-2024 XR Chest PA and Lateral X-ray chest 2 views Imaging Routine Preoperative clearance Expected: 11/15/2023 (Approximate), Expires: 11[facility]12/2024 [facility] Comment on above: Expected: 11/15/2023 (Approximate), Expi res: 11/12/2024 Start: 11-15-2023 End: 11-15-2023 Patient encounter procedure 11/15/2023 10:30 AM EDT Appointment [facility] [address] [place] [address] [facility] Start: 11-14-2023 End: 11-14-2023 Patient encounter procedure 11/14/2023 3:15 PM EDT Off ice Visit [facility] [address] [place] [address] [place] [address] Harley Thacker APRN-LINKING MACHINE OPERATOR [address] [place] [address], [place] [phone] [facility] Start: 11-14-2023 End: 11-13-2024 CT Chest WO and CT angiogram Coronary arteries W contrast IV CT angiogram chest Imaging Routine Abnormal echocardiogram History of DVT (deep vein thrombosis) History of pulmonary embolism Factor 5 Leiden mutation, heterozygous (CMS-HCC) 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 ([facility]-HCC) Chest discomfort Shortness of breath Atrial mass Expected: 11/14/2023, Expires: 11/13/2024 [facility] Comment on above: Expected: 11/14/2023, Expires: Start: 11-14-2023 End: 11-14-2023 Telemedicine consultation with patient 11/14/2023 9:30 AM EDT Telemedicine [facility] [address] [place] [phone] Claribel Olson LISW [address] [place] [address] [facility] Start: 11-09-2023 End: 11-09-2023 Patient encounter procedure 11/09/2023 9:45 AM EST Procedure visit [facility] [address] [place] [phone] [facility] Start: 11-07-2023 End: 11-07-2023 Anesthesia consultation 11/07/2023 11:59 PM EST Anesthesia Event [facility] [address] [place] [phone] Mayra Raya, DO [address] [place] [address] [facility] Start: 11-07-2023 End: 11-07-2023 Patient encounter procedure 11/07/2023 10:00 AM EST Office Visit [facility] [address] [place] [phone] Corine Catherine RUG INSPECTOR-LINKING MACHINE OPERATOR [address] [place] [address] [facility] Start: 10-30-2023 End: 10-30-2023 Patient encounter procedure 10/30/2023 9:30 AM EST Off ice Visit [facility] [address] [place] [phone] Claribel Olson LISW [address] [place] [phone] [facility] Start: 10-19-2023 End: 10-19-2023 Patient encounter procedure 10/19/2023 10:00 AM EST Office Visit [facility] [address] [place] [phone] Yashira Mi, RUG INSPECTOR-[address] [address] [facility] Start: 09-03-2023 Behavioral Health Screening Behavioral Health Screening [facility] Start: 09-03-2023 Depression Assessment Depression Assessment [facility] Start: 05-04-2023 Covid-19 Vaccine ( season) Covid-19 Vaccine ( season) [facility] Start: 05-04-2023 Influenza vaccination [facility] Start: 05-03-2022 Registered Recurring Registered Recurring [facility] - O/P Start: 04-21-2022 Registered Recurring Registered Recurring [facility] - O/P Start: 04-10-2022 [facility] Work Phone: Start: 04-10-2022 [facility] Work Phone: Start: 04-10-2022 OR Wound Debridement/I&D/Hydradenitis (Right) OR Wound Debridement/I&D/Hydradenitis (Right) [facility] Start: 04-10-2022 End: 04-10-2022 Admission to same day surgery center Departed Surgical Day Care [facility] [place] Start: 04-06-2022 End: 04-06-2022 Patient encounter procedure Departed Clinical [facility] Start: 03-13-2022 End: 03-13-2022 [facility] Work Phone: Start: 02-13-2022 End: 02-13-2022 [facility] Work Phone: Start: 05-04-2020 Influenza vaccination given Sequential Influenza Vacci ne (#1) [facility] Start: 11-17-2019 Screening for malignant neoplasm of cervix HPV Testing [facility] Start: 09-03-2019 DTaP,Tdap and Td Vaccines (8 - Td or Tdap) DTaP,Tdap and Td Vaccines (8 - Td or Tdap) [facility] Start: 09-03-2019 Urine microalbumin profile DTaP,Tdap,Td Vaccine (8 - T d or Tdap) [facility] Start: 06-10-2019 Tetanus vaccination Tetanus: Every 10yrs [facility] Start: 2010 Screening for malignant neoplasm of cervix [facility] Start: 11-17-2007 Adult BMI Follow Up Plan Adult BMI Follow Up Plan [facility] Start: 11-17-2007 Anxiety Screening Anxiety Screening [facility] Start: 11-17-2007 Depression Screening Depression Screening [facility] Start: 11-17-2007 Hepatitis C antibody, confirmatory test Hepatitis C Screening [facility] Start: 11-17-2007 Hepatitis C screening Hepatitis C Screening [facility] Start: 11-17-2007 HIV screening HIV Screening [facility] Start: 2004 HIV screening HIV Screening [facility] Start: 2001 Adolescent depression screening assessment Depression Screening (PHQ9) [facility] Start: 1992 History and physical examination, annual for health maintenance Wellness Visit [facility] Start: 1989 Glaucoma screening Diabetic Ophthalmology Exam [facility] Start: 1989 Screening for malignant neoplasm of cervix Pap Smear [facility] Calprotectin [Mass/m ass] in Stool Calprotectin stool Lab Routine Diarrhea, unspecified type 11/07/2023 10:38 PM EST [facility] End: 11-06-2024 Calprotectin stool Calprotectin stool Lab Routine Diarrhea, unspecified type 1 Occurrences starting 11/07/2023 until 11/06/2024 [facility] Comment on above: 1 Occurrences starting 11/07/2023 until 11/06/2024 End: 11-28-2024 CBC W Auto Differential panel - Blood CBC + DIFF Lab Routine Factor V Leiden (HCC) Gastrointestinal hemorrhage, unspecified gastrointestinal hemorrhage type Iron deficiency anemia, unspecified iron deficiency anemia type Every 3 weeks for 6 Occurrences starting 11/29/2023 until 11/28/2024 [facility] Work Phone: Comment on above: Every 3 weeks for 6 Occurrences starting 11/29/2023 until 11/28/2024 End: 11-28-2024 Cobalamin (Vitamin B12) [Mass/volume] in Serum or Plasma VITAMIN B12 BLOOD Lab Routine Factor V Leiden (HCC) Gastrointestinal hemorrhage, unspecified gastrointestinal hemorrhage type Iron deficiency anemia, unspecified iron deficiency anemia type Every 3 weeks for 6 Occurrences starting 11/29/2023 until 11/28/2024 [facility] Work Phone: Comment on above: Every 3 weeks for 6 Occurrences starting 11/29/2023 until 11/28/2024 End: 11-28-2024 Comprehensive metabolic 2000 panel - Serum or Plasma COMP METABOLIC PANEL Lab Routine Factor V Leiden (HCC) Gastrointestinal hemorrhage, unspecified gastrointestinal hemorrhage type Iron deficiency anemia, unspecified iron deficiency anemia type Every 3 weeks for 6 Occurrences starting 11/29/2023 until 11/28/2024 [facility] Work Phone: Comment on above: Every 3 weeks for 6 Occurrences starting 11/29/2023 until 11/28/2024 End: 12-06-2024 Cytopathology procedure, preparation of smear, genital source Pap Smear Pathology and Cytology Routine Wellness examination Encounter for Papanicolaou smear for cervical cancer screening 1 Occurrences starting 12/07/2023 until 12/06/2024 [facility] Work Phone: Comment on above: 1 Occurrences starting 12/07/2023 until 12/06/2024 End: 11-06-2024 Esophagogastroduodenoscopy EGD GI Routine Gastroesophageal reflux disease, unspecified whether esophagitis present Nausea and vomiting, unspecified vomiting type 1 Occurrences starting 11/07/2023 until 11/06/2024 [facility] Work Phone: Comment on above: 1 Occurrences starting 11/07/2023 until 11/06/2024 Esophagogastroduoden oscopy transoral diagnostic ESOPHAGOGASTRODUODENOSCOPY DIAGNOSTIC gastroesophageal reflux, nausea, vomiting [facility] End: 11-28-2024 Ferritin [Mass/volume] in Serum or Plasma FERRITIN BLD Lab Routine Factor V Leiden (HCC) Gastrointestinal hemorrhage, unspecified gastrointestinal hemorrhage type Iron deficiency anemia, unspecified iron deficiency anemia type Every 3 weeks for 6 Occurrences starting 11/29/2023 until 11/28/2024 [facility] Work Phone: Comment on above: Every 3 weeks for 6 Occurrences starting 11/29/2023 until 11/28/2024 End: 11-28-2024 Folate [Mass/volume] in Serum or Plasma FOLATE SERUM Lab Routine Factor V Leiden (HCC) Gastrointestinal hemorrhage, unspecified gastrointestinal hemorrhage type Iron deficiency anemia, unspecified iron deficiency anemia type Every 3 weeks for 6 Occurrences starting 11/29/2023 until 11/28/2024 [facility] Work Phone: Comment on above: Every 3 weeks for 6 Occurrences starting 11/29/2023 until 11/28/2024 End: 12-06-2024 High risk HPV w/yoshi High risk HPV w/yoshi Lab Routine Wellness examination Encounter for Papanicolaou smear for cervical cancer screening 1 Occurrences starting 12/07/2023 until 12/06/2024 [employer] Comment on above: 1 Occurrences starting 12/07/2023 until 12/06/2024 End: 11-28-2024 Iron and Iron binding capacity panel - Serum or Plasma IRON + TIBC Lab Routine Factor V Leiden (HCC) Gastrointestinal hemorrhage, unspecified gastrointestinal hemorrhage type Iron deficiency anemia, unspecified iron deficiency anemia type Every 3 weeks for 6 Occurrences starting 11/29/2023 until 11/28/2024 [facility] Work Phone: Comment on above: Every 3 weeks for 6 Occurrences starting 11/29/2023 until 11/28/2024 Patient Education [facility] Work Phone: Patient referral [facility] Work Phone: [facility] Immunizations Immunization Date Immunization Notes Care Provider Harriet lao 06-15-2014 influenza, seasonal, injectable Harley Thacker RUG INSPECTOR-LINKING MACHINE OPERATOR Work Phone: [facility] 06-15-2014 influenza virus vacc ine, unspecified formulation Harley Thacker RUG INSPECTOR-LINKING MACHINE OPERATOR Work Phone: [facility] 09-03-2009 diphtheria and tetan us toxoids, adsorbed for pediatric use Harley Thacker RUG INSPECTOR-LINKING MACHINE OPERATOR Work Phone: [facility] 06-10-2009 meningococcal polysaccharide (groups A, C, Y and W-135) diphtheria toxoid conjugate vaccine (MCV4P) [facility] 06-10-2009 tetanus toxoid, redu iam diphtheria toxoid, and acellular pertussis vaccine, adsorbed [facility] 06-09-2009 influenza virus vacc ine, whole virus Harley Thacker RUG INSPECTOR-LINKING MACHINE OPERATOR Work Phone: [facility] 06-09-2009 influenza, seasonal, injectable [facility] 06-15-2005 influenza virus vacc ine, whole virus Harley Thacker RUG INSPECTOR-LINKING MACHINE OPERATOR Work Phone: [facility] 06-15-2005 influenza, seasonal, injectable [facility] 12-14-2003 hepatitis B vaccine, pediatric or pediatric/adolescent dosage [facility] 12-14-2003 hepatitis B vaccine, unspecified formulation Sharif Joseph MD Work Phone: [facility] 08-26-2003 hepatitis B vaccine, pediatric or pediatric/adolescent dosage [facility] 08-26-2003 hepatitis B vaccine, unspecified formulation Sharif Joseph MD Work Phone: [facility] 03-30-2003 hepatitis B vaccine, pediatric or pediatric/adolescent dosage [facility] 03-30-2003 hepatitis B vaccine, unspecified formulation Sharif Joseph MD Work Phone: [facility] 02-22-1996 diphtheria, tetanus toxoids and acellular pertussis vaccine [facility] 02-22-1996 diphtheria, tetanus toxoids and acellular pertussis vaccine, unspecified formulation Harley Thacker RUG INSPECTOR-LINKING MACHINE OPERATOR Work Phone: [facility] 12-24-1995 measles, mumps and rubella virus vaccine [facility] 12-24-1995 poliovirus vaccine, inactivated [facility] 12-24-1995 trivalent poliovirus vaccine, live, oral Harley Thacker RUG INSPECTOR-LINKING MACHINE OPERATOR Work Phone: [facility] 05-14-1991 diphtheria, tetanus toxoids and acellular pertussis vaccine [facility] 05-14-1991 diphtheria, tetanus toxoids and pertussis vaccine Harley Thacker RUG INSPECTOR-LINKING MACHINE OPERATOR Work Phone: [facility] 05-14-1991 haemophilus influenz ae type b vaccine, conjugate unspecified formulation [facility] 05-14-1991 poliovirus vaccine, inactivated [facility] 05-14-1991 trivalent poliovirus vaccine, live, oral Harley Thacker RUG INSPECTOR-LINKING MACHINE OPERATOR Work Phone: [facility] 02-26-1991 measles, mumps and rubella virus vaccine [facility] 12-18-1990 haemophilus influenz ae type b vaccine, conjugate unspecified formulation [facility] 07-01-1990 diphtheria, tetanus toxoids and acellular pertussis vaccine [facility] 07-01-1990 diphtheria, tetanus toxoids and pertussis vaccine Harley Thacker RUG INSPECTOR-LINKING MACHINE OPERATOR Work Phone: [facility] 04-29-1990 diphtheria, tetanus toxoids and acellular pertussis vaccine [facility] 04-29-1990 diphtheria, tetanus toxoids and pertussis vaccine Harley Thacker RUG INSPECTOR-LINKING MACHINE OPERATOR Work Phone: [facility] 04-29-1990 poliovirus vaccine, inactivated [facility] 04-29-1990 trivalent poliovirus vaccine, live, oral Harley Thacker RUG INSPECTOR-LINKING MACHINE OPERATOR Work Phone: [facility] 02-27-1990 diphtheria, tetanus toxoids and acellular pertussis vaccine [facility] 02-27-1990 diphtheria, tetanus toxoids and pertussis vaccine Harley Thacker RUG INSPECTOR-LINKING MACHINE OPERATOR Work Phone: [facility] 02-27-1990 poliovirus vaccine, inactivated [facility] 02-27-1990 trivalent poliovirus vaccine, live, oral Harley Thacker RUG INSPECTOR-LINKING MACHINE OPERATOR Work Phone: [facility] Payers Date Payer Category Payer Medicaid [facility]ICAID [facility] [id number] 2020-Present [id number] 2019 Medicaid [id number] 2019 Medicare MEDICARE MEDICAR E PART A & B [id number] 2019-Present [place] [id number] 2019 Medicare [id number] [id number] 1989 Unknown [id number] 2.16.840.1.209043.3.579.2.903 1989 Unknown [id number] 2.16.840.1.485890.3.579.2.593 1989 Unknown [id number] 2.16.840.1.760082.3.579.2.593 1989 Unknown [id number] 2.16.840.1.477740.3.579.2.593 1989 Unknown [id number] 2.16.840.1.693914.3.579.2.593 1989 Unknown [id number] 2.16.840.1.853040.3.579.2.593 1989 Unknown [id number] 2.16.840.1.754384.3.579.2.593 1989 Unknown [id number] 2.16.840.1.972073.3.579.2.593 1989 Unknown [id number] .840.1.281826.3.579.2.593 1989 Unknown [id number] 2.16.840.1.636057.3.579.2.593 1989 Unknown [id number] 2.16.840.1.598202.3.579.2.593 1989 Unknown [id number] 2.16.840.1.070069.3.579.2.593 1989 Unknown [id number] .840.1.811515.3.579.2.593 1989 Unknown [id number] 2.16.840.1.769797.3.579.2.1286 1989 Unknown [id number] 2.16.840.1.923316.3.579.2.128 1989 Unknown [id number] 2.16.840.1.418800.3.579.2.1286 1989 Unknown [id number] 2.16.840.1.203050.3.579.2.1286 1989 Unknown [id number] 2.16.840.1.049978.3.579.2.1285 1989 Unknown [id number] 2.16.840.1.367688.3.579.2.1285 1989 Unknown [id number] 2.16.840.1.529199.3.579.2.1285 1989 Unknown [id number] 2.16.840.1.255915.3.579.2.1285 1989 Unknown [id number] 2.16.840.1.760576.3.579.2.1285 1989 Unknown [id number] 2.16.840.1.615929.3.579.2.1285 1989 Unknown [id number] 2.16.840.1.313808.3.579.2.1285 1989 Unknown [id number] 2.16.840.1.889991.3.579.2.1285 1989 Unknown [id number] 2.16.840.1.002266.3.579.2.1285 1989 Unknown [id number] 2.16.840.1.002806.3.579.2.1285 1989 Unknown [id number] 2.16.840.1.366609.3.579.2.1285 1989 Unknown [id number] 2.16.840.1.250291.3.579.2.1285 1989 Unknown [id number] 2.16.840.1.453040.3.579.2.1258 1989 Unknown [id number] 2.16.840.1.844483.3.579.2.1285 1989 Unknown [id number] 2.16.840.1.538241.3.579.2.1285 1989 Unknown [id number] [id number] 1989 Unknown [id number] 2.16.840.1.403215.3.579.2.1285 1989 Unknown [id number] 2.16.840.1.925772.3.579.2.1285 1989 Unknown [id number] 2.16.840.1.913872.3.579.2.1285 1989 Unknown [id number] 2.16.840.1.227815.3.579.2.1285 1989 Unknown [id number] 2.16.840.1.816063.3.579.2.1285 1989 Unknown [id number] 2.16.840.1.348019.3.579.2.1285 1989 Unknown [id number] 2..840.1.516771.3.579.2.1285 1989 Unknown [id number] 2.840.1.866230.3.579.2.1285 1989 Unknown [id number] 2..840.1.647994.3.579.2.1285 1989 Unknown [id number] 2.16.840.1.009188.3.579.2.1285 1989 Unknown [id number] 2.16.840.1.514161.3.579.2.1285 1989 Unknown [id number] 2.16.840.1.984091.3.579.2.1285 1989 Unknown [id number] 2.16.840.1.220345.3.579.2.1285 1989 Unknown [id number] 2.16.840.1.522366.3.579.2. 1989 Unknown [id number] 2.16.840.1.834785.3.579.2. 1989 Unknown [id number] 2.16.840.1.330334.3.579.2.196 1989 Unknown [id number] 2.16.840.1.705197.3.579.2.196 1960 Medicaid [id number] 1960 Medicare [id number] 1960 Self-pay [id number] Unknown [id number] 2.16.840.1.694572.3.579.2.531 Social History Date Type Detail Facility Start: 08-02-2020 End: 11-27-2023 Tobacco smoking status NHIS Former smoker [facility] Start: 08-02-2020 End: 11-29-2023 Cigarettes smoked current (pack per day) - Reported [facility] Start: 08-02-2020 End: 11-27-2023 Tobacco use and exposure Never used [facility] Start: 08-02-2020 Alcohol intake Lifetime non-drinker (finding) [facility] Start: 06-03-2020 History SDOH Alcohol Frequency 1 [facility] Start: 1990 Sex Assigned At Not on file [facility] Exposure to SARS-CoV -2 (event) Not sure [facility] Start: 1990 Sex Assigned At Female [facility] End: 09-03-2013 History of tobacco use Current smoker [facility] End: 09-03-2013 History of tobacco use Cigarette Smoker [facility] Start: 10-13-2023 End: 11-27-2023 Alcohol intake Current non-drinker of alcohol (finding) [facility] Start: 10-08-2023 End: 11-29-2023 Tobacco use panel [facility] How hard is it for y ou to pay for the very basics like food, housing, medical care, and heating Somewhat hard [facility] Adolescent depressio n screening assessment 14 [facility] Start: 11-11-2022 Gender identity Identifies as female gender (finding) [facility] Start: 11-11-2022 Sexual orientation Heterosexual (finding) [facility] History of tobacco use Passive smoker [facility] Goals Date Patient Goal Desired Activity /State Clinical Notes 03-01-2022 to 12-20-2023 Patient InstructionsAbSharif vides MD - 12/20/2023 10:00 AM CHERRI Pizarro - 12/07/2023 11:00 AM EDTPerioperative Nursing Note - Berkley Lake RN - 12/05/2023 2:30 PM EDT Note Date & Type Note Facility 12-20-2023 Note HNO ID: [id number] Author: SHARIF JOSEPH MD Service: ? Author Type: Physician Type: Progress Notes Filed: 12/22/2023 06:44 Note Text: NAME: Margaret Prieto CLINIC NO.: [id number] DATE OF SERVICE: December 20, 2023 (Jonelle) Some elements in this clinic note that are critical to medical decision making have been carefully reviewed and included from a prior clinic note dated: November 29, 2023 (Jonelle) Referring Provider: CHERRI Pelaez Additional Clinicians involved in Margaret Prieto's care: [...] extremity. 2013 - Pulmonary embolism Updated Visit, December 20, [...] including ECHO from 11/13/2022 and 11/23/2023 from [facility] which states -Echogenic density seen wihin the right atrium, likely represents a prominent Eustachian valve (more content not included)... [facility] 12-20-2023 Instructions Harley Toro - 12/20/2023 10:37 AM EDT RTC in 3 months Labs same day Start Arixtra 10mg daily Resume Foltx Resume iron tablets documented in this encounter [facility] 12-20-2023 History of Present illness Narrative Images from the original note were not included. NAME: Margaret Prieto CLINIC NO.: [id number] DATE OF SERVICE: December 20, 2023 (bhavanahi) Some elements in this clinic note that are critical to medical decision making have been carefully reviewed and included from a prior clinic note dated: November 29, 2023 (Jonelle) Referring Provider: Harley Thacker APRN-LINKING MACHINE OPERATOR Additional Clinicians involved in Margaret [...] including ECHO from 11/13/2022 and 11/23/2023 from [facility] which states -Echogenic density seen wihin the [...] on coumadin for about 2 years. In 2017 she was changed to xarelto per her [...] to consider starting Humira for Hiradenitis from [facility]. A CTA of the chest from [...] which included preparing to see the patient, aauk-et-ramx patient care, completing clinical documentation, obtaining and/or reviewing separately obtained history, performing a medically appropriate examination, counseling and educating the patient/family/caregiver, ordering medications, tests, or procedures, independently interpreting results (not separately reported), communicating results to the patient/family/caregiver, and care coordination (not separately reported). Sharif Joseph MD, CPE Hematology and Oncology Services Provided at: [place], [place] Scribe Attestation: This note was scribed [...] under my direction. CC: Harley Thacker [address] [address] documented in this encounter [facility] 12-07-2023 History of Present illness Narrative Images [...] by cardiology and hematology. She followed with [facility] hematology and reports although she was recommended [...] nursing note reviewed. Exam conducted with a agency legal counsel present (susana BARRIOS). Constitutional: General: She is [...] complication, without long-term current use of insulin ([facility]) - Hemoglobin A1c; Future - Diabetic foot exam performed Encounter for Papanicolaou smear for cervical cancer screening - Pap Smear; Future - High risk HPV w/yoshi; Future Hidradenitis suppurativa CHERRI Pelaez 12/07/23 1212 documented in this encounter [facility] 12-05-2023 Miscellaneous Notes Preoperative Education Checklist- General Surgery date: 12/10/23 Surgery time: 1230 Arrival time: 1030 1. Bring a photo ID and your insurance card with you the day of surgery. You will check in at the main lobby of the [facility]- registration desk is straight ahead as soon as you walk in. Tell them you are here for surgery. 2. If you have a Living Will/Durable Power of Toll Repairer [facility] that is not on [...] after you have bathed. 5. NO nail puerto rican/acrylic on at least one finger. If you are having a hand, wrist or foot surgery then all nail puerto rican and artificial/acrylic nails must be removed from [...] please call the Preadmission Testing office at [phone], Mon.-Fri. 7 a.m.-3 p.m. Leave a voicemail if needed. Pre-Surgery Instructions: Medication Instructions esomeprazole (NexIUM) 20 mg packet Take last dose day before procedure melatonin 10 mg tablet Take last dose day before procedure [facility] Nurse Note Preoperative Education Checklist- General Surgery date: 12/10/23 Surgery time: 1230 Arrival time: 1030 1. Bring a photo ID and your insurance card with you the day of surgery. You will check in at the main lobby of the [facility]- registration desk is straight ahead as soon as you walk in. Tell them you are here for surgery. 2. If you have a Living Will/Durable Power of Toll Repairer [facility] that is not on [...] after you have bathed. 5. NO nail puerto rican/acrylic on at least one finger. If you are having a hand, wrist or foot surgery then all nail puerto rican and artificial/acrylic nails must be removed from [...] please call the Preadmission Testing office at [phone], Mon.-Fri. 7 a.m.-3 p.m. Leave a voicemail if needed. Pre-Surgery Instructions: Medication Instructions esomeprazole (NexIUM) 20 mg packet Take last dose day before procedure melatonin 10 mg tablet Take last dose day before procedure [facility] 12-03-2023 Miscellaneous Notes I called Margaret but couldn't leave a voicemail - it's full. I called her emergency contact and left a message to contact her to call me to schedule her EGD. The medical clearance was received by cardiac / Dr. Mittal. Margaret returned by call & was scheduled on 12/10/23 for an EGD. documented in this encounter [facility] 12-03-2023 Telephone encounter Note I called Margaret but couldn't leave a voicemail - it's full. I called her emergency contact and left a message to contact her to call me to schedule her EGD. The medical clearance was received by cardiac / Dr. Mittal. [facility] 12-03-2023 Telephone encounter Note Margaret returned by call & was scheduled on 12/10/23 for an EGD. [facility] 11-29-2023 Note HNO ID: [id number] Author: SHARIF JOSEPH MD Service: ? Author Type: Physician Type: Progress Notes Filed: 12/05/2023 09:50 Note Text: NAME: Margaret Prieto CLINIC NO.: [id number] DATE OF SERVICE: November 29, 2023 (Jonelle) [...] including ECHO from 11/13/2022 and 11/23/2023 from [facility] which states -Echogenic density seen wihin the [...] cardiology for hx (more content not included)... [facility] 11-29-2023 Instructions Harley Toro - 11/29/2023 11:51 AM EDT Labs today RTC after endoscopy which I agree is appropriate at this time, especially while she is off of blood thinners Clear from my perspective to proceed with endoscopy with Dr. Mejia At return, repeat labs and will discuss resuming Foltx and resuming anticoagulation (will consider Arixtra 10mg daily) documented in this encounter [facility] 11-29-2023 History of Present illness Narrative Images from the original note were not included. NAME: Margaret Prieto [facility] NO.: [id number] DATE OF SERVICE: November 29, 2023 (Jonelle) [...] including ECHO from 11/13/2022 and 11/23/2023 from [facility] which states -Echogenic density seen wihin the [...] on coumadin for about 2 years. In 2017 she was changed to xarelto per her [...] to consider starting Humira for Hiradenitis from [facility]. A CTA of the chest from [...] Take 25 mg by mouth once daily. L92-zdosfohwzydx calcium-B6 (FOLTX) 2-1.13-25 mg tab Take 1 [...] which included preparing to see the patient, prpk-ur-pfpg patient care, completing clinical documentation, obtaining and/or reviewing separately obtained history, performing a medically appropriate examination, counseling and educating the patient/family/caregiver, ordering medications, tests, or procedures, independently interpreting results (not separately reported), communicating results to the patient/family/caregiver, and care coordination (not separately reported). Sharif Joseph MD, CPE Hematology and Oncology Services Provided at: [place], [place] Scribe Attestation: This note was scribed [...] under my direction. CC: Harley Thacker [address] [facility] [address] [facility] [id number] documented in this encounter [facility] 11-28-2023 History of Present illness Narrative Margaret Prieto Date of visit: 11/28/2023 Date of : 1990 Age: 33 y.o. 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[facility]) Pulmonary embolism ([facility]) Tachycardia Morbid obesity with BMI of 50.0-59.9, adult ([facility]) Gastroesophageal reflux disease Fatigue Essential hypertension Depression with anxiety History of diabetes mellitus, type II History of pulmonary embolism Familial hidradenitis suppurativa type 2 Factor V deficiency ([facility]) Vitamin D deficiency Vaginal odor Sore throat Bacterial vaginosis Upper respiratory infection, acute Bilateral otitis media with effusion Referral of patient History of thyroid nodule Hoarseness PE (pulmonary thromboembolism) ([facility]) Activated protein C resistance ([facility]) Anxiety Chronic pain COVID Diarrhea H/O partial thyroidectomy YULY (obstructive sleep apnea) Spondylosis Anxiety, generalized Depression Morbid obesity with BMI of 50.0-59.9, adult ([facility]) Factor 5 Leiden mutation, heterozygous ([facility]) Hidradenitis suppurativa Autoimmune thyroiditis Shalom's disease Hypothyroidism MTHFR (methylene THF reductase) deficiency and homocystinuria ([facility]) Diabetes mellitus ([facility]) Insulin resistance Pulmonary embolism ([facility]) Vitamin D insufficiency Acute pulmonary embolism ([facility]) Community acquired pneumonia, unspecified laterality Human metapneumovirus (hMPV) pneumonia Recurrent acute deep vein thrombosis (DVT) of lower extremity ([facility]) Hypercoagulable state ([facility]) History of DVT (deep vein thrombosis) Allergies [...] Anxiety Arthritis Back pain Bipolar affective disorder ([facility]) Depression DVT (deep venous thrombosis) ([facility]) Factor V deficiency ([facility]) MTHFR GERD (gastroesophageal reflux disease) LEE (headache) Shalom's disease Hidradenitis suppurativa HL (hearing loss) Hypercholesteremia Hypertension Hypothyroidism Migraine MTHFR mutation Obesity Pneumonia I get it off an on Psychiatric problem PTSD (post-traumatic stress disorder) Pulmonary emboli ([facility]) Pulmonary embolism ([facility]) Visual impairment No data recorded No data [...] FOLLOW UP No follow-ups on file. PCP: Harley Thacker, RUG INSPECTOR-LINKING MACHINE OPERATOR Referring Physician: Harley Thacker, ANDREW-LINKING MACHINE OPERATOR [address] [place] [address], [place] [address] documented in this encounter [facility] 11-27-2023 Miscellaneous Notes ATTEMPTED TO PHONE PT TO REMIND OF APPT SCHEDULED FOR 11/28/2023, DENNY FULL. documented in this encounter [facility] 11-27-2023 Telephone encounter Note ATTEMPTED TO PHONE PT TO REMIND OF APPT SCHEDULED FOR 11/28/2023, DENNY FULL. [facility] 11-27-2023 Miscellaneous Notes Progress notes: Chief Complaint: [...] Visit via Real-time Synchronous Audiovisual Provider Location: [facility] [address] [address] Patient Location: Patient's home Video Visit Consent [...] that there are some limitations compared to iciq-qk-qvvr evaluations. The patient consented to the presence of additional virtual and/or in-person participants. We elected to proceed. Goals, Objectives & Interventions Goals, Objectives, Interventions CHERRI Martinez 11/27/23 1019 documented in this encounter [employer] [facility] 11-27-2023 Progress note Formatting of t his [...] Visit via Real-time Synchronous Audiovisual Provider Location: [facility] [address] [address] Patient Location: Patient's home Video [...] that there are some limitations compared to saxs-tx-jeny evaluations. The patient consented to the presence of additional virtual and/or in-person participants. We elected to proceed. Goals, Objectives & Interventions Goals, Objectives, Interventions CHERRI Martinez 11/27/23 1019 [employer] 11-27-2023 Miscellaneous Notes Outpatient Behavioral Health Progress [...] that there are some limitations compared to qlbl-qy-colj evaluations. Problem Statement #1: Anxiety Goal: To [...] Signature: ELLIOT Baxter documented in this encounter [employer] [facility] 11-27-2023 Progress note Formatting of t his [...] that there are some limitations compared to qzub-xw-szmz evaluations. Problem Statement #1: Anxiety Goal: To [...] session on 12/11/23. Electronic Signature: ELLIOT Baxter [facility] 11-14-2023 History of Present illness Narrative [...] today at patient request for Hematology at [facility] locally. She also has history of tachycardia, [...] echo done prior to visit 01/2023 at [facility] was told that she has a mass [...] nursing note reviewed. Exam conducted with a agency legal counsel present. Constitutional: Appearance: Normal appearance. HENT: Head: [...] including ECHO from 11/13/2022 and 11/23/2023 from [facility] which states -Echogenic density seen wihin the [...] abnormal ECHO. 1.) Hematology consult placed at [facility] per pt request. 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 swelling. EFFUSION:None visible. OTHER: Negative. IMPRESSION: No acute abnormality Electronically authenticated by: KATYA BECK Date: 2022-06-05 16:27 [facility] 06-01-2022 Note CONSULTATION CONSULTATION DATE: 06/01/2022 HISTORY [...] appointment being tomorrow. She is on Rexulti, Baltimore 5/325 b.i.d., gabapentin 300 mg b.i.d., Cymbalta, [...] procedure. She agrees to move forward. [facility] 03-01-2022 Note CONSULTATION CONSULTATION DATE: 03/02/2022 This is a 31-year-old female returning to the clinic for a 3-month follow-up for her chronic pain syndrome and chronic lower back pain and bilateral hips. The patient does have hidradenitis suppurativia and is currently under the care of Dr. Carlson in the [facility] in [place]. She has been having increasing amounts of boils which are causing a lot of pain. He has recently removed four wounds and has one that is deeply patched. It was found that she had a massive infection and is currently on Levaquin and Flagyl. Dr. Carlson has placed her on Baltimore 5/325 b.i.d. which is the same medication dose and frequency as our prescription. The patient has put our prescription on hold and is using the wound clinic only at this time. She is currently working with a popped corn oven attendant in [place] and considering Remicade infusions. The patient does [...] which is beneficial. In addition to the Baltimore, she takes gabapentin 300 mg b.i.d., Baclofen [...] her to discuss with Dr. Carlson at [place] regarding continuing the [place] for her. We will see her in three months' time unless otherwise indicated, or if she prefers to stick with Dr. Carlson at this time, that is fine as well. The patient agrees with the plan of care. [facility] Signed and Approved by: ACE CERVANTES . 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 ([facility]) Bipolar 1 disorder ([facility]) Insulin resistance Other abnormal glucose History of prediabetes History of insulin resistance Gastroesophageal reflux disease, unspecified whether esophagitis present Nausea and vomiting, unspecified vomiting type Hidradenitis suppurativa Hidradenitis Migraine without aura and without status migrainosus, not intractable Prediabetes Other abnormal glucose [facility] Generalized anxiety disorder- Primary Bipolar depression ([facility]) Bipolar I disorder, most recent episode (or current) depressed, unspecified Post traumatic stress disorder (PTSD) Attention deficit hyperactivity disorder, combined type Attention deficit disorder with hyperactivity [facility] Diagnosis Post traumatic stress disorder (PTSD)- Primary [facility] Diagnosis Gastroesophageal reflux disease, unspecified whether esophagitis present- Primary Nausea and vomiting, unspecified vomiting type Diarrhea, unspecified type Morbid obesity ([facility]) Morbid obesity Preop examination- Primary Unspecified pre-operative examination MTHFR (methylene THF reductase) deficiency and homocystinuria ([facility]) Disturbances of sulphur-bearing amino-acid metabolism BMI 60.0-69.9, adult ([facility]) Hypertension, unspecified type Blood clotting disorder ([facility]) Other and unspecified coagulation defects [facility] Diagnosis Preop examination- Primary Unspecified pre-operative examination MTHFR (methylene THF reductase) deficiency and homocystinuria ([facility]) Disturbances of sulphur-bearing amino-acid metabolism BMI 60.0-69.9, adult ([facility]) Hypertension, unspecified type Blood clotting disorder ([facility]) Other and unspecified coagulation defects Preop examination Unspecified pre-operative examination MTHFR (methylene THF reductase) deficiency and homocystinuria ([facility]) Disturbances of sulphur-bearing amino-acid metabolism BMI 60.0-69.9, adult ([facility]) Hypertension, unspecified type [facility] Diagnosis Preoperative clearance- Primary Unspecified pre-operative examination Abnormal echocardiogram Nonspecific (abnormal) findings on radiological and other examination of other intrathoracic organs History of DVT (deep vein thrombosis) History of pulmonary embolism Personal history of venous thrombosis and embolism Factor 5 Leiden mutation, heterozygous ([facility]) 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 ([facility]) Chest discomfort Other chest pain Shortness of breath Atrial mass Swelling, mass, or lump in chest Gastroesophageal reflux disease, unspecified whether esophagitis present [facility] Diagnosis Post traumatic stress disorder (PTSD)- Primary Generalized anxiety disorder documented [facility] Diagnosis Bipolar depression ([facility])- Primary Bipolar I disorder, most recent episode (or current) depressed, unspecified Post traumatic stress disorder (PTSD) Generalized anxiety disorder Attention deficit hyperactivity disorder, combined type Attention deficit disorder with hyperactivity documented [facility] encounter [facility] Diagnosis Generalized anxiety disorder- Primary documented [facility] Diagnosis Essential hypertension- Primary Unspecified essential hypertension documented [facility] encounter [facility]* Diagnosis Factor V Leiden (HCC)- Primary Primary hypercoagulable state Gastrointestinal hemorrhage, unspecified gastrointestinal hemorrhage type Iron deficiency anemia, unspecified iron deficiency anemia type MTHFR mutation Disturbances of sulphur-bearing amino-acid metabolism Primary hypercoagulable state (HCC) Primary hypercoagulable state History of pulmonary embolism Personal history of pulmonary embolism [facility] Diagnosis Wellness examination- Primary Shalom's disease Chronic lymphocytic thyroiditis Controlled type 2 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 complication, without long-term current use of insulin ([facility]) Encounter for Papanicolaou smear for cervical cancer screening Hidradenitis suppurativa Hidradenitis documented [facility] this encounter [facility]* Diagnosis Primary hypercoagulable state (HCC)- Primary Primary hypercoagulable state Factor V Leiden (HCC) Primary hypercoagulable state MTHFR mutation Disturbances of sulphur-bearing amino-acid metabolism Iron deficiency anemia, unspecified iron deficiency anemia type 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 documented [facility] this encounter [facility]* Attachments The following attachments cannot be sent through Care Everywhere. * Bleeding Precautions (Nauruan) documented in this [facility] SystemInstructionsNot on file documented in this encounterProRussell[facility] SystemInstructionsNot on file documented in this encounterProMedine Health SystemInstructionsNot on file documented in this encounterProMedieleni Health SystemInstructionsNot on file documented in this encounterProMedieleni Health SystemInstructionsNot on file documented in this encounterProMedieleni Health SystemInstructionsNot on file documented in this encounterProRiverside Methodist Hospitaleleni Health SystemInstructionsNot on file documented in this encounterProRiverside Methodist Hospitaleleni Health SystemInstructionsNot on file documented in this encounterProRiverside Methodist Hospitaleleni Health SystemInstructionsNot on file documented in this encounterProRiverside Methodist Hospitaleleni Health SystemInstructionsNot on file documented in this encounterProRiverside Methodist Hospitaleleni Health SystemInstructionsNot on file documented in this encounterTwin City HospitalShopflick SystemInstructionsNot on file documented in this encounterTwin City HospitalShopflick System Instructions * Patient Instructions* Corine Best MA - 08/02/2020 1:49 PM EST YOU DO NOT HAVE LUPUS START CPAP LOSE WEIGHT TAKE VITAMIN D3 1,000 UNITS DAILY documented in this encounter History of Present Illness * Santiago Shell MD - 08/02/2020 1:32 PM EST I had the pleasure of seeing Margaret Prieto in consultation at [facility] [address] [place] [phone] for evaluation of lupus Elizabeth Oneill MD;Elizabeth [...] really depressed about the situation. She gets [place] on a as needed basis for pain.. [...] file Gets together: Not on file Attends restorationism service: Not on file Active member of [...] SSA SSB antibody negative Qureshi antibody negative, RECEIVING INSPECTOR antibody negative, antihistone antibodies borderline positive at [...] Rheumatology Note: This dictation was generated using [employer] voice recognition software. 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 Advance Directives and Livin g [...] 10/31/2021 1:52 PM Summary Purpose Family History Relationship Condition Age [...] without status migrainosus, not intractable Selena Thackerra [facility] [address] [place] [address], [place] [address] Referral ID Status Reason Start Date Expiration Date Visits Re quested Visits Authorized [id number] Closed 1 1 Specialty Diagnoses / Procedures Referred By Jenyac t Referred To Contact Dermatology Diagnoses Hidradenitis suppurativa Uyen Thackerdenver [facility] [address] [place] [address], [place] [address] Stephani Lucas MD [address] [facility] [place], [address] [address] Referral ID Status Reason Start Date Expiration Date Visits Requested Visits Authorized [id number] Pending Review Specialty Services Required 10/08/2023 10/07/2024 1 1 Specialty Diagnoses / Procedures Referred By Jenyac t Referred To Contact General Surgery Diagnoses Gastroesophageal reflux disease, unspecified whether esophagitis present Nausea and vomiting, unspecified vomiting type ThackerHarley [facility] [address] [place] [address], [place] [address] [facility] Gen Surg Grillis Stuart [address] [place] [address] Referral ID Status Reason Start Date Expiration Date Visits Requested Visits Authorized [id number] Authorized Specialty Services Required 10/08/2023 10/07/2024 1 1 Specialty Diagnoses / Procedures Referred By Contac t Referred To Contact Psychiatry Diagnoses Bipolar 1 disorder ([facility]) Thacker, Harley, [facility] [address] [place] [address], [place] [address] Yashira Mi, RUG INSPECTOR-LINKING MACHINE OPERATOR [address] [facility] [address] [place] [address] [place] [address] Referral ID Status Reason Start Date Expiration Date Visits Requested Visits Authorized [id number] Pending Review Specialty Services Required 10/08/2023 10/07/2024 1 1 Specialty Diagnoses / Procedures Referred By Contac t Referred To Contact Medical Oncology / Hematology and Oncology Diagnoses History of pulmonary embolism History of DVT (deep vein thrombosis) Factor 5 Leiden mutation, heterozygous (CMS-HCC) 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) Harley Thacker APRN-LINKING MACHINE OPERATOR [address] [place] [phone] [facility] [place] [address] [place] [phone] Referral ID Status Reason Start Date Expiration Date Visits Requested Visits Authorized [id number] Pending Review Specialty Services Required 10/08/2023 10/07/2024 1 1 Specialty Diagnoses / Procedures Referred By Contac t Referred To Contact Diagnoses Preop examination MTHFR (methylene THF reductase) deficiency and homocystinuria (CMS-HCC) BMI 60.0-69.9, adult (CMS-HCC) Hypertension, unspecified type Procedures ECG 12 lead Katya Denise MD [address] [place] [phone] Referral ID Status Reason Start Date Expiration Date V isits Requested Visits Authorized [id number] Pending Review 11/07/2023 11/06/2024 1 1 Specialty Diagnoses / Procedures Referred By Contac t Referred To Contact Radiology Diagnoses Abnormal echocardiogram History of DVT (deep vein thrombosis) History of pulmonary embolism Factor 5 Leiden mutation, heterozygous (CMS-HCC) 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) Chest discomfort Shortness of breath Atrial mass Procedures CT angiogram chest Harley Thacker APRN-LINKING MACHINE OPERATOR [address] [place] [phone] Referral ID Status Reason Start Date Expiration Date V isits Requested Visits Authorized [id number] Pending Review 11/14/2023 11/13/2024 1 1 Specialty Diagnoses / Procedures Referred By Contac t Referred To Contact Hematology Diagnoses History of DVT (deep vein thrombosis) History of pulmonary embolism Factor 5 Leiden mutation, heterozygous ([facility]) 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 ([facility]) Harley Thacker APRN-[facility] [address] [place] [phone] Sharif Joseph MD [address] [place] [address] [place] [address] Referral ID Status Reason Start Date Expiration Date Visits Requested Visits Authorized [id number] Pending Review Specialty Services Required 11/14/2023 11/13/2024 1 1 Specialty Diagnoses / Procedures Referred By Contac t Referred To Contact Diagnoses Preoperative clearance Abnormal echocardiogram History of pulmonary embolism Atrial mass Procedures Echo complete W/O contrast Harley Thacker APRN-[facility] [address] [place] [phone] [facility] [address] [place] [address] Phone: [phone] Referral ID Status Reason Start Date Expiration Date V isits Requested Visits Authorized [id number] Pending Review 11/14/2023 11/13/2024 1 1 Additional Source Comments Reason for Visit (unrecogniz ed section and content) Reason Comments Consult LUPUS Status Reason Specialty Diagnoses / Procedures Referred By Contact Referred To Contact Closed Rheumatology Diagnoses Lupus ([facility]) Elizabeth Oneill MD [address] [facility] [place] [address] [place] [address] Santiago Shell MD [address] [place] [phone] Reason Comments Establish Care Reason Comments New Patient Specialty Diagnoses / Procedures Referred By Contac t Referred To Contact Psychiatry Diagnoses Bipolar 1 disorder ([facility]) Harley Thacker APRN-[facility] [address] [place] [phone] Yashira Mi RUG INSPECTOR-LINKING MACHINE OPERATOR [address] [facility] [address] [place] [address] Referral ID Status Reason Start Date Expiration Date Visits Requested Visits Authorized [id number] Pending Review Specialty Services Required 10/08/2023 10/07/2024 1 1 Reason Onset Date Comments Med Refill 10/23/2023 Reason Comments Heartburn GERD, vomiting, diar luis, blood in stool, nausea, referred by Harley Thacker CNP Specialty Diagnoses / Procedures Referred By Toyin arrieta Referred To Contact General Surgery Diagnoses Gastroesophageal reflux disease, unspecified whether esophagitis present Nausea and vomiting, unspecified vomiting type Harley Thacker APRN-LINKING MACHINE OPERATOR [address] [place] [phone] [facility] Grillis Stuart [address] [place] [address] Referral ID Status Reason Start Date Expiration Date V isits Requested Visits Authorized [id number] Closed Specialty Services Required 10/08/2023 10/07/2024 1 1 Reason Comments Pre-op Exam Surgery scheduled fo r November 19, 2023. Reason Comments PTSD Reason Comments Anxiety Reason Comments Follow-up EST PT F/U EARLY SWE LLING, COUGH SCHED VIA MY CHART L/S MS Reason Comments wellness INFORMATION SOURCE (unrecogn ized section and content) DATE CREATED AUTHOR 08/02/2020 [facility] DATE CREATED AUTHOR AUTHOR'S ORGANIZ ATION 10/30/2021 [facility] DATE CREATED AUTHOR AUTHOR'S ORGANIZ ATION 10/07/2022 [facility] DATE CREATED AUTHOR AUTHOR'S ORGANIZ ATION 12/07/2022 [facility] DATE CREATED AUTHOR AUTHOR'S ORGANIZ ATION 11/11/2023 [facility] DATE CREATED AUTHOR AUTHOR'S ORGANIZ ATION 12/23/2023 [facility] DATE CREATED AUTHOR AUTHOR'S ORGANIZ ATION 12/25/2023 [facility] DATE CREATED AUTHOR AUTHOR'S ORGANIZ ATION 02/28/2024 [facility] EPIC DATE CREATED AUTHOR AUTHOR'S ORGANIZ ATION 03/28/2024 [facility] DATE CREATED AUTHOR AUTHOR'S ORGANIZ ATION 03/29/2024 [facility] Care Teams (unrecognized sec tion and content) [...] Flanagan PA-C Primary Care Provider Activ e Food Service Steward Relationship Specialty Start Date End Date Harley Thacker APRN-[facility] [address] [place] [phone] PCP - General Nurse Practitioner 10/08/23 Nikolas Parrish CNP Nurse Practitioner Family Medicine 11/24/22 Food Service Steward Relationship Specialty Start Date End Date [facility] [address] [place] [phone] PCP - General Nurse Practitioner 10/08/23 Nikolas Parrish CNP Nurse Practitioner Family Medicine 11/24/22 Food Service Steward Relationship Specialty Start Date End Date Harley Thakcer APRN-LINKING MACHINE OPERATOR [address] [place], [place] [phone] PCP - General Nurse Practitioner 10/08/23 Nikolas Shamo LINKING MACHINE OPERATOR Nurse Practitioner Family Medicine 11/24/22 Food Service Steward Relationship Specialty Start Date End Date Harley Thacker APRN-LINKING MACHINE OPERATOR [address] [place] [address], [place] [facility] [place] [phone] PCP - General Nurse Practitioner 10/08/23 Nikolas Shamo LINKING MACHINE OPERATOR Nurse Practitioner Family Medicine 11/24/22 Food Service Steward Relationship Specialty Start Date End Date Harley Tahcker APRN-LINKING MACHINE OPERATOR [address] [place] [address], [place] [phone] PCP - General Nurse Practitioner 10/08/23 Nikolas Shamo LINKING MACHINE OPERATOR Nurse Practitioner Family Medicine 11/24/22 Food Service Steward Relationship Specialty Start Date End Date Kedar Harley RUG INSPECTOR-[facility] [address] [place] [address], [place] [phone] PCP - General Nurse Practitioner 10/08/23 Nikolas Sham LINKING MACHINE OPERATOR Nurse Practitioner Family Medicine 11/24/22 Food Service Steward Relationship Specialty Start Date End Date Kedar Harley RUG INSPECTOR-LINKING MACHINE OPERATOR [address] [place] [place], [place] [phone] PCP - General Nurse Practitioner 10/08/23 Nikolas Shamo LINKING MACHINE OPERATOR Nurse Practitioner Family Medicine 11/24/22 Food Service Steward Relationship Specialty Start Date End Date Harley Thacker RUG INSPECTOR-LINKING MACHINE OPERATOR [address] [place], [place] [phone] PCP - General Nurse Practitioner 10/08/23 Nikolaskurt Acunajolene LINKING MACHINE OPERATOR Nurse Practitioner Family Medicine 11/24/22 Food Service Steward Relationship Specialty Start Date End Date Kedar RICKY SandovalN-LINKING MACHINE OPERATOR [address] [place] [address], [facility] [place] [phone] PCP - General Nurse Practitioner 10/08/23 [facility] Nurse Practitioner Family Medicine 11/24/22 Food Service Steward Relationship Specialty Start Date End Date KedarUyenHarley, RUG INSPECTOR-[facility] [address] [place] [address], [facility] [place] [phone] PCP - General Nurse Practitioner 10/08/23 Nikolas Kalpanajolene LINKING MACHINE OPERATOR Nurse Practitioner Family Medicine 11/24/22 Food Service Steward Relationship Specialty Start Date End Date Thacker, Harley [address] [address] PCP - General Family Medicine 11/16/23 Food Service Steward Relationship Specialty Start Date End Date KedarUyenHarley RUG INSPECTOR-[facility] [address] [place] [address], [facility] [place] [place] [phone] PCP - General Nurse Practitioner 10/08/23 [facility]olaskurt [facility] Nurse Practitioner Family Medicine 11/24/22 Food Service Steward Relationship Specialty Start Date End Date Harley Thacker [address] [address] PCP - General Family Medicine 11/16/23 Food Service Steward Relationship Specialty Start Date End Date ThackerUyenHarley RUG INSPECTOR-LINKING MACHINE OPERATOR [address] [place], [place] [phone] PCP - General Nurse Practitioner 10/08/23 Nikolas Parrish LINKING MACHINE OPERATOR Nurse Practitioner Family Medicine 11/24/22 Food Service Steward Relationship Specialty Start Date End Date Kedar RICKY SandovalN-LINKING MACHINE OPERATOR [address] [place] [phone] PCP - General Nurse Practitioner 10/08/23 Nikolas Parrish LINKING MACHINE OPERATOR Nurse Practitioner Family Medicine 11/24/22 Food Service Steward Relationship Specialty Start Date End Date Harley Thacker APRN-LINKING MACHINE OPERATOR [address] [place] [place], [place] [address] PCP - General Nurse Practitioner 10/08/23 Nikolas Parrish CNP Nurse Practitioner Family Medicine 11/24/22 Food Service Steward Relationship Specialty Start Date End Date Kedar Harley [address] [place] [phone] PCP - General Family Medicine 11/16/23 Food Service Steward Relationship Specialty Start Date End Date Thacker Harleydenver Wise CNP PCP - General Family Medicine 11/16/23 Food Service Steward Relationship Specialty Start Date End Date ThackerHarley CNP PCP - General Family Medicine 11/16/23 Goals [...] or prosecute any alcohol or drug abuse patient.[facility] CenterIn the event this information is protected by the Federal Confidentiality of Alcohol and Drug Abuse Patient Records regulations: The Federal rules restrict any use of the information to criminally investigate or prosecute any alcohol or drug abuse patient.[facility] CenterIn the event this information is protected by the Federal Confidentiality of Alcohol and Drug Abuse Patient Records regulations: The Federal rules restrict any use of the information to criminally investigate or prosecute any alcohol or drug abuse patient.[facility] CenterIn the event this information is protected by the Federal Confidentiality of Alcohol and Drug Abuse Patient Records regulations: The Federal rules restrict any use of the information to criminally investigate or prosecute any alcohol or drug abuse patient.[facility] CenterIn the event this information is protected by the Federal Confidentiality of Alcohol and Drug Abuse Patient Records regulations: The Federal rules restrict any use of the information to criminally investigate or prosecute any alcohol or drug abuse patient.[facility] FOR RECORDS PERTAINING TO PATIENTS WHO ARE [...] BE BASED ON THE PRIMARY CLINICAL RECORDS. [facility]. provides no warranty or guarantee of the accuracy or completeness of information in this document.
--- NOTE | 2024-04-03 13:51 | PM.CN ---
Consult Note: HPI Data of Consult Patient: known to practice within the last 3 years Consult date: 03/10/24 Requesting Physician: Brenda Gonzalez NP Primary Care Provider: Nikolas Kovacs NP Consult Narrative Reason for consult: low back, bilateral leg pain Narrative: 33yof who presents for assessment. continues to have worsening low back and bilateral leg pain and weakness. imaging reviewed, which is significant for multilevel stenosis, worst noted at l5-s1. continues to engage in a series of provider directed home exercises, which have not helped >6 weeks. uses Tylenol #3 gabapentin, flexeril. denies adverse med side effects. recent bilateral l5 SNRB provided >80% improvement for 1-2 weeks and less than 50% improvement ongoing cc:: CC: Brenda Gonzalez NP Review of Systems ROS Status of ROS 10 or more systems reviewed and unremarkable except as noted in history and below Musculoskeletal Reports: back pain and extremity pain PFSH [facility] Medical History Hidradenitis suppurativa ?L73.2 - Hidradenitis suppurativa (ICD-10) Abscess ?L02.91 - Cutaneous abscess, unspecified (ICD-10) Loud snoring ?R06.83 - Snoring (ICD-10) Sleep apnea ?G47.30 - Sleep apnea, unspecified (ICD-10) Osteoarthritis ?M19.90 - Unspecified osteoarthritis, unspecified site (ICD-10) [place]-Schlatter's disease ?M92.529 - Juvenile osteochondrosis of tibia tubercle, unspecified leg (ICD-10) Anemia ?D64.9 - Anemia, unspecified (ICD-10) Heartburn ?R12 - Heartburn (ICD-10) Anxiety ?F41.9 - Anxiety disorder, unspecified (ICD-10) Acid reflux ?K21.9 - Gastro-esophageal reflux disease without esophagitis (ICD-10) Factor V Leiden ?D68.51 - Activated protein C resistance (ICD-10) 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 - Autoimmune thyroiditis (ICD-10) Pulmonary embolism ?I26.99 - Other pulmonary embolism without acute cor pulmonale (ICD-10) High cholesterol ?E78.00 - Pure hypercholesterolemia, unspecified (ICD-10) Hypertension ?I10 - Essential (primary) hypertension (ICD-10) Irregular heart beat ?I49.9 - Cardiac arrhythmia, unspecified (ICD-10) Chest pain ?R07.9 - Chest pain, unspecified (ICD-10) Surgical History Hx of cholecystectomy ?Z90.49 - Acquired absence of other specified parts of digestive tract (ICD-10) H/O partial thyroidectomy ?E89.0 - Postprocedural hypothyroidism (ICD-10) Joanna teeth extracted ?K08.409 - Partial loss of teeth, unspecified cause, unspecified class (ICD-10) Hx of tonsillectomy ?Z90.89 - Acquired absence of other organs (ICD-10) History of appendectomy ?Z90.49 - Acquired absence of other specified parts of digestive tract (ICD-10) Social History Smoking status: Current every day smoker Meds Home Medications and Allergies Home Medications ?Medication ?Instructions ?Recorded ?Confirmed ?Type atomoxetine 60 mg capsule 60 mg PO QDAY 02/01/23 03/24/24 History gabapentin 300 mg capsule 300 mg PO Q8H 02/01/23 03/24/24 History isosorbide mononitrate 10 mg tablet 15 mg PO QDAY 02/01/23 03/24/24 History metoprolol tartrate 50 mg tablet 50 mg PO BID 02/01/23 03/24/24 History (Lopressor) omeprazole 20 mg capsule,delayed 20 mg PO BID 02/01/23 03/24/24 History release rimegepant 75 mg disintegrating 75 mg PO QDAY PRN migraine headache 02/01/23 03/24/24 History tablet (Nurtec ODT) spironolactone 25 mg tablet 25 mg PO QDAY 02/01/23 03/24/24 History acetaminophen 300 mg-codeine 30 mg 1 tab PO BID PRN pain #60 tabs 03/10/24 03/24/24 Rx tablet cyclobenzaprine 10 mg tablet 10 mg PO TID PRN muscle spasm #90 03/10/24 03/24/24 Rx tabs ferrous sulfate 325 mg (65 mg 325 mg PO DAILY 03/10/24 03/24/24 History iron) tablet (Feosol) fondaparinux 10 mg/0.8 mL 10 mg subcut DAILY 03/10/24 03/24/24 History subcutaneous solution syringe hydrochlorothiazide 25 mg tablet 25 mg PO DAILY 03/10/24 03/24/24 History secukinumab 150 mg/mL subcutaneous 300 mg subcut .QMONTH 03/10/24 03/24/24 History syringe (Cosentyx 300 mg/2 Syringes () Allergies Allergy/AdvReac Type Severity Reaction Status Date / Time amoxicillin Allergy Severe Unknown Verified 03/24/24 10:25 cefaclor [From Ceclor] Allergy Severe Unknown Verified 03/24/24 10:25 ciprofloxacin [From Cipro] Allergy Severe Hives Verified 03/24/24 10:25 Estrogens Allergy Severe Unknown Verified 03/24/24 10:25 Sulfa (Sulfonamide Allergy Severe Hives Verified 03/24/24 10:25 Antibiotics) tetanus and diphtheria Allergy Severe Unknown Verified 03/24/24 10:25 toxoids Exam Narrative Exam Narrative: Psych-alert and oriented x 3. Attentive and appropriate, constitutionally normal, displays normal mood and affect per situation. There are no obvious deficits in memory, reasoning, or intellect.? Skin-no obvious rashes, bruising, erythema noted to the patient's area of pain.? Extremities- extremities are warm with minimal edema and palpable pulses. Lumbar-tenderness to palpation noted in the lumbar spine and paraspinal musculature. Pain is elicited with flexion, extension, and lateral rotation of the lumbar spine. Range of motion is diminished with these motions. Facet loading maneuvers are positive. Strength-noted to be unremarkable with the exception of decreased strength rated at 4 out of 5 in bilateral quadriceps femoris, anterior tibialis. Sensory-no notable sensory deficits in the bilateral lower extremities to touch or pinprick in all dermatomal distributions with the exception to decreased sensation to the bilateral L4, 5 dermatomal distribution Coordination remains intact.? Gait remains non-antalgic. Assessment and Plan Assessment and Plan (1) Lumbar stenosis with neurogenic claudication: (2) Lumbar spondylosis: Plan bilateral L5 SNRB #2, first injection provided >80% improvement for 1-2 weeks and less than 50% improvement ongoing continue current medications tolerating well without side effects UDS today f/u after injection
== END 2024-04-03 13:23 | disposition home or self-care (01) ==
LOC: PM 13:22
PROVIDERS: PCP Nurse Practitioner Primary Care; Visit Provider Nurse Practitioner
DX: M48.062 Spinal stenosis, lumbar region with neurogenic claudication (principal); M47.816 Spondylosis without myelopathy or radiculopathy, lumbar region
CPT/HCPCS: G0463

== ENCOUNTER 2024-04-08 12:20 | Outpatient (REF) | payer MEDICARE, MEDICAID, SELFPAY ==
--- OUTSIDE RECORDS SUMMARY | 2024-04-24 12:43 | XMS_ITS | CCD ---
Author Organization [facility] Care Team Providers Care Sweep Molder Name Role Phone MaiElizabeth Primary Care Provider SANTIAGO SHELL Admitting Unavailable MAI ELIZABETH Referring Unavailable SHEMARTrev ELIZABETH Primary Care Unavailable SANTIAGO SHELL Attending Unavailable SHEMARTrev ELIZABETH Primary Care Unavailable SANTIAGO SHELL Attending Unavailable MD John Carlson Attending Provider [phone] BRIAN Flanagan Primary Care Provider DO Dominique Garrison Attending Provider [facility] Primary Care Unava ilable KAPOOR ., DR KACEY Jordan Admitting Unavailable KAPOOR ., DR KACEY Jordan Consulting Unavailable KAPOOR ., DR KACEY Jordan Attending Unavailable KAPOOR ., DR KACEY Jordan Admitting Unavailable CERVANTES ., ACE Consulting Unavailable [facility] [place] Unavailable KAPOOR ., DR KACEY Jordan Attending Unavailable [facility] [place] Unavailable CERVANTES ., ACE Consulting Unavailable KAPOOR ., DR KACEY Jordan Admitting Unavailable KAPOOR ., DR KACEY Jordan Attending Unavailable SHAMMO, NIKOLAS Primary Care Unavailable LAKSHMIPATHY ., NETTE Attending Norma vailable LAKSHMIPATHY ., NETTE Admitting Norma vailable KAPOOR ., DR KACEY Jordan Admitting Unavailable SHAMMO, NIOKLAS Primary Care Unavailable CERVANTES ., ACE Consulting Unavailable KAPOOR ., DR KACEY Jordan Attending Unavailable SHAMMO, NIKOLAS Admitting Unavailable SHAMMO, NIKOLAS Primary Care Unavailable SHAMMO, NIKOLAS Attending Unavailable [facility] Care Unava ilable CERVANTES ., ACE Attending Unavailable CERVANTES ., ACE Admitting Unavailable DR KATYA BECK V Consulting Unavailable CERVANTES ., ACE Consulting Unavailable SHAMMO, NIKOLAS Admitting Unavailable SHAMMO, NIKOLAS Primary Care Unavailable SHAMMO, NIKOLAS Consulting Unavailable SHAMMO, NIKOLAS Attending Unavailable SHAMMO, NIKOLAS Primary Care Unavailable [place] SCANLON Consulting Unavailable [place], [place] Attending Unavailable [place], [place] Admitting Unavailable SHAMMO, NIKOLAS Primary Care Unavailable TRAN, DR NATHAN Hickey Consulting Unavailabl e REINECK, DR NATHAN Hickey Attending Unavailabl e REINECK, DR NATHAN Hickey Admitting Unavailabl e ZIEBER, DR SANIA Khanna Consulting Unavailable MICHELE ., DELONTE Attending Unavailable [facility] Unava ilable MICHELE ., DELONTE Admitting Unavailable RANI ., CHINYERE MONSALVE Consulting Unavailabl e MIRELES, DEREK Consulting Unavailable ANTWON ., DR KACEY Jordan Attending Unavailable [facility] Unava ilable CERVANTES ., ACE Consulting Unavailable ANTWON ., DR KACEY Jordan Admitting Unavailable [facility] Provider CORINE CATHERINE Referring Unavailable THACKER, HARLEY Primary Care Unavailable Thacker, Harley Primary Care Provider [phone] THACKER, HARLEY Referring Unavailable THACKER, HARLEY Primary [...] Referring Unavailable THACKER, HARLEY Primary Care Unavailable JOSE PITTMAND Attending Unavailable TALEB, MOHAMMAD Referring Unavailable THACKER, HARLEY Primary Care Unavailable Thacker SYNTHETIC PLASTERER, Harley Kendell Primary Care [facility]ak CORTES, Andrius Cunningham Attending Unavailable Barak CORTES, Andrius Cunningham Attending Unavailable Barak CORTES, Hailerius Cunningham Attending Unavailable Barak CORTES, Andrius Cunningham Attending Unavailable DO Dannie Dickinson Attending Provider DANNIE DICKINSON Attending Unavailable DANNIE DICKINSON Attending Unavailable DANNIE DICKINSON Attending Unavailable CORINE CATHERINE Attending Unavailable THACKER, HARLEY [...] Referring Unavailable THACKER, HARLEY Primary Care Unavailable WHITNEY CLARIBEL Attending Unavailable THACKER, HARLEY Referring Unavailable THACKER, HARLEY Primary Care Unavailable WHITNEY CLARIBEL Attending Unavailable THACKER, HARLEY Referring Unavailable THACKER, HARLEY Primary Care Unavailable WHITNEY CLARIBEL Attending Unavailable THACKER, HARLEY Referring Unavailable THACKER, HARLEY Primary Care Unavailable WHITNEY CLARIBEL Attending Unavailable THACKER, HARLEY Referring Unavailable THACKER, HARLEY Primary Care Unavailable WHITNEY CLARIBEL Attending Unavailable THACKER, HARLEY Referring Unavailable THACKER, HARLEY Primary Care Unavailable WHITNEY CLARIBEL Attending Unavailable THACKER, HARLEY Referring Unavailable THACKER, HARLEY Primary Care Unavailable THACKER, HARLEY Attending Unavailable THACKER, HARLEY Referring Unavailable THACKER, HARLEY Primary Care Unavailable WHITNEY, CLARIBEL Attending Unavailable THACKER, HARLEY Referring Unavailable THACKER, HARLEY Primary Care Unavailable THACKER, HARLEY Attending Unavailable SHAMMONIKOLAS Referring Unavailable THACKER, HARLEY Primary Care Unavailable YASHIRA MI Attending Unavailable THACKER, HARLEY Referring Unavailable THACKER, HARLYE Primary Care Unavailable WHITNEYCLARIBEL Attending Unavailable THACKER, HARLEY Referring Unavailable THACKER, HARLEY Primary Care Unavailable TeenaJonoy Attending Unavailable Teena, Dannie Admitting Unavailable THACKER, HARLEY KENDELL Primary Care Unavail able THACKER, HARLEY KENDELL Primary Care Unavail able STEPHANI LUCAS Referring Unavai lable THACKER, HARLEY KENDELL Primary Care Unavail able ABHYANKAR, SHARIF Referring Unavailable ABHYANKAR, SHARIF Attending Unavailable THACKER, HARLEY KENDELL Primary Care Unavail able THACKER, HARLEY KENDELL Primary Care Unavail able ABHYANKAR, SHARIF Referring Unavailable ABHYANKAR, SHARIF Attending Unavailable THACKER, HARLEY KENDELL Referring Unavail able THACKER, HARLEY KENDELL Primary Care Unavail able ABHYANKAR, SHARIF Attending Unavailable THACKER, HARLEY KENDELL Primary Care Unavail able Allergies Allergy Classification Reported Allergen(s) Allergy Type Date of Onset Reaction(s) Facility (12 sources) Allopurinol; Translations: [ALLOPURINOL] Drug Allergy 05-12-20 20 [facility] (20 sources) Amoxicillin; Translations: [AMOXICILLIN] Drug Allergy 04-28-20 13 [facility] (20 sources) Cefaclor; Translations: [CEFACLOR] Drug Allergy 04-28-20 13 Hives, Other (See Comments), Rash, Unknown [facility] (20 sources) Ciprofloxacin; Translations: [CIPROFLOXACIN] Drug Allergy 09-03-19 20 [facility] (20 sources) Estrogens; Translations: [ESTROGENS] Drug Allergy 01-29-20 15 Other (See Comments), Unknown [facility] (20 sources) Penicillins; Translations: [PENICILLINS] Propensity to adverse reactions to drug 02-15-20 13 Hives, Rash [facility] (20 sources) Sulfonamides (Antibiotic); Translations: [SULFA (SULFONAMIDE ANTIBIOTICS)] Propensity to adverse reactions to drug 09-03-19 [facility] (6 sources) Sulfamethoxazole Drug Allergy 02-01-[address] [facility] (17 sources) Trimethoprim; Translations: [TRIMETHOPRIM] Drug Allergy 02-01-[address] [facility] (6 sources) DPT Allergy to substance 02-01-20 Redness of Skin [facility] (6 sources) surgical kory Allergy to substance 02-01-[address] [facility] (6 sources) hormones Propensity to adverse reactions 02-01-20 will cause blood clots [facility] (2 sources) Amoxicillin Drug Allergy [facility] (2 sources) Cefaclor Drug Allergy [facility] (2 sources) Ciprofloxacin Drug Allergy 09-03-19 [facility] (2 sources) Sulfonamides (Antibiotic) Drug allergy (disorder) 09-03-19 [facility] (20 sources) Cephalosporins (Antibiotic); Translations: [CEPHALOSPORINS] Propensity to adverse reactions to drug 06-13-20 22 [facility] (20 sources) Sulfamethoxazole / Trimethoprim; Translations: [SULFAMETHOXAZOLE-T RIMETHOPRIM] Drug Allergy 06-16-20 16 Rash, Unknown [facility] (20 sources) Diphtheria,Pertussi s,Tetanus; Translations: [DIPHTHERIA,PERTUSS IS,TETANUS] Propensity to adverse reactions to drug 04-28-20 13 [facility] (20 sources) Other; Translations: [OTHER] Propensity to adverse reactions 02-29-20 16 Rash [facility] (20 sources) Pertussis Vaccines; Translations: [PERTUSSIS VACCINES] Propensity to adverse reactions to drug 04-24-20 18 Unknown [facility] (20 sources) Tetanus Vaccines And Toxoid; Translations: [TETANUS VACCINES AND TOXOID] Propensity to adverse reactions to drug 02-29-20 16 [facility] (11 sources) Tetanus And Diphtheria Toxoids; Translations: [TETANUS AND DIPHTHERIA TOXOIDS] Drug Allergy 06-25-20 23 Unknown [facility] Medications Current Medications Medication Drug Class(es) Dates Sig (Normalized) Sig (Original) acetaminophen 325 mg oral capsule (10 sources) acetaminophen (TYLENOL) 325 mg cap Take by mouth. Active Comment on above: Take by mouth. acetaminophen 300 mg / codeine phosphate 30 mg oral tablet (2 sources) Opioid Agonist acetaminophen-co dei ne (TYLENOL-COD #3) 300-30 mg per tablet Take 1 tablet by mouth. Active acetaminophen 325 mg / HYDROcodone bitartrate 5 [...] 30 03March 13, 2022 April 10, 2022 1:38pm Start: [...] per tablet Take 1 tablet by mouth. Active Comment on above: Take 1 tablet [...] mg tablet Take 5 mg by mouth. 10/19/2023 Active Comment on above: Take 10 [...] hydrochloride 150 mg extended release oral tablet (10 sources) Aminoketone Start: take 1 tablet by mouth every twenty-four hours buPROPion XL (WELLBUTRIN XL) 150 mg 24 hr tablet Take 150 mg by mouth. 05/03/2017 Active Comment on above: Take 150 mg by mouth . busPIRone hydrochloride 15 mg oral tablet (9 sources) Start: 023 busPIRone (BUSPAR) 15 mg tablet 04/16/2023 Active cetirizine hydrochloride 10 mg oral tablet (10 sources) Histamine-1 Receptor Antagonist Start: 016 cetirizine (ZYRTEC) 10 mg tablet Take 10 mg by mouth. 01/21/2016 Active Comment on above: Take 10 mg by mouth. cholecalciferol 0.025 mg oral tablet (17 sources) Vitamin D Start: take 1 tablet [...] Cholecalcifero l, Vitamin D3, 10,000 unit cap 10/19/2017 Active Start: 10-19-2017 take 1 capsule by [facility] every week Cholecalciferol, Vitamin D3, 10,000 unit cap 10,000 unit oral capsule once weekly 0 10/19/2017 Active Comment on above: 10,000 unit oral cap kyaw once weekly cyclobenzaprine (9 sources) Muscle Relaxant Start: 02-01-2023 cyclobenzaprine HCl (CYCLOBENZAPRINE ORAL) Take by mouth. 02/01/2023 Active Start: 02-01-2023 cyclobenzaprin e HCl (CYCLOBENZAPRINE ORAL) Take by mouth. 0 02/01/2023 Active Comment on above: Take by mouth. doxycycline hyclate 100 mg oral capsule (10 sources) Tetracycline-class Drug Start: 04-24-20 doxycycline hyclate (VIBRAMYCIN) 100 mg capsule Take 100 mg by mouth. 04/24/2018 Active Comment on above: Take 100 mg by mouth . DULoxetine 60 mg delayed release oral capsule (20 sources) Serotonin and Norepinephrine Reuptake Inhibitor Start: 05-29-20 End: 11-28-19 DULoxetine (CYMBALTA) 60 mg capsule Take 60 mg by mouth. 05/29/2022 Active Comment on above: Take 60 mg by mouth. escitalopram 5 mg oral tablet (10 sources) Serotonin Reuptake Inhibitor Start: 06-13-20 18 escitalopram oxalate (LEXAPRO) 5 mg tablet 06/13/2018 Active esomeprazole 20 mg granules for oral suspension (19 sources) Proton Pump Inhibitor Start: 11-14-19 Esomeprazole Magnesium 20 mg packet Take 40 mg by mouth. 11/14/2023 Active Comment on above: Take 40 mg by mouth. ferrous sulfate 325 mg oral tablet (20 sources) Start: 02-01-20 End: 11-28-19 take 1 tablet by mouth once daily Ferrous Sulfate (Iron) 325 mg (65 mg iron) Tablet Active 325 MG PO Daily January 31, 2022 12:00am Start: 10-29-2019 take 1 tablet by christina th twice daily ferrous sulfate 325 mg (65 mg iron) tablet Take 1 tablet by mouth twice daily. 60 tablet 5 10/29/2019 Active Comment on above: Take 1 tablet by christina th twice daily. FLUoxetine 40 mg oral capsule (10 sources) Serotonin Reuptake Inhibitor Start: 06-16-2016 FLUoxetine HCl (PROZAC) 40 mg capsule 06/16/2016 Active Comment on above: TAKE ONE CAPSULE BY MOUTH ONCE DAILY Folic Acid (2 sources) FOLIC ACID ORAL Take by mouth. Active folic acid 2.5 mg / vitamin b12 2 mg / vitamin b6 25 mg oral tablet (11 sources) Vitamin B12 Start: 12-20-2023 End: 12-14-2024 take 1 tablet by mouth once daily folic acid-Vit B6-Vit B12 (FOLTX) 2.5-25-2 mg tab Indications: MTHFR mutation Take 1 tablet by mouth once daily. 90 tablet 3 12/20/2023 12/14/2024 Active Start: 10-28-2020 End: 12-20-2023 H55-fwfsvioahgso calcium-B6 (FOLTX) 2-1.13-25 mg tab Indications: Factor V Leiden (HCC) Take 1 tablet by mouth once daily. 90 tablet 3 10/28/2020 12/20/2023 Discontinued Start: 10-28-2020 Z25-tkgcahqhro te calcium-B6 (FOLTX) 2-1.13-25 mg tab Indications: Factor V Leiden (HCC) Take 1 tablet by mouth once daily. 90 tablet 3 10/28/2020 Active Comment on above: Take 1 tablet by christina th once daily. gabapentin 300 mg oral capsule (16 sources) Anti-epileptic Agent Start: 01-31-2022 take 600 mg by mouth once daily at bedtime Gabapentin Active 600 MG PO Daily at bedtime January 31, 2022 12:00am End: 10-08-2023 gabapentin (NEURONTIN) 300 m g capsule Take 300 mg by mouth. Active Comment on above: Take 300 mg by mouth . guaifenesin/pseudoephedrne H Cl (GUAIFENESIN 600/PSE 120 ORAL) (10 sources) guaifenesin/pseu doephedrne HCl (GUAIFENESIN 600/PSE 120 ORAL) Take by mouth. Active guaifenesin/pseu doephedrne HCl (GUAIFENESIN 600/PSE 120 ORAL) Take by mouth. 0 Active Comment on above: Take by mouth. hydroCHLOROthiazide 25 mg oral tablet (20 sources) Thiazide Diuretic Start: End: 024 take 1 tablet by mouth once daily hydroCHLOROthiazide (HYDRODIURIL, ESIDRIX) 25 mg tablet Take 25 mg by mouth once daily. 10/11/2020 Active take 1 tablet by mouth once poncho y hydroCHLOROthiazide (HYDRODIURIL) 25 MG tablet Take 25 mg by mouth daily . 0 Active Comment on above: Take 25 mg by mouth once daily. hydrOXYzine pamoate 50 mg oral capsule (20 sources) Antihistamine Start: 05-27-2022 End: 11-28-2023 hydrOXYzine pamoate (VISTARIL) 50 mg capsule Take 50 mg by mouth. 05/27/2022 Active Start: 01-31-2022 take 25 mg by mouth four times daily Hydroxyzine Pamoate Active 25 MG PO Four times daily January 31, 2022 12:00am Comment on above: Take 50 mg by mouth. 24 hr isosorbide mononitrate 30 mg extended release oral tablet (18 sources) Nitrate Vasodilator Start: 09-01-2020 isosorbide mononitrate ER (IMDUR) 30 mg 24 hr tablet 09/01/2020 Active Start: 09-01-2020 take 15 mg by mouth [...] (ONE HALF) TABLET BY MOUTH ONCE DAILY isosorbide dinitrate 30 mg oral tablet (2 sources) Nitrate Vasodilator Start: 02-22-2024 isosorbide dinitrate (ISORDIL) 30 mg tablet 02/22/2024 Active lamoTRIgine 25 mg oral tablet (20 sources) Mood Stabilizer, Anti-epileptic Agent Start: 04-13-2022 End: 10-18-2024 lamoTRIgine (LAMICTAL) 25 mg tablet Take 50 mg by mouth. 04/13/2022 10/18/2024 Active Start: 04-13-2022 End: 10-19-2023 [...] mouth. levothyroxine sodium 0.05 mg oral tablet (10 sources) l-Thyroxine Start: 08-14-2016 levothyroxine (SYNTHROID) 50 mcg tablet 08/14/2016 Active Comment on above: TAKE ONE TABLET BY M OUT ONCE DAILY lidocaine hydrochloride 30 mg/ml topical cream (11 sources) Antiarrhythmic, Amide Local Anesthetic Start: 06-21-2018 Lidocaine HCl 3 % crea 06/21/2018 Active Start: 06-21-2018 lidocaine HCL 3 % Crea APPLY TO THE AFFECTED AREA(S) BY TOPICAL ROUTE 2 TIMES PER DAY . 0 06/21/2018 Active lisinopril 10 mg oral tablet (10 sources) Angiotensin Converting Enzyme Inhibitor Start: 06-13-2018 lisinopril (ZESTRIL, PRINIVIL) 10 mg tablet 06/13/2018 Active loratadine 10 mg oral tablet (10 sources) Start: 04-25-2018 loratadine (CLARITIN) 10 mg tablet 04/25/2018 Active melatonin 10 mg oral tablet (7 sources) melatonin 10 mg tab Take 10 mg by mouth. Active metoclopramide 10 mg oral tablet (8 sources) Dopamine-2 Receptor Antagonist Start: 12-10-2023 metoclopramide HCl (REGLAN) 10 mg tablet 12/10/2023 Active mupirocin 0.02 mg/mg topical ointment (10 sources) RNA Synthetase Inhibitor Antibacterial Start: 03-14-2017 mupirocin (BACTROBAN) 2 % ointment Apply 1 application to affected area. 03/14/2017 Active Comment on above: Apply 1 application to affected area. omeprazole 20 mg delayed release oral capsule (20 sources) Proton Pump Inhibitor Start: 01-31-2022 End: 11-14-2023 take 20 mg by mouth once daily in the morning Omeprazole Active 20 MG PO Every morning January 31, 2022 12:00am Comment on above: Take 20 mg by mouth once daily. OZEMPIC 0.25 mg or 0.5 mg (2 mg/3 mL) pen (2 sources) Start: 03-20-2024 OZEMPIC 0.25 mg or 0.5 mg (2 mg/3 mL) pen Inject 0.25 mg subcutaneously one time a week. 03/20/2024 Active prazosin 2 mg oral capsule (20 sources) alpha-Adrenergic Senthil Start: 10-19-2023 End: 11-28-2023 prazosin (MINIPRESS) 2 mg cap Take 2 mg by mouth. 10/19/2023 Active Start: 05-29-2022 End: 10-19-2023 take 1 capsule by mouth once daily at bedtime prazosin (MINIPRESS) 1 mg capsule Take 1 capsule (1 mg total) by mouth once daily at bedtime. 0 05/29/2022 10/19/2023 Discontinued (Dose adjustment) Comment on above: Take 2 mg by mouth. rimegepant 75 mg disintegrating oral tablet (16 sources) Start: End: NURTEC ODT 75 mg disintegrating tablet 10/08/2023 Active rivaroxaban 20 mg oral tablet (6 sources) Factor Xa Inhibitor Start: take 1 tablet by mouth once daily Rivaroxaban (Xarelto) 20 mg tablet Active 20 MG PO Daily January 31, 2022 12:00am 1 ml secukinumab 150 mg/ml prefilled syringe (2 sources) Interleukin-17A Antagonist inject 150 mg by subcutaneous injection once secukinumab (COSENTYX) 150 mg/mL injection Inject subcutaneously one time only. Active spironolactone 25 mg oral tablet (20 sources) Aldosterone Antagonist Start: End: spironolactone (ALDACTONE) 25 mg tablet 09/20/2020 Active sucralfate 1000 mg oral tablet (17 sources) Aluminum Complex Start: take 1 g by mouth twice daily Sucralfate Active 1 GM PO Twice daily January 31, 2022 12:00am take 1 tablet by mouth four time s daily sucralfate (CARAFATE) 1 gram tablet Take 1 g by mouth 4 (four) times a day . 0 Active Comment on above: Take 1 g by mouth. tetracycline hydrochloride 500 mg oral capsule (10 sources) Tetracycline-class Antimicrobial Start: 09-29-2020 tetracycline (SUMYCIN) 500 mg cap 09/29/2020 Active Comment on above: TAKE 1 CAPSULE BY [facility] EVERY 12 HOURS ON AN EMPTY STOMACH triamcinolone acetonide 5 mg/ml topical cream (10 sources) Corticosteroid Start: 04-03-2017 triamcinolone acetonide (KENALOG) 0.5 % cream 04/03/2017 Active vitamin b12 1 mg oral tablet (2 sources) Vitamin B12 Start: 02-22-2024 cyanocobalamin (VITAMIN B-12) 1,000 mcg tab 02/22/2024 Active Completed/Discontinued Medications Medication Drug Class(es) Dates Sig (Normalized) Sig (Original) apixaban 5 mg oral tablet (18 sources) Factor Xa Inhibitor Start: 12-29-2022 End: 12-20-2023 apixaban (ELIQUIS) 5 mg tab(s) Take 5 mg by mouth. 0 12/29/2022 12/20/2023 Discontinued Comment on above: Take 5 mg by mouth. 0.8 ml fondaparinux sodium 12.5 mg/ml prefilled syringe (7 sources) Factor Xa Inhibitor Start: 12-20-2023 End: 04-18-2024 inject 0.8 mL by subcutaneous injection every twenty-four hours fondaparinux (ARIXTRA) 10 mg/0.8 mL syrg Indications: Factor V Leiden (HCC) , MTHFR mutation , Primary hypercoagulable state (HCC) Inject 0.8 mL subcutaneously every 24 hours. 24 mL 3 12/20/2023 04/18/2024 Comment on above: Inject 0.8 mL subcut aneously every 24 hours. lansoprazole 3 mg/mL in sodium bicarbonate (1 [...] subcutaneous pen injector Inject 0.6 mg subcutaneously. 03/14/2023 Active Start: 03-14-2023 End: 10-13-2023 liraglutide (VICTOZA 2-ALFIE) 0.6 mg/0.1 mL (18 mg/3 mL) pen injector Inject 0.3 mL (1.8 mg total) under the skin in the morning. 0 03/14/2023 10/13/2023 Discontinued (Reorder) Comment on above: Inject 0.6 mg subcut aneously. metoprolol tartrate 50 mg oral tablet (20 sources) beta-Adrenergic Senthil Start: 10-09-19 End: 11-28-19 24 take 1 tablet by mouth in the [...] mg tablet Take 12.5 mg by mouth. 07/31/2016 Active Start: 07-31-2016 take 1 tablet [...] Translations: [Heterozygous Factor V Leiden mutation] Onset: Resolve d: 10-08-2023 Chronic Complications of surgical procedures or medical care (19 sources) Postprocedural hypothyroidism; Translations: [History of subtotal thyroidectomy] Onset: 015 01-13-2022 Chronic Deficiency and other anemia (5 sources) Iron deficiency anemia; Translations: [Iron deficiency anemia, unspecified] Onset: 024 11-29-2023 Episodic Diabetes mellitus without complication (20 sources) Diabetes mellitus; Translations: [Type 2 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 complications] Onset: 022 01-13-2022 Chronic Esophageal disorders (20 sources) Gastro-esophageal reflux disease without esophagitis; Translations: [Gastroesophageal reflux disease] Onset: 017 10-08-2023 Chronic Essential hypertension (20 sources) Essential (primary) hypertension; Translations: [Essential hypertension] Onset: 017 11-24-2022 Chronic Fluid and electrolyte disorders (1 source) Hypokalemia; Translations: [HYPOKALEMIA] Onset: Episodic Gastrointestinal hemorrhage (1 source) Gastrointestinal hemorrhage; Translations: [Gastrointestinal hemorrhage, unspecified] 11-29-2023 Episodic Headache; including migraine (2 sources) Migraine without aura, not refractory ; Translations: [Migraine without aura, not intractable, without status migrainosus] Onset: 024 10-08-2023 Chronic Headache; including migraine (4 sources) [...] I disorder; Translations: [Bipolar disorder, unspecified] Onset: 021 10-08-2023 Chronic Nutritional deficiencies (20 sources) Vitamin D deficiency; Translations: [Vitamin D deficiency, unspecified] Onset: 08-02-2020 Chronic Other aftercare (1 source) 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; Translations: [OTH TRIAGE CLINICIAN CURRENT DRUG THERAPY] Onset: Episodic Other aftercare (1 source) 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; Translations: [TRIAGE CLINICIAN CURRNT USE ANTICOAGULANTS] Onset: Episodic Other and [...] susceptibility to other disease] Onset: Resolve d: 03-15-2017 Episodic Screening and history of mental health and substance abuse codes (1 source) Personal history of nicotine dependence; Translations: [PERSONAL HISTORY OF NICOTINE DEPEND] Onset: Episodic Spondylosis; intervertebral disc disorders; other back problems (19 sources) Other spondylosis with radiculopathy, lumbar region; Translations: [Spondylosis] Onset: 021 01-13-2022 Chronic Spondylosis; intervertebral disc disorders; other back problems (14 sources) Cervicalgia; Translations: [Radiculopathy, cervical region] Onset: 022 Episodic Thyroid disorders (20 sources) Autoimmune thyroiditis; Translations: [Autoimmune thyroiditis] Onset: 014 Resolve d: 017 03-14-2017 Chronic Unclassified (1 source) LOW BACK PAIN, UNSPECIFIED; Translations: [LOW BACK PAIN, UNSPECIFIED] Onset: 023 Unclassified (1 source) gastroesophageal reflux, nausea, vomiting Onset: 024 Unclassified (1 source) wellness Onset: 024 Unclassified (1 source) Pre-op Exam Onset: 024 Unclassified (1 source) New Patient Onset: 02-16-2 024 Unclassified (1 source) Insulin resistance, unspecified; Translations: [Insulin resistance, unspecified] Onset: Unclassified (1 source) Establish Care Onset: Past [...] [Shortness of breath] Onset: 11-14-2023 Episodic Other non-traumatic joint disorders (5 sources) [...] Test Name Value Interpretation Reference Range Facility [facility] 04-22[facility]2024 [facility] Telephone (HEMASA) MARGARET PRIETO ([id number]) 1990 F Date Time Provider Department 04/22/24 AMARILYS ROBLES During your visit today, we recorded the following information about you: Amarilys Robles LSW 04/22/2024 11:21 AM Signed Unable To Reach Patient Patient appears on the PRO [facility] report for a PHQ-9 score of 23 and a NCCN score of 10. SW called Patient to follow up. Her VM was full, no message could be left. JUANITA James Allergies As of Date: 04/22/2024 Noted Allergy Reaction CIPROFLOXACIN 09/03/2019 4 - [...] AMOXICILLIN 04/28/2013 4 - Hives Date Reviewed: 04/18/2024 Reviewed by: Radha Tavera MA - Fully Assessed Prescriptions as of 04/22/2024 - cyanocobalamin (VITAMIN B-12) 1,000 mcg tab - FOLIC ACID ORAL Take by mouth. - secukinumab (COSENTYX) 150 mg/mL injection Inject subcutaneously one time only. - acetaminophen-codeine (TYLENOL-COD #3) 300-30 mg per tablet Take 1 tablet by mouth. - OZEMPIC 0.25 mg or 0.5 mg (2 mg/3 mL) pen Inject 0.25 mg subcutaneously one time a week. - melatonin 10 mg tab Take 10 mg by mouth. - isosorbide dinitrate (ISORDIL) 30 mg tablet - metoclopramide HCl (REGLAN) 10 mg tablet - folic acid-Vit B6-Vit B12 (FOLTX) 2.5-25-2 [...] once daily. Problem List As Of Date 04/22/2024 Noted Resolved Factor V Leiden (HCC) [D68.51] 07/04/2018 Factor V deficiency (HCC) [D68.2] 12/22/2023 Primary hypercoagulable state (HCC) [D68.59] 04/18/2024 MTHFR mutation [Z15.89] 04/18/2024 Iron deficiency anemia [D50.9] 04/18/2024 Encounter Status:Closed by AMARILYS ROBLES on 04/22/24 Normal [facility] CBC W Auto Differential pane l (Bld)on 04-18-2024 Basophils (Bld) [#/Vol] 0.06 10*3/uL Normal <0.11 [facility] Comment on above: Order Comment: Speci men Type: BLOOD SPECIMEN Ordering Facility: [facility] Address: [address] [place] [address] Performed By: #### 5 7021-8 #### [facility] CLIA [id number] [address] [place] [address]691 Basophils/100 WBC (Bld) 0.3 % Normal [facility] Comment on above: Order Comment: Speci men Type: BLOOD SPECIMEN Ordering Facility: [facility] Address: [address] [place] [address] Performed By: #### 5 7021-8 #### [facility] CLIA [id number] [address] [place] [address] Differential cell count method Nom (Bld) Auto Normal [facility] Comment on above: Order Comment: Speci men Type: BLOOD SPECIMEN Ordering Facility: [facility] Address: [address] [place] [address] Performed By: #### 5 7021-8 #### [facility] CLIA [id number] [address] [place] [address]353 Eosinophils (Bld) [#/Vol] 0.13 10*3/uL Normal <0.46 [facility] Comment on above: Order Comment: Speci men Type: BLOOD SPECIMEN Ordering Facility: [facility] Address: [address] [place] [address] Performed By: #### 5 7021-8 #### [facility] CLIA [id number] [address] [place] [address]79[address] Eosinophils/100 WBC (Bld) 0.8 % Normal [facility] Comment on above: Order Comment: Speci men Type: BLOOD SPECIMEN Ordering Facility: [facility] Address: [address] [place] [address] Performed By: #### 5 7021-8 #### [facility] CLIA [id number] [address] [place] [address] Erythrocyte distribution width (RBC) [Ratio] 15.6 % High 11.5-15.0 [facility] Comment on above: Order Comment: Speci men Type: BLOOD SPECIMEN Ordering Facility: [facility] Address: [address] [place] [address] Performed By: #### 5 7021-8 #### [facility] CLIA [id number] [address] [place] [address] Hematocrit (Bld) [Volume fraction] 41.3 % Normal 36.0-46.0 [facility] Comment on above: Order Comment: Speci men Type: BLOOD SPECIMEN Ordering Facility: [facility] Address: [address] [place] [address] Performed By: #### 5 7021-8 #### [facility] CLIA [id number] [address] [place] [address]2517 Hemoglobin (Bld) [Mass/Vol] 13.8 g/dL Normal 11.5-15.5 [facility] Comment on above: Order Comment: Speci men Type: BLOOD SPECIMEN Ordering Facility: [facility] Address: [address] [place] [address] Performed By: #### 5 7021-8 #### [facility] CLIA [id number] [address] [place] [address]93 Immature granulocytes (Bld) [#/Vol] 0.11 10*3/uL High <0.10 [facility] Comment on above: Order Comment: Speci men Type: BLOOD SPECIMEN Ordering Facility: [facility] Address: [address] [place] [address] Performed By: #### 5 7021-8 #### [facility] CLIA [id number] [address] [place] [address] 42385 Immature granulocytes/100 WBC (Bld) 0.6 % Normal [facility] Comment on above: Order Comment: Speci men Type: BLOOD SPECIMEN Ordering Facility: [facility] Address: [address] [place] [address] Performed By: #### 5 7021-8 #### [facility] CLIA [id number] [address] [place] [address]1782 Lymphocytes (Bld) [#/Vol] 2.66 10*3/uL Normal 1.00-4.00 [facility] Comment on above: Order Comment: Speci men Type: BLOOD SPECIMEN Ordering Facility: [facility] Address: [address] [place] [address] Performed By: #### 5 7021-8 #### [facility] CLIA [id number] [address] [place] [address] Lymphocytes/100 WBC (Bld) 15.4 % Normal [facility] Comment on above: Order Comment: Speci men Type: BLOOD SPECIMEN Ordering Facility: [facility] Address: [address] [place] [address] Performed By: #### 5 7021-8 #### [facility] CLIA [id number] [address] [place] [address]2678 MCH (RBC) [Entitic mass] 27.4 pg Normal 26.0-34.0 [facility] Comment on above: Order Comment: Speci men Type: BLOOD SPECIMEN Ordering Facility: [facility] Address: [address] [place] [address] Performed By: #### 5 7021-8 #### [facility] CLIA [id number] [address] [place] [address]150 MCHC (RBC) [Mass/Vol] 33.4 g/dL Normal 30.5-36.0 [facility] Comment on above: Order Comment: Speci men Type: BLOOD SPECIMEN Ordering Facility: [facility] Address: [address] [place] [address] Performed By: #### 5 7021-8 #### [facility] CLIA [id number] [address] [place] [address] 94219 MCV (RBC) [Entitic vol] 82.1 fL Normal 80.0-100.0 [facility] Comment on above: Order Comment: Speci men Type: BLOOD SPECIMEN Ordering Facility: [facility] Address: [address] [id number] Performed By: #### 5 7021-8 #### [facility] CLIA [id number] [address] [place] [address] 31593 Monocytes (Bld) [#/Vol] 1.20 10*3/uL High <0.87 [facility] Comment on above: Order Comment: Speci men Type: BLOOD SPECIMEN Ordering Facility: [facility] Address: [address] [place] [address] Performed By: #### 5 7021-8 #### [facility] CLIA [id number] [address] [place] [address] 13882 Monocytes/100 WBC (Bld) 6.9 % Normal [facility] Comment on above: Order Comment: Speci men Type: BLOOD SPECIMEN Ordering Facility: [facility] Address: [address] [place] [address] Performed By: #### 5 7021-8 #### [facility] CLIA [id number] [address] [place] [address] 46530 Neutrophils (Bld) [#/Vol] 13.11 10*3/uL High 1.45-7.50 [facility] Comment on above: Order Comment: Speci men Type: BLOOD SPECIMEN Ordering Facility: [facility] Address: [address] [place] [address] Performed By: #### 5 7021-8 #### [facility] CLIA [id number] [address] [place] [address] 98967 Neutrophils/100 WBC (Bld) 76.0 % Normal [facility] Comment on above: Order Comment: Speci men Type: BLOOD SPECIMEN Ordering Facility: [facility] Address: [address] [place] [address] Performed By: #### 5 7021-8 #### [facility] CLIA [id number] [address] [place] [address] Nucleated RBC (Bld) [#/Vol] 10*3/uL Normal <0.01 [facility] Comment on above: Order Comment: Speci men Type: BLOOD SPECIMEN Ordering Facility: [facility] Address: [address] [place] [address] Performed By: #### 5 7021-8 #### [facility] CLIA [id number] [address] [place] [address] Nucleated RBC/100 WBC (Bld) [Ratio] 0.0 /100 WBC Normal [facility] Comment on above: Order Comment: Speci men Type: BLOOD SPECIMEN Ordering Facility: [facility] Address: [address] [place] [address] Performed By: #### 5 7021-8 #### [facility] CLIA [id number] [address] [place] [address] 67264 Platelet mean volume (Bld) [Entitic vol] 8.6 fL Low 9.0-12.7 [facility] Comment on above: Order Comment: Speci men Type: BLOOD SPECIMEN Ordering Facility: [facility] Address: [address] [place] [address] Performed By: #### 5 7021-8 #### [facility] CLIA [id number] [address] [place] [address] 36409 Platelets (Bld) [#/Vol] 329 10*3/uL Normal 150-400 [facility] Comment on above: Order Comment: Speci men Type: BLOOD SPECIMEN Ordering Facility: [facility] Address: [address] [place] [address] Performed By: #### 5 7021-8 #### [facility] CLIA [id number] [address] [place] [address] 65122 RBC (Bld) [#/Vol] 5.03 10*6/uL Normal 3.90-5.20 [facility] Comment on above: Order Comment: Speci men Type: BLOOD SPECIMEN Ordering Facility: [facility] Address: [address] [place] [address] Performed By: #### 5 7021-8 #### [facility] CLIA [id number] [address] [place] [address] 17257 WBC (Bld) [#/Vol] 17.27 10*3/uL High 3.70-11.00 [facility] Comment on above: Order Comment: Speci men Type: BLOOD SPECIMEN Ordering Facility: [facility] Address: [address] [place] [address] Performed By: #### 5 7021-8 #### [facility] CLIA [id number] [address] [place] [address] CNOVSPon 04-18-2024 CNOVSP Visit (SP) Office (HEMASA) MARGARET PRIETO ([id number]) 1990 F Date Time Provider Department 04/18/24 11:30 AM SHARIF JOSEPH HEMBOB During your visit today, we recorded the following information about you: Temperature Pulse Respiration Blood pressure 97 degrees 75/minute 18/minute 155/76 Weight Last Period 165.8 kg 04/04/24 Sharif Joseph MD 04/19/2024 2:40 PM Signed NAME: Margaret Prieto CLINIC NO.: [id number] DATE OF SERVICE: April 18, 2024 (Jonelle) Some elements in this clinic note that are critical to medical decision making have been carefully reviewed and included from a prior clinic note dated: December 20, 2023 (Jonelle) Referring Provider: Harley Thacker APRN-SYNTHETIC PLASTERER Additional Clinicians involved in Margaret Mgtonimeenakshi's care: DIAGNOSIS: Hypercoag state. ASSESSMENT: Pulmonary embolus [...] resume anticoagulation with Arixtra. PLAN: RTC in 6 months Labs same day Continue Arixtra 10mg daily Continue Foltx or folic acid supplements Continue iron tablets - HPI: CASE HISTORY: Reverse [...] extremity. 2014 - Pulmonary embolism Updated Visit, April 18, 2024: Margaret returns today for a follow up. She brought up a concern regarding possible MGUS because of some family members that may have had similar findings and symptoms. She endorses neuropathic symptoms and thyroid dysfunction, however I do believe her symptoms are related to another inflammatory process given her history. Will not test for an M-protein at this time. She endorses constipation with iron supplement - recommended a schedule of 2 days on/1 day off. She would like to begin Ozempic - safe from my perspective. Her brother had a stroke last week, despite being on Arixtra but he was taking testosterone shots. He lost function of the left side of his body and had slurred speech. He is recovering now with heparin. Updated Visit, December 20, 2023: Margaret returns today. EGD on 12/09 revealed benign findings. She endorses abnormal coughing, so will be following with pulmonology. She will be starting on Cosentyx for hidradenitis. Stop Eliquis, start Arixtra. I would also like her to resume (more content not included)... Normal [facility] Comprehensive metabolic 2000 panelon 04-18-2024 Albumin [Mass/Vol] 3.8 g/dL Low 3.9-4.9 [facility] Comment on above: Order Comment: Speci men Type: BLOOD SPECIMEN Ordering Facility: [facility] Address: [address] [place] [address], [address], [place] [address] Performed By: #### I NFTBP #### [facility] CLIA [id number] [address] [id number] [place] ALP [Catalytic activity/Vol] 95 U/L Normal 34-123 [facility] Comment on above: Order Comment: Speci men Type: BLOOD SPECIMEN Ordering Facility: [facility] Address: [address] [place] [address], [address] [address] Performed By: #### I NFTBP #### [facility] CLIA [id number] [address] [place] [address] [place] ALT [Catalytic activity/Vol] 22 U/L Normal 7-38 [facility] Comment on above: Order Comment: Speci men Type: BLOOD SPECIMEN Ordering Facility: [facility] [facility] Address: [address] [place] [address], [address] [address] Performed By: #### I NFTBP #### [facility] CLIA [id number] [address] [place] [address] [place] Anion gap [Moles/Vol] 8 mmol/L Normal 8-15 [facility] Comment on above: Order Comment: Speci men Type: BLOOD SPECIMEN Ordering Facility: [facility] [facility] [facility] Address: [address] [place] [address], [address] [id number] Performed By: #### I NFTBP #### [facility] CLIA [id number] [address] [place] [address] [place] AST [Catalytic activity/Vol] 12 U/L Low 13-35 [facility] Comment on above: Order Comment: Speci men Type: BLOOD SPECIMEN Ordering Facility: [facility] [facility] Address: [address] [place] [address], [address], [place] [address] Performed By: #### I NFTBP #### [facility] CLIA [id number] [address] [id number] [place] Bilirubin [Mass/Vol] 0.3 mg/dL Normal 0.2-1.3 [facility] Comment on above: Order Comment: Speci men Type: BLOOD SPECIMEN Ordering Facility: [facility] [facility] Address: [address] [place] [address], [address], [place] [address] Performed By: #### I NFTBP #### [facility] CLIA [id number] [address] [address] [place] Calcium [Mass/Vol] 9.2 mg/dL Normal 8.5-10.2 [facility] Comment on above: Order Comment: Speci men Type: BLOOD SPECIMEN Ordering Facility: [facility] [facility] [facility] Address: [address] [place] [address], [address], [place] [address] Performed By: #### I NFTBP #### [facility] CLIA [id number] [address] [place] [address] [place] Chloride [Moles/Vol] 103 mmol/L Normal 98-107 [facility] Comment on above: Order Comment: Speci men Type: BLOOD SPECIMEN Ordering Facility: [facility] [facility] [facility] Address: [address] [place] [address], [address], [place] [address] Performed By: #### I NFTBP #### [facility] CLIA [id number] [address] [place], [place] [address] [place] CO2 [Moles/Vol] 27 mmol/L Normal 22-30 [facility] Comment on above: Order Comment: Speci men Type: BLOOD SPECIMEN [facility] Address: [address] [place] [address], [address], [place] [address] Performed By: #### I NFTBP #### [facility] CLIA [id number] [address] [place], [place] [address] [place] Creatinine [Mass/Vol] 0.86 mg/dL Normal 0.58-0.96 [facility] Comment on above: Order Comment: Speci men Type: BLOOD SPECIMEN [facility] Address: [address] [place] [address], [address] [address] Performed By: #### I NFTBP #### [facility] CLIA [id number] [address] [place] [address] [place] Creatinine and Glomerular filtration rate.predicted panel (S/P/Bld) 91 mL/min/1.73m??? Normal >=60 [facility] Comment on above: Order Comment: Nima macias Type: BLOOD SPECIMEN [facility]ing Facility: [facility] Address: [address] [place] [address], [address] [place] [address] Result Comment: Faye mated Glomerular Filtration Rate [...] accurately reflect actual GFR. Performed By: #### I NFTBP #### [facility] CLIA [id number] [address] [place] [address] [place] Glucose [Mass/Vol] 108 mg/dL High 74-99 [facility] Comment on above: Order Comment: Nima macias Type: BLOOD SPECIMEN Ordering Facility: [facility] Address: [address] [place] [address], [address] [place] [address] Result Comment: The [place] Diabetes Association (ADA) provides guidance for cutoff [...] Standards of Medical Care in Diabetes 2016, [place] Diabetes Association. Diabetes Care. 2016.39(Suppl 1). Performed By: #### I NFTBP #### [facility] CLIA [id number] [address] [address] [place] Potassium [Moles/Vol] 4.5 mmol/L Normal 3.7-5.1 [facility] Comment on above: Order Comment: Speci men Type: BLOOD SPECIMEN Ordering Facility: [facility] Address: [address] [place] [address], [address], [place] [address] Performed By: #### I NFTBP #### [facility] CLIA [id number] [address] [place], [place] [address] [place] Protein [Mass/Vol] 7.6 g/dL Normal 6.3-8.0 [facility] Comment on above: Order Comment: Speci men Type: BLOOD SPECIMEN Ordering Facility: [facility] Address: [address] [place] [address], [address], [place] [address] Performed By: #### I NFTBP #### [facility] [place] [id number] [address] [place], [place] [address] [place] Sodium [Moles/Vol] 138 mmol/L Normal 136-144 [facility] Comment on above: Order Comment: Speci men Type: BLOOD SPECIMEN Ordering Facility: [facility] Address: [address] [place] [address], [address], [place] [address] Performed By: #### I NFTBP #### [facility] CLIA [id number] [address] [place] [address] [place] Urea nitrogen [Mass/Vol] 18 mg/dL Normal 7-21 [facility] Comment on above: Order Comment: Speci men Type: BLOOD SPECIMEN [facility] Address: [address] [place] [address], [address], [place] [address] Performed By: #### I NFTBP #### [facility] [place] [id number] [address] [place], [place] [address] [place] Ferritin SerPl-mCncon 2023 Ferritin [Mass/Vol] 59.3 ng/mL Normal 14.7-205.1 [facility] Comment on above: Order Comment: Speci men Type: BLOOD SPECIMEN Ordering Facility: [facility] Address: [address] [place] [address], [address], [place] [address] Performed By: #### I NFTBP #### [facility] CLIA [id number] [address] [place] [address] [place] Folate SerPl-mCncon 04-18-20 24 Folate [Mass/Vol] 16.8 ng/mL Normal >4.7 [facility] Comment on above: Order Comment: Speci men Type: BLOOD SPECIMEN Ordering Facility: [facility] Address: [address] [place] [address], [address] [address] Performed By: #### I NFTBP #### [facility] CLIA [id number] [address] [place] [address] [place] Iron and Iron binding capaci ty panelon 04-18-2024 Iron [Mass/Vol] 57 ug/dL Normal 41-186 [facility] Comment on above: Order Comment: Speci men Type: BLOOD SPECIMEN Ordering Facility: [facility] Address: [address] [place] [address], [address], [place] [address] Performed By: #### I NFTBP #### [facility] CLIA [id number] [address] [place] [address] [place] Iron binding capacity [Mass/Vol] 390 ug/dL High 232-386 [facility] Comment on above: Order Comment: Speci men Type: BLOOD SPECIMEN Ordering Facility: [facility] Address: [address] [place] [address], [address] [address] Performed By: #### I NFTBP #### [facility] CLIA [id number] [address] [place] [address] [place] Iron/TIBC [Molar ratio] 14.6 % Low 15.0-57.0 [facility] Comment on above: Order Comment: Speci men Type: BLOOD SPECIMEN Ordering Facility: [facility] Address: [address] [place] [address], [place] [address] Performed By: #### I NFTBP #### [facility] CLIA [id number] [address] [place] [address] [place] Vit [facility] Cobalamin (Vitamin B12) [Mass/Vol] 802 pg/mL Normal 232-1245 [facility] Comment on above: Order Comment: Nima macias Type: BLOOD SPECIMEN Ordering Facility: [facility] Address: [address] [place] [address], [place] [address] Performed By: #### I NFTBP #### [facility] CLIA [id number] [address] [place] [address] [place] CNPNon 04-08-2024 CNPN Telephone (HEMASA) MARGARET PRIETO ([id number]) 1990 F Date Time Provider Department 04/08/24 BELLO SUE During your visit today, we recorded the following information about you: Bello Sue RN 04/08/2024 2:22 PM Signed Letter of medical clearance and for pt to hold anticoagulation for minimum of 3 day (prefers 7) prior to surgery and resume day after. Pt scheduled to have a tubal ligation with endometrial ablation 04/25/24, with Dr Dickinson. Leonard: pt resumed Arixtra 10 mg 12/20/23, after not taking for > 3 years per note. Letter pended to review and sign, if agreeable. LENA Post Natalie, RN 04/10/2024 1:15 PM Signed Letter reviewed, signed and faxed to Dr Dickinson's office Bello Sue RN Allergies As of Date: 04/08/2024 Noted Allergy Reaction CIPROFLOXACIN 09/03/2019 4 - [...] Mary Carmen Salvador MA - Fully Assessed Reason for Visit: letter of medical clearance [Other] Prescriptions as of 04/10/2024 - metoclopramide HCl (REGLAN) 10 mg tablet [...] once daily. Problem List As Of Date 04/08/2024 Noted Resolved Factor V Leiden (HCC) [D68.51] 07/04/2018 Factor V deficiency (HCC) [D68.2] 12/22/2023 Letter Text Encounter Status:Closed by BELLO SUE on 04/10/24 Normal [facility] 04-02-2024 CNPN Telephone (HEMASA) MARGARET PRIETO ([id number]) 1990 F Date Time Provider Department 04/02/24 BELLO SUE HEMASA During your visit today, we recorded [...] Also i recently had labs done at [facility] and [facility] in [place] my thyroid is really off they did an ultrasound of my thyroid as well that hasnt come back yet. [facility] -[place]: Please obtain labs ([facility]) and US ([facility]) for Leonard to review. [facility] 04/02/2024 10:38 AM Signed Records are in. [facility] records pulled through Care Everywhere. Bello Sue RN 04/02/2024 10:43 AM Addendum Leonard: Please review and advise (Pt lab/OV 04/18/24) LENA Post Vivek, MD 04/13/2024 8:41 PM Addendum I would not mccloud for a diagnosis of MGUS as it is usually a clinically silent issue and more a result of other underlying concerns. ([facility]) We can talk more at your next appointment. I assume your PCP or set up inspector is managing your TSH / thyroid? Bello Sue RN 04/15/2024 9:16 AM Signed Responded via [employer] Bello Sue RN Allergies As of Date: [...] MA - Fully Assessed Prescriptions as of 04/15/2024 - metoclopramide HCl (REGLAN) 10 mg tablet [...] Status:Closed by BELLO SUE on 04/07/24 Normal [facility] BLOOD TB SCREENon 12-20-2023 M. tuberculosis tuberculin stim IFN-g Ql (Bld) Negative Normal [facility] Comment on above: Order Comment: Speci men Type: BLOOD SPECIMEN Ordering Facility: [facility] Address: [address] [place] [address], [address] [address] Performed By: #### I NFTBP #### [facility] CLIA [id number] [address] [place] [address] [place] MITOGEN MINUS NIL >9.99 Normal >=0.50 [facility] Comment on above: Order Comment: Speci men Type: BLOOD SPECIMEN Ordering Facility: [facility] [employer] [facility] Address: [address] [place] [address], [address], [place] [address] Performed By: #### I NFTBP #### [facility] CLIA [id number] [address] [place] [address] OF [place] TB GAMMA INTERPRETATION Infection with M. tuberculosis complex is unlikely. If latent tuberculosis infection is highly suspected, a negative result does not rule out the infection. Specimens from immunocompromised patients and those <5 years of age may show false negative results. In case of a contact investigation, please repeat 8-12 weeks after a known exposure. Normal [facility] Comment on above: Order Comment: Speci men Type: BLOOD SPECIMEN Ordering Facility: [facility] [employer] [facility] Address: [address] [place] [address], [address] [place] [address] Performed By: #### I NFTBP #### [facility] CLIA [id number] [address] [place] [address] TB NIL 0.01 IU/mL Normal <=8.00 [facility] Comment on above: Order Comment: Speci men Type: BLOOD SPECIMEN [facility] Address: [address] [place] [address], [address] [address] Performed By: #### I NFTBP #### [facility] CLIA [id number] [address] [place] [address] OF [place]IN[place] TB1 AG MINUS NIL 0.00 IU/mL Normal <0.35 [facility] Comment on above: Order Comment: Speci men Type: BLOOD SPECIMEN [facility] Address: [address] [place] [address], [address], [place] [address] Performed By: #### I NFTBP #### [facility] CLIA [id number] [address] [place] [address] [place] TB2 AG MINUS NIL 0.00 IU/mL Normal <0.35 [facility] Comment on above: Order Comment: Speci men Type: BLOOD SPECIMEN Ordering Facility: [facility] [employer] [facility] Address: [address] [place] [address], [address] [address] Performed By: #### I NFTBP #### [facility] CLIA [id number] [address] [place] [address] [place] CBC W Auto Differential pane l (Bld)on 12-20-2023 Basophils (Bld) [#/Vol] 0.05 10*3/uL Normal <0.11 [facility] Comment on above: Order Comment: Speci men Type: BLOOD SPECIMENOrdering Facility: [facility] Address: [address] [place] [address] Performed By: #### 5 7021-8 ####[facility] [id number] [place] [id number] Basophils/100 WBC (Bld) 0.5 % Normal [facility] Comment on above: Order Comment: Speci men Type: BLOOD SPECIMENOrdering Facility: [facility] Address: [address] [place] [address] Performed By: #### 5 7021-8 ####[facility] LAB[facility]IA [id number] [place] [address] Differential cell count method Nom (Bld) Auto Normal [facility] Comment on above: Order Comment: Speci men Type: BLOOD SPECIMENOrdering Facility: [facility] Address: [address] [place] [address] Performed By: #### 5 7021-8 ####[facility] LABCLIA [id number] [place] [address] Eosinophils (Bld) [#/Vol] 0.26 10*3/uL Normal <0.46 [facility] Comment on above: Order Comment: Speci men Type: BLOOD SPECIMENOrdering Facility: [facility] Address: [address] [place] [address] Performed By: #### 5 7021-8 ####[facility] LABCLIA [id number] [place] [address] Eosinophils/100 WBC (Bld) 2.6 % Normal [facility] Comment on above: Order Comment: Speci men Type: BLOOD SPECIMENOrdering Facility: [facility] Address: [address] [place] [address] Performed By: #### 5 7021-8 ####[facility] LABCLIA [id number] [place] [address] Erythrocyte distribution width (RBC) [Ratio] 14.6 % Normal 11.5-15.0 [facility] Comment on above: Order Comment: Speci men Type: BLOOD SPECIMENOrdering Facility: [facility] Address: [address] [place] [address] Performed By: #### 5 7021-8 ####[facility] LABCLIA [id number] [place] [address] Hematocrit (Bld) [Volume fraction] 40.9 % Normal 36.0-46.0 [facility] Comment on above: Order Comment: Speci men Type: BLOOD SPECIMENOrdering Facility: [facility] Address: [address] [place] [address] Performed By: #### 5 7021-8 ####[facility] LABCLIA [id number] [place] [address] Hemoglobin (Bld) [Mass/Vol] 13.1 g/dL Normal 11.5-15.5 [facility] Comment on above: Order Comment: Speci men Type: BLOOD SPECIMENOrdering Facility: [facility] Address: [address] [place] [address] Performed By: #### 5 7021-8 ####[facility] LABCLIA [id number] [place] [address] Immature granulocytes (Bld) [#/Vol] 0.04 10*3/uL Normal <0.10 [facility] Comment on above: Order Comment: Speci men Type: BLOOD SPECIMENOrdering Facility: [facility] Address: [address] [place] [address] Performed By: #### 5 7021-8 ####[facility] LABCLIA [id number] [place] [address] Immature granulocytes/100 WBC (Bld) 0.4 % Normal [facility] Comment on above: Order Comment: Speci men Type: BLOOD SPECIMENOrdering Facility: [facility] Address: [address] [place] [address] Performed By: #### 5 7021-8 ####[facility] LABCLIA [id number] [place] [address] Lymphocytes (Bld) [#/Vol] 1.75 10*3/uL Normal 1.00-4.00 [facility] Comment on above: Order Comment: Speci men Type: BLOOD SPECIMENOrdering Facility: [facility] Address: [address] [place] [address] Performed By: #### 5 7021-8 ####[facility] LABCLIA [id number] [place] [address] Lymphocytes/100 WBC (Bld) 17.4 % Normal [facility] Comment on above: Order Comment: Speci men Type: BLOOD SPECIMENOrdering Facility: [facility] Address: [address] [place] [address] Performed By: #### 5 7021-8 ####[facility] LABCLIA [id number] [place] [address] MCH (RBC) [Entitic mass] 25.6 pg Low 26.0-34.0 [facility] Comment on above: Order Comment: Speci men Type: BLOOD SPECIMENOrdering Facility: [facility] Address: [address] [place] [address] Performed By: #### 5 7021-8 ####[facility] LABCLIA [id number] [place] [address] MCHC (RBC) [Mass/Vol] 32.0 g/dL Normal 30.5-36.0 [facility] Comment on above: Order Comment: Speci men Type: BLOOD SPECIMENOrdering Facility: [facility] Address: [address] [place] [address] Performed By: #### 5 7021-8 ####[facility] LABCLIA [id number] [place] [address] MCV (RBC) [Entitic vol] 79.9 fL Low 80.0-100.0 [facility] Comment on above: Order Comment: Speci men Type: BLOOD SPECIMENOrdering Facility: [facility] Address: [address] [place] [address] Performed By: #### 5 7021-8 ####[facility]IA [id number] [place] [address] Monocytes (Bld) [#/Vol] 0.57 10*3/uL Normal <0.87 [facility] Comment on above: Order Comment: Speci men Type: BLOOD SPECIMENOrdering Facility: [facility] Address: [address] [place] [address] Performed By: #### 5 7021-8 ####[facility]IA [id number] [place] [address] Monocytes/100 WBC (Bld) 5.7 % Normal [facility] Comment on above: Order Comment: Speci men Type: BLOOD SPECIMENOrdering Facility: [facility] Address: [address] [place] [address] Performed By: #### 5 7021-8 ####[facility] LABCLIA [id number] [place] [address] Neutrophils (Bld) [#/Vol] 7.41 10*3/uL Normal 1.45-7.50 [facility] Comment on above: Order Comment: Speci men Type: BLOOD SPECIMENOrdering Facility: [facility] Address: [address] [place] [address] Performed By: #### 5 7021-8 ####[facility] LABCLIA [id number] [place] [address] Neutrophils/100 WBC (Bld) 73.4 % Normal [facility] Comment on above: Order Comment: Speci men Type: BLOOD SPECIMENOrdering Facility: [facility] Address: [address] [place] [address] Performed By: #### 5 7021-8 ####[facility] LABCLIA [id number] [place] [address] Nucleated RBC (Bld) [#/Vol] 10*3/uL Normal <0.01 [facility] Comment on above: Order Comment: Speci men Type: BLOOD SPECIMENOrdering Facility: [facility] Address: [address] [place] [address] Performed By: #### 5 7021-8 ####[facility] LABCLIA [id number] [place] [address] Nucleated RBC/100 WBC (Bld) [Ratio] 0.0 /100 WBC Normal [facility] Comment on above: Order Comment: Speci men Type: BLOOD SPECIMENOrdering Facility: [facility] Address: [address] [place] [address] Performed By: #### 5 7021-8 ####[facility]IA [id number] [place] [address] Platelet mean volume (Bld) [Entitic vol] 8.8 fL Low 9.0-12.7 [facility] Comment on above: Order Comment: Speci men Type: BLOOD SPECIMENOrdering Facility: [facility] Address: [address] [place] [address] Performed By: #### 5 7021-8 ####[facility]IA [id number] [place] [address] Platelets (Bld) [#/Vol] 327 10*3/uL Normal 150-400 [facility] Comment on above: Order Comment: Speci men Type: BLOOD SPECIMENOrdering Facility: [facility] Address: [address] [place] [address] Performed By: #### 5 7021-8 ####[facility]IA [id number] [place] [address] RBC (Bld) [#/Vol] 5.12 10*6/uL Normal 3.90-5.20 [facility] Comment on above: Order Comment: Speci men Type: BLOOD SPECIMENOrdering Facility: [facility] Address: [address] [place] [address] Performed By: #### 5 7021-8 ####[facility]IA [id number] [place] [address] WBC (Bld) [#/Vol] 10.08 10*3/uL Normal 3.70-11.00 [facility] Comment on above: Order Comment: Speci men Type: BLOOD SPECIMENOrdering Facility: [facility] Address: [address] [place] [address] Performed By: #### 5 7021-8 ####[facility]IA [id number] [place] [address] CNOVSPon 12-20-2023 CNOVS Visit (SP) Office ([facility]) MARGARET PRIETO ([id number]) 1990 F Date Time Provider Department 12/20/23 10:00 AM SHARIF JOSEPH During your visit today, we recorded the following information about you: Temperature Pulse Respiration Blood pressure 97.7 degrees 98/minute 16/minute 154/90 Weight 171.1 kg Sharif Joseph MD 12/22/2023 6:44 AM Signed NAME: Margaret Prieto CLINIC NO.: [id number] DATE OF SERVICE: December 20, 2023 (Jonelle) [...] anticoagulation injecti (more content not included)... Normal [facility] Comprehensive metabolic 2000 panelon 12-20-2023 Albumin [Mass/Vol] 3.7 g/dL Low 3.9-4.9 [facility] Comment on above: Order Comment: Nima macias Type: BLOOD SPECIMEN Ordering Facility: [employer] [facility] Address: [address] [place] [address], [address] [id number] Performed By: #### I NFTBP #### [facility] CLIA [id number] [address] [place] [address] [place] ALP [Catalytic activity/Vol] 85 U/L Normal 34-123 [facility] Comment on above: Order Comment: Nima macias Type: BLOOD SPECIMEN Ordering Facility: [employer] [facility] Address: [address] [place] [address], [address] [address] Performed By: #### I NFTBP #### [facility] CLIA [id number] [address] [place] [address] [place] ALT [Catalytic activity/Vol] 30 U/L Normal 7-38 [facility] Comment on above: Order Comment: Nima macias Type: BLOOD SPECIMEN Ordering Facility: [facility] [employer] [facility] Address: [address] [place] [address], [address] [id number] Performed By: #### I NFTBP #### [facility] CLIA [id number] [address] [place] [address] [place] Anion gap [Moles/Vol] 13 mmol/L Normal 9-18 [facility] Comment on above: Order Comment: Speci men Type: BLOOD SPECIMEN Ordering Facility: [facility] [employer] [facility] Address: [address] [place] [address], [address], [place] [address] Performed By: #### I NFTBP #### [facility] CLIA [id number] [address] [place] [address] [place] AST [Catalytic activity/Vol] 18 U/L Normal 13-35 [facility] Comment on above: Order Comment: Speci men Type: BLOOD SPECIMEN Ordering Facility: [facility] [employer] [facility] Address: [address] [place] [address], [address], [place] [address] Performed By: #### I NFTBP #### [facility] CLIA [id number] [address] [place] [address] [place] Bilirubin [Mass/Vol] 0.3 mg/dL Normal 0.2-1.3 [facility] Comment on above: Order Comment: Speci men Type: BLOOD SPECIMEN [facility] Address: [address] [place] [address], [address] [address] Performed By: #### I NFTBP #### [facility] CLIA [id number] [address] [place] [address] [place] Calcium [Mass/Vol] 9.4 mg/dL Normal 8.5-10.2 [facility] Comment on above: Order Comment: Speci men Type: BLOOD SPECIMEN [facility] Address: [address] [place] [address], [address], [place] [address] Performed By: #### I NFTBP #### [facility] CLIA [id number] [address] [place] [address] [place] Chloride [Moles/Vol] 106 mmol/L High 97-105 [facility] Comment on above: Order Comment: Speci men Type: BLOOD SPECIMEN [facility] Address: [address] [place] [address], [address] [id number] Performed By: #### I NFTBP #### [facility] [place] [id number] [address] [place] [address] [place] CO2 [Moles/Vol] 23 mmol/L Normal 22-30 [facility] Comment on above: Order Comment: Speci men Type: BLOOD SPECIMEN [facility]ing Facility: [facility] Address: [address] [place] [address], [address] [address] Performed By: #### I NFTBP #### [facility] [place] [id number] [address] [place] [address] [place] Creatinine [Mass/Vol] 0.81 mg/dL Normal 0.58-0.96 [facility] Comment on above: Order Comment: Speci men Type: BLOOD SPECIMEN Ordering Facility: [facility] Address: [address] [place] [address], [address], [place] [address] Performed By: #### I NFTBP #### [facility] [place] [id number] [address] [place] [address] OF [place]INH Creatinine and Glomerular filtration rate.predicted panel (S/P/Bld) 98 mL/min/1.73m??? Normal >=60 [facility] Comment on above: Order Comment: Speci men Type: BLOOD SPECIMEN Ordering Facility: [facility] Address: [address] [place] [address], [address] [place] [address] Result Comment: Faye mated Glomerular Filtration Rate [...] accurately reflect actual GFR. Performed By: #### I NFTBP #### [facility] [place] [id number] [address] [place] [address] [place] Glucose [Mass/Vol] 114 mg/dL High 74-99 [facility] Comment on above: Order Comment: Specfrancisco macias Type: BLOOD SPECIMEN Ordering Facility: [facility] Address: [address] [place] [address], [address] [address] Result Comment: The [place] Diabetes Association (ADA) provides guidance for cutoff [...] Standards of Medical Care in Diabetes 2016, [place] Diabetes Association. Diabetes Care. 2016.39(Suppl 1). Performed By: #### I NFTBP #### [facility] CLIA [id number] [address] [place] [address] [place] Potassium [Moles/Vol] 4.3 mmol/L Normal 3.7-5.1 [facility] Comment on above: Order Comment: Nima macias Type: BLOOD SPECIMEN Ordering Facility: [facility] Address: [address] [place] [address], [address] [address] Performed By: #### I NFTBP #### [facility] CLIA [id number] [address] [place] [address] [place] Protein [Mass/Vol] 7.9 g/dL Normal 6.3-8.0 [facility] Comment on above: Order Comment: Nima macias Type: BLOOD SPECIMEN Ordering Facility: [facility] Address: [address] [place] [address], [address], [place] [address] Performed By: #### I NFTBP #### [facility] CLIA [id number] [address] [place] [address] [place] Sodium [Moles/Vol] 142 mmol/L Normal 136-144 [facility] Comment on above: Order Comment: Speci men Type: BLOOD SPECIMEN Ordering Facility: [facility] Address: [address] [place] [address], [address], [place] [id number] Performed By: #### I NFTBP #### [facility] CLIA [id number] [address] [place] [address] [place] Urea nitrogen [Mass/Vol] 13 mg/dL Normal 7-21 [facility] Comment on above: Order Comment: Speci men Type: BLOOD SPECIMEN Ordering Facility: [facility] Address: [address] [place] [address], [address] [place], [place] [address] Performed By: #### I NFTBP #### [facility] CLIA [id number] [address] [place] [address] [place] Ferritin SerPl-mCncon 2023 Ferritin [Mass/Vol] 63.7 ng/mL Normal 14.7-205.1 [facility] Comment on above: Order Comment: Speci men Type: BLOOD SPECIMEN [facility]: [facility] Address: [address] [place] [address] Performed By: #### 5 7021-8 #### [facility] CLIA [id number] [address] [place] [address] Folate SerPl-mCncon 12-20-19 24 Folate [Mass/Vol] 13.9 ng/mL Normal >4.7 [facility] Comment on above: Order Comment: Speci men Type: BLOOD SPECIMENOrdering Facility: [facility] Address: [address] [place] [address] Performed By: #### 2 132-9, 2284-8 ####[facility] LABCLIA [id number] [place] [address] [place] HBV surface Ag Ser Qlon 04- HBV surface Ag Ql (S) Negative Normal Negative [facility] Comment on above: Order Comment: Speci men Type: BLOOD SPECIMEN Ordering Facility: [facility] Address: [address] [place] [address], [address] [place], [place] [address] Performed By: #### I NFTBP #### [facility] CLIA [id number] [address] [place] [address] [place] HCV Ab Ser Qlon 12-20-2023 HCV Ab Ql (S) Negative Normal Negative [facility] Comment on above: Order Comment: Speci men Type: BLOOD SPECIMEN Ordering Facility: [facility] Address: [address] [place] [address] Result Comment: The result suggests no evidence of active infection with Hepatitis C virus. Should recent infection be suspected, repeat testing may be considered 4-6 weeks after this draw. Performed By: #### 5 7021-8 #### [facility]ELISE[facility] CLIA [id number] [address] [place] [address] Hcys SerPl-sCncon 12-20-2023 Homocysteine [Moles/Vol] 7.4 umol/L Normal <15.1 [facility] Comment on above: Order Comment: Husseini gilberto Type: BLOOD SPECIMEN Ordering Facility: [facility] Address: [address] [place] [address] Performed By: #### 1 3965-9 #### [facility] CLIA [id number] [address] [place] [address] [place] Iron and Iron binding capaci ty panelon 12-20-2023 Iron [Mass/Vol] 35 ug/dL Low 41-186 [facility] Comment on above: Order Comment: Nima macias Type: BLOOD SPECIMEN Ordering Facility: [facility] Address: [address] [place] [address] Performed By: #### 5 7021-8 #### [facility] CLIA [id number] [address] [place] [address] Iron binding capacity [Mass/Vol] 339 ug/dL Normal 232-386 [facility] Comment on above: Order Comment: Speci men Type: BLOOD SPECIMEN Ordering Facility: [facility] Address: [address] [place] [address] Performed By: #### 5 7021-8 #### [facility] CLIA [id number] [address] [place] [address] Iron/TIBC [Molar ratio] 10.3 % Low 15.0-57.0 [facility] Comment on above: Order Comment: Speci men Type: BLOOD SPECIMEN Ordering Facility: [facility] Address: [address] [place] [address] Performed By: #### 5 7021-8 #### [facility] CLIA [id number] [address] [place] [address] Lipid 1996 panelon 4 Cholesterol [Mass/Vol] 173 mg/dL Normal <200 [facility] Comment on above: Order Comment: Speci men Type: BLOOD SPECIMEN Ordering Facility: [facility] Address: [address] [place] [address] Result Comment: <200 mg/dL, Desirable 200-239 mg/dL, Borderline high >239 mg/dL, High Performed By: #### 5 7021-8 #### [facility] CLIA [id number] [address] [place] [address] 39351 Cholesterol in HDL [Mass/Vol] 32 mg/dL Low >39 [facility] Comment on above: Order Comment: Speci men Type: BLOOD SPECIMEN Ordering Facility: [facility] Address: [address] [place] [address] Result Comment: 40-5 9 mg/dL, Acceptable >59 mg/dL, High: Negative risk factor for coronary heart disease <40 mg/dL, Low: Positive risk factor for coronary heart disease Performed By: #### 5 7021-8 #### [facility] CLIA [id number] [address] [place] [address] 77546 Cholesterol in LDL [Mass/Vol] 116 mg/dL High <100 [facility] Comment on above: Order Comment: Nima gilberto Type: BLOOD SPECIMEN Ordering Facility: [facility] Address: [address] [place] [address] Result Comment: <100 mg/dL, Optimal 100-129 mg/dL, Near optimal/above optimal 130-159 mg/dL, Borderline high 160-189 mg/dL, High >189 mg/dL, Very high Secondary prevention optimal LDL Cholesterol levels are recommended to be < 70 mg/dL Performed By: #### 5 7021-8 #### [facility] CLIA [id number] [address] [place] [address]13 Cholesterol in LDL/Cholesterol in HDL [Mass ratio] 3.63 {ratio} High <2.54 [facility] Comment on above: Order Comment: Nima macias Type: BLOOD SPECIMEN Ordering Facility: [facility] Address: [address] [place] [address] Result Comment: Refe rence: 1. National Cholesterol Education Program ATP III Guideline At-A-Glance Quick Desk Reference: National Heart, Lung, and Blood [place]. National Institutes of Health. 2001: NIH Publication No. 01-3305. 2. An International Atherosclerosis Society position paper: global recommendations for the management of dyslipidemia: executive summary, Atherosclerosis. 2014: 232(2):410-413. Performed By: #### 5 7021-8 #### [facility] CLIA [id number] [address] [place] [address]62 Cholesterol in VLDL [Mass/Vol] 25 mg/dL Normal <30 [facility] Comment on above: Order Comment: Nima macias Type: BLOOD SPECIMEN Ordering Facility: [facility] Address: [address] [place] [address] Performed By: #### 5 7021-8 #### [facility] CLIA [id number] [address] [place] [address] 87953 Cholesterol non HDL [Mass/Vol] 141 mg/dL High <130 [facility] Comment on above: Order Comment: Nima gilberto Type: BLOOD SPECIMEN Ordering Facility: [facility] Address: [address] [place] [address] Result Comment: <130 mg/dL, Optimal 130-159 mg/dL, Near optimal/above optimal 160-189 mg/dL, Borderline high 190-219 mg/dL, High >219 mg/dL, Very high Secondary prevention optimal non HDL Cholesterol levels are recommended to be <100 mg/dL Performed By: #### 5 7021-8 #### [facility] CLIA [id number] [address] [place] [address]3540 Cholesterol.total/Ch olesterol in HDL [Mass ratio] 5.41 {ratio} High <5.10 [facility] Comment on above: Order Comment: Speci men Type: BLOOD SPECIMEN Ordering Facility: [facility] Address: [address] [place] [address] Performed By: #### 5 7021-8 #### [facility] CLIA [id number] [address] [place] [address] FASTING TIME 12 hrs Normal [facility] Comment on above: Order Comment: Speci men Type: BLOOD SPECIMEN Ordering Facility: [facility] Address: [address] [place] [address] Performed By: #### 5 7021-8 #### [facility] CLIA [id number] [address] [place] [address] 11603 Triglyceride [Mass/Vol] 126 mg/dL Normal <150 [facility] Comment on above: Order Comment: Speci men Type: BLOOD SPECIMEN Ordering Facility: [facility] Address: [address] [place] [address] Result Comment: <150 mg/dL, Normal 150-199 mg/dL, Borderline high 200-499 mg/dL, High >499 mg/dL, Very high Performed By: #### 5 7021-8 #### [facility] CLIA [id number] [address] [place] [address]24 [facility] 024 Cobalamin (Vitamin B12) [Mass/Vol] 738 pg/mL Normal 232-1245 [facility] Comment on above: Order Comment: Speci men Type: BLOOD SPECIMEN Ordering Facility: [facility] Address: [address] [place] [address] Performed By: #### 5 7021-8 #### [facility] CLIA [id number] [address] [place] [address] 43077 XR CHEST 2 VWSon 12-12-2023 XR CHEST 2 VWS XR CHEST 2 VWS PA and lateral chest: HISTORY: Shortness of breath. 2 views of the chest are obtained. Lungs are clear. There is no consolidation or effusion. No pneumothorax. Osseous appear intact. Cardiac and mediastinal contours are unremarkable. IMPRESSION: No acute findings. Finalized by Tarun Rodríguez MD on 12/12/2023 2:25 PM Normal [facility] H PYLORI SCREENon 12-10-2023 H. pylori Org specific cx Ql (Roland fld) Negative Normal NEG [facility] Comment on above: Performed By: #### 4 4015-6 #### [facility] ([id number]) [address] [place] [address], [address] [place] [address] HCG ( test) Ql (U)o n 12-10-2023 Beta HCG ( test) Ql (U) Negative Normal NEG [facility] Comment on above: Performed By: #### P INR, 64796-0 #### [facility] ([id number]) [address] [facility], [place] [address] #### BMP #### [facility] ([id number]) [address] [place] [address], [address] [place] [address] Surgical Pathologyon 024 Surgical Pathology Normal [facility] Comment on above: Result Comment: [facility] [employer] [facility] [address] [place] [address] Surgical Pathology Consultation Patient Name:MARGARET PRIETO:1990 (Age: 33)Gender:FTaken:4Reported:4Physician(s):Collins Mejia D.O. ([phone])Copy To: Rec. #:[id number]: #[id number] Final Pathologic Diagnosis 1. Antrum biopsy: Fragments of gastric mucosa with no significant histopathologic abnormality 2. Distal esophagus biopsy: Fragment of gastric cardia mucosa with reactive changes suggestive of mild chronic reflux-related changes Squamous mucosa, dysplasia or intestinal metaplasia is not identified Report Electronically Signed Out nsk/12/18/2023Halina Fraga MD Interpretation performed at [facility], [address] [place] [address], License number: [id number]. Clinical History Gastroesophageal reflux, nausea, vomiting. Gross Description 1. Received in formalin labeled, MORHART, antrum are 2 pale-herrera delicate soft tissue fragments, each 0.4 cm in greatest dimension. The specimens are filtered and submitted in a single cassette. (1, ns, [id number], m4) TB 2. Received in formalin labeled, MORHART, distal esophagus is a pale-herrera delicate soft tissue bit, 0.3 cm in greatest dimension. The specimen is filtered and submitted in a single cassette. (1, ns, [id number], m4) TB tgb/12/11/2023NSK Specimen(s) Received 1: Antrum biopsy 2: Distal esophagus biopsy Fee Codes(s): 1; 31201 2; 22083 Cytologyon 12-07-2023 Cytology Normal [facility] Comment on above: Result Comment: [facility] [employer] [facility] [address] [place] [address] Gynecologic Cytology Consultation Patient Name:MARGARET PRIETO:1990 (Age: 33)Gender:FTaken:4Reported:4Physician(s):Harley Thacker C.N.P. ([phone])Copy To: Rec. #:[id number]: #[id number] Final Cytologic Interpretation ThinPrep Pap Test (Vaginal/Cervical): Satisfactory for evaluation. A transformazion zone component is not identified via imaging-assisted review, using [employer] Thin Prep Imaging System, within 22 microscopic chan of view. NEGATIVE FOR INTRAEPITHELIAL LESION OR MALIGNANCY. [facility]12/24/2023 Interpretation performed at [facility], [address] [place] [address], License number: [id number]. 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 ([employer]) Fee Code(s): G0145 HGB A1C (GLYCO-HGB)on 2023 Glucose [Mass/Vol] 123 mg/dL Normal [facility] Comment on above: Performed By: #### T SHR #### [facility] ([id number]) [address] [place] [address], [address] [place] [address] HbA1c (Bld) [Mass fraction] 5.9 % High 4.4-5.6 [facility] Comment on above: Result Comment: NOTE ADA Guidelines Result HgbA1c Normal : less than 5.7 % Prediabetes : 5.7 % to 6.4 % Diabetes : > 6.4 % Use with caution in patients with abnormal hemoglobin variants as the half-life of red blood cells and in vivo glycation rates are affected. Performed By: #### T SHR #### [facility] ([id number]) [address] [place] [address], [address] [place] [address] HIGH RISK HPV W/GENOon 12-06 HPV 31+33+35+39+45+51+52 +56+58+59+66+68 DNA EVARISTO+probe Ql (Cvx) HPV SPECIMEN TYPE ThinPrep HPV 16 Negative (qualifier value) HPV 18 Negative (qualifier value) OTHER HIGH RISK HPV Negative (qualifier value) HPV types 31,33,35,39,45,52,56, 58,59,66 and 68 DNA were undetectable. Normal [facility] Comment on above: Performed By: #### 7 1431-1 #### [facility] ([id number]) [address] [facility], [place] [address] [facility] ([id number]) [address] [facility], [address] [place] [address] Hemoglobin A1con 12-07-2023 Average glucose Estimated from glycated hemoglobin (Bld) [Mass/Vol] 123 mg/dL [facility] HbA1c (Bld) [Mass fraction] 5.9 % High 4.4 - 5.6 % [facility] Comment on above: NOTE ADA Guidelines Result HgbA1c Normal : less than 5.7 % Prediabetes : 5.7 % to 6.4 % Diabetes : > 6.4 % Use with caution in patients with abnormal hemoglobin variants as the half-life of red blood cells and in vivo glycation rates are affected. Interpretation and review of laboratory results Abnormal [facility] TSH WITH REFLEXon 12-07-2023 TSH 3.01 uIU/mL Normal 0.49-4.67 [facility] Comment on above: Performed By: #### T SHR #### [facility] ([id number]) [address] [facility], [address] [place] [address] TSH with Reflexon 12-07-2023 TSH Qn 3.01 m[IU]/L [facility] FERRITIN BLDon 11-30-2023 Ferritin [Mass/Vol] 72.5 ng/mL 14.7 - 2 05.1 ng/mL [facility] FOLATE SERUMon 11-30-2023 Folate [Mass/Vol] 12.6 ng/mL >4.7 ng/mL [facility] Iron and Iron binding capaci ty panelon 11-30-2023 Iron [Mass/Vol] 34 ug/dL Low 41 - 186 ug/dL [facility] Iron binding capacity [Mass/Vol] 375 ug/dL 232 - 386 ug/dL [facility] Iron/TIBC [Molar ratio] 9.1 % Low 15.0 - 57.0 % [facility] VITAMIN B12 BLOODon 11-30-19 Cobalamin (Vitamin B12) [Mass/Vol] 740 pg/mL 232 - 1,245 pg/mL [facility] CBC W Auto Differential pane l (Bld)on 11-29-2023 Basophils (Bld) [#/Vol] 0.06 10*3/uL <0.11 k/uL [facility] Basophils/100 WBC (Bld) 0.5 % [facility] Differential cell count method Nom (Bld) Auto [facility] Eosinophils (Bld) [#/Vol] 0.30 10*3/uL <0.46 k/uL [facility] Eosinophils/100 WBC (Bld) 2.4 % [facility] Erythrocyte distribution width (RBC) [Ratio] 14.7 % 11.5 - 15.0 % [facility] Hematocrit (Bld) [Volume fraction] 41.9 % 36.0 - 46.0 % [facility] Hemoglobin (Bld) [Mass/Vol] 13.6 g/dL 11.5 - 15.5 g/dL [facility] Immature granulocytes (Bld) [#/Vol] 0.05 10*3/uL <0.10 k/uL [facility] Immature granulocytes/100 WBC (Bld) 0.4 % [facility] Lymphocytes (Bld) [#/Vol] 1.86 10*3/uL 1.00 - 4.00 k/uL [facility] Lymphocytes/100 WBC (Bld) 15.1 % [facility] MCH (RBC) [Entitic mass] 25.9 pg Low 26.0 - 34.0 pg [facility] MCHC (RBC) [Mass/Vol] 32.5 g/dL 30.5 - 36.0 g/dL [facility] MCV (RBC) [Entitic vol] 79.8 fL Low 80.0 - 100.0 fL [facility] Monocytes (Bld) [#/Vol] 0.74 10*3/uL <0.87 k/uL [facility] Monocytes/100 WBC (Bld) 6.0 % [facility] Neutrophils (Bld) [#/Vol] 9.33 10*3/uL High 1.45 - 7.50 k/uL [facility] Neutrophils/100 WBC (Bld) 75.6 % [facility] Nucleated RBC (Bld) [#/Vol] <0.01 k/uL [facility] Nucleated RBC/100 WBC (Bld) [Ratio] 0.0 /100 WBC [facility] Platelet mean volume (Bld) [Entitic vol] 8.9 fL Low 9.0 - 12.7 fL [facility] Platelets (Bld) [#/Vol] 387 10*3/uL 150 - 400 k/uL [facility] RBC (Bld) [#/Vol] 5.25 10*6/uL High 3.90 - 5.2 0 m/uL [facility] WBC (Bld) [#/Vol] 12.34 10*3/uL High 3.70 - 11 .00 k/uL [facility] Basophils (Bld) [#/Vol] 0.06 10*3/uL Normal <0.11 [facility] Comment on above: Order Comment: Speci men Type: BLOOD SPECIMEN Ordering Facility: [facility] Address: [address] [place] [address], [address] [place] [address] Performed By: #### I NFTBP #### [facility] CLIA [id number] [address] [place] [address] [place] Basophils/100 WBC (Bld) 0.5 % Normal [facility] Comment on above: Order Comment: Speci men Type: BLOOD SPECIMEN Ordering Facility: [facility] [employer] [facility] Address: [address] [place] [address], [address] [place] [address] Performed By: #### I NFTBP #### [facility] CLIA [id number] [address] [place] [address] [place] Differential cell count method Nom (Bld) Auto Normal [facility] Comment on above: Order Comment: Speci men Type: BLOOD SPECIMEN Ordering Facility: [facility] Address: [address] [place] [address], [address] [place] [address] Performed By: #### I NFTBP #### [facility] CLIA [id number] [address] [place] [address] [place] Eosinophils (Bld) [#/Vol] 0.30 10*3/uL Normal <0.46 [facility] Comment on above: Order Comment: Speci men Type: BLOOD SPECIMEN Ordering Facility: [facility] Address: [address] [place] [address], [address], [place] [address] Performed By: #### I NFTBP #### [facility] CLIA [id number] [address] [place] [address] [place] Eosinophils/100 WBC (Bld) 2.4 % Normal [facility] Comment on above: Order Comment: Speci men Type: BLOOD SPECIMEN Ordering Facility: [facility] Address: [address] [place] [address], [address], [place] [address] Performed By: #### I NFTBP #### [facility] [place] [id number] [address] [place] [address] [place] Erythrocyte distribution width (RBC) [Ratio] 14.7 % Normal 11.5-15.0 [facility] Comment on above: Order Comment: Speci men Type: BLOOD SPECIMEN Ordering Facility: [facility] Address: [address] [place] [address], [address], [place] [address] Performed By: #### I NFTBP #### [facility] [place] [id number] [address] [place] [address] [place] Hematocrit (Bld) [Volume fraction] 41.9 % Normal 36.0-46.0 [facility] Comment on above: Order Comment: Speci men Type: BLOOD SPECIMEN Ordering Facility: [facility] [employer] [facility] Address: [address] [place] [address], [address], [place] [address] Performed By: #### I NFTBP #### [facility] [place] [id number] [address] [place] [address] [place] Hemoglobin (Bld) [Mass/Vol] 13.6 g/dL Normal 11.5-15.5 [facility] Comment on above: Order Comment: Speci men Type: BLOOD SPECIMEN Ordering Facility: [facility] Address: [address] [place] [address], [address] [id number] Performed By: #### I NFTBP #### [facility] CLIA [id number] [address] [place] [address] [place] Immature granulocytes (Bld) [#/Vol] 0.05 10*3/uL Normal <0.10 [facility] Comment on above: Order Comment: Speci men Type: BLOOD SPECIMEN Ordering Facility: [facility] Address: [address] [place] [address], [address] [id number] Performed By: #### I NFTBP #### [facility] CLIA [id number] [address] [place] [address] [place] Immature granulocytes/100 WBC (Bld) 0.4 % Normal [facility] Comment on above: Order Comment: Speci men Type: BLOOD SPECIMEN Ordering Facility: [facility] Address: [address] [place] [address], [address] [place] [address] Performed By: #### I NFTBP #### [facility] CLIA [id number] [address] [place] [address] [place] Lymphocytes (Bld) [#/Vol] 1.86 10*3/uL Normal 1.00-4.00 [facility] Comment on above: Order Comment: Speci men Type: BLOOD SPECIMEN Ordering Facility: [facility] Address: [address] [place] [address], [address] [address] Performed By: #### I NFTBP #### [facility] CLIA [id number] [address] [place] [address] [place] Lymphocytes/100 WBC (Bld) 15.1 % Normal [facility] Comment on above: Order Comment: Speci men Type: BLOOD SPECIMEN Ordering Facility: [facility] Address: [address] [place] [address], [address] [address] Performed By: #### I NFTBP #### [facility] CLIA [id number] [address] [place] [address] [place] MCH (RBC) [Entitic mass] 25.9 pg Low 26.0-34.0 [facility] Comment on above: Order Comment: Speci men Type: BLOOD SPECIMEN Ordering Facility: [facility] Address: [address] [place] [address], [address], [place] [address] Performed By: #### I NFTBP #### [facility] CLIA [id number] [address] [place] [address] [place] MCHC (RBC) [Mass/Vol] 32.5 g/dL Normal 30.5-36.0 [facility] Comment on above: Order Comment: Speci men Type: BLOOD SPECIMEN Ordering Facility: [facility] Address: [address] [place] [address], [address], [place] [address] Performed By: #### I NFTBP #### [facility] CLIA [id number] [address] [place] [address] [place] MCV (RBC) [Entitic vol] 79.8 fL Low 80.0-100.0 [facility] Comment on above: Order Comment: Speci men Type: BLOOD SPECIMEN Ordering Facility: [facility] Address: [address] [place] [address], [address], [place] [address] Performed By: #### I NFTBP #### [facility] CLIA [id number] [address] [place] [address] [place] Monocytes (Bld) [#/Vol] 0.74 10*3/uL Normal <0.87 [facility] Comment on above: Order Comment: Speci men Type: BLOOD SPECIMEN Ordering Facility: [facility] Address: [address] [place] [address], [address], [place] [address] Performed By: #### I NFTBP #### [facility] CLIA [id number] [address] [place] [address] [place] Monocytes/100 WBC (Bld) 6.0 % Normal [facility] Comment on above: Order Comment: Speci men Type: BLOOD SPECIMEN Ordering Facility: [facility] Address: [address] [place] [address], [address], [place] [address] Performed By: #### I NFTBP #### [facility] CLIA [id number] [address] [place] [address] [place] Neutrophils (Bld) [#/Vol] 9.33 10*3/uL High 1.45-7.50 [facility] Comment on above: Order Comment: Speci men Type: BLOOD SPECIMEN Ordering Facility: [facility] [employer] [facility] Address: [address] [place] [address], [address], [place] [address] Performed By: #### I NFTBP #### [facility] CLIA [id number] [address] [place] [address] [place] Neutrophils/100 WBC (Bld) 75.6 % Normal [facility] Comment on above: Order Comment: Speci men Type: BLOOD SPECIMEN Ordering Facility: [facility] [employer] [facility] Address: [address] [place] [address], [address], [place] [address] Performed By: #### I NFTBP #### [facility] CLIA [id number] [address] [place], [place] [address] [place] Nucleated RBC (Bld) [#/Vol] 10*3/uL Normal <0.01 [facility] Comment on above: Order Comment: Speci men Type: BLOOD SPECIMEN Ordering Facility: [facility] [employer] [facility] Address: [address] [place] [address], [address], [place] [address] Performed By: #### I NFTBP #### [facility] CLIA [id number] [address] [place] [address] [place] Nucleated RBC/100 WBC (Bld) [Ratio] 0.0 /100 WBC Normal [facility] Comment on above: Order Comment: Speci men Type: BLOOD SPECIMEN Ordering Facility: [facility] Address: [address] [place] [address], [address], [place] [address] Performed By: #### I NFTBP #### [facility] CLIA [id number] [address] [place] [address] [place] Platelet mean volume (Bld) [Entitic vol] 8.9 fL Low 9.0-12.7 [facility] Comment on above: Order Comment: Speci men Type: BLOOD SPECIMEN Ordering Facility: [facility] [employer] [facility] Address: [address] [place] [address], [address], [place] [address] Performed By: #### I NFTBP #### [facility] CLIA [id number] [address] [place] [address] [place] Platelets (Bld) [#/Vol] 387 10*3/uL Normal 150-400 [facility] Comment on above: Order Comment: Speci men Type: BLOOD SPECIMEN Ordering Facility: [facility] Address: [address] [place] [address], [address] [address] Performed By: #### I NFTBP #### [facility] CLIA [id number] [address] [place] [address] [place] RBC (Bld) [#/Vol] 5.25 10*6/uL High 3.90-5.20 [facility] Comment on above: Order Comment: Speci men Type: BLOOD SPECIMEN Ordering Facility: [facility] [employer] [facility] Address: [address] [place] [address], [address], [place] [address] Performed By: #### I NFTBP #### [facility] CLIA [id number] [address] [facility] [id number] [address] [place] WBC (Bld) [#/Vol] 12.34 10*3/uL High 3.70-11.00 [facility] Comment on above: Order Comment: Speci men Type: BLOOD SPECIMEN Ordering Facility: [facility] Address: [address] [place] [address], [address], [place] [id number] Performed By: #### I NFTBP #### [facility] CLIA [id number] [address] [facility] [place] [address] [place] CNOVSPon 11-29-2023 CNOVSP Visit (SP) Office ([place]) MARGARET PRIETO ([id number]) 1990 F Date Time Provider Department 11/29/23 11:15 AM SHARIF JOSEPH During your visit today, we recorded the following information about you: Temperature Pulse Respiration Blood pressure 97.6 degrees 98/minute 16/minute 159/100 Weight Height 172.8 kg 1.651 m Sharif Joseph MD 12/05/2023 9:50 AM Signed NAME: Margaret Prieto CLINIC NO.: [id number] DATE OF SERVICE: November 29, 2023 (Jonelle) [...] including ECHO from 11/13/2022 and 11/23/2023 from [facility] which states -Echogenic density seen wihin [...] Xray orde (more content not included)... Normal [facility] Comprehensive metabolic 2000 panelon 11-29-2023 Albumin [Mass/Vol] 3.8 g/dL Low 3.9 - 4.9 g/dL [facility] ALP [Catalytic activity/Vol] 91 U/L 34 - 123 U/L [facility] ALT [Catalytic activity/Vol] 22 U/L 7 - 38 U/L [facility] Anion gap [Moles/Vol] 11 mmol/L 9 - 18 mmol/L [facility] AST [Catalytic activity/Vol] 17 U/L 13 - 35 U/L [facility] Bilirubin [Mass/Vol] 0.3 mg/dL 0.2 - 1 .3 mg/dL [facility] Calcium [Mass/Vol] 9.4 mg/dL 8.5 - 10. 2 mg/dL [facility] Chloride [Moles/Vol] 105 mmol/L 97 - 10 5 mmol/L [facility] CO2 [Moles/Vol] 24 mmol/L 22 - 30 mmol/L [facility] Creatinine [Mass/Vol] 0.83 mg/dL 0.58 - 0.96 mg/dL [facility] Estimated Glomerular Filtration Rate 95 mL/min/1.73m >=60 mL/min/1.73m [facility] Glucose [Mass/Vol] 117 mg/dL High 74 - 99 mg/dL [facility] Potassium [Moles/Vol] 4.4 mmol/L 3.7 - 5.1 mmol/L [facility] Protein [Mass/Vol] 8.1 g/dL High 6.3 - 8.0 g/dL [facility] Sodium [Moles/Vol] 140 mmol/L 136 - 144 mmol/L [facility] Urea nitrogen [Mass/Vol] 10 mg/dL 7 - 21 mg/dL [facility] Albumin [Mass/Vol] 3.8 g/dL Low 3.9-4.9 [facility] Comment on above: Order Comment: Speci men Type: BLOOD SPECIMEN Ordering Facility: [facility] Address: [address] [place] [address] Performed By: #### 5 7021-8 #### [facility] CLIA [id number] [address] [place] [address] ALP [Catalytic activity/Vol] 91 U/L Normal 34-123 [facility] Comment on above: Order Comment: Speci men Type: BLOOD SPECIMEN Ordering Facility: [facility] Address: [address] [place] [address] Performed By: #### 5 7021-8 #### [facility] CLIA [id number] [address] [place] [address] ALT [Catalytic activity/Vol] 22 U/L Normal 7-38 [facility] Comment on above: Order Comment: Speci men Type: BLOOD SPECIMEN Ordering Facility: [facility] Address: [address] [place] [address] Performed By: #### 5 7021-8 #### [facility] CLIA [id number] [address] [place] [address] Anion gap [Moles/Vol] 11 mmol/L Normal 9-18 [facility] Comment on above: Order Comment: Speci men Type: BLOOD SPECIMEN Ordering Facility: [facility] Address: [address] [place] [id number] Performed By: #### 5 7021-8 #### [facility] CLIA [id number] [address] [place] [address] AST [Catalytic activity/Vol] 17 U/L Normal 13-35 [facility] Comment on above: Order Comment: Speci men Type: BLOOD SPECIMEN Ordering Facility: [facility] Address: [address] [place] [address] Performed By: #### 5 7021-8 #### [facility] CLIA [id number] [address] [place] [address] Bilirubin [Mass/Vol] 0.3 mg/dL Normal 0.2-1.3 [facility] Comment on above: Order Comment: Speci men Type: BLOOD SPECIMEN Ordering Facility: [facility] Address: [address] [place] [address] Performed By: #### 5 7021-8 #### [facility] CLIA [id number] [address] [place] [address] Calcium [Mass/Vol] 9.4 mg/dL Normal 8.5-10.2 [facility] Comment on above: Order Comment: Speci men Type: BLOOD SPECIMEN Ordering Facility: [facility] Address: [address] [place] [address] Performed By: #### 5 7021-8 #### [facility] CLIA [id number] [address] [place] [address] Chloride [Moles/Vol] 105 mmol/L Normal 97-105 [facility] Comment on above: Order Comment: Speci men Type: BLOOD SPECIMEN Ordering Facility: [facility] Address: [address] [place], [place] [address] Performed By: #### 5 7021-8 #### [facility] CLIA [id number] [address] [place] [address] CO2 [Moles/Vol] 24 mmol/L Normal 22-30 [facility] Comment on above: Order Comment: Speci men Type: BLOOD SPECIMEN Ordering Facility: [facility] Address: [address] [place] [address] Performed By: #### 5 7021-8 #### [facility] CLIA [id number] [address] [place] [address] Creatinine [Mass/Vol] 0.83 mg/dL Normal 0.58-0.96 [facility] Comment on above: Order Comment: Speci men Type: BLOOD SPECIMEN Ordering Facility: [facility] Address: [address] [place] [address] Performed By: #### 5 7021-8 #### [facility] CLIA [id number] [address] [place] [address] Creatinine and Glomerular filtration rate.predicted panel (S/P/Bld) 95 mL/min/1.73m??? Normal >=60 [facility] Comment on above: Order Comment: Speci men Type: BLOOD SPECIMEN Ordering Facility: [facility] Address: [address] [place] [address] Result Comment: Faye mated Glomerular Filtration Rate [...] accurately reflect actual GFR. Performed By: #### 5 7021-8 #### [facility] CLIA [id number] [address] [place] [address] Glucose [Mass/Vol] 117 mg/dL High 74-99 [facility] Comment on above: Order Comment: Nima macias Type: BLOOD SPECIMEN Ordering Facility: [facility] Address: [address] [place] [address] Result Comment: The [place] Diabetes Association (ADA) provides guidance for cutoff [...] Standards of Medical Care in Diabetes 2016, [place] Diabetes Association. Diabetes Care. 2016.39(Suppl 1). Performed By: #### 5 7021-8 #### [facility] CLIA [id number] [address] [place] [address] Potassium [Moles/Vol] 4.4 mmol/L Normal 3.7-5.1 [facility] Comment on above: Order Comment: Nima macias Type: BLOOD SPECIMEN Ordering Facility: [facility] Address: [address] [place] [address] Performed By: #### 5 7021-8 #### [facility] CLIA [id number] [address] [place] [address] Protein [Mass/Vol] 8.1 g/dL High 6.3-8.0 [facility] Comment on above: Order Comment: Nima macias Type: BLOOD SPECIMEN Ordering Facility: [facility] Address: [address] [place] [address] Performed By: #### 5 7021-8 #### [facility] CLIA [id number] [address] [place] [address] Sodium [Moles/Vol] 140 mmol/L Normal 136-144 [facility] Comment on above: Order Comment: Speci men Type: BLOOD SPECIMEN Ordering Facility: [facility] Address: [address] [place] [address] Performed By: #### 5 7021-8 #### [facility] CLIA [id number] [address] [place] [address] Urea nitrogen [Mass/Vol] 10 mg/dL Normal 7-21 [facility] Comment on above: Order Comment: Speci men Type: BLOOD SPECIMEN Ordering Facility: [facility] Address: [address] [place] [address] Performed By: #### 5 7021-8 #### [facility] CLIA [id number] [address] [place] [address] Ferritin SerPl-mCncon 2023 Ferritin [Mass/Vol] 72.5 ng/mL Normal 14.7-205.1 [facility] Comment on above: Order Comment: Speci men Type: BLOOD SPECIMEN Ordering Facility: [facility] Address: [address] [place] [address] Performed By: #### 5 7021-8 #### [facility] CLIA [id number] [address] [place] [address] Folate SerPl-mCncon 11-29-19 24 Folate [Mass/Vol] 12.6 ng/mL Normal >4.7 [facility] Comment on above: Order Comment: Speci men Type: BLOOD SPECIMEN Ordering Facility: [facility] Address: [address] [place] [address] Performed By: #### 5 7021-8 #### [facility] CLIA [id number] [address] [place] [address] Iron and Iron binding capaci ty panelon 11-29-2023 Iron [Mass/Vol] 34 ug/dL Low 41-186 [facility] Comment on above: Order Comment: Speci men Type: BLOOD SPECIMEN Ordering Facility: [facility] Address: [address] [place] [address] Performed By: #### 5 7021-8 #### [facility] CLIA [id number] [address] [place] [address] Iron binding capacity [Mass/Vol] 375 ug/dL Normal 232-386 [facility] Comment on above: Order Comment: Speci men Type: BLOOD SPECIMEN Ordering Facility: [facility] Address: [address] [place] [address] Performed By: #### 5 7021-8 #### [facility] CLIA [id number] [address] [place] [address] Iron/TIBC [Molar ratio] 9.1 % Low 15.0-57.0 [facility] Comment on above: Order Comment: Speci men Type: BLOOD SPECIMEN Ordering Facility: [facility] Address: [address] [place] [address] Performed By: #### 5 7021-8 #### [facility] CLIA [id number] [address] [place] [address] Vit B12 [facility] 024 Cobalamin (Vitamin B12) [Mass/Vol] 740 pg/mL Normal 232-1245 [facility] Comment on above: Order Comment: Speci men Type: BLOOD SPECIMEN Ordering Facility: [facility] Address: [address] [place], [place] [address] Performed By: #### 5 7021-8 #### [facility] CLIA [id number] [address] [place] [address] CTA CHESTon 11-18-2023 CT CTA CHEST [...] Perry MD on 11/18/2023 10:30 AM Normal [facility] XR CHEST 2 VWSon 11-15-2023 XR CHEST [...] Rodríguez MD on 11/15/2023 9:26 AM Normal [facility] APTTon 11-09-2023 aPTT Coag (PPP) [Time] 30 s [facility] Comment on above: NEW REFERENCE RANGE BASIC METABOLIC PANLon 11-08 Anion gap [Moles/Vol] 9 mmol/L Normal 5-15 [facility] Comment on above: Performed By: #### P INR, 97000-6 #### [facility] ([id number]) [address] [place] [address] #### BMP #### [facility] ([id number]) [address], [address] [place] [address] Calcium [Mass/Vol] 8.8 mg/dL Normal 8.5-10.5 [facility] Comment on above: Performed By: #### P INR, 18012-3 #### [facility] ([id number]) [address] [place] [address] #### BMP #### [facility] ([id number]) [address] [place] [address] Chloride [Moles/Vol] 103 mmol/L Normal 98-109 [facility] Comment on above: Performed By: #### P INR, 78223-2 #### [facility] ([id number]) [address] [place] [address] #### BMP #### [facility] ([id number]) [address] [place] [address] CO2 [Moles/Vol] 27 mmol/L Normal 22-32 [facility] Comment on above: Performed By: #### P INR, 57142-2 #### [facility] ([id number]) [address] [place] [address] #### BMP #### [facility] ([id number]) [address], [address] [place] [address] Creatinine [Mass/Vol] 0.70 mg/dL Normal 0.40-1.00 [facility] Comment on above: Result Comment: METH OD TRACEABLE TO IDMS STANDARD Performed By: #### P INR, 59069-3 #### [facility] ([id number]) [address] [place] [address]857 #### BMP #### [facility] ([id number]) [address] [place] [address] eGFR (CKD-EPI) NON-RACE DEPENDENT >90 Normal >59 [facility] Comment on above: Result Comment: Reported eGFR is based on the CKD-EPI 2020 equation that does not use a race coefficient. Performed By: #### P INR, 39973-1 #### [facility] ([id number]) [address] [place] [address] #### BMP #### [facility] ([id number]) [address], [address] [place] [address] Glucose [Mass/Vol] 116 mg/dL High 65-99 [facility] Comment on above: Performed By: #### P INR, 72484-1 #### [facility] ([id number]) [address] [place] [address] #### BMP #### [facility] ([id number]) [address], [address] [place] [address] Potassium [Moles/Vol] 3.9 mmol/L Normal 3.5-5.0 [facility] Comment on above: Performed By: #### P INR, 60133-6 #### [facility] ([id number]) [address] [place] [address] #### BMP #### [facility] ([id number]) [address], [address] [place] [address] Sodium [Moles/Vol] 139 mmol/L Normal 134-146 [facility] Comment on above: Performed By: #### P INR, 92683-5 #### [facility] ([id number]) [address] [place] [address] #### BMP #### [facility] ([id number]) [address], [address] [place] [address] Urea nitrogen [Mass/Vol] 13 mg/dL Normal 5-23 [facility] Comment on above: Performed By: #### P INR, 15638-0 #### [facility] ([id number]) [address] [place] [address] #### BMP #### [facility] ([id number]) [address], [address] [place] [address] Basic Metabolic Panelon 03-0 Anion gap [Moles/Vol] 9 mmol/L 5 - 15 mmol/L [facility] Calcium [Mass/Vol] 8.8 mg/dL 8.5 - 10. 5 mg/dL [facility] Chloride [Moles/Vol] 103 mmol/L 98 - 10 9 mmol/L [facility] CO2 [Moles/Vol] 27 mmol/L 22 - 32 mmol/L [facility] Creatinine [Mass/Vol] 0.70 mg/dL 0.40 - 1.00 mg/dL [facility] Comment on above: METHOD TRACEABLE TO IDIA STANDARD eGFR (CKD-EPI)non-race dependent - PINF [facility] Comment on above: Reported eGFR is based on the CKD-EPI 2020 equation that does not use a race coefficient. Glucose [Mass/Vol] 116 mg/dL High 65 - 99 mg/dL [facility] Interpretation and review of laboratory results Abnormal [facility] Potassium [Moles/Vol] 3.9 mmol/L 3.5 - 5.0 mmol/L [facility] Sodium [Moles/Vol] 139 mmol/L 134 - 146 mmol/L [facility] Urea nitrogen [Mass/Vol] 13 mg/dL 5 - 23 mg/dL [facility] ECG 12 leadon 11-09-2023 TRACEMASTERVUE [facility] No Panel Informationon 11-08 [facility] PROTIME AND INRon 11-09-2023 INR Coag (PPP) [Relative time] 1.0 {INR} Normal 0.8-1.1 [facility] Comment on above: Performed By: #### P INR, 29713-5 #### [facility] ([id number]) [address] [place] [address], [place] [address] #### BMP #### [facility] ([id number]) [address] [facility], [address] [place] [address] PT Coag (PPP) [Time] 12.2 s Normal 9.8-13.2 [facility] Comment on above: Result Comment: NEW REFERENCE RANGE Performed By: #### P INR, 03918-8 #### [facility] ([id number]) [address] [place] [address] #### BMP #### [facility] ([id number]) [facility], [address] [place] [address] Protime & INRon 11-09-2023 INR Coag (PPP) [Relative time] 1.0 {INR} [facility] PT Coag (PPP) [Time] 12.2 s [facility] Comment on above: NEW REFERENCE RANGE aPTT Coag (PPP) [Time]on aPTT Coag (Bld) [Time] 30 s Normal 26-37 [facility] Comment on above: Result Comment: NEW REFERENCE RANGE Performed By: #### P INR, 50710-2 #### [facility] ([id number]) [address] [place] [address] #### BMP #### [facility] ([id number]) [address] [place] [address], [address] [place] [address] C. difficile toxin genes EVARISTO +probe Ql (Stl)on 11-08-2023 [facility] Gastrointestinal pathogens D NA and RNA panel EVARISTO+non-probe (Stl)on 11-08-2023 Adenovirus 40+41 DNA EVARISTO+non-probe Ql (Stl) Not detected Not Detected^Not Detected [facility] Astrovirus subtypes 1-8 RNA EVARISTO+non-probe Ql (Stl) Not detected Not Detected^Not Detected [facility] C. cayetanensis DNA EVARISTO+non-probe Ql (Stl) Not detected Not Detected^Not Detected [facility] C. coli+jejuni+upsalien sis DNA EVARISTO+non-probe Ql (Stl) Not detected Not Detected^Not Detected [facility] Cryptosporidium sp DNA EVARISTO+non-probe Ql (Stl) Not detected Not Detected^Not Detected [facility] E. coli enteroaggregative Jeevan plasmid aggR+aatA genes EVARISTO+non-probe Ql (Stl) Not detected Not Detected^Not Detected [facility] E. coli enteropathogenic eae gene EVARISTO+non-probe Ql (Stl) Not detected Not Detected^Not Detected [facility] E. coli enterotoxigenic ltA+st1a+st1b genes EVARISTO+non-probe Ql (Stl) Not detected Not Detected^Not Detected [facility] E. coli stx1+stx2 genes EVARISTO+non-probe Ql (Stl) Not detected Not Detected^Not Detected [facility] E. histolytica DNA EVARISTO+non-probe Ql (Stl) Not detected Not Detected^Not Detected [facility] G. lamblia DNA EVARISTO+non-probe Ql (Stl) Not detected Not Detected^Not Detected [facility] Norovirus genogroup I+II RNA EVARISTO+non-probe Ql (Stl) Not detected Not Detected^Not Detected [facility] P. shigelloides DNA EVARISTO+non-probe Ql (Stl) Not detected Not Detected^Not Detected [facility] Rotavirus A RNA EVARISTO+non-probe Ql (Stl) Not detected Not Detected^Not Detected [facility] S. enterica+bongori DNA EVARISTO+non-probe Ql (Stl) Not detected Not Detected^Not Detected [facility] Sapovirus genogroups I+II+IV+V RNA EVARISTO+non-probe Ql (Stl) Not detected Not Detected^Not Detected [facility] Shigella species+EIEC invasion plasmid antigen H ipaH gene EVARISTO+non-probe Ql (Stl) Not detected Not Detected^Not Detected [facility] Specimen source Nom (Body fld) STOOL [facility] V. cholerae DNA EVARISTO+non-probe Ql (Stl) Not detected Not Detected^Not Detected [facility] V. cholerae+parahaemoly ticus+vulnificus DNA EVARISTO+non-probe Ql (Stl) Not detected Not Detected^Not Detected [facility] Y. enterocolitica DNA EVARISTO+non-probe Ql (Stl) Not detected Not Detected^Not Detected [facility] - Microbiology an d Antimicrobial susceptibilityon 11-08-2023 C. difficile toxin genes EVARISTO+probe Ql (Stl) Negative Presumptive Negative^Pres umptive Negative [facility] C DIFFICILE BY PCRon 024 C. difficile toxin genes EVARISTO+probe Ql (Stl) TOXIGENIC C DIFF Negative (qualifier value) 027 NAP1 Negative (qualifier value) Normal PRNEG [facility] Comment on above: Performed By: #### 5 4067-4, 64101-6, 89928-2 #### [facility] ([id number]) [address] [address] [facility] [facility], [address] [place] [address] Calprotectin (Stl) [Mass/Mas s]on 11-07-2023 CALPROTECTIN STOOL See Below Normal [facility] Comment on above: Result Comment: NOTE TEST RESULT FLAG UNIT REF.RANGE ----- CALPROTECTIN, FECAL QUANTITATIVE 11.9 ug/g <50 CALPROTECTIN, FECAL INTERP Normal Normal On January 23, 2023, [facility] [employer] implemented a new fecal calprotectin method, the [employer] Calprotectin assay. For assistance with interpretation of results in patients undergoing serial monitoring, contact Client Services at [phone] or [phone] to discuss options, preferably within 7 days of issuing this report. Interpretation: <50.0 ug/g: Normal 50.0 ug/g - 120.0 ug/g: Borderline elevated. Re-evaluation in 4-6 weeks is recommended if clinically indicated. >120.0 ug/g: Elevated Test Performed By: [facility] [address] [place] [address] [place] Supervisor: John Kaiser III, M.D. CLIA #[id number] Performed By: #### 5 4067-4, 07555-7, 80003-3 #### [facility] ([id number]) [address] [place] [address], [address] [place] [address] GI PANELon 11-07-2023 Gastrointestinal pathogens DNA and [...] SAPOVIRUS Not detected (qualifier value) Normal NDET [facility] Comment on above: Performed By: #### 5 4067-4, 08552-3, 06254-2 #### [facility] ([id number]) [address] [place] [address], [address] [place] [address] POCT Glucose Fingerstickon 0 10-08-2023 Glucose [Mass/Vol] 119 mg/dL Abnormal 65 - 99 mg/dL [facility] Interpretation and review of laboratory results Abnormal [facility] CBC AUTO DIFFon 11-22-2022 BASO # 0.0 103/ul Normal 0.0-0.1 [facility] Comment on above: Performed By: #### H H #### [facility] [address] [place] [address] Dr. Ron Sims Basophils/100 WBC (Bld) 0.3 % Normal 0.2-2.0 [facility] Comment on above: Performed By: #### H H #### [facility] [address] [place] [address] Dr. Ron Sims EO # 0.1 103/ul Normal 0.0-0.7 [facility] Comment on above: Performed By: #### H H #### [facility] [address] [place] [address] Dr. Ron Sims Eosinophils/100 WBC (Bld) 0.8 % Critically low 0.9-7.0 [facility] Comment on above: Performed By: #### H H #### [facility] [address] [place] [address] Dr. Ron Sims Erythrocyte distribution width (RBC) [Ratio] 13.5 % Normal 11.0-15.0 [facility] Comment on above: Performed By: #### H H #### [facility] [address] [place] [address] [address] Ron Sims Hematocrit (Bld) [Volume fraction] 42.3 % Normal 36.0-48.0 [facility] Comment on above: Performed By: #### H H #### [facility] [address] [place] [address] Dr. Ron Sims Hemoglobin (Bld) [Mass/Vol] 13.9 g/dL Normal 12.0-16.0 [facility] Comment on above: Performed By: #### H H #### [facility] [address] [place] [address] Dr. Ron Sims IG # 0.08 10e3/ul Critically high 0.00-0.03 [facility] Comment on above: Performed By: #### H H #### [facility] [address] [place] [address] Dr. Ron Sims IG % 0.9 % Critically high 0.0-0.5 [facility] Comment on above: Performed By: #### H H #### [facility] [address] [place] [address] Dr. Ron Sims LYMPH # 0.8 103/ul Critically low 1.2-3.8 [facility] Comment on above: Performed By: #### H H #### [facility] [address] [place] [address] Dr. Ron Sims Lymphocytes/100 WBC (Bld) 9.4 % Critically low 20.5-60.0 [facility] Comment on above: Performed By: #### H H #### [facility] [address] [place] [address] Dr. Ron Sims MANUAL DIFF REQ NO Normal [facility] Comment on above: Performed By: #### H H #### [facility] [address] [place] [address] Dr. Ron Sims MCH (RBC) [Entitic mass] 26.8 pg Normal 26.7-34.0 [facility] Comment on above: Performed By: #### H H #### [facility] [address] [place] [address] Dr. Ron Sims MCHC (RBC) [Mass/Vol] 32.9 g/dL Normal 29.9-35.2 [facility] Comment on above: Performed By: #### H H #### [facility] [address] [place] [address] Dr. Ron Sims MCV (RBC) [Entitic vol] 81.7 fL Normal 81.0-99.0 [facility] Comment on above: Performed By: #### H H #### [facility] [address] [place] [address] Dr. Ron Sims MONO # 0.6 103/ul Normal 0.3-0.8 [facility] Comment on above: Performed By: #### H H #### [facility] [address] [place] [address] Dr. Ron Sims Monocytes/100 WBC (Bld) 6.3 % Normal 1.7-12.0 [facility] Comment on above: Performed By: #### H H #### [facility] [address] [place] [address] Dr. Ron Sims NEUT # 7.2 103/ul Critically high 1.4-6.5 [facility] Comment on above: Performed By: #### H H #### [facility] [address] [place] [address] Dr. Ron Sims Neutrophils/100 WBC (Bld) 82.3 % Critically high 43.0-75.0 [facility] Comment on above: Performed By: #### H H #### [facility] [address] [place] [address] Dr. Ron Sims Platelet mean volume (Bld) [Entitic vol] 8.6 fL Critically low 9.5-13.5 [facility] Comment on above: Performed By: #### H H #### [facility] [address] [address] [address] Ron Sims PLT 323 103/ul Normal 150-450 [facility] Comment on above: Performed By: #### H H #### [facility] [address] [address] [address] Ron Sims RBC 5.18 106/ul Normal 4.20-5.40 [facility] Comment on above: Performed By: #### H H #### [facility] [address] [address] [address] Ron Sims WBC 8.8 103/ul Normal 4.0-11.0 [facility] Comment on above: Performed By: #### H H #### [facility] [address] [address] [address] Ron Sims CULTURE BLOODon 11-22-2022 Microscopic examination of blood, culture Culture Observations: NO GROWTH AT 5 DAYS. Normal [facility] Comment on above: Performed By: #### H IV12 #### [facility] [address] [place] [address] Dr. Ron Sims ECHO LIMITED STUDYon 023 ECHO LIMITED STUDY Patient: MARGARET PRIETO Exam Date: 11/22/2022 : 1990 Gender:F Ordering : DR NATHAN MAYFIELD D.O. Admission #: [id number] Family : Order #: [id number] CLICK HERE TO VIEW EXAM ECHOCARDIOGRAM REPORT [...] M.D. on 11/22/2022 at 14:54 Normal [facility] LACTATE/LACTIC ACIDon 2022 Lactate [Moles/Vol] 1.5 mmol/L Normal 0.4-2.0 [facility] Comment on above: Performed By: #### L ACT #### [facility] [address] [place] [address] Dr. Ron Sims Lactate [Moles/Vol] 2.6 mmol/L Critically high 0.4-2.0 [facility] Comment on above: Performed By: #### L ACT #### [facility] [address] [address] [address] Ron Sims PROF CHEM 8 (BAS METB)on Anion gap [Moles/Vol] 16.8 mmol/L Normal [facility] Comment on above: Performed By: #### H H #### [facility] [address] [address] [address] Ron Sims Calcium [Mass/Vol] 8.9 mg/dL Normal 8.5-10.1 [facility] Comment on above: Performed By: #### H H #### [facility] [address] [address] [address] Ron Sims Chloride [Moles/Vol] 94 mmol/L Critically low 98-107 [facility] Comment on above: Performed By: #### H H #### [facility] [address] [place] [address] Dr. Ron Sims CO2 [Moles/Vol] 25.3 mmol/L Normal 21.0-32.0 [facility] Comment on above: Performed By: #### H H #### [facility] [address] [address] [address] Ron Sims Creatinine [Mass/Vol] 0.88 mg/dL Normal 0.55-1.02 [facility] Comment on above: Performed By: #### H H #### [facility] [address] [address] [address] Ron Sims EGFR-AF [place] >60 Normal >=60 [facility] Comment on above: Performed By: #### H H #### [facility] [address] [address] [address] Ron Sims EGFR-NON AF [place] >60 Normal >=60 [facility] Comment on above: Performed By: #### H H #### [facility] [address] [address] [address] Ron Sims Glucose [Mass/Vol] 112 mg/dL Critically high 74-106 [facility] Comment on above: Performed By: #### H H #### [facility] [address] [address] [address] Ron Sims Potassium [Moles/Vol] 3.1 mmol/L Critically low 3.5-5.1 [facility] Comment on above: Performed By: #### H H #### [facility] [address] [address] [address] Ron Sims Sodium [Moles/Vol] 133 mmol/L Critically low 136-145 [facility] Comment on above: Performed By: #### H H #### [facility] [address] [address] [address] Ron Sims Urea nitrogen [Mass/Vol] 12.0 mg/dL Normal 7.0-18.0 [facility] Comment on above: Performed By: #### H H #### [facility] [address] [place] [address] Dr. Ron Sims Urea nitrogen/Creatinine [Mass ratio] 13.6 mg/mg Normal [facility] Comment on above: Performed By: #### H H #### [facility] [address] [place] [address] Dr. Ron Sims PROTIMEon 11-22-2022 INR Coag (PPP) [Relative time] 2.20 {INR} Normal [facility] Comment on above: Performed By: #### P T, PTT #### [facility] [address] [place] [address] Dr. Ron Sims INR GUIDELINES SEE BELOW Normal [facility] Comment on above: Result Comment: MICHELINE RED INR: 2.0 - 3.0 CONDITIONS NOT LISTED BELOW 2.5 - 3.5 FOR PROSTHETIC HEART VALVE REPLACEMENT 2.5 - 3.5 RECURRENT THROMBOSIS Performed By: #### P T, PTT #### [facility] [address] [place] [address] Dr. Ron Sims PT Coag (PPP) [Time] 22.3 s Critically high 9.0-11.6 [facility] Comment on above: Performed By: #### P T, PTT #### [facility] [address] [place] [address] Dr. Ron Sims PTTon 11-22-2022 aPTT Coag (Bld) [Time] 48.2 s Critically high 22.3-36.2 [facility] Comment on above: Performed By: #### P T, PTT #### [facility] [address] [address] [address] Ron Sims XR CHEST 1 Von [...] by: SANIA TIDWELL Date: 2022-11-22 12:16 Normal [facility] POLINA EIA W/REFLEX 9 BIOMARKER Son 10-24-2022 POLINA Direct Negative Normal Negative [facility] Comment on above: Performed By: #### H IV12 #### [facility] [address] [address] [address] Ron Sims HEPATITIS C AB CASCADE TO QU ANT PCR GENOon 10-24-2022 HCV AB Non-Reactive Normal Non Reactive [facility] Comment on above: Performed By: #### H EPCASC #### [facility] [address] [address] [address] Ron Sims Interpretation: Comment Normal [facility] Comment on above: Result Comment: Not infected with HCV unless early or acute infection is suspected (which may be delayed in an immunocompromised individual), or other evidence exists to indicate HCV infection. Performed By: #### H EPCASC #### [facility] [address] [place] [address] Dr. Ron Sims HIV 1 AND 2 WITH REFLEXon HIV Screen 4th Generation wRfx Non-Reactive Normal Non Reactive [facility] Comment on above: Result Comment: HIV Negative HIV-1/HIV-2 antibodies and HIV-1 p24 antigen were NOT detected. There is no laboratory evidence of HIV infection. Performed By: #### H IV12 #### [facility] [address] [place] [address] Dr. Ron Sims CPKon 10-23-2022 CK [Catalytic activity/Vol] 36 U/L Normal 26-192 [facility] Comment on above: Performed By: #### H H #### [facility] [address] [place] [address] Dr. Ron Sims GLYCOHEMOGLOBIN A1Con 2022 ADA RECOMMENDATION SEE BELOW Normal [facility] Comment on above: Result Comment: ADA RECOMMENDED LIMIT 4.0 - 6.0 ADA THERAPEUTIC TARGET < 7.0 ACTION SUGGESTED > 7.0 Performed By: #### A 1C #### [facility] [address] [place] [address] Dr. Ron Sims Glucose [Mass/Vol] 111 mg/dL Normal [facility] Comment on above: Performed By: #### A 1C #### [facility] [address] [place] [address] Dr. Ron Sims HbA1c (Bld) [Mass fraction] 5.5 % Normal 4.5-6.2 [facility] Comment on above: Performed By: #### A 1C #### [facility] [address] [place] [address] Dr. Ron Sims HEMOGRAM AND PLATELon 2022 Hematocrit (Bld) [Volume fraction] 38.4 % Normal 36.0-48.0 [facility] Comment on above: Performed By: #### H H #### [facility] [address] [place] [address] Dr. Ron Sims Hemoglobin (Bld) [Mass/Vol] 12.6 g/dL Normal 12.0-16.0 [facility] Comment on above: Performed By: #### H H #### [facility] [address] [place] [address] Dr. Ron Sims MCH (RBC) [Entitic mass] 27.0 pg Normal 26.7-34.0 [facility] Comment on above: Performed By: #### H H #### [facility] [address] [address] [address] Ron Sims MCHC (RBC) [Mass/Vol] 32.8 g/dL Normal 29.9-35.2 [facility] Comment on above: Performed By: #### H H #### [facility] [address] [address] [address] Ron Sims MCV (RBC) [Entitic vol] 82.2 fL Normal 81.0-99.0 [facility] Comment on above: Performed By: #### H H #### [facility] [address] [address] [address] Ron Sims PLT 337 103/ul Normal 150-450 [facility] Comment on above: Performed By: #### H H #### [facility] [address] [place] [address] Dr. Ron Sims RBC 4.67 106/ul Normal 4.20-5.40 [facility] Comment on above: Performed By: #### H H #### [facility] [address] [place] [address] Dr. Ron Sims WBC 9.7 103/ul Normal 4.0-11.0 [facility] Comment on above: Performed By: #### H H #### [facility] [address] [place] [address] Dr. Ron Sims MYOGLOBINon 10-23-2022 NOEMI 51 ng/mL Normal 9-82 [facility] Comment on above: Performed By: #### H H #### [facility] [address] [place] [address] Dr. Ron Sims PROF 14(COMP METB)on 023 Albumin [Mass/Vol] 3.1 g/dL Critically low 3.4-5.0 [facility] Comment on above: Performed By: #### P T, PTT #### [facility] [address] [place] [address] Dr. Ron Sims Albumin/Globulin [Mass ratio] 0.7 {ratio} Normal [facility] Comment on above: Performed By: #### P T, PTT #### [facility] [address] [address] [address] Ron Sims ALP [Catalytic activity/Vol] 79 U/L Normal 46-116 [facility] Comment on above: Performed By: #### P T, PTT #### [facility] [address] [address] [address] Ron Sims ALT [Catalytic activity/Vol] 28 U/L Normal 14-59 [facility] Comment on above: Performed By: #### P T, PTT #### [facility] [address] [address] [address] Ron Sims Anion gap [Moles/Vol] 12.2 mmol/L Normal [facility] Comment on above: Performed By: #### P T, PTT #### [facility] [address] [place] [address] Dr. Ron Sims AST [Catalytic activity/Vol] 17 U/L Normal 15-37 [facility] Comment on above: Performed By: #### P T, PTT #### [facility] [address] [address] [address] Ron Sims Bilirubin [Mass/Vol] 0.4 mg/dL Normal 0.2-1.0 [facility] Comment on above: Performed By: #### P T, PTT #### [facility] [address] [place] [address] Dr. Ron Sims Calcium [Mass/Vol] 9.0 mg/dL Normal 8.5-10.1 [facility] Comment on above: Performed By: #### P T, PTT #### [facility] [address] [address] [address] Ron Sims Chloride [Moles/Vol] 101 mmol/L Normal 98-107 [facility] Comment on above: Performed By: #### P T, PTT #### [facility] [address] [address] [address] Ron Sims CO2 [Moles/Vol] 28.5 mmol/L Normal 21.0-32.0 [facility] Comment on above: Performed By: #### P T, PTT #### [facility] [address] [place] [address] Dr. Ron Sims Creatinine [Mass/Vol] 0.88 mg/dL Normal 0.55-1.02 [facility] Comment on above: Performed By: #### P T, PTT #### [facility] [address] [place] [address] Dr. Ron Sims EGFR-AF [place] >60 Normal >=60 [facility] Comment on above: Performed By: #### P T, PTT #### [facility] [address] [address] [address] Ron Sims EGFR-NON AF [place] >60 Normal >=60 [facility] Comment on above: Performed By: #### P T, PTT #### [facility] [address] [place] [address] Dr. Ron Sims Globulin (S) [Mass/Vol] 4.6 g/dL Normal [facility] Comment on above: Performed By: #### P T, PTT #### [facility] [address] [place] [address] Dr. Ron Sims Glucose [Mass/Vol] 96 mg/dL Normal 74-106 [facility] Comment on above: Performed By: #### P T, PTT #### [facility] [address] [place] [address] Dr. Ron Sims Potassium [Moles/Vol] 3.7 mmol/L Normal 3.5-5.1 [facility] Comment on above: Performed By: #### P T, PTT #### [facility] [address] [place] [address] Dr. Ron Sims Protein [Mass/Vol] 7.7 g/dL Normal 6.4-8.2 [facility] Comment on above: Performed By: #### P T, PTT #### [facility] [address] [place] [address] Dr. Ron Sims Sodium [Moles/Vol] 138 mmol/L Normal 136-145 [facility] Comment on above: Performed By: #### P T, PTT #### [facility] [address] [place] [address] Dr. Ron Sims Urea nitrogen [Mass/Vol] 12.0 mg/dL Normal 7.0-18.0 [facility] Comment on above: Performed By: #### P T, PTT #### [facility] [address] [place] [address] Dr. Ron Sims Urea nitrogen/Creatinine [Mass ratio] 13.6 mg/mg Normal [facility] Comment on above: Performed By: #### P T, PTT #### [facility] [address] [place] [address] Dr. Ron Sims TSHon 10-23-2022 TSH 2.891 uIU/mL Normal 0.358-3.740 [facility] Comment on above: Performed By: #### P T, PTT #### [facility] [address] [place] [address] Dr. Ron Sims VITAMIN B12on 10-23-2022 Cobalamin (Vitamin B12) [Mass/Vol] 618.0 pg/mL Normal 193.0-986.0 [facility] Comment on above: Performed By: #### H H #### [facility] [address] [place] [address] Dr. Ron Sims VITAMIN D 25 OHon 10-23-2022 VIT D 25-OH 18.0 ng/mL Normal [facility] Comment on above: Performed By: #### H H #### [facility] [address] [place] [address] Dr. Ron Sims VIT D RANGES SEE BELOW Normal [facility] Comment on above: Result Comment: <20 ng/mL Vit D deficient 20 - <30 ng/mL Vit D insufficient 30 - 100 ng/mL Vit D sufficient >100 ng/mL Potential Toxicity Performed By: #### H H #### [facility] [address] [place] [address] Dr. Ron Sims CBC AUTO DIFFon 09-26-2022 BASO # 0.0 103/ul Normal 0.0-0.1 [facility] Comment on above: Performed By: #### H H #### [facility] [address] [address] [address] Ron Sims Basophils/100 WBC (Bld) 0.5 % Normal 0.2-2.0 [facility] Comment on above: Performed By: #### H H #### [facility] [address] [address] [address] Ron Sims EO # 0.1 103/ul Normal 0.0-0.7 [facility] Comment on above: Performed By: #### H H #### [facility] [address] [address] [address] Ron Sims Eosinophils/100 WBC (Bld) 1.5 % Normal 0.9-7.0 [facility] Comment on above: Performed By: #### H H #### [facility] [address] [place] [address] Dr. Ron Sims Erythrocyte distribution width (RBC) [Ratio] 13.3 % Normal 11.0-15.0 [facility] Comment on above: Performed By: #### H H #### [facility] [address] [place] [address] Dr. Ron Sims Hematocrit (Bld) [Volume fraction] 41.3 % Normal 36.0-48.0 [facility] Comment on above: Performed By: #### H H #### [facility] [address] [place] [address] Dr. Ron Sims Hemoglobin (Bld) [Mass/Vol] 13.6 g/dL Normal 12.0-16.0 [facility] Comment on above: Performed By: #### H H #### [facility] [address] [place] [address] Dr. Ron Sims IG # 0.03 10e3/ul Normal 0.00-0.03 [facility] Comment on above: Performed By: #### H H #### [facility] [address] [place] [address] Dr. Ron Sims IG % 0.3 % Normal 0.0-0.5 [facility] Comment on above: Performed By: #### H H #### [facility] [address] [address] [address] Ron Sims LYMPH # 1.5 103/ul Normal 1.2-3.8 [facility] Comment on above: Performed By: #### H H #### [facility] [address] [place] [address] Dr. Ron Sims Lymphocytes/100 WBC (Bld) 16.9 % Critically low 20.5-60.0 [facility] Comment on above: Performed By: #### H H #### [facility] [address] [place] [address] Dr. Ron Sims MANUAL DIFF REQ NO Normal [facility] Comment on above: Performed By: #### H H #### [facility] [address] [place] [address] Dr. Ron Sims MCH (RBC) [Entitic mass] 27.7 pg Normal 26.7-34.0 [facility] Comment on above: Performed By: #### H H #### [facility] [address] [place] [address] Dr. Ron Sims MCHC (RBC) [Mass/Vol] 32.9 g/dL Normal 29.9-35.2 [facility] Comment on above: Performed By: #### H H #### [facility] [address] [place] [address] Dr. Ron Sims MCV (RBC) [Entitic vol] 84.1 fL Normal 81.0-99.0 [facility] Comment on above: Performed By: #### H H #### [facility] [address] [place] [address] Dr. Ron Sims MONO # 0.5 103/ul Normal 0.3-0.8 [facility] Comment on above: Performed By: #### H H #### [facility] [address] [place] [address] Dr. Ron Sims Monocytes/100 WBC (Bld) 5.4 % Normal 1.7-12.0 [facility] Comment on above: Performed By: #### H H #### [facility] [address] [place], [place] [id number] Dr. Ron Sims NEUT # 6.5 103/ul Normal 1.4-6.5 [facility] Comment on above: Performed By: #### H H #### [facility] [address] [place] [address] Dr. Ron Sims Neutrophils/100 WBC (Bld) 75.4 % Critically high 43.0-75.0 [facility] Comment on above: Performed By: #### H H #### [facility] [address] [place] [address] Dr. Ron Sims Platelet mean volume (Bld) [Entitic vol] 9.0 fL Critically low 9.5-13.5 [facility] Comment on above: Performed By: #### H H #### [facility] [address] [place] [address] Dr. Ron Sims PLT 261 103/ul Normal 150-450 [facility] Comment on above: Performed By: #### H H #### [facility] [address] [place] [address] Dr. Ron Sims RBC 4.91 106/ul Normal 4.20-5.40 [facility] Comment on above: Performed By: #### H H #### [facility] [address] [place] [address] Dr. Ron Sims WBC 8.7 103/ul Normal 4.0-11.0 [facility] Comment on above: Performed By: #### H H #### [facility] [address] [place] [address] Dr. Ron Sims CRPon 09-26-2022 CRP 0.4 mg/dL Normal <=1.0 [facility] Comment on above: Performed By: #### P T, PTT #### [facility] [address] [place] [address] HEAD WO CONon [...] by: DEREK MIRELES Date: 2022-09-26 20:09 Normal [facility] CTA HEAD WO W CONon 09-26-19 [...] by: DEREK MIRELES Date: 2022-09-26 21:26 Normal [facility] PROF CHEM 8 (BAS METB)on Anion gap [Moles/Vol] 11.2 mmol/L Normal [facility] Comment on above: Performed By: #### P T, PTT #### [facility] [address] [place] [address] Dr. Ron Sims Calcium [Mass/Vol] 9.1 mg/dL Normal 8.5-10.1 [facility] Comment on above: Performed By: #### P T, PTT #### [facility] [address] [place] [address] Dr. Ron Sims Chloride [Moles/Vol] 101 mmol/L Normal 98-107 [facility] Comment on above: Performed By: #### P T, PTT #### [facility] [address] [address] [address] Ron Sims CO2 [Moles/Vol] 28.0 mmol/L Normal 21.0-32.0 [facility] Comment on above: Performed By: #### P T, PTT #### [facility] [address] [place] [address] Dr. Ron Sims Creatinine [Mass/Vol] 0.85 mg/dL Normal 0.55-1.02 [facility] Comment on above: Performed By: #### P T, PTT #### [facility] [address] [address] [address] Ron Sims EGFR-AF [place] >60 Normal >=60 [facility] Comment on above: Performed By: #### P T, PTT #### [facility] [address] [place] [address] Dr. Ron Sims EGFR-NON AF [place] >60 Normal >=60 [facility] Comment on above: Performed By: #### P T, PTT #### [facility] [address] [place] [address] Dr. Ron Sims Glucose [Mass/Vol] 106 mg/dL Normal 74-106 [facility] Comment on above: Performed By: #### P T, PTT #### [facility] [address] [address] [address] Ron Sims Potassium [Moles/Vol] 4.2 mmol/L Normal 3.5-5.1 [facility] Comment on above: Performed By: #### P T, PTT #### [facility] [address] [place] [address] Dr. Ron Sims Sodium [Moles/Vol] 136 mmol/L Normal 136-145 [facility] Comment on above: Performed By: #### P T, PTT #### [facility] [address] [address] [address] Ron Sims Urea nitrogen [Mass/Vol] 15.0 mg/dL Normal 7.0-18.0 [facility] Comment on above: Performed By: #### P T, PTT #### [facility] [address] [place] [address] Dr. Ron Sims Urea nitrogen/Creatinine [Mass ratio] 17.6 mg/mg Normal [facility] Comment on above: Performed By: #### P T, PTT #### [facility] [address] [place] [address] Dr. Ron Sim[facility] 58 mm/hr Critically high <=20 [facility] Comment on above: Performed By: #### S EDR #### [facility] [address] [place] [address] Dr. Ron Sims PREG HCG QUALon 09-05-2022 , QUAL Negative Normal NEGATIVE [facility] Comment on above: Performed By: #### P REG #### [facility] [address] [place] [address] Dr. Ron Sims ABO and Rh group post transf usion reaction Nom (Bld)Ordered By: John Carlson on 04-11-2022 Microscopic observation Gram stain Nom (Unsp spec) [facility] HCG ( test) IA.rapi d Ql (U)Ordered By: Katya Vasques on 04-10-2022 HCG ( test) Ql (U) Negative [facility] COVID-19 Positive/NegativeOr dered By: John Carlson on 04-06-2022 SARS-CoV-2 (COVID-19) N gene EVARISTO+probe Ql (Resp) Negative Negative [facility] Comment on above: Testing for SARS-CoV -2 by RT-PCR This test was developed and its performance characteristics determined by [employer] (BD) and validated at the [facility]. This test has not been FDA [...] on 03-30-2022 Albumin [Mass/Vol] 3.1 g/dL 3.2-5.5 [facility] Basophils Auto (Bld) [#/Vol] Ordered By: Dominique Garrison on 03-30-2022 Basophils (Bld) [#/Vol] 0.1 10*3/uL 0.0-0.2 [facility] Basophils/100 WBC Auto (Bld) Ordered By: Dominique Garrison on 03-30-2022 Basophils/100 WBC (Bld) 0.6 % . [facility] Blood hemoglobin measurement (mass/volume)Ordered By: Dominique Garrison on 03-30-2022 Hemoglobin (Bld) [Mass/Vol] 13.3 g/dL 11.8-15.4 [facility] Blood leukocytes automated c ount (number/volume)Ordered By: Dominique Garrison on 03-30-2022 WBC (Bld) [#/Vol] 10.7 10*3/uL 4.5-11.0 [facility] Creatinine and Glomerular fi ltration rate.predicted panel (S/P/Bld)Ordered By: Dominique Garrison on 03-30-2022 Creatinine [Mass/Vol] 0.74 mg/dL 0.44-1.03 [facility] Eosinophils Auto (Bld) [#/Vo l]Ordered By: Dominique Garrison on 03-30-2022 Eosinophils (Bld) [#/Vol] 0.2 10*3/uL 0.0-0.45 [facility] Eosinophils/100 WBC Auto (Bl d)Ordered By: Dominique Garrison on 03-30-2022 Eosinophils/100 WBC (Bld) 1.5 % . [facility] Erythrocyte distribution wid th Auto (RBC) [Ratio]Ordered By: Dominique Garrison on 03-30-2022 Erythrocyte distribution width (RBC) [Ratio] 14.2 % 11.9-15.3 [facility] Estimated glomerular filtrat ion rate (GFR) non- AmericanOrdered By: Dominique Garrison on 03-30-2022 GFR/1.73 sq M.predicted among non-blacks MDRD (S/P/Bld) [Vol rate/Area] > 60 mL/Min [facility] Globulin Calc (S) [Mass/Vol] Ordered By: Dominique Garrison on 03-30-2022 Globulin (S) [Mass/Vol] 4.1 g/dL [facility] Hematocrit Auto (Bld) [Volum e fraction]Ordered By: Dominique Garrison on 03-30-2022 Hematocrit (Bld) [Volume fraction] 39.6 % 34.0-46.4 [facility] Hepatitis C virus RNA [Units /volume] (viral load) in Serum or Plasma by EVARISTO with probOrdered By: Dominique Garrison on 03-30-2022 HCV RNA EVARISTO+probe Qn N/A [facility] Hepatitis C virus RNA [log u nits/volume] (viral load) in Serum or Plasma by EVARISTO withOrdered By: Dominique Garrison on 03-30-2022 HCV RNA EVARISTO+probe [Log units/Vol] N/A [facility] - Hematology and Cell countsOrdered By: Dominique Garrison on 03-30-2022 Nucleated RBC/100 WBC (Bld) [Ratio] 0.1 % 0-0.5 [facility] Lymphocytes Auto (Bld) [#/Vo l]Ordered By: Dominique Garrison on 03-30-2022 Lymphocytes (Bld) [#/Vol] 1.7 10*3/uL 1.00-4.8 [facility] Lymphocytes/100 WBC Auto (Bl d)Ordered By: Dominique Garrison on 03-30-2022 Lymphocytes/100 WBC (Bld) 16.0 % . [facility] MCH Auto (RBC) [Entitic mass ]Ordered By: Dominique Garrison on 03-30-2022 MCH (RBC) [Entitic mass] 26.8 pg 24.7-34.3 [facility] MCHC Auto (RBC) [Mass/Vol]Or dered By: Dominique Garrison on 03-30-2022 MCHC (RBC) [Mass/Vol] 33.7 g/dL 32.0-35.0 [facility] MCV Auto (RBC) [Entitic vol] Ordered By: Dominique Garrison on 03-30-2022 MCV (RBC) [Entitic vol] 79.6 fL 80-100 [facility] Monocytes Auto (Bld) [#/Vol] Ordered By: Dominique Garrison on 03-30-2022 Monocytes (Bld) [#/Vol] 0.7 10*3/uL 0.0-0.8 [facility] Monocytes/100 WBC Auto (Bld) Ordered By: Dominique Garrison on 03-30-2022 Monocytes/100 WBC (Bld) 6.4 % . [facility] Neutrophils Auto (Bld) [#/Vo l]Ordered By: Dominique Garrison on 03-30-2022 Neutrophils (Bld) [#/Vol] 8.0 10*3/uL 1.8-7.7 [facility] Neutrophils/100 WBC Auto (Bl d)Ordered By: Dominique Garrison on 03-30-2022 Neutrophils/100 WBC (Bld) 75.5 % . [facility] No Panel InformationOrdered By: Dominique Garrison on 03-30-2022 Estimated GFR () > 60 mL/Min [facility] Comment on above: GFR estimated refere nce range: According to KDOQI guidelines, <60 ml/min/1.73m2 is sufficient to diagnose a patient with chronic kidney disease. Hepatitis B Core Total Antibody Negative Negative [facility] Comment on above: Performed at: [address] [id number] [employer]: Tarun Almanzar PhD, Phone: [phone] Hepatitis C Interpretation See comment . [facility] Comment on above: Negative Not infected with HCV, unless recent infection is suspected or other evidence exists to indicate HCV infection. Hepatitis C RNA Quantitative N/A [facility] Creatinine Clearance (Chem N/A [facility] TB Test (T-Spot) . [facility] Comment on above: See report. Scanned copy available in EMR. Platelet mean volume Auto (B ld) [Entitic vol]Ordered By: Dominique Garrison on 03-30-2022 Platelet mean volume (Bld) [Entitic vol] 7.3 fL 6.3-10.7 [facility] Platelets Auto (Bld) [#/Vol] Ordered By: Dominique Garrison on 03-30-2022 Platelets (Bld) [#/Vol] 376 10*3/uL 150-450 [facility] Protein [Mass/volume] in Ser um or PlasmaOrdered By: Dominique Garrison on 03-30-2022 Protein [Mass/Vol] 7.2 g/dL 6.1-7.9 [facility] RBC Auto (Bld) [#/Vol]Ordere d By: Dominique Garrison on 03-30-2022 RBC (Bld) [#/Vol] 4.97 10*6/uL 3.60-5.00 [facility] Serum hepatitis B virus surf mary antibody detectionOrdered By: Dominique Garrison on 03-30-2022 HBV surface Ab Ql (S) Reactive . [facility] Comment on above: Non Reactive: Incons istent with immunity, less than 10 mIU/mL Reactive: Consistent with immunity, greater than 9.9 mIU/mL Serum or plasma alanine block otransferase measurement without P-5'-P (enzymatic activiOrdered By: Dominique Garrison on 03-30-2022 ALT No additional P-5'-P [Catalytic activity/Vol] 24 U/L 10-60 [facility] Serum or plasma albumin/glob ulin mass ratioOrdered By: Dominique Garrison on 03-30-2022 Albumin/Globulin [Mass ratio] 0.8 {ratio} [facility] Serum or plasma alkaline james sphatase measurement (enzymatic activity/volume)Ordered By: Dominique Garrison on 03-30-2022 ALP [Catalytic activity/Vol] 66 U/L 32-92 [facility] Serum or plasma aspartate am inotransferase measurement (enzymatic activity/volume)Ordered By: Dominique Garrison on 03-30-2022 AST [Catalytic activity/Vol] 20 U/L 10-42 [facility] Serum or plasma calcium seema urement (mass/volume)Ordered By: Dominique Garrison on 03-30-2022 Calcium [Mass/Vol] 8.5 mg/dL 8.2-10.2 [facility] Serum or plasma chloride laura surement (moles/volume)Ordered By: Dominique Garrison on 03-30-2022 Chloride [Moles/Vol] 105 mmol/L 95-114 [facility] Serum or plasma glucose seema urement (mass/volume)Ordered By: Dominique Garrison on 03-30-2022 Glucose [Mass/Vol] 97 mg/dL 70-100 [facility] Comment on above: ADA recommended refe [...] IA [Rel units/Vol] 0.2 s/co ratio 0.0-0.9 [facility] Serum or plasma potassium me asurement (moles/volume)Ordered By: Dominique Garrison on 03-30-2022 Potassium [Moles/Vol] 3.8 mmol/L 3.5-5.1 [facility] Serum or plasma sodium measu rement (moles/volume)Ordered By: Dominique Garrison on 03-30-2022 Sodium [Moles/Vol] 136 mmol/L 136-146 [facility] Serum or plasma total biliru bin measurement (mass/volume)Ordered By: Dominique Garrison on 03-30-2022 Bilirubin [Mass/Vol] 0.5 mg/dL 0.3-1.2 [facility] Serum or plasma total carbon dioxide measurement (moles/volume)Ordered By: Dominique Garrison on 03-30-2022 CO2 [Moles/Vol] 23.0 mmol/L 22.0-30.0 [facility] Serum or plasma urea nitroge n measurement (mass/volume)Ordered By: Dominique Garrison on 03-30-2022 Urea nitrogen [Mass/Vol] 9 mg/dL 9-23 [facility] Bacteria identified Anaer cx Nom (Unsp spec)Ordered By: John Carlson on 03-29-2022 Anaerobic Culture Prevotella bivia F [facility] Bacteria identified Aer cx N om (Unsp spec)Ordered By: John Carlson on 03-15-2022 Aerobic Culture Strep. agalactiae Gr p B [facility] ABO and Rh group post transf usion reaction Nom (Bld)Ordered By: John Carlson on 03-14-2022 Microscopic observation Gram stain Nom (Unsp spec) [facility] Creatinine and Glomerular fi ltration rate.predicted panel (S/P/Bld)Ordered By: KATYA SIMENTAL on 03-13-2022 Creatinine [Mass/Vol] 0.77 mg/dL 0.44-1.03 [facility] Estimated glomerular filtrat ion rate (GFR) non- AmericanOrdered By: KATYA SIMENTAL on 03-13-2022 GFR/1.73 sq M.predicted among non-blacks MDRD (S/P/Bld) [Vol rate/Area] > 60 mL/Min [facility] HCG ( test) IA.rapi d Ql (U)Ordered By: KATYA SIMENTAL on 03-13-2022 HCG ( test) Ql (U) Negative [facility] No Panel InformationOrdered By: KATYA SIMENTAL on 03-13-2022 Estimated GFR () > 60 mL/Min [facility] Comment on above: GFR estimated refere nce range: According to KDOQI guidelines, <60 ml/min/1.73m2 is sufficient to diagnose a patient with chronic kidney disease. Pharmacy Creatinine Clearance (Chem 159.38 [facility] Serum or plasma calcium seema urement (mass/volume)Ordered By: KATYA SIMENTAL on 03-13-2022 Calcium [Mass/Vol] 8.9 mg/dL 8.2-10.2 [facility] Serum or plasma chloride laura surement (moles/volume)Ordered By: KATYA SIMENTAL on 03-13-2022 Chloride [Moles/Vol] 98 mmol/L 95-114 [facility] Serum or plasma glucose seema urement (mass/volume)Ordered By: KATYA SIMENTAL on 03-13-2022 Glucose [Mass/Vol] 95 mg/dL 70-100 [facility] Comment on above: ADA recommended refe rence range Random Glucose Reference Range is dependent on time and content of last meal. Glucose of more than 200 mg/dL in a nonstressed, ambulatory subject supports the diagnosis of Diabetes Mellitus. Serum or plasma potassium me asurement (moles/volume)Ordered By: KATYA SIMENTAL on 03-13-2022 Potassium [Moles/Vol] 3.8 mmol/L 3.5-5.1 [facility] Serum or plasma sodium measu rement (moles/volume)Ordered By: KATYA SIMENTAL on 03-13-2022 Sodium [Moles/Vol] 133 mmol/L 136-146 [facility] Serum or plasma total carbon dioxide measurement (moles/volume)Ordered By: KATYA SIMENTAL on 03-13-2022 CO2 [Moles/Vol] 24.4 mmol/L 22.0-30.0 [facility] Serum or plasma urea nitroge n measurement (mass/volume)Ordered By: KATYA SIMENTAL on 03-13-2022 Urea nitrogen [Mass/Vol] 7 mg/dL 9-23 [facility] COVID-19 Positive/NegativeOr dered By: John Carlson on 03-09-2022 SARS-CoV-2 (COVID-19) N gene EVARISTO+probe Ql (Resp) Negative Negative [facility] Comment on above: Testing for SARS-CoV -2 by RT-PCR This test was developed and its performance characteristics determined by [employer] ([employer]) and validated at the [facility]. This test has not been FDA [...] on 02-28-2022 Anaerobic Culture Prevotella bivia F [facility] Bacteria identified Aer cx N om (Unsp spec)Ordered By: John Carlson on 02-15-2022 Aerobic Culture Escherichia coli [facility] Aerobic Culture Strep. agalactiae Gr p B [facility] ABO and Rh group post transf usion reaction Nom (Bld)Ordered By: John Carlson on 02-14-2022 Microscopic observation Gram stain Nom (Unsp spec) [facility] HCG ( test) IA.rapi d Ql (U)Ordered By: Dillon Miranda on 02-13-2022 HCG ( test) Ql (U) Negative [facility] COVID-19 Positive/NegativeOr dered By: John Carlson on 02-09-2022 SARS-CoV-2 (COVID-19) N gene EVARISTO+probe Ql (Resp) Negative Negative [facility] Comment on above: Testing for SARS-CoV -2 by RT-PCR This test was developed and its performance characteristics determined by [employer] ([employer]) and validated at the [facility]. This test has not been FDA [...] the authorization is terminated or revoked sooner. Physician Referralon 022 Physician Referral [id number]:127 Normal [facility] Physician Referralon 021 Physician Referral [id number]:127 Normal [facility] Vital Signs Date Time Vital Sign Value Performing Clinician Facility 04-18-2024 11:17-0400 Body mass index (BMI) [Ratio] 60.83 kg/m2 Sharif Joseph MD Work Phone: [facility] 04-18-2024 11:17-0400 Body temperature 97 [degF] Sharif Joseph MD Work Phone: [facility] 04-18-2024 11:17-0400 Body weight 165.8 kg Sharif Joseph MD Work Phone: [facility] 04-18-2024 11:17-0400 Diastolic blood pressure 76 mm[Hg] Sharif Joseph MD Work Phone: [facility] 04-18-2024 11:17-0400 Heart rate 75 /min Sharif Joseph MD Work Phone: [facility] 04-18-2024 11:17-0400 Respiratory rate 18 /min Sharif Joseph MD Work Phone: [facility] 04-18-2024 11:17-0400 SaO2% (BldA) [Mass fraction] 98 % Sharif Joseph MD Work Phone: [facility] 04-18-2024 11:17-0400 Systolic blood pressure 155 mm[Hg] Sharif Joseph MD Work Phone: [facility] 12-20-2023 10:16-0400 Body temperature 97.7 [degF] Sharif Joseph MD Work Phone: [facility] 12-20-2023 10:16-0400 Body weight 171.1 kg Sharif Joseph MD Work Phone: [facility] 12-20-2023 10:16-0400 Diastolic blood pressure 90 mm[Hg] Sharif Joseph MD Work Phone: [facility] 12-20-2023 10:16-0400 Heart rate 98 /min Sharif Joseph MD Work Phone: [facility] 12-20-2023 10:16-0400 Respiratory rate 16 /min Sharif Joseph MD Work Phone: [facility] 12-20-2023 10:16-0400 SaO2% (BldA) [Mass fraction] 97 % Sharif Joseph MD Work Phone: [facility] 12-20-2023 10:16-0400 Systolic blood pressure 154 mm[Hg] Sharif Joseph MD Work Phone: [facility] 12-07-2023 11:05-0400 Body height 165.1 cm Harley Thacker APRN-SYNTHETIC PLASTERER Work Phone: [facility] 12-07-2023 11:05-0400 Body mass index (BMI) [Ratio] 64.23 kg/m2 Harley Thacker APRN-SYNTHETIC PLASTERER Work Phone: [facility] 12-07-2023 11:05-0400 Body temperature 98.01 [degF] Harley Thacker APRN-SYNTHETIC PLASTERER Work Phone: [facility] 12-07-2023 11:05-0400 Body weight 175.09 kg Harley Thacker APRN-SYNTHETIC PLASTERER Work Phone: [facility] 12-07-2023 11:05-0400 Diastolic blood pressure 76 mm[Hg] Harley Thacker APRN-SYNTHETIC PLASTERER Work Phone: [facility] 12-07-2023 11:05-0400 Heart rate 97 /min Harley Thacker OPTICAL WORKER-SYNTHETIC PLASTERER Work Phone: [facility] 12-07-2023 11:05-0400 SaO2% (BldA) [Mass fraction] 94 % Harley Thacker OPTICAL WORKER-SYNTHETIC PLASTERER Work Phone: [facility] 12-07-2023 11:05-0400 Systolic blood pressure 136 mm[Hg] Harley Thacker OPTICAL WORKER-SYNTHETIC PLASTERER Work Phone: [facility] 11-29-2023 10:42-0400 Body height 165.1 cm Sharif Joseph MD Work Phone: [facility] 11-29-2023 10:42-0400 Body temperature 97.59 [degF] Sharif Joseph MD Work Phone: [facility] 11-29-2023 10:42-0400 Body weight 172.8 kg Sharif Joseph MD Work Phone: [facility] 11-29-2023 10:42-0400 Diastolic blood pressure 100 mm[Hg] Sharif Joseph MD Work Phone: [facility] 11-29-2023 10:42-0400 Heart rate 98 /min Sharif Joseph MD Work Phone: [facility] 11-29-2023 10:42-0400 Respiratory rate 16 /min Sharif Joseph MD Work Phone: [facility] 11-29-2023 10:42-0400 SaO2% (BldA) [Mass fraction] 98 % Sharif Joseph MD Work Phone: [facility] 11-29-2023 10:42-0400 Systolic blood pressure 159 mm[Hg] Sharif Joseph MD Work Phone: [facility] 11-28-2023 09:58-0400 Body height 165.1 cm Pam Mtital MD Work Phone: [facility] [facility] 11-28-2023 09:58-0400 Body mass index (BMI) [Ratio] 63.73 kg/m2 Pam Mittal MD Work Phone: [facility] [facility] 11-28-2023 09:58-0400 Body weight 173.73 kg Pam Mittal MD Work Phone: [facility] 11-28-2023 09:58-0400 Diastolic blood pressure 96 mm[Hg] Pam Mittal MD Work Phone: [facility] 11-28-2023 09:58-0400 Heart rate 95 /min Pam Mittal MD Work Phone: [facility] 11-28-2023 09:58-0400 SaO2% (BldA) [Mass fraction] 98 % Pam Mittal MD Work Phone: [facility] 11-28-2023 09:58-0400 Systolic blood pressure 140 mm[Hg] Pam Mittal MD Work Phone: [facility] 11-14-2023 15:25-0400 Body height 165.1 cm Harley Thacker OPTICAL WORKER-SYNTHETIC PLASTERER Work Phone: [facility] 11-14-2023 15:25-0400 Body mass index (BMI) [Ratio] 63.5 kg/m2 Harley Thacker OPTICAL WORKER-SYNTHETIC P[employer]ERER Work Phone: [facility] 11-14-2023 15:25-0400 Body temperature 98.6 [degF] Harley Thacker OPTICAL WORKER-SYNTHETIC PLASTERER Work Phone: [facility] 11-14-2023 15:25-0400 Body weight 173.09 kg Harley Thacker OPTICAL WORKER-SYNTHETIC PLASTERER Work Phone: [facility] 11-14-2023 15:25-0400 Diastolic blood pressure 80 mm[Hg] Harley Thacker OPTICAL WORKER-SYNTHETIC PLASTERER Work Phone: [facility] 11-14-2023 15:25-0400 Heart rate 98 /min Harley Thacker OPTICAL WORKER-SYNTHETIC PLASTERER Work Phone: [facility] 11-14-2023 15:25-0400 SaO2% (BldA) [Mass fraction] 97 % Harley Thacker OPTICAL WORKER-SYNTHETIC PLASTERER Work Phone: [facility] 11-14-2023 15:25-0400 Systolic blood pressure 132 mm[Hg] Harley Thacker OPTICAL WORKER-SYNTHETIC PLASTERER Work Phone: [facility] 11-07-2023 10:01-0500 Body height 165.1 cm Corine Catherine OPTICAL WORKER-SYNTHETIC PLASTERER Work Phone: [facility] 11-07-2023 10:01-0500 Body mass index (BMI) [Ratio] 63.77 kg/m2 Corine Catherine OPTICAL WORKER-SYNTHETIC PLASTERER Work Phone: [facility] 11-07-2023 10:01-0500 Body weight 173.82 kg Corine Catherine OPTICAL WORKER-SYNTHETIC PLASTERER Work Phone: [facility] 11-07-2023 10:01-0500 Diastolic blood pressure 89 mm[Hg] Corine Catherine OPTICAL WORKER-SYNTHETIC PLASTERER Work Phone: [facility] 11-07-2023 10:01-0500 Heart rate 95 /min Corine Catherine OPTICAL WORKER-SYNTHETIC PLASTERER Work Phone: [facility] 11-07-2023 10:01-0500 Systolic blood pressure 175 mm[Hg] Corine Catherine OPTICAL WORKER-SYNTHETIC PLASTERER Work Phone: [facility] 10-19-2023 10:15-0500 Body mass index (BMI) [Ratio] 63.5 kg/m2 Yashira Mi OPTICAL WORKER-SYNTHETIC PLASTERER Work Phone: [facility] 10-19-2023 10:15-0500 Body weight 173.09 kg Yashira Mi OPTICAL WORKER-SYNTHETIC PLASTERER Work Phone: [facility] 10-19-2023 10:15-0500 Diastolic blood pressure 96 mm[Hg] Yashira Mi OPTICAL WORKER-SYNTHETIC PLASTERER Work Phone: [facility] 10-19-2023 10:15-0500 Heart rate 82 /min Yashira Mi OPTICAL WORKER-SYNTHETIC PLASTERER Work Phone: [facility] 10-19-2023 10:15-0500 Systolic blood pressure 142 mm[Hg] Yashira Mi OPTICAL WORKER-SYNTHETIC PLASTERER Work Phone: [facility] 10-08-2023 09:12-0500 Body height 165.1 cm Harley Thacker OPTICAL WORKER-SYNTHETIC PLASTERER Work Phone: [facility] 10-08-2023 09:12-0500 Body mass index (BMI) [Ratio] 63.24 kg/m2 Harley Thacker OPTICAL WORKER-SYNTHETIC PLASTERER Work Phone: [facility] 10-08-2023 09:12-0500 Body temperature 98.01 [degF] Harley Thacker OPTICAL WORKER-SYNTHETIC PLASTERER Work Phone: [facility] 10-08-2023 09:12-0500 Body weight 172.37 kg Harley Thacker OPTICAL WORKER-SYNTHETIC PLASTERER Work Phone: [facility] 10-08-2023 09:12-0500 Diastolic blood pressure 90 mm[Hg] Harley Thacker OPTICAL WORKER-SYNTHETIC PLASTERER Work Phone: [facility] 10-08-2023 09:12-0500 Heart rate 86 /min Harley Thacker OPTICAL WORKER-SYNTHETIC PLASTERER Work Phone: [facility] 10-08-2023 09:12-0500 SaO2% (BldA) [Mass fraction] 97 % Harley Thacker OPTICAL WORKER-SYNTHETIC PLASTERER Work Phone: [facility] 10-08-2023 09:12-0500 Systolic blood pressure 132 mm[Hg] Harley Thacker OPTICAL WORKER-SYNTHETIC PLASTERER Work Phone: [facility] 05-05-2022 09:25-0400 Body temperature 97.9 [degF] MD John Carlson Work Phone: [facility] 05-05-2022 09:25-0400 Diastolic blood pressure 93 mm[Hg] MD John Carlson Work Phone: [facility] 05-05-2022 09:25-0400 Heart rate 78 /min MD John Carlson Work Phone: [facility] 05-05-2022 09:25-0400 Respiratory rate 18 /min MD John Carlson Work Phone: [facility] 05-05-2022 09:25-0400 SaO2% (BldA) [Mass fraction] 99 % MD John Carlson Work Phone: [facility] 05-05-2022 09:25-0400 Systolic blood pressure 156 mm[Hg] MD John Carlson Work Phone: [facility] 05-05-2022 09:24-0400 Body height 165.1 cm MD John Carlson Work Phone: [facility] 05-05-2022 09:24-0400 Body weight 155.9 kg MD oJhn Carlson Work Phone: [facility] 04-21-2022 09:29-0400 Body temperature 98.2 [degF] MD John Carlson Work Phone: [facility] 04-21-2022 09:29-0400 Diastolic blood pressure 59 mm[Hg] MD John Carlson Work Phone: [facility] 04-21-2022 09:29-0400 Heart rate 74 /min MD John Carlson Work Phone: [facility] 04-21-2022 09:29-0400 Systolic blood pressure 141 mm[Hg] MD John Carlson Work Phone: [facility] 04-21-2022 08:29-0400 Body height 165.1 cm MD John Carlson Work Phone: [facility] 04-21-2022 08:29-0400 Body weight 155 kg MD John Carlson Work Phone: [facility] 04-10-2022 14:46-0400 Body height 165.1 cm MD John Carlson Work Phone: [facility] 04-10-2022 14:46-0400 Body mass index (BMI) [Ratio] 55.4 kg/m2 MD John Carlson Work Phone: [facility] 04-10-2022 14:46-0400 Body weight 151.04 kg MD John Carlson Work Phone: [facility] 04-10-2022 14:25-0400 Diastolic blood pressure 69 mm[Hg] MD John Carlson Work Phone: [facility] 04-10-2022 14:25-0400 Heart rate 80 /min MD John Carlson Work Phone: [facility] 04-10-2022 14:25-0400 Respiratory rate 16 /min MD John Carlson Work Phone: [facility] 04-10-2022 14:25-0400 SaO2% (BldA) [Mass fraction] 100 % MD John Carlson Work Phone: [facility] 04-10-2022 14:25-0400 Systolic blood pressure 119 mm[Hg] MD John Carlson Work Phone: [facility] 04-10-2022 14:10-0400 Inhaled oxygen flow rate 4 L/min MD John Carlson Work Phone: [facility] 04-10-2022 11:36-0400 Body temperature 97.9 [degF] MD John Carlson Work Phone: [facility] 03-13-2022 19:00-0400 Diastolic blood pressure 92 mm[Hg] MD John Carlson Work Phone: [facility] 03-13-2022 19:00-0400 Heart rate 84 /min MD John Carlson Work Phone: [facility] 03-13-2022 19:00-0400 Respiratory rate 16 /min MD John Carlson Work Phone: [facility] 03-13-2022 19:00-0400 SaO2% (BldA) [Mass fraction] 98 % MD John Carlson Work Phone: [facility] 03-13-2022 19:00-0400 Systolic blood pressure 148 mm[Hg] MD John Carlson Work Phone: [facility] 03-13-2022 18:03-0400 Body temperature 98 [degF] MD John Carlson Work Phone: [facility] 03-13-2022 17:33-0400 Inhaled oxygen flow rate 6 L/min MD John Carlson Work Phone: [facility] 03-13-2022 17:13-0400 Body height 165.1 cm MD John Carlson Work Phone: [facility] 03-13-2022 17:13-0400 Body mass index (BMI) [Ratio] 56.9 kg/m2 MD John Carlson Work Phone: [facility] 03-13-2022 17:13-0400 Body weight 155.12 kg MD John Carlson Work Phone: [facility] 02-13-2022 17:05-0400 Diastolic blood pressure 81 mm[Hg] MD John Carlson Work Phone: [facility] 02-13-2022 17:05-0400 Heart rate 76 /min MD John Carlson Work Phone: [facility] 02-13-2022 17:05-0400 Respiratory rate 16 /min MD John Carlson Work Phone: [facility] 02-13-2022 17:05-0400 SaO2% (BldA) [Mass fraction] 94 % MD John Carlson Work Phone: [facility] 02-13-2022 17:05-0400 Systolic blood pressure 131 mm[Hg] MD John Carlson Work Phone: [facility] 02-13-2022 15:44-0400 Body height 165.1 cm MD John Carlson Work Phone: [facility] 02-13-2022 15:44-0400 Body mass index (BMI) [Ratio] 56.5 kg/m2 MD John Carlson Work Phone: [facility] 02-13-2022 15:44-0400 Body weight 154 kg MD John Carlson Work Phone: [facility] 02-13-2022 12:20-0400 Body temperature 97.9 [degF] MD John Carlson Work Phone: [facility] 08-02-2020 13:24-0500 BMI (Body Mass Index) 58.74 kg/m2 [facility] 08-02-2020 13:24-0500 Body Temperature 98.4 [degF] [facility] 08-02-2020 13:24-0500 Body weight 160.12 kg [facility] 08-02-2020 13:24-0500 BP Diastolic 91 mm[Hg] [facility] 08-02-2020 13:24-0500 BP Systolic 150 mm[Hg] [facility] 08-02-2020 13:24-0500 Height 165.1 cm [facility] 08-02-2020 13:24-0500 Pulse (Heart Rate) 91 /min [facility] 08-02-2020 13:24-0500 Pulse Oximetry 97 % [facility] Encounters Encounter Date Encounter Type Care Provider Facility Start: 04-22-2024 End: 04-22-2024 Telephone encounter Amarilysfrancisco GARCIAW Hematology/Oncology Start: 04-18-2024 End: 04-18-2024 Office outpatient visit 25 minutes Sharif Joseph MD Work Phone: Hematology/Oncology Comment on above: Primary hypercoagula ble state (HCC) (Primary Dx); MTHFR mutation; Factor V Leiden (HCC); Iron deficiency anemia, unspecified iron deficiency anemia type Start: 04-18-2024 End: 04-18-2024 ambulatory [facility] Facility:[facility] Start: 04-14-2024 Patient encounter procedure [facility] Provider [facility] Department Start: 04-09-2024 End: 04-09-2024 ambulatory [facility] Start: 04-08-2024 Telephone encounter Bello Gan Hematology/Oncology Comment on above: letter of medical cl earance Start: 04-08-2024 End: 04-08-2024 Departed Referred DO Dannie Dickinson Work Phone: [facility] Start: 04-08-2024 End: 04-08-2024 ambulatory DANNIE DICKINSON [facility] Work Phone: Start: 04-02-2024 Telephone encounter Bello Gan Hematology/Oncology Start: 04-01-2024 ambulatory Sharif khanna MD Work Phone: Hematology/Oncology Comment on above: Hidradenitis support efren Start: 03-26-2024 End: 03-26-2024 ambulatory [facility] Start: 03-24-2024 End: 03-24-2024 ambulatory Yancy Cancino MD Facility:[facility] Start: 03-20-2024 ambulatory Sharif khanna MD Work Phone: Hematology/Oncology Comment on above: [place] Start: 03-17-2024 End: 03-17-2024 ambulatory DANNIE CASTILLOO Not Available Start: 03-12-2024 End: 03-12-2024 ambulatory [facility] Start: 03-10-2024 End: 03-10-2024 ambulatory Yancy Cancino MD Facility: [facility] Start: 02-27-2024 End: 02-27-2024 ambulatory DANNIE CASTILLOO Not Available Start: 02-13-2024 End: 02-13-2024 ambulatory [facility] Start: 01-23-2024 End: 01-23-2024 ambulatory [facility] Start: 01-10-2024 End: 01-10-2024 ambulatory [facility] Start: 12-25-2023 End: 12-25-2023 ambulatory [facility] Start: 12-20-2023 End: 12-20-2023 Office outpatient visit 25 minutes Sharif Joseph MD Work Phone: Hematology/Oncology Comment on above: Primary hypercoagula ble state (HCC) (Primary Dx); Factor V Leiden (HCC); MTHFR mutation; Iron deficiency anemia, unspecified iron deficiency anemia type; Factor V deficiency (HCC) Start: 12-20-2023 End: 12-20-2023 ambulatory HARLEY THACKER Facility:[facility] Start: 12-12-2023 End: 12-13-2023 ambulatory MATTHEW PITTMAN [facility] Start: 12-12-2023 End: 12-12-2023 [facility] Start: 12-11-2023 End: 12-11-2023 ambulatory [facility] Start: 12-11-2023 End: 12-11-2023 Evaluation and management of inpatient MAYRA RAYA [facility] Start: 12-10-2023 End: 12-11-2023 Evaluation and management of inpatient COLLINS MEJIA [facility] Start: 12-07-2023 End: 12-08-[address] [facility] Start: 12-07-2023 Encounter for genera l adult medical examination without abnormal findings [facility] Start: 12-07-2023 End: 12-07-2023 Patient encounter status Harley Mirandas OPTICAL WORKER-SYNTHETIC PLASTERER Work Phone: [facility] Work Phone: Start: 12-07-2023 End: 12-07-2023 Periodic preventive med est patient 18-39 yrs Harley Thacker OPTICAL WORKER-SYNTHETIC PLASTERER Work Phone: [facility] Comment on above: Wellness examination (Primary Dx); Shalom's disease; Controlled type 2 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 complication, without long-term current use of insulin ([facility]); Encounter for Papanicolaou smear for cervical cancer screening; Hidradenitis suppurativa Start: 12-07-2023 End: 12-07-2023 ambulatory [facility] Start: 12-07-2023 Encounter for genera l adult medical examination without abnormal findings [facility] Start: 12-07-2023 End: 12-07-[address] [facility] Start: 12-06-2023 Orders Only Harley jordan OPTICAL WORKER-SYNTHETIC PLASTERER Work Phone: [facility] Start: 12-05-2023 End: 12-05-2023 ambulatory [facility] Pat Phone Call Provider 1 [facility] - Pre Admit Start: 12-03-2023 Telephone encounter Gwen Kwon [facility] Start: 11-29-2023 End: 11-29-2023 [facility] Start: 11-29-2023 End: 11-29-2023 Office outpatient new 45 minutes Sharif Joseph MD Work Phone: Hematology/Oncology Comment on above: Factor V Leiden (HCC ) (Primary Dx); Gastrointestinal hemorrhage, unspecified gastrointestinal hemorrhage type; Iron deficiency anemia, unspecified iron deficiency anemia type; MTHFR mutation; Primary hypercoagulable state (HCC); History of pulmonary embolism Start: 11-28-2023 End: 11-28-2023 ambulatory [facility] Start: 11-28-2023 End: 11-28-2023 Office outpatient visit 15 minutes Pam Mittal MD Work Phone: [facility] Comment on above: Essential hypertensi on (Primary Dx) Start: 11-27-2023 Chart abstracting Sharif clarke MD Work Phone: Hematology/Oncology Start: 11-27-2023 Telephone encounter Claribel Myers CMA [facility] Start: 11-27-2023 End: 11-27-2023 Office outpatient visit 15 minutes [facility] OPTICAL WORKER-SYNTHETIC PLASTERER Work Phone: [facility] Comment on above: Bipolar depression ( [facility]) (Primary Dx); Post traumatic stress disorder (PTSD); Generalized anxiety disorder; Attention deficit hyperactivity disorder, combined type Start: 11-27-2023 End: 11-27-2023 ambulatory [facility] Start: 11-27-2023 End: 11-27-2023 ambulatory [facility] Start: 11-15-2023 End: [address] [facility] Start: 11-14-2023 End: 11-14-2023 ambulatory [facility] Start: 11-14-2023 Encounter for other preprocedural examination [facility] Start: 11-14-2023 End: 11-14-2023 Office outpatient visit 15 minutes [facility] OPTICAL WORKER-SYNTHETIC PLASTERER Work Phone: [facility] Comment on above: Preoperative clearan ce (Primary Dx); Abnormal echocardiogram; History of DVT (deep vein thrombosis); History of pulmonary embolism; Factor 5 Leiden mutation, heterozygous (CMS-HCC); 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 ([facility]); Chest discomfort; Shortness of breath; Atrial mass; Gastroesophageal reflux disease, unspecified whether esophagitis present Start: 11-14-2023 End: 11-14-2023 Preoperative state Harley Thacker OPTICAL WORKER-SYNTHETIC PLASTERER Work Phone: [facility] Work Phone: Start: 11-14-2023 End: 11-14-2023 ambulatory CLARIBELJONATHON OLSON [facility] Start: 11-12-2023 Telephone encounter Bruna Plasencia CMA [facility] Start: 11-09-2023 End: 11-10-2023 ambulatory KATYA DENISE [facility] Start: 11-09-2023 Encounter for other preprocedural examination [facility] Start: 11-09-2023 End: 11-09-2023 Patient encounter procedure [facility] Pre-Admission Testing 1 [facility] - Pre Admit Comment on above: Preop examination (P rimary Dx); MTHFR (methylene THF reductase) deficiency and homocystinuria ([facility]); BMI 60.0-69.9, adult ([facility]); Hypertension, unspecified type; Blood clotting disorder ([facility]) Start: 11-09-2023 End: 11-09-2023 Preprocedural examination done [facility] 1 [facility] Start: 11-08-2023 End: 11-08-2023 ambulatory [facility] Start: 11-07-2023 End: 11-07-2023 Office outpatient new 45 minutes Corine Germán Catherine OPTICAL WORKER-SYNTHETIC PLASTERER Work Phone: [facility] Comment on above: Gastroesophageal ref lux disease, unspecified whether esophagitis present (Primary Dx); Nausea and vomiting, unspecified vomiting type; Diarrhea, unspecified type; Morbid obesity ([facility]) Start: 11-07-2023 End: 11-07-2023 ambulatory [facility] Start: 10-30-2023 End: 10-30-2023 ambulatory CLARIBEL WHITNEY [facility] Start: 10-23-2023 Refill Susana Rizvi [facility] Start: 10-22-2023 Telephone encounter Lauryn Fry [facility] - Medical Oncology Start: 10-19-2023 End: 10-19-2023 ambulatory YASHIRA M [facility] Start: 10-08-2023 End: 10-08-2023 Office outpatient new 45 minutes [facility] OPTICAL WORKER-SYNTHETIC PLASTERER Work Phone: [facility] Comment on above: PE (pulmonary thromb oembolism) ([facility]) (Primary Dx); History of pulmonary embolism; History of DVT (deep vein thrombosis); Factor 5 Leiden mutation, heterozygous ([facility]); 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 ([facility]); Bipolar 1 disorder ([facility]); Insulin resistance; History of prediabetes; History of insulin resistance; Gastroesophageal reflux disease, unspecified whether esophagitis present; Nausea and vomiting, unspecified vomiting type; Hidradenitis suppurativa; Migraine without aura and without status migrainosus, not intractable; Prediabetes Start: 10-08-2023 End: 10-08-2023 ambulatory [facility] Start: 06-25-2023 End: 06-25-2023 ambulatory Yancy Cancino MD Facility:[facility] Start: 05-28-2023 End: 05-28-2023 ambulatory Yancy Cancino MD Facility:[facility] Start: 02-01-2023 ambulatory NIKOLAS SHAMMO Facility:[facility] Start: 12-05-2022 ambulatory NIKOLAS SHAMMO Facility:[facility] Start: 11-22-2022 End: 11-22-2022 ambulatory NIKOLAS SHAMMO Facility:[facility] Start: 11-02-2022 End: 11-03-[address] KACEY KAPOOR . Facility:[facility] Start: 10-24-2022 Encounter for genera l adult medical examination without abnormal findings NIKOLASKURT KOVACS [facility] Start: 10-23-2022 End: 10-24-2022 Encounter for general adult medical examination without abnormal findings NIKOLAS SHAMMO Facility:[facility] Start: 10-23-2022 End: 10-24-2022 ambulatory NIKOLAS KOVACS Facility:[facility] Start: 09-28-2022 End: 09-29-[address] KACEY KAPOOR . Facility:[facility] Start: 09-26-2022 End: 09-26-2022 ambulatory DELONTE BAUTISTA . Facility:[facility] Start: 09-05-2022 End: 09-05-2022 ambulatory [facility] Facility:[facility] Start: 06-05-2022 End: 06-06-2022 ambulatory [facility] Facility:[facility] Start: 06-01-2022 End: 06-02-[address] KACEY KAPOOR . Facility:[facility] Start: 05-05-2022 Registered Recurring MD John Carlson Work Phone: [facility] - [facility] Start: 04-10-2022 End: 04-10-2022 Admission to same day surgery center MD John Carlson Work Phone: [facility] [place] Start: 04-06-2022 End: 04-06-2022 Patient encounter procedure MD John Carlson Work Phone: [facility]Pre-Surgical Testing Start: 03-30-2022 End: 03-30-2022 Patient encounter procedure MD John Carlson Work Phone: [facility] [place] Start: 03-13-2022 End: 03-13-2022 Admission to same day surgery center MD John Carlson Work Phone: [facility] [place] Start: 03-09-2022 End: 03-09-2022 Patient encounter procedure MD John Carlson Work Phone: [facility] Start: 03-01-2022 End: 03-02-2022 ambulatory PAM FLANAGAN Facility:[facility] Start: 02-13-2022 End: 02-13-2022 Admission to same day surgery center MD John Carlson Work Phone: [facility] [place] Start: 02-09-2022 End: 02-09-2022 Patient encounter procedure MD John Carlson Work Phone: [facility] Start: 08-02-2020 End: 08-02-2020 Patient encounter procedure SANTIAGO SHELL [facility] Start: 08-02-2020 End: 08-02-2020 Office outpatient new 60 minutes Santiago Shell Work Phone: [facility] Rhe[facility]ology Comment on above: Lupus (HCC) (Primary Dx); Suppurative hidradenitis; Chronic fatigue; YULY (obstructive sleep apnea); Vitamin D insufficiency; Morbid obesity with BMI of 50.0-59.9, adult (HCC) Start: 06-03-2020 Patient encounter procedure ELIZABETH SHEMARTrev [facility] Procedures Date Procedure Procedure Detail [...] Psychiatric diagnostic eval w/medical services Bipolar depression (CMS-HCC) Yashira Mi OPTICAL WORKER-SYNTHETIC PLASTERER Work Phone: Comment on above: Generalized anxiety disorder (Primary Dx); Bipolar depression (CMS-HCC); Post traumatic stress disorder (PTSD); Attention deficit hyperactivity disorder, combined type Start: 10-08-2023 Gluc bld gluc mntr d ev cleared fda spec home use Harley Thacker OPTICAL WORKER-SYNTHETIC PLASTERER Work Phone: Start: 10-08-2023 Adult depression screening assessment Harley Thacker OPTICAL WORKER-SYNTHETIC PLASTERER Work Phone: Start: 04-10-2022 OR Wound Debridement/I&D/Hydraden [...] 12-06-2024 Adult BMI Screening Adult BMI Screening [facility] Start: 12-06-2024 Diabetic foot examination Diabetic Foot Exam [facility] Start: 12-06-2024 Tobacco Screening Tobacco Screening [facility] Start: 11-27-2024 Adult BMI Screening Adult BMI Screening [facility] Start: 11-27-2024 Tobacco Screening Tobacco Screening [facility] Start: 11-13-2024 Adult BMI Screening Adult BMI Screening [facility] Start: 11-13-2024 Tobacco Screening Tobacco Screening [facility] Start: 11-11-2024 Tobacco Screening Tobacco Screening [facility] Start: 11-08-2024 Tobacco Screening Tobacco Screening [facility] Start: 11-06-2024 Adult BMI Screening Adult BMI Screening [facility] Start: 11-06-2024 Tobacco Screening Tobacco Screening [facility] Start: 10-19-2024 Adult BMI Screening Adult BMI Screening [facility] Start: 10-19-2024 End: 04-18-2025 CBC W Auto Differential panel - Blood COMPLETE BLOOD COUNT AND DIFFERENTIAL Lab Routine Primary hypercoagulable state (HCC) MTHFR mutation Iron deficiency anemia, unspecified iron deficiency anemia type Expected: 10/19/2024, Expires: 04/18/2025 [facility] Work Phone: Comment on above: Expected: 10/19/2024, Expires: Start: 10-19-2024 End: 04-18-2025 Cobalamin (Vitamin B12) [Mass/volume] in Serum or Plasma VITAMIN B12 Lab Routine Primary hypercoagulable state (HCC) MTHFR mutation Iron deficiency anemia, unspecified iron deficiency anemia type Expected: 10/19/2024, Expires: 04/18/2025 [facility] Comment on above: Expected: 10/19/2024, Expires: Start: 10-19-2024 End: 04-18-2025 Comprehensive metabolic 2000 panel - Serum or Plasma COMPREHENSIVE METABOLIC PANEL Lab Routine Primary hypercoagulable state (HCC) MTHFR mutation Iron deficiency anemia, unspecified iron deficiency anemia type Expected: 10/19/2024, Expires: 04/18/2025 [facility] Comment on above: Expected: 10/19/2024, Expires: Start: 10-19-2024 End: 04-18-2025 Ferritin [Mass/volume] in Serum or Plasma FERRITIN Lab Routine Primary hypercoagulable state (HCC) MTHFR mutation Iron deficiency anemia, unspecified iron deficiency anemia type Expected: 10/19/2024, Expires: 04/18/2025 [facility] Comment on above: Expected: 10/19/2024, Expires: Start: 10-19-2024 End: 04-18-2025 Folate [Mass/volume] in Serum or Plasma FOLATE, SERUM Lab Routine Primary hypercoagulable state (HCC) MTHFR mutation Iron deficiency anemia, unspecified iron deficiency anemia type Expected: 10/19/2024, Expires: 04/18/2025 [facility] Comment on above: Expected: 10/19/2024, Expires: Start: 10-19-2024 End: 04-18-2025 Iron and Iron binding capacity panel - Serum or Plasma IRON AND TIBC Lab Routine Primary hypercoagulable state (HCC) MTHFR mutation Iron deficiency anemia, unspecified iron deficiency anemia type Expected: 10/19/2024, Expires: 04/18/2025 [facility] Comment on above: Expected: 10/19/2024, Expires: Start: 10-19-2024 Tobacco Screening Tobacco Screening [facility] Start: 10-17-2024 End: 10-17-2024 Follow-up encounter 10/17/2024 11:30 AM EST Visi t (SP) Office Hematology/Oncology [address] [place] [address] Sharif Joseph MD [address] [place] [address] 6 month follow up lab Hematology/Oncolo gy Comment on above: 6 month follow up lab Start: 10-17-2024 End: 10-17-2024 Patient encounter procedure 10/17/2024 11:15 AM EST Office Visit [facility] [address] [place] [address] 6 month follow up lab [facility] Comment on above: 6 month follow up lab Start: 10-08-2024 Adult BMI Screening Adult BMI Screening [facility] Start: 10-08-2024 Depression Screening Depression Screening [facility] Start: 10-08-2024 Tobacco Screening Tobacco Screening [facility] Start: 05-04-2024 Influenza vaccination [facility] Start: 04-18-2024 End: 04-18-2024 Follow-up encounter 04/18/2024 11:30 AM EDT Visi t (SP) Office Hematology/Oncology [address] [place] [address] Sharif Joseph MD [address] [place] [address] 3 month follow up lab Hematology/Oncolo gy Comment on above: 3 month follow up lab Start: 04-18-2024 End: 04-18-2024 Patient encounter procedure 04/18/2024 11:15 AM EDT Office Visit [facility] [address] [place] [address] 3 month follow up lab [facility] Comment on above: 3 month follow up lab Start: 04-08-2024 [facility] Start: 03-20-2024 End: 12-19-2024 CBC W Auto Differential panel - Blood COMPLETE BLOOD COUNT AND DIFFERENTIAL Lab Routine Factor V Leiden (HCC) MTHFR mutation Primary hypercoagulable state (HCC) Iron deficiency anemia, unspecified iron deficiency anemia type Expected: 03/20/2024 (Approximate), Expires: 12/19/2024 [facility] Work Phone: Comment on above: Expected: 03/20/2024 (Approximate), Expi res: 12/19/2024 Start: 03-20-2024 End: 12-19-2024 Cobalamin (Vitamin B12) [Mass/volume] in Serum or Plasma VITAMIN B12 Lab Routine Factor V Leiden (HCC) MTHFR mutation Primary hypercoagulable state (HCC) Iron deficiency anemia, unspecified iron deficiency anemia type Expected: 03/20/2024 (Approximate), Expires: 12/19/2024 [facility] Work Phone: Comment on above: Expected: 03/20/2024 (Approximate), Expi res: 12/19/2024 Start: 03-20-2024 End: 12-19-2024 Comprehensive metabolic 2000 panel - Serum or Plasma COMPREHENSIVE METABOLIC PANEL Lab Routine Factor V Leiden (HCC) MTHFR mutation Primary hypercoagulable state (HCC) Iron deficiency anemia, unspecified iron deficiency anemia type Expected: 03/20/2024 (Approximate), Expires: 12/19/2024 [facility] Work Phone: Comment on above: Expected: 03/20/2024 (Approximate), Expi res: 12/19/2024 Start: 03-20-2024 End: 12-19-2024 Ferritin [Mass/volume] in Serum or Plasma FERRITIN Lab Routine Factor V Leiden (HCC) MTHFR mutation Primary hypercoagulable state (HCC) Iron deficiency anemia, unspecified iron deficiency anemia type Expected: 03/20/2024 (Approximate), Expires: 12/19/2024 [facility] Work Phone: Comment on above: Expected: 03/20/2024 (Approximate), Expi res: 12/19/2024 Start: 03-20-2024 End: 12-19-2024 Folate [Mass/volume] in Serum or Plasma FOLATE, SERUM Lab Routine Factor V Leiden (HCC) MTHFR mutation Primary hypercoagulable state (HCC) Iron deficiency anemia, unspecified iron deficiency anemia type Expected: 03/20/2024 (Approximate), Expires: 12/19/2024 [facility] Work Phone: Comment on above: Expected: 03/20/2024 (Approximate), Expi res: 12/19/2024 Start: 03-20-2024 End: 12-19-2024 Iron and Iron binding capacity panel - Serum or Plasma IRON AND TIBC Lab Routine Factor V Leiden (HCC) MTHFR mutation Primary hypercoagulable state (HCC) Iron deficiency anemia, unspecified iron deficiency anemia type Expected: 03/20/2024 (Approximate), Expires: 12/19/2024 [facility] Work Phone: Comment on above: Expected: 03/20/2024 (Approximate), Expi res: 12/19/2024 Start: 01-02-2024 End: 04-02-2024 Homocysteine [Moles/volume] in Serum or Plasma HOMOCYSTEINE Lab Routine Factor V Leiden (HCC) Gastrointestinal hemorrhage, unspecified gastrointestinal hemorrhage type Iron deficiency anemia, unspecified iron deficiency anemia type MTHFR mutation Primary hypercoagulable state (HCC) History of pulmonary embolism Expected: 01/02/2024 (Approximate), Expires: 04/02/2024 [facility] Work Phone: Comment on above: Expected: 01/02/2024 (Approximate), Expi res: 04/02/2024 Start: 12-25-2023 End: 12-25-2023 Patient encounter procedure 12/25/2023 9:30 AM EDT Off ice Visit [facility] [address] [place] [address], [place] [address] Claribel Olson LISW [address] [place] [phone] [facility] Start: 12-12-2023 End: 12-12-2023 Patient encounter procedure 12/12/2023 9:30 AM EDT Appointment [facility] Cardi[facility] [address] [place] [phone] [facility] Start: 12-11-2023 End: 12-11-2023 Patient encounter procedure 12/11/2023 9:30 AM EDT Off ice Visit [facility] [address] [place] [address], [place] [phone] Claribel Olson LISW [address] [facility] [place] [place] [phone] [facility] Start: 12-10-2023 End: 12-10-2023 Admission to same day surgery center 12/10/2023 12:30 PM EDT - 12/10/2023 1:00 PM EDT Surgery [facility] - Surgery [address] [place] [phone] Collins Mejia DO [address] [place] [id number] ESOPHAGOGASTRODUODENOSCOPY DIAGNOSTIC [36160 (CPT )] [facility] Comment on above: ESOPHAGOGASTRODUODENOSCOPY DIAGNOSTIC [4 3235 (CPT )] Start: 12-10-2023 End: 12-10-2023 Esophagogastroduodenoscopy transoral diagnostic ESOPHAGOGASTRODUODENOSCOPY DIAGNOSTIC gastroesophageal reflux, nausea, vomiting 12/10/2023 12:30 PM EDT [facility] Start: 12-10-2023 Subsequent hospital visit by physician 12/10/2023 12:30 PM EDT Hospital Encounter [facility] [address] [place] [address] [place] [address] [place] [address] [phone] [facility] Start: 12-10-2023 End: 12-10-2023 Admission to same day surgery center 12/10/2023 7:30 AM EDT - 12/10/2023 8:00 AM EDT Surgery [facility] [address] [place] [address] Collins Mejia, DO [address] [place] [address] [id number] ESOPHAGOGASTRODUODENOSCOPY DIAGNOSTIC [03210 (CPT )] [facility] Comment on above: ESOPHAGOGASTRODUODENOSCOPY DIAGNOSTIC [4 3235 (CPT )] Start: 12-10-2023 End: 12-10-2023 Esophagogastroduodenoscopy transoral diagnostic ESOPHAGOGASTRODUODENOSCOPY DIAGNOSTIC gastroesophageal reflux, nausea, vomiting 12/10/2023 7:30 AM EDT [facility] Start: 12-10-2023 Subsequent hospital visit by physician 12/10/2023 7:30 AM EDT Hospital Encounter [facility] [address] [place] [phone] Collins Mejia, DO [facility] [place], [place] [phone] [facility] Start: 12-07-2023 End: 12-07-2023 Patient encounter procedure 12/07/2023 11:00 AM EDT Office Visit [facility] [address] [place] [address] [phone] Harley Thacker, OPTICAL WORKER-SYNTHETIC PLASTERER [address] [place] [address] [facility] Start: 11-28-2023 End: 11-28-2023 Patient encounter procedure 11/28/2023 10:15 AM EDT Office Visit [facility] [address] [address] Pam Mittal MD [address] [facility] [place] [phone] [facility] Start: 11-27-2023 End: 11-27-2023 Patient encounter procedure [facility] Start: 11-21-2023 End: 11-12-2024 Echo complete W/O contrast Echo complete W/O contrast Echocardiography Routine Preoperative clearance Abnormal echocardiogram History of pulmonary embolism Atrial mass Expected: 11/21/2023 (Approximate), Expires: 11/12/2024 [facility] Comment on above: Expected: 11/21/2023 (Approximate), Expi res: 11/12/2024 Start: 11-19-2023 End: 11-19-2023 Admission to same day surgery center 11/19/2023 12:15 PM EDT - 11/19/2023 12:45 PM EDT Surgery [facility] Surgery [address] [place] [address] Collins Mejia DO [address] [place] [address] ESOPHAGOGASTRODUODENOSCOPY DIAGNOSTIC [49705 (CPT )] [facility] Comment on above: ESOPHAGOGASTRODUODENOSCOPY DIAGNOSTIC [4 3235 (CPT )] Start: 11-19-2023 End: 11-19-2023 Anesthesia consultation 11/19/2023 12:15 PM EDT Anesthesia Event [facility] Surgery [address] [place] [phone] Mayra Raya, DO [address] [facility] [place] [address] [facility] Start: 11-19-2023 End: 11-19-2023 Esophagogastroduodenoscopy transoral diagnostic ESOPHAGOGASTRODUODENOSCOPY DIAGNOSTIC gastroesophageal reflux, nausea, vomiting 11/19/2023 12:15 PM EDT [facility] Start: 11-19-2023 Subsequent hospital visit by physician [facility] Start: 11-15-2023 End: 11-12-2024 XR Chest PA and Lateral X-ray chest 2 views Imaging Routine Preoperative clearance Expected: 11/15/2023 (Approximate), Expires: 11/12/2024 [facility] Work Phone: Comment on above: Expected: 11/15/2023 (Approximate), Expi res: 11/12/2024 Start: 11-15-2023 End: 11-15-2023 Patient encounter procedure 11/15/2023 10:30 AM EDT Appointment [facility] Imaging [address] [place] [phone] [facility] Start: 11-14-2023 End: 11-14-2023 Patient encounter procedure 11/14/2023 3:15 PM EDT Off ice Visit [facility] [address] [place] [address] Harley Thacker APRN-DAVID [address] [place] [address] [facility] Start: 11-14-2023 End: 11-13-2024 CT Chest WO and CT angiogram Coronary arteries W contrast IV CT angiogram chest Imaging Routine Abnormal echocardiogram History of DVT (deep vein thrombosis) History of pulmonary embolism Factor 5 Leiden mutation, heterozygous ([facility]-HCC) 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 ([facility]-HCC) Chest discomfort Shortness of breath Atrial mass Expected: 11/14/2023, Expires: 11/13/2024 [facility] Comment on above: Expected: 11/14/2023, Expires: Start: 11-14-2023 End: 11-14-2023 Telemedicine consultation with patient 11/14/2023 9:30 AM EDT Telemedicine [facility] [address] [place] [address] Claribel Olson LISW [address] [place] [address] [facility] Start: 11-09-2023 End: 11-09-2023 Patient encounter procedure 11/09/2023 9:45 AM EST Procedure visit [facility] - Pre Admit [address] [place] [phone] [facility] - Pre Admit Start: 11-07-2023 End: 11-07-2023 Anesthesia consultation 11/07/2023 11:59 PM EST Anesthesia Event [facility] - Surgery [address] [place] [phone] Mayra Raya, DO [address] [facility] [place] [address] [facility] Start: 11-07-2023 End: 11-07-2023 Patient encounter procedure 11/07/2023 10:00 AM EST Office Visit [facility] General Surgery [address] [place] [address] Corine Catherine, OPTICAL WORKER-SYNTHETIC PLASTERER [address] [place] [address] [facility] Start: 10-30-2023 End: 10-30-2023 Patient encounter procedure 10/30/2023 9:30 AM EST Off ice Visit [facility] [address] [place] [phone] Claribel Olson LISW [address] [place] [address] [facility] Start: 10-19-2023 End: 10-19-2023 Patient encounter procedure 10/19/2023 10:00 AM EST Office Visit [facility] [address] [place] [phone] Yashira Mi, OPTICAL WORKER-SYNTHETIC PLASTERER [address] [place] [address] [facility] Start: 09-03-2023 Behavioral Health Screening Behavioral Health Screening [facility] Start: 09-03-2023 Depression Assessment Depression Assessment [facility] Start: 05-04-2023 Covid-19 Vaccine ( season) Covid-19 Vaccine () [facility] Start: 05-04-2023 Influenza vaccination [facility] Start: 05-03-2022 Registered Recurring Registered Recurring [facility] - [facility] Start: 04-21-2022 Registered Recurring Registered Recurring [facility] - [facility] Start: 04-10-2022 [facility] Work Phone: Start: 04-10-2022 [facility] Work Phone: Start: 04-10-2022 OR Wound Debridement/I&D/Hydradenitis (Right) OR Wound Debridement/I&D/Hydradenitis (Right) [facility] Start: 04-10-2022 End: 04-10-2022 Admission to same day surgery center Departed Surgical Day Care [facility] [place] Start: 04-06-2022 End: 04-06-2022 Patient encounter procedure Departed Clinical [facility] Start: 03-13-2022 End: 03-13-2022 [facility] Work Phone: Start: 02-13-2022 End: 02-13-2022 [facility] Work Phone: Start: 05-04-2020 Influenza vaccination given Sequential Influenza Vacci ne (#1) [facility] Start: 11-17-2019 Screening for malignant neoplasm of cervix HPV Testing [facility] Start: 09-03-2019 DTaP,Tdap and Td Vaccines (8 - Td or Tdap) DTaP,Tdap and Td Vaccines (8 - Td or Tdap) [facility] Start: 09-03-2019 Urine microalbumin profile DTaP,Tdap,Td Vaccine (8 - T d or Tdap) [facility] Start: 06-10-2019 Tetanus vaccination Tetanus: Every 10yrs [facility] Start: 2010 Screening for malignant neoplasm of cervix [facility] Start: 2008 Shingrix Vaccine (1 of 2) Shingrix Vaccine (1 of 2) [facility] Start: 11-17-2007 Adult BMI Follow Up Plan Adult BMI Follow Up Plan [facility] Start: 11-17-2007 Anxiety Screening Anxiety Screening [facility] Start: 11-17-2007 Depression Screening Depression Screening [facility] Start: 11-17-2007 Hepatitis C antibody, confirmatory test Hepatitis C Screening [facility] Start: 11-17-2007 Hepatitis C screening Hepatitis C Screening [facility] Start: 11-17-2007 HIV screening HIV Screening [facility] Start: 2004 HIV screening HIV Screening [facility] Start: 2001 Adolescent depression screening assessment Depression Screening (PHQ9) [facility] Start: 2000 Screening for malignant neoplasm of cervix Cervical Cancer Screening [facility] Start: 11-17-1995 Pneumococcal vaccination Pneumococcal Vaccine (1 of 2 - PCV) [facility] Start: 1994 Covid-19 Vaccine (#1) Covid-19 Vaccine (#1) [facility] Start: 1992 History and physical examination, annual for health maintenance Wellness Visit [facility] Start: 1989 Glaucoma screening Diabetic Ophthalmology Exam [facility] Start: 1989 Screening for malignant neoplasm of cervix Pap Smear [facility] Calprotectin [Mass/m ass] in Stool Calprotectin stool Lab Routine Diarrhea, unspecified type 11/07/2023 10:38 PM EST [facility] End: 11-06-2024 Calprotectin stool Calprotectin stool Lab Routine Diarrhea, unspecified type 1 Occurrences starting 11/07/2023 until 11/06/2024 [facility] Comment on above: 1 Occurrences starting 11/07/2023 until 11/06/2024 End: 11-28-2024 CBC W Auto Differential panel - Blood CBC + DIFF Lab Routine Factor V Leiden (HCC) Gastrointestinal hemorrhage, unspecified gastrointestinal hemorrhage type Iron deficiency anemia, unspecified iron deficiency anemia type Every 3 weeks for 6 Occurrences starting 11/29/2023 until 11/28/2024 [facility] Work Phone: Comment on above: Every 3 weeks for 6 Occurrences starting 11/29/2023 until 11/28/2024 End: 11-28-2024 Cobalamin (Vitamin B12) [Mass/volume] in Serum or Plasma VITAMIN B12 BLOOD Lab Routine Factor V Leiden (HCC) Gastrointestinal hemorrhage, unspecified gastrointestinal hemorrhage type Iron deficiency anemia, unspecified iron deficiency anemia type Every 3 weeks for 6 Occurrences starting 11/29/2023 until 11/28/2024 [facility] Work Phone: Comment on above: Every 3 weeks for 6 Occurrences starting 11/29/2023 until 11/28/2024 End: 11-28-2024 Comprehensive metabolic 2000 panel - Serum or Plasma COMP METABOLIC PANEL Lab Routine Factor V Leiden (HCC) Gastrointestinal hemorrhage, unspecified gastrointestinal hemorrhage type Iron deficiency anemia, unspecified iron deficiency anemia type Every 3 weeks for 6 Occurrences starting 11/29/2023 until 11/28/2024 [facility] Work Phone: Comment on above: Every 3 weeks for 6 Occurrences starting 11/29/2023 until 11/28/2024 End: 12-06-2024 Cytopathology procedure, preparation of smear, genital source Pap Smear Pathology and Cytology Routine Wellness examination Encounter for Papanicolaou smear for cervical cancer screening 1 Occurrences starting 12/07/2023 until 12/06/2024 [employer] Work Phone: Comment on above: 1 Occurrences starting 12/07/2023 until 12/06/2024 End: 11-06-2024 Esophagogastroduodenoscopy EGD GI Routine Gastroesophageal reflux disease, unspecified whether esophagitis present Nausea and vomiting, unspecified vomiting type 1 Occurrences starting 11/07/2023 until 11/06/2024 [employer] Work Phone: Comment on above: 1 Occurrences starting 11/07/2023 until 11/06/2024 Esophagogastroduoden oscopy transoral diagnostic ESOPHAGOGASTRODUODENOSCOPY DIAGNOSTIC gastroesophageal reflux, nausea, vomiting [facility] End: 11-28-2024 Ferritin [Mass/volume] in Serum or Plasma FERRITIN BLD Lab Routine Factor V Leiden (HCC) Gastrointestinal hemorrhage, unspecified gastrointestinal hemorrhage type Iron deficiency anemia, unspecified iron deficiency anemia type Every 3 weeks for 6 Occurrences starting 11/29/2023 until 11/28/2024 [facility] Work Phone: Comment on above: Every 3 weeks for 6 Occurrences starting 11/29/2023 until 11/28/2024 End: 11-28-2024 Folate [Mass/volume] in Serum or Plasma FOLATE SERUM Lab Routine Factor V Leiden (HCC) Gastrointestinal hemorrhage, unspecified gastrointestinal hemorrhage type Iron deficiency anemia, unspecified iron deficiency anemia type Every 3 weeks for 6 Occurrences starting 11/29/2023 until 11/28/2024 [facility] Work Phone: Comment on above: Every 3 weeks for 6 Occurrences starting 11/29/2023 until 11/28/2024 End: 12-06-2024 High risk HPV w/yoshi High risk HPV w/yoshi Lab Routine Wellness examination Encounter for Papanicolaou smear for cervical cancer screening 1 Occurrences starting 12/07/2023 until 12/06/2024 [employer] Comment on above: 1 Occurrences starting 12/07/2023 until 12/06/2024 End: 11-28-2024 Iron and Iron binding capacity panel - Serum or Plasma IRON + TIBC Lab Routine Factor V Leiden (HCC) Gastrointestinal hemorrhage, unspecified gastrointestinal hemorrhage type Iron deficiency anemia, unspecified iron deficiency anemia type Every 3 weeks for 6 Occurrences starting 11/29/2023 until 11/28/2024 [facility] Work Phone: Comment on above: Every 3 weeks for 6 Occurrences starting 11/29/2023 until 11/28/2024 Patient Education [facility] Work Phone: Patient referral [facility] Work Phone: [facility] Immunizations Immunization Date Immunization Notes Care Provider Harriet lao 06-15-2014 influenza, seasonal, injectable Harley Thacker OPTICAL WORKER-SYNTHETIC PLASTERER Work Phone: [facility] 06-15-2014 influenza virus vacc ine, unspecified formulation Harley Thacker OPTICAL WORKER-SYNTHETIC PLASTERER Work Phone: [facility] 09-03-2009 diphtheria and tetan us toxoids, adsorbed for pediatric use Harley Thacker OPTICAL WORKER-SYNTHETIC PLASTERER Work Phone: [facility] 06-10-2009 meningococcal polysaccharide (groups A, C, Y and W-135) diphtheria toxoid conjugate vaccine (MCV4P) [facility] 06-10-2009 tetanus toxoid, redu iam diphtheria toxoid, and acellular pertussis vaccine, adsorbed [facility] 06-09-2009 influenza virus vacc ine, whole virus Harley Thacker OPTICAL WORKER-SYNTHETIC PLASTERER Work Phone: [facility] 06-09-2009 influenza, seasonal, injectable [facility] 06-15-2005 influenza virus vacc ine, whole virus Harley Thacker OPTICAL WORKER-SYNTHETIC PLASTERER Work Phone: [facility] 06-15-2005 influenza, seasonal, injectable [facility] 12-14-2003 hepatitis B vaccine, pediatric or pediatric/adolescent dosage [facility] 12-14-2003 hepatitis B vaccine, unspecified formulation Sharif Joseph MD Work Phone: [facility] 08-26-2003 hepatitis B vaccine, pediatric or pediatric/adolescent dosage [facility] 08-26-2003 hepatitis B vaccine, unspecified formulation Sharif Joseph MD Work Phone: [facility] 03-30-2003 hepatitis B vaccine, pediatric or pediatric/adolescent dosage [facility] 03-30-2003 hepatitis B vaccine, unspecified formulation Sharif Joseph MD Work Phone: [facility] 02-22-1996 diphtheria, tetanus toxoids and acellular pertussis vaccine [facility] 02-22-1996 diphtheria, tetanus toxoids and acellular pertussis vaccine, unspecified formulation Harley Thacker OPTICAL WORKER-SYNTHETIC PLASTERER Work Phone: [facility] 12-24-1995 measles, mumps and rubella virus vaccine [facility] 12-24-1995 poliovirus vaccine, inactivated [facility] 12-24-1995 trivalent poliovirus vaccine, live, oral Harley Thacker OPTICAL WORKER-SYNTHETIC PLASTERER Work Phone: [facility] 05-14-1991 diphtheria, tetanus toxoids and acellular pertussis vaccine [facility] 05-14-1991 diphtheria, tetanus toxoids and pertussis vaccine Harley Thacker OPTICAL WORKER-SYNTHETIC PLASTERER Work Phone: [facility] 05-14-1991 haemophilus influenz ae type b vaccine, conjugate unspecified formulation [facility] 05-14-1991 poliovirus vaccine, inactivated [facility] 05-14-1991 trivalent poliovirus vaccine, live, oral Harley Thacker OPTICAL WORKER-SYNTHETIC PLASTERER Work Phone: [facility] 02-26-1991 measles, mumps and rubella virus vaccine [facility] 12-18-1990 haemophilus influenz ae type b vaccine, conjugate unspecified formulation [facility] 07-01-1990 diphtheria, tetanus toxoids and acellular pertussis vaccine [facility] 07-01-1990 diphtheria, tetanus toxoids and pertussis vaccine Harley Thacker OPTICAL WORKER-SYNTHETIC PLASTERER Work Phone: [facility] 04-29-1990 diphtheria, tetanus toxoids and acellular pertussis vaccine [facility] 04-29-1990 diphtheria, tetanus toxoids and pertussis vaccine Harley Thacker OPTICAL WORKER-SYNTHETIC PLASTERER Work Phone: [facility] 04-29-1990 poliovirus vaccine, inactivated [facility] 04-29-1990 trivalent poliovirus vaccine, live, oral Harley Thacker OPTICAL WORKER-SYNTHETIC PLASTERER Work Phone: [facility] 02-27-1990 diphtheria, tetanus toxoids and acellular pertussis vaccine [facility] 02-27-1990 diphtheria, tetanus toxoids and pertussis vaccine Harley Thacker OPTICAL WORKER-SYNTHETIC PLASTERER Work Phone: [facility] 02-27-1990 poliovirus vaccine, inactivated [facility] 02-27-1990 trivalent poliovirus vaccine, live, oral Harley Thacker OPTICAL WORKER-SYNTHETIC PLASTERER Work Phone: [facility] Payers Date Payer Category Payer Medicaid [place] [id number] 2020-Present [id number] 2019 Medicaid [id number] 2019 Medicare MEDICARE MEDICAR E PART A & B [id number] 2019-Present [place] [id number] 2019 Medicare [id number] 1.13.424.2.7.3.6 [id number] 1989 Unknown [id number] 2.16.840.1.303032.3.579.2.903 1989 Unknown [id number] 2.16.840.1.611821.3.579.2.593 1989 Unknown [id number] 2.16.840.1.682228.3.579.2.593 1989 Unknown [id number] 2.16.840.1.743214.3.579.2.593 1989 Unknown [id number] 2.16.840.1.633260.3.579.2.593 1989 Unknown [id number] 2.16.840.1.498216.3.579.2.593 1989 Unknown [id number] 2.16.840.1.758972.3.579.2.593 1989 Unknown [id number] 2.16.840.1.861638.3.579.2.593 1989 Unknown [id number] 2.16.840.1.481121.3.579.2.593 1989 Unknown [id number] 2.16.840.1.074573.3.579.2.593 1989 Unknown [id number] 2.16.840.1.041566.3.579.2.593 1989 Unknown [id number] 2.16.840.1.483927.3.579.2.593 1989 Unknown [id number] 2.16.840.1.191855.3.579.2.593 1989 Unknown [id number] 2.16.840.1.698964.3.579.2.1286 1989 Unknown [id number] 2.16.840.1.809096.3.579.2.1286 1989 Unknown [id number] 2.16.840.1.800132.3.579.2.1286 16-1990 Unknown [id number] 2.16.840.1.146918.3.579.2.1285 1989 Unknown [id number] 2.16.840.1.772599.3.579.2.1285 1989 Unknown [id number] 2.16.840.1.597591.3.579.2.1285 1989 Unknown [id number] 2.16.840.1.565217.3.579.2.1285 1989 Unknown [id number] 2.16.840.1.760817.3.579.2.1285 1989 Unknown [id number] 2.16.840.1.658833.3.579.2.1285 1989 Unknown [id number] 2.16.840.1.839452.3.579.2.1285 1989 Unknown [id number] 2.16.840.1.570639.3.579.2.1285 1989 Unknown [id number] 2.16.840.1.126822.3.579.2.1285 1989 Unknown [id number] 2.16.840.1.906571.3.579.2.1285 1989 Unknown [id number] 2.16.840.1.855188.3.579.2.1285 1989 Unknown [id number] 2.16.840.1.746134.3.579.2.1285 1989 Unknown [id number] 2.16.840.1.385340.3.579.2.1285 1989 Unknown [id number] 2.16.840.1.286000.3.579.2. 1989 Unknown [id number] 2.16.840.1.220945.3.579.2. 1989 Unknown [id number] 2.16.840.1.543497.3.579.2.196 1989 Unknown [id number] 2.16.840.1.738006.3.579.2. 1989 Unknown [id number] 2.16.840.1.138989.3.579.2.9 1989 Unknown [id number] 2.16.840.1.756587.3.579.2.1258 1989 Unknown [id number] 2.16.840.1.498183.3.579.2.1258 1989 Unknown [id number] 2..840.1.788847.3.579.2.1285 1989 Unknown [id number] 2..840.1.658259.3.579.2.1285 1989 Unknown [id number] 2.840.1.412969.3.579.2.1285 1989 Unknown [id number] 2.840.1.548745.3.579.2.1285 1989 Unknown [id number] 2.840.1.196250.3.579.2.1285 1989 Unknown [id number] 2.840.1.771376.3.579.2.1285 1989 Unknown [id number] 2.840.1.982067.3.579.2.1285 1989 Unknown [id number] 2.840.1.585641.3.579.2.1285 1989 Unknown [id number] 1990 Unknown [id number] 1990 Unknown [id number] 1989 Unknown [id number] 1989 Unknown [id number] 1989 Unknown [id number] 1989 Unknown [id number] 1989 Unknown [id number] 1989 Unknown [id number] 1960 Medicaid [id number] 1960 Medicare [id number] 1960 Self-pay [id number] Social History Date Type Detail Facility Start: 08-02-2020 End: 11-27-2023 Tobacco smoking status NHIS Former smoker [facility] Start: 08-02-2020 End: 11-29-2023 Cigarettes smoked current (pack per day) - Reported [facility] Start: 08-02-2020 End: 11-27-2023 Tobacco use and exposure Never used [facility] Start: 08-02-2020 Alcohol intake Lifetime non-drinker (finding) [facility] Start: 06-03-2020 History SDOH Alcohol Frequency 1 [facility] Start: 1990 Sex Assigned At Not on file [facility] Exposure to SARS-CoV -2 (event) Not sure [facility] Start: 1990 Sex Assigned At Female [facility] End: 09-03-2013 History of tobacco use Current smoker [facility] End: 09-03-2013 History of tobacco use Cigarette Smoker [facility] Start: 10-13-2023 End: 04-18-2024 Alcohol intake Current non-drinker of alcohol (finding) [facility] Start: 10-08-2023 End: 11-29-2023 Tobacco use panel [facility] How hard is it for y ou to pay for the very basics like food, housing, medical care, and heating Somewhat hard [facility] Adolescent depressio n screening assessment 14 [facility] Start: 11-11-2022 Gender identity Identifies as female gender (finding) [facility] Start: 11-11-2022 Sexual orientation Heterosexual (finding) [facility] History of tobacco use Passive smoker [facility] Goals Date Patient Goal Desired Activity /State Clinical Notes 03-01-2022 to 04-22-2024 Telephone Encounter - Amarilys Robles LSW - 04/22/2024 11:06 AM EDTTelephone Encounter - Amarilys Robles LSW - 04/22/2024 11:06 AM EDTPatient InstructionsSharif Joseph MD - 04/18/2024 11:30 AM EDT Note Date & Type Note Facility 04-22-2024 Telephone encounter Note Unable To Reach Patient Patient appears on the [facility] report for a PHQ-9 score of 23 and a NCCN score of 10. SW called Patient to follow up. Her VM was full, no message could be left. JUANITA James [facility] 04-22-2024 Miscellaneous Notes Unable To Reach Patient Patient appears on the [facility] report for a PHQ-9 score of 23 and a NCCN score of 10. SW called Patient to follow up. Her VM was full, no message could be left. JUANITA James documented in this encounter [facility] 04-18-2024 Instructions Sharif Joseph MD - 04/18/2024 11:44 AM EDT RTC in 6 months Labs same day Continue Arixtra 10mg daily Continue Foltx or folic acid supplements Continue iron tablets (try 2 days in a row then 1 day off and then 2 days again. (4 days each week) documented in this encounter [facility] 04-18-2024 History of Present illness Narrative Images from the original note were not included. NAME: Margaret Prieto [facility] NO.: [id number] DATE OF SERVICE: April 18, 2024 (Jonelle) Some elements in this clinic note that are critical to medical decision making have been carefully reviewed and included from a prior clinic note dated: December 20, 2023 (Jonelle) Referring Provider: Harley Thacker APRN-SYNTHETIC PLASTERER Additional Clinicians involved in Margaret Prieto's care: [...] resume anticoagulation with Arixtra. PLAN: RTC in 6 months Labs same day Continue Arixtra 10mg daily Continue Foltx or folic acid supplements Continue iron tablets HPI: CASE HISTORY: Reverse Chronological [...] extremity. 2013 - Pulmonary embolism Updated Visit, April 18, 2024: Margaret returns today for a follow up. She brought up a concern regarding possible MGUS because of some family members that may have had similar findings and symptoms. She endorses neuropathic symptoms and thyroid dysfunction, however I do believe her symptoms are related to another inflammatory process given her history. Will not test for an M-protein at this time. She endorses constipation with iron supplement - recommended a schedule of 2 days on/1 day off. She would like to begin Ozempic - safe from my perspective. Her brother had a stroke last week, despite being on Arixtra but he was taking testosterone shots. He lost function of the left side of his body and had slurred speech. He is recovering now with heparin. Updated Visit, December 20, 2023: Margaret returns [...] including ECHO from 11/13/2022 and 11/23/2023 from [facility] which states -Echogenic density seen wihin [...] to consider starting Humira for Hiradenitis from [facility]. A CTA of the chest from [...] PERFORMANCE STATUS: 0 PHYSICAL EXAMINATION: Vitals: BP 155/76 Pulse 75 Temp (Src) 97 (Temporal) Resp 18 Wt 365 lb 8.4 oz (165.8kg) SpO2 98% LMP 04/04/2024 Body surface area is 2.76 meters squared. Exam limited to gross visualization [...] Reaction(s): Unknown Trimethoprim Hives Amoxicillin Hives MEDICATIONS: cyanocobalamin (VITAMIN B-12) 1,000 mcg tab FOLIC ACID ORAL Take by mouth. secukinumab (COSENTYX) 150 mg/mL injection Inject subcutaneously one time only. acetaminophen-codeine (TYLENOL-COD #3) 300-30 mg per tablet Take 1 tablet by mouth. OZEMPIC 0.25 mg or 0.5 mg (2 mg/3 mL) pen Inject 0.25 mg subcutaneously one time a week. melatonin 10 mg tab Take 10 mg by mouth. isosorbide dinitrate (ISORDIL) 30 mg tablet folic acid-Vit B6-Vit B12 (FOLTX) 2.5-25-2 mg tab Take 1 tablet by mouth once daily. NURTEC ODT 75 mg disintegrating tablet gabapentin (NEURONTIN) 300 mg capsule Take 300 mg by mouth. cyclobenzaprine HCl (CYCLOBENZAPRINE ORAL) Take by mouth. atomoxetine (STRATTERA) 60 mg capsule Take 60 mg by mouth. spironolactone (ALDACTONE) 25 mg tablet isosorbide mononitrate ER (IMDUR) 30 mg 24 hr tablet hydroCHLOROthiazide (HYDRODIURIL, ESIDRIX) 25 mg tablet Take 25 mg by mouth once daily. ferrous sulfate 325 mg (65 mg iron) tablet Take 1 tablet by mouth twice daily. levothyroxine (SYNTHROID) 50 mcg tablet metoprolol tartrate, short acting, (LOPRESSOR) 25 mg tablet Take 12.5 mg by mouth. omeprazole (PRILOSEC) 20 mg capsule Take 20 mg by mouth once daily. metoclopramide HCl (REGLAN) 10 mg tablet busPIRone (BUSPAR) 15 mg tablet (Patient not taking: Reported on 04/18/2024) ARIPiprazole (ABILIFY) 5 mg tablet Take 5 mg by mouth. (Patient not taking: Reported on 04/18/2024) DULoxetine (CYMBALTA) 60 mg capsule Take 60 mg by mouth. Esomeprazole Magnesium 20 mg packet Take 40 mg by mouth. HYDROcodone-acetaminophen (NORCO) 5-325 mg per tablet Take 1 tablet by mouth. (Patient not taking: Reported on 04/18/2024) hydrOXYzine pamoate (VISTARIL) 50 mg capsule Take 50 mg by mouth. (Patient not taking: Reported on 04/18/2024) lamoTRIgine (LAMICTAL) 25 mg tablet Take 50 mg by mouth. liraglutide (VICTOZA) 0.6 mg/ 0.1 ml subcutaneous pen injector Inject 0.6 mg subcutaneously. prazosin (MINIPRESS) 2 mg cap Take 2 mg by mouth. tetracycline (SUMYCIN) 500 mg cap sucralfate (CARAFATE) 1 gram tablet Take 1 g by mouth. acetaminophen (TYLENOL) 325 mg cap Take by mouth. buPROPion XL (WELLBUTRIN XL) 150 mg 24 hr tablet Take 150 mg by mouth. (Patient not taking: Reported on 04/18/2024) cetirizine (ZYRTEC) 10 mg tablet Take 10 mg by mouth. Cholecalciferol, Vitamin D3, 10,000 unit cap doxycycline hyclate (VIBRAMYCIN) 100 mg capsule Take 100 mg by mouth. escitalopram oxalate (LEXAPRO) 5 mg tablet FLUoxetine HCl (PROZAC) 40 mg capsule Lidocaine HCl 3 % crea lisinopril (ZESTRIL, PRINIVIL) 10 mg tablet loratadine (CLARITIN) 10 mg tablet mupirocin (BACTROBAN) 2 % ointment Apply 1 application to affected area. triamcinolone acetonide (KENALOG) 0.5 % cream guaifenesin/pseudoephedrne HCl (GUAIFENESIN 600/PSE 120 ORAL) Take by mouth. LABORATORY VALUES: WBC (k/uL) Date Value 04/18/2024 17.27 (H) RBC (m/uL) Date Value 04/18/2024 5.03 Hemoglobin (g/dL) Date Value 04/18/2024 13.8 Hematocrit (%) Date Value 04/18/2024 41.3 MCV (fL) Date Value 04/18/2024 82.1 MCH (pg) Date Value 04/18/2024 27.4 MCHC (g/dL) Date Value 04/18/2024 33.4 RDW-CV (%) Date Value 04/18/2024 15.6 (H) Platelet Count (k/uL) Date Value 04/18/2024 329 MPV (fL) Date Value 04/18/2024 8.6 (L) Glucose (mg/dL) Date Value 04/18/2024 108 (H) BUN (mg/dL) Date Value 04/18/2024 18 Creatinine (mg/dL) Date Value 04/18/2024 0.86 Sodium (mmol/L) Date Value 04/18/2024 138 Potassium (mmol/L) Date Value 04/18/2024 4.5 Chloride (mmol/L) Date Value 04/18/2024 103 CO2 (mmol/L) Date Value 04/18/2024 27 Protein, Total (g/dL) Date Value 04/18/2024 7.6 Albumin (g/dL) Date Value 04/18/2024 3.8 (L) Calcium, Total (mg/dL) Date Value 04/18/2024 9.2 Alkaline Phosphatase (U/L) Date Value 04/18/2024 95 Bilirubin, Total (mg/dL) Date Value 04/18/2024 0.3 AST (U/L) Date Value 04/18/2024 12 (L) ALT (U/L) Date Value 04/18/2024 22 Cholesterol, Total (mg/dL) Date Value 12/20/2023 173 Triglyceride (mg/dL) Date Value 12/20/2023 126 DIAGNOSIS: (D68.59) Primary hypercoagulable state (HCC) (primary encounter diagnosis) Plan: COMPLETE BLOOD COUNT AND DIFFERENTIAL, COMPREHENSIVE METABOLIC PANEL, IRON AND TIBC, FERRITIN, VITAMIN B12, FOLATE, SERUM (Z15.89) MTHFR mutation Plan: COMPLETE BLOOD COUNT AND DIFFERENTIAL, COMPREHENSIVE METABOLIC PANEL, IRON AND TIBC, FERRITIN, VITAMIN B12, FOLATE, SERUM (D68.51) Factor V Leiden (HCC) (D50.9) Iron deficiency anemia, unspecified iron deficiency anemia type Plan: COMPLETE BLOOD COUNT AND DIFFERENTIAL, COMPREHENSIVE METABOLIC PANEL, IRON AND TIBC, FERRITIN, VITAMIN B12, FOLATE, SERUM PAST MEDICAL HISTORY No date: Anemia No date: Anxiety No date: Arthritis No date: Autoimmune thyroiditis No date: Bipolar affective disorder (HCC) No date: Depression No date: Factor V deficiency (HCC) No date: GERD (gastroesophageal reflux disease) 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 No date: History of DVT (deep vein thrombosis) No date: Hypercholesterolemia No date: Hypertension No date: Hypothyroidism 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) No date: YULY (obstructive sleep apnea) No date: PTSD (post-traumatic stress disorder) No date: Pulmonary embolism (HCC) No date: Tachycardia No date: Thyroid disease PAST SURGICAL HISTORY No date: APPENDECTOMY HX No date: CHOLECYSTECTOMY HX No date: COLONOSCOPY No date: PILONIDAL CYST/SINUS EXCISION No date: THYROIDECTOMY TOTAL/COMPLETE No date: TONSILLECTOMY HX Social History Tobacco Use Smoking status: Former Current packs/day: 2.00 Types: Cigarettes Passive exposure: Past Smokeless tobacco: [...] which included preparing to see the patient, [id number] patient care, completing clinical documentation, obtaining and/or reviewing separately obtained history, performing a medically appropriate examination, counseling and educating the patient/family/caregiver, ordering medications, tests, or procedures, independently interpreting results (not separately reported), communicating results to the patient/family/caregiver, and care coordination (not separately reported). Sharif Joseph MD, CPE Hematology and Oncology Services Provided at: [facility], [place], [place] Scribe Attestation: This note was scribed by Harley Toro on April 18, 2024 under the direction and supervision of Dr. Sharif Joseph. I attest that all of the information documented is correct to the best of my knowledge. Provider Attestation: I, Sharif Joseph MD, attest that all information documented by the above scribe is correct, and was supervised by me and under my direction. CC: Harley Thacker [address] [address] documented in this encounter [facility] 04-18-2024 Note HNO ID: [id number] Author: SHARIF JOSEPH MD Service: ? Author Type: Physician Type: Progress Notes Filed: 04/19/2024 14:40 Note Text: NAME: Margaret Prieto CLINIC NO.: [id number] DATE OF SERVICE: April 18, 2024 (Jonelle) Some elements in this clinic note that are critical to medical decision making have been carefully reviewed and included from a prior clinic note dated: December 20, 2023 (Jonelle) Referring Provider: Harley Thacker APRN-SYNTHETIC PLASTERER Additional Clinicians involved in Margaret Prieto's care: [...] resume anticoagulation with Arixtra. PLAN: RTC in 6 months Labs same day Continue Arixtra 10mg daily Continue Foltx or folic acid supplements Continue iron tablets HPI: CASE HISTORY: Reverse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 Contact Psychiatry Diagnoses Bipolar 1 disorder ([facility]) Thacker, Harley, [facility] [address] [place] [phone] Yashira Mi, [facility] [address] [facility] [address] [place] [address] Referral ID Status Reason Start Date Expiration Date Visits Requested Visits Authorized [id number] Pending Review Specialty Services Required 10/08/2023 10/07/2024 1 1 Specialty Diagnoses / Procedures Referred By Contac t Referred To Contact Medical Oncology / Hematology and Oncology Diagnoses History of pulmonary embolism History of DVT (deep vein thrombosis) Factor 5 Leiden mutation, heterozygous ([facility]) 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) Uyen ThackerANDREW goff-SYNTHETIC PLASTERER [address] [place] [phone] [facility] [address] [facility] [place] [address] Referral ID Status Reason Start Date Expiration Date Visits Requested Visits Authorized [id number] Pending Review Specialty Services Required 10/08/2023 10/07/2024 1 1 Specialty Diagnoses / Procedures Referred By Contac t Referred To Contact Diagnoses Preop examination MTHFR (methylene THF reductase) deficiency and homocystinuria (CMS-HCC) BMI 60.0-69.9, adult (CMS-HCC) Hypertension, unspecified type Procedures ECG 12 lead Katya Denise MD [address] [place] [address] Referral ID Status Reason Start Date Expiration Date V isits Requested Visits Authorized [id number] Pending Review 11/07/2023 11/06/2024 1 1 Specialty Diagnoses / Procedures Referred By Contac t Referred To Contact Radiology Diagnoses Abnormal echocardiogram History of DVT (deep vein thrombosis) History of pulmonary embolism Factor 5 Leiden mutation, heterozygous ([facility]) 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) Chest discomfort Shortness of breath Atrial mass Procedures CT angiogram chest Harley Thacker APRN-SYNTHETIC PLASTERER [address] [place] [phone] Referral ID Status Reason Start Date Expiration Date V isits Requested Visits Authorized [id number] Pending Review 11/14/2023 11/13/2024 1 1 Specialty Diagnoses / Procedures Referred By Contac t Referred To Contact Hematology Diagnoses History of DVT (deep vein thrombosis) History of pulmonary embolism Factor 5 Leiden mutation, heterozygous ([facility]) 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 ([facility]) Harley Thacker APRN-SYNTHETIC PLASTERER [address] [place] [phone] Shairf Joseph MD [address] [place] [address] [place] [address] Referral ID Status Reason Start Date Expiration Date Visits Requested Visits Authorized [id number] Pending Review Specialty Services Required 11/14/2023 11/13/2024 1 1 Specialty Diagnoses / Procedures Referred By Contac t Referred To Contact Diagnoses Preoperative clearance Abnormal echocardiogram History of pulmonary embolism Atrial mass Procedures Echo complete W/O contrast Harley Thacker APRN-SYNTHETIC PLASTERER [address] [place] [phone] [facility] [address] [place] [address] Phone: [phone] Referral ID Status Reason Start Date Expiration Date V isits Requested Visits Authorized [id number] Pending Review 11/14/2023 11/13/2024 1 1 Additional Source Comments Reason for Visit (unrecogniz ed section and content) Reason Comments Consult LUPUS Status Reason Specialty Diagnoses / Procedures Referred By Contact Referred To Contact Closed Rheumatology Diagnoses Lupus ([facility]) Elizabeth Terrell MD [address] [facility] [place] [address] [place] [address] Santiago Shell MD [address] [place] [phone] Reason Comments Establish Care Reason Comments New Patient Specialty Diagnoses / Procedures Referred By Contac t Referred To Contact Psychiatry Diagnoses Bipolar 1 disorder ([facility]) Harley Thacker APRN-SYNTHETIC PLASTERER [address] [place] [phone] Yashira Mi OPTICAL WORKER-SYNTHETIC PLASTERER [address] [place] [address] Referral ID Status Reason Start Date Expiration Date Visits Requested Visits Authorized [id number] Pending Review Specialty Services Required 10/08/2023 10/07/2024 1 1 Reason Onset Date Comments Med Refill 10/23/2023 Reason Comments Heartburn GERD, vomiting, diar luis, blood in stool, nausea, referred by Harley Thacker CNP Specialty Diagnoses / Procedures Referred By Toyin arrieta Referred To Contact General Surgery Diagnoses Gastroesophageal reflux disease, unspecified whether esophagitis present Nausea and vomiting, unspecified vomiting type Harley Thacker APRN-DAVID [address] [place] [address], [place] [address] [facility] Grillis Stuart [address] [place] [address] Referral ID Status Reason Start Date Expiration Date V isits Requested Visits Authorized [id number] Closed Specialty Services Required 10/08/2023 10/07/2024 1 1 Reason Comments Pre-op Exam Surgery scheduled fo r November 19, 2023. Reason Comments PTSD Reason Comments Anxiety Reason Comments Follow-up EST PT F/U EARLY SWE LLING, COUGH SCHED VIA MY CHART L/S MS Reason Comments wellness Reason Comments letter of medical clearance Reason Comments Primary hypercoagulable state INFORMATION SOURCE (unrecogn ized section and content) DATE CREATED AUTHOR 08/02/2020 [facility] DATE CREATED AUTHOR AUTHOR'S ORGANIZ ATION 10/30/2021 [facility] DATE CREATED AUTHOR AUTHOR'S ORGANIZ ATION 12/07/2022 [facility] DATE CREATED AUTHOR AUTHOR'S ORGANIZ ATION 11/11/2023 [facility] DATE CREATED AUTHOR AUTHOR'S ORGANIZ ATION 12/25/2023 [facility] DATE CREATED AUTHOR AUTHOR'S ORGANIZ ATION 03/29/2024 [facility] DATE CREATED AUTHOR AUTHOR'S ORGANIZ ATION 04/10/2024 [facility] EPIC DATE CREATED AUTHOR AUTHOR'S ORGANIZ ATION 04/12/2024 [facility] DATE CREATED AUTHOR AUTHOR'S ORGANIZ ATION 04/12/2024 [facility] DATE CREATED AUTHOR AUTHOR'S ORGANIZ ATION 04/23/2024 [facility] Care Teams (unrecognized sec tion and content) [...] Flanagan PA-C Primary Care Provider Activ e Sweep Molder Relationship Specialty Start Date End Date Harley Thacker APRNSYNTHETIC PLASTERER [address] [place] [phone] PCP - General Nurse Practitioner 10/08/23 Nikolas Parrish CNP Nurse Practitioner Family Medicine 11/24/22 Sweep Molder Relationship Specialty Start Date End Date Harley Thacker APRN-CNP [address] [place] [phone] PCP - General Nurse Practitioner 10/08/23 Nikolas Parrish CNP Nurse Practitioner Family Medicine 11/24/22 Sweep Molder Relationship Specialty Start Date End Date Harley Thacker APRN-CNP [address] [place] [phone] PCP - General Nurse Practitioner 10/08/23 Nikolaskurt Parrish SYNTHETIC PLASTERER Nurse Practitioner Family Medicine 11/24/22 Sweep Molder Relationship Specialty Start Date End Date ThackerUyenHarley, [facility] [address] [place] [address], [place] [phone] PCP - General Nurse Practitioner 10/08/23 Nikolaskurt Acuna SYNTHETIC PLASTERER Nurse Practitioner Family Medicine 11/24/22 Sweep Molder Relationship Specialty Start Date End Date ThackerUyenHarley [facility] [address] [place] [address], [place] [phone] PCP - General Nurse Practitioner 10/08/23 Nikolaskurt Parrish SYNTHETIC PLASTERER Nurse Practitioner Family Medicine 11/24/22 Sweep Molder Relationship Specialty Start Date End Date Harley Thacker [facility] [address] [place] [address], [place] [phone] PCP - General Nurse Practitioner 10/08/23 [facility] Practition[facility] 11/24/22 Sweep Molder Relationship Specialty Start Date End Date Uyen Thackerndra OPTICAL WORKER-[facility] [address] [place] [address], [place] [phone] PCP - General Nurse Practitioner 10/08/23 [facility] Nurse Practitioner [facility] 11/24/22 Sweep Molder Relationship Specialty Start Date End Date Harley Thacker OPTICAL WORKER-[facility] [address] [place] [phone] PCP - General Nurse Practitioner 10/08/23 Nikolaskurt Acunao SYNTHETIC PLASTERER Nurse Practitioner Family Medicine 11/24/22 Sweep Molder Relationship Specialty Start Date End Date Harley [facility]acker [facility] [address] [place] [address] [place] [phone] PCP - General Nurse Practitioner 10/08/23 Nikolas Parrish SYNTHETIC PLASTERER Nurse Practitioner Family Medicine 11/24/22 Sweep Molder Relationship Specialty Start Date End Date Thacker HarleyRICKYN-SYNTHETIC PLASTERER [address] [place] [address], [place] [phone] PCP - General Nurse Practitioner 10/08/23 Nikolas Parrish SYNTHETIC PLASTERER Nurse Practitioner Family Medicine 11/24/22 Sweep Molder Relationship Specialty Start Date End Date ThackerHarley hinton [address] [address] PCP - General Family Medicine 11/16/23 Sweep Molder Relationship Specialty Start Date End Date ThackerHarley APRN-[facility] [address] [place] [phone] PCP - General Nurse Practitioner 10/08/23 Nikolas Parrish SYNTHETIC PLASTERER Nurse Practitioner Family Medicine 11/24/22 Sweep Molder Relationship Specialty Start Date End Date Harley Thacker [address] [address] PCP - General Family Medicine 11/16/23 Sweep Molder Relationship Specialty Start Date End Date Thacker Harley, OPTICAL WORKER-SYNTHETIC PLASTERER [address] [place] [phone] PCP - General Nurse Practitioner 10/08/23 Nikolas Parrish SYNTHETIC PLASTERER Nurse Practitioner Family Medicine 11/24/22 Sweep Molder Relationship Specialty Start Date End Date Harley Thacker APRN-SYNTHETIC PLASTERER [address] [place] [phone] PCP - General Nurse Practitioner 10/08/23 Nikolas Parrish SYNTHETIC PLASTERER Nurse Practitioner Family Medicine 11/24/22 Sweep Molder Relationship Specialty Start Date End Date Uyen ThackerRICKY goffN-DAVID [address] [place] [phone] PCP - General Nurse Practitioner 10/08/23 Nikolas Parrish SYNTHETIC PLASTERER Nurse Practitioner Family Medicine 11/24/22 Sweep Molder Relationship Specialty Start Date End Date Harley Thacker Danita BRITO [address] [phone] PCP - General Family Medicine 11/16/23 Sweep Molder Relationship Specialty Start Date End Date Harley Thacker CNP PCP - General Family Medicine 11/16/23 Sweep Molder Relationship Specialty Start Date End Date Harley Thacker CNP PCP - General Family Medicine 11/16/23 Sweep Molder Relationship Specialty Start Date End Date Harley Thacker CNP PCP - General Family Medicine 11/16/23 Team Status: Inactive Member Role Status Dates Dannie Dickinson DO Attending Provider Active Start : April 08, 2024 End: April 08, 2024 Sweep Molder Relationship Specialty Start Date End Date Harley Thacker CNP PCP - General Family Medicine 11/16/23 Sweep Molder Relationship Specialty Start Date End Date Harley Thacker CNP PCP - General Family Medicine 11/16/23 Sweep Molder Relationship Specialty Start Date End Date Harley [...] any alcohol or drug abuse patient.[facility] Hospital[facility] the event this information is protected by the Federal Confidentiality of Alcohol and Drug Abuse Patient Records regulations: The Federal rules restrict any use of the information to criminally investigate or prosecute any alcohol or drug abuse patient.[facility] HospitalIn the event this information is protected by the Federal Confidentiality of Alcohol and Drug Abuse Patient Records regulations: The Federal rules restrict any use of the information to criminally investigate or prosecute any alcohol or drug abuse patient.[facility] Hospital[facility] the event this information is protected by the Federal Confidentiality of Alcohol and Drug Abuse Patient Records regulations: The Federal rules restrict any use of the information to criminally investigate or prosecute any alcohol or drug abuse patient.[facility] HospitalIn the event this information is protected by the Federal Confidentiality of Alcohol and Drug Abuse Patient Records regulations: The Federal rules restrict any use of the information to criminally investigate or prosecute any alcohol or drug abuse patient.[facility] HospitalIn the event this information is protected by the Federal Confidentiality of Alcohol and Drug Abuse Patient Records regulations: The Federal rules restrict any use of the information to criminally investigate or prosecute any alcohol or drug abuse patient.[facility] HospitalIn the event this information is protected by the Federal Confidentiality of Alcohol and Drug Abuse Patient Records regulations: The Federal rules restrict any use of the information to criminally investigate or prosecute any alcohol or drug abuse patient.[facility] HospitalIn the event this information is protected by the Federal Confidentiality of Alcohol and Drug Abuse Patient Records regulations: The Federal rules restrict any use of the information to criminally investigate or prosecute any alcohol or drug abuse patient.[facility] HospitalIn the event this information is protected by the Federal Confidentiality of Alcohol and Drug Abuse Patient Records regulations: The Federal rules restrict any use of the information to criminally investigate or prosecute any alcohol or drug abuse patient.[facility] HospitalIn the event this information is protected by the Federal Confidentiality of Alcohol and Drug Abuse Patient Records regulations: The Federal rules restrict any use of the information to criminally investigate or prosecute any alcohol or drug abuse patient.[facility] FOR RECORDS PERTAINING TO PATIENTS WHO [...] BE BASED ON THE PRIMARY CLINICAL RECORDS. [facility] [employer] [facility]. provides no warranty or guarantee of the accuracy or completeness of information in this document.
== END 2024-04-08 12:21 | disposition home or self-care (01) ==
LOC: LAB 12:20
PROVIDERS: PCP Nurse Practitioner Primary Care; Visit Provider Obstetrics & Gynecology
DX: N92.0 Excessive and frequent menstruation with regular cycle (principal)
CPT/HCPCS: 88305; 88342

== ENCOUNTER 2024-04-11 12:03 | Outpatient (OUT) | payer MEDICARE, MEDICAID, SELFPAY ==
--- OUTSIDE RECORDS SUMMARY | 2024-04-11 12:21 | XMS_ITS | CCD ---
Author Organization [facility] Care Team Providers Care Accounts Payable Payroll Coordinator Name Role Phone Mai Elizabeth Primary Care Provider SANTIAGO SHELL Admitting Unavailable SHEMARTrev ELIZABETH Referring [...] Primary Care Unavailable Carlson, John Admitting Unavailable [facility] Primary Care Unava ilable ANTWON ., DR KACEY Gray Admitting Unavailable ANTWON ., DR KACEY Gray Consulting Unavailable ANTWON ., DR KACEY Gray Attending Unavailable KAPOOR ., DR KACEY Gray Admitting Unavailable CERVANTES ., ACE Consulting Unavailable [facility] Primary [facility] Unavailable KAPOOR ., DR KACEY Gray Attending Unavailable [facility] Unavailable CERVANTES ., ACE Consulting Unavailable KAPOOR ., DR KACEY Gray Admitting Unavailable KAPOOR ., DR KACEY Gray Attending Unavailable SHAMMO, [place] Primary Care Unavailable LAKSHMIPATHY ., NARENDMICHAELATH Attending Norma vailable LAKSHMIPATHY ., NETTE Admitting Norma vailable KAPOOR ., DR KACEY Gray Admitting Unavailable SHAMMO, [place] Primary Care Unavailable CERVANTES ., ACE Consulting Unavailable KAPOOR ., DR KACEY Gray Attending Unavailable SHAMMO, NIKOLAS Admitting Unavailable SHAMMO, [place] Primary Care Unavailable SHAMMO, NIKOLAS Attending Unavailable [facility] Care Unava ilable CERVANTES ., ACE Attending Unavailable CERVANTES ., ACE Admitting Unavailable WEST, DR KATYA Rabago Consulting Unavailable CERVANTES ., ACE Consulting Unavailable SHAMMO, NIKOLAS Admitting Unavailable SHAMMO, [place] Primary Care Unavailable SHAMMO, NIKOLAS Consulting Unavailable SHAMMO, NIKOLAS Attending Unavailable SHAMMO, [place] Primary Care Unavailable [place], [place] Consulting Unavailable [place] Attending Unavailable [place], [place] Admitting Unavailable SHAMMO, NIKOLAS Primary Care Unavailable TRAN, DR NATHAN Linda Consulting Unavailabl e TRAN, DR NATHAN Linda Attending Unavailabl e TRAN, DR NATHAN Linda Admitting Unavailabl e SAEEBATILIO, DR SANIA Khanna Consulting Unavailable MICHELE ., DELONTE Attending Unavailable [facility] Care Unava ilable MICHELE ., DELONTE Admitting Unavailable RANI ., CHINYERE MONSALVE Consulting Unavailabl e DEREK MIRELES Consulting Unavailable KAPOOR ., DR KACEY Gray Attending Unavailable [facility] Care Unava ilable CERVANTES ., ACE Consulting Unavailable KAPOOR ., DR KACEY Gray Admitting Unavailable Thacker [facility] Primary Care Provider CORINE CATHERINE Referring Unavailable [facility] Primary Care Unavailable [facility] Primary Care Provider [phone] THACKER, HARLEY Referring Unavailable [facility] Primary Care Unavailable KATYA DENISE Attending Unavailable KATYA DENISE Referring Unavailable [facility] Primary Care Unavailable KATYA DENISE Referring Unavailable [...] Unavailable THACKER, HARLEY Primary Care Unavailable MAYRA ARYA Attending Unavailable THACKER, HARLEY Primary Care Unavailable THACKER, HARLEY Referring Unavailable THACKER, HARLEY Primary Care Unavailable MATTHEW PITTMAN Attending Unavailable FAHADEB MOHAMMABing Referring Unavailable THACKER, HARLEY Primary Care Unavailable Thacker DIETITIAN CHIEF, Harley Kendell Primary Care Provid er CORINE CATHERINE Attending Unavailable THACKER, HARLEY Referring Unavailable THACKER, HARLEY Primary Care Unavailable CLARIBEL OLSON Attending Unavailable THACKER, HARLEY Referring Unavailable THACKER, HARLEY Primary Care Unavailable THACKER, HARLEY Attending Unavailable THACKER, HARLEY Referring Unavailable THACKER, HARLEY Primary Care Unavailable CLARIBEL OLSON Attending Unavailable THACKER, HARLEY Referring Unavailable THACKER, HARLEY Primary Care Unavailable YASHIRA MI Attending Unavailable THACKER, HARLEY Referring Unavailable THACKER, HARLEY Primary Care Unavailable THACKER, HARLEY Attending Unavailable THACKER, HARLEY Referring Unavailable THACKER, HARLEY Primary Care Unavailable THACKER, HARLEY Attending Unavailable NIKOLAS KOVACS Referring Unavailable THACKER, HARLEY Primary Care Unavailable [...] Primary Care Unavailable THACKER, HARLEY Attending Unavailable THAKCER, HARLEY Referring Unavailable THACKER, HARLEY Primary Care Unavailable YASHIRA MI Attending Unavailable THACKER, HARLEY Referring Unavailable THACKER, HARLEY Primary Care Unavailable WHITNEY, CLARIBEL Attending Unavailable THACKER, HARLEY Referring Unavailable THACKER, HARLEY Primary Care Unavailable Giedraitis , Andrius Vytautkurt Attending Unavailable Giedraitis , Andrius Vytautas Attending Unavailable Giedraitis MD, Andrius Vytautas Attending Unavailable Giedraitis , Andrius Vytautas Attending Unavailable ABHYANKAR, SHARIF Attending Unavailable ABHYANKAR, SHARIF Referring Unavailable THACKER, HARLEY KENDELL Primary Care Unavail able THACKER, HARLEY KENDELL Primary Care Unavail able STEPAHNI LUCAS Referring Unavai lable THACKER, HARLEY KENDELL Primary Care Unavail able THACKER, HARLEY KENDELL Primary Care Unavail able THACKER, HARLEY KENDELL Primary Care Unavail able THACKER, HARLEY KENDELL Referring Unavail able ABHYANKAR, SHARIF Attending Unavailable DO Dannie Dickinson Attending Provider DANNIE DICKINSON Attending Unavailable DANNIE DICKINSON Attending Unavailable DANNIE DICKINSON Attending Unavailable Allergies Allergy Classification Reported Allergen(s) Allergy Type Date of Onset Reaction(s) Facility (12 sources) Allopurinol; Translations: [ALLOPURINOL] Drug Allergy 05-12-20 20 [facility] (20 sources) Amoxicillin; Translations: [AMOXICILLIN] Drug Allergy 04-28-20 13 [facility] (20 sources) Cefaclor; Translations: [CEFACLOR] Drug Allergy 04-28-20 13 Hives, Other (See Comments), Rash, Unknown [facility] (20 sources) Ciprofloxacin; Translations: [CIPROFLOXACIN] Drug Allergy 09-03-19 [facility] (20 sources) Estrogens; Translations: [ESTROGENS] Drug Allergy 01-29-20 15 Other (See Comments), Unknown [facility] (20 sources) Penicillins; Translations: [PENICILLINS] Propensity to adverse reactions to drug 02-15-20 13 Hives, Rash [facility] (20 sources) Sulfonamides (Antibiotic); Translations: [SULFA (SULFONAMIDE ANTIBIOTICS)] Propensity to adverse reactions to drug 09-03-19 [facility] (6 sources) Sulfamethoxazole Drug Allergy 02-01-20 [place] (14 sources) Trimethoprim; Translations: [TRIMETHOPRIM] Drug Allergy 02-01-20 [place] (6 sources) DPT Allergy to substance 02-01-20 Redness of Skin [facility] (6 sources) surgical kory Allergy to substance 02-01-20 [place] (6 sources) hormones Propensity to adverse reactions 02-01-20 will cause blood clots [facility] (2 sources) Amoxicillin Drug Allergy [facility] (2 sources) Cefaclor Drug Allergy [facility] (2 sources) Ciprofloxacin Drug Allergy 09-03-19 [facility] (2 sources) Sulfonamides (Antibiotic) Drug allergy (disorder) 09-03-19 [facility] (20 sources) Cephalosporins (Antibiotic); Translations: [CEPHALOSPORINS] Propensity to adverse reactions to drug 06-13-20 [facility] (20 sources) Sulfamethoxazole / Trimethoprim; Translations: [SULFAMETHOXAZOLE-T RIMETHOPRIM] Drug Allergy 06-16-20 16 Rash, Unknown [facility] (20 sources) Diphtheria,Pertussi s,Tetanus; Translations: [DIPHTHERIA,PERTUSS IS,TETANUS] Propensity to adverse reactions to drug 04-28-20 13 [facility] (20 sources) Other; Translations: [OTHER] Propensity to adverse reactions 02-29-20 16 Rash [facility] (20 sources) Pertussis Vaccines; Translations: [PERTUSSIS VACCINES] Propensity to adverse reactions to drug 04-24-20 18 [facility] ([facility] Tetanus Vaccines And Toxoid; Translations: [TETANUS VACCINES AND TOXOID] Propensity to adverse reactions to drug 02-29-20 16 [facility] (8 sources) Tetanus And Diphtheria Toxoids; Translations: [TETANUS AND DIPHTHERIA TOXOIDS] Drug Allergy 06-25-20 23 Unknown [facility] Medications Current Medications Medication Drug Class(es) Dates Sig (Normalized) Sig (Original) acetaminophen 325 mg oral capsule (7 sources) acetaminophen (TYLENOL) 325 mg cap Take [...] 28 March 13, 2022 April 10, 2022 1:38pm Start: 01-31-2022 take 1 tablet by christina th twice daily Hydrocodone-Acetaminophen Active 1 TAB P O Twice daily January 31, 2022 12:00am Start: 07-20-2020 take 1 tablet by christina [...] Active 60 MG PO Every morning January 31, 2022 12:00am Comment on above: Take 60 mg by mouth. baclofen 10 mg oral tablet (6 sources) gamma-Aminobutyric Acid-ergic Agonist Start: take 10 mg by mouth once daily at bedtime Baclofen Active 10 MG PO Daily at bedtime January 31, 2022 12:00am 24 hr buPROPion hydrochloride 150 mg extended release oral tablet (7 sources) Aminoketone Start: 017 take 1 tablet by mouth every twenty-four hours buPROPion XL (WELLBUTRIN XL) 150 mg 24 hr tablet Take 150 mg by mouth. 0 05/03/2017 Active Comment on above: Take 150 mg by mouth . busPIRone hydrochloride 15 mg oral tablet (6 sources) Start: 023 busPIRone (BUSPAR) 15 mg tablet cetirizine hydrochloride 10 mg oral tablet (7 sources) Histamine-1 Receptor Antagonist Start: 016 cetirizine (ZYRTEC) 10 mg tablet Take 10 mg by mouth. 0 01/21/2016 Active Comment on above: Take 10 mg by mouth. cholecalciferol 0.025 mg oral tablet (14 sources) Vitamin D Start: take 1 tablet by mouth once daily Cholecalciferol (Vitamin D3) (Vitamin D3) 25 mcg (1,000 unit) Tablet Active 25 MCG PO Daily January 31, 2022 12:00am Start: 08-02-2020 End: 08-02-2021 take 1 capsule by mouth once daily cholecalciferol, vitamin D3, 25 mcg (1,000 unit) capsule Take 1 (one) capsule (1,000 Units total) by mouth daily . 30 capsule 11 08/02/2020 08/02/2021 Active Start: 10-19-2017 Cholecalcifero l, Vitamin D3, 10,000 unit cap Start: 10-19-2017 take [address] [facility] every week Cholecalciferol, Vitamin D3, 10,000 unit cap 10,000 unit oral capsule once weekly 0 10/19/2017 Active Comment on above: 10,000 unit oral cap kyaw once weekly cyclobenzaprine (6 sources) Muscle Relaxant Start: 023 cyclobenzaprine HCl (CYCLOBENZAPRINE ORAL) Take by mouth. 0 02/01/2023 Active Comment on above: Take by mouth. doxycycline hyclate 100 mg oral capsule (7 sources) Tetracycline-class Drug Start: doxycycline hyclate (VIBRAMYCIN) 100 mg capsule Take 100 mg by mouth. 0 04/24/2018 Active Comment on above: Take 100 mg by mouth . DULoxetine 60 mg delayed release oral capsule (20 sources) Serotonin and Norepinephrine Reuptake Inhibitor Start: End: DULoxetine (CYMBALTA) 60 mg capsule Take 60 mg by mouth. 0 05/29/2022 Active Comment on above: Take 60 mg by mouth. escitalopram 5 mg oral tablet (7 sources) Serotonin Reuptake Inhibitor Start: escitalopram oxalate (LEXAPRO) 5 mg tablet esomeprazole 20 mg granules for oral suspension (16 sources) Proton Pump Inhibitor Start: Esomeprazole Magnesium 20 mg packet Take 40 mg by mouth. 0 11/14/2023 Active Comment on above: Take 40 mg by mouth. ferrous sulfate 325 mg oral tablet (20 sources) Start: End: take 1 tablet by mouth once daily Ferrous Sulfate (Iron) 325 mg (65 mg iron) Tablet Active 325 MG PO Daily January 31, 2022 12:00am Start: 10-29-2019 take 1 tablet by christina twice daily ferrous sulfate 325 mg (65 mg iron) tablet Take 1 tablet by mouth twice daily. 60 tablet 5 10/29/2019 Active Comment on above: Take 1 tablet by christina twice daily. FLUoxetine 40 mg oral capsule (7 sources) Serotonin Reuptake Inhibitor Start: 06-16-2016 FLUoxetine HCl (PROZAC) 40 mg capsule Comment on above: TAKE ONE CAPSULE BY MOUTH ONCE DAILY folic acid 2.5 mg / vitamin b12 2 mg / vitamin b6 25 mg oral tablet (8 sources) Vitamin B12 Start: 12-20-2023 End: 12-14-2024 take 1 tablet by mouth once daily folic acid-Vit B6-Vit B12 (FOLTX) 2.5-25-2 mg tab Indications: MTHFR mutation Take 1 tablet by mouth once daily. 90 tablet 3 12/20/2023 12/14/2024 Active Start: 10-28-2020 End: 12-20-2023 [id number] calcium-B6 (FOLTX) 2-1.13-25 mg tab Indications: Factor V Leiden (HCC) Take 1 tablet by mouth once daily. 90 tablet 3 10/28/2020 12/20/2023 Discontinued Start: 10-28-2020 Q93-wyfzcnjhpa te calcium-B6 (FOLTX) 2-1.13-25 mg tab Indications: Factor V Leiden (HCC) Take 1 tablet by mouth once daily. 90 tablet 3 10/28/2020 Active Comment on above: Take 1 tablet by christina th once daily. 0.8 ml fondaparinux sodium 12.5 mg/ml prefilled syringe (5 sources) Factor Xa Inhibitor Start: 2023 End: [...] 24 hours. gabapentin 300 mg oral capsule (13 sources) Anti-epileptic Agent Start: 2021 take 600 mg by mouth once daily at bedtime Gabapentin Active 600 MG PO Daily at bedtime January 31, 2022 12:00am End: 10-08-2023 gabapentin (NEURONTIN) 300 m g capsule Take 300 mg by mouth. 0 Active Comment on above: Take 300 mg by mouth . guaifenesin/pseudoephedrne HCl (GUAIFENESIN 600/PSE 120 ORAL) (7 sources) guaifenesin/pseu doephedrn e HCl (GUAIFENESIN 600/PSE 120 ORAL) Take by mouth. 0 Active Comment on above: Take by mouth. hydroCHLOROthiazide 25 mg oral tablet (20 sources) Thiazide Diuretic Start: End: 024 take 1 tablet by mouth once daily [...] 25 MG PO Four times daily January 31, 2022 12:00am Comment on above: Take 50 mg by mouth. 24 hr isosorbide mononitrate 30 mg extended release oral tablet (15 sources) Nitrate Vasodilator Start: 09-01-2020 isosorbide mononitrate ER (IMDUR) 30 mg 24 hr tablet Start: 09-01-2020 take 15 mg by mouth once daily in the morning Isosorbide Mononitrate Active 15 MG PO Every morning January 31, 2022 12:00am Start: 06-01-2020 take 1 tablet by christina [...] mouth. levothyroxine sodium 0.05 mg oral tablet (7 sources) l-Thyroxine Start: 08-14-2016 levothyroxine (SYNTHROID) 50 mcg tablet Comment on above: TAKE ONE TABLET BY M OUTH ONCE DAILY lidocaine hydrochloride 30 mg/ml topical cream (8 sources) Antiarrhythmic, Amide Local Anesthetic Start: 06-21-2018 Lidocaine HCl 3 % crea Start: 06-21-2018 lidocaine HCL 3 % Crea APPLY TO THE AFFECTED AREA(S) BY TOPICAL ROUTE 2 TIMES PER DAY . 0 06/21/2018 Active lisinopril 10 mg oral tablet (7 sources) Angiotensin Converting Enzyme Inhibitor Start: 06-13-2018 lisinopril (ZESTRIL, PRINIVIL) 10 mg tablet loratadine 10 mg oral tablet (7 sources) Start: 04-25-2018 loratadine (CLARITIN) 10 mg tablet melatonin 10 mg oral tablet (5 sources) take 1 tablet by mouth in the morning melatonin 10 mg tablet Take 10 mg by mouth in the morning. 0 Active metoclopramide 10 mg oral tablet (5 sources) Dopamine-2 Receptor Antagonist Start: 12-10-2023 metoclopramide HCl (REGLAN) 10 mg tablet mupirocin 0.02 mg/mg topical ointment (7 sources) RNA Synthetase Inhibitor Antibacterial Start: 03-14-2017 [...] Active 20 MG PO Every morning January 31, 2022 12:00am Comment on above: Take 20 mg by [...] mouth. rimegepant 75 mg disintegrating oral tablet (13 sources) Start: 04-04-20 End: 11-07-19 24 NURTEC ODT 75 mg disintegrating tablet rivaroxaban 20 mg oral tablet (6 sources) Factor Xa Inhibitor Start: 02-01-20 take 1 tablet by mouth once daily Rivaroxaban (Xarelto) 20 mg tablet Active 20 MG PO Daily January 31, 2022 12:00am spironolactone 25 mg oral tablet (20 sources) Aldosterone Antagonist Start: 05-12-20 End: 11-28-19 24 spironolactone (ALDACTONE) 25 mg tablet sucralfate 1000 mg oral tablet (14 sources) Aluminum Complex Start: 02-01-20 take 1 g by mouth twice daily Sucralfate Active 1 GM PO Twice daily January 31, 2022 12:00am take 1 tablet by mouth four time s daily sucralfate (CARAFATE) 1 gram tablet Take 1 g by mouth 4 (four) times a day . 0 Active Comment on above: Take 1 g by mouth. tetracycline hydrochloride 500 mg oral capsule (7 sources) Tetracycline-class Antimicrobial Start: 09-29-2020 tetracycline (SUMYCIN) 500 mg cap Comment on above: TAKE 1 CAPSULE BY [facility] EVERY 12 HOURS ON AN EMPTY STOMACH triamcinolone acetonide 5 mg/ml topical cream (7 sources) Corticosteroid Start: 04-03-2017 triamcinolone acetonide (KENALOG) [...] Active 25 MG PO Twice daily January 31, 2022 12:00am Start: 07-31-2016 metoprolol tar trate, short acting, [...] [Type 2 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 complications] Onset: 01-13-2022 Chronic Esophageal disorders (20 sources) Gastro-esophageal [...] 08-02-2020 Chronic Other aftercare (1 source) Other group home (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 therapy; Translations: [OTH 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 CURRENT DRUG THERAPY] Onset: Episodic Other aftercare (1 source) 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; Translations: [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 CURRNT USE ANTICOAGULANTS] Onset: Episodic Other and [...] 021 01-13-2022 Chronic Other nervous system disorders (6 sources) Acute postoperative pain; Translations: [Other acute [...] sources) Hidradenitis suppurativa; Translations: [Hidradenitis suppurativa] Onset: 08-02-2020 Episodic Residual codes; unclassified (20 sources) Obstructive sleep apnea syndrome; Translations: [Obstructive sleep apnea (adult) (pediatric)] Onset: 08-02-2020 Chronic Residual codes; unclassified (1 source) [...] 022 Unclassified (1 source) Establish Care Onset: Past or Other Problems Problem Classification Problem [...] Test Name Value Interpretation Reference Range Facility [facility] 04-02-2024 CNPN Telephone (HEMASA) YADIMARGARET ([id number]) 1990 F Date Time Provider Department 04/02/24 BELLO SUE KELECHI During your visit today, we recorded the following information about you: Bello Sue RN 04/02/2024 8:08 AM Signed So i was talking to someone who has my disorder hs and she told me that there are several people who have this disease and they test positive for mgus should i be tested she was tested through her oncologist. Also i recently had labs done at [facility] in [place] my thyroid is really off they did an ultrasound of my thyroid as well that hasnt come back yet. Top 2 are [facility] the rest is [facility] [place]: Please obtain labs ([facility]) and [facility]) for Leonard to review. [facility] 04/02/2024 10:38 AM Signed Records are in. [facility] records pulled through Care Everywhere. Bello Sue RN 04/02/2024 10:43 AM Addendum Leonard: Please review and advise (Pt lab/OV 04/18/24) Bello Sue RN Allergies As of Date: 04/02/2024 Noted Allergy Reaction CIPROFLOXACIN 09/03/2019 4 - Hives Comments: Other Reaction(s): Unknown SULFA (SULFONAMIDE ANTIBIOTICS) 09/03/2019 4 - Hives Comments: Other Reaction(s): Unknown TETANUS AND DIPHTHERIA TOXOIDS 06/25/2023 16 - Unknown BACTRIM (SULFAMETHOXAZOLE-TRI METH*07/01/2018 16 - Unknown CECLOR (CEFACLOR) 07/01/2018 16 - Unknown ESTROGENS 07/01/2018 16 - Unknown PENICILLINS 07/01/2018 2 - Rash PERTUSSIS VACCINES 04/24/2018 16 - Unknown Comments: Other Reaction(s): Unknown TRIMETHOPRIM 01/31/2022 4 - Hives AMOXICILLIN 04/28/2013 4 - Hives Date Reviewed: 12/20/2023 Reviewed by: Mary Carmen Salvador MA - Fully Assessed Prescriptions as of 04/07/2024 - metoclopramide HCl (REGLAN) 10 mg tablet - fondaparinux (ARIXTRA) 10 mg/0.8 mL syrg Inject 0.8 mL subcutaneously every 24 hours. - folic acid-Vit B6-Vit B12 (FOLTX) 2.5-25-2 mg tab Take 1 tablet by mouth once daily. - NURTEC ODT 75 mg disintegrating tablet - busPIRone (BUSPAR) 15 mg tablet - gabapentin (NEURONTIN) 300 mg capsule Take 300 mg by mouth. - cyclobenzaprine HCl (CYCLOBENZAPRINE ORAL) Take by mouth. - ARIPiprazole (ABILIFY) 5 mg tablet Take 5 mg by mouth. - atomoxetine (STRATTERA) 60 mg capsule Take 60 mg by mouth. - DULoxetine (CYMBALTA) 60 mg capsule Take 60 mg by mouth. - Esomeprazole Magnesium 20 mg packet Take 40 mg by mouth. - HYDROcodone-acetamino phen (NORCO) 5-325 mg per tablet Take 1 tablet by mouth. - hydrOXYzine pamoate (VISTARIL) 50 mg capsule Take 50 mg by mouth. - lamoTRIgine (LAMICTAL) 25 mg tablet Take 50 mg by mouth. - liraglutide (VICTOZA) 0.6 mg/ 0.1 ml subcutaneous pen injector Inject 0.6 mg subcutaneously. - prazosin (MINIPRESS) 2 mg cap Take 2 mg by mouth. - tetracycline (SUMYCIN) 500 mg cap - sucralfate (CARAFATE) 1 gram tablet Take 1 g by mouth. - spironolactone (ALDACTONE) 25 mg tablet - isosorbide mononitrate ER (IMDUR) 30 mg 24 hr tablet - hydroCHLOROthiazide (HYDRODIURIL, ESIDRIX) 25 mg tablet Take 25 mg by mouth once daily. - acetaminophen (TYLENOL) 325 mg cap Take by mouth. - ferrous sulfate 325 mg (65 mg iron) tablet Take 1 tablet by mouth twice daily. - buPROPion XL (WELLBUTRIN XL) 150 mg 24 hr tablet Take 150 mg by mouth. - cetirizine (ZYRTEC) 10 mg tablet Take 10 mg by mouth. - Cholecalciferol, Vitamin D3, 10,000 unit cap - doxycycline hyclate (VIBRAMYCIN) 100 mg capsule Take 100 mg by mouth. - escitalopram oxalate (LEXAPRO) 5 mg tablet - FLUoxetine HCl (PROZAC) 40 mg capsule - levothyroxine (SYNTHROID) 50 mcg tablet - Lidocaine HCl 3 % crea - lisinopril (ZESTRIL, PRINIVIL) 10 mg tablet - loratadine (CLARITIN) 10 mg tablet - metoprolol tartrate, short acting, (LOPRESSOR) 25 mg tablet Take 12.5 mg by mouth. - mupirocin (BACTROBAN) 2 % ointment Apply 1 application to affected area. - triamcinolone acetonide (KENALOG) 0.5 % cream - guaifenesin/pseudoeph edrne HCl (GUAIFENESIN 600/PSE 120 ORAL) Take by mouth. - omeprazole (PRILOSEC) 20 mg capsule Take 20 mg by mouth once daily. 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 tuberculosis tuberculin stim IFN-g Ql (Bld) Negative Normal [facility] Comment on above: Order Comment: Nima macias Type: BLOOD SPECIMEN [facility] Address: [address] [place] [address], [address] [place] [id number] Performed By: #### I NFTBP #### [facility] CLIA [id number] [address] [place] [address] [place] MITOGEN MINUS NIL >9.99 Normal >=0.50 [facility] Comment on above: Order Comment: Nima macias Type: BLOOD SPECIMEN [facility] Address: [address] [place] [address], [address], [place] [address] Performed By: #### I NFTBP #### [facility] CLIA [id number] [address] [place] [address] [place] TB GAMMA INTERPRETATION Infection with M. tuberculosis complex is unlikely. If latent tuberculosis infection is highly suspected, a negative result does not rule out the infection. Specimens from immunocompromised patients and those <5 years of age may show false negative results. In case of a contact investigation, please repeat 8-12 weeks after a known exposure. Normal [facility] Comment on above: Order Comment: Speci men Type: BLOOD SPECIMEN Ordering Facility: [facility] [employer] [facility] Address: [address] [place] [address], [address] [place], [place] [id number] Performed By: #### I NFTBP #### [facility] CLIA [id number] [address] [place] [address] OF [place] TB NIL 0.01 IU/mL Normal <=8.00 [facility] Comment on above: Order Comment: Speci men Type: BLOOD SPECIMEN Ordering Facility: [facility] [employer] [facility] Address: [address] [place] [address], [address] [place] [id number] Performed By: #### I NFTBP #### [facility] CLIA [id number] [address] [place] [address] [place] TB1 AG MINUS NIL 0.00 IU/mL Normal <0.35 [facility] Comment on above: Order Comment: Speci men Type: BLOOD SPECIMEN Ordering Facility: [facility] [employer] [facility] Address: [address] [place] [address], [address], [place] [address] Performed By: #### I NFTBP #### [facility] CLIA [id number] [address] [place] [address] [place] TB2 AG MINUS NIL 0.00 IU/mL Normal <0.35 [facility] Comment on above: Order Comment: Speci men Type: BLOOD SPECIMEN Ordering Facility: [facility] Address: [address] [facility], [address], [place] [id number] Performed By: #### I NFTBP #### [facility] CLIA [id number] [address] [place] [address] [place] [address] [place] CBC W Auto Differential pane l (Bld)on 12-20-2023 Basophils (Bld) [#/Vol] 0.05 10*3/uL Normal <0.11 [facility] Comment on above: Order Comment: Speci men Type: BLOOD SPECIMEN [facility] Address: [address] [place] [address] Performed By: #### 5 7021-8 #### [facility] CLIA [id number] [address] [place], [place] [address] Basophils/100 WBC (Bld) 0.5 % Normal [facility] Comment on above: Order Comment: Speci men Type: BLOOD SPECIMEN [facility] Facility: [facility] Address: [address] [place] [address] Performed By: #### 5 7021-8 #### [facility] CLIA [id number] [address] [place] [address] Differential cell count method Nom (Bld) Auto Normal [facility] Comment on above: Order Comment: Speci men Type: BLOOD SPECIMEN [facility]ing Facility: [facility] Address: [address] [place] [address] Performed By: #### 5 7021-8 #### [facility] CLIA [id number] [address] [place] [address]010 Eosinophils (Bld) [#/Vol] 0.26 10*3/uL Normal <0.46 [facility] Comment on above: Order Comment: Speci men Type: BLOOD SPECIMEN [facility] Address: [address] [place] [address] Performed By: #### 5 7021-8 #### [facility] CLIA [id number] [address] [place] [address] 55501 Eosinophils/100 WBC (Bld) 2.6 % Normal [facility] Comment on above: Order Comment: Speci men Type: BLOOD SPECIMEN [facility]ing Facility: [facility] Address: [address] [place] [address] Performed By: #### 5 7021-8 #### [facility] CLIA [id number] [address] [place] [address] Erythrocyte distribution width (RBC) [Ratio] 14.6 % Normal 11.5-15.0 [facility] Comment on above: Order Comment: Speci men Type: BLOOD SPECIMEN [facility]ing Facility: [facility] Address: [address] [place] [address] Performed By: #### 5 7021-8 #### [facility] CLIA [id number] [address] [place] [address] 22706 Hematocrit (Bld) [Volume fraction] 40.9 % Normal 36.0-46.0 [facility] Comment on above: Order Comment: Speci men Type: BLOOD SPECIMEN [facility]ing Facility: [facility] Address: [address] [place] [address] Performed By: #### 5 7021-8 #### [facility] CLIA [id number] [address] [place] [address]798 Hemoglobin (Bld) [Mass/Vol] 13.1 g/dL Normal 11.5-15.5 [facility] Comment on above: Order Comment: Speci men Type: BLOOD SPECIMEN [facility]ing [facility]: [facility] Address: [address] [place] [address] Performed By: #### 5 7021-8 #### [facility] CLIA [id number] [address] [place] [address]26 Immature granulocytes (Bld) [#/Vol] 0.04 10*3/uL Normal <0.10 [facility] Comment on above: Order Comment: Speci men Type: BLOOD SPECIMEN [facility] Address: [address] [place] [address] Performed By: #### 5 7021-8 #### [facility] CLIA [id number] [address] [place] [address] Immature granulocytes/100 WBC (Bld) 0.4 % Normal [facility] Comment on above: Order Comment: Speci men Type: BLOOD SPECIMEN [facility] Address: [address] [place] [address] Performed By: #### 5 7021-8 #### [facility] CLIA [id number] [address] [place] [address] 59794 Lymphocytes (Bld) [#/Vol] 1.75 10*3/uL Normal 1.00-4.00 [facility] Comment on above: Order Comment: Speci men Type: BLOOD SPECIMEN [facility] Address: [address] [place] [address] Performed By: #### 5 7021-8 #### [facility] CLIA [id number] [address] [place] [address] 08054 Lymphocytes/100 WBC (Bld) 17.4 % Normal [facility] Comment on above: Order Comment: Speci men Type: BLOOD SPECIMEN [facility] Address: [address] [place] [address] Performed By: #### 5 7021-8 #### [facility] CLIA [id number] [address] [place] [address] 83932 MCH (RBC) [Entitic mass] 25.6 pg Low 26.0-34.0 [facility] Comment on above: Order Comment: Speci men Type: BLOOD SPECIMEN [facility] Address: [address] [place] [address] Performed By: #### 5 7021-8 #### [facility] CLIA [id number] [address] [place] [address] 84345 MCHC (RBC) [Mass/Vol] 32.0 g/dL Normal 30.5-36.0 [facility] Comment on above: Order Comment: Speci men Type: BLOOD SPECIMEN [facility] Address: [address] [place] [address] Performed By: #### 5 7021-8 #### [facility] CLIA [id number] [address] [place] [address] 56589 MCV (RBC) [Entitic vol] 79.9 fL Low 80.0-100.0 [facility] Comment on above: Order Comment: Speci men Type: BLOOD SPECIMEN [facility] Address: [address] [place] [address] Performed By: #### 5 7021-8 #### [facility] CLIA [id number] [address] [place] [address] 48977 Monocytes (Bld) [#/Vol] 0.57 10*3/uL Normal <0.87 [facility] Comment on above: Order Comment: Speci men Type: BLOOD SPECIMEN [facility] Address: [address] [place] [address] Performed By: #### 5 7021-8 #### [facility] CLIA [id number] [address] [place] [address] 29007 Monocytes/100 WBC (Bld) 5.7 % Normal [facility] Comment on above: Order Comment: Speci men Type: BLOOD SPECIMEN [facility] Address: [address] [place] [address] Performed By: #### 5 7021-8 #### [facility] CLIA [id number] [address] [place] [address] 49086 Neutrophils (Bld) [#/Vol] 7.41 10*3/uL Normal 1.45-7.50 [facility] Comment on above: Order Comment: Speci men Type: BLOOD SPECIMEN [facility] Address: [address] [place] [address] Performed By: #### 5 7021-8 #### [facility] CLIA [id number] [address] [place] [address] 33586 Neutrophils/100 WBC (Bld) 73.4 % Normal [facility] Comment on above: Order Comment: Speci men Type: BLOOD SPECIMEN [facility] Address: [address] [place] [address] Performed By: #### 5 7021-8 #### [facility] CLIA [id number] [address] [place] [address] 11064 Nucleated RBC (Bld) [#/Vol] 10*3/uL Normal <0.01 [facility] Comment on above: Order Comment: Speci men Type: BLOOD SPECIMEN [facility] Address: [address] [place] [address] Performed By: #### 5 7021-8 #### [facility] CLIA [id number] [address] [place] [address] 03314 Nucleated RBC/100 WBC (Bld) [Ratio] 0.0 /100 WBC Normal [facility] Comment on above: Order Comment: Speci men Type: BLOOD SPECIMEN [facility] Address: [address] [place] [address] Performed By: #### 5 7021-8 #### [facility] CLIA [id number] [address] [place] [address] 09549 Platelet mean volume (Bld) [Entitic vol] 8.8 fL Low 9.0-12.7 [facility] Comment on above: Order Comment: Speci men Type: BLOOD SPECIMEN [facility] Address: [address] [place] [address] Performed By: #### 5 7021-8 #### [facility] CLIA [id number] [address] [place] [address] 57807 Platelets (Bld) [#/Vol] 327 10*3/uL Normal 150-400 [facility] Comment on above: Order Comment: Speci men Type: BLOOD SPECIMEN [facility] Address: [address] [place] [address] Performed By: #### 5 7021-8 #### [facility] CLIA [id number] [address] [place] [address] RBC (Bld) [#/Vol] 5.12 10*6/uL Normal 3.90-5.20 [facility] Comment on above: Order Comment: Speci men Type: BLOOD SPECIMEN [facility] Address: [address] [place] [address] Performed By: #### 5 7021-8 #### [facility] CLIA [id number] [address] [place] [address]61 WBC (Bld) [#/Vol] 10.08 10*3/uL Normal 3.70-11.00 [facility] Comment on above: Order Comment: Speci men Type: BLOOD SPECIMEN [facility] Address: [address] [place] [address] Performed By: #### 5 7021-8 #### [facility] CLIA [id number] [address] [place], [place] [address] CNOVSPon 12-20-2023 CNOVSP Visit (SP) Office ([place]) MARGARET PRIETO ([id number]) 1990 F Date Time Provider Department 12/20/23 10:00 AM SHARIF JOSEPH During your visit today, we recorded the following information about you: Temperature Pulse Respiration Blood pressure 97.7 degrees 98/minute 16/minute 154/90 Weight 171.1 kg Sharif Joseph MD 12/22/2023 6:44 AM Signed NAME: Margaret Prieto CLINIC NO.: [id number] DATE OF SERVICE: December 20, 2023 (Jonelle) Some elements in this clinic note that are critical to medical decision making have been carefully reviewed and included from a prior clinic note dated: November 29, 2023 (Jonelle) Referring Provider: Harley Thacker APRN-DIETITIAN CHIEF Additional Clinicians involved in Margaret Prieto's care: [...] 10mg daily Resume Foltx Resume iron tablets - HPI: CASE HISTORY: Reverse Chronological Order 12/10/2023 [...] anticoagulation injecti (more content not included)... Normal [facility] Comprehensive metabolic 2000 panelon 12-20-2023 Albumin [Mass/Vol] 3.7 g/dL Low 3.9-4.9 [facility] Comment on above: Order Comment: Speci men Type: BLOOD SPECIMEN [facility] Address: [address] [place] [address] Performed By: #### 2 4323-8 #### [facility] CLIA [id number] [address] [place] [address] ALP [Catalytic activity/Vol] 85 U/L Normal 34-123 [facility] Comment on above: Order Comment: Speci men Type: BLOOD SPECIMEN [facility]ing [facility] Address: [address] [place] [id number] Performed By: #### 2 4323-8 #### [facility] CLIA [id number] [address] [place] [address]6073 ALT [Catalytic activity/Vol] 30 U/L Normal 7-38 [facility] Comment on above: Order Comment: Speci men Type: BLOOD SPECIMEN [facility] Address: [address] [place] [address] Performed By: #### 2 4323-8 #### [facility] CLIA [id number] [address] [place] [address] 92916 Anion gap [Moles/Vol] 13 mmol/L Normal 9-18 [facility] Comment on above: Order Comment: Speci men Type: BLOOD SPECIMEN [facility] Address: [address] [place] [address] Performed By: #### 2 4323-8 #### [facility] CLIA [id number] [address] [place] [address]326 AST [Catalytic activity/Vol] 18 U/L Normal 13-35 [facility] Comment on above: Order Comment: Speci men Type: BLOOD SPECIMEN [facility] Address: [address] [place] [address] Performed By: #### 2 4323-8 #### [facility] CLIA [id number] [address] [place] [address] 37170 Bilirubin [Mass/Vol] 0.3 mg/dL Normal 0.2-1.3 [facility] Comment on above: Order Comment: Speci men Type: BLOOD SPECIMEN [facility] Address: [address] [place] [address] Performed By: #### 2 4323-8 #### [facility] CLIA [id number] [address] [place] [address] 93352 Calcium [Mass/Vol] 9.4 mg/dL Normal 8.5-10.2 [facility] Comment on above: Order Comment: Speci men Type: BLOOD SPECIMEN [facility] Address: [address] [place] [address] Performed By: #### 2 4323-8 #### [facility] CLIA [id number] [address] [place] [address] 39650 Chloride [Moles/Vol] 106 mmol/L High 97-105 [facility] Comment on above: Order Comment: Speci men Type: BLOOD SPECIMEN [facility] Address: [address] [place] [address] Performed By: #### 2 4323-8 #### [facility] CLIA [id number] [address] [place] [address] 48587 CO2 [Moles/Vol] 23 mmol/L Normal 22-30 [facility] Comment on above: Order Comment: Speci men Type: BLOOD SPECIMEN [facility] Address: [address] [place] [address] Performed By: #### 2 4323-8 #### [facility] CLIA [id number] [address] [place] [address]444 Creatinine [Mass/Vol] 0.81 mg/dL Normal 0.58-0.96 [facility] Comment on above: Order Comment: Speci men Type: BLOOD SPECIMEN [facility] Address: [address] [place] [address] Performed By: #### 2 4323-8 #### [facility] CLIA [id number] [address] [place] [address] 27555 Creatinine and Glomerular filtration rate.predicted panel (S/P/Bld) 98 mL/min/1.73m??? Normal >=60 [facility] Comment on above: Order Comment: Nima macias Type: BLOOD SPECIMEN [facility] Address: [address] [place] [address] Result Comment: Faye mated Glomerular Filtration Rate [...] reflect actual GFR. Performed By: #### 2 4323-8 #### [facility] CLIA [id number] [address] [place] [address] 96429 Glucose [Mass/Vol] 114 mg/dL High 74-99 [facility] Comment on above: Order Comment: Nima macias Type: BLOOD SPECIMEN [facility] Address: [address] [place] [address] Result Comment: The [place] Diabetes Association (ADA) provides guidance for cutoff [...] Standards of Medical Care in Diabetes 2016, [place] [employer] Association. Diabetes Care. 2016.39(Suppl 1). Performed By: #### 2 4323-8 #### [facility] CLIA [id number] [address] [place] [address] 74771 Potassium [Moles/Vol] 4.3 mmol/L Normal 3.7-5.1 [facility] Comment on above: Order Comment: Speci men Type: BLOOD SPECIMEN [facility] Address: [address] [place] [address] Performed By: #### 2 4323-8 #### [facility] CLIA [id number] [address] [place] [address] Protein [Mass/Vol] 7.9 g/dL Normal 6.3-8.0 [facility] Comment on above: Order Comment: Speci men Type: BLOOD SPECIMEN [facility] Address: [address] [place] [address] Performed By: #### 2 4323-8 #### [facility] CLIA [id number] [address] [place] [address] 08414 Sodium [Moles/Vol] 142 mmol/L Normal 136-144 [facility] Comment on above: Order Comment: Speci men Type: BLOOD SPECIMEN [facility] Address: [address] [place] [address] Performed By: #### 2 4323-8 #### [facility] CLIA [id number] [address] [place] [address] 95831 Urea nitrogen [Mass/Vol] 13 mg/dL Normal 7-21 [facility] Comment on above: Order Comment: Speci men Type: BLOOD SPECIMEN [facility] Address: [address] [place] [address] Performed By: #### 2 4323-8 #### [facility] CLIA [id number] [address] [place] [address] 48546 Ferritin SerPl-mCncon 2023 Ferritin [Mass/Vol] 63.7 ng/mL Normal 14.7-205.1 [facility] Comment on above: Order Comment: Speci men Type: BLOOD SPECIMEN [facility] Address: [address] [place] [address] Performed By: #### 2 4331-1 #### [facility] CLIA [id number] [address] [place] [address] [place] [facility] CLIA [id number] [address] [place] [address] #### 2276-4, 89352-2 #### [facility] CLIA [id number] [address] [place] [address] [place] Folate SerPl-mCncon 12-20-19 24 Folate [Mass/Vol] 13.9 ng/mL Normal >4.7 [facility] Comment on above: Order Comment: Speci men Type: BLOOD SPECIMEN [facility] Address: [address] [place] [address] Performed By: #### 2 132-9, 2284-8 #### [facility] CLIA [id number] [address] [place] [address] [place] HBV surface Ag Ser Qlon 12-02 HBV surface Ag Ql (S) Negative Normal Negative [facility] Comment on above: Order Comment: Speci men Type: BLOOD SPECIMEN Ordering Facility: [facility] Address: [address] [place] [address], [address], [place] [phone] Performed By: #### 2 4331-1 #### [facility] CLIA [id number] [address] [place] [address] [place] [facility] CLIA [id number] [address] [place] [address] #### 2276-4, 79903-6 #### [facility] CLIA [id number] [address] [place] [address] [place] HCV Ab Ser Qlon 12-20-2023 HCV Ab Ql (S) Negative Normal Negative [facility] Comment on above: Order Comment: Speci men Type: BLOOD SPECIMEN [facility] Address: [address] [place] [address], [address], [place] [address] Result Comment: The result suggests no evidence of active infection with Hepatitis C virus. Should recent infection be suspected, repeat testing may be considered 4-6 weeks after this draw. Performed By: #### 1 6128-1 #### [facility] CLIA [id number] [address] [place] [address] [place] Hcys SerPl-sCncon 12-20-2023 Homocysteine [Moles/Vol] 7.4 umol/L Normal <15.1 [facility] Comment on above: Order Comment: Speci men Type: BLOOD SPECIMEN [facility] Address: [address] [place] [address] Performed By: #### 1 3965-9 #### [facility] CLIA [id number] [address] [place] [address] [place] Iron and Iron binding capaci ty panelon 12-20-2023 Iron [Mass/Vol] 35 ug/dL Low 41-186 [facility] Comment on above: Order Comment: Speci men Type: BLOOD SPECIMEN [facility] Address: [address] [place] [address] Performed By: #### 2 4331-1 #### [facility] CLIA [id number] [address] [place] [address] [place] [facility] CLIA [id number] [address] [place] [address] #### 2276-4, 76052-3 #### [facility] CLIA [id number] [address] [place] [address] [place] Iron binding capacity [Mass/Vol] 339 ug/dL Normal 232-386 [facility] Comment on above: Order Comment: Speci men Type: BLOOD SPECIMEN [facility] Address: [address] [place] [address] Performed By: #### 2 4331-1 #### [facility] CLIA [id number] [address] [place] [address] [place] [facility] CLIA [id number] [address] [place] [address] #### 2276-4, 15993-2 #### [facility] CLIA [id number] [address] [place] [address] [place] Iron/TIBC [Molar ratio] 10.3 % Low 15.0-57.0 [facility] Comment on above: Order Comment: Speci men Type: BLOOD SPECIMEN [facility] Address: [address] [place] [address] Performed By: #### 2 4331-1 #### [facility] CLIA [id number] [address] [place] [address] [place] [facility] CLIA [id number] [address] [place] [address] #### 2276-4, 27745-3 #### [facility] CLIA [id number] [address] [place] [address] [place] Lipid 1996 panelon 4 Cholesterol [Mass/Vol] 173 mg/dL Normal <200 [facility] Comment on above: Order Comment: Speci men Type: BLOOD SPECIMEN Ordering Facility: [facility] Address: [address] [place] [address], [address], [place] [address] Result Comment: <200 mg/dL, Desirable 200-239 mg/dL, Borderline high >239 mg/dL, High Performed By: #### 2 4331-1 #### [facility] CLIA [id number] [address] [place] [address] [place] [facility] CLIA [id number] [address] [place] [address] #### 2276-4, 85812-2 #### [facility] CLIA [id number] [address] [place] [address] [place] Cholesterol in HDL [Mass/Vol] 32 mg/dL Low >39 [facility] Comment on above: Order Comment: Speci men Type: BLOOD SPECIMEN Ordering Facility: [facility] Address: [address] [place] [address], [address], [place] [address] Result Comment: 40-5 9 mg/dL, Acceptable >59 mg/dL, High: Negative risk factor for coronary heart disease <40 mg/dL, Low: Positive risk factor for coronary heart disease Performed By: #### 2 4331-1 #### [facility] CLIA [id number] [address] [place] [facility] CLIA [id number] [address] [place] [address] #### 2276-4, 40785-0 #### [facility] CLIA [id number] [address] [place] [address] [place] Cholesterol in LDL [Mass/Vol] 116 mg/dL High <100 [facility] Comment on above: Order Comment: Speci men Type: BLOOD SPECIMEN Ordering Facility: [facility] Address: [address] [place] [address], [address], [place] [id number] Result Comment: <100 mg/dL, Optimal 100-129 mg/dL, Near optimal/above optimal 130-159 mg/dL, Borderline high 160-189 mg/dL, High >189 mg/dL, Very high Secondary prevention optimal LDL Cholesterol levels are recommended to be < 70 mg/dL Performed By: #### 2 4331-1 #### [facility] CLIA [id number] [address] [place] [facility] CLIA [id number] [address] [place] [address] #### 2276-4, 06005-7 #### [facility] CLIA [id number] [address] [place] [address] [place] Cholesterol in LDL/Cholesterol in HDL [Mass ratio] 3.63 {ratio} High <2.54 [facility] Comment on above: Order Comment: Speci men Type: BLOOD SPECIMEN Ordering Facility: [facility] Address: [address] [place] [address], [address], [place] [phone] Result Comment: Venessae kim: 1. National Cholesterol Education Program ATP III Guideline At-A-Glance Quick Desk Reference: National Heart, Lung, and Blood [place]. National Institutes of Health. 2001: NIH Publication No. 01-3305. 2. An International Atherosclerosis Society position paper: global recommendations for the management of dyslipidemia: executive summary, Atherosclerosis. 2014: 232(2):410-413. Performed By: #### 2 4331-1 #### [facility] CLIA [id number] [address] [place] [address] [place] [facility] CLIA [id number] [address] [place] [address] #### 2276-4, 09938-1 #### [facility] CLIA [id number] [address] [place] [address] [place] Cholesterol in VLDL [Mass/Vol] 25 mg/dL Normal <30 [facility] Comment on above: Order Comment: Speci men Type: BLOOD SPECIMEN Ordering Facility: [facility] Address: [address] [place] [address], [address], [place] [address] Performed By: #### 2 4331-1 #### [facility] CLIA [id number] [address] [place] [address] [place] [facility] CLIA [id number] [address] [place] [address] #### [id number], 37278-3 #### [facility] CLIA [id number] [address] [place] [address] [place] Cholesterol non HDL [Mass/Vol] 141 mg/dL High <130 [facility] Comment on above: Order Comment: Speci men Type: BLOOD SPECIMEN Ordering Facility: [facility] Address: [address] [place] [address], [address], [place] [id number] Result Comment: <130 mg/dL, Optimal 130-159 mg/dL, Near optimal/above optimal 160-189 mg/dL, Borderline high 190-219 mg/dL, High >219 mg/dL, Very high Secondary prevention optimal non HDL Cholesterol levels are recommended to be <100 mg/dL Performed By: #### 2 4331-1 #### [facility] CLIA [id number] [address] LAB CLIA [id number] [address] [place] [address] #### 2276-4, 43328-6 #### [facility] CLIA [id number] [address] [place] [address] [place] Cholesterol.total/Ch olesterol in HDL [Mass ratio] 5.41 {ratio} High <5.10 [facility] Comment on above: Order Comment: Speci men Type: BLOOD SPECIMEN [facility] Address: [address] [place] [address], [address], [place] [address] Performed By: #### 2 4331-1 #### [facility] CLIA [id number] [address] [place] [address] OF [facility] CLIA [id number] [address] [place] [address] #### 2276-4, 72305-6 #### [facility] CLIA [id number] [address] [place] [address] [place] FASTING TIME 12 hrs Normal [facility] Comment on above: Order Comment: Speci men Type: BLOOD SPECIMEN [facility]ing Facility[facility] Address: [address] [place] [address], [address], [place] [address] Performed By: #### 2 4331-1 #### [facility] CLIA [id number] [address] [place] [address] [place] [facility] CLIA [id number] [address] [place] [address] #### 2276-4, 19465-7 #### [facility] CLIA [id number] [address] [place] [address] [place] Triglyceride [Mass/Vol] 126 mg/dL Normal <150 [facility] Comment on above: Order Comment: Speci men Type: BLOOD SPECIMEN Ordering Facility: [facility] Address: [address] [place] [address], [address], [place] [address] Result Comment: <150 mg/dL, Normal 150-199 mg/dL, Borderline high 200-499 mg/dL, High >499 mg/dL, Very high Performed By: #### 2 4331-1 #### [facility] CLIA [id number] [address] [place] [address] [place] [facility] CLIA [id number] [address] [place] [address] #### 2276-4, 26108-4 #### [facility] CLIA [id number] [address] [place] [address] [place] Vit B12 [facility] 18-2 024 Cobalamin (Vitamin B12) [Mass/Vol] 738 pg/mL Normal 232-1245 [facility] Comment on above: Order Comment: Speci men Type: BLOOD SPECIMEN Ordering Facility: [facility] Address: [address] [place] [address] Performed By: #### 2 132-9, 2284-8 #### [facility] CLIA [id number] [address] [place] [address] [place] XR CHEST 2 VWSon 12-12-2023 XR CHEST 2 VWS XR CHEST 2 VWS PA and lateral chest: HISTORY: Shortness of breath. 2 views of the chest are obtained. Lungs are clear. There is no consolidation or effusion. No pneumothorax. Osseous appear intact. Cardiac and mediastinal contours are unremarkable. IMPRESSION: No acute findings. Finalized by Tarun Rodríguez MD on 12/12/2023 2:25 PM Normal [facility] H PYLORI SCREENon 12-10-2023 H. pylori Org specific cx Ql (Roland fld) Negative Normal NEG [facility] Comment on above: Performed By: #### 4 4015-6 #### [facility] ([id number]) [address] [place] [address], [address] [place] [address] HCG ( test) Ql (U)o n 12-10-2023 Beta HCG ( test) Ql (U) Negative Normal NEG [facility] Comment on above: Performed By: #### P INR, 35922-9 #### [facility] ([id number]) [address] [place] [address], [place] [address] #### BMP #### [facility] ([id number]) [address] [place] [address], [address] [place] [address] Surgical Pathologyon 024 Surgical Pathology Normal [facility] Comment on above: Result Comment: [facility] [address] [place] [address] Surgical Pathology Consultation Patient Name:MARGARET PRIETO:1990 (Age: 33)Gender:FTaken:4Reported:4Physician(s):Collins Mejia D.O. ([phone])Copy To: Rec. #:[id number]: #[id number] Final Pathologic Diagnosis 1. Antrum biopsy: Fragments of gastric mucosa with no significant histopathologic abnormality 2. Distal esophagus biopsy: Fragment of gastric cardia mucosa with reactive changes suggestive of mild chronic reflux-related changes Squamous mucosa, dysplasia or intestinal metaplasia is not identified Report Electronically Signed Out nsk/12/18/2023Halina Fraga [place] [address], License number: [id number]. Clinical History Gastroesophageal reflux, nausea, vomiting. Gross Description 1. Received in formalin labeled, MORHART, antrum are 2 pale-herrera delicate soft tissue fragments, each 0.4 cm in greatest dimension. The specimens are filtered and submitted in a single cassette. (1, ns, [id number], m4) TB 2. Received in formalin labeled, MORHART, distal esophagus is a pale-herrera delicate soft tissue bit, 0.3 cm in greatest dimension. The specimen is filtered and submitted in a single cassette. (1, ns, [id number], m4) TB tgb/12/11/2023NSK Specimen(s) Received 1: Antrum biopsy 2: Distal esophagus biopsy Fee Codes(s): 1; 37778 2; 07038 Cytologyon 12-07-2023 Cytology Normal [facility] Comment on above: Result Comment: [facility] [address] [place] [address] Gynecologic Cytology Consultation Patient Name:MARGARET PRIETO:1990 (Age: 33)Gender:FTaken:4Reported:12/24/2023hysician(s):Milady PelaezNMichellePMichelle ([phone])Copy To: Rec. #:[id number]: #[id number] Final Cytologic Interpretation ThinPrep Pap Test (Vaginal/Cervical): Satisfactory for evaluation. A transformazion zone component is not identified via imaging-assisted review, using [facility] Thin Prep Imaging System, within 22 microscopic chan of view. NEGATIVE FOR INTRAEPITHELIAL LESION OR MALIGNANCY. [facility]/12/24/2023 [facility] [place] [address], License number: [id number]. 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 (SITE MANAGER) Fee Code(s): G0145 HGB A1C (GLYCO-HGB)on 2023 Glucose [Mass/Vol] 123 mg/dL Normal [facility] Comment on above: Performed By: #### T SHR #### [facility] ([id number]) [address] [place] [address], [address] [place] [address] HbA1c (Bld) [Mass fraction] 5.9 % High 4.4-5.6 [facility] Comment on above: Result Comment: NOTE ADA Guidelines Result HgbA1c Normal : less than 5.7 % Prediabetes : 5.7 % to 6.4 % Diabetes : > 6.4 % Use with caution in patients with abnormal hemoglobin variants as the half-life of red blood cells and in vivo glycation rates are affected. Performed By: #### T SHR #### [facility] ([id number]) [address] [place] [address], [address] [place] [address] HIGH RISK HPV W/GENOon 12-06 HPV 31+33+35+39+45+51+52 +56+58+59+66+68 DNA EVARISTO+probe Ql (Cvx) HPV SPECIMEN TYPE ThinPrep HPV 16 Negative (qualifier value) HPV 18 Negative (qualifier value) OTHER HIGH RISK HPV Negative (qualifier value) HPV types 31,33,35,39,45,52,56, 58,59,66 and 68 DNA were undetectable. Normal [facility] Comment on above: Performed By: #### 7 1431-1 #### [facility] ([id number]) [address] [place] [address], [place] [address] [facility] ([id number]) [address] [facility] [place] [address] Hemoglobin A1con 12-07-2023 Average glucose Estimated from glycated hemoglobin (Bld) [Mass/Vol] 123 mg/dL [facility] HbA1c (Bld) [Mass fraction] 5.9 % High 4.4 - 5.6 % [facility] Comment on above: NOTE ADA Guidelines Result HgbA1c Normal : less than 5.7 % Prediabetes : 5.7 % to 6.4 % Diabetes : > 6.4 % Use with caution in patients with abnormal hemoglobin variants as the half-life of red blood cells and in vivo glycation rates are affected. Interpretation and review of laboratory results Abnormal [facility] TSH WITH REFLEXon 12-07-2023 TSH 3.01 uIU/mL Normal 0.49-4.67 [facility] Comment on above: Performed By: #### T SHR #### [facility] ([id number]) [address] [facility] [facility] [place] [address] TSH with Reflexon 12-07-2023 TSH Qn 3.01 m[IU]/L [facility] FERRITIN BLDon 11-30-2023 Ferritin [Mass/Vol] 72.5 ng/mL 14.7 - 2 05.1 ng/mL [facility] FOLATE SERUMon 11-30-2023 Folate [Mass/Vol] 12.6 ng/mL >4.7 ng/mL [facility] Iron and Iron binding capaci ty panelon 11-30-2023 Iron [Mass/Vol] 34 ug/dL Low 41 - 186 ug/dL [facility] Iron binding capacity [Mass/Vol] 375 ug/dL 232 - 386 ug/dL [facility] Iron/TIBC [Molar ratio] 9.1 % Low 15.0 - 57.0 % [facility] VITAMIN B12 BLOODon 11-30-19 24 Cobalamin (Vitamin B12) [Mass/Vol] 740 pg/mL 232 - 1,245 pg/mL [facility] CBC W Auto Differential pane l (Bld)on 11-29-2023 Basophils (Bld) [#/Vol] 0.06 10*3/uL <0.11 k/uL [facility] Basophils/100 WBC (Bld) 0.5 % [facility] Differential cell count method Nom (Bld) Auto [facility] Eosinophils (Bld) [#/Vol] 0.30 10*3/uL <0.46 k/uL [facility] Eosinophils/100 WBC (Bld) 2.4 % [facility] Erythrocyte distribution width (RBC) [Ratio] 14.7 % 11.5 - 15.0 % [facility] Hematocrit (Bld) [Volume fraction] 41.9 % 36.0 - 46.0 % [facility] Hemoglobin (Bld) [Mass/Vol] 13.6 g/dL 11.5 - 15.5 g/dL [facility] Immature granulocytes (Bld) [#/Vol] 0.05 10*3/uL <0.10 k/uL [facility] Immature granulocytes/100 WBC (Bld) 0.4 % [facility] Lymphocytes (Bld) [#/Vol] 1.86 10*3/uL 1.00 - 4.00 k/uL [facility] Lymphocytes/100 WBC (Bld) 15.1 % [facility] MCH (RBC) [Entitic mass] 25.9 pg Low 26.0 - 34.0 pg [facility] MCHC (RBC) [Mass/Vol] 32.5 g/dL 30.5 - 36.0 g/dL [facility] MCV (RBC) [Entitic vol] 79.8 fL Low 80.0 - 100.0 fL [facility] Monocytes (Bld) [#/Vol] 0.74 10*3/uL <0.87 k/uL [facility] Monocytes/100 WBC (Bld) 6.0 % [facility] Neutrophils (Bld) [#/Vol] 9.33 10*3/uL High 1.45 - 7.50 k/uL [facility] Neutrophils/100 WBC (Bld) 75.6 % [facility] Nucleated RBC (Bld) [#/Vol] <0.01 k/uL [facility] Nucleated RBC/100 WBC (Bld) [Ratio] 0.0 /100 WBC [facility] Platelet mean volume (Bld) [Entitic vol] 8.9 fL Low 9.0 - 12.7 fL [facility] Platelets (Bld) [#/Vol] 387 10*3/uL 150 - 400 k/uL [facility] RBC (Bld) [#/Vol] 5.25 10*6/uL High 3.90 - 5.2 0 m/uL [facility] WBC (Bld) [#/Vol] 12.34 10*3/uL High 3.70 - 11 .00 k/uL [facility] Basophils (Bld) [#/Vol] 0.06 10*3/uL Normal <0.11 [facility] Comment on above: Order Comment: Speci men Type: BLOOD SPECIMEN Ordering Facility: [facility] Address: [address] [place] [address], [address] [place] [address] Performed By: #### 2 4331-1 #### [facility] CLIA [id number] [address] [place] [address] LAB CLIA [id number] [address] [place] [address] #### 2276-4, 45522-8 #### [facility] CLIA [id number] [address] [place] [address] Basophils/100 WBC (Bld) 0.5 % Normal [facility] Comment on above: Order Comment: Speci men Type: BLOOD SPECIMEN Ordering Facility: [facility] Address: [address] [place] [address], [address] [place] [address] Performed By: #### 2 4331-1 #### [facility] CLIA [id number] [address] [place] [address] LAB CLIA [id number] [address] [place] [address] #### 2276-4, 43785-3 #### [facility] CLIA [id number] [address] [id number] [address] [place] Differential cell count method Nom (Bld) Auto Normal [facility] Comment on above: Order Comment: Speci men Type: BLOOD SPECIMEN Ordering Facility: [facility] Address: [address] [place] [address], [address] [phone] Performed By: #### 2 4331-1 #### [facility] CLIA [id number] [address] [place] [address] OF [facility] CLIA [id number] [address] [place] [address] #### 2276-4, 76402-0 #### [facility] CLIA [id number] [address] [place] [address] [place] Eosinophils (Bld) [#/Vol] 0.30 10*3/uL Normal <0.46 [facility] Comment on above: Order Comment: Speci men Type: BLOOD SPECIMEN Ordering Facility: [facility] Address: [address] [place] [address], [address], [place] [phone] Performed By: #### 2 4331-1 #### [facility] CLIA [id number] [address] [place] [address] OF [facility] CLIA [id number] [address] [place], [place] [address] #### 2276-4, 80243-3 #### [facility] CLIA [id number] [address] [place] [address] [place] Eosinophils/100 WBC (Bld) 2.4 % Normal [facility] Comment on above: Order Comment: Speci men Type: BLOOD SPECIMEN Ordering Facility: [facility] Address: [address] [place] [address], [address], [place] [address] Performed By: #### 2 4331-1 #### [facility] CLIA [id number] [address] OF [place] [facility] CLIA [id number] [address] [place], [place] [address] #### 2276-4, 20101-4 #### [facility] CLIA [id number] [address] [place] [address] [place] Erythrocyte distribution width (RBC) [Ratio] 14.7 % Normal 11.5-15.0 [facility] Comment on above: Order Comment: Speci men Type: BLOOD SPECIMEN Ordering Facility: [facility] Address: [address] [place] [address], [address], [place] [phone] Performed By: #### 2 4331-1 #### [facility] CLIA [id number] [address] [place] [address] LAB CLIA [id number] [address] [place] [address] #### 2276-4, 46205-6 #### [facility] CLIA [id number] [address] [place] [address] [place] Hematocrit (Bld) [Volume fraction] 41.9 % Normal 36.0-46.0 [facility] Comment on above: Order Comment: Speci men Type: BLOOD SPECIMEN Ordering Facility: [facility] Address: [address] [place] [address], [address], [place] [phone] Performed By: #### 2 4331-1 #### [facility] CLIA [id number] [address] [place] [address] [place] [facility] CLIA [id number] [address] [place], [place] [address] #### 2276-4, 44255-5 #### [facility] CLIA [id number] [address] [place], [place] [address] [place] Hemoglobin (Bld) [Mass/Vol] 13.6 g/dL Normal 11.5-15.5 [facility] Comment on above: Order Comment: Speci men Type: BLOOD SPECIMEN Ordering Facility: [facility] Address: [address] [place] [address], [address] [place], [place] [address] Performed By: #### 2 4331-1 #### [facility] CLIA [id number] [address] [place] [address] LAB CLIA [id number] [address] [place] [address] #### 2276-4, 98645-4 #### [facility] CLIA [id number] [address] [place] [address] [place] Immature granulocytes (Bld) [#/Vol] 0.05 10*3/uL Normal <0.10 [facility] Comment on above: Order Comment: Speci men Type: BLOOD SPECIMEN Ordering Facility: [facility] Address: [address] [place] [address], [address], [place] [address] Performed By: #### 2 4331-1 #### [facility] CLIA [id number] [address] [place] [address] LAB CLIA [id number] [address] [place] [address] #### 2276-4, 94410-5 #### [facility] CLIA [id number] [address] [place] [address] [place] Immature granulocytes/100 WBC (Bld) 0.4 % Normal [facility] Comment on above: Order Comment: Speci men Type: BLOOD SPECIMEN Ordering Facility: [facility] Address: [address] [place] [address], [address] [place] [address] Performed By: #### 2 4331-1 #### [facility] CLIA [id number] [address] [place] [address] OF [place] [facility] CLIA [id number] [address] [place], [place] [address] #### 2276-4, 13976-7 #### [facility] CLIA [id number] [address] [place] [address] [place] Lymphocytes (Bld) [#/Vol] 1.86 10*3/uL Normal 1.00-4.00 [facility] Comment on above: Order Comment: Speci men Type: BLOOD SPECIMEN Ordering Facility: [facility] Address: [address] [place] [address], [address] [phone] Performed By: #### 2 4331-1 #### [facility] CLIA [id number] [address] [place] [address] [place] [facility] CLIA [id number] [address] [place] [address] #### 2276-4, 24983-9 #### [facility] CLIA [id number] [address] [place] [address] [place] Lymphocytes/100 WBC (Bld) 15.1 % Normal [facility] Comment on above: Order Comment: Speci men Type: BLOOD SPECIMEN Ordering Facility: [facility] Address: [address] [place] [address], [address], [place] [phone] Performed By: #### 2 4331-1 #### [facility] CLIA [id number] [address] [place] [address] [place] [facility] CLIA [id number] [address] [place], [place] [address] #### 2276-4, 53246-3 #### [facility] CLIA [id number] [facility] [place] [id number] [place] MCH (RBC) [Entitic mass] 25.9 pg Low 26.0-34.0 [facility] Comment on above: Order Comment: Speci men Type: BLOOD SPECIMEN Ordering Facility: [facility] Address: [address] [place] [address], [address] [phone] Performed By: #### 2 4331-1 #### [facility] CLIA [id number] [address] [place] [address] LAB CLIA [id number] [address] [place] [address] #### 2276-4, 45114-5 #### [facility] CLIA [id number] [address] [place] [address] [place] MCHC (RBC) [Mass/Vol] 32.5 g/dL Normal 30.5-36.0 [facility] Comment on above: Order Comment: Speci men Type: BLOOD SPECIMEN Ordering Facility: [facility] Address: [address] [place] [address], [address], [place] [phone] Performed By: #### 2 4331-1 #### [facility] CLIA [id number] [address] [place] [address] OF [facility] CLIA [id number] [address] [place] [address] #### 2276-4, 88270-2 #### [facility] CLIA [id number] [address] [place] [address] [place] MCV (RBC) [Entitic vol] 79.8 fL Low 80.0-100.0 [facility] Comment on above: Order Comment: Speci men Type: BLOOD SPECIMEN Ordering Facility: [facility] Address: [address] [place] [address], [address], [place] [phone] Performed By: #### 2 4331-1 #### [facility] CLIA [id number] [address] [place] [address] OF [place] [facility] CLIA [id number] [address] [place], [place] [address] #### 2276-4, 91404-5 #### [facility] CLIA [id number] [address] [place] [address] [place] Monocytes (Bld) [#/Vol] 0.74 10*3/uL Normal <0.87 [facility] Comment on above: Order Comment: Speci men Type: BLOOD SPECIMEN Ordering Facility: [facility] Address: [address] [place] [address], [address] [phone] Performed By: #### 2 4331-1 #### [facility] CLIA [id number] [address] [place] [address] [place] [facility] CLIA [id number] [address] [place] [address] #### 2276-4, 91914-9 #### [facility] CLIA [id number] [address] [place] [address] [place] Monocytes/100 WBC (Bld) 6.0 % Normal [facility] Comment on above: Order Comment: Speci men Type: BLOOD SPECIMEN Ordering Facility: [facility] Address: [address] [place] [address], [address] [phone] Performed By: #### 2 4331-1 #### [facility] CLIA [id number] [address] [place] [address] [place] [facility] CLIA [id number] [address] [place], [place] [address] #### 2276-4, 53270-8 #### [facility] CLIA [id number] [address] [place] [address] [place] Neutrophils (Bld) [#/Vol] 9.33 10*3/uL High 1.45-7.50 [facility] Comment on above: Order Comment: Speci men Type: BLOOD SPECIMEN Ordering Facility: [facility] Address: [address] [facility], [address], [place] [phone] Performed By: #### 2 4331-1 #### [facility] CLIA [id number] [address] [place] [address] LAB CLIA [id number] [address] [place] [address] #### 2276-4, 79880-4 #### [facility] CLIA [id number] [address] [place] [address] [place] Neutrophils/100 WBC (Bld) 75.6 % Normal [facility] Comment on above: Order Comment: Speci men Type: BLOOD SPECIMEN Ordering Facility: [facility] Address: [address] [place] [address], [address], [place] [address] Performed By: #### 2 4331-1 #### [facility] CLIA [id number] [address] [place] [address] LAB CLIA [id number] [address] [place] [address] #### 2276-4, 77062-1 #### [facility] CLIA [id number] [address] [place] [address] [place] Nucleated RBC (Bld) [#/Vol] 10*3/uL Normal <0.01 [facility] Comment on above: Order Comment: Speci men Type: BLOOD SPECIMEN Ordering Facility: [facility] Address: [address] [place] [address], [address], [place] [phone] Performed By: #### 2 4331-1 #### [facility] CLIA [id number] [address] [place], [place] [id number] [facility] CLIA [id number] [address] [place] [address] #### 2276-4, 47838-4 #### [facility] CLIA [id number] [address] [place] [address] [place] Nucleated RBC/100 WBC (Bld) [Ratio] 0.0 /100 WBC Normal [facility] Comment on above: Order Comment: Speci men Type: BLOOD SPECIMEN Ordering Facility: [facility] Address: [address] [place] [address], [address] [id number] Performed By: #### 2 4331-1 #### [facility] CLIA [id number] [address] [place] [address] [place] [facility] CLIA [id number] [address] [place] [address] #### 2276-4, 29520-9 #### [facility] CLIA [id number] [place] [address] [place] Platelet mean volume (Bld) [Entitic vol] 8.9 fL Low 9.0-12.7 [facility] Comment on above: Order Comment: Speci men Type: BLOOD SPECIMEN Ordering Facility: [facility] Address: [address] [place] [address], [address] [place] [address] Performed By: #### 2 4331-1 #### [facility] CLIA [id number] [address] [place] [address] [place] [facility] CLIA [id number] [address] [place] [address] #### 2276-4, 39824-0 #### [facility] CLIA [id number] [address] [place] [address] [place] Platelets (Bld) [#/Vol] 387 10*3/uL Normal 150-400 [facility] Comment on above: Order Comment: Speci men Type: BLOOD SPECIMEN Ordering Facility: [facility] Address: [address] [place] [address], [address], [place] [address] Performed By: #### 2 4331-1 #### [facility] CLIA [id number] [address] [place] [address] LAB CLIA [id number] [address] [place], [place] [address] #### 2276-4, 29776-9 #### [facility] CLIA [id number] [address] [place], [place] [address] [place] RBC (Bld) [#/Vol] 5.25 10*6/uL High 3.90-5.20 [facility] Comment on above: Order Comment: Speci men Type: BLOOD SPECIMEN Ordering Facility: [facility] Address: [address] [place] [address], [address], [place] [id number] Performed By: #### 2 4331-1 #### [facility] CLIA [id number] [address] [place] [address] OF [facility] CLIA [id number] [address] [place] [address] #### 2276-4, 93314-5 #### [facility] CLIA [id number] [address] [place] [address] [place] WBC (Bld) [#/Vol] 12.34 10*3/uL High 3.70-11.00 [facility] Comment on above: Order Comment: Speci men Type: BLOOD SPECIMEN Ordering Facility: [facility] Address: [address] [place] [address], [address], [place] [phone] Performed By: #### 2 4331-1 #### [facility] CLIA [id number] [address] [place] [address] OF [place] [facility] CLIA [id number] [address] [place] [address] #### 2276-4, 11124-5 #### [facility] CLIA [id number] [address] [place], [place] [address] [place] CNOVSPon 11-29-2023 CNOVSP Visit (SP) Office (HEMASA) MARGARET PRIETO ([id number]) 1990 F Date Time Provider Department 11/29/23 11:15 AM SHARIF JOSEPH During your visit today, we recorded the following information about you: Temperature Pulse Respiration Blood pressure 97.6 degrees 98/minute 16/minute 159/100 Weight Height 172.8 kg 1.651 m Sharif Joseph MD 12/05/2023 9:50 AM Signed NAME: Margaret Prieto CLINIC NO.: [id number] DATE OF SERVICE: November 29, 2023 (Jonelle) Referring Provider: CHERIR Pelaez Consultation requested by CHERRI Pelaez for [...] resuming anticoagulation (will consider Arixtra 10mg daily) - HPI: CASE HISTORY: Reverse Chronological Order 2023 [...] including ECHO from 11/13/2022 and 11/23/2023 from [facility] which states -Echogenic density seen wihin [...] Xray orde (more content not included)... Normal [facility] Comprehensive metabolic 2000 panelon 11-29-2023 Albumin [Mass/Vol] 3.8 g/dL Low 3.9 - 4.9 g/dL [facility] ALP [Catalytic activity/Vol] 91 U/L 34 - 123 U/L [facility] ALT [Catalytic activity/Vol] 22 U/L 7 - 38 U/L [facility] Anion gap [Moles/Vol] 11 mmol/L 9 - 18 mmol/L [facility] AST [Catalytic activity/Vol] 17 U/L 13 - 35 U/L [facility] Bilirubin [Mass/Vol] 0.3 mg/dL 0.2 - 1 .3 mg/dL [facility] Calcium [Mass/Vol] 9.4 mg/dL 8.5 - 10. 2 mg/dL [facility] Chloride [Moles/Vol] 105 mmol/L 97 - 10 5 mmol/L [facility] CO2 [Moles/Vol] 24 mmol/L 22 - 30 mmol/L [facility] Creatinine [Mass/Vol] 0.83 mg/dL 0.58 - 0.96 mg/dL [facility] Estimated Glomerular Filtration Rate 95 mL/min/1.73m >=60 mL/min/1.73m [facility] Glucose [Mass/Vol] 117 mg/dL High 74 - 99 mg/dL [facility] Potassium [Moles/Vol] 4.4 mmol/L 3.7 - 5.1 mmol/L [facility] Protein [Mass/Vol] 8.1 g/dL High 6.3 - 8.0 g/dL [facility] Sodium [Moles/Vol] 140 mmol/L 136 - 144 mmol/L [facility] Urea nitrogen [Mass/Vol] 10 mg/dL 7 - 21 mg/dL [facility] Albumin [Mass/Vol] 3.8 g/dL Low 3.9-4.9 [facility] Comment on above: Order Comment: Speci men Type: BLOOD SPECIMEN Ordering Facility: [facility] Address: [address] [place] [address], [address] [address] Performed By: #### 2 4331-1 #### [facility] CLIA [id number] [address] [place] [address] STATES OF [facility] CLIA [id number] [address] [place] [address] #### 2276-4, 30152-8 #### [facility] CLIA [id number] [address] [place] [address] [place] ALP [Catalytic activity/Vol] 91 U/L Normal 34-123 [facility] Comment on above: Order Comment: Speci men Type: BLOOD SPECIMEN Ordering Facility: [facility] Address: [address] [place] [address], [address] [address] Performed By: #### 2 4331-1 #### [facility] CLIA [id number] [address] [place] [address] OF [place] [facility] CLIA [id number] [address] [place] [address] #### 2276-4, 13080-8 #### [facility] CLIA [id number] [address] [place], [place] [address] [place] ALT [Catalytic activity/Vol] 22 U/L Normal 7-38 [facility] Comment on above: Order Comment: Speci men Type: BLOOD SPECIMEN Ordering Facility: [facility] Address: [address] [place] [address], [address], [place] [address] Performed By: #### 2 4331-1 #### [facility] CLIA [id number] [address] [place] [address] [place] [facility] CLIA [id number] [address] [place], [place] [address] #### 2276-4, 78717-3 #### [facility] CLIA [id number] [address] [place] [address] [place] Anion gap [Moles/Vol] 11 mmol/L Normal 9-18 [facility] Comment on above: Order Comment: Speci men Type: BLOOD SPECIMEN Ordering Facility: [facility] Address: [address] [place] [address], [address] [phone] Performed By: #### 2 4331-1 #### [facility] CLIA [id number] [address] [place] [address] [place] [facility] CLIA [id number] [address] [place], [place] [address] #### 2276-4, 11045-3 #### [facility] CLIA [id number] [address] [place], [place] [address] [place] AST [Catalytic activity/Vol] 17 U/L Normal 13-35 [facility] Comment on above: Order Comment: Speci men Type: BLOOD SPECIMEN Ordering Facility: [facility] Address: [address] [facility], [address], [place] [address] Performed By: #### 2 4331-1 #### [facility] CLIA [id number] [address] [address] [place] [facility] OF [facility] CLIA [id number] [address] [place], [place] [address] #### 2276-4, 14496-5 #### [facility] CLIA [id number] [address] [address] [place] Bilirubin [Mass/Vol] 0.3 mg/dL Normal 0.2-1.3 [facility] Comment on above: Order Comment: Speci men Type: BLOOD SPECIMEN Ordering Facility: [facility] Address: [address] [place] [address], [address], [place] [address] Performed By: #### 2 4331-1 #### [facility] CLIA [id number] [address] [place] [address] [place] STATES OF [place] [facility] CLIA [id number] [address] [place], [place] [address] #### 2276-4, 09663-1 #### [facility] CLIA [id number] [facility] [place] [id number] [place] Calcium [Mass/Vol] 9.4 mg/dL Normal 8.5-10.2 [facility] Comment on above: Order Comment: Speci men Type: BLOOD SPECIMEN Ordering Facility: [facility] Address: [address] [place] [address], [address], [place] [address] Performed By: #### 2 4331-1 #### [facility] CLIA [id number] [address] [address] [place] [facility] CLIA [id number] [address] [place] [address] #### 2276-4, 67621-6 #### [facility] CLIA [id number] [address] [place] [address] [place] Chloride [Moles/Vol] 105 mmol/L Normal 97-105 [facility] Comment on above: Order Comment: Speci men Type: BLOOD SPECIMEN Ordering Facility: [facility] Address: [address] [place] [address], [address] [address] Performed By: #### 2 4331-1 #### [facility] CLIA [id number] [address] [place] [address] OF [facility] CLIA [id number] [address] [place] [address] #### 2276-4, 58910-8 #### [facility] CLIA [id number] [address] [place] [address] [place] CO2 [Moles/Vol] 24 mmol/L Normal 22-30 [facility] Comment on above: Order Comment: Speci men Type: BLOOD SPECIMEN Ordering Facility: [facility] Address: [address] [place] [address], [address], [place] [address] Performed By: #### 2 4331-1 #### [facility] CLIA [id number] [address] [place] [address] OF [facility] CLIA [id number] [address] [place] [address] #### 2276-4, 03111-4 #### [facility] CLIA [id number] [address] [place] [address] [place] Creatinine [Mass/Vol] 0.83 mg/dL Normal 0.58-0.96 [facility] Comment on above: Order Comment: Speci men Type: BLOOD SPECIMEN Ordering Facility: [facility] Address: [address] [place] [address], [address], [place] [phone] Performed By: #### 2 4331-1 #### [facility] CLIA [id number] [address] [place] [address] [place] [facility] CLIA [id number] [address] [place] [address] #### 2276-4, 91915-6 #### [facility] CLIA [id number] [address] [place] [address] [place] Creatinine and Glomerular filtration rate.predicted panel (S/P/Bld) 95 mL/min/1.73m??? Normal >=60 [facility] Comment on above: Order Comment: Speci men Type: BLOOD SPECIMEN Ordering Facility: [facility] Address: [address] [place] [address], [address], [place] [address] Result Comment: Faye mated Glomerular Filtration Rate [...] reflect actual GFR. Performed By: #### 2 4331-1 #### [facility] CLIA [id number] [address] [place] [address] [place] [facility] CLIA [id number] [address] [place], [place] [address] #### 2276-4, 87663-5 #### [facility] CLIA [id number] [address] [place] [address] [place] Glucose [Mass/Vol] 117 mg/dL High 74-99 [facility] Comment on above: Order Comment: Speci men Type: BLOOD SPECIMEN Ordering Facility: [facility] Address: [address] [place] [address], [address], [place] [phone] Result Comment: The [place] Diabetes Association (ADA) provides guidance for cutoff [...] Standards of Medical Care in Diabetes 2016, [place] [employer]. Diabetes Care. 2016.39(Suppl 1). Performed By: #### 2 4331-1 #### [facility] CLIA [id number] [address] [place] [address] [place] [facility] CLIA [id number] [address] [place] [address] #### 2276-4, 75854-2 #### [facility] CLIA [id number] [address] [place] [address] [place] Potassium [Moles/Vol] 4.4 mmol/L Normal 3.7-5.1 [facility] Comment on above: Order Comment: Speci men Type: BLOOD SPECIMEN Ordering Facility: [facility] Address: [address] [place] [address], [address], [place] [phone] Performed By: #### 2 4331-1 #### [facility] CLIA [id number] [facility] [place] [address] [place] [facility] CLIA [id number] [address] [place] [address] #### 2276-4, 68242-6 #### [facility] CLIA [id number] [address] [place] [address] [place] Protein [Mass/Vol] 8.1 g/dL High 6.3-8.0 [facility] Comment on above: Order Comment: Speci men Type: BLOOD SPECIMEN Ordering Facility: [facility] Address: [address] [place] [address], [address], [place] [phone] Performed By: #### 2 4331-1 #### [facility] CLIA [id number] [address] [place] [address] LAB CLIA [id number] [address] [place] [address] #### 2276-4, 51249-7 #### [facility] CLIA [id number] [address] [place] [address] [place] Sodium [Moles/Vol] 140 mmol/L Normal 136-144 [facility] Comment on above: Order Comment: Speci men Type: BLOOD SPECIMEN Ordering Facility: [facility] Address: [address] [place] [address], [address], [place] [address] Performed By: #### 2 4331-1 #### [facility] CLIA [id number] [address] [place] [address] LAB CLIA [id number] [address] [place] [address] #### 2276-4, 70659-4 #### [facility] CLIA [id number] [address] [place] [address] [place] Urea nitrogen [Mass/Vol] 10 mg/dL Normal 7-21 [facility] Comment on above: Order Comment: Speci men Type: BLOOD SPECIMEN Ordering Facility: [facility] Address: [address] [place] [address], [address] [phone] Performed By: #### 2 4331-1 #### [facility] CLIA [id number] [address] [place] [address] LAB CLIA [id number] [address] [place] [address] #### 2276-4, 33037-7 #### [facility] CLIA [id number] [address] [place] [address] [place] Ferritin SerPl-mCncon 2023 Ferritin [Mass/Vol] 72.5 ng/mL Normal 14.7-205.1 [facility] Comment on above: Order Comment: Speci men Type: BLOOD SPECIMEN Ordering Facility: [facility] Address: [address] [place] [address] Performed By: #### 2 4331-1 #### [facility] CLIA [id number] [address] [place] [address] STATES OF [facility] CLIA [id number] [address] [place] [address] #### 2276-4, 34725-9 #### [facility] CLIA [id number] [address] [place] [address] [place] Folate SerPl-ncon 11-29-19 Folate [Mass/Vol] 12.6 ng/mL Normal >4.7 [facility] Comment on above: Order Comment: Speci men Type: BLOOD SPECIMEN Ordering Facility: [facility] Address: [address] [place] [address] Performed By: #### 2 4331-1 #### [facility] CLIA [id number] [address] [place] [address] [place] [facility] CLIA [id number] [address] [place] [address] #### 2276-4, 31271-3 #### [facility] CLIA [id number] [address] [place] [address] [place] Iron and Iron binding capaci ty panelon 11-29-2023 Iron [Mass/Vol] 34 ug/dL Low 41-186 [facility] Comment on above: Order Comment: Speci men Type: BLOOD SPECIMEN Ordering Facility: [facility] Address: [address] [place] [address], [address] [phone] Performed By: #### 2 4331-1 #### [facility] CLIA [id number] [address] [place] [address] LAB CLIA [id number] [address] [place] [address] #### 2276-4, 02264-9 #### [facility] CLIA [id number] [address] [place] [address] Iron binding capacity [Mass/Vol] 375 ug/dL Normal 232-386 [facility] Comment on above: Order Comment: Speci men Type: BLOOD SPECIMEN Ordering Facility: [facility] Address: [address] [place] [address], [address], [place] [address] Performed By: #### 2 4331-1 #### [facility] CLIA [id number] [address] [place] [address] LAB CLIA [id number] [address] [place] [address] #### 2276-4, 76043-9 #### [facility] CLIA [id number] [address] [place] [address] [place] Iron/TIBC [Molar ratio] 9.1 % Low 15.0-57.0 [facility] Comment on above: Order Comment: Speci men Type: BLOOD SPECIMEN [facility] Address: [address] [place] [address], [address] [phone] Performed By: #### 2 4331-1 #### [facility] CLIA [id number] [address] [place], [place] [address]AST [facility] CLIA [id number] [address] [place], [place] [address] #### 2276-4, 54656-9 #### [facility] CLIA [id number] [address] [place], [place] [address] [place] OF [place] Vit B12 SerPl-mCncon 11-28- 024 Cobalamin (Vitamin B12) [Mass/Vol] 740 pg/mL Normal 232-1245 [facility] Comment on above: Order Comment: Speci men Type: BLOOD SPECIMEN Ordering Facility: [facility] Address: [address] [place] [address], [address], [place] [address] Performed By: #### 2 4331-1 #### [facility] CLIA [id number] [address] [place] [address] STATES OF [place] [facility] CLIA [id number] [address] [place] [address] #### 2276-4, 22535-7 #### [facility] CLIA [id number] [address] [place] [address] [place] [address] CTA CHESTon [...] dose to as low as reasonably achievable Finalized by Katya Perry MD on 11/18/2023 10:30 AM Normal [facility] XR CHEST 2 VWSon 11-15-2023 XR CHEST 2 VWS XR CHEST 2 VWS PA and lateral chest: HISTORY: Preoperative exam. Anesthesia clearance. 2 views of the chest were obtained. Cardiac and mediastinal contours are within normal limits. Lungs are clear. There is no vascular congestion, effusion, or pneumothorax. Osseous structures appear intact. IMPRESSION: No acute findings. Finalized by Tarun Rodríguez MD on 11/15/2023 9:26 AM Normal [facility] APTTon 11-09-2023 aPTT Coag (PPP) [Time] 30 s [facility] Comment on above: NEW REFERENCE RANGE BASIC METABOLIC PANLon 11-08 Anion gap [Moles/Vol] 9 mmol/L Normal 5-15 [facility] Comment on above: Performed By: #### P INR, 07048-0 #### [facility] ([id number]) [address] [place] [address] #### BMP #### [facility] ([id number]) [address], [address] [place] [address] Calcium [Mass/Vol] 8.8 mg/dL Normal 8.5-10.5 [facility] Comment on above: Performed By: #### P INR, 25550-5 #### [facility] ([id number]) [address] [place] [address] #### BMP #### [facility] ([id number]) [address] [place] [address] Chloride [Moles/Vol] 103 mmol/L Normal 98-109 [facility] Comment on above: Performed By: #### P INR, 51810-4 #### [facility] ([id number]) [address] [place] [address] #### BMP #### [facility] ([id number]) [address] [facility], [address] [place] [address] CO2 [Moles/Vol] 27 mmol/L Normal 22-32 [facility] Comment on above: Performed By: #### P INR, 44582-1 #### [facility] ([id number]) [address] [place] [address] #### BMP #### [facility] ([id number]) [address] [place] [address], [address] [place] [address] Creatinine [Mass/Vol] 0.70 mg/dL Normal 0.40-1.00 [facility] Comment on above: Result Comment: METH OD TRACEABLE TO IDMS STANDARD Performed By: #### P INR, 61528-9 #### [facility] ([id number]) [address] [place] [address] #### BMP #### [facility] ([id number]) [address] [place] [address], [address] [place] [address] eGFR (CKD-EPI) NON-RACE DEPENDENT >90 Normal >59 [facility] Comment on above: Result Comment: Reported eGFR is based on the CKD-EPI 2020 equation that does not use a race coefficient. Performed By: #### P INR, 38078-8 #### [facility] ([id number]) [address] [place] [address] #### BMP #### [facility] ([id number]) [facility] [facility], [address] [place] [address] Glucose [Mass/Vol] 116 mg/dL High 65-99 [facility] Comment on above: Performed By: #### P INR, 92808-1 #### [facility] ([id number]) [address] [place] [address] #### BMP #### [facility] ([id number]) [address], [address] [place] [address] Potassium [Moles/Vol] 3.9 mmol/L Normal 3.5-5.0 [facility] Comment on above: Performed By: #### P INR, 89212-8 #### [facility] ([id number]) [address] [place] [address] #### BMP #### [facility] ([id number]) [address], [address] [place] [address] Sodium [Moles/Vol] 139 mmol/L Normal 134-146 [facility] Comment on above: Performed By: #### P INR, 05270-4 #### [facility] ([id number]) [address] [place] [address] #### BMP #### [facility] ([id number]) [address], [address] [place] [address] Urea nitrogen [Mass/Vol] 13 mg/dL Normal 5-23 [facility] Comment on above: Performed By: #### P INR, 66510-4 #### [facility] ([id number]) [address] [place] [id number] #### BMP #### [facility] ([id number]) [address], [address] [place] [address] Basic Metabolic Panelon 03-0 Anion gap [Moles/Vol] 9 mmol/L 5 - 15 mmol/L [facility] Calcium [Mass/Vol] 8.8 mg/dL 8.5 - 10. 5 mg/dL [facility] Chloride [Moles/Vol] 103 mmol/L 98 - 10 9 mmol/L [facility] CO2 [Moles/Vol] 27 mmol/L 22 - 32 mmol/L [facility] Creatinine [Mass/Vol] 0.70 mg/dL 0.40 - 1.00 mg/dL [facility] Comment on above: METHOD TRACEABLE TO IDNY STANDARD eGFR (CKD-EPI)non-race dependent - PINF [facility] Comment on above: Reported eGFR is based on the CKD-EPI 2020 equation that does not use a race coefficient. Glucose [Mass/Vol] 116 mg/dL High 65 - 99 mg/dL [facility] Interpretation and review of laboratory results Abnormal [facility] Potassium [Moles/Vol] 3.9 mmol/L 3.5 - 5.0 mmol/L [facility] Sodium [Moles/Vol] 139 mmol/L 134 - 146 mmol/L [facility] Urea nitrogen [Mass/Vol] 13 mg/dL 5 - 23 mg/dL [facility] ECG 12 leadon 11-09-2023 TRACEMASTERVUE [facility] No Panel Informationon 11-08 [facility] PROTIME AND INRon 11-09-2023 INR Coag (PPP) [Relative time] 1.0 {INR} Normal 0.8-1.1 [facility] Comment on above: Performed By: #### P INR, 17361-0 #### [facility] ([id number]) [address] [place] [address] #### BMP #### [facility] ([id number]) [address], [address] [place] [address] PT Coag (PPP) [Time] 12.2 s Normal 9.8-13.2 [facility] Comment on above: Result Comment: NEW REFERENCE RANGE Performed By: #### P INR, 54061-2 #### [facility] ([id number]) [address] [place] [address] #### BMP #### [facility] ([id number]) [address] [place] [address] Protime & INRon 11-09-2023 INR Coag (PPP) [Relative time] 1.0 {INR} [facility] PT Coag (PPP) [Time] 12.2 s [facility] Comment on above: NEW REFERENCE RANGE aPTT Coag (PPP) [Time]on aPTT Coag (Bld) [Time] 30 s Normal 26-37 [facility] Comment on above: Result Comment: NEW REFERENCE RANGE Performed By: #### P INR, 19294-0 #### [facility] ([id number]) [address] [facility] [place] [address] #### BMP #### [facility] ([id number]) [address] [place] [address], [address] [place] [address] C. difficile toxin genes EVARISTO +probe Ql (Stl)on 11-08-2023 [facility] Gastrointestinal pathogens D NA and RNA panel EVARISTO+non-probe (Stl)on 11-08-2023 Adenovirus 40+41 DNA EVARISTO+non-probe Ql (Stl) Not detected Not Detected^Not Detected [facility] Astrovirus subtypes 1-8 RNA EVARISTO+non-probe Ql (Stl) Not detected Not Detected^Not Detected [facility] C. cayetanensis DNA EVARISTO+non-probe Ql (Stl) Not detected Not Detected^Not Detected [facility] C. coli+jejuni+upsalien sis DNA EVARISTO+non-probe Ql (Stl) Not detected Not Detected^Not Detected [facility] Cryptosporidium sp DNA EVARISTO+non-probe Ql (Stl) Not detected Not Detected^Not Detected [facility] E. coli enteroaggregative Jeevan plasmid aggR+aatA genes EVARISTO+non-probe Ql (Stl) Not detected Not Detected^Not Detected [facility] E. coli enteropathogenic eae gene EVARISTO+non-probe Ql (Stl) Not detected Not Detected^Not Detected [facility] E. coli enterotoxigenic ltA+st1a+st1b genes EVARISTO+non-probe Ql (Stl) Not detected Not Detected^Not Detected [facility] E. coli stx1+stx2 genes EVARISTO+non-probe Ql (Stl) Not detected Not Detected^Not Detected [facility] E. histolytica DNA EVARISTO+non-probe Ql (Stl) Not detected Not Detected^Not Detected [facility] G. lamblia DNA EVARISTO+non-probe Ql (Stl) Not detected Not Detected^Not Detected [facility] Norovirus genogroup I+II RNA EVARISTO+non-probe Ql (Stl) Not detected Not Detected^Not Detected [facility] P. shigelloides DNA EVARISTO+non-probe Ql (Stl) Not detected Not Detected^Not Detected [facility] Rotavirus A RNA EVARISTO+non-probe Ql (Stl) Not detected Not Detected^Not Detected [facility] S. enterica+bongori DNA EVARISTO+non-probe Ql (Stl) Not detected Not Detected^Not Detected [facility] Sapovirus genogroups I+II+IV+V RNA EVARISTO+non-probe Ql (Stl) Not detected Not Detected^Not Detected [facility] Shigella species+EIEC invasion plasmid antigen H ipaH gene EVARISTO+non-probe Ql (Stl) Not detected Not Detected^Not Detected [facility] Specimen source Nom (Body fld) STOOL [facility] V. cholerae DNA EVARISTO+non-probe Ql (Stl) Not detected Not Detected^Not Detected [facility] V. cholerae+parahaemoly ticus+vulnificus DNA EVARISTO+non-probe Ql (Stl) Not detected Not Detected^Not Detected [facility] Y. enterocolitica DNA EVARISTO+non-probe Ql (Stl) Not detected Not Detected^Not Detected [facility] - Microbiology an d Antimicrobial susceptibilityon 11-08-2023 C. difficile toxin genes EVARISTO+probe Ql (Stl) Negative Presumptive Negative^Pres umptive Negative [facility] C DIFFICILE BY PCRon 024 C. difficile toxin genes EVARISTO+probe Ql (Stl) TOXIGENIC C DIFF Negative (qualifier value) 027 NAP1 Negative (qualifier value) Normal [facility] Comment on above: Performed By: #### 5 4067-4, 89733-2, 98237-4 #### [facility] ([id number]) [address] [place] [address], [address] [place] [address] Calprotectin (Stl) [Mass/Mas s]on 11-07-2023 CALPROTECTIN STOOL See Below Normal [facility] Comment on above: Result Comment: NOTE TEST RESULT FLAG UNIT REF.RANGE ----- CALPROTECTIN, FECAL QUANTITATIVE 11.9 ug/g <50 CALPROTECTIN, FECAL INTERP Normal Normal On January 23, 2023, [facility] [employer] implemented a new fecal calprotectin method, the [employer] Calprotectin assay. For assistance with interpretation of results in patients undergoing serial monitoring, contact Client Services at [phone] or [phone] to discuss options, preferably within 7 days of issuing this report. Interpretation: <50.0 ug/g: Normal 50.0 ug/g - 120.0 ug/g: Borderline elevated. Re-evaluation in 4-6 weeks is recommended if clinically indicated. >120.0 ug/g: Elevated Test Performed By: [facility] [employer] [address] [place] [address] Closer On: John Kaiser III, M.D. CLIA #[id number] Performed By: #### 5 4067-4, 64279-0, 01715-7 #### [facility] ([id number]) [address] [place] [address], [address] [place] [address] GI PANELon 11-07-2023 Gastrointestinal pathogens DNA and [...] SAPOVIRUS Not detected (qualifier value) Normal NDET [facility] Comment on above: Performed By: #### 5 4067-4, 73053-5, 80833-1 #### [facility] ([id number]) [address] [place] [address], [facility] [address] [place] [address] POCT Glucose Fingerstickon 0 10-08-2023 Glucose [Mass/Vol] 119 mg/dL Abnormal 65 - 99 mg/dL [facility] Interpretation and review of laboratory results Abnormal [facility] CBC AUTO DIFFon 11-22-2022 BASO # 0.0 103/ul Normal 0.0-0.1 [facility] Comment on above: Performed By: #### H H #### [facility] [address] [place] [address] Dr. Ron Sims Basophils/100 WBC (Bld) 0.3 % Normal 0.2-2.0 [facility] Comment on above: Performed By: #### H H #### [facility] [address] [place] [address] Dr. Ron Sims EO # 0.1 103/ul Normal 0.0-0.7 [facility] Comment on above: Performed By: #### H H #### [facility] [address] [address] [address] Ron Sims Eosinophils/100 WBC (Bld) 0.8 % Critically low 0.9-7.0 [facility] Comment on above: Performed By: #### H H #### [facility] [address] [place] [address] Dr. Ron Sims Erythrocyte distribution width (RBC) [Ratio] 13.5 % Normal 11.0-15.0 [facility] Comment on above: Performed By: #### H H #### [facility] [address] [place] [address] Dr. Ron Sims Hematocrit (Bld) [Volume fraction] 42.3 % Normal 36.0-48.0 [facility] Comment on above: Performed By: #### H H #### [facility] [address] [place] [address] Dr. Ron Sims Hemoglobin (Bld) [Mass/Vol] 13.9 g/dL Normal 12.0-16.0 [facility] Comment on above: Performed By: #### H H #### [facility] [address] [place] [address] Dr. Ron Sims IG # 0.08 10e3/ul Critically high 0.00-0.03 [facility] Comment on above: Performed By: #### H H #### [facility] [address] [place] [address] Dr. Ron Sims IG % 0.9 % Critically high 0.0-0.5 [facility] Comment on above: Performed By: #### H H #### [facility] [address] [place] [address] Dr. Ron Sims LYMPH # 0.8 103/ul Critically low 1.2-3.8 [facility] Comment on above: Performed By: #### H H #### [facility] [address] [place] [address] Dr. Ron Sims Lymphocytes/100 WBC (Bld) 9.4 % Critically low 20.5-60.0 [facility] Comment on above: Performed By: #### H H #### [facility] [address] [place] [address] Dr. Ron Sims MANUAL DIFF REQ NO Normal [facility] Comment on above: Performed By: #### H H #### [facility] [address] [place] [address] Dr. Ron Sims MCH (RBC) [Entitic mass] 26.8 pg Normal 26.7-34.0 [facility] Comment on above: Performed By: #### H H #### [facility] [address] [address] [address] Ron Sims MCHC (RBC) [Mass/Vol] 32.9 g/dL Normal 29.9-35.2 [facility] Comment on above: Performed By: #### H H #### [facility] [address] [address] [address] Ron Sims MCV (RBC) [Entitic vol] 81.7 fL Normal 81.0-99.0 [facility] Comment on above: Performed By: #### H H #### [facility] [address] [address] [address] Ron Sims MONO # 0.6 103/ul Normal 0.3-0.8 [facility] Comment on above: Performed By: #### H H #### [facility] [address] [address] [address] Ron Sims Monocytes/100 WBC (Bld) 6.3 % Normal 1.7-12.0 [facility] Comment on above: Performed By: #### H H #### [facility] [address] [address] [address] Ron Sims NEUT # 7.2 103/ul Critically high 1.4-6.5 [facility] Comment on above: Performed By: #### H H #### [facility] [address] [address] [address] Ron Sims Neutrophils/100 WBC (Bld) 82.3 % Critically high 43.0-75.0 [facility] Comment on above: Performed By: #### H H #### [facility] [address] [address] [address] Ron Sims Platelet mean volume (Bld) [Entitic vol] 8.6 fL Critically low 9.5-13.5 [facility] Comment on above: Performed By: #### H H #### [facility] [address] [address] [address] Ron Sims PLT 323 103/ul Normal 150-450 [facility] Comment on above: Performed By: #### H H #### [facility] [address] [place], [place] [address] Dr. Ron Sims RBC 5.18 106/ul Normal 4.20-5.40 [facility] Comment on above: Performed By: #### H H #### [facility] [address] [place], [place] [address] Dr. Ron Sims WBC 8.8 103/ul Normal 4.0-11.0 [facility] Comment on above: Performed By: #### H H #### [facility] [address] [place], [place] [address] Dr. Ron Sims CULTURE BLOODon 11-22-2022 Microscopic examination of blood, culture Culture Observations: NO GROWTH AT 5 DAYS. Normal [facility] Comment on above: Performed By: #### H IV12 #### [facility] [address] [place], [place] [id number] Dr. Ron Sims ECHO LIMITED STUDYon 023 ECHO LIMITED STUDY Patient: MARGARET PRIETO Exam Date: 11/22/2022 : 1990 Gender:F Ordering : DR NATHAN MAYFIELD D.O. Admission #: [id number] Family : Order #: [id number] CLICK HERE TO VIEW EXAM ECHOCARDIOGRAM REPORT [...] Aldridge M.D. on 11/22/2022 at 14:54 Normal [facility] LACTATE/LACTIC ACIDon 2022 Lactate [Moles/Vol] 1.5 mmol/L Normal 0.4-2.0 [facility] Comment on above: Performed By: #### L ACT #### [facility] [address] [place] [address] Dr. Ron Sims Lactate [Moles/Vol] 2.6 mmol/L Critically high 0.4-2.0 [facility] Comment on above: Performed By: #### L ACT #### [facility] [address] [address] [address] Ron Sims PROF CHEM 8 (BAS METB)on Anion gap [Moles/Vol] 16.8 mmol/L Normal [facility] Comment on above: Performed By: #### H H #### [facility] [address] [address] [address] oRn Sims Calcium [Mass/Vol] 8.9 mg/dL Normal 8.5-10.1 [facility] Comment on above: Performed By: #### H H #### [facility] [address] [address] [address] Ron Sims Chloride [Moles/Vol] 94 mmol/L Critically low 98-107 [facility] Comment on above: Performed By: #### H H #### [facility] [address] [address] [address] Ron Sims CO2 [Moles/Vol] 25.3 mmol/L Normal 21.0-32.0 [facility] Comment on above: Performed By: #### H H #### [facility] [address] [address] [address] Ron Sims Creatinine [Mass/Vol] 0.88 mg/dL Normal 0.55-1.02 [facility] Comment on above: Performed By: #### H H #### [facility] [address] [address] [address] Ron Sims EGFR-AF ITALIAN >60 Normal >=60 [facility] Comment on above: Performed By: #### H H #### [facility] [address] [address] [address] Ron Sims EGFR-NON AF ITALIAN >60 Normal >=60 [facility] Comment on above: Performed By: #### H H #### [facility] [address] [address] [address] Ron Sims Glucose [Mass/Vol] 112 mg/dL Critically high 74-106 [facility] Comment on above: Performed By: #### H H #### [facility] [address] [address] [address] Ron Sims Potassium [Moles/Vol] 3.1 mmol/L Critically low 3.5-5.1 [facility] Comment on above: Performed By: #### H H #### [facility] [address] [address] [address] Ron Sims Sodium [Moles/Vol] 133 mmol/L Critically low 136-145 [facility] Comment on above: Performed By: #### H H #### [facility] [address] [place] [address] Dr. Ron Sims Urea nitrogen [Mass/Vol] 12.0 mg/dL Normal 7.0-18.0 [facility] Comment on above: Performed By: #### H H #### [facility] [address] [place] [address] Dr. Ron Sims Urea nitrogen/Creatinine [Mass ratio] 13.6 mg/mg Normal [facility] Comment on above: Performed By: #### H H #### [facility] [address] [place] [address] Dr. Ron Sims PROTIMEon 11-22-2022 INR Coag (PPP) [Relative time] 2.20 {INR} Normal [facility] Comment on above: Performed By: #### P T, PTT #### [facility] [address] [place] [address] Dr. Ron Sims INR GUIDELINES SEE BELOW Normal [facility] Comment on above: Result Comment: MICHELINE RED INR: 2.0 - 3.0 CONDITIONS NOT LISTED BELOW 2.5 - 3.5 FOR PROSTHETIC HEART VALVE REPLACEMENT 2.5 - 3.5 RECURRENT THROMBOSIS Performed By: #### P T, PTT #### [facility] [address] [place] [address] Dr. Ron Sims PT Coag (PPP) [Time] 22.3 s Critically high 9.0-11.6 [facility] Comment on above: Performed By: #### P T, PTT #### [facility] [address] [place] [address] Dr. Ron Sims PTTon 11-22-2022 aPTT Coag (Bld) [Time] 48.2 s Critically high 22.3-36.2 [facility] Comment on above: Performed By: #### P T, PTT #### [facility] [address] [place] [address] Dr. Ron Sims XR CHEST 1 Von [...] SANIA TIDWELL Date: 2022-11-22 12:16 Normal [facility] POLINA EIA W/REFLEX 9 BIOMARKER Son 10-24-2022 POLINA Direct Negative Normal Negative [facility] Comment on above: Performed By: #### H IV12 #### [facility] [address] [address] [address] Ron Sims HEPATITIS C AB CASCADE TO QU ANT PCR GENOon 10-24-2022 HCV AB Non-Reactive Normal Non Reactive [facility] Comment on above: Performed By: #### H EPCASC #### [facility] [address] [address] [address] Ron Sims Interpretation: Comment Normal [facility] Comment on above: Result Comment: Not infected with HCV unless early or acute infection is suspected (which may be delayed in an immunocompromised individual), or other evidence exists to indicate HCV infection. Performed By: #### H EPCASC #### [facility] [address] [address] [address] Ron Sims HIV 1 AND 2 WITH REFLEXon HIV Screen 4th Generation wRfx Non-Reactive Normal Non Reactive [facility] Comment on above: Result Comment: HIV Negative HIV-1/HIV-2 antibodies and HIV-1 p24 antigen were NOT detected. There is no laboratory evidence of HIV infection. Performed By: #### H IV12 #### [facility] [address] [address] [address] Ron Sims CPKon 10-23-2022 CK [Catalytic activity/Vol] 36 U/L Normal 26-192 [facility] Comment on above: Performed By: #### H H #### [facility] [address] [place] [address] Dr. Ron Sims GLYCOHEMOGLOBIN A1Con 2022 ADA RECOMMENDATION SEE BELOW Normal [facility] Comment on above: Result Comment: ADA RECOMMENDED LIMIT 4.0 - 6.0 ADA THERAPEUTIC TARGET < 7.0 ACTION SUGGESTED > 7.0 Performed By: #### A 1C #### [facility] [address] [place] [address] Dr. Ron Sims Glucose [Mass/Vol] 111 mg/dL Normal [facility] Comment on above: Performed By: #### A 1C #### [facility] [address] [place] [address] Dr. Ron Sims HbA1c (Bld) [Mass fraction] 5.5 % Normal 4.5-6.2 [facility] Comment on above: Performed By: #### A 1C #### [facility] [address] [place] [address] Dr. Ron Sims HEMOGRAM AND PLATELon 2022 Hematocrit (Bld) [Volume fraction] 38.4 % Normal 36.0-48.0 [facility] Comment on above: Performed By: #### H H #### [facility] [address] [place] [address] Dr. Ron Sims Hemoglobin (Bld) [Mass/Vol] 12.6 g/dL Normal 12.0-16.0 [facility] Comment on above: Performed By: #### H H #### [facility] [address] [place] [address] Dr. Ron Sims MCH (RBC) [Entitic mass] 27.0 pg Normal 26.7-34.0 [facility] Comment on above: Performed By: #### H H #### [facility] [address] [place] [address] Dr. Ron Sims MCHC (RBC) [Mass/Vol] 32.8 g/dL Normal 29.9-35.2 [facility] Comment on above: Performed By: #### H H #### [facility] [address] [place] [address] Dr. Ron Sims MCV (RBC) [Entitic vol] 82.2 fL Normal 81.0-99.0 [facility] Comment on above: Performed By: #### H H #### [facility] [address] [place] [address] Dr. Ron Sims PLT 337 103/ul Normal 150-450 [facility] Comment on above: Performed By: #### H H #### [facility] [address] [place] [address] Dr. Ron Sims RBC 4.67 106/ul Normal 4.20-5.40 [facility] Comment on above: Performed By: #### H H #### [facility] [address] [place] [address] Dr. Ron Sims WBC 9.7 103/ul Normal 4.0-11.0 [facility] Comment on above: Performed By: #### H H #### [facility] [address] [place] [address] Dr. Ron Sims MYOGLOBINon 10-23-2022 NOEMI 51 ng/mL Normal 9-82 [facility] Comment on above: Performed By: #### H H #### [facility] [address] [place] [address] Dr. Ron Sims PROF 14(COMP METB)on 023 Albumin [Mass/Vol] 3.1 g/dL Critically low 3.4-5.0 [facility] Comment on above: Performed By: #### P T, PTT #### [facility] [address] [place] [address] Dr. Ron Sims Albumin/Globulin [Mass ratio] 0.7 {ratio} Normal [facility] Comment on above: Performed By: #### P T, PTT #### [facility] [address] [place] [address] Dr. Ron Sims ALP [Catalytic activity/Vol] 79 U/L Normal 46-116 [facility] Comment on above: Performed By: #### P T, PTT #### [facility] [address] [address] [address] Ron Sims ALT [Catalytic activity/Vol] 28 U/L Normal 14-59 [facility] Comment on above: Performed By: #### P T, PTT #### [facility] [address] [address] [address] Ron Sims Anion gap [Moles/Vol] 12.2 mmol/L Normal [facility] Comment on above: Performed By: #### P T, PTT #### [facility] [address] [address] [address] Ron Sims AST [Catalytic activity/Vol] 17 U/L Normal 15-37 [facility] Comment on above: Performed By: #### P T, PTT #### [facility] [address] [address] [address] Ron Sims Bilirubin [Mass/Vol] 0.4 mg/dL Normal 0.2-1.0 [facility] Comment on above: Performed By: #### P T, PTT #### [facility] [address] [address] [address] Ron Sims Calcium [Mass/Vol] 9.0 mg/dL Normal 8.5-10.1 [facility] Comment on above: Performed By: #### P T, PTT #### [facility] [address] [address] [address] Ron Sims Chloride [Moles/Vol] 101 mmol/L Normal 98-107 [facility] Comment on above: Performed By: #### P T, PTT #### [facility] [address] [address] [address] Ron Sims CO2 [Moles/Vol] 28.5 mmol/L Normal 21.0-32.0 [facility] Comment on above: Performed By: #### P T, PTT #### [facility] [address] [address] [address] Ron Sims Creatinine [Mass/Vol] 0.88 mg/dL Normal 0.55-1.02 [facility] Comment on above: Performed By: #### P T, PTT #### [facility] [address] [address] [address] Ron Sims EGFR-AF ITALIAN >60 Normal >=60 [facility] Comment on above: Performed By: #### P T, PTT #### [facility] [address] [address] [address] Ron Sims EGFR-NON AF ITALIAN >60 Normal >=60 [facility] Comment on above: Performed By: #### P T, PTT #### [facility] [address] [address] [address] Ron Sims Globulin (S) [Mass/Vol] 4.6 g/dL Normal [facility] Comment on above: Performed By: #### P T, PTT #### [facility] [address] [place] [address] Dr. Ron Sims Glucose [Mass/Vol] 96 mg/dL Normal 74-106 [facility] Comment on above: Performed By: #### P T, PTT #### [facility] [address] [address] [address] Ron Sims Potassium [Moles/Vol] 3.7 mmol/L Normal 3.5-5.1 The [facility] Comment on above: Performed By: #### P T, PTT #### [facility] [address] [place] [address] Dr. Ron Sims Protein [Mass/Vol] 7.7 g/dL Normal 6.4-8.2 [facility] Comment on above: Performed By: #### P T, PTT #### [facility] [address] [address] [address] Ron Sims Sodium [Moles/Vol] 138 mmol/L Normal 136-145 [facility] Comment on above: Performed By: #### P T, PTT #### [facility] [address] [address] [address] Ron Sims Urea nitrogen [Mass/Vol] 12.0 mg/dL Normal 7.0-18.0 [facility] Comment on above: Performed By: #### P T, PTT #### [facility] [address] [place] [address] Dr. Rno Sims Urea nitrogen/Creatinine [Mass ratio] 13.6 mg/mg Normal [facility] Comment on above: Performed By: #### P T, PTT #### [facility] [address] [place] [address] Dr. Ron Sims TSHon 10-23-2022 TSH 2.891 uIU/mL Normal 0.358-3.740 [facility] Comment on above: Performed By: #### P T, PTT #### [facility] [address] [place] [address] Dr. Ron Sims VITAMIN B12on 10-23-2022 Cobalamin (Vitamin B12) [Mass/Vol] 618.0 pg/mL Normal 193.0-986.0 [facility] Comment on above: Performed By: #### H H #### [facility] [address] [place] [address] Dr. Ron Sims VITAMIN D 25 OHon 10-23-2022 VIT D 25-OH 18.0 ng/mL Normal [facility] Comment on above: Performed By: #### H H #### [facility] [address] [place] [address] Dr. Ron Sims VIT D RANGES SEE BELOW Normal [facility] Comment on above: Result Comment: <20 ng/mL Vit D deficient 20 - <30 ng/mL Vit D insufficient 30 - 100 ng/mL Vit D sufficient >100 ng/mL Potential Toxicity Performed By: #### H H #### [facility] [address] [place] [address] Dr. Ron Sims CBC AUTO DIFFon 09-26-2022 BASO # 0.0 103/ul Normal 0.0-0.1 [facility] Comment on above: Performed By: #### H H #### [facility] [address] [place] [address] Dr. Ron Sims Basophils/100 WBC (Bld) 0.5 % Normal 0.2-2.0 [facility] Comment on above: Performed By: #### H H #### [facility] [address] [place] [address] Dr. Ron Sims EO # 0.1 103/ul Normal 0.0-0.7 [facility] Comment on above: Performed By: #### H H #### [facility] [address] [place] [address] Dr. Ron Sims Eosinophils/100 WBC (Bld) 1.5 % Normal 0.9-7.0 [facility] Comment on above: Performed By: #### H H #### [facility] [address] [place] [address] Dr. Ron Sims Erythrocyte distribution width (RBC) [Ratio] 13.3 % Normal 11.0-15.0 [facility] Comment on above: Performed By: #### H H #### [facility] [address] [place] [address] Dr. Ron Sims Hematocrit (Bld) [Volume fraction] 41.3 % Normal 36.0-48.0 [facility] Comment on above: Performed By: #### H H #### [facility] [address] [place] [address] Dr. Ron Sims Hemoglobin (Bld) [Mass/Vol] 13.6 g/dL Normal 12.0-16.0 [facility] Comment on above: Performed By: #### H H #### [facility] [address] [place] [address] Dr. Ron Sims IG # 0.03 10e3/ul Normal 0.00-0.03 [facility] Comment on above: Performed By: #### H H #### [facility] [address] [place] [address] Dr. Ron Sims IG % 0.3 % Normal 0.0-0.5 [facility] Comment on above: Performed By: #### H H #### [facility] [address] [place] [address] Dr. Ron Sims LYMPH # 1.5 103/ul Normal 1.2-3.8 [facility] Comment on above: Performed By: #### H H #### [facility] [address] [place] [address] Dr. Ron Sims Lymphocytes/100 WBC (Bld) 16.9 % Critically low 20.5-60.0 [facility] Comment on above: Performed By: #### H H #### [facility] [address] [place] [address] Dr. Ron Sims MANUAL DIFF REQ NO Normal [facility] Comment on above: Performed By: #### H H #### [facility] [address] [place] [address] Dr. Ron Sims MCH (RBC) [Entitic mass] 27.7 pg Normal 26.7-34.0 [facility] Comment on above: Performed By: #### H H #### [facility] [address] [place] [address] Dr. Ron Sims MCHC (RBC) [Mass/Vol] 32.9 g/dL Normal 29.9-35.2 [facility] Comment on above: Performed By: #### H H #### [facility] [address] [place] [address] Dr. Ron Sims MCV (RBC) [Entitic vol] 84.1 fL Normal 81.0-99.0 [facility] Comment on above: Performed By: #### H H #### [facility] [address] [place] [address] Dr. Ron Sims MONO # 0.5 103/ul Normal 0.3-0.8 [facility] Comment on above: Performed By: #### H H #### [facility] [address] [place] [address] Dr. Ron Sims Monocytes/100 WBC (Bld) 5.4 % Normal 1.7-12.0 [facility] Comment on above: Performed By: #### H H #### [facility] [address] [place] [address] Dr. Ron Sims NEUT # 6.5 103/ul Normal 1.4-6.5 [facility] Comment on above: Performed By: #### H H #### [facility] [address] [place] [address] Dr. Ron Sims Neutrophils/100 WBC (Bld) 75.4 % Critically high 43.0-75.0 [facility] Comment on above: Performed By: #### H H #### [facility] [address] [place] [address] Dr. Ron Sims Platelet mean volume (Bld) [Entitic vol] 9.0 fL Critically low 9.5-13.5 [facility] Comment on above: Performed By: #### H H #### [facility] [address] [place] [address] Dr. Ron Sims PLT 261 103/ul Normal 150-450 [facility] Comment on above: Performed By: #### H H #### [facility] [address] [place] [address] Dr. Ron Sims RBC 4.91 106/ul Normal 4.20-5.40 [facility] Comment on above: Performed By: #### H H #### [facility] [address] [place] [address] Dr. Ron Sims WBC 8.7 103/ul Normal 4.0-11.0 [facility] Comment on above: Performed By: #### H H #### [facility] [address] [place] [address] Dr. Ron Sims CRPon 09-26-2022 CRP 0.4 mg/dL Normal <=1.0 [facility] Comment on above: Performed By: #### P T, PTT #### [facility] [address] [place] [address] HEAD WO CONon [...] by: DEREK MIRELES Date: 2022-09-26 20:09 Normal [facility] CTA HEAD WO W CONon 09-26-19 23 [...] by: DEREK MIRELES Date: 2022-09-26 21:26 Normal [facility] PROF CHEM 8 (BAS METB)on Anion gap [Moles/Vol] 11.2 mmol/L Normal [facility] Comment on above: Performed By: #### P T, PTT #### [facility] [address] [address] [address] Ron Sims Calcium [Mass/Vol] 9.1 mg/dL Normal 8.5-10.1 [facility] Comment on above: Performed By: #### P T, PTT #### [facility] [address] [address] [address] Ron Sims Chloride [Moles/Vol] 101 mmol/L Normal 98-107 [facility] Comment on above: Performed By: #### P T, PTT #### [facility] [address] [address] [address] Ron Sims CO2 [Moles/Vol] 28.0 mmol/L Normal 21.0-32.0 [facility] Comment on above: Performed By: #### P T, PTT #### [facility] [address] [address] [address] Ron Sims Creatinine [Mass/Vol] 0.85 mg/dL Normal 0.55-1.02 [facility] Comment on above: Performed By: #### P T, PTT #### [facility] [address] [address] [address] Ron Sims EGFR-AF ITALIAN >60 Normal >=60 [facility] Comment on above: Performed By: #### P T, PTT #### [facility] [address] [address] [address] Ron Sims EGFR-NON AF ITALIAN >60 Normal >=60 [facility] Comment on above: Performed By: #### P T, PTT #### [facility] [address] [address] [address] Ron Sims Glucose [Mass/Vol] 106 mg/dL Normal 74-106 [facility] Comment on above: Performed By: #### P T, PTT #### [facility] [address] [address] [address] Ron Sims Potassium [Moles/Vol] 4.2 mmol/L Normal 3.5-5.1 [facility] Comment on above: Performed By: #### P T, PTT #### [facility] [address] [address] [address] Ron Sims Sodium [Moles/Vol] 136 mmol/L Normal 136-145 [facility] Comment on above: Performed By: #### P T, PTT #### [facility] [address] [address] [address] Ron Sims Urea nitrogen [Mass/Vol] 15.0 mg/dL Normal 7.0-18.0 [facility] Comment on above: Performed By: #### P T, PTT #### [facility] [address] [address] [address] Ron Sims Urea nitrogen/Creatinine [Mass ratio] 17.6 mg/mg Normal [facility] Comment on above: Performed By: #### P T, PTT #### [facility] [address] [place], [place] [address] Dr. Ron Sims SED RATE WESTERGRENon 2022 SED RATE 58 mm/hr Critically high <=20 [facility] Comment on above: Performed By: #### S EDR #### [facility] [address] [address] [address] Ron iSms PREG HCG QUALon 09-05-2022 , QUAL Negative Normal NEGATIVE [facility] Comment on above: Performed By: #### P REG #### [facility] [address] [address] [address] Ron Sims ABO and Rh group post transf usion reaction Nom (Bld)Ordered By: John Carlson on 04-11-2022 Microscopic observation Gram stain Nom (Unsp spec) [facility] Aerobic Cultureon 04-10-2022 Aerobic Culture Result Tab Codes Rare Normal Skin Keerthi 2 Days Anaerobic Culture Results No Anaerobes Isolated 3 Days Gram Stain Result No Bacteria Seen PERFORMED BY: [place] [address] PATHOLOGIST SENIOR PROJECT LEADER/TEAM LEAD JACQUIE CRABTREE M.D. Normal [facility] Comment on above: Performed By: #### A ERC #### [facility] [address] [place] [address] [place] HCG ( test) IA.rapi d Ql (U)Ordered By: Katya Vasques on 04-10-2022 HCG ( test) Ql (U) Negative [facility] HCG,Qualitative Serumon HCG,Qualitative Serum Negative Normal [facility] Comment on above: Result Comment: PERF ORMED BY: [place] [address] PATHOLOGIST SENIOR PROJECT LEADER/TEAM LEAD JACQUIE CRABTREE M.D. Performed By: #### U HCG #### [facility] [address] [place], [place] [id number] [facility] COVID-19 FRMCon 04-06-2022 SARS-CoV-2 (COVID-19) RNA EVARISTO+probe Ql (Unsp spec) Negative Normal Negative [facility] Comment on above: Order Comment: Healt hcare Worker?: N Result Comment: Testing for SARS-CoV-2 by RT-PCR This test was developed and its performance characteristics determined by [employer] ([employer]) and validated at the [facility]. This test has not been FDA [...] is terminated or revoked sooner. PERFORMED BY: [place] [address] PATHOLOGIST SENIOR PROJECT LEADER/TEAM LEAD JACQUIE CRABTREE M.D. Performed By: #### U HCG #### [address] COVID-19 Positive/NegativeOr dered By: John Carlson on 04-06-2022 SARS-CoV-2 (COVID-19) N gene EVARISTO+probe Ql (Resp) Negative Negative [facility] Comment on above: Testing for SARS-CoV -2 by RT-PCR This test was developed and its performance characteristics determined by [employer] ([employer]) and validated at the [facility]. This test has not been FDA [...] on 03-30-2022 Albumin [Mass/Vol] 3.1 g/dL 3.2-5.5 [facility] Basophils Auto (Bld) [#/Vol] Ordered By: Dominique Garrison on 03-30-2022 Basophils (Bld) [#/Vol] 0.1 10*3/uL 0.0-0.2 [facility] Basophils/100 WBC Auto (Bld) Ordered By: Dominique Garrison on 03-30-2022 Basophils/100 WBC (Bld) 0.6 % . [facility] Blood hemoglobin measurement (mass/volume)Ordered By: Dominique Garrison on 03-30-2022 Hemoglobin (Bld) [Mass/Vol] 13.3 g/dL 11.8-15.4 [facility] Blood leukocytes automated c ount (number/volume)Ordered By: Dominique Garrison on 03-30-2022 WBC (Bld) [#/Vol] 10.7 10*3/uL 4.5-11.0 [facility] Complete Blood Count Auto Di ffon 03-30-2022 Basophils (Bld) [#/Vol] 0.1 10*3/uL Normal 0.0-0.2 [facility] Comment on above: Result Comment: PERF ORMED BY: [facility] [address] [place] [address] PATHOLOGIST SENIOR PROJECT LEADER/TEAM LEAD JACQUIE CRABTREE M.D. Performed By: #### C BC, CMP, T SPOT TB #### [facility] [address] [place] [address] #### HCVCASCADE, HBSAB, HBCAB #### [facility] , Basophils/100 WBC (Bld) 0.6 % Normal . [facility] Comment on above: Performed By: #### C BC, CMP, T SPOT TB #### [facility] [address] [place] [address] #### HCVCASCADE, HBSAB, HBCAB #### [facility] , Eosinophils (Bld) [#/Vol] 0.2 10*3/uL Normal 0.0-0.45 [facility] Comment on above: Performed By: #### C BC, CMP, T SPOT TB #### [address] #### HCVCASCADE, HBSAB, HBCAB #### [facility] , Eosinophils/100 WBC (Bld) 1.5 % Normal . [facility] Comment on above: Performed By: #### C BC, CMP, T SPOT TB #### [facility] [address] [place] [address] #### HCVCASCADE, HBSAB, HBCAB #### [facility] , Erythrocyte distribution width (RBC) [Ratio] 14.2 % Normal 11.9-15.3 [facility] Comment on above: Performed By: #### C BC, CMP, T SPOT TB #### [facility] [address] [place] [address] [place] #### HCVCASCADE, HBSAB, HBCAB #### [facility] , Hematocrit (Bld) [Volume fraction] 39.6 % Normal 34.0-46.4 [facility] Comment on above: Performed By: #### C BC, CMP, T SPOT TB #### [place] [address] [place] #### HCVCASCADE, HBSAB, HBCAB #### [facility] , Hemoglobin (Bld) [Mass/Vol] 13.3 g/dL Normal 11.8-15.4 [facility] Comment on above: Performed By: #### C BC, CMP, T SPOT TB #### [address] #### HCVCASCADE, HBSAB, HBCAB #### [facility] , Lymphocytes (Bld) [#/Vol] 1.7 10*3/uL Normal 1.00-4.8 [facility] Comment on above: Performed By: #### C BC, CMP, T SPOT TB #### [facility] [address] [place] [address] #### HCVCASCADE, HBSAB, HBCAB #### [facility] , Lymphocytes/100 WBC (Bld) 16.0 % Normal . [facility] Comment on above: Performed By: #### C BC, CMP, T SPOT TB #### [address] #### HCVCASCADE, HBSAB, HBCAB #### [facility] , MCH (RBC) [Entitic mass] 26.8 pg Normal 24.7-34.3 [facility] Comment on above: Performed By: #### C BC, CMP, T SPOT TB #### [facility] [address] [place] [address] #### HCVCASCADE, HBSAB, HBCAB #### [facility] , MCV (RBC) [Entitic vol] 79.6 fL Low 80-100 [facility] Comment on above: Performed By: #### C BC, CMP, T SPOT TB #### [address] #### HCVCASCADE, HBSAB, HBCAB #### [facility] , Mean Corpuscular HGB Conc 33.7 g/dL Normal 32.0-35.0 [facility] Comment on above: Performed By: #### C BC, CMP, T SPOT TB #### [facility] [address] [place] [address] [place] #### HCVCASCADE, HBSAB, HBCAB #### [facility] , Monocytes (Bld) [#/Vol] 0.7 10*3/uL Normal 0.0-0.8 [facility] Comment on above: Performed By: #### C BC, CMP, T SPOT TB #### [facility] [address] [place] [address] #### HCVCASCADE, HBSAB, HBCAB #### [facility] , Monocytes/100 WBC (Bld) 6.4 % Normal . [facility] Comment on above: Performed By: #### C BC, CMP, T SPOT TB #### [facility] [address] [place] [address] [place] #### HCVCASCADE, HBSAB, HBCAB #### [facility] , Neutrophils (Bld) [#/Vol] 8.0 10*3/uL High 1.8-7.7 [facility] Comment on above: Performed By: #### C BC, CMP, T SPOT TB #### [facility] [address] [place] [address] #### HCVCASCADE, HBSAB, HBCAB #### [facility] , Neutrophils/100 WBC (Bld) 75.5 % Normal . [facility] Comment on above: Performed By: #### C BC, CMP, T SPOT TB #### [facility] [address] [place] [address] [place] #### HCVCASCADE, HBSAB, HBCAB #### [facility] , Nucleated RBC/100 WBC (Bld) [Ratio] 0.1 % Normal 0-0.5 [facility] Comment on above: Performed By: #### C BC, CMP, T SPOT TB #### [address] #### HCVCASCADE, HBSAB, HBCAB #### [facility] , Platelet mean volume (Bld) [Entitic vol] 7.3 fL Normal 6.3-10.7 [facility] Comment on above: Performed By: #### C BC, CMP, T SPOT TB #### [facility] [address] [place] [address] #### HCVCASCADE, HBSAB, HBCAB #### [facility] , Platelets (Bld) [#/Vol] 376 10*3/uL Normal 150-450 [facility] Comment on above: Performed By: #### C BC, CMP, T SPOT TB #### [address] #### HCVCASCADE, HBSAB, HBCAB #### [facility] , RBC (Bld) [#/Vol] 4.97 10*6/uL Normal 3.60-5.00 [facility] Comment on above: Performed By: #### C BC, CMP, T SPOT TB #### [address] #### HCVCASCADE, HBSAB, HBCAB #### [facility] , WBC (Bld) [#/Vol] 10.7 10*3/uL Normal 4.5-11.0 [facility] Comment on above: Performed By: #### C BC, CMP, T SPOT TB #### [address] #### HCVCASCADE, HBSAB, HBCAB #### [facility] , Comprehensive Metabolic Pane mikey 03-30-2022 Albumin [Mass/Vol] 3.1 g/dL Low 3.2-5.5 [facility] Comment on above: Performed By: #### U HCG #### [address] Albumin/Globulin [Mass ratio] 0.8 {ratio} Normal [facility] Comment on above: Performed By: #### U HCG #### [facility] [address] [place] [address] ALP [Catalytic activity/Vol] 66 U/L Normal 32-92 [facility] Comment on above: Result Comment: PERF ORMED BY: [place] [address] PATHOLOGIST SENIOR PROJECT LEADER/TEAM LEAD JACQUIE CRABTREE M.D. Performed By: #### U HCG #### [facility] [address] [place] [address] ALT [Catalytic activity/Vol] 24 U/L Normal 10-60 [facility] Comment on above: Performed By: #### U HCG #### [address] AST [Catalytic activity/Vol] 20 U/L Normal 10-42 [facility] Comment on above: Performed By: #### U HCG #### [facility] [address] [place] [address] Bilirubin [Mass/Vol] 0.5 mg/dL Normal 0.3-1.2 [facility] Comment on above: Performed By: #### U HCG #### [facility] [address] [place] [address] Calcium [Mass/Vol] 8.5 mg/dL Normal 8.2-10.2 [facility] Comment on above: Performed By: #### U HCG #### [facility] [address] [place] [address] [place] Chloride [Moles/Vol] 105 mmol/L Normal 95-114 [facility] Comment on above: Performed By: #### U HCG #### [facility] [address] [place] [address] [place] CO2 [Moles/Vol] 23.0 mmol/L Normal 22.0-30.0 [facility] Comment on above: Performed By: #### U HCG #### [facility] [address] [place] [address] [place] Creatinine [Mass/Vol] 0.74 mg/dL Normal 0.44-1.03 [facility] Comment on above: Performed By: #### U HCG #### [place] [address] [place] Estimated GFR ( Vinh > 60 Normal [facility] Comment on above: Result Comment: GFR estimated reference range: According to KDOQI guidelines, <60 ml/min/1.73m2 is sufficient to diagnose a patient with chronic kidney disease. Performed By: #### U HCG #### [place] [address] [place] Estimated GFR (Non- Am > 60 Normal [facility] Comment on above: Performed By: #### U HCG #### [address] Globulin (S) [Mass/Vol] 4.1 g/dL Normal [facility] Comment on above: Performed By: #### U HCG #### [address] Glucose [Mass/Vol] 97 mg/dL Normal 70-100 [facility] Comment on above: Result Comment: [place] om Glucose Reference Range is dependent on time and content of last meal. Glucose of more than 200 mg/dL in a nonstressed, ambulatory subject supports the diagnosis of Diabetes Mellitus. ADA recommended reference range Performed By: #### U HCG #### [address] Potassium [Moles/Vol] 3.8 mmol/L Normal 3.5-5.1 [facility] Comment on above: Performed By: #### U HCG #### [place] [address] [place] Protein [Mass/Vol] 7.2 g/dL Normal 6.1-7.9 [facility] Comment on above: Performed By: #### U HCG #### [place] [address] [place] Sodium [Moles/Vol] 136 mmol/L Normal 136-146 [facility] Comment on above: Performed By: #### U HCG #### [facility] [address] [place] [address] [place] Urea nitrogen [Mass/Vol] 9 mg/dL Normal 9- [facility] Comment on above: Performed By: #### U HCG #### [facility] [address] [place] [address] [place] Creatinine and Glomerular fi ltration rate.predicted panel (S/P/Bld)Ordered By: Dominique Garrison on 03-30-2022 Creatinine [Mass/Vol] 0.74 mg/dL 0.44-1.03 [facility] Eosinophils Auto (Bld) [#/Vo l]Ordered By: Dominique Garrison on 03-30-2022 Eosinophils (Bld) [#/Vol] 0.2 10*3/uL 0.0-0.45 [facility] Eosinophils/100 WBC Auto (Bl d)Ordered By: Dominique Garrison on 03-30-2022 Eosinophils/100 WBC (Bld) 1.5 % . [facility] Erythrocyte distribution wid th Auto (RBC) [Ratio]Ordered By: Dominique Garrison on 03-30-2022 Erythrocyte distribution width (RBC) [Ratio] 14.2 % 11.9-15.3 [facility] Estimated glomerular filtrat ion rate (GFR) non- AmericanOrdered By: Dominique Garrison on 03-30-2022 GFR/1.73 sq M.predicted among non-blacks MDRD (S/P/Bld) [Vol rate/Area] > 60 mL/Min [facility] Globulin Calc (S) [Mass/Vol] Ordered By: Dominique Garrison on 03-30-2022 Globulin (S) [Mass/Vol] 4.1 g/dL [facility] HCV Antibody Cascadeon 03-30 Hepatitis C Virus Antibody 0.2 Normal 0.0-0.9 [facility] Comment on above: Performed By: #### U HCG #### [facility] [address] Interpretation Hepatitis C Normal . [facility] Comment on above: Result Comment: Nega tive Not infected with HCV, unless recent infection is suspected or other evidence exists to indicate HCV infection. Performed By: #### U HCG #### [address] Hematocrit Auto (Bld) [Volum e fraction]Ordered By: Dominique Garrison on 03-30-2022 Hematocrit (Bld) [Volume fraction] 39.6 % 34.0-46.4 [facility] Hepatitis B Core Antibodyon 03-30-2022 Hepatitis B Core Antibody Negative Normal Negative [facility] Comment on above: Result Comment: Perf ormed at: CB - [facility] [address] [id number] Marketing Proposal Specialist: Tarun Almanzar PhD, Phone: [phone] PERFORMED BY: [place] [address] PATHOLOGIST SENIOR PROJECT LEADER/TEAM LEAD JACQUIE CRABTREE M.D. Performed By: #### U HCG #### [address] Hepatitis B Surface Antibody on 03-30-2022 Hepatitis B Surface Antibody Reactive Normal . [facility] Comment on above: Result Comment: Non Reactive: Inconsistent with immunity, less than 10 mIU/mL Reactive: Consistent with immunity, greater than 9.9 mIU/mL Performed By: #### U HCG #### [address] Hepatitis C virus RNA [Units /volume] (viral load) in Serum or Plasma by EVARISTO with probOrdered By: Dominique Garrison on 03-30-2022 HCV RNA EVARISTO+probe Qn N/A [facility] Hepatitis C virus RNA [log u nits/volume] (viral load) in Serum or Plasma by EVARISTO withOrdered By: Dominique Garrison on 03-30-2022 HCV RNA EVARISTO+probe [Log units/Vol] N/A [facility] Laboratory - Hematology and Cell countsOrdered By: Dominique Garrison on 03-30-2022 Nucleated RBC/100 WBC (Bld) [Ratio] 0.1 % 0-0.5 [facility] Lymphocytes Auto (Bld) [#/Vo l]Ordered By: Dominique Garrison on 03-30-2022 Lymphocytes (Bld) [#/Vol] 1.7 10*3/uL 1.00-4.8 [facility] Lymphocytes/100 WBC Auto (Bl d)Ordered By: Dominique Garrison on 03-30-2022 Lymphocytes/100 WBC (Bld) 16.0 % . [facility] MCH Auto (RBC) [Entitic mass ]Ordered By: Dominique Garrison on 03-30-2022 MCH (RBC) [Entitic mass] 26.8 pg 24.7-34.3 [facility] MCHC Auto (RBC) [Mass/Vol]Or dered By: Dominique Garrison on 03-30-2022 MCHC (RBC) [Mass/Vol] 33.7 g/dL 32.0-35.0 [facility] MCV Auto (RBC) [Entitic vol] Ordered By: Dominique Garrison on 03-30-2022 MCV (RBC) [Entitic vol] 79.6 fL 80-100 [facility] Monocytes Auto (Bld) [#/Vol] Ordered By: Dominique Garrison on 03-30-2022 Monocytes (Bld) [#/Vol] 0.7 10*3/uL 0.0-0.8 [facility] Monocytes/100 WBC Auto (Bld) Ordered By: Dominique Garrison on 03-30-2022 Monocytes/100 WBC (Bld) 6.4 % . [facility] Neutrophils Auto (Bld) [#/Vo l]Ordered By: Dominique Garrison on 03-30-2022 Neutrophils (Bld) [#/Vol] 8.0 10*3/uL 1.8-7.7 [facility] Neutrophils/100 WBC Auto (Bl d)Ordered By: Dominique Garrison on 03-30-2022 Neutrophils/100 WBC (Bld) 75.5 % . [facility] No Panel InformationOrdered By: Dominique Garrison on 03-30-2022 Estimated GFR () > 60 mL/Min [facility] Comment on above: GFR estimated refere nce range: According to KDOQI guidelines, <60 ml/min/1.73m2 is sufficient to diagnose a patient with chronic kidney disease. Hepatitis B Core Total Antibody Negative Negative [facility] Comment on above: Performed at: CB - L [address] [id number] Marketing Proposal Specialist: Tarun Almanzar PhD, Phone: [phone] Hepatitis C Interpretation See comment . [facility] Comment on above: Negative Not infected with HCV, unless recent infection is suspected or other evidence exists to indicate HCV infection. Hepatitis C RNA Quantitative N/A [facility] Pharmacy Creatinine Clearance (Chem N/A [facility] TB Test (T-Spot) . [facility] Comment on above: See report. Scanned copy available in EMR. Platelet mean volume Auto (B ld) [Entitic vol]Ordered By: Dominique Garrison on 03-30-2022 Platelet mean volume (Bld) [Entitic vol] 7.3 fL 6.3-10.7 [facility] Platelets Auto (Bld) [#/Vol] Ordered By: Dominique Garrison on 03-30-2022 Platelets (Bld) [#/Vol] 376 10*3/uL 150-450 [facility] Protein [Mass/volume] in Ser um or PlasmaOrdered By: Dominique Garrison on 03-30-2022 Protein [Mass/Vol] 7.2 g/dL 6.1-7.9 [facility] RBC Auto (Bld) [#/Vol]Ordere d By: Dominique Garrison on 03-30-2022 RBC (Bld) [#/Vol] 4.97 10*6/uL 3.60-5.00 [facility] Serum hepatitis B virus surf mary antibody detectionOrdered By: Dominique Garrison on 03-30-2022 HBV surface Ab Ql (S) Reactive . [facility] Comment on above: Non Reactive: Incons istent with immunity, less than 10 mIU/mL Reactive: Consistent with immunity, greater than 9.9 mIU/mL Serum or plasma alanine block otransferase measurement without P-5'-P (enzymatic activiOrdered By: Dominique Garrison on 03-30-2022 ALT No additional P-5'-P [Catalytic activity/Vol] 24 U/L 10-60 [facility] Serum or plasma albumin/glob ulin mass ratioOrdered By: Dominique Garrison on 03-30-2022 Albumin/Globulin [Mass ratio] 0.8 {ratio} [facility] Serum or plasma alkaline james sphatase measurement (enzymatic activity/volume)Ordered By: Dominique Garrison on 03-30-2022 ALP [Catalytic activity/Vol] 66 U/L 32-92 [facility] Serum or plasma aspartate am inotransferase measurement (enzymatic activity/volume)Ordered By: Dominique Garrison on 03-30-2022 AST [Catalytic activity/Vol] 20 U/L 10-42 [facility] Serum or plasma calcium seema urement (mass/volume)Ordered By: Dominique Garrison on 03-30-2022 Calcium [Mass/Vol] 8.5 mg/dL 8.2-10.2 [facility] Serum or plasma chloride laura surement (moles/volume)Ordered By: Dominique Garrison on 03-30-2022 Chloride [Moles/Vol] 105 mmol/L 95-114 [facility] Serum or plasma glucose seema urement (mass/volume)Ordered By: Dominique Garrison on 03-30-2022 Glucose [Mass/Vol] 97 mg/dL 70-100 [facility] Comment on above: ADA recommended refe [...] IA [Rel units/Vol] 0.2 s/co ratio 0.0-0.9 [facility] Serum or plasma potassium me asurement (moles/volume)Ordered By: Dominique Garrison on 03-30-2022 Potassium [Moles/Vol] 3.8 mmol/L 3.5-5.1 [facility] Serum or plasma sodium measu rement (moles/volume)Ordered By: Dominique Garrison on 03-30-2022 Sodium [Moles/Vol] 136 mmol/L 136-146 [facility] Serum or plasma total biliru bin measurement (mass/volume)Ordered By: Dominique Garrison on 03-30-2022 Bilirubin [Mass/Vol] 0.5 mg/dL 0.3-1.2 [facility] Serum or plasma total carbon dioxide measurement (moles/volume)Ordered By: Dominique Garrison on 03-30-2022 CO2 [Moles/Vol] 23.0 mmol/L 22.0-30.0 [facility] Serum or plasma urea nitroge n measurement (mass/volume)Ordered By: Dominique Garrison on 03-30-2022 Urea nitrogen [Mass/Vol] 9 mg/dL 05-26 [facility] T SPOT TB TESTon 03-30-2022 T SPOT TB TEST . Normal [facility] Comment on above: Result Comment: See report. Scanned copy available in EMR. PERFORMED BY: [place] [address] PATHOLOGIST SENIOR PROJECT LEADER/TEAM LEAD JACQUIE CRABTREE M.D. Performed By: #### U HCG #### [address] Bacteria identified Anaer cx Nom (Unsp spec)Ordered By: John Carlson on 03-29-2022 Anaerobic Culture Prevotella bivia F [facility] Bacteria identified Aer cx N om (Unsp spec)Ordered By: John Carlson on 03-15-2022 Aerobic Culture Strep. agalactiae Gr p B [facility] ABO and Rh group post transf usion reaction Nom (Bld)Ordered By: John Carlson on 03-14-2022 Microscopic observation Gram stain Nom (Unsp spec) [facility] Aerobic Cultureon 03-13-2022 Aerobic Culture Comment Right Labial Abscess ORGANISM: Strep. agalactiae Grp B (O:B) Quantity of Growth Moderate Growth Comment Right Labial Abscess ORGANISM: Prevotella bivia (O:PREBIV) Comments Sent to [facility] for Testing Quantity of Growth Moderate Growth PREVOTELLA BIVIA (A) Testing done at [facility] Organism sent to [facility] for susceptibililty testing. Minimum inhibitory concentration (ug/ml) Meropenem 0.12 Ampicillin/Sulbactam 2/1 Piperacillin/Tazobact am <=1/4 Penicillin 16 Metronidazole 4 Clindamycin >=32 [...] Cells Rare Gram Positive Cocci PERFORMED BY: [place] [address] PATHOLOGIST SENIOR PROJECT LEADER/TEAM LEAD JACQUIE CRABTREE M.D. [facility] Comment on above: Performed By: #### C OVID 19 [facility] [place] #### [facility] [address] Basic Metabolic Panelon 03-03 Calcium [Mass/Vol] 8.9 mg/dL Normal 8.2-10.2 [facility] Comment on above: Performed By: #### B MP #### [facility] [address] [place] [address] [place] Chloride [Moles/Vol] 98 mmol/L Normal 95-114 [facility] Comment on above: Performed By: #### B MP #### [place] [address] [place] CO2 [Moles/Vol] 24.4 mmol/L Normal 22.0-30.0 [facility] Comment on above: Performed By: #### B MP #### [address] Creatinine [Mass/Vol] 0.77 mg/dL Normal 0.44-1.03 [facility] Comment on above: Performed By: #### B MP #### [facility] [address] [place] [address] [place] Creatinine Clr Calc Pharmacy 159.38 [facility] Comment on above: Result Comment: PERF ORMED BY: [place] [address] PATHOLOGIST SENIOR PROJECT LEADER/TEAM LEAD JACQUIE CRABTREE M.D. Performed By: #### B MP #### [facility] [address] [place] [address] [place] Estimated GFR ( Vinh > 60 Normal [facility] Comment on above: Result Comment: GFR estimated reference range: According to KDOQI guidelines, <60 ml/min/1.73m2 is sufficient to diagnose a patient with chronic kidney disease. Performed By: #### B MP #### [facility] [address] [place] [address] [place] Estimated GFR (Non- Am > 60 Normal [facility] Comment on above: Performed By: #### B MP #### [facility] [address] Glucose [Mass/Vol] 95 mg/dL Normal 70-100 [facility] Comment on above: Result Comment: [place] Glucose Reference Range is dependent on time and content of last meal. Glucose of more than 200 mg/dL in a nonstressed, ambulatory subject supports the diagnosis of Diabetes Mellitus. ADA recommended reference range Performed By: #### B MP #### [facility] [address] Potassium [Moles/Vol] 3.8 mmol/L Normal 3.5-5.1 [facility] Comment on above: Performed By: #### B MP #### [facility] [address] [place] [address] [place] Sodium [Moles/Vol] 133 mmol/L Low 136-146 [facility] Comment on above: Performed By: #### B MP #### [facility] [address] [place] [address] [place] Urea nitrogen [Mass/Vol] 7 mg/dL Low 9-23 [facility] Comment on above: Performed By: #### B MP #### [facility] [address] [place] [address] [place] Creatinine and Glomerular fi ltration rate.predicted panel (S/P/Bld)Ordered By: KATYA SIMENTAL on 03-13-2022 Creatinine [Mass/Vol] 0.77 mg/dL 0.44-1.03 [facility] Estimated glomerular filtrat ion rate (GFR) non- AmericanOrdered By: KATYA SIMENTAL on 03-13-2022 GFR/1.73 sq M.predicted among non-blacks MDRD (S/P/Bld) [Vol rate/Area] > 60 mL/Min [facility] HCG ( test) IA.rapi d Ql (U)Ordered By: KATYA SIMENTAL on 03-13-2022 HCG ( test) Ql (U) Negative [facility] HCG,Urineon 03-13-2022 Beta HCG ( test) Ql (U) Negative Normal [facility] Comment on above: Result Comment: PERF ORMED BY: [facility] [address] [place] [address] PATHOLOGIST SENIOR PROJECT LEADER/TEAM LEAD JACQUIE CRABTREE M.D. Performed By: #### U HCG #### [address] No Panel InformationOrdered By: KATYA SIMENTAL on 03-13-2022 Estimated GFR () > 60 mL/Min [facility] Comment on above: GFR estimated refere nce range: According to KDOQI guidelines, <60 ml/min/1.73m2 is sufficient to diagnose a patient with chronic kidney disease. Pharmacy Creatinine Clearance (Chem 159.38 [facility] Serum or plasma calcium seema urement (mass/volume)Ordered By: KATYA SIMENTAL on 03-13-2022 Calcium [Mass/Vol] 8.9 mg/dL 8.2-10.2 [facility] Serum or plasma chloride laura surement (moles/volume)Ordered By: KATYA SIMENTAL on 03-13-2022 Chloride [Moles/Vol] 98 mmol/L 95-114 [facility] Serum or plasma glucose seema urement (mass/volume)Ordered By: KATYA SIMENTAL on 03-13-2022 Glucose [Mass/Vol] 95 mg/dL 70-100 [facility] Comment on above: ADA recommended refe rence range Random Glucose Reference Range is dependent on time and content of last meal. Glucose of more than 200 mg/dL in a nonstressed, ambulatory subject supports the diagnosis of Diabetes Mellitus. Serum or plasma potassium me asurement (moles/volume)Ordered By: KATYA SIMENTAL on 03-13-2022 Potassium [Moles/Vol] 3.8 mmol/L 3.5-5.1 [facility] Serum or plasma sodium measu rement (moles/volume)Ordered By: KATYA SIMENTAL on 03-13-2022 Sodium [Moles/Vol] 133 mmol/L 136-146 [facility] Serum or plasma total carbon dioxide measurement (moles/volume)Ordered By: KATYA SIMENTAL on 03-13-2022 CO2 [Moles/Vol] 24.4 mmol/L 22.0-30.0 [facility] Serum or plasma urea nitroge n measurement (mass/volume)Ordered By: KATYA SIMENTAL on 03-13-2022 Urea nitrogen [Mass/Vol] 7 mg/dL 9 [facility] COVID-19 FRon 03-09-2022 SARS-CoV-2 (COVID-19) RNA EVARISTO+probe Ql (Unsp spec) Negative Normal Negative [facility] Comment on above: Order Comment: Healt hcare Worker?: N Result Comment: Testing for SARS-CoV-2 by RT-PCR This test was developed and its performance characteristics determined by [employer] ([employer]) and validated at the [facility]. This test has not been FDA [...] is terminated or revoked sooner. PERFORMED BY: [place] [address] PATHOLOGIST SENIOR PROJECT LEADER/TEAM LEAD JACQUIE CRABTREE M.D. Performed By: #### C OVID 19 [facility] [place] #### [address] COVID-19 Positive/NegativeOr dered By: John Carlson on 03-09-2022 SARS-CoV-2 (COVID-19) N gene EVARISTO+probe Ql (Resp) Negative Negative [facility] Comment on above: Testing for SARS-CoV -2 by RT-PCR This test was developed and its performance characteristics determined by [employer] ([employer]) and validated at the [facility]. This test has not been FDA [...] Carlson on 02-28-2022 Anaerobic Culture Prevotella bivia [facility] Bacteria identified Aer cx N om (Unsp spec)Ordered By: John Carlson on 02-15-2022 Aerobic Culture Escherichia coli [facility] Aerobic Culture Strep. agalactiae Gr p B [facility] ABO and Rh group post transf usion reaction Nom (Bld)Ordered By: John Carlson on 02-14-2022 Microscopic observation Gram stain Nom (Unsp spec) [facility] Aerobic Cultureon 02-13-2022 Aerobic Culture Comment R LABIAL LESION DEEP WOUND CULTURE Light Normal Skin Keerthi 2 Days Comment R LABIAL LESION DEEP WOUND CULTURE No Anaerobes Isolated 3 Days Comment R LABIAL LESION DEEP WOUND CULTURE Gram Stain Result 3+ White Blood Cells No Bacteria Seen PERFORMED BY: [facility] [address] [place] [place] [address] PATHOLOGIST SENIOR PROJECT LEADER/TEAM LEAD JACQUIE CRABTREE M.D. Normal [facility] Comment on above: Performed By: #### A ERC #### [facility] [address] [place] [id number] [facility] Aerobic Culture Comment R PUBIS LESION DEEP WOUND CULTURE ORGANISM: Escherichia coli (O:ESCCOL) Quantity of Growth Light Growth ORGANISM: Strep. agalactiae Grp B (O:B) Quantity of Growth Rare Growth Comment R PUBIS LESION DEEP WOUND CULTURE ORGANISM: Prevotella bivia (O:PREBIV) Comments Sent to [facility] for Sensitivity Testing Quantity of Growth Moderate Growth Beta lactamase - Positive Minimum inhibitory concentration (ug/ml) Meropenem 0.06 None Ampicillin/Sulbactam 2/1 None Piperacillin/Tazobact am <=1/4 None Penicillin 8 None Metronidazole 4 None Clindamycin >=32 None Interpretive information: See Note Note: At the present time there are no CLSI guidelines for performance and/or interpretation of susceptibility testing for anaerobes other than Bacteroides fragilis group by the broth microdilution method. Unable to provide interpretation for the MARY values. Susceptibility performed by non-standardized methology. Interpret results with caution. Testing performed [facility] [employer] Comment R PUBIS LESION DEEP WOUND CULTURE Gram Stain Result 1+ White Blood Cells No Bacteria Seen Aerobic MARY Charge (NUC86) ---- SUSCEPTIBILITY --- ORGANISM: O:ESCCOL ANTIBIOTIC INTERPRETATION MARY Amikacin S <16 Ampicillin R >16 Ampicillin/Sulbactam S <8/4 Aztreonam S <4 Cefazolin S <2 Cefepime S <2 Ceftazidime S <1 Ceftazidime/Avibactam S <8 Ceftriaxone S <1 Ciprofloxacin S <1 Ertapenem S <0.5 Gentamicin S <4 Levofloxacin S <2 Meropenem S <1 Piperacillin/Tazobact am S <16 Tetracycline S <4 Tigecycline S <2 Tobramycin S <4 Trimethoprim/Sulfamet hoxazole R >2/38 S = SUSCEPTIBLE I = [...] RESISTANT TO ALL B-LACTAM DRUGS. PERFORMED BY: [place] [address] PATHOLOGIST SENIOR PROJECT LEADER/TEAM LEAD JACQUIE CRABTREE M.D. Normal [facility] Comment on above: Performed By: #### U HCG #### [facility] [address] [place] [address] HCG ( test) IA.rapi d Ql (U)Ordered By: Dillon Miranda on 02-13-2022 HCG ( test) Ql (U) Negative [facility] HCG,Urineon 02-13-2022 Beta HCG ( test) Ql (U) Negative [facility] Comment on above: Result Comment: PERF ORMED BY: [place] [address] PATHOLOGIST SENIOR PROJECT LEADER/TEAM LEAD JACQUIE CRABTREE M.D. Performed By: #### U HCG #### [place] [id number] [facility] Mikey 02-13-2022 L - -------- Specimen: [id number] Received: 02/14/22 Status: OSCAR Woody Num: [id number] Spec Type: Surgical Subm Dr: John Carlson MD Tissues: A Debridement-Skin/Othe r Than Skin (RT PUBIS) B Debridement-Skin/Othe r Than Skin (LT LABIAL) C Debridement-Skin/Othe r Than Skin (RT LABIAL) D Debridement-Skin/Othe r Than Skin (RT ABDOMINAL WALL) Procedures: HE Stain/4, Gross/Micro L3/4 -------- Patient Age/Sex Location Account Attending Physician -------- Margaret Prieto / MD [id number] John Carlsno MD -------- SPEC NUM: [id number] RECD: 02/14/22 STATUS: OSCAR MENDOZA NUM: [id number] DANIEL: 02/13/22-[address] [facility] [address]: John Carlson MD ENTERED: 02/14/220753 [facility] DR: BRODY TYPE: Surgical DEPT: S [...] Information Multiple leg and groin lesions, hidradenitis -------- Specimen: [id number] Received: 02/14/22 Status: OSCAR Mendoza Num: [id number] Spec Type: Surgical Subm Dr: John Carlson MD Tissues: A Debridement-Skin/Othe r Than Skin (RT PUBIS) B Debridement-Skin/Othe r Than Skin (LT LABIAL) C Debridement-Skin/Othe r Than Skin (RT LABIAL) D Debridement-Skin/Othe r Than Skin (RT ABDOMINAL WALL) Procedures: HE Stain/4, Gross/Micro L3/4 -------- Patient: CarlmeenakshiMargaret [id number] (Continued) -------- Specimen: [id number] Received: 02/14/22 (Continued) Signed (signature on file) Santi Jung) Li, MD 02/15/22 1722 -------- Specimen: [id number] Received: 02/14/22 Status: OSCAR Mendoza Num: [id number] Spec Type: Surgical Subm Dr: John Carlson MD Tissues: A Debridement-Skin/Othe r Than Skin (RT PUBIS) B Debridement-Skin/Othe r Than Skin (LT LABIAL) C Debridement-Skin/Othe r Than Skin (RT LABIAL) D Debridement-Skin/Othe r Than Skin (RT ABDOMINAL WALL) Procedures: HE Stain/4, Gross/Micro L3/4 -------- Patient: YadiMargaret [id number] (Continued) -------- Specimen: [id number] Received: 02/14/22 (Continued) Gross Description A. Received [...] the patient's (more content not included)... Normal [facility] [place] [facility] [place] SARS-CoV-2 (COVID-19) RNA EVARISTO+probe Ql (Unsp spec) Negative Normal Negative [facility] Comment on above: Order Comment: Healt hcare Worker?: N Result Comment: Testing for SARS-CoV-2 by RT-PCR This test was developed and its performance characteristics determined by [employer] ([employer]) and validated at the [facility]. This test has not been FDA [...] is terminated or revoked sooner. PERFORMED BY: [facility] [address] [place] [address] PATHOLOGIST SENIOR PROJECT LEADER/TEAM LEAD JACQUIE CRABTREE M.D. Performed By: #### C OVID 19 [facility] [place] #### [facility] [address] COVID-19 Positive/NegativeOr dered By: John Carlson on 02-09-2022 SARS-CoV-2 (COVID-19) N gene EVARISTO+probe Ql (Resp) Negative Negative [facility] Comment on above: Testing for SARS-CoV -2 by RT-PCR This test was developed and its performance characteristics determined by [employer] ([employer]) and validated at the [facility]. This test has not been FDA [...] 01-03 Calcium [Mass/Vol] 8.9 mg/dL Normal 8.2-10.2 [facility] Comment on above: Result Comment: PERF ORMED BY: [facility] [address] [place] [address] PATHOLOGIST SENIOR PROJECT LEADER/TEAM LEAD JACQUIE CRABTREE M.D. Performed By: #### C BC, BMP #### [facility] [address] [place] [id number] [facility] Chloride [Moles/Vol] 99 mmol/L Normal 95-114 [facility] Comment on above: Performed By: #### C BC, BMP #### [facility] [address] CO2 [Moles/Vol] 26.3 mmol/L Normal 22.0-30.0 [facility] Comment on above: Performed By: #### C BC, BMP #### [facility] [address] Creatinine [Mass/Vol] 0.77 mg/dL Normal 0.44-1.03 [facility] Comment on above: Performed By: #### C BC, BMP #### [facility] [address] Estimated GFR ( Vinh > 60 Normal [facility] Comment on above: Result Comment: GFR estimated reference range: According to KDOQI guidelines, <60 ml/min/1.73m2 is sufficient to diagnose a patient with chronic kidney disease. Performed By: #### C BC, BMP #### [address] Estimated GFR (Non- Am > 60 Normal [facility] Comment on above: Performed By: #### C BC, BMP #### [place] [address] [place] Glucose [Mass/Vol] 100 mg/dL Normal 70-100 [facility] Comment on above: Result Comment: [place] om Glucose Reference Range is dependent on time and content of last meal. Glucose of more than 200 mg/dL in a nonstressed, ambulatory subject supports the diagnosis of Diabetes Mellitus. ADA recommended reference range Performed By: #### C BC, BMP #### [place] [address] [place] Potassium [Moles/Vol] 3.8 mmol/L Normal 3.5-5.1 [facility] Comment on above: Performed By: #### C BC, BMP #### [address] Sodium [Moles/Vol] 137 mmol/L Normal 136-146 [facility] Comment on above: Performed By: #### C BC, BMP #### [place] [address] [place] Urea nitrogen [Mass/Vol] 11 mg/dL Normal 9-23 [facility] Comment on above: Performed By: #### C BC, BMP #### [address] Complete Blood Count Auto Di ffon 01-31-2022 Basophils (Bld) [#/Vol] 0.1 10*3/uL Normal 0.0-0.2 [facility] Comment on above: Result Comment: PERF ORMED BY: [place] [address] PATHOLOGIST SENIOR PROJECT LEADER/TEAM LEAD JACQUIE CRABTREE M.D. Performed By: #### C BC, BMP #### [address] Basophils/100 WBC (Bld) 0.7 % Normal . [facility] Comment on above: Performed By: #### C BC, BMP #### [address] Eosinophils (Bld) [#/Vol] 0.3 10*3/uL Normal 0.0-0.45 [facility] Comment on above: Performed By: #### C BC, BMP #### [address] Eosinophils/100 WBC (Bld) 2.7 % Normal . [facility] Comment on above: Performed By: #### C BC, BMP #### [address] Erythrocyte distribution width (RBC) [Ratio] 14.3 % Normal 11.9-15.3 [facility] Comment on above: Performed By: #### C BC, BMP #### [address] Hematocrit (Bld) [Volume fraction] 41.9 % Normal 34.0-46.4 [facility] Comment on above: Performed By: #### C BC, BMP #### [address] Hemoglobin (Bld) [Mass/Vol] 13.9 g/dL Normal 11.8-15.4 [facility] Comment on above: Performed By: #### C BC, BMP #### [facility] [address] Lymphocytes (Bld) [#/Vol] 2.0 10*3/uL Normal 1.00-4.8 [facility] Comment on above: Performed By: #### C BC, BMP #### [facility] [address] Lymphocytes/100 WBC (Bld) 15.9 % Normal . [facility] Comment on above: Performed By: #### C BC, BMP #### [facility] [address] MCH (RBC) [Entitic mass] 26.4 pg Normal 24.7-34.3 [facility] Comment on above: Performed By: #### C BC, BMP #### [facility] [address] MCV (RBC) [Entitic vol] 79.5 fL Low 80-100 [facility] Comment on above: Performed By: #### C BC, BMP #### [facility] [address] Mean Corpuscular HGB Conc 33.2 g/dL Normal 32.0-35.0 [facility] Comment on above: Performed By: #### C BC, BMP #### [facility] [address] [place] [address] [place] Monocytes (Bld) [#/Vol] 0.8 10*3/uL Normal 0.0-0.8 [facility] Comment on above: Performed By: #### C BC, BMP #### [facility] [address] [place] [address] [place] Monocytes/100 WBC (Bld) 6.7 % Normal . [facility] Comment on above: Performed By: #### C BC, BMP #### [facility] [address] Neutrophils (Bld) [#/Vol] 9.2 10*3/uL High 1.8-7.7 [facility] Comment on above: Performed By: #### C BC, BMP #### [facility] [address] [place] [address] [place] Neutrophils/100 WBC (Bld) 74.0 % Normal . [facility] Comment on above: Performed By: #### C BC, BMP #### [facility] [address] [place] [address] [place] Nucleated RBC/100 WBC (Bld) [Ratio] 0.0 % Normal 0-0.5 [facility] Comment on above: Performed By: #### C BC, BMP #### [facility] [address] Platelet mean volume (Bld) [Entitic vol] 6.9 fL Normal 6.3-10.7 [facility] Comment on above: Performed By: #### C BC, BMP #### [facility] [address] [place] [address] [place] Platelets (Bld) [#/Vol] 363 10*3/uL Normal 150-450 [facility] Comment on above: Performed By: #### C BC, BMP #### [facility] [address] [place] [address] [place] RBC (Bld) [#/Vol] 5.26 10*6/uL High 3.60-5.00 [facility] Comment on above: Performed By: #### C BC, BMP #### [facility] [address] [place] [address] [place] WBC (Bld) [#/Vol] 12.5 10*3/uL High 4.5-11.0 [facility] Comment on above: Performed By: #### C BC, BMP #### [facility] [address] [place] [address] [place] ECG 12 lead ECGon 01-31-2022 ECG 12 lead ECG [facility] [place] [address] [place] [address] Electrocardiograph Report Signed Patient: Margaret Prieto MR#: [id number] : 1990 Acct:[id number] Age/Sex: 31 / F ADM Date: 01/31/22 Loc: PS Room: Type: [facility] Attending Dr: John Carlson MD Ordering Provider: [...] Signed By Susanna Ruiz DO 01/31 1848 Normal [facility] Physician Referralon 022 Physician Referral [id number]:127 Normal [facility] Physician Referralon 021 Physician Referral [id number]:127 Normal [facility] Vital Signs Date Time Vital Sign Value Performing Clinician Facility 12-20-2023 10:16-0400 Body temperature 97.7 [degF] Sharif Joseph MD Work Phone: [facility] 12-20-2023 10:16-0400 Body weight 171.1 kg Sharif Joseph MD Work Phone: [facility] 12-20-2023 10:16-0400 Diastolic blood pressure 90 mm[Hg] Sharif Joseph MD Work Phone: [facility] 12-20-2023 10:16-0400 Heart rate 98 /min Sharif Joseph MD Work Phone: [facility] 12-20-2023 10:16-0400 Respiratory rate 16 /min Sharif Joseph MD Work Phone: [facility] 12-20-2023 10:16-0400 SaO2% (BldA) [Mass fraction] 97 % Sharif Joseph MD Work Phone: [facility] 12-20-2023 10:16-0400 Systolic blood pressure 154 mm[Hg] Sharif Joseph MD Work Phone: [facility] 12-07-2023 11:05-0400 Body height 165.1 cm Harleydenver Thacker BUILDING CLEANING SUPERVISOR-DIETITIAN CHIEF Work Phone: [facility] 12-07-2023 11:05-0400 Body mass index (BMI) [Ratio] 64.23 kg/m2 Harley Bettencourtjas BUILDING CLEANING SUPERVISOR-DIETITIAN CHIEF Work Phone: [facility] 12-07-2023 11:05-0400 Body temperature 98.01 [degF] Harley Thacker BUILDING CLEANING SUPERVISOR-DIETITIAN CHIEF Work Phone: [facility] 12-07-2023 11:05-0400 Body weight 175.09 kg Harley Bettencourtjas BUILDING CLEANING SUPERVISOR-DIETITIAN CHIEF Work Phone: [facility] 12-07-2023 11:05-0400 Diastolic blood pressure 76 mm[Hg] Harley Thacker BUILDING CLEANING SUPERVISOR-DIETITIAN CHIEF Work Phone: [facility] 12-07-2023 11:05-0400 Heart rate 97 /min Harley Thacker BUILDING CLEANING SUPERVISOR-DIETITIAN CHIEF Work Phone: [facility] 12-07-2023 11:05-0400 SaO2% (BldA) [Mass fraction] 94 % Harley Thacker BUILDING CLEANING SUPERVISOR-DIETITIAN CHIEF Work Phone: [facility] 12-07-2023 11:05-0400 Systolic blood pressure 136 mm[Hg] Harley Thacker BUILDING CLEANING SUPERVISOR-DIETITIAN CHIEF Work Phone: [facility] 11-29-2023 10:42-0400 Body height 165.1 cm Sharif Joseph MD Work Phone: [facility] 11-29-2023 10:42-0400 Body temperature 97.59 [degF] Sharif Joseph MD Work Phone: [facility] 11-29-2023 10:42-0400 Body weight 172.8 kg Sharif Joseph MD Work Phone: [facility] 11-29-2023 10:42-0400 Diastolic blood pressure 100 mm[Hg] Sharif Joseph MD Work Phone: [facility] 11-29-2023 10:42-0400 Heart rate 98 /min Sharif Joseph MD Work Phone: [facility] 11-29-2023 10:42-0400 Respiratory rate 16 /min Sharif Joseph MD Work Phone: [facility] 11-29-2023 10:42-0400 SaO2% (BldA) [Mass fraction] 98 % Sharif Joseph MD Work Phone: [facility] 11-29-2023 10:42-0400 Systolic blood pressure 159 mm[Hg] Sharif Joseph MD Work Phone: [facility] 11-28-2023 09:58-0400 Body height 165.1 cm Pam Mittal MD Work Phone: [facility] 11-28-2023 09:58-0400 Body mass index (BMI) [Ratio] 63.73 kg/m2 Pam Mittal MD Work Phone: [facility] 11-28-2023 09:58-0400 Body weight 173.73 kg Pam Mittal MD Work Phone: [facility] 11-28-2023 09:58-0400 Diastolic blood pressure 96 mm[Hg] Pam Mittal MD Work Phone: [facility] 11-28-2023 09:58-0400 Heart rate 95 /min Pam Mittal MD Work Phone: [facility] 11-28-2023 09:58-0400 SaO2% (BldA) [Mass fraction] 98 % Pam Mittal MD Work Phone: [facility] 11-28-2023 09:58-0400 Systolic blood pressure 140 mm[Hg] Pam Mittal MD Work Phone: [facility] 11-14-2023 15:25-0400 Body height 165.1 cm Harley Htacker BUILDING CLEANING SUPERVISOR-DIETITIAN CHIEF Work Phone: [facility] 11-14-2023 15:25-0400 Body mass index (BMI) [Ratio] 63.5 kg/m2 Harley Thacker BUILDING CLEANING SUPERVISOR-DIETITIAN CHIEF Work Phone: [facility] 11-14-2023 15:25-0400 Body temperature 98.6 [degF] Harley Thacker BUILDING CLEANING SUPERVISOR-DIETITIAN CHIEF Work Phone: [facility] 11-14-2023 15:25-0400 Body weight 173.09 kg Harley Bettencourtjas BUILDING CLEANING SUPERVISOR-DIETITIAN CHIEF Work Phone: [facility] 11-14-2023 15:25-0400 Diastolic blood pressure 80 mm[Hg] Harley Thacker BUILDING CLEANING SUPERVISOR-DIETITIAN CHIEF Work Phone: [facility] 11-14-2023 15:25-0400 Heart rate 98 /min Harleydenver Thacker BUILDING CLEANING SUPERVISOR-DIETITIAN CHIEF Work Phone: [facility] 11-14-2023 15:25-0400 SaO2% (BldA) [Mass fraction] 97 % Harley Thacker BUILDING CLEANING SUPERVISOR-DIETITIAN CHIEF Work Phone: [facility] 11-14-2023 15:25-0400 Systolic blood pressure 132 mm[Hg] Harleydenver Thacker BUILDING CLEANING SUPERVISOR-DIETITIAN CHIEF Work Phone: [facility] 11-07-2023 10:01-0500 Body height 165.1 cm Corine Catherine BUILDING CLEANING SUPERVISOR-DIETITIAN CHIEF Work Phone: [facility] 11-07-2023 10:01-0500 Body mass index (BMI) [Ratio] 63.77 kg/m2 Corine Catherine BUILDING CLEANING SUPERVISOR-DIETITIAN CHIEF Work Phone: [facility] 11-07-2023 10:01-0500 Body weight 173.82 kg Corine Catherine BUILDING CLEANING SUPERVISOR-DIETITIAN CHIEF Work Phone: [facility] 11-07-2023 10:01-0500 Diastolic blood pressure 89 mm[Hg] Corine Catherine BUILDING CLEANING SUPERVISOR-DIETITIAN CHIEF Work Phone: [facility] 11-07-2023 10:01-0500 Heart rate 95 /min Corine Catherine BUILDING CLEANING SUPERVISOR-DIETITIAN CHIEF Work Phone: [facility] 11-07-2023 10:01-0500 Systolic blood pressure 175 mm[Hg] Corine Catherine BUILDING CLEANING SUPERVISOR-DIETITIAN CHIEF Work Phone: [facility] 10-19-2023 10:15-0500 Body mass index (BMI) [Ratio] 63.5 kg/m2 Yashira Mi BUILDING CLEANING SUPERVISOR-DIETITIAN CHIEF Work Phone: [facility] 10-19-2023 10:15-0500 Body weight 173.09 kg Yashira Mi BUILDING CLEANING SUPERVISOR-DIETITIAN CHIEF Work Phone: [facility] 10-19-2023 10:15-0500 Diastolic blood pressure 96 mm[Hg] Yashira Mi BUILDING CLEANING SUPERVISOR-DIETITIAN CHIEF Work Phone: [facility] 10-19-2023 10:15-0500 Heart rate 82 /min Yashira Mi BUILDING CLEANING SUPERVISOR-DIETITIAN CHIEF Work Phone: [facility] 10-19-2023 10:15-0500 Systolic blood pressure 142 mm[Hg] Yashira Mi BUILDING CLEANING SUPERVISOR-DIETITIAN CHIEF Work Phone: [facility] 10-08-2023 09:12-0500 Body height 165.1 cm Harley Thacker BUILDING CLEANING SUPERVISOR-DIETITIAN CHIEF Work Phone: [facility] 10-08-2023 09:12-0500 Body mass index (BMI) [Ratio] 63.24 kg/m2 Harley Thacker BUILDING CLEANING SUPERVISOR-DIETITIAN CHIEF Work Phone: [facility] 10-08-2023 09:12-0500 Body temperature 98.01 [degF] Harley Thacker BUILDING CLEANING SUPERVISOR-DIETITIAN CHIEF Work Phone: [facility] 10-08-2023 09:12-0500 Body weight 172.37 kg Harley Thacker BUILDING CLEANING SUPERVISOR-DIETITIAN CHIEF Work Phone: [facility] 10-08-2023 09:12-0500 Diastolic blood pressure 90 mm[Hg] Harley Thacker BUILDING CLEANING SUPERVISOR-DIETITIAN CHIEF Work Phone: [facility] 10-08-2023 09:12-0500 Heart rate 86 /min Harley Thacker BUILDING CLEANING SUPERVISOR-DIETITIAN CHIEF Work Phone: [facility] 10-08-2023 09:12-0500 SaO2% (BldA) [Mass fraction] 97 % Harley Thacker BUILDING CLEANING SUPERVISOR-DIETITIAN CHIEF Work Phone: [facility] 10-08-2023 09:12-0500 Systolic blood pressure 132 mm[Hg] Harley Thacker BUILDING CLEANING SUPERVISOR-DIETITIAN CHIEF Work Phone: [facility] 05-05-2022 09:25-0400 Body temperature 97.9 [degF] MD John Carlson Work Phone: [facility] 05-05-2022 09:25-0400 Diastolic blood pressure 93 mm[Hg] MD John Carlson Work Phone: [facility] 05-05-2022 09:25-0400 Heart rate 78 /min MD John Carlson Work Phone: [facility] 05-05-2022 09:25-0400 Respiratory rate 18 /min MD John Carlson Work Phone: [facility] 05-05-2022 09:25-0400 SaO2% (BldA) [Mass fraction] 99 % MD John Carlson Work Phone: [facility] 05-05-2022 09:25-0400 Systolic blood pressure 156 mm[Hg] MD John Carlson Work Phone: [facility] 05-05-2022 09:24-0400 Body height 165.1 cm MD John Carlson Work Phone: [facility] 05-05-2022 09:24-0400 Body weight 155.9 kg MD John Carlson Work Phone: [facility] 04-21-2022 09:29-0400 Body temperature 98.2 [degF] MD John Carlson Work Phone: [facility] 04-21-2022 09:29-0400 Diastolic blood pressure 59 mm[Hg] MD John Carlson Work Phone: [facility] 04-21-2022 09:29-0400 Heart rate 74 /min MD John Carlson Work Phone: [facility] 04-21-2022 09:29-0400 Systolic blood pressure 141 mm[Hg] MD John Carlson Work Phone: [facility] 04-21-2022 08:29-0400 Body height 165.1 cm MD John Carlson Work Phone: [facility] 04-21-2022 08:29-0400 Body weight 155 kg MD John Carlson Work Phone: [facility] 04-10-2022 14:46-0400 Body height 165.1 cm MD John Carlson Work Phone: [facility] 04-10-2022 14:46-0400 Body mass index (BMI) [Ratio] 55.4 kg/m2 MD John Carlson Work Phone: [facility] 04-10-2022 14:46-0400 Body weight 151.04 kg MD John Carlson Work Phone: [facility] 04-10-2022 14:25-0400 Diastolic blood pressure 69 mm[Hg] MD John Carlson Work Phone: [facility] 04-10-2022 14:25-0400 Heart rate 80 /min MD John Carlson Work Phone: [facility] 04-10-2022 14:25-0400 Respiratory rate 16 /min MD John Carlson Work Phone: [facility] 04-10-2022 14:25-0400 SaO2% (BldA) [Mass fraction] 100 % MD John Carlson Work Phone: [facility] 04-10-2022 14:25-0400 Systolic blood pressure 119 mm[Hg] MD John Carlson Work Phone: [facility] 04-10-2022 14:10-0400 Inhaled oxygen flow rate 4 L/min MD John Carlson Work Phone: [facility] 04-10-2022 11:36-0400 Body temperature 97.9 [degF] MD John Carlson Work Phone: [facility] 03-13-2022 19:00-0400 Diastolic blood pressure 92 mm[Hg] MD John Carlson Work Phone: [facility] 03-13-2022 19:00-0400 Heart rate 84 /min MD John Carlson Work Phone: [facility] 03-13-2022 19:00-0400 Respiratory rate 16 /min MD John Carlson Work Phone: [facility] 03-13-2022 19:00-0400 SaO2% (BldA) [Mass fraction] 98 % MD John Carlson Work Phone: [facility] 03-13-2022 19:00-0400 Systolic blood pressure 148 mm[Hg] MD John Carlson Work Phone: [facility] 03-13-2022 18:03-0400 Body temperature 98 [degF] MD John Carlson Work Phone: [facility] 03-13-2022 17:33-0400 Inhaled oxygen flow rate 6 L/min MD John Carlson Work Phone: [facility] 03-13-2022 17:13-0400 Body height 165.1 cm MD John Carlson Work Phone: [facility] 03-13-2022 17:13-0400 Body mass index (BMI) [Ratio] 56.9 kg/m2 MD John Carlson Work Phone: [facility] 03-13-2022 17:13-0400 Body weight 155.12 kg MD John Carlson Work Phone: [facility] 02-13-2022 17:05-0400 Diastolic blood pressure 81 mm[Hg] MD John Carlson Work Phone: [facility] 02-13-2022 17:05-0400 Heart rate 76 /min MD John Carlson Work Phone: [facility] 02-13-2022 17:05-0400 Respiratory rate 16 /min MD John Carlson Work Phone: [facility] 02-13-2022 17:05-0400 SaO2% (BldA) [Mass fraction] 94 % MD John Carlson Work Phone: [facility] 02-13-2022 17:05-0400 Systolic blood pressure 131 mm[Hg] MD John Carlson Work Phone: [facility] 02-13-2022 15:44-0400 Body height 165.1 cm MD John Carlson Work Phone: [facility] 02-13-2022 15:44-0400 Body mass index (BMI) [Ratio] 56.5 kg/m2 MD John Carlson Work Phone: [facility] 02-13-2022 15:44-0400 Body weight 154 kg MD John Carlson Work Phone: [facility] 02-13-2022 12:20-0400 Body temperature 97.9 [degF] MD John Carlson Work Phone: [facility] 08-02-2020 13:24-0500 BMI (Body Mass Index) 58.74 kg/m2 [facility] 08-02-2020 13:24-0500 Body Temperature 98.4 [degF] [facility] 08-02-2020 13:24-0500 Body weight 160.12 kg [facility] 08-02-2020 13:24-0500 BP Diastolic 91 mm[Hg] [facility] 08-02-2020 13:24-0500 BP Systolic 150 mm[Hg] [facility] 08-02-2020 13:24-0500 Height 165.1 cm [facility] 08-02-2020 13:24-0500 Pulse (Heart Rate) 91 /min [facility] 08-02-2020 13:24-0500 Pulse Oximetry 97 % [facility] Encounters Encounter Date Encounter Type Care Provider Facility Start: 04-08-2024 Telephone encounter [facility] Comment on above: letter of medical cl earance Start: 04-08-2024 End: 04-08-2024 Departed Referred DO Dannie Dickinson Work Phone: [facility] Start: 04-08-2024 End: 04-08-2024 ambulatory DANNIE DICKINSON [facility] Work Phone: Start: 04-02-2024 Telephone encounter [facility] Start: 04-01-2024 ambulatory Sharif khanna MD Work Phone: Hematology/Oncology Comment on above: Hidradenitis support efren Start: 03-26-2024 End: 03-26-2024 ambulatory [facility] Start: 03-24-2024 End: 03-24-2024 ambulatory Yancy Cancino MD Facility: [facility] Start: 03-20-2024 ambulatory Sharif khanna MD Work Phone: Hematology/Oncology Comment on above: Victoza and arixtra Start: 03-17-2024 End: 03-17-2024 ambulatory DANNIE BARBARA Not Available Start: 03-12-2024 End: 03-12-2024 ambulatory [facility] Start: 03-10-2024 End: 03-10-2024 ambulatory Yancy Cancino MD Facility:[facility] Start: 02-27-2024 End: 02-27-2024 ambulatory DANNIE BARBARA Not Available Start: 02-13-2024 End: 02-13-2024 ambulatory [facility] Start: 01-23-2024 End: 01-23-2024 ambulatory [facility] Start: 01-10-2024 End: 01-10-2024 ambulatory [facility] Start: 12-25-2023 End: 12-25-2023 ambulatory [facility] Start: 12-20-2023 End: 12-20-2023 Office outpatient visit 25 minutes Sharif Joseph MD Work Phone: Hematology/Oncology Comment on above: Primary hypercoagula ble state (HCC) (Primary Dx); Factor V Leiden (HCC); MTHFR mutation; Iron deficiency anemia, unspecified iron deficiency anemia type; Factor V deficiency (HCC) Start: 12-20-2023 End: 12-20-2023 ambulatory SHARIF JOSEPH Facility:[facility] Start: 12-12-2023 End: 12-13-2023 ambulatory MATTHEW PITTMAN [facility] Start: 12-12-2023 End: 12-12-[address] [facility] Start: 12-11-2023 End: 12-11-2023 ambulatory CLARIBEL OLSON [facility] Start: 12-11-2023 End: 12-11-2023 Evaluation and management of inpatient MAYRA RAYA [facility] Start: 12-10-2023 End: 12-11-2023 Evaluation and management of inpatient COLLINS MEJIA [facility] Start: 12-07-2023 End: 12-08-[address] [facility] Start: 12-07-2023 Encounter for genera l adult medical examination without abnormal findings [facility] Start: 12-07-2023 End: 12-07-2023 Patient encounter status Harley Thacker BUILDING CLEANING SUPERVISOR-DIETITIAN CHIEF Work Phone: [facility] Work Phone: Start: 12-07-2023 End: 12-07-2023 Periodic preventive med est patient 18-39 yrs Harley Thacker BUILDING CLEANING SUPERVISOR-DIETITIAN CHIEF Work Phone: [facility] Comment on above: Wellness examination (Primary Dx); Shalom's disease; Controlled type 2 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 complication, without long-term current use of insulin ([facility]); Encounter for Papanicolaou smear for cervical cancer screening; Hidradenitis suppurativa Start: 12-07-2023 End: 12-07-2023 ambulatory [facility] Start: 12-07-2023 Encounter for genera l adult medical examination without abnormal findings [facility] Start: 12-07-2023 End: 12-07-[address] [facility] Start: 12-06-2023 Orders Only Harley Bettencourtja nikki BUILDING CLEANING SUPERVISOR-DIETITIAN CHIEF Work Phone: [facility] Start: 12-05-2023 End: 12-05-2023 ambulatory [facility] Pat Phone Call Provider 1 [facility] - Pre Admit Start: 12-03-2023 [facility] Start: 11-29-2023 End: 11-29-2023 ambulatory HARLEY THACKER Facility:[facility] Start: 11-29-2023 End: 11-29-2023 Office outpatient new 45 minutes Sharif Joseph MD Work Phone: Hematology/Oncology Comment on above: Factor V Leiden (HCC ) (Primary Dx); Gastrointestinal hemorrhage, unspecified gastrointestinal hemorrhage type; Iron deficiency anemia, unspecified iron deficiency anemia type; MTHFR mutation; Primary hypercoagulable state (HCC); History of pulmonary embolism Start: 11-28-2023 End: 11-28-2023 ambulatory [facility] Start: 11-28-2023 End: 11-28-2023 Office outpatient visit 15 minutes Pam Mittal MD Work Phone: [facility] Cardiology Comment on above: Essential hypertensi on (Primary Dx) Start: 11-27-2023 Chart abstracting Sharif clarke MD Work Phone: Hematology/Oncology Start: 11-27-2023 Telephone encounter Claribel Myers CMA [facility] Start: 11-27-2023 End: 11-27-2023 Office outpatient visit 15 minutes Yashira Mi BUILDING CLEANING SUPERVISOR-DIETITIAN CHIEF Work Phone: [facility] Behavioral Health Comment on above: Bipolar depression ( CMS-HCC) (Primary Dx); Post traumatic stress disorder (PTSD); Generalized anxiety disorder; Attention deficit hyperactivity disorder, combined type Start: 11-27-2023 End: 11-27-2023 ambulatory YASHIRA Caio [facility] Start: 11-27-2023 End: 11-27-2023 ambulatory [facility] Start: 11-15-2023 End: [address] [facility] Start: 11-14-2023 End: 11-14-2023 ambulatory [facility] Start: 11-14-2023 Encounter for other preprocedural examination [facility] Start: 11-14-2023 End: 11-14-2023 Office outpatient visit 15 minutes Harley Thacker BUILDING CLEANING SUPERVISORRevolutionary Medical DevicesDIETITIAN CHIEF Work Phone: [facility] Comment on above: Preoperative clearan ce (Primary Dx); Abnormal echocardiogram; History of DVT (deep vein thrombosis); History of pulmonary embolism; Factor 5 Leiden mutation, heterozygous ([facility]); 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 ([facility]); Chest discomfort; Shortness of breath; Atrial mass; Gastroesophageal reflux disease, unspecified whether esophagitis present Start: 11-14-2023 End: 11-14-2023 Preoperative state [facility] BUILDING CLEANING SUPERVISORRevolutionary Medical DevicesDIETITIAN CHIEF Work Phone: [facility] Work Phone: Start: 11-14-2023 End: 11-14-20[facility] Start: 11-12-2023 Telephone encounter Bruna Plasencia CMA [facility] General Surgery Start: 11-09-2023 End: 11-10-2023 ambulatory KATYA DENISE [facility] Start: 11-09-2023 Encounter for other preprocedural examination [facility] Start: 11-09-2023 End: 11-09-2023 Patient encounter procedure [facility] Pre-Admission Testing 1 [facility] - Pre Admit Comment on above: Preop examination (P rimary Dx); MTHFR (methylene THF reductase) deficiency and homocystinuria ([facility]-H[facility]); BMI 60.0-69.9, adult ([facility]); Hypertension, unspecified type; Blood clotting disorder ([facility]) Start: 11-09-2023 End: 11-09-2023 Preprocedural examination done Pm 1 [facility] Start: 11-08-2023 End: 11-08-2023 ambulatory CORINE CATHERINE [facility] Start: 11-07-2023 End: 11-07-2023 Office outpatient new 45 minutes Corine Catherine BUILDING CLEANING SUPERVISOR-DIETITIAN CHIEF Work Phone: [facility] Comment on above: Gastroesophageal ref lux disease, unspecified whether esophagitis present (Primary Dx); Nausea and vomiting, unspecified vomiting type; Diarrhea, unspecified type; Morbid obesity ([facility]) Start: 11-07-2023 End: 11-07-2023 ambulatory CORINE Germán [facility] Start: 10-30-2023 End: 10-30-2023 ambulatory CLARIBEL [facility] Start: 10-23-2023 Refill Susana Rizvi [facility] Start: 10-22-2023 Telephone encounter Lauryn Fry [facility] On[facility] Start: 10-19-2023 End: 10-19-2023 [facility] Start: 10-08-2023 End: 10-08-2023 Office outpatient new 45 minutes Harley Thacker BUILDING CLEANING SUPERVISOR-DIETITIAN CHIEF Work Phone: [facility] Comment on above: PE (pulmonary thromb oembolism) ([facility]) (Primary Dx); History of pulmonary embolism; History of DVT (deep vein thrombosis); Factor 5 Leiden mutation, heterozygous ([facility]); 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 ([facility]); Bipolar 1 disorder ([facility]); Insulin resistance; History of prediabetes; History of insulin resistance; Gastroesophageal reflux disease, unspecified whether esophagitis present; Nausea and vomiting, unspecified vomiting type; Hidradenitis suppurativa; Migraine without aura and without status migrainosus, not intractable; Prediabetes Start: 10-08-2023 End: 10-08-2023 ambulatory [facility] Start: 06-25-2023 End: 06-25-2023 ambulatory [facility] Start: 05-28-2023 End: 05-28-2023 ambulatory Yancy Cancino MD Facility:[facility] Start: 02-01-2023 ambulatory NIKOLAS SHAMMO Facility:H 1 Start: 12-05-2022 ambulatory NIKOLAS SHAMMO Facility:[facility] 1 Start: 11-22-2022 End: 11-22-2022 ambulatory NIKOLAS SHAMMO Facility:[facility] Start: 11-02-2022 End: 11-03-[address] KACEY KAPOOR . Facility:[facility] Start: 10-24-2022 Encounter for genera l adult medical examination without abnormal findings NIKOLAS SHAMMO [facility] Start: 10-23-2022 End: 10-24-2022 Encounter for general adult medical examination without abnormal findings NIKOLAS SHAMMO Facility:[facility] Start: 10-23-2022 End: 10-24-2022 ambulatory NIKOLAS SHAMMO Facility:[facility] Start: 09-28-2022 End: 09-29-[address] KACEY KAPOOR . Facility:[facility] Start: 09-26-2022 End: 09-26-2022 ambulatory DELONTE BAUTISTA . Facility:[facility] Start: 09-05-2022 End: 09-05-2022 ambulatory [facility] Facility:[facility] Start: 06-05-2022 End: 06-06-2022 ambulatory [facility] Facility:[facility] Start: 06-01-2022 End: 06-02-[address] KACEY KAPOOR . Facility:[facility] Start: 05-05-2022 End: 05-05-2022 ambulatory John Chavezs Facility:[facility] Start: 05-05-2022 Registered Recurring MD John Carlson Work Phone: [facility] Start: 04-10-2022 End: 04-10-2022 ambulatory John Carlson Facility:[facility] Start: 04-10-2022 End: 04-10-2022 Admission to same day surgery center MD John Carlson Work Phone: [facility] [place] Start: 04-06-2022 End: 04-06-2022 ambulatory John Carlson Facility:[facility] Start: 04-06-2022 End: 04-06-2022 Patient encounter procedure MD John Carlson Work Phone: [facility] Start: 03-30-2022 End: 03-30-2022 ambulatory Dominique Bladimir Facility:[facility] Start: 03-30-2022 End: 03-30-2022 Patient encounter procedure MD John Carlson Work Phone: [facility] [place] Start: 03-13-2022 End: 03-13-2022 ambulatory John Carlson Facility:[facility] Start: 03-13-2022 End: 03-13-2022 Admission to same day surgery center MD John Carlson Work Phone: [facility] [place] Start: 03-09-2022 End: 03-09-2022 ambulatory John Carlson Facility:[facility] Start: 03-09-2022 End: 03-09-2022 Patient encounter procedure MD John Carlson Work Phone: [facility]Ppht[facility]ww [facility] Start: 03-01-2022 End: 03-02-2022 ambulatory PAM FLANAGAN Facility: Start: 02-13-2022 End: 02-13-2022 ambulatory John Carlson Facility:[facility] Start: 02-13-2022 End: 02-13-2022 Admission to same day surgery center MD John Carlson Work Phone: [facility] [place] Start: 02-09-2022 End: 02-09-2022 ambulatory John Carlson Facility:[facility] Start: 02-09-2022 End: 02-09-2022 Patient encounter procedure MD John Carlson Work Phone: [facility] Tlj-Vtd-Hhncstgi Testing Start: 01-31-2022 End: 01-31-2022 ambulatory John Carlson Facility:[facility] Start: 08-02-2020 End: 08-02-2020 Patient encounter procedure SANTIAGO SHELL [facility] Start: 08-02-2020 End: 08-02-2020 Office outpatient new 60 minutes Santiago Shell Work Phone: [facility] Rheumatology Comment on above: Lupus (HCC) (Primary Dx); Suppurative hidradenitis; Chronic fatigue; YULY (obstructive sleep apnea); Vitamin D insufficiency; Morbid obesity with BMI of 50.0-59.9, adult (HCC) Start: 06-03-2020 Patient encounter procedure ELIZABETH ONEILL [facility] Procedures Date Procedure Procedure Detail Performing [...] Psychiatric diagnostic eval w/medical services Bipolar depression ([facility]) Yashira Mi BUILDING CLEANING SUPERVISOR-DIETITIAN CHIEF Work Phone: Comment on above: Generalized anxiety disorder (Primary Dx); Bipolar depression ([facility]); Post traumatic stress disorder (PTSD); Attention deficit hyperactivity disorder, combined type Start: 10-08-2023 Gluc bld gluc mntr d ev cleared fda spec home use Harley Thacker BUILDING CLEANING SUPERVISOR-DIETITIAN CHIEF Work Phone: Start: 10-08-2023 Adult depression screening assessment Harley Thacker BUILDING CLEANING SUPERVISOR-DIETITIAN CHIEF Work Phone: Start: 04-10-2022 OR Wound Debridement/I&D/Hydraden [...] 12-06-2024 Adult BMI Screening Adult BMI Screening [facility] Start: 12-06-2024 Diabetic foot examination Diabetic Foot Exam [facility] Start: 12-06-2024 Tobacco Screening Tobacco Screening [facility] Start: 11-27-2024 Adult BMI Screening Adult BMI Screening [facility] Start: 11-27-2024 Tobacco Screening Tobacco Screening [facility] Start: 11-13-2024 Adult BMI Screening Adult BMI Screening [facility] Start: 11-13-2024 Tobacco Screening Tobacco Screening [facility] Start: 11-11-2024 Tobacco Screening Tobacco Screening [facility] Start: 11-08-2024 Tobacco Screening Tobacco Screening [facility] Start: 11-06-2024 Adult BMI Screening Adult BMI Screening [facility] Start: 11-06-2024 Tobacco Screening Tobacco Screening [facility] Start: 10-19-2024 Adult BMI Screening Adult BMI Screening [facility] Start: 10-19-2024 Tobacco Screening Tobacco Screening [facility] Start: 10-08-2024 Adult BMI Screening Adult BMI Screening [facility] Start: 10-08-2024 Depression Screening Depression Screening [facility] Start: 10-08-2024 Tobacco Screening Tobacco Screening [facility] Start: 05-04-2024 Influenza vaccination [facility] Start: 04-18-2024 End: 04-18-2024 Follow-up encounter 04/18/2024 11:30 AM EDT [facility] Office Hematology/Oncology [address] [place] [address] Sharif Joseph MD [address] [place] [address] 3 month follow up lab Hematology/Oncolo gy Comment on above: 3 month follow up lab Start: 04-18-2024 End: 04-18-2024 Patient encounter procedure 04/18/2024 11:15 AM EDT Office Visit [facility] [address] [place] [address] 3 month follow up lab [facility] Comment on above: 3 month follow up lab Start: 04-08-2024 [facility] Start: 03-20-2024 End: 12-19-2024 CBC W Auto Differential panel - Blood COMPLETE BLOOD COUNT AND DIFFERENTIAL Lab Routine Factor V Leiden (HCC) MTHFR mutation Primary hypercoagulable state (HCC) Iron deficiency anemia, unspecified iron deficiency anemia type Expected: 03/20/2024 (Approximate), Expires: 12/19/2024 [facility] Work Phone: Comment on above: Expected: 03/20/2024 (Approximate), Expi res: 12/19/2024 Start: 03-20-2024 End: 12-19-2024 Cobalamin (Vitamin B12) [Mass/volume] in Serum or Plasma VITAMIN B12 Lab Routine Factor V Leiden (HCC) MTHFR mutation Primary hypercoagulable state (HCC) Iron deficiency anemia, unspecified iron deficiency anemia type Expected: 03/20/2024 (Approximate), Expires: 12/19/2024 [facility] Work Phone: Comment on above: Expected: 03/20/2024 (Approximate), Expi res: 12/19/2024 Start: 03-20-2024 End: 12-19-2024 Comprehensive metabolic 2000 panel - Serum or Plasma COMPREHENSIVE METABOLIC PANEL Lab Routine Factor V Leiden (HCC) MTHFR mutation Primary hypercoagulable state (HCC) Iron deficiency anemia, unspecified iron deficiency anemia type Expected: 03/20/2024 (Approximate), Expires: 12/19/2024 [facility] Work Phone: Comment on above: Expected: 03/20/2024 (Approximate), Expi res: 12/19/2024 Start: 03-20-2024 End: 12-19-2024 Ferritin [Mass/volume] in Serum or Plasma FERRITIN Lab Routine Factor V Leiden (HCC) MTHFR mutation Primary hypercoagulable state (HCC) Iron deficiency anemia, unspecified iron deficiency anemia type Expected: 03/20/2024 (Approximate), Expires: 12/19/2024 [facility] Work Phone: Comment on above: Expected: 03/20/2024 (Approximate), Expi res: 12/19/2024 Start: 03-20-2024 End: 12-19-2024 Folate [Mass/volume] in Serum or Plasma FOLATE, SERUM Lab Routine Factor V Leiden (HCC) MTHFR mutation Primary hypercoagulable state (HCC) Iron deficiency anemia, unspecified iron deficiency anemia type Expected: 03/20/2024 (Approximate), Expires: 12/19/2024 [facility] Work Phone: Comment on above: Expected: 03/20/2024 (Approximate), Expi res: 12/19/2024 Start: 03-20-2024 End: 12-19-2024 Iron and Iron binding capacity panel - Serum or Plasma IRON AND TIBC Lab Routine Factor V Leiden (HCC) MTHFR mutation Primary hypercoagulable state (HCC) Iron deficiency anemia, unspecified iron deficiency anemia type Expected: 03/20/2024 (Approximate), Expires: 12/19/2024 [facility] Work Phone: Comment on above: Expected: 03/20/2024 (Approximate), Expi res: 12/19/2024 Start: 01-02-2024 End: 04-02-2024 Homocysteine [Moles/volume] in Serum or Plasma HOMOCYSTEINE Lab Routine Factor V Leiden (HCC) Gastrointestinal hemorrhage, unspecified gastrointestinal hemorrhage type Iron deficiency anemia, unspecified iron deficiency anemia type MTHFR mutation Primary hypercoagulable state (HCC) History of pulmonary embolism Expected: 01/02/2024 (Approximate), Expires: 04/02/2024 [facility] Work Phone: Comment on above: Expected: 01/02/2024 (Approximate), Expi res: 04/02/2024 Start: 12-25-2023 End: 12-25-2023 Patient encounter procedure 12/25/2023 9:30 AM EDT Off ice Visit [facility] [address] [place] [phone] Claribel Olson LISW [address] [place] [address] [facility] Start: 12-12-2023 End: 12-12-2023 Patient encounter procedure 12/12/2023 9:30 AM EDT Appointment [facility] Cardiovascular [address] [place] [phone] [facility] Start: 12-11-2023 End: 12-11-2023 Patient encounter procedure 12/11/2023 9:30 AM EDT Off ice Visit [facility] [address] [place] [phone] Claribel Olson LISW [address] [place] [address] [facility] Start: 12-10-2023 End: 12-10-2023 Admission to same day surgery center 12/10/2023 12:30 PM EDT - 12/10/2023 1:00 PM EDT Surgery [facility] [address] [place] [address] Collins Mejia, DO [facility] [place] [address] ESOPHAGOGASTRODUODENOSCOPY DIAGNOSTIC [64843 (CPT )] [facility] Comment on above: ESOPHAGOGASTRODUODENOSCOPY DIAGNOSTIC [4 3235 (CPT )] Start: 12-10-2023 End: 12-10-2023 Esophagogastroduodenoscopy transoral diagnostic ESOPHAGOGASTRODUODENOSCOPY DIAGNOSTIC gastroesophageal reflux, nausea, vomiting 12/10/2023 12:30 PM EDT [facility] Start: 12-10-2023 Subsequent hospital visit by physician 12/10/2023 12:30 PM EDT Hospital Encounter [facility] [address] [place] [address] Collins Mejia, DO [address] [place] [address] [facility] Start: 12-10-2023 End: 12-10-2023 Admission to same day surgery center 12/10/2023 7:30 AM EDT - 12/10/2023 8:[address] [facility] [address] [place] [address] [phone] Collins Mejia, DO [address] [place] [phone] ESOPHAGOGASTRODUODENOSCOPY DIAGNOSTIC [18368 (CPT )] [facility] Comment on above: ESOPHAGOGASTRODUODENOSCOPY DIAGNOSTIC [4 3235 (CPT )] Start: 12-10-2023 End: 12-10-2023 Esophagogastroduodenoscopy transoral diagnostic ESOPHAGOGASTRODUODENOSCOPY DIAGNOSTIC gastroesophageal reflux, nausea, vomiting 12/10/2023 7:30 AM EDT [facility] Start: 12-10-2023 Subsequent hospital visit by physician 12/10/2023 7:30 AM EDT Hospital Encounter [facility] Surgery [address] [place] [phone] Collins Mejia DO [address] [place], [place] [phone] [facility] Start: 12-07-2023 End: 12-07-2023 Patient encounter procedure 12/07/2023 11:00 AM EDT Office Visit [facility] [address] [place] [address] Harley Thacker, BUILDING CLEANING SUPERVISOR-DIETITIAN CHIEF [address] [place] [address], [place] [phone] [facility] Start: 11-28-2023 End: 11-28-2023 Patient encounter procedure 11/28/2023 10:15 AM EDT Office Visit [facility] [address] [address] Pam Mittal MD [address] [facility] [place] [phone] [facility] Start: 11-27-2023 End: 11-27-2023 Patient encounter procedure [facility] Start: 11-21-2023 End: 11-12-2024 Echo complete W/O contrast Echo complete W/O contrast Echocardiography Routine Preoperative clearance Abnormal echocardiogram History of pulmonary embolism Atrial mass Expected: 11/21/2023 (Approximate), Expires: 11/12/2024 [facility] Comment on above: Expected: 11/21/2023 (Approximate), Expi res: 11/12/2024 Start: 11-19-2023 End: 11-19-2023 Admission to same day surgery center 11/19/2023 12:15 PM EDT - 11/19/2023 12:[address] [facility] [address] [place] [phone] Collins Mejia, DO [address] [place] [address] ESOPHAGOGASTRODUODENOSCOPY DIAGNOSTIC [80446 (CPT )] [facility] Comment on above: ESOPHAGOGASTRODUODENOSCOPY DIAGNOSTIC [4 3235 (CPT )] Start: 11-19-2023 End: 11-19-2023 Anesthesia consultation 11/19/2023 12:15 PM [address] Event [facility] [address] [place] [phone] Mayra Raya, DO [address] [place] [address] [facility] Start: 11-19-2023 End: 11-19-2023 Esophagogastroduodenoscopy transoral diagnostic ESOPHAGOGASTRODUODENOSCOPY DIAGNOSTIC gastroesophageal reflux, nausea, vomiting 11/19/2023 12:15 PM EDT [facility] Start: 11-19-2023 Subsequent hospital visit by physician [facility] Start: 11-15-2023 End: 11-12-2024 XR Chest PA and Lateral X-ray chest 2 views Imaging Routine Preoperative clearance Expected: 11/15/2023 (Approximate), Expires: 11/12/2024 [employer] Work Phone: Comment on above: Expected: 11/15/2023 (Approximate), Expi res: 11/12/2024 Start: 11-15-2023 End: 11-15-2023 Patient encounter procedure 11/15/2023 10:30 AM EDT Appointment [facility] [address] [place] [phone] [facility] Start: 11-14-2023 End: 11-14-2023 Patient encounter procedure 11/14/2023 3:15 PM EDT Off ice Visit [facility] [address] [place] [address] Harley Thacker, BUILDING CLEANING SUPERVISOR-DIETITIAN CHIEF [address] [place] [address] [facility] Start: 11-14-2023 End: 11-13-2024 CT Chest WO and CT angiogram Coronary arteries W contrast IV CT angiogram chest Imaging Routine Abnormal echocardiogram History of DVT (deep vein thrombosis) History of pulmonary embolism Factor 5 Leiden mutation, heterozygous ([facility]) 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 ([facility]) Chest discomfort Shortness of breath Atrial mass Expected: 11/14/2023, Expires: 11/13/2024 [facility] Comment on above: Expected: 11/14/2023, Expires: Start: 11-14-2023 End: 11-14-2023 Telemedicine consultation with patient 11/14/2023 9:30 AM EDT Telemedicine [facility] [address] [place] [phone] Claribel Olson LISW [address] [place] [address] [facility] Start: 11-09-2023 End: 11-09-2023 Patient encounter procedure 11/09/2023 9:45 AM EST Procedure visit [facility] - Pre Admit [address] [place] [address] [facility] Pre Ad[facility] Start: 11-07-2023 End: 11-07-2023 Anesthesia consultation 11/07/2023 11:59 PM EST Anesthesia Event [facility] Surgery [address] [address] Mayra Raya, DO [address] [place] [address] [facility] Start: 11-07-2023 End: 11-07-2023 Patient encounter procedure 11/07/2023 10:00 AM EST Office Visit [facility] [address] [place] [phone] Corine Catherine, BUILDING CLEANING SUPERVISOR-DIETITIAN CHIEF [address] [place] [address] [facility] Start: 10-30-2023 End: 10-30-2023 Patient encounter procedure 10/30/2023 9:30 AM EST Off ice Visit [facility] [address] [place] [phone] Claribel Olson LISW [address] [place] [address] [facility] Start: 10-19-2023 End: 10-19-2023 Patient encounter procedure 10/19/2023 10:00 AM EST Office Visit [facility] [address] [place] [phone] Yashira Mi, BUILDING CLEANING SUPERVISOR-DIETITIAN CHIEF [address] [place] [address] [facility] Start: 09-03-2023 Behavioral Health Screening Behavioral Health Screening [facility] Start: 09-03-2023 Depression Assessment Depression Assessment [facility] Start: 05-04-2023 Covid-19 Vaccine ( season) Covid-19 Vaccine ( season) [facility] Start: 05-04-2023 Influenza vaccination [facility] Start: 05-03-2022 Registered Recurring Registered Recurring [facility] - [facility]/P Start: 04-21-2022 Registered Recurring Registered Recurring [facility] - [facility] Start: 04-10-2022 [facility] Work Phone: Start: 04-10-2022 [facility] Work Phone: Start: 04-10-2022 OR Wound Debridement/I&D/Hydradenitis (Right) OR Wound Debridement/I&D/Hydradenitis (Right) [facility] Start: 04-10-2022 End: 04-10-2022 Admission to same day surgery center Departed Surgical Day Care [facility] [place] Start: 04-06-2022 End: 04-06-2022 Patient encounter procedure Departed Clinical [facility] Start: 03-13-2022 End: 03-13-2022 [facility] Work Phone: Start: 02-13-2022 End: 02-13-2022 [facility] Work Phone: Start: 05-04-2020 Influenza vaccination given Sequential Influenza Vacci ne (#1) [facility] Start: 11-17-2019 Screening for malignant neoplasm of cervix HPV Testing [facility] Start: 09-03-2019 DTaP,Tdap and Td Vaccines (8 - Td or Tdap) DTaP,Tdap and Td Vaccines (8 - Td or Tdap) [facility] Start: 09-03-2019 Urine microalbumin profile DTaP,Tdap,Td Vaccine (8 - T d or Tdap) [facility] Start: 06-10-2019 Tetanus vaccination Tetanus: Every 10yrs [facility] Start: 2010 Screening for malignant neoplasm of cervix [facility] Start: 11-17-2007 Adult BMI Follow Up Plan Adult BMI Follow Up Plan [facility] Start: 11-17-2007 Anxiety Screening Anxiety Screening [facility] Start: 11-17-2007 Depression Screening Depression Screening [facility] Start: 11-17-2007 Hepatitis C antibody, confirmatory test Hepatitis C Screening [facility] Start: 11-17-2007 Hepatitis C screening Hepatitis C Screening [facility] Start: 11-17-2007 HIV screening HIV Screening [facility] Start: 2004 HIV screening HIV Screening [facility] Start: 2001 Adolescent depression screening assessment Depression Screening (PHQ9) [facility] Start: 1992 History and physical examination, annual for health maintenance Wellness Visit [facility] Start: 1989 Glaucoma screening Diabetic Ophthalmology Exam [employer] [facility] [employer] Start: 1989 Screening for malignant neoplasm of cervix Pap Smear [facility] Calprotectin [Mass/m ass] in Stool Calprotectin stool Lab Routine Diarrhea, unspecified type 11/07/2023 10:38 PM EST [facility] End: 11-06-2024 Calprotectin stool Calprotectin stool Lab Routine Diarrhea, unspecified type 1 Occurrences starting 11/07/2023 until 11/06/2024 [facility] Comment on above: 1 Occurrences starting 11/07/2023 until 11/06/2024 End: 11-28-2024 CBC W Auto Differential panel - Blood CBC + DIFF Lab Routine Factor V Leiden (HCC) Gastrointestinal hemorrhage, unspecified gastrointestinal hemorrhage type Iron deficiency anemia, unspecified iron deficiency anemia type Every 3 weeks for 6 Occurrences starting 11/29/2023 until 11/28/2024 [facility] Work Phone: Comment on above: Every 3 weeks for 6 Occurrences starting 11/29/2023 until 11/28/2024 End: 11-28-2024 Cobalamin (Vitamin B12) [Mass/volume] in Serum or Plasma VITAMIN B12 BLOOD Lab Routine Factor V Leiden (HCC) Gastrointestinal hemorrhage, unspecified gastrointestinal hemorrhage type Iron deficiency anemia, unspecified iron deficiency anemia type Every 3 weeks for 6 Occurrences starting 11/29/2023 until 11/28/2024 [facility] Work Phone: Comment on above: Every 3 weeks for 6 Occurrences starting 11/29/2023 until 11/28/2024 End: 11-28-2024 Comprehensive metabolic 2000 panel - Serum or Plasma COMP METABOLIC PANEL Lab Routine Factor V Leiden (HCC) Gastrointestinal hemorrhage, unspecified gastrointestinal hemorrhage type Iron deficiency anemia, unspecified iron deficiency anemia type Every 3 weeks for 6 Occurrences starting 11/29/2023 until 11/28/2024 [facility] Work Phone: Comment on above: Every 3 weeks for 6 Occurrences starting 11/29/2023 until 11/28/2024 End: 12-06-2024 Cytopathology procedure, preparation of smear, genital source Pap Smear Pathology and Cytology Routine Wellness examination Encounter for Papanicolaou smear for cervical cancer screening 1 Occurrences starting 12/07/2023 until 12/06/2024 [employer] Work Phone: Comment on above: 1 Occurrences starting 12/07/2023 until 12/06/2024 End: 11-06-2024 Esophagogastroduodenoscopy EGD GI Routine Gastroesophageal reflux disease, unspecified whether esophagitis present Nausea and vomiting, unspecified vomiting type 1 Occurrences starting 11/07/2023 until 11/06/2024 [employer] Work Phone: Comment on above: 1 Occurrences starting 11/07/2023 until 11/06/2024 Esophagogastroduoden oscopy transoral diagnostic ESOPHAGOGASTRODUODENOSCOPY DIAGNOSTIC gastroesophageal reflux, nausea, vomiting [facility] End: 11-28-2024 Ferritin [Mass/volume] in Serum or Plasma FERRITIN BLD Lab Routine Factor V Leiden (HCC) Gastrointestinal hemorrhage, unspecified gastrointestinal hemorrhage type Iron deficiency anemia, unspecified iron deficiency anemia type Every 3 weeks for 6 Occurrences starting 11/29/2023 until 11/28/2024 [facility] Work Phone: Comment on above: Every 3 weeks for 6 Occurrences starting 11/29/2023 until 11/28/2024 End: 11-28-2024 Folate [Mass/volume] in Serum or Plasma FOLATE SERUM Lab Routine Factor V Leiden (HCC) Gastrointestinal hemorrhage, unspecified gastrointestinal hemorrhage type Iron deficiency anemia, unspecified iron deficiency anemia type Every 3 weeks for 6 Occurrences starting 11/29/2023 until 11/28/2024 [facility] Work Phone: Comment on above: Every 3 weeks for 6 Occurrences starting 11/29/2023 until 11/28/2024 End: 12-06-2024 High risk HPV w/yoshi High risk HPV w/yoshi Lab Routine Wellness examination Encounter for Papanicolaou smear for cervical cancer screening 1 Occurrences starting 12/07/2023 until 12/06/2024 [facility] Comment on above: 1 Occurrences starting 12/07/2023 until 12/06/2024 End: 11-28-2024 Iron and Iron binding capacity panel - Serum or Plasma IRON + TIBC Lab Routine Factor V Leiden (HCC) Gastrointestinal hemorrhage, unspecified gastrointestinal hemorrhage type Iron deficiency anemia, unspecified iron deficiency anemia type Every 3 weeks for 6 Occurrences starting 11/29/2023 until 11/28/2024 [facility] Work Phone: Comment on above: Every 3 weeks for 6 Occurrences starting 11/29/2023 until 11/28/2024 Patient Education [facility] Work Phone: Patient referral [facility] Work Phone: [facility] Immunizations Immunization Date Immunization Notes Care Provider Harriet lao 06-15-2014 influenza, seasonal, injectable Harley Thacker BUILDING CLEANING SUPERVISOR-DIETITIAN CHIEF Work Phone: [facility] 06-15-2014 influenza virus vacc ine, unspecified formulation Harley Thacker BUILDING CLEANING SUPERVISOR-DIETITIAN CHIEF Work Phone: [facility] 09-03-2009 diphtheria and tetan us toxoids, adsorbed for pediatric use Harley Thacker BUILDING CLEANING SUPERVISOR-DIETITIAN CHIEF Work Phone: [facility] 06-10-2009 meningococcal polysaccharide (groups A, C, Y and W-135) diphtheria toxoid conjugate vaccine (MCV4P) [facility] 06-10-2009 tetanus toxoid, redu iam diphtheria toxoid, and acellular pertussis vaccine, adsorbed [facility] 06-09-2009 influenza virus vacc ine, whole virus Harley Thacker BUILDING CLEANING SUPERVISOR-DIETITIAN CHIEF Work Phone: [facility] 06-09-2009 influenza, seasonal, injectable [facility] 06-15-2005 influenza virus vacc ine, whole virus Harley Thacker BUILDING CLEANING SUPERVISOR-DIETITIAN CHIEF Work Phone: [facility] 06-15-2005 influenza, seasonal, injectable [facility] 12-14-2003 hepatitis B vaccine, pediatric or pediatric/adolescent dosage [facility] 12-14-2003 hepatitis B vaccine, unspecified formulation Sharif Joseph MD Work Phone: [facility] 08-26-2003 hepatitis B vaccine, pediatric or pediatric/adolescent dosage [facility] 08-26-2003 hepatitis B vaccine, unspecified formulation Sharif Joseph MD Work Phone: [facility] 03-30-2003 hepatitis B vaccine, pediatric or pediatric/adolescent dosage [facility] 03-30-2003 hepatitis B vaccine, unspecified formulation Sharif Joseph MD Work Phone: [facility] 02-22-1996 diphtheria, tetanus toxoids and acellular pertussis vaccine [facility] 02-22-1996 diphtheria, tetanus toxoids and acellular pertussis vaccine, unspecified formulation Harley Thacker BUILDING CLEANING SUPERVISOR-DIETITIAN CHIEF Work Phone: [facility] 12-24-1995 measles, mumps and rubella virus vaccine [facility] 12-24-1995 poliovirus vaccine, inactivated [facility] 12-24-1995 trivalent poliovirus vaccine, live, oral Harley Thacker BUILDING CLEANING SUPERVISOR-DIETITIAN CHIEF Work Phone: [facility] 05-14-1991 diphtheria, tetanus toxoids and acellular pertussis vaccine [facility] 05-14-1991 diphtheria, tetanus toxoids and pertussis vaccine Harley Thacker BUILDING CLEANING SUPERVISOR-DIETITIAN CHIEF Work Phone: [facility] 05-14-1991 haemophilus influenz ae type b vaccine, conjugate unspecified formulation [facility] 05-14-1991 poliovirus vaccine, inactivated [facility] 05-14-1991 trivalent poliovirus vaccine, live, oral Harley Thacker BUILDING CLEANING SUPERVISOR-DIETITIAN CHIEF Work Phone: [facility] 02-26-1991 measles, mumps and rubella virus vaccine [facility] 12-18-1990 haemophilus influenz ae type b vaccine, conjugate unspecified formulation [facility] 07-01-1990 diphtheria, tetanus toxoids and acellular pertussis vaccine [facility] 07-01-1990 diphtheria, tetanus toxoids and pertussis vaccine Harley Thacker BUILDING CLEANING SUPERVISOR-DIETITIAN CHIEF Work Phone: [facility] 04-29-1990 diphtheria, tetanus toxoids and acellular pertussis vaccine [facility] 04-29-1990 diphtheria, tetanus toxoids and pertussis vaccine Harley Thacker BUILDING CLEANING SUPERVISOR-DIETITIAN CHIEF Work Phone: [facility] 04-29-1990 poliovirus vaccine, inactivated [facility] 04-29-1990 trivalent poliovirus vaccine, live, oral Harley Thacker BUILDING CLEANING SUPERVISOR-DIETITIAN CHIEF Work Phone: [facility] 02-27-1990 diphtheria, tetanus toxoids and acellular pertussis vaccine [facility] 02-27-1990 diphtheria, tetanus toxoids and pertussis vaccine Harley Thacker BUILDING CLEANING SUPERVISOR-DIETITIAN CHIEF Work Phone: [facility] 02-27-1990 poliovirus vaccine, inactivated [facility] 02-27-1990 trivalent poliovirus vaccine, live, oral Harley Thacker BUILDING CLEANING SUPERVISOR-DIETITIAN CHIEF Work Phone: [facility] Payers Date Payer Category Payer Medicaid [place] [id number] 2020-Present [id number] 2019 Medicaid [id number] 2019 Medicare MEDICARE MEDICAR E PART A & B [id number] 2019-Present RI [id number] 2019 Medicare [id number] [id number] [id number] 1989 Unknown [id number] 2.16.840.1.662612.3.579.2.903 1989 Unknown [id number] 2.16.840.1.709305.3.579.2.593 1989 Unknown [id number] 2.16.840.1.613251.3.579.2.593 1989 Unknown [id number] 2.16.840.1.555587.3.579.2.593 1989 Unknown [id number] 2.16.840.1.300701.3.579.2.593 1989 Unknown [id number] 2.16.840.1.162829.3.579.2.593 1989 Unknown [id number] 2.16.840.1.500145.3.579.2.593 1989 Unknown [id number] 2.16.840.1.657505.3.579.2.593 1989 Unknown [id number] 2.16.840.1.974027.3.579.2.593 1989 Unknown [id number] 2.16.840.1.906214.3.579.2.593 1989 Unknown [id number] 2.16.840.1.004847.3.579.2.593 1989 Unknown [id number] 2.16.840.1.761639.3.579.2.593 1989 Unknown [id number] 2.16.840.1.851287.3.579.2.593 1989 Unknown [id number] 2.16.840.1.679778.3.579.2.1286 1989 Unknown [id number] 2.16.840.1.475056.3.579.2.1286 1989 Unknown [id number] 2.16.840.1.448677.3.579.2.1285 1989 Unknown [id number] 2.16.840.1.995407.3.579.2.1285 1989 Unknown [id number] 2.16.840.1.013806.3.579.2.1285 1989 Unknown [id number] 2.16.840.1.192456.3.579.2.1285 1989 Unknown [id number] 2.16.840.1.515579.3.579.2.1285 1989 Unknown [id number] 2.16.840.1.485075.3.579.2.1285 1989 Unknown [id number] 2.16.840.1.625157.3.579.2.1285 1989 Unknown [id number] 2.16.840.1.069919.3.579.2.1285 1989 Unknown [id number] 2.16.840.1.898354.3.579.2.1285 1989 Unknown [id number] 2.16.840.1.943528.3.579.2.1285 1989 Unknown [id number] 2.16.840.1.636913.3.579.2.1285 1989 Unknown [id number] 2.16.840.1.430544.3.579.2.1285 1989 Unknown [id number] 2.16.840.1.896639.3.579.2.1285 1989 Unknown [id number] 2.16.840.1.103540.3.579.2.1285 1989 Unknown [id number] 2.16.840.1.121936.3.579.2.1285 1989 Unknown [id number] 2.16.840.1.803223.3.579.2.1285 1989 Unknown [id number] 2.16.840.1.272462.3.579.2.1285 1989 Unknown [id number] 2.16.840.1.692243.3.579.2.1285 1989 Unknown [id number] 2.16.840.1.569206.3.579.2.1285 1989 Unknown [id number] 2.840.1.759340.3.579.2.1285 1989 Unknown [id number] 2.840.1.313756.3.579.2.1285 1989 Unknown [id number] 2..840.1.804292.3.579.2.1285 1989 Unknown [id number] 2.840.1.052767.3.579.2.1285 1989 Unknown [id number] 2.840.1.919751.3.579.2.1285 1989 Unknown [id number] 2.840.1.327022.3.579.2.1285 1989 Unknown [id number] 2.840.1.081507.3.579.2.1285 1989 Unknown [id number] 2.840.1.467724.3.579.2.1285 1989 Unknown [id number] 2.840.1.029678.3.579.2.1285 1989 Unknown [id number] 2.16.840.1.023172.3.579.2.1285 1989 Unknown [id number] 2.16840.1.852868.3.579.2.1285 1989 Unknown [id number] 2.16.840.1.391613.3.579.2. 1989 Unknown [id number] 2.16.840.1.992162.3.579.2.196 1989 Unknown [id number] 2.16.840.1.390330.3.579.2.196 1989 Unknown [id number] 2.16.840.1.632284.3.579.2.196 1989 Unknown [id number] 2.16.840.1.440695.3.579.2.9 1989 Unknown [id number] 2.16.840.1.587116.3.579.2.9 1989 Unknown [id number] 2.16.840.1.315870.3.579.2.1259 1959 Medicaid [id number] 1960 Medicare [id number] 1959 Self-pay [id number] Unknown [id number] 2.16.840.1.469683.3.579.2.531 Social History Date Type Detail Facility Start: 08-02-2020 End: 11-27-2023 Tobacco smoking status NHIS Former smoker [facility] Start: 08-02-2020 End: 11-29-2023 Cigarettes smoked current (pack per day) - Reported [facility] Start: 08-02-2020 End: 11-27-2023 Tobacco use and exposure Never used [facility] Start: 08-02-2020 Alcohol intake Lifetime non-drinker (finding) [facility] Start: 06-03-2020 History SDOH Alcohol Frequency 1 [facility] Start: 1989 Sex Assigned At Not on file [facility] Exposure to SARS-CoV -2 (event) Not sure [facility] Start: 1989 Sex Assigned At Female [facility] End: 09-03-2013 History of tobacco use Current smoker [facility] End: 09-03-2013 History of tobacco use Cigarette Smoker [facility] Start: 10-13-2023 End: 11-27-2023 Alcohol intake Current non-drinker of alcohol (finding) [facility] Start: 10-08-2023 End: 11-29-2023 Tobacco use panel [facility] How hard is it for y ou to pay for the very basics like food, housing, medical care, and heating Somewhat hard [facility] Adolescent depressio n screening assessment 14 [facility] Start: 11-11-2022 Gender identity Identifies as female gender (finding) [facility] Start: 11-11-2022 Sexual orientation Heterosexual (finding) [facility] History of tobacco use Passive smoker [facility] Goals Date Patient Goal Desired Activity /State Clinical Notes 03-01-2022 to 04-10-2024 Telephone Encounter - Bello Sue RN - 04/10/2024 1:15 PM EDTTelephone Encounter - Bello Sue RN - 04/10/2024 1:15 PM EDTTelephone Encounter - Bello Sue RN - 04/08/2024 2:11 PM EDT Note Date & Type Note Facility 04-10-2024 Telephone encounter Note Letter reviewed, signed and faxed to Dr Dickinson's office Bello Sue RN [facility] 04-10-2024 Miscellaneous Notes Letter reviewed, signed and faxed to Dr Dickinson's office Bello Sue RN Letter of medical clearance and for pt to hold anticoagulation for minimum of 3 day (prefers 7) prior to surgery and resume day after. Pt scheduled to have a tubal ligation with endometrial ablation 04/25/24, with Dr Dickinson. Leonard: pt resumed Arixtra 10 mg 12/20/23, after not taking for > 3 years per note. Letter pended to review and sign, if agreeable. Bello Sue RN documented in this encounter [facility] 04-08-2024 Telephone encounter Note Letter of medical clearance and for pt to hold anticoagulation for minimum of 3 day (prefers 7) prior to surgery and resume day after. Pt scheduled to have a tubal ligation with endometrial ablation 04/25/24, with Dr Dickinson. Leonard: pt resumed Arixtra 10 mg 12/20/23, after not taking for > 3 years per note. Letter pended to review and sign, if agreeable. Bello Sue RN [facility] 04-02-2024 Telephone encounter Note Leonard: Please review and advise (Pt lab/OV 04/18/24) Bello Sue RN [facility] 04-02-2024 Miscellaneous Notes Leonard: Please review and advise (Pt lab/OV 04/18/24) Bello Sue RN Records are in. [facility] records pulled through Care Everywhere. So i was talking to someone who has my disorder hs and she told me that there are several people who have this disease and they test positive for mgus should i be tested she was tested through her oncologist. Also i recently had labs done at [facility] and [facility] in [place] my thyroid is really off they did an ultrasound of my thyroid as well that hasnt come back yet. Top 2 are [facility] the rest is [facility] -Margaret Guevara: Please obtain labs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 [address] [place] [address] Referral ID Status Reason Start Date Expiration Date Visits Requested Visits Authorized [id number] Pending Review Specialty Services Required 11/14/2023 11/13/2024 1 1 Specialty Diagnoses / Procedures Referred By Contac t Referred To Contact Diagnoses Preoperative clearance Abnormal echocardiogram History of pulmonary embolism Atrial mass Procedures Echo complete W/O contrast Harley Thacker APRN-DIETITIAN CHIEF [address] [place] [phone] [facility] [address] [place] [address] Phone: [phone] Referral ID Status Reason Start Date Expiration Date V isits Requested Visits Authorized [id number] Pending Review 11/14/2023 11/13/2024 1 1 Additional Source Comments Reason for Visit (unrecogniz ed section and content) Reason Comments Consult LUPUS Status Reason Specialty Diagnoses / Procedures Referred By Contact Referred To Contact Closed Rheumatology Diagnoses Lupus (HCC) Elizabeth Oneill MD [address] [facility] [place] [address] [place] [address] Santiago Shell MD [address] [place] [phone] Reason Comments Establish Care Reason Comments New Patient Specialty Diagnoses / Procedures Referred By Contac t Referred To Contact Psychiatry Diagnoses Bipolar 1 disorder ([facility]) Harley Thacker APRN-CNP [address] [place] [phone] Yashira Mi APRN-DIETITIAN CHIEF [address] [address] [place] [address] Referral ID Status Reason Start Date Expiration Date Visits Requested Visits Authorized [id number] Pending Review Specialty Services Required 10/08/2023 10/07/2024 1 1 Reason Onset Date Comments Med Refill 10/23/2023 Reason Comments Heartburn GERD, vomiting, diar luis, blood in stool, nausea, referred by Harley Thacker CNP Specialty Diagnoses / Procedures Referred By Contac t Referred To Contact General Surgery Diagnoses Gastroesophageal reflux disease, unspecified whether esophagitis present Nausea and vomiting, unspecified vomiting type Harley Thacker APRN-CNP [address] [place] [phone] [facility] Grillis Stuart [address] [place] [address] Referral ID Status Reason Start Date Expiration Date V isits Requested Visits Authorized [id number] Closed Specialty Services Required 10/08/2023 10/07/2024 1 1 Reason Comments Pre-op Exam Surgery scheduled fo r November 19, 2023. Reason Comments PTSD Reason Comments Anxiety Reason Comments Follow-up EST PT F/U EARLY SWE LLING, COUGH SCHED VIA MY CHART L/S MS Reason Comments wellness Reason Comments letter of medical clearance INFORMATION SOURCE (unrecogn ized section and content) DATE CREATED AUTHOR 08/02/2020 [facility] DATE CREATED AUTHOR AUTHOR'S ORGANIZ ATION 10/30/2021 [facility] DATE CREATED AUTHOR AUTHOR'S ORGANIZ ATION 10/07/2022 [facility] DATE CREATED AUTHOR AUTHOR'S ORGANIZ ATION 12/07/2022 [facility] DATE CREATED AUTHOR AUTHOR'S ORGANIZ ATION 11/11/2023 [facility] DATE CREATED AUTHOR AUTHOR'S ORGANIZ ATION 12/25/2023 [facility] DATE CREATED AUTHOR AUTHOR'S ORGANIZ ATION 03/28/2024 [facility] DATE CREATED AUTHOR AUTHOR'S ORGANIZ ATION 03/29/2024 [facility] DATE CREATED AUTHOR AUTHOR'S ORGANIZ ATION 04/08/2024 [facility] DATE CREATED AUTHOR AUTHOR'S ORGANIZ ATION 04/10/2024 [facility] dical Specialists EPIC Care Teams [...] Flanagan PA-C Primary Care Provider Activ e Accounts Payable Payroll Coordinator Relationship Specialty Start Date End Date Harley Thacker APRN-DIETITIAN CHIEF [address] [place] [address], [place] [phone] PCP - General Nurse Practitioner 10/08/23 Nikolaskurt Acuna DIETITIAN CHIEF Nurse Practitioner Family Medicine 11/24/22 Accounts Payable Payroll Coordinator Relationship Specialty Start Date End Date Harley Thacker APRN-DIETITIAN CHIEF [address] [place] [address], [place] [phone] PCP - General Nurse Practitioner 10/08/23 Nikolas Kalpana DIETITIAN CHIEF Nurse Practitioner Family Medicine 11/24/22 Accounts Payable Payroll Coordinator Relationship Specialty Start Date End Date Harley Thacker APRN-DIETITIAN CHIEF [address] [place] [address], [place] [phone] PCP - General Nurse Practitioner 10/08/23 [facility] 11/24/22 Accounts Payable Payroll Coordinator Relationship Specialty Start Date End Date Harley Thacker BUILDING CLEANING SUPERVISOR-DIETITIAN CHIEF [address] [place] [address], [place] [phone] PCP - General Nurse Practitioner 10/08/23 [facility]ition[facility] 11/24/22 Accounts Payable Payroll Coordinator Relationship Specialty Start Date End Date Harley Thacker BUILDING CLEANING SUPERVISOR-DIETITIAN CHIEF [address] [place] [phone] PCP - General Nurse Practitioner 10/08/23 Nikolas Kalpanajolene DIETITIAN CHIEF Nurse Practitioner Family Medicine 11/24/22 Accounts Payable Payroll Coordinator Relationship Specialty Start Date End Date KedarUyenHarley BUILDING CLEANING SUPERVISOR-DIETITIAN CHIEF [address] [place] [address], [place] [phone] PCP - General Nurse Practitioner 10/08/23 [facility]olas [facility] DI[facility] CHIEF Nurse Practitioner Family Medicine 11/24/22 Accounts Payable Payroll Coordinator Relationship Specialty Start Date End Date Harley Thacker APRN-DIETITIAN CHIEF [address] [place] [address], [place] [phone] PCP - General Nurse Practitioner 10/08/23 [facility] Nurse Practitioner Family Medicine 11/24/22 Accounts Payable Payroll Coordinator Relationship Specialty Start Date End Date Kedar Harley BUILDING CLEANING SUPERVISOR-DIETITIAN CHIEF [address] [place] [address], [place] [phone] PCP - General Nurse Practitioner 10/08/23 Nikolaskurt Acuna DIETITIAN CHIEF Nurse Practitioner Family Medicine 11/24/22 Accounts Payable Payroll Coordinator Relationship Specialty Start Date End Date Kedar Harley BUILDING CLEANING SUPERVISOR-DIETITIAN CHIEF [address] [place] [address], [facility] [place] [phone] PCP - General Nurse Practitioner 10/08/23 Nikolaskurt Acuna DIETITIAN CHIEF Nurse Practitioner Family Medicine 11/24/22 Accounts Payable Payroll Coordinator Relationship Specialty Start Date End Date Thacker Harley BUILDING CLEANING SUPERVISOR-DIETITIAN CHIEF [address] [place] [address], [place] [phone] PCP - General Nurse Practitioner 10/08/23 Nikolas [facility] DIETITIAN CHIEF Nurse Practitioner Family Medicine 11/24/22 Accounts Payable Payroll Coordinator Relationship Specialty Start Date End Date Harley Thacker Danita JOSUE BRITO [facility] [place] [address] PCP - General Family Medicine 11/16/23 Accounts Payable Payroll Coordinator Relationship Specialty Start Date End Date Thacker, Harley BUILDING CLEANING SUPERVISOR-DIETITIAN CHIEF [address] [place] [address], [facility] [place] [phone] PCP - General Nurse Practitioner 10/08/23 Nikolaskurt Parrish DIETITIAN CHIEF Nurse Practitioner Family Medicine 11/24/22 Accounts Payable Payroll Coordinator Relationship Specialty Start Date End Date Kedar Harley [address] [address] PCP - General Family Medicine 11/16/23 Accounts Payable Payroll Coordinator Relationship Specialty Start Date End Date Harley Thacker BUILDING CLEANING SUPERVISOR-DIETITIAN CHIEF [address] [place] [address] [place] [phone] PCP - General Nurse Practitioner 10/08/23 Nikolas [facility] DI[facility]ITIAN CHIEF Nurse Practitioner Family Medicine 11/24/22 Accounts Payable Payroll Coordinator Relationship Specialty Start Date End Date ThackerHarley BUILDING CLEANING SUPERVISOR-DIETITIAN CHIEF [address] [place] [address] [place] [phone] PCP - General Nurse Practitioner 10/08/23 Nikolas Parrish DIETITIAN CHIEF Nurse Practitioner Family Medicine 11/24/22 Accounts Payable Payroll Coordinator Relationship Specialty Start Date End Date Harley Thacker APRN-DIETITIAN CHIEF [address] [place] [address], [place] [phone] PCP - General Nurse Practitioner 10/08/23 Nikolas [facility] DIETITIAN CHIEF Nurse Practitioner Family Medicine 11/24/22 Accounts Payable Payroll Coordinator Relationship Specialty Start Date End Date Harley Thacker [address] [address] PCP - General Family Medicine 11/16/23 Accounts Payable Payroll Coordinator Relationship Specialty Start Date End Date Harley Thacker CNP PCP - General Family Medicine 11/16/23 Accounts Payable Payroll Coordinator Relationship Specialty Start Date End Date Harley Thacker CNP PCP - General Family Medicine 11/16/23 Accounts Payable Payroll Coordinator Relationship Specialty Start Date End Date Harley Thacker CNP PCP - General Family Medicine 11/16/23 Team Status: Inactive Member Role Status Dates Dannie Dickinson DO Attending Provider Active Start : April 08, 2024 End: April 08, 2024 Accounts Payable Payroll Coordinator Relationship Specialty Start Date End Date Harley Thacker CNP PCP - General Family Medicine 11/16/23 [...] this encounterNot on filedocumented as of this encounterGoals may be documented in an alternate section Source Comments (unrecognize d section and content) In the event this informatio n is protected by the Federal Confidentiality of Alcohol and Drug Abuse Patient Records regulations: The Federal rules restrict any use of the information to criminally investigate or prosecute any alcohol or drug abuse patient.[facility] the event this information is protected by the Federal Confidentiality of Alcohol and Drug Abuse Patient Records regulations: The Federal rules restrict any use of the information to criminally investigate or prosecute any alcohol or drug abuse patient.[facility] the event this information is protected by the Federal Confidentiality of Alcohol and Drug Abuse Patient Records regulations: The Federal rules restrict any use of the information to criminally investigate or prosecute any alcohol or drug abuse patient.[facility] the event this information is protected by the Federal Confidentiality of Alcohol and Drug Abuse Patient Records regulations: The Federal rules restrict any use of the information to criminally investigate or prosecute any alcohol or drug abuse patient.[facility]In the event this information is protected by the Federal Confidentiality of Alcohol and Drug Abuse Patient Records regulations: The Federal rules restrict any use of the information to criminally investigate or prosecute any alcohol or drug abuse patient.[facility]In the event this information is protected by the Federal Confidentiality of Alcohol and Drug Abuse Patient Records regulations: The Federal rules restrict any use of the information to criminally investigate or prosecute any alcohol or drug abuse patient.[facility] HospitalIn the event this information is protected by the Federal Confidentiality of Alcohol and Drug Abuse Patient Records regulations: The Federal rules restrict any use of the information to criminally investigate or prosecute any alcohol or drug abuse patient.[facility] FOR RECORDS PERTAINING TO PATIENTS WHO [...] BE BASED ON THE PRIMARY CLINICAL RECORDS. [facility] [employer] [facility]. provides no warranty or guarantee of the accuracy or completeness of information in this document.
[2024-04-11 13:32] LABS: Basophils Absolute Auto 0.1 10^3/uL (0.0-0.1); Basophils Percent Auto 0.4 % (0.2-2.0); Eosinophils Absolute Auto 0.2 10^3/uL (0.0-0.7); Eosinophils Percent Auto 1.2 % (0.9-7.0); Hemoglobin 13.6 g/dL (12.0-16.0); Immature Granulocytes Abs Auto 0.08 10^3/uL (0.00-0.03); Immature Granulocytes Pct Auto 0.5 % (0.0-0.5); Lymphocytes Absolute Auto 2.9 10^3/uL (1.2-3.8); Lymphocytes Percent Auto 17.4 % (20.5-60.0); Mean Corpuscular HGB Conc 31.6 g/dL (29.9-35.2); Mean Corpuscular Volume 85.3 fL (81.0-99.0); Mean Platelet Volume 8.8 fL (9.5-13.5); Monocytes Absolute Auto 0.9 10^3/uL (0.3-0.8); Monocytes Percent Auto 5.6 % (1.7-12.0); Neutrophils Absolute Auto 12.4 10^3/uL (1.4-6.5); Neutrophils Percent Auto 74.9 % (43.0-75.0); Platelet Count 380 10^3/uL (150-450); Red Blood Count 5.04 10^6/uL (4.20-5.40); Red Cell Distribution Width 15.3 % (11.0-15.0); White Blood Count 16.5 10^3/uL (4.0-11.0)
[2024-04-11 14:09] LABS: INR 0.95; Partial Thromboplastin Time 30.1 sec (22.3-36.2); Prothrombin Time 10.1 sec (9.0-11.6)
[2024-04-11 14:44] LABS: Anion Gap 9.6; Calcium 8.8 mg/dL (8.5-10.1); Carbon Dioxide 28.4 mmol/L (21.0-32.0); Chloride 102 mmol/L (98-107); Estimated GFR (African America >60 (>=60); Estimated GFR (Non-African Ame >60 (>=60); Glucose 106 mg/dL (74-106); Sodium 136 mmol/L (136-145)
== END 2024-04-11 12:04 | disposition home or self-care (01) ==
LOC: PST 12:04
PROVIDERS: PCP Nurse Practitioner Primary Care; Visit Provider Obstetrics & Gynecology
DX: Z01.812 Encounter for preprocedural laboratory examination (principal); N92.0 Excessive and frequent menstruation with regular cycle; N93.9 Abnormal uterine and vaginal bleeding, unspecified; R10.2 Pelvic and perineal pain
CPT/HCPCS: 80048; 85025; 85610; 85730

== ENCOUNTER 2024-04-14 09:38 | Day surgery (SDC) | payer MEDICARE, MEDICAID, SELFPAY ==
[2024-04-14 10:09] LABS: HCG Qualitative NEGATIVE (NEGATIVE); Internal Control Within Normal Limits
[2024-04-14 10:40] VITALS: BP 131/85; PULSE 89; TEMP 36.4; O2SAT 99
[2024-04-14] MEDS: IOHEXOL 240 MG/ML - 10 ML VIAL INJ (11:01)
[2024-04-14] MEDS: 0.9 % SODIUM CHLORIDE 10 ML SYRINGE - SALINE FLUSH INJ (11:01)
[2024-04-14] MEDS: BUPIVACAINE HCL 0.25% PF 25 MG/10 ML VIAL INJ (11:01)
[2024-04-14] MEDS: TRIAMCINOLONE ACETONIDE 40 MG/ML VIAL 80 MG INJ (11:02)
[2024-04-14] MEDS: LIDOCAINE HCL 2% 400 MG/20 ML MDV 5 ML INJ (11:02)
[2024-04-14 11:03] VITALS: BP 163/74; PULSE 84; PULSE 89; O2SAT 94; O2SAT 98
--- NOTE | 2024-04-14 11:04 | W.PM.PROCNOT ---
Date of procedure: 04/14/24 Pre-op diagnosis: Pain due to lumbar stenosis with neurogenic claudication Post-op diagnosis: same as pre-op Procedure: Procedure: Bilateral L5 selective nerve root block Medications: Bupivacaine 0.25% 2cc, lidocaine 2% 1cc, kenalog 80mg The patient was seen and examined in the preoperative holding area.? Informed consent was obtained and placed on the chart.? Patient was brought to the medical procedure unit and placed in the prone position where a timeout was completed verifying the correct patient, procedure site, position, and planned special equipment using sterile aseptic technique.? Under direct fluoroscopic visualization a 25-gauge Quincke tipped spinal needle was advanced at level left L5-S1 to the designated neural foramen where contrast dye was injected to show adequate spread.? There was no evidence of vascular or adverse uptake.? Epidural spread was appreciated.? The above-mentioned injectate was then placed in a 1.5 mL aliquot preceded by negative aspiration.? The needle was removed. The same procedure, at the same level, was completed on the opposite side. ? Patient was taken to the postprocedural recovery area and monitored for an appropriate length of time before found suitable for discharge in the accompaniment of a responsible adult. Anesthesia: Local Surgeon: Yancy Cancino Pathology: none sent Condition: stable Disposition: no change
[2024-04-14 11:05] VITALS: BP 142/82
== END 2024-04-14 11:18 | disposition home or self-care (01) ==
LOC: SURGOUT 09:39
PROVIDERS: PCP Nurse Practitioner Primary Care; Visit Provider Anesthesiology
DX: M48.062 Spinal stenosis, lumbar region with neurogenic claudication (principal)
CPT/HCPCS: 36415; 64483; 84703; J0665; J3301; Q9966

== ENCOUNTER 2024-04-23 13:01 | Outpatient (OUT) | payer MEDICARE, MEDICAID, SELFPAY ==
--- NOTE | 2024-04-23 13:49 | PM.CN ---
Consult Note: HPI Data of Consult Patient: known to practice within the last 3 years Consult date: 03/10/24 Requesting Physician: Brenda Gonzalez NP Primary Care Provider: Nikolas Kovacs NP Consult Narrative Reason for consult: low back, bilateral leg pain Narrative: 33yof who presents for assessment. continues to have worsening low back and bilateral leg pain and weakness. imaging reviewed, which is significant for multilevel stenosis, worst noted at l5-s1. continues to engage in a series of provider directed home exercises, which have not helped >6 weeks. uses Tylenol #3 gabapentin, flexeril. denies adverse med side effects. recent bilateral l5 SNRB providing mild to moderate ongoing relief. Patients functional score 87% however patient reports benefit from injections and medications. 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 - Hereditary deficiency of other clotting factors (ICD-10) Deep vein thrombosis ?I82.409 - Acute embolism and thrombosis of unspecified deep veins of unspecified lower extremity (ICD-10) Depression ?F32.A - Depression, unspecified (ICD-10) Panic attacks ?F41.0 - Panic disorder [episodic paroxysmal anxiety] (ICD-10) COVID-19 ?U07.1 - COVID-19 (ICD-10) Migraine ?G43.909 - Migraine, unspecified, not intractable, without status migrainosus (ICD-10) Atrial fibrillation ?I48.91 - Unspecified atrial fibrillation (ICD-10) PCOS (polycystic ovarian syndrome) ?E28.2 - Polycystic ovarian syndrome (ICD-10) Pilonidal cyst ?L05.91 - Pilonidal cyst without abscess (ICD-10) Encounter for incision and drainage procedure ?Z76.89 - Persons encountering health services in other specified circumstances (ICD-10) 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 - Methylenetetrahydrofolate reductase deficiency (ICD-10) ?E72.11 - Homocystinuria (ICD-10) Pelvic pain ?R10.2 - Pelvic and perineal pain (ICD-10) Abnormal uterine bleeding (AUB) ?N93.9 - Abnormal uterine and vaginal bleeding, unspecified (ICD-10) Menorrhagia ?N92.0 - Excessive and frequent menstruation with regular cycle (ICD-10) Request for sterilization ?Z30.2 - Encounter for sterilization (ICD-10) Hidradenitis suppurativa ?L73.2 - Hidradenitis suppurativa (ICD-10) Abscess ?L02.91 - Cutaneous abscess, unspecified (ICD-10) Loud snoring ?R06.83 - Snoring (ICD-10) Sleep apnea ?G47.30 - Sleep apnea, unspecified (ICD-10) Osteoarthritis ?M19.90 - Unspecified osteoarthritis, unspecified site (ICD-10) [place]atter's disease ?M92.529 - Juvenile osteochondrosis of tibia tubercle, unspecified leg (ICD-10) Anemia ?D64.9 - Anemia, unspecified (ICD-10) Heartburn ?R12 - Heartburn (ICD-10) Anxiety ?F41.9 - Anxiety disorder, unspecified (ICD-10) Acid reflux ?K21.9 - Gastro-esophageal reflux disease without esophagitis (ICD-10) Factor V Leiden ?D68.51 - Activated protein C resistance (ICD-10) 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 - Autoimmune thyroiditis (ICD-10) Pulmonary embolism ?I26.99 - Other pulmonary embolism without acute cor pulmonale (ICD-10) High cholesterol ?E78.00 - Pure hypercholesterolemia, unspecified (ICD-10) Hypertension ?I10 - Essential (primary) hypertension (ICD-10) Irregular heart beat ?I49.9 - Cardiac arrhythmia, unspecified (ICD-10) Chest pain ?R07.9 - Chest pain, unspecified (ICD-10) Surgical History History of esophagogastroduodenoscopy (EGD) ?Z98.890 - Other specified postprocedural states (ICD-10) S/P surgical removal of pilonidal cyst ?Z98.890 - Other specified postprocedural states (ICD-10) S/P epidural steroid injection ?Z92.241 - Personal history of systemic steroid therapy (ICD-10) Hx of cholecystectomy ?Z90.49 - Acquired absence of other specified parts of digestive tract (ICD-10) H/O partial thyroidectomy ?E89.0 - Postprocedural hypothyroidism (ICD-10) [place] teeth extracted ?K08.409 - Partial loss of teeth, unspecified cause, unspecified class (ICD-10) Hx of tonsillectomy ?Z90.89 - Acquired absence of other organs (ICD-10) History of appendectomy ?Z90.49 - Acquired absence of other specified parts of digestive tract (ICD-10) Family History Other Cancer Factor V deficiency Family history of colon cancer Family history of diabetes mellitus Family history of heart disease Family history of hypertension Family history of myocardial infarction Family history of seizures Family history of stroke Social History Within the past year, how often did you have a drink containing alcohol: never Score interpretation: A score less than 3 is consistent with normal alcohol consumption. Smoking status: Former smoker Non-prescribed substance use: denies use Highest level of school completed/degree received: high school graduate Meds Home Medications and Allergies Home Medications ?Medication ?Instructions ?Recorded ?Confirmed ?Type atomoxetine 60 mg capsule 60 mg PO QDAY 02/01/23 04/14/24 History gabapentin 300 mg capsule 300 mg PO Q8H 02/01/23 04/14/24 History isosorbide mononitrate 10 mg tablet 15 mg PO QDAY 02/01/23 04/14/24 History metoprolol tartrate 50 mg tablet 50 mg PO BID 02/01/23 04/14/24 History (Lopressor) omeprazole 20 mg capsule,delayed 20 mg PO BID 02/01/23 04/14/24 History release rimegepant 75 mg disintegrating 75 mg PO QDAY PRN migraine headache 02/01/23 04/14/24 History tablet (Nurtec ODT) spironolactone 25 mg tablet 25 mg PO QDAY 02/01/23 04/14/24 History acetaminophen 300 mg-codeine 30 mg 1 tab PO BID PRN pain #60 tabs 03/10/24 04/14/24 Rx tablet cyclobenzaprine 10 mg tablet 10 mg PO TID PRN muscle spasm #90 03/10/24 04/14/24 Rx tabs ferrous sulfate 325 mg (65 mg 325 mg PO DAILY 03/10/24 04/14/24 History iron) tablet (Feosol) fondaparinux 10 mg/0.8 mL 10 mg subcut DAILY 03/10/24 04/14/24 History subcutaneous solution syringe hydrochlorothiazide 25 mg tablet 25 mg PO DAILY 03/10/24 04/14/24 History secukinumab 150 mg/mL subcutaneous 300 mg subcut .QMONTH 03/10/24 04/11/24 History syringe (Cosentyx 300 mg/2 Syringes () levothyroxine 50 mcg tablet 50 mcg PO DAILY 04/11/24 04/14/24 History semaglutide 0.25 mg or 0.5 mg (2 0.5 mg subcut QWEEK 04/11/24 04/14/24 History mg/3 mL) subcutaneous pen injector (Ozempic) Allergies Allergy/AdvReac Type Severity Reaction Status Date / Time amoxicillin Allergy Severe Unknown Verified 04/14/24 10:43 cefaclor [From Ceclor] Allergy Severe Unknown Verified 04/14/24 10:43 ciprofloxacin [From Cipro] Allergy Severe Hives Verified 04/14/24 10:43 Estrogens Allergy Severe Unknown Verified 04/14/24 10:43 Sulfa (Sulfonamide Allergy Severe Hives Verified 04/14/24 10:43 Antibiotics) tetanus and diphtheria Allergy Severe Unknown Verified 04/14/24 10:43 toxoids kory Allergy Hives Uncoded 04/11/24 12:49 Exam Constitutional Documenting provider has reviewed patient's vital signs: yes Common normals: no apparent distress, oriented x3, healthy appearing, alert and well nourished General appearance: cooperative Nutritional appearance: obese HENMT Common normals: normocephalic, hearing grossly normal bilaterally and moist oral mucous membranes Head and scalp: normocephalic Eye Common normals: PERRL Pupil: PERRL Neck & C-Spine Common normals: full ROM General: normal visual inspection Chest Common normals: inspection of chest normal Respiratory Common normals: normal respiratory effort, no retractions and no use of accessory muscles Back & Pelvis Lumbar spine/lower back: normal to inspection, ROM limited, pain with ROM, straight leg raise positive right and straight leg raise positive left Sacroiliac joints: SI joint(s) abnormal Other: bilateral sij positive yue(patricks), gaenslens, thigh thrust, compression test sensation diminished in bilateral L5/S1 strength 4/5 in BLE Neuro Common normals: oriented x3, CN's II-XII intact bilaterally, moves all extremities, no focal motor deficits, no sensory deficits noted and deep tendon reflexes 2+ bilaterally Sensorium/orientation: alert Motor exam: strength 5/5 throughout and no movement abnormalities noted Psych Common normals: mental status grossly normal, thought process normal, cooperative, affect normal, speech normal and activity/motor behavior normal Speech: normal speech Thought process: normal thought process Results Additional Findings Additional findings: If on a controlled substance or opioids, I have checked an [place] report on this patient and there are no aberrancies noted in the prescribing history.??If on a controlled substance or opioid a drug screen was completed and reviewed within the last year, and if there has not been a drug screen completed we ordered one today to monitor higher risk, state monitored pain medication use. As part of providing excellent, safe, comprehensive care, the following was completed at our patient's visit: 1. A medication reconciliation and review to ensure accurate knowledge of current/active medications, including asking our patients to inform us about any [id number] medications or herbal remedies/nutritional supplements/alternative remedies. 2. A review to specifically ensure our patients have had annual screening for screening for depression, screening for tobacco use, and screening for unhealthy alcohol use. For concerning screenings had a discussion with the patient, provided patient education, and recommended follow-up with primary care provider when appropriate. If patient noted with a risk of falling, they received education on strength, gait, and balance training to prevent future risk of falling. Assessment and Plan Assessment and Plan (1) Lumbar stenosis with neurogenic claudication: (2) Chronic prescription opiate use: Assessment and Plan: I feel these medications are improving the patient's quality of life and allow them to tolerate activities of daily living as well as participate in recreational activity.? The patient does not report intolerable side effects. The patient is NOT opioid naive and non-pharmacologic and non-opioid treatment has failed to significantly relieve the patient's pain and improve functionality. The patient has a diagnosis that is related to a somatic or visceral pain etiology. ? ?? I reviewed with the patient the potential risks and side effects with the use of? opioid medications including but not limited to respiratory depression,? sedation, and even . I verified the patient has access to naloxone should? these effects occur. I advised the patient to avoid the use of any other? sedation substances including alcohol, THC, and benzodiazepines while? taking opioid medications due to the risk of compounding side effects and? detrimental outcomes. I reviewed the [employer] [facility] [employer], pain treatment agreement, urine? drug screen, and opioid start talking forms. The patient was advised to let? their family know they had Naloxone in case they would need to administer? the medication.? ?? A drug screen was completed within the last year, and no aberrancies were noted regarding their use of controlled substances. The patient understands they are subject to the terms and conditions of the pain contract that they have signed. ? ?? I have checked an [place] report on this patient today and there are no aberrancies noted in the prescribing history.? (3) Lumbar spondylosis: (4) Muscle spasm: (5) DDD (degenerative disc disease): (6) Obesity: Assessment and Plan: on ozempic, working on weight loss Plan continue current medications, reporting benefit without side effects continue HEP as tolerated update lumbar xray with flexion to evaluate stability continue f/u with [facility], upcoming uterine ablation and tubal this sunday. discussed she is to stop tylenol #3 if prescribed any opioids for post-op pain f/u 3 months, sooner if needed
== END 2024-04-23 13:02 | disposition home or self-care (01) ==
LOC: PM 13:02
PROVIDERS: PCP Nurse Practitioner Primary Care; Visit Provider Nurse Practitioner
DX: M48.062 Spinal stenosis, lumbar region with neurogenic claudication (principal); Z79.891 Long term (current) use of opiate analgesic; M47.816 Spondylosis without myelopathy or radiculopathy, lumbar region; M62.838 Other muscle spasm; M51.36 Other intervertebral disc degeneration, lumbar region; E66.9 Obesity, unspecified
CPT/HCPCS: G0463

== ENCOUNTER 2024-04-25 06:12 | Day surgery (SDC) | payer MEDICARE, MEDICAID, SELFPAY ==
[2024-04-11 13:14] VITALS: BP 152/94; PULSE 96; TEMP 36.5; O2SAT 96; BMI 61.5
[2024-04-25] VITALS (8 sets, daily range): BP systolic 112–133; BP diastolic 66–84; PULSE 75–93; TEMP 35.9–36.1; O2SAT 93–98; BMI 61.5
--- OUTSIDE RECORDS SUMMARY | 2024-04-25 06:16 | XMS_ITS | CCD ---
Author Organization [facility] Care Team Providers Care Vice President Of Engineering Name Role Phone MaiElizabeth Primary Care Provider SANTIAGO SHELL Admitting Unavailable MAI ELIZABETH Referring Unavailable SHEMARTrev ELIZABETH Primary Care Unavailable SANTIAGO SHELL Attending Unavailable SHEMARTrev ELIZABETH Primary Care Unavailable SANTIAGO SHELL Attending Unavailable MD John Carlson Attending Provider BRIAN Flanagan Primary Care Provider DO Dominique Garrison Attending Provider [facility] Primary Care Unava ilable KAPOOR ., DR KACEY Jordan Admitting Unavailable KAPOOR ., DR KACEY Jordan Consulting Unavailable KAPOOR ., DR KACEY Jordan Attending Unavailable KAPOOR ., DR KACEY Jordan Admitting Unavailable CERVANTES ., ACE Consulting Unavailable [facility] Unavailable KAPOOR ., DR KACEY Jordan Attending Unavailable [facility] Unavailable CERVANTES ., ACE Consulting Unavailable KAPOOR ., DR KACEY Jordan Admitting Unavailable KAPOOR ., DR KACEY Jordan Attending Unavailable SHAMMO, INKOLAS Primary Care Unavailable LAKSHMIPATHY ., NETTE Attending Norma vailable LAKSHMIPATHY ., NETTE Admitting Norma vailable KAPOOR ., DR KACEY Jordan Admitting Unavailable SHAMMO, NIKOLAS Primary Care Unavailable CERVANTES ., ACE Consulting Unavailable KAPOOR ., DR KACEY Jordan Attending Unavailable SHAMMO, NIKOLAS Admitting Unavailable SHAMMO, NIKOLAS Primary Care Unavailable SHAMMO, NIKOLAS Attending Unavailable [facility] Care Unava ilable CERVANTES ., ACE [...] ANTWON ., DR KACEY Jordan Attending Unavailable [facility] Unava ilable CERVANTES ., ACE Consulting Unavailable ANTWON ., DR KACEY Jordan Admitting Unavailable [facility] Provider CORINE CATHERINE Referring Unavailable THACKER, HARLEY Primary Care Unavailable Thacker, Harley Primary Care Provider [phone] THACKER, HARLEY Referring Unavailable THACKER, HARLEY Primary [...] Unavailable THACKER, HARLEY Primary Care Unavailable Thacker FURNITURE DECALS INSPECTOR, Harley Kendell Primary [facility] er Barak CORTES, Andrius Cunningham Attending Unavailable [...] Referring Unavailable THACKER, HARLEY Primary Care Unavailable WHITNEYCLARIBEL Attending Unavailable THACKER, [...] Allopurinol; Translations: [ALLOPURINOL] Drug Allergy 05-12-20 20 [facility] (20 sources) Amoxicillin; Translations: [AMOXICILLIN] Drug Allergy 04-28-20 13 [facility] (20 sources) Cefaclor; Translations: [CEFACLOR] Drug Allergy 04-28-20 13 Hives, Other (See Comments), Rash, Unknown [facility] (20 sources) Ciprofloxacin; Translations: [CIPROFLOXACIN] Drug Allergy 09-03-19 20 [facility] (20 sources) Estrogens; Translations: [ESTROGENS] Drug Allergy 01-29-20 15 Other (See Comments), Unknown [facility] (20 sources) Penicillins; Translations: [PENICILLINS] Propensity to adverse reactions to drug 02-15-20 13 Hives, Rash [facility] (20 sources) Sulfonamides (Antibiotic); Translations: [SULFA (SULFONAMIDE ANTIBIOTICS)] Propensity to adverse reactions to drug 09-03-19 [facility] (6 sources) Sulfamethoxazole Drug Allergy 02-01-20 [facility] (17 sources) Trimethoprim; Translations: [TRIMETHOPRIM] Drug Allergy 02-01-20 [facility] (6 sources) DPT Allergy to substance 02-01-20 Redness of Skin [facility] (6 sources) surgical kory Allergy to substance 02-01-20 [facility] (6 sources) hormones Propensity to adverse reactions 02-01-20 will cause blood clots [facility] (2 sources) Amoxicillin Drug Allergy [facility] (2 sources) Cefaclor Drug Allergy [facility] (2 sources) Ciprofloxacin Drug Allergy 09-03-19 [facility] (2 sources) Sulfonamides (Antibiotic) Drug allergy (disorder) 09-03-19 [facility] (20 sources) Cephalosporins (Antibiotic); Translations: [CEPHALOSPORINS] Propensity to adverse reactions to drug 06-13-20 22 [facility] (20 sources) Sulfamethoxazole / Trimethoprim; Translations: [SULFAMETHOXAZOLE-T RIMETHOPRIM] Drug Allergy 06-16-20 16 Rash, Unknown [facility] (20 sources) Diphtheria,Pertussi s,Tetanus; Translations: [DIPHTHERIA,PERTUSS IS,TETANUS] Propensity to adverse reactions to drug 04-28-20 13 [facility] (20 sources) Other; Translations: [OTHER] Propensity to adverse reactions 02-29-20 16 Rash [facility] (20 sources) Pertussis Vaccines; Translations: [PERTUSSIS VACCINES] Propensity to adverse reactions to drug 04-24-20 18 Unknown [facility] (20 sources) Tetanus Vaccines And Toxoid; Translations: [TETANUS VACCINES AND TOXOID] Propensity to adverse reactions to drug 02-29-20 16 [facility] (11 sources) Tetanus And Diphtheria Toxoids; Translations: [TETANUS AND DIPHTHERIA TOXOIDS] Drug Allergy 06-25-20 23 Unknown [facility] Medications Current Medications Medication Drug Class(es) [...] Active Start: 10-19-2017 take 1 capsule by [facility] every week Cholecalciferol, Vitamin D3, 10,000 [...] 12/20/2023 12/14/2024 Active Start: 10-28-2020 End: 12-20-2023 D28-xuizhnhngjzf calcium-B6 (FOLTX) 2-1.13-25 mg tab Indications: Factor V Leiden (HCC) Take 1 tablet by mouth once daily. 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) use of anticoagulants; Translations: [POLYGRAPH TECHNICIAN CURRNT USE ANTICOAGULANTS] Onset: Episodic Other and [...] Test Name Value Interpretation Reference Range Facility [facility] 04-22-2024 [facility] Telephone (HEMASA) MARGARET PRIETO ([id number]) 1990 F Date Time Provider Department 04/22/24 [...] Status:Closed by AMARILYS ROBLES on 04/22/24 Normal [facility] CBC W Auto Differential pane l (Bld)on 04-18-2024 Basophils (Bld) [#/Vol] 0.06 10*3/uL Normal <0.11 [facility] Comment on above: Order Comment: Speci men Type: BLOOD SPECIMEN Ordering Facility: [facility] Address: [address] [place] [address] Performed By: #### 5 7021-8 #### [facility] CLIA [id number] [address] [place] [address] 32774 Basophils/100 WBC (Bld) 0.3 % Normal [facility] Comment on above: Order Comment: Speci men Type: BLOOD SPECIMEN Ordering Facility: [facility] Address: [address] [place] [address] Performed By: #### 5 7021-8 #### [facility] CLIA [id number] [address] [place] [address] 84387 Differential cell count method Nom (Bld) Auto Normal [facility] Comment on above: Order Comment: Speci men Type: BLOOD SPECIMEN Ordering Facility: [facility] Address: [address] [place] [address] Performed By: #### 5 7021-8 #### [facility] CLIA [id number] [address] [place] [address] 36970 Eosinophils (Bld) [#/Vol] 0.13 10*3/uL Normal <0.46 [facility] Comment on above: Order Comment: Speci men Type: BLOOD SPECIMEN Ordering Facility: [facility] Address: [address] [place] [address] Performed By: #### 5 7021-8 #### [facility] CLIA [id number] [address] [place] [address] 34780 Eosinophils/100 WBC (Bld) 0.8 % Normal [facility] Comment on above: Order Comment: Speci men Type: BLOOD SPECIMEN Ordering Facility: [facility] Address: [address] [place] [address] Performed By: #### 5 7021-8 #### [facility] CLIA [id number] [address] [place] [address] Erythrocyte distribution width (RBC) [Ratio] 15.6 % High 11.5-15.0 [facility] Comment on above: Order Comment: Speci men Type: BLOOD SPECIMEN Ordering Facility: [facility] Address: [address] [place] [address] Performed By: #### 5 7021-8 #### [facility] CLIA [id number] [address] [place] [address] 88864 Hematocrit (Bld) [Volume fraction] 41.3 % Normal 36.0-46.0 [facility] Comment on above: Order Comment: Speci men Type: BLOOD SPECIMEN Ordering Facility: [facility] Address: [address] [place] [address] Performed By: #### 5 7021-8 #### [facility] CLIA [id number] [address] [place] [address] 98964 Hemoglobin (Bld) [Mass/Vol] 13.8 g/dL Normal 11.5-15.5 [facility] Comment on above: Order Comment: Speci men Type: BLOOD SPECIMEN Ordering Facility: [facility] Address: [address] [place] [address] Performed By: #### 5 7021-8 #### [facility] CLIA [id number] [address] [place] [address] 33176 Immature granulocytes (Bld) [#/Vol] 0.11 10*3/uL High <0.10 [facility] Comment on above: Order Comment: Speci men Type: BLOOD SPECIMEN Ordering Facility: [facility] Address: [address] [place] [address] Performed By: #### 5 7021-8 #### [facility] CLIA [id number] [address] [place] [address] 64997 Immature granulocytes/100 WBC (Bld) 0.6 % Normal [facility] Comment on above: Order Comment: Speci men Type: BLOOD SPECIMEN Ordering Facility: [facility] Address: [address] [place] [address] Performed By: #### 5 7021-8 #### [facility] CLIA [id number] [address] [place] [address] 80388 Lymphocytes (Bld) [#/Vol] 2.66 10*3/uL Normal 1.00-4.00 [facility] Comment on above: Order Comment: Speci men Type: BLOOD SPECIMEN Ordering Facility: [facility] Address: [address] [place] [address] Performed By: #### 5 7021-8 #### [facility] CLIA [id number] [address] [place] [address] 39015 Lymphocytes/100 WBC (Bld) 15.4 % Normal [facility] Comment on above: Order Comment: Speci men Type: BLOOD SPECIMEN Ordering Facility: [facility] Address: [address] [place] [address] Performed By: #### 5 7021-8 #### [facility] CLIA [id number] [address] [place] [address] 21959 MCH (RBC) [Entitic mass] 27.4 pg Normal 26.0-34.0 [facility] Comment on above: Order Comment: Speci men Type: BLOOD SPECIMEN Ordering Facility: [facility] Address: [address] [place] [address] Performed By: #### 5 7021-8 #### [facility] CLIA [id number] [address] [place] [address] 10793 MCHC (RBC) [Mass/Vol] 33.4 g/dL Normal 30.5-36.0 [facility] Comment on above: Order Comment: Speci men Type: BLOOD SPECIMEN Ordering Facility: [facility] Address: [address] [place] [address] Performed By: #### 5 7021-8 #### [facility] CLIA [id number] [address] [place] [address] 29744 MCV (RBC) [Entitic vol] 82.1 fL Normal 80.0-100.0 [facility] Comment on above: Order Comment: Speci men Type: BLOOD SPECIMEN Ordering Facility: [facility] Address: [address] [id number] Performed By: #### 5 7021-8 #### [facility] CLIA [id number] [address] [place] [address] 04038 Monocytes (Bld) [#/Vol] 1.20 10*3/uL High <0.87 [facility] Comment on above: Order Comment: Speci men Type: BLOOD SPECIMEN Ordering Facility: [facility] Address: [address] [place] [address] Performed By: #### 5 7021-8 #### [facility] CLIA [id number] [address] [place] [address] 56387 Monocytes/100 WBC (Bld) 6.9 % Normal [facility] Comment on above: Order Comment: Speci men Type: BLOOD SPECIMEN Ordering Facility: [facility] Address: [address] [place] [address] Performed By: #### 5 7021-8 #### [facility] CLIA [id number] [address] [place] [address] 79836 Neutrophils (Bld) [#/Vol] 13.11 10*3/uL High 1.45-7.50 [facility] Comment on above: Order Comment: Speci men Type: BLOOD SPECIMEN Ordering Facility: [facility] Address: [address] [place] [address] Performed By: #### 5 7021-8 #### [facility] CLIA [id number] [address] [place] [address] 12415 Neutrophils/100 WBC (Bld) 76.0 % Normal [facility] Comment on above: Order Comment: Speci men Type: BLOOD SPECIMEN Ordering Facility: [facility] Address: [address] [place] [address] Performed By: #### 5 7021-8 #### [facility] CLIA [id number] [address] [place] [address] Nucleated RBC (Bld) [#/Vol] 10*3/uL Normal <0.01 [facility] Comment on above: Order Comment: Speci men Type: BLOOD SPECIMEN Ordering Facility: [facility] Address: [address] [place] [address] Performed By: #### 5 7021-8 #### [facility] CLIA [id number] [address] [place] [address] Nucleated RBC/100 WBC (Bld) [Ratio] 0.0 /100 WBC Normal [facility] Comment on above: Order Comment: Speci men Type: BLOOD SPECIMEN Ordering Facility: [facility] Address: [address] [place] [address] Performed By: #### 5 7021-8 #### [facility] CLIA [id number] [address] [place] [address] 06960 Platelet mean volume (Bld) [Entitic vol] 8.6 fL Low 9.0-12.7 [facility] Comment on above: Order Comment: Speci men Type: BLOOD SPECIMEN Ordering Facility: [facility] Address: [address] [place] [address] Performed By: #### 5 7021-8 #### [facility] CLIA [id number] [address] [place] [address] 09926 Platelets (Bld) [#/Vol] 329 10*3/uL Normal 150-400 [facility] Comment on above: Order Comment: Speci men Type: BLOOD SPECIMEN Ordering Facility: [facility] Address: [address] [place] [address] Performed By: #### 5 7021-8 #### [facility] CLIA [id number] [address] [place] [address] 01930 RBC (Bld) [#/Vol] 5.03 10*6/uL Normal 3.90-5.20 [facility] Comment on above: Order Comment: Speci men Type: BLOOD SPECIMEN Ordering Facility: [facility] Address: [address] [place] [address] Performed By: #### 5 7021-8 #### [facility] CLIA [id number] [address] [place] [address] 17550 WBC (Bld) [#/Vol] 17.27 10*3/uL High 3.70-11.00 [facility] Comment on above: Order Comment: Speci men Type: BLOOD SPECIMEN Ordering Facility: [facility] Address: [address] [place] [address] Performed By: #### 5 7021-8 #### [facility] CLIA [id number] [address] [place] [address] CNOVSPon 04-18-2024 CNOVSP Visit (SP) Office (HEMASA) MARGARET PRIETO ([id number]) 1990 F Date Time Provider Department 04/18/24 11:30 AM SHARIF JOSEPH HEMBOB During your visit today, we recorded the following information about you: Temperature Pulse Respiration Blood pressure 97 degrees 75/minute 18/minute 155/76 Weight Last Period 165.8 kg 04/04/24 Sharif Joseph MD 04/19/2024 2:40 PM Signed NAME: Margaret Prieto CLINIC NO.: [id number] DATE OF SERVICE: April 18, 2024 (Jonelle) Some elements in this clinic note that are critical to medical decision making have been carefully reviewed and included from a prior clinic note dated: December 20, 2023 (Jonelle) Referring Provider: Harley Thacker APRN-FURNITURE DECALS INSPECTOR Additional Clinicians involved in Margaret Mgtonimeenakshi's care: [...] to resume (more content not included)... Normal [facility] Comprehensive metabolic 2000 panelon 04-18-2024 Albumin [Mass/Vol] 3.8 g/dL Low 3.9-4.9 [facility] Comment on above: Order Comment: Speci men Type: BLOOD SPECIMEN Ordering Facility: [facility] Address: [address] [place] [address], [address], [place] [address] Performed By: #### I NFTBP #### [facility] CLIA [id number] [address] [place] [id number] [place] ALP [Catalytic activity/Vol] 95 U/L Normal 34-123 [facility] Comment on above: Order Comment: Speci men Type: BLOOD SPECIMEN Ordering Facility: [facility] Address: [address] [place] [address], [address], [place] [address] Performed By: #### I NFTBP #### [facility] CLIA [id number] [address] [place] [address] [place] ALT [Catalytic activity/Vol] 22 U/L Normal 7-38 [facility] Comment on above: Order Comment: Speci men Type: BLOOD SPECIMEN Ordering Facility: [facility] Address: [address] [place] [address], [address], [place] [address] Performed By: #### I NFTBP #### [facility] CLIA [id number] [address] [place] [address] [place] Anion gap [Moles/Vol] 8 mmol/L Normal 8-15 [facility] Comment on above: Order Comment: Speci men Type: BLOOD SPECIMEN Ordering Facility: [facility] Address: [address] [place] [address], [address] [id number] Performed By: #### I NFTBP #### [facility] CLIA [id number] [address] [place] [address] [place] AST [Catalytic activity/Vol] 12 U/L Low 13-35 [facility] Comment on above: Order Comment: Speci men Type: BLOOD SPECIMEN Ordering Facility: [facility] Address: [address] [place] [address], [address], [place] [address] Performed By: #### I NFTBP #### [facility] CLIA [id number] [address] [place] [id number] [place] Bilirubin [Mass/Vol] 0.3 mg/dL Normal 0.2-1.3 [facility] Comment on above: Order Comment: Speci men Type: BLOOD SPECIMEN Ordering Facility: [facility] Address: [address] [place] [address], [address], [place] [address] Performed By: #### I NFTBP #### [facility] CLIA [id number] [address] [address] [place] Calcium [Mass/Vol] 9.2 mg/dL Normal 8.5-10.2 [facility] Comment on above: Order Comment: Speci men Type: BLOOD SPECIMEN Ordering Facility: [facility] Address: [address] [place] [address], [address], [place] [address] Performed By: #### I NFTBP #### [facility] CLIA [id number] [address] [place] [address] [place] Chloride [Moles/Vol] 103 mmol/L Normal 98-107 [facility] Comment on above: Order Comment: Speci men Type: BLOOD SPECIMEN Ordering Facility: [facility] Address: [address] [place] [address], [address], [place] [address] Performed By: #### I NFTBP #### [facility] CLIA [id number] [address] [place], [place] [id number] [place] CO2 [Moles/Vol] 27 mmol/L Normal 22-30 [facility] Comment on above: Order Comment: Speci men Type: BLOOD SPECIMEN [facility] Address: [address] [place] [address], [address], [place] [address] Performed By: #### I NFTBP #### [facility] CLIA [id number] [address] [place], [place] [id number] [place] Creatinine [Mass/Vol] 0.86 mg/dL Normal 0.58-0.96 [facility] Comment on above: Order Comment: Speci men Type: BLOOD SPECIMEN [facility] Address: [address] [place] [address], [address] [address] Performed By: #### I NFTBP #### [facility] CLIA [id number] [address] [place] [address] [place] Creatinine and Glomerular filtration rate.predicted panel (S/P/Bld) 91 mL/min/1.73m??? Normal >=60 [facility] Comment on above: Order Comment: Nima macias Type: BLOOD SPECIMEN Ordering Facility: [facility] Address: [address] [place] [address], [address] [place] [address] Result Comment: Faye mated Glomerular Filtration Rate [...] GFR. Performed By: #### I NFTBP #### [facility] CLIA [id number] [address] [place] [address] [place] Glucose [Mass/Vol] 108 mg/dL High 74-99 [facility] Comment on above: Order Comment: Nima macias Type: BLOOD SPECIMEN Ordering Facility: [facility] Address: [address] [place] [address], [address] [place] [address] Result Comment: The [place] [employer] (ADA) provides guidance for cutoff [...] Standards of Medical Care in Diabetes 2016, [place] [employer] Association. Diabetes Care. 2016.39(Suppl 1). Performed By: #### I NFTBP #### [facility] CLIA [id number] [address] [address] [place] Potassium [Moles/Vol] 4.5 mmol/L Normal 3.7-5.1 [facility] Comment on above: Order Comment: Speci men Type: BLOOD SPECIMEN Ordering Facility: [facility] Address: [address] [place] [address], [address], [place] [address] Performed By: #### I NFTBP #### [facility] CLIA [id number] [address] [place], [place] [address] [place] Protein [Mass/Vol] 7.6 g/dL Normal 6.3-8.0 [facility] Comment on above: Order Comment: Speci men Type: BLOOD SPECIMEN Ordering Facility: [facility] Address: [address] [place] [address], [address], [place] [address] Performed By: #### I NFTBP #### [facility] IA [id number] [address] [place], [place] [id number] [place] Sodium [Moles/Vol] 138 mmol/L Normal 136-144 [facility] Comment on above: Order Comment: Speci men Type: BLOOD SPECIMEN Ordering Facility: [facility] Address: [address] [place] [address], [address], [place] [address] Performed By: #### I NFTBP #### [facility] CLIA [id number] [address] [place] [address] [place] Urea nitrogen [Mass/Vol] 18 mg/dL Normal 7-21 [facility] Comment on above: Order Comment: Speci men Type: BLOOD SPECIMEN Ordering Facility: [facility] Address: [address] [place] [address], [address], [place] [address] Performed By: #### I NFTBP #### [facility] IA [id number] [address] [place], [place] [address] [place] Ferritin SerPl-mCncon 2023 Ferritin [Mass/Vol] 59.3 ng/mL Normal 14.7-205.1 [facility] Comment on above: Order Comment: Speci men Type: BLOOD SPECIMEN Ordering Facility: [facility] Address: [address] [place] [address], [address], [place] [address] Performed By: #### I NFTBP #### [facility] CLIA [id number] [address] [place] [address] [place] Folate SerPl-mCncon 04-18-20 24 Folate [Mass/Vol] 16.8 ng/mL Normal >4.7 [facility] Comment on above: Order Comment: Speci men Type: BLOOD SPECIMEN Ordering Facility: [facility] Address: [address] [place] [address], [address], [place] [address] Performed By: #### I NFTBP #### [facility] CLIA [id number] [address] [place] [address] [place] Iron and Iron binding capaci ty panelon 04-18-2024 Iron [Mass/Vol] 57 ug/dL Normal 41-186 [facility] Comment on above: Order Comment: Speci men Type: BLOOD SPECIMEN Ordering Facility: [facility] Address: [address] [place] [address], [address], [place] [address] Performed By: #### I NFTBP #### [facility] CLIA [id number] [address] [place] [address] [place] Iron binding capacity [Mass/Vol] 390 ug/dL High 232-386 [facility] Comment on above: Order Comment: Speci men Type: BLOOD SPECIMEN Ordering Facility: [facility] Address: [address] [place] [address], [address], [place] [address] Performed By: #### I NFTBP #### [facility] CLIA [id number] [address] [place] [address] [place] Iron/TIBC [Molar ratio] 14.6 % Low 15.0-57.0 [facility] Comment on above: Order Comment: Speci men Type: BLOOD SPECIMEN Ordering Facility: [facility] Address: [address] [place] [address], [place] [address] Performed By: #### I NFTBP #### [facility] CLIA [id number] [address] [place] [address] [place] Vit B12 [facility] Cobalamin (Vitamin B12) [Mass/Vol] 802 pg/mL Normal 232-1245 [facility] Comment on above: Order Comment: Nima macias Type: BLOOD SPECIMEN Ordering Facility: [facility] Address: [address] [place] [address], [place] [address] Performed By: #### I NFTBP #### [facility] CLIA [id number] [address] [place] [address] [place] CNPNon 04-08-2024 CNPN Telephone (HEMASA) MARGARET PRIETO ([id number]) 1990 F Date Time Provider Department 04/08/24 [...] Status:Closed by BELLO SUE on 04/10/24 Normal [facility] 04-02-2024 CNPN Telephone (HEMASA) MARGARET PRIETO ([id number]) 1990 F Date Time Provider Department 04/02/24 [...] Also i recently had labs done at [facility] and [facility] in [place] my thyroid is really off they did an ultrasound of my thyroid as well that hasnt come back yet. [facility] -Cameron Paola: Please obtain labs ([facility]) and US ([facility]) for Leonard to review. [facility]/2024 10:38 AM Signed Records are [...] next appointment. I assume your PCP or pet counselor is managing your TSH / thyroid? Bello Sue RN 04/15/2024 9:16 AM Signed Responded via [employer] Bello Sue RN Allergies As of Date: [...] Status:Closed by BELLO SUE on 04/07/24 Normal [facility] BLOOD TB SCREENon 12-20-2023 M. tuberculosis tuberculin stim IFN-g Ql (Bld) Negative Normal [facility] Comment on above: Order Comment: Speci men Type: BLOOD SPECIMEN Ordering Facility: [facility] Address: [address] [place] [address], [address], [place] [address] Performed By: #### I NFTBP #### [facility] CLIA [id number] [address] [place] [address] [place] MITOGEN MINUS NIL >9.99 Normal >=0.50 [facility] Comment on above: Order Comment: Speci men Type: BLOOD SPECIMEN Ordering Facility: [facility] Address: [address] [place] [address], [address] [address] Performed By: #### I NFTBP #### [facility] CLIA [id number] [address] [place] [address] OF [place] TB GAMMA INTERPRETATION Infection with M. tuberculosis complex is unlikely. If latent tuberculosis infection is highly suspected, a negative result does not rule out the infection. Specimens from immunocompromised patients and those <5 years of age may show false negative results. In case of a contact investigation, please repeat 8-12 weeks after a known exposure. Normal [facility] Comment on above: Order Comment: Speci men Type: BLOOD SPECIMEN Ordering Facility: [facility] Address: [address] [place] [address], [address] [place] [address] Performed By: #### I NFTBP #### [facility] CLIA [id number] [address] [place] [address] TB NIL 0.01 IU/mL Normal <=8.00 [facility] Comment on above: Order Comment: Speci men Type: BLOOD SPECIMEN [facility] Address: [address] [place] [address], [address], [place] [address] Performed By: #### I NFTBP #### [facility] CLIA [id number] [address] [place] [address] OF [place] TB1 AG MINUS NIL 0.00 IU/mL Normal <0.35 [facility] Comment on above: Order Comment: Speci men Type: BLOOD SPECIMEN [facility] Address: [address] [place] [address], [address], [place] [address] Performed By: #### I NFTBP #### [facility] CLIA [id number] [address] [place] [address] [place] TB2 AG MINUS NIL 0.00 IU/mL Normal <0.35 [facility] Comment on above: Order Comment: Speci men Type: BLOOD SPECIMEN Ordering Facility: [facility] Address: [address] [place] [address], [address] [address] Performed By: #### I NFTBP #### [facility] CLIA [id number] [address] [place] [address] [place] CBC W Auto Differential pane l (Bld)on 12-20-2023 Basophils (Bld) [#/Vol] 0.05 10*3/uL Normal <0.11 [facility] Comment on above: Order Comment: Speci men Type: BLOOD SPECIMENOrdering Facility: [facility] Address: [address] [place] [address] Performed By: #### 5 7021-8 ####[facility] [id number] [place] [address] Basophils/100 WBC (Bld) 0.5 % Normal [facility] Comment on above: Order Comment: Speci men Type: BLOOD SPECIMENOrdering Facility: [facility] Address: [address] [place] [address] Performed By: #### 5 7021-8 ####[facility] [id number] [place] [address] Differential cell count method Nom (Bld) Auto Normal [facility] Comment on above: Order Comment: Speci men Type: BLOOD SPECIMENOrdering Facility: [facility] Address: [address] [place] [address] Performed By: #### 5 7021-8 ####[facility] [id number] [place] [address] Eosinophils (Bld) [#/Vol] 0.26 10*3/uL Normal <0.46 [facility] Comment on above: Order Comment: Speci men Type: BLOOD SPECIMENOrdering Facility: [facility] Address: [address] [place] [address] Performed By: #### 5 7021-8 ####[facility] [id number] [place] [address] Eosinophils/100 WBC (Bld) 2.6 % Normal [facility] Comment on above: Order Comment: Speci men Type: BLOOD SPECIMENOrdering Facility: [facility] Address: [address] [place] [address] Performed By: #### 5 7021-8 ####[facility] [id number] [place] [address] Erythrocyte distribution width (RBC) [Ratio] 14.6 % Normal 11.5-15.0 [facility] Comment on above: Order Comment: Speci men Type: BLOOD SPECIMENOrdering Facility: [facility] Address: [address] [place] [address] Performed By: #### 5 7021-8 ####[facility] [id number] [place] [address] Hematocrit (Bld) [Volume fraction] 40.9 % Normal 36.0-46.0 [facility] Comment on above: Order Comment: Speci men Type: BLOOD SPECIMENOrdering Facility: [facility] Address: [address] [place] [address] Performed By: #### 5 7021-8 ####[facility] [id number] [place] [address] Hemoglobin (Bld) [Mass/Vol] 13.1 g/dL Normal 11.5-15.5 [facility] Comment on above: Order Comment: Speci men Type: BLOOD SPECIMENOrdering Facility: [facility] Address: [address] [place] [address] Performed By: #### 5 7021-8 ####[facility] [id number] [place] [address] Immature granulocytes (Bld) [#/Vol] 0.04 10*3/uL Normal <0.10 [facility] Comment on above: Order Comment: Speci men Type: BLOOD SPECIMENOrdering Facility: [facility] Address: [address] [place] [address] Performed By: #### 5 7021-8 ####[facility] [id number] [place] [address] Immature granulocytes/100 WBC (Bld) 0.4 % Normal [facility] Comment on above: Order Comment: Speci men Type: BLOOD SPECIMENOrdering Facility: [facility] Address: [address] [place] [address] Performed By: #### 5 7021-8 ####[facility] [id number] [place] [address] Lymphocytes (Bld) [#/Vol] 1.75 10*3/uL Normal 1.00-4.00 [facility] Comment on above: Order Comment: Speci men Type: BLOOD SPECIMENOrdering Facility: [facility] Address: [address] [place] [address] Performed By: #### 5 7021-8 ####[facility] [id number] [place] [address] Lymphocytes/100 WBC (Bld) 17.4 % Normal [facility] Comment on above: Order Comment: Speci men Type: BLOOD SPECIMENOrdering Facility: [facility] Address: [address] [place] [address] Performed By: #### 5 7021-8 ####[facility] [id number] [place] [address] MCH (RBC) [Entitic mass] 25.6 pg Low 26.0-34.0 [facility] Comment on above: Order Comment: Speci men Type: BLOOD SPECIMENOrdering Facility: [facility] Address: [address] [place] [address] Performed By: #### 5 7021-8 ####[facility] [id number] [place] [address] MCHC (RBC) [Mass/Vol] 32.0 g/dL Normal 30.5-36.0 [facility] Comment on above: Order Comment: Speci men Type: BLOOD SPECIMENOrdering Facility: [facility] Address: [address] [place] [address] Performed By: #### 5 7021-8 ####[facility] [id number] [place] [address] MCV (RBC) [Entitic vol] 79.9 fL Low 80.0-100.0 [facility] Comment on above: Order Comment: Speci men Type: BLOOD SPECIMENOrdering Facility: [facility] Address: [address] [place] [address] Performed By: #### 5 7021-8 ####[facility] [id number] [place] [address] Monocytes (Bld) [#/Vol] 0.57 10*3/uL Normal <0.87 [facility] Comment on above: Order Comment: Speci men Type: BLOOD SPECIMENOrdering Facility: [facility] Address: [address] [place] [address] Performed By: #### 5 7021-8 ####[facility] [id number] [place] [address] Monocytes/100 WBC (Bld) 5.7 % Normal [facility] Comment on above: Order Comment: Speci men Type: BLOOD SPECIMENOrdering Facility: [facility] Address: [address] [place] [address] Performed By: #### 5 7021-8 ####[facility] [id number] [place] [address] Neutrophils (Bld) [#/Vol] 7.41 10*3/uL Normal 1.45-7.50 [facility] Comment on above: Order Comment: Speci men Type: BLOOD SPECIMENOrdering Facility: [facility] Address: [address] [place] [address] Performed By: #### 5 7021-8 ####[facility] [id number] [place] [address] Neutrophils/100 WBC (Bld) 73.4 % Normal [facility] Comment on above: Order Comment: Speci men Type: BLOOD SPECIMENOrdering Facility: [facility] Address: [address] [place] [address] Performed By: #### 5 7021-8 ####[facility] [id number] [place] [address] Nucleated RBC (Bld) [#/Vol] 10*3/uL Normal <0.01 [facility] Comment on above: Order Comment: Speci men Type: BLOOD SPECIMENOrdering Facility: [facility] Address: [address] [place] [address] Performed By: #### 5 7021-8 ####[facility] [id number] [place] [address] Nucleated RBC/100 WBC (Bld) [Ratio] 0.0 /100 WBC Normal [facility] Comment on above: Order Comment: Speci men Type: BLOOD SPECIMENOrdering Facility: [facility] Address: [address] [place] [address] Performed By: #### 5 7021-8 ####[facility] [id number] [place] [address] Platelet mean volume (Bld) [Entitic vol] 8.8 fL Low 9.0-12.7 [facility] Comment on above: Order Comment: Speci men Type: BLOOD SPECIMENOrdering Facility: [facility] Address: [address] [place] [address] Performed By: #### 5 7021-8 ####[facility] [id number] [place] [address] Platelets (Bld) [#/Vol] 327 10*3/uL Normal 150-400 [facility] Comment on above: Order Comment: Speci men Type: BLOOD SPECIMENOrdering Facility: [facility] Address: [address] [place] [address] Performed By: #### 5 7021-8 ####[facility] [id number] [place] [address] RBC (Bld) [#/Vol] 5.12 10*6/uL Normal 3.90-5.20 [facility] Comment on above: Order Comment: Speci men Type: BLOOD SPECIMENOrdering Facility: [facility] Address: [address] [place] [address] Performed By: #### 5 7021-8 ####[facility] [id number] [place] [address] WBC (Bld) [#/Vol] 10.08 10*3/uL Normal 3.70-11.00 [facility] Comment on above: Order Comment: Speci men Type: BLOOD SPECIMENOrdering Facility: [facility] Address: [address] [place] [address] Performed By: #### 5 7021-8 ####[facility] [id number] [place] [address] CNOVSPon 12-20-2023 CNOVS Visit (SP) Office (HEMASA) MARGARET PRIETO ([id number]) 1990 F Date Time Provider Department 12/20/23 10:00 AM SHARIF JOSEPH During your visit today, we recorded the following information about you: Temperature Pulse Respiration Blood pressure 97.7 degrees 98/minute 16/minute 154/90 Weight 171.1 kg Sharif Joseph MD 12/22/2023 6:44 AM Signed NAME: Margaret Prieto CLINIC NO.: [id number] DATE OF SERVICE: December 20, 2023 (Jonelle) [...] anticoagulation injecti (more content not included)... Normal [facility] Comprehensive metabolic 2000 panelon 12-20-2023 Albumin [Mass/Vol] 3.7 g/dL Low 3.9-4.9 [facility] Comment on above: Order Comment: Nima macias Type: BLOOD SPECIMEN [facility] Address: [address] [place] [address], [address] [id number] Performed By: #### I NFTBP #### [facility] CLIA [id number] [address] [place] [address] [place] ALP [Catalytic activity/Vol] 85 U/L Normal 34-123 [facility] Comment on above: Order Comment: Nima macias Type: BLOOD SPECIMEN [facility]ing Facility: [facility] Address: [address] [place] [address], [address], [place] [address] Performed By: #### I NFTBP #### [facility] CLIA [id number] [address] [place] [address] [place] ALT [Catalytic activity/Vol] 30 U/L Normal 7-38 [facility] Comment on above: Order Comment: Nima macias Type: BLOOD SPECIMEN Ordering Facility: [facility] Address: [address] [place] [address], [address] [id number] Performed By: #### I NFTBP #### [facility] CLIA [id number] [address] [place] [address] [place] Anion gap [Moles/Vol] 13 mmol/L Normal 9-18 [facility] Comment on above: Order Comment: Speci men Type: BLOOD SPECIMEN Ordering Facility: [facility] Address: [address] [place] [address], [address], [place] [address] Performed By: #### I NFTBP #### [facility] CLIA [id number] [address] [place] [address] [place] AST [Catalytic activity/Vol] 18 U/L Normal 13-35 [facility] Comment on above: Order Comment: Speci men Type: BLOOD SPECIMEN Ordering Facility: [facility] Address: [address] [place] [address], [address], [place] [address] Performed By: #### I NFTBP #### [facility] CLIA [id number] [address] [place] [address] [place] Bilirubin [Mass/Vol] 0.3 mg/dL Normal 0.2-1.3 [facility] Comment on above: Order Comment: Speci men Type: BLOOD SPECIMEN [facility] Address: [address] [place] [address], [address], [place] [address] Performed By: #### I NFTBP #### [facility] CLIA [id number] [address] [place] [address] [place] Calcium [Mass/Vol] 9.4 mg/dL Normal 8.5-10.2 [facility] Comment on above: Order Comment: Speci men Type: BLOOD SPECIMEN [facility] Address: [address] [place] [address], [address], [place] [address] Performed By: #### I NFTBP #### [facility] CLIA [id number] [address] [place] [address] [place] Chloride [Moles/Vol] 106 mmol/L High 97-105 [facility] Comment on above: Order Comment: Speci men Type: BLOOD SPECIMEN [facility] Address: [address] [place] [address], [address] [id number] Performed By: #### I NFTBP #### [facility] IA [id number] [address] [place] [address] [place] CO2 [Moles/Vol] 23 mmol/L Normal 22-30 [facility] Comment on above: Order Comment: Speci men Type: BLOOD SPECIMEN Ordering Facility: [facility] Address: [address] [place] [address], [address] [address] Performed By: #### I NFTBP #### [facility] IA [id number] [address] [place] [address] [place] Creatinine [Mass/Vol] 0.81 mg/dL Normal 0.58-0.96 [facility] Comment on above: Order Comment: Speci men Type: BLOOD SPECIMEN Ordering Facility: [facility] Address: [address] [place] [address], [address] [address] Performed By: #### I NFTBP #### [facility] IA [id number] [address] [place] [address] OF [place] Creatinine and Glomerular filtration rate.predicted panel (S/P/Bld) 98 mL/min/1.73m??? Normal >=60 [facility] Comment on above: Order Comment: Speci men Type: BLOOD SPECIMEN Ordering Facility: [facility] Address: [address] [place] [address], [address] [place] [address] Result Comment: Faye mated Glomerular Filtration Rate [...] GFR. Performed By: #### I NFTBP #### [facility] IA [id number] [address] [place] [address] [place] Glucose [Mass/Vol] 114 mg/dL High 74-99 [facility] Comment on above: Order Comment: Specfrancisco macias Type: BLOOD SPECIMEN Ordering Facility: [facility] Address: [address] [place] [address], [address], [place] [address] Result Comment: The [place] Diabetes Association (ADA) provides guidance for cutoff [...] Standards of Medical Care in Diabetes 2016, [place] Diabetes Association. Diabetes Care. 2016.39(Suppl 1). Performed By: #### I NFTBP #### [facility] CLIA [id number] [address] [place] [address] [place] Potassium [Moles/Vol] 4.3 mmol/L Normal 3.7-5.1 [facility] Comment on above: Order Comment: Nima macias Type: BLOOD SPECIMEN Ordering Facility: [facility] Address: [address] [place] [address], [address], [place] [address] Performed By: #### I NFTBP #### [facility] CLIA [id number] [address] [place] [address] [place] Protein [Mass/Vol] 7.9 g/dL Normal 6.3-8.0 [facility] Comment on above: Order Comment: Nima macias Type: BLOOD SPECIMEN Ordering Facility: [facility] Address: [address] [place] [address], [address], [place] [address] Performed By: #### I NFTBP #### [facility] CLIA [id number] [address] [place] [address] [place] Sodium [Moles/Vol] 142 mmol/L Normal 136-144 [facility] Comment on above: Order Comment: Speci men Type: BLOOD SPECIMEN Ordering Facility: [facility] Address: [address] [place] [address], [address], [place] [id number] Performed By: #### I NFTBP #### [facility] CLIA [id number] [address] [place] [address] [place] Urea nitrogen [Mass/Vol] 13 mg/dL Normal 7-21 [facility] Comment on above: Order Comment: Speci men Type: BLOOD SPECIMEN Ordering Facility: [facility] Address: [address] [place] [address], [address] [place], [place] [address] Performed By: #### I NFTBP #### [facility] CLIA [id number] [address] [place] [address] [place] Ferritin SerPl-mCncon 2023 Ferritin [Mass/Vol] 63.7 ng/mL Normal 14.7-205.1 [facility] Comment on above: Order Comment: Speci men Type: BLOOD SPECIMEN [facility] Address: [address] [place] [address] Performed By: #### 5 7021-8 #### [facility] CLIA [id number] [address] [place] [address] Folate SerPl-mCncon 12-20-19 24 Folate [Mass/Vol] 13.9 ng/mL Normal >4.7 [facility] Comment on above: Order Comment: Speci men Type: BLOOD SPECIMENOrdering Facility: [facility] Address: [address] [place] [address] Performed By: #### 2 132-9, 2284-8 ####[facility] [id number] [place] [address] [place] HBV surface Ag Ser Qlon 04- HBV surface Ag Ql (S) Negative Normal Negative [facility] Comment on above: Order Comment: Speci men Type: BLOOD SPECIMEN Ordering Facility: [facility] Address: [address] [place] [address], [address] [place], [place] [address] Performed By: #### I NFTBP #### [facility] CLIA [id number] [address] [place] [address] [place] HCV Ab Ser Qlon 12-20-2023 HCV Ab Ql (S) Negative Normal Negative [facility] Comment on above: Order Comment: Speci men Type: BLOOD SPECIMEN [facility] Address: [address] [place] [address] Result Comment: The result suggests no evidence of active infection with Hepatitis C virus. Should recent infection be suspected, repeat testing may be considered 4-6 weeks after this draw. Performed By: #### 5 7021-8 #### [facility] CLIA [id number] [address] [place] [address] Hcys SerPl-sCncon 12-20-2023 Homocysteine [Moles/Vol] 7.4 umol/L Normal <15.1 [facility] Comment on above: Order Comment: Husseini gilberto Type: BLOOD SPECIMEN [facility] Address: [address] [place] [address] Performed By: #### 1 3965-9 #### [facility] CLIA [id number] [address] [place] [address] [place] Iron and Iron binding capaci ty panelon 12-20-2023 Iron [Mass/Vol] 35 ug/dL Low 41-186 [facility] Comment on above: Order Comment: Nima macias Type: BLOOD SPECIMEN [facility] Address: [address] [place] [address] Performed By: #### 5 7021-8 #### [facility] CLIA [id number] [address] [place] [address] Iron binding capacity [Mass/Vol] 339 ug/dL Normal 232-386 [facility] Comment on above: Order Comment: Speci men Type: BLOOD SPECIMEN [facility] Address: [address] [place] [address] Performed By: #### 5 7021-8 #### [facility] CLIA [id number] [address] [place] [address] Iron/TIBC [Molar ratio] 10.3 % Low 15.0-57.0 [facility] Comment on above: Order Comment: Speci men Type: BLOOD SPECIMEN [facility] Address: [address] [place] [address] Performed By: #### 5 7021-8 #### [facility] CLIA [id number] [address] [place] [address] Lipid 1996 panelon 4 Cholesterol [Mass/Vol] 173 mg/dL Normal <200 [facility] Comment on above: Order Comment: Speci men Type: BLOOD SPECIMEN [facility] Address: [address] [place] [address] Result Comment: <200 mg/dL, Desirable 200-239 mg/dL, Borderline high >239 mg/dL, High Performed By: #### 5 7021-8 #### [facility] CLIA [id number] [address] [place] [address] Cholesterol in HDL [Mass/Vol] 32 mg/dL Low >39 [facility] [facility] Comment on above: Order Comment: Speci men Type: BLOOD SPECIMEN Ordering Facility: [facility] Address: [address] [place] [address] Result Comment: 40-5 9 mg/dL, Acceptable >59 mg/dL, High: Negative risk factor for coronary heart disease <40 mg/dL, Low: Positive risk factor for coronary heart disease Performed By: #### 5 7021-8 #### [facility] CLIA [id number] [address] [place] [address]146 Cholesterol in LDL [Mass/Vol] 116 mg/dL High <100 [facility] Comment on above: Order Comment: Nima gilberto Type: BLOOD SPECIMEN Ordering Facility: [facility] Address: [address] [place] [address] Result Comment: <100 mg/dL, Optimal 100-129 mg/dL, Near optimal/above optimal 130-159 mg/dL, Borderline high 160-189 mg/dL, High >189 mg/dL, Very high Secondary prevention optimal LDL Cholesterol levels are recommended to be < 70 mg/dL Performed By: #### 5 7021-8 #### [facility] CLIA [id number] [address] [place] [address] 46879 Cholesterol in LDL/Cholesterol in HDL [Mass ratio] 3.63 {ratio} High <2.54 [facility] Comment on above: Order Comment: Nima macias Type: BLOOD SPECIMEN Ordering Facility: [facility] Address: [address] [place] [address] Result Comment: Refe rence: 1. National Cholesterol Education Program ATP III Guideline At-A-Glance Quick Desk Reference: National Heart, Lung, and Blood [place]. National Institutes of Health. 2001: NIH Publication No. 01-3305. 2. An International Atherosclerosis Society position paper: global recommendations for the management of dyslipidemia: executive summary, Atherosclerosis. 2014: 232(2):410-413. Performed By: #### 5 7021-8 #### [facility] CLIA [id number] [address] [place] [address]793 Cholesterol in VLDL [Mass/Vol] 25 mg/dL Normal <30 [facility] Comment on above: Order Comment: Nima macias Type: BLOOD SPECIMEN Ordering Facility: [facility] Address: [address] [place] [address] Performed By: #### 5 7021-8 #### [facility] CLIA [id number] [address] [place] [address] 26747 Cholesterol non HDL [Mass/Vol] 141 mg/dL High <130 [facility] Comment on above: Order Comment: Nima gilberto Type: BLOOD SPECIMEN Ordering Facility: [facility] Address: [address] [place] [address] Result Comment: <130 mg/dL, Optimal 130-159 mg/dL, Near optimal/above optimal 160-189 mg/dL, Borderline high 190-219 mg/dL, High >219 mg/dL, Very high Secondary prevention optimal non HDL Cholesterol levels are recommended to be <100 mg/dL Performed By: #### 5 7021-8 #### [facility] CLIA [id number] [address] [place] [address] 47547 Cholesterol.total/Ch olesterol in HDL [Mass ratio] 5.41 {ratio} High <5.10 [facility] Comment on above: Order Comment: Speci men Type: BLOOD SPECIMEN Ordering Facility: [facility] Address: [address] [place] [address] Performed By: #### 5 7021-8 #### [facility] CLIA [id number] [address] [place] [address] FASTING TIME 12 hrs Normal [facility] Comment on above: Order Comment: Speci men Type: BLOOD SPECIMEN Ordering Facility: [facility] Address: [address] [place] [address] Performed By: #### 5 7021-8 #### [facility] CLIA [id number] [address] [place] [address]609 Triglyceride [Mass/Vol] 126 mg/dL Normal <150 [facility] Comment on above: Order Comment: Speci men Type: BLOOD SPECIMEN Ordering Facility: [facility] Address: [address] [place] [address] Result Comment: <150 mg/dL, Normal 150-199 mg/dL, Borderline high 200-499 mg/dL, High >499 mg/dL, Very high Performed By: #### 5 7021-8 #### [facility] CLIA [id number] [address] [place] [address]13 [facility] 024 Cobalamin (Vitamin B12) [Mass/Vol] 738 pg/mL Normal 232-1245 [facility] Comment on above: Order Comment: Speci men Type: BLOOD SPECIMEN Ordering Facility: [facility] Address: [address] [place] [address] Performed By: #### 5 7021-8 #### [facility] CLIA [id number] [address] [place] [address] 43190 XR CHEST 2 VWSon 12-12-2023 XR CHEST 2 VWS XR CHEST 2 VWS PA and lateral chest: HISTORY: Shortness of breath. 2 views of the chest are obtained. Lungs are clear. There is no consolidation or effusion. No pneumothorax. Osseous appear intact. Cardiac and mediastinal contours are unremarkable. IMPRESSION: No acute findings. Finalized by Tarun Rodríguez MD on 12/12/2023 2:25 PM Normal [facility] H PYLORI SCREENon 12-10-2023 H. pylori Org specific cx Ql (Roland fld) Negative Normal NEG [facility] Comment on above: Performed By: #### 4 4015-6 #### [facility] ([id number]) [address] [place] [address], [address] [place] [address] HCG ( test) Ql (U)o n 12-10-2023 Beta HCG ( test) Ql (U) Negative Normal NEG [facility] Comment on above: Performed By: #### P INR, 22828-2 #### [facility] ([id number]) [address] [facility], [place] [address] #### BMP #### [facility] ([id number]) [address] [place] [address], [address] [place] [address] Surgical Pathologyon 024 Surgical Pathology Normal [facility] Comment on above: Result Comment: [facility] [address] [place] [address] Surgical Pathology Consultation Patient Name:MARGARET PRIETO:1990 (Age: 33)Gender:FTaken:4Reported:4Physician(s):Collins Mejia D.O. ([phone])Copy To: Rec. #:[id number]: #[id number] Final Pathologic Diagnosis 1. Antrum biopsy: Fragments of gastric mucosa with no significant histopathologic abnormality 2. Distal esophagus biopsy: Fragment of gastric cardia mucosa with reactive changes suggestive of mild chronic reflux-related changes Squamous mucosa, dysplasia or intestinal metaplasia is not identified Report Electronically Signed Out nsk/12/18/2023Halina Fraga MD Interpretation performed at [facility], [address] [place] [address], License number: [id number]. Clinical History Gastroesophageal reflux, nausea, vomiting. Gross Description 1. Received in formalin labeled, MORHART, antrum are 2 pale-herrera delicate soft tissue fragments, each 0.4 cm in greatest dimension. The specimens are filtered and submitted in a single cassette. (1, ns, [id number], m4) TB 2. Received in formalin labeled, MORHART, distal esophagus is a pale-herrera delicate soft tissue bit, 0.3 cm in greatest dimension. The specimen is filtered and submitted in a single cassette. (1, ns, [id number], m4) TB tgb/12/11/2023NSK Specimen(s) Received 1: Antrum biopsy 2: Distal esophagus biopsy Fee Codes(s): 1; 44144 2; 61994 Cytologyon 12-07-2023 Cytology Normal [facility] Comment on above: Result Comment: [facility] [address] [place] [address] Gynecologic Cytology Consultation Patient Name:MARGARET PRIETO:1990 (Age: 33)Gender:FTaken:4Reported:4Physician(s):Harley Thacker C.N.P. ([phone])Copy To: Rec. #:[id number]: #[id number] Final Cytologic Interpretation ThinPrep Pap Test (Vaginal/Cervical): Satisfactory for evaluation. A transformazion zone component is not identified via imaging-assisted review, using [employer] Thin Prep Imaging System, within 22 microscopic chan of view. NEGATIVE FOR INTRAEPITHELIAL LESION OR MALIGNANCY. [facility]12/24/2023 Interpretation performed at [facility], [address] [place] [address], License number: [id number]. 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 (CHIEF UNDERWRITER) Fee Code(s): G0145 HGB A1C (GLYCO-HGB)on 2023 Glucose [Mass/Vol] 123 mg/dL Normal [facility] Comment on above: Performed By: #### T SHR #### [facility] ([id number]) [address] [place] [address], [address] [place] [address] HbA1c (Bld) [Mass fraction] 5.9 % High 4.4-5.6 [facility] Comment on above: Result Comment: NOTE ADA Guidelines Result HgbA1c Normal : less than 5.7 % Prediabetes : 5.7 % to 6.4 % Diabetes : > 6.4 % Use with caution in patients with abnormal hemoglobin variants as the half-life of red blood cells and in vivo glycation rates are affected. Performed By: #### T SHR #### [facility] ([id number]) [address] [place] [address], [address] [place] [address] HIGH RISK HPV W/GENOon 12-06 HPV 31+33+35+39+45+51+52 +56+58+59+66+68 DNA EVARISTO+probe Ql (Cvx) HPV SPECIMEN TYPE ThinPrep HPV 16 Negative (qualifier value) HPV 18 Negative (qualifier value) OTHER HIGH RISK HPV Negative (qualifier value) HPV types 31,33,35,39,45,52,56, 58,59,66 and 68 DNA were undetectable. Normal [facility] Comment on above: Performed By: #### 7 1431-1 #### [facility] ([id number]) [address] [facility] [place] [address] [facility] ([id number]) [address] [facility] [place] [address] Hemoglobin A1con 12-07-2023 Average glucose Estimated from glycated hemoglobin (Bld) [Mass/Vol] 123 mg/dL [facility] HbA1c (Bld) [Mass fraction] 5.9 % High 4.4 - 5.6 % [facility] Comment on above: NOTE ADA Guidelines Result HgbA1c Normal : less than 5.7 % Prediabetes : 5.7 % to 6.4 % Diabetes : > 6.4 % Use with caution in patients with abnormal hemoglobin variants as the half-life of red blood cells and in vivo glycation rates are affected. Interpretation and review of laboratory results Abnormal [facility] TSH WITH REFLEXon 12-07-2023 TSH 3.01 uIU/mL Normal 0.49-4.67 [facility] Comment on above: Performed By: #### T SHR #### [facility] ([id number]) [address] [facility] [place] [address] TSH with Reflexon 12-07-2023 TSH Qn 3.01 m[IU]/L [facility] FERRITIN BLDon 11-30-2023 Ferritin [Mass/Vol] 72.5 ng/mL 14.7 - 2 05.1 ng/mL [facility] FOLATE SERUMon 11-30-2023 Folate [Mass/Vol] 12.6 ng/mL >4.7 ng/mL [facility] Iron and Iron binding capaci ty panelon 11-30-2023 Iron [Mass/Vol] 34 ug/dL Low 41 - 186 ug/dL [facility] Iron binding capacity [Mass/Vol] 375 ug/dL 232 - 386 ug/dL [facility] Iron/TIBC [Molar ratio] 9.1 % Low 15.0 - 57.0 % [facility] VITAMIN B12 BLOODon 11-30-19 Cobalamin (Vitamin B12) [Mass/Vol] 740 pg/mL 232 - 1,245 pg/mL [facility] CBC W Auto Differential pane l (Bld)on 11-29-2023 Basophils (Bld) [#/Vol] 0.06 10*3/uL <0.11 k/uL [facility] Basophils/100 WBC (Bld) 0.5 % [facility] Differential cell count method Nom (Bld) Auto [facility] Eosinophils (Bld) [#/Vol] 0.30 10*3/uL <0.46 k/uL [facility] Eosinophils/100 WBC (Bld) 2.4 % [facility] Erythrocyte distribution width (RBC) [Ratio] 14.7 % 11.5 - 15.0 % [facility] Hematocrit (Bld) [Volume fraction] 41.9 % 36.0 - 46.0 % [facility] Hemoglobin (Bld) [Mass/Vol] 13.6 g/dL 11.5 - 15.5 g/dL [facility] Immature granulocytes (Bld) [#/Vol] 0.05 10*3/uL <0.10 k/uL [facility] Immature granulocytes/100 WBC (Bld) 0.4 % [facility] Lymphocytes (Bld) [#/Vol] 1.86 10*3/uL 1.00 - 4.00 k/uL [facility] Lymphocytes/100 WBC (Bld) 15.1 % [facility] MCH (RBC) [Entitic mass] 25.9 pg Low 26.0 - 34.0 pg [facility] MCHC (RBC) [Mass/Vol] 32.5 g/dL 30.5 - 36.0 g/dL [facility] MCV (RBC) [Entitic vol] 79.8 fL Low 80.0 - 100.0 fL [facility] Monocytes (Bld) [#/Vol] 0.74 10*3/uL <0.87 k/uL [facility] Monocytes/100 WBC (Bld) 6.0 % [facility] Neutrophils (Bld) [#/Vol] 9.33 10*3/uL High 1.45 - 7.50 k/uL [facility] Neutrophils/100 WBC (Bld) 75.6 % [facility] Nucleated RBC (Bld) [#/Vol] <0.01 k/uL [facility] Nucleated RBC/100 WBC (Bld) [Ratio] 0.0 /100 WBC [facility] Platelet mean volume (Bld) [Entitic vol] 8.9 fL Low 9.0 - 12.7 fL [facility] Platelets (Bld) [#/Vol] 387 10*3/uL 150 - 400 k/uL [facility] RBC (Bld) [#/Vol] 5.25 10*6/uL High 3.90 - 5.2 0 m/uL [facility] WBC (Bld) [#/Vol] 12.34 10*3/uL High 3.70 - 11 .00 k/uL [facility] Basophils (Bld) [#/Vol] 0.06 10*3/uL Normal <0.11 [facility] Comment on above: Order Comment: Speci men Type: BLOOD SPECIMEN Ordering Facility: [facility] Address: [address] [place] [address], [address] [place] [address] Performed By: #### I NFTBP #### [facility] CLIA [id number] [address] [place] [address] [place] Basophils/100 WBC (Bld) 0.5 % Normal [facility] Comment on above: Order Comment: Speci men Type: BLOOD SPECIMEN Ordering Facility: [facility] Address: [address] [place] [address], [address] [place] [address] Performed By: #### I NFTBP #### [facility] CLIA [id number] [address] [place] [address] [place] Differential cell count method Nom (Bld) Auto Normal [facility] Comment on above: Order Comment: Speci men Type: BLOOD SPECIMEN Ordering Facility: [facility] Address: [address] [place] [address], [address] [place] [address] Performed By: #### I NFTBP #### [facility] CLIA [id number] [address] [place] [address] [place] Eosinophils (Bld) [#/Vol] 0.30 10*3/uL Normal <0.46 [facility] Comment on above: Order Comment: Speci men Type: BLOOD SPECIMEN Ordering Facility: [facility] Address: [address] [place] [address], [address], [place] [address] Performed By: #### I NFTBP #### [facility] CLIA [id number] [address] [place] [address] [place] Eosinophils/100 WBC (Bld) 2.4 % Normal [facility] Comment on above: Order Comment: Speci men Type: BLOOD SPECIMEN Ordering Facility: [facility] Address: [address] [place] [address], [address], [place] [address] Performed By: #### I NFTBP #### [facility] [place] [id number] [address] [place] [address] [place] Erythrocyte distribution width (RBC) [Ratio] 14.7 % Normal 11.5-15.0 [facility] Comment on above: Order Comment: Speci men Type: BLOOD SPECIMEN Ordering Facility: [facility] Address: [address] [place] [address], [address], [place] [address] Performed By: #### I NFTBP #### [facility] [place] [id number] [address] [place] [address] [place] Hematocrit (Bld) [Volume fraction] 41.9 % Normal 36.0-46.0 [facility] Comment on above: Order Comment: Speci men Type: BLOOD SPECIMEN Ordering Facility: [facility] Address: [address] [place] [address], [address], [place] [address] Performed By: #### I NFTBP #### [facility] [place] [id number] [address] [place] [address] [place] Hemoglobin (Bld) [Mass/Vol] 13.6 g/dL Normal 11.5-15.5 [facility] Comment on above: Order Comment: Speci men Type: BLOOD SPECIMEN Ordering Facility: [facility] Address: [address] [place] [address], [address] [id number] Performed By: #### I NFTBP #### [facility] CLIA [id number] [address] [place] [address] [place] Immature granulocytes (Bld) [#/Vol] 0.05 10*3/uL Normal <0.10 [facility] Comment on above: Order Comment: Speci men Type: BLOOD SPECIMEN Ordering Facility: [facility] Address: [address] [place] [address], [address] [id number] Performed By: #### I NFTBP #### [facility] CLIA [id number] [address] [place] [address] [place] Immature granulocytes/100 WBC (Bld) 0.4 % Normal [facility] Comment on above: Order Comment: Speci men Type: BLOOD SPECIMEN Ordering Facility: [facility] Address: [address] [place] [address], [address] [place] [address] Performed By: #### I NFTBP #### [facility] CLIA [id number] [address] [place] [address] [place] Lymphocytes (Bld) [#/Vol] 1.86 10*3/uL Normal 1.00-4.00 [facility] Comment on above: Order Comment: Speci men Type: BLOOD SPECIMEN Ordering Facility: [facility] Address: [address] [place] [address], [address], [place] [address] Performed By: #### I NFTBP #### [facility] CLIA [id number] [address] [place] [address] [place] Lymphocytes/100 WBC (Bld) 15.1 % Normal [facility] Comment on above: Order Comment: Speci men Type: BLOOD SPECIMEN Ordering Facility: [facility] Address: [address] [place] [address], [address], [place] [address] Performed By: #### I NFTBP #### [facility] CLIA [id number] [address] [place] [address] [place] MCH (RBC) [Entitic mass] 25.9 pg Low 26.0-34.0 [facility] Comment on above: Order Comment: Speci men Type: BLOOD SPECIMEN Ordering Facility: [facility] Address: [address] [place] [address], [address], [place] [address] Performed By: #### I NFTBP #### [facility] CLIA [id number] [address] [place] [address] [place] MCHC (RBC) [Mass/Vol] 32.5 g/dL Normal 30.5-36.0 [facility] Comment on above: Order Comment: Speci men Type: BLOOD SPECIMEN Ordering Facility: [facility] Address: [address] [place] [address], [address], [place] [address] Performed By: #### I NFTBP #### [facility] CLIA [id number] [address] [place] [address] [place] MCV (RBC) [Entitic vol] 79.8 fL Low 80.0-100.0 [facility] Comment on above: Order Comment: Speci men Type: BLOOD SPECIMEN Ordering Facility: [facility] Address: [address] [place] [address], [address], [place] [address] Performed By: #### I NFTBP #### [facility] CLIA [id number] [address] [place] [address] [place] Monocytes (Bld) [#/Vol] 0.74 10*3/uL Normal <0.87 [facility] Comment on above: Order Comment: Speci men Type: BLOOD SPECIMEN Ordering Facility: [facility] Address: [address] [place] [address], [address], [place] [address] Performed By: #### I NFTBP #### [facility] CLIA [id number] [address] [place] [address] [place] Monocytes/100 WBC (Bld) 6.0 % Normal [facility] Comment on above: Order Comment: Speci men Type: BLOOD SPECIMEN Ordering Facility: [facility] Address: [address] [place] [address], [address], [place] [address] Performed By: #### I NFTBP #### [facility] CLIA [id number] [address] [place] [address] [place] Neutrophils (Bld) [#/Vol] 9.33 10*3/uL High 1.45-7.50 [facility] Comment on above: Order Comment: Speci men Type: BLOOD SPECIMEN Ordering Facility: [facility] Address: [address] [place] [address], [address], [place] [address] Performed By: #### I NFTBP #### [facility] CLIA [id number] [address] [place] [address] [place] Neutrophils/100 WBC (Bld) 75.6 % Normal [facility] Comment on above: Order Comment: Speci men Type: BLOOD SPECIMEN Ordering Facility: [facility] Address: [address] [place] [address], [address], [place] [address] Performed By: #### I NFTBP #### [facility] CLIA [id number] [address] [place], [place] [address] [place] Nucleated RBC (Bld) [#/Vol] 10*3/uL Normal <0.01 [facility] Comment on above: Order Comment: Speci men Type: BLOOD SPECIMEN Ordering Facility: [facility] Address: [address] [place] [address], [address], [place] [address] Performed By: #### I NFTBP #### [facility] CLIA [id number] [address] [place] [address] [place] Nucleated RBC/100 WBC (Bld) [Ratio] 0.0 /100 WBC Normal [facility] Comment on above: Order Comment: Speci men Type: BLOOD SPECIMEN Ordering Facility: [facility] Address: [address] [place] [address], [address], [place] [address] Performed By: #### I NFTBP #### [facility] CLIA [id number] [address] [place] [address] [place] Platelet mean volume (Bld) [Entitic vol] 8.9 fL Low 9.0-12.7 [facility] Comment on above: Order Comment: Speci men Type: BLOOD SPECIMEN Ordering Facility: [facility] Address: [address] [place] [address], [address], [place] [address] Performed By: #### I NFTBP #### [facility] CLIA [id number] [address] [place] [address] [place] Platelets (Bld) [#/Vol] 387 10*3/uL Normal 150-400 [facility] Comment on above: Order Comment: Speci men Type: BLOOD SPECIMEN Ordering Facility: [facility] Address: [address] [place] [address], [address], [place] [address] Performed By: #### I NFTBP #### [facility] CLIA [id number] [address] [place] [address] [place] RBC (Bld) [#/Vol] 5.25 10*6/uL High 3.90-5.20 [facility] Comment on above: Order Comment: Speci men Type: BLOOD SPECIMEN Ordering Facility: [facility] Address: [address] [place] [address], [address], [place] [address] Performed By: #### I NFTBP #### [facility] CLIA [id number] [address] [facility] [id number] [address] [place] WBC (Bld) [#/Vol] 12.34 10*3/uL High 3.70-11.00 [facility] Comment on above: Order Comment: Speci men Type: BLOOD SPECIMEN Ordering Facility: [facility] Address: [address] [place] [address], [address], [place] [id number] Performed By: #### I NFTBP #### [facility] CLIA [id number] [address] [facility] [place] [address] [place] CNOVSPon 11-29-2023 CNOVSP Visit (SP) Office ([facility]) MARGARET PRIETO ([id number]) 1990 F Date Time Provider Department 11/29/23 11:15 AM SHARIF JOSEPH During your visit today, we recorded the following information about you: Temperature Pulse Respiration Blood pressure 97.6 degrees 98/minute 16/minute 159/100 Weight Height 172.8 kg 1.651 m Sharif Joseph MD 12/05/2023 9:50 AM Signed NAME: Margaret Prieto CLINIC NO.: [id number] DATE OF SERVICE: November 29, 2023 (Jonelle) [...] including ECHO from 11/13/2022 and 11/23/2023 from [facility] which states -Echogenic density seen wihin the [...] Xray orde (more content not included)... Normal [facility] Comprehensive metabolic 2000 panelon 11-29-2023 Albumin [Mass/Vol] 3.8 g/dL Low 3.9 - 4.9 g/dL [facility] ALP [Catalytic activity/Vol] 91 U/L 34 - 123 U[facility]L [facility] ALT [Catalytic activity/Vol] 22 U/L 7 - 38 U/L [facility] Anion gap [Moles/Vol] 11 mmol/L 9 - 18 mmol/L [facility] AST [Catalytic activity/Vol] 17 U/L 13 - 35 U/L [facility] Bilirubin [Mass/Vol] 0.3 mg/dL 0.2 - 1 .3 mg/dL [facility] Calcium [Mass/Vol] 9.4 mg/dL 8.5 - 10. 2 mg/dL [facility] Chloride [Moles/Vol] 105 mmol/L 97 - 10 5 mmol/L [facility] CO2 [Moles/Vol] 24 mmol/L 22 - 30 mmol/L [facility] Creatinine [Mass/Vol] 0.83 mg/dL 0.58 - 0.96 mg/dL [facility] Estimated Glomerular Filtration Rate 95 mL/min/1.73m >=60 mL/min/1.73m [facility] Glucose [Mass/Vol] 117 mg/dL High 74 - 99 mg/dL [facility] Potassium [Moles/Vol] 4.4 mmol/L 3.7 - 5.1 mmol/L [facility] Protein [Mass/Vol] 8.1 g/dL High 6.3 - 8.0 g/dL [facility] Sodium [Moles/Vol] 140 mmol/L 136 - 144 mmol/L [facility] Urea nitrogen [Mass/Vol] 10 mg/dL 7 - 21 mg/dL [facility] Albumin [Mass/Vol] 3.8 g/dL Low 3.9-4.9 [facility] Comment on above: Order Comment: Speci men Type: BLOOD SPECIMEN Ordering Facility: [facility] Address: [address] [place] [address] Performed By: #### 5 7021-8 #### [facility] CLIA [id number] [address] [place] [address] ALP [Catalytic activity/Vol] 91 U/L Normal 34-123 [facility] Comment on above: Order Comment: Speci men Type: BLOOD SPECIMEN Ordering Facility: [facility] Address: [address] [place] [address] Performed By: #### 5 7021-8 #### [facility] CLIA [id number] [address] [place] [address] ALT [Catalytic activity/Vol] 22 U/L Normal 7-38 [facility] Comment on above: Order Comment: Speci men Type: BLOOD SPECIMEN Ordering Facility: [facility] Address: [address] [place] [address] Performed By: #### 5 7021-8 #### [facility] CLIA [id number] [address] [place] [address] Anion gap [Moles/Vol] 11 mmol/L Normal 9-18 [facility] Comment on above: Order Comment: Speci men Type: BLOOD SPECIMEN Ordering Facility: [facility] Address: [address] [place] [id number] Performed By: #### 5 7021-8 #### [facility] CLIA [id number] [address] [place] [address] AST [Catalytic activity/Vol] 17 U/L Normal 13-35 [facility] Comment on above: Order Comment: Speci men Type: BLOOD SPECIMEN Ordering Facility: [facility] Address: [address] [place] [address] Performed By: #### 5 7021-8 #### [facility] CLIA [id number] [address] [place] [address] Bilirubin [Mass/Vol] 0.3 mg/dL Normal 0.2-1.3 [facility] Comment on above: Order Comment: Speci men Type: BLOOD SPECIMEN Ordering Facility: [facility] Address: [address] [place] [address] Performed By: #### 5 7021-8 #### [facility] CLIA [id number] [address] [place] [address] Calcium [Mass/Vol] 9.4 mg/dL Normal 8.5-10.2 [facility] Comment on above: Order Comment: Speci men Type: BLOOD SPECIMEN Ordering Facility: [facility] Address: [address] [place] [address] Performed By: #### 5 7021-8 #### [facility] CLIA [id number] [address] [place] [address] Chloride [Moles/Vol] 105 mmol/L Normal 97-105 [facility] Comment on above: Order Comment: Speci men Type: BLOOD SPECIMEN Ordering Facility: [facility] Address: [address] [place], [place] [address] Performed By: #### 5 7021-8 #### [facility] CLIA [id number] [address] [place] [address] CO2 [Moles/Vol] 24 mmol/L Normal 22-30 [facility] Comment on above: Order Comment: Speci men Type: BLOOD SPECIMEN Ordering Facility: [facility] Address: [address] [place] [address] Performed By: #### 5 7021-8 #### [facility] CLIA [id number] [address] [place] [address] Creatinine [Mass/Vol] 0.83 mg/dL Normal 0.58-0.96 [facility] Comment on above: Order Comment: Speci men Type: BLOOD SPECIMEN Ordering Facility: [facility] Address: [address] [place] [address] Performed By: #### 5 7021-8 #### [facility] CLIA [id number] [address] [place] [address] Creatinine and Glomerular filtration rate.predicted panel (S/P/Bld) 95 mL/min/1.73m??? Normal >=60 [facility] Comment on above: Order Comment: Speci men Type: BLOOD SPECIMEN Ordering Facility: [facility] Address: [address] [place] [address] Result Comment: Faye mated Glomerular Filtration Rate [...] GFR. Performed By: #### 5 7021-8 #### [facility] CLIA [id number] [address] [place] [address] Glucose [Mass/Vol] 117 mg/dL High 74-99 [facility] Comment on above: Order Comment: Nima macias Type: BLOOD SPECIMEN Ordering Facility: [facility] Address: [address] [place] [address] Result Comment: The [place] Diabetes [employer] (ADA) provides guidance for cutoff [...] Standards of Medical Care in Diabetes 2016, [place] Diabetes Association. Diabetes Care. 2016.39(Suppl 1). Performed By: #### 5 7021-8 #### [facility] CLIA [id number] [address] [place] [address] Potassium [Moles/Vol] 4.4 mmol/L Normal 3.7-5.1 [facility] Comment on above: Order Comment: Nima macias Type: BLOOD SPECIMEN Ordering Facility: [facility] Address: [address] [place] [address] Performed By: #### 5 7021-8 #### [facility] CLIA [id number] [address] [place] [address] Protein [Mass/Vol] 8.1 g/dL High 6.3-8.0 [facility] Comment on above: Order Comment: Nima macias Type: BLOOD SPECIMEN Ordering Facility: [facility] Address: [address] [place] [address] Performed By: #### 5 7021-8 #### [facility] CLIA [id number] [address] [place] [address] Sodium [Moles/Vol] 140 mmol/L Normal 136-144 [facility] Comment on above: Order Comment: Speci men Type: BLOOD SPECIMEN Ordering Facility: [facility] Address: [address] [place] [address] Performed By: #### 5 7021-8 #### [facility] CLIA [id number] [address] [place] [address] Urea nitrogen [Mass/Vol] 10 mg/dL Normal 7-21 [facility] Comment on above: Order Comment: Speci men Type: BLOOD SPECIMEN Ordering Facility: [facility] Address: [address] [place] [address] Performed By: #### 5 7021-8 #### [facility] CLIA [id number] [address] [place] [address] Ferritin SerPl-mCncon 2023 Ferritin [Mass/Vol] 72.5 ng/mL Normal 14.7-205.1 [facility] Comment on above: Order Comment: Speci men Type: BLOOD SPECIMEN Ordering Facility: [facility] Address: [address] [place] [address] Performed By: #### 5 7021-8 #### [facility] CLIA [id number] [address] [place] [address] 10671 Folate SerPl-mCncon 11-29-19 24 Folate [Mass/Vol] 12.6 ng/mL Normal >4.7 [facility] Comment on above: Order Comment: Speci men Type: BLOOD SPECIMEN Ordering Facility: [facility] Address: [address] [place] [address] Performed By: #### 5 7021-8 #### [facility] CLIA [id number] [address] [place] [address] Iron and Iron binding capaci ty panelon 11-29-2023 Iron [Mass/Vol] 34 ug/dL Low 41-186 [facility] Comment on above: Order Comment: Speci men Type: BLOOD SPECIMEN Ordering Facility: [facility] Address: [address] [place] [address] Performed By: #### 5 7021-8 #### [facility] CLIA [id number] [address] [place] [address] Iron binding capacity [Mass/Vol] 375 ug/dL Normal 232-386 [facility] Comment on above: Order Comment: Speci men Type: BLOOD SPECIMEN Ordering Facility: [facility] Address: [address] [place] [address] Performed By: #### 5 7021-8 #### [facility] CLIA [id number] [address] [place] [address] Iron/TIBC [Molar ratio] 9.1 % Low 15.0-57.0 [facility] Comment on above: Order Comment: Speci men Type: BLOOD SPECIMEN Ordering Facility: [facility] Address: [address] [place] [address] Performed By: #### 5 7021-8 #### [facility] CLIA [id number] [address] [place] [address] 61537 Vit B12 [facility] 024 Cobalamin (Vitamin B12) [Mass/Vol] 740 pg/mL Normal 232-1245 [facility] Comment on above: Order Comment: Speci men Type: BLOOD SPECIMEN Ordering Facility: [facility] Address: [address] [place], [place] [address] Performed By: #### 5 7021-8 #### [facility] CLIA [id number] [address] [place] [address] CTA CHESTon 11-18-2023 CT CTA CHEST [...] Perry MD on 11/18/2023 10:30 AM Normal [facility] XR CHEST 2 VWSon 11-15-2023 XR [...] Rodríguez MD on 11/15/2023 9:26 AM Normal [facility] APTTon 11-09-2023 aPTT Coag (PPP) [Time] 30 s [facility] Comment on above: NEW REFERENCE RANGE BASIC METABOLIC PANLon 11-08 Anion gap [Moles/Vol] 9 mmol/L Normal 5-15 [facility] Comment on above: Performed By: #### P INR, 26507-9 #### [facility] ([id number]) [address] [place] [address] #### BMP #### [facility] ([id number]) [address] [place] [address] Calcium [Mass/Vol] 8.8 mg/dL Normal 8.5-10.5 [facility] Comment on above: Performed By: #### P INR, 39745-6 #### [facility] ([id number]) [address] [place] [address]50[address] #### BMP #### [facility] ([id number]) [address] [place] [address] Chloride [Moles/Vol] 103 mmol/L Normal 98-109 [facility] Comment on above: Performed By: #### P INR, 88541-9 #### [facility] ([id number]) [address] [place] [address] #### BMP #### [facility] ([id number]) [address] [place] [address] CO2 [Moles/Vol] 27 mmol/L Normal 22-32 [facility] Comment on above: Performed By: #### P INR, 04957-1 #### [facility] ([id number]) [address] [place] [address] #### BMP #### [facility] ([id number]) [address] [place] [address] Creatinine [Mass/Vol] 0.70 mg/dL Normal 0.40-1.00 [facility] Comment on above: Result Comment: METH OD TRACEABLE TO IDMS STANDARD Performed By: #### P INR, 59221-2 #### [facility] ([id number]) [address] [place] [address] #### BMP #### [facility] ([id number]) [address] [place] [address] eGFR (CKD-EPI) NON-RACE DEPENDENT >90 Normal >59 [facility] Comment on above: Result Comment: Reported eGFR is based on the CKD-EPI 2020 equation that does not use a race coefficient. Performed By: #### P INR, 37876-4 #### [facility] ([id number]) [address] [place] [address]392 #### BMP #### [facility] ([id number]) [address] [place] [address] Glucose [Mass/Vol] 116 mg/dL High 65-99 [facility] Comment on above: Performed By: #### P INR, 61884-5 #### [facility] ([id number]) [address] [place] [address] #### BMP #### [facility] ([id number]) [address] [place] [address] Potassium [Moles/Vol] 3.9 mmol/L Normal 3.5-5.0 [facility] Comment on above: Performed By: #### P INR, 19541-3 #### [facility] ([id number]) [address] [place] [address] #### BMP #### [facility] ([id number]) [address] [place] [address] Sodium [Moles/Vol] 139 mmol/L Normal 134-146 [facility] Comment on above: Performed By: #### P INR, 77177-5 #### [facility] ([id number]) [address] [place] [address]75 #### BMP #### [facility] ([id number]) [address] [place] [address] Urea nitrogen [Mass/Vol] 13 mg/dL Normal 5-23 [facility] Comment on above: Performed By: #### P INR, 74725-5 #### [facility] ([id number]) [address] [place] [address]365 #### BMP #### [facility] ([id number]) [address] [place] [address] Basic Metabolic Panelon 03-0 Anion gap [Moles/Vol] 9 mmol/L 5 - 15 mmol/L [facility] Calcium [Mass/Vol] 8.8 mg/dL 8.5 - 10. 5 mg/dL [facility] Chloride [Moles/Vol] 103 mmol/L 98 - 10 9 mmol/L [facility] CO2 [Moles/Vol] 27 mmol/L 22 - 32 mmol/L [facility] Creatinine [Mass/Vol] 0.70 mg/dL 0.40 - 1.00 mg/dL [facility] Comment on above: METHOD TRACEABLE TO IDKY STANDARD eGFR (CKD-EPI)non-race dependent - PINF [facility] Comment on above: Reported eGFR is based on the CKD-EPI 2020 equation that does not use a race coefficient. Glucose [Mass/Vol] 116 mg/dL High 65 - 99 mg/dL [facility] Interpretation and review of laboratory results Abnormal [facility] Potassium [Moles/Vol] 3.9 mmol/L 3.5 - 5.0 mmol/L [facility] Sodium [Moles/Vol] 139 mmol/L 134 - 146 mmol/L [facility] Urea nitrogen [Mass/Vol] 13 mg/dL 5 - 23 mg/dL [facility] ECG 12 leadon 11-09-2023 TRACEMASTERVUE [facility] No Panel Informationon 11-08 [facility] PROTIME AND INRon 11-09-2023 INR Coag (PPP) [Relative time] 1.0 {INR} Normal 0.8-1.1 [facility] Comment on above: Performed By: #### P INR, 63274-9 #### [facility] ([id number]) [address] [place] [address], [place] [address] #### BMP #### [facility] ([id number]) [address] [facility], [address] [place] [address] PT Coag (PPP) [Time] 12.2 s Normal 9.8-13.2 [facility] Comment on above: Result Comment: NEW REFERENCE RANGE Performed By: #### P INR, 90403-2 #### [facility] ([id number]) [address] [place] [address] #### BMP #### [facility] ([id number]) [facility] [facility] [place] [address] Protime & INRon 11-09-2023 INR Coag (PPP) [Relative time] 1.0 {INR} [facility] PT Coag (PPP) [Time] 12.2 s [facility] Comment on above: NEW REFERENCE RANGE aPTT Coag (PPP) [Time]on aPTT Coag (Bld) [Time] 30 s Normal 26-37 [facility] Comment on above: Result Comment: NEW REFERENCE RANGE Performed By: #### P INR, 24655-3 #### [facility] ([id number]) [address] [place] [address]29 #### BMP #### [facility] ([id number]) [address] [place] [address], [address] [place] [address] C. difficile toxin genes EVARISTO +probe Ql (Stl)on 11-08-2023 [facility] Gastrointestinal pathogens D NA and RNA panel EVARISTO+non-probe (Stl)on 11-08-2023 Adenovirus 40+41 DNA EVARISTO+non-probe Ql (Stl) Not detected Not Detected^Not Detected [facility] Astrovirus subtypes 1-8 RNA EVARISTO+non-probe Ql (Stl) Not detected Not Detected^Not Detected [facility] C. cayetanensis DNA EVARISTO+non-probe Ql (Stl) Not detected Not Detected^Not Detected [facility] C. coli+jejuni+upsalien sis DNA EVARISTO+non-probe Ql (Stl) Not detected Not Detected^Not Detected [facility] Cryptosporidium sp DNA EVARISTO+non-probe Ql (Stl) Not detected Not Detected^Not Detected [facility] E. coli enteroaggregative Jeevan plasmid aggR+aatA genes EVARISTO+non-probe Ql (Stl) Not detected Not Detected^Not Detected [facility] E. coli enteropathogenic eae gene EVARISTO+non-probe Ql (Stl) Not detected Not Detected^Not Detected [facility] E. coli enterotoxigenic ltA+st1a+st1b genes EVARISTO+non-probe Ql (Stl) Not detected Not Detected^Not Detected [facility] E. coli stx1+stx2 genes EVARISTO+non-probe Ql (Stl) Not detected Not Detected^Not Detected [facility] E. histolytica DNA EVARISTO+non-probe Ql (Stl) Not detected Not Detected^Not Detected [facility] G. lamblia DNA EVARISTO+non-probe Ql (Stl) Not detected Not Detected^Not Detected [facility] Norovirus genogroup I+II RNA EVARISTO+non-probe Ql (Stl) Not detected Not Detected^Not Detected [facility] P. shigelloides DNA EVARISTO+non-probe Ql (Stl) Not detected Not Detected^Not Detected [facility] Rotavirus A RNA EVARISTO+non-probe Ql (Stl) Not detected Not Detected^Not Detected [facility] S. enterica+bongori DNA EVARISTO+non-probe Ql (Stl) Not detected Not Detected^Not Detected [facility] Sapovirus genogroups I+II+IV+V RNA EVARISTO+non-probe Ql (Stl) Not detected Not Detected^Not Detected [facility] Shigella species+EIEC invasion plasmid antigen H ipaH gene EVARISTO+non-probe Ql (Stl) Not detected Not Detected^Not Detected [facility] Specimen source Nom (Body fld) STOOL [facility] V. cholerae DNA EVARISTO+non-probe Ql (Stl) Not detected Not Detected^Not Detected [facility] V. cholerae+parahaemoly ticus+vulnificus DNA EVARISTO+non-probe Ql (Stl) Not detected Not Detected^Not Detected [facility] Y. enterocolitica DNA EVARISTO+non-probe Ql (Stl) Not detected Not Detected^Not Detected [facility] - Microbiology an d Antimicrobial susceptibilityon 11-08-2023 C. difficile toxin genes EVARISTO+probe Ql (Stl) Negative Presumptive Negative^Pres umptive Negative [facility] C DIFFICILE BY PCRon 024 C. difficile toxin genes EVARISTO+probe Ql (Stl) TOXIGENIC C DIFF Negative (qualifier value) 027 NAP1 Negative (qualifier value) Normal PRNEG [facility] Comment on above: Performed By: #### 5 4067-4, 53374-5, 02863-3 #### [facility] ([id number]) [address] [facility], [address] [place] [address] Calprotectin (Stl) [Mass/Mas s]on 11-07-2023 CALPROTECTIN STOOL See Below Normal [facility] Comment on above: Result Comment: NOTE TEST RESULT FLAG UNIT REF.RANGE ----- CALPROTECTIN, FECAL QUANTITATIVE 11.9 ug/g <50 CALPROTECTIN, FECAL INTERP Normal Normal On January 23, 2023, [facility] [employer] implemented a new fecal calprotectin method, the [employer] Calprotectin assay. For assistance with interpretation of results in patients undergoing serial monitoring, contact Client Services at [phone] or [phone] to discuss options, preferably within 7 days of issuing this report. Interpretation: <50.0 ug/g: Normal 50.0 ug/g - 120.0 ug/g: Borderline elevated. Re-evaluation in 4-6 weeks is recommended if clinically indicated. >120.0 ug/g: Elevated Test Performed By: [facility] [employer] [address] [place] [address] [employer]: John Kaiser III, M.D. CLIA #[id number] Performed By: #### 5 4067-4, 83263-5, 20332-6 #### [facility] ([id number]) [address] [place] [address], [address] [place] [address] GI PANELon 11-07-2023 Gastrointestinal pathogens DNA and [...] SAPOVIRUS Not detected (qualifier value) Normal NDET [facility] Comment on above: Performed By: #### 5 4067-4, 56763-5, 01799-0 #### [facility] ([id number]) [address] [place] [address], [address] [place] [address] POCT Glucose Fingerstickon 0 10-08-2023 Glucose [Mass/Vol] 119 mg/dL Abnormal 65 - 99 mg/dL [facility] Interpretation and review of laboratory results Abnormal [facility] CBC AUTO DIFFon 11-22-2022 BASO # 0.0 103/ul Normal 0.0-0.1 [facility] Comment on above: Performed By: #### H H #### [facility] [address] [place] [address] Dr. Ron Sims Basophils/100 WBC (Bld) 0.3 % Normal 0.2-2.0 [facility] Comment on above: Performed By: #### H H #### [facility] [address] [place] [address] Dr. Ron Sims EO # 0.1 103/ul Normal 0.0-0.7 [facility] Comment on above: Performed By: #### H H #### [facility] [address] [place] [address] Dr. Ron Sims Eosinophils/100 WBC (Bld) 0.8 % Critically low 0.9-7.0 [facility] Comment on above: Performed By: #### H H #### [facility] [address] [place] [address] Dr. Ron Sims Erythrocyte distribution width (RBC) [Ratio] 13.5 % Normal 11.0-15.0 [facility] Comment on above: Performed By: #### H H #### [facility] [address] [address] [address] Ron Sims Hematocrit (Bld) [Volume fraction] 42.3 % Normal 36.0-48.0 [facility] Comment on above: Performed By: #### H H #### [facility] [address] [place] [address] Dr. Ron Sims Hemoglobin (Bld) [Mass/Vol] 13.9 g/dL Normal 12.0-16.0 [facility] Comment on above: Performed By: #### H H #### [facility] [address] [place] [address] Dr. Ron Sims IG # 0.08 10e3/ul Critically high 0.00-0.[address] [facility] Comment on above: Performed By: #### H H #### [facility] [address] [place] [address] Dr. Ron Sims IG % 0.9 % Critically high 0.0-0.5 [facility] Comment on above: Performed By: #### H H #### [facility] [address] [place] [address] Dr. Ron Sims LYMPH # 0.8 103/ul Critically low 1.2-3.8 [facility] Comment on above: Performed By: #### H H #### [facility] [address] [place] [address] Dr. Ron Sims Lymphocytes/100 WBC (Bld) 9.4 % Critically low 20.5-60.0 [facility] Comment on above: Performed By: #### H H #### [facility] [address] [place] [address] Dr. Ron Sims MANUAL DIFF REQ NO Normal [facility] Comment on above: Performed By: #### H H #### [facility] [address] [place] [address] Dr. Ron Sims MCH (RBC) [Entitic mass] 26.8 pg Normal 26.7-34.0 [facility] Comment on above: Performed By: #### H H #### [facility] [address] [place] [address] Dr. Ron Sims MCHC (RBC) [Mass/Vol] 32.9 g/dL Normal 29.9-35.2 [facility] Comment on above: Performed By: #### H H #### [facility] [address] [place] [address] Dr. Ron Sims MCV (RBC) [Entitic vol] 81.7 fL Normal 81.0-99.0 [facility] Comment on above: Performed By: #### H H #### [facility] [address] [place] [address] Dr. Ron Sims MONO # 0.6 103/ul Normal 0.3-0.8 [facility] Comment on above: Performed By: #### H H #### [facility] [address] [place] [address] Dr. Ron Sims Monocytes/100 WBC (Bld) 6.3 % Normal 1.7-12.0 [facility] Comment on above: Performed By: #### H H #### [facility] [address] [place] [address] Dr. oRn Sims NEUT # 7.2 103/ul Critically high 1.4-6.5 [facility] Comment on above: Performed By: #### H H #### [facility] [address] [place] [address] Dr. Ron Sims Neutrophils/100 WBC (Bld) 82.3 % Critically high 43.0-75.0 [facility] Comment on above: Performed By: #### H H #### [facility] [address] [place] [address] Dr. Ron Sims Platelet mean volume (Bld) [Entitic vol] 8.6 fL Critically low 9.5-13.5 [facility] Comment on above: Performed By: #### H H #### [facility] [address] [address] [address] Ron Sims PLT 323 103/ul Normal 150-450 [facility] Comment on above: Performed By: #### H H #### [facility] [address] [address] [address] Ron Sims RBC 5.18 106/ul Normal 4.20-5.40 [facility] Comment on above: Performed By: #### H H #### [facility] [address] [address] [address] Ron Sims WBC 8.8 103/ul Normal 4.0-11.0 [facility] Comment on above: Performed By: #### H H #### [facility] [address] [address] [address] Ron Sims CULTURE BLOODon 11-22-2022 Microscopic examination of blood, culture Culture Observations: NO GROWTH AT 5 DAYS. Normal [facility] Comment on above: Performed By: #### H IV12 #### [facility] [address] [place] [address] Dr. Ron Sims ECHO LIMITED STUDYon 023 ECHO LIMITED STUDY Patient: MARGARET PRIETO Exam Date: 11/22/2022 : 1990 Gender:F Ordering : DR NATHAN MAYFIELD D.O. Admission #: [id number] Family : Order #: [id number] CLICK HERE TO VIEW EXAM ECHOCARDIOGRAM REPORT [...] M.D. on 11/22/2022 at 14:54 Normal [facility] LACTATE/LACTIC ACIDon 2022 Lactate [Moles/Vol] 1.5 mmol/L Normal 0.4-2.0 [facility] Comment on above: Performed By: #### L ACT #### [facility] [address] [place] [address] Dr. Ron Sims Lactate [Moles/Vol] 2.6 mmol/L Critically high 0.4-2.0 [facility] Comment on above: Performed By: #### L ACT #### [facility] [address] [address] [address] Ron Sims PROF CHEM 8 (BAS METB)on Anion gap [Moles/Vol] 16.8 mmol/L Normal [facility] Comment on above: Performed By: #### H H #### [facility] [address] [address] [address] Ron Sims Calcium [Mass/Vol] 8.9 mg/dL Normal 8.5-10.1 [facility] Comment on above: Performed By: #### H H #### [facility] [address] [address] [address] Ron Sims Chloride [Moles/Vol] 94 mmol/L Critically low 98-107 [facility] Comment on above: Performed By: #### H H #### [facility] [address] [place] [address] Dr. Ron Sims CO2 [Moles/Vol] 25.3 mmol/L Normal 21.0-32.0 [facility] Comment on above: Performed By: #### H H #### [facility] [address] [address] [address] Ron Sims Creatinine [Mass/Vol] 0.88 mg/dL Normal 0.55-1.02 [facility] Comment on above: Performed By: #### H H #### [facility] [address] [address] [address] Ron Sims EGFR-AF DJIBOUTIAN >60 Normal >=60 [facility] Comment on above: Performed By: #### H H #### [facility] [address] [address] [address] Ron Sims EGFR-NON AF DJIBOUTIAN >60 Normal >=60 [facility] Comment on above: Performed By: #### H H #### [facility] [address] [address] [address] Ron Sims Glucose [Mass/Vol] 112 mg/dL Critically high 74-106 [facility] Comment on above: Performed By: #### H H #### [facility] [address] [address] [address] Ron Sims Potassium [Moles/Vol] 3.1 mmol/L Critically low 3.5-5.1 [facility] Comment on above: Performed By: #### H H #### [facility] [address] [address] [address] Ron Sims Sodium [Moles/Vol] 133 mmol/L Critically low 136-145 [facility] Comment on above: Performed By: #### H H #### [facility] [address] [address] [address] Ron Sims Urea nitrogen [Mass/Vol] 12.0 mg/dL Normal 7.0-18.0 [facility] Comment on above: Performed By: #### H H #### [facility] [address] [place] [address] Dr. Ron Sims Urea nitrogen/Creatinine [Mass ratio] 13.6 mg/mg Normal [facility] Comment on above: Performed By: #### H H #### [facility] [address] [place] [address] Dr. Ron Sims PROTIMEon 11-22-2022 INR Coag (PPP) [Relative time] 2.20 {INR} Normal [facility] Comment on above: Performed By: #### P T, PTT #### [facility] [address] [place] [address] Dr. Ron Sims INR GUIDELINES SEE BELOW Normal [facility] Comment on above: Result Comment: MICHELINE RED INR: 2.0 - 3.0 CONDITIONS NOT LISTED BELOW 2.5 - 3.5 FOR PROSTHETIC HEART VALVE REPLACEMENT 2.5 - 3.5 RECURRENT THROMBOSIS Performed By: #### P T, PTT #### [facility] [address] [place] [address] Dr. oRn Sims PT Coag (PPP) [Time] 22.3 s Critically high 9.0-11.6 [facility] Comment on above: Performed By: #### P T, PTT #### [facility] [address] [place] [address] Dr. Ron Sims PTTon 11-22-2022 aPTT Coag (Bld) [Time] 48.2 s Critically high 22.3-36.2 [facility] Comment on above: Performed By: #### P T, PTT #### [facility] [address] [address] [address] Ron Sims XR CHEST 1 Von [...] by: SANIA TIDWELL Date: 2022-11-22 12:16 Normal [facility] POLINA EIA W/REFLEX 9 BIOMARKER Son 10-24-2022 POLINA Direct Negative Normal Negative [facility] Comment on above: Performed By: #### H IV12 #### [facility] [address] [address] [address] Ron Sims HEPATITIS C AB CASCADE TO QU ANT PCR GENOon 10-24-2022 HCV AB Non-Reactive Normal Non Reactive [facility] Comment on above: Performed By: #### H EPCASC #### [facility] [address] [address] [address] Ron Sims Interpretation: Comment Normal [facility] Comment on above: Result Comment: Not infected with HCV unless early or acute infection is suspected (which may be delayed in an immunocompromised individual), or other evidence exists to indicate HCV infection. Performed By: #### H EPCASC #### [facility] [address] [place] [address] Dr. Ron Sims HIV 1 AND 2 WITH REFLEXon HIV Screen 4th Generation wRfx Non-Reactive Normal Non Reactive [facility] Comment on above: Result Comment: HIV Negative HIV-1/HIV-2 antibodies and HIV-1 p24 antigen were NOT detected. There is no laboratory evidence of HIV infection. Performed By: #### H IV12 #### [facility] [address] [place] [address] Dr. Ron Sims CPKon 10-23-2022 CK [Catalytic activity/Vol] 36 U/L Normal 26-192 [facility] Comment on above: Performed By: #### H H #### [facility] [address] [place] [address] Dr. Ron Sims GLYCOHEMOGLOBIN A1Con 2022 ADA RECOMMENDATION SEE BELOW Normal [facility] Comment on above: Result Comment: ADA RECOMMENDED LIMIT 4.0 - 6.0 ADA THERAPEUTIC TARGET < 7.0 ACTION SUGGESTED > 7.0 Performed By: #### A 1C #### [facility] [address] [place] [address] Dr. Ron Sims Glucose [Mass/Vol] 111 mg/dL Normal [facility] Comment on above: Performed By: #### A 1C #### [facility] [address] [place] [address] Dr. Ron Sims HbA1c (Bld) [Mass fraction] 5.5 % Normal 4.5-6.2 [facility] Comment on above: Performed By: #### A 1C #### [facility] [address] [place] [address] Dr. Ron Sims HEMOGRAM AND PLATELon 2022 Hematocrit (Bld) [Volume fraction] 38.4 % Normal 36.0-48.0 [facility] Comment on above: Performed By: #### H H #### [facility] [address] [place] [address] Dr. Ron Sims Hemoglobin (Bld) [Mass/Vol] 12.6 g/dL Normal 12.0-16.0 [facility] Comment on above: Performed By: #### H H #### [facility] [address] [place] [address] Dr. Ron Sims MCH (RBC) [Entitic mass] 27.0 pg Normal 26.7-34.0 [facility] Comment on above: Performed By: #### H H #### [facility] [address] [address] [address] Ron Sims MCHC (RBC) [Mass/Vol] 32.8 g/dL Normal 29.9-35.2 [facility] Comment on above: Performed By: #### H H #### [facility] [address] [address] [address] Ron Sims MCV (RBC) [Entitic vol] 82.2 fL Normal 81.0-99.0 [facility] Comment on above: Performed By: #### H H #### [facility] [address] [address] [address] Ron Sims PLT 337 103/ul Normal 150-450 [facility] Comment on above: Performed By: #### H H #### [facility] [address] [place] [address] Dr. Ron Sims RBC 4.67 106/ul Normal 4.20-5.40 [facility] Comment on above: Performed By: #### H H #### [facility] [address] [place] [address] Dr. Ron Sims WBC 9.7 103/ul Normal 4.0-11.0 [facility] Comment on above: Performed By: #### H H #### [facility] [address] [place] [address] Dr. Ron Sims MYOGLOBINon 10-23-2022 NOEMI 51 ng/mL Normal 9-82 [facility] Comment on above: Performed By: #### H H #### [facility] [address] [place] [address] Dr. Ron Sims PROF 14(COMP METB)on 023 Albumin [Mass/Vol] 3.1 g/dL Critically low 3.4-5.0 [facility] Comment on above: Performed By: #### P T, PTT #### [facility] [address] [place] [address] Dr. Ron Sims Albumin/Globulin [Mass ratio] 0.7 {ratio} Normal [facility] Comment on above: Performed By: #### P T, PTT #### [facility] [address] [address] [address] Ron Sims ALP [Catalytic activity/Vol] 79 U/L Normal 46-116 [facility] Comment on above: Performed By: #### P T, PTT #### [facility] [address] [address] [address] Ron Sims ALT [Catalytic activity/Vol] 28 U/L Normal 14-59 [facility] Comment on above: Performed By: #### P T, PTT #### [facility] [address] [address] [address] Ron Sims Anion gap [Moles/Vol] 12.2 mmol/L Normal [facility] Comment on above: Performed By: #### P T, PTT #### [facility] [address] [place] [address] Dr. Ron Sims AST [Catalytic activity/Vol] 17 U/L Normal 15-37 [facility] Comment on above: Performed By: #### P T, PTT #### [facility] [address] [address] [address] Ron Sims Bilirubin [Mass/Vol] 0.4 mg/dL Normal 0.2-1.0 [facility] Comment on above: Performed By: #### P T, PTT #### [facility] [address] [place] [address] Dr. Ron Sims Calcium [Mass/Vol] 9.0 mg/dL Normal 8.5-10.1 [facility] Comment on above: Performed By: #### P T, PTT #### [facility] [address] [address] [address] Ron Sims Chloride [Moles/Vol] 101 mmol/L Normal 98-107 [facility] Comment on above: Performed By: #### P T, PTT #### [facility] [address] [address] [address] Ron Sims CO2 [Moles/Vol] 28.5 mmol/L Normal 21.0-32.0 [facility] Comment on above: Performed By: #### P T, PTT #### [facility] [address] [place] [address] Dr. Ron Sims Creatinine [Mass/Vol] 0.88 mg/dL Normal 0.55-1.02 [facility] Comment on above: Performed By: #### P T, PTT #### [facility] [address] [place] [address] Dr. Ron Sims EGFR-AF DJIBOUTIAN >60 Normal >=60 [facility] Comment on above: Performed By: #### P T, PTT #### [facility] [address] [address] [address] Ron Sims EGFR-NON AF DJIBOUTIAN >60 Normal >=60 [facility] Comment on above: Performed By: #### P T, PTT #### [facility] [address] [place] [address] Dr. Ron Sims Globulin (S) [Mass/Vol] 4.6 g/dL Normal [facility] Comment on above: Performed By: #### P T, PTT #### [facility] [address] [place] [address] Dr. Ron Sims Glucose [Mass/Vol] 96 mg/dL Normal 74-106 [facility] Comment on above: Performed By: #### P T, PTT #### [facility] [address] [place] [address] Dr. Ron Sims Potassium [Moles/Vol] 3.7 mmol/L Normal 3.5-5.1 [facility] Comment on above: Performed By: #### P T, PTT #### [facility] [address] [place] [address] Dr. Ron Sims Protein [Mass/Vol] 7.7 g/dL Normal 6.4-8.2 [facility] Comment on above: Performed By: #### P T, PTT #### [facility] [address] [place] [address] Dr. Ron Sims Sodium [Moles/Vol] 138 mmol/L Normal 136-145 [facility] Comment on above: Performed By: #### P T, PTT #### [facility] [address] [place] [address] Dr. Ron Sims Urea nitrogen [Mass/Vol] 12.0 mg/dL Normal 7.0-18.0 [facility] Comment on above: Performed By: #### P T, PTT #### [facility] [address] [place] [address] Dr. Ron Sims Urea nitrogen/Creatinine [Mass ratio] 13.6 mg/mg Normal [facility] Comment on above: Performed By: #### P T, PTT #### [facility] [address] [place] [address] Dr. Ron Sims TSHon 10-23-2022 TSH 2.891 uIU/mL Normal 0.358-3.740 [facility] Comment on above: Performed By: #### P T, PTT #### [facility] [address] [place] [address] Dr. Ron Sims VITAMIN B12on 10-23-2022 Cobalamin (Vitamin B12) [Mass/Vol] 618.0 pg/mL Normal 193.0-986.0 [facility] Comment on above: Performed By: #### H H #### [facility] [address] [place] [address] Dr. Ron Sims VITAMIN D 25 OHon 10-23-2022 VIT D 25-OH 18.0 ng/mL Normal [facility] Comment on above: Performed By: #### H H #### [facility] [address] [place] [address] Dr. Ron Sims VIT D RANGES SEE BELOW Normal [facility] Comment on above: Result Comment: <20 ng/mL Vit D deficient 20 - <30 ng/mL Vit D insufficient 30 - 100 ng/mL Vit D sufficient >100 ng/mL Potential Toxicity Performed By: #### H H #### [facility] [address] [place] [address] Dr. Ron Sims CBC AUTO DIFFon 09-26-2022 BASO # 0.0 103/ul Normal 0.0-0.1 [facility] Comment on above: Performed By: #### H H #### [facility] [address] [address] [address] Ron Sims Basophils/100 WBC (Bld) 0.5 % Normal 0.2-2.0 [facility] Comment on above: Performed By: #### H H #### [facility] [address] [address] [address] Ron Sims EO # 0.1 103/ul Normal 0.0-0.7 [facility] Comment on above: Performed By: #### H H #### [facility] [address] [address] [address] Ron Sims Eosinophils/100 WBC (Bld) 1.5 % Normal 0.9-7.0 [facility] Comment on above: Performed By: #### H H #### [facility] [address] [place] [address] Dr. Ron Sims Erythrocyte distribution width (RBC) [Ratio] 13.3 % Normal 11.0-15.0 [facility] Comment on above: Performed By: #### H H #### [facility] [address] [place] [address] Dr. Ron Sims Hematocrit (Bld) [Volume fraction] 41.3 % Normal 36.0-48.0 [facility] Comment on above: Performed By: #### H H #### [facility] [address] [place] [address] Dr. Ron Sims Hemoglobin (Bld) [Mass/Vol] 13.6 g/dL Normal 12.0-16.0 [facility] Comment on above: Performed By: #### H H #### [facility] [address] [place] [address] Dr. Ron Sims IG # 0.03 10e3/ul Normal 0.00-0.03 [facility] Comment on above: Performed By: #### H H #### [facility] [address] [place] [address] Dr. Ron Sims IG % 0.3 % Normal 0.0-0.5 [facility] Comment on above: Performed By: #### H H #### [facility] [address] [address] [address] Ron Sims LYMPH # 1.5 103/ul Normal 1.2-3.8 [facility] Comment on above: Performed By: #### H H #### [facility] [address] [place] [address] Dr. Ron Sims Lymphocytes/100 WBC (Bld) 16.9 % Critically low 20.5-60.0 [facility] Comment on above: Performed By: #### H H #### [facility] [address] [place] [address] Dr. Ron Sims MANUAL DIFF REQ NO Normal [facility] Comment on above: Performed By: #### H H #### [facility] [address] [place] [address] Dr. Ron Sims MCH (RBC) [Entitic mass] 27.7 pg Normal 26.7-34.0 [facility] Comment on above: Performed By: #### H H #### [facility] [address] [place] [address] Dr. Ron Sims MCHC (RBC) [Mass/Vol] 32.9 g/dL Normal 29.9-35.2 [facility] Comment on above: Performed By: #### H H #### [facility] [address] [place] [address] Dr. Ron Sims MCV (RBC) [Entitic vol] 84.1 fL Normal 81.0-99.0 [facility] Comment on above: Performed By: #### H H #### [facility] [address] [place] [address] Dr. Ron Sims MONO # 0.5 103/ul Normal 0.3-0.8 [facility] Comment on above: Performed By: #### H H #### [facility] [address] [place] [address] Dr. Ron Sims Monocytes/100 WBC (Bld) 5.4 % Normal 1.7-12.0 [facility] Comment on above: Performed By: #### H H #### [facility] [address] [place], [place] [id number] Dr. Ron Sims NEUT # 6.5 103/ul Normal 1.4-6.5 [facility] Comment on above: Performed By: #### H H #### [facility] [address] [place] [address] Dr. Ron Sims Neutrophils/100 WBC (Bld) 75.4 % Critically high 43.0-75.0 [facility] Comment on above: Performed By: #### H H #### [facility] [address] [place] [address] Dr. Ron Sims Platelet mean volume (Bld) [Entitic vol] 9.0 fL Critically low 9.5-13.5 [facility] Comment on above: Performed By: #### H H #### [facility] [address] [place] [address] Dr. Ron Sims PLT 261 103/ul Normal 150-450 [facility] Comment on above: Performed By: #### H H #### [facility] [address] [place] [address] Dr. Ron Sims RBC 4.91 106/ul Normal 4.20-5.40 [facility] Comment on above: Performed By: #### H H #### [facility] [address] [place] [address] Dr. Ron Sims WBC 8.7 103/ul Normal 4.0-11.0 [facility] Comment on above: Performed By: #### H H #### [facility] [address] [place] [address] Dr. Ron Sims CRPon 09-26-2022 CRP 0.4 mg/dL Normal <=1.0 [facility] Comment on above: Performed By: #### P T, PTT #### [facility] [address] [place] [address] HEAD WO CONon [...] by: DEREK MIRELES Date: 2022-09-26 20:09 Normal [facility] CTA HEAD WO W CONon [...] by: DEREK MIRELES Date: 2022-09-26 21:26 Normal [facility] PROF CHEM 8 (BAS METB)on Anion gap [Moles/Vol] 11.2 mmol/L Normal [facility] Comment on above: Performed By: #### P T, PTT #### [facility] [address] [place] [address] Dr. Ron Sims Calcium [Mass/Vol] 9.1 mg/dL Normal 8.5-10.1 [facility] Comment on above: Performed By: #### P T, PTT #### [facility] [address] [place] [address] Dr. Ron Sims Chloride [Moles/Vol] 101 mmol/L Normal 98-107 [facility] Comment on above: Performed By: #### P T, PTT #### [facility] [address] [address] [address] Ron Sims CO2 [Moles/Vol] 28.0 mmol/L Normal 21.0-32.0 [facility] Comment on above: Performed By: #### P T, PTT #### [facility] [address] [place] [address] Dr. Ron Sims Creatinine [Mass/Vol] 0.85 mg/dL Normal 0.55-1.02 [facility] Comment on above: Performed By: #### P T, PTT #### [facility] [address] [address] [address] Ron Sims EGFR-AF DJIBOUTIAN >60 Normal >=60 [facility] Comment on above: Performed By: #### P T, PTT #### [facility] [address] [place] [address] Dr. Ron Sims EGFR-NON AF DJIBOUTIAN >60 Normal >=60 [facility] Comment on above: Performed By: #### P T, PTT #### [facility] [address] [place] [address] Dr. Ron Sims Glucose [Mass/Vol] 106 mg/dL Normal 74-106 [facility] Comment on above: Performed By: #### P T, PTT #### [facility] [address] [address] [address] Ron Sims Potassium [Moles/Vol] 4.2 mmol/L Normal 3.5-5.1 [facility] Comment on above: Performed By: #### P T, PTT #### [facility] [address] [place] [address] Dr. Ron Sims Sodium [Moles/Vol] 136 mmol/L Normal 136-145 [facility] Comment on above: Performed By: #### P T, PTT #### [facility] [address] [address] [address] Ron iSms Urea nitrogen [Mass/Vol] 15.0 mg/dL Normal 7.0-18.0 [facility] Comment on above: Performed By: #### P T, PTT #### [facility] [address] [place] [address] Dr. Ron Sims Urea nitrogen/Creatinine [Mass ratio] 17.6 mg/mg Normal [facility] Comment on above: Performed By: #### P T, PTT #### [facility] [address] [place] [address] Dr. [facility] Sim[facility] mm/hr Critically high <=20 [facility] Comment on above: Performed By: #### S EDR #### [facility] [address] [place] [address] Dr. Ron Sims PREG HCG QUALon 09-05-2022 , QUAL Negative Normal NEGATIVE [facility] Comment on above: Performed By: #### P REG #### [facility] [address] [place] [address] Dr. Ron Sims ABO and Rh group post transf usion reaction Nom (Bld)Ordered By: John Carlson on 04-11-2022 Microscopic observation Gram stain Nom (Unsp spec) [facility] HCG ( test) IA.rapi d Ql (U)Ordered By: Katya Vasques on 04-10-2022 HCG ( test) Ql (U) Negative [facility] COVID-19 Positive/NegativeOr dered By: John Carlson on 04-06-2022 SARS-CoV-2 (COVID-19) N gene EVARISTO+probe Ql (Resp) Negative Negative [facility] Comment on above: Testing for SARS-CoV -2 by RT-PCR This test was developed and its performance characteristics determined by [employer] ([employer]) and validated at the [facility]. This test has not been [...] on 03-30-2022 Albumin [Mass/Vol] 3.1 g/dL 3.2-5.5 [facility] Basophils Auto (Bld) [#/Vol] Ordered By: Dominique Garrison on 03-30-2022 Basophils (Bld) [#/Vol] 0.1 10*3/uL 0.0-0.2 [facility] Basophils/100 WBC Auto (Bld) Ordered By: Dominique Garrison on 03-30-2022 Basophils/100 WBC (Bld) 0.6 % . [facility] Blood hemoglobin measurement (mass/volume)Ordered By: Dominique Garrison on 03-30-2022 Hemoglobin (Bld) [Mass/Vol] 13.3 g/dL 11.8-15.4 [facility] Blood leukocytes automated c ount (number/volume)Ordered By: Dominique Garrison on 03-30-2022 WBC (Bld) [#/Vol] 10.7 10*3/uL 4.5-11.0 [facility] Creatinine and Glomerular fi ltration rate.predicted panel (S/P/Bld)Ordered By: Dominique Garrison on 03-30-2022 Creatinine [Mass/Vol] 0.74 mg/dL 0.44-1.03 [facility] Eosinophils Auto (Bld) [#/Vo l]Ordered By: Dominique Garrison on 03-30-2022 Eosinophils (Bld) [#/Vol] 0.2 10*3/uL 0.0-0.45 [facility] Eosinophils/100 WBC Auto (Bl d)Ordered By: Dominique Garrison on 03-30-2022 Eosinophils/100 WBC (Bld) 1.5 % . [facility] Erythrocyte distribution wid th Auto (RBC) [Ratio]Ordered By: Dominique Garrison on 03-30-2022 Erythrocyte distribution width (RBC) [Ratio] 14.2 % 11.9-15.3 [facility] Estimated glomerular filtrat ion rate (GFR) non- AmericanOrdered By: Dominique Garrison on 03-30-2022 GFR/1.73 sq M.predicted among non-blacks MDRD (S/P/Bld) [Vol rate/Area] > 60 mL/Min [facility] Globulin Calc (S) [Mass/Vol] Ordered By: Dominique Garrison on 03-30-2022 Globulin (S) [Mass/Vol] 4.1 g/dL [facility] Hematocrit Auto (Bld) [Volum e fraction]Ordered By: Dominique Garrison on 03-30-2022 Hematocrit (Bld) [Volume fraction] 39.6 % 34.0-46.4 [facility] Hepatitis C virus RNA [Units /volume] (viral load) in Serum or Plasma by EVARISTO with probOrdered By: Dominique Garrison on 03-30-2022 HCV RNA EVARISTO+probe Qn N/A [facility] Hepatitis C virus RNA [log u nits/volume] (viral load) in Serum or Plasma by EVARISTO withOrdered By: Dominique Garrison on 03-30-2022 HCV RNA EVARISTO+probe [Log units/Vol] N/A [facility] Laboratory - Hematology and Cell countsOrdered By: Dominique Garrison on 03-30-2022 Nucleated RBC/100 WBC (Bld) [Ratio] 0.1 % 0-0.5 [facility] Lymphocytes Auto (Bld) [#/Vo l]Ordered By: Dominique Garrison on 03-30-2022 Lymphocytes (Bld) [#/Vol] 1.7 10*3/uL 1.00-4.8 [facility] Lymphocytes/100 WBC Auto (Bl d)Ordered By: Dominique Garrison on 03-30-2022 Lymphocytes/100 WBC (Bld) 16.0 % . [facility] MCH Auto (RBC) [Entitic mass ]Ordered By: Dominique Garrison on 03-30-2022 MCH (RBC) [Entitic mass] 26.8 pg 24.7-34.3 [facility] MCHC Auto (RBC) [Mass/Vol]Or dered By: Dominique Garrison on 03-30-2022 MCHC (RBC) [Mass/Vol] 33.7 g/dL 32.0-35.0 [facility] MCV Auto (RBC) [Entitic vol] Ordered By: Dominique Garrison on 03-30-2022 MCV (RBC) [Entitic vol] 79.6 fL 80-100 [facility] Monocytes Auto (Bld) [#/Vol] Ordered By: Dominique Garrison on 03-30-2022 Monocytes (Bld) [#/Vol] 0.7 10*3/uL 0.0-0.8 [facility] Monocytes/100 WBC Auto (Bld) Ordered By: Dominique Garrison on 03-30-2022 Monocytes/100 WBC (Bld) 6.4 % . [facility] Neutrophils Auto (Bld) [#/Vo l]Ordered By: Dominique Garrison on 03-30-2022 Neutrophils (Bld) [#/Vol] 8.0 10*3/uL 1.8-7.7 [facility] Neutrophils/100 WBC Auto (Bl d)Ordered By: Dominique Garrison on 03-30-2022 Neutrophils/100 WBC (Bld) 75.5 % . [facility] No Panel InformationOrdered By: Dominique Garrison on 03-30-2022 Estimated GFR () > 60 mL/Min [facility] Comment on above: GFR estimated refere nce range: According to KDOQI guidelines, <60 ml/min/1.73m2 is sufficient to diagnose a patient with chronic kidney disease. Hepatitis B Core Total Antibody Negative Negative [facility] Comment on above: Performed at: [address] [id number] [employer]: Tarun Almanzar PhD, Phone: [phone] Hepatitis C Interpretation See comment . [facility] Comment on above: Negative Not infected with HCV, unless recent infection is suspected or other evidence exists to indicate HCV infection. Hepatitis C RNA Quantitative N/A [facility] Creatinine Clearance (Chem N/A [facility] TB Test (T-Spot) . [facility] Comment on above: See report. Scanned copy available in EMR. Platelet mean volume Auto (B ld) [Entitic vol]Ordered By: Dominique Garrison on 03-30-2022 Platelet mean volume (Bld) [Entitic vol] 7.3 fL 6.3-10.7 [facility] Platelets Auto (Bld) [#/Vol] Ordered By: Dominique Garrison on 03-30-2022 Platelets (Bld) [#/Vol] 376 10*3/uL 150-450 [facility] Protein [Mass/volume] in Ser um or PlasmaOrdered By: Dominique Garrison on 03-30-2022 Protein [Mass/Vol] 7.2 g/dL 6.1-7.9 [facility] RBC Auto (Bld) [#/Vol]Ordere d By: Dominique Garrison on 03-30-2022 RBC (Bld) [#/Vol] 4.97 10*6/uL 3.60-5.00 [facility] Serum hepatitis B virus surf mary antibody detectionOrdered By: Dominique Garrison on 03-30-2022 HBV surface Ab Ql (S) Reactive . [facility] Comment on above: Non Reactive: Incons istent with immunity, less than 10 mIU/mL Reactive: Consistent with immunity, greater than 9.9 mIU/mL Serum or plasma alanine block otransferase measurement without P-5'-P (enzymatic activiOrdered By: Dominique Garrison on 03-30-2022 ALT No additional P-5'-P [Catalytic activity/Vol] 24 U/L 10-60 [facility] Serum or plasma albumin/glob ulin mass ratioOrdered By: Dominique Garrison on 03-30-2022 Albumin/Globulin [Mass ratio] 0.8 {ratio} [facility] Serum or plasma alkaline james sphatase measurement (enzymatic activity/volume)Ordered By: Dominique Garrison on 03-30-2022 ALP [Catalytic activity/Vol] 66 U/L 32-92 [facility] Serum or plasma aspartate am inotransferase measurement (enzymatic activity/volume)Ordered By: Dominique Garrison on 03-30-2022 AST [Catalytic activity/Vol] 20 U/L 10-42 [facility] Serum or plasma calcium seema urement (mass/volume)Ordered By: Dominique Garrison on 03-30-2022 Calcium [Mass/Vol] 8.5 mg/dL 8.2-10.2 [facility] Serum or plasma chloride laura surement (moles/volume)Ordered By: Dominique Garrison on 03-30-2022 Chloride [Moles/Vol] 105 mmol/L 95-[address] [facility] Serum or plasma glucose seema urement (mass/volume)Ordered By: Dominique Garrison on 03-30-2022 Glucose [Mass/Vol] 97 mg/dL 70-100 [facility] Comment on above: ADA recommended refe rence [...] IA [Rel units/Vol] 0.2 s/co ratio 0.0-0.9 [facility] Serum or plasma potassium me asurement (moles/volume)Ordered By: Dominique Garrison on 03-30-2022 Potassium [Moles/Vol] 3.8 mmol/L 3.5-5.1 [facility] Serum or plasma sodium measu rement (moles/volume)Ordered By: Dominique Garrison on 03-30-2022 Sodium [Moles/Vol] 136 mmol/L 136-146 [facility] Serum or plasma total biliru bin measurement (mass/volume)Ordered By: Dominique Garrison on 03-30-2022 Bilirubin [Mass/Vol] 0.5 mg/dL 0.3-1.[address] [facility] Serum or plasma total carbon dioxide measurement (moles/volume)Ordered By: Dominique Garrison on 03-30-2022 CO2 [Moles/Vol] 23.0 mmol/L 22.0-30.0 [facility] Serum or plasma urea nitroge n measurement (mass/volume)Ordered By: Dominique Garrison on 03-30-2022 Urea nitrogen [Mass/Vol] 9 mg/dL 9-23 [facility] Bacteria identified Anaer cx Nom (Unsp spec)Ordered By: John Carlson on 03-29-2022 Anaerobic Culture Prevotella bivia F [facility] [place] Bacteria identified Aer cx N om (Unsp spec)Ordered By: John Carlson on 03-15-2022 Aerobic Culture Strep. agalactiae Gr p B [facility] ABO and Rh group post transf usion reaction Nom (Bld)Ordered By: John Carlson on 03-14-2022 Microscopic observation Gram stain Nom (Unsp spec) [facility] Creatinine and Glomerular fi ltration rate.predicted panel (S/P/Bld)Ordered By: KATYA SIMENTAL on 03-13-2022 Creatinine [Mass/Vol] 0.77 mg/dL 0.44-1.03 [facility] Estimated glomerular filtrat ion rate (GFR) non- AmericanOrdered By: KATYA SIMENTAL on 03-13-2022 GFR/1.73 sq M.predicted among non-blacks MDRD (S/P/Bld) [Vol rate/Area] > 60 mL/Min [facility] HCG ( test) IA.rapi d Ql (U)Ordered By: KATYA SIMENTAL on 03-13-2022 HCG ( test) Ql (U) Negative [facility] No Panel InformationOrdered By: KATYA SIMENTAL on 03-13-2022 Estimated GFR () > 60 mL/Min [facility] Comment on above: GFR estimated refere nce range: According to KDOQI guidelines, <60 ml/min/1.73m2 is sufficient to diagnose a patient with chronic kidney disease. Pharmacy Creatinine Clearance (Chem 159.38 [facility] Serum or plasma calcium seema urement (mass/volume)Ordered By: KATYA SIMENTAL on 03-13-2022 Calcium [Mass/Vol] 8.9 mg/dL 8.2-10.2 [facility] Serum or plasma chloride laura surement (moles/volume)Ordered By: KATYA SIMENTAL on 03-13-2022 Chloride [Moles/Vol] 98 mmol/L 95-[address] [facility] Serum or plasma glucose seema urement (mass/volume)Ordered By: KATYA SIMENTAL on 03-13-2022 Glucose [Mass/Vol] 95 mg/dL 70-100 [facility] Comment on above: ADA recommended refe rence range Random Glucose Reference Range is dependent on time and content of last meal. Glucose of more than 200 mg/dL in a nonstressed, ambulatory subject supports the diagnosis of Diabetes Mellitus. Serum or plasma potassium me asurement (moles/volume)Ordered By: KATYA SIMENTAL on 03-13-2022 Potassium [Moles/Vol] 3.8 mmol/L 3.5-5.1 [facility] Serum or plasma sodium measu rement (moles/volume)Ordered By: KATYA SIMENTAL on 03-13-2022 Sodium [Moles/Vol] 133 mmol/L 136-146 [facility] Serum or plasma total carbon dioxide measurement (moles/volume)Ordered By: KATYA SIMENTAL on 03-13-2022 CO2 [Moles/Vol] 24.4 mmol/L 22.0-30.0 [facility] Serum or plasma urea nitroge n measurement (mass/volume)Ordered By: KATYA SIMENTAL on 03-13-2022 Urea nitrogen [Mass/Vol] 7 mg/dL 9-23 [facility] COVID-19 Positive/NegativeOr dered By: John Carlson on 03-09-2022 SARS-CoV-2 (COVID-19) N gene EVARISTO+probe Ql (Resp) Negative Negative [facility] Comment on above: Testing for SARS-CoV -2 by RT-PCR This test was developed and its performance characteristics determined by [employer]) and validated at the [facility]. This test has not been [...] on 02-28-2022 Anaerobic Culture Prevotella bivia F [facility] [place] Bacteria identified Aer cx N om (Unsp spec)Ordered By: John Carlson on 02-15-2022 Aerobic Culture Escherichia coli [facility] Aerobic Culture Strep. agalactiae Gr p B [facility] ABO and Rh group post transf usion reaction Nom (Bld)Ordered By: John Carlson on 02-14-2022 Microscopic observation Gram stain Nom (Unsp spec) [facility] HCG ( test) IA.rapi d Ql (U)Ordered By: Dillon Miranda on 02-13-2022 HCG ( test) Ql (U) Negative [facility] COVID-19 Positive/NegativeOr dered By: John Carlson on 02-09-2022 SARS-CoV-2 (COVID-19) N gene EVARISTO+probe Ql (Resp) Negative Negative [facility] Comment on above: Testing for SARS-CoV -2 by RT-PCR This test was developed and its performance characteristics determined by [employer] ([employer]) and validated at the [facility]. This test has not been [...] Physician Referralon 022 Physician Referral [id number] .[id number]:127 Normal [facility] [place] Physician Referralon 021 Physician Referral [id number] .[id number]:127 Normal [facility] [place] Vital Signs Date Time Vital Sign Value Performing Clinician Facility 04-18-2024 11:17-0400 Body mass index (BMI) [Ratio] 60.83 kg/m2 Sharif Joseph MD Work Phone: [facility] 04-18-2024 11:17-0400 Body temperature 97 [degF] Sharif Joseph MD Work Phone: [facility] 04-18-2024 11:17-0400 Body weight 165.8 kg Sharif Joseph MD Work Phone: [facility] 04-18-2024 11:17-0400 Diastolic blood pressure 76 mm[Hg] Sharif Joseph MD Work Phone: [facility] 04-18-2024 11:17-0400 Heart rate 75 /min Sharif Joseph MD Work Phone: [facility] 04-18-2024 11:17-0400 Respiratory rate 18 /min Sharif Joseph MD Work Phone: [facility] 04-18-2024 11:17-0400 SaO2% (BldA) [Mass fraction] 98 % Sharif Joseph MD Work Phone: [facility] 04-18-2024 11:17-0400 Systolic blood pressure 155 mm[Hg] Sharif Joseph MD Work Phone: [facility] 12-20-2023 10:16-0400 Body temperature 97.7 [degF] Sharif Joseph MD Work Phone: [facility] 12-20-2023 10:16-0400 Body weight 171.1 kg Sharif Joseph MD Work Phone: [facility] 12-20-2023 10:16-0400 Diastolic blood pressure 90 mm[Hg] Sharif Joseph MD Work Phone: [facility] 12-20-2023 10:16-0400 Heart rate 98 /min Sharif Joseph MD Work Phone: [facility] 12-20-2023 10:16-0400 Respiratory rate 16 /min Sharif Joseph MD Work Phone: [facility] 12-20-2023 10:16-0400 SaO2% (BldA) [Mass fraction] 97 % Sharif Joseph MD Work Phone: [facility] 12-20-2023 10:16-0400 Systolic blood pressure 154 mm[Hg] Sharif Joseph MD Work Phone: [facility] 12-07-2023 11:05-0400 Body height 165.1 cm Harley Thacker APRN-FURNITURE DECALS INSPECTOR Work Phone: [facility] 12-07-2023 11:05-0400 Body mass index (BMI) [Ratio] 64.23 kg/m2 Harley Thacker APRN-FURNITURE DECALS INSPECTOR Work Phone: [facility] 12-07-2023 11:05-0400 Body temperature 98.01 [degF] Harley Thacker APRN-FURNITURE DECALS INSPECTOR Work Phone: [facility] 12-07-2023 11:05-0400 Body weight 175.09 kg Harley Thacker APRN-FURNITURE DECALS INSPECTOR Work Phone: [facility] 12-07-2023 11:05-0400 Diastolic blood pressure 76 mm[Hg] Harley Thacker APRN-FURNITURE DECALS INSPECTOR Work Phone: [facility] 12-07-2023 11:05-0400 Heart rate 97 /min Harley Thacker COPY SUPERVISOR-FURNITURE DECALS INSPECTOR Work Phone: [facility] 12-07-2023 11:05-0400 SaO2% (BldA) [Mass fraction] 94 % Harley Thacker COPY SUPERVISOR-FURNITURE DECALS INSPECTOR Work Phone: [facility] 12-07-2023 11:05-0400 Systolic blood pressure 136 mm[Hg] Harley Thacker COPY SUPERVISOR-FURNITURE DECALS INSPECTOR Work Phone: [facility] 11-29-2023 10:42-0400 Body height 165.1 cm Sharif Joseph MD Work Phone: [facility] 11-29-2023 10:42-0400 Body temperature 97.59 [degF] Sharif Joseph MD Work Phone: [facility] 11-29-2023 10:42-0400 Body weight 172.8 kg Sharif Joseph MD Work Phone: [facility] 11-29-2023 10:42-0400 Diastolic blood pressure 100 mm[Hg] Sharif Joseph MD Work Phone: [facility] 11-29-2023 10:42-0400 Heart rate 98 /min Sharif Joseph MD Work Phone: [facility] 11-29-2023 10:42-0400 Respiratory rate 16 /min Sharif Joseph MD Work Phone: [facility] 11-29-2023 10:42-0400 SaO2% (BldA) [Mass fraction] 98 % Sharif Joseph MD Work Phone: [facility] 11-29-2023 10:42-0400 Systolic blood pressure 159 mm[Hg] Sharif Joseph MD Work Phone: [facility] 11-28-2023 09:58-0400 Body height 165.1 cm Pam Mittal MD Work Phone: [facility] 11-28-2023 09:58-0400 Body mass index (BMI) [Ratio] 63.73 kg/m2 Pam Mittal MD Work Phone: [facility] 11-28-2023 09:58-0400 Body weight 173.73 kg Pam Mittal MD Work Phone: [facility] 11-28-2023 09:58-0400 Diastolic blood pressure 96 mm[Hg] Pam Mittal MD Work Phone: [facility] 11-28-2023 09:58-0400 Heart rate 95 /min Pam Mittal MD Work Phone: [facility] 11-28-2023 09:58-0400 SaO2% (BldA) [Mass fraction] 98 % Pam Mittal MD Work Phone: [facility] 11-28-2023 09:58-0400 Systolic blood pressure 140 mm[Hg] Pam Mittal MD Work Phone: [facility] 11-14-2023 15:25-0400 Body height 165.1 cm Harley Thacker COPY SUPERVISOR-FURNITURE DECALS INSPECTOR Work Phone: [facility] 11-14-2023 15:25-0400 Body mass index (BMI) [Ratio] 63.5 kg/m2 Harley Thacker COPY SUPERVISOR-FURNITURE DECALS INSPECTOR Work Phone: [facility] 11-14-2023 15:25-0400 Body temperature 98.6 [degF] Harley Thacker COPY SUPERVISOR-FURNITURE DECALS INSPECTOR Work Phone: [facility] 11-14-2023 15:25-0400 Body weight 173.09 kg Harley Thacker COPY SUPERVISOR-FURNITURE DECALS INSPECTOR Work Phone: [facility] 11-14-2023 15:25-0400 Diastolic blood pressure 80 mm[Hg] Harley Thacker COPY SUPERVISOR-FURNITURE DECALS INSPECTOR Work Phone: [facility] 11-14-2023 15:25-0400 Heart rate 98 /min Harley Thacker COPY SUPERVISOR-FURNITURE DECALS INSPECTOR Work Phone: [facility] 11-14-2023 15:25-0400 SaO2% (BldA) [Mass fraction] 97 % Harley Thacker COPY SUPERVISOR-FURNITURE DECALS INSPECTOR Work Phone: [facility] 11-14-2023 15:25-0400 Systolic blood pressure 132 mm[Hg] Harley Thacker COPY SUPERVISOR-FURNITURE DECALS INSPECTOR Work Phone: [facility] 11-07-2023 10:01-0500 Body height 165.1 cm Corine Catherine COPY SUPERVISOR-FURNITURE DECALS INSPECTOR Work Phone: [facility] 11-07-2023 10:01-0500 Body mass index (BMI) [Ratio] 63.77 kg/m2 Corine Catherine COPY SUPERVISOR-FURNITURE DECALS INSPECTOR Work Phone: [facility] 11-07-2023 10:01-0500 Body weight 173.82 kg Corine Catherine COPY SUPERVISOR-FURNITURE DECALS INSPECTOR Work Phone: [facility] 11-07-2023 10:01-0500 Diastolic blood pressure 89 mm[Hg] Corine Catherine COPY SUPERVISOR-FURNITURE DECALS INSPECTOR Work Phone: [facility] 11-07-2023 10:01-0500 Heart rate 95 /min Corine Catherine COPY SUPERVISOR-FURNITURE DECALS INSPECTOR Work Phone: [facility] 11-07-2023 10:01-0500 Systolic blood pressure 175 mm[Hg] Corine Catherine COPY SUPERVISOR-FURNITURE DECALS INSPECTOR Work Phone: [facility] 10-19-2023 10:15-0500 Body mass index (BMI) [Ratio] 63.5 kg/m2 Yashira Mi COPY SUPERVISOR-FURNITURE DECALS INSPECTOR Work Phone: [facility] 10-19-2023 10:15-0500 Body weight 173.09 kg Yashira Mi COPY SUPERVISOR-FURNITURE DECALS INSPECTOR Work Phone: [facility] 10-19-2023 10:15-0500 Diastolic blood pressure 96 mm[Hg] Yashira Mi COPY SUPERVISOR-FURNITURE DECALS INSPECTOR Work Phone: [facility] 10-19-2023 10:15-0500 Heart rate 82 /min Yashira Mi COPY SUPERVISOR-FURNITURE DECALS INSPECTOR Work Phone: [facility] 10-19-2023 10:15-0500 Systolic blood pressure 142 mm[Hg] Yashira Im COPY SUPERVISOR-FURNITURE DECALS INSPECTOR Work Phone: [facility] 10-08-2023 09:12-0500 Body height 165.1 cm Harley Thacker COPY SUPERVISOR-FURNITURE DECALS INSPECTOR Work Phone: [facility] 10-08-2023 09:12-0500 Body mass index (BMI) [Ratio] 63.24 kg/m2 Harley Thacker COPY SUPERVISOR-FURNITURE DECALS INSPECTOR Work Phone: [facility] 10-08-2023 09:12-0500 Body temperature 98.01 [degF] Harley Thacker COPY SUPERVISOR-FURNITURE DECALS INSPECTOR Work Phone: [facility] 10-08-2023 09:12-0500 Body weight 172.37 kg Harley Thacker COPY SUPERVISOR-FURNITURE DECALS INSPECTOR Work Phone: [facility] 10-08-2023 09:12-0500 Diastolic blood pressure 90 mm[Hg] Harley Thacker COPY SUPERVISOR-FURNITURE DECALS INSPECTOR Work Phone: [facility] 10-08-2023 09:12-0500 Heart rate 86 /min Harley Thacker COPY SUPERVISOR-FURNITURE DECALS INSPECTOR Work Phone: [facility] 10-08-2023 09:12-0500 SaO2% (BldA) [Mass fraction] 97 % Harley Thacker COPY SUPERVISOR-FURNITURE DECALS INSPECTOR Work Phone: [facility] 10-08-2023 09:12-0500 Systolic blood pressure 132 mm[Hg] Harley Thacker COPY SUPERVISOR-FURNITURE DECALS INSPECTOR Work Phone: [facility] 05-05-2022 09:25-0400 Body temperature 97.9 [degF] MD John Carlson Work Phone: [facility] 05-05-2022 09:25-0400 Diastolic blood pressure 93 mm[Hg] MD John Carlson Work Phone: [facility] 05-05-2022 09:25-0400 Heart rate 78 /min MD John Carlson Work Phone: [facility] 05-05-2022 09:25-0400 Respiratory rate 18 /min MD John Carlson Work Phone: [facility] 05-05-2022 09:25-0400 SaO2% (BldA) [Mass fraction] 99 % MD John Carlson Work Phone: [facility] 05-05-2022 09:25-0400 Systolic blood pressure 156 mm[Hg] MD John Carlson Work Phone: [facility] 05-05-2022 09:24-0400 Body height 165.1 cm MD John Carlson Work Phone: [facility] 05-05-2022 09:24-0400 Body weight 155.9 kg MD John Carlson Work Phone: [facility] 04-21-2022 09:29-0400 Body temperature 98.2 [degF] MD John Carlson Work Phone: [facility] 04-21-2022 09:29-0400 Diastolic blood pressure 59 mm[Hg] MD John Carlson Work Phone: [facility] 04-21-2022 09:29-0400 Heart rate 74 /min MD John Carlson Work Phone: [facility] 04-21-2022 09:29-0400 Systolic blood pressure 141 mm[Hg] MD John Carlson Work Phone: [facility] 04-21-2022 08:29-0400 Body height 165.1 cm MD John Carlson Work Phone: [facility] 04-21-2022 08:29-0400 Body weight 155 kg MD John Carlson Work Phone: [facility] 04-10-2022 14:46-0400 Body height 165.1 cm MD John Carlson Work Phone: [facility] 04-10-2022 14:46-0400 Body mass index (BMI) [Ratio] 55.4 kg/m2 MD John Carlson Work Phone: [facility] 04-10-2022 14:46-0400 Body weight 151.04 kg MD John Carlson Work Phone: [facility] 04-10-2022 14:25-0400 Diastolic blood pressure 69 mm[Hg] MD John Carlson Work Phone: [facility] 04-10-2022 14:25-0400 Heart rate 80 /min MD John Carlson Work Phone: [facility] 04-10-2022 14:25-0400 Respiratory rate 16 /min MD John Carlson Work Phone: [facility] 04-10-2022 14:25-0400 SaO2% (BldA) [Mass fraction] 100 % MD John Carlson Work Phone: [facility] 04-10-2022 14:25-0400 Systolic blood pressure 119 mm[Hg] MD John Carlson Work Phone: [facility] 04-10-2022 14:10-0400 Inhaled oxygen flow rate 4 L/min MD John Carlson Work Phone: [facility] 04-10-2022 11:36-0400 Body temperature 97.9 [degF] MD John Carlson Work Phone: [facility] 03-13-2022 19:00-0400 Diastolic blood pressure 92 mm[Hg] MD John Carlson Work Phone: [facility] 03-13-2022 19:00-0400 Heart rate 84 /min MD John Carlson Work Phone: [facility] 03-13-2022 19:00-0400 Respiratory rate 16 /min MD John Carlson Work Phone: [facility] 03-13-2022 19:00-0400 SaO2% (BldA) [Mass fraction] 98 % MD John Carlson Work Phone: [facility] 03-13-2022 19:00-0400 Systolic blood pressure 148 mm[Hg] MD Jonh Carlson Work Phone: [facility] 03-13-2022 18:03-0400 Body temperature 98 [degF] MD John Carlson Work Phone: [facility] 03-13-2022 17:33-0400 Inhaled oxygen flow rate 6 L/min MD John Carlson Work Phone: [facility] 03-13-2022 17:13-0400 Body height 165.1 cm MD John Carlson Work Phone: [facility] 03-13-2022 17:13-0400 Body mass index (BMI) [Ratio] 56.9 kg/m2 MD John Carlson Work Phone: [facility] 03-13-2022 17:13-0400 Body weight 155.12 kg MD John Carlson Work Phone: [facility] 02-13-2022 17:05-0400 Diastolic blood pressure 81 mm[Hg] MD John Carlson Work Phone: [facility] 02-13-2022 17:05-0400 Heart rate 76 /min MD John Carlson Work Phone: [facility] 02-13-2022 17:05-0400 Respiratory rate 16 /min MD Jhon Carlson Work Phone: [facility] 02-13-2022 17:05-0400 SaO2% (BldA) [Mass fraction] 94 % MD John Carlson Work Phone: [facility] 02-13-2022 17:05-0400 Systolic blood pressure 131 mm[Hg] MD John Carlson Work Phone: [facility] 02-13-2022 15:44-0400 Body height 165.1 cm MD John Carslon Work Phone: [facility] 02-13-2022 15:44-0400 Body mass index (BMI) [Ratio] 56.5 kg/m2 MD John Carlson Work Phone: [facility] 02-13-2022 15:44-0400 Body weight 154 kg MD John Carlson Work Phone: [facility] 02-13-2022 12:20-0400 Body temperature 97.9 [degF] MD John Carlson Work Phone: [facility] 08-02-2020 13:24-0500 BMI (Body Mass Index) 58.74 kg/m2 [facility] 08-02-2020 13:24-0500 Body Temperature 98.4 [degF] [facility] 08-02-2020 13:24-0500 Body weight 160.12 kg [facility] 08-02-2020 13:24-0500 BP Diastolic 91 mm[Hg] [facility] 08-02-2020 13:24-0500 BP Systolic 150 mm[Hg] [facility] 08-02-2020 13:24-0500 Height 165.1 cm [facility] 08-02-2020 13:24-0500 Pulse (Heart Rate) 91 /min [facility] 08-02-2020 13:24-0500 Pulse Oximetry 97 % [facility] Encounters Encounter Date Encounter Type Care Provider Facility Start: 04-22-2024 End: 04-22-2024 Telephone encounter Amarilysfrancisco GARCIAW Hematology/Oncology Start: 04-18-2024 End: 04-18-2024 Office outpatient visit 25 minutes Sharif Joseph MD Work Phone: Hematology/Oncology Comment on above: Primary hypercoagula ble state (HCC) (Primary Dx); MTHFR mutation; Factor V Leiden (HCC); Iron deficiency anemia, unspecified iron deficiency anemia type Start: 04-18-2024 End: 04-18-2024 ambulatory [facility] Facility:[facility] Start: 04-14-2024 Patient encounter procedure [facility] Provider [facility] Department Start: 04-09-2024 End: 04-09-2024 ambulatory [facility] Start: 04-08-2024 Telephone encounter Bello Gan Hematology/Oncology Comment on above: letter of medical cl earance Start: 04-08-2024 End: 04-08-2024 Departed Referred DO Dannie Dickinson Work Phone: [facility] Start: 04-08-2024 End: 04-08-2024 ambulatory DANNEI DICKINSON [facility] Work Phone: Start: 04-02-2024 Telephone encounter Bello Gan Hematology/Oncology Start: 04-01-2024 ambulatory Sharif khanna MD Work Phone: Hematology/Oncology Comment on above: Hidradenitis support efren Start: 03-26-2024 End: 03-26-2024 ambulatory [facility] Start: 03-24-2024 End: 03-24-2024 ambulatory Yancy Cancino MD [facility] Start: 03-20-2024 ambulatory Sharif khanna MD Work Phone: Hematology/Oncology Comment on above: Celest[place] Start: 03-17-2024 End: 03-17-2024 ambulatory DANNIE CASTILLOO Not Available Start: 03-12-2024 End: 03-12-2024 ambulatory [facility] Start: 03-10-2024 End: 03-10-2024 ambulatory Yancy Cancino MD Facility: [facility] Start: 02-27-2024 End: 02-27-2024 ambulatory DANNIE CASTILLOO Not Available Start: 02-13-2024 End: 02-13-2024 ambulatory [facility] Start: 01-23-2024 End: 01-23-2024 ambulatory [facility] Start: 01-10-2024 End: 01-10-2024 ambulatory [facility] Start: 12-25-2023 End: 12-25-2023 ambulatory [facility] Start: 12-20-2023 End: 12-20-2023 Office outpatient visit 25 minutes Sharif Joseph MD Work Phone: Hematology/Oncology Comment on above: Primary hypercoagula ble state (HCC) (Primary Dx); Factor V Leiden (HCC); MTHFR mutation; Iron deficiency anemia, unspecified iron deficiency anemia type; Factor V deficiency (HCC) Start: 12-20-2023 End: 12-20-2023 ambulatory HARLEY THACKER Facility:[facility] Start: 12-12-2023 End: 12-13-2023 ambulatory MATTHEW PITTMAN [facility] Start: 12-12-2023 End: 12-12-2023 [facility] Start: 12-11-2023 End: 12-11-2023 ambulatory [facility] Start: 12-11-2023 End: 12-11-2023 Evaluation and management of inpatient MAYRA RYAA [facility] Start: 12-10-2023 End: 12-11-2023 Evaluation and management of inpatient COLLINS MEJIA [facility] Start: 12-07-2023 End: 12-08-2023 ambulatory [facility] Start: 12-07-2023 Encounter for genera l adult medical examination without abnormal findings [facility] Start: 12-07-2023 End: 12-07-2023 Patient encounter status Harley Mirandas COPY SUPERVISOR-FURNITURE DECALS INSPECTOR Work Phone: [facility] [employer] Work Phone: Start: 12-07-2023 End: 12-07-2023 Periodic preventive med est patient 18-39 yrs Harley Thacker COPY SUPERVISOR-FURNITURE DECALS INSPECTOR Work Phone: [facility] Family [facility] Comment on above: Wellness examination (Primary Dx); Shalom's disease; Controlled type 2 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 complication, without long-term current use of insulin ([facility]-H[facility]); Encounter for Papanicolaou smear for cervical cancer screening; Hidradenitis suppurativa Start: 12-07-2023 End: 12-07-2023 ambulatory [facility] Start: 12-07-2023 Encounter for genera l adult medical examination without abnormal findings [facility] Start: 12-07-2023 End: 12-07-2023 ambulatory [facility] Start: 12-06-2023 Orders Only Harley jordan COPY SUPERVISOR-FURNITURE DECALS INSPECTOR Work Phone: [facility] Start: 12-05-2023 End: 12-05-2023 ambulatory [facility] Pat Phone Call Provider 1 [facility] - Pre Ad[facility] Start: 12-03-2023 Telephone encounter Gwen Kwon [facility] Start: 11-29-2023 End: 11-29-2023 [facility] Start: 11-29-2023 End: 11-29-2023 Office outpatient new 45 minutes Sharif Joseph MD Work Phone: Hematology/Oncology Comment on above: Factor V Leiden (HCC ) (Primary Dx); Gastrointestinal hemorrhage, unspecified gastrointestinal hemorrhage type; Iron deficiency anemia, unspecified iron deficiency anemia type; MTHFR mutation; Primary hypercoagulable state (HCC); History of pulmonary embolism Start: 11-28-2023 End: 11-28-2023 ambulatory [facility] Start: 11-28-2023 End: 11-28-2023 Office outpatient visit 15 minutes Pam Mittal MD Work Phone: [facility] Card[facility] Comment on above: Essential hypertensi on (Primary Dx) Start: 11-27-2023 Chart abstracting Sharif clarke MD Work Phone: Hematology/Oncology Start: 11-27-2023 Telephone encounter Claribel Myers CMA [facility] Start: 11-27-2023 End: 11-27-2023 Office outpatient visit 15 minutes [facility] COPY SUPERVISOR-FURNITURE DECALS INSPECTOR Work Phone: [facility] Behavioral [facility] Comment on above: Bipolar depression ( [facility]-HCC) (Primary Dx); Post traumatic stress disorder (PTSD); Generalized anxiety disorder; Attention deficit hyperactivity disorder, combined type Start: 11-27-2023 End: 11-27-2023 ambulatory [facility] Start: 11-27-2023 End: 11-27-2023 ambulatory [facility] Start: 11-15-2023 End: 2023 ambulatory [facility] Start: 11-14-2023 End: 11-14-2023 ambulatory [facility] Start: 11-14-2023 Encounter for other preprocedural examination [facility] Start: 11-14-2023 End: 11-14-2023 Office outpatient visit 15 minutes [facility] COPY SUPERVISOR-FURNITURE DECALS INSPECTOR Work Phone: [facility] Comment on above: Preoperative clearan ce (Primary Dx); Abnormal echocardiogram; History of DVT (deep vein thrombosis); History of pulmonary embolism; Factor 5 Leiden mutation, heterozygous (CMS-HCC); 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 Start: 11-12-2023 Telephone encounter Bruna Plasencia CMA [facility] General Surgery Start: 11-09-2023 End: 11-10-2023 ambulatory KATYA DENISE [facility] Start: 11-09-2023 Encounter for other preprocedural examination [facility] Start: 11-09-2023 End: 11-09-2023 Patient encounter procedure [facility] Pre-Admission Testing 1 [facility] - Pre Ad[facility] Comment on above: Preop examination (P rimary Dx); MTHFR (methylene THF reductase) deficiency and homocystinuria ([facility]); BMI 60.0-69.9, adult ([facility]); Hypertension, unspecified type; Blood clotting disorder ([facility]) Start: 11-09-2023 End: 11-09-2023 Preprocedural examination done [facility] 1 [facility] Start: 11-08-2023 End: 11-08-2023 ambulatory [facility] Start: 11-07-2023 End: 11-07-2023 Office outpatient new 45 minutes Corine Germán Catherine COPY SUPERVISOR-FURNITURE DECALS INSPECTOR Work Phone: [facility] General Surgery Comment on above: Gastroesophageal ref lux disease, unspecified whether esophagitis present (Primary Dx); Nausea and vomiting, unspecified vomiting type; Diarrhea, unspecified type; Morbid obesity ([facility]) Start: 11-07-2023 End: 11-07-2023 ambulatory [facility] Start: 10-30-2023 End: 10-30-[address] [facility] Start: 10-23-2023 Refill Susana Rizvi [facility] Family [facility] Start: 10-22-2023 Telephone encounter Lauryn Fry [facility] Medical On[facility] Start: 10-19-2023 End: 10-19-2023 ambulatory YASHIRA M [facility] Start: 10-08-2023 End: 10-08-2023 Office outpatient new 45 minutes [facility] COPY SUPERVISOR-FURNITURE DECALS INSPECTOR Work Phone: [facility] Family [facility] Comment on above: PE (pulmonary thromb oembolism) ([facility]) (Primary Dx); History of pulmonary embolism; History of DVT (deep vein thrombosis); Factor 5 Leiden mutation, heterozygous ([facility]); 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 ([facility]); Bipolar 1 disorder ([facility]); Insulin resistance; History of prediabetes; History of insulin resistance; Gastroesophageal reflux disease, unspecified whether esophagitis present; Nausea and vomiting, unspecified vomiting type; Hidradenitis suppurativa; Migraine without aura and without status migrainosus, not intractable; Prediabetes Start: 10-08-2023 End: 10-08-2023 ambulatory [facility] Start: 06-25-2023 End: 06-25-2023 ambulatory Yancy Cancino MD [facility] Start: 05-28-2023 End: 05-28-2023 ambulatory Yancy Cancino MD [facility] Start: 02-01-2023 ambulatory NIKOLAS SHAMMO Facility:[facility] Start: 12-05-2022 ambulatory NIKOLAS SHAMMO Facility:[facility] Start: 11-22-2022 End: 11-22-2022 ambulatory NIKOLAS SHAMMO Facility:[facility] Start: 11-02-2022 End: 11-03-[address] KACEY KAPOOR . Facility:[facility] Start: 10-24-2022 Encounter for genera l adult medical examination without abnormal findings NIKOLASKURT KOVACS [facility] Start: 10-23-2022 End: 10-24-2022 Encounter for general adult medical examination without abnormal findings NIKOLAS SHAMMO Facility:[facility] Start: 10-23-2022 End: 10-24-2022 ambulatory NIKOLAS KOVACS Facility:[facility] Start: 09-28-2022 End: 09-29-[address] KACEY KAPOOR . Facility:[facility] Start: 09-26-2022 End: 09-26-2022 ambulatory DELONTE BAUTISTA . Facility:[facility] Start: 09-05-2022 End: 09-05-2022 ambulatory [facility] Facility:[facility] Start: 06-05-2022 End: 06-06-2022 ambulatory [facility] Facility:[facility] Start: 06-01-2022 End: 06-02-[address] KACEY KAPOOR . Facility:[facility] Start: 05-05-2022 Registered Recurring MD John Carlson Work Phone: [facility] Start: 04-10-2022 End: 04-10-2022 Admission to same day surgery center MD John Carlson Work Phone: [facility] [place] Start: 04-06-2022 End: 04-06-2022 Patient encounter procedure MD John Carlson Work Phone: [facility] Start: 03-30-2022 End: 03-30-2022 Patient encounter procedure MD John Carlson Work Phone: [facility] [place] Start: 03-13-2022 End: 03-13-2022 Admission to same day surgery center MD John Carlson Work Phone: [facility] [place] Start: 03-09-2022 End: 03-09-2022 Patient encounter procedure MD John Carlson Work Phone: [facility] Start: 03-01-2022 End: 03-02-2022 ambulatory PAM FLANAGAN Facility:[facility] Start: 02-13-2022 End: 02-13-2022 Admission to same day surgery center MD John Carlson Work Phone: [facility] [place] Start: 02-09-2022 End: 02-09-2022 Patient encounter procedure MD John Carlson Work Phone: [facility] Start: 08-02-2020 End: 08-02-2020 Patient encounter procedure SANTIAGO SHELL [facility] Start: 08-02-2020 End: 08-02-2020 Office outpatient new 60 minutes Santiago Shell Work Phone: [facility] Rheumatology Comment on above: Lupus (HCC) (Primary Dx); Suppurative hidradenitis; Chronic fatigue; YULY (obstructive sleep apnea); Vitamin D insufficiency; Morbid obesity with BMI of 50.0-59.9, adult (HCC) Start: 06-03-2020 Patient encounter procedure ELIZABETH SHEMARTrev [facility] Procedures Date Procedure Procedure Detail Performing [...] w/medical services Bipolar depression (CMS-HCC) Yashira Mi COPY SUPERVISOR-FURNITURE DECALS INSPECTOR Work Phone: Comment on above: Generalized anxiety disorder (Primary Dx); Bipolar depression (CMS-HCC); Post traumatic stress disorder (PTSD); Attention deficit hyperactivity disorder, combined type Start: 10-08-2023 Gluc bld gluc mntr d ev cleared fda spec home use Harley Thacker COPY SUPERVISOR-FURNITURE DECALS INSPECTOR Work Phone: Start: 10-08-2023 Adult depression screening assessment Harley Thacker COPY SUPERVISOR-FURNITURE DECALS INSPECTOR Work Phone: Start: 04-10-2022 OR Wound Debridement/I&D/Hydraden [...] 12-06-2024 Adult BMI Screening Adult BMI Screening [facility] Start: 12-06-2024 Diabetic foot examination Diabetic Foot Exam [facility] Start: 12-06-2024 Tobacco Screening Tobacco Screening [facility] Start: 11-27-2024 Adult BMI Screening Adult BMI Screening [facility] Start: 11-27-2024 Tobacco Screening Tobacco Screening [facility] Start: 11-13-2024 Adult BMI Screening Adult BMI Screening [facility] Start: 11-13-2024 Tobacco Screening Tobacco Screening [facility] Start: 11-11-2024 Tobacco Screening Tobacco Screening [facility] Start: 11-08-2024 Tobacco Screening Tobacco Screening [facility] Start: 11-06-2024 Adult BMI Screening Adult BMI Screening [facility] Start: 11-06-2024 Tobacco Screening Tobacco Screening [facility] Start: 10-19-2024 Adult BMI Screening Adult BMI Screening [facility] Start: 10-19-2024 End: 04-18-2025 CBC W Auto Differential panel - Blood COMPLETE BLOOD COUNT AND DIFFERENTIAL Lab Routine Primary hypercoagulable state (HCC) MTHFR mutation Iron deficiency anemia, unspecified iron deficiency anemia type Expected: 10/19/2024, Expires: 04/18/2025 [facility] Work Phone: Comment on above: Expected: 10/19/2024, Expires: Start: 10-19-2024 End: 04-18-2025 Cobalamin (Vitamin B12) [Mass/volume] in Serum or Plasma VITAMIN B12 Lab Routine Primary hypercoagulable state (HCC) MTHFR mutation Iron deficiency anemia, unspecified iron deficiency anemia type Expected: 10/19/2024, Expires: 04/18/2025 [facility] Comment on above: Expected: 10/19/2024, Expires: Start: 10-19-2024 End: 04-18-2025 Comprehensive metabolic 2000 panel - Serum or Plasma COMPREHENSIVE METABOLIC PANEL Lab Routine Primary hypercoagulable state (HCC) MTHFR mutation Iron deficiency anemia, unspecified iron deficiency anemia type Expected: 10/19/2024, Expires: 04/18/2025 [facility] Comment on above: Expected: 10/19/2024, Expires: Start: 10-19-2024 End: 04-18-2025 Ferritin [Mass/volume] in Serum or Plasma FERRITIN Lab Routine Primary hypercoagulable state (HCC) MTHFR mutation Iron deficiency anemia, unspecified iron deficiency anemia type Expected: 10/19/2024, Expires: 04/18/2025 [facility] Comment on above: Expected: 10/19/2024, Expires: Start: 10-19-2024 End: 04-18-2025 Folate [Mass/volume] in Serum or Plasma FOLATE, SERUM Lab Routine Primary hypercoagulable state (HCC) MTHFR mutation Iron deficiency anemia, unspecified iron deficiency anemia type Expected: 10/19/2024, Expires: 04/18/2025 [facility] Comment on above: Expected: 10/19/2024, Expires: Start: 10-19-2024 End: 04-18-2025 Iron and Iron binding capacity panel - Serum or Plasma IRON AND TIBC Lab Routine Primary hypercoagulable state (HCC) MTHFR mutation Iron deficiency anemia, unspecified iron deficiency anemia type Expected: 10/19/2024, Expires: 04/18/2025 [facility] Comment on above: Expected: 10/19/2024, Expires: Start: 10-19-2024 Tobacco Screening Tobacco Screening [facility] Start: 10-17-2024 End: 10-17-2024 Follow-up encounter 10/17/2024 11:30 AM EST Visi t (SP) Office Hematology/Oncology [address] [place] [address] Sharif Joseph MD [address] [place] [address] 6 month follow up lab Hematology/Oncolo gy Comment on above: 6 month follow up lab Start: 10-17-2024 End: 10-17-2024 Patient encounter procedure 10/17/2024 11:15 AM EST Office Visit [facility] [address] [place] [address] 6 month follow up lab [facility] Comment on above: 6 month follow up lab Start: 10-08-2024 Adult BMI Screening Adult BMI Screening [facility] Start: 10-08-2024 Depression Screening Depression Screening [facility] Start: 10-08-2024 Tobacco Screening Tobacco Screening [facility] Start: 05-04-2024 Influenza vaccination [facility] Start: 04-18-2024 End: 04-18-2024 Follow-up encounter 04/18/2024 11:30 AM EDT Visi t (SP) Office Hematology/Oncology [address] [place] [address] Sharif Joseph MD [address] [place] [address] 3 month follow up lab Hematology/Oncolo gy Comment on above: 3 month follow up lab Start: 04-18-2024 End: 04-18-2024 Patient encounter procedure 04/18/2024 11:15 AM EDT Office Visit [facility] [address] [place] [address] 3 month follow up lab [facility] Comment on above: 3 month follow up lab Start: 04-08-2024 [facility] Start: 03-20-2024 End: 12-19-2024 CBC W Auto Differential panel - Blood COMPLETE BLOOD COUNT AND DIFFERENTIAL Lab Routine Factor V Leiden (HCC) MTHFR mutation Primary hypercoagulable state (HCC) Iron deficiency anemia, unspecified iron deficiency anemia type Expected: 03/20/2024 (Approximate), Expires: 12/19/2024 [facility] Work Phone: Comment on above: Expected: 03/20/2024 (Approximate), Expi res: 12/19/2024 Start: 03-20-2024 End: 12-19-2024 Cobalamin (Vitamin B12) [Mass/volume] in Serum or Plasma VITAMIN B12 Lab Routine Factor V Leiden (HCC) MTHFR mutation Primary hypercoagulable state (HCC) Iron deficiency anemia, unspecified iron deficiency anemia type Expected: 03/20/2024 (Approximate), Expires: 12/19/2024 [facility] Work Phone: Comment on above: Expected: 03/20/2024 (Approximate), Expi res: 12/19/2024 Start: 03-20-2024 End: 12-19-2024 Comprehensive metabolic 2000 panel - Serum or Plasma COMPREHENSIVE METABOLIC PANEL Lab Routine Factor V Leiden (HCC) MTHFR mutation Primary hypercoagulable state (HCC) Iron deficiency anemia, unspecified iron deficiency anemia type Expected: 03/20/2024 (Approximate), Expires: 12/19/2024 [facility] Work Phone: Comment on above: Expected: 03/20/2024 (Approximate), Expi res: 12/19/2024 Start: 03-20-2024 End: 12-19-2024 Ferritin [Mass/volume] in Serum or Plasma FERRITIN Lab Routine Factor V Leiden (HCC) MTHFR mutation Primary hypercoagulable state (HCC) Iron deficiency anemia, unspecified iron deficiency anemia type Expected: 03/20/2024 (Approximate), Expires: 12/19/2024 [facility] Work Phone: Comment on above: Expected: 03/20/2024 (Approximate), Expi res: 12/19/2024 Start: 03-20-2024 End: 12-19-2024 Folate [Mass/volume] in Serum or Plasma FOLATE, SERUM Lab Routine Factor V Leiden (HCC) MTHFR mutation Primary hypercoagulable state (HCC) Iron deficiency anemia, unspecified iron deficiency anemia type Expected: 03/20/2024 (Approximate), Expires: 12/19/2024 [facility] Work Phone: Comment on above: Expected: 03/20/2024 (Approximate), Expi res: 12/19/2024 Start: 03-20-2024 End: 12-19-2024 Iron and Iron binding capacity panel - Serum or Plasma IRON AND TIBC Lab Routine Factor V Leiden (HCC) MTHFR mutation Primary hypercoagulable state (HCC) Iron deficiency anemia, unspecified iron deficiency anemia type Expected: 03/20/2024 (Approximate), Expires: 12/19/2024 [facility] Work Phone: Comment on above: Expected: 03/20/2024 (Approximate), Expi res: 12/19/2024 Start: 01-02-2024 End: 04-02-2024 Homocysteine [Moles/volume] in Serum or Plasma HOMOCYSTEINE Lab Routine Factor V Leiden (HCC) Gastrointestinal hemorrhage, unspecified gastrointestinal hemorrhage type Iron deficiency anemia, unspecified iron deficiency anemia type MTHFR mutation Primary hypercoagulable state (HCC) History of pulmonary embolism Expected: 01/02/2024 (Approximate), Expires: 04/02/2024 [facility] Work Phone: Comment on above: Expected: 01/02/2024 (Approximate), Expi res: 04/02/2024 Start: 12-25-2023 End: 12-25-2023 Patient encounter procedure 12/25/2023 9:30 AM EDT Off ice Visit [facility] [address] [place] [address], [place] [address] Claribel Olson LISW [address] [place] [phone] [facility] Start: 12-12-2023 End: 12-12-2023 Patient encounter procedure 12/12/2023 9:30 AM EDT Appointment [facility] [address] [place] [phone] [facility] Start: 12-11-2023 End: 12-11-2023 Patient encounter procedure 12/11/2023 9:30 AM EDT Off ice Visit [facility] [address] [place] [address], [place] [phone] Claribel Olson LISW [address] [facility] [place] [place] [phone] [facility] Start: 12-10-2023 End: 12-10-2023 Admission to same day surgery center 12/10/2023 12:30 PM EDT - 12/10/2023 1:00 PM EDT Surgery [facility] Surgery [address] [place] [phone] Collins Mejia DO [address] [place] [address] ESOPHAGOGASTRODUODENOSCOPY DIAGNOSTIC [19890 (CPT )] [facility] Comment on above: ESOPHAGOGASTRODUODENOSCOPY DIAGNOSTIC [4 3235 (CPT )] Start: 12-10-2023 End: 12-10-2023 Esophagogastroduodenoscopy transoral diagnostic ESOPHAGOGASTRODUODENOSCOPY DIAGNOSTIC gastroesophageal reflux, nausea, vomiting 12/10/2023 12:30 PM EDT [facility] Start: 12-10-2023 Subsequent hospital visit by physician 12/10/2023 12:30 PM EDT Hospital Encounter [facility] [address] [place] [address] [place] [address] [place] [address] [phone] [facility] Start: 12-10-2023 End: 12-10-2023 Admission to same day surgery center 12/10/2023 7:30 AM EDT - 12/10/2023 8:00 AM EDT Surgery [facility] [address] [place] [address] Collins Mejia, DO [address] [place] [address] [phone] ESOPHAGOGASTRODUODENOSCOPY DIAGNOSTIC [31170 (CPT )] [facility] Comment on above: ESOPHAGOGASTRODUODENOSCOPY DIAGNOSTIC [4 3235 (CPT )] Start: 12-10-2023 End: 12-10-2023 Esophagogastroduodenoscopy transoral diagnostic ESOPHAGOGASTRODUODENOSCOPY DIAGNOSTIC gastroesophageal reflux, nausea, vomiting 12/10/2023 7:30 AM EDT [facility] Start: 12-10-2023 Subsequent hospital visit by physician 12/10/2023 7:30 AM EDT Hospital Encounter [facility] [address] [place] [phone] Collins Mejia, DO [facility] [place], [place] [phone] [facility] Start: 12-07-2023 End: 12-07-2023 Patient encounter procedure 12/07/2023 11:00 AM EDT Office Visit [facility] [address] [place] [address] [phone] Harley Thacker, COPY SUPERVISOR-FURNITURE DECALS INSPECTOR [address] [place] [address] [facility] Start: 11-28-2023 End: 11-28-2023 Patient encounter procedure 11/28/2023 10:15 AM EDT Office Visit [facility] [address] [address] Pam Mittal MD [address] [place] [phone] [facility] Start: 11-27-2023 End: 11-27-2023 Patient encounter procedure [facility] Start: 11-21-2023 End: 11-12-2024 Echo complete W/O contrast Echo complete W/O contrast Echocardiography Routine Preoperative clearance Abnormal echocardiogram History of pulmonary embolism Atrial mass Expected: 11/21/2023 (Approximate), Expires: 11/12/2024 [facility] Comment on above: Expected: 11/21/2023 (Approximate), Expi res: 11/12/2024 Start: 11-19-2023 End: 11-19-2023 Admission to same day surgery center 11/19/2023 12:15 PM EDT - 11/19/2023 12:45 PM EDT Surgery [facility] Surgery [address] [place] [address] Collins Mejia DO [address] [place] [address] ESOPHAGOGASTRODUODENOSCOPY DIAGNOSTIC [18433 (CPT )] [facility] Comment on above: ESOPHAGOGASTRODUODENOSCOPY DIAGNOSTIC [4 3235 (CPT )] Start: 11-19-2023 End: 11-19-2023 Anesthesia consultation 11/19/2023 12:15 PM EDT Anesthesia Event [facility] Surgery [address] [place] [phone] Mayra Raya, DO [address] [place] [address] [facility] Start: 11-19-2023 End: 11-19-2023 Esophagogastroduodenoscopy transoral diagnostic ESOPHAGOGASTRODUODENOSCOPY DIAGNOSTIC gastroesophageal reflux, nausea, vomiting 11/19/2023 12:15 PM EDT [facility] Start: 11-19-2023 Subsequent hospital visit by physician [facility] Start: 11-15-2023 End: 11-12-2024 XR Chest PA and Lateral X-ray chest 2 views Imaging Routine Preoperative clearance Expected: 11/15/2023 (Approximate), Expires: 11/12/2024 [facility] Work Phone: Comment on above: Expected: 11/15/2023 (Approximate), Expi res: 11/12/2024 Start: 11-15-2023 End: 11-15-2023 Patient encounter procedure 11/15/2023 10:30 AM EDT Appointment [facility] Imaging [address] [place] [phone] [facility] Start: 11-14-2023 End: 11-14-2023 Patient encounter procedure 11/14/2023 3:15 PM EDT Off ice Visit [facility] [address] [place] [address] Harley Thacker APRN-DAVID [address] [place] [address] [facility] Start: 11-14-2023 End: 11-13-2024 CT Chest WO and CT angiogram Coronary arteries W contrast IV CT angiogram chest Imaging Routine Abnormal echocardiogram History of DVT (deep vein thrombosis) History of pulmonary embolism Factor 5 Leiden mutation, heterozygous ([facility]-H[facility]) 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 ([facility]-HCC) Chest discomfort Shortness of breath Atrial mass Expected: 11/14/2023, Expires: 11/13/2024 [facility] Comment on above: Expected: 11/14/2023, Expires: Start: 11-14-2023 End: 11-14-2023 Telemedicine consultation with patient 11/14/2023 9:30 AM EDT Telemedicine [facility] [address] [place] [address] Claribel Olson LISW [address] [place] [address] [facility] Start: 11-09-2023 End: 11-09-2023 Patient encounter procedure 11/09/2023 9:45 AM EST Procedure visit [facility] - Pre Admit [address] [place] [phone] [facility] Pre Admit Start: 11-07-2023 End: 11-07-2023 Anesthesia consultation 11/07/2023 11:59 PM EST Anesthesia Event [facility] Surgery [address] [place] [phone] Mayra Raya, DO [address] [place] [address] [facility] Start: 11-07-2023 End: 11-07-2023 Patient encounter procedure 11/07/2023 10:00 AM EST Office Visit [facility] [address] [place] [address] Corine Catherine, COPY SUPERVISOR-FURNITURE DECALS INSPECTOR [address] [place] [address] [facility] Start: 10-30-2023 End: 10-30-2023 Patient encounter procedure 10/30/2023 9:30 AM EST Off ice Visit [facility] [address] [place] [phone] Claribel Olson LISW [address] [place] [address] [facility] Start: 10-19-2023 End: 10-19-2023 Patient encounter procedure 10/19/2023 10:00 AM EST Office Visit [facility] [address] [place] [phone] Yashira Mi, COPY SUPERVISOR-FURNITURE DECALS INSPECTOR [address] [place] [address] [facility] Start: 09-03-2023 Behavioral Health Screening Behavioral Health Screening [facility] Start: 09-03-2023 Depression Assessment Depression Assessment [facility] Start: 05-04-2023 Covid-19 Vaccine ( season) Covid-19 Vaccine () [facility] Start: 05-04-2023 Influenza vaccination [facility] Start: 05-03-2022 Registered Recurring Registered Recurring [facility] - O/P Start: 04-21-2022 Registered Recurring Registered Recurring [facility] - O/P Start: 04-10-2022 [facility] Work Phone: Start: 04-10-2022 [facility] Work Phone: Start: 04-10-2022 OR Wound Debridement/I&D/Hydradenitis (Right) OR Wound Debridement/I&D/Hydradenitis (Right) [facility] Start: 04-10-2022 End: 04-10-2022 Admission to same day surgery center Departed Surgical Day Care [facility] [place] Start: 04-06-2022 End: 04-06-2022 Patient encounter procedure Departed Clinical [facility] Start: 03-13-2022 End: 03-13-2022 [facility] Work Phone: Start: 02-13-2022 End: 02-13-2022 [facility] Work Phone: Start: 05-04-2020 Influenza vaccination given Sequential Influenza Vacci ne (#1) [facility] Start: 11-17-2019 Screening for malignant neoplasm of cervix HPV Testing [facility] Start: 09-03-2019 DTaP,Tdap and Td Vaccines (8 - Td or Tdap) DTaP,Tdap and Td Vaccines (8 - Td or Tdap) [facility] Start: 09-03-2019 Urine microalbumin profile DTaP,Tdap,Td Vaccine (8 - T d or Tdap) [facility] Start: 06-10-2019 Tetanus vaccination Tetanus: Every 10yrs [facility] Start: 2010 Screening for malignant neoplasm of cervix [facility] Start: 2008 Shingrix Vaccine (1 of 2) Shingrix Vaccine (1 of 2) [facility] Start: 11-17-2007 Adult BMI Follow Up Plan Adult BMI Follow Up Plan [facility] Start: 11-17-2007 Anxiety Screening Anxiety Screening [facility] Start: 11-17-2007 Depression Screening Depression Screening [facility] Start: 11-17-2007 Hepatitis C antibody, confirmatory test Hepatitis C Screening [facility] Start: 11-17-2007 Hepatitis C screening Hepatitis C Screening [facility] Start: 11-17-2007 HIV screening HIV Screening [facility] Start: 2004 HIV screening HIV Screening [facility] Start: 2001 Adolescent depression screening assessment Depression Screening (PHQ9) [facility] Start: 2000 Screening for malignant neoplasm of cervix Cervical Cancer Screening [facility] Start: 11-17-1995 Pneumococcal vaccination Pneumococcal Vaccine (1 of 2 - PCV) [facility] Start: 1994 Covid-19 Vaccine (#1) Covid-19 Vaccine (#1) [facility] Start: 1992 History and physical examination, annual for health maintenance Wellness Visit [facility] Start: 1989 Glaucoma screening Diabetic Ophthalmology Exam imagine [facility] Start: 1989 Screening for malignant neoplasm of cervix Pap Smear [facility] Calprotectin [Mass/m ass] in Stool Calprotectin stool Lab Routine Diarrhea, unspecified type 11/07/2023 10:38 PM EST [facility] End: 11-06-2024 Calprotectin stool Calprotectin stool Lab Routine Diarrhea, unspecified type 1 Occurrences starting 11/07/2023 until 11/06/2024 [facility] Comment on above: 1 Occurrences starting 11/07/2023 until 11/06/2024 End: 11-28-2024 CBC W Auto Differential panel - Blood CBC + DIFF Lab Routine Factor V Leiden (HCC) Gastrointestinal hemorrhage, unspecified gastrointestinal hemorrhage type Iron deficiency anemia, unspecified iron deficiency anemia type Every 3 weeks for 6 Occurrences starting 11/29/2023 until 11/28/2024 [facility] Work Phone: Comment on above: Every 3 weeks for 6 Occurrences starting 11/29/2023 until 11/28/2024 End: 11-28-2024 Cobalamin (Vitamin B12) [Mass/volume] in Serum or Plasma VITAMIN B12 BLOOD Lab Routine Factor V Leiden (HCC) Gastrointestinal hemorrhage, unspecified gastrointestinal hemorrhage type Iron deficiency anemia, unspecified iron deficiency anemia type Every 3 weeks for 6 Occurrences starting 11/29/2023 until 11/28/2024 [facility] Work Phone: Comment on above: Every 3 weeks for 6 Occurrences starting 11/29/2023 until 11/28/2024 End: 11-28-2024 Comprehensive metabolic 2000 panel - Serum or Plasma COMP METABOLIC PANEL Lab Routine Factor V Leiden (HCC) Gastrointestinal hemorrhage, unspecified gastrointestinal hemorrhage type Iron deficiency anemia, unspecified iron deficiency anemia type Every 3 weeks for 6 Occurrences starting 11/29/2023 until 11/28/2024 [facility] Work Phone: Comment on above: Every 3 weeks for 6 Occurrences starting 11/29/2023 until 11/28/2024 End: 12-06-2024 Cytopathology procedure, preparation of smear, genital source Pap Smear Pathology and Cytology Routine Wellness examination Encounter for Papanicolaou smear for cervical cancer screening 1 Occurrences starting 12/07/2023 until 12/06/2024 [facility] Work Phone: Comment on above: 1 Occurrences starting 12/07/2023 until 12/06/2024 End: 11-06-2024 Esophagogastroduodenoscopy EGD GI Routine Gastroesophageal reflux disease, unspecified whether esophagitis present Nausea and vomiting, unspecified vomiting type 1 Occurrences starting 11/07/2023 until 11/06/2024 [facility] Work Phone: Comment on above: 1 Occurrences starting 11/07/2023 until 11/06/2024 Esophagogastroduoden oscopy transoral diagnostic ESOPHAGOGASTRODUODENOSCOPY DIAGNOSTIC gastroesophageal reflux, nausea, vomiting [facility] End: 11-28-2024 Ferritin [Mass/volume] in Serum or Plasma FERRITIN BLD Lab Routine Factor V Leiden (HCC) Gastrointestinal hemorrhage, unspecified gastrointestinal hemorrhage type Iron deficiency anemia, unspecified iron deficiency anemia type Every 3 weeks for 6 Occurrences starting 11/29/2023 until 11/28/2024 [facility] Work Phone: Comment on above: Every 3 weeks for 6 Occurrences starting 11/29/2023 until 11/28/2024 End: 11-28-2024 Folate [Mass/volume] in Serum or Plasma FOLATE SERUM Lab Routine Factor V Leiden (HCC) Gastrointestinal hemorrhage, unspecified gastrointestinal hemorrhage type Iron deficiency anemia, unspecified iron deficiency anemia type Every 3 weeks for 6 Occurrences starting 11/29/2023 until 11/28/2024 [facility] Work Phone: Comment on above: Every 3 weeks for 6 Occurrences starting 11/29/2023 until 11/28/2024 End: 12-06-2024 High risk HPV w/yoshi High risk HPV w/yoshi Lab Routine Wellness examination Encounter for Papanicolaou smear for cervical cancer screening 1 Occurrences starting 12/07/2023 until 12/06/2024 [facility] Comment on above: 1 Occurrences starting 12/07/2023 until 12/06/2024 End: 11-28-2024 Iron and Iron binding capacity panel - Serum or Plasma IRON + TIBC Lab Routine Factor V Leiden (HCC) Gastrointestinal hemorrhage, unspecified gastrointestinal hemorrhage type Iron deficiency anemia, unspecified iron deficiency anemia type Every 3 weeks for 6 Occurrences starting 11/29/2023 until 11/28/2024 [facility] Work Phone: Comment on above: Every 3 weeks for 6 Occurrences starting 11/29/2023 until 11/28/2024 Patient Education [facility] Work Phone: Patient referral [facility] Work Phone: [facility] Immunizations Immunization Date Immunization Notes Care Provider Harriet lao 06-15-2014 influenza, seasonal, injectable Harley Thacker COPY SUPERVISOR-FURNITURE DECALS INSPECTOR Work Phone: [facility] 06-15-2014 influenza virus vacc ine, unspecified formulation Harley Thacker COPY SUPERVISOR-FURNITURE DECALS INSPECTOR Work Phone: [facility] 09-03-2009 diphtheria and tetan us toxoids, adsorbed for pediatric use Harley Thacker COPY SUPERVISOR-FURNITURE DECALS INSPECTOR Work Phone: [facility] 06-10-2009 meningococcal polysaccharide (groups A, C, Y and W-135) diphtheria toxoid conjugate vaccine (MCV4P) [facility] 06-10-2009 tetanus toxoid, redu iam diphtheria toxoid, and acellular pertussis vaccine, adsorbed [facility] 06-09-2009 influenza virus vacc ine, whole virus Harley Thacker COPY SUPERVISOR-FURNITURE DECALS INSPECTOR Work Phone: [facility] 06-09-2009 influenza, seasonal, injectable [facility] 06-15-2005 influenza virus vacc ine, whole virus Harley Thacker COPY SUPERVISOR-FURNITURE DECALS INSPECTOR Work Phone: [facility] 06-15-2005 influenza, seasonal, injectable [facility] 12-14-2003 hepatitis B vaccine, pediatric or pediatric/adolescent dosage [facility] 12-14-2003 hepatitis B vaccine, unspecified formulation Sharif Joseph MD Work Phone: [facility] 08-26-2003 hepatitis B vaccine, pediatric or pediatric/adolescent dosage [facility] 08-26-2003 hepatitis B vaccine, unspecified formulation Sharif Joseph MD Work Phone: [facility] 03-30-2003 hepatitis B vaccine, pediatric or pediatric/adolescent dosage [facility] 03-30-2003 hepatitis B vaccine, unspecified formulation Sharif Joseph MD Work Phone: [facility] 02-22-1996 diphtheria, tetanus toxoids and acellular pertussis vaccine [facility] 02-22-1996 diphtheria, tetanus toxoids and acellular pertussis vaccine, unspecified formulation Harley Thacker COPY SUPERVISOR-FURNITURE DECALS INSPECTOR Work Phone: [facility] 12-24-1995 measles, mumps and rubella virus vaccine [facility] 12-24-1995 poliovirus vaccine, inactivated [facility] 12-24-1995 trivalent poliovirus vaccine, live, oral Harley Thacker COPY SUPERVISOR-FURNITURE DECALS INSPECTOR Work Phone: [facility] 05-14-1991 diphtheria, tetanus toxoids and acellular pertussis vaccine [facility] 05-14-1991 diphtheria, tetanus toxoids and pertussis vaccine Harley Thacker COPY SUPERVISOR-FURNITURE DECALS INSPECTOR Work Phone: [facility] 05-14-1991 haemophilus influenz ae type b vaccine, conjugate unspecified formulation [facility] 05-14-1991 poliovirus vaccine, inactivated [facility] 05-14-1991 trivalent poliovirus vaccine, live, oral Harley Thacker COPY SUPERVISOR-FURNITURE DECALS INSPECTOR Work Phone: [facility] 02-26-1991 measles, mumps and rubella virus vaccine [facility] 12-18-1990 haemophilus influenz ae type b vaccine, conjugate unspecified formulation [facility] 07-01-1990 diphtheria, tetanus toxoids and acellular pertussis vaccine [facility] 07-01-1990 diphtheria, tetanus toxoids and pertussis vaccine Harley Thacker COPY SUPERVISOR-FURNITURE DECALS INSPECTOR Work Phone: [facility] 04-29-1990 diphtheria, tetanus toxoids and acellular pertussis vaccine [facility] 04-29-1990 diphtheria, tetanus toxoids and pertussis vaccine Harley Thacker COPY SUPERVISOR-FURNITURE DECALS INSPECTOR Work Phone: [facility] 04-29-1990 poliovirus vaccine, inactivated [facility] 04-29-1990 trivalent poliovirus vaccine, live, oral Harley Thacker COPY SUPERVISOR-FURNITURE DECALS INSPECTOR Work Phone: [facility] 02-27-1990 diphtheria, tetanus toxoids and acellular pertussis vaccine [facility] 02-27-1990 diphtheria, tetanus toxoids and pertussis vaccine Harley Thacker COPY SUPERVISOR-FURNITURE DECALS INSPECTOR Work Phone: [facility] 02-27-1990 poliovirus vaccine, inactivated [facility] 02-27-1990 trivalent poliovirus vaccine, live, oral Harley Thacker COPY SUPERVISOR-FURNITURE DECALS INSPECTOR Work Phone: [facility] Payers Date Payer Category Payer Medicaid [place] [id number] 2020-Present [id number] 2019 Medicaid [id number] 2019 Medicare MEDICARE MEDICAR E PART A & B [id number] 2019-Present [place] [id number] 2019 Medicare [id number] [id number] [id number] 1989 Unknown [id number] 2.16.840.1.461010.3.579.2.903 1989 Unknown [id number] 2.16.840.1.675399.3.579.2.593 1989 Unknown [id number] 2.16.840.1.414443.3.579.2.593 1989 Unknown [id number] 2.16.840.1.703974.3.579.2.593 1989 Unknown [id number] 2.16.840.1.229307.3.579.2.593 1989 Unknown [id number] 2.16.840.1.228481.3.579.2.593 1989 Unknown [id number] 2.16.840.1.619961.3.579.2.593 1989 Unknown [id number] 2.16.840.1.814243.3.579.2.593 1989 Unknown [id number] 2.16.840.1.597580.3.579.2.593 1989 Unknown [id number] 2.16.840.1.132360.3.579.2.593 1989 Unknown [id number] 2.16.840.1.798705.3.579.2.593 1989 Unknown [id number] 2.16.840.1.228459.3.579.2.593 1989 Unknown [id number] 2.16.840.1.032922.3.579.2.593 1989 Unknown [id number] 2.16.840.1.727383.3.579.2.1286 1989 Unknown [id number] 2.16.840.1.044272.3.579.2.1286 1989 Unknown [id number] 2.16.840.1.860642.3.579.2.1286 16-1990 Unknown [id number] 2.16.840.1.334205.3.579.2.1285 1989 Unknown [id number] 2.16.840.1.011859.3.579.2.1285 1989 Unknown [id number] 2.16.840.1.861387.3.579.2.1285 1989 Unknown [id number] 2.16.840.1.704611.3.579.2.1285 1989 Unknown [id number] 2.16.840.1.641786.3.579.2.1285 1989 Unknown [id number] 2.16.840.1.491728.3.579.2.1285 1989 Unknown [id number] 2.16.840.1.276026.3.579.2.1285 1989 Unknown [id number] 2.16.840.1.016573.3.579.2.1285 1989 Unknown [id number] 2.16.840.1.099249.3.579.2.1285 1989 Unknown [id number] 2.16.840.1.263695.3.579.2.1285 1989 Unknown [id number] 2.16.840.1.798369.3.579.2.1285 1989 Unknown [id number] 2.16.840.1.714531.3.579.2.1285 1989 Unknown [id number] 2.16.840.1.935160.3.579.2.1285 1989 Unknown [id number] 2.16.840.1.553158.3.579.2. 1989 Unknown [id number] 2.16.840.1.854261.3.579.2. 1989 Unknown [id number] 2.16.840.1.766665.3.579.2.196 1989 Unknown [id number] 2.16.840.1.992952.3.579.2. 1989 Unknown [id number] 2.16.840.1.982569.3.579.2.9 1989 Unknown [id number] 2.16.840.1.439811.3.579.2.1258 1989 Unknown [id number] 2.16.840.1.428801.3.579.2.1258 1989 Unknown [id number] 2..840.1.789569.3.579.2.1285 1989 Unknown [id number] 2..840.1.365577.3.579.2.1285 1989 Unknown [id number] 2.840.1.027761.3.579.2.1285 1989 Unknown [id number] 2.840.1.975607.3.579.2.1285 1989 Unknown [id number] 2.840.1.213163.3.579.2.1285 1989 Unknown [id number] 2.840.1.178604.3.579.2.1285 1989 Unknown [id number] 2.840.1.981023.3.579.2.1285 1989 Unknown [id number] 2.840.1.739345.3.579.2.1285 1989 Unknown [id number] 2.16.840.1.531021.3.579.2.1285 1989 Unknown [id number] 2.16.840.1.481368.3.579.2.1285 1989 Unknown [id number] 2.16.840.1.287506.3.579.2.1285 1989 Unknown [id number] 1990 Unknown [id number] 1990 Unknown [id number] 1989 Unknown [id number] 1989 Unknown [id number] 1989 Unknown [id number] 1960 Medicaid [id number] 1960 Medicare [id number] 1960 Self-pay [id number] Social History Date Type Detail Facility Start: 08-02-2020 End: 11-27-2023 Tobacco smoking status NHIS Former smoker [facility] Start: 08-02-2020 End: 11-29-2023 Cigarettes smoked current (pack per day) - Reported [facility] Start: 08-02-2020 End: 11-27-2023 Tobacco use and exposure Never used [facility] Start: 08-02-2020 Alcohol intake Lifetime non-drinker (finding) [facility] Start: 06-03-2020 History SDOH Alcohol Frequency 1 [facility] Start: 1990 Sex Assigned At Not on file [facility] Exposure to SARS-CoV -2 (event) Not sure [facility] Start: 1990 Sex Assigned At Female [facility] End: 09-03-2013 History of tobacco use Current smoker [facility] End: 09-03-2013 History of tobacco use Cigarette Smoker [facility] Start: 10-13-2023 End: 04-18-2024 Alcohol intake Current non-drinker of alcohol (finding) [facility] Start: 10-08-2023 End: 11-29-2023 Tobacco use panel [facility] How hard is it for y ou to pay for the very basics like food, housing, medical care, and heating Somewhat hard [facility] Adolescent depressio n screening assessment 14 [facility] Start: 11-11-2022 Gender identity Identifies as female gender (finding) [facility] Start: 11-11-2022 Sexual orientation Heterosexual (finding) [facility] History of tobacco use Passive smoker [facility] Goals Date Patient Goal Desired Activity [...] no message could be left. JUANITA James [facility] 04-22-2024 Miscellaneous Notes Unable To Reach Patient Patient appears on the [employer] report for a PHQ-9 score of 23 and a NCCN score of 10. SW called Patient to follow up. Her VM was full, no message could be left. JUANITA James documented in this encounter [facility] 04-18-2024 Instructions Sharif Joseph MD - 04/18/2024 11:44 AM EDT RTC in 6 months Labs same day Continue Arixtra 10mg daily Continue Foltx or folic acid supplements Continue iron tablets (try 2 days in a row then 1 day off and then 2 days again. (4 days each week) documented in this encounter [facility] 04-18-2024 History of Present illness Narrative Images from the original note were not included. NAME: Margaret Prieto [facility] NO.: [id number] DATE OF SERVICE: April 18, 2024 (Jonelle) Some elements in this clinic note that are critical to medical decision making have been carefully reviewed and included from a prior clinic note dated: December 20, 2023 (Jonelle) Referring Provider: Harley Thacker APRN-FURNITURE DECALS INSPECTOR Additional Clinicians involved in Margaret Prieto's care: [...] including ECHO from 11/13/2022 and 11/23/2023 from [facility] which states -Echogenic density seen wihin the [...] to consider starting Humira for Hiradenitis from [facility]. A CTA of the chest from [...] which included preparing to see the patient, nodt-an-cfhp patient care, completing clinical documentation, obtaining and/or reviewing separately obtained history, performing a medically appropriate examination, counseling and educating the patient/family/caregiver, ordering medications, tests, or procedures, independently interpreting results (not separately reported), communicating results to the patient/family/caregiver, and care coordination (not separately reported). Sharif Joseph MD, CPE Hematology and Oncology Services Provided at: [facility], [place], [place] Scribe Attestation: This note was scribed [...] under my direction. CC: Harley Thacker [address] [id number] documented in this encounter [facility] 04-18-2024 Note HNO ID: [id number] Author: SHARIF JOSEPH MD Service: ? Author Type: Physician Type: Progress Notes Filed: 04/19/2024 14:40 Note Text: NAME: Margaret Prieto CLINIC NO.: [id number] DATE OF SERVICE: April 18, 2024 (Jonelle) Some elements in this clinic note that are critical to medical decision making have been carefully reviewed and included from a prior clinic note dated: December 20, 2023 (Jonelle) Referring Provider: Harley Thacker APRN-FURNITURE DECALS INSPECTOR Additional Clinicians involved in Margaret Prieto's care: [...] taking oral medicati (more content not included)... [facility] 04-10-2024 Telephone encounter Note Letter reviewed, signed and faxed to Dr Dickinson's office Bello Sue RN [facility] 04-10-2024 Miscellaneous Notes Letter reviewed, signed [...] Bello Sue RN documented in this encounter [facility] 04-08-2024 Telephone encounter Note Letter of [...] and sign, if agreeable. Bello Sue RN [facility] 04-02-2024 Telephone encounter Note Leonard: Please review and advise (Pt lab/OV 04/18/24) Bello Sue RN [facility] 04-02-2024 Miscellaneous Notes Leonard: Please review [...] Also i recently had labs done at [facility] and [facility] in [place] my thyroid is really off they did an ultrasound of my thyroid as well that hasnt come back yet. Top 2 are [facility] the rest is [facility] [place]: Please obtain labs ([facility]) and US (TB) for Leonard to review. Bello Sue RN documented in this encounter [facility] 04-02-2024 Telephone encounter Note Records are in. [facility] records pulled through Care Everywhere. [facility] 04-02-2024 Telephone encounter Note So i was talking to someone who has my disorder hs and she told me that there are several people who have this disease and they test positive for mgus should i be tested she was tested through her oncologist. Also i recently had labs done at [facility] and [facility] in [place] my thyroid is really off they did an ultrasound of my thyroid as well that hasnt come back yet. Top 2 are [facility] the rest is [facility] [place]: Please obtain labs ([facility]) and US (TB) for Leonard to review. Bello Sue RN [facility] 12-20-2023 Instructions Harley Toro - 12/20/2023 10:37 AM EDT RTC in 3 months Labs same day Start Arixtra 10mg daily Resume Foltx Resume iron tablets documented in this encounter [facility] 12-20-2023 History of Present illness Narrative Images from the original note were not included. NAME: Margaret Prieto [facility] NO.: [id number] DATE OF SERVICE: December 20, 2023 (Jonelle) Some elements in this clinic note that are critical to medical decision making have been carefully reviewed and included from a prior clinic note dated: November 29, 2023 (Jonelle) Referring Provider: Harley Thacker APRN-FURNITURE DECALS INSPECTOR Additional Clinicians involved in Margaret Prieto's care: [...] including ECHO from 11/13/2022 and 11/23/2023 from [facility] which states -Echogenic density seen wihin the [...] to consider starting Humira for Hiradenitis from [facility]. A CTA of the chest from [...] which included preparing to see the patient, oooa-ep-ztsm patient care, completing clinical documentation, obtaining and/or reviewing separately obtained history, performing a medically appropriate examination, counseling and educating the patient/family/caregiver, ordering medications, tests, or procedures, independently interpreting results (not separately reported), communicating results to the patient/family/caregiver, and care coordination (not separately reported). Sharif Joseph MD, CPE Hematology and Oncology Services Provided at: [place], [place] Scribe Attestation: This note was scribed [...] under my direction. CC: Harley Thacker [address] [address] documented in this encounter [facility] 12-20-2023 Note HNO ID: [id number] Author: SHARIF JOSEPH MD Service: ? Author Type: Physician Type: Progress Notes Filed: 12/22/2023 06:44 Note Text: NAME: Margaret Prieto [facility] NO.: [id number] DATE OF SERVICE: December 20, 2023 (Jonelle) Some elements in this clinic note that are critical to medical decision making have been carefully reviewed and included from a prior clinic note dated: November 29, 2023 (Jonelle) Referring Provider: Harley Thacker APRN-FURNITURE DECALS INSPECTOR Additional Clinicians involved in Margaret Prieto's care: [...] including ECHO from 11/13/2022 and 11/23/2023 from [facility] which states -Echogenic density seen wihin the right atrium, likely represents a prominent Eustachian valve (more content not included)... [facility] 12-07-2023 History of Present illness Narrative [...] by cardiology and hematology. She followed with [facility] hematology and reports although she was [...] nursing note reviewed. Exam conducted with a java j2ee software engineer present (susana BARRIOS). Constitutional: General: She is [...] complication, without long-term current use of insulin ([facility]) - Hemoglobin A1c; Future - Diabetic foot exam performed Encounter for Papanicolaou smear for cervical cancer screening - Pap Smear; Future - High risk HPV w/yoshi; Future Hidradenitis suppurativa CHERRI Pelaez 12/07/23 1212 documented in this encounter [facility] 12-05-2023 Miscellaneous Notes Preoperative Education Checklist- General Surgery date: 12/10/23 Surgery time: 1230 Arrival time: 1030 1. Bring a photo ID and your insurance card with you the day of surgery. You will check in at the main lobby of the [facility]- registration desk is straight ahead as soon as you walk in. Tell them you are here for surgery. 2. If you have a Living Will/Durable Power of Sales Route Driver Helper for Health Care that is not [...] after you have bathed. 5. NO nail bhutanese/acrylic on at least one finger. If you are having a hand, wrist or foot surgery then all nail bhutanese and artificial/acrylic nails must be removed from [...] please call the Preadmission Testing office at [phone], Mon.-Fri. 7 a.m.-3 p.m. Leave a voicemail if needed. Pre-Surgery Instructions: Medication Instructions esomeprazole (NexIUM) 20 mg packet Take last dose day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 [...] Rooming Social History Born/Raised:Margaret was born [place] and raised in [place] by her biological parents. Her mother is now and her father is in Custodial for 10-15 years related to sexual assault of her now 10 year old daughter. He is located in [place], [place] serving his sentence. Siblings: brother; sister [...] her boyfriends mother or her brother Ethnicity/Culture: Latter-Day/Spiritual Preferences: Pentecostalism Legal History: Client denies Past Medical History: Diagnosis Date Anxiety Arthritis Bipolar affective disorder ([facility]) Depression DVT (deep venous thrombosis) ([facility]) Factor V deficiency ([facility]) MTHFR LEE (headache) Shalom's disease Hypercholesteremia Hypertension Hypothyroidism MTHFR mutation Psychiatric problem PTSD (post-traumatic stress disorder) Pulmonary emboli ([facility]) Pulmonary embolism ([facility]) Thyroid disease Family History Problem [...] Patient was given the phone numbers of [facility] (Rescue crisis) [phone] and National Suicide Hotline: 163. The client and I reviewed several treatment [...] of inattention. Goals, Objectives & Interventions Anxiety Lathe Set Up Operator Goals: Reduce overall frequency, intensity, and duration [...] by Sophia; Treating KATHARINE by Fabiana). Mary Lathe Set Up Operator Goals: Reduce psychic energy and return to [...] good sleep hygiene. Mary Therapeutic Interventions: PTSD Lathe Set Up Operator Goals: Reduce the negative impact that the [...] other practitioners CHERRI MARTINEZ APRN-CNP 10/19/23 1125 [facility] 10-08-2023 History of Present illness Narrative Subjective Patient ID: Margaret Prieto is a 32 y.o. female. REBECA Robles presents to the office to establish care. She was previously a patient at [facility]. Margaret admits that she has not been taking any of her medications except for omeprazole, in which she just restarted last month, and has been taking it twice daily. She reports she has been having vomiting daily for months. She reports she was on Carafate at one point in the past. States she had an endoscopy done years ago in [place]. Margaret states she has not been taking [...] in her life. Her father is in long-term. She is now trying to take better [...] in her life. Her father is in long-term. She is now trying to take better [...] imitrex, none of these worked. Following with [place] [facility] for boils, and back pain, DDD, pinched nerves hips, neuropathy.- Jackpot- states she only takes it if absolutely [...] orders for this visit: PE (pulmonary thromboembolism) ([facility]) History of pulmonary embolism - [facility] [place], [place]; Future History of DVT (deep vein thrombosis) - [facility] [place], [place]; Future Factor 5 Leiden mutation, heterozygous ([facility]) - [facility] [place]; Future 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 [place], [place]; Future Hidradenitis suppurativa - Ambulatory referral to Dermatology; Future Migraine without aura and without status migrainosus, not intractable - [facility] ODT 75 mg tablet,disintegrating; Dissolve 75 mg [...] CHERRI Pelaez 10/13/232021 documented in this encounter [facility] 11-02-2022 Note CONSULTATION CONSULTATION DATE: 11/02/2022 [...] with that as well. Other medications include Jackpot 5/325 b.i.d., sumatriptan, gabapentin 300 mg b.i.d. [...] pain relief. We will continue with her Jackpot 5/325 b.i.d. Education was given regarding stretches and exercises, and she is to continue working with her PCP on a rheumatology workup. We will see her in three months' time to maintain her pain medications. Patient agrees with this plan. [facility] 09-28-2022 Note CONSULTATION CONSULTATION DATE: 09/28/2022 HISTORY [...] medications include baclofen 10 mg q.h.s., gabapentin, Jackpot 5/325 b.i.d., duloxetine, Remicade and Xarelto. The [...] and all question were answered today. [facility] 06-05-2022 Note PROCEDURE: XR HIP RT 2 3V W PELVIS COMPARISON: None. HISTORY: Pain in right hip joint FINDINGS: BONES:No fracture, acute abnormality, or significant arthropathy. SOFT TISSUES:Negative. No visible soft tissue swelling. EFFUSION:None visible. OTHER: Negative. IMPRESSION: No acute abnormality Electronically authenticated by: KATYA BECK Date: 2022-06-05 16:27 [facility] 06-01-2022 Note CONSULTATION CONSULTATION DATE: 06/01/2022 HISTORY [...] appointment being tomorrow. She is on Rexulti, Jackpot 5/325 b.i.d., gabapentin 300 mg b.i.d., Cymbalta, [...] procedure. She agrees to move forward. [facility] 03-01-2022 Note CONSULTATION CONSULTATION DATE: 03/02/2022 This is a 31-year-old female returning to the clinic for a 3-month follow-up for her chronic pain syndrome and chronic lower back pain and bilateral hips. The patient does have hidradenitis suppurativia and is currently under the care of Dr. Carlson in the [facility] in [place]. She has been having increasing amounts of boils which are causing a lot of pain. He has recently removed four wounds and has one that is deeply patched. It was found that she had a massive infection and is currently on Levaquin and Flagyl. Dr. Carlson has placed her on Jackpot 5/325 b.i.d. which is the same medication dose and frequency as our prescription. The patient has put our prescription on hold and is using the wound clinic only at this time. She is currently working with a health data administrator in [place] and considering Remicade infusions. The patient does [...] which is beneficial. In addition to the Jackpot, she takes gabapentin 300 mg b.i.d., Baclofen [...] her to discuss with Dr. Carlson at [place] regarding continuing the Jackpot for her. We will see her in three months' time unless otherwise indicated, or if she prefers to stick with Dr. Carlson at this time, that is fine as well. The patient agrees with the plan of care. [facility] Signed and Approved by: ACE CERVANTES . 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 ([facility]) Bipolar 1 disorder ([facility]) Insulin resistance Other abnormal glucose History of prediabetes History of insulin resistance Gastroesophageal reflux disease, unspecified whether esophagitis present Nausea and vomiting, unspecified vomiting type Hidradenitis suppurativa Hidradenitis Migraine without aura and without status migrainosus, not intractable Prediabetes Other abnormal glucose [facility] Generalized anxiety disorder- Primary Bipolar depression ([facility]) Bipolar I disorder, most recent episode (or current) depressed, unspecified Post traumatic stress disorder (PTSD) Attention deficit hyperactivity disorder, combined type Attention deficit disorder with hyperactivity [facility] Post traumatic stress disorder (PTSD)- Primary [facility] Diagnosis Gastroesophageal reflux disease, unspecified whether esophagitis present- Primary Nausea and vomiting, unspecified vomiting type Diarrhea, unspecified type Morbid obesity ([facility]) Morbid obesity Preop examination- Primary Unspecified pre-operative examination MTHFR (methylene THF reductase) deficiency and homocystinuria ([facility]) Disturbances of sulphur-bearing amino-acid metabolism BMI 60.0-69.9, adult ([facility]) Hypertension, unspecified type Blood clotting disorder ([facility]) Other and unspecified coagulation defects [facility] Diagnosis Preop examination- Primary Unspecified pre-operative examination MTHFR (methylene THF reductase) deficiency and homocystinuria ([facility]) Disturbances of sulphur-bearing amino-acid metabolism BMI 60.0-69.9, adult ([facility]) Hypertension, unspecified type Blood clotting disorder ([facility]) Other and unspecified coagulation defects Preop examination Unspecified pre-operative examination MTHFR (methylene THF reductase) deficiency and homocystinuria ([facility]) Disturbances of sulphur-bearing amino-acid metabolism BMI 60.0-69.9, adult ([facility]) Hypertension, unspecified type [facility] Diagnosis Preoperative clearance- Primary Unspecified pre-operative examination Abnormal echocardiogram Nonspecific (abnormal) findings on radiological and other examination of other intrathoracic organs History of DVT (deep vein thrombosis) History of pulmonary embolism Personal history of venous thrombosis and embolism Factor 5 Leiden mutation, heterozygous ([facility]) 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 ([facility]) Chest discomfort Other chest pain Shortness of breath Atrial mass Swelling, mass, or lump in chest Gastroesophageal reflux disease, unspecified whether esophagitis present [facility] Diagnosis Post traumatic stress disorder (PTSD)- Primary Generalized anxiety disorder [facility]* Diagnosis Bipolar depression ([facility])- Primary Bipolar I disorder, most recent episode (or current) depressed, unspecified Post traumatic stress disorder (PTSD) Generalized anxiety disorder Attention deficit hyperactivity disorder, combined type Attention deficit disorder with hyperactivity [facility]* Diagnosis Generalized anxiety disorder- Primary [facility]* Diagnosis Essential hypertension- Primary Unspecified essential hypertension [facility]* Diagnosis Factor V Leiden (HCC)- Primary Primary hypercoagulable state Gastrointestinal hemorrhage, unspecified gastrointestinal hemorrhage type Iron deficiency anemia, unspecified iron deficiency anemia type MTHFR mutation Disturbances of sulphur-bearing amino-acid metabolism Primary hypercoagulable state (HCC) Primary hypercoagulable state History of pulmonary embolism Personal history of pulmonary embolism [facility] Wellness examination- Primary Shalom's disease Chronic lymphocytic thyroiditis Controlled type 2 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 complication, without long-term current use of insulin ([facility]) Encounter for Papanicolaou smear for cervical cancer screening Hidradenitis suppurativa Hidradenitis [facility] Diagnosis Primary hypercoagulable state (HCC)- Primary Primary hypercoagulable state Factor V Leiden (HCC) Primary hypercoagulable state MTHFR mutation Disturbances of sulphur-bearing amino-acid metabolism Iron deficiency anemia, unspecified iron deficiency anemia type 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 [facility]* Diagnosis Primary hypercoagulable state (HCC)- Primary Primary hypercoagulable state MTHFR mutation Disturbances of sulphur-bearing amino-acid metabolism Factor V Leiden (HCC) Primary hypercoagulable state Iron deficiency anemia, unspecified iron deficiency anemia type [facility] Attachments The following attachments cannot be sent through Care Everywhere. * Bleeding Precautions (Polish) [facility]ructionsNot on file documented in this encounterPro[facility] SystemInstructionsNot on file documented in this encounterProRuss[facility] SystemInstructionsNot on file documented in this [facility]Pro[facility] SystemInstructionsNot on file documented in this encounterProFort [facility] SystemInstructionsNot on file documented in this encounterProFort [facility] SystemInstructionsNot on file documented in this encounterProRuss[facility]x SystemInstructionsNot on file documented in this encounterProRuss[facility] Evirx SystemInstructionsNot on file documented in this encounterProFort [facility] SystemInstructionsNot on file documented in this encounterProFort [facility] SystemInstructionsNot on file documented in this encounterProRussell [facility] Evirx SystemInstructionsNot on file documented in this encounterProFort [facility] SystemInstructionsNot on file [facility] * Patient Instructions* Corine Best MA - 08/02/2020 1:49 PM EST YOU DO NOT HAVE LUPUS START CPAP LOSE WEIGHT TAKE VITAMIN D3 1,000 UNITS DAILY documented in this encounter History of Present Illness * Santiago Shell MD - 08/02/2020 1:32 PM EST I had the pleasure of seeing Margaret Prieto in consultation at [facility] [address] [place] [phone] for evaluation of lupus Elizabeth Terrell MD;Elizabeth [...] really depressed about the situation. She gets [employer] on a as needed basis for pain.. [...] Depression Edema External otitis Factor V deficiency ([facility]) Factor V Leiden mutation ([facility]) GERD (gastroesophageal reflux disease) Shalom's disease Hidradenitis Hidradenitis suppurativa History of DVT (deep vein thrombosis) Hypercholesteremia Hypertension Morbid obesity with BMI of 50.0-59.9, adult (HCC) Osteoarthritis Palpitations Perineal abscess Pilonidal cyst Pneumonia Pulmonary embolism ([facility]) Sebaceous cyst Shortness of breath Skin ulcer [...] SSA SSB antibody negative Qureshi antibody negative, DISTRIBUTION ENGINEERING TECHNOLOGIST antibody negative, antihistone antibodies borderline positive at [...] Rheumatology Note: This dictation was generated using monEchelle voice recognition software. Please excuse any grammatical [...] FoundDocuments on File Type Date Recorded Patient Churn Operator Expl anation Advance Directives and Tiffanie hickey [...] without status migrainosus, not intractable Harley Thacker, COPY SUPERVISOR-FURNITURE DECALS INSPECTOR [address] [place] [phone] Referral ID Status Reason Start Date Expiration Date Visits Re quested Visits Authorized [id number] Closed 1 1 Specialty Diagnoses / Procedures Referred By Contac t Referred To Contact Dermatology Diagnoses Hidradenitis suppurativa Harley Thacker [facility] [address] [place] [phone] Stephani Lucas MD [address], [address] [address] Referral ID Status Reason Start Date Expiration Date Visits Requested Visits Authorized [id number] Pending Review Specialty Services Required 10/08/2023 10/07/2024 1 1 Specialty Diagnoses / Procedures Referred By Contac t Referred To Contact General Surgery Diagnoses Gastroesophageal reflux disease, unspecified whether esophagitis present Nausea and vomiting, unspecified vomiting type ThackerHarley hinton, [facility] [address] [place] [phone] [facility] Grillis Stuart [address] [place] [address] Referral ID Status Reason Start Date Expiration Date Visits Requested Visits Authorized [id number] Authorized Specialty Services Required 10/08/2023 10/07/2024 1 1 Specialty Diagnoses / Procedures Referred By Contac t Referred To Contact Psychiatry Diagnoses Bipolar 1 disorder ([facility]) Thacker, Harley, [facility] [address] [place] [phone] Yashira Mi, [facility] [address] [facility] [address] [place] [address] Referral ID Status Reason Start Date Expiration Date Visits Requested Visits Authorized [id number] Pending Review Specialty Services Required 10/08/2023 10/07/2024 1 1 Specialty Diagnoses / Procedures Referred By Contac t Referred To Contact Medical Oncology / Hematology and Oncology Diagnoses History of pulmonary embolism History of DVT (deep vein thrombosis) Factor 5 Leiden mutation, heterozygous ([facility]) 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) Uyen ThackerANDREW goff-FURNITURE DECALS INSPECTOR [address] [place] [phone] [facility] [address] [facility] [place] [address] Referral ID Status Reason Start Date Expiration Date Visits Requested Visits Authorized [id number] Pending Review Specialty Services Required 10/08/2023 10/07/2024 1 1 Specialty Diagnoses / Procedures Referred By Contac t Referred To Contact Diagnoses Preop examination MTHFR (methylene THF reductase) deficiency and homocystinuria ([facility]-HCC) BMI 60.0-69.9, adult ([facility]-HCC) Hypertension, unspecified type Procedures ECG 12 lead Katya Denise MD [address] [place] [address] Referral ID Status Reason Start Date Expiration Date V isits Requested Visits Authorized [id number] Pending Review 11/07/2023 11/06/2024 1 1 Specialty Diagnoses / Procedures Referred By Contac t Referred To Contact Radiology Diagnoses Abnormal echocardiogram History of DVT (deep vein thrombosis) History of pulmonary embolism Factor 5 Leiden mutation, heterozygous ([facility]) 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) Chest discomfort Shortness of breath Atrial mass Procedures CT angiogram chest Harley Thacker APRN-FURNITURE DECALS INSPECTOR [address] [place] [phone] Referral ID Status Reason Start Date Expiration Date V isits Requested Visits Authorized [id number] Pending Review 11/14/2023 11/13/2024 1 1 Specialty Diagnoses / Procedures Referred By Contac t Referred To Contact Hematology Diagnoses History of DVT (deep vein thrombosis) History of pulmonary embolism Factor 5 Leiden mutation, heterozygous ([facility]) 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 ([facility]) Harley Thacker APRN-FURNITURE DECALS INSPECTOR [address] [place] [phone] Sharif Joseph MD [address] [place] [address] [place] [address] Referral ID Status Reason Start Date Expiration Date Visits Requested Visits Authorized [id number] Pending Review Specialty Services Required 11/14/2023 11/13/2024 1 1 Specialty Diagnoses / Procedures Referred By Contac t Referred To Contact Diagnoses Preoperative clearance Abnormal echocardiogram History of pulmonary embolism Atrial mass Procedures Echo complete W/O contrast Harley Thacker APRN-FURNITURE DECALS INSPECTOR [address] [place] [phone] [facility] [address] [place] [address] Phone: [phone] Referral ID Status Reason Start Date Expiration Date V isits Requested Visits Authorized [id number] Pending Review 11/14/2023 11/13/2024 1 1 Additional Source Comments Reason for Visit (unrecogniz ed section and content) Reason Comments Consult LUPUS Status Reason Specialty Diagnoses / Procedures Referred By Contact Referred To Contact Closed Rheumatology Diagnoses Lupus ([facility]) Elizabeth Terrell MD [address] [facility] [place] [address] [place] [address] Santiago Shell MD [address] [place] [phone] Reason Comments Establish Care Reason Comments New Patient Specialty Diagnoses / Procedures Referred By Contac t Referred To Contact Psychiatry Diagnoses Bipolar 1 disorder ([facility]) Harley Thacker APRN-FURNITURE DECALS INSPECTOR [address] [place] [phone] Yashira Mi COPY SUPERVISOR-FURNITURE DECALS INSPECTOR [address] [facility] [address] [place] [address] [place] [address] Referral ID Status Reason Start Date Expiration Date Visits Requested Visits Authorized [id number] Pending Review Specialty Services Required 10/08/2023 10/07/2024 1 1 Reason Onset Date Comments Med Refill 10/23/2023 Reason Comments Heartburn GERD, vomiting, diar luis, blood in stool, nausea, referred by Harley Thacker CNP Specialty Diagnoses / Procedures Referred By Toyin arrieta Referred To Contact General Surgery Diagnoses Gastroesophageal reflux disease, unspecified whether esophagitis present Nausea and vomiting, unspecified vomiting type Harley Thacker APRN-DAVID [address] [place] [address], [place] [address] [facility] Grillis Stuart [address] [place] [address] Referral ID Status Reason Start Date Expiration Date V isits Requested Visits Authorized [id number] Closed Specialty Services Required 10/08/2023 10/07/2024 1 [...] section and content) DATE CREATED AUTHOR 08/02/2020 [facility] DATE CREATED AUTHOR AUTHOR'S ORGANIZ ATION 10/30/2021 [facility] DATE CREATED AUTHOR AUTHOR'S ORGANIZ ATION 12/07/2022 [facility] DATE CREATED AUTHOR AUTHOR'S ORGANIZ ATION 11/11/2023 [facility] DATE CREATED AUTHOR AUTHOR'S ORGANIZ ATION 12/25/2023 [facility] DATE CREATED AUTHOR AUTHOR'S ORGANIZ ATION 03/29/2024 [facility] DATE CREATED AUTHOR AUTHOR'S ORGANIZ ATION 04/10/2024 [facility] DATE CREATED AUTHOR AUTHOR'S ORGANIZ ATION 04/12/2024 [facility] DATE CREATED AUTHOR AUTHOR'S ORGANIZ ATION 04/12/2024 [facility] DATE CREATED AUTHOR AUTHOR'S ORGANIZ ATION 04/23/2024 [facility] Care Teams (unrecognized sec tion and [...] Flanagan PA-C Primary Care Provider Activ e Vice President Of Engineering Relationship Specialty Start Date End Date Harley Thacker APRNFURNITURE DECALS INSPECTOR [address] [place] [phone] PCP - General Nurse Practitioner 10/08/23 Nikolas Parrish CNP Nurse Practitioner Family Medicine 11/24/22 Vice President Of Engineering Relationship Specialty Start Date End Date Harley Thacker APRN-CNP [address] [place] [phone] PCP - General Nurse Practitioner 10/08/23 Nikolas Parrish CNP Nurse Practitioner Family Medicine 11/24/22 Vice President Of Engineering Relationship Specialty Start Date End Date Harley Thacker APRN-CNP [address] [place] [phone] PCP - General Nurse Practitioner 10/08/23 Nikolaskurt Parrish FURNITURE DECALS INSPECTOR Nurse Practitioner Family Medicine 11/24/22 Vice President Of Engineering Relationship Specialty Start Date End Date ThackerUyenHarley, [facility] [address] [place] [address], [place] [phone] PCP - General Nurse Practitioner 10/08/23 Nikolaskurt Acuna FURNITURE DECALS INSPECTOR Nurse Practitioner Family Medicine 11/24/22 Vice President Of Engineering Relationship Specialty Start Date End Date ThackerUyenHarley COP[facility]PER[facility] [address] [place] [address], [place] [phone] PCP - General Nurse Practitioner 10/08/23 Nikolaskurt Parrish FURNITURE DECALS INSPECTOR Nurse Practitioner Family Medicine 11/24/22 Vice President Of Engineering Relationship Specialty Start Date End Date Harley Thacker [facility] [address] [place] [address], [place] [phone] PCP - General Nurse Practitioner 10/08/23 [facility] 11/24/22 Vice President Of Engineering Relationship Specialty Start Date End Date Uyen Thackerndra COPY SUPERVISOR-[facility] [address] [place] [address], [place] [phone] PCP - General Nurse Practitioner 10/08/23 [facility] Nurse Practitioner Family Medicine 11/24/22 Vice President Of Engineering Relationship Specialty Start Date End Date Harley Thacker COPY SUPERVISOR-[facility] [address] [place] [phone] PCP - General Nurse Practitioner 10/08/23 Nikolaskurt Acunao FURNITURE DECALS INSPECTOR Nurse Practitioner Family Medicine 11/24/22 Vice President Of Engineering Relationship Specialty Start Date End Date Harley Thacker [facility] [address] [place] [address] [place] [phone] PCP - General Nurse Practitioner 10/08/23 Nikolas Parrish FURNITURE DECALS INSPECTOR Nurse Practitioner Family Medicine 11/24/22 Vice President Of Engineering Relationship Specialty Start Date End Date Thacker HarleyRICKYN-FURNITURE DECALS INSPECTOR [address] [place] [address], [place] [phone] PCP - General Nurse Practitioner 10/08/23 Nikolas Parrish FURNITURE DECALS INSPECTOR Nurse Practitioner Family Medicine 11/24/22 Vice President Of Engineering Relationship Specialty Start Date End Date ThackerHarley hinton [address] [address] PCP - General Family Medicine 11/16/23 Vice President Of Engineering Relationship Specialty Start Date End Date ThackerHarley APRN-[facility] [address] [place] [phone] PCP - General Nurse Practitioner 10/08/23 Nioklas Parrish FURNITURE DECALS INSPECTOR Nurse Practitioner Family Medicine 11/24/22 Vice President Of Engineering Relationship Specialty Start Date End Date Harley Thacker [address] [address] PCP - General Family Medicine 11/16/23 Vice President Of Engineering Relationship Specialty Start Date End Date Thacker Harley, COPY SUPERVISOR-FURNITURE DECALS INSPECTOR [address] [place] [phone] PCP - General Nurse Practitioner 10/08/23 Nikolas Parrish FURNITURE DECALS INSPECTOR Nurse Practitioner Family Medicine 11/24/22 Vice President Of Engineering Relationship Specialty Start Date End Date Harley Thacker APRN-FURNITURE DECALS INSPECTOR [address] [place] [phone] PCP - General Nurse Practitioner 10/08/23 Nikolas Parrish FURNITURE DECALS INSPECTOR Nurse Practitioner Family Medicine 11/24/22 Vice President Of Engineering Relationship Specialty Start Date End Date Uyen ThackerRICKY goffN-DAVID [address] [place] [phone] PCP - General Nurse Practitioner 10/08/23 Nikolas Parrish FURNITURE DECALS INSPECTOR Nurse Practitioner Family Medicine 11/24/22 Vice President Of Engineering Relationship Specialty Start Date End Date Harley Thacker [address] [phone] PCP - General Family Medicine 11/16/23 Vice President Of Engineering Relationship Specialty Start Date End Date Harley Thacker CNP PCP - General Family Medicine 11/16/23 Vice President Of Engineering Relationship Specialty Start Date End Date Harley Thacker CNP PCP - General Family Medicine 11/16/23 Vice President Of Engineering Relationship Specialty Start Date End Date Harley Thacker CNP PCP - General Family Medicine 11/16/23 Team Status: Inactive Member Role Status Dates Dannie Dickinson DO Attending Provider Active Start : April 08, 2024 End: April 08, 2024 Vice President Of Engineering Relationship Specialty Start Date End Date Harley Thacker CNP PCP - General Family Medicine 11/16/23 Vice President Of Engineering Relationship Specialty Start Date End Date Harley Thacker CNP PCP - General Family Medicine 11/16/23 Vice President Of Engineering Relationship Specialty Start Date End Date Harley [...] or prosecute any alcohol or drug abuse patient.[facility] the event this information is protected by the Federal Confidentiality of Alcohol and Drug Abuse Patient Records regulations: The Federal rules restrict any use of the information to criminally investigate or prosecute any alcohol or drug abuse patient.[facility] HospitalIn the event this information is protected by the Federal Confidentiality of Alcohol and Drug Abuse Patient Records regulations: The Federal rules restrict any use of the information to criminally investigate or prosecute any alcohol or drug abuse patient.[facility] HospitalIn the event this information is protected by the Federal Confidentiality of Alcohol and Drug Abuse Patient Records regulations: The Federal rules restrict any use of the information to criminally investigate or prosecute any alcohol or drug abuse patient.[facility] HospitalIn the event this information is protected by the Federal Confidentiality of Alcohol and Drug Abuse Patient Records regulations: The Federal rules restrict any use of the information to criminally investigate or prosecute any alcohol or drug abuse patient.[facility] HospitalIn the event this information is protected by the Federal Confidentiality of Alcohol and Drug Abuse Patient Records regulations: The Federal rules restrict any use of the information to criminally investigate or prosecute any alcohol or drug abuse patient.[facility] HospitalIn the event this information is protected by the Federal Confidentiality of Alcohol and Drug Abuse Patient Records regulations: The Federal rules restrict any use of the information to criminally investigate or prosecute any alcohol or drug abuse patient.[facility] HospitalIn the event this information is protected by the Federal Confidentiality of Alcohol and Drug Abuse Patient Records regulations: The Federal rules restrict any use of the information to criminally investigate or prosecute any alcohol or drug abuse patient.[facility] HospitalIn the event this information is protected by the Federal Confidentiality of Alcohol and Drug Abuse Patient Records regulations: The Federal rules restrict any use of the information to criminally investigate or prosecute any alcohol or drug abuse patient.[facility] HospitalIn the event this information is protected by the Federal Confidentiality of Alcohol and Drug Abuse Patient Records regulations: The Federal rules restrict any use of the information to criminally investigate or prosecute any alcohol or drug abuse patient.[facility] FOR RECORDS PERTAINING TO PATIENTS WHO [...] BE BASED ON THE PRIMARY CLINICAL RECORDS. [facility] [employer] [facility]. provides no warranty or guarantee of the accuracy or completeness of information in this document.
[2024-04-25 06:48] LABS: HCG Quantitative <1 mIU/mL
[2024-04-25 06:59] LABS: Basophils Absolute Auto 0.1 10^3/uL (0.0-0.1); Basophils Percent Auto 0.4 % (0.2-2.0); Eosinophils Absolute Auto 0.2 10^3/uL (0.0-0.7); Eosinophils Percent Auto 1.1 % (0.9-7.0); Hematocrit 43.2 % (36.0-48.0); Hemoglobin 13.7 g/dL (12.0-16.0); Immature Granulocytes Abs Auto 0.08 10^3/uL (0.00-0.03); Immature Granulocytes Pct Auto 0.5 % (0.0-0.5); Lymphocytes Absolute Auto 3.3 10^3/uL (1.2-3.8); Lymphocytes Percent Auto 19.7 % (20.5-60.0); Mean Corpuscular HGB Conc 31.7 g/dL (29.9-35.2); Mean Corpuscular Volume 85.2 fL (81.0-99.0); Mean Platelet Volume 8.6 fL (9.5-13.5); Monocytes Absolute Auto 1.1 10^3/uL (0.3-0.8); Monocytes Percent Auto 6.5 % (1.7-12.0); Neutrophils Percent Auto 71.8 % (43.0-75.0); Platelet Count 403 10^3/uL (150-450); Red Blood Count 5.07 10^6/uL (4.20-5.40); Red Cell Distribution Width 15.7 % (11.0-15.0); White Blood Count 16.7 10^3/uL (4.0-11.0)
[2024-04-25] MEDS: LACTATED RINGER'S SOLUTION 1,000 ML 50 ML IV (07:16)
[2024-04-25 07:38] LABS: Glucometer 110 mg/dL (74-106)
--- NOTE | 2024-04-25 07:42 | PC.NURSE ---
Dr Dickinson made aware of elevated WBC at 0730 this morning.
--- NOTE | 2024-04-25 08:31 | PM.ONB ---
Brief Operative Note Date of procedure: 04/25/24 Pre-op diagnosis general: menorrhagia Post-op diagnosis: same as pre-op Procedure: NAME OF PROCEDURE: [ ] Deonna endometrial ablation with hysteroscopy. PROCEDURE: The patient was taken back to the OR where she was prepped and draped in the normal sterile fashion after being placed in the dorsal lithotomy position, after being placed under general anesthesia without difficulty.? A weighted speculum was placed into the vagina. The anterior lip was grasped with a single tooth tenaculum. The patient was then sounded to approximated 8cm. The patient?s cervix was gently dilated using hegardilators. The hysteroscope was passed through the cervix into the uterus where both ostia were seen. No gross evidence of polyps, fibroids or malignancy. The cervical length was noted to be 4 cm. The total cavity length is 4cm.? The Deonna ablation apparatus was set to approximately 4cm in length. This was placed through the cervix and into the uterus. After the seal was tested, at that time the total ablation of 120 seconds was performed with the Deonna withoutdifficulty. All instruments were removed from the vagina. Excellent hemostasis noted.? Sponge and lap count correct times 2.? Patient taken to recovery in stable condition. Anesthesia: GETA Surgeon: Dannie Dickinson Estimated blood loss (mL): 5 Pathology: none sent Condition: stable Disposition: PACU Urinary Catheter Management Urinary Catheter Management Urethral: Cath placed during this visit: no
[2024-04-25] MEDS: LACTATED RINGER'S SOLUTION 1,000 ML 150 ML IV (08:58)
--- NOTE | 2024-04-25 09:00 | PC.NURSE ---
Peripad and chux changed for wetness and small amount of vaginal drainage.
--- NOTE | 2024-04-25 09:45 | PC.NURSE ---
Up to bathroom and voided clear yellow urine without difficultly; peripad dry
== END 2024-04-25 09:47 | disposition home or self-care (01) ==
PROVIDERS: Visit Provider Obstetrics & Gynecology
PROC: (CPT 952; 2024-04-25 07:30)
DX: N92.0 Excessive and frequent menstruation with regular cycle (principal); N93.9 Abnormal uterine and vaginal bleeding, unspecified; R10.2 Pelvic and perineal pain; Z87.891 Personal history of nicotine dependence; Z90.49 Acquired absence of other specified parts of digestive tract; E66.01 Morbid (severe) obesity due to excess calories; Z68.44 Body mass index [BMI] 60.0-69.9, adult; E11.9 Type 2 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 complications
CPT/HCPCS: 58563; 36415; 82948; 84702; 85025; J1100; J1885; J2250; J2405; J2704; J3010

== ENCOUNTER 2024-07-23 12:10 | Outpatient (OUT) | payer MEDICARE, MEDICAID, SELFPAY ==
--- NOTE | 2024-07-23 12:29 | P.CN_ITS ---
Consult Note: HPI Data of Consult Patient: known to practice within the last 3 years Consult date: 03/10/24 Requesting Physician: Brenda Gonzalez NP Primary Care Provider: Non-Staff Physician, MD Consult Narrative Reason for consult: low back, bilateral leg pain Narrative: 33yof who presents for assessment. continues to have worsening low back and bilateral leg pain and weakness. imaging reviewed, which is significant for multilevel stenosis, worst noted at l5-s1. continues to engage in a series of provider directed home exercises, which have not helped >6 weeks. uses Tylenol #3 gabapentin, flexeril. denies adverse med side effects. recent bilateral l5 SNRB providing mild to moderate ongoing relief. Patients functional score 87% however patient reports benefit from injections and medications. cc:: CC: Brenda Gonzalez NP Review of Systems ROS Status of ROS 10 or more systems reviewed and unremark able except as noted in history and below Musculoskeletal Reports: back pain, extremity pain and joint pain PFSH [facility] Medical History (Updated 04/25/24 @ 06:46 by Nanci Villa) Neck pain ?M54.2 - Cervicalgia (ICD-10) DDD (degenerative disc disease) Back pain ?M54.9 - Dorsalgia, unspecified (ICD-10) Factor V deficiency ?D68.2 - Hereditary deficiency of other clotting factors (ICD-10) Deep vein thrombosis ?I82.409 - Acute embolism and thrombosis of unspecified deep veins of unspecified lower extremity (ICD-10) Depression ?F32.A - Depression, unspecified (ICD-10) Panic attacks ?F41.0 - Panic disorder [episodic paroxysmal anxiety] (ICD-10) COVID-19 ?U07.1 - COVID-19 (ICD-10) Migraine ?G43.909 - Migraine, unspecified, not intractable, without status migrainosus (ICD-10) Atrial fibrillation ?I48.91 - Unspecified atrial fibrillation (ICD-10) PCOS (polycystic ovarian syndrome) ?E28.2 - Polycystic ovarian syndrome (ICD-10) 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 - Methylenetetrahydrofolate reductase deficiency (ICD-10) ?E72.11 - Homocystinuria (ICD-10) Pelvic pain ?R10.2 - Pelvic and perineal pain (ICD-10) Abnormal uterine bleeding (AUB) ?N93.9 - Abnormal uterine and vaginal bleeding, unspecified (ICD-10) Menorrhagia ?N92.0 - Excessive and frequent menstruation with regular cycle (ICD-10) Request for sterilization ?Z30.2 - Encounter for sterilization (ICD-10) Hidradenitis suppurativa ?L73.2 - Hidradenitis suppurativa (ICD-10) Abscess ?L02.91 - Cutaneous abscess, unspecified (ICD-10) Sleep apnea ?G47.30 - Sleep apnea, unspecified (ICD-10) Osteoarthritis ?M19.90 - Unspecified osteoarthritis, unspecified site (ICD-10) Dm-Schlatter's disease ?M92.529 - Juvenile osteochondrosis of tibia tubercle, unspecified leg (ICD- 10) Anemia ?D64.9 - Anemia, unspecified (ICD-10) Anxiety ?F41.9 - Anxiety disorder, unspecified (ICD-10) Acid reflux ?K21.9 - Gastro-esophageal reflux disease without esophagitis (ICD-10) Factor V Leiden ?D68.51 - Activated protein C resistance (ICD-10) 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 - Autoimmune thyroiditis (ICD-10) Pulmonary embolism ?I26.99 - Other pulmonary embolism without acute cor pulmonale (ICD-10) High cholesterol ?E78.00 - Pure hypercholesterolemia, unspecified (ICD-10) Hypertension ?I10 - Essential (primary) hypertension (ICD-10) Chest pain ?R07.9 - Chest pain, unspecified (ICD-10) Surgical History History of incision and drainage ?Z98.890 - Other specified postprocedural states (ICD-10) History of esophagogastroduodenoscopy (EGD) ?Z98.890 - Other specified postprocedural states (ICD-10) S/P surgical removal of pilonidal cyst ?Z98.890 - Other specified postprocedural states (ICD-10) S/P epidural steroid injection ?Z92.241 - Personal history of systemic steroid therapy (ICD-10) Hx of cholecystectomy ?Z90.49 - Acquired absence of other specified parts of digestive tract (ICD- 10) H/O partial thyroidectomy ?E89.0 - Postprocedural hypothyroidism (ICD-10) [place] teeth extracted ?K08.409 - Partial loss of teeth, unspecified cause, unspecified class (ICD- 10) Hx of tonsillectomy ?Z90.89 - Acquired absence of other organs (ICD-10) History of appendectomy ?Z90.49 - Acquired absence of other specified parts of digestive tract (ICD- 10) Family History Other Cancer Factor V deficiency Family history of colon cancer Family history of diabetes mellitus Family history of heart disease Family history of hypertension Family history of myocardial infarction Family history of seizures Family history of stroke Social History Within the past year, how often did you have a drink containing alcohol: never Score interpretation: A score less than 3 is consistent with normal alcohol consumption. Smoking status: Former smoker Non-prescribed substance use: denies use Highest level of school completed/degree received: high school graduate Meds Home Medications and Allergies Home Medications ?Medication ?Instructions ?Recorded ?Confirmed ?Type atomoxetine 60 mg capsule 60 mg PO QDAY 02/01/23 04/25/24 History gabapentin 300 mg capsule 300 mg PO Q8H 02/01/23 04/25/24 History isosorbide mononitrate 10 mg tablet 15 mg PO QDAY 02/01/23 04/25/24 History metoprolol tartrate 50 mg tablet 50 mg PO BID 02/01/23 04/25/24 History (Lopressor) omeprazole 20 mg capsule,delayed 20 mg PO BID 02/01/23 04/25/24 History release rimegepant 75 mg disintegrating 75 mg PO QDAY PRN migraine headache 02/01/23 04/14/24 History tablet (Nurtec ODT) spironolactone 25 mg tablet 25 mg PO QDAY 02/01/23 04/25/24 History acetaminophen 300 mg-codeine 30 mg 1 tab PO BID PRN pain #60 tabs 03/10/24 04/25/24 Rx tablet cyclobenzaprine 10 mg tablet 10 mg PO TID PRN muscle spasm #90 03/10/24 04/25/24 Rx tabs ferrous sulfate 325 mg (65 mg 325 mg PO DAILY 03/10/24 04/25/24 History iron) tablet (Feosol) fondaparinux 10 mg/0.8 mL 10 mg subcut DAILY 03/10/24 04/25/24 History subcutaneous solution syringe hydrochlorothiazide 25 mg tablet 25 mg PO DAILY 03/10/24 04/25/24 History secukinumab 150 mg/mL subcutaneous 300 mg subcut .QMONTH 03/10/24 04/25/24 History syringe (Cosentyx 300 mg/2 Syringes () levothyroxine 50 mcg tablet 50 mcg PO DAILY 04/11/24 04/25/24 History semaglutide 0.25 mg or 0.5 mg (2 0.5 mg subcut QWEEK 04/11/24 04/25/24 History mg/3 mL) subcutaneous pen injector (Ozempic) Allergies Allergy/AdvReac Type Severity Reaction Status Date / Time amoxicillin Allergy Severe Hives Verified 04/25/24 06:38 cefaclor (From Ceclor) Allergy Severe Hives Verified 04/25/24 06:38 ciprofloxacin (From Cipro) Allergy Severe Hives Verified 04/25/24 06:38 Estrogens Allergy Severe due to Verified 04/25/24 06:38 factor V Sulfa (Sulfonamide Allergy Severe Hives Verified 04/25/24 06:38 Antibiotics) tetanus and diphtheria Allergy Severe vomiting Verified 04/25/24 06:38 toxoids and fever kory Allergy Hives Uncoded 04/25/24 06:38 Exam Constitutional Documenting provider has reviewed patient's vital signs: yes Common normals: no apparent distress, oriented x3, healthy appearing, alert and well nourished General appearance: cooperative Nutritional appearance: obese [facility] Common normals: normocephalic, hearing grossly normal bilaterally and moist oral mucous membranes Head and scalp: normocephalic Eye Common normals: PERRL Pupil: PERRL Neck & C-Spine Common normals: full ROM General: normal visual inspection Chest Common normals: inspection of chest normal Respiratory Common normals: normal respiratory effort, no retractions and no use of accessory muscles Back & Pelvis Lumbar spine/lower back: normal to inspection, ROM limited, pain with ROM, straight leg raise positive right and straight leg raise positive left Sacroiliac joints: SI joint(s) abnormal Other: bilateral sij positive yue(patricks), gaenslens, thigh thrust, compression test sensation diminished in bilateral L5/S1 strength 4/5 in BLE Neuro Common normals: oriented x3, CN's II-XII intact bilaterally, moves all extremities, no focal motor deficits, no sensory deficits noted and deep tendon reflexes 2+ bilaterally Sensorium/orientation: alert Motor exam: strength 5/5 throughout and no movement abnormalities noted Psych Common normals: mental status grossly normal, thought process normal, cooperative, affect normal, speech normal and activity/motor behavior normal Speech: normal speech Thought process: normal thought process Results Additional Findings Additional findings: If on a controlled substance or opioids, I have checked an [place] report on this patient and there are no aberrancies noted in the prescribing history.??If on a controlled substance or opioid a drug screen was completed and reviewed within the last year, and if there has not been a drug screen completed we ordered one today to monitor higher risk, state monitored pain medication use. As part of providing excellent, safe, comprehensive care, the following was completed at our patient's visit: 1. A medication reconciliation and review to ensure accurate knowledge of current/active medications, including asking our patients to inform us about any [id number] medications or herbal remedies/nutritional supplements/alternative remedies. 2. A review to specifically ensure our patients have had annual screening for screening for depression, screening for tobacco use, and screening for unhealthy alcohol use. For concerning screenings had a discussion with the patient, provided patient education, and recommended follow-up with primary care provider when appropriate. If patient noted with a risk of falling, they received education on strength, gait, and balance training to prevent future risk of falling. Assessment and Plan Assessment and Plan (1) Lumbar stenosis with neurogenic claudication: (2) Chronic prescription opiate use: Assessment and Plan: I feel these medications are improving the patient's quality of life and allow them to tolerate activities of daily living as well as participate in recreational activity.? The patient does not report intolerable side effects. The patient is NOT opioid naive and non-pharmacologic and non-opioid treatment has failed to significantly relieve the patient's pain and improve functionality. The patient has a diagnosis that is related to a somatic or visceral pain etiology. ? ?? I reviewed with the patient the potential risks and side effects with the use of? opioid medications including but not limited to respiratory depression,? sedation, and even . I verified the patient has access to naloxone should? these effects occur. I advised the patient to avoid the use of any other? sedation substances including alcohol, THC, and benzodiazepines while? taking opioid medications due to the risk of compounding side effects and? detrimental outcomes. I reviewed the [employer] PERFORMER, pain treatment agreement, urine? drug screen, and opioid start talking forms. The patient was advised to let? their family know they had Naloxone in case they would need to administer? the medication.? ?? A drug screen was completed within the last year, and no aberrancies were noted regarding their use of controlled substances. The patient understands they are subject to the terms and conditions of the pain contract that they have signed. ? ?? I have checked an [place] report on this patient today and there are no aberrancie s noted in the prescribing history.? (3) Lumbar spondylosis: (4) Muscle spasm: (5) DDD (degenerative disc disease): (6) Obesity: Assessment and Plan: on ozempic, working on weight loss Plan continue current medications, reporting benefit without side effects continue HEP as tolerated update lumbar xray with flexion to evaluate stability f/u 3 months, sooner if needed
== END 2024-07-23 12:11 | disposition home or self-care (01) ==
LOC: PM 12:10
PROVIDERS: Visit Provider Nurse Practitioner
DX: M48.062 Spinal stenosis, lumbar region with neurogenic claudication (principal); M47.816 Spondylosis without myelopathy or radiculopathy, lumbar region; Z79.891 Long term (current) use of opiate analgesic; M62.838 Other muscle spasm; M51.369 Other intervertebral disc degeneration, lumbar region without mention of lumbar back pain or lower extremity pain; E66.89 Other obesity not elsewhere classified
CPT/HCPCS: G0463

== ENCOUNTER 2024-09-10 09:32 | Outpatient (OUT) | payer MEDICARE, MEDICAID, SELFPAY ==
--- NOTE | 2024-09-10 10:05 | PM.CN ---
Consult Note: HPI Data of Consult Patient: known to practice within the last 3 years Consult date: 03/10/24 Requesting Physician: Brenda Gonzalez NP Primary Care Provider: Non-Staff Physician, MD Consult Narrative Reason for consult: low back, bilateral leg pain Narrative: 33yof who presents for assessment. continues to have worsening low back and bilateral leg pain and weakness. imaging reviewed, which is significant for multilevel stenosis, worst noted at l5-s1. continues to engage in a series of provider directed home exercises, which have not helped >6 weeks. uses Tylenol #3 gabapentin, flexeril. denies adverse med side effects. previously bilateral L5-S1 TFESI provided >50% improvement greater than 3 months. recent lumbar xray shows grade 2 listhesis at L5-S1. 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 - Hereditary deficiency of other clotting factors (ICD-10) Deep vein thrombosis ?I82.409 - Acute embolism and thrombosis of unspecified deep veins of unspecified lower extremity (ICD-10) Depression ?F32.A - Depression, unspecified (ICD-10) Panic attacks ?F41.0 - Panic disorder [episodic paroxysmal anxiety] (ICD-10) COVID-19 ?U07.1 - COVID-19 (ICD-10) Migraine ?G43.909 - Migraine, unspecified, not intractable, without status migrainosus (ICD-10) Atrial fibrillation ?I48.91 - Unspecified atrial fibrillation (ICD-10) PCOS (polycystic ovarian syndrome) ?E28.2 - Polycystic ovarian syndrome (ICD-10) 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 - Methylenetetrahydrofolate reductase deficiency (ICD-10) ?E72.11 - Homocystinuria (ICD-10) Pelvic pain ?R10.2 - Pelvic and perineal pain (ICD-10) Abnormal uterine bleeding (AUB) ?N93.9 - Abnormal uterine and vaginal bleeding, unspecified (ICD-10) Menorrhagia ?N92.0 - Excessive and frequent menstruation with regular cycle (ICD-10) Request for sterilization ?Z30.2 - Encounter for sterilization (ICD-10) Hidradenitis suppurativa ?L73.2 - Hidradenitis suppurativa (ICD-10) Abscess ?L02.91 - Cutaneous abscess, unspecified (ICD-10) Sleep apnea ?G47.30 - Sleep apnea, unspecified (ICD-10) Osteoarthritis ?M19.90 - Unspecified osteoarthritis, unspecified site (ICD-10) [place]-Schlatter's disease ?M92.529 - Juvenile osteochondrosis of tibia tubercle, unspecified leg (ICD-10) Anemia ?D64.9 - Anemia, unspecified (ICD-10) Anxiety ?F41.9 - Anxiety disorder, unspecified (ICD-10) Acid reflux ?K21.9 - Gastro-esophageal reflux disease without esophagitis (ICD-10) Factor V Leiden ?D68.51 - Activated protein C resistance (ICD-10) 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 - Autoimmune thyroiditis (ICD-10) Pulmonary embolism ?I26.99 - Other pulmonary embolism without acute cor pulmonale (ICD-10) High cholesterol ?E78.00 - Pure hypercholesterolemia, unspecified (ICD-10) Hypertension ?I10 - Essential (primary) hypertension (ICD-10) Chest pain ?R07.9 - Chest pain, unspecified (ICD-10) Surgical History History of incision and drainage ?Z98.890 - Other specified postprocedural states (ICD-10) History of esophagogastroduodenoscopy (EGD) ?Z98.890 - Other specified postprocedural states (ICD-10) S/P surgical removal of pilonidal cyst ?Z98.890 - Other specified postprocedural states (ICD-10) S/P epidural steroid injection ?Z92.241 - Personal history of systemic steroid therapy (ICD-10) Hx of cholecystectomy ?Z90.49 - Acquired absence of other specified parts of digestive tract (ICD-10) H/O partial thyroidectomy ?E89.0 - Postprocedural hypothyroidism (ICD-10) [place] teeth extracted ?K08.409 - Partial loss of teeth, unspecified cause, unspecified class (ICD-10) Hx of tonsillectomy ?Z90.89 - Acquired absence of other organs (ICD-10) History of appendectomy ?Z90.49 - Acquired absence of other specified parts of digestive tract (ICD-10) Family History Other Cancer Factor V deficiency Family history of colon cancer Family history of diabetes mellitus Family history of heart disease Family history of hypertension Family history of myocardial infarction Family history of seizures Family history of stroke Social History Within the past year, how often did you have a drink containing alcohol: never Score interpretation: A score less than 3 is consistent with normal alcohol consumption. Smoking status: Former smoker Non-prescribed substance use: denies use Highest level of school completed/degree received: high school graduate Meds Home Medications and Allergies Home Medications ?Medication ?Instructions ?Recorded ?Confirmed ?Type atomoxetine 60 mg capsule 60 mg PO QDAY 02/01/23 04/25/24 History gabapentin 300 mg capsule 300 mg PO Q8H 02/01/23 04/25/24 History isosorbide mononitrate 10 mg tablet 15 mg PO QDAY 02/01/23 04/25/24 History metoprolol tartrate 50 mg tablet 50 mg PO BID 02/01/23 04/25/24 History (Lopressor) omeprazole 20 mg capsule,delayed 20 mg PO BID 02/01/23 04/25/24 History release rimegepant 75 mg disintegrating 75 mg PO QDAY PRN migraine headache 02/01/23 04/14/24 History tablet (Nurtec ODT) spironolactone 25 mg tablet 25 mg PO QDAY 02/01/23 04/25/24 History acetaminophen 300 mg-codeine 30 mg 1 tab PO BID PRN pain #60 tabs 03/10/24 04/25/24 Rx tablet cyclobenzaprine 10 mg tablet 10 mg PO TID PRN muscle spasm #90 03/10/24 04/25/24 Rx tabs ferrous sulfate 325 mg (65 mg 325 mg PO DAILY 03/10/24 04/25/24 History iron) tablet (Feosol) fondaparinux 10 mg/0.8 mL 10 mg subcut DAILY 03/10/24 04/25/24 History subcutaneous solution syringe hydrochlorothiazide 25 mg tablet 25 mg PO DAILY 03/10/24 04/25/24 History secukinumab 150 mg/mL subcutaneous 300 mg subcut .QMONTH 03/10/24 04/25/24 History syringe (Cosentyx 300 mg/2 Syringes () levothyroxine 50 mcg tablet 50 mcg PO DAILY 04/11/24 04/25/24 History semaglutide 0.25 mg or 0.5 mg (2 0.5 mg subcut QWEEK 04/11/24 04/25/24 History mg/3 mL) subcutaneous pen injector (Ozempic) baclofen 10 mg tablet 10 mg PO TID #90 tabs 09/09/24 Rx Allergies Allergy/AdvReac Type Severity Reaction Status Date / Time amoxicillin Allergy Severe Hives Verified 04/25/24 06:38 cefaclor (From Ceclor) Allergy Severe Hives Verified 04/25/24 06:38 ciprofloxacin (From Cipro) Allergy Severe Hives Verified 04/25/24 06:38 Estrogens Allergy Severe due to Verified 04/25/24 06:38 factor V Sulfa (Sulfonamide Allergy Severe Hives Verified 04/25/24 06:38 Antibiotics) tetanus and diphtheria Allergy Severe vomiting Verified 04/25/24 06:38 toxoids and fever kory Allergy Hives Uncoded 04/25/24 06:38 Exam Constitutional Documenting provider has reviewed patient's vital signs: yes Common normals: no apparent distress, oriented x3, healthy appearing, alert and well nourished General appearance: cooperative Nutritional appearance: obese [facility] Common normals: normocephalic, hearing grossly normal bilaterally and moist oral mucous membranes Head and scalp: normocephalic Eye Common normals: PERRL Pupil: PERRL Neck & C-Spine Common normals: full ROM General: normal visual inspection Cervical spine: cervical ROM abnormal, pain with cervical ROM and cervical spine tenderness Other: positive spurlings strength 4/5 in BUE decreased sensation C6,7 significant multilevel facet pain Chest Common normals: inspection of chest normal Respiratory Common normals: normal respiratory effort, no retractions and no use of accessory muscles Back & Pelvis Lumbar spine/lower back: normal to inspection, ROM limited, pain with ROM, straight leg raise positive right and straight leg raise positive left Sacroiliac joints: SI joint(s) abnormal Other: bilateral sij positive yue(patricks), gaenslens, thigh thrust, compression test sensation diminished in bilateral L5/S1 strength 4/5 in BLE Neuro Common normals: oriented x3, CN's II-XII intact bilaterally, moves all extremities, no focal motor deficits, no sensory deficits noted and deep tendon reflexes 2+ bilaterally Sensorium/orientation: alert Motor exam: strength 5/5 throughout and no movement abnormalities noted Psych Common normals: mental status grossly normal, thought process normal, cooperative, affect normal, speech normal and activity/motor behavior normal Speech: normal speech Thought process: normal thought process Results Additional Findings Additional findings: If on a controlled substance or opioids, I have checked an [place] report on this patient and there are no aberrancies noted in the prescribing history.??If on a controlled substance or opioid a drug screen was completed and reviewed within the last year, and if there has not been a drug screen completed we ordered one today to monitor higher risk, state monitored pain medication use. As part of providing excellent, safe, comprehensive care, the following was completed at our patient's visit: 1. A medication reconciliation and review to ensure accurate knowledge of current/active medications, including asking our patients to inform us about any [id number] medications or herbal remedies/nutritional supplements/alternative remedies. 2. A review to specifically ensure our patients have had annual screening for screening for depression, screening for tobacco use, and screening for unhealthy alcohol use. For concerning screenings had a discussion with the patient, provided patient education, and recommended follow-up with primary care provider when appropriate. If patient noted with a risk of falling, they received education on strength, gait, and balance training to prevent future risk of falling. Assessment and Plan Assessment and Plan (1) Lumbar stenosis with neurogenic claudication: (2) Spondylolisthesis at L5-S1 level: (3) Chronic prescription opiate use: Assessment and Plan: I feel these medications are improving the patient's quality of life and allow them to tolerate activities of daily living as well as participate in recreational activity.? The patient does not report intolerable side effects. The patient is NOT opioid naive and non-pharmacologic and non-opioid treatment has failed to significantly relieve the patient's pain and improve functionality. The patient has a diagnosis that is related to a somatic or visceral pain etiology. ? ?? I reviewed with the patient the potential risks and side effects with the use of? opioid medications including but not limited to respiratory depression,? sedation, and even . I verified the patient has access to naloxone should? these effects occur. I advised the patient to avoid the use of any other? sedation substances including alcohol, THC, and benzodiazepines while? taking opioid medications due to the risk of compounding side effects and? detrimental outcomes. I reviewed the [employer], pain treatment agreement, urine? drug screen, and opioid start talking forms. The patient was advised to let? their family know they had Naloxone in case they would need to administer? the medication.? ?? A drug screen was completed within the last year, and no aberrancies were noted regarding their use of controlled substances. The patient understands they are subject to the terms and conditions of the pain contract that they have signed. ? ?? I have checked an [place] report on this patient today and there are no aberrancies noted in the prescribing history.? (4) Lumbar spondylosis: (5) Muscle spasm: (6) DDD (degenerative disc disease): (7) Cervical radiculopathy: (8) Obesity: Assessment and Plan: on [place], working on weight loss Plan repeat bilateral L5-S1 TFESI under fluoroscopy, risks cs benefits reviewed. previous injection provided >50% improvement greater than 3 months refer to JOSE ALBERTO Newman for evaluation update cervical xray to assess cervical radiculopathy and chronic neck pain unresponsive to 6 weeks of HEP, heat/ice, tylenol, cannot take NSAIDs continue current medications, risks vs benefits reviewed f/u 2 weeks after injection
== END 2024-09-10 09:33 | disposition home or self-care (01) ==
LOC: PM 09:32
PROVIDERS: Visit Provider Nurse Practitioner
DX: M48.062 Spinal stenosis, lumbar region with neurogenic claudication (principal); M43.17 Spondylolisthesis, lumbosacral region; Z79.891 Long term (current) use of opiate analgesic
CPT/HCPCS: G0463

== ENCOUNTER 2024-09-10 10:15 | Outpatient (OUT) | payer MEDICARE, MEDICAID, SELFPAY ==
--- NOTE | 2024-09-10 10:22 | XR_ITS ---
The [address] [address] Patient Name: TERESSA PRIETO MRN: [id number] date: 1990 Sex: F Assigned Patient Location: [facility] Current Patient Location: [facility] Accession/Order Number: [id number] Exam Date: 09/10/2024 10:30 Report Date: 09/10/2024 13:02 At the request of: MIRTHA CALZADA Procedure: XR cervical spine 5V EXAMINATION: XR cervical spine 5V HISTORY: cervical radiculopathy COMPARISON: No relevant comparison available. FINDINGS: BONES: Loss of normal cervical lordosis. No acute fracture or spondylolisthesis. No significant degenerative changes. C7 is not seen on the lateral projection DISC SPACES: Normal. No significant disc height narrowing, subluxation, or endplate abnormality. PARASPINOUS: Negative. No paraspinous abnormality is seen. OTHER: Negative. XR/XR cervical spine 5V IMPRESSION: Loss of normal cervical lordosis Electronically authenticated by: KATYA BECK Date: 09/10/2024 13:02
== END 2024-09-10 10:16 | disposition home or self-care (01) ==
LOC: RAD 10:18
PROVIDERS: Visit Provider Nurse Practitioner
DX: M48.062 Spinal stenosis, lumbar region with neurogenic claudication (principal); M43.17 Spondylolisthesis, lumbosacral region; Z79.891 Long term (current) use of opiate analgesic; M54.12 Radiculopathy, cervical region
CPT/HCPCS: 72050; G0463

== ENCOUNTER 2024-09-22 07:10 | Day surgery (SDC) | payer MEDICARE, MEDICAID, SELFPAY ==
--- OUTSIDE RECORDS SUMMARY | 2024-09-22 07:14 | XMS_ITS | CCD ---
Author Organization [facility] Care Team Providers Care Ui Engineer Name Role Phone Nidhi Isiah Primary Care Provider SANTIAGO SHELL Admitting Unavailable HOY, ISIAH Referring Unavailable HOY, ISIAH Primary Care Unavailable SHELLSANTIAGO CRUMP Attending Unavailable SHEMARTrev, ISIAH Primary Care Unavailable SANTIAGO SHELL Attending Unavailable MD John Carlson Attending Provider BRIAN Flanagan Primary Care Provider DO Dominique Garrison Attending Provider [phone] [facility] Primary Care Unava ilable KAPOOR ., DR KACEY Gray Admitting Unavailable KAPOOR ., DR KACEY Gray Consulting Unavailable KAPOOR ., DR KACEY Gray Attending Unavailable KAPOOR ., DR KACEY Gray Admitting Unavailable CERVANTES ., ACE Consulting Unavailable PAM FLANAGAN Primary [facility] Unavailable KAPOOR ., DR KACEY Gray Attending Unavailable [facility] Unavailable CERVANTES ., ACE Consulting Unavailable KAPOOR ., DR KACEY Gray Admitting Unavailable KAPOOR ., DR KACEY Gray Attending Unavailable SHAMMO, NIKOLAS Primary Care Unavailable LAKSHMIPATHY ., NARKOBI Attending Norma vailable LAKSHMIPATHY ., NETTE Admitting Norma vailable KAPOOR ., DR KACEY Gray Admitting Unavailable SHAMMO, NIKOLAS Primary Care Unavailable CERVANTES ., ACE Consulting Unavailable KAPOOR ., DR KACEY Gray Attending Unavailable SHAMMO, NIKOLAS Admitting Unavailable SHAMMO, NIKOLAS Primary Care Unavailable SHAMMO, NIKOLAS Attending Unavailable [facility] Primary Care Unava ilable CERVANTES ., ACE Attending [...] SHAMMO, NIKOLAS Primary Care Unavailable TRAN, DR ONOFRE Linda Consulting Unavailabl e REINECK, DR ONOFRE Linda Attending Unavailabl e REINECK, DR ONOFRE Linda Admitting Unavailabl e ZIEBER, DR SANIA Khanna Consulting Unavailable MICHELE ., DELONTE Attending Unavailable [facility] Unava ilable MICHELE ., DELONTE Admitting Unavailable RANI ., PA BELLO Consulting Unavailabl e MIRELES, DEREK Consulting Unavailable ANTWON ., DR KACEY Gray Attending Unavailable [facility] Unava ilable CERVANTES ., ACE Consulting Unavailable ANTWON ., DR KACEY Gray Admitting Unavailable [facility] 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[facility], [facility] Primary Care Provider [facility] Provider [phone] [facility] er DO Dannie Dickinson Attending Provider DANNIE DICKINSON Attending Unavailable TEENA, DANNIE Attending Unavailable TEENA, DANNIE Attending Unavailable Teena, Dannie Attending Unavailable Jono Dickinsony Admitting Unavailable [facility] Care Unavail able [facility] Unavail able STEPHANI LUCAS Referring Unavai lable [facility] Unavail able ABHYANKAR, SHARIF Referring Unavailable ABHYANKAR, SHARIF Attending Unavailable [facility] Care Unavail able [facility] Primary Care Unavail able ABHYANKAR, SHARIF Referring Unavailable ABHYANKAR, SHARIF Attending Unavailable [facility] Referring Unavail able [facility] Primary Care Unavail able ABHYANKAR, SHARIF Attending Unavailable [facility] Care Unavail able Barak CORTES, Hailerius Cunningham Attending Unavailable Barak CORTES, Andrius Octavio Attending Unavailable Barak CORTES, Andrius Octavio Attending Unavailable Barak CORTES, Yancy Cunningham Attending Unavailable Barak CORTES, Yancy Cunningham Attending Unavailable [facility] , [facility] Primary Care Provider CORINE CATHERINE [...] MEJIA Attending Unavailable COLLINS MEJIA Referring Unavailable TAHCKER, HARLEY Primary Care Unavailable COLLINS MEJIA Attending Unavailable COLLINS MEJIA Referring Unavailable THACKER, HARLEY Primary Care Unavailable MAYRA RAYA Attending Unavailable THACKER, HARLEY Primary Care Unavailable THACKER, HARLEY Referring Unavailable THACKER, HARLEY Primary Care Unavailable MATTHEW PITTMAN Attending Unavailable TALEBMATTHEW Referring Unavailable THACKER, HARLEY Primary Care Unavailable THACKER, HARLEY Referring Unavailable THACKER, HARLEY Primary Care Unavailable THACKER, HARLEY Referring Unavailable THACKER, HARLEY Primary Care Unavailable THACKER, HARLEY Referring Unavailable THACKER, HARLEY Primary Care Unavailable THACKER, HARLEY Referring Unavailable THACKER, HARLEY Primary Care Unavailable THACKER, HARLEY Referring Unavailable THACKER, HARLEY Primary Care Unavailable MIRTHA CALZADA Referring Unavailable THACKER, HARLEY Primary Care Unavailable THACKER, HARLEY Referring Unavailable THACKER, HARLEY Primary Care Unavailable THACKER, HARLEY Referring Unavailable THACKER, HARLEY Primary Care Unavailable CORINE CATHERINE Attending Unavailable THACKER, HARLEY Referring Unavailable THACKER, HARLEY Primary Care Unavailable CLARIBEL OLSON Attending Unavailable THACKER, HARLEY Attending Unavailable THACKER, HARLEY Referring Unavailable THACKER, HARLEY Primary Care Unavailable THACKER, HARLEY Referring Unavailable THACKER, HARLEY Primary Care Unavailable WHITNEY, CLARIBEL Attending Unavailable MIYASHIRA Attending Unavailable THACKER, HARLEY Referring Unavailable THACKER, [...] Care Unavailable WHITNEYCLARIBEL Attending Unavailable THACKER, HARLEY Attending Unavailable THACKER, HARLEY Referring Unavailable THACKER, HARLEY Primary Care Unavailable THACKER, HARLEY Referring Unavailable THACKER, HARLEY Primary Care Unavailable CLARIBEL OLSON Attending Unavailable THACKER, HARLEY Referring Unavailable THACKER, HARLEY Primary Care Unavailable WHITNEYCLARIBEL Attending Unavailable MIYASHIRA Gray Attending Unavailable THACKER, HARLEY Referring Unavailable THACKER, HARLEY Primary Care Unavailable THACKER, HARLEY Referring Unavailable THACKER, HARLEY Primary Care Unavailable CLARIBEL OLSON Attending Unavailable THACKER, HARLEY Attending Unavailable THACKER, HARLEY Referring Unavailable THACKER, HARLEY Primary Care Unavailable THACKER, HARLEY Referring Unavailable THACKER, HARLEY Primary Care Unavailable WHITNEY, CLARIBEL Attending Unavailable MI, YASHIRA M Attending Unavailable THACKER, HARLEY Referring Unavailable THACKER, HARLEY Primary Care Unavailable THACKER, HARLEY Referring Unavailable THACKER, HARLEY Primary Care Unavailable WHITNEY, CLARIBEL Attending Unavailable THACKER, HARLEY Attending Unavailable THACKER, HARLEY Referring Unavailable THACKER, HARLEY Primary Care Unavailable MI, YASHIRA M Attending Unavailable THACKER, HARLEY Referring Unavailable THACKER, HARLEY Primary Care Unavailable MI, YASHIRA M Attending Unavailable THACKER, HARLEY Referring Unavailable THACKER, HARLEY Primary Care Unavailable THACKER, HARLEY Referring Unavailable THACKER, HARLEY Primary Care Unavailable WHITNEY, CLARIBEL Attending Unavailable THACKER, HARLEY Attending Unavailable THACKER, HARLEY Referring Unavailable THACKER, HARLEY Primary Care Unavailable THACKER, HARLEY Referring Unavailable THACKER, HARLEY Primary Care Unavailable WHITNEY, CLARIBEL Attending Unavailable THACKER, HARLEY Attending Unavailable THACKER, HARLEY Primary Care Unavailable THACKER, HARLEY Referring Unavailable THACKER, HARLEY Attending Unavailable THACKER, HARLEY Primary Care Unavailable THACKER, HARLEY Referring Unavailable THACKER, HARLEY Primary Care Unavailable THACKER, HARLEY Referring Unavailable MI, YASHIRA M Attending Unavailable THACKER, HARLEY Attending Unavailable THACKER, HARLEY Primary Care Unavailable SHAMMO, NIKOLAS Referring Unavailable MI, YASHIRA M Attending Unavailable THACKER, HARLEY Referring Unavailable THACKER, HARLEY Primary Care Unavailable THACKER, HARLEY Referring Unavailable THACKER, HARLEY Primary Care Unavailable WHITNEY, CLARIBEL Attending Unavailable THACKER, HARLEY Primary Care Unavailable THACKER, HARLEY Referring Unavailable WHITNEY, CLARIBEL Attending Unavailable Allergies Allergy Classification Reported Allergen(s) Allergy Type Date of Onset Reaction(s) Facility (13 sources) Allopurinol; Translations: [ALLOPURINOL] Drug Allergy 05-12-20 [facility] (20 sources) Amoxicillin; Translations: [AMOXICILLIN] Drug Allergy 04-28-20 13 [facility] (20 sources) Cefaclor; Translations: [CEFACLOR] Drug Allergy 04-28-20 13 Hives, Other (See Comments), Rash, Unknown [facility] (20 sources) Ciprofloxacin; Translations: [CIPROFLOXACIN] Drug Allergy 09-03-19 [facility] (20 sources) Estrogens; Translations: [ESTROGENS] Drug Allergy 01-29-20 15 Other (See Comments), Unknown [facility] (20 sources) Penicillins; Translations: [PENICILLINS] Propensity to adverse reactions to drug 02-15-20 13 Hives, Rash [facility] (20 sources) Sulfonamides (Antibiotic); Translations: [SULFA (SULFONAMIDE ANTIBIOTICS)] Propensity to adverse reactions to drug 09-03-19 [facility] (6 sources) Sulfamethoxazole Drug Allergy 02-01-20 [facility] (20 sources) Trimethoprim; Translations: [TRIMETHOPRIM] Drug Allergy 02-01-20 [facility] (6 sources) DPT Allergy to substance 02-01-20 Redness of Skin [facility] (6 sources) surgical kory Allergy to substance 02-01-20 [facility] (6 sources) hormones Propensity to adverse reactions 02-01-20 will cause blood clots [facility] (2 sources) Amoxicillin Drug Allergy [facility] (2 sources) Cefaclor Drug Allergy [facility] (2 sources) Ciprofloxacin Drug Allergy 09-03-19 [facility] (2 sources) Sulfonamides (Antibiotic) Drug allergy (disorder) 09-03-19 [facility] (20 sources) Cephalosporins (Antibiotic); Translations: [CEPHALOSPORINS] Propensity to adverse reactions to drug 06-13-20 [facility] (20 sources) Sulfamethoxazole / Trimethoprim; Translations: [SULFAMETHOXAZOLE-T RIMETHOPRIM] Drug Allergy 06-16-20 16 Rash, Unknown [facility] (20 sources) Diphtheria,Pertussi s,Tetanus; Translations: [DIPHTHERIA,PERTUSS IS,TETANUS] Propensity to adverse reactions to drug 04-28-20 13 [facility] (20 sources) Other; Translations: [OTHER] Propensity to adverse reactions 02-29-20 16 Rash [facility] (20 sources) Pertussis Vaccines; Translations: [PERTUSSIS VACCINES] Propensity to adverse reactions to drug 04-24-20 18 Unknown [facility] (20 sources) Tetanus Vaccines And Toxoid; Translations: [TETANUS VACCINES AND TOXOID] Propensity to adverse reactions to drug 02-29-20 16 [facility] (13 sources) Tetanus And Diphtheria Toxoids; Translations: [TETANUS AND DIPHTHERIA TOXOIDS] Drug Allergy 06-25-20 23 Unknown [facility] (1 source) Cephalosporins (Antibiotic) Drug Intolerance 06-13-20 [facility] (1 source) Penicillin V Drug Allergy 02-15-20 13 Rash [facility] (1 source) Sulfonamides (Antibiotic) Drug Intolerance 09-03-19 20 Hives [facility] (1 source) Tetanus-Diphtheria Toxoids Td Drug Intolerance 02-29-20 [facility] Medications Current Medications Medication Drug Class(es) Dates Sig (Normalized) Sig (Original) acetaminophen 325 mg oral capsule (12 sources) acetaminophen (TYLENOL) 325 mg cap Take by mouth. Active Comment on above: Take by mouth. acetaminophen 300 mg / codeine phosphate 30 mg oral tablet (20 sources) Opioid Agonist take 1 tablet by mouth twice daily as needed for pain acetaminophen-codeine (TYLENOL #3) 300-30 mg per tablet Take 1 tablet by mouth 2 (two) times a day as needed for pain. Active acetaminophen-co deine (TYLENOL-COD #3) 300-30 mg per tablet Take 1 tablet by mouth. Active acetaminophen 325 mg / HYDROcodone bitartrate 5 mg oral tablet (20 sources) Opioid Agonist Start: 04-10-2022 take 1 tablet by mouth every six hours Hydrocodone-Acetaminophen Active 1 TAB PO Q6H 30 03April [...] Hydrocodone-Acetaminophen Discontinued 1 TAB PO Q6H 28 7 March 13, 2022 April 10, 2022 1:38pm [...] tablet Take 1 tablet by mouth. Active take 1 tablet by christina th in the morning HYDROcodone-acetaminophen ([place]) 5-325 MG tablet Take 1 tablet by mouth in the morning and 1 tablet in the evening. Active Comment on above: Take 1 tablet by christina th. ARIPiprazole 10 mg oral tablet (20 sources) Atypical Antipsychotic Start: 05-07-20 End: 09-11-19 25 take 1 tablet by mouth in the morning ARIPiprazole (ABILIFY) 10 mg tablet Take 1 tablet (10 mg total) by mouth in the morning. 60 tablet 09/11/2024 Active Start: 10-19-2023 End: 11-28-2023 take 1 tablet [...] capsule (20 sources) Norepinephrine Reuptake Inhibitor Start: 05-07-20 24 End: 09-11-19 25 take 1 capsule by mouth in the morning atomoxetine (STRATTERA) 60 mg capsule Take 1 capsule (60 mg total) by mouth in the morning. 60 capsule 09/11/2024 Active Start: 01-31-2022 End: 11-28-2023 take 60 mg by mouth once daily in the morning Atomoxetine Active 60 MG PO Every morning January 31, 2022 12:00am Comment on above: Take 60 mg by mouth. baclofen 10 mg oral tablet (8 sources) gamma-Aminobutyric Acid-ergic Agonist Start: 09-01-2024 End: 09-08-2024 take 1 tablet by mouth three times daily baclofen (LIORESAL) 10 mg tablet Indications: Muscle spasm Take 1 tablet (10 mg total) by mouth 3 (three) times a day for 7 days. 21 tablet 09/01/2024 09/08/2024 Active Start: 01-31-2022 take 10 mg by mouth once daily at bedtime Baclofen Active 10 MG PO Daily at bedtime January 31, 2022 12:00am 24 hr buPROPion hydrochloride 150 mg extended release oral tablet (12 sources) Aminoketone Start: 05-03-2017 take 1 tablet by mouth every twenty-four hours buPROPion XL (WELLBUTRIN XL) 150 mg 24 hr tablet Take 150 mg by mouth. 05/03/2017 Active Comment on above: Take 150 mg by mouth . busPIRone hydrochloride 15 mg oral tablet (11 sources) Start: 04-16-2023 busPIRone (BUSPAR) 15 mg tablet 04/16/2023 Active cefdinir 300 mg oral capsule (1 source) Cephalosporin Antibacterial cefdinir (Omnicef) 300 MG capsule Take 300 mg by mouth. Active cetirizine hydrochloride 10 mg oral tablet (12 sources) Histamine-1 Receptor Antagonist Start: 01-21-2016 cetirizine (ZYRTEC) 10 mg tablet Take 10 mg by mouth. 01/21/2016 Active Comment on above: Take 10 mg by mouth. chlorthalidone 50 mg oral tablet (7 sources) Thiazide-like Diuretic Start: 08-08-2024 take 1 tablet by mouth once daily chlorthalidone (HYGROTON) 50 MG tablet Take 1 tablet (50 mg total) by mouth daily. 30 tablet 2 08/08/2024 Active cholecalciferol 0.025 mg oral tablet (19 sources) Vitamin D Start: 01-31-2022 take 1 [...] Active Start: 10-19-2017 take 1 capsule by [facility] every week Cholecalciferol, Vitamin D3, 10,000 unit cap 10,000 unit oral capsule once weekly 0 10/19/2017 Active Comment on above: 10,000 unit oral cap kyaw once weekly Cosentyx UnoReady 300 MG/2ML solution auto-injector (1 source) Start: 02-25-2024 Cosentyx UnoReady 300 MG/2ML solution auto-injector 02/25/2024 Active cyclobenzaprine (20 sources) Muscle Relaxant Start: 02-01-2023 cyclobenzaprine HCl (CYCLOBENZAPRINE ORAL) Take by mouth. 02/01/2023 Active Start: 02-01-2023 cyclobenzaprin e HCl (CYCLOBENZAPRINE ORAL) Take by mouth. 0 02/01/2023 Active take 2 tablets by [facility] twice daily as needed for muscle spasms cyclobenzaprine (FLEXERIL) 5 mg tablet Take 2 tablets (10 mg total) by mouth 2 (two) times a day as needed for muscle spasms. Active Comment on above: Take by mouth. doxycycline hyclate 100 mg oral capsule (12 sources) Tetracycline-class Drug Start: 04-24-20 doxycycline hyclate (VIBRAMYCIN) 100 mg capsule Take 100 mg by mouth. 04/24/2018 Active Comment on above: Take 100 mg by mouth . DULoxetine 30 mg delayed release oral capsule (20 sources) Serotonin and Norepinephrine Reuptake Inhibitor Start: 06-02-20 End: 07-10-20 take 1 capsule by mouth in the morning DULoxetine (CYMBALTA) 30 mg capsule Take 1 capsule (30 mg total) by mouth in the morning. 30 capsule 2 07/10/2024 Active Start: 05-29-2022 End: 11-28-2023 DULoxetine (CYMBALTA) 60 mg capsule Take 60 mg by mouth. 05/29/2022 Active Comment on above: Take 60 mg by mouth. 1 ml enoxaparin sodium 150 mg/ml prefilled syringe (1 source) Low Molecular Weight Heparin Start: 3 Enoxaparin Sodium 150 MG/ML solution prefilled syringe 12/13/2022 Active escitalopram 5 mg oral tablet (12 sources) Serotonin Reuptake Inhibitor Start: 8 escitalopram oxalate (LEXAPRO) 5 mg tablet 06/13/2018 Active esomeprazole 20 mg granules for oral suspension (20 sources) Proton Pump Inhibitor Start: 4 Esomeprazole Magnesium 20 mg packet Take 40 mg by mouth. 11/14/2023 Active Comment on above: Take 40 mg by mouth. ferrous sulfate 325 mg oral tablet (20 sources) Start: 4 take 1 tablet by mouth once daily at breakfast ferrous sulfate (IRON) 325 (65 FE) mg tablet Take 1 tablet (325 mg total) by mouth daily with breakfast. 02/22/2024 Active Start: 01-31-2022 End: 11-28-2023 take 1 tablet by mouth once daily Ferrous Sulfate (Iro n) 325 mg (65 mg iron) Tablet Active 325 MG PO Daily January 31, 2022 12:00am Start: 10-29-2019 take 1 tablet by christina th twice daily ferrous sulfate 325 mg (65 mg iron) tablet Take 1 tablet by mouth twice daily. 60 tablet 5 10/29/2019 Active Comment on above: Take 1 tablet by christina th twice daily. fexofenadine hydrochloride 180 mg oral tablet (16 sources) Histamine-1 Receptor Antagonist Start: 06-27-20 take 1 tablet by mouth in the morning fexofenadine (CANDELARIO) 180 mg tablet Take 1 tablet (180 mg total) by mouth in the morning. 30 tablet 2 06/27/2024 Active FLUoxetine 40 mg oral capsule (12 sources) Serotonin Reuptake Inhibitor Start: 06-16-20 16 FLUoxetine HCl (PROZAC) 40 mg capsule 06/16/2016 Active Comment on above: TAKE ONE CAPSULE BY MOUTH ONCE DAILY fluticasone propionate 0.05 mg/actuat metered dose nasal spray (16 sources) Corticosteroid Start: 06-27-20 24 take 1 spray(s) nasal route in the morning fluticasone propionate (FLONASE) 50 mcg/actuation nasal spray Administer 1 spray into each nostril in the morning. 15.8 mL 2 06/27/2024 Active folic acid 1 mg oral tablet (20 sources) Start: 02-15-20 folic acid (FOLVITE) 1 mg tablet 02/15/2024 Active FOLIC ACID ORAL Take by mouth. Active folic acid 2.5 mg / pyridoxine 25 mg / vitamin b12 2 mg oral tablet (1 source) Vitamin B12 Start: 12-20-2023 End: 12-14-2024 folic ivmt-bbehnwfnib-vkxmlkjikivpla (Folbic) 2.5-25-2 MG tablet Take 1 tablet by mouth in the morning. 12/20/2023 12/14/2024 Active folic acid 2.5 mg / vitamin b12 2 mg / vitamin b6 25 mg oral tablet (20 sources) Vitamin B12 Start: 12-20-2023 End: 12-14-2024 take 1 tablet by mouth in the morning folic acid-vit B6-vit B12 (FOLBIC) 2.5-25-2 mg tablet Take 1 tablet by mouth in the morning. 12/20/2023 12/14/2024 Active Start: 12-20-2023 End: 12-14-2024 take 1 tablet by mouth once daily folic acid-Vit B6-Vit B12 (FOLTX) 2.5-25-2 mg tab Indications: MTHFR mutation Take 1 tablet by mouth once daily. 90 tablet 3 12/20/2023 12/14/2024 Active Start: 10-28-2020 End: 12-20-2023 [id number] calcium-B6 (FOLTX) 2-1.13-25 mg tab Indications: Factor V Leiden (HCC) Take 1 tablet by mouth once daily. 90 tablet 3 10/28/2020 12/20/2023 Discontinued Start: 10-28-2020 H49-qapygqixde te calcium-B6 (FOLTX) 2-1.13-25 mg tab Indications: Factor V Leiden (HCC) Take 1 tablet by mouth once daily. 90 tablet 3 10/28/2020 Active Comment on above: Take 1 tablet by christina th once daily. 0.8 ml fondaparinux sodium 12.5 mg/ml prefilled syringe (8 sources) Factor Xa Inhibitor Start: 10-11-2 024 inject 0.8 mL by subcutaneous injection every twenty-four hours fondaparinux (ARIXTRA) 10 mg/0.8 mL syrg Indications: Factor V Leiden (HCC) , MTHFR mutation , Primary hypercoagulable state (HCC) INJECT 0.8ML UNDER THE SKIN EVERY 24 HOURS 24 mL 3 06/13/2024 Active Start: 12-20-2023 End: 04-18-2024 inject 0.8 mL by subcutaneous injection every twenty-four hours fondaparinux (ARIXTRA) 10 mg/0.8 mL syrg Indications: Factor V Leiden (HCC) , MTHFR mutation , Primary hypercoagulable state (HCC) Inject 0.8 mL subcutaneously every 24 hours. 24 mL 3 12/20/2023 04/18/2024 Comment on above: Inject 0.8 mL subcut aneously every 24 hours. gabapentin 300 mg oral capsule (20 sources) Anti-epileptic Agent Start: End: take 1 capsule by mouth three times daily gabapentin (NEURONTIN) 300 mg capsule Indications: Neuropathy TAKE 1 CAPSULE BY MOUTH 3 TIMES A DAY 90 capsule 07/29/2024 Active Start: 01-31-2022 take 600 mg by mouth once daily at bedtime Gabapentin Active 600 MG PO Daily at bedtime January 31, 2022 12:00am Comment on above: Take 300 mg by mouth . guaifenesin/pseudoephedrne H Cl (GUAIFENESIN 600/PSE 120 ORAL) (12 sources) guaifenesin/pseu doephedrne HCl (GUAIFENESIN 600/PSE 120 ORAL) Take by mouth. Active guaifenesin/pseu doephedrne HCl (GUAIFENESIN 600/PSE 120 ORAL) Take by mouth. 0 Active Comment on above: Take by mouth. hydrOXYzine pamoate 50 mg oral capsule (20 sources) Antihistamine Start: 05-27-2022 End: 09-11-2024 take 1 capsule by mouth three times daily as needed for anxiety hydrOXYzine (VISTARIL) 50 mg capsule Take 1 capsule (50 mg total) by mouth 3 (three) times a day as needed for anxiety. 180 capsule 09/11/2024 Active Start: 05-27-2022 End: 11-28-2023 hydrOXYzine pamoate (VISTARI L) 50 mg capsule Take 50 mg by mouth. 05/27/2022 Active Start: 01-31-2022 take 25 mg by mouth four times daily Hydroxyzine Pamoate Active 25 MG PO Four times daily January 31, 2022 12:00am take 1 tablet by christina th three times daily hydrOXYzine HCl (Atarax) 25 MG tablet Take 1 tablet 3 times a day by oral route. Active Comment on above: Take 50 mg by mouth. 24 hr isosorbide mononitrate 30 mg extended release oral tablet (20 sources) Nitrate Vasodilator Start: take 0.5 tablet by mouth once daily isosorbide mononitrate (IMDUR) 30 mg 24 hr tablet Take 0.5 tablets (15 mg total) by mouth daily. 30 tablet 2 03/17/2024 Active Start: 03-17-2024 End: 10-08-2023 take 0.5 tablet by mouth once daily isosorbide mononitrate (IMDUR) 30 mg 24 hr tablet Take 0.5 tablets (15 mg total) by mouth daily. 30 tablet 2 03/17/2024 Active Start: 09-01-2020 isosorbide mon onitrate ER (IMDUR) 30 mg 24 hr tablet [...] by mouth daily . 0 06/01/2020 Active Comment on above: TAKE 1 2 (ONE HALF) TABLET BY MOUTH ONCE DAILY isosorbide dinitrate 30 mg oral tablet (20 sources) Nitrate Vasodilator Start: 02-22-2024 isosorbide dinitrate [...] bedtime. 0 04/13/2022 10/19/2023 Discontinued (Dose adjustment) lamoTRIgine (Diamond ICtal) 100 MG tablet 1 (one) time each day at the same time. Active Comment on above: Take 50 mg by mouth. levothyroxine sodium 0.05 mg oral tablet (20 sources) l-Thyroxine Start: 08-14-20 End: 06-30-20 take 1 tablet by mouth once daily in the morning levothyroxine (SYNTHROID, LEVOTHROID) 50 MCG tablet take 1 tablet by mouth every morning 30 tablet 2 06/30/2024 Active Comment on above: TAKE ONE TABLET BY M OUTH ONCE DAILY lidocaine hydrochloride 30 mg/ml topical cream (13 sources) Antiarrhythmic, Amide Local Anesthetic Start: 06-21-20 18 Lidocaine HCl 3 % crea 06/21/2018 Active Start: 06-21-2018 lidocaine HCL 3 % Crea APPLY TO THE AFFECTED AREA(S) BY TOPICAL ROUTE 2 TIMES PER DAY . 0 06/21/2018 Active lisinopril 10 mg oral tablet (13 sources) Angiotensin Converting Enzyme Inhibitor Start: 06-13-2018 lisinopril (ZESTRIL, PRINIVIL) 10 mg tablet 06/13/2018 Active loratadine 10 mg oral tablet (12 sources) Start: 04-25-2018 loratadine (CLARITIN) 10 mg tablet 04/25/2018 Active magnesium oxide 400 mg oral tablet (20 sources) Start: 05-15-2024 take 1 tablet by mouth in the morning magnesium oxide (MAGOX) 400 mg tablet Indications: Muscle spasm Take 1 tablet (400 mg total) by mouth in the morning. 30 tablet 2 05/15/2024 Active meclizine hydrochloride 25 mg chewable tablet (16 sources) Antiemetic Start: 06-27-2024 meclizine (ANTIVERT) 25 mg tablet Chew 1 tablet (25 mg total) and swallow 3 (three) times a day as needed for dizziness. 90 tablet 1 06/27/2024 Active melatonin 10 mg oral tablet (20 sources) take 1 tablet by mouth in the morning melatonin 10 mg tablet Take 10 mg by mouth in the morning. Active metoclopramide 10 mg oral tablet (10 sources) Dopamine-2 Receptor Antagonist Start: 12-10-2023 metoclopramide HCl (REGLAN) 10 mg tablet 12/10/2023 Active metoprolol tartrate 50 mg oral tablet (20 sources) beta-Adrenergic Senthil Start: 03-17-2024 take 1 tablet by mouth in the morning, then take 1 tablet by mouth at bedtime metoprolol tartrate (LOPRESSOR) 50 mg tablet Indications: Essential hypertension Take 1 tablet (50 mg total) by mouth in the morning and 1 tablet (50 mg total) before bedtime. 180 tablet 1 03/17/2024 Active Start: 10-09-2022 End: 11-28-2023 take 1 tablet by mouth in the morning, then take 1 tablet by mouth at bedtime metoprolol tartrate (LOPRESSOR) 50 mg tablet Indications: Essential hypertension Take 1 tablet (50 mg total) by mouth in the morning and 1 tablet (50 mg total) before bedtime. 180 tablet 1 10/09/2022 11/28/2023 Discontinued Start: 07-31-2016 metoprolol tar trate, short acting, (LOPRESSOR) 25 mg tablet Take 12.5 mg by mouth. 07/31/2016 Active Start: 07-31-2016 take 25 mg by mouth twice poncho y Metoprolol Tartrate Active 25 MG PO Twice daily January 31, 2022 12:00am Comment on above: Take 12.5 mg by mout h. minocycline 100 mg oral capsule (1 source) Tetracycline-class Drug Start: 02-15-20 minocycline 100 MG capsule 02/15/2024 Active mupirocin 0.02 mg/mg topical ointment (12 sources) RNA Synthetase Inhibitor Antibacterial Start: 03-14-20 mupirocin (BACTROBAN) 2 % ointment Apply 1 application to affected area. 03/14/2017 Active Comment on above: Apply 1 application to affected area. omeprazole 20 mg delayed release oral capsule (20 sources) Proton Pump Inhibitor Start: 05-16-20 End: 07-20-20 take 1 capsule by mouth once daily in the morning omeprazole (PriLOSEC) 20 mg capsule Indications: Gastroesophageal reflux disease, unspecified whether esophagitis present TAKE 1 CAPSULE BY MOUTH EVERY MORNING AND TAKE 1 CAPSULE BEFORE BEDTIME 60 capsule 1 07/20/2024 Active Start: 01-31-2022 End: 11-14-2023 take 20 mg by mouth once daily in the morning Omeprazole Active 20 MG PO Every morning January 31, 2022 12:00am Comment on above: Take 20 mg by mouth once daily. ondansetron 4 mg disintegrating oral tablet (20 sources) Serotonin-3 Receptor Antagonist Start: 05-15-20 take 1 tablet by mouth every eight hours as needed for nausea and vomiting ondansetron ODT (ZOFRAN ODT) 4 mg disintegrating tablet Dissolve 1 tablet (4 mg total) on tongue every 8 (eight) hours as needed for nausea or vomiting. 20 tablet 05/15/2024 Active OZEMPIC 0.25 mg or 0.5 mg (2 mg/3 mL) pen (4 sources) Start: 03-20-20 OZEMPIC 0.25 mg or 0.5 mg (2 mg/3 mL) pen Inject 0.25 mg subcutaneously one time a week. 03/20/2024 Active prazosin 2 mg oral capsule (20 sources) alpha-Adrenergic Senthil Start: 10-19-19 End: 09-11-19 take 2 capsules by mouth once daily prazosin (MINIPRESS) 2 mg capsule Take 2 capsules (4 mg total) by mouth nightly. 120 capsule 09/11/2024 Active Start: 05-29-2022 End: 10-19-2023 take 1 capsule by mouth once daily at bedtime prazosin (MINIPRESS) 1 mg capsule Take 1 capsule (1 mg total) by mouth once daily at bedtime. 0 05/29/2022 10/19/2023 Discontinued (Dose adjustment) Comment on above: Take 2 mg by mouth. rimegepant 75 mg disintegrating oral tablet (20 sources) Start: 2 End: 4 NURTEC ODT 75 mg tablet,disintegrati ng DISSOLVE 1 TABLET ON THE TONGUE EVERY OTHER DAY 15 tablet 2 06/11/2024 Active rivaroxaban 20 mg oral tablet (6 sources) Factor Xa Inhibitor Start: 2 take 1 tablet by mouth once daily Rivaroxaban (Xarelto) 20 mg tablet Active 20 MG PO Daily January 31, 2022 12:00am 1 ml secukinumab 150 mg/ml prefilled syringe (20 sources) Interleukin-17A Antagonist secukinumab (COSENTYX, 2 SYRINGES,) 150 mg/mL syringe Inject 300 mg under the skin every 28 days. Active inject 150 mg by sub cutaneous injection once secukinumab (COSENTYX) 150 mg/mL injecti on Inject subcutaneously one time only. Active semaglutide (OZEMPIC) 0.25 m g or 0.5 mg (2 mg/3 mL) pen injector (12 sources) Start: 03-20-2024 End: 07-01-2024 semaglutide (OZEMPIC) 0.25 m g or 0.5 mg (2 mg/3 mL) pen injector Indications: Type 2 diabetes mellitus with other specified complication, unspecified whether skilled nursing insulin use ([facility]) Inject 0.25 mg under the skin every 7 days. 0.25 mg once weekly for 4 weeks, then increase to 0.5 mg once weekly for 4 weeks. 3 mL 1 03/20/2024 07/01/2024 Discontinued (Dose adjustment) Start: 03-20-2024 semaglutide (O ZEMPIC) 0.25 mg or 0.5 mg (2 mg/3 mL) pen injector Indications: Type 2 diabetes mellitus with other specified complication, unspecified whether skilled nursing insulin use ([facility]) Inject 0.25 mg under the skin every 7 days. 0.25 mg once weekly for 4 weeks, then increase to 0.5 mg once weekly for 4 weeks. 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 3 mL 1 07/01/2024 Active spironolactone 25 mg oral tablet (20 sources) Aldosterone Antagonist Start: 09-17-2024 take 1 tablet by mouth once daily in the morning spironolactone (ALDACTONE) 25 mg tablet TAKE 1 TABLET BY MOUTH EVERY MORNING 90 tablet 1 09/17/2024 Active Start: 02-27-2024 take 1 tablet by christina once daily spironolactone (Aldactone) 50 MG tablet Indications: Hydradenitis Take 1 tablet (50 mg) by mouth Daily 30 tablet 02/27/2024 Active Start: 05-12-2020 End: 09-17-2024 take 1 tablet by mouth once daily in the morning spironolactone (ALDACTONE) 25 mg tablet take 1 tablet by mouth every morning 30 tablet 2 06/08/2024 09/17/2024 Discontinued sucralfate 1000 mg oral tablet (19 sources) Aluminum Complex Start: 01-31-2022 take 1 [...] mouth. tetracycline hydrochloride 500 mg oral capsule (12 sources) Tetracycline-class Antimicrobial Start: 09-29-2020 tetracycline (SUMYCIN) 500 mg cap 09/29/2020 Active Comment on above: TAKE 1 CAPSULE BY MO RUST EVERY 12 HOURS ON AN EMPTY STOMACH triamcinolone acetonide 5 mg/ml topical cream (12 sources) Corticosteroid Start: 04-03-2017 triamcinolone acetonide (KENALOG) 0.5 % cream 04/03/2017 Active vitamin b12 1 mg oral tablet (20 sources) Vitamin B12 Start: 02-22-2024 cyanocobalamin 1000 MCG tablet 02/22/2024 Active Completed/Discontinued Medications Medication Drug Class(es) Dates Sig (Normalized) Sig (Original) apixaban 5 mg oral tablet (18 sources) Factor Xa Inhibitor Start: 3 End: 4 apixaban (ELIQUIS) 5 mg tab(s) Take 5 mg by mouth. 0 12/29/2022 12/20/2023 Discontinued Comment on above: Take 5 mg by mouth. hydroCHLOROthiazide 25 mg oral tablet (20 sources) Thiazide Diuretic Start: 4 End: 4 take 1 tablet by mouth once daily hydroCHLOROthiazide (HYDRODIURIL) 25 mg tablet take 1 tablet by mouth daily 90 tablet 1 04/10/2024 08/08/2024 Discontinued (Alternate therapy) Start: 10-11-2020 End: 11-28-2023 take 1 tablet by mouth once daily hydroCHLOROthiazide (HYDRODIURIL) 25 mg tablet take 1 tablet by mouth daily 90 tablet 1 04/10/2024 Active Comment on above: Take 25 mg by mouth once daily. lansoprazole 3 mg/mL in sodium bicarbonate (1 source) Start: End: take 10 mL by mouth in the morning lansoprazole 3 mg/mL in sodium bicarbonate Take 10 mL (30 mg total) by mouth in the morning. 300 mL 2 11/14/2023 11/14/2023 Discontinued (Alternate therapy) 3 ml liraglutide 6 mg/ml pen injector (20 sources) GLP-1 Receptor Agonist Start: End: liraglutide (VICTOZA 2-ALFIE) 0.6 mg/0.1 mL (18 mg/3 mL) pen injector Indications: History of insulin resistance , Prediabetes Inject 0.1 mL (0.6 mg total) under the skin in the morning. 3 mL 1 10/13/2023 11/28/2023 Discontinued Start: 03-14-2023 liraglutide (V ICTOZA) 0.6 mg/ 0.1 ml subcutaneous pen injector Inject 0.6 mg subcutaneously. 03/14/2023 Active Start: 03-14-2023 Victoza 18 MG/ 3ML injection 1 (one) time each day at the same time. 03/14/2023 Active Start: 03-14-2023 End: 10-13-2023 liraglutide (VICTOZA 2-ALFIE) 0.6 mg/0.1 mL (18 mg/3 mL) pen injector Inject 0.3 mL (1.8 mg total) under the skin in the morning. 0 03/14/2023 10/13/2023 Discontinued (Reorder) Comment on above: Inject 0.6 mg subcut aneously. SUMAtriptan 50 mg oral tablet (1 source) [...] Chronic Attention-deficit, conduct, and disruptive behavior disorders (5 sources) Attention deficit hyperactivity disorder, combined type; [...] Complications of surgical procedures or medical care (20 sources) Postprocedural hypothyroidism; Translations: [History of subtotal thyroidectomy] Onset: 015 01-13-2022 Chronic Conditions associated with dizziness or vertigo (3 sources) Dizziness; Translations: [Dizziness and giddiness] Onset: 06-27-2024 Episodic Deficiency and other anemia (7 sources) Iron deficiency anemia; Translations: [Iron deficiency anemia, unspecified] Onset: 11-29-2023 Episodic Diabetes mellitus with complications (1 source) Type 2 diabetes mellitus; Translations: [Type 2 diabetes mellitus with other specified complication] 07-01-2024 Chronic Diabetes mellitus without complication (20 sources) Diabetes [...] intermediate teacher (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 therapy; Translations: [OTH PENITENTIARY CURRENT DRUG THERAPY] Onset: Episodic Other aftercare (1 source) 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 helper 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 (current) use of anticoagulants; Translations: [CUPROUS CHLORIDE HELPER CURRNT USE ANTICOAGULANTS] Onset: Episodic Other and ill-defined heart disease (1 source) Mass of thoracic structure; Translations: [Other ill-defined heart diseases] 11-14-2023 Chronic Other and ill-defined heart disease (2 sources) Other ill-defined heart diseases; Translations: [Other ill-defined heart diseases] Onset: Chronic Other connective tissue disease (1 source) Spasm; Translations: [Other muscle spasm] 09-01-2024 Episodic Other diseases of veins and lymphatics [...] PAIN] Onset: Chronic Other nervous system disorders (20 sources) Chronic pain; Translations: [Other chronic pain] Onset: 01-13-2022 Chronic Other nervous system disorders (3 sources) Neuropathy; Translations: [Polyneuropathy, unspecified] 06-07-2024 Chronic Other nervous system disorders (6 sources) Acute postoperative pain; Translations: [Other acute postprocedural pain] 02-13-2022 Episodic Other nervous system disorders (2 sources) Anesthesia of skin; Translations: [Anesthesia of skin] Onset: Episodic Other nervous system disorders (2 sources) Paresthesia of skin; Translations: [Paresthesia of skin] Onset: Episodic Other nervous system disorders (2 sources) Paresthesia of hand ; Translations: [Anesthesia of skin] 09-06-2024 Episodic Other nutritional; endocrine; and metabolic disorders [...] nutritional; endocrine; and metabolic disorders (20 sources) Insulin resistance; Translations: [Insulin resistance] Onset: 014 10-08-2023 Chronic Other nutritional; endocrine; and metabolic disorders (20 sources) Metabolic disease; Translations: [Metabolic disorder, unspecified] [...] metabolic disease] 10-08-2023 Episodic Other skin disorders (2 sources) Generalized hyperhidrosis; Translations: [Generalized hyperhidrosis] Onset: Episodic Other skin disorders (2 sources) Excessive sweating; Translations: [Generalized hyperhidrosis] 09-06-2024 Episodic Residual codes; unclassified (20 sources) Obstructive [...] [OTHER AMNESIA] Onset: Episodic Residual codes; unclassified (1 source) Edema of left lower limb; Translations: [Localized edema] 08-11-2024 Episodic Screening and history of mental health and substance abuse codes (1 source) Personal history of nicotine dependence; Translations: [PERSONAL HISTORY OF NICOTINE DEPEND] Onset: Episodic Spondylosis; intervertebral disc disorders; other back problems (20 sources) Other spondylosis with radiculopathy, lumbar region; Translations: [Spondylosis] Onset: 01-13-2022 Chronic Spondylosis; intervertebral disc disorders; other back problems (19 sources) Cervicalgia; Translations: [Radiculopathy, cervical region] Onset: Episodic Thyroid disorders (20 sources) Autoimmune thyroiditis; Translations: [Autoimmune thyroiditis] Onset: 014 Resolve d: 017 03-14-2017 Chronic Unclassified (1 source) LOW BACK PAIN, UNSPECIFIED; Translations: [LOW BACK PAIN, UNSPECIFIED] Onset: Unclassified (1 source) gastroesophageal reflux, nausea, vomiting Onset: 024 Unclassified (1 source) Medication Problem Onset: Unclassified (1 source) wellness Onset: Unclassified (1 source) Pre-op Exam Onset: 024 Unclassified (1 source) New Patient Onset: 024 Unclassified (1 source) Insulin resistance, unspecified; Translations: [Insulin resistance, unspecified] Onset: 022 Unclassified (1 source) Establish Care Onset: Past or Other Problems Problem Classification Problem Date Documented Da te Episodic/Chronic Abdominal pain (2 sources) Unspecified abdominal pain; Translations: [Unspecified abdominal pain] Onset: 05-15-2024 Episodic Administrative/social admission (20 sources) Referral statuses; Translations: [Persons encountering health services in other specified circumstances] Onset: 08-23-2017 08-23-2017 Episodic Cardiac dysrhythmias (20 sources) Tachycardia, unspecified; Translations: [Tachycardia] Onset: 04-09-2015 Episodic Diabetes mellitus without complication (20 sources) Prediabetes; Translations: [Prediabetes] Onset: 01-21-2016 10-08-2023 Episodic Genitourinary symptoms and ill-defined conditions (2 sources) Dysuria; Translations: [Dysuria] Onset: 05-15-2024 Episodic Inflammatory diseases of female pelvic organs (20 sources) Bacterial vaginosis; Translations: [Acute vaginitis] Onset: 07-11-2017 07-11-2017 Episodic Malaise and fatigue (20 sources) Fatigue; Translations: [Other fatigue] Onset: 03-14-2017 08-02-2020 Episodic Mood disorders (20 sources) Mood disorders; Translations: [DEPRESSION UNSPECIFIED] Onset: 10-08-2023 Resolved: 03-26-2024 10-08-2023 Nausea and vomiting (4 sources) Nausea and vomiting; Translations: [Nausea with vomiting, unspecified] Onset: 11-07-2023 10-08-2023 Episodic Nonspecific chest pain (3 sources) Chest discomfort; Translations: [Other chest pain] Onset: 11-14-2023 11-14-2023 Episodic Other connective tissue disease (2 sources) Other muscle spasm; Translations: [Other muscle spasm] Onset: 05-15-2024 Episodic Other connective tissue disease (2 sources) Other specified soft tissue disorders; Translations: [Other specified soft tissue disorders] Onset: 05-15-2024 Episodic Other connective tissue disease (1 source) Leg swelling symptom Onset: 05-15-2024 Episodic Other female genital disorders (20 sources) Vaginal odor; Translations: [Other specified noninflammatory disorders of vagina] Onset: 07-11-2017 07-11-2017 Episodic Other gastrointestinal disorders (20 sources) Diarrhea; Translations: [Diarrhea, unspecified] Onset: 02-15-2021 [...] nutritional; endocrine; and metabolic disorders (20 sources) History of diabetes mellitus type 2; Translations: [Personal history of other endocrine, nutritional and metabolic disease] Onset: 03-15-2017 03-15-2017 Episodic Other nutritional; endocrine; and metabolic disorders (20 sources) H/O: thyroid disorder; Translations: [Personal history [...] Onset: 10-24-2022 11-13-2023 Episodic Other skin disorders (20 sources) Hidradenitis suppurativa; Translations: [Hidradenitis suppurativa] Onset: 07-06-2014 08-02-2020 Episodic Other skin disorders (2 sources) Hidradenitis suppurativa; Translations: [Hidradenitis suppurativa] Onset: 01-13-2022 Episodic Other upper respiratory disease (20 sources) Hoarse; Translations: [Dysphonia] Onset: 09-25-2018 09-25-2018 Episodic Other upper respiratory infections (20 sources) Sore throat symptom; Translations: [Acute pharyngitis, unspecified] Onset: 07-11-2017 07-11-2017 Episodic Otitis media and related conditions (20 sources) Otitis media; Translations: [Unspecified nonsuppurative otitis [...] Resolved: 01-04-2023 10-08-2023 Episodic Residual codes; unclassified (20 sources) Hereditary disorder of endocrine system; Translations: [Genetic susceptibility to other disease] Onset: 03-14-2017 Resolved: 03-15-2017 03-15-2017 Episodic Residual codes; unclassified (1 source) Family history of ischemic heart disease and other diseases of the circulatory system; Translations: [Family history of ischemic heart disease and other diseases of the circulatory system] Onset: 05-15-2024 Episodic Residual codes; unclassified (1 source) Personal history of other specified conditions; Translations: [Personal history of other specified conditions] Onset: 10-08-2023 Episodic Skin and subcutaneous tissue infections (20 sources) Abscess of groin; Translations: [Cutaneous abscess of groin] Onset: 03-14-2017 Resolved: 05-03-2017 05-03-2017 Episodic Urinary tract infections (20 sources) Acute cystitis; Translations: [Acute cystitis without hematuria] Onset: 04-01-2017 Resolved: 05-03-2017 05-03-2017 Episodic Viral infection (20 sources) Disease caused by 2019-nCoV; Translations: [COVID-19] Onset: 07-01-2021 01-13-2022 Episodic Results Test Name Value Interpretation Reference Range Facility CT CTA CAROTIDon 09-04-[address] CTA CAROTID CLINICAL INFORMATION: Neck pain. Arterial thrombus. DVT. Numbness and tingling into the hands COMPARISON: Thyroid ultrasound 03/27/2024 PROCEDURE: CT angiogram of the neck with IV contrast. Sagittal and coronal reformatted images with 3-D Maximum intensity projection reconstructions constructed under concurrent physician supervision on a independent workstation for evaluation of carotid and vertebral arteries. Automated exposure control was utilized. The [place] Symptomatic carotid Endarterectomy Trial (NASCET) method for calculating the degree of stenosis was utilized for stenosis measurements. 3-D reformatted images confirm the source data findings. stenosis is calculated as compared to the distal lumen of the ICA (NASCET). All CT scans at this facility dose modulation, iterative reconstruction, and/or weight based dosing when appropriate to reduce radiation dose to as low as reasonably achievable. FINDINGS: No acute findings at the partially visualized aortic arch. The subclavian arteries are patent. The vertebral arteries originate from the subclavian arteries and are normal in course and caliber. The common carotid arteries are within normal limits. Normal carotid artery bifurcations. The internal carotid arteries are normal in course and caliber no significant stenosis. No aneurysm. No dissection. Prior left hemithyroidectomy. Partially visualized lung apices are unremarkable. No acute osseous abnormalities. IMPRESSION: No acute findings. No significant carotid or vertebral artery stenosis. Finalized by Andrey Clemente MD on 09/04/2024 4:34 PM [facility] CTA Carotid artery W contrkurt arrieta Margie 09-04-2024 CLINICAL INFORMATION: Neck pain. Arterial thrombus. DVT. Numbness and tingling into the hands COMPARISON: Thyroid ultrasound 03/27/2024 PROCEDURE: CT angiogram of the neck with IV contrast. Sagittal and coronal reformatted images with 3-D Maximum intensity projection reconstructions constructed under concurrent physician supervision on a independent workstation for evaluation of carotid and vertebral arteries. Automated exposure control was utilized. The [place] Symptomatic carotid Endarterectomy Trial (NASCET) method for calculating the degree of stenosis was utilized for stenosis measurements. 3-D reformatted images confirm the source data findings. stenosis is calculated as compared to the distal lumen of the ICA (NASCET). All CT scans at this facility dose modulation, iterative reconstruction, and/or weight based dosing when appropriate to reduce radiation dose to as low as reasonably achievable. FINDINGS: No acute findings at the partially visualized aortic arch. The subclavian arteries are patent. The vertebral arteries originate from the subclavian arteries and are normal in course and caliber. The common carotid arteries are within normal limits. Normal carotid artery bifurcations. The internal carotid arteries are normal in course and caliber no significant stenosis. No aneurysm. No dissection. Prior left hemithyroidectomy. Partially visualized lung apices are unremarkable. No acute osseous abnormalities. IMPRESSION: No acute findings. No significant carotid or vertebral artery stenosis. Finalized by Andrey Clemente MD on 09/04/2024 4:34 PM [facility] Andrey Clemente MD - 09/04/2024 CLINICAL INFORMATION: Neck pain. Arterial thrombus. DVT. Numbness and tingling into the hands COMPARISON: Thyroid ultrasound 03/27/2024 PROCEDURE: CT angiogram of the neck with IV contrast. Sagittal and coronal reformatted images with 3-D Maximum intensity projection reconstructions constructed under concurrent physician supervision on a independent workstation for evaluation of carotid and vertebral arteries. Automated exposure control was utilized. The [place] Symptomatic carotid Endarterectomy Trial (NASCET) method for calculating the degree of stenosis was utilized for stenosis measurements. 3-D reformatted images confirm the source data findings. stenosis is calculated as compared to the distal lumen of the ICA (NASCET). All CT scans at this facility dose modulation, iterative reconstruction, and/or weight based dosing when appropriate to reduce radiation dose to as low as reasonably achievable. FINDINGS: No acute findings at the partially visualized aortic arch. The subclavian arteries are patent. The vertebral arteries originate from the subclavian arteries and are normal in course and caliber. The common carotid arteries are within normal limits. Normal carotid artery bifurcations. The internal carotid arteries are normal in course and caliber no significant stenosis. No aneurysm. No dissection. Prior left hemithyroidectomy. Partially visualized lung apices are unremarkable. No acute osseous abnormalities. IMPRESSION: No acute findings. No significant carotid or vertebral artery stenosis. Finalized by Andrey Clemente MD on 09/04/2024 4:34 PM [facility] Carot[facility] W contras t IVOrdered By: Andrey Clemente on 09-04-2024 [facility] Work Phone: XR LUMBAR SPINE AP, LATERAL, FLEXION AND EXTENSION ONLYon 09-04-2024 XR LUMBAR SPINE AP, LATERAL, FLEXION AND EXTENSION ONLY XR LUMBAR SPINE AP, LATERAL, FLEXION AND EXTENSION ONLY XR LUMBAR SPINE AP, LATERAL, FLEXION AND EXTENSION ONLY HISTORY: Chronic low back pain, lumbar stenosis COMPARISON: CT abdomen pelvis 05/16/2024, lumbar spine radiographs 11/20/2018 FINDINGS: Vertebral body heights appear well-maintained. Intervertebral disc space narrowing at L5-S1. Approximately 1.5 cm anterolisthesis at L5-S1, which does not significantly change between flexion and extension views. Bilateral L5 pars defects. IMPRESSION: * Development of Grade 2 (approximately 1.5 cm) anterolisthesis at L5-S1, which does not significantly change between flexion/extension views secondary to bilateral L5 pars defects. Approved by Resident: Heriberto Glez MD on 09/04/2024 2:05 PM I, Onofre Pryor MD have personally reviewed the image(s) and agree with and/or edited the report Finalized by Onofre Pryor MD on 09/04/2024 2:25 PM Normal [facility] BASIC METABOLIC PANLon 08-25 Anion gap [Moles/Vol] 10 mmol/L Normal 5-15 [facility] Comment on above: Performed By: #### B MP #### [facility] ([id number]) [address], [address] [place] [address] Calcium [Mass/Vol] 9.2 mg/dL Normal 8.5-10.5 [facility] Comment on above: Performed By: #### B MP #### [facility] ([id number]) [address], [address] [place] [address] Chloride [Moles/Vol] 95 mmol/L Low 98-109 [facility] Comment on above: Performed By: #### B MP #### [facility] ([id number]) [address], [address] [address] [place] [address] CO2 [Moles/Vol] 30 mmol/L Normal 22-32 [facility] Comment on above: Performed By: #### B MP #### [facility] ([id number]) [address], [address] [place] [address] Creatinine [Mass/Vol] 0.94 mg/dL Normal 0.40-1.00 [facility] Comment on above: Result Comment: METH OD TRACEABLE TO IDMS STANDARD Performed By: #### B MP #### [facility] ([id number]) [address], [address] [place] [address] GFR/1.73 sq M.predicted among non-blacks MDRD (S/P/Bld) [Vol rate/Area] 82 mL/min/{1.73_m2} Normal >59 [facility] Comment on above: Result Comment: Reported eGFR is based on the CKD-EPI 2020 equation that does not use a race coefficient. Performed By: #### B MP #### [facility] ([id number]) [address], [address] [place] [address] Glucose [Mass/Vol] 143 mg/dL High 65-99 [facility] Comment on above: Performed By: #### B MP #### [facility] ([id number]) [address], [address] [place] [address] Potassium [Moles/Vol] 3.6 mmol/L Normal 3.5-5.0 [facility] Comment on above: Performed By: #### B MP #### [facility] ([id number]) [address] [place] [address] Sodium [Moles/Vol] 135 mmol/L Normal 134-146 [facility] Comment on above: Performed By: #### B MP #### [facility] ([id number]) [address], [address] [place] [address] Urea nitrogen [Mass/Vol] 17 mg/dL Normal 5-23 [facility] Comment on above: Performed By: #### B MP #### [facility] ([id number]) [address], [address] [place] [address] CBC AND AUTO DIFFon 10-25-20 24 ABSOLUTE BASOPHIL 0.1 X10E9/L Normal 0.0-0.2 [facility] Comment on above: Performed By: #### C SHARONA CMP, #### [facility] ([id number]) [address] [place] [address] ABSOLUTE NEUTROPHIL 11.0 X10E9/L High 1.5-6.[address] [facility] Comment on above: Performed By: #### C SHARONA CMP, #### [facility] ([id number]) [address], [address] [place] [address] Basophils/100 WBC (Bld) 0.7 % Normal [facility] Comment on above: Performed By: #### C SHARONA CMP, #### [facility] ([id number]) [address], [facility] [address] [place] [address] Eosinophils (Bld) [#/Vol] 0.1 10*3/uL Normal 0.0-0.4 [facility] Comment on above: Performed By: #### C SHARONA CMP, #### [facility] ([id number]) [address], [facility] [address] [place] [address] Eosinophils/100 WBC (Bld) 1.0 % Normal [facility] Comment on above: Performed By: #### C HSARONA CMP, #### [facility] ([id number]) [address] [address] [place] [address] Erythrocyte distribution width (RBC) [Ratio] 15.0 % Normal 11.5-15.0 [facility] Comment on above: Performed By: #### Melania TABOR CMP, #### [facility] ([id number]) [address], [facility] [address] [place] [address] Hematocrit (Bld) [Volume fraction] 41.4 % Normal 35-47 [facility] Comment on above: Performed By: #### Melania TABOR CMP, #### [facility] ([id number]) [address] [address] [place] [address] Hemoglobin (Bld) [Mass/Vol] 14.0 g/dL Normal 11.7-15.5 [facility] Comment on above: Performed By: #### C SHARONA CMP, #### [facility] ([id number]) [address] [address] [place] [address] Lymphocytes (Bld) [#/Vol] 2.3 10*3/uL Normal 1.0-3.5 [facility] Comment on above: Performed By: #### C BCA, CMP, #### [facility] ([id number]) [address], [address] [place] [address] Lymphocytes/100 WBC (Bld) 16.3 % Normal [facility] Comment on above: Performed By: #### C SHARONA, CMP, #### [facility] ([id number]) [address], [address] [place] [address] MCH (RBC) [Entitic mass] 29.0 pg Normal 27-34 [facility] Comment on above: Performed By: #### C SHARONA, CMP, #### [facility] ([id number]) [address], [facility] [address] [place] [address] MCHC (RBC) [Mass/Vol] 33.9 g/dL Normal 32-36 [facility] Comment on above: Performed By: #### Melania TABOR, CMP, #### [facility] ([id number]) [address] [place] [address] MCV (RBC) [Entitic vol] 86 fL Normal 80-100 [facility] Comment on above: Performed By: #### Melania TABOR, CMP, #### [facility] ([id number]) [address] [place] [address] Monocytes (Bld) [#/Vol] 0.5 10*3/uL Normal 0-0.9 [facility] Comment on above: Performed By: #### C BCA, CMP, #### [facility] ([id number]) [address] [place] [address] Monocytes/100 WBC (Bld) 3.9 % Normal [facility] Comment on above: Performed By: #### Melania BCA, CMP, #### [facility] ([id number]) [address], [address] [place] [address] Neutrophils/100 WBC (Bld) 78.1 % Normal [facility] Comment on above: Performed By: #### Melania TABOR CMP, 78819-7 #### [facility] ([id number]) [address], [facility] [address] [place] [address] Platelet mean volume (Bld) [Entitic vol] 7.5 fL Normal 7-12 [facility] Comment on above: Performed By: #### Melania TABOR, CMP, #### [facility] ([id number]) [address], [facility] [address] [place] [address] Platelets (Bld) [#/Vol] 376 10*3/uL Normal 150-450 [facility] Comment on above: Performed By: #### Melania TABOR CMP, #### [facility] ([id number]) [address], [facility] [address] [place] [address] RBC COUNT 4.83 X10E12/L Normal 3.80-5.20 [facility] Comment on above: Performed By: #### Melania TABOR, CMP, #### [facility] ([id number]) [address], [address] [address] WBC (Bld) [#/Vol] 14.1 10*3/uL High 4.0-11.0 [facility] Comment on above: Performed By: #### Melania TABOR, CMP, #### [facility] ([id number]) [address], [facility] [address] [place] [address] CBC auto differentialon 06-04 Basophils (Bld) [#/Vol] 0.1 10*3/uL [facility] Basophils/100 WBC (Bld) 0.7 % [facility] Eosinophils (Bld) [#/Vol] 0.1 10*3/uL [facility] Eosinophils/100 WBC (Bld) 1 % [facility] Erythrocyte distribution width (RBC) [Ratio] 15 % 11.5 - 15.0 % [facility] Hematocrit (Bld) [Volume fraction] 41.4 % 35 - 47 % [facility] Hemoglobin (Bld) [Mass/Vol] 14 g/dL 11.7 - 15.5 g/dL [facility] Interpretation and review of laboratory results Abnormal [facility] Lymphocytes (Bld) [#/Vol] 2.3 10*3/uL [facility] Lymphocytes/100 WBC (Bld) 16.3 % [facility] MCH (RBC) [Entitic mass] 29 pg 27 - 34 pg [facility] MCHC (RBC) [Mass/Vol] 33.9 g/dL 32 - 36 g/dL [facility] MCV (RBC) [Entitic vol] 86 fL 80 - 100 fL [facility] Monocytes (Bld) [#/Vol] 0.5 10*3/uL [facility] Monocytes/100 WBC (Bld) 3.9 % [facility] Neutrophils (Bld) [#/Vol] 11 10*3/uL High [facility] Neutrophils/100 WBC (Bld) 78.1 % [facility] Platelet mean volume (Bld) [Entitic vol] 7.5 fL 7 - 12 fL [facility] Platelets (Bld) [#/Vol] 376 10*3/uL [facility] RBC (Bld) [#/Vol] 4.83 10*6/uL [facility] WBC corrected for nucl RBC Auto (Bld) [#/Vol] 14.1 High [facility] COMPREHENSIVE METABOLIC PANE Mikey 06-27-2024 Albumin [Mass/Vol] 3.6 g/dL Normal 3.2-5.3 [facility] Comment on above: Performed By: #### C BCA, CMP, 32466-3 #### [facility] ([id number]) [address], [address] [place] [address] ALP [Catalytic activity/Vol] 69 U/L Normal 39-130 [facility] Comment on above: Performed By: #### C BCA, CMP, #### [facility] ([id number]) [address], [address] [place] [address] ALT [Catalytic activity/Vol] 25 U/L Normal 0-31 [facility] Comment on above: Performed By: #### C BCA, CMP, #### [facility] ([id number]) [address] [place] [address] Anion gap [Moles/Vol] 10 mmol/L Normal 5-15 [facility] Comment on above: Performed By: #### C BCA, CMP, #### [facility] ([id number]) [address], [address] [place] [address] AST [Catalytic activity/Vol] 20 U/L Normal 0-41 [facility] Comment on above: Performed By: #### C BCA, CMP, #### [facility] ([id number]) [address] [place] [address] Bilirubin [Mass/Vol] 0.5 mg/dL Normal 0.3-1.2 [facility] Comment on above: Performed By: #### C BCA, CMP, #### [facility] ([id number]) [address] [place] [address] Calcium [Mass/Vol] 9.0 mg/dL Normal 8.5-10.5 [facility] Comment on above: Performed By: #### C BCA, CMP, #### [facility] ([id number]) [address] [place] [address] Chloride [Moles/Vol] 99 mmol/L Normal 98-109 [facility] Comment on above: Performed By: #### C BCA, CMP, #### [facility] ([id number]) [address] [place] [address] CO2 [Moles/Vol] 28 mmol/L Normal 22-32 [facility] Comment on above: Performed By: #### C SHARONA [facility], #### [facility] ([id number]) [address], [facility] [address] [place] [address] Creatinine [Mass/Vol] 0.75 mg/dL Normal 0.40-1.00 [facility] Comment on above: Result Comment: METH OD TRACEABLE TO IDMS STANDARD Performed By: #### C ODELL TABOR, #### [facility] ([id number]) [address] [address] [place] [address] eGFR (CKD-EPI) NON-RACE DEPENDENT >90 Normal >59 [facility] Comment on above: Result Comment: Reported eGFR is based on the CKD-EPI 2020 equation that does not use a race coefficient. Performed By: #### C ODELL TABOR, #### [facility] ([id number]) [address] [place] [address] Glucose [Mass/Vol] 90 mg/dL Normal 65-99 [facility] Comment on above: Performed By: #### C SHARONA [facility], 869[address]-3 #### [facility] ([id number]) [address] [place] [address] Potassium [Moles/Vol] 4.1 mmol/L Normal 3.5-5.0 [facility] Comment on above: Performed By: #### C SHARONA, [facility], [address]-0 #### [facility] ([id number]) [address] [address] [place] [address] Protein [Mass/Vol] 7.6 g/dL Normal 6.0-8.0 [facility] Comment on above: Performed By: #### C SHARONA CMP, #### [facility] ([id number]) [address] [place] [address] Sodium [Moles/Vol] 137 mmol/L Normal 134-146 [facility] Comment on above: Performed By: #### C BCA, CMP, 10634-4 #### [facility] ([id number]) [address] [place] [address] Urea nitrogen [Mass/Vol] 15 mg/dL Normal 5-23 [facility] Comment on above: Performed By: #### C BCA, CMP, 38697-7 #### [facility] ([id number]) [address] [place] [address] Comprehensive metabolic pane mikey 06-27-2024 Albumin [Mass/Vol] 3.6 g/dL 3.2 - 5.3 g/dL [facility] ALP [Catalytic activity/Vol] 69 U/L 39 - 130 U/L [facility] ALT No additional P-5'-P [Catalytic activity/Vol] 25 U/L 0 - 31 U/L [facility] Anion gap [Moles/Vol] 10 mmol/L 5 - 15 mmol/L [facility] AST [Catalytic activity/Vol] 20 U/L 0 - 41 U/L [facility] Bilirubin [Mass/Vol] 0.5 mg/dL 0.3 - 1 .2 mg/dL [facility] Calcium [Mass/Vol] 9 mg/dL 8.5 - 10. 5 mg/dL [facility] Chloride [Moles/Vol] 99 mmol/L 98 - 10 9 mmol/L [facility] CO2 [Moles/Vol] 28 mmol/L 22 - 32 mmol/L [facility] Creatinine [Mass/Vol] 0.75 mg/dL 0.40 - 1.00 mg/dL [facility] Comment on above: METHOD TRACEABLE TO IDID STANDARD eGFR (CKD-EPI)non-race dependent - PINF [facility] Comment on above: Reported eGFR is based on the CKD-EPI 2020 equation that does not use a race coefficient. Glucose [Mass/Vol] 90 mg/dL 65 - 99 mg/dL [facility] Potassium [Moles/Vol] 4.1 mmol/L 3.5 - 5.0 mmol/L [facility] Protein [Mass/Vol] 7.6 g/dL 6.0 - 8.0 g/dL [facility] Sodium [Moles/Vol] 137 mmol/L 134 - 146 mmol/L [facility] Urea nitrogen [Mass/Vol] 15 mg/dL 5 - 23 mg/dL [facility] MAGNESIUMon 06-27-2024 Magnesium [Mass/Vol] 1.9 mg/dL Normal 1.8-2.6 [facility] Comment on above: Performed By: #### C BCA, [facility], 11626-3 #### [facility] ([id number]) [address] [facility] [place] [address] Magnesiumon 06-27-2024 Magnesium [Mass/Vol] 1.9 mg/dL 1.8 - 2 .6 mg/dL [facility] No Panel Informationon 06-27 [facility] CT ABDOMEN AND PELVIS WO CON Ton 05-19-2024 CT ABDOMEN AND PELVIS WO CONT CT ABDOMEN AND PELVIS WO CONT CT ABDOMEN AND PELVIS WO CONT HISTORY: Flank pain, hematuria COMPARISON: CT abdomen and pelvis of 11/11/2021 TECHNIQUE: CT images of the abdomen obtained without the administration of contrast. Lack of IV contrast limits evaluation, especially solid organs. Automated exposure control was utilized. All CT scans at this facility use dose modulation, iterative reconstruction, and/or weight based dosing when appropriate to reduce radiation dose to as low as reasonably achievable. FINDINGS: No pleural effusions in lower chest. No lower lung consolidations. No abdominal wall abnormalities. No acute osseous abnormalities. No cardiomegaly or pericardial effusion. No significant vascular calcifications. Hepatic steatosis of liver without increased nodularity. The gallbladder is surgically absent. Adrenal glands, spleen, and pancreas are unremarkable. The kidneys are unremarkable. There is no evidence of nephroureterolithiasi s. No bladder wall thickening. The visualized uterus is unremarkable.. Visualized portions of the bowel in upper abdomen are unremarkable. There is no evidence of free air or bowel obstruction. Appendix surgically absent No enlarged lymph nodes. IMPRESSION: No evidence of nephroureterolithiasi s. Mild hypoattenuation of the liver likely due to hepatic steatosis. Approved by Res Ramiro Newman MD on 05/19/2024 7:05 AM I, Collins Matthew have personally reviewed the image(s) and agree with and/or edited the report Finalized by Collins Matthew on 05/19/2024 12:10 PM Normal [facility] MAGNESIUMon 05-16-2024 Magnesium [Mass/Vol] 2.1 mg/dL Normal 1.8-2.6 [facility] Comment on above: Performed By: #### P INR, 39714-8 #### [facility] ([id number]) [address] [place] [address], [place] [address] #### BMP #### [facility] ([id number]) [address] [place] [address], [address] [place] [address] URINE CULTUREon 05-15-2024 Bacteria identified Cx Nom (U) CULTURE RESULTS >100,000 ORGANISMS/mL PROTEUS MIRABILIS MULTIPLE SPECIES PRESENT. PROBABLE COLLECTION CONTAMINATION. SUGGEST REPEAT SPECIMEN. MIXED GRAM POSITIVE AND GRAM NEGATIVE ORGANISMS REPORT UPDATED [ S = SUSCEPTIBLE R = RESISTANT I = INTERMEDIATE S-DO = Susceptible-dose dependent NS = Non-suscceptible NO = No Interpretation ] Organism: PROTEUS MIRABILIS Antibiotic Interpretation MARY Status AMPICILLIN S <=2 F AMP/SULBACTAM S <=2/1 F CEFAZOLIN S <=4 F CEFTRIAXONE S <=0.25 F CIPROFLOXACIN S <=0.25 F GENTAMICIN S <=1 F LEVOFLOXACIN S <=0.12 F NITROFURANTOIN R 128 F PIPERACIL/TAZOBACTAM S <=4 F TOBRAMYCIN S <=1 F TRIMETH/SULFAMETHOXAZ OLE S <=1/19 F Susceptible [facility] Comment on above: Performed By: #### 6 30-4 #### [facility] ([id number]) [address] [place] [address], [address] [place] [address] [facility] PREG QUANT HCGon 024 HCG QUANTITATIVE <1 mIU/mL [facility] Comment on above: 5-50 0.2-1 WEEK 50-500 1-2 WEEKS 100-5,000 2-3 WEEKS 500-10,000 3-4 WEEKS 1,000-50,000 4-5 WEEKS 10,000-100,000 5-6 WEEKS 15,000-200,000 6-8 WEEKS 10,000-100,000 2-3 [facility] MARGARET PRIETO ([id number]) 1990 F Date Time Provider Department 04/22/24 [...] Status:Closed by AMARILYS ROBLES on 04/22/24 Normal [facility] CBC W Auto Differential pane l (Bld)on 04-18-2024 Basophils (Bld) [#/Vol] 0.06 10*3/uL Normal <0.11 [facility] Comment on above: Order Comment: Speci men Type: BLOOD SPECIMEN Ordering Facility: [facility] Address: [address] [place] [address] Performed By: #### 5 7021-8 #### [facility] CLIA [id number] [address] [place] [address] Basophils/100 WBC (Bld) 0.3 % Normal [facility] Comment on above: Order Comment: Speci men Type: BLOOD SPECIMEN Ordering Facility: [facility] Address: [address] [place] [address] Performed By: #### 5 7021-8 #### [facility] CLIA [id number] [address] [place] [address] Differential cell count method Nom (Bld) Auto Normal [facility] Comment on above: Order Comment: Speci men Type: BLOOD SPECIMEN Ordering Facility: [facility] Address: [address] [place] [address] Performed By: #### 5 7021-8 #### [facility] CLIA [id number] [address] [place] [address] Eosinophils (Bld) [#/Vol] 0.13 10*3/uL Normal <0.46 [facility] Comment on above: Order Comment: Speci men Type: BLOOD SPECIMEN Ordering Facility: [facility] Address: [address] [place] [address] Performed By: #### 5 7021-8 #### [facility] CLIA [id number] [address] [place] [address] Eosinophils/100 WBC (Bld) 0.8 % Normal [facility] Comment on above: Order Comment: Speci men Type: BLOOD SPECIMEN Ordering Facility: [facility] Address: [address] [place] [address] Performed By: #### 5 7021-8 #### [facility] CLIA [id number] [address] [place] [address] Erythrocyte distribution width (RBC) [Ratio] 15.6 % High 11.5-15.0 [facility] Comment on above: Order Comment: Speci men Type: BLOOD SPECIMEN Ordering Facility: [facility] Address: [address] [place] [address] Performed By: #### 5 7021-8 #### [facility] CLIA [id number] [address] [place] [address] Hematocrit (Bld) [Volume fraction] 41.3 % Normal 36.0-46.0 [facility] Comment on above: Order Comment: Speci men Type: BLOOD SPECIMEN Ordering Facility: [facility] Address: [address] [place] [address] Performed By: #### 5 7021-8 #### [facility] CLIA [id number] [address] [place] [address] Hemoglobin (Bld) [Mass/Vol] 13.8 g/dL Normal 11.5-15.5 [facility] Comment on above: Order Comment: Speci men Type: BLOOD SPECIMEN Ordering Facility: [facility] Address: [address] [place] [address] Performed By: #### 5 7021-8 #### [facility] CLIA [id number] [address] [place] [address] Immature granulocytes (Bld) [#/Vol] 0.11 10*3/uL High <0.10 [facility] Comment on above: Order Comment: Speci men Type: BLOOD SPECIMEN Ordering Facility: [facility] Address: [address] [place] [address] Performed By: #### 5 7021-8 #### [facility] CLIA [id number] [address] [place] [address] Immature granulocytes/100 WBC (Bld) 0.6 % Normal [facility] Comment on above: Order Comment: Speci men Type: BLOOD SPECIMEN Ordering Facility: [facility] Address: [address] [place] [address] Performed By: #### 5 7021-8 #### [facility] CLIA [id number] [address] [place] [address] Lymphocytes (Bld) [#/Vol] 2.66 10*3/uL Normal 1.00-4.00 [facility] Comment on above: Order Comment: Speci men Type: BLOOD SPECIMEN Ordering Facility: [facility] Address: [address] [place] [address] Performed By: #### 5 7021-8 #### [facility] CLIA [id number] [address] [place] [address] Lymphocytes/100 WBC (Bld) 15.4 % Normal [facility] Comment on above: Order Comment: Speci men Type: BLOOD SPECIMEN Ordering Facility: [facility] Address: [address] [place] [address] Performed By: #### 5 7021-8 #### [facility] CLIA [id number] [address] [place] [address] MCH (RBC) [Entitic mass] 27.4 pg Normal 26.0-34.0 [facility] Comment on above: Order Comment: Speci men Type: BLOOD SPECIMEN Ordering Facility: [facility] Address: [address] [place] [address] Performed By: #### 5 7021-8 #### [facility] CLIA [id number] [address] [place] [address] MCHC (RBC) [Mass/Vol] 33.4 g/dL Normal 30.5-36.0 [facility] Comment on above: Order Comment: Speci men Type: BLOOD SPECIMEN Ordering Facility: [facility] Address: [address] [place] [address] Performed By: #### 5 7021-8 #### [facility] CLIA [id number] [address] [place] [address] MCV (RBC) [Entitic vol] 82.1 fL Normal 80.0-100.0 [facility] Comment on above: Order Comment: Speci men Type: BLOOD SPECIMEN Ordering Facility: [facility] Address: [address] [place] [address] Performed By: #### 5 7021-8 #### [facility] CLIA [id number] [address] [place] [address] Monocytes (Bld) [#/Vol] 1.20 10*3/uL High <0.87 [facility] Comment on above: Order Comment: Speci men Type: BLOOD SPECIMEN Ordering Facility: [facility] Address: [address] [place] [address] Performed By: #### 5 7021-8 #### [facility] CLIA [id number] [address] [place] [address] 55594 Monocytes/100 WBC (Bld) 6.9 % Normal [facility] Comment on above: Order Comment: Speci men Type: BLOOD SPECIMEN Ordering Facility: [facility] Address: [address] [place] [id number] Performed By: #### 5 7021-8 #### [facility] CLIA [id number] [address] [place] [address] [id number] Neutrophils (Bld) [#/Vol] 13.11 10*3/uL High 1.45-7.50 [facility] Comment on above: Order Comment: Speci men Type: BLOOD SPECIMEN Ordering Facility: [facility] Address: [address] [place] [id number] Performed By: #### 5 7021-8 #### [facility] [facility] CLIA [id number] [address] [place] [address]961 Neutrophils/100 WBC (Bld) 76.0 % Normal [facility] Comment on above: Order Comment: Speci men Type: BLOOD SPECIMEN Ordering Facility: [facility] Address: [address] [place] [address] Performed By: #### 5 7021-8 #### [facility] CLIA [id number] [address] [place] [address] 73571 Nucleated RBC (Bld) [#/Vol] 10*3/uL Normal <0.01 [facility] Comment on above: Order Comment: Speci men Type: BLOOD SPECIMEN Ordering Facility: [facility] Address: [address] [place] [address]37 Performed By: #### 5 7021-8 #### [facility] CLIA [id number] [address] [place] [address] Nucleated RBC/100 WBC (Bld) [Ratio] 0.0 /100 WBC Normal [facility] Comment on above: Order Comment: Speci men Type: BLOOD SPECIMEN Ordering Facility: [facility] Address: [address] [place] [address] Performed By: #### 5 7021-8 #### [facility] CLIA [id number] [address] [place] [address]123 Platelet mean volume (Bld) [Entitic vol] 8.6 fL Low 9.0-12.7 [facility] Comment on above: Order Comment: Speci men Type: BLOOD SPECIMEN Ordering Facility: [facility] Address: [address] [place] [address] 56[address] Performed By: #### 5 7021-8 #### [facility] CLIA [id number] [address] [place] [address] 11189 Platelets (Bld) [#/Vol] 329 10*3/uL Normal 150-400 [facility] Comment on above: Order Comment: Speci men Type: BLOOD SPECIMEN Ordering Facility: [facility] Address: [address] [place] [address] 18055 Performed By: #### 5 7021-8 #### [facility] CLIA [id number] [address] [place] [address] 88750 RBC (Bld) [#/Vol] 5.03 10*6/uL Normal 3.90-5.20 [facility] Comment on above: Order Comment: Speci men Type: BLOOD SPECIMEN Ordering Facility: [facility] Address: [address] [place] [address] 10937 Performed By: #### 5 7021-8 #### [facility] CLIA [id number] [address] [place] [address] 46883 WBC (Bld) [#/Vol] 17.27 10*3/uL High 3.70-11.00 [facility] Comment on above: Order Comment: Speci men Type: BLOOD SPECIMEN Ordering Facility: [facility] Address: [address] [place] [address] Performed By: #### 5 7021-8 #### [facility] CLIA [id number] [address] [place] [address]12 CNOVSPon 04-18-2024 CNOVSP Visit (SP) Office ([place]) BRIANMARGARET CORRIGAN ([id number]) 1990 F Date Time Provider Department 04/18/24 11:30 AM SHARIF JOSEPH During your visit today, we recorded the following information about you: Temperature Pulse Respiration Blood pressure 97 degrees 75/minute 18/minute 155/76 Weight Last Period 165.8 kg 04/04/24 Sharif Joseph MD 04/19/2024 2:40 PM Signed NAME: Margaret Prieto CLINIC NO.: [id number] DATE OF SERVICE: April 18, 2024 (Jonelle) Some elements in this clinic note that are critical to medical decision making have been carefully reviewed and included from a prior clinic note dated: December 20, 2023 (Jonelle) Referring Provider: Harley Thacker APRN-NURSE Additional Clinicians involved in Margaret Prieto's care: [...] to resume (more content not included)... Normal [facility] Comprehensive metabolic 2000 panelon 04-18-2024 Albumin [Mass/Vol] 3.8 g/dL Low 3.9-4.9 [facility] Comment on above: Order Comment: Specfrancisco macias Type: BLOOD SPECIMEN Ordering Facility: [facility] Address: [address] [place] [address], [address] [address] Performed By: #### I NFTBP #### [facility] CLIA [id number] [address] [place] [address] [place] ALP [Catalytic activity/Vol] 95 U/L Normal 34-123 [facility] Comment on above: Order Comment: Speci men Type: BLOOD SPECIMEN [facility]ing Facility[facility] Address: [address] [place] [address], [address], [place] [address] Performed By: #### I NFTBP #### [facility] CLIA [id number] [address] [place] [place] [id number] [place] ALT [Catalytic activity/Vol] 22 U/L Normal 7-38 [facility] Comment on above: Order Comment: Speci men Type: BLOOD SPECIMEN [facility] Address: [address] [place] [address], [address] [address] Performed By: #### I NFTBP #### [facility] CLIA [id number] [address] [place] [address] [place] Anion gap [Moles/Vol] 8 mmol/L Normal 8-15 [facility] Comment on above: Order Comment: Speci men Type: BLOOD SPECIMEN [facility] Address: [address] [place] [address], [address], [place] [address] Performed By: #### I NFTBP #### [facility] CLIA [id number] [address] [place] [address] [place] AST [Catalytic activity/Vol] 12 U/L Low 13-35 [facility] Comment on above: Order Comment: Speci men Type: BLOOD SPECIMEN [facility] Address: [address] [place] [address], [address] [address] Performed By: #### I NFTBP #### [facility] CLIA [id number] [address] [place] [address] [place] Bilirubin [Mass/Vol] 0.3 mg/dL Normal 0.2-1.3 [facility] Comment on above: Order Comment: Speci men Type: BLOOD SPECIMEN [facility] Address: [address] [place] [address], [address], [place] [address] Performed By: #### I NFTBP #### [facility] CLIA [id number] [address] [place] [id number] [place] Calcium [Mass/Vol] 9.2 mg/dL Normal 8.5-10.2 [facility] Comment on above: Order Comment: Speci men Type: BLOOD SPECIMEN [facility] Address: [address] [place] [address], [address], [place] [address] Performed By: #### I NFTBP #### [facility] CLIA [id number] [address] [place], [place] [address] [place] Chloride [Moles/Vol] 103 mmol/L Normal 98-107 [facility] Comment on above: Order Comment: Speci men Type: BLOOD SPECIMEN [facility] Address: [address] [place] [address], [address], [place] [address] Performed By: #### I NFTBP #### [facility] IA [id number] [address] [place] [address] [place] CO2 [Moles/Vol] 27 mmol/L Normal 22-30 [facility] Comment on above: Order Comment: Speci men Type: BLOOD SPECIMEN [facility]ing [facility]: [facility] Address: [address] [place] [address], [address] [address] Performed By: #### I NFTBP #### [facility] CLIA [id number] [address] [place] [address] [place] Creatinine [Mass/Vol] 0.86 mg/dL Normal 0.58-0.96 [facility] Comment on above: Order Comment: Speci men Type: BLOOD SPECIMEN [facility] Address: [address] [place] [address], [address], [place] [address] Performed By: #### I NFTBP #### [facility] CLIA [id number] [address] [place] [address] [place] Creatinine and Glomerular filtration rate.predicted panel (S/P/Bld) 91 mL/min/1.73m??? Normal >=60 [facility] Comment on above: Order Comment: Speci men Type: BLOOD SPECIMEN [facility] Address: [address] [place] [address], [address], [place] [address] Result Comment: Faye mated Glomerular Filtration Rate [...] GFR. Performed By: #### I NFTBP #### [facility] CLIA [id number] [address] [place] [address] [place] Glucose [Mass/Vol] 108 mg/dL High 74-99 [facility] Comment on above: Order Comment: Speci men Type: BLOOD SPECIMEN [facility] Address: [address] [place] [address], [address] [place], [place] [id number] Result Comment: The [place] Diabetes Association (ADA) provides guidance for cutoff [...] Standards of Medical Care in Diabetes 2016, [place] Diabetes Association. Diabetes Care. 2016.39(Suppl 1). Performed By: #### I NFTBP #### [facility] CLIA [id number] [address] [place] [address] [place] Potassium [Moles/Vol] 4.5 mmol/L Normal 3.7-5.1 [facility] Comment on above: Order Comment: Speci men Type: BLOOD SPECIMEN [facility] Address: [address] [place] [address], [address], [place] [address] Performed By: #### I NFTBP #### [facility] CLIA [id number] [address] [place] [address] [place] Protein [Mass/Vol] 7.6 g/dL Normal 6.3-8.0 [facility] Comment on above: Order Comment: Speci men Type: BLOOD SPECIMEN [facility] Address: [address] [place] [address], [address], [place] [phone] Performed By: #### I NFTBP #### [facility] CLIA [id number] [address] [place] [address] [place] Sodium [Moles/Vol] 138 mmol/L Normal 136-144 [facility] Comment on above: Order Comment: Speci men Type: BLOOD SPECIMEN [facility]ing [facility] Address: [address] [place] [address], [address], [place] [address] Performed By: #### I NFTBP #### [facility] IA [id number] [address] [place] [address] [place] Urea nitrogen [Mass/Vol] 18 mg/dL Normal 7-21 [facility] Comment on above: Order Comment: Speci men Type: BLOOD SPECIMEN [facility]ing [facility] Address: [address] [place] [address], [address] [id number] Performed By: #### I NFTBP #### [facility] CLIA [id number] [address] [place], [place] [id number] [place] Ferritin SerPl-mCncon 2023 Ferritin [Mass/Vol] 59.3 ng/mL Normal 14.7-205.1 [facility] Comment on above: Order Comment: Speci men Type: BLOOD SPECIMEN [facility] Address: [address] [place] [address], [address], [place] [address] Performed By: #### I NFTBP #### [facility] CLIA [id number] [address] [place] [address] [place] Folate SerPl-mCncon 04-18-20 Folate [Mass/Vol] 16.8 ng/mL Normal >4.7 [facility] Comment on above: Order Comment: Speci men Type: BLOOD SPECIMEN [facility] Address: [address] [place] [address], [address], [place] [address] Performed By: #### I NFTBP #### [facility] CLIA [id number] [address] [place] [address] [place] Iron and Iron binding capaci ty panelon 04-18-2024 Iron [Mass/Vol] 57 ug/dL Normal 41-186 [facility] Comment on above: Order Comment: Speci men Type: BLOOD SPECIMEN [facility] Address: [address] [place] [address], [address], [place] [address] Performed By: #### I NFTBP #### [facility] CLIA [id number] [address] [place] [address] [place] Iron binding capacity [Mass/Vol] 390 ug/dL High 232-386 [facility] Comment on above: Order Comment: Speci men Type: BLOOD SPECIMEN [facility] Address: [address] [place] [address], [address] [address] Performed By: #### I NFTBP #### [facility] CLIA [id number] [address] [place] [address] [place] Iron/TIBC [Molar ratio] 14.6 % Low 15.0-57.0 [facility] Comment on above: Order Comment: Speci men Type: BLOOD SPECIMEN [facility] Address: [address] [place] [address], [address] [address] Performed By: #### I NFTBP #### [facility] CLIA [id number] [address] [place] [address] [place] Vit B12 [facility] 024 Cobalamin (Vitamin B12) [Mass/Vol] 802 pg/mL Normal 232-1245 [facility] Comment on above: Order Comment: Speci men Type: BLOOD SPECIMEN Ordering Facility: [facility] Address: [address] [place] [address], [address], [place] [address] Performed By: #### I NFTBP #### [facility] CLIA [id number] [address] [place] [address] [place] CNPNon 04-08-2024 CNPN Telephone ([place]) MARGARET PRIETO ([id number]) 1990 F Date Time Provider Department 04/08/24 [...] Date 04/08/2024 Noted Resolved Factor V Leiden ([facility]) [D68.51] 07/04/2018 Factor V deficiency (HCC) [D68.2] 12/22/2023 Letter Text Encounter Status:Closed by BE[facility]O [facility]UE [facility] DAVIDN [facility] ([employer]) MARGARET PRIETO ([id number]) 1990 F Date Time Provider Department 04/02/24 BELLO SUE During your visit today, we [...] Also i recently had labs done at [facility] and [facility] in [place] my thyroid is really off they did an ultrasound of my thyroid as well that hasnt come back yet. Top [address] [facility] dist[facility]ta the rest is [facility]: [facility] and US ([facility]) for Leonard to review. [facility] Claribel Tori 04/02/2024 10:38 AM Signed Records are in. [facility] records pulled through Care Everywhere. Bello Sue RN 04/02/2024 10:43 AM Addendum Leonard: Please review and advise (Pt lab/OV 04/18/24) LENA Post Vivek, MD 04/13/2024 8:41 PM Addendum I would not mccloud for a diagnosis of MGUS as it is usually a clinically silent issue and more a result of other underlying concerns. (Silvia's) We can talk more at your next appointment. I assume your PCP or metallurgist process is managing your TSH / thyroid? Bello Sue RN 04/15/2024 9:16 AM Signed Responded via Jugot Bello Sue RN Allergies As of Date: [...] Status:Closed by BELLO SUE on 04/07/24 Normal [facility] US THYROIDon 03-28-2024 US THYROID US THYROID CLINICAL INFORMATION: Silvia's disease. Left thyroidectomy. TECHNIQUE: Real time sonography of the thyroid gland performed. COMPARISON: 09/12/2017 FINDINGS: Thyroid size: Mildly enlarged right lobe Right thyroid lobe measures: 5.4 x 2.3 x 2.7 cm Left thyroid lobe surgically absent. No abnormalities noted in the left thyroid bed. Overall thyroid texture: Heterogenous right thyroid lobe. Multinodular nodular appearing hypoechoic areas within the right thyroid lobe, largest measuring up to 8 mm (TR 4). Right thyroid lobe is similar in appearance to 2018 comparison. No new or suspicious-appearing nodules. IMPRESSION: 1. Heterogeneous thyroid, consistent with described (Silvia's) thyroiditis. 2. Redemonstrated hypoechoic right thyroid (pseudo)nodules, less than 1 cm and similar to prior. ACR TI-RADS recommendations: TR5 (greater than or equal to 7 points) - FNA if greater than or equal to 1cm, follow-up ultrasound if nodule is 0.5 - 0.9 cm every year for 5 years. TR4 (4 - 6 points) - FNA if greater than or equal to 1.5 cm, follow-up ultrasound if nodule is 1 -1.4 cm at 1, 2, 3 and 5 years. TR3 (3 points) - FNA if greater than or equal to 2.5 cm, follow-up ultrasound if nodule is 1.5 -2.4 cm at 1, 3 and 5 years. TR2 (2 points) & TR1 (0 points) - No FNA or follow-up. Approved by Resident Katya Paez MD on 03/28/2024 11:05 AM I, Collins Burns MD have personally reviewed the image(s) and agree with and/or edited the report Finalized by Collins Burns MD on 03/28/2024 1:34 PM Normal [facility] FREE T3on 03-27-2024 Free T3 [Mass/Vol] 3.23 pg/mL Normal 2.50-3.90 [facility] Comment on above: Performed By: #### P INR, 80620-2 #### [facility] ([id number]) [address] [place] [address] #### BMP #### [facility] ([id number]) [address], [address] [place] [address] THYROID ANTIBODIESon 024 Thyroglobulin Ab Qn 3 [IU]/mL Normal <4.0 [facility] Comment on above: Performed By: #### P INR, 01896-3 #### [facility] ([id number]) [address] [place] [address] #### BMP #### [facility] ([id number]) [address] [facility] [place] [address] TPO Ab Qn 866 [IU]/mL High <10 [facility] Comment on above: Performed By: #### P INR, 13447-6 #### [facility] ([id number]) [address] [place] [address] #### BMP #### [facility] ([id number]) [address], [address] [place] [address] THYROID PROFILEon 03-27-2024 Free T4 [Mass/Vol] 0.87 ng/dL Normal 0.61-1.60 [facility] Comment on above: Performed By: #### P INR, 02417-1 #### [facility] ([id number]) [address] [place] [address] #### BMP #### [facility] ([id number]) [address], [address] [place] [address] TSH 7.10 uIU/mL High 0.49-4.67 [facility] Comment on above: Performed By: #### P INR, 50538-3 #### [facility] ([id number]) [address] [place] [address] #### BMP #### [facility] ([id number]) [address], [address] [place] [address] BLOOD TB SCREENon 12-20-2023 M. tuberculosis tuberculin stim IFN-g Ql (Bld) Negative Normal [facility] Comment on above: Order Comment: Speci men Type: BLOOD SPECIMEN Ordering Facility: [facility] Address: [address] [place] [address], [address], [place] [address] Performed By: #### I NFTBP #### [facility] CLIA [id number] [address] [place] [address] [place] [address] [place] MITOGEN MINUS NIL >9.99 Normal >=0.50 [facility] Comment on above: Order Comment: Speci men Type: BLOOD SPECIMEN [facility] Address: [address] [place] [address], [address] [address] Performed By: #### I NFTBP #### [facility] CLIA [id number] [address] [place] [address] [place] TB GAMMA INTERPRETATION Infection with M. tuberculosis complex is unlikely. If latent tuberculosis infection is highly suspected, a negative result does not rule out the infection. Specimens from immunocompromised patients and those <5 years of age may show false negative results. In case of a contact investigation, please repeat 8-12 weeks after a known exposure. Normal [facility] Comment on above: Order Comment: Husseini gilberto Type: BLOOD SPECIMEN [facility] Address: [address] [place] [address], [address] [address] Performed By: #### I NFTBP #### [facility] CLIA [id number] [address] [place] [address] [place] TB NIL 0.01 IU/mL Normal <=8.00 [facility] Comment on above: Order Comment: Speci men Type: BLOOD SPECIMEN [facility]ing [facility] Address: [address] [place] [address], [address] [address] Performed By: #### I NFTBP #### [facility] CLIA [id number] [address] [place] [address] [place] TB1 AG MINUS NIL 0.00 IU/mL Normal <0.35 [facility] Comment on above: Order Comment: Speci men Type: BLOOD SPECIMEN [facility]ing [facility] Address: [address] [place] [address], [address], [place] [address] Performed By: #### I NFTBP #### [facility] CLIA [id number] [address] [place] [address] [place] TB2 AG MINUS NIL 0.00 IU/mL Normal <0.35 [facility] Comment on above: Order Comment: Speci men Type: BLOOD SPECIMEN Ordering Facility: [facility] Address: [address] [place] [address], [address], [place] [phone] Performed By: #### I NFTBP #### [facility] CLIA [id number] [address] [facility] [address] [place] CBC W Auto Differential pane l (Bld)on 12-20-2023 Basophils (Bld) [#/Vol] 0.05 10*3/uL Normal <0.11 [facility] Comment on above: Order Comment: Speci men Type: BLOOD SPECIMENOrdering Facility: [facility] Address: [address] [place] [address] Performed By: #### 5 7021-8 ####[facility] [id number] [place] [address] Basophils/100 WBC (Bld) 0.5 % Normal [facility] Comment on above: Order Comment: Speci men Type: BLOOD SPECIMENOrdering Facility: [facility] Address: [address] [place] [address] Performed By: #### 5 7021-8 ####[facility] [id number] [place] [address] Differential cell count method Nom (Bld) Auto Normal [facility] Comment on above: Order Comment: Speci men Type: BLOOD SPECIMENOrdering Facility: [facility] Address: [address] [place] [address] Performed By: #### 5 7021-8 ####[facility] [id number] [place] [address] Eosinophils (Bld) [#/Vol] 0.26 10*3/uL Normal <0.46 [facility] Comment on above: Order Comment: Speci men Type: BLOOD SPECIMENOrdering Facility: [facility] Address: [address] [place] [address] Performed By: #### 5 7021-8 ####[facility] [id number] [place] [address] Eosinophils/100 WBC (Bld) 2.6 % Normal [facility] Comment on above: Order Comment: Speci men Type: BLOOD SPECIMENOrdering Facility: [facility] Address: [address] [place] [address] Performed By: #### 5 7021-8 ####[facility] [id number] [place] [address] Erythrocyte distribution width (RBC) [Ratio] 14.6 % Normal 11.5-15.0 [facility] Comment on above: Order Comment: Speci men Type: BLOOD SPECIMENOrdering Facility: [facility] Address: [address] [place] [address] Performed By: #### 5 7021-8 ####[facility] [id number] [place] [address] Hematocrit (Bld) [Volume fraction] 40.9 % Normal 36.0-46.0 [facility] Comment on above: Order Comment: Speci men Type: BLOOD SPECIMENOrdering Facility: [facility] Address: [address] [place] [address] Performed By: #### 5 7021-8 ####[facility] [id number] [place] [address] Hemoglobin (Bld) [Mass/Vol] 13.1 g/dL Normal 11.5-15.5 [facility] Comment on above: Order Comment: Speci men Type: BLOOD SPECIMENOrdering Facility: [facility] Address: [address] [place] [address] Performed By: #### 5 7021-8 ####[facility] [id number] [place] [address] Immature granulocytes (Bld) [#/Vol] 0.04 10*3/uL Normal <0.10 [facility] Comment on above: Order Comment: Speci men Type: BLOOD SPECIMENOrdering Facility: [facility] Address: [address] [place] [address] Performed By: #### 5 7021-8 ####[facility] LABCLIA [id number] [place] [address] Immature granulocytes/100 WBC (Bld) 0.4 % Normal [facility] Comment on above: Order Comment: Speci men Type: BLOOD SPECIMENOrdering Facility: [facility] Address: [address] [place] [address] Performed By: #### 5 7021-8 ####[facility] LABCLIA [id number] [place] [address] Lymphocytes (Bld) [#/Vol] 1.75 10*3/uL Normal 1.00-4.00 [facility] Comment on above: Order Comment: Speci men Type: BLOOD SPECIMENOrdering Facility: [facility] Address: [address] [place] [address] Performed By: #### 5 7021-8 ####[facility] LABCLIA [id number] [place] [address] Lymphocytes/100 WBC (Bld) 17.4 % Normal [facility] Comment on above: Order Comment: Speci men Type: BLOOD SPECIMENOrdering Facility: [facility] Address: [address] [place] [address] Performed By: #### 5 7021-8 ####[facility] LABCLIA [id number] [place] [address] MCH (RBC) [Entitic mass] 25.6 pg Low 26.0-34.0 [facility] Comment on above: Order Comment: Speci men Type: BLOOD SPECIMENOrdering Facility: [facility] Address: [address] [place] [address] Performed By: #### 5 7021-8 ####[facility] LABCLIA [id number] [place] [address] MCHC (RBC) [Mass/Vol] 32.0 g/dL Normal 30.5-36.0 [facility] Comment on above: Order Comment: Speci men Type: BLOOD SPECIMENOrdering Facility: [facility] Address: [address] [place] [address] Performed By: #### 5 7021-8 ####[facility] LABCLIA [id number] [place] [address] MCV (RBC) [Entitic vol] 79.9 fL Low 80.0-100.0 [facility] Comment on above: Order Comment: Speci men Type: BLOOD SPECIMENOrdering Facility: [facility] Address: [address] [place] [address] Performed By: #### 5 7021-8 ####[facility] LABCLIA [id number] [place] [address] Monocytes (Bld) [#/Vol] 0.57 10*3/uL Normal <0.87 [facility] Comment on above: Order Comment: Speci men Type: BLOOD SPECIMENOrdering Facility: [facility] Address: [address] [place] [address] Performed By: #### 5 7021-8 ####[facility] LABCLIA [id number] [place] [address] Monocytes/100 WBC (Bld) 5.7 % Normal [facility] Comment on above: Order Comment: Speci men Type: BLOOD SPECIMENOrdering Facility: [facility] Address: [address] [place] [address] Performed By: #### 5 7021-8 ####[facility] LABCLIA [id number] [place] [address] Neutrophils (Bld) [#/Vol] 7.41 10*3/uL Normal 1.45-7.50 [facility] Comment on above: Order Comment: Speci men Type: BLOOD SPECIMENOrdering Facility: [facility] Address: [address] [place] [address] Performed By: #### 5 7021-8 ####[facility] LABCLIA [id number] [place] [address] Neutrophils/100 WBC (Bld) 73.4 % Normal [facility] Comment on above: Order Comment: Speci men Type: BLOOD SPECIMENOrdering Facility: [facility] Address: [address] [place] [address] Performed By: #### 5 7021-8 ####[facility] LABCLIA [id number] [place] [address] Nucleated RBC (Bld) [#/Vol] 10*3/uL Normal <0.01 [facility] Comment on above: Order Comment: Speci men Type: BLOOD SPECIMENOrdering Facility: [facility] Address: [address] [place] [address] Performed By: #### 5 7021-8 ####[facility] LABCLIA [id number] [place] [address] Nucleated RBC/100 WBC (Bld) [Ratio] 0.0 /100 WBC Normal [facility] Comment on above: Order Comment: Speci men Type: BLOOD SPECIMENOrdering Facility: [facility] Address: [address] [place] [address] Performed By: #### 5 7021-8 ####[facility] LABCLIA [id number] [place] [address] Platelet mean volume (Bld) [Entitic vol] 8.8 fL Low 9.0-12.7 [facility] Comment on above: Order Comment: Speci men Type: BLOOD SPECIMENOrdering Facility: [facility] Address: [address] [place] [address] Performed By: #### 5 7021-8 ####[facility] LABCLIA [id number] [place] [address] Platelets (Bld) [#/Vol] 327 10*3/uL Normal 150-400 [facility] Comment on above: Order Comment: Speci men Type: BLOOD SPECIMENOrdering Facility: [facility] Address: [address] [place] [address] Performed By: #### 5 7021-8 ####[facility] LABIA [id number] [place] [address] RBC (Bld) [#/Vol] 5.12 10*6/uL Normal 3.90-5.20 [facility] Comment on above: Order Comment: Speci men Type: BLOOD SPECIMENOrdering Facility: [facility] Address: [address] [place] [address] Performed By: #### 5 7021-8 ####[facility] LABIA [id number] [place] [address] WBC (Bld) [#/Vol] 10.08 10*3/uL Normal 3.70-11.00 [facility] Comment on above: Order Comment: Speci men Type: BLOOD SPECIMENOrdering Facility: [facility] Address: [address] [place], [place] [address] Performed By: #### 5 7021-8 ####[facility] LABIA [id number] [place] [address] CNOVSPon 12-20-2023 CNOVS Visit (SP) Office ([place]) MARGARET PRIETO ([id number]) 1990 F Date Time Provider Department 12/20/23 10:00 AM SHARIF JOSEPH During your visit today, we recorded the following information about you: Temperature Pulse Respiration Blood pressure 97.7 degrees 98/minute 16/minute 154/90 Weight 171.1 kg Sharif Joseph MD 12/22/2023 6:44 AM Signed NAME: Margaret Prieto CLINIC NO.: [id number] DATE OF SERVICE: December 20, 2023 (Jonelle) Some elements in this clinic note that are critical to medical decision making have been carefully reviewed and included from a prior clinic note dated: November 29, 2023 (Jonelle) Referring Provider: Harley Thacker APRN-NURSE Additional Clinicians involved in Margaret Prieto's care: [...] anticoagulation injecti (more content not included)... Normal [facility] Comprehensive metabolic 2000 panelon 12-20-2023 Albumin [Mass/Vol] 3.7 g/dL Low 3.9-4.9 [facility] Comment on above: Order Comment: Speci men Type: BLOOD SPECIMEN [facility] Address: [address] [place] [address], [address], [place] [address] Performed By: #### I NFTBP #### [facility] CLIA [id number] [address] [place] [address] [place] ALP [Catalytic activity/Vol] 85 U/L Normal 34-123 [facility] Comment on above: Order Comment: Speci men Type: BLOOD SPECIMEN Ordering Facility: [facility] Address: [address] [place] [address], [address], [place] [address] Performed By: #### I NFTBP #### [facility] CLIA [id number] [address] [place] [address] [place] ALT [Catalytic activity/Vol] 30 U/L Normal 7-38 [facility] Comment on above: Order Comment: Speci men Type: BLOOD SPECIMEN [facility]ing Facility: [facility] Address: [address] [place] [address], [address], [place] [address] Performed By: #### I NFTBP #### [facility] CLIA [id number] [address] [place], [place] [address] [place] Anion gap [Moles/Vol] 13 mmol/L Normal 9-18 [facility] Comment on above: Order Comment: Speci men Type: BLOOD SPECIMEN [facility]ing Facility: [facility] Address: [address] [place] [address], [address] [address] Performed By: #### I NFTBP #### [facility] CLIA [id number] [address] [place], [place] [address] [place] AST [Catalytic activity/Vol] 18 U/L Normal 13-35 [facility] Comment on above: Order Comment: Speci men Type: BLOOD SPECIMEN [facility] [facility] Address: [address] [place] [address], [address] [address] Performed By: #### I NFTBP #### [facility] CLIA [id number] [address] [place] [address] [place] Bilirubin [Mass/Vol] 0.3 mg/dL Normal 0.2-1.3 [facility] Comment on above: Order Comment: Speci men Type: BLOOD SPECIMEN [facility] Address: [address] [place] [address], [address] [address] Performed By: #### I NFTBP #### [facility] CLIA [id number] [address] [place] [address] [place] Calcium [Mass/Vol] 9.4 mg/dL Normal 8.5-10.2 [facility] Comment on above: Order Comment: Speci men Type: BLOOD SPECIMEN [facility] Address: [address] [place] [address], [address] [address] Performed By: #### I NFTBP #### [facility] CLIA [id number] [address] [place] [address] [place] Chloride [Moles/Vol] 106 mmol/L High 97-105 [facility] Comment on above: Order Comment: Speci men Type: BLOOD SPECIMEN [facility] Address: [address] [place] [address], [address] [address] Performed By: #### I NFTBP #### [facility] CLIA [id number] [address] [place] [address] [place] CO2 [Moles/Vol] 23 mmol/L Normal 22-30 [facility] Comment on above: Order Comment: Speci men Type: BLOOD SPECIMEN [facility] Address: [address] [place] [address], [address], [place] [address] Performed By: #### I NFTBP #### [facility] CLIA [id number] [address] [place] [address] [place] Creatinine [Mass/Vol] 0.81 mg/dL Normal 0.58-0.96 [facility] Comment on above: Order Comment: Nima men Type: BLOOD SPECIMEN [facility] Address: [address] [place] [address], [address] [address] Performed By: #### I NFTBP #### [facility] IA [id number] [address] [place] [address] [place] Creatinine and Glomerular filtration rate.predicted panel (S/P/Bld) 98 mL/min/1.73m??? Normal >=60 [facility] Comment on above: Order Comment: Nima macias Type: BLOOD SPECIMEN [facility] Address: [address] [place] [address], [address] [address] Result Comment: Faye mated Glomerular Filtration Rate [...] GFR. Performed By: #### I NFTBP #### [facility] CLIA [id number] [address] [place] [address] [place] Glucose [Mass/Vol] 114 mg/dL High 74-99 [facility] Comment on above: Order Comment: Nima gilberto Type: BLOOD SPECIMEN [facility] Address: [address] [place] [address], [address], [place] [address] Result Comment: The [place] Diabetes Association (ADA) provides guidance for cutoff [...] Standards of Medical Care in Diabetes 2016, [place] Diabetes Association. Diabetes Care. 2016.39(Suppl 1). Performed By: #### I NFTBP #### [facility] CLIA [id number] [address] [place] [address] [place] Potassium [Moles/Vol] 4.3 mmol/L Normal 3.7-5.1 [facility] Comment on above: Order Comment: Nima macias Type: BLOOD SPECIMEN [facility] Address: [address] [place] [address], [address] [place] [address] Performed By: #### I NFTBP #### [facility] CLIA [id number] [address] [place] [address] [place] Protein [Mass/Vol] 7.9 g/dL Normal 6.3-8.0 [facility] Comment on above: Order Comment: Nima macias Type: BLOOD SPECIMEN [facility] Address: [address] [place] [address], [address] [place], [place] [address] Performed By: #### I NFTBP #### [facility] CLIA [id number] [address] [place] [address] [place] Sodium [Moles/Vol] 142 mmol/L Normal 136-144 [facility] Comment on above: Order Comment: Nima macias Type: BLOOD SPECIMEN [facility] Address: [address] [place] [address], [address] [place] [address] Performed By: #### I NFTBP #### [facility] CLIA [id number] [address] [place] [address] [place] Urea nitrogen [Mass/Vol] 13 mg/dL Normal 7-21 [facility] Comment on above: Order Comment: Speci men Type: BLOOD SPECIMEN Ordering Facility: [facility] Address: [address] [place] [address], [address], [place] [address] Performed By: #### I NFTBP #### [facility] CLIA [id number] [address] [place] [address] [place] Ferritin SerPl-mCncon 2023 Ferritin [Mass/Vol] 63.7 ng/mL Normal 14.7-205.1 [facility] Comment on above: Order Comment: Speci men Type: BLOOD SPECIMEN [facility] Address: [address] [place] [address] Performed By: #### 5 7021-8 #### [facility] CLIA [id number] [address] [place] [address] Folate SerPl-mCncon 12-20-19 24 Folate [Mass/Vol] 13.9 ng/mL Normal >4.7 [facility] Comment on above: Order Comment: Speci men Type: BLOOD SPECIMENOrdering Facility: [facility] Address: [address] [place] [address] Performed By: #### 2 132-9, 2284-8 ####[facility] LABIA [id number] [place] [address] [place] HBV surface Ag Ser Qlon 12-02 HBV surface Ag Ql (S) Negative Normal Negative [facility] Comment on above: Order Comment: Speci men Type: BLOOD SPECIMEN Ordering Facility: [facility] Address: [address] [place] [address], [address], [place] [address] Performed By: #### I NFTBP #### [facility] CLIA [id number] [address] [place] [address] [place] HCV Ab Ser Qlon 12-20-2023 HCV Ab Ql (S) Negative Normal Negative [facility] Comment on above: Order Comment: Speci men Type: BLOOD SPECIMEN [facility] Address: [address] [place] [address] Result Comment: The result suggests no evidence of active infection with Hepatitis C virus. Should recent infection be suspected, repeat testing may be considered 4-6 weeks after this draw. Performed By: #### 5 7021-8 #### [facility] CLIA [id number] [address] [place] [address] Hcys SerPl-sCncon 12-20-2023 Homocysteine [Moles/Vol] 7.4 umol/L Normal <15.1 [facility] Comment on above: Order Comment: Speci men Type: BLOOD SPECIMEN [facility] Address: [address] [place] [address] Performed By: #### 1 3965-9 #### [facility] CLIA [id number] [address] [place] [address] [place] Iron and Iron binding capaci ty panelon 12-20-2023 Iron [Mass/Vol] 35 ug/dL Low 41-186 [facility] Comment on above: Order Comment: Speci men Type: BLOOD SPECIMEN [facility] Address: [address] [place] [address] Performed By: #### 5 7021-8 #### [facility] CLIA [id number] [address] [place] [address] Iron binding capacity [Mass/Vol] 339 ug/dL Normal 232-386 [facility] Comment on above: Order Comment: Speci men Type: BLOOD SPECIMEN [facility] Address: [address] [place] [address] Performed By: #### 5 7021-8 #### [facility] CLIA [id number] [address] [place] [address] Iron/TIBC [Molar ratio] 10.3 % Low 15.0-57.0 [facility] Comment on above: Order Comment: Speci men Type: BLOOD SPECIMEN [facility] Address: [address] [place] [address] Performed By: #### 5 7021-8 #### [facility] CLIA [id number] [address] [place] [address] Lipid 1996 panelon 4 Cholesterol [Mass/Vol] 173 mg/dL Normal <200 [facility] Comment on above: Order Comment: Speci men Type: BLOOD SPECIMEN [facility] Address: [address] [place] [address] Result Comment: <200 mg/dL, Desirable 200-239 mg/dL, Borderline high >239 mg/dL, High Performed By: #### 5 7021-8 #### [facility] CLIA [id number] [address] [place] [address] Cholesterol in HDL [Mass/Vol] 32 mg/dL Low >39 [facility] Comment on above: Order Comment: Speci men Type: BLOOD SPECIMEN [facility] Address: [address] [place] [address] Result Comment: 40-5 9 mg/dL, Acceptable >59 mg/dL, High: Negative risk factor for coronary heart disease <40 mg/dL, Low: Positive risk factor for coronary heart disease Performed By: #### 5 7021-8 #### [facility] CLIA [id number] [address] [place] [address] Cholesterol in LDL [Mass/Vol] 116 mg/dL High <100 [facility] Comment on above: Order Comment: Speci men Type: BLOOD SPECIMEN [facility] Address: [address] [place], [place] [address] Result Comment: <100 mg/dL, Optimal 100-129 mg/dL, Near optimal/above optimal 130-159 mg/dL, Borderline high 160-189 mg/dL, High >189 mg/dL, Very high Secondary prevention optimal LDL Cholesterol levels are recommended to be < 70 mg/dL Performed By: #### 5 7021-8 #### [facility] CLIA [id number] [address] [place] [address] Cholesterol in LDL/Cholesterol in HDL [Mass ratio] 3.63 {ratio} High <2.54 [facility] Comment on above: Order Comment: Nima macias Type: BLOOD SPECIMEN [facility] Address: [address] [place] [address] Result Comment: Refe rachelce: 1. National Cholesterol Education Program ATP III Guideline At-A-Glance Quick Desk Reference: National Heart, Lung, and Blood [place]. National Institutes of Health. 2001: NIH Publication No. 01-3305. 2. An International Atherosclerosis Society position paper: global recommendations for the management of dyslipidemia: executive summary, Atherosclerosis. 2014: 232(2):410-413. Performed By: #### 5 7021-8 #### [facility] CLIA [id number] [address] [place] [address] Cholesterol in VLDL [Mass/Vol] 25 mg/dL Normal <30 [facility] Comment on above: Order Comment: Nima macias Type: BLOOD SPECIMEN [facility] Address: [address] [place] [address] Performed By: #### 5 7021-8 #### [facility] CLIA [id number] [address] [place] [address] Cholesterol non HDL [Mass/Vol] 141 mg/dL High <130 [facility] Comment on above: Order Comment: Nima macias Type: BLOOD SPECIMEN [facility] Address: [address] [place] [address] Result Comment: <130 mg/dL, Optimal 130-159 mg/dL, Near optimal/above optimal 160-189 mg/dL, Borderline high 190-219 mg/dL, High >219 mg/dL, Very high Secondary prevention optimal non HDL Cholesterol levels are recommended to be <100 mg/dL Performed By: #### 5 7021-8 #### [facility] CLIA [id number] [address] [place] [address] Cholesterol.total/Ch olesterol in HDL [Mass ratio] 5.41 {ratio} High <5.10 [facility] Comment on above: Order Comment: Speci men Type: BLOOD SPECIMEN [facility] Address: [address] [place], [place] [address] Performed By: #### 5 7021-8 #### [facility] CLIA [id number] [address] [place] [address] FASTING TIME 12 hrs Normal [facility] Comment on above: Order Comment: Speci men Type: BLOOD SPECIMEN [facility] Address: [address] [place] [address] Performed By: #### 5 7021-8 #### [facility] CLIA [id number] [address] [place] [address] Triglyceride [Mass/Vol] 126 mg/dL Normal <150 [facility] Comment on above: Order Comment: Speci men Type: BLOOD SPECIMEN [facility] Address: [address] [place] [address] Result Comment: <150 mg/dL, Normal 150-199 mg/dL, Borderline high 200-499 mg/dL, High >499 mg/dL, Very high Performed By: #### 5 7021-8 #### [facility] CLIA [id number] [address] [place] [address] Vit B12 [facility] 024 Cobalamin (Vitamin B12) [Mass/Vol] 738 pg/mL Normal 232-1245 [facility] Comment on above: Order Comment: Speci men Type: BLOOD SPECIMEN [facility] Address: [address] [place] [address] Performed By: #### 5 7021-8 #### [facility] CLIA [id number] [address] [place] [address] XR CHEST 2 VWSon 12-12-2023 XR CHEST 2 VWS XR CHEST 2 VWS PA and lateral chest: HISTORY: Shortness of breath. 2 views of the chest are obtained. Lungs are clear. There is no consolidation or effusion. No pneumothorax. Osseous appear intact. Cardiac and mediastinal contours are unremarkable. IMPRESSION: No acute findings. Finalized by Tarun Rodríguez MD on 12/12/2023 2:25 PM Normal [facility] H PYLORI SCREENon 12-10-2023 H. pylori Org specific cx Ql (Roland fld) Negative Normal NEG [facility] Comment on above: Performed By: #### 4 4015-6 #### [facility] ([id number]) [address] [place] [address], [address] [place] [address] HCG ( test) Ql (U)o n 12-10-2023 Beta HCG ( test) Ql (U) Negative Normal NEG [facility] Comment on above: Performed By: #### P INR, 94187-4 #### [facility] ([id number]) [address] [place] [address], [place] [address] #### BMP #### [facility] ([id number]) [address] [place] [address], [address] [place] [address] Surgical Pathologyon 024 Surgical Pathology Normal [facility] Comment on above: Result Comment: [facility] [address] [place] [address] Surgical Pathology Consultation Patient Name:MARGARET PRIETO:1990 (Age: 33)Gender:FTaken:4Reported:4Physician(s):Collins Mejia D.O. ([phone])Copy To: Rec. #:[id number]: #[id number] Final Pathologic Diagnosis 1. Antrum biopsy: Fragments of gastric mucosa with no significant histopathologic abnormality 2. Distal esophagus biopsy: Fragment of gastric cardia mucosa with reactive changes suggestive of mild chronic reflux-related changes Squamous mucosa, dysplasia or intestinal metaplasia is not identified Report Electronically Signed Out nsk/12/18/2023Halina Fraga MD Interpretation performed at [facility], [address] [place] [address], License number: [id number]. Clinical History Gastroesophageal reflux, nausea, vomiting. Gross Description 1. Received in formalin labeled, MORHART, antrum are 2 pale-herrera delicate soft tissue fragments, each 0.4 cm in greatest dimension. The specimens are filtered and submitted in a single cassette. (1, ns, [id number], m4) TB 2. Received in formalin labeled, MORHART, distal esophagus is a pale-herrera delicate soft tissue bit, 0.3 cm in greatest dimension. The specimen is filtered and submitted in a single cassette. (1, ns, [id number], m4) TB tgb/12/11/2023NSK Specimen(s) Received 1: Antrum biopsy 2: Distal esophagus biopsy Fee Codes(s): 1; 67821 2; 02997 Cytologyon 12-07-2023 Cytology Normal [facility] Comment on above: Result Comment: [facility] [address] [place] [address] Gynecologic Cytology Consultation Patient Name:MARGARET PRIETO:1990 (Age: 33)Gender:FTaken:4Reported:12/24/2023hysician(s):Milady PelaezNSunday ([phone])Copy To: Rec. #:[id number]: #[id number] Final Cytologic Interpretation ThinPrep Pap Test (Vaginal/Cervical): Satisfactory for evaluation. A transformazion zone component is not identified via imaging-assisted review, using [employer] Thin Prep Imaging System, within 22 microscopic chan of view. NEGATIVE FOR INTRAEPITHELIAL LESION OR MALIGNANCY. [facility] [place]/12/24/2023 Interpretation performed [place] [address], License number: [id number]. 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 (OFFICE RN) Fee Code(s): G0145 HGB A1C (GLYCO-HGB)on 2023 Glucose [Mass/Vol] 123 mg/dL Normal [facility] Comment on above: Performed By: #### T SHR #### [facility] ([id number]) [address], [address] [place] [address] HbA1c (Bld) [Mass fraction] 5.9 % High 4.4-5.6 [facility] Comment on above: Result Comment: NOTE ADA Guidelines Result HgbA1c Normal : less than 5.7 % Prediabetes : 5.7 % to 6.4 % Diabetes : > 6.4 % Use with caution in patients with abnormal hemoglobin variants as the half-life of red blood cells and in vivo glycation rates are affected. Performed By: #### T SHR #### [facility] ([id number]) [address] [facility] [address] [place] [address] HIGH RISK HPV W/GENOon 12-06 HPV 31+33+35+39+45+51+52 +56+58+59+66+68 DNA EVARISTO+probe Ql (Cvx) HPV SPECIMEN TYPE ThinPrep HPV 16 Negative (qualifier value) HPV 18 Negative (qualifier value) OTHER HIGH RISK HPV Negative (qualifier value) HPV types 31,33,35,39,45,52,56, 58,59,66 and 68 DNA were undetectable. Normal [facility] Comment on above: Performed By: #### 7 1431-1 #### [facility] ([id number]) [address] [place] [address], [place], [place] [id number] [place] [address] LAB ([id number]) [address] [place] [address], [address] [place] [address] Hemoglobin A1con 12-07-2023 Average glucose Estimated from glycated hemoglobin (Bld) [Mass/Vol] 123 mg/dL [facility] HbA1c (Bld) [Mass fraction] 5.9 % High 4.4 - 5.6 % [facility] Comment on above: NOTE ADA Guidelines Result HgbA1c Normal : less than 5.7 % Prediabetes : 5.7 % to 6.4 % Diabetes : > 6.4 % Use with caution in patients with abnormal hemoglobin variants as the half-life of red blood cells and in vivo glycation rates are affected. Interpretation and review of laboratory results Abnormal [facility] TSH WITH REFLEXon 12-07-2023 TSH 3.01 uIU/mL Normal 0.49-4.67 [facility] Comment on above: Performed By: #### T SHR #### [facility] ([id number]) [address] [place] [address], [address] [place] [address] TSH with Reflexon 12-07-2023 TSH Qn 3.01 m[IU]/L [facility] FERRITIN BLDon 11-30-2023 Ferritin [Mass/Vol] 72.5 ng/mL 14.7 - 2 05.1 ng/mL [facility] FOLATE SERUMon 11-30-2023 Folate [Mass/Vol] 12.6 ng/mL >4.7 ng/mL [facility] Iron and Iron binding capaci ty panelon 11-30-2023 Iron [Mass/Vol] 34 ug/dL Low 41 - 186 ug/dL [facility] Iron binding capacity [Mass/Vol] 375 ug/dL 232 - 386 ug/dL [facility] Iron/TIBC [Molar ratio] 9.1 % Low 15.0 - 57.0 % [facility] VITAMIN B12 BLOODon 11-30-19 Cobalamin (Vitamin B12) [Mass/Vol] 740 pg/mL 232 - 1,245 pg/mL [facility] CBC W Auto Differential pane l (Bld)on 11-29-2023 Basophils (Bld) [#/Vol] 0.06 10*3/uL <0.11 k/uL [facility] Basophils/100 WBC (Bld) 0.5 % [facility] Differential cell count method Nom (Bld) Auto [facility] Eosinophils (Bld) [#/Vol] 0.30 10*3/uL <0.46 k/uL [facility] Eosinophils/100 WBC (Bld) 2.4 % [facility] Erythrocyte distribution width (RBC) [Ratio] 14.7 % 11.5 - 15.0 % [facility] Hematocrit (Bld) [Volume fraction] 41.9 % 36.0 - 46.0 % [facility] Hemoglobin (Bld) [Mass/Vol] 13.6 g/dL 11.5 - 15.5 g/dL [facility] Immature granulocytes (Bld) [#/Vol] 0.05 10*3/uL <0.10 k/uL [facility] Immature granulocytes/100 WBC (Bld) 0.4 % [facility] Lymphocytes (Bld) [#/Vol] 1.86 10*3/uL 1.00 - 4.00 k/uL [facility] Lymphocytes/100 WBC (Bld) 15.1 % [facility] MCH (RBC) [Entitic mass] 25.9 pg Low 26.0 - 34.0 pg [facility] MCHC (RBC) [Mass/Vol] 32.5 g/dL 30.5 - 36.0 g/dL [facility] MCV (RBC) [Entitic vol] 79.8 fL Low 80.0 - 100.0 fL [facility] Monocytes (Bld) [#/Vol] 0.74 10*3/uL <0.87 k/uL [facility] Monocytes/100 WBC (Bld) 6.0 % [facility] Neutrophils (Bld) [#/Vol] 9.33 10*3/uL High 1.45 - 7.50 k/uL [facility] Neutrophils/100 WBC (Bld) 75.6 % [facility] Nucleated RBC (Bld) [#/Vol] <0.01 k/uL [facility] Nucleated RBC/100 WBC (Bld) [Ratio] 0.0 /100 WBC [facility] Platelet mean volume (Bld) [Entitic vol] 8.9 fL Low 9.0 - 12.7 fL [facility] Platelets (Bld) [#/Vol] 387 10*3/uL 150 - 400 k/uL [facility] RBC (Bld) [#/Vol] 5.25 10*6/uL High 3.90 - 5.2 0 m/uL [facility] WBC (Bld) [#/Vol] 12.34 10*3/uL High 3.70 - 11 .00 k/uL [facility] Basophils (Bld) [#/Vol] 0.06 10*3/uL Normal <0.11 [facility] Comment on above: Order Comment: Speci men Type: BLOOD SPECIMEN Ordering Facility: [facility] Address: [address] [place] [address], [address] [address] Performed By: #### I NFTBP #### [facility] CLIA [id number] [address] [place] [address] [place] Basophils/100 WBC (Bld) 0.5 % Normal [facility] Comment on above: Order Comment: Speci men Type: BLOOD SPECIMEN Ordering Facility: [facility] Address: [address] [place] [address], [address] [address] Performed By: #### I NFTBP #### [facility] CLIA [id number] [address] [place] [address] [place] Differential cell count method Nom (Bld) Auto Normal [facility] Comment on above: Order Comment: Speci men Type: BLOOD SPECIMEN Ordering Facility: [facility] Address: [address] [place] [address], [address], [place] [address] Performed By: #### I NFTBP #### [facility] CLIA [id number] [address] [place] [address] [place] Eosinophils (Bld) [#/Vol] 0.30 10*3/uL Normal <0.46 [facility] Comment on above: Order Comment: Speci men Type: BLOOD SPECIMEN Ordering Facility: [facility] [employer] [facility] Address: [address] [place] [address], [address], [place] [address] Performed By: #### I NFTBP #### [facility] [place] [id number] [address] [place] [address] [place] Eosinophils/100 WBC (Bld) 2.4 % Normal [facility] Comment on above: Order Comment: Speci men Type: BLOOD SPECIMEN [facility] Address: [address] [place] [address], [address], [place] [address] Performed By: #### I NFTBP #### [facility] [place] [id number] [address] [place] [address] [place] Erythrocyte distribution width (RBC) [Ratio] 14.7 % Normal 11.5-15.0 [facility] Comment on above: Order Comment: Speci men Type: BLOOD SPECIMEN [facility] Address: [address] [place] [address], [address] [address] Performed By: #### I NFTBP #### [facility] IA [id number] [address] [place] [address] [place] Hematocrit (Bld) [Volume fraction] 41.9 % Normal 36.0-46.0 [facility] Comment on above: Order Comment: Speci men Type: BLOOD SPECIMEN [facility] Address: [address] [place] [address], [address] [address] Performed By: #### I NFTBP #### [facility] [place] [id number] [address] [place] [address] [place] Hemoglobin (Bld) [Mass/Vol] 13.6 g/dL Normal 11.5-15.5 [facility] Comment on above: Order Comment: Speci men Type: BLOOD SPECIMEN [facility] Address: [address] [place] [address], [address], [place] [address] Performed By: #### I NFTBP #### [facility] CLIA [id number] [address] [place] [address] [place] Immature granulocytes (Bld) [#/Vol] 0.05 10*3/uL Normal <0.10 [facility] Comment on above: Order Comment: Speci men Type: BLOOD SPECIMEN [facility] Address: [address] [place] [address], [address], [place] [id number] Performed By: #### I NFTBP #### [facility] CLIA [id number] [address] [place] [address] [place] Immature granulocytes/100 WBC (Bld) 0.4 % Normal [facility] Comment on above: Order Comment: Speci men Type: BLOOD SPECIMEN [facility]ing Facility[facility] Address: [address] [place] [address], [address], [place] [address] Performed By: #### I NFTBP #### [facility] CLIA [id number] [address] [place] [address] [place] Lymphocytes (Bld) [#/Vol] 1.86 10*3/uL Normal 1.00-4.00 [facility] Comment on above: Order Comment: Speci men Type: BLOOD SPECIMEN [facility]ing Facility[facility] Address: [address] [place] [address], [address], [place] [address] Performed By: #### I NFTBP #### [facility] CLIA [id number] [address] [place] [address] [place] Lymphocytes/100 WBC (Bld) 15.1 % Normal [facility] Comment on above: Order Comment: Speci men Type: BLOOD SPECIMEN [facility]ing Facility[facility] Address: [address] [place] [address], [address], [place] [address] Performed By: #### I NFTBP #### [facility] CLIA [id number] [address] [place] [address] [place] MCH (RBC) [Entitic mass] 25.9 pg Low 26.0-34.0 [facility] Comment on above: Order Comment: Speci men Type: BLOOD SPECIMEN [facility]ing [facility] Address: [address] [place] [address], [address] [address] Performed By: #### I NFTBP #### [facility] CLIA [id number] [address] [place] [address] [place] MCHC (RBC) [Mass/Vol] 32.5 g/dL Normal 30.5-36.0 [facility] Comment on above: Order Comment: Speci men Type: BLOOD SPECIMEN [facility]ing [facility] Address: [address] [place] [address], [address] [address] Performed By: #### I NFTBP #### [facility] CLIA [id number] [address] [place] [address] [place] MCV (RBC) [Entitic vol] 79.8 fL Low 80.0-100.0 [facility] Comment on above: Order Comment: Speci men Type: BLOOD SPECIMEN [facility] Address: [address] [place] [address], [address] [address] Performed By: #### I NFTBP #### [facility] CLIA [id number] [address] [place] [address] [place] Monocytes (Bld) [#/Vol] 0.74 10*3/uL Normal <0.87 [facility] Comment on above: Order Comment: Speci men Type: BLOOD SPECIMEN [facility] Address: [address] [place] [address], [address] [address] Performed By: #### I NFTBP #### [facility] CLIA [id number] [address] [place] [address] [place] Monocytes/100 WBC (Bld) 6.0 % Normal [facility] Comment on above: Order Comment: Speci men Type: BLOOD SPECIMEN Ordering Facility: [facility] Address: [address] [place] [address], [address], [place] [address] Performed By: #### I NFTBP #### [facility] CLIA [id number] [address] [place] [address] [place] Neutrophils (Bld) [#/Vol] 9.33 10*3/uL High 1.45-7.50 [facility] Comment on above: Order Comment: Speci men Type: BLOOD SPECIMEN Ordering Facility: [facility] Address: [address] [place] [address], [address], [place] [address] Performed By: #### I NFTBP #### [facility] CLIA [id number] [address] [place] [address] [place] Neutrophils/100 WBC (Bld) 75.6 % Normal [facility] Comment on above: Order Comment: Speci men Type: BLOOD SPECIMEN Ordering Facility: [facility] Address: [address] [place] [address], [address], [place] [address] Performed By: #### I NFTBP #### [facility] CLIA [id number] [address] [place] [address] [place] Nucleated RBC (Bld) [#/Vol] 10*3/uL Normal <0.01 [facility] Comment on above: Order Comment: Speci men Type: BLOOD SPECIMEN [facility] Address: [address] [place] [address], [address], [place] [address] Performed By: #### I NFTBP #### [facility] CLIA [id number] [address] [place] [address] [place] Nucleated RBC/100 WBC (Bld) [Ratio] 0.0 /100 WBC Normal [facility] Comment on above: Order Comment: Speci men Type: BLOOD SPECIMEN [facility] Address: [address] [place] [address], [address] [phone] Performed By: #### I NFTBP #### [facility] IA [id number] [address] [place] [address] [place] Platelet mean volume (Bld) [Entitic vol] 8.9 fL Low 9.0-12.7 [facility] Comment on above: Order Comment: Speci men Type: BLOOD SPECIMEN Ordering Facility: [facility] Address: [address] [place] [address], [address] [phone] Performed By: #### I NFTBP #### [facility] IA [id number] [address] [place] [address] [place] Platelets (Bld) [#/Vol] 387 10*3/uL Normal 150-400 [facility] Comment on above: Order Comment: Speci men Type: BLOOD SPECIMEN Ordering Facility: [facility] Address: [address] [place] [address], [address] [place], [place] [address] Performed By: #### I NFTBP #### [facility] IA [id number] [address] [place] [address] [place] RBC (Bld) [#/Vol] 5.25 10*6/uL High 3.90-5.20 [facility] Comment on above: Order Comment: Speci men Type: BLOOD SPECIMEN Ordering Facility: [facility] Address: [address] [place] [address], [address] [place] [address] Performed By: #### I NFTBP #### [facility] IA [id number] [address] [place] [address] [place] WBC (Bld) [#/Vol] 12.34 10*3/uL High 3.70-11.00 [facility] Comment on above: Order Comment: Speci men Type: BLOOD SPECIMEN Ordering Facility: [facility] Address: [address] [place] [address], [address] [phone] Performed By: #### I NFTBP #### [facility] CLIA [id number] [address] [place] [address] [place] CNOVSPon 11-29-2023 CNOVSP Visit (SP) Office ([place]) MARGARET PRIETO ([id number]) 1990 F Date Time Provider Department 11/29/23 11:15 AM SHARIF JOSEPH During your visit today, we recorded the following information about you: Temperature Pulse Respiration Blood pressure 97.6 degrees 98/minute 16/minute 159/100 Weight Height 172.8 kg 1.651 m Sharif Joseph MD 12/05/2023 9:50 AM Signed NAME: Margaret Prieto CLINIC NO.: [id number] DATE OF SERVICE: November 29, 2023 (Jonelle) [...] including ECHO from 11/13/2022 and 11/23/2023 from [facility] which states -Echogenic density seen wihin [...] Xray orde (more content not included)... Normal [facility] Comprehensive metabolic 2000 panelon 11-29-2023 Albumin [Mass/Vol] 3.8 g/dL Low 3.9 - 4.9 g/dL [facility] ALP [Catalytic activity/Vol] 91 U/L 34 - 123 U/L [facility] ALT [Catalytic activity/Vol] 22 U/L 7 - 38 U/L [facility] Anion gap [Moles/Vol] 11 mmol/L 9 - 18 mmol/L [facility] AST [Catalytic activity/Vol] 17 U/L 13 - 35 U/L [facility] Bilirubin [Mass/Vol] 0.3 mg/dL 0.2 - 1 .3 mg/dL [facility] Calcium [Mass/Vol] 9.4 mg/dL 8.5 - 10. 2 mg/dL [facility] Chloride [Moles/Vol] 105 mmol/L 97 - 10 5 mmol/L [facility] CO2 [Moles/Vol] 24 mmol/L 22 - 30 mmol/L [facility] Creatinine [Mass/Vol] 0.83 mg/dL 0.58 - 0.96 mg/dL [facility] Estimated Glomerular Filtration Rate 95 mL/min/1.73m >=60 mL/min/1.73m [facility] Glucose [Mass/Vol] 117 mg/dL High 74 - 99 mg/dL [facility] Potassium [Moles/Vol] 4.4 mmol/L 3.7 - 5.1 mmol/L [facility] Protein [Mass/Vol] 8.1 g/dL High 6.3 - 8.0 g/dL [facility] Sodium [Moles/Vol] 140 mmol/L 136 - 144 mmol/L [facility] Urea nitrogen [Mass/Vol] 10 mg/dL 7 - 21 mg/dL [facility] Albumin [Mass/Vol] 3.8 g/dL Low 3.9-4.9 [facility] Comment on above: Order Comment: Speci men Type: BLOOD SPECIMEN Ordering Facility: [facility] Address: [address] [place] [address] Performed By: #### 5 7021-8 #### [facility] CLIA [id number] [address] [place] [address] ALP [Catalytic activity/Vol] 91 U/L Normal 34-123 [facility] Comment on above: Order Comment: Speci men Type: BLOOD SPECIMEN Ordering Facility: [facility] Address: [address] [place] [address] Performed By: #### 5 7021-8 #### [facility] CLIA [id number] [address] [place] [address] ALT [Catalytic activity/Vol] 22 U/L Normal 7-38 [facility] Comment on above: Order Comment: Speci men Type: BLOOD SPECIMEN Ordering Facility: [facility] Address: [address] [place] [address] Performed By: #### 5 7021-8 #### [facility] CLIA [id number] [address] [place] [address] Anion gap [Moles/Vol] 11 mmol/L Normal 9-18 [facility] Comment on above: Order Comment: Speci men Type: BLOOD SPECIMEN Ordering Facility: [facility] Address: [address] [place] [id number] Performed By: #### 5 7021-8 #### [facility] CLIA [id number] [address] [place] [address] AST [Catalytic activity/Vol] 17 U/L Normal 13-35 [facility] Comment on above: Order Comment: Speci men Type: BLOOD SPECIMEN Ordering Facility: [facility] Address: [address] [place], [place] [address] Performed By: #### 5 7021-8 #### [facility] CLIA [id number] [address] [place] [address] Bilirubin [Mass/Vol] 0.3 mg/dL Normal 0.2-1.3 [facility] Comment on above: Order Comment: Speci men Type: BLOOD SPECIMEN Ordering Facility: [facility] Address: [address] [place], [place] [address] Performed By: #### 5 7021-8 #### [facility] CLIA [id number] [address] [place] [address] Calcium [Mass/Vol] 9.4 mg/dL Normal 8.5-10.2 [facility] Comment on above: Order Comment: Speci men Type: BLOOD SPECIMEN Ordering Facility: [facility] Address: [address] [place] [address] Performed By: #### 5 7021-8 #### [facility] CLIA [id number] [address] [place] [address] Chloride [Moles/Vol] 105 mmol/L Normal 97-105 [facility] Comment on above: Order Comment: Speci men Type: BLOOD SPECIMEN Ordering Facility: [facility] Address: [address] [place] [address] Performed By: #### 5 7021-8 #### [facility] CLIA [id number] [address] [place] [address] CO2 [Moles/Vol] 24 mmol/L Normal 22-30 [facility] Comment on above: Order Comment: Speci men Type: BLOOD SPECIMEN Ordering Facility: [facility] Address: [address] [place], [place] [address] Performed By: #### 5 7021-8 #### [facility] CLIA [id number] [address] [place] [address] Creatinine [Mass/Vol] 0.83 mg/dL Normal 0.58-0.96 [facility] Comment on above: Order Comment: Speci men Type: BLOOD SPECIMEN Ordering Facility: [facility] Address: [address] [place] [address] Performed By: #### 5 7021-8 #### [facility] CLIA [id number] [address] [place] [address] Creatinine and Glomerular filtration rate.predicted panel (S/P/Bld) 95 mL/min/1.73m??? Normal >=60 [facility] Comment on above: Order Comment: Speci men Type: BLOOD SPECIMEN Ordering Facility: [facility] Address: [address] [place] [address] Result Comment: Faye mated Glomerular Filtration Rate [...] GFR. Performed By: #### 5 7021-8 #### [facility] CLIA [id number] [address] [place] [address] Glucose [Mass/Vol] 117 mg/dL High 74-99 [facility] Comment on above: Order Comment: Speci men Type: BLOOD SPECIMEN Ordering Facility: [facility] Address: [address] [place], [place] [address] Result Comment: The [place] Diabetes Association (ADA) provides guidance for cutoff [...] Standards of Medical Care in Diabetes 2016, [place] Diabetes Association. Diabetes Care. 2016.39(Suppl 1). Performed By: #### 5 7021-8 #### [facility] CLIA [id number] [address] [place] [address] Potassium [Moles/Vol] 4.4 mmol/L Normal 3.7-5.1 [facility] Comment on above: Order Comment: Speci gilberto Type: BLOOD SPECIMEN Ordering Facility: [facility] Address: [address] [place] [address] Performed By: #### 5 7021-8 #### [facility] CLIA [id number] [address] [place] [address] Protein [Mass/Vol] 8.1 g/dL High 6.3-8.0 [facility] Comment on above: Order Comment: Nima macias Type: BLOOD SPECIMEN Ordering Facility: [facility] Address: [address] [place] [address] Performed By: #### 5 7021-8 #### [facility] CLIA [id number] [address] [place] [address] Sodium [Moles/Vol] 140 mmol/L Normal 136-144 [facility] Comment on above: Order Comment: Husseini gilberto Type: BLOOD SPECIMEN Ordering Facility: [facility] Address: [address] [place] [address] Performed By: #### 5 7021-8 #### [facility] CLIA [id number] [address] [place] [address] Urea nitrogen [Mass/Vol] 10 mg/dL Normal 7-21 [facility] Comment on above: Order Comment: Speci men Type: BLOOD SPECIMEN Ordering Facility: [facility] Address: [address] [place] [address] Performed By: #### 5 7021-8 #### [facility] CLIA [id number] [address] [place] [address] Ferritin SerPl-mCncon 2023 Ferritin [Mass/Vol] 72.5 ng/mL Normal 14.7-205.1 [facility] Comment on above: Order Comment: Speci men Type: BLOOD SPECIMEN Ordering Facility: [facility] Address: [address] [place] [address] Performed By: #### 5 7021-8 #### [facility] CLIA [id number] [address] [place] [address] Folate SerPl-mCncon 11-29-19 Folate [Mass/Vol] 12.6 ng/mL Normal >4.7 [facility] Comment on above: Order Comment: Speci men Type: BLOOD SPECIMEN Ordering Facility: [facility] Address: [address] [place] [address] Performed By: #### 5 7021-8 #### [facility] CLIA [id number] [address] [place] [address] Iron and Iron binding capaci ty panelon 11-29-2023 Iron [Mass/Vol] 34 ug/dL Low 41-186 [facility] Comment on above: Order Comment: Speci men Type: BLOOD SPECIMEN Ordering Facility: [facility] Address: [address] [place] [address] Performed By: #### 5 7021-8 #### [facility] CLIA [id number] [address] [place] [address] Iron binding capacity [Mass/Vol] 375 ug/dL Normal 232-386 [facility] Comment on above: Order Comment: Speci men Type: BLOOD SPECIMEN Ordering Facility: [facility] Address: [address] [place] [address] Performed By: #### 5 7021-8 #### [facility] CLIA [id number] [address] [place] [address] Iron/TIBC [Molar ratio] 9.1 % Low 15.0-57.0 [facility] Comment on above: Order Comment: Speci men Type: BLOOD SPECIMEN Ordering Facility: [facility] Address: [address] [place] [address] Performed By: #### 5 7021-8 #### [facility] CLIA [id number] [address] [place] [address] Vit B12 [facility] 024 Cobalamin (Vitamin B12) [Mass/Vol] 740 pg/mL Normal 232-1245 [facility] Comment on above: Order Comment: Speci men Type: BLOOD SPECIMEN Ordering Facility: [facility] Address: [address] [place] [address] Performed By: #### 5 7021-8 #### [facility] CLIA [id number] [address] [place] [address] CTA CHESTon 11-18-2023 CT CTA CHEST [...] Perry MD on 11/18/2023 10:30 AM Normal [facility] XR CHEST 2 VWSon 11-15-2023 [...] Rodríguez MD on 11/15/2023 9:26 AM Normal [facility] APTTon 11-09-2023 aPTT Coag (PPP) [Time] 30 s [facility] Comment on above: NEW REFERENCE RANGE BASIC METABOLIC PANLon 11-08 Anion gap [Moles/Vol] 9 mmol/L Normal 5-15 [facility] Comment on above: Performed By: #### P INR, 70258-7 #### [facility] ([id number]) [address] [place] [address] #### BMP #### [facility] ([id number]) [address] [place] [address] Calcium [Mass/Vol] 8.8 mg/dL Normal 8.5-10.5 [facility] Comment on above: Performed By: #### P INR, 64604-8 #### [facility] ([id number]) [address] [place] [address] #### BMP #### [facility] ([id number]) [address] [place] [address] Chloride [Moles/Vol] 103 mmol/L Normal 98-109 [facility] Comment on above: Performed By: #### P INR, 14720-5 #### [facility] ([id number]) [address] [place] [address] #### BMP #### [facility] ([id number]) [address] [place] [address], [address] [place] [address] CO2 [Moles/Vol] 27 mmol/L Normal 22-32 [facility] Comment on above: Performed By: #### P INR, 93882-7 #### [facility] ([id number]) [address] [place] [address] #### BMP #### [facility] ([id number]) [address] [place] [address], [address] [place] [address] Creatinine [Mass/Vol] 0.70 mg/dL Normal 0.40-1.00 [facility] Comment on above: Result Comment: METH OD TRACEABLE TO IDMS STANDARD Performed By: #### P INR, 44314-1 #### [facility] ([id number]) [address] [place] [address] #### BMP #### [facility] ([id number]) [address] [place] [address], [address] [place] [address] eGFR (CKD-EPI) NON-RACE DEPENDENT >90 Normal >59 [facility] Comment on above: Result Comment: Reported eGFR is based on the CKD-EPI 2020 equation that does not use a race coefficient. Performed By: #### P INR, 96879-7 #### [facility] ([id number]) [address] [place] [address] #### BMP #### [facility] ([id number]) [address] [place] [address], [address] [place] [address] Glucose [Mass/Vol] 116 mg/dL High 65-99 [facility] Comment on above: Performed By: #### P INR, 73040-4 #### [facility] ([id number]) [address] [place] [address] #### BMP #### [facility] ([id number]) [address] [place] [address] Potassium [Moles/Vol] 3.9 mmol/L Normal 3.5-5.0 [facility] Comment on above: Performed By: #### P INR, 66026-9 #### [facility] ([id number]) [address] [place] [address] #### BMP #### [facility] ([id number]) [address] [place] [address] Sodium [Moles/Vol] 139 mmol/L Normal 134-146 [facility] Comment on above: Performed By: #### P INR, 79558-8 #### [facility] ([id number]) [address] [place] [address]67[address] #### BMP #### [facility] ([id number]) [address] [place] [address] Urea nitrogen [Mass/Vol] 13 mg/dL Normal 5-23 [facility] Comment on above: Performed By: #### P INR, 24527-2 #### [facility] ([id number]) [address] [place] [address] #### BMP #### [facility] ([id number]) [address] [place] [address] Basic Metabolic Panelon 03-0 Anion gap [Moles/Vol] 9 mmol/L 5 - 15 mmol/L [facility] Calcium [Mass/Vol] 8.8 mg/dL 8.5 - 10. 5 mg/dL [facility] Chloride [Moles/Vol] 103 mmol/L 98 - 10 9 mmol/L [facility] CO2 [Moles/Vol] 27 mmol/L 22 - 32 mmol/L [facility] Creatinine [Mass/Vol] 0.70 mg/dL 0.40 - 1.00 mg/dL [facility] Comment on above: METHOD TRACEABLE TO IDMS STANDARD eGFR (CKD-EPI)non-race dependent - PINF [facility] Comment on above: Reported eGFR is based on the CKD-EPI 2020 equation that does not use a race coefficient. Glucose [Mass/Vol] 116 mg/dL High 65 - 99 mg/dL [facility] Interpretation and review of laboratory results Abnormal [facility] Potassium [Moles/Vol] 3.9 mmol/L 3.5 - 5.0 mmol/L [facility] Sodium [Moles/Vol] 139 mmol/L 134 - 146 mmol/L [facility] Urea nitrogen [Mass/Vol] 13 mg/dL 5 - 23 mg/dL [facility] ECG 12 leadon 11-09-2023 TRACEMASTERVUE [facility] No Panel Informationon 11-08 [facility] PROTIME AND INRon 11-09-2023 INR Coag (PPP) [Relative time] 1.0 {INR} Normal 0.8-1.1 [facility] Comment on above: Performed By: #### P INR, 72664-2 #### [facility] ([id number]) [address] [place] [address]69 #### BMP #### [facility] ([id number]) [address] [place] [address] PT Coag (PPP) [Time] 12.2 s Normal 9.8-13.2 [facility] Comment on above: Result Comment: NEW REFERENCE RANGE Performed By: #### P INR, 85187-1 #### [facility] ([id number]) [address] [place] [address] #### BMP #### [facility] ([id number]) [address] [place] [address] Protime & INRon 11-09-2023 INR Coag (PPP) [Relative time] 1.0 {INR} [facility] PT Coag (PPP) [Time] 12.2 s [facility] Comment on above: NEW REFERENCE RANGE aPTT Coag (PPP) [Time]on aPTT Coag (Bld) [Time] 30 s Normal 26-37 [facility] Comment on above: Result Comment: NEW REFERENCE RANGE Performed By: #### P INR, 41074-8 #### [facility] ([id number]) [address] [facility] [place] [address] #### BMP #### [facility] ([id number]) [address] [place] [address], [address] [place] [address] C. difficile toxin genes EVARISTO +probe Ql (Stl)on 11-08-2023 [facility] Gastrointestinal pathogens D NA and RNA panel EVARISTO+non-probe (Stl)on 11-08-2023 Adenovirus 40+41 DNA EVARISTO+non-probe Ql (Stl) Not detected Not Detected^Not Detected [facility] Astrovirus subtypes 1-8 RNA EVARISTO+non-probe Ql (Stl) Not detected Not Detected^Not Detected [facility] C. cayetanensis DNA EVARISTO+non-probe Ql (Stl) Not detected Not Detected^Not Detected [facility] C. coli+jejuni+upsalien sis DNA EVARISTO+non-probe Ql (Stl) Not detected Not Detected^Not Detected [facility] Cryptosporidium sp DNA EVARISTO+non-probe Ql (Stl) Not detected Not Detected^Not Detected [facility] E. coli enteroaggregative Jeevan plasmid aggR+aatA genes EVARISTO+non-probe Ql (Stl) Not detected Not Detected^Not Detected [facility] E. coli enteropathogenic eae gene EVARISTO+non-probe Ql (Stl) Not detected Not Detected^Not Detected [facility] E. coli enterotoxigenic ltA+st1a+st1b genes EVARISTO+non-probe Ql (Stl) Not detected Not Detected^Not Detected [facility] E. coli stx1+stx2 genes EVARISTO+non-probe Ql (Stl) Not detected Not Detected^Not Detected [facility] E. histolytica DNA EVARISTO+non-probe Ql (Stl) Not detected Not Detected^Not Detected [facility] G. lamblia DNA EVARISTO+non-probe Ql (Stl) Not detected Not Detected^Not Detected [facility] Norovirus genogroup I+II RNA EVARISTO+non-probe Ql (Stl) Not detected Not Detected^Not Detected [facility] P. shigelloides DNA EVARISTO+non-probe Ql (Stl) Not detected Not Detected^Not Detected [facility] Rotavirus A RNA EVARISTO+non-probe Ql (Stl) Not detected Not Detected^Not Detected [facility] S. enterica+bongori DNA EVARISTO+non-probe Ql (Stl) Not detected Not Detected^Not Detected [facility] Sapovirus genogroups I+II+IV+V RNA EVARISTO+non-probe Ql (Stl) Not detected Not Detected^Not Detected [facility] Shigella species+EIEC invasion plasmid antigen H ipaH gene EVARISTO+non-probe Ql (Stl) Not detected Not Detected^Not Detected [facility] Specimen source Nom (Body fld) STOOL [facility] V. cholerae DNA EVARISTO+non-probe Ql (Stl) Not detected Not Detected^Not Detected [facility] V. cholerae+parahaemoly ticus+vulnificus DNA EVARISTO+non-probe Ql (Stl) Not detected Not Detected^Not Detected [facility] Y. enterocolitica DNA EVARISTO+non-probe Ql (Stl) Not detected Not Detected^Not Detected [facility] - Microbiology an d Antimicrobial susceptibilityon 11-08-2023 C. difficile toxin genes EVARISTO+probe Ql (Stl) Negative Presumptive Negative^Pres umptive Negative [facility] C DIFFICILE BY PCRon 024 C. difficile toxin genes EVARISTO+probe Ql (Stl) TOXIGENIC C DIFF Negative (qualifier value) 027 NAP1 Negative (qualifier value) Normal PRNEG [facility] Comment on above: Performed By: #### 5 4067-4, 96194-4, 45980-9 #### [facility] ([id number]) [address] [place] [address], [address] [place] [address] Calprotectin (Stl) [Mass/Mas s]on 11-07-2023 CALPROTECTIN STOOL See Below [facility] Comment on above: Result Comment: NOTE TEST RESULT FLAG UNIT REF.RANGE ----- CALPROTECTIN, FECAL QUANTITATIVE 11.9 ug/g <50 CALPROTECTIN, FECAL INTERP Normal Normal On January 23, 2023, [facility] [employer] implemented a new fecal calprotectin method, the [employer] Calprotectin assay. For assistance with interpretation of results in patients undergoing serial monitoring, contact Client Services at [phone] or [phone] to discuss options, preferably within 7 days of issuing this report. Interpretation: <50.0 ug/g: Normal 50.0 ug/g - 120.0 ug/g: Borderline elevated. Re-evaluation in 4-6 weeks is recommended if clinically indicated. >120.0 ug/g: Elevated Test Performed By: [place] [address] Reproduction Specialist: John Kaiser III, M.D. CLIA #[id number] Performed By: #### 5 4067-4, 01254-6, 37722-6 #### [facility] ([id number]) [address] [place] [address] [address] [place] [address] GI PANELon 11-07-2023 Gastrointestinal pathogens DNA and [...] SAPOVIRUS Not detected (qualifier value) Normal NDET [facility] Comment on above: Performed By: #### 5 4067-4, 90076-3, 70416-2 #### [facility] ([id number]) [address] [place] [address], [address] [place] [address] POCT Glucose Fingerstickon 0 10-08-2023 Glucose [Mass/Vol] 119 mg/dL Abnormal 65 - 99 mg/dL [facility] Interpretation and review of laboratory results Abnormal [facility] CBC AUTO DIFFon 11-22-2022 BASO # 0.0 103/ul Normal 0.0-0.1 [facility] Comment on above: Performed By: #### H H #### [facility] [address] [address] [address] Ron Sims Basophils/100 WBC (Bld) 0.3 % Normal 0.2-2.0 [facility] Comment on above: Performed By: #### H H #### [facility] [address] [place] [address] Dr. Ron Sims EO # 0.1 103/ul Normal 0.0-0.7 [facility] Comment on above: Performed By: #### H H #### [facility] [address] [address] [address] Ron Sims Eosinophils/100 WBC (Bld) 0.8 % Critically low 0.9-7.0 [facility] Comment on above: Performed By: #### H H #### [facility] [address] [address] [address] Ron Sims Erythrocyte distribution width (RBC) [Ratio] 13.5 % Normal 11.0-15.0 [facility] Comment on above: Performed By: #### H H #### [facility] [address] [address] [address] Ron Sims Hematocrit (Bld) [Volume fraction] 42.3 % Normal 36.0-48.0 [facility] Comment on above: Performed By: #### H H #### [facility] [address] [place] [address] Dr. Ron Sims Hemoglobin (Bld) [Mass/Vol] 13.9 g/dL Normal 12.0-16.0 [facility] Comment on above: Performed By: #### H H #### [facility] [address] [place] [address] Dr. Ron Sims IG # 0.08 10e3/ul Critically high 0.00-0.03 [facility] Comment on above: Performed By: #### H H #### [facility] [address] [place] [address] Dr. Ron Sims IG % 0.9 % Critically high 0.0-0.5 [facility] Comment on above: Performed By: #### H H #### [facility] [address] [place] [address] Dr. Ron Sims LYMPH # 0.8 103/ul Critically low 1.2-3.8 [facility] Comment on above: Performed By: #### H H #### [facility] [address] [place] [address] Dr. Ron Sims Lymphocytes/100 WBC (Bld) 9.4 % Critically low 20.5-60.0 [facility] Comment on above: Performed By: #### H H #### [facility] [address] [place] [address] Dr. Ron Sims MANUAL DIFF REQ NO Normal [facility] Comment on above: Performed By: #### H H #### [facility] [address] [place] [address] Dr. Ron Sims MCH (RBC) [Entitic mass] 26.8 pg Normal 26.7-34.0 [facility] Comment on above: Performed By: #### H H #### [facility] [address] [address] [address] Rno Sims MCHC (RBC) [Mass/Vol] 32.9 g/dL Normal 29.9-35.2 [facility] Comment on above: Performed By: #### H H #### [facility] [address] [address] [address] Ron Sims MCV (RBC) [Entitic vol] 81.7 fL Normal 81.0-99.0 [facility] Comment on above: Performed By: #### H H #### [facility] [address] [address] [address] Ron Sims MONO # 0.6 103/ul Normal 0.3-0.8 [facility] Comment on above: Performed By: #### H H #### [facility] [address] [place] [address] Dr. Ron Sims Monocytes/100 WBC (Bld) 6.3 % Normal 1.7-12.0 [facility] Comment on above: Performed By: #### H H #### [facility] [address] [address] [address] Ron Sims NEUT # 7.2 103/ul Critically high 1.4-6.5 [facility] Comment on above: Performed By: #### H H #### [facility] [address] [place] [address] Dr. Ron Sims Neutrophils/100 WBC (Bld) 82.3 % Critically high 43.0-75.0 [facility] Comment on above: Performed By: #### H H #### [facility] [address] [address] [address] Ron Sims Platelet mean volume (Bld) [Entitic vol] 8.6 fL Critically low 9.5-13.5 [facility] Comment on above: Performed By: #### H H #### [facility] [address] [address] [address] Ron Sims PLT 323 103/ul Normal 150-450 [facility] Comment on above: Performed By: #### H H #### [facility] [id number] Ron Sims RBC 5.18 106/ul Normal 4.20-5.40 [facility] Comment on above: Performed By: #### H H #### [facility] [address] [address] [address] Ron Sims WBC 8.8 103/ul Normal 4.0-11.0 [facility] Comment on above: Performed By: #### H H #### [facility] [id number] Ron Sims CULTURE BLOODon 11-22-2022 Microscopic examination of blood, culture Culture Observations: NO GROWTH AT 5 DAYS. Normal [facility] Comment on above: Performed By: #### H IV12 #### [facility] [address] [address] [address] Ron Sims ECHO LIMITED STUDYon 023 ECHO LIMITED STUDY Patient: MARGARET PRIETO Exam Date: 11/22/2022 : 1990 Gender:F Ordering : DR ONOFRE MAYFIELD D.O. Admission #: [id number] Family : Order #: [id number] CLICK HERE TO VIEW EXAM ECHOCARDIOGRAM REPORT [...] M.D. on 11/22/2022 at 14:54 Normal [facility] LACTATE/LACTIC ACIDon 2022 Lactate [Moles/Vol] 1.5 mmol/L Normal 0.4-2.0 [facility] Comment on above: Performed By: #### L ACT #### [facility] [address] [place] [address] Dr. Ron Sims Lactate [Moles/Vol] 2.6 mmol/L Critically high 0.4-2.0 [facility] Comment on above: Performed By: #### L ACT #### [facility] [address] [address] [address] Ron Sims PROF CHEM 8 (BAS METB)on Anion gap [Moles/Vol] 16.8 mmol/L Normal [facility] Comment on above: Performed By: #### H H #### [facility] [address] [place] [address] Dr. Ron Sims Calcium [Mass/Vol] 8.9 mg/dL Normal 8.5-10.1 [facility] Comment on above: Performed By: #### H H #### [facility] [address] [address] [address] Ron Sims Chloride [Moles/Vol] 94 mmol/L Critically low 98-107 [facility] Comment on above: Performed By: #### H H #### [facility] [address] [address] [address] Ron Sims CO2 [Moles/Vol] 25.3 mmol/L Normal 21.0-32.0 [facility] Comment on above: Performed By: #### H H #### [facility] [address] [place] [address] Dr. Ron Sims Creatinine [Mass/Vol] 0.88 mg/dL Normal 0.55-1.02 [facility] Comment on above: Performed By: #### H H #### [facility] [address] [place] [address] Dr. Ron Sims EGFR-AF NEPALESE >60 Normal >=60 [facility] Comment on above: Performed By: #### H H #### [facility] [address] [place] [address] Dr. Rno Sims EGFR-NON AF NEPALESE >60 Normal >=60 [facility] Comment on above: Performed By: #### H H #### [facility] [address] [place] [address] Dr. Ron Sims Glucose [Mass/Vol] 112 mg/dL Critically high 74-106 [facility] Comment on above: Performed By: #### H H #### [facility] [address] [place] [address] Dr. Ron Sims Potassium [Moles/Vol] 3.1 mmol/L Critically low 3.5-5.1 [facility] Comment on above: Performed By: #### H H #### [facility] [address] [place] [address] Dr. Ron Sims Sodium [Moles/Vol] 133 mmol/L Critically low 136-145 [facility] Comment on above: Performed By: #### H H #### [facility] [address] [place] [address] Dr. Ron Sims Urea nitrogen [Mass/Vol] 12.0 mg/dL Normal 7.0-18.0 [facility] Comment on above: Performed By: #### H H #### [facility] [address] [place] [address] Dr. Ron Sims Urea nitrogen/Creatinine [Mass ratio] 13.6 mg/mg Normal [facility] Comment on above: Performed By: #### H H #### [facility] [address] [place] [address] Dr. Ron Sims PROTIMEon 11-22-2022 INR Coag (PPP) [Relative time] 2.20 {INR} Normal [facility] Comment on above: Performed By: #### P T, PTT #### [facility] [address] [place] [address] Dr. Ron Sims INR GUIDELINES SEE BELOW Normal [facility] Comment on above: Result Comment: MICHELINE RED INR: 2.0 - 3.0 CONDITIONS NOT LISTED BELOW 2.5 - 3.5 FOR PROSTHETIC HEART VALVE REPLACEMENT 2.5 - 3.5 RECURRENT THROMBOSIS Performed By: #### P T, PTT #### [facility] [address] [place] [address] Dr. Ron Sims PT Coag (PPP) [Time] 22.3 s Critically high 9.0-11.6 [facility] Comment on above: Performed By: #### P T, PTT #### [facility] [address] [place] [address] Dr. Ron Sims PTTon 11-22-2022 aPTT Coag (Bld) [Time] 48.2 s Critically high 22.3-36.2 [facility] Comment on above: Performed By: #### P T, PTT #### [facility] [address] [place] [address] Dr. Ron Sims XR CHEST 1 Von [...] by: SANIA TIDWELL Date: 2022-11-22 12:16 Normal [facility] POLINA EIA W/REFLEX 9 BIOMARKER Son 10-24-2022 POLINA Direct Negative Normal Negative [facility] Comment on above: Performed By: #### H IV12 #### [facility] [address] [place] [address] Dr. Ron Sims HEPATITIS C AB CASCADE TO QU ANT PCR GENOon 10-24-2022 HCV AB Non-Reactive Normal Non Reactive [facility] Comment on above: Performed By: #### H EPCASC #### [facility] [facility] [address] [address] [address] Ron Sims Interpretation: Comment Normal [facility] Comment on above: Result Comment: Not infected with HCV unless early or acute infection is suspected (which may be delayed in an immunocompromised individual), or other evidence exists to indicate HCV infection. Performed By: #### H EPCASC #### [facility] [address] [address] [address] Ron Sims HIV 1 AND 2 WITH REFLEXon HIV Screen 4th Generation wRfx Non-Reactive Normal Non Reactive [facility] Comment on above: Result Comment: HIV Negative HIV-1/HIV-2 antibodies and HIV-1 p24 antigen were NOT detected. There is no laboratory evidence of HIV infection. Performed By: #### H IV12 #### [facility] [address] [address] [address] Ron Sims CPKon 10-23-2022 CK [Catalytic activity/Vol] 36 U/L Normal 26-192 [facility] Comment on above: Performed By: #### H H #### [facility] [address] [place] [address] Dr. Ron Sims GLYCOHEMOGLOBIN A1Con 2022 ADA RECOMMENDATION SEE BELOW Normal [facility] [place] Comment on above: Result Comment: ADA RECOMMENDED LIMIT 4.0 - 6.0 ADA THERAPEUTIC TARGET < 7.0 ACTION SUGGESTED > 7.0 Performed By: #### A 1C #### [facility] [address] [place] [address] Dr. Ron Sims Glucose [Mass/Vol] 111 mg/dL Normal [facility] Comment on above: Performed By: #### A 1C #### [facility] [address] [place] [address] Dr. Ron Sims HbA1c (Bld) [Mass fraction] 5.5 % Normal 4.5-6.2 [facility] Comment on above: Performed By: #### A 1C #### [facility] [address] [place] [address] Dr. Ron Sims HEMOGRAM AND PLATELon 2022 Hematocrit (Bld) [Volume fraction] 38.4 % Normal 36.0-48.0 [facility] Comment on above: Performed By: #### H H #### [facility] [address] [place] [address] Dr. Ron Sims Hemoglobin (Bld) [Mass/Vol] 12.6 g/dL Normal 12.0-16.0 [facility] Comment on above: Performed By: #### H H #### [facility] [address] [place] [address] Dr. Ron Sims MCH (RBC) [Entitic mass] 27.0 pg Normal 26.7-34.0 [facility] Comment on above: Performed By: #### H H #### [facility] [address] [place] [address] Dr. Ron Sims MCHC (RBC) [Mass/Vol] 32.8 g/dL Normal 29.9-35.2 [facility] Comment on above: Performed By: #### H H #### [facility] [address] [place] [address] Dr. Ron Sims MCV (RBC) [Entitic vol] 82.2 fL Normal 81.0-99.0 [facility] Comment on above: Performed By: #### H H #### [facility] [address] [place] [address] Dr. Ron Sims PLT 337 103/ul Normal 150-450 [facility] Comment on above: Performed By: #### H H #### [facility] [address] [place] [address] Dr. Ron Sims RBC 4.67 106/ul Normal 4.20-5.40 [facility] Comment on above: Performed By: #### H H #### [facility] [address] [place] [address] Dr. Ron Sims WBC 9.7 103/ul Normal 4.0-11.0 [facility] Comment on above: Performed By: #### H H #### [facility] [address] [place] [address] Dr. Ron Sims MYOGLOBINon 10-23-2022 NOEMI 51 ng/mL Normal 9-82 [facility] Comment on above: Performed By: #### H H #### [facility] [address] [place] [address] Dr. Ron Sims PROF 14(COMP METB)on 023 Albumin [Mass/Vol] 3.1 g/dL Critically low 3.4-5.0 [facility] Comment on above: Performed By: #### P T, PTT #### [facility] [address] [place] [address] Dr. Ron Sims Albumin/Globulin [Mass ratio] 0.7 {ratio} Normal [facility] Comment on above: Performed By: #### P T, PTT #### [facility] [address] [place] [address] Dr. Ron Sims ALP [Catalytic activity/Vol] 79 U/L Normal 46-116 [facility] Comment on above: Performed By: #### P T, PTT #### [facility] [address] [place] [address] Dr. Ron Sims ALT [Catalytic activity/Vol] 28 U/L Normal 14-59 [facility] Comment on above: Performed By: #### P T, PTT #### [facility] [address] [place] [address] Dr. Ron Sims Anion gap [Moles/Vol] 12.2 mmol/L Normal [facility] Comment on above: Performed By: #### P T, PTT #### [facility] [address] [address] [address] Ron Sims AST [Catalytic activity/Vol] 17 U/L Normal 15-37 [facility] Comment on above: Performed By: #### P T, PTT #### [facility] [address] [place] [address] Dr. Ron Sims Bilirubin [Mass/Vol] 0.4 mg/dL Normal 0.2-1.0 [facility] Comment on above: Performed By: #### P T, PTT #### [facility] [address] [place] [address] Dr. Ron Sims Calcium [Mass/Vol] 9.0 mg/dL Normal 8.5-10.1 [facility] [place] Comment on above: Performed By: #### P T, PTT #### [facility] [address] [place] [address] Dr. Ron Sims Chloride [Moles/Vol] 101 mmol/L Normal 98-107 [facility] Comment on above: Performed By: #### P T, PTT #### [facility] [address] [place] [address] Dr. Ron Sims CO2 [Moles/Vol] 28.5 mmol/L Normal 21.0-32.[address] [facility] Comment on above: Performed By: #### P T, PTT #### [facility] [address] [place] [address] Dr. Ron Sims Creatinine [Mass/Vol] 0.88 mg/dL Normal 0.55-1.02 [facility] Comment on above: Performed By: #### P T, PTT #### [facility] [address] [place] [address] Dr. Ron Sims EGFR-AF NEPALESE >60 Normal >=60 [facility] Comment on above: Performed By: #### P T, PTT #### [facility] [address] [place] [address] Dr. Ron Sims EGFR-NON AF NEPALESE >60 Normal >=60 [facility] Comment on above: Performed By: #### P T, PTT #### [facility] [address] [place] [address] Dr. Ron Sims Globulin (S) [Mass/Vol] 4.6 g/dL Normal [facility] Comment on above: Performed By: #### P T, PTT #### [facility] [address] [address] [address] Ron Sims Glucose [Mass/Vol] 96 mg/dL Normal 74-106 [facility] Comment on above: Performed By: #### P T, PTT #### [facility] [address] [place] [address] Dr. Ron Sims Potassium [Moles/Vol] 3.7 mmol/L Normal 3.5-5.1 [facility] Comment on above: Performed By: #### P T, PTT #### [facility] [address] [place] [address] Dr. Ron Sims Protein [Mass/Vol] 7.7 g/dL Normal 6.4-8.2 [facility] Comment on above: Performed By: #### P T, PTT #### [facility] [address] [place] [address] Dr. Ron Sims Sodium [Moles/Vol] 138 mmol/L Normal 136-145 [facility] Comment on above: Performed By: #### P T, PTT #### [facility] [address] [place] [address] Dr. Ron Sims Urea nitrogen [Mass/Vol] 12.0 mg/dL Normal 7.0-18.0 [facility] Comment on above: Performed By: #### P T, PTT #### [facility] [address] [place] [address] Dr. Ron Sims Urea nitrogen/Creatinine [Mass ratio] 13.6 mg/mg Normal [facility] Comment on above: Performed By: #### P T, PTT #### [facility] [address] [place] [address] Dr. Ron Sims TSHon 10-23-2022 TSH 2.891 uIU/mL Normal 0.358-3.740 [facility] Comment on above: Performed By: #### P T, PTT #### [facility] [address] [place] [address] Dr. Ron Sims VITAMIN B12on 10-23-2022 Cobalamin (Vitamin B12) [Mass/Vol] 618.0 pg/mL Normal 193.0-986.0 [facility] Comment on above: Performed By: #### H H #### [facility] [address] [place] [address] Dr. Ron Sims VITAMIN D 25 OHon 10-23-2022 VIT D 25-OH 18.0 ng/mL Normal [facility] Comment on above: Performed By: #### H H #### [facility] [address] [place] [address] Dr. Ron Sims VIT D RANGES SEE BELOW Normal [facility] Comment on above: Result Comment: <20 ng/mL Vit D deficient 20 - <30 ng/mL Vit D insufficient 30 - 100 ng/mL Vit D sufficient >100 ng/mL Potential Toxicity Performed By: #### H H #### [facility] [address] [place] [address] Dr. Ron Sims CBC AUTO DIFFon 09-26-2022 BASO # 0.0 103/ul Normal 0.0-0.1 [facility] Comment on above: Performed By: #### H H #### [facility] [address] [place] [address] Dr. Ron Sims Basophils/100 WBC (Bld) 0.5 % Normal 0.2-2.0 [facility] Comment on above: Performed By: #### H H #### [facility] [address] [place] [address] Dr. Ron Sims EO # 0.1 103/ul Normal 0.0-0.7 [facility] Comment on above: Performed By: #### H H #### [facility] [address] [place] [address] Dr. Ron Sims Eosinophils/100 WBC (Bld) 1.5 % Normal 0.9-7.0 [facility] Comment on above: Performed By: #### H H #### [facility] [address] [place] [address] Dr. Ron Sims Erythrocyte distribution width (RBC) [Ratio] 13.3 % Normal 11.0-15.0 [facility] Comment on above: Performed By: #### H H #### [facility] [address] [place] [address] Dr. Ron Sims Hematocrit (Bld) [Volume fraction] 41.3 % Normal 36.0-48.0 [facility] Comment on above: Performed By: #### H H #### [facility] [address] [place] [address] Dr. Ron Sims Hemoglobin (Bld) [Mass/Vol] 13.6 g/dL Normal 12.0-16.0 [facility] Comment on above: Performed By: #### H H #### [facility] [address] [place] [address] Dr. Ron Sims IG # 0.03 10e3/ul Normal 0.00-0.03 [facility] Comment on above: Performed By: #### H H #### [facility] [address] [place] [address] Dr. Ron Sims IG % 0.3 % Normal 0.0-0.5 [facility] Comment on above: Performed By: #### H H #### [facility] [address] [place] [address] Dr. Ron Sims LYMPH # 1.5 103/ul Normal 1.2-3.8 [facility] Comment on above: Performed By: #### H H #### [facility] [address] [place] [address] Dr. Ron Sims Lymphocytes/100 WBC (Bld) 16.9 % Critically low 20.5-60.0 [facility] Comment on above: Performed By: #### H H #### [facility] [address] [address] [address] Ron Sims MANUAL DIFF REQ NO Normal [facility] Comment on above: Performed By: #### H H #### [facility] [address] [address] [address] Ron Sims MCH (RBC) [Entitic mass] 27.7 pg Normal 26.7-34.0 [facility] Comment on above: Performed By: #### H H #### [facility] [address] [place] [address] Dr. Ron Sims MCHC (RBC) [Mass/Vol] 32.9 g/dL Normal 29.9-35.2 [facility] Comment on above: Performed By: #### H H #### [facility] [address] [place] [address] Dr. Ron Sims MCV (RBC) [Entitic vol] 84.1 fL Normal 81.0-99.0 [facility] Comment on above: Performed By: #### H H #### [facility] [address] [place] [address] Dr. Ron Sims MONO # 0.5 103/ul Normal 0.3-0.8 [facility] Comment on above: Performed By: #### H H #### [facility] [address] [place] [address] Dr. Ron Sims Monocytes/100 WBC (Bld) 5.4 % Normal 1.7-12.0 [facility] Comment on above: Performed By: #### H H #### [facility] [address] [address] [address] Ron Sims NEUT # 6.5 103/ul Normal 1.4-6.5 [facility] Comment on above: Performed By: #### H H #### [facility] [address] [place] [address] Dr. Ron Sims Neutrophils/100 WBC (Bld) 75.4 % Critically high 43.0-75.0 [facility] Comment on above: Performed By: #### H H #### [facility] [address] [place] [address] Dr. Ron Smis Platelet mean volume (Bld) [Entitic vol] 9.0 fL Critically low 9.5-13.5 [facility] Comment on above: Performed By: #### H H #### [facility] [address] [place] [address] Dr. Ron Sims PLT 261 103/ul Normal 150-450 [facility] Comment on above: Performed By: #### H H #### [facility] [address] [place] [address] Dr. Ron Sims RBC 4.91 106/ul Normal 4.20-5.40 [facility] Comment on above: Performed By: #### H H #### [facility] [address] [place] [address] Dr. Ron Sims WBC 8.7 103/ul Normal 4.0-11.0 [facility] Comment on above: Performed By: #### H H #### [facility] [address] [place] [address] Dr. Ron Sims CRPon 09-26-2022 CRP 0.4 mg/dL Normal <=1.0 [facility] Comment on above: Performed By: #### P T, PTT #### [facility] [address] [place] [address] HEAD WO CONon [...] by: DEREK MIRELES Date: 2022-09-26 20:09 Normal [facility] CTA HEAD WO W CONon 09-26-19 [...] by: DEREK MIRELES Date: 2022-09-26 21:26 Normal [facility] PROF CHEM 8 (BAS METB)on Anion gap [Moles/Vol] 11.2 mmol/L Normal [facility] Comment on above: Performed By: #### P T, PTT #### [facility] [address] [address] [address] Ron Sims Calcium [Mass/Vol] 9.1 mg/dL Normal 8.5-10.1 [facility] Comment on above: Performed By: #### P T, PTT #### [facility] [address] [place], [place] [address] Dr. Ron Sims Chloride [Moles/Vol] 101 mmol/L Normal 98-107 [facility] Comment on above: Performed By: #### P T, PTT #### [facility] [address] [address] [address] Ron Sims CO2 [Moles/Vol] 28.0 mmol/L Normal 21.0-32.[address] [facility] Comment on above: Performed By: #### P T, PTT #### [facility] [address] [address] [address] Ron Sims Creatinine [Mass/Vol] 0.85 mg/dL Normal 0.55-1.02 [facility] Comment on above: Performed By: #### P T, PTT #### [facility] [address] [address] [address] Ron Sims EGFR-AF NEPALESE >60 Normal >=[address] [facility] Comment on above: Performed By: #### P T, PTT #### [facility] [address] [place] [address] Dr. Ron Sims EGFR-NON AF NEPALESE >60 Normal >=60 [facility] Comment on above: Performed By: #### P T, PTT #### [facility] [address] [place] [address] Dr. Ron Sims Glucose [Mass/Vol] 106 mg/dL Normal 74-106 [facility] Comment on above: Performed By: #### P T, PTT #### [facility] [address] [place] [address] Dr. Ron Sims Potassium [Moles/Vol] 4.2 mmol/L Normal 3.5-5.1 [facility] Comment on above: Performed By: #### P T, PTT #### [facility] [address] [place] [address] Dr. Ron Sims Sodium [Moles/Vol] 136 mmol/L Normal 136-145 [facility] Comment on above: Performed By: #### P T, PTT #### [facility] [address] [address] [address] Ron Sims Urea nitrogen [Mass/Vol] 15.0 mg/dL Normal 7.0-18.0 [facility] Comment on above: Performed By: #### P T, PTT #### [facility] [address] [address] [address] Ron Sims Urea nitrogen/Creatinine [Mass ratio] 17.6 mg/mg Normal [facility] Comment on above: Performed By: #### P T, PTT #### [facility] [address] [address] [address] Ron Sims SED RATE WESTERGRENon 2022 SED RATE 58 mm/hr Critically high <=20 [facility] Comment on above: Performed By: #### S EDR #### [facility] [address] [address] [address] Ron Sims PREG HCG QUALon 09-05-2022 , QUAL Negative Normal NEGATIVE [facility] Comment on above: Performed By: #### P REG #### [facility] [address] [place] [address] Dr. Ron Sims ABO and Rh group post transf usion reaction Nom (Bld)Ordered By: John Carlson on 04-11-2022 Microscopic observation Gram stain Nom (Unsp spec) [facility] HCG ( test) IA.rapi d Ql (U)Ordered By: Katya Vasques on 04-10-2022 HCG ( test) Ql (U) Negative [facility] COVID-19 Positive/NegativeOr dered By: John Carlson on 04-06-2022 SARS-CoV-2 (COVID-19) N gene EVARISTO+probe Ql (Resp) Negative Negative [facility] Comment on above: Testing for SARS-CoV -2 by RT-PCR This test was developed and its performance characteristics determined by [employer] ([employer]) and validated at the [facility]. This test has not been FDA cleared [...] on 03-30-2022 Albumin [Mass/Vol] 3.1 g/dL 3.2-5.5 [facility] Basophils Auto (Bld) [#/Vol] Ordered By: Dominique Garrison on 03-30-2022 Basophils (Bld) [#/Vol] 0.1 10*3/uL 0.0-0.2 [facility] Basophils/100 WBC Auto (Bld) Ordered By: Dominique Garrison on 03-30-2022 Basophils/100 WBC (Bld) 0.6 % . [facility] Blood hemoglobin measurement (mass/volume)Ordered By: Dominique Garrison on 03-30-2022 Hemoglobin (Bld) [Mass/Vol] 13.3 g/dL 11.8-15.4 [facility] Blood leukocytes automated c ount (number/volume)Ordered By: Dominique Garrison on 03-30-2022 WBC (Bld) [#/Vol] 10.7 10*3/uL 4.5-11.0 [facility] Creatinine and Glomerular fi ltration rate.predicted panel (S/P/Bld)Ordered By: Dominique Garrison on 03-30-2022 Creatinine [Mass/Vol] 0.74 mg/dL 0.44-1.03 [facility] Eosinophils Auto (Bld) [#/Vo l]Ordered By: Dominique Garrison on 03-30-2022 Eosinophils (Bld) [#/Vol] 0.2 10*3/uL 0.0-0.45 [facility] Eosinophils/100 WBC Auto (Bl d)Ordered By: Dominique Garrison on 03-30-2022 Eosinophils/100 WBC (Bld) 1.5 % . [facility] Erythrocyte distribution wid th Auto (RBC) [Ratio]Ordered By: Dominique Garrison on 03-30-2022 Erythrocyte distribution width (RBC) [Ratio] 14.2 % 11.9-15.3 [facility] Estimated glomerular filtrat ion rate (GFR) non- AmericanOrdered By: Dominique Garrison on 03-30-2022 GFR/1.73 sq M.predicted among non-blacks MDRD (S/P/Bld) [Vol rate/Area] > 60 mL/Min [facility] Globulin Calc (S) [Mass/Vol] Ordered By: Dominique Garrison on 03-30-2022 Globulin (S) [Mass/Vol] 4.1 g/dL [facility] Hematocrit Auto (Bld) [Volum e fraction]Ordered By: Dominique Garrison on 03-30-2022 Hematocrit (Bld) [Volume fraction] 39.6 % 34.0-46.4 [facility] Hepatitis C virus RNA [Units /volume] (viral load) in Serum or Plasma by EVARISTO with probOrdered By: Dominique Garrison on 03-30-2022 HCV RNA EVARISTO+probe Qn N/A [facility] Hepatitis C virus RNA [log u nits/volume] (viral load) in Serum or Plasma by EVARISTO withOrdered By: Dominique Garrison on 03-30-2022 HCV RNA EVARISTO+probe [Log units/Vol] N/A [facility] Laboratory - Hematology and Cell countsOrdered By: Dominique Garrison on 03-30-2022 Nucleated RBC/100 WBC (Bld) [Ratio] 0.1 % 0-0.5 [facility] Lymphocytes Auto (Bld) [#/Vo l]Ordered By: Dominique Garrison on 03-30-2022 Lymphocytes (Bld) [#/Vol] 1.7 10*3/uL 1.00-4.8 [facility] Lymphocytes/100 WBC Auto (Bl d)Ordered By: Dominique Garrison on 03-30-2022 Lymphocytes/100 WBC (Bld) 16.0 % . [facility] MCH Auto (RBC) [Entitic mass ]Ordered By: Dominique Garrison on 03-30-2022 MCH (RBC) [Entitic mass] 26.8 pg 24.7-34.3 [facility] MCHC Auto (RBC) [Mass/Vol]Or dered By: Dominique Garrison on 03-30-2022 MCHC (RBC) [Mass/Vol] 33.7 g/dL 32.0-35.0 [facility] MCV Auto (RBC) [Entitic vol] Ordered By: Dominique Garrison on 03-30-2022 MCV (RBC) [Entitic vol] 79.6 fL 80-100 [facility] Monocytes Auto (Bld) [#/Vol] Ordered By: Dominique Garrison on 03-30-2022 Monocytes (Bld) [#/Vol] 0.7 10*3/uL 0.0-0.8 [facility] Monocytes/100 WBC Auto (Bld) Ordered By: Dominique Bladimir on 03-30-2022 Monocytes/100 WBC (Bld) 6.4 % . [facility] Neutrophils Auto (Bld) [#/Vo l]Ordered By: Dominique Garrison on 03-30-2022 Neutrophils (Bld) [#/Vol] 8.0 10*3/uL 1.8-7.7 [facility] Neutrophils/100 WBC Auto (Bl d)Ordered By: Dominique Garrison on 03-30-2022 Neutrophils/100 WBC (Bld) 75.5 % . [facility] No Panel InformationOrdered By: Dominique Garrison on 03-30-2022 Estimated GFR () > 60 mL/Min [facility] Comment on above: GFR estimated refere nce range: According to KDOQI guidelines, <60 ml/min/1.73m2 is sufficient to diagnose a patient with chronic kidney disease. Hepatitis B Core Total Antibody Negative Negative [facility] Comment on above: Performed at: [address] [id number] Marketing Executive: Tarun Almanzar PhD, Phone: [phone] Hepatitis C Interpretation See comment . [facility] Comment on above: Negative Not infected with HCV, unless recent infection is suspected or other evidence exists to indicate HCV infection. Hepatitis C RNA Quantitative N/A [facility] Creatinine Clearance (Chem N/A [facility] TB Test (T-Spot) . [facility] Comment on above: See report. Scanned copy available in EMR. Platelet mean volume Auto (B ld) [Entitic vol]Ordered By: Dominique Garrison on 03-30-2022 Platelet mean volume (Bld) [Entitic vol] 7.3 fL 6.3-10.7 [facility] Platelets Auto (Bld) [#/Vol] Ordered By: Dominique Garrison on 03-30-2022 Platelets (Bld) [#/Vol] 376 10*3/uL 150-450 [facility] Protein [Mass/volume] in Ser um or PlasmaOrdered By: Dominique aGrrison on 03-30-2022 Protein [Mass/Vol] 7.2 g/dL 6.1-7.9 [facility] RBC Auto (Bld) [#/Vol]Ordere d By: Dominique Garrison on 03-30-2022 RBC (Bld) [#/Vol] 4.97 10*6/uL 3.60-5.00 [facility] Serum hepatitis B virus surf mary antibody detectionOrdered By: Dominique Garrison on 03-30-2022 HBV surface Ab Ql (S) Reactive . [facility] Comment on above: Non Reactive: Incons istent with immunity, less than 10 mIU/mL Reactive: Consistent with immunity, greater than 9.9 mIU/mL Serum or plasma alanine block otransferase measurement without P-5'-P (enzymatic activiOrdered By: Dominique Garrison on 03-30-2022 ALT No additional P-5'-P [Catalytic activity/Vol] 24 U/L 10-60 [facility] Serum or plasma albumin/glob ulin mass ratioOrdered By: Dominique Garrison on 03-30-2022 Albumin/Globulin [Mass ratio] 0.8 {ratio} [facility] Serum or plasma alkaline james sphatase measurement (enzymatic activity/volume)Ordered By: Dominique Garrison on 03-30-2022 ALP [Catalytic activity/Vol] 66 U/L 32-92 [facility] Serum or plasma aspartate am inotransferase measurement (enzymatic activity/volume)Ordered By: Dominique Garrison on 03-30-2022 AST [Catalytic activity/Vol] 20 U/L 10-42 [facility] Serum or plasma calcium seema urement (mass/volume)Ordered By: Dominique Garrison on 03-30-2022 Calcium [Mass/Vol] 8.5 mg/dL 8.2-10.2 [facility] Serum or plasma chloride laura surement (moles/volume)Ordered By: Dominique Garrison on 03-30-2022 Chloride [Moles/Vol] 105 mmol/L 95-114 [facility] Serum or plasma glucose seema urement (mass/volume)Ordered By: Dominique Garrison on 03-30-2022 Glucose [Mass/Vol] 97 mg/dL 70-100 [facility] Comment on above: ADA recommended refe rence [...] IA [Rel units/Vol] 0.2 s/co ratio 0.0-0.9 [facility] Serum or plasma potassium me asurement (moles/volume)Ordered By: Dominique Garrison on 03-30-2022 Potassium [Moles/Vol] 3.8 mmol/L 3.5-5.1 [facility] Serum or plasma sodium measu rement (moles/volume)Ordered By: Dominique Garrison on 03-30-2022 Sodium [Moles/Vol] 136 mmol/L 136-146 [facility] Serum or plasma total biliru bin measurement (mass/volume)Ordered By: Dominique Garrison on 03-30-2022 Bilirubin [Mass/Vol] 0.5 mg/dL 0.3-1.2 [facility] Serum or plasma total carbon dioxide measurement (moles/volume)Ordered By: Dominique Garrison on 03-30-2022 CO2 [Moles/Vol] 23.0 mmol/L 22.0-30.0 [facility] Serum or plasma urea nitroge n measurement (mass/volume)Ordered By: Dominique Garrison on 03-30-2022 Urea nitrogen [Mass/Vol] 9 mg/dL 9-23 [facility] Bacteria identified Anaer cx Nom (Unsp spec)Ordered By: John Carlson on 03-29-2022 Anaerobic Culture Prevotella bivia F [facility] Bacteria identified Aer cx N om (Unsp spec)Ordered By: John Carlson on 03-15-2022 Aerobic Culture Strep. agalactiae Gr p B [facility] ABO and Rh group post transf usion reaction Nom (Bld)Ordered By: John Carlson on 03-14-2022 Microscopic observation Gram stain Nom (Unsp spec) [facility] Creatinine and Glomerular fi ltration rate.predicted panel (S/P/Bld)Ordered By: KATYA SIMENTAL on 03-13-2022 Creatinine [Mass/Vol] 0.77 mg/dL 0.44-1.03 [facility] Estimated glomerular filtrat ion rate (GFR) non- AmericanOrdered By: KATYA SIMENTAL on 03-13-2022 GFR/1.73 sq M.predicted among non-blacks MDRD (S/P/Bld) [Vol rate/Area] > 60 mL/Min [facility] HCG ( test) IA.rapi d Ql (U)Ordered By: KATYA SIMENTAL on 03-13-2022 HCG ( test) Ql (U) Negative [facility] No Panel InformationOrdered By: KATYA SIMENTAL on 03-13-2022 Estimated GFR () > 60 mL/Min [facility] Comment on above: GFR estimated refere nce range: According to KDOQI guidelines, <60 ml/min/1.73m2 is sufficient to diagnose a patient with chronic kidney disease. Pharmacy Creatinine Clearance (Chem 159.38 [facility] Serum or plasma calcium seema urement (mass/volume)Ordered By: KATYA SIMENTAL on 03-13-2022 Calcium [Mass/Vol] 8.9 mg/dL 8.2-10.2 [facility] Serum or plasma chloride laura surement (moles/volume)Ordered By: KATYA SIMENTAL on 03-13-2022 Chloride [Moles/Vol] 98 mmol/L 95-114 [facility] Serum or plasma glucose seema urement (mass/volume)Ordered By: KATYA SIMENTAL on 03-13-2022 Glucose [Mass/Vol] 95 mg/dL 70-100 [facility] Comment on above: ADA recommended refe rence range Random Glucose Reference Range is dependent on time and content of last meal. Glucose of more than 200 mg/dL in a nonstressed, ambulatory subject supports the diagnosis of Diabetes Mellitus. Serum or plasma potassium me asurement (moles/volume)Ordered By: KATYA SIMENTAL on 03-13-2022 Potassium [Moles/Vol] 3.8 mmol/L 3.5-5.1 [facility] Serum or plasma sodium measu rement (moles/volume)Ordered By: KATYA SIMENTAL on 03-13-2022 Sodium [Moles/Vol] 133 mmol/L 136-146 [facility] Serum or plasma total carbon dioxide measurement (moles/volume)Ordered By: KATYA SIMENTAL on 03-13-2022 CO2 [Moles/Vol] 24.4 mmol/L 22.0-30.0 [facility] Serum or plasma urea nitroge n measurement (mass/volume)Ordered By: KATYA SIMENTAL on 03-13-2022 Urea nitrogen [Mass/Vol] 7 mg/dL 9-23 [facility] COVID-19 Positive/NegativeOr dered By: John Carlson on 03-09-2022 SARS-CoV-2 (COVID-19) N gene EVARISTO+probe Ql (Resp) Negative Negative [facility] Comment on above: Testing for SARS-CoV -2 by RT-PCR This test was developed and its performance characteristics determined by [employer] ([place] and validated at the [facility]. This test has not been FDA cleared [...] on 02-28-2022 Anaerobic Culture Prevotella bivia F [facility] Bacteria identified Aer cx N om (Unsp spec)Ordered By: John Carlson on 02-15-2022 Aerobic Culture Escherichia coli Fir [facility] Aerobic Culture Strep. agalactiae Gr p B [facility] ABO and Rh group post transf usion reaction Nom (Bld)Ordered By: John Carlson on 02-14-2022 Microscopic observation Gram stain Nom (Unsp spec) [facility] HCG ( test) IA.rapi d Ql (U)Ordered By: Dillon Miranda on 02-13-2022 HCG ( test) Ql (U) Negative [facility] COVID-19 Positive/NegativeOr dered By: John Carlson on 02-09-2022 SARS-CoV-2 (COVID-19) N gene EVARISTO+probe Ql (Resp) Negative Negative [facility] Comment on above: Testing for SARS-CoV -2 by RT-PCR This test was developed and its performance characteristics determined by [employer] ([place] and validated at the [facility]. This test has not been FDA cleared [...] revoked sooner. Physician Referralon 022 Physician Referral [id number]:127 Normal [facility] Physician Referralon 021 Physician Referral [id number]:127 Normal [facility] Vital Signs Date Time Vital Sign Value Performing Clinician Facility 09-01-2024 08:39-0500 Body height 165.1 cm Harley Thacker 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NURSE Work Phone: [facility] 09-01-2024 08:39-0500 Body mass index (BMI) [Ratio] 62.67 kg/m2 Harley Thacker 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NURSE Work Phone: [facility] 09-01-2024 08:39-0500 Body temperature 98.2 [degF] Harley Thacker 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NURSE Work Phone: [facility] 09-01-2024 08:39-0500 Body weight 170.82 kg Harley Thacker 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NURSE Work Phone: [facility] 09-01-2024 08:39-0500 Diastolic blood pressure 74 mm[Hg] Harley Thacker 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NURSE Work Phone: [facility] 09-01-2024 08:39-0500 Heart rate 91 /min Harley Thacker 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NURSE Work Phone: [facility] 09-01-2024 08:39-0500 SaO2% (BldA) [Mass fraction] 97 % Harley Thacker 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NURSE Work Phone: [facility] 09-01-2024 08:39-0500 Systolic blood pressure 130 mm[Hg] Harley Thacker 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NURSE Work Phone: [facility] 08-08-2024 10:29-0500 Body mass index (BMI) [Ratio] 63.97 kg/m2 Harley Thacker 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NURSE Work Phone: [facility] 08-08-2024 10:29-0500 Body temperature 97.9 [degF] Harley Thacker 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NURSE Work Phone: [facility] 08-08-2024 10:29-0500 Body weight 174.36 kg Harley Thacker 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NURSE Work Phone: [facility] 08-08-2024 10:29-0500 Diastolic blood pressure 70 mm[Hg] Harley Thacker 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NURSE Work Phone: [facility] 08-08-2024 10:29-0500 Heart rate 86 /min Harley Thacker 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NURSE Work Phone: [facility] 08-08-2024 10:29-0500 SaO2% (BldA) [Mass fraction] 99 % Harley Thacker 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NURSE Work Phone: [facility] 08-08-2024 10:29-0500 Systolic blood pressure 128 mm[Hg] Harley Thacker 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NURSE Work Phone: [facility] 06-27-2024 10:25-0400 Body mass index (BMI) [Ratio] 62.07 kg/m2 Harley Thacker 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NURSE Work Phone: [facility] 06-27-2024 10:25-0400 Body temperature 97.9 [degF] Harley Thacker 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NURSE Work Phone: [facility] 06-27-2024 10:25-0400 Body weight 169.19 kg Harley Thacker 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NURSE Work Phone: [facility] 06-27-2024 10:25-0400 Diastolic blood pressure 86 mm[Hg] Harley Thacker 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NURSE Work Phone: [facility] 06-27-2024 10:25-0400 Heart rate 86 /min Harley Thacker 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NURSE Work Phone: [facility] 06-27-2024 10:25-0400 SaO2% (BldA) [Mass fraction] 98 % Harley Thacker 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NURSE Work Phone: [facility] 06-27-2024 10:25-0400 Systolic blood pressure 128 mm[Hg] Harley Thacker 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NURSE Work Phone: [facility] 04-18-2024 11:17-0400 Body mass index (BMI) [Ratio] 60.83 kg/m2 Sharfi Joseph MD Work Phone: [facility] 04-18-2024 11:17-0400 Body temperature 97 [degF] Sharif Joseph MD Work Phone: [facility] 04-18-2024 11:17-0400 Body weight 165.8 kg Sharif Joseph MD Work Phone: [facility] 04-18-2024 11:17-0400 Diastolic blood pressure 76 mm[Hg] Sharif Joseph MD Work Phone: [facility] 04-18-2024 11:17-0400 Heart rate 75 /min Sharif Joseph MD Work Phone: [facility] 04-18-2024 11:17-0400 Respiratory rate 18 /min Sharif Joseph MD Work Phone: [facility] 04-18-2024 11:17-0400 SaO2% (BldA) [Mass fraction] 98 % Sharif Joseph MD Work Phone: [facility] 04-18-2024 11:17-0400 Systolic blood pressure 155 mm[Hg] Sharif Joseph MD Work Phone: [facility] 12-20-2023 10:16-0400 Body temperature 97.7 [degF] Sharif Joseph MD Work Phone: [facility] 12-20-2023 10:16-0400 Body weight 171.1 kg Sharif Joseph MD Work Phone: [facility] 12-20-2023 10:16-0400 Diastolic blood pressure 90 mm[Hg] Sharif Joseph MD Work Phone: [facility] 12-20-2023 10:16-0400 Heart rate 98 /min Sharif Joseph MD Work Phone: [facility] 12-20-2023 10:16-0400 Respiratory rate 16 /min Sharif Joseph MD Work Phone: [facility] 12-20-2023 10:16-0400 SaO2% (BldA) [Mass fraction] 97 % Sharif Joseph MD Work Phone: [facility] 12-20-2023 10:16-0400 Systolic blood pressure 154 mm[Hg] Sharif Joseph MD Work Phone: [facility] 12-07-2023 11:05-0400 Body height 165.1 cm Harley Thacker 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NURSE Work Phone: [facility] 12-07-2023 11:05-0400 Body mass index (BMI) [Ratio] 64.23 kg/m2 Harley Thacker 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NURSE Work Phone: [facility] 12-07-2023 11:05-0400 Body temperature 98.01 [degF] Harley Thacker 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NURSE Work Phone: [facility] 12-07-2023 11:05-0400 Body weight 175.09 kg Harley Thacker 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NURSE Work Phone: [facility] 12-07-2023 11:05-0400 Diastolic blood pressure 76 mm[Hg] Harley Thacker 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NURSE Work Phone: [facility] 12-07-2023 11:05-0400 Heart rate 97 /min Harley Thacker 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NURSE Work Phone: [facility] 12-07-2023 11:05-0400 SaO2% (BldA) [Mass fraction] 94 % Harley Thacker 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NURSE Work Phone: [facility] 12-07-2023 11:05-0400 Systolic blood pressure 136 mm[Hg] Harley Thacker 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NURSE Work Phone: [facility] 11-29-2023 10:42-0400 Body height 165.1 cm Sharif Joseph MD Work Phone: [facility] 11-29-2023 10:42-0400 Body temperature 97.59 [degF] Sharif Joseph MD Work Phone: [facility] 11-29-2023 10:42-0400 Body weight 172.8 kg Sharif Joseph MD Work Phone: [facility] 11-29-2023 10:42-0400 Diastolic blood pressure 100 mm[Hg] Sharif Joseph MD Work Phone: [facility] 11-29-2023 10:42-0400 Heart rate 98 /min Sharif Joseph MD Work Phone: [facility] 11-29-2023 10:42-0400 Respiratory rate 16 /min Sharif Joseph MD Work Phone: [facility] 11-29-2023 10:42-0400 SaO2% (BldA) [Mass fraction] 98 % Sharif Joseph MD Work Phone: [facility] 11-29-2023 10:42-0400 Systolic blood pressure 159 mm[Hg] Sharif Joseph MD Work Phone: [facility] 11-28-2023 09:58-0400 Body height 165.1 cm Pam Mittal MD Work Phone: [facility] 11-28-2023 09:58-0400 Body mass index (BMI) [Ratio] 63.73 kg/m2 Pam Mittal MD Work Phone: [facility] 11-28-2023 09:58-0400 Body weight 173.73 kg Pam Mittal MD Work Phone: [facility] 11-28-2023 09:58-0400 Diastolic blood pressure 96 mm[Hg] Pam Mittal MD Work Phone: [facility] 11-28-2023 09:58-0400 Heart rate 95 /min Pam Mittal MD Work Phone: [facility] 11-28-2023 09:58-0400 SaO2% (BldA) [Mass fraction] 98 % Pam Mittal MD Work Phone: [facility] 11-28-2023 09:58-0400 Systolic blood pressure 140 mm[Hg] Pam Mittal MD Work Phone: [facility] 11-14-2023 15:25-0400 Body height 165.1 cm Harley Thacker 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NURSE Work Phone: [facility] 11-14-2023 15:25-0400 Body mass index (BMI) [Ratio] 63.5 kg/m2 Harley Rojas 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NURSE Work Phone: [facility] 11-14-2023 15:25-0400 Body temperature 98.6 [degF] Harley Thacker 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NURSE Work Phone: [facility] 11-14-2023 15:25-0400 Body weight 173.09 kg Harley Thacker 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NURSE Work Phone: [facility] 11-14-2023 15:25-0400 Diastolic blood pressure 80 mm[Hg] Harley Thacker 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NURSE Work Phone: [facility] 11-14-2023 15:25-0400 Heart rate 98 /min Harley Thacker 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NURSE Work Phone: [facility] 11-14-2023 15:25-0400 SaO2% (BldA) [Mass fraction] 97 % Harley Thacker 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NURSE Work Phone: [facility] 11-14-2023 15:25-0400 Systolic blood pressure 132 mm[Hg] Harley Thacker 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NURSE Work Phone: [facility] 11-07-2023 10:01-0500 Body height 165.1 cm Corine Catherine 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NURSE Work Phone: [facility] 11-07-2023 10:01-0500 Body mass index (BMI) [Ratio] 63.77 kg/m2 Corine Catherine 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NURSE Work Phone: [facility] 11-07-2023 10:01-0500 Body weight 173.82 kg Corine Catherine 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NURSE Work Phone: [facility] 11-07-2023 10:01-0500 Diastolic blood pressure 89 mm[Hg] Corine Catherine 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NURSE Work Phone: [facility] 11-07-2023 10:01-0500 Heart rate 95 /min Corine Catherine 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NURSE Work Phone: [facility] 11-07-2023 10:01-0500 Systolic blood pressure 175 mm[Hg] Corine Catherine 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NURSE Work Phone: [facility] 10-19-2023 10:15-0500 Body mass index (BMI) [Ratio] 63.5 kg/m2 Yashira Mi 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NURSE Work Phone: [facility] 10-19-2023 10:15-0500 Body weight 173.09 kg Yashira Mi 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NURSE Work Phone: [facility] 10-19-2023 10:15-0500 Diastolic blood pressure 96 mm[Hg] Yashira Mi 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NURSE Work Phone: [facility] 10-19-2023 10:15-0500 Heart rate 82 /min Yashira Mi 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NURSE Work Phone: [facility] 10-19-2023 10:15-0500 Systolic blood pressure 142 mm[Hg] Yashira Mi 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NURSE Work Phone: [facility] 10-08-2023 09:12-0500 Body height 165.1 cm Harley Thacker 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NURSE Work Phone: [facility] 10-08-2023 09:12-0500 Body mass index (BMI) [Ratio] 63.24 kg/m2 Harley Thacker 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NURSE Work Phone: [facility] 10-08-2023 09:12-0500 Body temperature 98.01 [degF] Harley Thacker 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NURSE Work Phone: [facility] 10-08-2023 09:12-0500 Body weight 172.37 kg Harley Thacker 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NURSE Work Phone: [facility] 10-08-2023 09:12-0500 Diastolic blood pressure 90 mm[Hg] Harley Thacker 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NURSE Work Phone: [facility] 10-08-2023 09:12-0500 Heart rate 86 /min Harley Thacker 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NURSE Work Phone: [facility] 10-08-2023 09:12-0500 SaO2% (BldA) [Mass fraction] 97 % Harley Thacker 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NURSE Work Phone: [facility] 10-08-2023 09:12-0500 Systolic blood pressure 132 mm[Hg] Harley Thacker 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NURSE Work Phone: [facility] 05-05-2022 09:25-0400 Body temperature 97.9 [degF] MD John Carlson Work Phone: [facility] 05-05-2022 09:25-0400 Diastolic blood pressure 93 mm[Hg] MD John Carlson Work Phone: [facility] 05-05-2022 09:25-0400 Heart rate 78 /min MD John Carlson Work Phone: [facility] 05-05-2022 09:25-0400 Respiratory rate 18 /min MD John Carlson Work Phone: [facility] 05-05-2022 09:25-0400 SaO2% (BldA) [Mass fraction] 99 % MD John Carlson Work Phone: [facility] 05-05-2022 09:25-0400 Systolic blood pressure 156 mm[Hg] MD John Carlson Work Phone: [facility] 05-05-2022 09:24-0400 Body height 165.1 cm MD John Carlson Work Phone: [facility] 05-05-2022 09:24-0400 Body weight 155.9 kg MD John Carlson Work Phone: [facility] 04-21-2022 09:29-0400 Body temperature 98.2 [degF] MD John Carlson Work Phone: [facility] 04-21-2022 09:29-0400 Diastolic blood pressure 59 mm[Hg] MD John Carlson Work Phone: [facility] 04-21-2022 09:29-0400 Heart rate 74 /min MD John Carlson Work Phone: [facility] 04-21-2022 09:29-0400 Systolic blood pressure 141 mm[Hg] MD John Carlson Work Phone: [facility] 04-21-2022 08:29-0400 Body height 165.1 cm MD John Carlson Work Phone: [facility] 04-21-2022 08:29-0400 Body weight 155 kg MD John Carlson Work Phone: [facility] 04-10-2022 14:46-0400 Body height 165.1 cm MD John Carlson Work Phone: [facility] 04-10-2022 14:46-0400 Body mass index (BMI) [Ratio] 55.4 kg/m2 MD John Carlson Work Phone: [facility] 04-10-2022 14:46-0400 Body weight 151.04 kg MD John Carlson Work Phone: [facility] 04-10-2022 14:25-0400 Diastolic blood pressure 69 mm[Hg] MD John Carlson Work Phone: [facility] 04-10-2022 14:25-0400 Heart rate 80 /min MD John Carlson Work Phone: [facility] 04-10-2022 14:25-0400 Respiratory rate 16 /min MD John Carlson Work Phone: [facility] 04-10-2022 14:25-0400 SaO2% (BldA) [Mass fraction] 100 % MD John Carlson Work Phone: [facility] 04-10-2022 14:25-0400 Systolic blood pressure 119 mm[Hg] MD John Carlson Work Phone: [facility] 04-10-2022 14:10-0400 Inhaled oxygen flow rate 4 L/min MD John Carlson Work Phone: [facility] 04-10-2022 11:36-0400 Body temperature 97.9 [degF] MD John Carlson Work Phone: [facility] 03-13-2022 19:00-0400 Diastolic blood pressure 92 mm[Hg] MD John Carlson Work Phone: [facility] 03-13-2022 19:00-0400 Heart rate 84 /min MD John Carlson Work Phone: [facility] 03-13-2022 19:00-0400 Respiratory rate 16 /min MD John Carlson Work Phone: [facility] 03-13-2022 19:00-0400 SaO2% (BldA) [Mass fraction] 98 % MD John Carlson Work Phone: [facility] 03-13-2022 19:00-0400 Systolic blood pressure 148 mm[Hg] MD John Carlson Work Phone: [facility] 03-13-2022 18:03-0400 Body temperature 98 [degF] MD John Carlson Work Phone: [facility] 03-13-2022 17:33-0400 Inhaled oxygen flow rate 6 L/min MD John Carlson Work Phone: [facility] 03-13-2022 17:13-0400 Body height 165.1 cm MD John Carlson Work Phone: [facility] 03-13-2022 17:13-0400 Body mass index (BMI) [Ratio] 56.9 kg/m2 MD John Carlson Work Phone: [facility] 03-13-2022 17:13-0400 Body weight 155.12 kg MD John Carlson Work Phone: [facility] 02-13-2022 17:05-0400 Diastolic blood pressure 81 mm[Hg] MD John Carlson Work Phone: [facility] 02-13-2022 17:05-0400 Heart rate 76 /min MD John Carlson Work Phone: [facility] 02-13-2022 17:05-0400 Respiratory rate 16 /min MD John Carlson Work Phone: [facility] 02-13-2022 17:05-0400 SaO2% (BldA) [Mass fraction] 94 % MD John Carlson Work Phone: [facility] 02-13-2022 17:05-0400 Systolic blood pressure 131 mm[Hg] MD John Carlson Work Phone: [facility] 02-13-2022 15:44-0400 Body height 165.1 cm MD John Carlson Work Phone: [facility] 02-13-2022 15:44-0400 Body mass index (BMI) [Ratio] 56.5 kg/m2 MD John Carlson Work Phone: [facility] 02-13-2022 15:44-0400 Body weight 154 kg MD John Carlson Work Phone: [facility] 02-13-2022 12:20-0400 Body temperature 97.9 [degF] MD John Carlson Work Phone: [facility] 08-02-2020 13:24-0500 BMI (Body Mass Index) 58.74 kg/m2 [facility] 08-02-2020 13:24-0500 Body Temperature 98.4 [degF] [facility] 08-02-2020 13:24-0500 Body weight 160.12 kg [facility] 08-02-2020 13:24-0500 BP Diastolic 91 mm[Hg] [facility] 08-02-2020 13:24-0500 BP Systolic 150 mm[Hg] [facility] 08-02-2020 13:24-0500 Height 165.1 cm [facility] 08-02-2020 13:24-0500 Pulse (Heart Rate) 91 /min [facility] 08-02-2020 13:24-0500 Pulse Oximetry 97 % [facility] Encounters Encounter Date Encounter Type Care Provider Facility Start: 09-17-2024 End: 09-17-2024 Refcatia HARLEY Work Phone: [facility] Start: 09-17-2024 End: 09-17-2024 ambulatory [facility] Start: 09-11-2024 End: 09-11-2024 Office outpatient visit 25 minutes Yashira Mi 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NURSE Work Phone: [facility] Comment on above: Bipolar depression ( [facility]) (Primary Dx); Generalized anxiety disorder; Post traumatic stress disorder (PTSD); Attention deficit hyperactivity disorder, combined type Start: 09-11-2024 End: 09-11-2024 ambulatory [facility] Start: 09-08-2024 End: 09-08-2024 Telephone encounter Ludmila Kebede CNA [facility] Comment on above: Results Start: 09-04-2024 End: 09-04-2024 [facility] Start: 09-01-2024 End: 09-01-2024 Office outpatient visit 15 minutes Harley Thacker 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NURSE Work Phone: [facility] Comment on above: Neck pain (Primary D x); Muscle spasm; History of DVT (deep vein thrombosis); MTHFR (methylene THF reductase) deficiency and homocystinuria ([facility]); History of pulmonary embolism; Diaphoresis; Numbness and tingling in both hands Start: 09-01-2024 End: 09-01-2024 [facility] Start: 08-25-2024 End: 08-25-2024 [facility] Start: 08-25-2024 End: 08-25-2024 Clinical Support Harley Thacker 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NURSE Work Phone: [facility] Comment on above: Primary hypertension (Primary Dx) Start: 08-20-2024 End: 08-20-2024 ambulatory [facility] Start: 08-08-2024 End: 08-08-2024 Office outpatient visit 15 minutes Harley Thacker 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NURSE Work Phone: [facility] Comment on above: Primary hypertension (Primary Dx); Leg edema, left Start: 08-08-2024 End: 08-08-2024 ambulatory [facility] Start: 07-29-2024 End: 07-29-2024 Refill Jermaine Gagnon MD Work Phone: [facility] Comment on above: Neuropathy Start: 07-20-2024 End: 07-20-2024 Refill Stephani Cole 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NURSE Work Phone: [facility] Comment on above: Gastroesophageal ref lux disease, unspecified whether esophagitis present Start: 07-15-2024 End: 07-15-2024 [facility] Start: 07-10-2024 End: 07-10-2024 ambulatory [facility] Start: 07-10-2024 End: 07-10-2024 Office outpatient visit 25 minutes [facility] 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NURSE Work Phone: [facility] Comment on above: Bipolar depression ( [facility]) (Primary Dx); Post traumatic stress disorder (PTSD); Generalized anxiety disorder; Attention deficit hyperactivity disorder, combined type Start: 07-02-2024 ambulatory [facility] Start: 07-01-2024 End: 07-01-2024 Orders Only Harley Thacker 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NURSE Work Phone: [facility] Comment on above: Type 2 diabetes nandini itus with other specified complication, unspecified whether intermediate teacher insulin use ([facility]) (Primary Dx) Start: 06-30-2024 End: 06-30-2024 Orders Only Harley Thacker 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NURSE Work Phone: [facility] Start: 06-29-2024 End: 07-01-2024 Refill Harley Thacker 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NURSE Work Phone: [facility] Start: 06-27-2024 End: 06-27-2024 ambulatory [facility] Start: 06-27-2024 End: 06-27-2024 Office outpatient visit 10 minutes [facility] 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NURSE Work Phone: [facility] Comment on above: Silvia's disease (Primary Dx); Dizziness; Hypothyroidism, unspecified type; 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 Start: 06-27-2024 End: 06-27-2024 ambulatory [facility] Start: 06-21-2024 End: 06-23-2024 Refill Yashira Kearney Mi 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NURSE Work Phone: [facility] Start: 06-13-2024 End: 06-13-2024 Refill Sharif Joseph MD Work Phone: Hematology/Oncology Comment on above: Refill Request Start: 06-13-2024 End: 06-13-2024 ambulatory [facility] Start: 06-11-2024 End: 06-11-2024 Refill [facility] 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NURSE Work Phone: [facility] Start: 06-07-2024 End: 06-09-2024 Refill Jermaine Gagonn MD Work Phone: [facility] Comment on above: Neuropathy Start: 06-05-2024 End: 06-05-2024 Office outpatient visit 25 minutes Yashira Caio Mi 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NURSE Work Phone: [facility] Comment on above: Bipolar depression ( CMS-HCC) (Primary Dx); Post traumatic stress disorder (PTSD); Generalized anxiety disorder; Attention deficit hyperactivity disorder, combined type Start: 06-05-2024 End: 06-05-2024 ambulatory [facility] Start: 05-28-2024 End: 05-28-2024 ambulatory [facility] Start: 05-26-2024 End: 05-26-2024 ambulatory Sharif Joseph MD Work Phone: Hematology/Oncology Comment on above: My 9 year old mirta rojas has factor 8 Start: 05-16-2024 End: 05-16-2024 ambulatory [facility] Start: 05-15-2024 End: 05-15-2024 ambulatory [facility] Start: 05-14-2024 End: 05-14-2024 ambulatory [facility] Start: 05-07-2024 End: 05-07-2024 ambulatory [facility] Start: 05-01-2024 End: 05-01-2024 ambulatory [facility] Start: 04-25-2024 End: 04-25-2024 Clinisync Result Encounter Dannie Teena DO Work Phone: [facility] Unsolicited Start: 04-25-2024 End: 04-25-2024 Clinisync Result Encounter Dannie Teena DO Work Phone: [facility] Unsolicited Start: 04-22-2024 End: 04-22-2024 Telephone encounter Amarilys YANES Hematology/Oncology Start: 04-18-2024 End: 04-18-2024 Office outpatient visit 25 minutes Sharif Joseph MD Work Phone: Hematology/Oncology Comment on above: Primary hypercoagula ble state (HCC) (Primary Dx); MTHFR mutation; Factor V Leiden (HCC); Iron deficiency anemia, unspecified iron deficiency anemia type Start: 04-18-2024 End: 04-18-2024 ambulatory [facility] Facility:[facility] Start: 04-14-2024 Patient encounter procedure [facility] Provider [facility] Start: 04-14-2024 End: 04-14-2024 ambulatory Yancy Cancino MD Facility:[facility] [place] Start: 04-09-2024 End: 04-09-2024 ambulatory [facility] Start: 04-08-2024 Telephone encounter Bello Gan Hematology/Oncology Comment on above: letter of medical cl earance Start: 04-08-2024 End: 04-08-2024 Departed Referred DO Dannie Teena Work Phone: [facility] [place] [facility] Start: 04-08-2024 End: 04-08-2024 ambulatory DANNIE TEENA [facility] Work Phone: Start: 04-02-2024 Telephone encounter Bello Gan Hematology/Oncology Start: 04-01-2024 ambulatory Sharif khanna MD Work Phone: Hematology/Oncology Comment on above: Hidradenitis support efren Start: 03-27-2024 End: 03-27-2024 ambulatory [facility] Start: 03-26-2024 End: 03-26-2024 ambulatory [facility] Start: 03-24-2024 End: 03-24-2024 ambulatory Yancy [facility]ancino MD [facility] Start: 03-20-2024 ambulatory Sharif khanna MD Work Phone: Hematology/Oncology Comment on above: Victoza and arixtra Start: 03-17-2024 End: 03-17-2024 ambulatory DANNIE TEENA Not Available Start: 03-12-2024 End: 03-12-2024 ambulatory [facility] Start: 03-10-2024 End: 03-10-2024 ambulatory Yancy Cancino MD Facility:[facility] Start: 02-27-2024 End: 02-27-2024 ambulatory DANNIE TEENA Not Available Start: 02-13-2024 End: 02-13-2024 ambulatory [facility] Start: 01-23-2024 End: 01-23-2024 ambulatory [facility] Start: 01-10-2024 End: 01-10-2024 ambulatory [facility] Start: 12-25-2023 End: 12-25-2023 ambulatory [facility] Start: 12-20-2023 End: 12-20-2023 Office outpatient visit 25 minutes Sharfi Joseph MD Work Phone: Hematology/Oncology Comment on above: Primary hypercoagula ble state (HCC) (Primary Dx); Factor V Leiden (HCC); MTHFR mutation; Iron deficiency anemia, unspecified iron deficiency anemia type; Factor V deficiency (HCC) Start: 12-20-2023 End: 12-20-2023 ambulatory [facility] Facility:[facility] Start: 12-12-2023 End: 12-12-2023 [facility] Start: 12-12-2023 End: 12-12-2023 ambulatory [facility] Start: 12-11-2023 End: 12-11-2023 ambulatory [facility] Start: 12-11-2023 End: 12-11-2023 Evaluation and management of inpatient MAYRAMalik RAYA [facility] Start: 12-10-2023 End: 12-11-2023 [facility] Start: 12-07-2023 End: 12-07-2023 ambulatory [facility] Start: 12-07-2023 Encounter for genera l adult medical examination without abnormal findings [facility] Start: 12-07-2023 End: 12-07-2023 Patient encounter status [facility] 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NURSE Work Phone: [employer] Work Phone: Start: 12-07-2023 End: 12-07-2023 Periodic preventive med est patient 18-39 yrs Harley Thacker 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NURSE Work Phone: [facility] Comment on above: Wellness examination (Primary Dx); Silvia's disease; Controlled type 2 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 complication, without long-term current use of insulin ([facility]); Encounter for Papanicolaou smear for cervical cancer screening; Hidradenitis suppurativa Start: 12-07-2023 End: 12-07-2023 ambulatory [facility] Start: 12-07-2023 Encounter for genera l adult medical examination without abnormal findings [facility] Start: 12-07-2023 End: 12-07-2023 ambulatory [facility] Start: 12-06-2023 Orders Only [facility] 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NURSE Work Phone: [facility] Start: 12-05-2023 End: 12-05-2023 ambulatory [facility] Pat Phone Call Provider [facility] Ad[facility] Start: 12-05-2023 End: 12-05-2023 ambulatory [facility] Start: 12-03-2023 Telephone encounter Gwen Felton [facility] General [facility] Start: 11-29-2023 End: 11-29-2023 ambulatory [facility] Start: 11-29-2023 End: 11-29-2023 Office outpatient new 45 minutes Sharif Joseph MD Work Phone: Hematology/Oncology Comment on above: Factor V Leiden (HCC ) (Primary Dx); Gastrointestinal hemorrhage, unspecified gastrointestinal hemorrhage type; Iron deficiency anemia, unspecified iron deficiency anemia type; MTHFR mutation; Primary hypercoagulable state (HCC); History of pulmonary embolism Start: 11-28-2023 End: 11-28-2023 Office outpatient visit 15 minutes Pam Mittal MD Work Phone: [facility] Comment on above: Essential hypertensi on (Primary Dx) Start: 11-28-2023 End: 11-28-2023 ambulatory PAM MITTAL [facility] Start: 11-27-2023 Chart abstracting Sharif clarke MD Work Phone: Hematology/Oncology Start: 11-27-2023 Telephone encounter Claribel Myers [facility] Start: 11-27-2023 End: 11-27-2023 Office outpatient visit 15 minutes [facility] 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NURSE Work Phone: [facility] Comment on above: Bipolar depression ( CMS-HCC) (Primary Dx); Post traumatic stress disorder (PTSD); Generalized anxiety disorder; Attention deficit hyperactivity disorder, combined type Start: 11-27-2023 End: 11-27-2023 ambulatory [facility] Start: 11-27-2023 End: 11-27-2023 ambulatory [facility] Start: 11-15-2023 End: 11-15-2023 ambulatory [facility] Start: 11-14-2023 End: 11-14-2023 ambulatory [facility] Start: 11-14-2023 Encounter for other preprocedural examination [facility] Start: 11-14-2023 End: 11-14-2023 Office outpatient visit 15 minutes [facility] 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NURSE Work Phone: [facility] Comment on above: Preoperative clearan ce (Primary Dx); Abnormal echocardiogram; History of DVT (deep vein thrombosis); History of pulmonary embolism; Factor 5 Leiden mutation, heterozygous ([facility]); 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 ([facility]); Chest discomfort; Shortness of breath; Atrial mass; Gastroesophageal reflux disease, unspecified whether esophagitis present Start: 11-14-2023 End: 11-14-2023 Preoperative state [facility] 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NURSE Work Phone: [facility] [employer] Work Phone: Start: 11-14-2023 End: 11-14-2023 ambulatory [facility] Start: 11-12-2023 Telephone encounter Bruna Plasencia [facility] General Surgery Start: 11-09-2023 End: 11-09-2023 ambulatory KATYA DENISE [facility] Start: 11-09-2023 Encounter for other preprocedural examination [facility] Start: 11-09-2023 End: 11-09-2023 Patient encounter procedure [facility] Pre-Admission Testing [facility] Comment on above: Preop examination (P rimary Dx); MTHFR (methylene THF reductase) deficiency and homocystinuria ([facility]); BMI 60.0-69.9, adult ([facility]); Hypertension, unspecified type; Blood clotting disorder ([facility]) Start: 11-09-2023 End: 11-09-2023 Preprocedural examination done [facility] 1 [facility] Start: 11-07-2023 End: 11-07-2023 ambulatory [facility] Start: 11-07-2023 End: 11-07-2023 Office outpatient new 45 minutes [facility] 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 Phone: [facility] General [facility] Comment on above: Gastroesophageal ref lux disease, unspecified whether esophagitis present (Primary Dx); Nausea and vomiting, unspecified vomiting type; Diarrhea, unspecified type; Morbid obesity ([facility]) Start: 11-07-2023 End: 11-07-2023 ambulatory [facility] Start: 10-30-2023 End: 10-30-2023 ambulatory [facility] Start: 10-23-2023 Refill Susana Rizvi [facility] Start: 10-22-2023 Telephone encounter Lauryn Fry [facility] Start: 10-19-2023 End: 10-19-2023 ambulatory YASHIRA MI [facility] Start: 10-08-2023 End: 10-08-2023 Office outpatient new 45 minutes [facility] 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NURSE Work Phone: [facility] Comment on above: PE (pulmonary thromb oembolism) (CMS-HCC) (Primary Dx); History of pulmonary embolism; History of DVT (deep vein thrombosis); Factor 5 Leiden mutation, heterozygous ([facility]); 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 ([facility]); Bipolar 1 disorder ([facility]); Insulin resistance; History of prediabetes; History of insulin resistance; Gastroesophageal reflux disease, unspecified whether esophagitis present; Nausea and vomiting, unspecified vomiting type; Hidradenitis suppurativa; Migraine without aura and without status migrainosus, not intractable; Prediabetes Start: 10-08-2023 End: 10-08-2023 ambulatory [facility] Start: 06-25-2023 End: 06-25-2023 ambulatory Yancy Cancino MD Facility:[facility] Start: 05-28-2023 End: 05-28-2023 ambulatory Yancy Cancino MD Facility:[facility] Start: 02-01-2023 ambulatory NIKOLAS SHAMMO Facility:[facility] 1 Start: 12-05-2022 [facility] Start: 11-22-2022 End: 11-22-2022 [facility] Start: 11-02-2022 End: 11-03-[address] KACEY KAPOOR . Facility:[facility] Start: 10-24-2022 Encounter for genera l adult medical examination without abnormal findings [facility] Start: 10-23-2022 End: 10-24-2022 Encounter for general adult medical examination without abnormal [facility] Start: 10-23-2022 End: 10-24-2022 ambulatory NIKOLAS SHAMMO Facility:[facility] Start: 09-28-2022 End: 09-29-[address] KACEY KAPOOR . Facility:[facility] Start: 09-26-2022 End: 09-26-2022 ambulatory DELONTE BAUTISTA . Facility:[facility] Start: 09-05-2022 End: 09-05-2022 ambulatory [facility] Facility:[facility] Start: 06-05-2022 End: 06-06-2022 ambulatory [facility] Facility:[facility] Start: 06-01-2022 End: 06-02-[address] KACEY KAPOOR . Facility:[facility] Start: 05-05-2022 Registered Recurring MD John Carlson Work Phone: [facility] Start: 04-10-2022 End: 04-10-2022 Admission to same day surgery center MD John Carlson Work Phone: [facility] [place] Start: 04-06-2022 End: 04-06-2022 Patient encounter procedure MD John Carlson Work Phone: [facility] Start: 03-30-2022 End: 03-30-2022 Patient encounter procedure MD John Carlson Work Phone: [facility] [place] Start: 03-13-2022 End: 03-13-2022 Admission to same day surgery center MD John Carlson Work Phone: [facility] [place] Start: 03-09-2022 End: 03-09-2022 Patient encounter procedure MD John Carlson Work Phone: [facility] Start: 03-01-2022 End: 03-02-2022 ambulatory PAM FLANAGAN Facility:[facility] Start: 02-13-2022 End: 02-13-2022 Admission to same day surgery center MD John Carlson Work Phone: [facility] [place] Start: 02-09-2022 End: 02-09-2022 Patient encounter procedure MD John Carlson Work Phone: [facility] Start: 08-02-2020 End: 08-02-2020 Patient encounter procedure [facility] Start: 08-02-2020 End: 08-02-2020 Office outpatient new 60 minutes [facility] Work Phone: [facility] Rhe[facility] Comment on above: Lupus (HCC) (Primary Dx); Suppurative hidradenitis; Chronic fatigue; YULY (obstructive sleep apnea); Vitamin D insufficiency; Morbid obesity with BMI of 50.0-59.9, adult ([facility]) Start: 06-03-2020 Patient encounter procedure ISIAH Trev [facility] Procedures Date Procedure Procedure Detail Performing Clinician Start: 09-17-2024 End: 09-17-2024 Psychotherapy w/patient 60 minutes Post traumatic stress disorder (PTSD) Claribel ZARATE Work Phone: Comment on above: Post traumatic stres s disorder (PTSD) (Primary Dx); Generalized anxiety disorder Start: 07-15-2024 End: 07-15-2024 Psychotherapy w/patient 45 minutes Generalized anxiety disorder Claribel ZARATE Work Phone: Comment on above: Generalized anxiety disorder (Primary Dx) Start: 06-27-2024 Follow-up visit Follow-up MASSIEL THACKER Start: 06-13-2024 End: 06-13-2024 Psychotherapy w/patient 45 minutes Post traumatic stress disorder (PTSD) Claribel ZARATE Work Phone: Comment on above: Post traumatic stres s disorder (PTSD) (Primary Dx); Generalized anxiety disorder Start: 04-25-2024 [facility] Core y Teena DO Work Phone: Start: 03-26-2024 Adult depression screening assessment Yashira Mi 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NURSE Work Phone: Start: 12-07-2023 Microscopic observat ion [Identifier] in Cervix by Cyto stain Yashira Mi 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NURSE Work Phone: Start: 11-28-2023 Follow-up visit Follow-up PAM MITTAL [...] Psychiatric diagnostic eval w/medical services Bipolar depression ([facility]) Yashira Mi PLANER OPERATOR / GRADERRIVA Group Work Phone: Comment on above: Generalized anxiety disorder (Primary Dx); Bipolar depression ([facility]); Post traumatic stress disorder (PTSD); Attention deficit hyperactivity disorder, combined type Start: 10-08-2023 Gluc bld gluc mntr d ev cleared fda spec home use Harley Mirandas [employer] Work Phone: Start: 10-08-2023 Adult depression screening assessment Harley Thacker [employer] Work Phone: Start: 04-10-2022 OR Wound Debridement/I&D/Hydraden [...] Treatment Date Care Activity Detail Author Start: 12-06-2026 Screening for malignant neoplasm of cervix Pap Smear [facility] Start: 09-06-2025 Tobacco Screening Tobacco Screening [facility] Start: 09-01-2025 Adult BMI Screening Adult BMI Screening [facility] Start: 09-01-2025 Tobacco Screening Tobacco Screening [facility] Start: 08-11-2025 Tobacco Screening Tobacco Screening [facility] Start: 08-08-2025 Adult BMI Screening Adult BMI Screening [facility] Start: 08-08-2025 Tobacco Screening Tobacco Screening [facility] Start: 07-15-2025 Tobacco Screening Tobacco Screening [facility] Start: 06-29-2025 Tobacco Screening Tobacco Screening [facility] Start: 06-27-2025 Adult BMI Screening Adult BMI Screening [facility] Start: 06-27-2025 Tobacco Screening Tobacco Screening [facility] Start: 06-13-2025 Tobacco Screening Tobacco Screening [facility] Start: 05-28-2025 Tobacco Screening Tobacco Screening [facility] Start: 05-15-2025 Adult BMI Screening Adult BMI Screening [facility] Start: 03-26-2025 Depression Screening Depression Screening [facility] Start: 12-24-2024 End: 12-24-2024 Patient encounter procedure 12/24/2024 3:00 PM EDT Off ice Visit [facility] [address] [place] [address] [place] [address] Harley Thacker, 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NURSE [address] [place] [address], [place] [address] [facility] Start: 12-06-2024 Adult BMI Screening Adult BMI Screening [facility] Start: 12-06-2024 Diabetic foot examination Diabetic Foot Exam [facility] Start: 12-06-2024 Tobacco Screening Tobacco Screening [facility] Start: 11-27-2024 Adult BMI Screening Adult BMI Screening [facility] Start: 11-27-2024 Tobacco Screening Tobacco Screening [facility] Start: 11-13-2024 Adult BMI Screening Adult BMI Screening [facility] Start: 11-13-2024 Tobacco Screening Tobacco Screening [facility] Start: 11-11-2024 Tobacco Screening Tobacco Screening [facility] Start: 11-08-2024 Tobacco Screening Tobacco Screening [facility] Start: 11-06-2024 Adult BMI Screening Adult BMI Screening [facility] Start: 11-06-2024 Tobacco Screening Tobacco Screening [facility] Start: 11-06-2024 End: 11-06-2024 Telemedicine consultation with patient 11/06/2024 10:30 AM EST Telemedicine [facility] [address] [place] [phone] Yashira Mi APRN-NURSE [address] [place] [address], [place] [address] [facility] Start: 10-19-2024 Adult BMI Screening Adult BMI Screening [facility] Start: 10-19-2024 End: 04-18-2025 CBC W Auto Differential panel - Blood COMPLETE BLOOD COUNT AND DIFFERENTIAL Lab Routine Primary hypercoagulable state (HCC) MTHFR mutation Iron deficiency anemia, unspecified iron deficiency anemia type Expected: 10/19/2024, Expires: 04/18/2025 [facility] Work Phone: Comment on above: Expected: 10/19/2024, Expires: Start: 10-19-2024 End: 04-18-2025 Cobalamin (Vitamin B12) [Mass/volume] in Serum or Plasma VITAMIN B12 Lab Routine Primary hypercoagulable state (HCC) MTHFR mutation Iron deficiency anemia, unspecified iron deficiency anemia type Expected: 10/19/2024, Expires: 04/18/2025 [facility] Comment on above: Expected: 10/19/2024, Expires: Start: 10-19-2024 End: 04-18-2025 Comprehensive metabolic 2000 panel - Serum or Plasma COMPREHENSIVE METABOLIC PANEL Lab Routine Primary hypercoagulable state (HCC) MTHFR mutation Iron deficiency anemia, unspecified iron deficiency anemia type Expected: 10/19/2024, Expires: 04/18/2025 [facility] Comment on above: Expected: 10/19/2024, Expires: Start: 10-19-2024 End: 04-18-2025 Ferritin [Mass/volume] in Serum or Plasma FERRITIN Lab Routine Primary hypercoagulable state (HCC) MTHFR mutation Iron deficiency anemia, unspecified iron deficiency anemia type Expected: 10/19/2024, Expires: 04/18/2025 [facility] Comment on above: Expected: 10/19/2024, Expires: Start: 10-19-2024 End: 04-18-2025 Folate [Mass/volume] in Serum or Plasma FOLATE, SERUM Lab Routine Primary hypercoagulable state (HCC) MTHFR mutation Iron deficiency anemia, unspecified iron deficiency anemia type Expected: 10/19/2024, Expires: 04/18/2025 [facility] Comment on above: Expected: 10/19/2024, Expires: Start: 10-19-2024 End: 04-18-2025 Iron and Iron binding capacity panel - Serum or Plasma IRON AND TIBC Lab Routine Primary hypercoagulable state (HCC) MTHFR mutation Iron deficiency anemia, unspecified iron deficiency anemia type Expected: 10/19/2024, Expires: 04/18/2025 [facility] Comment on above: Expected: 10/19/2024, Expires: Start: 10-19-2024 Tobacco Screening Tobacco Screening [facility] Start: 10-17-2024 End: 10-17-2024 Follow-up encounter 10/17/2024 11:30 AM EST Visi t (SP) Office Hematology/Oncology [address] [place] [address] Sharif Joseph MD [address] [place] [address] 6 month follow up lab Hematology/Oncolo gy Comment on above: 6 month follow up lab Start: 10-17-2024 End: 10-17-2024 Patient encounter procedure 10/17/2024 11:15 AM EST Office Visit [facility] [address] [place] [address] [place] [address] 6 month follow up lab [facility] Comment on above: 6 month follow up lab Start: 10-15-2024 End: 10-15-2024 Telemedicine consultation with patient 10/15/2024 12:00 PM EST Telemedicine [facility] [place] [phone] Claribel Olson LISW [address] [place] [phone] [facility] Start: 10-08-2024 Adult BMI Screening Adult BMI Screening [facility] Start: 10-08-2024 Depression Screening Depression Screening [facility] Start: 10-08-2024 Tobacco Screening Tobacco Screening [facility] Start: 10-03-2024 End: 10-03-2024 Clinical Support 10/03/2024 8:40 AM EST Clinical Support [facility] [address] [place] [phone] Harley Thacker APRN-DAVID [address] [place] [phone] [facility] Start: 09-17-2024 End: 09-17-2024 Telemedicine consultation with patient 09/17/2024 12:00 PM EST Telemedicine [facility] [address] [place] [phone] Claribel Olson LISW [address] [place] [phone] [facility] Start: 09-11-2024 End: 09-11-2024 Telemedicine consultation with patient 09/11/2024 9:00 AM EST Telemedicine [facility] [address] [place] [address] Yashira Mi, 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NURSE [address] [place] [address], [place] [address] [facility] Start: 09-01-2024 End: 09-01-2024 Patient encounter procedure 09/01/2024 9:20 AM EST Off ice Visit [facility] [address] [place] [address], [place] [phone] Harley Thacker 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NURSE [address] [place] [phone] [facility] Start: 08-29-2024 End: 08-08-2025 Basic metabolic 2000 panel - Serum or Plasma Basic Metabolic Panel Lab Routine Primary hypertension Expected: 08/29/2024 (Approximate), Expires: 08/08/2025 [facility] Work Phone: Comment on above: Expected: 08/29/2024 (Approximate), Expi res: 08/08/2025 Start: 08-25-2024 End: 08-25-2024 Clinical Support 08/25/2024 8:40 AM EST Clinical Support [facility] [address] [place] [address], [place] [phone] Harely Thacker 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NURSE [address] [place] [phone] [facility] Start: 08-14-2024 End: 08-14-2024 Clinical Support 08/14/2024 11:00 AM EST Clinical Support [facility] [address] [place] [phone] Harley Thacker 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NURSE [address] [place] [phone] [facility] Start: 08-12-2024 End: 08-12-2024 Telemedicine consultation with patient 08/12/2024 11:00 AM EST Telemedicine [facility] [place] [address] Claribel Olson LISW [address] [facility] [place] [place] [address] [facility] Start: 08-08-2024 End: 08-08-2024 Patient encounter procedure 08/08/2024 10:40 AM EST Office Visit [facility] [address] [place] [phone] Harley Thacker 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NURSE [address] [place] [phone] [facility] Start: 07-15-2024 End: 07-15-2024 Telemedicine consultation with patient 07/15/2024 11:00 AM EST Telemedicine [facility] [address] [place] [address] [facility] [place] [address] Claribel Olson, STUFFED CASING TIER [address] [facility] [place] [address] [facility] Start: 07-02-2024 End: 07-02-2024 Telemedicine consultation with patient 07/02/2024 8:00 AM EDT Telemedicine [facility] [address] [place] [address], [place] [phone] Yashira Mi, 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NURSE [address] [facility] [place] [address] [facility] Start: 06-27-2024 End: 06-27-2024 Patient encounter procedure 06/27/2024 10:40 AM EDT Office Visit [facility] [address] [place] [address] [place] [address] Harley Thacker APRN-CNP [address] [place] [address], [facility] [place] [phone] [facility] Start: 06-13-2024 End: 06-13-2024 Telemedicine consultation with patient 06/13/2024 11:00 AM EDT Telemedicine [facility] [address] [place] [address] Claribel Olson LISW [address] [place] [address] [facility] Start: 05-04-2024 Influenza vaccination [facility] Start: 04-25-2024 End: 04-25-2024 Patient encounter procedure 04/25/2024 9:00 AM EDT Procedure Visit [facility] Dannie Dickinson DO [address] [place] [address] [place] [address] [facility] Start: 04-18-2024 End: 04-18-2024 Follow-up encounter 04/18/2024 11:30 AM EDT [facility] t (SP) Office Hematology/Oncology [address] [place] [address] Sharif Joseph MD [address] [place] [address] 3 month follow up lab Hematology/Oncolo gy Comment on above: 3 month follow up lab Start: 04-18-2024 End: 04-18-2024 Patient encounter procedure 04/18/2024 11:15 AM EDT Office Visit [facility] [address] [place] [address] [place] [address] 3 month follow up lab [facility] Comment on above: 3 month follow up lab Start: 04-08-2024 [facility] Start: 03-20-2024 End: 12-19-2024 CBC W Auto Differential panel - Blood COMPLETE BLOOD COUNT AND DIFFERENTIAL Lab Routine Factor V Leiden (HCC) MTHFR mutation Primary hypercoagulable state (HCC) Iron deficiency anemia, unspecified iron deficiency anemia type Expected: 03/20/2024 (Approximate), Expires: 12/19/2024 [facility] Work Phone: Comment on above: Expected: 03/20/2024 (Approximate), Expi res: 12/19/2024 Start: 03-20-2024 End: 12-19-2024 Cobalamin (Vitamin B12) [Mass/volume] in Serum or Plasma VITAMIN B12 Lab Routine Factor V Leiden (HCC) MTHFR mutation Primary hypercoagulable state (HCC) Iron deficiency anemia, unspecified iron deficiency anemia type Expected: 03/20/2024 (Approximate), Expires: 12/19/2024 [facility] Work Phone: Comment on above: Expected: 03/20/2024 (Approximate), Expi res: 12/19/2024 Start: 03-20-2024 End: 12-19-2024 Comprehensive metabolic 2000 panel - Serum or Plasma COMPREHENSIVE METABOLIC PANEL Lab Routine Factor V Leiden (HCC) MTHFR mutation Primary hypercoagulable state (HCC) Iron deficiency anemia, unspecified iron deficiency anemia type Expected: 03/20/2024 (Approximate), Expires: 12/19/2024 [facility] Work Phone: Comment on above: Expected: 03/20/2024 (Approximate), Expi res: 12/19/2024 Start: 03-20-2024 End: 12-19-2024 Ferritin [Mass/volume] in Serum or Plasma FERRITIN Lab Routine Factor V Leiden (HCC) MTHFR mutation Primary hypercoagulable state (HCC) Iron deficiency anemia, unspecified iron deficiency anemia type Expected: 03/20/2024 (Approximate), Expires: 12/19/2024 [facility] Work Phone: Comment on above: Expected: 03/20/2024 (Approximate), Expi res: 12/19/2024 Start: 03-20-2024 End: 12-19-2024 Folate [Mass/volume] in Serum or Plasma FOLATE, SERUM Lab Routine Factor V Leiden (HCC) MTHFR mutation Primary hypercoagulable state (HCC) Iron deficiency anemia, unspecified iron deficiency anemia type Expected: 03/20/2024 (Approximate), Expires: 12/19/2024 [facility] Work Phone: Comment on above: Expected: 03/20/2024 (Approximate), Expi res: 12/19/2024 Start: 03-20-2024 End: 12-19-2024 Iron and Iron binding capacity panel - Serum or Plasma IRON AND TIBC Lab Routine Factor V Leiden (HCC) MTHFR mutation Primary hypercoagulable state (HCC) Iron deficiency anemia, unspecified iron deficiency anemia type Expected: 03/20/2024 (Approximate), Expires: 12/19/2024 [facility] Work Phone: Comment on above: Expected: 03/20/2024 (Approximate), Expi res: 12/19/2024 Start: 01-02-2024 End: 04-02-2024 Homocysteine [Moles/volume] in Serum or Plasma HOMOCYSTEINE Lab Routine Factor V Leiden (HCC) Gastrointestinal hemorrhage, unspecified gastrointestinal hemorrhage type Iron deficiency anemia, unspecified iron deficiency anemia type MTHFR mutation Primary hypercoagulable state (HCC) History of pulmonary embolism Expected: 01/02/2024 (Approximate), Expires: 04/02/2024 [facility] Work Phone: Comment on above: Expected: 01/02/2024 (Approximate), Expi res: 04/02/2024 Start: 12-25-2023 End: 12-25-2023 Patient encounter procedure 12/25/2023 9:30 AM EDT Off ice Visit [facility] [address] [place] [address] Claribel Olson LISW [address] [place] [address] [facility] Start: 12-12-2023 End: 12-12-2023 Patient encounter procedure 12/12/2023 9:30 AM EDT Appointment [facility] [address] [place] [phone] [facility] Start: 12-11-2023 End: 12-11-2023 Patient encounter procedure 12/11/2023 9:30 AM EDT Off ice Visit [facility] [address] [place] [phone] Claribel Olson LISW [address] [place] [address] [facility] Start: 12-10-2023 End: 12-10-2023 Admission to same day surgery center 12/10/2023 12:30 PM EDT - 12/10/2023 1:00 PM EDT Surgery [facility] [address] [place] [phone] Collins Mejia DO [address] [place] [address] ESOPHAGOGASTRODUODENOSCOPY DIAGNOSTIC [47946 (CPT )] [facility] Comment on above: ESOPHAGOGASTRODUODENOSCOPY DIAGNOSTIC [4 3235 (CPT )] Start: 12-10-2023 End: 12-10-2023 Esophagogastroduodenoscopy transoral diagnostic ESOPHAGOGASTRODUODENOSCOPY DIAGNOSTIC gastroesophageal reflux, nausea, vomiting 12/10/2023 12:30 PM EDT [facility] Start: 12-10-2023 Subsequent hospital visit by physician 12/10/2023 12:30 PM EDT Hospital Encounter [facility] [address] [place] [phone] Collins Mejia DO [address] [place], [place] [phone] [facility] Start: 12-10-2023 End: 12-10-2023 Admission to same day surgery center 12/10/2023 7:30 AM EDT - 12/10/2023 8:00 AM EDT Surgery [facility] [address] [place] [phone] Collins Mejia, DO [address] [place], [place] [phone] ESOPHAGOGASTRODUODENOSCOPY DIAGNOSTIC [50678 (CPT )] [facility] Comment on above: ESOPHAGOGASTRODUODENOSCOPY DIAGNOSTIC [4 3235 (CPT )] Start: 12-10-2023 End: 12-10-2023 Esophagogastroduodenoscopy transoral diagnostic ESOPHAGOGASTRODUODENOSCOPY DIAGNOSTIC gastroesophageal reflux, nausea, vomiting 12/10/2023 7:30 AM EDT [facility] Start: 12-10-2023 Subsequent hospital visit by physician 12/10/2023 7:30 AM EDT Hospital Encounter [facility] [address] [place] [phone] Collins Mejia, DO [address] [place], [place] [phone] [facility] Start: 12-07-2023 End: 12-07-2023 Patient encounter procedure 12/07/2023 11:00 AM EDT [facility] [address] [place] [phone] Harley Thacker APRN-DAVID [address] [place] [phone] [facility] Start: 11-28-2023 End: 11-28-2023 Patient encounter procedure 11/28/2023 10:15 AM EDT Office Visit [facility] [address] [place] [phone] Pam Mittal MD [address] [place] [phone] [facility] Start: 11-27-2023 End: 11-27-2023 Patient encounter procedure [facility] Start: 11-21-2023 End: 11-12-2024 Echo complete W/O contrast Echo complete W/O contrast Echocardiography Routine Preoperative clearance Abnormal echocardiogram History of pulmonary embolism Atrial mass Expected: 11/21/2023 (Approximate), Expires: 11/12/2024 [facility] Comment on above: Expected: 11/21/2023 (Approximate), Expi res: 11/12/2024 Start: 11-19-2023 End: 11-19-2023 Admission to same day surgery center 11/19/2023 12:15 PM EDT - 11/19/2023 12:45 PM EDT Surgery [facility] [address] [place] [address] Collins Mejia, DO [address] [place], [place] [phone] ESOPHAGOGASTRODUODENOSCOPY DIAGNOSTIC [56007 (CPT )] [facility] Comment on above: ESOPHAGOGASTRODUODENOSCOPY DIAGNOSTIC [4 3235 (CPT )] Start: 11-19-2023 End: 11-19-2023 Anesthesia consultation 11/19/2023 12:15 PM EDT Anesthesia Event [facility] [address] [place] [phone] Mayra Raya, DO [address] [place] [address] [facility] Start: 11-19-2023 End: 11-19-2023 Esophagogastroduodenoscopy transoral diagnostic ESOPHAGOGASTRODUODENOSCOPY DIAGNOSTIC gastroesophageal reflux, nausea, vomiting 11/19/2023 12:15 PM EDT [facility] Start: 11-19-2023 Subsequent hospital visit by physician [facility] Start: 11-15-2023 End: 11-12-2024 XR Chest PA and Lateral X-ray chest 2 views Imaging Routine Preoperative clearance Expected: 11/15/2023 (Approximate), Expires: 11/12/2024 [facility] Work Phone: Comment on above: Expected: 11/15/2023 (Approximate), Expi res: 11/12/2024 Start: 11-15-2023 End: 11-15-2023 Patient encounter procedure 11/15/2023 10:30 AM EDT Appointment [facility] Imaging [address] [place] [address] [facility] Start: 11-14-2023 End: 11-14-2023 Patient encounter procedure 11/14/2023 3:15 PM EDT Off ice Visit [facility] [address] [place] [phone] Harley Thacker APRN-NURSE [address] [place] [address], [place] [address] [facility] Start: 11-14-2023 End: 11-13-2024 CT Chest WO and CT angiogram Coronary arteries W contrast IV CT angiogram chest Imaging Routine Abnormal echocardiogram History of DVT (deep vein thrombosis) History of pulmonary embolism Factor 5 Leiden mutation, heterozygous (CMS-HCC) 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 [place] [address] Claribel Olson LISW [address] [place] [address] [facility] Start: 11-09-2023 End: 11-09-2023 Patient encounter procedure 11/09/2023 9:45 AM EST Procedure visit [facility] - Pre Admit [address] [place] [phone] [facility] Pre Ad[facility] Start: 11-07-2023 End: 11-07-2023 Anesthesia consultation 11/07/2023 11:59 PM EST Anesthesia Event [facility] [address] [place] [address] Mayra Raya, DO [address] [facility], [place] [phone] [facility] Start: 11-07-2023 End: 11-07-2023 Patient encounter procedure 11/07/2023 10:00 AM EST Office Visit [facility] [address] [place] [address] Corine Catherine, 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[facility] [address] [place] [address] [facility] Start: 10-30-2023 End: 10-30-2023 Patient encounter procedure 10/30/2023 9:30 AM EST Off ice Visit [facility] [address] [place] [address], [place] [phone] Claribel Olson LISW [address] [facility] [place] [address] [facility] Start: 10-19-2023 End: 10-19-2023 Patient encounter procedure 10/19/2023 10:00 AM EST Office Visit [facility] [address] [place] [address] [place] [address] Yashira Mi, 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NURSE [address] [place] [address], [place] [address] [facility] Start: 09-03-2023 Behavioral Health Screening Behavioral Health Screening [facility] Start: 09-03-2023 Depression Assessment Depression Assessment [facility] Start: 05-04-2023 Covid-19 Vaccine ( season) Covid-19 Vaccine () [facility] Start: 05-04-2023 Influenza vaccination [facility] Start: 05-03-2022 Registered Recurring Registered Recurring [facility] - O/P Start: 04-21-2022 Registered Recurring Registered Recurring [facility] - O/P Start: 04-10-2022 [facility] Work Phone: Start: 04-10-2022 [facility] Work Phone: Start: 04-10-2022 OR Wound Debridement/I&D/Hydradenitis (Right) OR Wound Debridement/I&D/Hydradenitis (Right) [facility] Start: 04-10-2022 End: 04-10-2022 Admission to same day surgery center Departed Surgical Day Care [facility] [place] Start: 04-06-2022 End: 04-06-2022 Patient encounter procedure Departed Clinical [facility]-Pre-Surgical Testing Start: 03-13-2022 End: 03-13-2022 [facility] Work Phone: Start: 02-13-2022 End: 02-13-2022 [facility] Work Phone: Start: 05-04-2020 Influenza vaccination given Sequential Influenza Vacci ne (#1) [facility] Start: 11-17-2019 Screening for malignant neoplasm of cervix HPV Testing [facility] Start: 09-03-2019 DTaP,Tdap and Td Vaccines (8 - Td or Tdap) DTaP,Tdap and Td Vaccines (8 - Td or Tdap) [facility] Start: 09-03-2019 Urine microalbumin profile DTaP,Tdap,Td Vaccine (8 - T d or Tdap) [facility] Start: 06-10-2019 Tetanus vaccination Tetanus: Every 10yrs [facility] Start: 2010 Screening for malignant neoplasm of cervix [facility] Start: 2008 Shingrix Vaccine (1 of 2) Shingrix Vaccine (1 of 2) [facility] Start: 11-17-2007 Adult BMI Follow Up Plan Adult BMI Follow Up Plan [facility] Start: 11-17-2007 Anxiety Screening Anxiety Screening [facility] Start: 11-17-2007 Depression Screening Depression Screening [facility] Start: 11-17-2007 Hepatitis C antibody, confirmatory test Hepatitis C Screening [facility] Start: 11-17-2007 Hepatitis C screening Hepatitis C Screening [facility] Start: 11-17-2007 HIV screening HIV Screening [facility] Start: 2004 HIV screening HIV Screening [facility] Start: 2001 Adolescent depression screening assessment Depression Screening (PHQ9) [facility] Start: 2000 Screening for malignant neoplasm of cervix Cervical Cancer Screening [facility] Start: 11-17-1995 Pneumococcal vaccination Pneumococcal Vaccine (1 of 2 - PCV) [facility] Start: 1994 Covid-19 Vaccine (#1) Covid-19 Vaccine (#1) [facility] Start: 1992 History and physical examination, annual for health maintenance Wellness Visit [facility] Start: 1989 Glaucoma screening Diabetic Ophthalmology Exam [facility] Start: 1989 Screening for malignant neoplasm of cervix Pap Smear [facility] Start: 1989 Urine screening for protein Urine Microalbumin [facility] Calprotectin [Mass/m ass] in Stool Calprotectin stool Lab Routine Diarrhea, unspecified type 11/07/2023 10:38 PM EST [facility] End: 11-06-2024 Calprotectin stool Calprotectin stool Lab Routine Diarrhea, unspecified type 1 Occurrences starting 11/07/2023 until 11/06/2024 [facility] Comment on above: 1 Occurrences starting 11/07/2023 until 11/06/2024 End: 11-28-2024 CBC W Auto Differential panel - Blood CBC + DIFF Lab Routine Factor V Leiden (HCC) Gastrointestinal hemorrhage, unspecified gastrointestinal hemorrhage type Iron deficiency anemia, unspecified iron deficiency anemia type Every 3 weeks for 6 Occurrences starting 11/29/2023 until 11/28/2024 [facility] Work Phone: Comment on above: Every 3 weeks for 6 Occurrences starting 11/29/2023 until 11/28/2024 End: 11-28-2024 Cobalamin (Vitamin B12) [Mass/volume] in Serum or Plasma VITAMIN B12 BLOOD Lab Routine Factor V Leiden (HCC) Gastrointestinal hemorrhage, unspecified gastrointestinal hemorrhage type Iron deficiency anemia, unspecified iron deficiency anemia type Every 3 weeks for 6 Occurrences starting 11/29/2023 until 11/28/2024 [facility] Work Phone: Comment on above: Every 3 weeks for 6 Occurrences starting 11/29/2023 until 11/28/2024 End: 11-28-2024 Comprehensive metabolic 2000 panel - Serum or Plasma COMP METABOLIC PANEL Lab Routine Factor V Leiden (HCC) Gastrointestinal hemorrhage, unspecified gastrointestinal hemorrhage type Iron deficiency anemia, unspecified iron deficiency anemia type Every 3 weeks for 6 Occurrences starting 11/29/2023 until 11/28/2024 [facility] Work Phone: Comment on above: Every 3 weeks for 6 Occurrences starting 11/29/2023 until 11/28/2024 End: 12-06-2024 Cytopathology procedure, preparation of smear, genital source Pap Smear Pathology and Cytology Routine Wellness examination Encounter for Papanicolaou smear for cervical cancer screening 1 Occurrences starting 12/07/2023 until 12/06/2024 [employer] Work Phone: Comment on above: 1 Occurrences starting 12/07/2023 until 12/06/2024 End: 11-06-2024 Esophagogastroduodenoscopy EGD GI Routine Gastroesophageal reflux disease, unspecified whether esophagitis present Nausea and vomiting, unspecified vomiting type 1 Occurrences starting 11/07/2023 until 11/06/2024 [employer] Work Phone: Comment on above: 1 Occurrences starting 11/07/2023 until 11/06/2024 Esophagogastroduoden oscopy transoral diagnostic ESOPHAGOGASTRODUODENOSCOPY DIAGNOSTIC gastroesophageal reflux, nausea, vomiting SOMERS SURGERY End: 11-28-2024 Ferritin [Mass/volume] in Serum or Plasma FERRITIN BLD Lab Routine Factor V Leiden (HCC) Gastrointestinal hemorrhage, unspecified gastrointestinal hemorrhage type Iron deficiency anemia, unspecified iron deficiency anemia type Every 3 weeks for 6 Occurrences starting 11/29/2023 until 11/28/2024 [facility] Work Phone: Comment on above: Every 3 weeks for 6 Occurrences starting 11/29/2023 until 11/28/2024 End: 11-28-2024 Folate [Mass/volume] in Serum or Plasma FOLATE SERUM Lab Routine Factor V Leiden (HCC) Gastrointestinal hemorrhage, unspecified gastrointestinal hemorrhage type Iron deficiency anemia, unspecified iron deficiency anemia type Every 3 weeks for 6 Occurrences starting 11/29/2023 until 11/28/2024 [facility] Work Phone: Comment on above: Every 3 weeks for 6 Occurrences starting 11/29/2023 until 11/28/2024 End: 12-06-2024 High risk HPV w/yoshi High risk HPV w/yoshi Lab Routine Wellness examination Encounter for Papanicolaou smear for cervical cancer screening 1 Occurrences starting 12/07/2023 until 12/06/2024 [facility] Comment on above: 1 Occurrences starting 12/07/2023 until 12/06/2024 End: 11-28-2024 Iron and Iron binding capacity panel - Serum or Plasma IRON + TIBC Lab Routine Factor V Leiden (HCC) Gastrointestinal hemorrhage, unspecified gastrointestinal hemorrhage type Iron deficiency anemia, unspecified iron deficiency anemia type Every 3 weeks for 6 Occurrences starting 11/29/2023 until 11/28/2024 [facility] Work Phone: Comment on above: Every 3 weeks for 6 Occurrences starting 11/29/2023 until 11/28/2024 Patient Education [facility] Work Phone: Patient referral [facility] Work Phone: [facility] Immunizations Immunization Date Immunization Notes Care Provider Harriet lao 06-15-2014 influenza, seasonal, injectable Harley Thacker 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NURSE Work Phone: [facility] 06-15-2014 influenza virus vacc ine, unspecified formulation Harley Thacker 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NURSE Work Phone: [facility] 09-03-2009 diphtheria and tetan us toxoids, adsorbed for pediatric use Harley Thacker 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NURSE Work Phone: [facility] 06-10-2009 meningococcal polysaccharide (groups A, C, Y and W-135) diphtheria toxoid conjugate vaccine (MCV4P) [facility] 06-10-2009 tetanus toxoid, redu iam diphtheria toxoid, and acellular pertussis vaccine, adsorbed [facility] 06-09-2009 influenza virus vacc ine, whole virus Harley Thacker 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NURSE Work Phone: [facility] 06-09-2009 influenza, seasonal, injectable [facility] 06-15-2005 influenza virus vacc ine, whole virus Harley Thacker 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NURSE Work Phone: [facility] 06-15-2005 influenza, seasonal, injectable [facility] 12-14-2003 hepatitis B vaccine, pediatric or pediatric/adolescent dosage [facility] 12-14-2003 hepatitis B vaccine, unspecified formulation Sharif Joseph MD Work Phone: [facility] 08-26-2003 hepatitis B vaccine, pediatric or pediatric/adolescent dosage [facility] 08-26-2003 hepatitis B vaccine, unspecified formulation Sharif Joseph MD Work Phone: [facility] 03-30-2003 hepatitis B vaccine, pediatric or pediatric/adolescent dosage [facility] 03-30-2003 hepatitis B vaccine, unspecified formulation Sharif Joseph MD Work Phone: [facility] 02-22-1996 diphtheria, tetanus toxoids and acellular pertussis vaccine [facility] 02-22-1996 diphtheria, tetanus toxoids and acellular pertussis vaccine, unspecified formulation Harley Thacker 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NURSE Work Phone: [facility] 12-24-1995 measles, mumps and rubella virus vaccine [facility] 12-24-1995 poliovirus vaccine, inactivated [facility] 12-24-1995 trivalent poliovirus vaccine, live, oral Harley Thacker 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NURSE Work Phone: [facility] 05-14-1991 diphtheria, tetanus toxoids and acellular pertussis vaccine [facility] 05-14-1991 diphtheria, tetanus toxoids and pertussis vaccine Harley Thacker 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NURSE Work Phone: [facility] 05-14-1991 haemophilus influenz ae type b vaccine, conjugate unspecified formulation [facility] 05-14-1991 poliovirus vaccine, inactivated [facility] 05-14-1991 trivalent poliovirus vaccine, live, oral Harley Thacker 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NURSE Work Phone: [facility] 02-26-1991 measles, mumps and rubella virus vaccine [facility] 12-18-1990 haemophilus influenz ae type b vaccine, conjugate unspecified formulation [facility] 07-01-1990 diphtheria, tetanus toxoids and acellular pertussis vaccine [facility] 07-01-1990 diphtheria, tetanus toxoids and pertussis vaccine Harley Thacker 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NURSE Work Phone: [facility] 04-29-1990 diphtheria, tetanus toxoids and acellular pertussis vaccine [facility] 04-29-1990 diphtheria, tetanus toxoids and pertussis vaccine Harley Thacker 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NURSE Work Phone: [facility] 04-29-1990 poliovirus vaccine, inactivated [facility] 04-29-1990 trivalent poliovirus vaccine, live, oral Harley Thacker 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NURSE Work Phone: [facility] 02-27-1990 diphtheria, tetanus toxoids and acellular pertussis vaccine [facility] 02-27-1990 diphtheria, tetanus toxoids and pertussis vaccine Harley Thacker 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NURSE Work Phone: [facility] 02-27-1990 poliovirus vaccine, inactivated [facility] 02-27-1990 trivalent poliovirus vaccine, live, oral Harley Thacker 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NURSE Work Phone: [facility] Payers Date Payer Category Payer Medicaid [place] [id number] 2020-Present [id number] 2019 Medicaid [id number] 2019 Medicare MEDICARE MEDICAR E PART A & B [id number] 2019-Present [place] [id number] [id number] 2019 Medicare [id number]. 1.13.424.2.7.3.6 [id number] 1989 Unknown [id number] 2.16.840.1.852994.3.579.2.903 1989 Unknown [id number] 2.16.840.1.866313.3.579.2.593 1989 Unknown [id number] 2.16.840.1.934797.3.579.2.593 1989 Unknown [id number] 2.16.840.1.063591.3.579.2.593 1989 Unknown [id number] 2.16.840.1.226038.3.579.2.593 1989 Unknown [id number] 2.16.840.1.681325.3.579.2.593 1989 Unknown [id number] 2.16.840.1.002468.3.579.2.593 1989 Unknown [id number] 2.16.840.1.751235.3.579.2.593 1989 Unknown [id number] 2.16.840.1.005970.3.579.2.593 1989 Unknown [id number] 2.16.840.1.159726.3.579.2.593 1989 Unknown [id number] 2.16.840.1.285678.3.579.2.593 1989 Unknown [id number] 2.16.840.1.670702.3.579.2.593 1989 Unknown [id number] 2.16.840.1.643667.3.579.2.593 1989 Unknown [id number] 2.16.840.1.249406.3.579.2.1259 1989 Unknown [id number] 2.16.840.1.955339.3.579.2.1259 1989 Unknown [id number] 2.16.840.1.031390.3.579.2.1259 1989 Unknown [id number] 2.16.840.1.444943.3.579.2.196 1989 Unknown [id number] 2.16.840.1.779877.3.579.2.196 1989 Unknown [id number] 2.16.840.1.871359.3.579.2.196 1989 Unknown [id number] 2.16.840.1.329610.3.579.2. 1989 Unknown [id number] 2.16.840.1.889550.3.579.2. 1989 Unknown [id number] 2.16.840.1.236660.3.579.2.1285 1989 Unknown [id number] 2.16.840.1.431993.3.579.2.1285 1989 Unknown [id number] 2.16.840.1.933081.3.579.2.1285 1989 Unknown [id number] 2.16.840.1.939563.3.579.2.1285 1989 Unknown [id number] 2.16.840.1.576746.3.579.2.1285 1989 Unknown [id number] 2.840.1.622261.3.579.2.1285 1989 Unknown [id number] 2..840.1.563180.3.579.2.1285 1989 Unknown [id number] 2..840.1.153212.3.579.2.1285 1989 Unknown [id number] 2..840.1.319708.3.579.2.1285 1989 Unknown [id number] 2.840.1.142204.3.579.2.1285 1989 Unknown [id number] 2.16.840.1.357475.3.579.2.1285 1989 Unknown [id number] 2.16.840.1.874236.3.579.2.1285 1989 Unknown [id number] 2.16.840.1.331164.3.579.2.1285 1989 Unknown [id number] 2.16.840.1.460505.3.579.2.1285 1989 Unknown [id number] 2.16.840.1.825087.3.579.2.1285 1989 Unknown [id number] 2.16.840.1.781292.3.579.2.1285 1989 Unknown [id number] 2.16.840.1.610316.3.579.2.1285 1989 Unknown [id number] 2.16.840.1.625135.3.579.2.1285 1989 Unknown [id number] 2.16.840.1.979372.3.579.2.1285 1989 Unknown [id number] 2.16.840.1.647585.3.579.2.1285 1989 Unknown [id number] 2.16.840.1.902809.3.579.2.1285 1989 Unknown [id number] 2.16.840.1.105242.3.579.2.1285 1989 Unknown [id number] 2.16.840.1.340349.3.579.2.1285 1989 Unknown [id number] 2.16.840.1.330828.3.579.2.1285 1989 Unknown [id number] 2.16.840.1.249057.3.579.2.1285 1989 Unknown [id number] 2.16.840.1.371782.3.579.2.1285 1989 Unknown [id number] 2.16.840.1.115964.3.579.2.1285 1989 Unknown [id number] 2.16.840.1.461341.3.579.2.1285 1989 Unknown [id number] 2.16.840.1.070503.3.579.2.1285 1989 Unknown [id number] 2.16.840.1.798519.3.579.2.1285 1989 Unknown [id number] 2.840.1.068955.3.579.2.1285 1989 Unknown [id number] 2.840.1.036156.3.579.2.1285 1989 Unknown [id number] 2..840.1.812556.3.579.2.1285 1989 Unknown [id number] 2.840.1.690702.3.579.2.1285 1989 Unknown [id number] 2.840.1.409107.3.579.2.1285 1989 Unknown [id number] 2.840.1.161648.3.579.2.1285 1989 Unknown [id number] 2.0.1.947399.3.579.2.1285 1989 Unknown [id number] 2.0.1.336191.3.579.2.1285 1989 Unknown [id number] 2.840.1.712059.3.579.2.1285 1989 Unknown [id number] 2.840.1.582510.3.579.2.1285 1989 Unknown [id number] 2.840.1.549816.3.579.2.1285 1989 Unknown [id number] .840.1.820512.3.579.2.1285 1989 Unknown [id number] 2.840.1.609380.3.579.2.1285 1989 Unknown [id number] 2.840.1.178663.3.579.2.1285 1989 Unknown [id number] 2.840.1.201853.3.579.2.1285 1989 Unknown [id number] 2.840.1.377433.3.579.2.1285 1989 Unknown [id number] 2.16.840.1.601698.3.579.2.1285 1989 Unknown [id number] 2.16.840.1.734865.3.579.2.1285 1989 Unknown [id number] 2.16.840.1.609877.3.579.2.1285 1989 Unknown [id number] 2.16.840.1.229738.3.579.2.1285 1989 Unknown [id number] 2.16.840.1.472413.3.579.2.1285 1989 Unknown [id number] 2.16.840.1.380982.3.579.2.1285 1989 Unknown [id number] 2.16.840.1.693573.3.579.2.1285 1989 Unknown [id number] 2.16.840.1.941671.3.579.2.1285 1989 Unknown [id number] 2.16.840.1.983208.3.579.2.1285 1989 Unknown [id number] 2.16.840.1.161113.3.579.2.1285 1989 Unknown [id number] 2.16.840.1.154082.3.579.2.1285 1989 Unknown [id number] 2.16.840.1.054419.3.579.2.1285 1989 Unknown [id number] 2.16.840.1.999916.3.579.2.1285 1989 Unknown [id number] 2.16.840.1.739189.3.579.2.6 1959 Medicaid [id number] 1960 Medicare [id number] 1960 Self-pay [id number] Social History Date Type Detail Facility Start: 08-02-2020 End: 03-26-2024 Tobacco smoking status NHIS Former smoker [facility] Start: 08-02-2020 End: 10-13-2020 Cigarettes smoked current (pack per day) - Reported [facility] Start: 08-02-2020 End: 03-26-2024 Tobacco use and exposure Never used [facility] Start: 08-02-2020 End: 04-08-2024 Alcohol intake Lifetime non-drinker (finding) [facility] Start: 06-03-2020 History SDOH Alcohol Frequency 1 [facility] Start: 1989 Sex Assigned At Not on file [facility] Exposure to SARS-CoV -2 (event) Not sure [facility] Start: 1989 Sex Assigned At Female [facility] Start: 09-03-2010 End: 09-03-2013 History of tobacco use Current smoker [facility] Start: 09-03-2010 End: 09-03-2013 History of tobacco use Cigarette Smoker [facility] Start: 10-13-2023 End: 09-06-2024 Alcohol intake Current non-drinker of alcohol (finding) [facility] Start: 10-13-2020 End: 10-08-2023 Tobacco use panel [facility] How hard is it for y ou to pay for the very basics like food, housing, medical care, and heating Somewhat hard [facility] Adolescent depressio n screening assessment 14 [facility] Start: 11-11-2022 Gender identity Identifies as female gender (finding) [facility] Start: 11-11-2022 Sexual orientation Heterosexual (finding) [facility] History of tobacco use Passive smoker [facility] Start: 04-06-2015 Sex Female (finding) [facility] Start: 06-19-2023 Alcohol Comment caffeine: more than 4 cups per day [facility] Procedure Code Equipment Code Equipment Origin al Text Equipment Identifier Dates [id number] Start: 03-15-2023 Goals Date Patient Goal Desired Activity /State Clinical Notes 03-01-2022 to 09-17-2024 Psychiatric Progress Note - ELLIOT Baxter - 09/17/2024 12:00 PM ESTPsychiatric Progress Note - ELLIOT Baxter - 09/17/2024 12:00 PM Autumn Thacker 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NURSE - 09/01/2024 9:20 AM EST Note Date & Type Note Facility 09-17-2024 Miscellaneous Notes Outpatient Behavioral Health Progress Note Start Time: 1205pm Stop Time: 1259pm Minutes: 54 Type of session: individual Client Location: Home [...] that there are some limitations compared to ldmq-my-lmas evaluations. We elected to proceed. Problem Statement #1: Anxiety Goal: To decrease [...] appointment and identify feelings they have experienced. Client reflecting on navigating health issues and how is negatively affecting her mood. Therapist helped client process through these feelings and the events that caused them. Therapist employed interactive feedback and supportive reflection to encourage self-exploration and insight, fostering a collaborative space for the client to deepen their understanding and reinforce personal strengths. Therapist and client discussed self-care to improve emotional wellbeing. Client engaged appropriately throughout today's session, participating well throughout. Client appeared receptive to feedback and interventions used. Client continues to be motivated to meet goals. Goals worked on this session: To decrease anxiety Interventions Used: Behavioral/Cognitive Behavioral (CBT) Therapy , Acceptance and Commitment Therapy (ACT), and Solution Focused Therapy to help client devise solutions. help client develop compassion for self. provide client with a safe space to express and process emotions. help client identify supports. help client process feelings and the events that caused them. help client process their past and how it affects their present. help client to examine whether their behaviors are aligned with their skilled nursing goals. Client Progress: Client is making progress towards mutually established therapy goals and will continue to work on utilizing healthy coping skills to manage anxiety symptoms. MSE: Client denied current thoughts, plans, or intent to harm self or others. Affective: Predominant Mood: Pleasant and Calm Range of Affect: Congruent Behavioral: Appearance: Neat Movement/Behavior: Unremarkable Speech: Understandable Attention/Manner: Attentive, Cooperative, and Open Cognitive: Thought Process: Coherent and Goal-oriented Orientation: Person, Place, Time, and Event Memory: Adequate Judgment/Insight: Denies problems Diagnosis/problem addressed at this session: ICD-10-CM 1. Post traumatic stress disorder (PTSD) F43.10 2. Generalized anxiety disorder F41.1 Medication Compliant: Client has been compliant with all medications and agrees to talk with their provider about any concerns or questions regarding their prescribed medications. Plan: Client will be seen for a follow up session in 1 month. Electronic Signature: [facility]LLIOT Baxter [facility] Progress note Formatting of t his note is different from the original. Outpatient Behavioral Health Progress Note Start Time: 1205pm Stop Time: 1259pm Minutes: 54 Type of session: individual Client Location: Home [...] that there are some limitations compared to [id number]-ihha evaluations. We elected to proceed. Problem Statement #1: Anxiety Goal: To decrease [...] appointment and identify feelings they have experienced. Client reflecting on navigating health issues and how is negatively affecting her mood. Therapist helped client process through these feelings and the events that caused them. Therapist employed interactive feedback and supportive reflection to encourage self-exploration and insight, fostering a collaborative space for the client to deepen their understanding and reinforce personal strengths. Therapist and client discussed self-care to improve emotional wellbeing. Client engaged appropriately throughout today's session, participating well throughout. Client appeared receptive to feedback and interventions used. Client continues to be motivated to meet goals. Goals worked on this session: To decrease anxiety Interventions Used: Behavioral/Cognitive Behavioral (CBT) Therapy , Acceptance and Commitment Therapy (ACT), and Solution Focused Therapy to help client devise solutions. help client develop compassion for self. provide client with a safe space to express and process emotions. help client identify supports. help client process feelings and the events that caused them. help client process their past and how it affects their present. help client to examine whether their behaviors are aligned with their skilled nursing goals. Client Progress: Client is making progress towards mutually established therapy goals and will continue to work on utilizing healthy coping skills to manage anxiety symptoms. MSE: Client denied current thoughts, plans, or intent to harm self or others. Affective: Predominant Mood: Pleasant and Calm Range of Affect: Congruent Behavioral: Appearance: Neat Movement/Behavior: Unremarkable Speech: Understandable Attention/Manner: Attentive, Cooperative, and Open Cognitive: Thought Process: Coherent and Goal-oriented Orientation: Person, Place, Time, and Event Memory: Adequate Judgment/Insight: Denies problems Diagnosis/problem addressed at this session: ICD-10-CM 1. Post traumatic stress disorder (PTSD) F43.10 2. Generalized anxiety disorder F41.1 Medication Compliant: Client has been compliant with all medications and agrees to talk with their provider about any concerns or questions regarding their prescribed medications. Plan: Client will be seen for a follow up session in 1 month. Electronic Signature: ELLIOT Baxter [facility] 09-11-2024 Miscellaneous Notes Progress notes: Chief Complaint: Bipolar Disorder, PTSD,ADHD, KATHARINE HPI: Client presents for a medication management apt via tele psychiatry. Client is pleasant and friendly during the session. Client states, I have a slip disc that is 50% slipped and the possibly will have to do surgery on my back. I am kind of mad at myself because it is due to my weight gain. My boyfriend is going to help me get through it. I have myself support system. I am a stress eater. I have gained a lot. I am at 370 pounds. She reports her nightmares disappear when she takes the Prazosin. She states, I have missed a couple doses of it and the nightmares come right back. Client is still receiving therapy services through [facility] with Claribel. Client rates depression at a 6/10 with 10 being the worst. Client rates anxiety at a 4/10 with 10 being the worst. Client endorses medication adherence and denies any [...] Plan/Recommendations: Dx: Bipolar Disorder, PTSD, KATHARINE, ADHD Cymbalta 30mg PO Daily Abilify 10mg PO Daily Vistaril 50mg PO TID PRN Prazosin 4mg PO QHS Strattera 60mg PO Daily Future recommendations:Trileptal The client and I reviewed several treatment [...] Visit via Real-time Synchronous Audiovisual Provider Location: [address] [id number] Patient Location: Patient's home Video [...] that there are some limitations compared to [id number] evaluations. The patient consented to the presence of additional virtual and/or in-person participants. We elected to proceed. Goals, Objectives & Interventions Goals, Objectives, Interventions CHERRI Martinez 09/11/24 0910 documented in this encounter [facility] 09-11-2024 Progress note Formatting of t his note is different from the original. Progress notes: Chief Complaint: Bipolar Disorder, PTSD,ADHD, KATHARINE HPI: Client presents for a medication management apt via tele psychiatry. Client is pleasant and friendly during the session. Client states, I have a slip disc that is 50% slipped and the possibly will have to do surgery on my back. I am kind of mad at myself because it is due to my weight gain. My boyfriend is going to help me get through it. I have myself support system. I am a stress eater. I have gained a lot. I am at 370 pounds. She reports her nightmares disappear when she takes the Prazosin. She states, I have missed a couple doses of it and the nightmares come right back. Client is still receiving therapy services through [facility] with Claribel. Client rates depression at a 6/10 with 10 being the worst. Client rates anxiety at a 4/10 with 10 being the worst. Client endorses medication adherence and denies any [...] Plan/Recommendations: Dx: Bipolar Disorder, PTSD, KATHARINE, ADHD Cymbalta 30mg PO Daily Abilify 10mg PO Daily Vistaril 50mg PO TID PRN Prazosin 4mg PO QHS Strattera 60mg PO Daily Future recommendations:Trileptal The client and I reviewed several treatment [...] Visit via Real-time Synchronous Audiovisual Provider Location: [facility] [address] [id number] Patient Location: Patient's home Video [...] that there are some limitations compared to [id number]-ialr evaluations. The patient consented to the presence of additional virtual and/or in-person participants. We elected to proceed. Goals, Objectives & Interventions Goals, Objectives, Interventions [facility]ERRI Martinez 09/11/24 0910 [facility] Miscellaneous Notes ----- Message from CHERRI Pelaez sent at 09/06/2024 11:21 PM EST ----- Please let her know no evidence of stenosis or embolism. Spoke with Margaret. She verbalized understanding [facility] Telephone encounter Note ----- Message from CHERRI Pelaez sent at 09/06/2024 11:21 PM EST ----- Please let her know no evidence of stenosis or embolism. [facility] Telephone encounter Note Spoke with Margaret. She verbalized understanding [facility] 09-01-2024 History of Present illness Narrative Subjective Patient ID: Margaret Prieto is a 33 y.o. female. REBECA Robles presents to the office for HTN follow up. I changed hydrochlorothiazide to chlorthalidone 50 mg. She has been monitoring BP and reports they have been good. She had labs completed 08/25, and electrolytes were unremarkable. She reports this change in diuretic has been beneficial and she has noticed an improvement with water retention. Denies chest pain, palpitations, or syncope. Her only concern is that she is having cramping to the right side of her neck. She reports it has been ongoing since prior to 08/08 and despite stretches, increasing fluid intake and taking routine magnesium, this pain does not go away. She reports she is concerned about blood clot as has hx of DVT and PE. She also reports increased concern d/t bilatearl arm numbness and tingling. However this has improved today. She reports she notices sometimes when the neck cramping occurs she becomes diaphoretic. Denies injury. No chest pain or shortness of breath. The following portions of the patient's history were reviewed and updated as appropriate: allergies, current medications, past family history, past medical history, past social history, past surgical history, problem list, and medication reconciliation was completed including current medication and post discharge medication. Review of Systems Constitutional: Negative for chills, diaphoresis, fatigue, fever and unexpected weight change. Respiratory: Negative for cough, chest tightness, shortness of breath and wheezing. Cardiovascular: Positive for leg swelling. Negative for chest pain and palpitations. Gastrointestinal: Negative. Musculoskeletal: Positive for myalgias and neck pain. Skin: Negative. Objective Physical Exam Vitals and nursing note reviewed. Constitutional: General: She is not in acute distress. Appearance: Normal appearance. She is not ill-appearing. HENT: Head: Normocephalic and atraumatic. Neck: Vascular: No carotid bruit. Cardiovascular: Rate and Rhythm: Normal rate and regular rhythm. Pulses: Radial pulses are 1+ on the right side and 2+ on the left side. Heart sounds: Normal heart sounds. Pulmonary: Effort: Pulmonary effort is normal. Breath sounds: Normal breath sounds. Musculoskeletal: Cervical back: Normal range of motion and neck supple. Right lower leg: Edema present. Left lower leg: Edema present. Comments: Generalized non pitting edema Lymphadenopathy: Cervical: No cervical adenopathy. Skin: General: Skin is warm and dry. Capillary Refill: Capillary refill takes less than 2 seconds. Findings: No erythema or rash. Neurological: General: No focal deficit present. Mental Status: She is alert and oriented to person, place, and time. Psychiatric: Mood and Affect: Mood normal. Behavior: Behavior normal. Assessment/Plan Continue current HTN regimen and diuretic of chlorthalidone. Recommend compression stockings and elevate legs when resting. Continue to monitor BP and HR. CTA carotid ordered to check neck pain and possible embolism. Muscle relaxer sent in for neck pain/cramps. Keep scheduled FU. Margaret was seen today for hypertension. Diagnoses and all orders for this visit: Neck pain - CT angiogram carotid; Future Muscle spasm - baclofen (LIORESAL) 10 mg tablet; Take 1 tablet (10 mg total) by mouth 3 (three) times a day for 7 days. History of DVT (deep vein thrombosis) - CT angiogram carotid; Future MTHFR (methylene THF reductase) deficiency and homocystinuria (CMS-HCC) - CT angiogram carotid; Future History of pulmonary embolism - CT angiogram carotid; Future Diaphoresis - CT angiogram carotid; Future Numbness and tingling in both hands - CT angiogram carotid; Future CHERRI Pelaez 09/06/24 [id number] documented in this encounter [place] [id number] History of Present illness Narrative Venipuncture performed in the left arm. Patient had no adverse reactions. documented in this encounter [facility] 08-08-2024 History of Present illness Narrative Subjective Patient ID: Margaret Prieto is a 33 y.o. female. HPI She would like to discuss medications. In May I placed Margaret on short course of lasix for increased leg edema after she was staying in the hospital helping to take care of her brother. She feels the medication was very helpful, and since she is having increased leg swelling, particularly to LLE, she would like to inquire about continuing this medication. No chest pain, no shortness of breath. ECHO from 12/2023- Left ventricle appears normal in size. There is mild concentric increased wall thickness/hypertrophy. Systolic function is normal with an ejection fraction of 60-65%. No obvious regional wall motion abnormalities. Normal diastolic function is present. The following portions of the patient's history were reviewed and updated as appropriate: allergies, current medications, past family history, past medical history, past social history, past surgical history, problem list, and medication reconciliation was completed including current medication and post discharge medication. Review of Systems Constitutional: Negative for chills, diaphoresis, fatigue, fever and unexpected weight change. Respiratory: Negative for cough, chest tightness, shortness of breath and wheezing. Cardiovascular: Positive for leg swelling. Negative for chest pain and palpitations. Gastrointestinal: Negative. Skin: Negative. Objective Physical Exam Vitals and nursing note reviewed. Constitutional: General: She is not in acute distress. Appearance: Normal appearance. She is not ill-appearing. HENT: Head: Normocephalic and atraumatic. Neck: Vascular: No carotid bruit. Cardiovascular: Rate and Rhythm: Normal rate and regular rhythm. Pulses: Normal pulses. Heart sounds: Normal heart sounds. Pulmonary: Effort: Pulmonary effort is normal. Breath sounds: Normal breath sounds. Musculoskeletal: Cervical back: Normal range of motion and neck supple. Right lower leg: No edema. Left lower le+ Edema present. Skin: General: Skin is warm and dry. Findings: No erythema or rash. Neurological: General: No focal deficit present. Mental Status: She is alert and oriented to person, place, and time. Psychiatric: Mood and Affect: Mood normal. Behavior: Behavior normal. Assessment/Plan Discussed with Margaret she is already on hydrochlorothiazide and spironolactone, I do not want to add lasix as well. However, we can make changes to diuretic and see if this helps. Change hydrochlorothiazide to chlorthalidone, and increase dosage. Discussed side effects. Monitor BP. Labs ordered to check labs in 2 weeks. Discussed we may need to repeat echo at one year if LLE edema continues. FU one month. Margaret was seen today for medication problem. Diagnoses and all orders for this visit: Primary hypertension - Basic Metabolic Panel; Future Leg edema, left Other orders - chlorthalidone (HYGROTON) 50 MG tablet; Take 1 tablet (50 mg total) by mouth daily. CHERRI Pelaez 08/11/24 0500 documented [facility] this [facility] Miscellaneous Notes Outpatient Behavioral Health Progress Note Start Time: 1115am Stop Time: 1200pm Minutes: 45 Type of session: individual Client Location: Home [...] that there are some limitations compared to [id number] evaluations. We elected to proceed. Problem Statement #1: Anxiety Goal: To decrease [...] of Session: Client presents with appropriate affect. The client reflected on her recent emotions surrounding the process of setting boundaries with family members. She expressed sadness about her brother s health struggles, yet acknowledged her current limitations in offering support beyond emotional presence. The therapist validated her commitment to prioritizing her own and her immediate family s emotional and physical needs. The client also shared the positive impact of her daily conversations with her cousin, which provide her with a safe space to process her feelings and memories. The therapist encouraged her to continue engaging in this healthy coping practice, as it offers meaningful support for her emotional well-being. Client states she is continuing to utilizing argelia painting as a stress reliever also. Client engaged appropriately throughout today's session, participating well throughout. Client appeared receptive to feedback and interventions used. Client continues to be motivated to meet goals. Goals worked on this session: To decrease anxiety Interventions Used: Behavioral/Cognitive Behavioral (CBT) Therapy and Acceptance and Commitment Therapy (ACT) to help client identify supports. help client identify healthy boundaries. help client process feelings and the events that caused them. help client process their past and how it affects their present. 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 Client Progress: improving as Client is utilizing healthy coping skills to help manage anxiety symptoms. MSE: Client denied current thoughts, plans, or intent to harm self or others. Affective: Predominant Mood: Pleasant and Calm Range of Affect: Congruent Behavioral: Appearance: Neat Movement/Behavior: Unremarkable Speech: Understandable Attention/Manner: Attentive, Cooperative, and Open Cognitive: Thought Process: Coherent and Goal-oriented Orientation: Person, Place, Time, and Event Memory: Adequate Judgment/Insight: Denies problems Diagnosis/problem addressed at this session: ICD-10-CM 1. Generalized anxiety disorder F41.1 Medication Compliant: Client has been compliant with all medications and agrees to talk with their provider about any concerns or questions regarding their prescribed medications. Plan: Client progressing with goals and will be seen for a follow up session in 1 month. Electronic Signature: ELLIOT Baxter documented in this encounter [facility] 07-15-2024 Progress note Formatting of t his note is different from the original. Outpatient Behavioral Health Progress Note Start Time: 1115am Stop Time: 1200pm Minutes: 45 Type of session: individual Client Location: Home [...] that there are some limitations compared to [id number] evaluations. We elected to proceed. Problem Statement #1: Anxiety Goal: To decrease [...] of Session: Client presents with appropriate affect. The client reflected on her recent emotions surrounding the process of setting boundaries with family members. She expressed sadness about her brother s health struggles, yet acknowledged her current limitations in offering support beyond emotional presence. The therapist validated her commitment to prioritizing her own and her immediate family s emotional and physical needs. The client also shared the positive impact of her daily conversations with her cousin, which provide her with a safe space to process her feelings and memories. The therapist encouraged her to continue engaging in this healthy coping practice, as it offers meaningful support for her emotional well-being. Client states she is continuing to utilizing argelia painting as a stress reliever also. Client engaged appropriately throughout today's session, participating well throughout. Client appeared receptive to feedback and interventions used. Client continues to be motivated to meet goals. Goals worked on this session: To decrease anxiety Interventions Used: Behavioral/Cognitive Behavioral (CBT) Therapy and Acceptance and Commitment Therapy (ACT) to help client identify supports. help client identify healthy boundaries. help client process feelings and the events that caused them. help client process their past and how it affects their present. 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 Client Progress: improving as Client is utilizing healthy coping skills to help manage anxiety symptoms. MSE: Client denied current thoughts, plans, or intent to harm self or others. Affective: Predominant Mood: Pleasant and Calm Range of Affect: Congruent Behavioral: Appearance: Neat Movement/Behavior: Unremarkable Speech: Understandable Attention/Manner: Attentive, Cooperative, and Open Cognitive: Thought Process: Coherent and Goal-oriented Orientation: Person, Place, Time, and Event Memory: Adequate Judgment/Insight: Denies problems Diagnosis/problem addressed at this session: ICD-10-CM 1. Generalized anxiety disorder F41.1 Medication Compliant: Client has been compliant with all medications and agrees to talk with their provider about any concerns or questions regarding their prescribed medications. Plan: Client progressing with goals and will be seen for a follow up session in 1 month. Electronic Signature: ELLIOT Baxter [facility] 07-10-2024 Miscellaneous Notes Progress notes: Chief Complaint: Bipolar Disorder, PTSD,ADHD, KATHARINE HPI: Client presents for a medication management apt via tele psychiatry. Client is pleasant and friendly during the session. Client states, my brother is actually walking. I have been sleeping better and still will have some PTSD dreams. This time of year sucks because this is my moms holiday. I am in pain but it is more tolerable now. Client is still receiving therapy services through [facility]. Client rates depression at a 5/10 with 10 being the worst. Client rates anxiety at a 4/10 with 10 being the worst. Client endorses medication adherence and denies any [...] kept locked up. N/A Upcoming f/u apt: 9 weeks Treatment Plan/Recommendations: Dx: Bipolar Disorder, PTSD, KATHARINE, ADHD Cymbalta 30mg PO Daily Abilify 10mg PO Daily Vistaril 50mg PO TID PRN Increase Prazosin 4mg PO QHS Strattera 60mg PO Daily Future recommendations:Trileptal The client and I reviewed several treatment [...] Visit via Real-time Synchronous Audiovisual Provider Location: [address] [id number] Patient Location: Patient's home Video [...] that there are some limitations compared to [id number] evaluations. The patient consented to the presence of additional virtual and/or in-person participants. We elected to proceed. Goals, Objectives & Interventions Goals, Objectives, Interventions Yashira Mi APRN-NURSE 07/10/24 0943 documented in this encounter [facility] 07-10-2024 Progress note Formatting of t his note is different from the original. Progress notes: Chief Complaint: Bipolar Disorder, PTSD,ADHD, KATHARINE HPI: Client presents for a medication management apt via tele psychiatry. Client is pleasant and friendly during the session. Client states, my brother is actually walking. I have been sleeping better and still will have some PTSD dreams. This time of year sucks because this is my moms holiday. I am in pain but it is more tolerable now. Client is still receiving therapy services through [facility]. Client rates depression at a 5/10 with 10 being the worst. Client rates anxiety at a 4/10 with 10 being the worst. Client endorses medication adherence and denies any [...] kept locked up. N/A Upcoming f/u apt: 9 weeks Treatment Plan/Recommendations: Dx: Bipolar Disorder, PTSD, KATHARINE, ADHD Cymbalta 30mg PO Daily Abilify 10mg PO Daily Vistaril 50mg PO TID PRN Increase Prazosin 4mg PO QHS Strattera 60mg PO Daily Future recommendations:Trileptal The client and I reviewed several treatment [...] Visit via Real-time Synchronous Audiovisual Provider Location: [address] [id number] Patient Location: Patient's home Video [...] that there are some limitations compared to [id number] evaluations. The patient consented to the presence of additional virtual and/or in-person participants. We elected to proceed. Goals, Objectives & Interventions Goals, Objectives, Interventions CHERRI Martinez 07/10/24 0943 [facility] 06-29-2024 Miscellaneous Notes Refill Request recieved via Pharmacy Medication name, dosage & directions: Aripiprazole (Abilify) 10 mg tablet Take 1 tablet PO in the morning. Duloxetine (Cymbalta) 30 mg capsule Take 1 capsule PO every morning. [facility] Any side effects?: No Currently or ?: No Last appointment: 06/05/2024 Per Note RTC: 4 weeks Next appointment scheduled: 07/02/2024 Last fill date: Abilify 05/31/2024 Cymbalta 06/02/2024 If Controlled: Oarrs completed? n/a documented in this encounter [facility] 06-29-2024 Progress note Formatting of t his note might be different from the original. Refill Request recieved via Pharmacy Medication name, dosage & directions: Aripiprazole (Abilify) 10 mg tablet Take 1 tablet PO in the morning. Duloxetine (Cymbalta) 30 mg capsule Take 1 capsule PO every morning. [facility]acy: [facility] Any side effects?: No Currently or ?: No Last appointment: 06/05/2024 Per Note RTC: 4 weeks Next appointment scheduled: 07/02/2024 Last fill date: Abilify 05/31/2024 Cymbalta 06/02/2024 If Controlled: Oarrs completed? n/a [facility] History of Present illness Narrative Subjective Patient ID: Margaret Prieto is a 33 y.o. female. 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 Last labs 03/27/2024 TSH 7.10. I started her on levothyroxine 50 mcg, I ordered repeat labs to be completed prior to today's visit, however she did not complete. She reports she has been getting dizzy and has been having nasusea with the dizziness. She reports it as the room is spinning . She reports this has been ongoing for a few weeks. She reports it almost feels like a panic attack . She also feels that her ears are plugged. She has been taking her ferrous sulfate once daily and Magnesium daily which has helped with her muscle and leg cramps. Headaches, neurotec is helpful. She reports she has been having a fever, on/off today. She reports it is due to her boil, dermatology restarted the minocycline. The following portions of the patient's history were reviewed and updated as appropriate: allergies, current medications, past family history, past medical history, past social history, past surgical history, problem list, and medication reconciliation was completed including current medication and post discharge medication. Review of Systems Constitutional: Positive for chills, fatigue and fever. Negative for diaphoresis and unexpected weight change. Respiratory: Negative for cough, chest tightness, shortness of breath and wheezing. Cardiovascular: Negative for chest pain, palpitations and leg swelling. Gastrointestinal: Negative. Skin: Negative. Neurological: Positive for dizziness and headaches. Objective Physical Exam Vitals and nursing note [...] clear. Eyes: Extraocular Movements: Extraocular movements intact. Pupils: Pupils are equal, round, and reactive to light. Neck: Vascular: No carotid bruit. Cardiovascular: Rate and Rhythm: Normal rate and regular rhythm. Pulses: Normal pulses. Heart sounds: Normal heart sounds. No murmur heard. Pulmonary: Effort: Pulmonary effort is normal. No respiratory distress. Breath sounds: Normal breath sounds. No wheezing, rhonchi or rales. Chest: Chest wall: No tenderness. Abdominal: General: Bowel sounds are normal. Palpations: Abdomen is soft. Musculoskeletal: General: Normal range of motion. Cervical back: Normal range of motion and neck supple. No rigidity or tenderness. Right lower leg: No edema. Left lower leg: No edema. Lymphadenopathy: Cervical: No cervical adenopathy. Skin: General: Skin is warm and dry. Capillary Refill: Capillary refill takes less than 2 seconds. Findings: No rash. Neurological: General: No focal deficit present. Mental Status: She is alert and oriented to person, place, and time. Motor: No weakness. Psychiatric: Mood and Affect: Mood normal. Behavior: Behavior normal. Assessment/Plan Ensure to stay hydrated. Increase fluids to at least 64 ounces a day, fluids with electrolytes would be preferred. I will order labs to ensure no electrolyte imbalance. Start daily allergy medication for dizziness and ears feeling plugged , also start flonase. Meclizine PRN for vertrigo. FU 3 months we will recheck TSH at that time. Margaret was seen today for follow-up. 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 - fluticasone propionate (FLONASE) 50 mcg/actuation nasal spray; Administer 1 spray into each nostril in the morning. - meclizine (ANTIVERT) 25 mg tablet; Chew 1 tablet (25 mg total) and swallow 3 (three) times a day as needed for dizziness. CHERRI Pelaez 06/29/242010 Venipuncture performed in the right arm. No adverse reactions. documented in this encounter [facility] 06-21-2024 Miscellaneous Notes Refill Request recieved via Pharmacy Medication name, dosage & directions: Hydroxyzine (Vistaril) 50 mg capsule Take 1 capsule PO TID PRN for anxiety. [facility]acy: [facility] Any side effects?: No Currently or ?: No Last appointment: 06/05/2024 Per Note RTC: 4 weeks Next appointment scheduled: 07/02/2024 Last fill date: 05/07/2024 If Controlled: Oarrs completed? n/a [facility] Progress note Formatting of t his note might be different from the original. Refill Request recieved via Pharmacy Medication name, dosage & directions: Hydroxyzine (Vistaril) 50 mg capsule Take 1 capsule PO TID PRN for anxiety. [facility]acy: [facility] Any side effects?: No Currently or ?: No Last appointment: 06/05/2024 Per Note RTC: 4 weeks Next appointment scheduled: 07/02/2024 Last fill date: 05/07/2024 If Controlled: Oarrs completed? n/a [facility] 06-13-2024 Miscellaneous Notes Outpatient Behavioral Health Progress Note Start Time: 1115am Stop Time: 1200pm Minutes: 45 Type of session: individual Client Location: Home [...] that there are some limitations compared to [id number] evaluations. We elected to proceed. Problem Statement #1: Anxiety Goal: To decrease [...] appointment and identify feelings they have experienced. Client reported that mood had been stable since last session. They denied experiencing any significant heightened mood symptoms since last session, stating overall feeling good. Client reports recent medication (Prazon) increase has helped to decrease nightmares, which is allowing for more restful sleep. Therapist and client discussed healthy boundaries, coping strategies, and self-care to promote emotional wellbeing.Client engaged appropriately throughout today's session, participating well throughout. Client appeared receptive to feedback and interventions used. Client continues to be motivated to meet goals. Goals worked on this session: To decrease anxiety Interventions Used: Behavioral/Cognitive Behavioral (CBT) Therapy and Acceptance and Commitment Therapy (ACT) to provide client with a safe space to express and process emotions. provide active listening, mirroring and validation. help client identify healthy boundaries. help client process their past and how it affects their present. help client to examine whether their behaviors are aligned with their skilled nursing goals. Client Progress: improving as Client is utilizing healthy coping skills to help manage anxiety symptoms. MSE: Client denied current thoughts, plans, or intent to harm self or others. Affective: Predominant Mood: Pleasant and Calm Range of Affect: Congruent Behavioral: Appearance: Neat Movement/Behavior: Unremarkable Speech: Understandable Attention/Manner: Attentive, Cooperative, and Open Cognitive: Thought Process: Coherent and Goal-oriented Orientation: Person, Place, Time, and Event Memory: Adequate Judgment/Insight: Denies problems Diagnosis/problem addressed at this session: ICD-10-CM 1. Post traumatic stress disorder (PTSD) F43.10 2. Generalized anxiety disorder F41.1 Medication Compliant: Client has been compliant with all medications and agrees to talk with their provider about any concerns or questions regarding their prescribed medications. Plan: Client progressing with goals and will be seen for a follow up session in 1 month. Electronic Signature: ELLIOT Baxter documented in this encounter [facility] 06-13-2024 Progress note Formatting of t his note is different from the original. Outpatient Behavioral Health Progress Note Start Time: 1115am Stop Time: 1200pm Minutes: 45 Type of session: individual Client Location: Home [...] that there are some limitations compared to typi-jj-cowt evaluations. We elected to proceed. Problem Statement #1: Anxiety Goal: To decrease [...] appointment and identify feelings they have experienced. Client reported that mood had been stable since last session. They denied experiencing any significant heightened mood symptoms since last session, stating overall feeling good. Client reports recent medication (Prazon) increase has helped to decrease nightmares, which is allowing for more restful sleep. Therapist and client discussed healthy boundaries, coping strategies, and self-care to promote emotional wellbeing.Client engaged appropriately throughout today's session, participating well throughout. Client appeared receptive to feedback and interventions used. Client continues to be motivated to meet goals. Goals worked on this session: To decrease anxiety Interventions Used: Behavioral/Cognitive Behavioral (CBT) Therapy and Acceptance and Commitment Therapy (ACT) to provide client with a safe space to express and process emotions. provide active listening, mirroring and validation. help client identify healthy boundaries. help client process their past and how it affects their present. 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 Client Progress: improving as Client is utilizing healthy coping skills to help manage anxiety symptoms. MSE: Client denied current thoughts, plans, or intent to harm self or others. Affective: Predominant Mood: Pleasant and Calm Range of Affect: Congruent Behavioral: Appearance: Neat Movement/Behavior: Unremarkable Speech: Understandable Attention/Manner: Attentive, Cooperative, and Open Cognitive: Thought Process: Coherent and Goal-oriented Orientation: Person, Place, Time, and Event Memory: Adequate Judgment/Insight: Denies problems Diagnosis/problem addressed at this session: ICD-10-CM 1. Post traumatic stress disorder (PTSD) F43.10 2. Generalized anxiety disorder F41.1 Medication Compliant: Client has been compliant with all medications and agrees to talk with their provider about any concerns or questions regarding their prescribed medications. Plan: Client progressing with goals and will be seen for a follow up session in 1 month. Electronic Signature: ELLIOT Baxter [facility] 06-07-2024 Miscellaneous Notes Refill Request recieved via Pharmacy Medication name, dosage & directions: Atomoxetine HCL (Strattera) 60 mg capsule Take 1 capsule PO every morning. Pharmacy: [facility] Any side effects?: No Currently or ?: No Last appointment: 06/05/2024 Per Note RTC: 4 weeks Next appointment scheduled: 07/02/2024 Last fill date: 05/07/2024 If Controlled: Oarrs completed? n/a documented in this encounter [facility] 06-07-2024 Progress note Formatting of t his note might be different from the original. Refill Request recieved via Pharmacy Medication name, dosage & directions: Atomoxetine HCL (Strattera) 60 mg capsule Take 1 capsule PO every morning. [facility]: [facility] Any side effects?: No Currently or ?: No Last appointment: 06/05/2024 Per Note RTC: 4 weeks Next appointment scheduled: 07/02/2024 Last fill date: 05/07/2024 If Controlled: Oarrs completed? n/a [facility] 06-05-2024 Miscellaneous Notes Progress notes: Chief Complaint: Bipolar Disorder, PTSD,ADHD, KATHARINE HPI: Client presents for a medication management apt via tele psychiatry. Client is pleasant and friendly during the session. Client states, my brother had two strokes and I went up to see him, my cousin was in a different hospital and my uncle Maycol had a bowl obstruction. I have been peeing blood for about a month now. They want me to get a urine and stool sample. It has been a month now and tired of peeing on myself. Client reports she consistently has nightmares. She states, I am having nightmares really bad. I am waking up around 4 or 5 and I am waking screaming from some real things that have happened to me. Client reports she is having nightmares 3-4 times per week. Client rates depression at a 5/10 with 10 being the worst. Client rates anxiety at a 6/10 with 10 being the worst. Client endorses medication adherence and denies any side effects at this time. Client denies any psychosis, obsessions or compulsions. Client denies any s/s of decompensation. Client denies any current SI/HI, plans or intent. Client denies any AH/VH. Client does not appear to be in any acute distress. Client is requesting medication adjustments for mood symptoms. Brief supportive [...] kept locked up. N/A Upcoming f/u apt: 4 weeks Treatment Plan/Recommendations: Dx: Bipolar Disorder, PTSD, KATHARINE, ADHD Cymbalta 30mg PO Daily Abilify 10mg PO Daily Vistaril 50mg PO TID PRN Increase Prazosin 4mg PO QHS Strattera 60mg PO Daily Future recommendations:Trileptal The client and I reviewed several treatment options to address his/her symptoms. We discussed the risks/benefits and side effects of medications. The patient was explained their possible diagnosis and treatment options including pharmacological and non pharmacological. Healthy lifestyle is encouraged. It was mutually agreed that the client adjust the current medication regimen. Advised patient to call 911 or go to nearest Emergency Department in case of emergency - verbally acknowledged. Client endorses medication adherence and denies any side effects at this time. Video Visit via Real-time Synchronous Audiovisual Provider Location: [address] [address] Patient Location: Patient's home Video [...] that there are some limitations compared to emev-px-fqgy evaluations. The patient consented to the presence of additional virtual and/or in-person participants. We elected to proceed. Goals, Objectives & Interventions Goals, Objectives, Interventions CHERRI Martinez 06/05/24 1216 documented in this encounter [facility] 06-05-2024 Progress note Formatting of t his note is different from the original. Progress notes: Chief Complaint: Bipolar Disorder, PTSD,ADHD, KATHARINE HPI: Client presents for a medication management apt via tele psychiatry. Client is pleasant and friendly during the session. Client states, my brother had two strokes and I went up to see him, my cousin was in a different hospital and my uncle Maycol had a bowl obstruction. I have been peeing blood for about a month now. They want me to get a urine and stool sample. It has been a month now and tired of peeing on myself. Client reports she consistently has nightmares. She states, I am having nightmares really bad. I am waking up around 4 or 5 and I am waking screaming from some real things that have happened to me. Client reports she is having nightmares 3-4 times per week. Client rates depression at a 5/10 with 10 being the worst. Client rates anxiety at a 6/10 with 10 being the worst. Client endorses medication adherence and denies any side effects at this time. Client denies any psychosis, obsessions or compulsions. Client denies any s/s of decompensation. Client denies any current SI/HI, plans or intent. Client denies any AH/VH. Client does not appear to be in any acute distress. Client is requesting medication adjustments for mood symptoms. Brief supportive [...] kept locked up. N/A Upcoming f/u apt: 4 weeks Treatment Plan/Recommendations: Dx: Bipolar Disorder, PTSD, KATHARINE, ADHD Cymbalta 30mg PO Daily Abilify 10mg PO Daily Vistaril 50mg PO TID PRN Increase Prazosin 4mg PO QHS Strattera 60mg PO Daily Future recommendations:Trileptal The client and I reviewed several treatment options to address his/her symptoms. We discussed the risks/benefits and side effects of medications. The patient was explained their possible diagnosis and treatment options including pharmacological and non pharmacological. Healthy lifestyle is encouraged. It was mutually agreed that the client adjust the current medication regimen. Advised patient to call 911 or go to nearest Emergency Department in case of emergency - verbally acknowledged. Client endorses medication adherence and denies any side effects at this time. Video Visit via Real-time Synchronous Audiovisual Provider Location: [facility] [address] [facility] [id number] Patient Location: Patient's home Video Visit [...] that there are some limitations compared to qauk-av-xagq evaluations. The patient consented to the presence of additional virtual and/or in-person participants. We elected to proceed. Goals, Objectives & Interventions Goals, Objectives, Interventions CHERRI Martinez 06/05/24 1216 [facility] 04-22-2024 Telephone encounter Note Unable To Reach Patient Patient appears on the [facility] report for a PHQ-9 score of 23 and a NCCN score of 10. SW called Patient to follow up. Her VM was full, no message could be left. JUANITA James [facility] 04-22-2024 Miscellaneous Notes Unable To Reach Patient Patient appears on the [facility] report for a PHQ-9 score of 23 and a NCCN score of 10. SW called Patient to follow up. Her VM was full, no message could be left. JUANITA James documented in this encounter [facility] 04-18-2024 Instructions Sharif Joseph MD - 04/18/2024 11:44 AM EDT RTC in 6 months Labs same day Continue Arixtra 10mg daily Continue Foltx or folic acid supplements Continue iron tablets (try 2 days in a row then 1 day off and then 2 days again. (4 days each week) documented in this encounter [facility] 04-18-2024 History of Present illness Narrative Images from the original note were not included. NAME: Margaret Prieto CLINIC NO.: [id number] DATE OF SERVICE: April 18, 2024 (Jonelle) Some elements in this clinic note that are critical to medical decision making have been carefully reviewed and included from a prior clinic note dated: December 20, 2023 (Jonelle) Referring Provider: Harley Thacker APRN-DAVID [...] including ECHO from 11/13/2022 and 11/23/2023 from [facility] which states -Echogenic density seen wihin [...] to consider starting Humira for Hiradenitis from [facility]. 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 Sharif Joseph MD, CPE Hematology and Oncology Services Provided at: [place], [place] Scribe Attestation: This note was scribed [...] under my direction. CC: Harley Thacker [address] [address] documented in this encounter [facility] 04-18-2024 Note HNO ID: [id number] Author: SHARIF JOSEPH MD Service: ? Author Type: Physician Type: Progress Notes Filed: 04/19/2024 14:40 Note Text: NAME: Margaret Prieto [facility] NO.: [id number] DATE OF SERVICE: April 18, 2024 (Jonelle) Some elements in this clinic note that are critical to medical decision making have been carefully reviewed and included from a prior clinic note dated: December 20, 2023 (Jonelle) Referring Provider: Harley Thacker APRN-NURSE Additional Clinicians involved in Maragret Prieto's care: DIAGNOSIS: Hypercoag state. ASSESSMENT: Pulmonary [...] with heparin. Updated Visit, December 20, 2023: aMrgaret returns today. EGD on 12/09 revealed benign [...] taking oral medicati (more content not included)... [facility] 04-10-2024 Telephone encounter Note Letter reviewed, signed and faxed to Dr Dickinson's office Bello Sue RN [facility] 04-10-2024 Miscellaneous Notes Letter reviewed, signed and [...] Bello Sue RN documented in this encounter [facility] 04-08-2024 Telephone encounter Note Letter of medical [...] and sign, if agreeable. Bello Sue RN [facility] 04-02-2024 Telephone encounter Note Leonard: Please review and advise (Pt lab/OV 04/18/24) Bello Sue RN [facility] 04-02-2024 Miscellaneous Notes Leonard: Please review and [...] Also i recently had labs done at [facility] and [facility] in [place] my thyroid is really off they did an ultrasound of my thyroid as well that hasnt come back yet. Top 2 are [facility] the rest is [facility] [place]: Please obtain labs ([facility]) and US ([facility]) for Leonard to review. Bello Sue RN documented in this encounter [facility] 04-02-2024 Telephone encounter Note Records are in. [facility] records pulled through Care Everywhere. [facility] 04-02-2024 Telephone encounter Note So i was talking to someone who has my disorder hs and she told me that there are several people who have this disease and they test positive for mgus should i be tested she was tested through her oncologist. Also i recently [facility] [place] my thyroid is really off they did an ultrasound of my thyroid as well that hasnt come back yet. Top 2 are [facility] the rest is [facility] [place]: Please obtain labs ([facility]) and US ([facility]) for Leonard to review. Bello Sue RN [facility] 12-20-2023 Instructions Harley Toro - 12/20/2023 10:37 AM EDT RTC in 3 months Labs same day Start Arixtra 10mg daily Resume Foltx Resume iron tablets documented in this encounter [facility] 12-20-2023 History of Present illness Narrative Images from the original note were not included. NAME: Margaret Prieto CLINIC NO.: [id number] DATE OF SERVICE: December 20, 2023 (vt) Some elements in this clinic note that are critical to medical decision making have been carefully reviewed and included from a prior clinic note dated: November 29, 2023 (Jonelle) Referring Provider: Harley Thacker APRN-NURSE Additional Clinicians involved in Margaret Prieto's care: [...] including ECHO from 11/13/2022 and 11/23/2023 from [facility] which states -Echogenic density seen wihin [...] to consider starting Humira for Hiradenitis from [facility]. A CTA of the chest from [...] V deficiency (HCC) GERD (gastroesophageal reflux disease) Silvia's disease History of DVT (deep vein thrombosis) [...] which included preparing to see the patient, squl-go-vumm patient care, completing clinical documentation, obtaining and/or reviewing separately obtained history, performing a medically appropriate examination, counseling and educating the patient/family/caregiver, ordering medications, tests, or procedures, independently interpreting results (not separately reported), communicating results to the patient/family/caregiver, and care coordination (not separately reported). Sharif Joseph MD, CPE Hematology and Oncology Services Provided at: [place], [place] Scribe Attestation: This note was scribed [...] under my direction. CC: Harley Thacker [address] [address] documented in this encounter [facility] 12-20-2023 Note HNO ID: [id number] Author: SHARIF JOSEPH MD Service: ? Author Type: Physician Type: Progress Notes Filed: 12/22/2023 06:44 Note Text: NAME: Margaret Prieot [facility] NO.: [id number] DATE OF SERVICE: December 20, 2023 (Jonelle) Some elements in this clinic note that are critical to medical decision making have been carefully reviewed and included from a prior clinic note dated: November 29, 2023 (Jonelle) Referring Provider: Harley Thacker, 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NURSE Additional Clinicians involved in Margaret Prieto's care: [...] including ECHO from 11/13/2022 and 11/23/2023 from [facility] which states -Echogenic density seen wihin the right atrium, likely represents a prominent Eustachian valve (more content not included)... [facility] 12-07-2023 History of Present illness Narrative [...] by cardiology and hematology. She followed with [facility] hematology and reports although she was recommended [...] nursing note reviewed. Exam conducted with a postulant present (susana BARRIOS). Constitutional: General: She is [...] Future - High risk HPV w/yoshi; Future Silvia's disease - TSH with Reflex; Future Controlled type 2 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 complication, without long-term current use of insulin ([facility]) - Hemoglobin A1c; Future - Diabetic foot exam performed Encounter for Papanicolaou smear for cervical cancer screening - Pap Smear; Future - High risk HPV w/yoshi; Future Hidradenitis suppurativa CHERRI Pelaez 12/07/23 1212 [facility] Miscellaneous Notes Preoperative Education Checklist- General Surgery date: 12/10/23 Surgery time: 1230 Arrival time: 1030 1. Bring a photo ID and your insurance card with you the day of surgery. You will check in at the main lobby of the [facility]- registration desk is straight ahead as soon as you walk in. Tell them you are here for surgery. 2. If you have a Living Will/Durable Power of Parking Lot Signaler for Health Care that is not on [...] after you have bathed. 5. NO nail egyptian/acrylic on at least one finger. If you are having a hand, wrist or foot surgery then all nail egyptian and artificial/acrylic nails must be removed from [...] please call the Preadmission Testing office at [phone], Mon.-Fri. 7 a.m.-3 p.m. Leave a voicemail if needed. Pre-Surgery Instructions: Medication Instructions esomeprazole (NexIUM) 20 mg packet Take last dose day before procedure melatonin 10 mg tablet Take last dose day before procedure documented in this encounter [facility] 12-05-2023 Nurse Note Preoperative Education Checklist- General Surgery date: 12/10/23 Surgery time: 1230 Arrival time: 1030 1. Bring a photo ID and your insurance card with you the day of surgery. You will check in at the main lobby of the [facility]- registration desk is straight ahead as soon as you walk in. Tell them you are here for surgery. 2. If you have a Living Will/Durable Power of Parking Lot Signaler for Health Care that is not on [...] after you have bathed. 5. NO nail egyptian/acrylic on at least one finger. If you are having a hand, wrist or foot surgery then all nail egyptian and artificial/acrylic nails must be removed from [...] please call the Preadmission Testing office at [phone], Mon.-Fri. 7 a.m.-3 p.m. Leave a voicemail if needed. Pre-Surgery Instructions: Medication Instructions esomeprazole (NexIUM) 20 mg packet Take last dose day before procedure melatonin 10 mg tablet Take last dose day before procedure [facility]23 Miscellaneous Notes I called Margaret but couldn't leave a voicemail - it's full. I called her emergency contact and left a message to contact her to call me to schedule her EGD. The medical clearance was received by cardiac / Dr. Mittal. Margaret returned by call & was scheduled on 12/10/23 for an EGD. [facility] 12-03-2023 Telephone encounter Note I called Margaret but couldn't leave a voicemail - it's full. I called her emergency contact and left a message to contact her to call me to schedule her EGD. The medical clearance was received by cardiac / Dr. Mittal. [facility] 12-03-2023 Telephone encounter Note Margaret returned by call & was scheduled on 12/10/23 for an EGD. [facility] 11-29-2023 Instructions Harley Toro - 11/29/2023 11:51 AM EDT Labs today RTC after endoscopy which I agree is appropriate at this time, especially while she is off of blood thinners Clear from my perspective to proceed with endoscopy with Dr. Mejia At return, repeat labs and will discuss resuming Foltx and resuming anticoagulation (will consider Arixtra 10mg daily) documented in this encounter [facility] 11-29-2023 History of Present illness Narrative Images from the original note were not included. NAME: Margaret Prieto [facility] NO.: [id number] DATE OF SERVICE: November 29, 2023 (Abhyankar) [...] including ECHO from 11/13/2022 and 11/23/2023 from [facility] which states -Echogenic density seen wihin [...] to consider starting Humira for Hiradenitis from [facility]. A CTA of the chest from [...] Take 25 mg by mouth once daily. Y25-rdutvaderktw calcium-B6 (FOLTX) 2-1.13-25 mg tab Take 1 [...] V deficiency (HCC) GERD (gastroesophageal reflux disease) Silvia's disease History of DVT (deep vein thrombosis) [...] which included preparing to see the patient, dopt-fz-khpo patient care, completing clinical documentation, obtaining and/or reviewing separately obtained history, performing a medically appropriate examination, counseling and educating the patient/family/caregiver, ordering medications, tests, or procedures, independently interpreting results (not separately reported), communicating results to the patient/family/caregiver, and care coordination (not separately reported). Sharif Joseph MD, CPE Hematology and Oncology Services Provided at: [place], [place] Scribe Attestation: This note was scribed [...] under my direction. CC: Harley Thacker [address] [address] documented in this encounter [facility] 11-29-2023 Note HNO ID: [id number] Author: SHARIF JOSEPH MD Service: ? Author Type: Physician Type: Progress Notes Filed: 12/05/2023 09:50 Note Text: NAME: Margaret Prieto [facility] NO.: [id number] DATE OF SERVICE: November 29, 2023 (Jonelle) [...] including ECHO from 11/13/2022 and 11/23/2023 from [facility] which states -Echogenic density seen wihin [...] cardiology for hx (more content not included)... [facility] 03-27-2024 History of Present illness Narrative Margaret Prieto Date of visit: 11/28/2023 Date of : 1990 Age: 33 y.o. 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[facility]) Pulmonary embolism ([facility]) Tachycardia Morbid obesity with BMI of 50.0-59.9, adult ([facility]) Gastroesophageal reflux disease Fatigue Essential hypertension Depression with anxiety History of diabetes mellitus, type II History of pulmonary embolism Familial hidradenitis suppurativa type 2 Factor V deficiency ([facility]) Vitamin D deficiency Vaginal odor Sore throat Bacterial vaginosis Upper respiratory infection, acute Bilateral otitis media with effusion Referral of patient History of thyroid nodule Hoarseness PE (pulmonary thromboembolism) ([facility]) Activated protein C resistance ([facility]) Anxiety Chronic pain COVID Diarrhea H/O partial thyroidectomy YULY (obstructive sleep apnea) Spondylosis Anxiety, generalized Depression Morbid obesity with BMI of 50.0-59.9, adult ([facility]) Factor 5 Leiden mutation, heterozygous ([facility]) Hidradenitis suppurativa Autoimmune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 chronic pain syndrome and chronic lower back pain and bilateral hips. The patient does have hidradenitis suppurativia and is currently under the care of Dr. Carlson in the [facility] in [place]. She has been having increasing amounts of boils which are causing a lot of pain. He has recently removed four wounds and has one that is deeply patched. It was found that she had a massive infection and is currently on Levaquin and Flagyl. Dr. Carlson has placed her on Rawlins 5/325 b.i.d. which is the same medication dose and frequency as our prescription. The patient has put our prescription on hold and is using the wound clinic only at this time. She is currently working with a senior staff psychologist in [place] and considering Remicade infusions. The patient does [...] which is beneficial. In addition to the Rawlins, she takes gabapentin 300 mg b.i.d., Baclofen [...] her to discuss with Dr. Carlson at [place] regarding continuing the Rawlins for her. We will see her in three months' time unless otherwise indicated, or if she prefers to stick with Dr. Carlson at this time, that is fine as well. The patient agrees with the plan of care. [facility] Signed and Approved by: ACE CERVANTES . 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 ([facility]) Bipolar 1 disorder ([facility]) Insulin resistance Other abnormal glucose History of prediabetes History of insulin resistance Gastroesophageal reflux disease, unspecified whether esophagitis present Nausea and vomiting, unspecified vomiting type Hidradenitis suppurativa Hidradenitis Migraine without aura and without status migrainosus, not intractable Prediabetes Other abnormal glucose documented in this encounter [facility] Diagnosis Generalized anxiety disorder- Primary Bipolar depression ([facility]) Bipolar I disorder, most recent episode (or current) depressed, unspecified Post traumatic stress disorder (PTSD) Attention deficit hyperactivity disorder, combined type Attention deficit disorder with hyperactivity documented in this encounter [facility]* Diagnosis Post traumatic stress disorder (PTSD)- Primary documented in this encounter [facility]* Diagnosis Gastroesophageal reflux disease, unspecified whether esophagitis present- Primary Nausea and vomiting, unspecified vomiting type Diarrhea, unspecified type Morbid obesity ([facility]) Morbid obesity Preop examination- Primary Unspecified pre-operative examination MTHFR (methylene THF reductase) deficiency and homocystinuria ([facility]) Disturbances of sulphur-bearing amino-acid metabolism BMI 60.0-69.9, adult ([facility]) Hypertension, unspecified type Blood clotting disorder ([facility]) Other and unspecified coagulation defects documented in this encounter [facility]* Diagnosis Preop examination- Primary Unspecified pre-operative examination MTHFR (methylene THF reductase) deficiency and homocystinuria ([facility]) Disturbances of sulphur-bearing amino-acid metabolism BMI 60.0-69.9, adult ([facility]) Hypertension, unspecified type Blood clotting disorder ([facility]) Other and unspecified coagulation defects Preop examination Unspecified pre-operative examination MTHFR (methylene THF reductase) deficiency and homocystinuria ([facility]) Disturbances of sulphur-bearing amino-acid metabolism BMI 60.0-69.9, adult ([facility]) Hypertension, unspecified type documented in this encounter [facility]* Diagnosis Preoperative clearance- Primary Unspecified pre-operative examination Abnormal echocardiogram Nonspecific (abnormal) findings on radiological and other examination of other intrathoracic organs History of DVT (deep vein thrombosis) History of pulmonary embolism Personal history of venous thrombosis and embolism Factor 5 Leiden mutation, heterozygous ([facility]) 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 ([facility]) Chest discomfort Other chest pain Shortness of breath Atrial mass Swelling, mass, or lump in chest Gastroesophageal reflux disease, unspecified whether esophagitis present documented in this encounter [facility]* Diagnosis Post traumatic stress disorder (PTSD)- Primary Generalized anxiety disorder documented in this encounter [facility]* Diagnosis Bipolar depression ([facility])- Primary Bipolar I disorder, most recent episode (or current) depressed, unspecified Post traumatic stress disorder (PTSD) Generalized anxiety disorder Attention deficit hyperactivity disorder, combined type Attention deficit disorder with hyperactivity [facility] Diagnosis Generalized anxiety disorder- Primary documented in this encounter [facility]* Diagnosis Essential hypertension- Primary Unspecified essential hypertension [facility] Diagnosis Factor V Leiden (HCC)- Primary Primary hypercoagulable state Gastrointestinal hemorrhage, unspecified gastrointestinal hemorrhage type Iron deficiency anemia, unspecified iron deficiency anemia type MTHFR mutation Disturbances of sulphur-bearing amino-acid metabolism Primary hypercoagulable state (HCC) Primary hypercoagulable state History of pulmonary embolism Personal history of pulmonary embolism [facility]* Diagnosis Wellness examination- Primary Silvia's disease Chronic lymphocytic thyroiditis Controlled type 2 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 complication, without long-term current use of insulin ([facility]) Encounter for Papanicolaou smear for cervical cancer screening Hidradenitis suppurativa Hidradenitis documented in this encounter [facility]* Diagnosis Primary hypercoagulable state (HCC)- Primary Primary hypercoagulable state Factor V Leiden (HCC) Primary hypercoagulable state MTHFR mutation Disturbances of sulphur-bearing amino-acid metabolism Iron deficiency anemia, unspecified iron deficiency anemia type 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 [facility] Diagnosis Primary hypercoagulable state (HCC)- Primary Primary hypercoagulable state MTHFR mutation Disturbances of sulphur-bearing amino-acid metabolism Factor V Leiden (HCC) Primary hypercoagulable state Iron deficiency anemia, unspecified iron deficiency anemia type [facility]* Diagnosis Bipolar depression ([facility])- Primary Bipolar I disorder, most recent episode (or current) depressed, unspecified Post traumatic stress disorder (PTSD) Generalized anxiety disorder Attention deficit hyperactivity disorder, combined type Attention deficit disorder with hyperactivity documented in this encounter [facility]* Diagnosis Neuropathy Mononeuritis of unspecified site documented in this encounter [facility]* Diagnosis Post traumatic stress disorder (PTSD)- Primary Generalized anxiety disorder documented in this encounter [facility]* Diagnosis Factor V Leiden (HCC) Primary hypercoagulable state MTHFR mutation Disturbances of sulphur-bearing amino-acid metabolism Primary hypercoagulable state (HCC) Primary hypercoagulable state [facility]* Diagnosis Silvia's disease- Primary Chronic lymphocytic thyroiditis Dizziness Dizziness and giddiness Hypothyroidism, unspecified type 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 documented in this encounter [facility]* Diagnosis Type 2 diabetes mellitus with other specified complication, unspecified whether skilled nursing insulin use ([facility])- Primary documented in this encounter [facility]* Diagnosis Bipolar depression ([facility])- Primary Bipolar I disorder, most recent episode (or current) depressed, unspecified Post traumatic stress disorder (PTSD) Generalized anxiety disorder Attention deficit hyperactivity disorder, combined type Attention deficit disorder with hyperactivity documented in this encounter [facility]* Diagnosis Generalized anxiety disorder- Primary documented in this encounter [facility]* Diagnosis Gastroesophageal reflux disease, unspecified whether esophagitis present documented in this encounter [facility]* Diagnosis Neuropathy Mononeuritis of unspecified site documented in this encounter [facility]* Diagnosis Primary hypertension- Primary Unspecified essential hypertension Leg edema, left documented in this encounter [facility]* Diagnosis Primary hypertension- Primary Unspecified essential hypertension documented in this encounter [facility]* Diagnosis Neck pain- Primary Cervicalgia Muscle spasm Spasm of muscle History of DVT (deep vein thrombosis) MTHFR (methylene THF reductase) deficiency and homocystinuria ([facility]) Disturbances of sulphur-bearing amino-acid metabolism History of pulmonary embolism Personal history of venous thrombosis and embolism Diaphoresis Generalized hyperhidrosis Numbness and tingling in both hands Neck pain Cervicalgia History of DVT (deep vein thrombosis) MTHFR (methylene THF reductase) deficiency and homocystinuria ([facility]) Disturbances of sulphur-bearing amino-acid metabolism History of pulmonary embolism Personal history of venous thrombosis and embolism Diaphoresis Generalized hyperhidrosis Numbness and tingling in both hands [facility] Diagnosis Bipolar depression ([facility])- Primary Bipolar I disorder, most recent episode (or current) depressed, unspecified Generalized anxiety disorder Post traumatic stress disorder (PTSD) Attention deficit hyperactivity disorder, combined type Attention deficit disorder with hyperactivity [facility] Diagnosis Post traumatic stress disorder (PTSD)- Primary Generalized anxiety disorder [facility] Attachments The following attachments cannot be sent through Care Everywhere. * Bleeding Precautions (Lao) documented in [facility]ructionsNot on [...] on file [facility] * Patient Instructions* Corine Best MA - 08/02/2020 1:49 PM EST YOU DO NOT HAVE LUPUS START CPAP LOSE WEIGHT TAKE VITAMIN D3 1,000 UNITS DAILY documented in this encounter History of Present Illness * Santiago Shell MD - 08/02/2020 1:32 PM EST I had the pleasure of seeing Margaret Prieto in consultation at [facility] [address] [place] [phone] for evaluation of lupus Isiah Terrell MD;Isiah Terrell MD HISTORY OF PRESENT ILLNESS: Margaret [...] really depressed about the situation. She gets Rawlins on a as needed basis for pain.. [...] Depression Edema External otitis Factor V deficiency ([facility]) Factor V Leiden mutation ([facility]) GERD (gastroesophageal reflux disease) Silvia's disease Hidradenitis Hidradenitis suppurativa History of DVT (deep vein thrombosis) Hypercholesteremia Hypertension Morbid obesity with BMI of 50.0-59.9, adult ([facility]) Osteoarthritis Palpitations Perineal abscess Pilonidal cyst Pneumonia Pulmonary embolism ([facility]) Sebaceous cyst Shortness of breath Skin ulcer of groin with fat layer exposed ([facility]) Tachycardia Thrombophilia ([facility]) Type 2 diabetes mellitus ([facility]) Past Surgical History: She Past Surgical History: [...] SSA SSB antibody negative Qureshi antibody negative, LITERACY TEACHER antibody negative, antihistone antibodies borderline positive at [...] Rheumatology Note: This dictation was generated using [employer] voice recognition software. Please excuse any grammatical [...] FoundDocuments on File Type Date Recorded Patient Event Coordinator Marketing And Sales Expl anation Advance Directives and Tiffanie g Will 08/02/2020 1:15 PM Advance Directive [...] Code 10/28/2021 10:56 PM 10/31/2021 1:52 PM Date Activated Date Inactivated Comments 11/23/2022 7:38 PM 11/27/2022 6:48 PM Date Activated Date Inactivated Comments 11/11/2022 7:59 PM 11/18/2022 12:49 PM Date Activated Date Inactivated Comments 10/28/2021 10:56 PM 10/31/2021 1:52 PM Date Activated Date Inactivated Comments 11/23/2022 7:38 PM 11/27/2022 6:48 PM Date Activated Date Inactivated Comments 11/11/2022 7:59 PM 11/18/2022 12:49 PM Date Activated Date Inactivated Comments 10/28/2021 10:56 PM 10/31/2021 1:52 PM Summary [...] aura and without status migrainosus, not intractable Uyen Thackerdenver [facility] [address] [place] [phone] Referral ID Status Reason Start Date Expiration Date Visits Re quested Visits Authorized [id number] Closed 1 1 Specialty Diagnoses / Procedures Referred By Contac t Referred To Contact Dermatology Diagnoses Hidradenitis suppurativa Uyen Thackerdenver [facility] [address] [place] [phone] Stephani Lucas MD [address], [address] [address] Referral ID Status Reason Start Date Expiration Date Visits Requested Visits Authorized [id number] Pending Review Specialty Services Required 10/08/2023 10/07/2024 1 1 Specialty Diagnoses / Procedures Referred By Contac t Referred To Contact General Surgery Diagnoses Gastroesophageal reflux disease, unspecified whether esophagitis present Nausea and vomiting, unspecified vomiting type Harley Thacker [facility] [address] [place] [phone] [facility] Grillis Stuart [address] [place] [address] Referral ID Status Reason Start Date Expiration Date Visits Requested Visits Authorized [id number] Authorized Specialty Services Required 10/08/2023 10/07/2024 1 1 Specialty Diagnoses / Procedures Referred By Contac t Referred To Contact Psychiatry Diagnoses Bipolar 1 disorder ([facility]) ThackerHarley hinton [facility] [address] [place] [phone] Yashira Mi, PLANER OPERATOR / [facility] [address] [facility] [address] [place] [address] Referral ID Status Reason Start Date Expiration Date Visits Requested Visits Authorized [id number] Pending Review Specialty Services Required 10/08/2023 10/07/2024 1 1 Specialty Diagnoses / Procedures Referred By Contac t Referred To Contact Medical Oncology / Hematology and Oncology Diagnoses History of pulmonary embolism History of DVT (deep vein thrombosis) Factor 5 Leiden mutation, heterozygous ([facility]) 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) Harley Thacker [facility] [address] [place] [phone] [facility] Hem Onc [address] [place] [phone] Referral ID Status Reason Start Date Expiration Date Visits Requested Visits Authorized [id number] Pending Review Specialty Services Required 10/08/2023 10/07/2024 1 1 Specialty Diagnoses / Procedures Referred By Contac t Referred To Contact Diagnoses Preop examination MTHFR (methylene THF reductase) deficiency and homocystinuria (CMS-HCC) BMI 60.0-69.9, adult (CMS-HCC) Hypertension, unspecified type Procedures ECG 12 lead Ktaya Denise MD [address] [place] [address] Referral ID Status Reason Start Date Expiration Date V isits Requested Visits Authorized [id number] Pending Review 11/07/2023 11/06/2024 1 1 Specialty Diagnoses / Procedures Referred By Contac t Referred To Contact Radiology Diagnoses Abnormal echocardiogram History of DVT (deep vein thrombosis) History of pulmonary embolism Factor 5 Leiden mutation, heterozygous (CMS-HCC) 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) Chest discomfort Shortness of breath Atrial mass Procedures CT angiogram chest Harley Thacker APRN-[facility] [address] [place] [phone] Referral ID Status Reason Start Date Expiration Date V isits Requested Visits Authorized [id number] Pending Review 11/14/2023 11/13/2024 1 1 Specialty Diagnoses / Procedures Referred By Contac t Referred To Contact Hematology Diagnoses History of DVT (deep vein thrombosis) History of pulmonary embolism Factor 5 Leiden mutation, heterozygous ([facility]) 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 ([facility]) Harlye Thacker APRN-NURSE [address] [place] [phone] Sharif Joseph MD [address] [place] [address] [place] [address] Referral ID Status Reason Start Date Expiration Date Visits Requested Visits Authorized [id number] Pending Review Specialty Services Required 11/14/2023 11/13/2024 1 1 Specialty Diagnoses / Procedures Referred By Contac t Referred To Contact Diagnoses Preoperative clearance Abnormal echocardiogram History of pulmonary embolism Atrial mass Procedures Echo complete W/O contrast Harley Thacker APRN-[facility] [address] [place] [phone] [facility] [address] [place] [address] Phone: [phone] Referral ID Status Reason Start Date Expiration Date V isits Requested Visits Authorized [id number] Pending Review 11/14/2023 11/13/2024 1 1 Additional Source Comments Reason for Visit (unrecogniz ed section and content) Reason Comments Consult LUPUS Status Reason Specialty Diagnoses / Procedures Referred By Contact Referred To Contact Closed Rheumatology Diagnoses Lupus (HCC) Isiah Terrell MD [address] [facility] [place] [address] [place] [address] Santiago Shell MD [address] [place], [place] [phone] Reason Comments Establish Care Reason Comments New Patient Specialty Diagnoses / Procedures Referred By Contac t Referred To Contact Psychiatry Diagnoses Bipolar 1 disorder ([facility]) Harley Thacker APRNNURSE [address] [place] [phone] Yashira Mi, 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NURSE [address] [facility] [address] [place] [address] Referral ID Status Reason Start Date Expiration Date Visits Requested Visits Authorized [id number] Pending Review Specialty Services Required 10/08/2023 10/07/2024 1 1 Reason Onset Date Comments Med Refill 10/23/2023 Reason Comments Heartburn GERD, vomiting, diar luis, blood in stool, nausea, referred by Harley Thacker CNP Specialty Diagnoses / Procedures Referred By Toyin arrieta Referred To Contact General Surgery Diagnoses Gastroesophageal reflux disease, unspecified whether esophagitis present Nausea and vomiting, unspecified vomiting type Harley Thacker, ANDREW-NURSE [address] [place], [place] [address] [address] [facility] Grillis Stuart [address] [facility] [address] Referral ID Status Reason Start Date Expiration Date V isits Requested Visits Authorized [id number] Closed Specialty Services Required 10/08/2023 10/07/2024 1 1 Reason Comments Pre-op Exam Surgery scheduled fo r November 19, 2023. Reason Comments PTSD Reason Comments Anxiety Reason Comments Follow-up EST PT F/U EARLY SWE LLING, COUGH SCHED VIA MY CHART L/S MS Reason Comments wellness Reason Comments letter of medical clearance Reason Comments Primary hypercoagulable state Reason Comments Med Refill Reason Comments Refill Request Reason Comments Follow-up Thyroid Reason Comments Med Refill Reason Comments Medication Problem Lasix Reason Comments Labs Only Reason Comments Hypertension Reason Onset Date Comments Results 09/08/2024 Reason Comments PTSD Anxiety INFORMATION SOURCE (unrecogn ized section and content) DATE CREATED AUTHOR 08/02/2020 [facility] DATE CREATED AUTHOR AUTHOR'S ORGANIZ ATION 10/30/2021 Alcantara Seymour [facility] DATE CREATED AUTHOR AUTHOR'S ORGANIZ ATION 12/07/2022 [facility] DATE CREATED AUTHOR AUTHOR'S ORGANIZ ATION 04/10/2024 [facility] d[facility] Specialists EPIC DATE CREATED AUTHOR AUTHOR'S ORGANIZ ATION 04/12/2024 [facility] DATE CREATED AUTHOR AUTHOR'S ORGANIZ ATION 04/23/2024 [facility] DATE CREATED AUTHOR AUTHOR'S ORGANIZ ATION 04/30/2024 [facility] DATE CREATED AUTHOR AUTHOR'S ORGANIZ ATION 08/28/2024 [facility] DATE CREATED AUTHOR AUTHOR'S ORGANIZ ATION 09/05/2024 [facility] DATE CREATED AUTHOR AUTHOR'S ORGANIZ ATION 09/20/2024 [facility] Care Teams (unrecognized sec tion and content) [...] PA-C Primary Care Provider Activ e Dominique Grarison DO Attending Provider Active Team Status: Inactive Member Role Status Dates Pam Flanagan PA-C Primary Care Provider Activ e Dominique Garrison DO Attending Provider Active Team Status: Active Member Role Status Dates Pam Flanagan PA-C Primary Care Provider Activ e Ui Engineer Relationship Specialty Start Date End Date Harley Thacker APRN-CNP [address] [place] [phone] PCP - General Nurse Practitioner 10/08/23 Nikolas Parrish CNP Nurse Practitioner Family Medicine 11/24/22 Ui Engineer Relationship Specialty Start Date End Date Harley Thacker APRN-CNP [address] [place] [phone] PCP - General Nurse Practitioner 10/08/23 Nikolas Shamo NURSE Nurse Practitioner Family Medicine 11/24/22 Ui Engineer Relationship Specialty Start Date End Date Harley Thacker APRN-NURSE [address] [place], [facility] [place] [place] [phone] PCP - General Nurse Practitioner 10/08/23 Nikolaskurt Acunajolene NURSE Nurse Practitioner Family Medicine 11/24/22 Ui Engineer Relationship Specialty Start Date End Date Thacker Harley 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NURSE [address] [place] [address], [facility] [place] [phone] PCP - General Nurse Practitioner 10/08/23 Nikolaskurt Acuna NURSE Nurse Practitioner Family Medicine 11/24/22 Ui Engineer Relationship Specialty Start Date End Date Thacker Harley 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NURSE [address] [place] [address], [facility] [place] [phone] PCP - General Nurse Practitioner 10/08/23 Nikolas Acunajolene NURSE Nurse Practitioner Family Medicine 11/24/22 Ui Engineer Relationship Specialty Start Date End Date ThackerUyenHarley 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NURSE [address] [place] [address], [facility] [place] [phone] PCP - General Nurse Practitioner 10/08/23 Nikolas Acunajolene NURSE Nurse Practitioner Family Medicine 11/24/22 Ui Engineer Relationship Specialty Start Date End Date ThackerUyenHarley 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NURSE [address] [place], [place] [phone] PCP - General Nurse Practitioner 10/08/23 Nikolaskurt Acunajolene NURSE Nurse Practitioner Family Medicine 11/24/22 Ui Engineer Relationship Specialty Start Date End Date Harley Thacker 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NURSE [address] [place] [address], [facility] [place] [phone] PCP - General Nurse Practitioner 10/08/23 Nikolas Kalpanajolene NURSE Nurse Practitioner Family Medicine 11/24/22 Ui Engineer Relationship Specialty Start Date End Date Harely Thacker APRN-[facility] [address] [place], [place] [phone] PCP - General Nurse Practitioner 10/08/23 Nikolaskurt Acuna NURSE Nurse Practitioner Family Medicine 11/24/22 Ui Engineer Relationship Specialty Start Date End Date Harley Thacker APRN-[facility] [address] [place] [address], [facility] [address] [facility] [place] [place] [phone] PCP - General Nurse Practitioner 10/08/23 [facility]ition[facility] 11/24/22 Ui Engineer Relationship Specialty Start Date End Date Harley Thacker [address] [place] [address] PCP - General Family Medicine 11/16/23 Ui Engineer Relationship Specialty Start Date End Date Harley Thacker APRN-[facility] [address] [place] [address], [facility] [place] [place] [phone] PCP - General Nurse Practitioner 10/08/23 Nikolaskurt Acuna NURSE Nurse Practitioner Family Medicine 11/24/22 Ui Engineer Relationship Specialty Start Date End Date Harley Thacker [address] [facility] 1 [place] [address] PCP - General Family Medicine 11/16/23 Ui Engineer Relationship Specialty Start Date End Date Harley Thacker 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[facility] [address] [place], [facility] [place] [place] [phone] PCP - General Nurse Practitioner 10/08/23 Nikolas Parrish NURSE Nurse Practitioner Family Medicine 11/24/22 Ui Engineer Relationship Specialty Start Date End Date Kedar Harley, 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NURSE [address] [place] [phone] PCP - General Nurse Practitioner 10/08/23 Nikolas Parrish NURSE Nurse Practitioner Family Medicine 11/24/22 Ui Engineer Relationship Specialty Start Date End Date Kedar Harley, 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[facility] [address] [place] [address], [place] [address] PCP - General Nurse Practitioner 10/08/23 Nikolas Parrish NURSE Nurse Practitioner Family Medicine 11/24/22 Ui Engineer Relationship Specialty Start Date End Date Harley Thacker [address] [place] [address] [phone] PCP - General Family Medicine 11/16/23 Ui Engineer Relationship Specialty Start Date End Date Harley Thacker CNP PCP - General Family Medicine 11/16/23 Ui Engineer Relationship Specialty Start Date End Date Harley Thacker CNP PCP - General Family Medicine 11/16/23 Ui Engineer Relationship Specialty Start Date End Date Harley Thacker CNP PCP - General Family Medicine 11/16/23 Team Status: Inactive Member Role Status Dates Dannie Dickinson DO Attending Provider Active Start : April 08, 2024 End: April 08, 2024 Ui Engineer Relationship Specialty Start Date End Date Harley Thacker CNP PCP - General Family Medicine 11/16/23 Ui Engineer Relationship Specialty Start Date End Date Harley Thacker CNP PCP - General Family Medicine 11/16/23 Ui Engineer Relationship Specialty Start Date End Date Harley Thacker CNP PCP - General Family Medicine 11/16/23 Ui Engineer Relationship Specialty Start Date End Date Harley Thacker CNP PCP - General Family Medicine 11/16/23 Ui Engineer Relationship Specialty Start Date End Date Harley Thacker 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NURSE [address] [place] [address], [facility] [place] [phone] PCP - General Nurse Practitioner 10/08/23 Nikolas Parrish CNP Nurse Practitioner Family Medicine 11/24/22 Ui Engineer Relationship Specialty Start Date End Date Harley Thacker 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NURSE [address] [place] [address], [facility] [place] [phone] PCP - General Nurse Practitioner 10/08/23 Nikolas Parrish CNP Nurse Practitioner Family Medicine 11/24/22 Ui Engineer Relationship Specialty Start Date End Date Kedar Harley 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NURSE [address] [place] [address], [facility] [place] [place] [address] PCP - General Nurse Practitioner 10/08/23 Nikolas Parrish CNP Nurse Practitioner Family Medicine 11/24/22 Ui Engineer Relationship Specialty Start Date End Date Harley Thacker, [facility] PCP - General Family Medicine 11/16/23 Ui Engineer Relationship Specialty Start Date End Date Harley Thacker APRN-NURSE [address] [place] [address], [facility] Bing [facility] [place] [place] [phone] PCP - General Nurse Practitioner 10/08/23 Nikolas Parrish NURSE Nurse Practitioner Family Medicine 11/24/22 Ui Engineer Relationship Specialty Start Date End Date Harley Thacker APRN-[facility] [address] [place] [address], [facility] Bing [facility] [place] [place] [phone] PCP - General Nurse Practitioner 10/08/23 Nikolas Kalpanajolene [facility] Nurse Practitioner Family Medicine 11/24/22 Ui Engineer Relationship Specialty Start Date End Date Harley Thacker APRN-[facility] [address] [place] [address], [facility] [place] [phone] PCP - General Nurse Practitioner 10/08/23 Nikolaskurt Acunajolene [facility] Nurse Practitioner Family Medicine 11/24/22 Ui Engineer Relationship Specialty Start Date End Date Harley Thacker APRN-[facility] [address] [place] [address], [facility] [place] [phone] PCP - General Nurse Practitioner 10/08/23 Nikolas Kalpanajolene NURSE Nurse Practitioner Family Medicine 11/24/22 Ui Engineer Relationship Specialty Start Date End Date Harley Thacker APRN-[facility] [address] [place] [address], [facility] [place] [phone] PCP - General Nurse Practitioner 10/08/23 Nikolas Kalpanajolene NURSE Nurse Practitioner Family Medicine 11/24/22 Ui Engineer Relationship Specialty Start Date End Date Harley Thacker APRN-NURSE [address] [place], [facility] [place] [phone] PCP - General Nurse Practitioner 10/08/23 Nikolas Parrish CNP Nurse Practitioner Family Medicine 11/24/22 Ui Engineer Relationship Specialty Start Date End Date Harley Thacker MD [address] [address] PCP - General Family Medicine 02/27/24 Ui Engineer Relationship Specialty Start Date End Date Harley Thacker APRN-[facility] [address] [place], [facility] [place] [phone] PCP - General Nurse Practitioner 10/08/23 Nikolas Parrish CNP Nurse Practitioner Family Medicine 11/24/22 Ui Engineer Relationship Specialty Start Date End Date Harley Thacker APRN-[facility] [address] [place], [place] [phone] PCP - General Nurse Practitioner 10/08/23 Nikolas Parrish CNP Nurse Practitioner Family Medicine 11/24/22 Goals (unrecognized section and content) Goals may [...] encounterGoals may be documented in an alternate sectionNot on filedocumented as of this [...] or prosecute any alcohol or drug abuse patient.[facility] HealthIn the event this information is protected by the Federal Confidentiality of Alcohol and Drug Abuse Patient Records regulations: The Federal rules restrict any use of the information to criminally investigate or prosecute any alcohol or drug abuse patient.[facility] HealthIn the event this information is protected by the Federal Confidentiality of Alcohol and Drug Abuse Patient Records regulations: The Federal rules restrict any use of the information to criminally investigate or prosecute any alcohol or drug abuse patient.[facility] HealthIn the event this information is protected by the Federal Confidentiality of Alcohol and Drug Abuse Patient Records regulations: The Federal rules restrict any use of the information to criminally investigate or prosecute any alcohol or drug abuse patient.[facility] HealthIn the event this information is protected by the Federal Confidentiality of Alcohol and Drug Abuse Patient Records regulations: The Federal rules restrict any use of the information to criminally investigate or prosecute any alcohol or drug abuse patient.[facility] HealthIn the event this information is protected by the Federal Confidentiality of Alcohol and Drug Abuse Patient Records regulations: The Federal rules restrict any use of the information to criminally investigate or prosecute any alcohol or drug abuse patient.[facility] HealthIn the event this information is protected by the Federal Confidentiality of Alcohol and Drug Abuse Patient Records regulations: The Federal rules restrict any use of the information to criminally investigate or prosecute any alcohol or drug abuse patient.[facility] HealthIn the event this information is protected by the Federal Confidentiality of Alcohol and Drug Abuse Patient Records regulations: The Federal rules restrict any use of the information to criminally investigate or prosecute any alcohol or drug abuse patient.[facility] HealthIn the event this information is protected by the Federal Confidentiality of Alcohol and Drug Abuse Patient Records regulations: The Federal rules restrict any use of the information to criminally investigate or prosecute any alcohol or drug abuse patient.[facility] HealthIn the event this information is protected by the Federal Confidentiality of Alcohol and Drug Abuse Patient Records regulations: The Federal rules restrict any use of the information to criminally investigate or prosecute any alcohol or drug abuse patient.[facility] HealthIn the event this information is protected by the Federal Confidentiality of Alcohol and Drug Abuse Patient Records regulations: The Federal rules restrict any use of the information to criminally investigate or prosecute any alcohol or drug abuse patient.[facility] HealthIn the event this information is protected by the Federal Confidentiality of Alcohol and Drug Abuse Patient Records regulations: The Federal rules restrict any use of the information to criminally investigate or prosecute any alcohol or drug abuse patient.[facility] FOR RECORDS PERTAINING TO PATIENTS WHO ARE [...] BE BASED ON THE PRIMARY CLINICAL RECORDS. [facility] They [facility]. provides no warranty or guarantee of the accuracy or completeness of information in this document.
[2024-09-22 08:16] VITALS: BP 147/90; PULSE 78; TEMP 36.2; O2SAT 98
[2024-09-22 09:01] VITALS: BP 144/84; BP 144/85; PULSE 74; PULSE 79; O2SAT 97
--- NOTE | 2024-09-22 09:06 | W.PM.PROCNOT ---
Date of procedure: 09/22/24 Pre-op diagnosis: Pain due to lumbar stenosis with neurogenic claudication Post-op diagnosis: same as pre-op Procedure: Procedure: Bilateral L5-S1 transforaminal epidural steroid injection Medications: Bupivacaine 0.25% 2cc, lidocaine 2% 1cc, depomedrol 80mg The patient was seen and examined in the preoperative holding area.? Informed consent was obtained and placed on the chart.? Patient was brought to the medical procedure unit and placed in the prone position where a timeout was completed verifying the correct patient, procedure site, position, and planned special equipment using sterile aseptic technique.? Under direct fluoroscopic visualization a 25-gauge Quincke tipped spinal needle was advanced at level left L5-S1 to the designated neural foramen where contrast dye was injected to show adequate spread.? There was no evidence of vascular or adverse uptake.? Epidural spread was appreciated.? The above-mentioned injectate was then placed in a 1.5 mL aliquot preceded by negative aspiration.? The needle was removed. The same procedure, at the same level, was completed on the opposite side. ? Patient was taken to the postprocedural recovery area and monitored for an appropriate length of time before found suitable for discharge in the accompaniment of a responsible adult. Anesthesia: Local Surgeon: Yancy Cancino Pathology: none sent Condition: stable Disposition: no change
[2024-09-22] MEDS: IOHEXOL 240 MG/ML - 10 ML VIAL 24 MG INJ (09:07)
[2024-09-22] MEDS: BUPIVACAINE HCL 0.25% PF 25 MG/10 ML VIAL INJ (09:07)
[2024-09-22] MEDS: 0.9 % SODIUM CHLORIDE 10 ML SYRINGE - SALINE FLUSH INJ (09:07)
[2024-09-22] MEDS: METHYLPREDNISOLONE ACETATE 80 MG/ML VIAL INJ (09:08)
[2024-09-22] MEDS: LIDOCAINE HCL 2% 400 MG/20 ML MDV 4 ML INJ (09:08)
== END 2024-09-22 09:11 | disposition home or self-care (01) ==
LOC: SURGOUT 07:11
PROVIDERS: Visit Provider Anesthesiology
DX: M48.062 Spinal stenosis, lumbar region with neurogenic claudication (principal)
CPT/HCPCS: 64483; 84703; J0665; J1010; Q9966

== ENCOUNTER 2024-10-02 10:15 | Outpatient (OUT) | payer MEDICARE, MEDICAID, SELFPAY ==
--- NOTE | 2024-10-02 10:51 | PM.CN ---
Consult Note: HPI Data of Consult Patient: known to practice within the last 3 years Requesting Physician: Brenda Gonzalez NP Primary Care Provider: Non-Staff Physician, MD Consult Narrative Reason for consult: low back, bilateral leg pain Narrative: 33yof who presents for assessment. continues to have worsening low back and bilateral leg pain and weakness. imaging reviewed, which is significant for multilevel stenosis, worst noted at l5-s1. continues to engage in a series of provider directed home exercises, which have not helped >6 weeks. uses Tylenol #3 gabapentin, flexeril. denies adverse med side effects. recent lumbar xray shows grade 2 listhesis at L5-S1. pt following with NS for evaluation of lumbar spine. recently underwent bilateral L5-S1 TFESI with 50% improvement ongoing. pain today 6/10 in low back and right leg, throbbing stabbing pain. pain increased with standing walking houseworking lifting ADLs activity and sleep, pain improved with lying sitting and heat. NS recommending pt do additional PT and update lumbar MRI. cc:: CC: Brenda Gonzalez NP Review of Systems ROS Status of ROS 10 or more systems reviewed and unremarkable except as noted in history and below Musculoskeletal Reports: back pain, extremity pain and joint pain [facility] Medical History (Updated 09/10/24 @ 10:07 by Brenda Gonzalez NP) Neck pain ?M54.2 - Cervicalgia (ICD-10) DDD (degenerative disc disease) Back pain ?M54.9 - Dorsalgia, unspecified (ICD-10) Factor V deficiency ?D68.2 - Hereditary deficiency of other clotting factors (ICD-10) Deep vein thrombosis ?I82.409 - Acute embolism and thrombosis of unspecified deep veins of unspecified lower extremity (ICD-10) Depression ?F32.A - Depression, unspecified (ICD-10) Panic attacks ?F41.0 - Panic disorder [episodic paroxysmal anxiety] (ICD-10) COVID-19 ?U07.1 - COVID-19 (ICD-10) Migraine ?G43.909 - Migraine, unspecified, not intractable, without status migrainosus (ICD-10) Atrial fibrillation ?I48.91 - Unspecified atrial fibrillation (ICD-10) PCOS (polycystic ovarian syndrome) ?E28.2 - Polycystic ovarian syndrome (ICD-10) 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 - Methylenetetrahydrofolate reductase deficiency (ICD-10) ?E72.11 - Homocystinuria (ICD-10) Pelvic pain ?R10.2 - Pelvic and perineal pain (ICD-10) Abnormal uterine bleeding (AUB) ?N93.9 - Abnormal uterine and vaginal bleeding, unspecified (ICD-10) Menorrhagia ?N92.0 - Excessive and frequent menstruation with regular cycle (ICD-10) Request for sterilization ?Z30.2 - Encounter for sterilization (ICD-10) Hidradenitis suppurativa ?L73.2 - Hidradenitis suppurativa (ICD-10) Abscess ?L02.91 - Cutaneous abscess, unspecified (ICD-10) Sleep apnea ?G47.30 - Sleep apnea, unspecified (ICD-10) Osteoarthritis ?M19.90 - Unspecified osteoarthritis, unspecified site (ICD-10) [place]-Schlatter's disease ?M92.529 - Juvenile osteochondrosis of tibia tubercle, unspecified leg (ICD-10) Anemia ?D64.9 - Anemia, unspecified (ICD-10) Anxiety ?F41.9 - Anxiety disorder, unspecified (ICD-10) Acid reflux ?K21.9 - Gastro-esophageal reflux disease without esophagitis (ICD-10) Factor V Leiden ?D68.51 - Activated protein C resistance (ICD-10) 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 - Autoimmune thyroiditis (ICD-10) Pulmonary embolism ?I26.99 - Other pulmonary embolism without acute cor pulmonale (ICD-10) High cholesterol ?E78.00 - Pure hypercholesterolemia, unspecified (ICD-10) Hypertension ?I10 - Essential (primary) hypertension (ICD-10) Chest pain ?R07.9 - Chest pain, unspecified (ICD-10) Surgical History History of incision and drainage ?Z98.890 - Other specified postprocedural states (ICD-10) History of esophagogastroduodenoscopy (EGD) ?Z98.890 - Other specified postprocedural states (ICD-10) S/P surgical removal of pilonidal cyst ?Z98.890 - Other specified postprocedural states (ICD-10) S/P epidural steroid injection ?Z92.241 - Personal history of systemic steroid therapy (ICD-10) Hx of cholecystectomy ?Z90.49 - Acquired absence of other specified parts of digestive tract (ICD-10) H/O partial thyroidectomy ?E89.0 - Postprocedural hypothyroidism (ICD-10) [place] teeth extracted ?K08.409 - Partial loss of teeth, unspecified cause, unspecified class (ICD-10) Hx of tonsillectomy ?Z90.89 - Acquired absence of other organs (ICD-10) History of appendectomy ?Z90.49 - Acquired absence of other specified parts of digestive tract (ICD-10) Family History Other Cancer Factor V deficiency Family history of colon cancer Family history of diabetes mellitus Family history of heart disease Family history of hypertension Family history of myocardial infarction Family history of seizures Family history of stroke Social History Within the past year, how often did you have a drink containing alcohol: never Score interpretation: A score less than 3 is consistent with normal alcohol consumption. Smoking status: Former smoker Non-prescribed substance use: denies use Highest level of school completed/degree received: high school graduate Meds Home Medications and Allergies Home Medications ?Medication ?Instructions ?Recorded ?Confirmed ?Type atomoxetine 60 mg capsule 60 mg PO QDAY 02/01/23 09/22/24 History gabapentin 300 mg capsule 300 mg PO Q8H 02/01/23 09/22/24 History isosorbide mononitrate 10 mg tablet 15 mg PO QDAY 02/01/23 09/22/24 History metoprolol tartrate 50 mg tablet 50 mg PO BID 02/01/23 09/22/24 History (Lopressor) omeprazole 20 mg capsule,delayed 20 mg PO BID 02/01/23 09/22/24 History release rimegepant 75 mg disintegrating 75 mg PO QDAY PRN migraine headache 02/01/23 09/22/24 History tablet (Nurtec ODT) spironolactone 25 mg tablet 25 mg PO QDAY 02/01/23 09/22/24 History acetaminophen 300 mg-codeine 30 mg 1 tab PO BID PRN pain #60 tabs 03/10/24 09/22/24 Rx tablet ferrous sulfate 325 mg (65 mg 325 mg PO DAILY 03/10/24 09/22/24 History iron) tablet (Feosol) fondaparinux 10 mg/0.8 mL 10 mg subcut DAILY 03/10/24 09/22/24 History subcutaneous solution syringe hydrochlorothiazide 25 mg tablet 25 mg PO DAILY 03/10/24 09/22/24 History secukinumab 150 mg/mL subcutaneous 300 mg subcut .QMONTH 03/10/24 09/22/24 History syringe (Cosentyx 300 mg/2 Syringes () levothyroxine 50 mcg tablet 50 mcg PO DAILY 04/11/24 09/22/24 History baclofen 10 mg tablet 10 mg PO TID #90 tabs 09/09/24 09/22/24 Rx meclizine 25 mg chewable tablet 25 mg PO DAILY PRN dizziness 09/16/24 09/22/24 History Allergies Allergy/AdvReac Type Severity Reaction Status Date / Time amoxicillin Allergy Severe Hives Verified 09/22/24 08:21 cefaclor (From Ceclor) Allergy Severe Hives Verified 09/22/24 08:21 ciprofloxacin (From Cipro) Allergy Severe Hives Verified 09/22/24 08:21 Estrogens Allergy Severe due to Verified 09/22/24 08:21 factor V Sulfa (Sulfonamide Allergy Severe Hives Verified 09/22/24 08:21 Antibiotics) tetanus and diphtheria Allergy Severe vomiting Verified 09/22/24 08:21 toxoids and fever kory Allergy Hives Uncoded 09/22/24 08:21 Exam Constitutional Documenting provider has reviewed patient's vital signs: yes Common normals: no apparent distress, oriented x3, healthy appearing, alert and well nourished General appearance: cooperative Nutritional appearance: obese HENMT Common normals: normocephalic, hearing grossly normal bilaterally and moist oral mucous membranes Head and scalp: normocephalic Eye Common normals: PERRL Pupil: PERRL Neck & C-Spine Common normals: full ROM General: normal visual inspection Chest Common normals: inspection of chest normal Respiratory Common normals: normal respiratory effort, no retractions and no use of accessory muscles Back & Pelvis Lumbar spine/lower back: normal to inspection, ROM limited, pain with ROM and straight leg raise positive right Sacroiliac joints: SI joint(s) abnormal Other: bilateral sij positive yue(patricks), gaenslens, thigh thrust, compression test strength 4/5 in BLE Neuro Common normals: oriented x3, CN's II-XII intact bilaterally, moves all extremities, no focal motor deficits, no sensory deficits noted and deep tendon reflexes 2+ bilaterally Sensorium/orientation: alert Motor exam: strength 5/5 throughout and no movement abnormalities noted Psych Common normals: mental status grossly normal, thought process normal, cooperative, affect normal, speech normal and activity/motor behavior normal Speech: normal speech Thought process: normal thought process Results Additional Findings Additional findings: If on a controlled substance or opioids, I have checked an OARRS report on this patient and there are no aberrancies noted in the prescribing history.??If on a controlled substance or opioid a drug screen was completed and reviewed within the last year, and if there has not been a drug screen completed we ordered one today to monitor higher risk, state monitored pain medication use. As part of providing excellent, safe, comprehensive care, the following was completed at our patient's visit: 1. A medication reconciliation and review to ensure accurate knowledge of current/active medications, including asking our patients to inform us about any [id number] medications or herbal remedies/nutritional supplements/alternative remedies. 2. A review to specifically ensure our patients have had annual screening for screening for depression, screening for tobacco use, and screening for unhealthy alcohol use. For concerning screenings had a discussion with the patient, provided patient education, and recommended follow-up with primary care provider when appropriate. If patient noted with a risk of falling, they received education on strength, gait, and balance training to prevent future risk of falling. Portions of this note may have been carried over from the previous visit and updated as appropriate. Please note this office utilizes paper charting in addition to the electronic medical record. A list of current medications, vitals, and PMH is available there as the clinical staff outside of myself do not have access to [facility] charting during the clinic day operations. As part of providing quality comprehensive care the current medications, vitals, and PMH were reviewed in the paper chart. Assessment and Plan Assessment and Plan (1) Lumbar stenosis with neurogenic claudication: (2) Spondylolisthesis at L5-S1 level: (3) Chronic prescription opiate use: Assessment and Plan: I feel these medications are improving the patient's quality of life and allow them to tolerate activities of daily living as well as participate in recreational activity.? The patient does not report intolerable side effects. The patient is NOT opioid naive and non-pharmacologic and non-opioid treatment has failed to significantly relieve the patient's pain and improve functionality. The patient has a diagnosis that is related to a somatic or visceral pain etiology. ? ?? I reviewed with the patient the potential risks and side effects with the use of? opioid medications including but not limited to respiratory depression,? sedation, and even . I verified the patient has access to naloxone should? these effects occur. I advised the patient to avoid the use of any other? sedation substances including alcohol, THC, and benzodiazepines while? taking opioid medications due to the risk of compounding side effects and? detrimental outcomes. I reviewed the [employer], pain treatment agreement, urine? drug screen, and opioid start talking forms. The patient was advised to let? their family know they had Naloxone in case they would need to administer? the medication.? ?? A drug screen was completed within the last year, and no aberrancies were noted regarding their use of controlled substances. The patient understands they are subject to the terms and conditions of the pain contract that they have signed. ? ?? I have checked an OARRS report on this patient today and there are no aberrancies noted in the prescribing history.? (4) Lumbar spondylosis: (5) Muscle spasm: (6) DDD (degenerative disc disease): (7) Obesity: Assessment and Plan: on ozempic, working on weight loss Plan continue f/u with NS continue current medications f/u 3 months
== END 2024-10-02 10:16 | disposition home or self-care (01) ==
LOC: PM 10:15
PROVIDERS: Visit Provider Nurse Practitioner
DX: M48.062 Spinal stenosis, lumbar region with neurogenic claudication (principal); M43.17 Spondylolisthesis, lumbosacral region; Z79.891 Long term (current) use of opiate analgesic; M47.816 Spondylosis without myelopathy or radiculopathy, lumbar region; M62.838 Other muscle spasm; M51.369 Other intervertebral disc degeneration, lumbar region without mention of lumbar back pain or lower extremity pain; E66.89 Other obesity not elsewhere classified
CPT/HCPCS: G0463

== ENCOUNTER 2024-12-31 09:23 | Outpatient (OUT) | payer MEDICARE, MEDICAID, SELFPAY ==
--- NOTE | 2024-12-31 09:52 | PM.CN ---
Consult Note: HPI Data of Consult Patient: known to practice within the last 3 years Requesting Physician: Brenda Gonzalez NP Primary Care Provider: Non-Staff Physician, MD Consult Narrative Reason for consult: low back, bilateral leg pain Narrative: 34yof who presents for assessment. continues to have worsening low back and bilateral leg pain and weakness. imaging reviewed, which is significant for multilevel stenosis, worst noted at l5-s1. continues to engage in a series of provider directed home exercises, which have not helped >6 weeks. uses Tylenol #3 gabapentin, flexeril. denies adverse med side effects. recent lumbar xray shows grade 2 listhesis at L5-S1. pt following with NS for evaluation of lumbar spine. pain today 7-9/10 in low back and right leg, throbbing stabbing pain. pain increased with standing walking housework, lifting ADLs activity and sleep, pain improved with lying sitting and heat. Pt planning for lumbar fusion once cleared by heme/onc. 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 - Hereditary deficiency of other clotting factors (ICD-10) Deep vein thrombosis ?I82.409 - Acute embolism and thrombosis of unspecified deep veins of unspecified lower extremity (ICD-10) Depression ?F32.A - Depression, unspecified (ICD-10) Panic attacks ?F41.0 - Panic disorder [episodic paroxysmal anxiety] (ICD-10) COVID-19 ?U07.1 - COVID-19 (ICD-10) Migraine ?G43.909 - Migraine, unspecified, not intractable, without status migrainosus (ICD-10) Atrial fibrillation ?I48.91 - Unspecified atrial fibrillation (ICD-10) PCOS (polycystic ovarian syndrome) ?E28.2 - Polycystic ovarian syndrome (ICD-10) 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 - Methylenetetrahydrofolate reductase deficiency (ICD-10) ?E72.11 - Homocystinuria (ICD-10) Pelvic pain ?R10.2 - Pelvic and perineal pain (ICD-10) Abnormal uterine bleeding (AUB) ?N93.9 - Abnormal uterine and vaginal bleeding, unspecified (ICD-10) Menorrhagia ?N92.0 - Excessive and frequent menstruation with regular cycle (ICD-10) Request for sterilization ?Z30.2 - Encounter for sterilization (ICD-10) Hidradenitis suppurativa ?L73.2 - Hidradenitis suppurativa (ICD-10) Abscess ?L02.91 - Cutaneous abscess, unspecified (ICD-10) Sleep apnea ?G47.30 - Sleep apnea, unspecified (ICD-10) Osteoarthritis ?M19.90 - Unspecified osteoarthritis, unspecified site (ICD-10) [place]-Schlatter's disease ?M92.529 - Juvenile osteochondrosis of tibia tubercle, unspecified leg (ICD-10) Anemia ?D64.9 - Anemia, unspecified (ICD-10) Anxiety ?F41.9 - Anxiety disorder, unspecified (ICD-10) Acid reflux ?K21.9 - Gastro-esophageal reflux disease without esophagitis (ICD-10) Factor V Leiden ?D68.51 - Activated protein C resistance (ICD-10) 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 - Autoimmune thyroiditis (ICD-10) Pulmonary embolism ?I26.99 - Other pulmonary embolism without acute cor pulmonale (ICD-10) High cholesterol ?E78.00 - Pure hypercholesterolemia, unspecified (ICD-10) Hypertension ?I10 - Essential (primary) hypertension (ICD-10) Chest pain ?R07.9 - Chest pain, unspecified (ICD-10) Surgical History History of incision and drainage ?Z98.890 - Other specified postprocedural states (ICD-10) History of esophagogastroduodenoscopy (EGD) ?Z98.890 - Other specified postprocedural states (ICD-10) S/P surgical removal of pilonidal cyst ?Z98.890 - Other specified postprocedural states (ICD-10) S/P epidural steroid injection ?Z92.241 - Personal history of systemic steroid therapy (ICD-10) Hx of cholecystectomy ?Z90.49 - Acquired absence of other specified parts of digestive tract (ICD-10) H/O partial thyroidectomy ?E89.0 - Postprocedural hypothyroidism (ICD-10) [place] teeth extracted ?K08.409 - Partial loss of teeth, unspecified cause, unspecified class (ICD-10) Hx of tonsillectomy ?Z90.89 - Acquired absence of other organs (ICD-10) History of appendectomy ?Z90.49 - Acquired absence of other specified parts of digestive tract (ICD-10) Family History Other Cancer Factor V deficiency Family history of colon cancer Family history of diabetes mellitus Family history of heart disease Family history of hypertension Family history of myocardial infarction Family history of seizures Family history of stroke Social History Within the past year, how often did you have a drink containing alcohol: never Score interpretation: A score less than 3 is consistent with normal alcohol consumption. Smoking status: Former smoker Non-prescribed substance use: denies use Highest level of school completed/degree received: high school graduate Meds Home Medications and Allergies Home Medications ?Medication ?Instructions ?Recorded ?Confirmed ?Type atomoxetine 60 mg capsule 60 mg PO QDAY 02/01/23 09/22/24 History gabapentin 300 mg capsule 300 mg PO Q8H 02/01/23 09/22/24 History isosorbide mononitrate 10 mg tablet 15 mg PO QDAY 02/01/23 09/22/24 History metoprolol tartrate 50 mg tablet 50 mg PO BID 02/01/23 09/22/24 History (Lopressor) omeprazole 20 mg capsule,delayed 20 mg PO BID 02/01/23 09/22/24 History release rimegepant 75 mg disintegrating 75 mg PO QDAY PRN migraine headache 02/01/23 09/22/24 History tablet (Nurtec ODT) spironolactone 25 mg tablet 25 mg PO QDAY 02/01/23 09/22/24 History acetaminophen 300 mg-codeine 30 mg 1 tab PO BID PRN pain #60 tabs 03/10/24 09/22/24 Rx tablet ferrous sulfate 325 mg (65 mg 325 mg PO DAILY 03/10/24 09/22/24 History iron) tablet (Feosol) fondaparinux 10 mg/0.8 mL 10 mg subcut DAILY 03/10/24 09/22/24 History subcutaneous solution syringe hydrochlorothiazide 25 mg tablet 25 mg PO DAILY 03/10/24 09/22/24 History secukinumab 150 mg/mL subcutaneous 300 mg subcut .QMONTH 03/10/24 09/22/24 History syringe (Cosentyx 300 mg/2 Syringes () levothyroxine 50 mcg tablet 50 mcg PO DAILY 04/11/24 09/22/24 History baclofen 10 mg tablet 10 mg PO TID #90 tabs 09/09/24 09/22/24 Rx meclizine 25 mg chewable tablet 25 mg PO DAILY PRN dizziness 09/16/24 09/22/24 History baclofen 10 mg tablet 10 mg PO TID PRN muscle spasm #90 12/31/24 Rx tabs Allergies Allergy/AdvReac Type Severity Reaction Status Date / Time amoxicillin Allergy Severe Hives Verified 09/22/24 08:21 cefaclor (From Ceclor) Allergy Severe Hives Verified 09/22/24 08:21 ciprofloxacin (From Cipro) Allergy Severe Hives Verified 09/22/24 08:21 Estrogens Allergy Severe due to Verified 09/22/24 08:21 factor V Sulfa (Sulfonamide Allergy Severe Hives Verified 09/22/24 08:21 Antibiotics) tetanus and diphtheria Allergy Severe vomiting Verified 09/22/24 08:21 toxoids and fever kory Allergy Hives Uncoded 09/22/24 08:21 Exam Constitutional Documenting provider has reviewed patient's vital signs: yes Common normals: no apparent distress, oriented x3, healthy appearing, alert and well nourished General appearance: cooperative Nutritional appearance: obese HENMT Common normals: normocephalic, hearing grossly normal bilaterally and moist oral mucous membranes Head and scalp: normocephalic Eye Common normals: PERRL Pupil: PERRL Neck & C-Spine Common normals: full ROM General: normal visual inspection Chest Common normals: inspection of chest normal Respiratory Common normals: normal respiratory effort, no retractions and no use of accessory muscles Back & Pelvis Lumbar spine/lower back: normal to inspection, ROM limited, pain with ROM and straight leg raise positive right Sacroiliac joints: SI joint(s) abnormal Other: bilateral sij positive yue(patricks), gaenslens, thigh thrust, compression test strength 4/5 in BLE Neuro Common normals: oriented x3, CN's II-XII intact bilaterally, moves all extremities, no focal motor deficits, no sensory deficits noted and deep tendon reflexes 2+ bilaterally Sensorium/orientation: alert Motor exam: strength 5/5 throughout and no movement abnormalities noted Psych Common normals: mental status grossly normal, thought process normal, cooperative, affect normal, speech normal and activity/motor behavior normal Speech: normal speech Thought process: normal thought process Results Additional Findings Additional findings: If on a controlled substance or opioids, I have checked an [place]AR[place] report on this patient and there are no aberrancies noted in the prescribing history.??If on a controlled substance or opioid a drug screen was completed and reviewed within the last year, and if there has not been a drug screen completed we ordered one today to monitor higher risk, state monitored pain medication use. As part of providing excellent, safe, comprehensive care, the following was completed at our patient's visit: 1. A medication reconciliation and review to ensure accurate knowledge of current/active medications, including asking our patients to inform us about any [id number] medications or herbal remedies/nutritional supplements/alternative remedies. 2. A review to specifically ensure our patients have had annual screening for screening for depression, screening for tobacco use, and screening for unhealthy alcohol use. For concerning screenings had a discussion with the patient, provided patient education, and recommended follow-up with primary care provider when appropriate. If patient noted with a risk of falling, they received education on strength, gait, and balance training to prevent future risk of falling. Portions of this note may have been carried over from the previous visit and updated as appropriate. Please note this office utilizes paper charting in addition to the electronic medical record. A list of current medications, vitals, and PMH is available there as the clinical staff outside of myself do not have access to [employer] charting during the clinic day operations. As part of providing quality comprehensive care the current medications, vitals, and PMH were reviewed in the paper chart. Assessment and Plan Assessment and Plan (1) Lumbar stenosis with neurogenic claudication: (2) Spondylolisthesis at L5-S1 level: (3) Chronic prescription opiate use: Assessment and Plan: ?? A drug screen was completed within the last year, and no aberrancies were noted regarding their use of controlled substances. The patient understands they are subject to the terms and conditions of the pain contract that they have signed. ? ?? I have checked an [place]ARRS report on this patient today and there are no aberrancies noted in the prescribing history.? (4) Lumbar spondylosis: (5) Muscle spasm: (6) DDD (degenerative disc disease): (7) Obesity: Assessment and Plan: on ozempic, working on weight loss Plan continue f/u with NS, pt pending lumbar fusion. aware she will need to DC opioids from our office and allow NS to manage post op pain. pt will call with updated plan and date of surgical intervention dc tylenol #3 due to ineffectiveness, start tramadol 50mg BID PRN moderate to severe pain 14 tabs to last 7 days. risks vs benefits reviewed. pt to call and discuss response to medications nurse call in 1 month to evaluate plan of care, f/u with myself in 3 months. may adjust based on surgical plan
== END 2024-12-31 09:24 | disposition home or self-care (01) ==
LOC: PM 09:23
PROVIDERS: Visit Provider Nurse Practitioner
DX: M48.062 Spinal stenosis, lumbar region with neurogenic claudication (principal); M43.17 Spondylolisthesis, lumbosacral region; Z79.891 Long term (current) use of opiate analgesic; M47.816 Spondylosis without myelopathy or radiculopathy, lumbar region; M62.838 Other muscle spasm; E66.89 Other obesity not elsewhere classified
CPT/HCPCS: G0463

== ENCOUNTER 2025-04-01 09:19 | Outpatient (OUT) | payer MEDICARE, MEDICAID, SELFPAY ==
--- OUTSIDE RECORDS SUMMARY | 2010-09-07 11:30 | XMS_ITS | Encounter Summary ---
Author Organization [facility] Address [address], [address] [place] [address] Care Team Providers Care Language Tutor Name Role Phone Unavailable Primary Care Provider Unavailabl e Encounter Details Date Type Department Care Team (Late st Contact Info) Description 09/07/2010 10:30 AM [facility] Hospital Encounter [facility] Dept [address] [place] [id number] Social History Tobacco Use Types Packs/Day Years Used Date Smoking Tobacco: Former Cigarettes Q uit: 04/28/2013 Smokeless Tobacco: Never Alcohol Use Standard Drinks/Week Comments No 0 (1 standard drink = 0.6 oz pur e alcohol) Comments No Sex and Gender Information Value Date Recorded Sex Assigned at Not on file Legal Sex Female 1:14 PM EST Gender Identity Not on file Sexual Orientation Not on file documented as of this encounter Plan of Treatment Not on file documented as of this encounter Visit Diagnoses Not on filedocumented in this encounter
--- OUTSIDE RECORDS SUMMARY | 2023-10-25 05:30 | XMS_ITS ---
Author Organization [facility] vices Address [address] [place] [id number] Care Team Providers Care Review Assistant Name Role Phone Nikolas Roche Primary Care Provider REASON FOR VISIT Wellness Social History Sex Assigned At : Social History Observation Description Sex Assigned At Female Encounters Encounter Location Date Provider Diagnosis [id number] [place] [address] 10/25/2023 Nikolas Roche Plan Of Treatment No Information Progress Notes * Margaret PRIETODOB:[birth year] (34 yo F)Acc No.[id number]:10/25/2023 Progress Notes Patient: Margaret PERDOMO Provider: JENI Alicea :1990 A ge:32 Y S ex:Female Date:10/25/2023 Address[address] [id number] Subjective: * Chief Complaints: * 1 . Wellness. * Medical History: Objective: * Vitals: Assessment: Plan: * Treatment: Care Plan: * Problems: * Billing Information: * Visit Code: * Procedure Codes: * Electronic signature of Ehsan Roche NP on 04/01/2025 at 09:22 AM EDT Sign off status: Pending * Provider: JENI Alicea Date: 10/25/2023 Generated for Printi ng/Faxing/eTransmitting on: 0 04/01/2025 09:22 AM EDT
--- OUTSIDE RECORDS SUMMARY | 2023-11-21 05:30 | XMS_ITS ---
Author Organization [facility] vices Address [address] [place] [id number] Care Team Providers Care Solar Applications Development Engineer Name Role Phone Nikolas Roche Primary Care Provider [phone] Hetal Barajas [phone] REASON FOR VISIT wellness Social History Sex Assigned At : Social History Observation Description Sex Assigned At Female Encounters Encounter Location Date Provider Diagnosis [facility] [address] [place] [id number] 11/21/2023 Hetal Peterson Plan Of Treatment No Information Progress Notes * Margaret PRIETODOB:[birth year] (34 yo F)Acc No.[id number]:11/21/2023 Progress Notes Patient: Margaret PERDOMO Provider: Austen Peterson :1990 A ge:33 Y S ex:Female Date:11/21/2023 [facility] [id number] Pcp:Nikolas Roche Subjective: * Chief Complaints: * 1 . Wellness. * Medical History: Objective: * Vitals: Assessment: Plan: * Treatment: Care Plan: * Problems: * Billing Information: * Visit Code: * Procedure Codes: * Electronic signature of NABIL Fischer on 04/01/2025 at 09:22 AM EDT Sign off status: Pending * Provider: Austen Peterson Date: 0 11/21/2023 Generated for Printi ng/Faxing/eTransmitting on: 0 04/01/2025 09:22 AM EDT
--- OUTSIDE RECORDS SUMMARY | 2024-07-22 07:05 | XMS_ITS ---
Author Organization [facility] Address [address] [place] [address] Care Team Providers Care Tearoom Host/Hostess Name Role Phone Dr. Ramiro Matthew Primary Care Provider [phone] Jazmine Saucedo [phone] REASON FOR VISIT PROPHY Encounters Encounter Location Date Provider Diagnosis [facility] [address] [place] [address] 07/22/2024 Jazmine Kaba Plan Of Treatment No Information Progress Notes * BARRONTERESSA CarreroDOB:1990 (34 yo F)Acc No.[id number]:07/22/2024 Patient: TERESSA ARAUJO Provider: Germán Kaba :1990 A ge:33 Y S ex:Female Date:07/22/2024 [facility] [facility] Pcp:Dr. Ramiro Matthew Subjective: * Chief Complaints: * 1 . PROPHY. * Medical History: Objective: * Vitals: Assessment: Plan: * Treatment: * Images: * Electronic signature of Manuel Kaba on 04/01/2025 at 09:21 AM EDT Sign off status: Pending * Provider: Germán Kaba Date: 09/21/2023 Generated for Printi ng/Faxing/eTransmitting on: 0 04/01/2025 09:21 AM EDT
--- OUTSIDE RECORDS SUMMARY | 2025-04-01 09:21 | XMS_ITS | Encounter Summary ---
Author Organization [facility] tem Address [id number] [address] [place] [address] Care Team Providers Care Administrative Manager Name Role Phone Lori Thacker [facility] Primary Care Provider Reason for Visit * Reason Comments Med Refill Encounter Details Date Type Department Care Team (Late st Contact Info) Description 10/18/2017 Refill [facility] [address] [place] [address] [address] [place] [address] Heather Siegel, [facility] [address] LEFT PM 03/02/25 [place] [address] Vitamin D deficiency Social History Tobacco Use Types Packs/Day Years Used Date Smoking Tobacco: Former Cigarettes 2 3 Smokeless Tobacco: Never Alcohol Use Standard Drinks/Week Comments No 0 (1 standard drink = 0.6 oz pur e alcohol) Comments No Sex and Gender Information Value Date Recorded Sex Assigned at Female 11/11/2022 10:42 PM EST Legal Sex Female 5:12 PM EDT Gender Identity Female 11/11/2022 10:42 PM EST Sexual Orientation Straight 11/11/2022 10 :42 PM EST documented as of this encounter Plan of Treatment Upcoming Encounters Date Type Department Care Team (Late st Contact Info) Description 04/03/2025 8:45 AM EDT Appointment Nani Crump [place] [facility] [address] [place] [phone] 04/09/2025 9:30 AM EDT Office Visit [facility] [address] [place] [phone] Michele Pearson, DO [address] [place] [address], [facility], [place] [address] 04/09/2025 10:00 AM EDT Telemedicine [facility] [address] [place] [phone] Claribel House LISW [address] [place] [phone] 04/29/2025 7:30 AM EDT Telemedicine [facility] [address] [place] [phone] Yashira Suazo APRN-SENIOR DATA ANALYST [address] [place] [address] 06/08/2025 10:00 AM EDT Clinical Support [facility] [address] [place] [address], [place] [phone] Michele Pearson, [address], [facility], [place] [address] documented as of this encounter Visit Diagnoses Diagnosis Vitamin D deficiency documented in this encounter Additional Health Concerns Infection Onset Date Last Indicated Resolved Time COVID-19 Positive 08/28/2021 08/28/2021 09/18/2021 11:12 PM EST Respiratory Rule-Out 11/11/2021 11/11/2021 022 3:07 PM EST COVID-19 Rule-Out 11/11/2021 11/11/2021 11/11/2021 3:25 PM EST Enteric Rule-Out 11/07/2023 11/07/2023 11/08/2023 12:29 AM EST Assessment Noted Time PHQ-9 Depression Total Score: 0 08/23/20 17 2:00 PM EST documented as of this encounter Care Teams Administrative Manager Relationship Specialty Start Date End Date Lori Thacker APRN-CNP [address] [place] [address], [place] [address] PCP - General Nurse Practitioner 10/08/23 Nikolas Parrish CNP Nurse Practitioner Family Medicine 11/24/22 documented as of this encounter
--- OUTSIDE RECORDS SUMMARY | 2025-04-01 09:21 | XMS_ITS | Encounter Summary ---
Author Organization [facility] [employer] [facility] tem Address [id number] [address] [place] [address] Care Team Providers Care Water And Gas Helper Name Role Phone Lori Thacker [facility] Primary Care Provider Reason for Visit * Reason Comments Med Refill Encounter Details Date Type Department Care Team (Late st Contact Info) Description 09/11/2017 Refill [facility] [address] [place] [address] [place] [phone] Heather Siegel, [facility] [address] LEFT PM 03/02/25 [place] [phone] Hypothyroidism, unspecified type; Fatigue, unspecified type; Gastroesophageal reflux disease without esophagitis Social History Tobacco Use Types Packs/Day Years [...] Encounters Date Type Department Care Team (Late Contact Info) Description 04/03/2025 8:45 AM EDT Appointment [facility] José Miguel Crump [place] [facility] [address] [place] [phone] 04/09/2025 9:30 AM EDT Office Visit [facility] [address] [place] [phone] Michele Pearsno, [address], [facility], [place] [address] 04/09/2025 10:00 AM EDT Telemedicine [facility] [address] [place] [phone] Claribel House LISW [address] [place] [phone] 04/29/2025 7:30 AM EDT Telemedicine [facility] [address] [place] [phone] Yashira Suazo, ANDREW-MANAGER INTEGRATED [address] [place] [address] 06/08/2025 10:00 AM EDT Clinical Support [facility] [address] [place] [address], [place] [phone] Michele Pearson, [address], [place] [address] documented as of this encounter Visit Diagnoses Diagnosis Hypothyroidism, unspecified type Fatigue, unspecified type Gastroesophageal reflux disease without esophagitis Esophageal reflux documented in this encounter Additional Health Concerns [...] documented as of this encounter Care Teams Water And Gas Helper Relationship Specialty Start Date End Date Lori Thacker APRN-DAVID [address] [place] [address], [facility] [phone] PCP - General Nurse Practitioner 10/08/23 Nikolas Parrish CNP Nurse Practitioner Family Medicine 11/24/22 documented as of this encounter
--- OUTSIDE RECORDS SUMMARY | 2025-04-01 09:21 | XMS_ITS | Encounter Summary ---
Author Organization [email or web address] s tem Address [facility][id number] [address] [place] [address] Care Team Providers Care Pe Manager Name Role Phone ThackerUyen hintondenver MORALES-UTILITY PIPE LAYER Primary Care Provider Encounter Details Date Type Department Care Team (Late st Contact Info) Description 11/19/2023 Telephone [facility] [address] [place] [address] Britney Escobar CMA Social History Tobacco Use Types Packs/Day Years Used Date Smoking Tobacco: Former Cigarettes 2 3 0 09/03/2010 - 09/03/2013 Smokeless Tobacco: Never Alcohol Use Standard Drinks/Week Comments No 0 (1 standard drink = 0.6 oz pur e alcohol) Overall Financial Resource Strain (CARDIA) Answe r Date Recorded How hard is it for you to pa y for the very basics like food, housing, medical care, and heating? Somewhat hard 10/05/2023 PHQ-2 Answer Date Recorded Total Score 14 10/08/2023 PRAPARE - Transportation Answer Date Re corded In the past 12 months, has l ack of transportation kept you from medical appointments or from getting medications? No 10/2023 In the past 12 months, has l ack of transportation kept you from meetings, work, or from getting things needed for daily living? No 10/05/2023 Housing Instability Answer Date Recorde d Are you worried or concerned that in the next two months you may not have stable housing that you own, rent or stay in as a part of a household? No 10/05/2023 Childcare Answer Date Recorded Childcare Unknown 02/11/2019 Employment Answer Date Recorded Employment Unknown 02/11/2019 Hunger Screening Answer Date Recorded Within the past 12 months we worried whether our food would run out before we got money to buy more. Never True 11/07/2023 Within the past 12 months th e food we bought just didn't last and we didn't have money to get more. Never True 11/07/2023 Purpose - Life Answer Date Recorded Purpose and direction in life Unknown Comments No Sex and Gender Information Value Date Recorded Sex Assigned at Female 11/11/2022 10:42 PM EST Legal Sex Female 5:12 PM EDT Gender Identity Female 11/11/2022 10:42 PM EST Sexual Orientation Straight 11/11/2022 10 :42 PM EST documented as of this encounter Miscellaneous Notes * Telephone Encounter - Britney Escobar CMA - 11/19/2023 10:18 AM EDT ----- Message from CHERRI Pelaez sent at 11/19/2023 9:33 AM EDT ----- Normal CTA chest. This states there are no masses visible. * Telephone Encounter - Britney Escobar CMA - 11/19/2023 10:18 AM EDT Patient was called and notified. She stated understanding and did not have any questions at this time documented in this encounter Plan of Treatment Upcoming Encounters Date Type Department Care Team (Late st Contact Info) Description 04/03/2025 8:45 AM EDT Appointment Nani Crump [place] [facility] [address] [place] [phone] 04/09/2025 9:30 AM EDT Office Visit [facility] [address] [place] [address] Michele Pearson, DO [address] [facility], [address], [place] [address] 04/09/2025 10:00 AM EDT Telemedicine [facility] [address] [place] [address], [place] [phone] Claribel House LISW [address] [facility] [place] [phone] 04/29/2025 7:30 AM EDT Telemedicine [facility] [address] [place] [address], [place] [phone] Yashira Suazo APRN-DAVID [address] [place] [address], [place] [address] 06/08/2025 10:00 AM EDT Clinical Support [facility] [address] [place] [phone] Michele Pearson, [address] [facility], [facility], [facility] D [place], [place] [phone] documented as of this encounter Visit Diagnoses Not on filedocumented in this encounter Additional Health Concerns Assessment Noted Time PHQ-9 Depression Total Score: 14 10/08/ 024 9:09 AM EST documented as of this encounter Care Teams Pe Manager Relationship Specialty Start Date End Date Lori Thacker APRN-CNP [address] [place] [phone] PCP - General Nurse Practitioner 10/08/23 Nikolas Parrish CNP Nurse Practitioner Family Medicine 11/24/22 documented as of this encounter
--- OUTSIDE RECORDS SUMMARY | 2025-04-01 09:22 | XMS_ITS | Encounter Summary ---
Author Organization [facility] [facility] tem Address [id number] [address] [place] [address] Care Team Providers Care Supervisor Stave Cutting Name Role Phone Lori Thacker ANDREW-SIZING SPONGER Primary Care Provider Encounter Details Date Type Department Care Team (Late st Contact Info) Description 02/12/2025 Orders Only [facility] [address] [facility] [place] [address] External, Scanning Provider Social History Tobacco Use Types Packs/Day Years [...] like food, housing, medical care, and heating? Not hard at all 09/01/2024 PHQ-2 Answer Date Recorded Total Score 17 03/26/2024 PRAPARE - Transportation Answer Date Re corded In the past 12 months, has l ack of transportation kept you from medical appointments or from getting medications? No 08/05 In the past 12 months, has l ack of transportation kept you from meetings, work, or from getting things needed for daily living? No 09/01/2024 Housing Instability Answer Date Recorde d Are you worried or concerned that in the next two months you may not have stable housing that you own, rent or stay in as a part of a household? No 09/01/2024 Childcare Answer Date Recorded Childcare Unknown 02/11/2019 Employment Answer Date Recorded Employment Unknown 02/11/2019 Hunger Screening Answer Date Recorded Within the past 12 months we worried whether our food would run out before we got money to buy more. Never True 12/25/2024 Within the past 12 months th e food we bought just didn't last and we didn't have money to get more. Never True 12/25/2024 Purpose - Life Answer Date Recorded Purpose [...] Upcoming Encounters Date Type Department Care Team ([facility] st Contact Info) Description 04/03/2025 8:45 AM EDT Appointment [facility] José Miguel Crump [place] - [facility] [address] [place] [phone] 04/09/2025 9:30 AM EDT Office Visit [facility] [address] [place] [address] [place] [phone] Michele Pearson, [address] [place] [address], [address], [address] [place], [place] [phone] 04/09/2025 10:00 AM EDT Telemedicine [facility] [address] [place] [phone] Claribel House LISW [address] [place] [phone] 04/29/2025 7:30 AM EDT Telemedicine [facility] [address] [place] [phone] Yashira Suazo APRN-SIZING SPONGER [address] [place] [address] 06/08/2025 10:00 AM EDT Clinical Support [facility] [address] [place] [address] Michele Pearson, [address] [facility], [facility] B, [place] [address] documented as of this encounter Procedures Procedure Name Priority Date/Time Associated Diagnosis Comments MULTIPLE LABS Routine 02/11/2025 9:17 AM EDT documented in this encounter Results * Multiple labs (02/11/2025 9:17 AM EDT) us Scanning Provider External [facility] Final Result MANUALLY TRANSCRIBED RESULTS documented in this encounter Visit Diagnoses Not on filedocumented in this encounter Additional Health Concerns Assessment Noted Time PHQ-9 Depression Total Score: 17 03/26/ 024 10:09 AM EDT documented as of this encounter Care Teams Supervisor Stave Cutting Relationship Specialty Start Date End Date Lori Thacker APRN-DAVID [address] [place] [address], [place] [address] PCP - General Nurse Practitioner 10/08/23 Nikolas Parrish CNP Nurse Practitioner Family Medicine 11/24/22 documented as of this encounter
--- OUTSIDE RECORDS SUMMARY | 2025-04-01 09:22 | XMS_ITS | Encounter Summary ---
Author Organization [facility] tem Address [id number] [address] [place] [address] Care Team Providers Care Cylinder Press Operator Name Role Phone Lori Thacker APRN-LUNCHROOM MOTHER Primary Care Provider Reason for Visit * Reason Onset Date Comments Med Refill 02/23/2024 Encounter Details Date Type Department Care Team (Late st Contact Info) Description 02/23/2024 Refill [facility] [address] [place] [phone] Lori Thacker APRN-CNP [address] [place], [place] [address] Social History Tobacco Use Types Packs/Day Years [...] 10/05/2023 PHQ-2 Answer Date Recorded Total Score 18 01/30/2024 PRAPARE - Transportation Answer Date Re corded [...] got money to buy more. Never True 11/28/2023 Within the past 12 months th e food we bought just didn't last and we didn't have money to get more. Never True 11/28/2023 Purpose - Life Answer Date Recorded Purpose [...] Info) Description 04/03/2025 8:45 AM EDT Appointment [facility] José Miguel Crump [place] [facility] [address] [place] [phone] 04/09/2025 9:30 AM EDT Office Visit [facility] [address] [place] [address] [place] [phone] Michele Pearson, [address] [place] [address], [address], [place] [address] 04/09/2025 10:00 AM EDT Telemedicine [facility] [address] [place] [phone] Claribel House LISW [address] [place] [phone] 04/29/2025 7:30 AM EDT Telemedicine [facility] [address] [place] [address] Yashira Suazo, 8TH GRADE TEACHER-LUNCHROOM MOTHER [address] [facility], [address] [address] 06/08/2025 10:00 AM EDT Clinical Support [facility] [address] [place] [phone] Michele Pearson DO [address] [place] [address], [facility], [place] [address] documented as of this encounter Visit Diagnoses Not on filedocumented in this encounter Additional Health Concerns Assessment Noted Time PHQ-9 Depression Total Score: 18 024 11:45 AM EDT documented as of this encounter Care Teams Cylinder Press Operator Relationship Specialty Start Date End Date Lori Thacker APRN-DAVID [address] [place] [phone] PCP - General Nurse Practitioner 10/08/23 Nikolas Parrish CNP Nurse Practitioner Family Medicine 11/24/22 documented as of this encounter
--- OUTSIDE RECORDS SUMMARY | 2025-04-01 09:22 | XMS_ITS | Encounter Summary ---
Author Organization [employer] tem Address [id number] [address] [place] [address] Care Team Providers Care Track Surfacing Machine Operator Name Role Phone ThackerUyen hintondenver MORALES-TANK SHOP SUPERVISOR Primary Care Provider Encounter Details Date Type Department Care Team (Late st Contact Info) Description 12/11/2023 Orders Only [facility] [address] [phone] Stephy Alston LPN Pulmonary infarct ([facility]-HCC) (Primary Dx); SOB (shortness of breath) Social History Tobacco Use Types Packs/Day Years [...] Info) Description 04/03/2025 8:45 AM EDT Appointment [facility] José Miguel Crump [place] - [facility] [address] [place] [phone] 04/09/2025 9:30 AM EDT [facility] [address] [place] [address] [place] [phone] Michele Pearson, [address] [place] [address], [facility] B, [place] [address] 04/09/2025 10:00 AM EDT Telemedicine [facility] [address] [place] [address], [place] [phone] Claribel House LISW [address] [place] [phone] 04/29/2025 7:30 AM EDT Telemedicine [facility] [address] [place] [address] [place] [address] Yashira Suazo, ENGINEERING PRODUCTION LIAISON-TANK SHOP SUPERVISOR [address] [place] [address], [place] [address] 06/08/2025 10:00 AM EDT Clinical Support [facility] [address] [place] [phone] [place] Michele Bing, DO [address] [place], [address] [place] [address] Scheduled Orders Name Type Priority Associated Diagnoses Orde r Schedule Pulmonary function test Complete PFT w/ BD (Spirometry (Flow Volume Loop) pre/post short acting bronchodilator w/ DLCO (diffusion study) and Lung Volume) PFT Routine Pulmonary infarct (CMS-HCC) 1 Occurrences starting 12/11/2023 until 12/10/2024 documented as of this encounter Results * X-ray chest 2 views (12/12/2023 10:57 AM EDT) Anatomical Region Laterality Modality Chest N/A Computed Radiogr aphy 12/12/2023 2:25 PM EDT Narrative 12/12/2023 2:25 PM EDT PA and lateral chest: HISTORY: Shortness of breath. 2 views of the chest are obtained. Lungs are clear. There is no consolidation or effusion. No pneumothorax. Osseous appear intact. Cardiac and mediastinal contours are unremarkable. IMPRESSION: No acute findings. Finalized by Tarun Rodríguez MD on 12/12/2023 2:25 PM Procedure Note Tarun Rodríguez MD - 12/12/2023 PA and lateral chest: HISTORY: Shortness of breath. 2 views of the chest are obtained. Lungs are clear. There is noconsolidation or effusion. No pneumothorax. Osseous appear intact. Cardiacand mediastinal contours are unremarkable. IMPRESSION: No acute findings. Finalized by aTrun Rodríguez MD on 12/12/2023 2:25 PM Dahlia Curtis MD IMG DIAGNOSTIC IMAGING ORDERAB LES Final Result documented in this encounter Visit Diagnoses Diagnosis Pulmonary infarct (CMS-HCC)- Primary Other pulmonary embolism and infarction SOB (shortness of breath) Shortness of breath SOB (shortness of breath) Shortness of breath documented in this encounter Additional Health Concerns Assessment Noted Time PHQ-9 Depression Total Score: 14 10/08/ 024 9:09 AM EST documented as of this encounter Care Teams Track Surfacing Machine Operator Relationship Specialty Start Date End Date Lori Thacker APRN-DAVID [address] [place] [address], [place] [address] PCP - General Nurse Practitioner 10/08/23 Nikolas Parrish CNP Nurse Practitioner Family Medicine 11/24/22 documented as of this encounter
--- OUTSIDE RECORDS SUMMARY | 2025-04-01 09:22 | XMS_ITS | Encounter Summary ---
Author Organization [facility] Sys tem Address [id number] [address] [place] [address] Care Team Providers Care Wool Shearing Supervisor Name Role Phone Lori Thacker APRN-FRYER OPERATOR Primary Care Provider Reason for Visit * Reason Onset Date Comments Med Refill 03/08/2024 Encounter Details Date Type Department Care Team (Late st Contact Info) Description 03/08/2024 Refill [facility] [address] [place] [phone] Lori Thacker APRN-CNP [address] [place], [place] [address] Social History Tobacco Use Types [...] Info) Description 04/03/2025 8:45 AM EDT Appointment [facility] José Miguel Crump [place] - [facility] [address] [place] [phone] 04/09/2025 9:30 AM EDT Office Visit [facility] [address] [place] [address] [place] [phone] Michele Pearson, [address] [place] [address], [address] [place] [address] 04/09/2025 10:00 AM EDT Telemedicine [facility] [address] [place] [address] Claribel House LISW [address] [place] [phone] 04/29/2025 7:30 AM EDT Telemedicine [facility] [address] [place] [address] Yashira Suazo, HIDE OR SKIN BUFFER-FRYER OPERATOR [address] [facility], [address] [address] 06/08/2025 10:00 AM EDT Clinical Support [facility] [address] [place] [phone] Michele Pearson DO [address] [place] [address], [facility] B, [place] [address] documented as of this encounter Visit Diagnoses Not on filedocumented in this encounter Additional Health Concerns Assessment Noted Time PHQ-9 Depression Total Score: 18 024 11:45 AM EDT documented as of this encounter Care Teams Wool Shearing Supervisor Relationship Specialty Start Date End Date Lori Thacker APRN-DAVID [address] [place] [phone] PCP - General Nurse Practitioner 10/08/23 Nikolas Parrish CNP Nurse Practitioner Family Medicine 11/24/22 documented as of this encounter
--- OUTSIDE RECORDS SUMMARY | 2025-04-01 09:22 | XMS_ITS | Encounter Summary ---
Author Organization [employer] Sys tem Address [facility] [id number] [address] [place] [address] Care Team Providers Care Athletic Instructor Name Role Phone Lori Thacker ANDREW-VAMP CREASER Primary Care Provider Encounter Details Date Type Department Care Team (Late st Contact Info) Description 03/27/2024 Orders Only [facility] [address] [place] [address] [address] [place] [address] Ref Prov, [place] [address] Social History Tobacco Use Types Packs/Day Years [...] 10/05/2023 PHQ-2 Answer Date Recorded Total Score 17 [...] got money to buy more. Never True 03/26/2024 Within the past 12 months th e food we bought just didn't last and we didn't have money to get more. Never True 03/26/2024 Purpose - Life Answer Date Recorded Purpose [...] Info) Description 04/03/2025 8:45 AM EDT Appointment [facility] [address] [place] [phone] 04/09/2025 9:30 AM EDT Office Visit [facility] [address] [place] [address] [place] [address] Michele Pearson, [address], [address], [place] [address] 04/09/2025 10:00 AM EDT Telemedicine [facility] [address] [place] [phone] Claribel House LISW [address] [place] [phone] 04/29/2025 7:30 AM EDT Telemedicine [facility] [address] [place] [phone] Yashira Suazo, CUTTING DEPARTMENT SUPERVISOR-VAMP CREASER [address] [place] [address] 06/08/2025 10:00 AM EDT Clinical Support [facility] [address] [place] [address] [address] Michele Pearson, [address] [place], [address], [place] [address] documented as of this encounter Procedures Procedure Name Priority Date/Time Associated Diagnosis Comments TSH Routine 03/27/2024 12:17 PM EDT documented in this encounter Results * TSH (03/27/2024 12:17 PM EDT) us Not In System Ref Prov LAB BLOOD ORDERABLES Nataliia l Result MANUALLY TRANSCRIBED RESULTS documented in this encounter Visit Diagnoses Not on filedocumented in this encounter Additional Health Concerns Assessment Noted Time PHQ-9 Depression Total Score: 17 024 10:09 AM EDT documented as of this encounter Care Teams Athletic Instructor Relationship Specialty Start Date End Date Lori Thacker APRN-DAVID [address], [place] [address] PCP - General Nurse Practitioner 10/08/23 Nikolas Parrish CNP Nurse Practitioner Family Medicine 11/24/22 documented as of this encounter
--- OUTSIDE RECORDS SUMMARY | 2025-04-01 09:22 | XMS_ITS | Encounter Summary ---
Author Organization [facility] Address [address] [place] [address] Care Team Providers Care Insect Control Inspector Name Role Phone Lori Thacker MD Primary Care Provider [phone] Encounter Details Date Type Department Care Team (Late st Contact Info) Description 04/24/2024 Abstract [facility] [address] [place] [phone] Dannie Dickinson DO [address] [facility] [address] Alexis Wilson, [facility]11 Social History Tobacco Use Types Packs/Day Years Used Date Smoking Tobacco: Former Cigarettes Q uit: 09/03/2012 Alcohol Use Standard Drinks/Week Comments Never 0 (1 standard drink = 0.6 oz pure alcohol) caffeine: more than 4 cups per day Comments No Sex and Gender Information Value Date Recorded Sex Assigned at Not on file Legal Sex Female 11:15 PM EDT Gender Identity Not on file Sexual Orientation Not on file documented as of this encounter Plan of Treatment Not on file documented as of this encounter Visit Diagnoses Not on filedocumented in this encounter Care Teams Insect Control Inspector Relationship Specialty Start Date End Date Lori Thacker MD PCP - General Family Medicine 02/27/24 documented as of this encounter
--- OUTSIDE RECORDS SUMMARY | 2025-04-01 09:22 | XMS_ITS | Encounter Summary ---
Author Organization [facility] tem Address [facility]-[id number] [address] [place] [address] Care Team Providers Care Platemaker Name Role Phone Lori Thacker APRN-WAREHOUSE SELECTOR Primary Care Provider Encounter Details Date Type Department Care Team (Late st Contact Info) Description 11/29/2023 [facility]phone [facility] [address] [facility] [place] [address] Lori Thacker APRN-CNP [address], [facility] [place] [address] Social History Tobacco Use Types [...] encounter Miscellaneous Notes * Telephone Encounter - rKistan Pichardo - 11/29/2023 11:[address] order for PFT & cx Thank You for everything you do documented in this encounter Plan of Treatment Upcoming Encounters Date Type Department Care Team ([facility] st Contact Info) Description 04/03/2025 8:45 AM EDT Appointment [facility] Cr[facility] [place] - [facility] Re[facility] [address] [place] [phone] 04/09/2025 9:30 AM EDT Office Visit [facility] [address] [place] [address] [place] [phone] Michele Pearson, 605 [facility], [address], [address] [place], [place] [phone] 04/09/2025 10:00 AM EDT Telemedicine [facility] [address] [place] [address] Claribel House LISW [address] [place] [address] 04/29/2025 7:30 AM EDT Telemedicine [facility] [address] [place] [address] [place] [phone] Yashira Suazo APRN-DAVID [address] [place] [address], [place] [address] 06/08/2025 10:00 AM EDT Clinical Support [facility] [address] [place] [phone] Michele Pearson, [address] [place] [address], [facility] B, [place], [place] [phone] documented as of this encounter Visit Diagnoses Not on filedocumented in this encounter Additional Health Concerns Assessment Noted Time PHQ-9 Depression Total Score: 14 024 9:09 AM EST documented as of this encounter Care Teams Platemaker Relationship Specialty Start Date End Date Lori Thacker APRN-WAREHOUSE SELECTOR [address] [place] [phone] PCP - General Nurse Practitioner 10/08/23 Nikolas Parrish CNP Nurse Practitioner Family Medicine 11/24/22 documented as of this encounter
--- OUTSIDE RECORDS SUMMARY | 2025-04-01 09:22 | XMS_ITS | Encounter Summary ---
Author Organization [employer] tem Address [facility][id number] [address] [place] [address] Care Team Providers Care Pattern Chain Builder Name Role Phone ThackerUyen hintondenver MORALES-WELDING MACHINE OPERATOR/TENDER Primary Care Provider Encounter Details Date Type Department Care Team (Late st Contact Info) Description 12/24/2023 Telephone [facility] [address] [place] [address] [address] Britney Escobar CMA Social History [...] Telephone Encounter - Britney Escobar CMA - 12/24/2023 2:13 PM EDT ----- Message from CHERRI Pelaez sent at 12/24/2023 2:05 PM EDT ----- Please let her know PAP and HPV are negative. * Telephone Encounter - Britney Escobar CMA - 12/24/2023 2:13 PM EDT Patient was called and given results. She stated understanding and did not have any questions at this time. At time of call she asked for a referral to [facility] to have a hysterectomy. * Telephone Encounter - CHERRI Pelaez - 12/24/2023 2:13 PM EDT Referral placed * Telephone Encounter - Britney Escobar CMA - 12/24/2023 2:13 PM EDT Patient was called and notified. documented in this encounter Plan of Treatment Upcoming Encounters Date Type Department Care Team (Late st Contact Info) Description 04/03/2025 8:45 AM EDT Appointment Nani José Miguel [facility] [place] - [facility] Re[facility] [address] [place] [address] 04/09/2025 9:30 AM EDT Office Visit [facility] [address] [place] [phone] Michele Pearson, [address], [facility] B, [place], [place] [phone] 04/09/2025 10:00 AM EDT Telemedicine [facility] [address] [place] [phone] Claribel House LISW [address] [place] [phone] 04/29/2025 7:30 AM EDT Telemedicine [facility] [address] [place] [phone] Yashira Suazo APRN-WELDING MACHINE OPERATOR/TENDER [address] [place] [address] 06/08/2025 10:00 AM EDT Clinical Support [facility] [address] [place] [phone] Michele Pearson, DO [address] [place] [address], [facility] B, [place], [place] [phone] documented as of this encounter Visit Diagnoses Not on filedocumented in this encounter Additional Health Concerns Assessment Noted Time PHQ-9 Depression Total Score: 14 024 9:09 AM EST documented as of this encounter Care Teams Pattern Chain Builder Relationship Specialty Start Date End Date ThackerLori hinton APRN-DAVID [address] [place] [address], [place] [address] PCP - General Nurse Practitioner 10/08/23 Nikolas Parrish CNP Nurse Practitioner Family Medicine 11/24/22 documented as of this encounter
--- OUTSIDE RECORDS SUMMARY | 2025-04-01 09:22 | XMS_ITS | Encounter Summary ---
Author Organization [facility] Sys tem Address [facility][id number] [address] [place] [address] Care Team Providers Care Combine Mechanic Name Role Phone Lori Thacker APRN-VICE PRESIDENT RISK MANAGEMENT Primary Care Provider Reason for Visit * Reason Onset Date Comments Med Refill 03/07/2024 Encounter Details Date Type Department Care Team (Late st Contact Info) Description 03/07/2024 Refill [facility] [address] [place] [phone] Lori Thacker APRN-CNP [address] [place], [place] [address] Social History Tobacco Use Types [...] Info) Description 04/03/2025 8:45 AM EDT Appointment [facility] José Miguel Crump [place] - [facility] Rehab [address] [place] [phone] 04/09/2025 9:30 AM EDT Office Visit [facility] [address] [place] [address] [place] [phone] Michele Pearson, [address] [place] [address], [address], [place] [address] 04/09/2025 10:00 AM EDT Telemedicine [facility] [address] [place] [address] Claribel House LISW [address] [place] [phone] 04/29/2025 7:30 AM EDT Telemedicine [facility] [address] [place] [address] Yashira Suazo, GLUE BONE DRIER-VICE PRESIDENT RISK MANAGEMENT [address] [facility], [address] [address] 06/08/2025 10:00 AM EDT Clinical Support [facility] [address] [place] [phone] Michele Pearson DO [address] [place] [address], [facility] B, [place] [address] documented as of this encounter Visit Diagnoses Not on filedocumented in this encounter Additional Health Concerns Assessment Noted Time PHQ-9 Depression Total Score: 18 024 11:45 AM EDT documented as of this encounter Care Teams Combine Mechanic Relationship Specialty Start Date End Date Lori Thacker APRN-DAVID [address] [place] [phone] PCP - General Nurse Practitioner 10/08/23 Nikolas Parrish CNP Nurse Practitioner Family Medicine 11/24/22 documented as of this encounter
--- OUTSIDE RECORDS SUMMARY | 2025-04-01 09:22 | XMS_ITS | Encounter Summary ---
Author Organization [facility] [employer] [facility] tem Address [id number] [address] [place] [address] Care Team Providers Care Sales Teacher Name Role Phone Lori Thacker ANDREW-POLICE MAGISTRATE Primary Care Provider Encounter Details Date Type Department Care Team (Late Contact Info) Description 01/17/2022 Telephone [facility] [address] [place] [phone] Va Abreu, LENA Social History Tobacco Use Types Packs/Day Years Used Date Smoking Tobacco: Former Cigarettes 2 3 2 011 - 2013 Smokeless Tobacco: Never Alcohol Use Standard Drinks/Week Comments No 0 (1 standard drink = 0.6 oz pur e alcohol) Childcare Answer Date Recorded Childcare Unknown 02/11/2019 Employment Answer Date Recorded Employment Unknown 02/11/2019 Purpose - Life Answer Date Recorded Purpose and direction in life Unknown Comments No Sex and Gender Information Value Date Recorded Sex Assigned at Female 11/11/2022 10:42 PM EST Legal Sex Female 5:12 PM EDT Gender Identity Female 11/11/2022 10:42 PM EST Sexual Orientation Straight 11/11/2022 10 :42 PM EST COVID-19 Exposure Response Date Recorded In the last 10 days, have yo u been in contact with someone who was confirmed or suspected to have Coronavirus/COVID-19? No / Unsure 01/18/2022 1:05 PM EDT documented as of this encounter Plan of Treatment Upcoming Encounters Date Type Department Care Team (Late Contact Info) Description 04/03/2025 8:45 AM EDT Appointment [facility] [place] [facility] [address] [place] [address] 04/09/2025 9:30 AM EDT Office Visit [facility] [address] [place] [phone] Michele Pearson, DO [address] [place] [address], [facility] B, [place] [address] 04/09/2025 10:00 AM EDT Telemedicine [facility] [address] [place] [phone] Claribel House LISW [address] [place] [phone] 04/29/2025 7:30 AM EDT Telemedicine [facility] [address] [place] [phone] Yashira Suazo APRN-DAVID [address] [place] [address] 06/08/2025 10:00 AM EDT Clinical Support [facility] [address] [place] [phone] Michele Pearson, DO [address] [place] [address], [place] [address] documented as of this encounter Visit Diagnoses Not on filedocumented in this encounter Additional Health Concerns Infection Onset Date Last Indicated Resolved Time Enteric Rule-Out 11/07/2023 11/07/2023 11/08/2023 12:29 AM EST Assessment Noted Time PHQ-9 Depression Total Score: 0 08/23/20 17 2:00 PM EST documented as of this encounter Care Teams Sales Teacher Relationship Specialty Start Date End Date Lori Thacker APRN-POLICE MAGISTRATE [address] [place] [address], [place] [phone] PCP - General Nurse Practitioner 10/08/23 Nikolas Parrish CNP Nurse Practitioner Family Medicine 11/24/22 documented as of this encounter
--- OUTSIDE RECORDS SUMMARY | 2025-04-01 09:22 | XMS_ITS | Encounter Summary ---
Author Organization [facility] Sys tem Address [facility][id number] [address] [place] [address] Care Team Providers Care Dynamite Reclaimer Name Role Phone Lori Thacker DIRECTOR CUSTOMER-TRACTOR OPERATOR LASER LEVELING Primary Care Provider Reason for Visit * Reason Onset Date Comments Med Refill 03/18/2024 Encounter Details Date Type Department Care Team (Late st Contact Info) Description 03/18/2024 Refill [facility] [address] [place] [address] Lori Thacker APRN-CNP [address] [place], [place] [address] Type 2 diabetes mellitus with other specified complication, unspecified whether nursing home insulin use ([facility]) Social History Tobacco Use Types Packs/Day Years [...] Info) Description 04/03/2025 8:45 AM EDT Appointment [facility] José Miguel Crump [place] - [facility] Rehab [address] [place] [phone] 04/09/2025 9:30 AM EDT Office Visit [facility] [address] [place] [address] [place] [phone] Michele Pearson, [address] [place] [address], [facility] B, [place] [address] 04/09/2025 10:00 AM EDT Telemedicine [facility] [address] [place] [address] Claribel House LISW [address] [place] [address] 04/29/2025 7:30 AM EDT Telemedicine [facility] [address] [place] [address] [place] [address] Yashira Suazo, DIRECTOR CUSTOMER-TRACTOR OPERATOR LASER LEVELING [address] [place] [address], [place] [address] 06/08/2025 10:00 AM EDT Clinical Support [facility] [address] [place] [address] [place] [address] Michele Pearson, 605 [facility], [address], [facility] [place] [address] documented as of this encounter Visit Diagnoses Diagnosis Type 2 diabetes mellitus with other specified complication, unspecified whether terminal gauger supervisor insulin use ([facility]) documented in this encounter Additional Health Concerns Assessment Noted Time PHQ-9 Depression Total Score: 18 024 11:45 AM EDT documented as of this encounter Care Teams Dynamite Reclaimer Relationship Specialty Start Date End Date Lori Thacker APRN-TRACTOR OPERATOR LASER LEVELING [address] [place] [phone] PCP - General Nurse Practitioner 10/08/23 Nikolas Parrish CNP Nurse Practitioner Family Medicine 11/24/22 documented as of this encounter
--- OUTSIDE RECORDS SUMMARY | 2025-04-01 09:22 | XMS_ITS | Encounter Summary ---
Author Organization [facility] Address [address] [place] [address] Care Team Providers Care Slitting Machine Operator Helper Name Role Phone Lori Thacker MD Primary Care Provider [phone] Encounter Details Date Type Department Care Team (Late st Contact Info) Description 04/21/2024 Abstract [facility] [address] [facility] [place] [phone] Dannie Dickinson DO [address] [facility] [address] Alexis Wilson, [facility]11 Social History Tobacco Use Types Packs/Day Years [...] on filedocumented in this encounter Care Teams Slitting Machine Operator Helper Relationship Specialty Start Date End Date Lori Thacker MD PCP - General Family Medicine 02/27/24 documented as of this encounter
--- OUTSIDE RECORDS SUMMARY | 2025-04-01 09:22 | XMS_ITS | Encounter Summary ---
Author Organization [facility] [facility] tem Address [id number] [address] [place] [address] Care Team Providers Care Supervisor Kosher Dietary Service Name Role Phone Lori Thacker APRN-PUBLIC SCHOOL TEACHER Primary Care Provider Encounter Details Date Type Department Care Team (Late Contact Info) Description 01/16/2022 Telephone [facility] [address] [place] [address] [place] [address] Va Abreu, RN Social History Tobacco Use Types Packs/Day Years Used Date Smoking Tobacco: Former Cigarettes 2 3 2 011 - 2014 Smokeless Tobacco: Never Alcohol Use Standard Drinks/Week [...] 04/03/2025 8:45 AM EDT Appointment Nani Crump [place] - [facility] Rehab [address] [place] [address] 04/09/2025 9:30 AM EDT Office Visit [facility] [address] [place] [phone] Michele Pearson, DO [address] [place] [address], [address], [place] [address] 04/09/2025 10:00 AM EDT Telemedicine [facility] [address] [place] [address], [place] [phone] Claribel House LISW [address] [place] [phone] 04/29/2025 7:30 AM EDT Telemedicine [facility] [address] [place] [phone] aYshira Suazo APRN-DAVID [address] [place] [address] 06/08/2025 10:00 AM EDT Clinical Support [facility] [address] [place] [phone] Michele Pearson, [address] [place] [address], [facility] B, [place], [place] [phone] documented as of this encounter Visit Diagnoses Not on filedocumented in this encounter Additional Health Concerns Infection Onset Date Last Indicated Resolved Time Enteric Rule-Out 11/07/2023 11/07/2023 11/08/2023 12:29 AM EST Assessment Noted Time PHQ-9 Depression Total Score: 0 08/23/20 17 2:00 PM EST documented as of this encounter Care Teams Supervisor Kosher Dietary Service Relationship Specialty Start Date End Date Lori Thacker APRN-CNP [address] [place] [phone] PCP - General Nurse Practitioner 10/08/23 Nikolas Parrish CNP Nurse Practitioner Family Medicine 11/24/22 documented as of this encounter
--- OUTSIDE RECORDS SUMMARY | 2025-04-01 09:22 | XMS_ITS | Clinical Summary ---
Author Organization [facility] Address [address] [place] [address] Care Team Providers Care Data Integrity Consultant Name Role Phone Lori Thacker MD Primary Care Provider [phone] Allergies Active Allergy Reactions Criticality Noted Date Comments Allopurinol High 05/12/2020 Cefaclor Hives,Rash High 04/28/2013 Other Reaction(s): hives, Not available, Other (See Comments), Unknown Other reaction(s): Other (See Comments) Other reaction(s): hives Other reaction(s): Other (See Comments) Other Reaction(s): Not available, Other (See Comments), Unknown Cephalosporins 06/13/2022 Other Reaction(s): Unknown Estrogens High 01/28/2015 Other Reaction(s): blood clots with all hormones, Other (See Comments), Unknown Blood clots with all hormones Blood clots with all hormones Other reaction(s): Unknown Other reaction(s): blood clots with all hormones Other Reaction(s): Other (See Comments), Unknown Other Rash Low 02/29/2016 kory Penicillin V Rash Low 02/14/2013 Penicillins Hives,Rash High 02/14/2013 Other Reaction(s): hives, Not available, Unknown Other reaction(s): hives Other Reaction(s): Not available Pertussis Vaccines 04/24/2018 Other Reaction(s): Unknown Sulfa Antibiotics Hives High 09/03/2019 Other Reaction(s): Unknown Sulfamethoxazole-Trimethopri m Rash Low 06/16/2016 Other Reaction(s): Not available, Unknown Other reaction(s): Unknown Tetanus-Diphtheria Toxoids Td 02/29/2016 Trimethoprim Hives 01/31/2022 Medications ARIPiprazole (Abilify) 5 MG tablet 1 (one) time each day at the same time. Active atomoxetine (Strattera) 60 MG capsule Take 60 mg by mouth in the morning. Active cefdinir (Omnicef) 300 MG capsule Take 300 mg by mouth. Active Enoxaparin Sodium 150 MG/ML solution prefilled syringe 3 Active gabapentin (Neurontin) 300 MG capsule Take 300 mg by mouth in the morning and 300 mg at noon and 300 mg in the evening. Active HYDROcodone-acet aminophen (Limon) 5-325 MG tablet Take 1 tablet by mouth in the morning and 1 tablet in the evening. Active hydrOXYzine HCl (Atarax) 25 MG tablet Take 1 tablet 3 times a day by oral route. Active [employer] Pen [place] 32G X 4 MM misc 3 Active isosorbide mononitrate ER (Imdur) 30 MG 24 hr tablet 1 (one) time each day at the same time. Active lamoTRIgine (LaMICtal) 100 MG tablet 1 (one) time each day at the same time. Active Victoza 18 MG/3ML injection 1 (one) time each day at the same time. 3 Active lisinopril 10 MG tablet Take 1 tablet by mouth in the morning. Active metoprolol tartrate (Lopressor) 25 MG tablet Take 25 mg by mouth in the morning and 25 mg in the evening. Active omeprazole (PriLOSEC) [address] capsule Take 20 mg by mouth in the morning. Active Nurtec 75 MG tablet dispersible 1 tablet on the tongue and allow to dissolve Orally Active spironolactone (Aldactone) 25 MG tablet 1 (one) time each day at the same time. Active hydroCHLOROthiaz prateek (HYDRODiuril) 25 MG tablet 1 (one) time each day at the same time Active minocycline 100 MG capsule 4 Active Cosentyx UnoReady 300 MG/2ML solution auto-injector 4 Active spironolactone (Aldactone) 50 MG tabletIndication s:Hydradenitis Take 1 tablet (50 mg) by mouth Daily 30 tablet 4 Active levothyroxine (Synthroid, Levoxyl) 50 MCG tablet Take 50 mcg by mouth in the morning. Active Active Problems No known active problems Family History Medical History Relation Name Comments Cancer Father Hyperlipidemia Father Diabetes Mother Gout Mother Heart disease Mother Lupus Mother Relation Name Status Comments Brother 1 Father Alive Mother Sister 1 Social History Tobacco Use Types Packs/Day Years Used Date Smoking Tobacco: Former Cigarettes Q uit: 09/03/2012 Tobacco Cessation:Counseling Given: Not Answered Alcohol Use Standard Drinks/Week Comments Never 0 (1 standard drink = 0.6 oz pure alcohol) caffeine: more than 4 cups per day Comments No Sex and Gender Information Value Date Recorded Sex Assigned at Not on file Legal Sex Female 11:15 PM EDT Gender Identity Not on file Sexual Orientation Not on file Last Filed Vital Signs Vital Sign Reading Time Taken Comments Blood Pressure 126/82 04/08/2024 1:24 PM EDT Pulse - - Temperature - - Respiratory Rate - - Oxygen Saturation - - Inhaled Oxygen Concentration - - Weight 161 kg (354 lb 6.4 oz) 04/08/2024 1:24 PM EDT Height 165.1 cm (5' 5 ) 05/09/2022 12:00 PM EDT Body Mass Index 58.98 05/09/2022 12:00 PM EDT Plan of Treatment Not on file Insurance MEDICARE [place]ICAID [place] Care Teams Data Integrity Consultant Relationship Specialty Start Date End Date Lori Thacker MD PCP - General Family Medicine 02/27/24
--- OUTSIDE RECORDS SUMMARY | 2025-04-01 09:22 | XMS_ITS | Encounter Summary ---
Author Organization [facility] tem Address [facility]-[id number] [address] [place] [address] Care Team Providers Care Housing Management Representative Name Role Phone Lori Thacker APRN-MOLDER HAND Primary Care Provider Encounter Details Date Type Department Care Team (Late st Contact Info) Description 12/14/2023 Documentation [facility] [address] [place] [address] Lori Thacker APRN-CNP [address], [facility] [place] [address] Social History Tobacco Use Types [...] Info) Description 04/03/2025 8:45 AM EDT Appointment [facility] José Miguel Crump [place] - [facility] [address] [place] [phone] 04/09/2025 9:30 AM EDT Office Visit [facility] [address] [place] [address] [place] [phone] Michele Pearson, [address] [facility], [facility] [address], [place] [address] 04/09/2025 10:00 AM EDT Telemedicine [facility] [address] [place] [phone] Claribel House LISW [address] [place] [address] 04/29/2025 7:30 AM EDT Telemedicine [facility] [address] [place] [address] Yashira Suazo, FIELD SUPPORT ENGINEER-MOLDER HAND [address] [facility], [address] [address] 06/08/2025 10:00 AM EDT Clinical Support [facility] [address] [place] [address] [place] [address] Michele Pearson, 605 [facility], [facility] B, [facility] [place] [address] documented as of this encounter Visit Diagnoses Not on filedocumented in this encounter Additional Health Concerns Assessment Noted Time PHQ-9 Depression Total Score: 14 024 9:09 AM EST documented as of this encounter Care Teams Housing Management Representative Relationship Specialty Start Date End Date Lori Thacker APRN-DAVID [address] [place] [address], [place] [address] PCP - General Nurse Practitioner 10/08/23 Nikolas Parrish CNP Nurse Practitioner Family Medicine 11/24/22 documented as of this encounter
--- OUTSIDE RECORDS SUMMARY | 2025-04-01 09:22 | XMS_ITS | Encounter Summary ---
Author Organization [facility] Address [id number] [address] [place] [address] Care Team Providers Care Tool Grinding Machine Operator Name Role Phone Lori Thacker APRN-STEM FRAZER Primary Care Provider Reason for Visit * Reason Onset Date Comments Med Refill 02/16/2024 Encounter Details Date Type Department Care Team (Late st Contact Info) Description 02/16/2024 Refill [facility] [address] [place] [phone] Lori Thacker APRN-CNP [address] [place], [place] [address] Social History Tobacco Use Types [...] Info) Description 04/03/2025 8:45 AM EDT Appointment [facility] José Miguel Crump [place] - Total Rehab [address] [place] [phone] 04/09/2025 9:30 AM EDT Office Visit [facility] [address] [place] [address] [place] [phone] Michele Pearson, [address] [place] [address], [address], [place] [address] 04/09/2025 10:00 AM EDT Telemedicine [facility] [address] [place] [address] Claribel House LISW [address] [place] [phone] 04/29/2025 7:30 AM EDT Telemedicine [facility] [address] [place] [address] Yashira Suazo, CERTIFIED MASTER SAFECRACKER-STEM FRAZER [address] [facility], [address] [address] 06/08/2025 10:00 AM EDT Clinical Support [facility] [address] [place] [phone] Michele Pearson DO [address] [place] [address], [facility] B, [place] [address] documented as of this encounter Visit Diagnoses Not on filedocumented in this encounter Additional Health Concerns Assessment Noted Time PHQ-9 Depression Total Score: 18 024 11:45 AM EDT documented as of this encounter Care Teams Tool Grinding Machine Operator Relationship Specialty Start Date End Date Lori Thacker APRN-DAVID [address] [place] [phone] PCP - General Nurse Practitioner 10/08/23 Nikolas Parrish CNP Nurse Practitioner Family Medicine 11/24/22 documented as of this encounter
--- OUTSIDE RECORDS SUMMARY | 2025-04-01 09:22 | XMS_ITS | Encounter Summary ---
Author Organization [employer] [facility] Address [facility]-[id number] [address] [place] [address] Care Team Providers Care Elderly Sitter Name Role Phone Lori Thacker APRN-MANAGER WORKERS COMPENSATION Primary Care Provider Encounter Details Date Type Department Care Team (Late st Contact Info) Description 10/29/2021 Orders Only [facility] [address] [place] [phone] Transcribe, Orders Support User Pain (Primary Dx) Social History Tobacco Use Types Packs/Day Years [...] Exposure Response Date Recorded In the last month, have you been in contact with someone who was confirmed or suspected to have Coronavirus / COVID-19? No / Unsure 10/31/2021 9:24 AM EST documented as of this encounter Functional Status documented as of this encounter Mental Status * Question Answer Entry Date Author Overall Cognitive Status WFL 10/30/2021 8:40 AM EST Bruna La OTR/L documented in this encounter Plan of Treatment Upcoming Encounters Date Type Department Care Team (Late st Contact Info) Description 04/03/2025 8:45 AM EDT [facility]ment [facility] José Miguel Crump [place] - Total Rehab [address] [place] [phone] 04/09/2025 9:30 AM EDT Office Visit [facility] [address] [place] [phone] Michele Pearson, [address], [place], [place] [phone] 04/09/2025 10:00 AM EDT Telemedicine [facility] [address] [place] [phone] Claribel House LISW [address] [place] [phone] 04/29/2025 7:30 AM EDT Telemedicine [facility] [address] [place] [phone] Yashira Suazo APRN-MANAGER WORKERS COMPENSATION [address] [place] [address] 06/08/2025 10:00 AM EDT Clinical Support [facility] [address] [place] [phone] Michele Pearson, [address], [place], [place] [phone] documented as of this encounter Results * CT angiogram chest (10/28/2021 12:35 PM EST) us Scanning Provider External IMG CT ORDERABLES Fin al Result documented in this encounter Visit Diagnoses Diagnosis Pain- Primary Generalized pain documented in this encounter Additional Health Concerns Infection Onset Date Last Indicated Resolved Time Respiratory Rule-Out 11/11/2021 11/11/2021 022 3:07 PM EST COVID-19 Rule-Out 11/11/2021 11/11/2021 11/11/2021 3:25 PM EST Enteric Rule-Out 11/07/2023 11/07/2023 11/08/2023 12:29 AM EST Assessment Noted Time PHQ-9 Depression Total Score: 0 08/23/20 17 2:00 PM EST documented as of this encounter Care Teams Elderly Sitter Relationship Specialty Start Date End Date Lori Thacker APRN-DAVID [address] [place] [address], [facility] [place] [address] PCP - General Nurse Practitioner 10/08/23 Nikolas Parrish CNP Nurse Practitioner Family Medicine 11/24/22 documented as of this encounter
--- OUTSIDE RECORDS SUMMARY | 2025-04-01 09:22 | XMS_ITS | Encounter Summary ---
Author Organization [facility] Address [facility] [place][id number] [address] [place] [address] Care Team Providers Care Carbon Electrodes Supervisor Name Role Phone Lori Thacker APRN-FINANCIAL OPERATIONS ANALYST Primary Care Provider Encounter Details Date Type Department Care Team (Late st Contact Info) Description 03/26/2025 [facility]phone [facility] [address] [facility] [place] [address] Lori Thacker APRN-CNP [address], [facility] [place] [address] Social History Tobacco Use Types [...] 09/01/2024 PHQ-2 Answer Date Recorded Total Score 0 03/12/2025 PRAPARE - Transportation Answer Date Re corded [...] got money to buy more. Never True 03/12/2025 Within the past 12 months th e food we bought just didn't last and we didn't have money to get more. Never True 03/12/2025 Purpose - Life Answer Date Recorded Purpose and direction in life Unknown Comments No Sex and Gender Information Value Date Recorded Sex Assigned at Female 11/11/2022 10:42 PM EST Legal Sex Female 5:12 PM EDT Gender Identity Female 11/11/2022 10:42 PM EST Sexual Orientation Straight 11/11/2022 10 :42 PM EST documented as of this encounter Miscellaneous Notes * Telephone Encounter - Areli Franklin - 03/26/2025 11:02 AM EDT Patient presented to lead front desk agent to machine operator picker a letter for her daughter. While here, patient said her blood sugar was into the 300s this morning without anything to eat or drink. She expressed that she is feeling drunk and super out of it. Patient was recommended to be evaluated at the ER. documented in this encounter Plan of Treatment Upcoming Encounters Date Type Department Care Team (Late st Contact Info) Description 04/03/2025 8:45 AM EDT Appointment [facility] [address] [place] [address] 04/09/2025 9:30 AM EDT Office Visit [facility] [address] [place] [address] Michele Pearson, 605 [facility], [address], [address] [place], [place] [phone] 04/09/2025 10:00 AM EDT Telemedicine [facility] [address] [place] [address] [facility] [place] [place] [phone] Claribel House LISW [address] [place] [address] 04/29/2025 7:30 AM EDT Telemedicine [facility] [address] [place] [address] [facility] [place] [phone] Yashira Suazo, DISPENSING OPTICIAN APPRENTICE-FINANCIAL OPERATIONS ANALYST [address] [facility], [place] [address] 06/08/2025 10:00 AM EDT Clinical Support [facility] [address] [place] [address] [place] [phone] Michele Pearson, 605 [facility], [facility] B, [facility] [address] [place], [place] [phone] documented as of this encounter Visit Diagnoses Not on filedocumented in this encounter Additional Health Concerns Assessment Noted Time PHQ-9 Depression Total Score: 0 03/12/20 7:45 AM EDT documented as of this encounter Care Teams Carbon Electrodes Supervisor Relationship Specialty Start Date End Date Lori Thacker APRN-DAVID [address] [place] [phone] PCP - General Nurse Practitioner 10/08/23 Nikolas Parrish CNP Nurse Practitioner Family Medicine 11/24/22 documented as of this encounter
--- OUTSIDE RECORDS SUMMARY | 2025-04-01 09:22 | XMS_ITS | Encounter Summary ---
Author Organization [facility] Address [address] [place] [address] Care Team Providers Care Underwater Hunter Trapper Name Role Phone Lori Thacker MD Primary Care Provider [phone] Encounter Details Date Type Department Care Team (Late st Contact Info) Description 06/19/2023 Abstract [facility] [address] [facility] [place] [address] Cecilia Gutierrez APRN-TENSION WORKER [address] [facility] [address] [place] [address] Social History Tobacco Use Types Packs/Day Years Used Date Smoking Tobacco: Former Cigarettes Q uit: 09/03/2012 Tobacco Cessation:Counseling Given: Not Answered Alcohol Use Standard Drinks/Week Comments Never 0 (1 standard drink = 0.6 oz pure alcohol) caffeine: more than 4 cups per day Comments Unknown Sex and Gender Information Value Date Recorded Sex Assigned at Not on file Legal Sex Female 11:15 PM EDT Gender Identity Not on file Sexual Orientation Not on file documented as of this encounter Plan of Treatment Not on file documented as of this encounter Visit Diagnoses Not on filedocumented in this encounter Care Teams Underwater Hunter Trapper Relationship Specialty Start Date End Date Lori Thacker MD PCP - General Family Medicine 02/27/24 documented as of this encounter
--- OUTSIDE RECORDS SUMMARY | 2025-04-01 09:22 | XMS_ITS | Encounter Summary ---
Author Organization [facility] Address [address] [place] [address] Care Team Providers Care Technology Teacher Name Role Phone Lori Thacker MD Primary Care Provider [phone] Encounter Details Date Type Department Care Team (Late st Contact Info) Description 03/11/2024 Abstract [facility] [address] [facility] [phone] Dannie Dickinson DO [address] [facility] [address] Alexis Wilson, [facility] Social History Tobacco Use Types [...] on filedocumented in this encounter Care Teams Technology Teacher Relationship Specialty Start Date End Date Lori Thacker MD PCP - General Family Medicine 02/27/24 documented as of this encounter
--- OUTSIDE RECORDS SUMMARY | 2025-04-01 09:22 | XMS_ITS | Encounter Summary ---
Author Organization [facility] Address [facility][id number] [address] [place] [address] Care Team Providers Care Red Mud Thickener Operator Name Role Phone Lori Thacker APRN-STREET DEPARTMENT DISPATCHER Primary Care Provider Reason for Visit * Reason Onset Date Comments Med Refill 03/15/2024 Encounter Details Date Type Department Care Team (Late st Contact Info) Description 03/15/2024 Refill [facility] [address] [place] [phone] Lori Thacker APRN-CNP [address] [place], [place] [address] Social History Tobacco Use Types [...] Info) Description 04/03/2025 8:45 AM EDT Appointment [facility] José Miguel Crump [place] - Total Rehab [address] [place] [phone] 04/09/2025 9:30 AM EDT Office Visit [facility] [address] [place] [address] [place] [phone] Michele Pearson, [address] [place] [address], [address], [place] [address] 04/09/2025 10:00 AM EDT Telemedicine [facility] [address] [place] [address] Claribel House LISW [address] [place] [phone] 04/29/2025 7:30 AM EDT Telemedicine [facility] [address] [place] [address] Yashira Suazo, ORTHOPEDIC ASSISTANT-STREET DEPARTMENT DISPATCHER [address] [facility], [address] [address] 06/08/2025 10:00 AM EDT Clinical Support [facility] [address] [place] [phone] Michele Pearson DO [address] [place] [address], [facility] B, [place] [address] documented as of this encounter Visit Diagnoses Not on filedocumented in this encounter Additional Health Concerns Assessment Noted Time PHQ-9 Depression Total Score: 18 024 11:45 AM EDT documented as of this encounter Care Teams Red Mud Thickener Operator Relationship Specialty Start Date End Date Lori Thacker APRN-DAVID [address] [place] [phone] PCP - General Nurse Practitioner 10/08/23 Nikolas Parrish CNP Nurse Practitioner Family Medicine 11/24/22 documented as of this encounter
--- OUTSIDE RECORDS SUMMARY | 2025-04-01 09:22 | XMS_ITS | Encounter Summary ---
Author Organization [facility] Address [address] [place] [address] Care Team Providers Care Traffic Superintendent Name Role Phone Lori Thacker MD Primary Care Provider [phone] Encounter Details Date Type Department Care Team (Late st Contact Info) Description 04/17/2024 Abstract [facility] [address] [phone] Sima Parsons LPN 102 [place] [address] Social History Tobacco Use Types Packs/Day Years [...] on filedocumented in this encounter Care Teams Traffic Superintendent Relationship Specialty Start Date End Date Lori Thacker MD PCP - General Family Medicine 02/27/24 documented as of this encounter
--- OUTSIDE RECORDS SUMMARY | 2025-04-01 09:22 | XMS_ITS | Encounter Summary ---
Author Organization [facility] Address [facility]-[id number] [address] [place] [address] Care Team Providers Care Manager Agricultural Name Role Phone Lori Thacker APRN-SWIM COACH Primary Care Provider Reason for Visit * Reason Onset Date Comments Med Refill 03/15/2024 Encounter Details Date Type Department Care Team (Late st Contact Info) Description 03/15/2024 Refill [facility] [address] [place] [phone] Lori Thacker APRN-CNP [address] [place], [place] [address] Social History Tobacco Use Types [...] Info) Description 04/03/2025 8:45 AM EDT Appointment [facility] José Miguel Crump [place] - Total Rehab [address] [place] [phone] 04/09/2025 9:30 AM EDT Office Visit [facility] [address] [place] [address] [place] [phone] Michele Pearson, [address] [place] [address], [address], [place] [address] 04/09/2025 10:00 AM EDT Telemedicine [facility] [address] [place] [address] Claribel House LISW [address] [place] [phone] 04/29/2025 7:30 AM EDT Telemedicine [facility] [address] [place] [address] Yashira Suazo, SUPERVISOR HEAT TREATING-SWIM COACH [address]00 [facility], [address] [address] 06/08/2025 10:00 AM EDT Clinical Support [facility] [address] [place] [phone] Michele Pearson DO [address] [place] [address], [facility] B, [place] [address] documented as of this encounter Visit Diagnoses Not on filedocumented in this encounter Additional Health Concerns Assessment Noted Time PHQ-9 Depression Total Score: 18 024 11:45 AM EDT documented as of this encounter Care Teams Manager Agricultural Relationship Specialty Start Date End Date Lori Thacker APRN-DAVID [address] [place] [phone] PCP - General Nurse Practitioner 10/08/23 Nikolas Parrish CNP Nurse Practitioner Family Medicine 11/24/22 documented as of this encounter
--- OUTSIDE RECORDS SUMMARY | 2025-04-01 09:22 | XMS_ITS | Encounter Summary ---
Author Organization [facility] Address [id number] [address] [place] [address] Care Team Providers Care Design Agent Name Role Phone Lori Thacker APRN-PRODUCT ENGINEER Primary Care Provider Reason for Visit * Reason Onset Date Comments Med Refill 03/12/2024 Encounter Details Date Type Department Care Team (Late st Contact Info) Description 03/12/2024 Refill [facility] [address] [place] [phone] Lori Thacker APRN-CNP [address] [place], [place] [address] Social History Tobacco Use Types [...] Info) Description 04/03/2025 8:45 AM EDT Appointment [facility] José Miguel Crump [place] - [facility] Rehab [address] [place] [phone] 04/09/2025 9:30 AM EDT Office Visit [facility] [address] [place] [address] [place] [phone] Michele Pearson, [address] [place] [address], [address], [place] [address] 04/09/2025 10:00 AM EDT Telemedicine [facility] [address] [place] [address] Claribel House L[address] [place] [phone] 04/29/2025 7:30 AM EDT Telemedicine [facility] [address] [place] [address] Yashira Suazo, KITCHEN MECHANIC-PRODUCT ENGINEER [address] [facility], [address] [address] 06/08/2025 10:00 AM EDT Clinical Support [facility] [address] [place] [phone] Michele Pearson DO [address] [place] [address], [facility], [place] [address] documented as of this encounter Visit Diagnoses Not on filedocumented in this encounter Additional Health Concerns Assessment Noted Time PHQ-9 Depression Total Score: 18 024 11:45 AM EDT documented as of this encounter Care Teams Design Agent Relationship Specialty Start Date End Date Lori Thacker APRN-DAVID [address] [place] [phone] PCP - General Nurse Practitioner 10/08/23 Nikolas Parrish CNP Nurse Practitioner Family Medicine 11/24/22 documented as of this encounter
--- OUTSIDE RECORDS SUMMARY | 2025-04-01 09:22 | XMS_ITS | Patient Health Record ---
Author Organization [facility] Address [address] [place] [address] Care Team Providers Care Case Preparer And Liner Name Role Phone Dr. Ramiro Matthew Primary Care Provider [phone] Jazmine Kaba Unavailable [phone] Belén Davis Unavailable [phone] Reason For Referral No Information Encounters Encounter Location Date Provider Diagnosis [facility] [address] [place] [address] 05/27/2024 Ramiro Matthew Encounter for dental examination and cleaning with abnormal findings Z01.21 ; Other dental procedure status Z98.818 ; Dental caries on pit and fissure surface penetrating into dentin K02.52 and Acute gingivitis, plaque induced K05.00 [facility] [address] [place] [address] 07/17/2024 Belén Davis Dental caries on pit and fissure surface penetrating into dentin K02.52 Assessments Encounter Date Diagnosis (ICD Code) Assessment Notes Treatment Notes Treatment Clinical Notes Section Notes 05/27/2024 Encounter for dental examination and cleaning with abnormal findings (ICD-10 - Z01.21) 07/17/2024 Dental caries on pit and fissure surface penetrating into dentin (ICD-10 - K02.52) 05/27/2024 Other dental procedure status (ICD-10 - Z98.818) 05/27/2024 Dental caries on pit and fissure surface penetrating into dentin (ICD-10 - K02.52) 05/27/2024 Acute gingivitis, plaque induced (ICD-10 - K05.00) Plan Of Treatment No Information Insurance Providers Payer Name Payer Address Payer Phone Subscriber Number Group Number Insured Name Patient Relationship to Insured Coverage Start Date Coverage End Date [place] [address] [place] [phone] [id number] TERESSA PEREZ Self - patient is the insured 3 DENTAL MEDICAID [place] [address] [place] [address] [id number] TERESSA PEREZ Self - patient is the insured 3
--- OUTSIDE RECORDS SUMMARY | 2025-04-01 09:22 | XMS_ITS | Encounter Summary ---
Author Organization [facility] Address [address] [place] [address] Care Team Providers Care Research Lab Assistant Name Role Phone Lori Thacker MD Primary Care Provider Encounter Details Date Type Department Care Team (Late st Contact Info) Description 02/29/2024 Clinisync Result Encounter [facility] External Department Unsolicited Trevor Dickinson, DO [address] [facility] [place] [address] Social History Tobacco Use Types Packs/Day Years [...] on file documented as of this encounter Miscellaneous Notes * Result Encounter Note - Sima Parsons LPN - 02/29/2024 9:42 AM EDT Pt notified and transferred upfront to schedule. documented in this encounter Plan of Treatment Not on file documented as of this encounter Procedures Procedure Name Priority Date/Time Associated Diagnosis Comments [facility] PREG QUANT HCG Routine 02/29/2024 9: 37 AM EDT MLR HEMOGLOBIN A1C Routine 02/29/2024 9: 37 AM EDT ALL THYROXINE (T4) FREE Routine 02/29/20 9:37 AM EDT ALL THYROID STIM HORMONE Routine 024 9:37 AM EDT ALL LUTEINIZING HORMONE Routine 02/29/20 9:37 AM EDT ALL FOLLICLE STIMULATING HORMONE Routine 02/29/2024 9:37 AM EDT ALL DHEA SULFATE Routine 02/29/2024 9:37 AM EDT ALL DEHYDROEPIANDROSTERONE Routine 02/28 9:37 AM EDT ALL CBC WITH AUTO DIFF Routine 9:37 AM EDT US PELVIS W/ TRANSVAGINAL 2023 9:36 AM EDT documented in this encounter Results * ALL DEHYDROEPIANDROSTERONE (02/29/2024 9:37 AM EDT) DHEA, SERUM 36 31 - 701 ng/dL [facility]H Comment: This test was developed and its performance characteristics determined by [facility]. It has not been cleared or approved by the Food and Drug Administration. Performed at: [address] [id number] Live In Caregiver: Jace Newby MD, Phone: [phone] 02/29/2024 9:37 AM EDT 02/29/2024 9:39 AM EDT Narrative [facility] - 03/07/2024 9:11 AM EDT us Trevor Teena DO CLIN[facility] Final Result [facility] TB * ALL FOLLICLE STIMULATING HORMONE (02/29/2024 9:37 AM EDT) FSH 6.4 . mIU/mL TBH Comment: Adult Female Range Follicular phase 3.5 - 12.5 Ovulation phase 4.7 - 21.5 Luteal phase 1.7 - 7.7 Postmenopausal 25.8 - 134.8 Performed at: [address] [id number] Live In Caregiver: Tarun Almanzar PhD, Phone: [phone] 02/29/2024 9:37 AM EDT 02/29/2024 9:39 AM EDT Narrative [facility] - 03/01/2024 4:07 AM EDT us Trevor Teena DO [facility] Final Result [facility] * ALL LUTEINIZING HORMONE (02/29/2024 9:37 AM EDT) LUTEINIZING HORMONE(LH) 19.1 . mIU/mL TBH Comment: Adult Female Range Follicular phase 2.4 - 12.6 Ovulation phase 14.0 - 95.6 Luteal phase 1.0 - 11.4 Postmenopausal 7.7 - 58.5 02/29/2024 9:37 AM EDT 02/29/2024 9:39 AM EDT Narrative CL[facility] - 03/01/2024 4:07 AM EDT us Trevor Teena DO CLINISYNC Final Result Performing Organization Address City/[facility]/ZIP Co de Phone Number [facility] * (ABNORMAL) ALL DHEA SULFATE (02/29/2024 9:37 AM EDT) DHEA-SULFATE 28.1(A) 84.8 - 378.0 ug/dL TBH 02/29/2024 9:37 AM EDT 02/29/2024 9:39 AM EDT Narrative CLIN[facility]YNC - 03/01/2024 4:07 AM EDT Trevor Teena DO CLINISYNC Final Result Performing Organization Address City/[facility]/ZIP Co de Phone Number [facility] * ALL THYROXINE (T4) FREE (02/29/2024 9:37 AM EDT) FREE T4 1.07 0.76 - 1.46 ng/dL TBH 02/29/2024 9:37 AM EDT 02/29/2024 9:39 AM EDT Narrative CLIN[facility] - 02/29/2024 11:35 AM EDT us Trevor Teena DO CLINIS[facility]NC Final Result Performing Organization Address City/[facility]/ZIP Co de Phone Number CLIN[facility]NC TBH * TBH PREG QUANT HCG (02/29/2024 9:37 AM EDT) HCG QUANTITATIVE <1 mIU/mL TB[facility] Comment: 5-50 0.2-1 WEEK 50-500 1-2 WEEKS 100-5,000 2-3 WEEKS 500-10,000 3-4 WEEKS 1,000-50,000 4-5 WEEKS 10,000-100,000 5-6 WEEKS 15,000-200,000 6-8 WEEKS 10,000-100,000 2-3 MONTHS 02/29/2024 9:37 AM EDT 02/29/2024 9:39 AM EDT Narrative CLIN[facility] - 02/29/2024 11:16 AM EDT us Trevor Teena DO CLINISYNC Final Result Performing Organization Address [facility]/ZIP Co de Phone Number CL[facility]NC [facility] * (ABNORMAL) ALL THYROID STIM HORMONE (02/29/2024 9:37 AM EDT) THYROID STIMULATING HORMONE 8.498(H) 0.358 - 3.740 uIU/mL TBH 02/29/2024 9:37 AM EDT 02/29/2024 9:39 AM EDT Narrative CLINISYNC - 02/29/2024 11:16 AM EDT us Trevor Teena DO CLINISYNC Final Result Performing Organization Address City/[facility]/ZIP Co de Phone Number CL[facility]NC [facility] * (ABNORMAL) ALL CBC WITH AUTO DIFF (02/29/2024 9:37 AM EDT) [facility] TB WBC 12.2(H) 4.0 - 11.0 10 3/uL TBH TBH RBC 5.09 4.20 - 5.40 10 6/uL TBH TBH HGB 13.0 12.0 - 16.0 g/dL TBH TBH HCT 41.2 36.0 - 48.0 % TBH TBH MCV 80.9(L) 81.0 - 99.0 fL TBH TBH MCH 25.5(L) 26.7 - 34.0 pg TBH TBH MCHC 31.6 29.9 - 35.2 g/dL TBH TBH RDW 14.6 11.0 - 15.0 % TBH TBH PLT 356 150 - 450 10 3/uL TBH TBH MPV 9.3(L) 9.5 - 13.5 fL TBH NEUTROPHILS PERCENT AUTO 73.5 43.0 - 75.0 % TBH LYMPHOCYTES PERCENT AUTO 16.9(L) 20.5 - 60.0 % TBH MONOCYTES PERCENT AUTO 6.2 1.7 - 12.0 % TBH TBH EO % 2.3 0.9 - 7.0 % TBH BASOPHILS PERCENT AUTO 0.6 0.2 - 2.0 % TBH IMMATURE GRANULOCYTES PCT AUTO 0.5 0.0 - 0.5 % TBH NEUTROPHILS ABSOLUTE AUTO 9.0(H) 1.4 - 6.5 10 3/uL TBH LYMPHOCYTES ABSOLUTE AUTO 2.1 1.2 - 3.8 10 3/uL TBH MONOCYTES ABSOLUTE AUTO 0.8 0.3 - 0.8 10 3/uL TBH TBH EO # 0.3 0.0 - 0.7 10 3/uL TBH BASOPHILS ABSOLUTE AUTO 0.1 0.0 - 0.1 10 3/uL TBH IMMATURE GRANULOCYTES ABS AUTO 0.06(H) 0.00 - 0.03 10 3/uL TBH 02/29/2024 9:37 AM EDT 02/29/2024 9:39 AM EDT Narrative CLINISYNC - 02/29/2024 10:19 AM EDT us Trevor Teena DO [facility] Final Result [facility] * MLR HEMOGLOBIN A1C (02/29/2024 9:37 AM EDT) GLYCOHEMOGLOBIN A1C 5.7 4.5 - 6.2 % [facility] Comment: ADA RECOMMENDED LIMIT 4.0 - 6.0 ADA THERAPEUTIC TARGET < 7.0 ACTION SUGGESTED > 7.0 ESTIMATED AVERAGE GLUCOSE 117 mg/dL TB 02/29/2024 9:37 AM EDT 02/29/2024 9:39 AM EDT Narrative CLINISYNC - 02/29/2024 9:57 AM EDT us Trevor Teena DO CLINISYNC Final Result Performing Organization Address [facility]/ZIP Co de Phone Number [facility] * US PELVIS W/ TRANSVAGINAL (02/29/2024 9:36 AM EDT) Anatomical Region Laterality Modality Other 02/29/2024 9:36 AM EDT Narrative 02/29/2024 9:38 [place] [address] Ultrasound Report Signed Patient: TERESSA PRIETO MR#: [id number] : 1990 Acct:[id number] Age/Sex: 33 / F ADM Date: 02/29/24 Loc: US Attending Dr: Trevor Dickinson D.O. Ordering Physician: Trevor Dickinson D.O. Date of Service: 02/29/24 Procedure(s): US pelvis w/ transvaginal Accession Number(s): [id number] cc: Trevor Dickinson D.O.; Nikolas Kovacs NP [address] [address] Patient Name: TERESSA PRIETO MRN: [id number] date: 1990 Sex: F Assigned Patient Location: US Current Patient Location: US Accession/Order Number: [id number] Exam Date: 02/29/2024 08:45 Report Date: 02/29/2024 09:36 At the request of: TREVOR DICKINSON Procedure: US pelvis w/ transvaginal EXAMINATION: US pelvis w/ transvaginal HISTORY: PCOS COMPARISON: No relevant comparison available. FINDINGS: Transabdominal and transvaginal images The uterus is normal in size, contour and echotexture measuring 8.8 x 5.3 x 4.8 cm. No focal myometrial mass. The endometrium measures 10.3 mm, normal The right ovary is normal measuring 2.7 x 2.8 x 1.6 cm. Normal color Doppler flow The left ovary is normal measuring 2.6 x 2.0 x 1.5 cm. Normal color Doppler flow US/US pelvis w/ transvaginal IMPRESSION: Unremarkable exam. No evidence of polycystic ovarian morphology Electronically authenticated by: KATYA BECK Date: 02/29/2024 09:36 Dictated By: Katya Beck M.D. Signed By: 02/29/2438 DD/ TD/TT: Senior Risk Manager: Procedure Note Radiology, Radiologist, MD - 02/29/2024 [place] [address] Ultrasound Report Signed Patient: TERESSA PRIETO RMR#: [id number] : 1990Acct:[id number] Age/Sex: 33 / FADM Date: 02/29/24 Loc: US Attending Dr: Trevor Dickinson D.O. Ordering Physician: Trevor Dickinson D.O. Date of Service: 02/29/24 Procedure(s): US pelvis w/ transvaginal Accession Number(s): [id number] cc: Trevor Dickinson D.O.; Nikolas Kovacs NP The [place] [id number] Patient Name: TERESSA PRIETO MRN: [id number] date: 1990 Sex: F Assigned Patient Location: US Current Patient Location: US Accession/Order Number: [id number] Exam Date: 02/29/2024 08:45 Report Date: 02/29/2024 09:36 At the request of: TREVOR DICKINSON Procedure: US pelvis w/ transvaginal EXAMINATION: US pelvis w/ transvaginal HISTORY: PCOS COMPARISON: No relevant comparison available. FINDINGS: Transabdominal and transvaginal images The uterus is normal in size, contour and echotexture measuring 8.8 x 5.3x 4.8 cm. No focal myometrial mass. The endometrium measures 10.3 mm, normal The right ovary is normal measuring 2.7 x 2.8 x 1.6 cm. Normal colorDoppler flow The left ovary is normal measuring 2.6 x 2.0 x 1.5 cm. Normal colorDoppler flow US/US pelvis w/ transvaginal IMPRESSION: Unremarkable exam. No evidence of polycystic ovarian morphology Electronically authenticated by: KATYA BECK Date: 02/29/2024 09:36 Dictated By: Katya Beck M.D. Signed By:02/29/2438 DD/ TD/TT: Senior Risk Manager: us Trevor Dickinson DO [facility] IMAGING Final Result documented in this encounter Visit Diagnoses Not on filedocumented in this encounter Care Teams Research Lab Assistant Relationship Specialty Start Date End Date Lori Thacker MD PCP - General Family Medicine 02/27/24 documented as of this encounter
--- OUTSIDE RECORDS SUMMARY | 2025-04-01 09:22 | XMS_ITS | Encounter Summary ---
Author Organization [facility] Address [address] [facility], [address] [place] [address] Care Team Providers Care Trapper Bird Name Role Phone sIiah Terrell MD Primary Care Provider +-4 Reason for Visit * Reason Onset Date Comments Medication Refill Medication Refill 09/20/2021 Encounter Details Date Type Department Care Team (Late st Contact Info) Description 09/20/2021 Refill [facility] Director Of Social Media Marketing [address] [place] [address] Guillermo Westbrook MD [address] [place] [address] Medication Refill; Medication Refill Social History Tobacco Use Types Packs/Day Years [...] as of this encounter Plan of Treatment Scheduled Orders Name Type Priority Associated Diagnoses Orde r Schedule CBC Auto Differential Lab Routine Thyroid dysfunction in , antepartum Palpitation Tachycardia H/O partial thyroidectomy Impaired fasting glucose Expected: 09/20/2022, Expires: 09/20/2022 Lipid Panel Lab Routine Encounter for lipid screening for cardiovascular disease Expected: 09/20/2022, Expires: 09/20/2022 Vitamin D 25 Hydroxy Lab Routine Vitamin D deficiency Expected: 09/20/2022, Expires: 09/20/2022 Comprehensive Metabolic Panel Lab Routine Thyroid dysfunction in , antepartum Palpitation Tachycardia H/O partial thyroidectomy Impaired fasting glucose Encounter for lipid screening for cardiovascular disease Expected: 09/20/2022, Expires: 09/20/2022 TSH with Reflex Lab Routine Thyroid dysfunction in , antepartum Palpitation Tachycardia H/O partial thyroidectomy Impaired fasting glucose Encounter for lipid screening for cardiovascular disease Expected: 09/20/2022, Expires: 09/20/2022 Magnesium Lab Routine Thyroid dysfunction in , antepartum Palpitation Tachycardia H/O partial thyroidectomy Impaired fasting glucose Encounter for lipid screening for cardiovascular disease Expected: 09/20/2022, Expires: 09/20/2022 Hemoglobin A1C Lab Routine Impaired fasting glucose Expected: 09/20/2022, Expires: 09/20/2022 documented as of this encounter Visit Diagnoses Diagnosis Thyroid dysfunction in , antepartum- Primary Thyroid dysfunction, antepartum Palpitation Palpitations Tachycardia Tachycardia, unspecified H/O partial thyroidectomy Other postprocedural status Impaired fasting glucose Vitamin D deficiency Unspecified vitamin D deficiency Encounter for lipid screening for cardiovascular disease documented in this encounter Care Teams Trapper Bird Relationship Specialty Start Date End Date Isiah Terrell MD [address] [place] [address] PCP - General Family Medicine 04/12/20 documented as of this encounter
--- OUTSIDE RECORDS SUMMARY | 2025-04-01 09:22 | XMS_ITS | Encounter Summary ---
Author Organization [facility] Address [id number] [address] [place] [address] Care Team Providers Care Research Assistant Name Role Phone Lori Thacker ANDREW-SANDBLAST CARVER Primary Care Provider Encounter Details Date Type Department Care Team (Late st Contact Info) Description 12/01/2021 Telephone [facility] - Medical Oncology [address] [place] [address] Savannah Bear RMA Social History Tobacco Use Types Packs/Day Years [...] suspected to have Coronavirus/COVID-19? No / Unsure 11/11/2021 1:32 PM EST documented as of this encounter Miscellaneous Notes * Telephone Encounter - Savannah Bear MA - 12/01/2021 3:05 PM EDT Pt called to see dr ramirez. Write told pt that Dr Ramirez is out this week. When asked if she had called her bioinformatics specialist, pt stated that she did not go to her bioinformatics specialist today because she was bleeding so much. Pt stated she was passing a lot of clots and was concerned about her anemia. Pt stated she had slept like 12hours today . I advised pt to call her pcp, or to go to the ER to be evaluated if she was concernedabout the amount of blood she was losing. documented in this encounter Plan of Treatment Upcoming Encounters Date Type Department Care Team (Late st Contact Info) Description 04/03/2025 8:45 AM EDT Appointment [facility] José Miguel Crump [place] - Total Rehab [address] [place] [phone] 04/09/2025 9:30 AM EDT Office Visit [facility] [address] [place] [phone] Michele Pearson, [address] [place] [address], [address], [facility] [place] [address] 04/09/2025 10:00 AM EDT Telemedicine [facility] [address] [place] [phone] Claribel House LISW [address] [place] [phone] 04/29/2025 7:30 AM EDT Telemedicine [facility] [address] [place] [phone] Yashira Suazo, LOCATION DIRECTOR-SANDBLAST CARVER [address] [place] [address] 06/08/2025 10:00 AM EDT Clinical Support [facility] [address] [place] [phone] Michele Pearson, DO [address] [facility], [address], [place] [address] documented as of this encounter Visit Diagnoses Not on filedocumented in this encounter Additional Health Concerns Infection Onset Date Last Indicated Resolved Time Enteric Rule-Out 11/07/2023 11/07/2023 11/08/2023 12:29 AM EST Assessment Noted Time PHQ-9 Depression Total Score: 0 08/23/20 17 2:00 PM EST documented as of this encounter Care Teams Research Assistant Relationship Specialty Start Date End Date Lori Thacker APRN-DAVID [address] [place] [address], [place] [address] PCP - General Nurse Practitioner 10/08/23 Nikolas Parrish CNP Nurse Practitioner Family Medicine 11/24/22 documented as of this encounter
--- OUTSIDE RECORDS SUMMARY | 2025-04-01 09:22 | XMS_ITS | Encounter Summary ---
Author [facility] Address [id number] [address] [place] [address] Care Team Providers Care Technical Sales Support Specialist Name Role Phone ThackerLori APRN-DAVID Primary Care Provider Reason for Visit * Reason Comments Med Refill Encounter Details Date Type Department Care Team (Late st Contact Info) Description 03/14/2025 Refill [facility] [address] [place] [address] [place] [address] Michele Pearson, DO [address] [facility], [address], [place] [address] Hyperglycemia Social History Tobacco Use Types Packs/Day Years [...] Info) Description 04/03/2025 8:45 AM EDT Appointment [facility] José Miguel Crump [place] - Total Rehab [address] [place] [phone] 04/09/2025 9:30 AM EDT Office Visit [facility] [address] [place] [address] [place] [phone] Michele Pearson, [address] [place] [address], [address], [place] [address] 04/09/2025 10:00 AM EDT Telemedicine [facility] [address] [place] [phone] Claribel House LISW [address] [place] [phone] 04/29/2025 7:30 AM EDT Telemedicine [facility] [address] [place] [address] Yashira Suazo, RN FACULTY-PARKING METER ATTENDANT [address] [facility], [address] [address] 06/08/2025 10:00 AM EDT Clinical Support [facility] [address] [place] [address] Michele Pearson, [address] [facility], [address], [facility] [place] [address] documented as of this encounter Visit Diagnoses Diagnosis Hyperglycemia Other abnormal glucose documented in this encounter Additional Health Concerns Assessment Noted Time PHQ-9 Depression Total Score: 0 03/12/20 25 7:45 AM EDT documented as of this encounter Care Teams Technical Sales Support Specialist Relationship Specialty Start Date End Date Lroi Thacker APRN-DAVID [address] [place] [address], [place] [address] PCP - General Nurse Practitioner 10/08/23 Nikolas Parrish CNP Nurse Practitioner Family Medicine 11/24/22 documented as of this encounter
--- OUTSIDE RECORDS SUMMARY | 2025-04-01 09:23 | XMS_ITS | Clinical Summary ---
Author Organization [employer] Address [address] [place] [address] Care Team Providers Care Jelly Maker Name Role Phone Isiah Terrell MD Primary Care Provider [phone] Allergies Active Allergy Reactions Criticality Noted Date Comments Cefaclor Hives,Rash High 04/28/2013 Other reaction(s): Other (See Comments) Ciprofloxacin High 09/03/2019 Penicillins Hives,Rash High 02/14/2013 Pertussis Vaccines 04/24/2018 Sulfa Antibiotics 09/03/2019 Sulfamethoxazole-Trimethopri m Rash Low 06/16/2016 Tetanus-Diphtheria Toxoids Td 02/29/2016 Medications spironolactone 25 MG tablet Take 1 tablet by mouth daily. 07/20/2021 Active sucralfate 1 g tablet Take 1 g by mouth 2 times daily. 08/10/2021 Active metoprolol 25 MG tab regular release Take 25 mg by mouth 2 times daily. Active clindamycin 75 MG capsule Take 75 mg by mouth 4 times daily. Active hydroCHLOROthiaz prateek 25 MG tablet Take 25 mg by mouth daily. 10/11/2020 Active hydroCODone-acet aminophen 5-325 MG tablet Take 1 tablet by mouth Twice daily. Active hydrOXYzine HCl 25 MG tablet Take 25 mg by mouth Every 8 hours. Active isosorbide mononitrate 30 MG Tab SR 24 HR tablet XL Take 0.5 tablets by mouth. 07/20/2021 Active rivaroxaban (Xarelto) 10 MG tablet At bedtime. Active pantoprazole [address] tablet DR Take 40 mg by mouth Twice daily. Active baclofen 10 MG tablet Take 10 mg by mouth daily as needed. 07/22/2021 Active Active Problems Problem Noted Date Diagnosed Date COVID 07/01/2021 Obesity 06/30/2021 Chronic pain 02/17/2021 Anxiety 02/15/2021 Diarrhea 02/15/2021 GERD without esophagitis 02/15/2021 Depression 02/15/2021 Pulmonary embolism 02/15/2021 Hypothyroidism 02/15/2021 YULY (obstructive sleep apnea) 02/15/2021 Sebaceous cyst 02/11/2021 Autoimmune thyroiditis 01/24/2021 Activated protein C resistance 01/20/2021 Lymphadenitis 10/20/2020 Spondylosis 10/20/2020 Social History Tobacco Use Types Packs/Day Years Used Date Smoking Tobacco: Never Assessed Comments Unknown Sex and Gender Information Value Date Recorded Sex Assigned at Not on file Legal Sex Female 9:28 AM EST Gender Identity Not on file Sexual Orientation Not on file Plan of Treatment Health Maintenance Due Date Last Done Comments HEPATITIS C VIRUS SCREENING 1989 HIV SCREENING DISCUSSION 2004 CERVICAL CANCER SCREENING DISCUSSION 2010 COVID-19 VACCINE ( season) 2024 INFLUENZA VACCINE (#1) 2025 4, 06/09/2009, 06/15/2005 HEP B VACCINE Completed 12/14/2003, 08/04, 03/30/2003 TDAP (ADULT) Discontinued 06/10/2009, 05/04, 07/01/1990, Additional history exists TETANUS Discontinued 09/03/2009, 04/2009, 05/14/1991, Additional history exists HPV VACCINE Aged Out No longer eligi ble based on patient's age to complete this topic PNEUMOCOCCAL VACCINE SERIES Aged Out No longer eligible based on patient's age to complete this topic Insurance MEDICARE A AND B MEDICAID Care Teams Jelly Maker Relationship Specialty Start Date End Date Isiah Terrell MD PCP - General Family Medicine 07/14/21
--- OUTSIDE RECORDS SUMMARY | 2025-04-01 09:23 | XMS_ITS | Encounter Summary ---
Author Organization [facility] Address [id number] [address] [place] [address] Care Team Providers Care Examination Grader Name Role Phone ThackerUyen hintondenver MORALES-BAG HANGER Primary Care Provider Encounter Details Date Type Department Care Team (Late st Contact Info) Description 06/30/2024 Telephone [facility] [address] [place] [address] [place] [address] Nini Lilly CMA Social History Tobacco Use Types Packs/Day [...] got money to buy more. Never True 06/27/2024 Within the past 12 months th e food we bought just didn't last and we didn't have money to get more. Never True 06/27/2024 Purpose - Life Answer Date Recorded Purpose and direction in life Unknown Comments No Sex and Gender Information Value Date Recorded Sex Assigned at Female 11/11/2022 10:42 PM EST Legal Sex Female 5:12 PM EDT Gender Identity Female 11/11/2022 10:42 PM EST Sexual Orientation Straight 11/11/2022 10 :42 PM EST documented as of this encounter Miscellaneous Notes * Telephone Encounter - Nini Lilly CMA - 06/30/2024 3:10 PM EDT ----- Message from CHERRI Pelaez sent at 06/30/2024 6:21 AM EDT ----- Electrolytes are normal, elevated WBC, but she is aware of infected boil. Please ensure to stay hydrated. * Telephone Encounter - Nini Lilly CMA - 06/30/2024 3:10 PM EDT Tried to call patient but no answer so I left a voicemail. documented in this encounter Plan of Treatment Upcoming Encounters Date Type Department Care Team (Late st Contact Info) Description 04/03/2025 8:45 AM EDT Appointment [facility] [place] [facility] [address] [place] [phone] 04/09/2025 9:30 AM EDT Office Visit [facility] [address] [place] [address] [address] Michele Pearson, DO [address] [facility], [address] [place] [address] 04/09/2025 10:00 AM EDT Telemedicine [facility] [address] [place] [address], [place] [phone] Claribel House LISW [address] [facility] [place] [phone] 04/29/2025 7:30 AM EDT Telemedicine [facility] [address] [place] [address], [place] [phone] Yashira Suazo APRN-DAVID [address] [place] [address], [place] [address] 06/08/2025 10:00 AM EDT Clinical Support [facility] [address] [place] [phone] Michele Pearson, [address] [facility], [facility] [address], [facility] [address] [place], [place] [id number] documented as of this encounter Visit Diagnoses Not on filedocumented in this encounter Additional Health Concerns Assessment Noted Time PHQ-9 Depression Total Score: 17 024 10:09 AM EDT documented as of this encounter Care Teams Examination Grader Relationship Specialty Start Date End Date Lori Thacker APRN-DAVID [address] [place] [phone] PCP - General Nurse Practitioner 10/08/23 Nikolas Parrish CNP Nurse Practitioner Family Medicine 11/24/22 documented as of this encounter
--- OUTSIDE RECORDS SUMMARY | 2025-04-01 09:23 | XMS_ITS | Clinical Summary ---
Author Organization [facility] Address [address] [place], [place] [id number] Care Team Providers Care Manager Science Name Role Phone Isiah Terrell MD Primary Care Provider [phone] Allergies Active Allergy Reactions Criticality Noted Date Comments Allopurinol High 05/12/2020 Amoxicillin Hives High 02/29/2016 Cefaclor Hives,Other (See Comments) Low 04/28/2013 Ciprofloxacin High 06/03/2020 Estrogens Other (See Comments) High 01/28/2015 Blood clots with all hormones Penicillins Hives,Rash High 02/14/2013 Sulfa (Sulfonamide Antibiotics) High 06/03/2020 Medications lidocaine HCL 3 % Crea APPLY TO THE AFFECTED AREA(S) BY TOPICAL ROUTE 2 TIMES PER DAY . 8 Active hydroCHLOROthiaz prateek (HYDRODIURIL) 25 MG tablet Take 25 mg by mouth daily . Active metoprolol tartrate (LOPRESSOR) 25 MG tablet Take 25 mg by mouth 2 (two) times a day . 6 Active spironolactone (ALDACTONE) 25 MG tablet Take 25 mg by mouth daily . 0 Active isosorbide mononitrate (IMDUR) 30 MG 24 hr tablet Take 15 mg by mouth daily . 0 Active sucralfate (CARAFATE) 1 gram tablet Take 1 g by mouth 4 (four) times a day . Active HYDROcodone-acet aminophen (NORCO) 5-325 mg per tablet TAKE 1 TABLET BY MOUTH TWICE DAILY NEEDED MUST LAST 30 DAYS 0 Active cholecalciferol, vitamin D3, 25 mcg (1,000 unit) capsule Take 1 (one) capsule (1,000 Units total) by mouth daily . 30 capsule 11 0 Active Active Problems Problem Noted Date Diagnosed Date Suppurative hidradenitis 08/02/2020 YULY (obstructive sleep apnea) 08/02/2020 Chronic fatigue 08/02/2020 Morbid obesity with BMI of 50.0-59.9, adult 07/06 Vitamin D insufficiency 08/02/2020 Immunizations Immunization Administration Dates Next Due DTaP 02/22/1996, 1,07/01/1990,04/29/19 90,02/27/1990 Hepatitis B 12/14/2003,08/26/2003,03/30/2003 HiB 05/14/1991,12/18/1990 IPV 12/24/1995, 1,04/29/1990,02/27/19 90 Influenza TIV (IM) 06/09/2009,06/15/2005 MMR 12/24/1995,02/26/1991 Meningococcal Conjugate (MENACTRA) 06/10/2009 Tdap 06/10/2009 Family History Medical History Relation Comments Thrombosis Brother Hyperlipidemia Father Hypertension Father Hypothyroidism Father Thrombosis Maternal Aunt Heart attack Maternal Uncle Heart disease Maternal Uncle Thrombosis Maternal Uncle Diabetes Mother Heart attack Mother Heart disease Mother Hypertension Mother Lupus Mother Cancer Paternal Grandfather COLON Macular degeneration Paternal Grandfather Heart disease Paternal Grandmother Heart disease Sister Relation Status Comments Brother Father Alive Maternal Aunt Maternal Grandfather Maternal Grandmother Maternal Uncle Mother Alive Paternal Grandfather Paternal Grandmother Sister Social History Tobacco Use Types Packs/Day Years Used Date Smoking Tobacco: Former Cigarettes Smokeless Tobacco: Never Alcohol Use Standard Drinks/Week Comments Never 0 (1 standard drink = 0.6 oz pur e alcohol) AUDIT-C Answer Date Recorded Q1: How often do you have a drink containing alc ohol? Never 08/02/2020 Average Number of Drinks Not on file 020 Frequency of Binge Drinking Not on file 07/06 Comments Unknown Sex and Gender Information Value Date Recorded Sex Assigned at Not on file Legal Sex Female 9:14 AM EDT Gender Identity Not on file Sexual Orientation Not on file Last Filed Vital Signs Vital Sign Reading Time Taken Comments Blood Pressure 150/91 08/02/2020 1:24 PM EST Pulse 91 08/02/2020 1:24 PM EST Temperature 36.9 C (98.4 F) 08/02/2020 1:24 PM EST Respiratory Rate - - Oxygen Saturation 97% 08/02/2020 1:24 PM EST Inhaled Oxygen Concentration - - Weight 160.1 kg (353 lb) 08/02/2020 1:24 PM EST Height 165.1 cm (5' 5 ) 08/02/2020 1:24 PM EST Body Mass Index 58.74 08/02/2020 1:24 PM EST Plan of Treatment Health Maintenance Due Date Last Done Comments Depression Screening/Follow-Up (PHQ-2/9) 2001 HIV Screening 2004 Hepatitis C Screening 11/17/2007 Pap Smear 2010 Wellness Visit 02/04/2016 02/03/2015 Tetanus: Every 10yrs 06/10/2019 06/10/2009 Cervical Cancer Screening 11/17/2019 HPV/Cotest 11/17/2019 COVID-19 Vaccine (2023-2 5 season) 2024 Influenza Vaccine (#1) 2025 9, 06/15/2005 Pneumococcal Vaccine: Ped or At-Risk Aged Out No longer eligible b ased on patient's age to complete this topic Insurance MEDICARE PART A & B MEDICAID [place] Care Teams Manager Science Relationship Specialty Start Date End Date Isiah Terrell MD [address] [place] [address] PCP - General Family Medicine 06/03/20
--- OUTSIDE RECORDS SUMMARY | 2025-04-01 09:23 | XMS_ITS | Clinical Summary ---
Author Organization [facility] Address [address] [facility], [address] [place] [address] Care Team Providers Care Track Machine Operator Repairer Name Role Phone Isiah Terrell MD Primary Care Provider [phone] Allergies Active Allergy Reactions Criticality Noted Date Comments Allopurinol High 05/12/2020 Amoxicillin Hives Low 04/28/2013 Sulfamethoxazole-Trim ethoprim Rash Low 06/16/2016 Cefaclor Hives Low 04/28/2013 Ciprofloxacin 09/03/2019 Diphtheria,Pertussis, Tetanus 04/28/2013 Estrogens Other (See Comments) High 01/28/2015 Blood clots with all hormones Other Rash,Other (See Comments) Low 01/19/2014 She cannot take any hormonal therapy because of a contraindication to her medical dx of factor V. kory Penicillin V Rash Low 02/14/2013 Penicillins Rash High 07/01/2018 Pertussis Vaccines 04/24/2018 Sulfa Antibiotics 09/03/2019 Medications sucralfate (CARAFATE) 1 GM tablet Take 1 g by mouth 4 times daily Active fluconazole (DIFLUCAN) 100 MG tablet Take 100 mg by mouth daily Active cefdinir (OMNICEF) 300 MG capsule Take 300 mg by mouth 2 times daily Active hydroCHLOROthiaz prateek (HYDRODIURIL) 25 MG tablet Take 25 mg by mouth daily Active metoprolol tartrate (LOPRESSOR) 25 MG tablet Take 25 mg by mouth 2 times daily Active spironolactone (ALDACTONE) 25 MG tablet Take 1 tablet by mouth once daily 30 tablet 07/20/2021 Active isosorbide mononitrate (IMDUR) 30 MG extended release tablet Take 1/2 (one-half) tablet by mouth once daily 30 tablet 07/20/2021 Active Active Problems Problem Noted Date Diagnosed Date Impaired fasting glucose 01/21/2016 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 04/15/2015 Anxiety 04/09/2015 Palpitation 04/09/2015 Tachycardia 04/09/2015 Morbid obesity with BMI of 50.0-59.9, adult 01/02 Skin ulcer of groin with fat layer exposed 01/15 Hidradenitis suppurativa 01/07/2015 Other problem associated wit h amniotic cavity and membranes, antepartum 08/21/2013 Supervision of normal first 07/24/2013 Coagulation defect affecting , antepart 05/28/2013 Overview (09/12/2015): Replacing Inactive Diagnoses Other current maternal condi tions classifiable elsewhere, antepartum 05/28/2013 Thyroid dysfunction in , antepartum Obesity affecting , antepartum 05/28/20 13 05/12/2013 Factor 5 Leiden mutation, heterozygous 3 Immunizations Immunization Administration Dates Next Due DTaP 02/22/1996, 1,07/01/1990,04/29,02/27/1990 Hepatitis B 12/14/2003,08/26/2003,03/30/2003 Hib, unspecified 05/14/1991,12/18/1990 Influenza Virus Vaccine 06/09/2009,06/15/2005 MMR, PRIORIX, M-M-R II, (age 12m+), SC, 0.5mL 12/24/1995,02/26/1991 Meningococcal ACWY, MENACTRA (MenACWY-D), (age 9m-55y), IM, 0.5mL 06/10/2009 Poliovirus, IPOL, (age 6w+), SC/IM, 0.5mL 12/24/1995,05/14/1991,04/29/1990,02/27 TDaP, ADACEL (age 10y-64y), BOOSTRIX (age 10y+), IM, 0.5mL 06/10/2009 Family History Medical History Relation Name Comments Other Brother 2 EPISODES THRO MBOSIS EVENTS Thyroid Disease Father Hypothyrodis m Other Maternal Aunt THROMBOTIC BING NT Heart Attack Maternal Uncle UNCLE FROM IN Other Maternal Uncle 3 UNCLES THRO MBOTIC EVENTS Diabetes Mother Heart Attack Mother MULTIPLE Heart Disease Mother Other Mother Lupus Cancer Paternal Grandfather colon Colon Cancer Paternal Grandfather Macular Degen Paternal Grandfather Heart Disease Paternal Grandmother Relation Name Status Comments Brother Father Alive Maternal Aunt Maternal Grandfather Maternal Grandmother Maternal Uncle Mother Alive Paternal Grandfather Paternal Grandmother Social History Tobacco Use Types Packs/Day Years Used Date Smoking Tobacco: Former Cigarettes Q uit: 04/28/2013 Smokeless Tobacco: Never Tobacco Cessation:Counseling Given: Yes Alcohol Use Standard Drinks/Week Comments No 0 (1 standard drink = 0.6 oz pur e alcohol) Comments No Sex and Gender Information Value Date Recorded Sex Assigned at Not on file Legal Sex Female 1:14 PM EST Gender Identity Not on file Sexual Orientation Not on file Last Filed Vital Signs Vital Sign Reading Time Taken Comments Blood Pressure 140/80 05/12/2020 11:20 AM EDT Pulse 100 05/12/2020 11:19 AM EDT Temperature 36.4 C (97.6 F) 11/01/2016 4:19 PM EST Respiratory Rate 18 11/01/2016 4:19 PM EST Oxygen Saturation 97% 05/12/2020 11:19 AM EDT Inhaled Oxygen Concentration - - Weight 154.7 kg (341 lb) 05/12/2020 11:19 AM EDT Height 165.1 cm (5' 5 ) 11/01/2016 4:19 PM EST Body Mass Index 56.75 11/01/2016 4:19 PM EST Plan of Treatment Not on file Insurance [facility] MEDICARE MEDICAID [place] Care Teams Track Machine Operator Repairer Relationship Specialty Start Date End Date Isiah Terrell MD [address] [place] [address] PCP - General Family Medicine 04/12/20
--- OUTSIDE RECORDS SUMMARY | 2025-04-01 09:23 | XMS_ITS | Encounter Summary ---
Author Organization [employer] Address [id number] [address] [place] [address] Care Team Providers Care Jig Fitter Name Role Phone Lori Thacker [employer]RE[employer] Primary Care Provider Encounter Details Date Type Department Care Team (Late st Contact Info) Description 01/28/2025 Orders Only [facility] [address] [address] External, Scanning Provider Social History [...] Upcoming Encounters Date Type Department Care Team ([facility] st Contact Info) Description 04/03/2025 8:45 AM EDT Appointment [facility] José Miguel [facility] [place] [facility] [address] [place] [phone] 04/09/2025 9:30 AM EDT Office Visit [facility] [address] [place] [address] [place] [address] Michele Pearson, [address] [place] [address], [address], [address] [place], [place] [phone] 04/09/2025 10:00 AM EDT Telemedicine [facility] [address] [place] [phone] Claribel House LISW [address] [place] [phone] 04/29/2025 7:30 AM EDT Telemedicine [facility] [address] [place] [phone] Yashira Suazo APRN-SCHOOL PATROL [address] [place] [phone] 06/08/2025 10:00 AM EDT Clinical Support [facility] [address] [place] [address] Michele Pearson, [address] [facility], [facility] [address] [place] [address] documented as of this encounter Procedures Procedure Name Priority Date/Time Associated Diagnosis Comments MULTIPLE LABS Routine 01/28/2025 1:50 PM EDT documented in this encounter Results * Multiple labs (01/28/2025 1:50 PM EDT) us Scanning Provider External [facility]AG[facility] Final Result MANUALLY TRANSCRIBED RESULTS documented in this encounter Visit Diagnoses Not on filedocumented in this encounter Additional Health Concerns Assessment Noted Time PHQ-9 Depression Total Score: 17 03/26/ 024 10:09 AM EDT documented as of this encounter Care Teams Jig Fitter Relationship Specialty Start Date End Date Lori Thacker APRN-DAVID [address] [place] [address], [place] [address] PCP - General Nurse Practitioner 10/08/23 Nikolas Parrish CNP Nurse Practitioner Family Medicine 11/24/22 documented as of this encounter
--- OUTSIDE RECORDS SUMMARY | 2025-04-01 09:23 | XMS_ITS | Encounter Summary ---
Author Organization [facility] Address [address] [facility], [address] [place] [address] Care Team Providers Care Pump Erector Name Role Phone Isiah Terrell MD Primary Care Provider [phone] Reason for Visit * Reason Comments Medication Refill Encounter Details Date Type Department Care Team ([facility] st Contact Info) Description 08/19/[address] [facility] On[facility] [address] [place] [address] Barb Garcia MD Medication Refill Social History Tobacco Use Types [...] on filedocumented in this encounter Care Teams Pump Erector Relationship Specialty Start Date End Date Isiah Terrell MD [address] [place] [address] PCP - General Family Medicine 04/12/20 documented as of this encounter
--- OUTSIDE RECORDS SUMMARY | 2025-04-01 09:23 | XMS_ITS | Clinical Summary ---
Author Organization Supremex tem Address [id number] [address] [place] [address] Care Team Providers Care New Accounts Representative Name Role Phone Lori Thacker [facility] Primary Care Provider Allergies Active Allergy Reactions Criticality Noted Date Comments Amoxicillin Hives Low 02/29/2016 Other reaction(s): hives Cefaclor Hives,Other (See Comments),Rash High 04/28/2013 Other reaction(s): hives Other reaction(s): Other (See Comments) Cephalosporins 06/13/2022 Ciprofloxacin High 09/03/2019 Diphtheria,Pertussis,Teta nus 04/28/2013 Estrogens Other (See Comments) High 02/29/2016 Blood clots with all hormones Other reaction(s): Unknown Other reaction(s): blood clots with all hormones Other Rash Low 02/29/2016 kory Penicillins Hives,Rash High 02/14/2013 Pertussis Vaccines 04/24/2018 Sulfa (Sulfonamide Antibiotics) High 06/03/2020 Sulfamethoxazole-Trimetho prim Hives Medium 06/16/2016 Other reaction(s): Unknown Tetanus Vaccines And Toxoid 02/29/2016 Medications melatonin 10 mg tablet Take 10 mg by mouth in the morning. Active pen needle, diabetic (COMFORT EZ PEN NEEDLES) 31 gauge x 1/4 needle 1 INJECTION by miscellaneous route in the evening. 90 each 2 Active cyanocobalamin 1000 MCG tablet Active ferrous sulfate (IRON) 325 (65 FE) mg tablet Take 1 tablet (325 mg total) by mouth daily with breakfast. 024 Active folic acid (FOLVITE) 1 mg tablet 024 Active secukinumab (COSENTYX, 2 SYRINGES,) 150 mg/mL syringe Inject 300 mg under the skin every 28 days. Active acetaminophen-cod eine (TYLENOL #3) 300-30 mg per tablet Take 1 tablet by mouth as needed in the morning and 1 tablet as needed in the evening for pain. Active ondansetron ODT (ZOFRAN ODT) 4 mg disintegrating tablet Dissolve 1 tablet (4 mg total) on tongue every 8 (eight) hours as needed for nausea or vomiting. 20 tablet 024 Active NURTEC ODT 75 mg tablet,disintegra ting DISSOLVE 1 TABLET ON THE TONGUE EVERY OTHER DAY 15 tablet 2 024 Active fexofenadine (CANDELARIO) 180 mg tablet Take 1 tablet (180 mg total) by mouth in the morning. 30 tablet 2 024 Active fluticasone propionate (FLONASE) 50 mcg/actuation nasal spray Administer 1 spray into each nostril in the morning. 15.8 mL 2 024 Active meclizine (ANTIVERT) 25 mg tablet Chew 1 tablet (25 mg total) and swallow 3 (three) times a day as needed for dizziness. 90 tablet 1 024 Active spironolactone (ALDACTONE) 25 mg tablet TAKE 1 TABLET BY MOUTH EVERY MORNING 90 tablet 1 025 Active isosorbide mononitrate (IMDUR) 30 mg 24 hr tablet TAKE 1/2 TABLET BY MOUTH DAILY 30 tablet 2 025 Active levothyroxine (SYNTHROID, LEVOTHROID) 50 MCG tablet Take 1 tablet (50 mcg total) by mouth in the morning. 90 tablet 1 025 Active chlorthalidone (HYGROTON) 50 MG tablet TAKE 1 TABLET BY MOUTH DAILY 60 tablet 1 025 Active baclofen (LIORESAL) 10 mg tablet 025 Active fondaparinux (ARIXTRA) 10 mg/0.8 mL syringe 025 Active metFORMIN XR (GLUCOPHAGE XR) 500 mg 24 hr tablet Take 2 tablets (1,000 mg total) by mouth daily with breakfast. 025 Active traMADoL (ULTRAM) 50 mg tablet Take 1 tablet (50 mg total) by mouth every 6 (six) hours as needed for pain. 025 Active ARIPiprazole (ABILIFY) 10 mg tablet Take 1 tablet (10 mg total) by mouth in the morning. 60 tablet 025 Active atomoxetine (STRATTERA) 60 mg capsule Take 1 capsule (60 mg total) by mouth in the morning. 30 capsule 1 025 Active DULoxetine (CYMBALTA) 30 mg capsule Take 1 capsule (30 mg total) by mouth in the morning. 90 capsule 2 025 Active hydrOXYzine (VISTARIL) 50 mg capsule Take 1 capsule (50 mg total) by mouth 3 (three) times a day as needed for anxiety. 180 capsule 025 Active prazosin (MINIPRESS) 2 mg capsule Take 1 capsule (2 mg total) by mouth nightly. 120 capsule 025 Active omeprazole (PriLOSEC) 20 mg capsuleIndication s:Gastroesophagea l reflux disease, unspecified whether esophagitis present TAKE 1 CAPSULE BY MOUTH EVERY MORNING AND TAKE 1 CAPSULE BY MOUTH BEFORE BEDTIME 60 capsule 1 025 Active furosemide (LASIX) 40 mg tablet Take 1 tablet (40 mg total) by mouth daily. 30 tablet 025 Active magnesium oxide (MAGOX) 400 mg tabletIndications :Muscle spasm Take 1 tablet (400 mg total) by mouth in the morning and 1 tablet (400 mg total) before bedtime. 60 tablet 025 Active potassium chloride (KLOR-CON M 20) 20 MEQ CR tablet Take 1 tablet (20 mEq total) by mouth in the morning. 30 tablet 025 Active SITagliptin phosphate (JANUVIA) 50 mg tabletIndications :Type 2 diabetes mellitus with other specified complication, unspecified whether alf insulin use ([facility]) Take 1 tablet (50 mg total) by mouth in the morning. 30 tablet 2 025 Active metoprolol tartrate (LOPRESSOR) 50 mg tabletIndications :Essential hypertension TAKE 1.5 TABLET BY MOUTH EVERY MORNING AND TAKE 1.5 TABLET BY MOUTH EVERY NIGHT AT BEDTIME 270 tablet 025 Active pioglitazone (ACTOS) 15 mg tabletIndications :Hyperglycemia TAKE 1 TABLET BY MOUTH IN THE MORNING 90 tablet 025 Active gabapentin (NEURONTIN) 300 mg capsuleIndication s:Neuropathy Take 1 capsule (300 mg total) by mouth 3 (three) times a day. 90 capsule 025 Active magnesium oxide (MAGOX) 400 mg tabletIndications :Muscle spasm Take 1 tablet (400 mg total) by mouth in the morning. 30 tablet 2 024 2024 Discontinued(R eorder) ARIPiprazole (ABILIFY) 10 mg tablet Take 1 tablet (10 mg total) by mouth in the morning. 60 tablet 025 2024 Discontinued(R eorder) hydrOXYzine (VISTARIL) 50 mg capsule Take 1 capsule (50 mg total) by mouth 3 (three) times a day as needed for anxiety. 180 capsule 025 2024 Discontinued(R eorder) metoprolol tartrate (LOPRESSOR) 50 mg tabletIndications :Essential hypertension TAKE 1 TABLET BY MOUTH EVERY MORNING AND TAKE 1 TABLET BY MOUTH BEFORE BEDTIME 180 tablet 1 025 2024 Discontinued(R eorder) DULoxetine (CYMBALTA) 30 mg capsule Take 1 capsule (30 mg total) by mouth in the morning. 90 capsule 2 025 2024 Discontinued(R eorder) omeprazole (PriLOSEC) 20 mg capsuleIndication s:Gastroesophagea l reflux disease, unspecified whether esophagitis present TAKE 1 CAPSULE BY MOUTH EVERY MORNING AND EVERY NIGHT BEFORE BEDTIME 60 capsule 1 025 2024 Discontinued atomoxetine (STRATTERA) 60 mg capsule TAKE 1 CAPSULE BY MOUTH EVERY MORNING 30 capsule 1 025 2024 Discontinued(R eorder) gabapentin (NEURONTIN) 300 mg capsuleIndication s:Neuropathy TAKE 1 CAPSULE BY MOUTH 3 TIMES A DAY 90 capsule 025 2024 Discontinued(R eorder) prazosin (MINIPRESS) 2 mg capsule TAKE 2 CAPSULES BY MOUTH ONCE NIGHTLY 120 capsule 025 2024 Discontinued(R eorder) pioglitazone (ACTOS) 15 mg tabletIndications :Hyperglycemia Take 1 tablet (15 mg total) by mouth in the morning. 10 tablet 025 2024 Discontinued glipiZIDE (GLUCOTROL XL) 10 mg 24 hr tabletIndications :Diabetes mellitus due to underlying condition with hyperglycemia, without long-term current use of insulin ([facility]) Take 1 tablet (10 mg total) by mouth in the morning. 30 tablet 2 025 2024 Discontinued(A lternate therapy) metoprolol tartrate (LOPRESSOR) 50 mg tabletIndications :Essential hypertension Take 1.5 tablets (75 mg total) by mouth in the morning and 1.5 tablets (75 mg total) before bedtime. Do all this for 90 days. TAKE 1 TABLET BY MOUTH EVERY MORNING AND TAKE 1 TABLET BY MOUTH BEFORE BEDTIME. 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 BG generally controlled, recent post-. A1C not available. 105-129 2. A1C 5.3% Assessment & Plan (02/27/2025 8:31 AM EDT): Current blood sugars elevated which is most likely secondary to prednisone taper. Continue with metformin ER 1000 mg daily and short term added pioglitazone 15 mg 1 tablet daily for 10 days. Patient to then return to metformin ER 500 mg 2 tablets daily. Last hemoglobin A1c from October 03, 2024 was 6.6%. PE (pulmonary thromboembolism) 10/28/2021 COVID 07/01/2021 Chronic pain 02/17/2021 Diarrhea 02/15/2021 Depression 02/15/2021 Hypothyroidism 02/15/2021 Autoimmune thyroiditis 01/24/2021 Activated protein C resistance 01/20/2021 Spondylolisthesis at L4-L5 level 10/20/2020 Overview (02/27/2025): Status post posterior lumbar interbody fusion February 2025 Assessment & Plan (02/27/2025 8:29 AM EDT): Following with surgical team for postoperative care. Patient to have kory removed next week at follow-up appointment. 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 03/14/2017 Morbid obesity with BMI of 50.0-59.9, adult 03/03 Gastroesophageal reflux disease 03/14/2017 Fatigue 03/14/2017 Essential hypertension 03/14/2017 Depression with anxiety 03/14/2017 Impaired fasting glucose 01/21/2016 Lymphocytic thyroiditis 04/15/2015 H/O partial thyroidectomy 04/15/2015 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 Left lower lung. PLAN: Heparin bolus and gtt initiated prior to arrival at [facility]. Pharm to assist with management, monitoring, and dosing of heparin. Levaquin for possible infiltrate distal to the PE. Dilaudid PRN for pain. Supplemental oxygen PRN to keep SaO2 >90%. Supportive care. Resolved Problems Problem Noted Date Diagnosed Date Resolved Date Acute pulmonary embolism wit hout acute cor pulmonale, unspecified pulmonary embolism type 11/14/2022 01/04/2023 Abscess 04/01/2017 05/03/2017 Acute cystitis without hematuria 04/01/2017 05/03/2017 Abscess of groin 03/14/2017 05/03/2017 MTHFR mutation 03/14/2017 03/15/2017 Factor 5 Leiden mutation, heterozygous 03/14/2017 03/15/2017 Hidradenitis suppurativa 07/06/2014 Thyroiditis 01/21/2014 03/15/2017 Overview (03/14/2017): Last Assessment & Plan: 01/23/2014 1. [place] thyroid lobectomy [place] [address] Brock, nodules to the right and was going to have surgery 2. TSH <0.01, waiting for labs from Keisha villegas but per patient, no TSH was checked during her (delivered 3 months ago) but after she got a new doctor, her thyroid level was fine and this was done in December. Still waiting for labs. 3. methimazole 10mg daily, explained risk of agranulocytosis (WBC normal now) and hepatic issues (CMP) reviewed. She has Factor V leiden and MTHFR genetic defect - not lactating 4. Labs: T3 117, free T4 2.26 5. Follow up labs in 4-6 weeks and we will see her in the office (labs entered under the DC navigator) - she is to call us soon for appt 6. Endocrine to follow as OP, she is established and would not need a DOCUMENT ANALYST appt Thyroid nodule 09/03/2013 04/01/2017 Heterozygous factor V Leiden mutation 05/12/2013 01/04/2023 Encounters Date Type Department Care Team Description 03/26/2025 Telephone [facility] [address] [place] [address] [place] [address] Lori Thacker APRN-CNP 03/16/2025 Refill [facility] [address] [phone] Jermaine Gagnon MD Neuropathy 03/14/2025 Refill [facility] [address] [phone] Michele Pearson, DO Hyperglycemia 03/12/2025 7:40 AM EDT Clinical Support [facility] [address] [phone] Lori Thacker APRN-CNP Diabetes mellitus due to underlying condition with hyperglycemia, without long-term current use of insulin ([facility]) (Primary Dx); Neuropathy; Controlled type 2 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 complication, without long-term current use of insulin ([facility]); Muscle spasm; Type 2 diabetes mellitus with other specified complication, unspecified whether alf insulin use ([facility]); Medication management; Pedal edema; Essential hypertension; Tachycardia 03/12/2025 Refill [facility] [address] [phone] Lori Thacker APRN-CNP Essential hypertension 03/09/2025 Travel 03/07/2025 Refill [facility] [address] [phone] Stephani Cole APRN-DAVID Gastroesophageal reflux disease, unspecified whether esophagitis present 03/05/2025 11:00 AM EDT Telemedicine [facility] [address] [place] [phone] Claribel House LISW Generalized anxiety disorder (Primary Dx); Post traumatic stress disorder (PTSD) 03/05/2025 Travel 03/04/2025 8:00 AM EDT Telemedicine [facility] [address] [place] [phone] Yashira Suazo APRN-DAVID Generalized anxiety disorder (Primary Dx); Post traumatic stress disorder (PTSD); Bipolar depression (CMS-HCC); Attention deficit hyperactivity disorder, combined type 03/04/2025 Travel 02/26/2025 3:00 PM EDT Office Visit [facility] [address] [place] [phone] Michele Pearson, Hyperglycemia (Primary Dx); Controlled type 2 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 complication, without long-term current use of insulin (CMS-HCC); Spondylolisthesis at L4-L5 level 02/25/2025 Travel 02/12/2025 Orders Only [facility] [address] [place] [phone] External, Scanning Provider 02/10/2025 Refill [facility] [address] [place] [phone] Yashira Suazo COAL WASHER TENDER[employer] DIV[employer] DIRECTOR 02/05/2025 9:00 AM EDT Telemedicine [facility] [address] [place] [phone] Claribel House LISW Generalized anxiety disorder (Primary Dx); Post traumatic stress disorder (PTSD) 02/03/2025 Travel 01/28/2025 Orders Only [facility] [address] [place] [phone] External, Scanning Provider 01/20/2025 Refill [facility] [address] [place] [phone] Jermaine Gagnon MD [facility] 01/13/2025 Refill [facility] [address] [place] [phone] Yashira Suazo COAL WASHER T[employer] DIRECTOR 01/08/2025 10:30 AM EDT Telemedicine [facility] [address] [place] [phone] Yashira Suazo COAL W[employer]ER [employer] DIRECTOR Bipolar depression (CMS-HCC) (Primary Dx); Generalized anxiety disorder; Post traumatic stress disorder (PTSD); Attention deficit hyperactivity disorder, combined type 01/08/2025 Travel 01/02/2025 9:00 AM EDT Telemedicine [facility] [address] [place] [phone] Claribel House LISW Generalized anxiety disorder (Primary Dx); Post traumatic stress disorder (PTSD) 01/02/2025 Travel from Last 3 Months Immunizations Immunization Administration Dates Next Due DT 09/03/2009 DTP 05/14/1991, 0,04/29/1990,1989 DTaP, Unspecified 02/22/1996 Hep B, Adolescent or Pediatric 12/14/2003,2002,03/30/2003 HiB 05/14/1991,12/18/1990 Influenza Whole 06/09/2009,06/15/2005 Influenza, Im Trivalent Preservative 06/15/2014 MMR 12/24/1995,02/26/1991 Meningococcal MCV4P 06/10/2009 OPV 12/24/1995, 1,04/29/1990,1989 Tdap 06/10/2009 Family History Medical History Relation Name Comments Factor V Leiden deficiency Brother 1 Ke Hypertension Brother 1 Ke Arthritis Brother 2 Ke morhart Mental illness Brother 2 Ke morhart Adhd Vision loss Brother 2 Ke morhart Mental illness Daughter Emma grullon Adhd Anemia Father Petar doylehart Arthritis Father Petar doylehart Cancer Father Petar morhart Hemophilia Father Petar connorst High Cholesterol Father Petar doylehart Hypertension Father Petar morhart Hypothyroidism Father Petar connorst Vision loss Father Petar connorst Alcohol abuse Maternal Grandfather Ed starbuck Diabetes Maternal Grandfather Ed starbuck Alcohol abuse Maternal Grandmother Dara starbuck Arthritis Mother Ed starbuck Asthma Mother Ed starbuck Clotting disorder Mother Ed starbuck Depression Mother Ed starbuck Diabetes Mother Ed starbuck Factor V Leiden deficiency Mother Ed starbuck Glaucoma Mother Ed starbuck Heart disease Mother Ed starbuck Hypotension Mother Ed starbuck Impulse control disorder Mother Ed starbuck Lupus Mother Ed starbuck Mental illness Mother Ed starbuck Schizophrenia paranoia Miscarriages / Stillbirths Mother Ed starbuck Osteoporosis Mother Ed starbuck Vision loss Mother Ed starbuck Colon cancer Paternal Grandfather Chon grullon Heart disease Sister Janiya Grullon Relation Name Status Comments Brother 1 Ke Alive Brother 2 Ke grullon Daughter Emma grullon Father Petar grullon Alive Maternal Grandfather Ed starbuck Alive Maternal Grandmother Dara shah Mother Ed starherick vt---icd imp Paternal Grandfather Chon grullon Other Paternal Grandmother Other Sister Janiya Grullon Social History Tobacco Use Types Packs/Day Years Used Date Smoking Tobacco: Former Cigarettes 2 3 0 09/03/2010 - 09/03/2013 Smokeless Tobacco: Never Tobacco Cessation:Counseling Given: Not Answered Alcohol Use Standard Drinks/Week Comments No 0 [...] Orientation Straight 11/11/2022 10 :42 PM EST Last Filed Vital Signs Vital Sign Reading Time Taken Comments Blood Pressure 124/78 03/12/2025 7:46 AM EDT Pulse 106 03/12/2025 7:46 AM EDT Temperature 36.7 C (98 F) 03/12/2025 7:46 AM EDT Respiratory Rate 18 12/25/2024 5:20 PM EDT Oxygen Saturation 97% 03/12/2025 7:46 AM EDT Inhaled Oxygen Concentration - - Weight 169.6 kg (374 lb) 03/12/2025 7:46 AM EDT Height 165.1 cm (5' 5 ) 03/12/2025 7:46 AM EDT Body Mass Index 62.24 03/12/2025 7:46 AM EDT Plan of Treatment Upcoming Encounters Date Type Department Care Team (Late st Contact Info) Description 04/03/2025 8:[address] [facility] [address] [place] [phone] 04/09/2025 9:30 AM EDT Office Visit [facility] [address] [place] [address] [place] [phone] Michele Pearson, [address] [place] [address] 04/09/2025 10:00 AM EDT Telemedicine [facility] [address] [place] [phone] Claribel House LISW [address] [place] [phone] 04/29/2025 7:30 AM EDT Telemedicine [facility] [address] [place] [phone] Yashira Suazo, COAL WASHER T[employer] DIRECTOR [address] [facility], [address] [address] 06/08/2025 10:00 AM EDT Clinical Support [facility] [address] [place] [address] [place] [phone] Michele Pearson, [address] [facility], [address] [place] [address] Health Maintenance Due Date Last Done Comments Diabetic Ophthalmology Exam 1989 Adult BMI Follow Up Plan 11/17/2007 DTaP,Tdap and Td Vaccines (8 - Td or Tdap) 09/03/2019 09/03/2009, 06/10/2009, 02/22/1996, Additional history exists Influenza Vaccine 05/04/2025 06/15/2014, , 06/15/2005 Adult BMI Screening 03/12/2026 03/12/2025 Depression Screening 03/12/2026 03/12/2025 Diabetic Foot Exam 03/12/2026 03/12/2025, 12/07/2023 Tobacco Screening 03/13/2026 03/13/2025 Pap Smear 12/06/2026 12/07/2023, 04/0 01/2024, 12/07/2023 Medical Devices Not on file Procedures Procedure Name Priority Date/Time Associated Diagnosis Comments POCT HEMOGLOBIN A1C Routine 03/12/2025 7 :50 AM EDT Controlled type 2 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 complication, without long-term current use of insulin ([facility]) MULTIPLE LABS Routine 02/11/2025 9:17 AM EDT MULTIPLE LABS Routine 01/28/2025 1:50 PM EDT HIGH RISK HPV W/YOSHI Routine 12/07/2023 4:58 AM EDT Wellness examination Encounter for Papanicolaou smear for cervical cancer screening from Last 3 Months or Most Recently Relevant to Health Maintenance Results * (ABNORMAL) POCT Hemoglobin A1c (03/12/2025 7:50 AM EDT) External Poct Hgb A1C 7.6(A) 4 - 7 % MANUALLY TRANSCRIBED RESULTS Blood 03/12/2025 7:50 AM EDT Lori Thacker COAL WASHER TENDER[employer] DIVISION DIRECTOR POINT OF CARE TEST ORDE RABLES Final Result MANUALLY TRANSCRIBED RESULTS * Multiple labs (02/11/2025 9:17 AM EDT) Only the most recent of2 resultswithin the time period is included. us Scanning Provider External [facility] Final Result Performing Organization Address City/[facility] Co de Phone Number MANUALLY TRANSCRIBED RESULTS * High risk HPV w/yoshi (12/07/2023 4:58 AM EDT) Hpv specimen type ThinPrep 12/10/2023 4:59 AM EDT [facility] Hpv 16 Negative Negative^N egative 12/10/2023 1:57 PM EDT [facility] Hpv 18 Negative Negative^N egative 12/10/2023 1:57 PM EDT [facility] Other high risk hpv Negative Negative^N egative 12/10/2023 1:57 PM EDT [facility] Comment: HPV types 31,33,35,39,45,52,56,58,59,66 and 68 DNA were undetectable. THINP 12/07/2023 4:58 AM EDT 12/10/2023 4:59 AM EDT Lori Thacker COAL WASHER T[employer] DIRECTOR LAB BLOOD ORDERABLES Fi nal Result [facility] [address] [facility] [place] [address] [facility] [address] [place] [address], [address] [place] [address] from Last 3 Months or Most Recently Relevant to Health Maintenance Insurance MEDICARE MEDICAID [place] Advance Directives * Full Code (Latest Code Status on File) Date Activated Date Inactivated Comments 11/23/2022 7:38 PM 11/27/2022 6:48 PM * Full Code Date Activated Date Inactivated Comments 11/11/2022 7:59 PM 11/18/2022 12:49 PM * Full Code Date Activated Date Inactivated Comments 10/28/2021 10:56 PM 10/31/2021 1:52 PM Care Teams New Accounts Representative Relationship Specialty Start Date End Date Lori Thacker APRN-DAVID [address] [place] [address], JAQUELINE [place] [phone] PCP - General Nurse Practitioner 10/08/23 Nikolas Parrish CNP Nurse Practitioner Family Medicine 11/24/22
--- OUTSIDE RECORDS SUMMARY | 2025-04-01 09:23 | XMS_ITS | Encounter Summary ---
Author Organization [facility] Address [facility]-[id number] [address] [place] [address] Care Team Providers Care Live Hanger Name Role Phone Lori Thacker HALL WORKER-PRECISION JIG GRINDER Primary Care Provider Reason for Visit * Reason Comments Med Refill Encounter Details Date Type Department Care Team (Late st Contact Info) Description 07/01/2024 Refill [facility] [address] [place] [phone] Lori Thacker APRN-CNP [address] [place], [place] [address] Type 2 diabetes mellitus with other specified complication, unspecified whether skilled nursing insulin use ([facility]) Social History Tobacco Use Types Packs/Day Years [...] Info) Description 04/03/2025 8:45 AM EDT Appointment [facility] José Miguel Crump [place] [facility] [address] [place] [phone] 04/09/2025 9:30 AM EDT Office Visit [facility] [address] [place] [address] [place] [phone] Michele Pearson, DO [address] [place] [address], [address], [place] [address] 04/09/2025 10:00 AM EDT Telemedicine [facility] [address] [place] [phone] Claribel House [address] [place] [phone] 04/29/2025 7:30 AM EDT Telemedicine [facility] [address] [facility] [place] [phone] Yashira Suazo APRN-DAVID [address] [place] [address], [place] [address] 06/08/2025 10:00 AM EDT Clinical Support [facility] [address] [place] [address] [place] [address] Michele Pearson, [address] [facility], [address], [facility] [place] [address] documented as of this encounter Visit Diagnoses Diagnosis Type 2 diabetes mellitus with other specified complication, unspecified whether skilled nursing insulin use ([facility]) documented in this encounter Additional Health Concerns Assessment Noted Time PHQ-9 Depression Total Score: 17 024 10:09 AM EDT documented as of this encounter Care Teams Live Hanger Relationship Specialty Start Date End Date Lori Thacker APRN-DAVID [address] [place] [phone] PCP - General Nurse Practitioner 10/08/23 Nikolas Parrish CNP Nurse Practitioner Family Medicine 11/24/22 documented as of this encounter
--- OUTSIDE RECORDS SUMMARY | 2025-04-01 09:23 | XMS_ITS | Encounter Summary ---
Author Organization [facility] Address [address] [facility], [address] [place] [address] Care Team Providers Care Carpenter Assistant Installer Name Role Phone Isiah Terrell MD Primary Care Provider [phone] Reason for Visit * Reason Comments Medication Refill Encounter Details Date Type Department Care Team (Late st Contact Info) Description 05/20/2016 Refill [facility] [address] [place] [address] Moe Salinas MD [address] [place] [address] Medication Refill Social History Tobacco Use Types [...] on filedocumented in this encounter Care Teams Carpenter Assistant Installer Relationship Specialty Start Date End Date Isiah Terrell MD [address] [place] [address] PCP - General Family Medicine 04/12/20 documented as of this encounter
--- OUTSIDE RECORDS SUMMARY | 2025-04-01 09:23 | XMS_ITS | Encounter Summary ---
Author Organization [facility] Address [facility]-[id number] [address] [place] [address] Care Team Providers Care Registered Physical Therapist Name Role Phone Lori Thacker APRN-MANAGER PORTABLE Primary Care Provider Encounter Details Date Type Department Care Team (Late Contact Info) Description 01/05/2023 Orders Only [facility] [address] [place] [phone] Transcribe, Orders Support User Pain (Primary [...] got money to buy more. Never True 01/05/2023 Within the past 12 months th e food we bought just didn't last and we didn't have money to get more. Never True 01/05/2023 Purpose - Life Answer Date Recorded Purpose [...] AM EDT Appointment [facility] José Miguel Du[facility]na [place] [facility] [address] [place] [phone] 04/09/2025 9:30 AM EDT Office Visit [facility] [address] [place] [phone] Michele Pearson, [address] [place] [address], [facility], [place], [place] [phone] 04/09/2025 10:00 AM EDT Telemedicine [facility] [address] [place] [phone] Claribel House LISW [address] [place] [phone] 04/29/2025 7:30 AM EDT Telemedicine [facility] [address] [place] [phone] Yashira Suazo, GLASS DECORATOR-MANAGER PORTABLE [address] [place] [phone] 06/08/2025 10:00 AM EDT Clinical Support [facility] [address] [place] [phone] Michele Pearson, [address] [place] [address], [facility], [place], [place] [phone] documented as of this encounter Procedures Procedure Name Priority Date/Time Associated Diagnosis Comments ECHO COMPLETE WO CONTRAST Routine 11/22/2022 documented in this encounter Results * Non [facility] Echo (11/22/2022 1:20 PM EDT) us Scanning Provider External CV ECHO ORDERABLES Fi nal Result XCELERA * Echo complete W/O contrast (11/22/2022) Anatomical Region Laterality Modality Chest N/A Ultrasound us Scanning Provider External CV ECHO ORDERABLES Fi nal Result documented in this encounter Visit Diagnoses Diagnosis Pain- Primary Generalized pain documented in this encounter Additional Health Concerns Infection Onset Date Last Indicated Resolved Time Enteric Rule-Out 11/07/2023 11/07/2023 11/08/2023 12:29 AM EST Assessment Noted Time PHQ-9 Depression Total Score: 0 08/23/20 17 2:00 PM EST documented as of this encounter Care Teams Registered Physical Therapist Relationship Specialty Start Date End Date Lori Thacker APRN-DAVID [address] [place] [phone] PCP - General Nurse Practitioner 10/08/23 Nikolas Parrish CNP Nurse Practitioner Family Medicine 11/24/22 documented as of this encounter
--- NOTE | 2025-04-01 10:08 | PM.CN ---
Consult Note: HPI Data of Consult Patient: known to practice within the last 3 years Requesting Physician: Brenda Gonzalez NP Primary Care Provider: Non-Staff Physician, MD Consult Narrative Reason for consult: back pain Narrative: Margaret Grullon a pleasant 34 year old female presents for evaluation of chronic back pain. underwent lumbar surgery, L5-S1 fusion, 02/11/25 and 02/14/[address] Newman and continues to have post op complications including wounds and hyperglycemia. next appointment tomorrow. with hyperglycemia pt reports hallucinations, has been advised by PCP to go to the ER but refuses. at this time is utilizing gabapentin 300mg TID and baclofen 10mg TID prn pain/spasms. pain today 0/10. utilizing post op back brace. 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 - Hereditary deficiency of other clotting factors (ICD-10) Deep vein thrombosis ?I82.409 - Acute embolism and thrombosis of unspecified deep veins of unspecified lower extremity (ICD-10) Depression ?F32.A - Depression, unspecified (ICD-10) Panic attacks ?F41.0 - Panic disorder [episodic paroxysmal anxiety] (ICD-10) COVID-19 ?U07.1 - COVID-19 (ICD-10) Migraine ?G43.909 - Migraine, unspecified, not intractable, without status migrainosus (ICD-10) Atrial fibrillation ?I48.91 - Unspecified atrial fibrillation (ICD-10) PCOS (polycystic ovarian syndrome) ?E28.2 - Polycystic ovarian syndrome (ICD-10) 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 - Methylenetetrahydrofolate reductase deficiency (ICD-10) ?E72.11 - Homocystinuria (ICD-10) Pelvic pain ?R10.2 - Pelvic and perineal pain (ICD-10) Abnormal uterine bleeding (AUB) ?N93.9 - Abnormal uterine and vaginal bleeding, unspecified (ICD-10) Menorrhagia ?N92.0 - Excessive and frequent menstruation with regular cycle (ICD-10) Request for sterilization ?Z30.2 - Encounter for sterilization (ICD-10) Hidradenitis suppurativa ?L73.2 - Hidradenitis suppurativa (ICD-10) Abscess ?L02.91 - Cutaneous abscess, unspecified (ICD-10) Sleep apnea ?G47.30 - Sleep apnea, unspecified (ICD-10) Osteoarthritis ?M19.90 - Unspecified osteoarthritis, unspecified site (ICD-10) Dm-Schlatter's disease ?M92.529 - Juvenile osteochondrosis of tibia tubercle, unspecified leg (ICD-10) Anemia ?D64.9 - Anemia, unspecified (ICD-10) Anxiety ?F41.9 - Anxiety disorder, unspecified (ICD-10) Acid reflux ?K21.9 - Gastro-esophageal reflux disease without esophagitis (ICD-10) Factor V Leiden ?D68.51 - Activated protein C resistance (ICD-10) 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 - Autoimmune thyroiditis (ICD-10) Pulmonary embolism ?I26.99 - Other pulmonary embolism without acute cor pulmonale (ICD-10) High cholesterol ?E78.00 - Pure hypercholesterolemia, unspecified (ICD-10) Hypertension ?I10 - Essential (primary) hypertension (ICD-10) Chest pain ?R07.9 - Chest pain, unspecified (ICD-10) Surgical History History of incision and drainage ?Z98.890 - Other specified postprocedural states (ICD-10) History of esophagogastroduodenoscopy (EGD) ?Z98.890 - Other specified postprocedural states (ICD-10) S/P surgical removal of pilonidal cyst ?Z98.890 - Other specified postprocedural states (ICD-10) S/P epidural steroid injection ?Z92.241 - Personal history of systemic steroid therapy (ICD-10) Hx of cholecystectomy ?Z90.49 - Acquired absence of other specified parts of digestive tract (ICD-10) H/O partial thyroidectomy ?E89.0 - Postprocedural hypothyroidism (ICD-10) [place] teeth extracted ?K08.409 - Partial loss of teeth, unspecified cause, unspecified class (ICD-10) Hx of tonsillectomy ?Z90.89 - Acquired absence of other organs (ICD-10) History of appendectomy ?Z90.49 - Acquired absence of other specified parts of digestive tract (ICD-10) Family History Other Cancer Factor V deficiency Family history of colon cancer Family history of diabetes mellitus Family history of heart disease Family history of hypertension Family history of myocardial infarction Family history of seizures Family history of stroke Social History Within the past year, how often did you have a drink containing alcohol: never Score interpretation: A score less than 3 is consistent with normal alcohol consumption. Smoking status: Former smoker Non-prescribed substance use: denies use Highest level of school completed/degree received: high school graduate Meds Home Medications and Allergies Home Medications ?Medication ?Instructions ?Recorded ?Confirmed ?Type atomoxetine 60 mg capsule 60 mg PO QDAY 02/01/23 09/22/24 History gabapentin 300 mg capsule 300 mg PO Q8H 02/01/23 09/22/24 History isosorbide mononitrate 10 mg tablet 15 mg PO QDAY 02/01/23 09/22/24 History metoprolol tartrate 50 mg tablet 50 mg PO BID 02/01/23 09/22/24 History (Lopressor) omeprazole 20 mg capsule,delayed 20 mg PO BID 02/01/23 09/22/24 History release rimegepant 75 mg disintegrating 75 mg PO QDAY PRN migraine headache 02/01/23 09/22/24 History tablet (Nurtec ODT) spironolactone 25 mg tablet 25 mg PO QDAY 02/01/23 09/22/24 History acetaminophen 300 mg-codeine 30 mg 1 tab PO BID PRN pain #60 tabs 03/10/24 09/22/24 Rx tablet ferrous sulfate 325 mg (65 mg 325 mg PO DAILY 03/10/24 09/22/24 History iron) tablet (Feosol) fondaparinux 10 mg/0.8 mL 10 mg subcut DAILY 03/10/24 09/22/24 History subcutaneous solution syringe hydrochlorothiazide 25 mg tablet 25 mg PO DAILY 03/10/24 09/22/24 History secukinumab 150 mg/mL subcutaneous 300 mg subcut .QMONTH 03/10/24 09/22/24 History syringe (Cosentyx 300 mg/2 Syringes () levothyroxine 50 mcg tablet 50 mcg PO DAILY 04/11/24 09/22/24 History baclofen 10 mg tablet 10 mg PO TID #90 tabs 09/09/24 09/22/24 Rx meclizine 25 mg chewable tablet 25 mg PO DAILY PRN dizziness 09/16/24 09/22/24 History baclofen 10 mg tablet 10 mg PO TID PRN muscle spasm #90 12/31/24 Rx tabs tramadol 50 mg tablet 50 mg PO BID 12/31/24 12/31/24 History tramadol 50 mg tablet 50 mg PO BID PRN pain #14 tabs 12/31/24 Rx tramadol 50 mg tablet 50 mg PO BID PRN pain #60 tabs 03/04/25 Rx Allergies Allergy/AdvReac Type Severity Reaction Status Date / Time amoxicillin Allergy Severe Hives Verified 09/22/24 08:21 cefaclor (From Ceclor) Allergy Severe Hives Verified 09/22/24 08:21 ciprofloxacin (From Cipro) Allergy Severe Hives Verified 09/22/24 08:21 Estrogens Allergy Severe due to Verified 09/22/24 08:21 factor V Sulfa (Sulfonamide Allergy Severe Hives Verified 09/22/24 08:21 Antibiotics) tetanus and diphtheria Allergy Severe vomiting Verified 09/22/24 08:21 toxoids and fever kory Allergy Hives Uncoded 09/22/24 08:21 Exam Constitutional Documenting provider has reviewed patient's vital signs: yes Common normals: no apparent distress, oriented x3, healthy appearing, alert and well nourished General appearance: cooperative [facility] Common normals: normocephalic, hearing grossly normal bilaterally and moist oral mucous membranes Head and scalp: normocephalic Eye Common normals: PERRL Pupil: PERRL Neck & C-Spine Common normals: full ROM General: normal visual inspection Chest Common normals: inspection of chest normal Respiratory Common normals: normal respiratory effort, no retractions and no use of accessory muscles Back & Pelvis Lumbar spine/lower back: straight leg raise negative bilaterally Other: strength 5/5 in BLE sensation intact BLE unable to assess flexion, extension, rotation as pt is post-op lumbar surgery Neuro Common normals: oriented x3 Sensorium/orientation: alert Psych Common normals: mental status grossly normal, thought process normal, cooperative, affect normal, speech normal and activity/motor behavior normal Speech: normal speech Thought process: normal thought process Results Additional Findings Additional findings: If on a controlled substance or opioids, I have checked an [place] report on this patient and there are no aberrancies noted in the prescribing history.??If on a controlled substance or opioid a drug screen was completed and reviewed within the last year, and if there has not been a drug screen completed we ordered one today to monitor higher risk, state monitored pain medication use. As part of providing excellent, safe, comprehensive care, the following was completed at our patient's visit: 1. A medication reconciliation and review to ensure accurate knowledge of current/active medications, including asking our patients to inform us about any [id number] medications or herbal remedies/nutritional supplements/alternative remedies. 2. A review to specifically ensure our patients have had annual screening for screening for depression, screening for tobacco use, and screening for unhealthy alcohol use. For concerning screenings had a discussion with the patient, provided patient education, and recommended follow-up with primary care provider when appropriate. If patient noted with a risk of falling, they received education on strength, gait, and balance training to prevent future risk of falling. Portions of this note may have been carried over from the previous visit and updated as appropriate. Please note this office utilizes paper charting in addition to the electronic medical record. A list of current medications, vitals, and PMH is available there as the clinical staff outside of myself do not have access to [employer] charting during the clinic day operations. As part of providing quality comprehensive care the current medications, vitals, and PMH were reviewed in the paper chart. Assessment and Plan Assessment and Plan (1) Lumbar stenosis with neurogenic claudication: (2) Lumbar spondylosis: (3) Muscle spasm: Plan continue f/u with NS and PCP, continue baclofen 10mg TID PRN pain/spasms. f/u once cleared by NS
== END 2025-04-01 09:20 | disposition home or self-care (01) ==
LOC: PM 09:19
PROVIDERS: Visit Provider Nurse Practitioner
DX: M48.062 Spinal stenosis, lumbar region with neurogenic claudication (principal); M47.816 Spondylosis without myelopathy or radiculopathy, lumbar region; M62.838 Other muscle spasm
CPT/HCPCS: G0463